=== PATIENT | male | born 1940 | race Caucasian/White ===

== ENCOUNTER 2016-11-13 05:11 | Day surgery (SDC) | payer OTHER, MEDICARE ==
[2016-11-04 16:58] VITALS: BMI 31.3
[2016-11-13] MEDS ORDERED: LIDOCAINE HCL/PF 2% SDV 5ML VIAL ONE (12:36)
[2016-11-13] MEDS ORDERED: PROPOFOL 20 ML ONE (12:37)
[2016-11-13] MEDS ORDERED: ceFAZolin SODIUM 1 GM VIAL ONE (12:38)
[2016-11-13] MEDS ORDERED: ceFAZolin SODIUM 1 GM VIAL IVPB ONE (12:38)
[2016-11-13] MEDS ORDERED: oxyCODONE HCL 5 MG TABLET PO PRN (13:04)
[2016-11-13] MEDS ORDERED: ONDANSETRON 4 MG/2 ML VIAL IVPUSH PRN (13:04)
--- NOTE | 2016-11-13 13:09 | OP ---
Operative Note - Note: Operative Date: 11/13/16 Pre-Operative Diagnosis: Hematuria, Urethral Stricture, Ca of prostate Operation: Cysto and urethral dilatation Findings: Severe urethral stricture in the bulbar urethra Post-Operative Diagnosis: Same as Pre-op Surgeon: He Garcia Anesthesia: General Drains & Tubes with Location: 18 F bishop Operative Report Dictated: Yes
[2016-11-13] MEDS ORDERED: LACTATED RINGERS SOLUTION 1,000 ML IV SCH (13:15)
[2016-11-13 13:24] VITALS: TEMP 98
[2016-11-13 14:55] VITALS: PULSE 60
[2016-11-13 16:23] VITALS: BP 136/57
--- NOTE | 2016-11-14 11:16 | OP ---
DATE OF OPERATION: 11/13/2016 SURGEON: He Garcia MD ANESTHESIA: General. PREOPERATIVE DIAGNOSES: Gross hematuria, urethral stricture, carcinoma of the prostate, post-radiation cystitis. POSTOPERATIVE DIAGNOSES: Gross hematuria, urethral stricture, carcinoma of the prostate, post-radiation cystitis. PROCEDURE: Cystoscopy, urethral dilatation, and Banegas catheter . FINDINGS: Urethral meatus normal. Anterior urethra normal. Severe stricture of the bulbar urethra noted. Prostate is quite enlarged. Severe hemorrhagic prostatitis noted with multiple areas of bleeding. Bladder shows areas of trabeculation with cystitic changes. Occasionally, the bleeding was quite heavy. Visualization was very poor. Ureteral orifices normally located with clear efflux. DESCRIPTION OF PROCEDURE: Patient, in lithotomy position, under anesthesia, was prepped and draped in the usual manner. Cystoscopy performed, and the stricture was noted. Then, with sounds, urethra dilated up to 26-Jamaican in size. Then, cystoscopy was performed again. Multiple areas of bleeding noted from the prostatic urethra. Severe hemorrhagic prostatitis noted. The instruments were withdrawn. The Banegas was left indwelling. Patient tolerated the procedure well, left the operating room in satisfactory condition. HE GARCIA M.D. ROB/[id number]
== END 2016-11-13 15:55 | disposition home or self-care (01) ==
LOC: JASU-SURG 05:11
PROVIDERS: ATTEND Urology
PROC: 0T7D8ZZ Dilation of Urethra, Via Natural or Artificial Opening Endoscopic (ICD-10-PCS; principal; 2016-11-13 12:00)
DX: N35.9 Urethral stricture, unspecified (principal); C61 Malignant neoplasm of prostate; N30.41 Irradiation cystitis with hematuria; N32.89 Other specified disorders of bladder
CPT/HCPCS: 94760

== ENCOUNTER 2017-07-23 09:03 | Day surgery (SDC) | payer OTHER, MEDICARE ==
[2017-07-22 10:13] VITALS: BMI 31.0
[2017-07-23 09:32] LABS: INR 1.11 (0.82-1.09); PROTHROMBIN TIME (PATIENT) 12.5 SEC (9.98-11.88)
[2017-07-23] MEDS ORDERED: MIDAZOLAM HCL 2 MG/2 ML SINGLE DOSE VIAL ONE (11:47)
[2017-07-23] MEDS ORDERED: ceFAZolin SODIUM 1 GM VIAL IVPB ONE (11:50)
[2017-07-23] MEDS ORDERED: PROPOFOL 20 ML ONE (11:51)
[2017-07-23] MEDS ORDERED: SUCCINYLCHOLINE CHLORIDE 200 MG/10 ML VIAL ONE (11:51)
[2017-07-23] MEDS ORDERED: ceFAZolin SODIUM 1 GM VIAL ONE (11:59)
[2017-07-23] MEDS ORDERED: LIDOCAINE HCL/PF 2% SDV 5ML VIAL ONE (11:59)
[2017-07-23] MEDS ORDERED: DEXAMETHASONE SOD PHOSPHATE 4 MG/1 ML VIAL ONE (11:59)
[2017-07-23] MEDS ORDERED: BUPIVACAINE HCL/PF 0.5% (5MG/ML) 10 ML VIAL IJ ONE ×2 (12:07→12:37)
[2017-07-23] MEDS ORDERED: BACITRACIN 15 GM TUBE TOPICAL OINTMENT ONE ×2 (12:32→15:03)
[2017-07-23] MEDS ORDERED: ONDANSETRON 4 MG/2 ML VIAL IVPUSH PRN (12:41)
[2017-07-23] MEDS ORDERED: PROMETHAZINE HCL 25 MG/1 ML VIAL IVPUSH PRN (12:41)
[2017-07-23] MEDS ORDERED: oxyCODONE HCL 5 MG TABLET PO PRN (12:41)
[2017-07-23] MEDS ORDERED: LACTATED RINGERS SOLUTION 1,000 ML IV SCH (12:45)
--- NOTE | 2017-07-23 12:53 | OP ---
Operative Note - Note: Operative Date: 07/23/17 Pre-Operative Diagnosis: Phimosis Operation: Circumcision Findings: Severe Phimosis Post-Operative Diagnosis: Same as Pre-op Surgeon: He Garcia Anesthesia: General Specimens Removed: Foreskin Operative Report Dictated: Yes
--- NOTE | 2017-07-23 13:55 | OP ---
DATE OF OPERATION: 07/23/2017 SURGEON: He Garcia MD ANESTHESIA: General. PREOPERATIVE DIAGNOSIS: Severe degree of phimosis with balanitis. POSTOPERATIVE DIAGNOSIS: Severe degree of phimosis with balanitis. PROCEDURE: Circumcision. FINDINGS: Severe degree of phimosis noted. A ventral dorsal slit has to be performed to pull the foreskin away from the glans penis. DESCRIPTION OF PROCEDURE: Patient in supine position under general anesthesia was prepped and draped in the usual manner. A skin incision was made around the jimenez. Dorsal slit was performed and the excess prepuce was removed a centimeter away from the mucocutaneous junction. All the bleeding points were electrocoagulated. Then, a frenulectomy was performed, and the wound was approximated using 3-0 plain catgut. Bacitracin dressing applied. Patient was given Marcaine at the end. A pressure dressing was applied. Patient tolerated the procedure well, left the operating room in a satisfactory condition. Thiago ANDRADE/[id number]
[2017-07-23 15:41] VITALS: BP 121/67; TEMP 97.8
[2017-07-23 15:43] VITALS: PULSE 67
--- NOTE | 2017-07-25 09:00 | PATH ---
Surgical Pathology Report Patient Name: LYLE ANSARI Med. Rec. #: [id number] /Age/Gender: 1940 (Age: 77) / M Account: [id number] Location: [facility] Taken: 07/23/2017 Received: 07/23/2017 Reported: 07/25/2017 Physicians: He Garcia M.D. Specimen(s) Received FORESKIN Clinical History Phimosis Final Diagnosis FORESKIN, CIRCUMCISION: FORESKIN WITH CHRONIC INFLAMMATION CONSISTENT WITH PHIMOSIS. Electronically Signed Jarad Hirsch M.D. Gross Description Received in formalin labeled "foreskin," is a 4.3 x 3.2 x 0.5 cm casiano, irregular, wrinkled portion of skin, consistent with foreskin. No discrete epidermal lesions are identified. Hazmat Cdl Driver sections are submitted in one cassette. /07/23/201707/23/2017
== END 2017-07-23 15:20 | disposition home or self-care (01) ==
LOC: JASU-SURG 09:03
PROVIDERS: ATTEND Urology
PROC: 0VTTXZZ Resection of Prepuce, External Approach (ICD-10-PCS; principal; 2017-07-23 11:00)
DX: N47.1 Phimosis (principal); N48.1 Balanitis
CPT/HCPCS: 36415; 85610; 88304-TC; 94760

== ENCOUNTER 2017-11-30 12:04 | Inpatient (IN) | payer OTHER, MEDICARE ==
--- NOTE | 2017-11-30 12:16 | PDOC ---
History of Present Illness - General Chief Complaint: Pain, Acute Stated Complaint: ABDOMINAL PAIN/blood in bishop catherer Time Seen by Provider: 11/30/17 12:15 - History of Present Illness Initial Comments: 11/30/17 13:01 The patient is a 77 year old male with a history of HTN, HLD, CAD, Prostate cancer, urethral stricture who presents for evaluation of abdominal pain. The patient report acute onset worsening lower abdominal pain beginning around 5am this morning prompting his presentation to the ED for further evaluation. His notes that his bishop catheter had not been draining since the oil inspector. The patient notes that his catheter has been clogged before, but he has never experience pain this severe before. He otherwise denies fevers, chills, SOB, chest pain, nausea, vomiting or changes with bowel movements. Past History - Past Medical History Allergies/Adverse Reactions: Allergies Allergy/AdvReac Type Severity Reaction Status Date / Time strawberry Allergy Severe Swelling Verified 11/30/17 12:25 pepper (genus Capsicum) Allergy Unknown Verified 11/30/17 12:25 iohexol [From Omnipaque] Allergy Rash Verified 11/30/17 12:25 Home Medications: Ambulatory Orders Clopidogrel Bisulfate [Plavix -] 75 mg PO DAILY #0 tablet 08/11/12 Aspirin [ASA -] 81 mg PO DAILY #0 tab.chew 09/03/12 Folic Acid 1 mg PO DAILY 11/04/16 Acetaminophen [Tylenol .Regular Strength -] 650 mg PO Q6H 11/07/17 Tamsulosin HCl [Flomax] 0.4 mg PO DAILY 11/07/17 Atorvastatin Ca [Lipitor] 10 mg PO HS #30 tablet 11/25/17 Carvedilol [Coreg -] 3.125 mg PO BID #30 tablet 11/25/17 Clotrimazole/Betamet Diprop [Lotrisone -] 1 applic TP BID #1 tube 11/25/17 Furosemide [Lasix -] 20 mg PO DAILY #30 tablet 11/25/17 Hydrocortisone 2.5% Topical Cr [Anusol-Hc -] 1 applic TP BID #1 tube 11/25/17 Lidocaine 2% Jelly [Xylocaine 2% Jelly] 1 applic TP Q24H PRN #1 applic 11/25/17 Lisinopril [Prinivil] 2.5 mg PO DAILY #30 tablet 11/25/17 Phenazopyridine HCl [Pyridium -] 100 mg PO TID #60 tablet 11/25/17 Polyethylene Glycol 3350 [Miralax 119 gm Btl -] 17 gm PO DAILY #1 bottle Sennosides [Senna -] 2 tab PO HS PRN #30 tablet 11/25/17 Warfarin Na [Coumadin -] 5 mg PO DAILY@1800 #30 tablet 11/25/17 Anemia: No Asthma: No Cancer: Yes (PROSTATE CANCER 2011) Cardiac Disorders: Yes (coronary artery disease, cardiac bypass 10 years ago, Afib) CVA: No COPD: No CHF: No Dementia: No Diabetes: No GI Disorders: No Disorders: Yes (STONES, chronic UTIs) HTN: Yes Hypercholesterolemia: Yes Kidney Stones: Yes Liver Disease: No Seizures: No Thyroid Disease: No - Surgical History Abdominal Surgery: No Appendectomy: No Cardiac Surgery: Yes (open heart, 2 stents) Cholecystectomy: No Lung Surgery: No Neurologic Surgery: No Orthopedic Surgery: No - Immunization History Immunization Up to Date: Yes - Suicide/Smoking/Psychosocial Hx Smoking Status: Yes Smoking History: Former smoker Have you smoked in the past 12 months: No Number of Cigarettes Smoked Daily: 0 If you are a former smoker, when did you quit?: 12 YRS AGO 'Breaking Loose' booklet given: 11/10/17 Hx Alcohol Use: No Drug/Substance Use Hx: No Substance Use Type: None Hx Substance Use Treatment: No Review of Systems - Review of Systems Comments:: 11/30/17 13:06 Constitutional: No fevers, chills, fatigue, malaise HEENT: No Rhinorrhea, nasal congestion, visual changes Cardiovascular: No chest pain, syncope, palpitations, lightheadedness Respiratory: No Cough, SOB, Hemoptysis, Gastrointestinal: Lower abdominal pain. No Nausea, Vomiting, Constipation, Diarrhea, Melena Genitourinary: Inability to urinate, Hematuria. No Dysuria, Frequency, Urgency , Hesitancy, Flank pain Musculoskeletal: No Myalgia, arthralgia Skin: No rashes, itching, bruising, pallor Neurologic: No Headache, Dizziness, Numbness, Weakness, or Tingling Psychiatric: No Hallucinations. No SI or HI *Physical Exam - Physical Exam Comments: 11/30/17 13:07 General Appearance: Nourished. In Apparent Distress HEENT: No Pharyngeal Erythema, Tonsillar Exudate, Tonsillar Erythema Neck: No Cervical Lymphadenopathy Respiratory/Chest: Lungs Clear, Normal Breath Sounds. No Crackles, Rales, Rhonchi, Wheezing Cardiovascular: Regular Rhythm, Regular Rate. No Murmur, Gallops, Rubs Gastrointestinal/Abdominal: Normal Bowel Sounds, Soft. Diffuse discomfort with palpation with tenderness to palpation suprapubically with guarding. No Rebound , Musculoskeletal: No CVA Tenderness Extremity: Normal Capillary Refill Integumentary: Normal Color, Dry, Warm Neurologic: Fully Oriented, Alert, Normal Mood/Affect, Normal Response, ED Treatment Course - LABORATORY CBC & Chemistry Diagram: 11/30/17 13:00 11/30/17 13:05 Medical Decision Making - Medical Decision Making 11/30/17 13:08 The patient is a 77 year old male with a history of HTN, HLD, CAD, Prostate cancer, urethral stricture who presents for evaluation of abdominal pain. Bedside US demonstrates a significant amount of retained urine with a distended bladder. The patient's bishop catheter was flushed with a significant amount of clots removed. 800-900 ccs of urine drained to the bishop bag after flushing with significant improvement in the patient's symptoms. It is likely the patient's symptoms were due to urinary retention from a clogged bishop catheter. The patient is on coumadin and plavix and he has significant hematuria. We will obtain a cbc, cmp, coags, ua to evaluate further. We will continue to monitor and reassess while here in the ED. 11/30/17 14:44 CBC, cmp are unremarkable. Coags demonstrates an elevated INR to 3.41. The patient's catheter became clogged again and was again flushed and clots removed. We discussed the case with Urology who recommended that the patient's bishop catheter be replaced. However, we are not comfortable replacing the patient's catheter here in the ER given his persistent gross hematuria and persistent clot formation and given that we are able to flush the patient's catheter through his current bishop. Given the patient's persistent pain, we will observe the patient in the hospital overnight. We discussed the case with the admitting team who accepted the patient for observation admission. 11/30/17 16:18 The patient continued to develop clots and clog within the patient's current bishop with increasing difficulty flushing the patient's catheter. We successfully replaced the patient's bishop catheter with a 3 way bishop catheter and have started bladder irrigation at the request of urology. *DC/Admit/Observation/Transfer Diagnosis at time of Disposition: Stricture of bladder neck, Urinary retention Hematuria Qualifiers: Hematuria type: gross Qualified Code(s): R31.0 - Gross hematuria - Discharge Dispostion Condition at time of disposition: Stable Decision to Admit order: Yes - Referrals - Patient Instructions - Post Discharge Activity
--- NOTE | 2017-11-30 13:07 | PDOC ---
Attending Attestation - Resident Resident Name: Jef Martini - ED Attending Attestation I have performed the following: I have examined & evaluated the patient, The case was reviewed & discussed with the resident, I agree w/resident's findings & plan, Exceptions are as noted - HPI HPI: 11/30/17 13:23 The patient is a 77 year old male, with a significant past medical history of HTN, HLD, CAD, Prostate cancer, urethral stricture, recent admission for sepsis with ICU stay (DC 5 days ago with diaz) who presents to the emergency department with lower abdominal pain. As per patient, his symptoms onset at 5am this morning. As per patients , his diaz catheter has not been draining since this morning, she reports previous episodes of his catheter not draining. He denies any previous episode being as intense in nature. He reports associated hematuria. Pt takes coumadin and plavix. He denies any recent fevers, chills, headache or dizziness. He denies any recent nausea, vomit, diarrhea or constipation. He denies any recent chest pain or shortness of breath. He denies any recent dysuria, frequency, or urgency. Allergies: strawberry, pepper, iohexol Primary Care Physician: Dr. Benavides Urologist: Dr. Garcia - Physicial Exam PE: 11/30/17 13:24 agree with resident exam - Medical Decision Making 11/30/17 13:05 77yo M with MMP including recent admission for sepsis after ureteral stricture procedure, on coumadin and plavix presents to the ED with clogged diaz catheter with BRB into catheter. Diaz flushed and now has drained ~900cc of bloody urine. Will check UA for infection, labs, and consult urology. 11/30/17 14:40 INR elevated to 3.4, pt should skip coumadin today Diaz clotted off again, was flushed again and now draining Dr. Fink (covering for Dr. Leong) c/s by Dr. Martini for management of diaz, asked if we could replace it, but we are hesitant to replace diaz given recent ureteral stricture. Will discuss again. 11/30/17 15:[address] Fink who recommends we try to replace the diaz with a 3 way catheter and start cbi. He states the ureteral stricture should not be an issue as he was dilated. We will try to replace the diaz with a 3 way catheter but if we are unsuccessful, Dr. Fink will come in to replace it. Heart Score/ECG Review #1 11/30/17 14:54 Twelve-lead EKG was performed and reviewed by me. Normal sinus rhythm, rate 83. Normal axis. No ST elevations. One to [address] depressions in 1, aVL, V5, V6. When compared to EKG from 11/19/2017, no significant change.
[2017-11-30 13:16] LABS: EOS % 0.1 % (0-4.5); HEMATOCRIT 33.4 % (35.4-49); LYMPH % 2.6 % (8-40); MCH 32.7 pg (25.7-33.7); MEAN CELL VOLUME 99.2 fl (80-96); MEAN PLT VOLUME 7.9 fl (7.5-11.1); MONO % 8.3 % (3.8-10.2); PLATELET COUNT 323 K/MM3 (134-434); RBC 3.37 M/mm3 (4.00-5.60); RDW 14.3 % (11.9-15.9); URINE APPEARANCE CLOUDY; URINE BILIRUBIN NEGATIVE (<2.0 mg/dL); URINE COLOR RED; URINE GLUCOSE (UA) 1+ (NEGATIVE); URINE KETONE TRACE (NEGATIVE); URINE LEUK ESTERASE NEGATIVE (NEGATIVE); URINE NITRITE NEGATIVE (NEGATIVE); URINE UROBILINOGEN NEGATIVE mg/dL (0.2-1.0); WHITE BLOOD COUNT 12.6 K/mm3 (4.0-10.0)
[2017-11-30 13:20] LABS: URINE PROTEIN 3+ (NEGATIVE)
[2017-11-30] MEDS ORDERED: SODIUM CHLORIDE 0.9% 1000 ML INFUS.BAG IV ONE (13:21)
[2017-11-30 13:34] LABS: ALBUMIN 3.4 g/dl (3.4-5.0); ALK PHOS 157 U/L (45-117); ANION GAP 14 (8-16); BILIRUBIN,TOTAL 0.8 mg/dL (0.2-1.0); BLOOD UREA NITROGEN 21 mg/dL (7-18); CALCIUM 9.2 mg/dL (8.5-10.1); CHLORIDE 108 mmol/L (98-107); CO2 19 mmol/L (21-32); CREATININE 1.2 mg/dL (0.7-1.3); GLUCOSE,RANDOM 140 mg/dL (74-106); POTASSIUM 4.4 mmol/L (3.5-5.1); SGOT/AST 21 U/L (15-37); SGPT/ALT 26 U/L (12-78); SODIUM 141 mmol/L (136-145); TOT PROT 6.5 g/dl (6.4-8.2)
[2017-11-30 13:43] LABS: PROTHROMBIN TIME (PATIENT) 38.5 SEC (9.7-13.0)
[2017-11-30 13:45] LABS: ACTIVATED PTT 37.9 SECONDS (25.2-36.5)
[2017-11-30 13:47] LABS: INR 3.41 (0.83-1.09)
[2017-11-30] MEDS ORDERED: morphine SULFATE 4 MG/ML VIAL IVPUSH ONE (17:15)
[2017-11-30] MEDS ORDERED: POLYETHYLENE GLYCOL 3350 119 GM BTL PO PRN (18:05)
--- NOTE | 2017-11-30 18:39 | HOSP ---
Subjective - Review of Symptoms Events since last encounter: Nurse called MD to get help with irrigation of bladder after the urine catheter was clot and stop drianage pt was screaming of pain 10/10 Morphine 4 mg IV push was giben and 2 mg IV Q4hr PRN was ordered clots were removed by irrigation and suctioning and pt pain was relifed Nurse informed the urologist and the primary. Mook shaikh MD PGY2 Attending Dr Sinclair Physical Examination Vital Signs: Vital Signs Temperature 98.2 F 11/30/17 18:00 Pulse Rate 96 H 11/30/17 18:00 Respiratory Rate 20 11/30/17 18:00 Blood Pressure 114/48 11/30/17 18:00 O2 Sat by Pulse Oximetry (%) 99 11/30/17 15:00 Labs: CBC, BMP 11/30/17 13:00 11/30/17 13:05 Visit type - Emergency Visit Emergency Visit: Yes ED Registration Date: 11/30/17 Care time: The patient presented to the Emergency Department on the above date and was hospitalized for further evaluation of their emergent condition. - New Patient This patient is new to me today: Yes Date on this admission: 11/30/17 - Critical Care Critical Care patient: No
--- NOTE | 2017-11-30 18:50 | PN ---
Progress Note (short form) - Note Progress Note: UROLOGY NOTE. pt. with h/o bishop catheter after a urethral dilation last wk. he presents with gross,totel,painless hematutia.pt. on ac with a inr of 3.4 sugg.bishop with 3way and cbi with ns wide open. sugg. stopping ac in mean time.will f/u with you.
[2017-11-30] MEDS: ACETAMINOPHEN 325 MG TABLET (FP) PO SCH ×2 (19:05→23:41)
[2017-11-30] MEDS: MORPHINE SULFATE 2 MG/ML VIAL IVPUSH PRN (21:16)
[2017-11-30] MEDS ORDERED: SENNOSIDES 8.6MG TABLET (FP) PO PRN (22:00)
[2017-11-30] MEDS: CARVEDILOL 3.125 MG TABLET (FP) PO SCH (22:53)
[2017-11-30] MEDS: ATORVASTATIN CA 10 MG TABLET (FP) PO SCH (22:53)
[2017-12-01] MEDS ORDERED: MORPHINE SULFATE 2 MG/ML VIAL IVPUSH ONE (00:38)
[2017-12-01] MEDS: ACETAMINOPHEN 325 MG TABLET (FP) PO SCH ×3 (05:51→17:26)
[2017-12-01] MEDS: MORPHINE SULFATE 2 MG/ML VIAL IVPUSH PRN ×2 (06:36→11:18)
[2017-12-01 07:02] LABS: HEMATOCRIT 25.8 % (35.4-49); HEMOGLOBIN 8.8 GM/dL (11.7-16.9); MCH 34.1 pg (25.7-33.7); MCHC 34.2 g/dl (32.0-35.9); MEAN CELL VOLUME 99.6 fl (80-96); MEAN PLT VOLUME 8.2 fl (7.5-11.1); PLATELET COUNT 257 K/MM3 (134-434); RBC 2.59 M/mm3 (4.00-5.60); RDW 14.3 % (11.9-15.9); WHITE BLOOD COUNT 9.1 K/mm3 (4.0-10.0)
[2017-12-01 07:24] LABS: ALBUMIN 2.8 g/dl (3.4-5.0); ANION GAP 8 (8-16); BILIRUBIN,TOTAL 0.6 mg/dL (0.2-1.0); BLOOD UREA NITROGEN 24 mg/dL (7-18); CALCIUM 8.7 mg/dL (8.5-10.1); CHLORIDE 110 mmol/L (98-107); CO2 25 mmol/L (21-32); CREATININE 0.9 mg/dL (0.7-1.3); GLUCOSE,RANDOM 110 mg/dL (74-106); POTASSIUM 4.2 mmol/L (3.5-5.1); SGOT/AST 22 U/L (15-37); SGPT/ALT 28 U/L (12-78); SODIUM 143 mmol/L (136-145); TOT PROT 5.5 g/dl (6.4-8.2)
[2017-12-01 07:25] LABS: ALK PHOS 148 U/L (45-117)
[2017-12-01 07:40] LABS: PROTHROMBIN TIME (PATIENT) 47.9 SEC (9.7-13.0)
[2017-12-01 08:26] LABS: INR 4.24 (0.83-1.09)
[2017-12-01] MEDS ORDERED: TAMSULOSIN HCL 0.4 MG CAP.ER.24H (FP) PO SCH (08:30)
[2017-12-01] MEDS: CARVEDILOL 3.125 MG TABLET (FP) PO SCH ×2 (09:01→21:24)
[2017-12-01] MEDS ORDERED: CLOPIDOGREL BISULFATE 75 MG TABLET (FP) PO SCH (10:00)
[2017-12-01] MEDS ORDERED: FOLIC ACID 1 MG TABLET (FP) PO SCH (10:00)
[2017-12-01] MEDS ORDERED: FUROSEMIDE 20 MG TABLET (FP) PO SCH (10:00)
[2017-12-01] MEDS ORDERED: ASPIRIN 81 MG CHEWABLE TABLETS PO SCH (10:00)
[2017-12-01] MEDS ORDERED: LISINOPRIL 5 MG TABLET (FP) PO SCH (10:00)
[2017-12-01] MEDS ORDERED: morphine SULFATE 4 MG/ML VIAL IVPUSH ONE (11:58)
--- NOTE | 2017-12-01 12:02 | HP ---
Admitting History and Physical - Primary Care Physician PCP: Celine Goldberg - Admission History of Present Illness: patient well known to me from recent admission. Chart reviewed Pt is a 77 yr old man with PMHx CAD, CABG, s//p LCx stent 2014, PAD (s/p L SFA angioplasty 09/2017), HTN, hyperlipidemia, now admitted for Abdominal pain---- passing blood clots--- irrigated--Banegas--CBI Placed Aspirin Plavix and Coumadin held admitted 2 floor Patient seen and examined today In moderate to severe pain--just got morphine 2 mg dose. History Source: Patient Limitations to Obtaining History: No Limitations - Past Medical History Cardiovascular: Yes: AFIB, CAD, CHF, HTN, Hyperlipdemia, Other (PVD, CAD, Coronary Bypass, CAD, Stent lower left leg) Gastrointestinal: Yes: GERD Musculoskeletal: Yes: Osteoarthritis (Chronic Lower back pain), Other (OA) - Past Surgical History Past Surgical History: Yes: CABG, Stent (stents, both cardiac and LLE) - Smoking History Smoking history: Former smoker Have you smoked in the past 12 months: No Aproximately how many cigarettes per day: 0 If you are a former smoker, when did you quit?: 12 YRS AGO - Alcohol/Substance Use Hx Alcohol Use: No History of Substance Use: reports: None - Social History ADL: Independent History of Recent Travel: No Home Medications - Allergies Allergies/Adverse Reactions: Allergies Allergy/AdvReac Type Severity Reaction Status Date / Time strawberry Allergy Severe Swelling Verified 11/30/17 12:25 pepper (genus Capsicum) Allergy Unknown Verified 11/30/17 12:25 iohexol [From Omnipaque] Allergy Rash Verified 11/30/17 12:25 - Home Medications Home Medications: Ambulatory Orders Clopidogrel Bisulfate [Plavix -] 75 mg PO DAILY #0 tablet 08/11/12 Aspirin [ASA -] 81 mg PO DAILY #0 tab.chew 09/03/12 Folic Acid 1 mg PO DAILY 11/04/16 Acetaminophen [Tylenol .Regular Strength -] 650 mg PO Q6H 11/07/17 Tamsulosin HCl [Flomax] 0.4 mg PO DAILY 11/07/17 Atorvastatin Ca [Lipitor] 10 mg PO HS #30 tablet 11/25/17 Carvedilol [Coreg -] 3.125 mg PO BID #30 tablet 11/25/17 Clotrimazole/Betamet Diprop [Lotrisone -] 1 applic TP BID #1 tube 11/25/17 Furosemide [Lasix -] 20 mg PO DAILY #30 tablet 11/25/17 Hydrocortisone 2.5% Topical Cr [Anusol-Hc -] 1 applic TP BID #1 tube 11/25/17 Lidocaine 2% Jelly [Xylocaine 2% Jelly] 1 applic TP Q24H PRN #1 applic 11/25/17 Lisinopril [Prinivil] 2.5 mg PO DAILY #30 tablet 11/25/17 Phenazopyridine HCl [Pyridium -] 100 mg PO TID #60 tablet 11/25/17 Polyethylene Glycol 3350 [Miralax 119 gm Btl -] 17 gm PO DAILY #1 bottle Sennosides [Senna -] 2 tab PO HS PRN #30 tablet 11/25/17 Warfarin Na [Coumadin -] 5 mg PO DAILY@1800 #30 tablet 11/25/17 Family Disease History - Family Disease History Family Disease History: Heart Disease: Brother (hear disease), CA: Father ( hodgkins) Review of Systems - Review of Systems Eyes: reports: No Symptoms HENT: reports: No Symptoms Neck: reports: No Symptoms Cardiovascular: reports: No Symptoms Respiratory: reports: No Symptoms Gastrointestinal: reports: Abdominal Pain Genitourinary: reports: Hematuria, Pain Musculoskeletal: reports: No Symptoms Neurological: reports: No Symptoms Hematology/Lymphatic: reports: No Symptoms Psychiatric: reports: No Symptoms Pain Intensity: 10 Physical Examination Vital Signs: Vital Signs Temperature 98.3 F 12/01/17 06:00 Pulse Rate 67 12/01/17 06:00 Respiratory Rate 20 12/01/17 06:00 Blood Pressure 110/66 12/01/17 06:00 O2 Sat by Pulse Oximetry (%) 99 11/30/17 21:00 Constitutional: Yes: Moderate Distress Eyes: Yes: Conjunctiva Clear Neck: Yes: Supple Cardiovascular: Yes: Regular Rate and Rhythm Respiratory: Yes: CTA Bilaterally Gastrointestinal: Yes: Soft Renal/: Yes: Banegas Present, Other (cbi) Edema: No Neurological: Yes: Alert Labs: CBC, BMP 12/01/17 05:50 12/01/17 05:50 Imaging - Results EKG: Report Reviewed Problem List - Problems (1) Hematuria Code(s): R31.9 - HEMATURIA, UNSPECIFIED Qualifiers: Hematuria type: gross Qualified Code(s): R31.0 - Gross hematuria (2) Stricture of bladder neck Code(s): N32.0 - BLADDER-NECK OBSTRUCTION (3) Urinary retention Code(s): R33.9 - RETENTION OF URINE, UNSPECIFIED (4) Anxiety Code(s): F41.9 - ANXIETY DISORDER, UNSPECIFIED (5) Atrial fibrillation Code(s): I48.91 - UNSPECIFIED ATRIAL FIBRILLATION (6) History of coronary artery stent placement Code(s): Z95.5 - PRESENCE OF CORONARY ANGIOPLASTY IMPLANT AND GRAFT (7) Hx of CABG Code(s): Z95.1 - PRESENCE OF AORTOCORONARY BYPASS GRAFT (8) Obesity Code(s): E66.9 - OBESITY, UNSPECIFIED Assessment/Plan pain control will give extra 2 mg morphine does Change morphine to 4 mg every 3 hours when necessary Discussed with the urology--- will come to see patient right away Continue irrigation monitor labs Hold anticoagulation Antibiotics We'll also consult cardiology to follow Will consult ID also Will follow discussed with nursing staff Also
--- NOTE | 2017-12-01 14:07 | EKG ---
Test Reason : Blood Pressure : / mmHG Vent. Rate : 083 BPM Atrial Rate : 083 BPM P-R Int : 172 ms QRS Dur : 116 ms QT Int : 416 ms P-R-T Axes : -01 002 114 degrees QTc Int : 488 ms NORMAL SINUS RHYTHM INCOMPLETE LEFT BUNDLE BRANCH BLOCK ABNORMAL ECG WHEN COMPARED WITH ECG OF 19-NOV-2017 11:46, PREMATURE VENTRICULAR COMPLEXES ARE NO LONGER PRESENT Confirmed by NANCY TANNER MD ([id number]) on 12/01/2017 2:07:00 PM Referred By: Confirmed By:NANCY TANNER MD
[2017-12-01] MEDS ORDERED: cefTRIAXone SODIUM 1 GM VIAL ONE (14:44)
[2017-12-01] MEDS ORDERED: DEXTROSE 5%-WATER - 50 ML IVPB ONE (14:44)
[2017-12-01] MEDS ORDERED: CEFTRIAXONE 1 GM in DEXTROSE 5%-WATER - 50 ML IVPB SCH (14:45)
[2017-12-01] MEDS: morphine SULFATE 4 MG/ML VIAL IVPUSH PRN ×2 (18:00→21:25)
--- NOTE | 2017-12-01 18:36 | CON.CARD ---
Consult Consult Specialty:: cardiology Reason for Consultation:: CAD; AF; acute bleed - History of Present Illness Chief Complaint: A&Ox3; had intense pain suprapubic when trying to urinate1/2 hour ago.No chest pain. History of Present Illness: The patient is a 77 year old white male (rajiv Owusu) with a history of CAD--> CABG; LCx DEStent 2014, angioplasty LLE 2017, mild systolic LV dysfunction, HTN , HLD,, Prostate cancer, urethral stricture (admitted 11/10/17 for stricture; found to have collection of pus, with ensuing septic shock and transient EKG STT changes,) who presents for evaluation of abdominal pain. The patient report acute onset worsening lower abdominal pain beginning around 5am this morning, prompting his presentation to the ED for further evaluation. 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 The patient notes that his catheter has been clogged before, but he has never experienced pain this severe before. He otherwise denies fevers, chills, SOB, chest pain, nausea, vomiting or changes with bowel movements. - History Source History Provided By: Patient, Family Member, Medical Record Limitations to Obtaining History: No Limitations - Past Medical History Cardio/Vascular: Yes: AFIB, CAD, CHF, HTN, Hyperlipdemia, Other (PVD, CAD, Coronary Bypass, CAD, Stent lower left leg) Gastrointestinal: Yes: GERD Heme/Onc: Yes: Anemia Musculoskeletal: Yes: Osteoarthritis (Chronic Lower back pain) - Past Surgical History Past Surgical History: Yes: CABG, Stent (stents, both cardiac and LLE) - Alcohol/Substance Use Hx Alcohol Use: No History of Substance Use: reports: None - Smoking History Smoking history: Former smoker Have you smoked in the past 12 months: No Aproximately how many cigarettes per day: 0 If you are a former smoker, when did you quit?: 12 YRS AGO - Social History Usual Living Arrangement: With Spouse ADL: Independent History of Recent Travel: No Home Medications - Allergies Allergies/Adverse Reactions: Allergies Allergy/AdvReac Type Severity Reaction Status Date / Time strawberry Allergy Severe Swelling Verified 11/30/17 12:25 pepper (genus Capsicum) Allergy Unknown Verified 11/30/17 12:25 iohexol [From Omnipaque] Allergy Rash Verified 11/30/17 12:25 - Home Medications Home Medications: Ambulatory Orders Clopidogrel Bisulfate [Plavix -] 75 mg PO DAILY #0 tablet 08/11/12 Aspirin [ASA -] 81 mg PO DAILY #0 tab.chew 09/03/12 Folic Acid 1 mg PO DAILY 11/04/16 Acetaminophen [Tylenol .Regular Strength -] 650 mg PO Q6H 11/07/17 Tamsulosin HCl [Flomax] 0.4 mg PO DAILY 11/07/17 Atorvastatin Ca [Lipitor] 10 mg PO HS #30 tablet 11/25/17 Carvedilol [Coreg -] 3.125 mg PO BID #30 tablet 11/25/17 Clotrimazole/Betamet Diprop [Lotrisone -] 1 applic TP BID #1 tube 11/25/17 Furosemide [Lasix -] 20 mg PO DAILY #30 tablet 11/25/17 Hydrocortisone 2.5% Topical Cr [Anusol-Hc -] 1 applic TP BID #1 tube 11/25/17 Lidocaine 2% Jelly [Xylocaine 2% Jelly] 1 applic TP Q24H PRN #1 applic 11/25/17 Lisinopril [Prinivil] 2.5 mg PO DAILY #30 tablet 11/25/17 Phenazopyridine HCl [Pyridium -] 100 mg PO TID #60 tablet 11/25/17 Polyethylene Glycol 3350 [Miralax 119 gm Btl -] 17 gm PO DAILY #1 bottle Sennosides [Senna -] 2 tab PO HS PRN #30 tablet 11/25/17 Warfarin Na [Coumadin -] 5 mg PO DAILY@1800 #30 tablet 11/25/17 Family Disease History - Family Disease History Family Disease History: Heart Disease: Brother (hear disease), CA: Father ( hodgkins) Review of Systems - Review of Systems Constitutional: reports: Weakness Eyes: reports: No Symptoms HENT: reports: No Symptoms Neck: reports: No Symptoms Cardiovascular: reports: Chest Pain (mild-moderate, left anterior chest wall, "dull ache", constant) Genitourinary: reports: Dysuria, Hematuria, Urgency Musculoskeletal: reports: Muscle Weakness Neurological: reports: Weakness Hematology/Lymphatic: reports: Other ( bleed) - Risk Factors Known Risk Factors: Yes: Age, Gender, Hypercholesterolemia, Hypertension, Physical Inactivity, Other (CAD/ s/p CABG and PCI; PAD; PAF) Vital Signs: Vital Signs Temperature 97.7 F 12/01/17 15:00 Pulse Rate 70 12/01/17 15:00 Respiratory Rate 20 12/01/17 15:00 Blood Pressure 112/64 12/01/17 15:00 O2 Sat by Pulse Oximetry (%) 99 12/01/17 10:00 Constitutional: Yes: Anxious, Mild Distress Eyes: Yes: WNL HENT: Yes: WNL Neck: Yes: WNL Respiratory: Yes: Regular Gastrointestinal: Yes: Soft Renal/: Yes: Bishop Present Cardiovascular: Yes: Regular Rate and Rhythm JVD: No Carotid Bruit: No PMI: Displaced Heart Sounds: Yes: S1, Split S2 Musculoskeletal: Yes: Muscle Weakness Extremities: Yes: Cool Edema: No Peripheral Pulses WNL: No Peripheral Pulses: 1+ Left Doralis Pedis, 1+ Right Dorsalis Pedis Neurological: Yes: Alert, Oriented Psychiatric: Yes: WNL - Other Data Labs, Other Data: CBC, BMP 12/01/17 05:50 12/01/17 05:50 INR, PTT INR 4.24 (0.83-1.09) H* 12/01/17 05:50 Abnormal Lab Results 12/01/17 12/01/17 12/01/17 05:50 05:50 05:50 RBC 2.59 L Hgb 8.8 L Hct 25.8 L D MCV 99.6 H MCH 34.1 H PT with INR 47.90 H INR 4.24 H* Chloride 110 H BUN 24 H Random Glucose 110 H D Alkaline Phosphatase 148 H Total Protein 5.5 L Albumin 2.8 L Ejection Fraction %: LVEF > or = 40 % Problem List - Problems (1) Supratherapeutic INR Assessment/Plan: hold warfarin until necessary to keep INR 2-3. Code(s): R79.1 - ABNORMAL COAGULATION PROFILE (2) Hematuria Assessment/Plan: Copious amount of strongly blood-tinged urine with clots. Hb drop from 11.0 to 8.9 in past 24 hours (not dilutional; no IV fluids given). ASA, clopidogrel, and warfarin held since yesterday. Recommend ICU for close monitoring, given continuing hematuria, chest pain, CAD and PAD. Code(s): R31.9 - HEMATURIA, UNSPECIFIED Qualifiers: Hematuria type: gross Qualified Code(s): R31.0 - Gross hematuria (3) Stricture of bladder neck Code(s): N32.0 - BLADDER-NECK OBSTRUCTION (4) Urinary retention Code(s): R33.9 - RETENTION OF URINE, UNSPECIFIED (5) Acute on chronic systolic (congestive) heart failure Assessment/Plan: On carvedilol, lisinopril, furosemide. F/u BUN/Cr, electrolytes, daily weight, Is and Os. Code(s): I50.23 - ACUTE ON CHRONIC SYSTOLIC (CONGESTIVE) HEART FAILURE (6) Anxiety Code(s): F41.9 - ANXIETY DISORDER, UNSPECIFIED (7) Atrial fibrillation Code(s): I48.91 - UNSPECIFIED ATRIAL FIBRILLATION (8) Chest pain Assessment/Plan: EKG: NSR: nonspecific STT changes (no significant change from that of last admission 11/10/17). TNI pending. Ongoing chest pain (also present on last admission). Antiplatelets, warfarin have had to be held due to hematuria, drop in Hb, supratherapeutic INR. Code(s): R07.9 - CHEST PAIN, UNSPECIFIED (9) HTN (hypertension) Code(s): I10 - ESSENTIAL (PRIMARY) HYPERTENSION (10) Herpes simplex Code(s): B00.9 - HERPESVIRAL INFECTION, UNSPECIFIED (11) History of coronary artery stent placement Code(s): Z95.5 - PRESENCE OF CORONARY ANGIOPLASTY IMPLANT AND GRAFT (12) Hx of CABG Code(s): Z95.1 - PRESENCE OF AORTOCORONARY BYPASS GRAFT (13) Hyperlipidemia Code(s): E78.5 - HYPERLIPIDEMIA, UNSPECIFIED (14) PAD (peripheral artery disease) Code(s): I73.9 - PERIPHERAL VASCULAR DISEASE, UNSPECIFIED
--- NOTE | 2017-12-01 19:12 | HOSP ---
Physical Examination Vital Signs: Vital Signs Temperature 97.7 F 12/01/17 15:00 Pulse Rate 70 12/01/17 15:00 Respiratory Rate 20 12/01/17 18:30 Blood Pressure 112/64 12/01/17 15:00 O2 Sat by Pulse Oximetry (%) 99 12/01/17 18:30 Labs: CBC, BMP 12/01/17 05:50 12/01/17 05:50 Hospitalist Encounter Assessment: Mr Waddell is a 77 year old male with a significant past medical history of CAD, CABG, PAD (s/p L SFA angioplasty 09/2017), HTN, hyperlipidemia, and ST changes seen on EKG on last admission. He comes to the ED for severe suprapubic pain and a non draining bishop catheter. On admission a CBI was placed for continuous irrigation. Patient has since been noted to be draining theo red blood urine with clots. Aspirin Plavix, Coumadin are being held for gross hematuria. Patient recently here on 11/10/17 for ureteral stricture and was found to have a collection of pus and was in the ICU for septic shock. On review of labs: INR 4.24, hmg dropped from 11->8 without any fluid hydration. Patient continues to c/o of discomfort of suprapublic region and is frequently medicated for pain with morphine: GENERAL APPEARANCE: stable vitals, well nourished, well developed NEURO: awake, alert, pallorous - in pain/discomfort. ABDOMEN: distended, soft, non tender LUNGS: clear to auscultation anteriorly UPPER EXT: equal. PSYCHE: normal mood and affect Plan: Stat CBC now EKG ordered by cardiology Trend troponins Lactic acid stat discussed with cardiology Consider closer monitoring in the ICU for acute bleeding episode as pt has extensive cardiac history, anticoagulation currently being held
[2017-12-01 20:50] LABS: HEMATOCRIT 25.7 % (35.4-49); HEMOGLOBIN 8.7 GM/dL (11.7-16.9); MCH 33.5 pg (25.7-33.7); MCHC 33.9 g/dl (32.0-35.9); MEAN CELL VOLUME 98.8 fl (80-96); MEAN PLT VOLUME 8.3 fl (7.5-11.1); PLATELET COUNT 264 K/MM3 (134-434); RBC 2.61 M/mm3 (4.00-5.60); RDW 14.1 % (11.9-15.9); WHITE BLOOD COUNT 8.7 K/mm3 (4.0-10.0)
[2017-12-01] MEDS: ATORVASTATIN CA 10 MG TABLET (FP) PO SCH (21:24)
[2017-12-01] MEDS ORDERED: PT OWN MED DRAWER 7, Y5N ONE (21:54)
[2017-12-01] MEDS ORDERED: CHLORHEXIDINE GLUCONATE 4% CLEANSER FOR DECOLONIZATION TP SCH (22:45)
[2017-12-01] MEDS ORDERED: POLYETHYLENE GLYCOL 3350 119 GM BTL PO PRN (23:55)
[2017-12-01] MEDS ORDERED: SENNOSIDES 8.6MG TABLET (FP) PO PRN (23:55)
[2017-12-02] MEDS: morphine SULFATE 4 MG/ML VIAL IVPUSH PRN ×3 (00:17→11:03)
[2017-12-02] MEDS: ACETAMINOPHEN 325 MG TABLET (FP) PO SCH ×4 (00:17→17:04)
[2017-12-02] MEDS: MUPIROCIN 2% TOPICAL OINTMENT FOR DECOLONIZATION NS SCH ×2 (00:18→09:03)
[2017-12-02] MEDS ORDERED: morphine SULFATE 4 MG/ML VIAL IVPUSH ONE (01:45)
[2017-12-02 06:24] LABS: BASO % 0.5 % (0-2.0); EOS % 0.9 % (0-4.5); HEMATOCRIT 24.3 % (35.4-49); HEMOGLOBIN 8.3 GM/dL (11.7-16.9); LYMPH % 10.5 % (8-40); MCH 33.9 pg (25.7-33.7); MCHC 34.1 g/dl (32.0-35.9); MEAN CELL VOLUME 99.2 fl (80-96); MEAN PLT VOLUME 8.2 fl (7.5-11.1); MONO % 10.5 % (3.8-10.2); NEUT % 77.6 % (42.8-82.8); PLATELET COUNT 242 K/MM3 (134-434); RBC 2.45 M/mm3 (4.00-5.60); WHITE BLOOD COUNT 9.2 K/mm3 (4.0-10.0)
[2017-12-02 06:47] LABS: CHLORIDE 107 mmol/L (98-107); POTASSIUM 4.5 mmol/L (3.5-5.1); SODIUM 140 mmol/L (136-145)
[2017-12-02 06:51] LABS: ALBUMIN 2.8 g/dl (3.4-5.0); ALK PHOS 223 U/L (45-117); ANION GAP 7 (8-16); BILIRUBIN,TOTAL 0.5 mg/dL (0.2-1.0); BLOOD UREA NITROGEN 22 mg/dL (7-18); CALCIUM 8.9 mg/dL (8.5-10.1); CO2 26 mmol/L (21-32); CREATININE 0.8 mg/dL (0.7-1.3); GLUCOSE,RANDOM 120 mg/dL (74-106); SGOT/AST 33 U/L (15-37); SGPT/ALT 39 U/L (12-78); TOT PROT 5.6 g/dl (6.4-8.2)
[2017-12-02] MEDS ORDERED: oxyCODONE HCL 5 MG TABLET PO PRN ×3 (08:18→21:11)
[2017-12-02] MEDS ORDERED: cefTRIAXone SODIUM 1 GM VIAL ONE (08:29)
[2017-12-02] MEDS ORDERED: DEXTROSE 5%-WATER - 50 ML IVPB ONE ×2 (08:29→20:08)
[2017-12-02] MEDS ORDERED: TAMSULOSIN HCL 0.4 MG CAP.ER.24H (FP) PO SCH ×2 (08:30→11:34)
[2017-12-02] MEDS ORDERED: CARVEDILOL 3.125 MG TABLET (FP) PO SCH (10:00)
[2017-12-02] MEDS ORDERED: LISINOPRIL 5 MG TABLET (FP) PO SCH (10:00)
[2017-12-02] MEDS ORDERED: FOLIC ACID 1 MG TABLET (FP) PO SCH (10:00)
[2017-12-02] MEDS ORDERED: CEFTRIAXONE 1 GM in DEXTROSE 5%-WATER - 50 ML IVPB SCH (10:00)
[2017-12-02] MEDS ORDERED: FUROSEMIDE 20 MG TABLET (FP) PO SCH (10:00)
--- NOTE | 2017-12-02 10:57 | PN ---
Progress Note, Physician Chief Complaint: on CBI pain is better Pt examined in ICU HCT decreased c/o chest discomfort - chronic since last admission - Current Medication List Current Medications: Active Medications Acetaminophen (Tylenol -) 650 mg PO Q6HPO [facility] Last Admin: 12/02/17 06:06 Dose: 650 mg Atorvastatin Calcium (Lipitor -) 10 mg PO HS [facility] Carvedilol (Coreg -) 3.125 mg PO BID [facility] Last Admin: 12/02/17 09:02 Dose: 3.125 mg Chlorhexidine Gluconate (Hibiclens For Decolonization -) 1 applic TP HS [facility] Last Admin: 12/01/17 22:00 Dose: 1 applic Folic Acid (Folic Acid -) 1 mg PO DAILY [facility] Last Admin: 12/02/17 09:02 Dose: 1 mg Furosemide (Lasix -) 20 mg PO DAILY [facility] Last Admin: 12/02/17 09:02 Dose: 20 mg Ceftriaxone Sodium 1 gm/ (Dextrose) 50 mls @ 200 mls/hr IVPB DAILY [facility]; Protocol Last Admin: 12/02/17 09:02 Dose: 200 mls/hr Lisinopril (Prinivil) 2.5 mg PO DAILY [facility] Last Admin: 12/02/17 09:02 Dose: 2.5 mg Morphine Sulfate (Morphine Sulfate) 4 mg IVPUSH Q3H PRN PRN Reason: PAIN LEVEL 6-10 Last Admin: 12/02/17 07:40 Dose: 4 mg Mupirocin (Bactroban Ointment (For Decolonization) -) 1 applic NS BID [facility] Stop: 12/06/17 22:44 Last Admin: 12/02/17 09:03 Dose: 1 applic Oxycodone HCl (Roxicodone -) 5 mg PO Q6H PRN PRN Reason: PAIN LEVEL 4 - 6 Last Admin: 12/02/17 08:29 Dose: 5 mg Polyethylene Glycol (Miralax (For Daily Use) -) 17 gm PO Q24H PRN PRN Reason: CONSTIPATION Senna (Senna -) 2 tab PO HS PRN PRN Reason: CONSTIPATION Tamsulosin HCl (Flomax -) 0.4 mg PO 0830 [facility] Last Admin: 12/02/17 07:40 Dose: 0.4 mg - Objective Vital Signs: Vital Signs Temperature 98.7 F 12/02/17 10:00 Pulse Rate 75 12/02/17 10:00 Respiratory Rate 20 12/02/17 10:00 Blood Pressure 102/68 12/02/17 10:00 O2 Sat by Pulse Oximetry (%) 99 12/02/17 10:00 Constitutional: Yes: No Distress Cardiovascular: Yes: Pulse Irregular Respiratory: Yes: CTA Bilaterally Gastrointestinal: Yes: Normal Bowel Sounds, Soft. No: Tenderness Edema: No Labs: CBC, BMP 12/02/17 05:30 12/02/17 05:30 INR, PTT INR 4.24 (0.83-1.09) H* 12/01/17 05:50 Problem List - Problems (1) Hematuria Code(s): R31.9 - HEMATURIA, UNSPECIFIED Qualifiers: Hematuria type: gross Qualified Code(s): R31.0 - Gross hematuria (2) Stricture of bladder neck Code(s): N32.0 - BLADDER-NECK OBSTRUCTION (3) Supratherapeutic INR Code(s): R79.1 - ABNORMAL COAGULATION PROFILE (4) Urinary retention Code(s): R33.9 - RETENTION OF URINE, UNSPECIFIED (5) Anxiety Code(s): F41.9 - ANXIETY DISORDER, UNSPECIFIED (6) Atrial fibrillation Code(s): I48.91 - UNSPECIFIED ATRIAL FIBRILLATION (7) Chest pain Code(s): R07.9 - CHEST PAIN, UNSPECIFIED Assessment/Plan PLAN CBI clearing now HCT - to monitor, may need to transfuse if needed eval high risk for TURP- will not undergo at this time INR is high- do not give Vit K spoke with ICU team pain control may need to restart Plavix as he had a recent stent placed
[2017-12-02] MEDS ORDERED: morphine SULFATE 4 MG/ML VIAL IVPUSH PRN (11:38)
--- NOTE | 2017-12-02 12:04 | PN ---
Teaching Attending Note Name of Resident: Nighat Escalona ATTENDING PHYSICIAN STATEMENT I saw and evaluated the patient. I reviewed the resident's note and discussed the case with the resident. I agree with the resident's findings and plan as documented. SUBJECTIVE: Patient seen and examined in the ICU. Awake and alert. Intermittent significant pain due to process, better with Oxycodone/MS. Reports mild intermittent chest discomfort. H&H down trending, but stabilizing. No SOB. Intake & Output 11/29/17 11/30/17 12/01/17 12/02/17 23:59 23:59 23:59 23:59 Intake Total 7500 64456 42908 Output Total 23823 35199 7200 Balance -4450 9050 5400 Weight 208 lb 195 lb 2 oz Last Vital Signs Temp Pulse Resp BP Pulse Ox 98.7 F 75 20 102/68 99 12/02/17 10:00 12/02/17 10:00 12/02/17 10:00 12/02/17 10:00 12/02/17 10:00 Active Medications Acetaminophen (Tylenol -) 650 mg PO Q6HPO [facility] Last Admin: 12/02/17 06:06 Dose: 650 mg Atorvastatin Calcium (Lipitor -) 10 mg PO HS [facility] Carvedilol (Coreg -) 3.125 mg PO BID [facility] Last Admin: 12/02/17 09:02 Dose: 3.125 mg Chlorhexidine Gluconate (Hibiclens For Decolonization -) 1 applic TP HS [facility] Last Admin: 12/01/17 22:00 Dose: 1 applic Folic Acid (Folic Acid -) 1 mg PO DAILY [facility] Last Admin: 12/02/17 09:02 Dose: 1 mg Furosemide (Lasix -) 20 mg PO DAILY [facility] Last Admin: 12/02/17 09:02 Dose: 20 mg Ceftriaxone Sodium 1 gm/ (Dextrose) 50 mls @ 200 mls/hr IVPB DAILY [facility]; Protocol Last Admin: 12/02/17 09:02 Dose: 200 mls/hr Lisinopril (Prinivil) 2.5 mg PO DAILY [facility] Last Admin: 12/02/17 09:02 Dose: 2.5 mg Morphine Sulfate (Morphine Sulfate) 4 mg IVPUSH Q3H PRN PRN Reason: Pain Level 7-10 Mupirocin (Bactroban Ointment (For Decolonization) -) 1 applic NS BID [facility] Stop: 12/06/17 22:44 Last Admin: 12/02/17 09:03 Dose: 1 applic Oxycodone HCl (Roxicodone -) 10 mg PO Q6H PRN PRN Reason: PAIN LEVEL 4 - 6 Polyethylene Glycol (Miralax (For Daily Use) -) 17 gm PO Q24H PRN PRN Reason: CONSTIPATION Senna (Senna -) 2 tab PO HS PRN PRN Reason: CONSTIPATION Tamsulosin HCl (Flomax -) 0.8 mg PO 0830 [facility] Constitutional: Yes: Awake and alert, Mild Distress due to pain Eyes: Yes: WNL HENT: Yes: WNL Neck: Yes: WNL Respiratory: Yes: Regular Gastrointestinal: Yes: Soft Renal/: Yes: [place] Present Cardiovascular: Yes: Regular Rate and Rhythm JVD: No Carotid Bruit: No PMI: Displaced Heart Sounds: Yes: S1, Split S2 Musculoskeletal: Yes: intact strength Extremities: Yes: Cool Edema: No Peripheral Pulses WNL: No Peripheral Pulses: 1+ Left Doralis Pedis, 1+ Right Dorsalis Pedis Neurological: Yes: Alert, Oriented Psychiatric: Yes: WNL Laboratory Results - last 24 hr 12/01/17 12/01/17 12/01/17 19:20 19:20 20:25 WBC 8.7 RBC 2.61 L Hgb 8.7 L Hct 25.7 L MCV 98.8 H MCH 33.5 MCHC 33.9 RDW 14.1 Plt Count 264 MPV 8.3 Absolute Neuts (auto) Neutrophils % Lymphocytes % Monocytes % Eosinophils % Basophils % Nucleated RBC % Sodium Potassium Chloride Carbon Dioxide Anion Gap BUN Creatinine Creat Clearance w eGFR Random Glucose Lactic Acid Calcium Total Bilirubin AST ALT Alkaline Phosphatase Troponin I 0.09 H D B-Natriuretic Peptide 5206.85 H Total Protein Albumin Blood Type Antibody Screen 12/01/17 12/01/17 12/02/17 20:25 21:50 05:30 WBC 9.2 RBC 2.45 L Hgb 8.3 L Hct 24.3 L MCV 99.2 H MCH 33.9 H MCHC 34.1 RDW 14.0 Plt Count 242 MPV 8.2 Absolute Neuts (auto) 7.1 Neutrophils % 77.6 Lymphocytes % 10.5 D Monocytes % 10.5 H Eosinophils % 0.9 D Basophils % 0.5 Nucleated RBC % 0 Sodium Potassium Chloride Carbon Dioxide Anion Gap BUN Creatinine Creat Clearance w eGFR Random Glucose Lactic Acid 1.5 Calcium Total Bilirubin AST ALT Alkaline Phosphatase Troponin I B-Natriuretic Peptide Total Protein Albumin Blood Type O NEGATIVE Antibody Screen Negative 12/02/17 05:30 WBC RBC Hgb Hct MCV MCH MCHC RDW Plt Count MPV Absolute Neuts (auto) Neutrophils % Lymphocytes % Monocytes % Eosinophils % Basophils % Nucleated RBC % Sodium 140 Potassium 4.5 Chloride 107 Carbon Dioxide 26 Anion Gap 7 L BUN 22 H Creatinine 0.8 Creat Clearance w eGFR > 60 Random Glucose 120 H Lactic Acid Calcium 8.9 Total Bilirubin 0.5 AST 33 D ALT 39 D Alkaline Phosphatase 223 H D Troponin I B-Natriuretic Peptide Total Protein 5.6 L Albumin 2.8 L Blood Type Antibody Screen Problem List - Problems (1) Supratherapeutic INR Code(s): R79.1 - ABNORMAL COAGULATION PROFILE (2) Hematuria Assessment/Plan: Code(s): R31.9 - HEMATURIA, UNSPECIFIED Qualifiers: Hematuria type: gross Qualified Code(s): R31.0 - Gross hematuria (3) Stricture of bladder neck Code(s): N32.0 - BLADDER-NECK OBSTRUCTION (4) Urinary retention Code(s): R33.9 - RETENTION OF URINE, UNSPECIFIED (5) Acute on chronic systolic (congestive) heart failure Assessment/Plan: Code(s): I50.23 - ACUTE ON CHRONIC SYSTOLIC (CONGESTIVE) HEART FAILURE (6) Anxiety Code(s): F41.9 - ANXIETY DISORDER, UNSPECIFIED (7) Atrial fibrillation Code(s): I48.91 - UNSPECIFIED ATRIAL FIBRILLATION (8) Chest pain Assessment/Plan: Code(s): R07.9 - CHEST PAIN, UNSPECIFIED (9) HTN (hypertension) Code(s): I10 - ESSENTIAL (PRIMARY) HYPERTENSION (10) Herpes simplex Code(s): B00.9 - HERPESVIRAL INFECTION, UNSPECIFIED (11) History of coronary artery stent placement Code(s): Z95.5 - PRESENCE OF CORONARY ANGIOPLASTY IMPLANT AND GRAFT (12) Hx of CABG Code(s): Z95.1 - PRESENCE OF AORTOCORONARY BYPASS GRAFT (13) Hyperlipidemia Code(s): E78.5 - HYPERLIPIDEMIA, UNSPECIFIED (14) PAD (peripheral artery disease) Code(s): I73.9 - PERIPHERAL VASCULAR DISEASE, UNSPECIFIED Transfusion to 9mg/dL O2 as needed CBI per Urology Pain control Cardiac meds as ordered by Cardiology Need to discuss possibility of restarting his anti-platelet at some point Daily Rocephin Cardiac Telemetry monitoring Dr Tucker Critical care time spent in reviewing chart, evaluating patient and formulating plan - 36 minutes.
[2017-12-02 12:50] LABS: HEMATOCRIT 25.6 % (35.4-49); HEMOGLOBIN 8.6 GM/dL (11.7-16.9); MCH 33.3 pg (25.7-33.7); MCHC 33.6 g/dl (32.0-35.9); MEAN CELL VOLUME 99.2 fl (80-96); MEAN PLT VOLUME 8.3 fl (7.5-11.1); PLATELET COUNT 283 K/MM3 (134-434); RBC 2.58 M/mm3 (4.00-5.60); RDW 13.9 % (11.9-15.9)
[2017-12-02 12:58] LABS: INR 2.54 (0.83-1.09); PROTHROMBIN TIME (PATIENT) 28.7 SEC (9.7-13.0)
--- NOTE | 2017-12-02 14:01 | PN ---
Physical Exam: SUBJECTIVE: Patient seen and examined at bedside. patient is in a lot of intermittent suprapubic pain and senses exactly when a clot is passing through because the pain is so severe and he experiences nausea, howeve. He put out about 2L of theo red blood from the bishop catheter. he is also complaining of Left sided chest discomfort that has been there since his last admission a month ago. he denies any shortness of breath. His hemoglobin on admission was 11 and it is currently at 8.7. as per cardiology all AC is being held as of now , and will reassess in 24 hours. OBJECTIVE: Vital Signs Period Temp Pulse Resp BP Sys/Gardner Pulse Ox Last 24 Hr 97.7 F-99.1 F 70-85 18-26 102-168/58-109 99-99 GENERAL: The patient is awake, alert, and fully oriented, in acute distress. LUNGS: Breath sounds equal, clear to auscultation bilaterally, no wheezes, no crackles, no accessory muscle use. HEART: Regular rate and rhythm, S1, S2 without murmur, rub or gallop. ABDOMEN: Soft, +suprapubic tenderness EXTREMITIES: 2+ pulses, warm, well-perfused, no edema. NEUROLOGICAL: Cranial nerves II through XII grossly intact. Normal speech, gait not observed. PSYCH: Normal mood, normal affect. SKIN: Warm, dry, normal turgor, no rashes or lesions noted Laboratory Results - last 24 hr 12/01/17 12/01/17 12/01/17 19:20 19:20 20:25 WBC 8.7 RBC 2.61 L Hgb 8.7 L Hct 25.7 L MCV 98.8 H MCH 33.5 MCHC 33.9 RDW 14.1 Plt Count 264 MPV 8.3 Absolute Neuts (auto) Neutrophils % Lymphocytes % Monocytes % Eosinophils % Basophils % Nucleated RBC % PT with INR INR Sodium Potassium Chloride Carbon Dioxide Anion Gap BUN Creatinine Creat Clearance w eGFR Random Glucose Lactic Acid Calcium Total Bilirubin AST ALT Alkaline Phosphatase Troponin I 0.09 H D B-Natriuretic Peptide 5206.85 H Total Protein Albumin Blood Type Antibody Screen 12/01/17 12/01/17 12/02/17 20:25 21:50 05:30 WBC 9.2 RBC 2.45 L Hgb 8.3 L Hct 24.3 L MCV 99.2 H MCH 33.9 H MCHC 34.1 RDW 14.0 Plt Count 242 MPV 8.2 Absolute Neuts (auto) 7.1 Neutrophils % 77.6 Lymphocytes % 10.5 D Monocytes % 10.5 H Eosinophils % 0.9 D Basophils % 0.5 Nucleated RBC % 0 PT with INR INR Sodium Potassium Chloride Carbon Dioxide Anion Gap BUN Creatinine Creat Clearance w eGFR Random Glucose Lactic Acid 1.5 Calcium Total Bilirubin AST ALT Alkaline Phosphatase Troponin I B-Natriuretic Peptide Total Protein Albumin Blood Type O NEGATIVE Antibody Screen Negative 12/02/17 12/02/17 12/02/17 05:30 11:57 11:57 WBC 8.0 RBC 2.58 L Hgb 8.6 L Hct 25.6 L MCV 99.2 H MCH 33.3 MCHC 33.6 RDW 13.9 Plt Count 283 MPV 8.3 Absolute Neuts (auto) Neutrophils % Lymphocytes % Monocytes % Eosinophils % Basophils % Nucleated RBC % PT with INR 28.70 H INR 2.54 H Sodium 140 Potassium 4.5 Chloride 107 Carbon Dioxide 26 Anion Gap 7 L BUN 22 H Creatinine 0.8 Creat Clearance w eGFR > 60 Random Glucose 120 H Lactic Acid Calcium 8.9 Total Bilirubin 0.5 AST 33 D ALT 39 D Alkaline Phosphatase 223 H D Troponin I B-Natriuretic Peptide Total Protein 5.6 L Albumin 2.8 L Blood Type Antibody Screen Active Medications Generic Name Dose Route Start Last Admin Trade Name Freq PRN Reason Stop Dose Admin Acetaminophen 650 mg 12/02/17 00:00 12/02/17 13:01 Tylenol - PO 650 mg Q6HPO JORJE Administration Atorvastatin Calcium 10 mg 12/02/17 22:00 Lipitor - PO HS JORJE Carvedilol 3.125 mg 12/02/17 10:00 12/02/17 09:02 Coreg - PO 3.125 mg BID JORJE Administration Chlorhexidine Gluconate 1 applic 12/01/17 22:45 12/01/17 22:00 Hibiclens For Decolonization - TP 1 applic HS JORJE Administration Folic Acid 1 mg 12/02/17 10:00 12/02/17 09:02 Folic Acid - PO 1 mg DAILY JORJE Administration Furosemide 20 mg 12/02/17 10:00 12/02/17 09:02 Lasix - PO 20 mg DAILY JORJE Administration Ceftriaxone Sodium 1 gm/ 50 mls @ 200 mls/hr 12/02/17 10:00 12/02/17 09:02 Dextrose IVPB 200 mls/hr DAILY JORJE Administration Protocol Lisinopril 2.5 mg 12/02/17 10:00 12/02/17 09:02 Prinivil PO 2.5 mg DAILY JORJE Administration Morphine Sulfate 4 mg 12/02/17 11:38 Morphine Sulfate IVPUSH Q3H PRN Pain Level 7-10 Mupirocin 1 applic 12/01/17 22:45 12/02/17 09:03 Bactroban Ointment (For Decolonization) - NS 12/06/17 22:44 1 applic BID JORJE Administration Oxycodone HCl 10 mg 12/02/17 11:38 Roxicodone - PO Q6H PRN PAIN LEVEL 4 - 6 Polyethylene Glycol 17 gm 12/01/17 23:55 Miralax (For Daily Use) - PO Q24H PRN CONSTIPATION Senna 2 tab 12/01/17 23:55 Senna - PO HS PRN CONSTIPATION Tamsulosin HCl 0.8 mg 12/02/17 11:34 Flomax - PO 0830 [facility] ASSESSMENT/PLAN: 77 y/o male with PMH of HTN, CAD ( s/p bypass 10 years ago), HLD, prostate ca, urethral stricture (11/10/2017) presents to the ED with complaints of intense suprapubic pain and with associated hematuria. Cardio: HTN/HLD/CAD -on patients last admission from 11/[address] changes on EKG and is still currently having discomfort -given patients hematuria and dropping H/H, holding AC as per cardiology -as per cardio: will reassess in am regarding restarting antiplatelet therapy -patients most recent INR is 2.54 -continue with home antihypertensives -monitor patients chest discomfort : patient had recent cystoscopy for urethral stricture (11/10) which was complicated by septic shock -patient no longer having hematuria; most recent H/H: 8.3/24.3 -pain regimen: oxycodone and morphine -monitor pain and urine output -increased patients flomax to 0.8 -c/w ceftriaxone 1gram daily -monitor H/H F/E/N: not on standing fluids replete electrolytes when necessary sodium/restricted diet dispo: transfer to telemetry Problem List - Problems (1) Hematuria Code(s): R31.9 - HEMATURIA, UNSPECIFIED Qualifiers: Hematuria type: gross Qualified Code(s): R31.0 - Gross hematuria (2) Supratherapeutic INR Code(s): R79.1 - ABNORMAL COAGULATION PROFILE (3) Atrial fibrillation Code(s): I48.91 - UNSPECIFIED ATRIAL FIBRILLATION (4) Chest pain Code(s): R07.9 - CHEST PAIN, UNSPECIFIED Visit type - Emergency Visit Emergency Visit: Yes ED Registration Date: 11/30/17 Care time: The patient presented to the Emergency Department on the above date and was hospitalized for further evaluation of their emergent condition. - New Patient This patient is new to me today: Yes Date on this admission: 12/02/17 - Critical Care Critical Care patient: Yes Total Critical Care Time (in minutes): 35 Critical Care Statement: The care of this patient involved high complexity decision making to prevent further life threatening deterioration of the patient 's condition and/or to evaluate & treat vital organ system(s) failure or risk of failure.
--- NOTE | 2017-12-02 18:40 | CON.ID ---
Consult Consult Specialty:: infectious diseases Referred by:: Reason for Consultation:: sepsis,uti - History of Present Illness Chief Complaint: abd pain,hematuria History of Present Illness: 77 yr old man with PMHx CAD, CABG, s//p LCx stent 2014, PAD (s/p L SFA angioplasty 09/2017), HTN, hyperlipidemia, underwent cystoscopy with urethrotomy for uretharal stricture. patient couple of days back post cystoscopy had a very rough course was in the icu in septic shock was treated and stabilized after also having uti patient was then send to longterm patient IN THE [facility] SEVERE ABD PAIN AND HEAMTURIA AND WAS VERY ILL LOOKING AND WAS SEND TO THE ICU He was given bladder irrigation adn abx and currently patient looks much better and stable and looks like his hematuria has resolved says abd pain much better - History Source History Provided By: Patient Limitations to Obtaining History: No Limitations - Past Medical History Cardio/Vascular: Yes: AFIB, CAD, CHF, HTN, Hyperlipdemia, Other (PVD, CAD, Coronary Bypass, CAD, Stent lower left leg) Gastrointestinal: Yes: GERD Musculoskeletal: Yes: Osteoarthritis (Chronic Lower back pain) - Past Surgical History Past Surgical History: Yes: CABG, Stent (stents, both cardiac and LLE) - Alcohol/Substance Use Hx Alcohol Use: No History of Substance Use: reports: None - Smoking History Smoking history: Former smoker Have you smoked in the past 12 months: No Aproximately how many cigarettes per day: 0 If you are a former smoker, when did you quit?: 12 YRS AGO - Social History Usual Living Arrangement: With Spouse ADL: Independent History of Recent Travel: No Home Medications - Allergies Allergies/Adverse Reactions: Allergies Allergy/AdvReac Type Severity Reaction Status Date / Time strawberry Allergy Severe Swelling Verified 11/30/17 12:25 pepper (genus Capsicum) Allergy Unknown Verified 11/30/17 12:25 iohexol [From Omnipaque] Allergy Rash Verified 11/30/17 12:25 - Home Medications Home Medications: Ambulatory Orders Clopidogrel Bisulfate [Plavix -] 75 mg PO DAILY #0 tablet 08/11/12 Aspirin [ASA -] 81 mg PO DAILY #0 tab.chew 09/03/12 Folic Acid 1 mg PO DAILY 11/04/16 Acetaminophen [Tylenol .Regular Strength -] 650 mg PO Q6H 11/07/17 Tamsulosin HCl [Flomax] 0.4 mg PO DAILY 11/07/17 Atorvastatin Ca [Lipitor] 10 mg PO HS #30 tablet 11/25/17 Carvedilol [Coreg -] 3.125 mg PO BID #30 tablet 11/25/17 Clotrimazole/Betamet Diprop [Lotrisone -] 1 applic TP BID #1 tube 11/25/17 Furosemide [Lasix -] 20 mg PO DAILY #30 tablet 11/25/17 Hydrocortisone 2.5% Topical Cr [Anusol-Hc -] 1 applic TP BID #1 tube 11/25/17 Lidocaine 2% Jelly [Xylocaine 2% Jelly] 1 applic TP Q24H PRN #1 applic 11/25/17 Lisinopril [Prinivil] 2.5 mg PO DAILY #30 tablet 11/25/17 Phenazopyridine HCl [Pyridium -] 100 mg PO TID #60 tablet 11/25/17 Polyethylene Glycol 3350 [Miralax 119 gm Btl -] 17 gm PO DAILY #1 bottle Sennosides [Senna -] 2 tab PO HS PRN #30 tablet 11/25/17 Warfarin Na [Coumadin -] 5 mg PO DAILY@1800 #30 tablet 11/25/17 Family Disease History - Family Disease History Family Disease History: Heart Disease: Brother (hear disease), CA: Father ( hodgkins) Review of Systems - Review of Systems Constitutional: reports: No Symptoms Eyes: reports: No Symptoms HENT: reports: No Symptoms Neck: reports: No Symptoms Cardiovascular: reports: No Symptoms Respiratory: reports: No Symptoms Gastrointestinal: reports: No Symptoms Genitourinary: reports: Hematuria, Other (foleys) Musculoskeletal: reports: No Symptoms Integumentary: reports: No Symptoms Neurological: reports: No Symptoms Endocrine: reports: No Symptoms Hematology/Lymphatic: reports: No Symptoms Psychiatric: reports: No Symptoms Physical Exam Vital Signs: Vital Signs Temperature 98.4 F 12/02/17 14:00 Pulse Rate 79 12/02/17 17:00 Respiratory Rate 19 12/02/17 18:00 Blood Pressure 118/62 12/02/17 17:00 O2 Sat by Pulse Oximetry (%) 99 12/02/17 18:00 Constitutional: Yes: Well Nourished, No Distress, Calm Eyes: Yes: Conjunctiva Clear HENT: Yes: Atraumatic, Normocephalic Neck: Yes: Supple, Trachea Midline Cardiovascular: Yes: Regular Rate and Rhythm Respiratory: Yes: Regular, CTA Bilaterally Gastrointestinal: Yes: Normal Bowel Sounds, Soft Renal/: Yes: Hematuria, Other (foleys) Musculoskeletal: Yes: WNL Extremities: Yes: WNL Neurological: Yes: Alert, Oriented Psychiatric: Yes: Alert, Oriented Labs: CBC, BMP 12/02/17 11:57 12/02/17 05:30 Assessment/Plan Problem List - Problems (1) Hematuria Code(s): R31.9 - HEMATURIA, UNSPECIFIED Qualifiers: Hematuria type: gross Qualified Code(s): R31.0 - Gross hematuria (2) Stricture of bladder neck Code(s): N32.0 - BLADDER-NECK OBSTRUCTION (3) Supratherapeutic INR Code(s): R79.1 - ABNORMAL COAGULATION PROFILE (4) Urinary retention Code(s): R33.9 - RETENTION OF URINE, UNSPECIFIED (5) Anxiety Code(s): F41.9 - ANXIETY DISORDER, UNSPECIFIED (6) Atrial fibrillation Code(s): I48.91 - UNSPECIFIED ATRIAL FIBRILLATION (7) Chest pain Code(s): R07.9 - CHEST PAIN, UNSPECIFIED plan cx results of urine noted will stop ceftriaxone will switch to zosyn bladder wash rest as per the icu urology evaluation rest as per the team cc 40 min
[2017-12-02] MEDS ORDERED: PIPERACILLIN/TAZOB 3.375 GM 3.375 GM in DEXTROSE 5%-WATER - 50 ML IVPB SCH (18:45)
[2017-12-02] MEDS ORDERED: PIPERACILLIN/TAZOBACTAM 3.375 GM VIAL IVPB ONE (20:08)
[2017-12-02] MEDS: ATORVASTATIN CA 10 MG TABLET (FP) PO SCH (21:41)
[2017-12-02] MEDS: CARVEDILOL 3.125 MG TABLET (FP) PO SCH (21:41)
[2017-12-02] MEDS ORDERED: ATORVASTATIN CA 10 MG TABLET (FP) PO SCH (22:00)
[2017-12-03] MEDS: morphine SULFATE 4 MG/ML VIAL IVPUSH PRN ×2 (02:12→21:37)
[2017-12-03] MEDS ORDERED: PIPERACILLIN/TAZOBACTAM 3.375 GM VIAL IVPB ONE ×3 (04:45→16:09)
[2017-12-03] MEDS ORDERED: DEXTROSE 5%-WATER 100 ML IVPB ONE ×3 (04:45→16:09)
[2017-12-03] MEDS: PIPERACILLIN/TAZOB 3.375 GM 3.375 GM in DEXTROSE 5%-WATER 100 ML IVPB SCH ×3 (04:51→18:01)
[2017-12-03] MEDS: ACETAMINOPHEN 325 MG TABLET (FP) PO SCH ×3 (06:36→18:03)
[2017-12-03 07:43] LABS: BASO % 0.7 % (0-2.0); EOS % 4.3 % (0-4.5); HEMATOCRIT 23.7 % (35.4-49); HEMOGLOBIN 8.1 GM/dL (11.7-16.9); LYMPH % 15.3 % (8-40); MCH 33.9 pg (25.7-33.7); MCHC 34.3 g/dl (32.0-35.9); MEAN PLT VOLUME 7.8 fl (7.5-11.1); MONO % 11.4 % (3.8-10.2); NEUT % 68.3 % (42.8-82.8); PLATELET COUNT 241 K/MM3 (134-434); RBC 2.39 M/mm3 (4.00-5.60); WHITE BLOOD COUNT 7.1 K/mm3 (4.0-10.0)
[2017-12-03 08:01] LABS: INR 1.88 (0.83-1.09); PROTHROMBIN TIME (PATIENT) 21.2 SEC (9.7-13.0)
[2017-12-03 08:36] LABS: CHLORIDE 106 mmol/L (98-107); POTASSIUM 4.7 mmol/L (3.5-5.1); SODIUM 139 mmol/L (136-145)
[2017-12-03 08:47] LABS: ALBUMIN 2.7 g/dl (3.4-5.0); ALK PHOS 261 U/L (45-117); ANION GAP 7 (8-16); BILIRUBIN,TOTAL 0.3 mg/dL (0.2-1.0); BLOOD UREA NITROGEN 22 mg/dL (7-18); CO2 26 mmol/L (21-32); GLUCOSE,RANDOM 122 mg/dL (74-106); MAGNESIUM 1.9 mg/dL (1.8-2.4); PHOSPHOROUS 3.9 mg/dL (2.5-4.9); SGOT/AST 35 U/L (15-37); SGPT/ALT 49 U/L (12-78); TOT PROT 5.6 g/dl (6.4-8.2)
[2017-12-03] MEDS: TAMSULOSIN HCL 0.4 MG CAP.ER.24H (FP) PO SCH (10:08)
[2017-12-03] MEDS: FUROSEMIDE 20 MG TABLET (FP) PO SCH (10:08)
[2017-12-03] MEDS: CARVEDILOL 3.125 MG TABLET (FP) PO SCH ×2 (10:09→21:37)
[2017-12-03] MEDS: FOLIC ACID 1 MG TABLET (FP) PO SCH (10:10)
[2017-12-03] MEDS: LISINOPRIL 5 MG TABLET (FP) PO SCH (10:10)
--- NOTE | 2017-12-03 10:49 | PN ---
Progress Note (short form) - Note Progress Note: pt seen/ examined feels much better pain much better urine getting clearer afebrile Vital Signs Temp 98.6 F 12/03/17 05:30 Pulse 75 12/03/17 05:30 Resp 20 12/03/17 05:30 BP 109/57 12/03/17 05:30 Pulse Ox 98 12/03/17 00:00 Intake & Output 12/02/17 12/02/17 12/03/17 11:59 23:59 11:59 Intake Total 36762 9400 9000 Output Total 7200 8400 8000 Balance 5400 1000 1000 Weight 195 lb 2 oz Intake: Oral 600 400 CBI Intake 60290 9000 9000 Output: Urine 7200 8400 8000 Banegas 7200 8400 8000 Other: Voiding Method Indwelling Catheter Indwelling Catheter Indwelling Catheter Active Medications Acetaminophen (Tylenol -) 650 mg PO Q6HPO [facility] Last Admin: 12/03/17 06:36 Dose: 650 mg Atorvastatin Calcium (Lipitor -) 10 mg PO HS [facility] Last Admin: 12/02/17 21:41 Dose: 10 mg Carvedilol (Coreg -) 3.125 mg PO BID [facility] Last Admin: 12/03/17 10:09 Dose: 3.125 mg Folic Acid (Folic Acid -) 1 mg PO DAILY [facility] Last Admin: 12/03/17 10:10 Dose: 1 mg Furosemide (Lasix -) 20 mg PO DAILY [facility] Last Admin: 12/03/17 10:08 Dose: 20 mg Piperacillin Sod/Tazobactam (Sod 3.375 gm/ Dextrose) 100 mls @ 200 mls/hr IVPB Q8H-IV JORJE; Protocol Last Admin: 12/03/17 10:15 Dose: 200 mls/hr Lisinopril (Prinivil) 2.5 mg PO DAILY [facility] Last Admin: 12/03/17 10:10 Dose: 2.5 mg Morphine Sulfate (Morphine Sulfate) 4 mg IVPUSH Q3H PRN PRN Reason: Pain Level 7-10 Last Admin: 12/03/17 02:12 Dose: 4 mg Oxycodone HCl (Roxicodone -) 10 mg PO Q6H PRN PRN Reason: PAIN LEVEL 4 - 6 Last Admin: 12/03/17 07:58 Dose: 10 mg Polyethylene Glycol (Miralax (For Daily Use) -) 17 gm PO Q24H PRN PRN Reason: CONSTIPATION Senna (Senna -) 2 tab PO HS PRN PRN Reason: CONSTIPATION Tamsulosin HCl (Flomax -) 0.8 mg PO DAILY@0830 JORJE Last Admin: 12/03/17 10:08 Dose: 0.8 mg CBC, BMP 12/03/17 06:22 12/03/17 06:22 Microbiology 11/30/17 13:00 Urine Culture - Final Urine - Urine Clean Catch Enterobacter Aerogenes Enterococcus Faecalis Physical Examination Constitutional: Yes: awake/ comfortable Eyes: Yes: Conjunctiva Clear Neck: Yes: Supple. no jvd Cardiovascular: Yes: Regular Rate and Rhythm Respiratory: Yes: CTA Bilaterally Gastrointestinal: Yes: Soft/ non tender Renal/: Yes: Banegas Present, Other (cbi) Edema: No Neurological: Yes: Alert Imaging - Results EKG: Report Reviewed Assessment/Plan better Abx f/u cultures monitor h/h transfuse prn a/c on hold Plavix to be restarted when ok with gu- cardiology daily oob - chair physical therapy will follow discussed with nursing staff also. Problem List - Problems (1) Hematuria Code(s): R31.9 - HEMATURIA, UNSPECIFIED Qualifiers: Hematuria type: gross Qualified Code(s): R31.0 - Gross hematuria (2) Stricture of bladder neck Code(s): N32.0 - BLADDER-NECK OBSTRUCTION (3) Urinary retention Code(s): R33.9 - RETENTION OF URINE, UNSPECIFIED (4) Anxiety Code(s): F41.9 - ANXIETY DISORDER, UNSPECIFIED (5) Atrial fibrillation Code(s): I48.91 - UNSPECIFIED ATRIAL FIBRILLATION (6) History of coronary artery stent placement Code(s): Z95.5 - PRESENCE OF CORONARY ANGIOPLASTY IMPLANT AND GRAFT (7) Hx of CABG Code(s): Z95.1 - PRESENCE OF AORTOCORONARY BYPASS GRAFT (8) Obesity Code(s): E66.9 - OBESITY, UNSPECIFIED
--- NOTE | 2017-12-03 13:50 | EKG ---
Test Reason : Blood Pressure : / mmHG Vent. Rate : 074 BPM Atrial Rate : 074 BPM P-R Int : 184 ms QRS Dur : 114 ms QT Int : 414 ms P-R-T Axes : 003 004 112 degrees QTc Int : 459 ms SINUS RHYTHM WITH PREMATURE ATRIAL COMPLEXES WITH ABERRANT CONDUCTION INCOMPLETE LEFT BUNDLE BRANCH BLOCK NONSPECIFIC ST AND T WAVE ABNORMALITY ABNORMAL ECG WHEN COMPARED WITH ECG OF 01-DEC-2017 19:06, PREMATURE VENTRICULAR COMPLEXES ARE NO LONGER PRESENT ABERRANT CONDUCTION IS NOW PRESENT Confirmed by SWATHI LOPEZ MD ([id number]) on 12/03/2017 1:50:43 PM Referred By: SWATHI LOPEZ Confirmed By:SWATHI LOPEZ MD
--- NOTE | 2017-12-03 14:01 | PN ---
Progress Note, Physician History of Present Illness: patient stable transferred to [facility] feels much better hematuria resolved - Current Medication List Current Medications: Active Medications Acetaminophen (Tylenol -) 650 mg PO Q6HPO [facility] Last Admin: 12/03/17 11:51 Dose: 650 mg Atorvastatin Calcium (Lipitor -) 10 mg PO HS [facility] Last Admin: 12/02/17 21:41 Dose: 10 mg Carvedilol (Coreg -) 3.125 mg PO BID [facility] Last Admin: 12/03/17 10:09 Dose: 3.125 mg Folic Acid (Folic Acid -) 1 mg PO DAILY [facility] Last Admin: 12/03/17 10:10 Dose: 1 mg Furosemide (Lasix -) 20 mg PO DAILY [facility] Last Admin: 12/03/17 10:08 Dose: 20 mg Piperacillin Sod/Tazobactam (Sod 3.375 gm/ Dextrose) 100 mls @ 200 mls/hr IVPB Q8H-IV [facility]; Protocol Last Admin: 12/03/17 10:15 Dose: 200 mls/hr Lisinopril (Prinivil) 2.5 mg PO DAILY [facility] Last Admin: 12/03/17 10:10 Dose: 2.5 mg Morphine Sulfate (Morphine Sulfate) 4 mg IVPUSH Q3H PRN PRN Reason: Pain Level 7-10 Last Admin: 12/03/17 02:12 Dose: 4 mg Oxycodone HCl (Roxicodone -) 10 mg PO Q6H PRN PRN Reason: PAIN LEVEL 4 - 6 Last Admin: 12/03/17 07:58 Dose: 10 mg Polyethylene Glycol (Miralax (For Daily Use) -) 17 gm PO Q24H PRN PRN Reason: CONSTIPATION Senna (Senna -) 2 tab PO HS PRN PRN Reason: CONSTIPATION Tamsulosin HCl (Flomax -) 0.8 mg PO DAILY@0830 [facility] Last Admin: 12/03/17 10:08 Dose: 0.8 mg - Objective Vital Signs: Vital Signs Temperature 98.4 F 12/03/17 08:00 Pulse Rate 76 12/03/17 08:00 Respiratory Rate 18 12/03/17 08:00 Blood Pressure 123/57 12/03/17 08:00 O2 Sat by Pulse Oximetry (%) 97 12/03/17 08:00 Constitutional: Yes: No Distress, Calm Cardiovascular: Yes: Regular Rate and Rhythm Respiratory: Yes: Regular, CTA Bilaterally Gastrointestinal: Yes: Normal Bowel Sounds, Soft Musculoskeletal: Yes: WNL Extremities: Yes: WNL Neurological: Yes: Alert, Oriented Labs: CBC, BMP 12/03/17 06:22 12/03/17 06:22 INR, PTT INR 1.88 (0.83-1.09) H 12/03/17 06:22 Assessment/Plan Problem List - Problems (1) Hematuria Code(s): R31.9 - HEMATURIA, UNSPECIFIED Qualifiers: Hematuria type: gross Qualified Code(s): R31.0 - Gross hematuria (2) Stricture of bladder neck Code(s): N32.0 - BLADDER-NECK OBSTRUCTION (3) Supratherapeutic INR Code(s): R79.1 - ABNORMAL COAGULATION PROFILE (4) Urinary retention Code(s): R33.9 - RETENTION OF URINE, UNSPECIFIED (5) Anxiety Code(s): F41.9 - ANXIETY DISORDER, UNSPECIFIED (6) Atrial fibrillation Code(s): I48.91 - UNSPECIFIED ATRIAL FIBRILLATION (7) Chest pain Code(s): R07.9 - CHEST PAIN, UNSPECIFIED 8 uti plan continue current mgmt continue abx rest as per the team as per urology
[2017-12-03] MEDS: ATORVASTATIN CA 10 MG TABLET (FP) PO SCH (21:37)
[2017-12-04] MEDS: ACETAMINOPHEN 325 MG TABLET (FP) PO SCH ×4 (00:47→18:25)
[2017-12-04] MEDS: PIPERACILLIN/TAZOB 3.375 GM 3.375 GM in DEXTROSE 5%-WATER 100 ML IVPB SCH ×3 (01:00→18:23)
[2017-12-04 06:38] LABS: BASO % 0.6 % (0-2.0); EOS % 4.6 % (0-4.5); HEMATOCRIT 24.1 % (35.4-49); HEMOGLOBIN 8.2 GM/dL (11.7-16.9); MCH 33.8 pg (25.7-33.7); MEAN CELL VOLUME 99.3 fl (80-96); MONO % 9.8 % (3.8-10.2); PLATELET COUNT 258 K/MM3 (134-434); RBC 2.42 M/mm3 (4.00-5.60); WHITE BLOOD COUNT 7.9 K/mm3 (4.0-10.0)
[2017-12-04 07:23] LABS: CHLORIDE 109 mmol/L (98-107); POTASSIUM 4.5 mmol/L (3.5-5.1); SODIUM 142 mmol/L (136-145)
[2017-12-04 07:40] LABS: ALBUMIN 2.8 g/dl (3.4-5.0); ALK PHOS 251 U/L (45-117); ANION GAP 9 (8-16); BILIRUBIN,TOTAL 0.3 mg/dL (0.2-1.0); BLOOD UREA NITROGEN 25 mg/dL (7-18); CALCIUM 8.6 mg/dL (8.5-10.1); CO2 24 mmol/L (21-32); CREATININE 0.9 mg/dL (0.7-1.3); GLUCOSE,RANDOM 107 mg/dL (74-106); SGOT/AST 22 U/L (15-37); SGPT/ALT 44 U/L (12-78); TOT PROT 5.8 g/dl (6.4-8.2)
[2017-12-04] MEDS ORDERED: DEXTROSE 5%-WATER 100 ML IVPB ONE ×2 (09:26→18:20)
[2017-12-04] MEDS ORDERED: PT OWN MED DRAWER 7, Y5N ONE (09:26)
[2017-12-04] MEDS ORDERED: PIPERACILLIN/TAZOBACTAM 3.375 GM VIAL IVPB ONE ×2 (09:26→18:20)
[2017-12-04] MEDS: TAMSULOSIN HCL 0.4 MG CAP.ER.24H (FP) PO SCH (10:03)
[2017-12-04] MEDS: FUROSEMIDE 20 MG TABLET (FP) PO SCH (10:03)
[2017-12-04] MEDS: LISINOPRIL 5 MG TABLET (FP) PO SCH (10:04)
[2017-12-04] MEDS: FOLIC ACID 1 MG TABLET (FP) PO SCH (10:04)
[2017-12-04] MEDS: CARVEDILOL 3.125 MG TABLET (FP) PO SCH ×2 (10:05→21:23)
--- NOTE | 2017-12-04 10:19 | PN ---
Progress Note, Physician History of Present Illness: patient stable doing well no complaints still with some pain at the tip of penis no hematuria - Current Medication List Current Medications: Active Medications Acetaminophen (Tylenol -) 650 mg PO Q6HPO [facility] Last Admin: 12/04/17 06:37 Dose: 650 mg Atorvastatin Calcium (Lipitor -) 10 mg PO HS [facility] Last Admin: 12/03/17 21:37 Dose: 10 mg Carvedilol (Coreg -) 3.125 mg PO BID [facility] Last Admin: 12/04/17 10:05 Dose: 3.125 mg Folic Acid (Folic Acid -) 1 mg PO DAILY [facility] Last Admin: 12/04/17 10:04 Dose: 1 mg Furosemide (Lasix -) 20 mg PO DAILY [facility] Last Admin: 12/04/17 10:03 Dose: 20 mg Piperacillin Sod/Tazobactam (Sod 3.375 gm/ Dextrose) 100 mls @ 200 mls/hr IVPB Q8H-IV [facility]; Protocol Last Admin: 12/04/17 10:02 Dose: 200 mls/hr Lisinopril (Prinivil) 2.5 mg PO DAILY [facility] Last Admin: 12/04/17 10:04 Dose: 2.5 mg Morphine Sulfate (Morphine Sulfate) 4 mg IVPUSH Q3H PRN PRN Reason: Pain Level 7-10 Last Admin: 12/03/17 21:37 Dose: 4 mg Oxycodone HCl (Roxicodone -) 10 mg PO Q6H PRN PRN Reason: PAIN LEVEL 4 - 6 Last Admin: 12/03/17 07:58 Dose: 10 mg Polyethylene Glycol (Miralax (For Daily Use) -) 17 gm PO Q24H PRN PRN Reason: CONSTIPATION Senna (Senna -) 2 tab PO HS PRN PRN Reason: CONSTIPATION Tamsulosin HCl (Flomax -) 0.8 mg PO DAILY@0830 [facility] Last Admin: 12/04/17 10:03 Dose: 0.8 mg - Objective Vital Signs: Vital Signs Temperature 98.6 F 12/04/17 08:35 Pulse Rate 70 12/04/17 08:35 Respiratory Rate 18 12/04/17 08:35 Blood Pressure 130/68 12/04/17 08:35 O2 Sat by Pulse Oximetry (%) 99 12/04/17 09:00 Constitutional: Yes: No Distress, Calm Cardiovascular: Yes: Regular Rate and Rhythm Respiratory: Yes: Regular, CTA Bilaterally Gastrointestinal: Yes: Normal Bowel Sounds, Soft Genitourinary: Yes: Banegas Present Musculoskeletal: Yes: WNL Extremities: Yes: WNL Neurological: Yes: Alert, Oriented Psychiatric: Yes: Alert, Oriented Labs: CBC, BMP 12/04/17 05:00 12/04/17 05:00 INR, PTT INR 1.88 (0.83-1.09) H 12/03/17 06:22 Assessment/Plan Problem List - Problems (1) Hematuria Code(s): R31.9 - HEMATURIA, UNSPECIFIED Qualifiers: Hematuria type: gross Qualified Code(s): R31.0 - Gross hematuria (2) Stricture of bladder neck Code(s): N32.0 - BLADDER-NECK OBSTRUCTION (3) Supratherapeutic INR Code(s): R79.1 - ABNORMAL COAGULATION PROFILE (4) Urinary retention Code(s): R33.9 - RETENTION OF URINE, UNSPECIFIED (5) Anxiety Code(s): F41.9 - ANXIETY DISORDER, UNSPECIFIED (6) Atrial fibrillation Code(s): I48.91 - UNSPECIFIED ATRIAL FIBRILLATION (7) Chest pain Code(s): R07.9 - CHEST PAIN, UNSPECIFIED 8 uti plan continue current mgmt continue abx rest as per the team as per urology
[2017-12-04] MEDS ORDERED: LIDOCAINE HCL 2% JELLY (30 ML/TUBE) TP PRN (12:15)
--- NOTE | 2017-12-04 12:23 | PN ---
Progress Note (short form) - Note Progress Note: pt seen/ examined. Awake/ comfortable c/c- pain at tip of penis-- cbi- cleared discussed with cardiology/ gu-- ok to restart on a/c - no plavix yet otherwise comfortable afebrile Vital Signs Temp 98.6 F 12/04/17 08:35 Pulse 70 12/04/17 08:35 Resp 18 12/04/17 08:35 BP 130/68 12/04/17 08:35 Pulse Ox 99 12/04/17 09:00 Intake & Output 12/03/17 12/04/17 12/04/17 23:59 11:59 23:59 Intake Total 65616 9360 Output Total 99334 30183 Balance -2029 -1540 Intake: IV 10 10 nss 10 10 IVPB 100 Oral 360 250 CBI Intake 63963 9000 Output: Urine 75922 82083 [place] [id number] Other: Voiding Method Indwelling Catheter Indwelling Catheter Bowel Movement No No Active Medications Acetaminophen (Tylenol -) [address] [facility] Last Admin: 12/04/17 06:37 Dose: 650 mg Atorvastatin Calcium (Lipitor -) [address] [facility] Last Admin: 12/03/17 21:37 Dose: 10 mg Carvedilol (Coreg -) 3.[address] [facility] Last Admin: 12/04/17 10:05 Dose: 3.125 mg Folic Acid (Folic Acid -) [address] [facility] Last Admin: 12/04/17 10:04 Dose: 1 mg Furosemide (Lasix -) [address] [facility] Last Admin: 12/04/17 10:03 Dose: 20 mg Piperacillin Sod/Tazobactam (Sod 3.375 gm/ Dextrose) 100 mls @ 200 mls/hr IVPB Q8H-IV [facility]; Protocol Last Admin: 12/04/17 10:02 Dose: 200 mls/hr Lidocaine HCl (Xylocaine 2% Jelly) 0 applic TP DAILY PRN PRN Reason: PAIN LEVEL 6-10 Lisinopril (Prinivil) 2.[address] [facility] Last Admin: 12/04/17 10:04 Dose: 2.5 mg Morphine Sulfate (Morphine Sulfate) 4 mg IVPUSH Q3H PRN PRN Reason: Pain Level 7-10 Last Admin: 12/03/17 21:37 Dose: 4 mg Oxycodone HCl (Roxicodone -) 10 mg PO Q6H PRN PRN Reason: PAIN LEVEL 4 - 6 Last Admin: 12/03/17 07:58 Dose: 10 mg Polyethylene Glycol (Miralax (For Daily Use) -) 17 gm PO Q24H PRN PRN Reason: CONSTIPATION Senna (Senna -) 2 tab PO HS PRN PRN Reason: CONSTIPATION Tamsulosin HCl (Flomax -) 0.8 mg PO DAILY@0830 [facility] Last Admin: 12/04/17 10:03 Dose: 0.8 mg CBC, BMP 12/04/17 05:00 12/04/17 05:00 Physical Examination Constitutional: Yes: awake/ comfortable Eyes: Yes: Conjunctiva Clear Neck: Yes: Supple. no jvd Cardiovascular: Yes: Regular Rate and Rhythm Respiratory: Yes: CTA Bilaterally Gastrointestinal: Yes: Soft/ non tender Renal/: Yes: Banegas Present, Other (cbi) Edema: No Neurological: Yes: Alert Assessment/Plan better Abx f/u cultures monitor h/h-- stable transfuse prn a/c on hold-- restart today heparin + coumadin per cardiology- will not give bolus daily oob - chair physical therapy Lidocaine jelly locally at tip of penis will follow discussed with nursing staff also. Problem List - Problems (1) Hematuria Code(s): R31.9 - HEMATURIA, UNSPECIFIED Qualifiers: Hematuria type: gross Qualified Code(s): R31.0 - Gross hematuria (2) Stricture of bladder neck Code(s): N32.0 - BLADDER-NECK OBSTRUCTION (3) Urinary retention Code(s): R33.9 - RETENTION OF URINE, UNSPECIFIED (4) Anxiety Code(s): F41.9 - ANXIETY DISORDER, UNSPECIFIED (5) Atrial fibrillation Code(s): I48.91 - UNSPECIFIED ATRIAL FIBRILLATION (6) History of coronary artery stent placement Code(s): Z95.5 - PRESENCE OF CORONARY ANGIOPLASTY IMPLANT AND GRAFT (7) Hx of CABG Code(s): Z95.1 - PRESENCE OF AORTOCORONARY BYPASS GRAFT (8) Obesity Code(s): E66.9 - OBESITY, UNSPECIFIED
[2017-12-04] MEDS ORDERED: HEPARIN NA (PORCINE) 5,000 UNITS/ML 1ML VIAL IVPUSH PRN ×2 (12:24)
[2017-12-04] MEDS: morphine SULFATE 4 MG/ML VIAL IVPUSH PRN ×2 (12:44→21:24)
[2017-12-04] MEDS: POLYETHYLENE GLYCOL 3350 119 GM BTL PO PRN (12:47)
[2017-12-04 13:40] LABS: INR 1.21 (0.83-1.09); PROTHROMBIN TIME (PATIENT) 13.7 SEC (9.7-13.0)
[2017-12-04] MEDS: HEPARIN SOD,PORK IN 0.45% NACL 25,000 UNITS/500 ML INFUS.BAG IVPB SCH (13:58)
--- NOTE | 2017-12-04 15:25 | PN ---
Progress Note (short form) - Note Progress Note: 77 year old male well known to our practice with hx of Ca of the prostate treated with Radiation. Developed urinary retention due to severe urethral stricture and bladder neck contracture. He needs to be off his anticoaulants before he could be scheduled for TUVP. He will continue to have the bishop catheter. Will follow as necessary. Thank you
[2017-12-04] MEDS: WARFARIN NA 5 MG TABLET (UD) PO SCH (18:23)
[2017-12-04] MEDS: ATORVASTATIN CA 10 MG TABLET (FP) PO SCH (21:23)
[2017-12-05] MEDS: ACETAMINOPHEN 325 MG TABLET (FP) PO SCH ×3 (00:13→14:53)
[2017-12-05] MEDS ORDERED: PIPERACILLIN/TAZOBACTAM 3.375 GM VIAL IVPB ONE ×2 (01:21→09:34)
[2017-12-05] MEDS ORDERED: DEXTROSE 5%-WATER 100 ML IVPB ONE ×2 (01:22→09:34)
[2017-12-05] MEDS: PIPERACILLIN/TAZOB 3.375 GM 3.375 GM in DEXTROSE 5%-WATER 100 ML IVPB SCH ×4 (01:24→17:15)
[2017-12-05 06:35] LABS: BASO % 0.5 % (0-2.0); EOS % 4.5 % (0-4.5); HEMATOCRIT 24.1 % (35.4-49); HEMOGLOBIN 8.2 GM/dL (11.7-16.9); LYMPH % 12.6 % (8-40); MCH 33.7 pg (25.7-33.7); MCHC 33.9 g/dl (32.0-35.9); MEAN CELL VOLUME 99.4 fl (80-96); MEAN PLT VOLUME 7.7 fl (7.5-11.1); MONO % 10.3 % (3.8-10.2); NEUT % 72.1 % (42.8-82.8); PLATELET COUNT 266 K/MM3 (134-434); RBC 2.42 M/mm3 (4.00-5.60); RDW 13.9 % (11.9-15.9); WHITE BLOOD COUNT 8.7 K/mm3 (4.0-10.0)
[2017-12-05 06:58] LABS: ALBUMIN 2.7 g/dl (3.4-5.0); ANION GAP 4 (8-16); BILIRUBIN,TOTAL 0.2 mg/dL (0.2-1.0); BLOOD UREA NITROGEN 22 mg/dL (7-18); CALCIUM 8.2 mg/dL (8.5-10.1); CHLORIDE 107 mmol/L (98-107); CO2 28 mmol/L (21-32); GLUCOSE,RANDOM 125 mg/dL (74-106); POTASSIUM 4.8 mmol/L (3.5-5.1); SGOT/AST 25 U/L (15-37); SGPT/ALT 40 U/L (12-78); SODIUM 139 mmol/L (136-145)
[2017-12-05 07:03] LABS: INR 1.29 (0.83-1.09); PROTHROMBIN TIME (PATIENT) 14.6 SEC (9.7-13.0)
[2017-12-05 07:13] LABS: ALK PHOS 235 U/L (45-117); TOT PROT 5.5 g/dl (6.4-8.2)
[2017-12-05] MEDS: FUROSEMIDE 20 MG TABLET (FP) PO SCH (09:44)
[2017-12-05] MEDS: LISINOPRIL 5 MG TABLET (FP) PO SCH (09:44)
[2017-12-05] MEDS: FOLIC ACID 1 MG TABLET (FP) PO SCH (09:44)
[2017-12-05] MEDS: TAMSULOSIN HCL 0.4 MG CAP.ER.24H (FP) PO SCH (09:44)
[2017-12-05] MEDS: CARVEDILOL 3.125 MG TABLET (FP) PO SCH ×2 (09:45→22:54)
[2017-12-05] MEDS: POLYETHYLENE GLYCOL 3350 119 GM BTL PO PRN (09:46)
[2017-12-05] MEDS: SENNOSIDES 8.6MG TABLET (FP) PO PRN (09:59)
[2017-12-05] MEDS: morphine SULFATE 4 MG/ML VIAL IVPUSH PRN (09:59)
[2017-12-05] MEDS ORDERED: SODIUM PHOSPHATE/NA BIPHOS 133 ML ENEMA PR PRN (12:23)
--- NOTE | 2017-12-05 12:25 | PN ---
Progress Note (short form) - Note Progress Note: Much better denies pain. Having bm alert/awake Vital Signs Temp 98.3 F 12/05/17 06:00 Pulse 56 L 12/05/17 06:00 Resp 20 12/05/17 06:00 BP 110/52 12/05/17 06:00 Pulse Ox 98 12/04/17 21:00 Intake & Output 12/04/17 12/05/17 12/05/17 23:59 11:59 23:59 Intake Total 393 590 Output Total 500 300 Balance -107 290 Weight 198 lb 9.6 oz Intake: IV 33 240 HEPARIN-1/2NS 25,000 23 230 UNITS/500 25,000 units In 500 ml @ 1,000 UNITS/HR 20 mls/hr IVPB TITR [facility] Rx#:[id number] nss 10 10 IVPB 100 Oral 360 250 Output: Urine 500 300 Banegas 500 300 Other: Voiding Method Indwelling Catheter Indwelling Catheter Bowel Movement No Yes: extra large Weight Measurement Method Standing Scale Active Medications Acetaminophen (Tylenol -) 650 mg PO Q6HPO [facility] Last Admin: 12/05/17 05:47 Dose: 650 mg Atorvastatin Calcium (Lipitor -) 10 mg PO HS [facility] Last Admin: 12/04/17 21:23 Dose: 10 mg Carvedilol (Coreg -) 3.125 mg PO BID [facility] Last Admin: 12/05/17 09:45 Dose: 3.125 mg Folic Acid (Folic Acid -) 1 mg PO DAILY [facility] Last Admin: 12/05/17 09:44 Dose: 1 mg Furosemide (Lasix -) 20 mg PO DAILY [facility] Last Admin: 12/05/17 09:44 Dose: 20 mg Heparin Sodium (Porcine) (Heparin -) 1,000 unit IVPUSH PRN PRN PRN Reason: Heparin Heparin Sodium (Porcine) (Heparin -) 5,000 unit IVPUSH PRN PRN PRN Reason: Heparin Last Admin: 12/04/17 22:45 Dose: 5,000 unit Piperacillin Sod/Tazobactam (Sod 3.375 gm/ Dextrose) 100 mls @ 200 mls/hr IVPB Q8H-IV [facility]; Protocol Last Admin: 12/05/17 09:46 Dose: 200 mls/hr HEPARIN SOD,PORK IN 0.45% NACL (Heparin-1/2ns 25,000 Units/500) 25,000 units in 500 mls @ 20 mls/hr IVPB TITR [facility]; Protocol Last Admin: 12/04/17 13:58 Dose: 1,000 units/hr, 20 mls/hr Lidocaine HCl (Xylocaine 2% Jelly) 0 applic TP DAILY PRN PRN Reason: PAIN LEVEL 6-10 Last Admin: 12/04/17 18:24 Dose: 1 applic Lisinopril (Prinivil) 2.5 mg PO DAILY [facility] Last Admin: 12/05/17 09:44 Dose: 2.5 mg Morphine Sulfate (Morphine Sulfate) 4 mg IVPUSH Q3H PRN PRN Reason: Pain Level 7-10 Last Admin: 12/05/17 09:59 Dose: 4 mg Oxycodone HCl (Roxicodone -) 10 mg PO Q6H PRN PRN Reason: PAIN LEVEL 4 - 6 Last Admin: 12/03/17 07:58 Dose: 10 mg Polyethylene Glycol (Miralax (For Daily Use) -) 17 gm PO Q24H PRN PRN Reason: CONSTIPATION Last Admin: 12/05/17 09:46 Dose: 17 gm Senna (Senna -) 2 tab PO HS PRN PRN Reason: CONSTIPATION Last Admin: 12/05/17 09:59 Dose: 2 tab Sodium Phosphate (Fleet Adult Rectal Enema -) 133 ml [place] DAILY PRN PRN Reason: CONSTIPATION Tamsulosin HCl (Flomax -) 0.8 mg PO DAILY@0830 [facility] Last Admin: 12/05/17 09:44 Dose: 0.8 mg Warfarin Sodium (Coumadin -) 5 mg PO DAILY@1800 [facility] Last Admin: 12/04/17 18:23 Dose: 5 mg CBC, BMP 12/05/17 05:30 12/05/17 05:30 Physical Examination Constitutional: Yes: awake/ comfortable Eyes: Yes: Conjunctiva Clear Neck: Yes: Supple. no jvd Cardiovascular: Yes: Regular Rate and Rhythm Respiratory: Yes: CTA Bilaterally Gastrointestinal: Yes: Soft/ non tender. bs + Renal/: Yes: Banegas Present, Edema: No Neurological: Yes: Alert Assessment/Plan better Abx f/u cultures monitor h/h-- stable transfuse prn heparin + coumadin daily oob - chair physical therapy Lidocaine jelly locally at tip of penis-- helped a lot will follow discussed with nursing staff also. Problem List - Problems (1) Hematuria Code(s): R31.9 - HEMATURIA, UNSPECIFIED Qualifiers: Hematuria type: gross Qualified Code(s): R31.0 - Gross hematuria (2) Stricture of bladder neck Code(s): N32.0 - BLADDER-NECK OBSTRUCTION (3) Urinary retention Code(s): R33.9 - RETENTION OF URINE, UNSPECIFIED (4) Anxiety Code(s): F41.9 - ANXIETY DISORDER, UNSPECIFIED (5) Atrial fibrillation Code(s): I48.91 - UNSPECIFIED ATRIAL FIBRILLATION (6) History of coronary artery stent placement Code(s): Z95.5 - PRESENCE OF CORONARY ANGIOPLASTY IMPLANT AND GRAFT (7) Hx of CABG Code(s): Z95.1 - PRESENCE OF AORTOCORONARY BYPASS GRAFT (8) Obesity Code(s): E66.9 - OBESITY, UNSPECIFIED
[2017-12-05] MEDS: HEPARIN SOD,PORK IN 0.45% NACL 25,000 UNITS/500 ML INFUS.BAG IVPB SCH (14:52)
--- NOTE | 2017-12-05 15:42 | PN ---
Progress Note, Physician History of Present Illness: stable hematuria has cleared up - Current Medication List Current Medications: Active Medications Acetaminophen (Tylenol -) 650 mg PO Q6HPO [facility] Last Admin: 12/05/17 14:53 Dose: 650 mg Atorvastatin Calcium (Lipitor -) 10 mg PO HS [facility] Last Admin: 12/04/17 21:23 Dose: 10 mg Carvedilol (Coreg -) 3.125 mg PO BID [facility] Last Admin: 12/05/17 09:45 Dose: 3.125 mg Folic Acid (Folic Acid -) 1 mg PO DAILY [facility] Last Admin: 12/05/17 09:44 Dose: 1 mg Furosemide (Lasix -) 20 mg PO DAILY [facility] Last Admin: 12/05/17 09:44 Dose: 20 mg Heparin Sodium (Porcine) (Heparin -) 1,000 unit IVPUSH PRN PRN PRN Reason: Heparin Heparin Sodium (Porcine) (Heparin -) 5,000 unit IVPUSH PRN PRN PRN Reason: Heparin Last Admin: 12/04/17 22:45 Dose: 5,000 unit Piperacillin Sod/Tazobactam (Sod 3.375 gm/ Dextrose) 100 mls @ 200 mls/hr IVPB Q8H-IV [facility]; Protocol Last Admin: 12/05/17 09:46 Dose: 200 mls/hr HEPARIN SOD,PORK IN 0.45% NACL (Heparin-1/2ns 25,000 Units/500) 25,000 units in 500 mls @ 20 mls/hr IVPB TITR [facility]; Protocol Last Admin: 12/05/17 14:52 Dose: 1,150 units/hr, 23 mls/hr Lidocaine HCl (Xylocaine 2% Jelly) 0 applic TP DAILY PRN PRN Reason: PAIN LEVEL 6-10 Last Admin: 12/04/17 18:24 Dose: 1 applic Lisinopril (Prinivil) 2.5 mg PO DAILY [facility] Last Admin: 12/05/17 09:44 Dose: 2.5 mg Oxycodone HCl (Roxicodone -) 5 mg PO Q6H PRN PRN Reason: PAIN LEVEL 6-10 Polyethylene Glycol (Miralax (For Daily Use) -) 17 gm PO Q24H PRN PRN Reason: CONSTIPATION Last Admin: 12/05/17 09:46 Dose: 17 gm Senna (Senna -) 2 tab PO HS PRN PRN Reason: CONSTIPATION Last Admin: 12/05/17 09:59 Dose: 2 tab Sodium Phosphate (Fleet Adult Rectal Enema -) 133 ml [place] DAILY PRN PRN Reason: CONSTIPATION Last Admin: 12/05/17 11:52 Dose: 133 ml Tamsulosin HCl (Flomax -) 0.8 mg PO DAILY@0830 [facility] Last Admin: 12/05/17 09:44 Dose: 0.8 mg Warfarin Sodium (Coumadin -) 5 mg PO DAILY@1800 [facility] Last Admin: 12/04/17 18:23 Dose: 5 mg - Objective Vital Signs: Vital Signs Temperature 98.2 F 12/05/17 14:33 Pulse Rate 57 L 12/05/17 14:33 Respiratory Rate 20 12/05/17 14:33 Blood Pressure 105/65 12/05/17 14:33 O2 Sat by Pulse Oximetry (%) 98 12/05/17 09:00 Constitutional: Yes: No Distress, Calm Cardiovascular: Yes: Regular Rate and Rhythm Respiratory: Yes: Regular, CTA Bilaterally Gastrointestinal: Yes: Normal Bowel Sounds, Soft Genitourinary: Yes: Banegas Present Musculoskeletal: Yes: WNL Extremities: Yes: WNL Neurological: Yes: Alert, Oriented Psychiatric: Yes: Alert, Oriented Labs: CBC, BMP 12/05/17 05:30 12/05/17 05:30 INR, PTT INR 1.29 (0.83-1.09) H 12/05/17 05:30 Assessment/Plan Problem List - Problems (1) Hematuria Code(s): R31.9 - HEMATURIA, UNSPECIFIED Qualifiers: Hematuria type: gross Qualified Code(s): R31.0 - Gross hematuria (2) Stricture of bladder neck Code(s): N32.0 - BLADDER-NECK OBSTRUCTION (3) Supratherapeutic INR Code(s): R79.1 - ABNORMAL COAGULATION PROFILE (4) Urinary retention Code(s): R33.9 - RETENTION OF URINE, UNSPECIFIED (5) Anxiety Code(s): F41.9 - ANXIETY DISORDER, UNSPECIFIED (6) Atrial fibrillation Code(s): I48.91 - UNSPECIFIED ATRIAL FIBRILLATION (7) Chest pain Code(s): R07.9 - CHEST PAIN, UNSPECIFIED 8 uti plan continue current mgmt continue abx monitor hematuria close watch for clotting
[2017-12-05] MEDS: WARFARIN NA 5 MG TABLET (UD) PO SCH ×2 (16:46→17:16)
[2017-12-05] MEDS: ATORVASTATIN CA 10 MG TABLET (FP) PO SCH (22:54)
[2017-12-05] MEDS: MELATONIN 5 MG TABLETS PO PRN (22:55)
[2017-12-06] MEDS: PIPERACILLIN/TAZOB 3.375 GM 3.375 GM in DEXTROSE 5%-WATER 100 ML IVPB SCH ×2 (02:00→09:12)
[2017-12-06] MEDS ORDERED: DEXTROSE 5%-WATER 100 ML IVPB ONE ×2 (03:12→08:53)
[2017-12-06] MEDS ORDERED: PIPERACILLIN/TAZOBACTAM 3.375 GM VIAL IVPB ONE ×2 (03:12→08:53)
[2017-12-06] MEDS: ACETAMINOPHEN 325 MG TABLET (FP) PO SCH ×5 (06:33→17:47)
[2017-12-06 07:32] LABS: BASO % 0.7 % (0-2.0); EOS % 5.6 % (0-4.5); HEMATOCRIT 23.7 % (35.4-49); HEMOGLOBIN 8.1 GM/dL (11.7-16.9); LYMPH % 18.9 % (8-40); MCH 33.8 pg (25.7-33.7); MCHC 34.2 g/dl (32.0-35.9); MEAN CELL VOLUME 98.8 fl (80-96); MEAN PLT VOLUME 7.9 fl (7.5-11.1); MONO % 11.5 % (3.8-10.2); NEUT % 63.3 % (42.8-82.8); PLATELET COUNT 270 K/MM3 (134-434); RDW 14.1 % (11.9-15.9); WHITE BLOOD COUNT 6.7 K/mm3 (4.0-10.0)
[2017-12-06 07:53] LABS: INR 1.51 (0.83-1.09); PROTHROMBIN TIME (PATIENT) 17.1 SEC (9.7-13.0)
[2017-12-06 08:06] LABS: ALBUMIN 2.6 g/dl (3.4-5.0); ANION GAP 10 (8-16); BLOOD UREA NITROGEN 21 mg/dL (7-18); CALCIUM 8.5 mg/dL (8.5-10.1); CHLORIDE 109 mmol/L (98-107); CO2 23 mmol/L (21-32); GLUCOSE,RANDOM 107 mg/dL (74-106); POTASSIUM 4.2 mmol/L (3.5-5.1); SODIUM 142 mmol/L (136-145)
[2017-12-06 08:09] LABS: ALK PHOS 212 U/L (45-117); BILIRUBIN,TOTAL 0.2 mg/dL (0.2-1.0); SGOT/AST 13 U/L (15-37); SGPT/ALT 32 U/L (12-78); TOT PROT 5.5 g/dl (6.4-8.2)
--- NOTE | 2017-12-06 08:09 | PN ---
Progress Note, Physician Chief Complaint: Pt, with at bedside, feels much better (no spasmodic lower abdominal pain) . Good appetite. History of Present Illness: The patient is a 77 year old white male (rajiv Owusu) with a history of CAD--> CABG; LCx DEStent 2014, angioplasty LLE 2018, mild systolic LV dysfunction, HTN , HLD, Prostate cancer, urethral stricture (admitted 11/10/17 for stricture; found to have collection of pus, with ensuing septic shock and transient EKG STT changes,) who presents for evaluation of abdominal pain. The patient report acute onset worsening lower abdominal pain beginning around 5am this morning, prompting his presentation to the ED for further evaluation. 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 The patient notes that his catheter has been clogged before, but he has never experienced pain this severe before. He otherwise denies fevers, chills, SOB, chest pain, nausea, vomiting or changes with bowel movements. - Current Medication List Current Medications: Active Medications Acetaminophen (Tylenol -) 650 mg PO Q6HPO [facility] Last Admin: 12/06/17 07:50 Dose: Not Given Atorvastatin Calcium (Lipitor -) 10 mg PO HS [facility] Last Admin: 12/05/17 22:54 Dose: 10 mg Carvedilol (Coreg -) 3.125 mg PO BID [facility] Last Admin: 12/05/17 22:54 Dose: 3.125 mg Folic Acid (Folic Acid -) 1 mg PO DAILY [facility] Last Admin: 12/05/17 09:44 Dose: 1 mg Furosemide (Lasix -) 20 mg PO DAILY [facility] Last Admin: 12/05/17 09:44 Dose: 20 mg Heparin Sodium (Porcine) (Heparin -) 1,000 unit IVPUSH PRN PRN PRN Reason: Heparin Heparin Sodium (Porcine) (Heparin -) 5,000 unit IVPUSH PRN PRN PRN Reason: Heparin Last Admin: 12/04/17 22:45 Dose: 5,000 unit Piperacillin Sod/Tazobactam (Sod 3.375 gm/ Dextrose) 100 mls @ 200 mls/hr IVPB Q8H-IV [facility]; Protocol Last Admin: 12/06/17 02:00 Dose: 200 mls/hr HEPARIN SOD,PORK IN 0.45% NACL (Heparin-1/2ns 25,000 Units/500) 25,000 units in 500 mls @ 20 mls/hr IVPB TITR [facility]; Protocol Last Admin: 12/05/17 14:52 Dose: 1,150 units/hr, 23 mls/hr Lidocaine HCl (Xylocaine 2% Jelly) 0 applic TP DAILY PRN PRN Reason: PAIN LEVEL 6-10 Last Admin: 12/04/17 18:24 Dose: 1 applic Lisinopril (Prinivil) 2.5 mg PO DAILY [facility] Last Admin: 12/05/17 09:44 Dose: 2.5 mg Melatonin (Melatonin) 5 mg PO HS PRN PRN Reason: INSOMNIA Last Admin: 12/05/17 22:55 Dose: 5 mg Oxycodone HCl (Roxicodone -) 5 mg PO Q6H PRN PRN Reason: PAIN LEVEL 6-10 Polyethylene Glycol (Miralax (For Daily Use) -) 17 gm PO Q24H PRN PRN Reason: CONSTIPATION Last Admin: 12/05/17 09:46 Dose: 17 gm Senna (Senna -) 2 tab PO HS PRN PRN Reason: CONSTIPATION Last Admin: 12/05/17 09:59 Dose: 2 tab Sodium Phosphate (Fleet Adult Rectal Enema -) 133 ml [place] DAILY PRN PRN Reason: CONSTIPATION Last Admin: 12/05/17 11:52 Dose: 133 ml Tamsulosin HCl (Flomax -) 0.8 mg PO DAILY@0830 [facility] Last Admin: 12/05/17 09:44 Dose: 0.8 mg Warfarin Sodium (Coumadin -) 5 mg PO DAILY@1800 [facility] Last Admin: 12/05/17 17:16 Dose: Not Given - Objective Vital Signs: Vital Signs Temperature 98.6 F 12/06/17 02:09 Pulse Rate 67 12/06/17 06:00 Respiratory Rate 20 12/06/17 06:00 Blood Pressure 96/40 12/06/17 06:00 O2 Sat by Pulse Oximetry (%) 98 12/05/17 09:00 Constitutional: Yes: Calm Eyes: Yes: WNL HENT: Yes: WNL Neck: Yes: WNL Cardiovascular: Yes: S1, S2 Respiratory: Yes: WNL Gastrointestinal: Yes: Soft ...Rectal Exam: Yes: Deferred Genitourinary: Yes: Bishop Present (no obvious clots or blood). No: Anuria Musculoskeletal: Yes: Muscle Weakness Extremities: Yes: WNL Edema: No Peripheral Pulses WNL: Yes Integumentary: Yes: WNL Neurological: Yes: WNL Psychiatric: Yes: WNL Labs: CBC, BMP 12/06/17 06:30 INR, PTT INR 1.51 (0.83-1.09) H 12/06/17 06:30 Problem List - Problems (1) Supratherapeutic INR Assessment/Plan: IV heparin until warfarin-->INR 2-3. Code(s): R79.1 - ABNORMAL COAGULATION PROFILE (2) Hematuria Assessment/Plan: F No obvious clots or hematuria now Now on warfarin. F/u with . Code(s): R31.9 - HEMATURIA, UNSPECIFIED Qualifiers: Hematuria type: gross Qualified Code(s): R31.0 - Gross hematuria (3) Stricture of bladder neck Code(s): N32.0 - BLADDER-NECK OBSTRUCTION (4) Urinary retention Code(s): R33.9 - RETENTION OF URINE, UNSPECIFIED (5) Acute on chronic systolic (congestive) heart failure Assessment/Plan: On carvedilol, lisinopril, furosemide. F/u BUN/Cr, electrolytes, daily weight, Is and Os. Code(s): I50.23 - ACUTE ON CHRONIC SYSTOLIC (CONGESTIVE) HEART FAILURE (6) Anxiety Code(s): F41.9 - ANXIETY DISORDER, UNSPECIFIED (7) Atrial fibrillation Assessment/Plan: On carvedilol for HR control. On warfarin for anticoagulation. Code(s): I48.91 - UNSPECIFIED ATRIAL FIBRILLATION (8) Chest pain Assessment/Plan: EKG: NSR: nonspecific STT changes (no significant change from that of last admission 11/10/17). TNI 0.09-->0.02. Code(s): R07.9 - CHEST PAIN, UNSPECIFIED (9) HTN (hypertension) Code(s): I10 - ESSENTIAL (PRIMARY) HYPERTENSION (10) Herpes simplex Code(s): B00.9 - HERPESVIRAL INFECTION, UNSPECIFIED (11) History of coronary artery stent placement Assessment/Plan: Restart ASA and clopidogrel if no bleeding with warfarin. Code(s): Z95.5 - PRESENCE OF CORONARY ANGIOPLASTY IMPLANT AND GRAFT (12) Hx of CABG Code(s): Z95.1 - PRESENCE OF AORTOCORONARY BYPASS GRAFT (13) Hyperlipidemia Assessment/Plan: Keep LDL cholesterol below 70 mg/dL (on atorvastatin; increase dose if necessary ). Weight loss, diet modification, exercise are important in lowering this and other cardiac risks. Code(s): E78.5 - HYPERLIPIDEMIA, UNSPECIFIED (14) PAD (peripheral artery disease) Code(s): I73.9 - PERIPHERAL VASCULAR DISEASE, UNSPECIFIED
[2017-12-06] MEDS: TAMSULOSIN HCL 0.4 MG CAP.ER.24H (FP) PO SCH (09:09)
[2017-12-06] MEDS: FOLIC ACID 1 MG TABLET (FP) PO SCH (09:09)
[2017-12-06] MEDS: FUROSEMIDE 20 MG TABLET (FP) PO SCH (09:10)
[2017-12-06] MEDS: LISINOPRIL 5 MG TABLET (FP) PO SCH (09:10)
[2017-12-06] MEDS: CARVEDILOL 3.125 MG TABLET (FP) PO SCH ×2 (09:12→21:40)
[2017-12-06] MEDS ORDERED: ONDANSETRON 4 MG/2 ML VIAL ONE (09:18)
[2017-12-06] MEDS: PANTOPRAZOLE SODIUM 40 MG VIAL IVPUSH SCH (11:26)
--- NOTE | 2017-12-06 11:54 | PN ---
Progress Note, Physician Chief Complaint: Cardiology f/u for Dr. Mata History of Present Illness: Urinary retention due to severe urethral stricture and bladder neck contracture treated with bishop. No hematuria, reports gassiness, slow afib. - Current Medication List Current Medications: Active Medications Acetaminophen (Tylenol -) 650 mg PO Q6HPO [facility] Last Admin: 12/06/17 07:50 Dose: Not Given Atorvastatin Calcium (Lipitor -) 10 mg PO HS [facility] Last Admin: 12/05/17 22:54 Dose: 10 mg Carvedilol (Coreg -) 3.125 mg PO BID [facility] Last Admin: 12/06/17 09:12 Dose: 3.125 mg Folic Acid (Folic Acid -) 1 mg PO DAILY [facility] Last Admin: 12/06/17 09:09 Dose: 1 mg Furosemide (Lasix -) 20 mg PO DAILY [facility] Last Admin: 12/06/17 09:10 Dose: 20 mg Heparin Sodium (Porcine) (Heparin -) 1,000 unit IVPUSH PRN PRN PRN Reason: Heparin Heparin Sodium (Porcine) (Heparin -) 5,000 unit IVPUSH PRN PRN PRN Reason: Heparin Last Admin: 12/04/17 22:45 Dose: 5,000 unit Piperacillin Sod/Tazobactam (Sod 3.375 gm/ Dextrose) 100 mls @ 200 mls/hr IVPB Q8H-IV [facility]; Protocol Last Admin: 12/06/17 09:12 Dose: 200 mls/hr HEPARIN SOD,PORK IN 0.45% NACL (Heparin-1/2ns 25,000 Units/500) 25,000 units in 500 mls @ 20 mls/hr IVPB TITR [facility]; Protocol Last Admin: 12/05/17 14:52 Dose: 1,150 units/hr, 23 mls/hr Lidocaine HCl (Xylocaine 2% Jelly) 0 applic TP DAILY PRN PRN Reason: PAIN LEVEL 6-10 Last Admin: 12/04/17 18:24 Dose: 1 applic Lisinopril (Prinivil) 2.5 mg PO DAILY [facility] Last Admin: 12/06/17 09:10 Dose: 2.5 mg Melatonin (Melatonin) 5 mg PO HS PRN PRN Reason: INSOMNIA Last Admin: 12/05/17 22:55 Dose: 5 mg Oxycodone HCl (Roxicodone -) 5 mg PO Q6H PRN PRN Reason: PAIN LEVEL 6-10 Pantoprazole Sodium (Protonix Iv) 40 mg IVPUSH DAILY [facility] Last Admin: 12/06/17 11:26 Dose: 40 mg Polyethylene Glycol (Miralax (For Daily Use) -) 17 gm PO Q24H PRN PRN Reason: CONSTIPATION Last Admin: 12/05/17 09:46 Dose: 17 gm Senna (Senna -) 2 tab PO HS PRN PRN Reason: CONSTIPATION Last Admin: 12/05/17 09:59 Dose: 2 tab Sodium Phosphate (Fleet Adult Rectal Enema -) 133 ml [place] DAILY PRN PRN Reason: CONSTIPATION Last Admin: 12/05/17 11:52 Dose: 133 ml Tamsulosin HCl (Flomax -) 0.8 mg PO DAILY@0830 [facility] Last Admin: 12/06/17 09:09 Dose: 0.8 mg Warfarin Sodium (Coumadin -) 5 mg PO DAILY@1800 [facility] Last Admin: 12/05/17 17:16 Dose: Not Given - Objective Vital Signs: Vital Signs Temperature 98.1 F 12/06/17 10:00 Pulse Rate 60 12/06/17 10:00 Respiratory Rate 20 12/06/17 10:00 Blood Pressure 100/71 12/06/17 10:00 O2 Sat by Pulse Oximetry (%) 98 12/05/17 09:00 Constitutional: Yes: No Distress, Calm Neck: Yes: Supple Cardiovascular: Yes: Pulse Irregular Respiratory: Yes: Regular, Diminished Gastrointestinal: Yes: Normal Bowel Sounds, Soft Genitourinary: Yes: Bishop Present Edema: No Labs: CBC, BMP 12/06/17 06:30 12/06/17 06:30 INR, PTT INR 1.51 (0.83-1.09) H 12/06/17 06:30 - ....Imaging EKG: Report Reviewed (Tele: Slow afib) Assessment/Plan - Problems (1) Subtherapeutic INR Assessment/Plan: IV heparin until warfarin-->INR 2-3. Code(s): R79.1 - ABNORMAL COAGULATION PROFILE (2) Hematuria Assessment/Plan: No obvious clots or hematuria now Now on warfarin. F/u with , complete empiric abx course Code(s): R31.9 - HEMATURIA, UNSPECIFIED Qualifiers: Hematuria type: gross Qualified Code(s): R31.0 - Gross hematuria (3) Stricture of bladder neck Code(s): N32.0 - BLADDER-NECK OBSTRUCTION (4) Urinary retention Code(s): R33.9 - RETENTION OF URINE, UNSPECIFIED (5) Acute on chronic systolic (congestive) heart failure Assessment/Plan: On carvedilol 3.125 bid, lisinopril 2.5 qd, furosemide 20 qd. F/u BUN/Cr, electrolytes, daily weight, Is and Os. Code(s): I50.23 - ACUTE ON CHRONIC SYSTOLIC (CONGESTIVE) HEART FAILURE (6) Anxiety Code(s): F41.9 - ANXIETY DISORDER, UNSPECIFIED (7) Atrial fibrillation Assessment/Plan: On carvedilol for HR control with hold parameters. On warfarin for anticoagulation. Code(s): I48.91 - UNSPECIFIED ATRIAL FIBRILLATION (8) Chest pain Assessment/Plan: EKG: NSR: nonspecific STT changes (no significant change from that of last admission 11/10/17). TNI 0.09-->0.02. Code(s): R07.9 - CHEST PAIN, UNSPECIFIED (9) HTN (hypertension) Code(s): I10 - ESSENTIAL (PRIMARY) HYPERTENSION (10) Herpes simplex Code(s): B00.9 - HERPESVIRAL INFECTION, UNSPECIFIED (11) History of coronary artery stent placement Assessment/Plan: Restart ASA and clopidogrel if no bleeding with warfarin. Code(s): Z95.5 - PRESENCE OF CORONARY ANGIOPLASTY IMPLANT AND GRAFT (12) Hx of CABG Code(s): Z95.1 - PRESENCE OF AORTOCORONARY BYPASS GRAFT (13) Hyperlipidemia Assessment/Plan: Keep LDL cholesterol below 70 mg/dL (on atorvastatin; increase dose if necessary ). Weight loss, diet modification, exercise are important in lowering this and other cardiac risks. Code(s): E78.5 - HYPERLIPIDEMIA, UNSPECIFIED (14) PAD (peripheral artery disease) Code(s): I73.9 - PERIPHERAL VASCULAR DISEASE, UNSPECIFIED
--- NOTE | 2017-12-06 13:47 | PN ---
Progress Note, Physician History of Present Illness: Had burping / upset stomach Got Zofron - not much relief Much better with i/v protonix sitting in chair - Current Medication List Current Medications: Active Medications Acetaminophen (Tylenol -) 650 mg PO Q6HPO [facility] Last Admin: 12/06/17 07:50 Dose: Not Given Atorvastatin Calcium (Lipitor -) 10 mg PO HS [facility] Last Admin: 12/05/17 22:54 Dose: 10 mg Carvedilol (Coreg -) 3.125 mg PO BID [facility] Folic Acid (Folic Acid -) 1 mg PO DAILY [facility] Last Admin: 12/06/17 09:09 Dose: 1 mg Furosemide (Lasix -) 20 mg PO DAILY [facility] Last Admin: 12/06/17 09:10 Dose: 20 mg Heparin Sodium (Porcine) (Heparin -) 1,000 unit IVPUSH PRN PRN PRN Reason: Heparin Heparin Sodium (Porcine) (Heparin -) 5,000 unit IVPUSH PRN PRN PRN Reason: Heparin Last Admin: 12/04/17 22:45 Dose: 5,000 unit Piperacillin Sod/Tazobactam (Sod 3.375 gm/ Dextrose) 100 mls @ 200 mls/hr IVPB Q8H-IV [facility]; Protocol Last Admin: 12/06/17 09:12 Dose: 200 mls/hr HEPARIN SOD,PORK IN 0.45% NACL (Heparin-1/2ns 25,000 Units/500) 25,000 units in 500 mls @ 20 mls/hr IVPB TITR [facility]; Protocol Last Admin: 12/05/17 14:52 Dose: 1,150 units/hr, 23 mls/hr Lidocaine HCl (Xylocaine 2% Jelly) 0 applic TP DAILY PRN PRN Reason: PAIN LEVEL 6-10 Last Admin: 12/04/17 18:24 Dose: 1 applic Lisinopril (Prinivil) 2.5 mg PO DAILY [facility] Last Admin: 12/06/17 09:10 Dose: 2.5 mg Melatonin (Melatonin) 5 mg PO HS PRN PRN Reason: INSOMNIA Last Admin: 12/05/17 22:55 Dose: 5 mg Oxycodone HCl (Roxicodone -) 5 mg PO Q6H PRN PRN Reason: PAIN LEVEL 6-10 Pantoprazole Sodium (Protonix Iv) 40 mg IVPUSH DAILY [facility] Last Admin: 12/06/17 11:26 Dose: 40 mg Polyethylene Glycol (Miralax (For Daily Use) -) 17 gm PO Q24H PRN PRN Reason: CONSTIPATION Last Admin: 12/05/17 09:46 Dose: 17 gm Senna (Senna -) 2 tab PO HS PRN PRN Reason: CONSTIPATION Last Admin: 12/05/17 09:59 Dose: 2 tab Sodium Phosphate (Fleet Adult Rectal Enema -) 133 ml [place] DAILY PRN PRN Reason: CONSTIPATION Last Admin: 12/05/17 11:52 Dose: 133 ml Tamsulosin HCl (Flomax -) 0.8 mg PO DAILY@0830 [facility] Last Admin: 12/06/17 09:09 Dose: 0.8 mg Warfarin Sodium (Coumadin -) 5 mg PO DAILY@1800 [facility] Last Admin: 12/05/17 17:16 Dose: Not Given - Objective Vital Signs: Vital Signs Temperature 98.1 F 12/06/17 10:00 Pulse Rate 60 12/06/17 10:00 Respiratory Rate 20 12/06/17 10:00 Blood Pressure 100/71 12/06/17 10:00 O2 Sat by Pulse Oximetry (%) 98 12/05/17 09:00 Constitutional: Yes: No Distress, Calm Neck: Yes: Supple Cardiovascular: Yes: Regular Rate and Rhythm Gastrointestinal: Yes: Soft Genitourinary: Yes: Banegas Present Edema: LLE: Trace, RLE: Trace Neurological: Yes: Alert Psychiatric: Yes: Alert Labs: CBC, BMP 12/06/17 06:30 12/06/17 06:30 INR, PTT INR 1.51 (0.83-1.09) H 12/06/17 06:30 Problem List - Problems (1) Hematuria Code(s): R31.9 - HEMATURIA, UNSPECIFIED Qualifiers: Hematuria type: gross Qualified Code(s): R31.0 - Gross hematuria (2) Stricture of bladder neck Code(s): N32.0 - BLADDER-NECK OBSTRUCTION (3) Urinary retention Code(s): R33.9 - RETENTION OF URINE, UNSPECIFIED (4) Anxiety Code(s): F41.9 - ANXIETY DISORDER, UNSPECIFIED (5) Atrial fibrillation Code(s): I48.91 - UNSPECIFIED ATRIAL FIBRILLATION (6) History of coronary artery stent placement Code(s): Z95.5 - PRESENCE OF CORONARY ANGIOPLASTY IMPLANT AND GRAFT (7) Hx of CABG Code(s): Z95.1 - PRESENCE OF AORTOCORONARY BYPASS GRAFT (8) Obesity Code(s): E66.9 - OBESITY, UNSPECIFIED Assessment/Plan Better continue i/v protonix coumadin+ heparin till inr therapeutic monitor cbc oob - chair continue present care will follow
--- NOTE | 2017-12-06 15:58 | PN ---
Progress Note, Physician History of Present Illness: Infectious Disease f/u note: Pt is alert, afebrile. Reports abd discomfort/excessive belching, relieved with protonix. Banegas remains in place, no hematuria. - Current Medication List Current Medications: Active Medications Acetaminophen (Tylenol -) 650 mg PO Q6HPO [facility] Last Admin: 12/06/17 07:50 Dose: Not Given Atorvastatin Calcium (Lipitor -) 10 mg PO HS [facility] Last Admin: 12/05/17 22:54 Dose: 10 mg Carvedilol (Coreg -) 3.125 mg PO BID [facility] Folic Acid (Folic Acid -) 1 mg PO DAILY [facility] Last Admin: 12/06/17 09:09 Dose: 1 mg Furosemide (Lasix -) 20 mg PO DAILY [facility] Last Admin: 12/06/17 09:10 Dose: 20 mg Heparin Sodium (Porcine) (Heparin -) 1,000 unit IVPUSH PRN PRN PRN Reason: Heparin Heparin Sodium (Porcine) (Heparin -) 5,000 unit IVPUSH PRN PRN PRN Reason: Heparin Last Admin: 12/04/17 22:45 Dose: 5,000 unit Piperacillin Sod/Tazobactam (Sod 3.375 gm/ Dextrose) 100 mls @ 200 mls/hr IVPB Q8H-IV [facility]; Protocol Last Admin: 12/06/17 09:12 Dose: 200 mls/hr HEPARIN SOD,PORK IN 0.45% NACL (Heparin-1/2ns 25,000 Units/500) 25,000 units in 500 mls @ 20 mls/hr IVPB TITR [facility]; Protocol Last Admin: 12/05/17 14:52 Dose: 1,150 units/hr, 23 mls/hr Lidocaine HCl (Xylocaine 2% Jelly) 0 applic TP DAILY PRN PRN Reason: PAIN LEVEL 6-10 Last Admin: 12/04/17 18:24 Dose: 1 applic Lisinopril (Prinivil) 2.5 mg PO DAILY [facility] Last Admin: 12/06/17 09:10 Dose: 2.5 mg Melatonin (Melatonin) 5 mg PO HS PRN PRN Reason: INSOMNIA Last Admin: 12/05/17 22:55 Dose: 5 mg Oxycodone HCl (Roxicodone -) 5 mg PO Q6H PRN PRN Reason: PAIN LEVEL 6-10 Pantoprazole Sodium (Protonix Iv) 40 mg IVPUSH DAILY [facility] Last Admin: 12/06/17 11:26 Dose: 40 mg Polyethylene Glycol (Miralax (For Daily Use) -) 17 gm PO Q24H PRN PRN Reason: CONSTIPATION Last Admin: 12/05/17 09:46 Dose: 17 gm Senna (Senna -) 2 tab PO HS PRN PRN Reason: CONSTIPATION Last Admin: 12/05/17 09:59 Dose: 2 tab Sodium Phosphate (Fleet Adult Rectal Enema -) 133 ml [place] DAILY PRN PRN Reason: CONSTIPATION Last Admin: 12/05/17 11:52 Dose: 133 ml Tamsulosin HCl (Flomax -) 0.8 mg PO DAILY@0830 [facility] Last Admin: 12/06/17 09:09 Dose: 0.8 mg Warfarin Sodium (Coumadin -) 5 mg PO DAILY@1800 [facility] Last Admin: 12/05/17 17:16 Dose: Not Given - Objective Vital Signs: Vital Signs Temperature 97.6 F 12/06/17 14:00 Pulse Rate 50 L 12/06/17 14:00 Respiratory Rate 20 12/06/17 14:00 Blood Pressure 107/41 12/06/17 14:00 O2 Sat by Pulse Oximetry (%) 98 12/05/17 09:00 Constitutional: Yes: No Distress, Calm Cardiovascular: Yes: Regular Rate and Rhythm Respiratory: Yes: Regular Gastrointestinal: Yes: Normal Bowel Sounds, Soft Genitourinary: Yes: Banegas Present Neurological: Yes: Alert, Oriented Labs: CBC, BMP 12/06/17 06:30 12/06/17 06:30 INR, PTT INR 1.51 (0.83-1.09) H 12/06/17 06:30 Microbiology 11/30/17 13:00 Urine - Urine Clean Catch Urine Culture - Final Enterobacter Aerogenes Enterococcus Faecalis Problem List - Problems (1) Hematuria Code(s): R31.9 - HEMATURIA, UNSPECIFIED Qualifiers: Hematuria type: gross Qualified Code(s): R31.0 - Gross hematuria (2) Stricture of bladder neck Code(s): N32.0 - BLADDER-NECK OBSTRUCTION (3) Urinary retention Code(s): R33.9 - RETENTION OF URINE, UNSPECIFIED (4) Atrial fibrillation Code(s): I48.91 - UNSPECIFIED ATRIAL FIBRILLATION (5) HTN (hypertension) Code(s): I10 - ESSENTIAL (PRIMARY) HYPERTENSION (6) History of coronary artery stent placement Code(s): Z95.5 - PRESENCE OF CORONARY ANGIOPLASTY IMPLANT AND GRAFT (7) Hx of CABG Code(s): Z95.1 - PRESENCE OF AORTOCORONARY BYPASS GRAFT (8) Hyperlipidemia Code(s): E78.5 - HYPERLIPIDEMIA, UNSPECIFIED (9) PAD (peripheral artery disease) Code(s): I73.9 - PERIPHERAL VASCULAR DISEASE, UNSPECIFIED (10) Sepsis Code(s): A41.9 - SEPSIS, UNSPECIFIED ORGANISM Assessment/Plan 77 y.o. male with PMH of CAD s/p CABG, HTN, HLD, urethral stricture/urinary retention, history of UTI/septic shock, s/p cystoscopy admitted with hematuria and abdominal pain Polymicrobial UTI Hematuria Urinary obstruction Urethral stricture -- switch antibiotic to Unasyn -- Urology following continue monitor appears to be improving clinically
[2017-12-06] MEDS: WARFARIN NA 5 MG TABLET (UD) PO SCH (17:47)
[2017-12-06] MEDS: AMPICILLIN NA/SULBACTAM NA 3 GM in SODIUM CHLORIDE 100 ML IVPB SCH ×2 (17:47→21:40)
[2017-12-06] MEDS: ATORVASTATIN CA 10 MG TABLET (FP) PO SCH (21:40)
[2017-12-06] MEDS: SENNOSIDES 8.6MG TABLET (FP) PO PRN (21:40)
[2017-12-06] MEDS: HEPARIN SOD,PORK IN 0.45% NACL 25,000 UNITS/500 ML INFUS.BAG IVPB SCH (21:41)
[2017-12-06] MEDS: MELATONIN 5 MG TABLETS PO PRN (21:41)
[2017-12-06] MEDS: oxyCODONE HCL 5 MG TABLET PO PRN (21:41)
[2017-12-07] MEDS: ACETAMINOPHEN 325 MG TABLET (FP) PO SCH ×5 (00:39→17:45)
[2017-12-07] MEDS: oxyCODONE HCL 5 MG TABLET PO PRN ×2 (03:36→18:32)
[2017-12-07] MEDS: AMPICILLIN NA/SULBACTAM NA 3 GM in SODIUM CHLORIDE 100 ML IVPB SCH ×4 (03:43→21:06)
[2017-12-07] MEDS: HEPARIN SOD,PORK IN 0.45% NACL 25,000 UNITS/500 ML INFUS.BAG IVPB SCH ×3 (03:46→12:22)
[2017-12-07 07:53] LABS: BASO % 0.5 % (0-2.0); HEMATOCRIT 23.7 % (35.4-49); HEMOGLOBIN 8.1 GM/dL (11.7-16.9); LYMPH % 15.2 % (8-40); MCH 33.6 pg (25.7-33.7); MCHC 34.2 g/dl (32.0-35.9); MEAN CELL VOLUME 98.2 fl (80-96); MEAN PLT VOLUME 7.8 fl (7.5-11.1); MONO % 12.3 % (3.8-10.2); PLATELET COUNT 306 K/MM3 (134-434); RBC 2.41 M/mm3 (4.00-5.60); WHITE BLOOD COUNT 6.9 K/mm3 (4.0-10.0)
[2017-12-07 08:24] LABS: INR 2.32 (0.83-1.09); PROTHROMBIN TIME (PATIENT) 26.2 SEC (9.7-13.0)
[2017-12-07] MEDS: TAMSULOSIN HCL 0.4 MG CAP.ER.24H (FP) PO SCH (08:30)
[2017-12-07 08:45] LABS: ALBUMIN 2.7 g/dl (3.4-5.0); ALK PHOS 173 U/L (45-117); ANION GAP 11 (8-16); BILIRUBIN,TOTAL 0.2 mg/dL (0.2-1.0); BLOOD UREA NITROGEN 22 mg/dL (7-18); CALCIUM 8.1 mg/dL (8.5-10.1); CHLORIDE 110 mmol/L (98-107); CO2 22 mmol/L (21-32); CREATININE 1.1 mg/dL (0.7-1.3); GLUCOSE,RANDOM 101 mg/dL (74-106); POTASSIUM 4.3 mmol/L (3.5-5.1); SGOT/AST 12 U/L (15-37); SGPT/ALT 26 U/L (12-78); SODIUM 143 mmol/L (136-145); TOT PROT 5.5 g/dl (6.4-8.2)
[2017-12-07] MEDS: FOLIC ACID 1 MG TABLET (FP) PO SCH (09:52)
[2017-12-07] MEDS: CARVEDILOL 3.125 MG TABLET (FP) PO SCH ×2 (09:52→21:12)
[2017-12-07] MEDS: LISINOPRIL 5 MG TABLET (FP) PO SCH (09:53)
[2017-12-07] MEDS: FUROSEMIDE 20 MG TABLET (FP) PO SCH (09:53)
[2017-12-07] MEDS: PANTOPRAZOLE SODIUM 40 MG VIAL IVPUSH SCH (10:15)
--- NOTE | 2017-12-07 12:16 | PN ---
Progress Note (short form) - Note Progress Note: looks and feels much better Pain much improved H&H stable Afebrile All follow-ups noted INR therapeutic--stopped heparin Denies chest pain or shortness of breath Vital Signs Temp 98.1 F 12/07/17 06:00 Pulse 65 12/07/17 06:00 Resp 18 12/07/17 06:00 BP 117/65 12/07/17 06:00 Pulse Ox 98 12/06/17 21:00 Intake & Output 12/06/17 12/07/17 12/07/17 23:59 11:59 23:59 Intake Total 384 776 Output Total 300 500 Balance 84 276 Weight 198 lb 3.2 oz Intake: IV 184 286 HEPARIN-1/2NS 25,000 184 276 UNITS/500 25,000 units In 500 ml @ 1,000 UNITS/HR 20 mls/hr IVPB TITR [facility] Rx#:[id number] Saline Lock 10 IVPB 200 200 Oral 290 Output: Urine 300 500 Banegas 300 500 Other: Voiding Method Indwelling Catheter Indwelling Catheter Bowel Movement No # Bowel Movements 1 Weight Measurement Method Standing Scale Active Medications Acetaminophen (Tylenol -) 650 mg PO Q6HPO [facility] Last Admin: 12/07/17 06:12 Dose: 650 mg Atorvastatin Calcium (Lipitor -) 10 mg PO HS [facility] Last Admin: 12/06/17 21:40 Dose: 10 mg Carvedilol (Coreg -) 3.125 mg PO BID [facility] Last Admin: 12/07/17 09:52 Dose: 3.125 mg Folic Acid (Folic Acid -) 1 mg PO DAILY [facility] Last Admin: 12/07/17 09:52 Dose: 1 mg Furosemide (Lasix -) 20 mg PO DAILY [facility] Last Admin: 12/07/17 09:53 Dose: 20 mg HEPARIN SOD,PORK IN 0.45% NACL (Heparin-1/2ns 25,000 Units/500) 25,000 units in 500 mls @ 20 mls/hr IVPB TITR [facility]; Protocol Last Admin: 12/07/17 08:52 Dose: 1,050 units/hr, 21 mls/hr Ampicillin Sodium/Sulbactam (Sodium 3 gm/ Sodium Chloride) 100 mls @ 200 mls/ hr IVPB Q6H-IV [facility] Last Admin: 12/07/17 03:43 Dose: 200 mls/hr Lisinopril (Prinivil) 2.5 mg PO DAILY [facility] Last Admin: 12/07/17 09:53 Dose: 2.5 mg Melatonin (Melatonin) 5 mg PO HS PRN PRN Reason: INSOMNIA Last Admin: 12/06/17 21:41 Dose: 5 mg Oxycodone HCl (Roxicodone -) 5 mg PO Q6H PRN PRN Reason: PAIN LEVEL 6-10 Last Admin: 12/07/17 03:36 Dose: 5 mg Pantoprazole Sodium (Protonix Iv) 40 mg IVPUSH DAILY [facility] Last Admin: 12/07/17 10:15 Dose: 40 mg Polyethylene Glycol (Miralax (For Daily Use) -) 17 gm PO Q24H PRN PRN Reason: CONSTIPATION Last Admin: 12/05/17 09:46 Dose: 17 gm Senna (Senna -) 2 tab PO HS PRN PRN Reason: CONSTIPATION Last Admin: 12/06/17 21:40 Dose: 2 tab Sodium Phosphate (Fleet Adult Rectal Enema -) 133 ml [place] DAILY PRN PRN Reason: CONSTIPATION Last Admin: 12/05/17 11:52 Dose: 133 ml Tamsulosin HCl (Flomax -) 0.8 mg PO DAILY@0830 [facility] Last Admin: 12/07/17 08:30 Dose: 0.8 mg Warfarin Sodium (Coumadin -) 5 mg PO DAILY@1800 [facility] Last Admin: 12/06/17 17:47 Dose: 5 mg CBC, BMP 12/07/17 06:30 12/07/17 06:30 INR, PTT INR 2.32 (0.83-1.09) H 12/07/17 07:00 physical exam Constitutional: Yes: No Distress, Calm and comfortable Neck: Yes: Supple. no JVD Cardiovascular: Yes: Regular Rate and Rhythm Gastrointestinal: Yes: Soft Genitourinary: Yes: [place]as Present Edema: LLE: Trace, RLE: Trace Neurological: Yes: Alert Psychiatric: Yes: Alert Assessment/Plan Better. continue to improve Antibiotics per ID--- On Unasyn now continue i/v protonix--- Will consider changing to by mouth tomorrow much better Monitor INR Blood count stable Discharge planning If stable ---Will consider discharge tomorrow--if ID changes to by mouth antibiotics--will discuss Discussed with patient monitor cbc oob - chair continue present care Coumadin per INR level Problem List - Problems (1) Hematuria Code(s): R31.9 - HEMATURIA, UNSPECIFIED Qualifiers: Hematuria type: gross Qualified Code(s): R31.0 - Gross hematuria (2) Stricture of bladder neck Code(s): N32.0 - BLADDER-NECK OBSTRUCTION (3) Urinary retention Code(s): R33.9 - RETENTION OF URINE, UNSPECIFIED (4) Anxiety Code(s): F41.9 - ANXIETY DISORDER, UNSPECIFIED (5) Atrial fibrillation Code(s): I48.91 - UNSPECIFIED ATRIAL FIBRILLATION (6) History of coronary artery stent placement Code(s): Z95.5 - PRESENCE OF CORONARY ANGIOPLASTY IMPLANT AND GRAFT (7) Hx of CABG Code(s): Z95.1 - PRESENCE OF AORTOCORONARY BYPASS GRAFT (8) Obesity Code(s): E66.9 - OBESITY, UNSPECIFIED
--- NOTE | 2017-12-07 14:05 | PN ---
Progress Note, Physician Chief Complaint: Cardiology f/u for Dr. Mata History of Present Illness: Urinary retention due to severe urethral stricture and bladder neck contracture treated with bishop. No hematuria, reports gassiness improved with Protonix, slow afib. - Current Medication List Current Medications: Active Medications Acetaminophen (Tylenol -) 650 mg PO Q6HPO [facility] Last Admin: 12/07/17 06:12 Dose: 650 mg Atorvastatin Calcium (Lipitor -) 10 mg PO HS [facility] Last Admin: 12/06/17 21:40 Dose: 10 mg Carvedilol (Coreg -) 3.125 mg PO BID [facility] Last Admin: 12/07/17 09:52 Dose: 3.125 mg Folic Acid (Folic Acid -) 1 mg PO DAILY [facility] Last Admin: 12/07/17 09:52 Dose: 1 mg Furosemide (Lasix -) 20 mg PO DAILY [facility] Last Admin: 12/07/17 09:53 Dose: 20 mg HEPARIN SOD,PORK IN 0.45% NACL (Heparin-1/2ns 25,000 Units/500) 25,000 units in 500 mls @ 20 mls/hr IVPB TITR [facility]; Protocol Last Admin: 12/07/17 08:52 Dose: 1,050 units/hr, 21 mls/hr Ampicillin Sodium/Sulbactam (Sodium 3 gm/ Sodium Chloride) 100 mls @ 200 mls/ hr IVPB Q6H-IV [facility] Last Admin: 12/07/17 03:43 Dose: 200 mls/hr Lisinopril (Prinivil) 2.5 mg PO DAILY [facility] Last Admin: 12/07/17 09:53 Dose: 2.5 mg Melatonin (Melatonin) 5 mg PO HS PRN PRN Reason: INSOMNIA Last Admin: 12/06/17 21:41 Dose: 5 mg Oxycodone HCl (Roxicodone -) 5 mg PO Q6H PRN PRN Reason: PAIN LEVEL 6-10 Last Admin: 12/07/17 03:36 Dose: 5 mg Pantoprazole Sodium (Protonix Iv) 40 mg IVPUSH DAILY [facility] Last Admin: 12/07/17 10:15 Dose: 40 mg Polyethylene Glycol (Miralax (For Daily Use) -) 17 gm PO Q24H PRN PRN Reason: CONSTIPATION Last Admin: 12/05/17 09:46 Dose: 17 gm Senna (Senna -) 2 tab PO HS PRN PRN Reason: CONSTIPATION Last Admin: 12/06/17 21:40 Dose: 2 tab Sodium Phosphate (Fleet Adult Rectal Enema -) 133 ml [place] DAILY PRN PRN Reason: CONSTIPATION Last Admin: 12/05/17 11:52 Dose: 133 ml Tamsulosin HCl (Flomax -) 0.8 mg PO DAILY@0830 [facility] Last Admin: 12/07/17 08:30 Dose: 0.8 mg Warfarin Sodium (Coumadin -) 5 mg PO DAILY@1800 [facility] Last Admin: 12/06/17 17:47 Dose: 5 mg - Objective Vital Signs: Vital Signs Temperature 98.1 F 12/07/17 06:00 Pulse Rate 65 12/07/17 06:00 Respiratory Rate 18 12/07/17 06:00 Blood Pressure 117/65 12/07/17 06:00 O2 Sat by Pulse Oximetry (%) 98 12/06/17 21:00 Constitutional: Yes: No Distress, Calm Neck: Yes: Supple Cardiovascular: Yes: Pulse Irregular Respiratory: Yes: Regular, Diminished Gastrointestinal: Yes: Normal Bowel Sounds, Soft Genitourinary: Yes: Bishop Present Edema: No Labs: CBC, BMP 12/07/17 06:30 12/07/17 06:30 INR, PTT INR 2.32 (0.83-1.09) H 12/07/17 07:00 Assessment/Plan - Problems (1) Therapeutic INR Assessment/Plan: Continue warfarin-->INR 2-3. Code(s): R79.1 - ABNORMAL COAGULATION PROFILE (2) Hematuria Assessment/Plan: No obvious clots or hematuria now Now on warfarin. F/u with , complete empiric abx course for polymicrobial UTI Code(s): R31.9 - HEMATURIA, UNSPECIFIED Qualifiers: Hematuria type: gross Qualified Code(s): R31.0 - Gross hematuria (3) Stricture of bladder neck Code(s): N32.0 - BLADDER-NECK OBSTRUCTION (4) Urinary retention Code(s): R33.9 - RETENTION OF URINE, UNSPECIFIED (5) Acute on chronic systolic (congestive) heart failure Assessment/Plan: On carvedilol 3.125 bid, lisinopril 2.5 qd, furosemide 20 qd. F/u BUN/Cr, electrolytes, daily weight, Is and Os. Code(s): I50.23 - ACUTE ON CHRONIC SYSTOLIC (CONGESTIVE) HEART FAILURE (6) Anxiety Code(s): F41.9 - ANXIETY DISORDER, UNSPECIFIED (7) Atrial fibrillation Assessment/Plan: On carvedilol for HR control with hold parameters. On warfarin for anticoagulation. Code(s): I48.91 - UNSPECIFIED ATRIAL FIBRILLATION (8) Chest pain Assessment/Plan: EKG: NSR: nonspecific STT changes (no significant change from that of last admission 11/10/17). TNI 0.09-->0.02. Code(s): R07.9 - CHEST PAIN, UNSPECIFIED (9) HTN (hypertension) Code(s): I10 - ESSENTIAL (PRIMARY) HYPERTENSION (10) Herpes simplex Code(s): B00.9 - HERPESVIRAL INFECTION, UNSPECIFIED (11) History of coronary artery stent placement Assessment/Plan: Restart ASA and clopidogrel if no bleeding with warfarin. Code(s): Z95.5 - PRESENCE OF CORONARY ANGIOPLASTY IMPLANT AND GRAFT (12) Hx of CABG Code(s): Z95.1 - PRESENCE OF AORTOCORONARY BYPASS GRAFT (13) Hyperlipidemia Assessment/Plan: Keep LDL cholesterol below 70 mg/dL (on atorvastatin 10 qhs; increase dose if necessary). Weight loss, diet modification, exercise are important in lowering this and other cardiac risks. Code(s): E78.5 - HYPERLIPIDEMIA, UNSPECIFIED (14) PAD (peripheral artery disease) Code(s): I73.9 - PERIPHERAL VASCULAR DISEASE, UNSPECIFIED
[2017-12-07] MEDS: WARFARIN NA 5 MG TABLET (UD) PO SCH ×2 (16:24→17:45)
[2017-12-07] MEDS: POLYETHYLENE GLYCOL 3350 119 GM BTL PO PRN (16:24)
--- NOTE | 2017-12-07 17:29 | PN ---
Progress Note, Physician History of Present Illness: Pt remains afebrile. Hematuria resolved. c/o discomfort due to belching that began this afternoon. No n/v or abd pain. - Current Medication List Current Medications: Active Medications Acetaminophen (Tylenol -) 650 mg PO Q6HPO [facility] Last Admin: 12/07/17 12:00 Dose: Not Given Atorvastatin Calcium (Lipitor -) 10 mg PO HS [facility] Last Admin: 12/06/17 21:40 Dose: 10 mg Carvedilol (Coreg -) 3.125 mg PO BID [facility] Last Admin: 12/07/17 09:52 Dose: 3.125 mg Folic Acid (Folic Acid -) 1 mg PO DAILY [facility] Last Admin: 12/07/17 09:52 Dose: 1 mg Furosemide (Lasix -) 20 mg PO DAILY [facility] Last Admin: 12/07/17 09:53 Dose: 20 mg HEPARIN SOD,PORK IN 0.45% NACL (Heparin-1/2ns 25,000 Units/500) 25,000 units in 500 mls @ 20 mls/hr IVPB TITR [facility]; Protocol Last Admin: 12/07/17 12:22 Dose: Not Given Ampicillin Sodium/Sulbactam (Sodium 3 gm/ Sodium Chloride) 100 mls @ 200 mls/ hr IVPB Q6H-IV [facility] Last Admin: 12/07/17 16:24 Dose: 200 mls/hr Lisinopril (Prinivil) 2.5 mg PO DAILY [facility] Last Admin: 12/07/17 09:53 Dose: 2.5 mg Melatonin (Melatonin) 5 mg PO HS PRN PRN Reason: INSOMNIA Last Admin: 12/06/17 21:41 Dose: 5 mg Oxycodone HCl (Roxicodone -) 5 mg PO Q6H PRN PRN Reason: PAIN LEVEL 6-10 Last Admin: 12/07/17 03:36 Dose: 5 mg Pantoprazole Sodium (Protonix Iv) 40 mg IVPUSH DAILY [facility] Last Admin: 12/07/17 10:15 Dose: 40 mg Polyethylene Glycol (Miralax (For Daily Use) -) 17 gm PO Q24H PRN PRN Reason: CONSTIPATION Last Admin: 12/07/17 16:24 Dose: 17 gm Senna (Senna -) 2 tab PO HS PRN PRN Reason: CONSTIPATION Last Admin: 12/06/17 21:40 Dose: 2 tab Sodium Phosphate (Fleet Adult Rectal Enema -) 133 ml [place] DAILY PRN PRN Reason: CONSTIPATION Last Admin: 12/05/17 11:52 Dose: 133 ml Tamsulosin HCl (Flomax -) 0.8 mg PO DAILY@0830 [facility] Last Admin: 12/07/17 08:30 Dose: 0.8 mg Warfarin Sodium (Coumadin -) 5 mg PO DAILY@1800 [facility] Last Admin: 12/07/17 16:24 Dose: 5 mg - Objective Vital Signs: Vital Signs Temperature 98.2 F 12/07/17 14:00 Pulse Rate 52 L 12/07/17 14:00 Respiratory Rate 18 12/07/17 10:00 Blood Pressure 100/50 12/07/17 14:00 O2 Sat by Pulse Oximetry (%) 100 12/07/17 09:00 Constitutional: Yes: No Distress Cardiovascular: Yes: Regular Rate and Rhythm Respiratory: Yes: CTA Bilaterally Gastrointestinal: Yes: Normal Bowel Sounds, Soft Genitourinary: Yes: Bishop Present Labs: CBC, BMP 12/07/17 06:30 12/07/17 06:30 INR, PTT INR 2.32 (0.83-1.09) H 12/07/17 07:00 Problem List - Problems (1) Hematuria Code(s): R31.9 - HEMATURIA, UNSPECIFIED Qualifiers: Hematuria type: gross Qualified Code(s): R31.0 - Gross hematuria (2) Stricture of bladder neck Code(s): N32.0 - BLADDER-NECK OBSTRUCTION (3) Urinary retention Code(s): R33.9 - RETENTION OF URINE, UNSPECIFIED (4) Atrial fibrillation Code(s): I48.91 - UNSPECIFIED ATRIAL FIBRILLATION (5) HTN (hypertension) Code(s): I10 - ESSENTIAL (PRIMARY) HYPERTENSION (6) History of coronary artery stent placement Code(s): Z95.5 - PRESENCE OF CORONARY ANGIOPLASTY IMPLANT AND GRAFT (7) Hx of CABG Code(s): Z95.1 - PRESENCE OF AORTOCORONARY BYPASS GRAFT (8) Hyperlipidemia Code(s): E78.5 - HYPERLIPIDEMIA, UNSPECIFIED (9) PAD (peripheral artery disease) Code(s): I73.9 - PERIPHERAL VASCULAR DISEASE, UNSPECIFIED (10) Sepsis Code(s): A41.9 - SEPSIS, UNSPECIFIED ORGANISM Assessment/Plan 77 y.o. male with PMH of CAD s/p CABG, HTN, HLD, urethral stricture/urinary retention, history of UTI/septic shock, s/p cystoscopy admitted with hematuria and abdominal pain Polymicrobial UTI Hematuria - resolved Urinary obstruction Urethral stricture, bishop in place -- on Unasyn, if plan d/c tomorrow and pt stable suggest Augmentin x 4 more days -- Urology following continue monitor
--- NOTE | 2017-12-07 19:15 | HOSP ---
Subjective - Review of Symptoms Events since last encounter: Summoned to see patient with a complaint of chest pain. Patient seen and examined. Burping every few seconds. Complaining of upper left abdominal pain which he describes as his chronic "gas pain." He denies chest pain, SOB, dizziness, palpitations, diaphoresis. He reports having just had a bowel movement which he describes as soft and normal. +flatus. General: A&Ox3 Lungs: CTA CV: S1, S2, rrr Abd: soft, not tender, not distended; burping every few seconds ECG done: no acute ischemic changes, unchanged from previous Plan --Serial troponins --CXR --Simethicone Physical Examination Vital Signs: Vital Signs Temperature 97.8 F 12/07/17 18:00 Pulse Rate 48 L 12/07/17 18:49 Respiratory Rate 20 12/07/17 18:49 Blood Pressure 112/53 12/07/17 18:49 O2 Sat by Pulse Oximetry (%) 100 12/07/17 09:00 Labs: CBC, BMP 12/07/17 06:30 12/07/17 06:30
[2017-12-07] MEDS ORDERED: SIMETHICONE 80 MG TAB.CHEW (FP) PO STA (19:18)
[2017-12-07 20:00] LABS: BASO % 0.5 % (0-2.0); HEMOGLOBIN 8.3 GM/dL (11.7-16.9); LYMPH % 10.7 % (8-40); MCHC 33.3 g/dl (32.0-35.9); MEAN CELL VOLUME 99.1 fl (80-96); MEAN PLT VOLUME 7.8 fl (7.5-11.1); MONO % 11.7 % (3.8-10.2); NEUT % 73.1 % (42.8-82.8); PLATELET COUNT 302 K/MM3 (134-434); RBC 2.52 M/mm3 (4.00-5.60); RDW 14.1 % (11.9-15.9); WHITE BLOOD COUNT 9.8 K/mm3 (4.0-10.0)
[2017-12-07] MEDS ORDERED: PT OWN MED DRAWER 7, Y5N ONE (21:02)
[2017-12-07] MEDS: MELATONIN 5 MG TABLETS PO PRN (21:05)
[2017-12-07] MEDS: ATORVASTATIN CA 10 MG TABLET (FP) PO SCH (21:05)
[2017-12-07] MEDS: SENNOSIDES 8.6MG TABLET (FP) PO PRN (21:05)
[2017-12-08] MEDS: SIMETHICONE 80 MG TAB.CHEW (FP) PO PRN ×3 (00:44→15:58)
[2017-12-08] MEDS: ACETAMINOPHEN 325 MG TABLET (FP) PO SCH ×5 (00:44→23:46)
[2017-12-08] MEDS: oxyCODONE HCL 5 MG TABLET PO PRN ×2 (00:44→06:40)
[2017-12-08] MEDS: AMPICILLIN NA/SULBACTAM NA 3 GM in SODIUM CHLORIDE 100 ML IVPB SCH ×4 (02:34→21:04)
[2017-12-08 07:57] LABS: HEMATOCRIT 23.3 % (35.4-49); MCH 33.8 pg (25.7-33.7); MCHC 34.5 g/dl (32.0-35.9); MEAN CELL VOLUME 97.9 fl (80-96); MEAN PLT VOLUME 7.9 fl (7.5-11.1); PLATELET COUNT 307 K/MM3 (134-434); RBC 2.38 M/mm3 (4.00-5.60); RDW 13.9 % (11.9-15.9); WHITE BLOOD COUNT 6.6 K/mm3 (4.0-10.0)
[2017-12-08 08:09] LABS: INR 2.95 (0.83-1.09); PROTHROMBIN TIME (PATIENT) 33.3 SEC (9.7-13.0)
[2017-12-08 08:22] LABS: ACTIVATED PTT 36.6 SECONDS (25.2-36.5)
[2017-12-08] MEDS: TAMSULOSIN HCL 0.4 MG CAP.ER.24H (FP) PO SCH (09:32)
[2017-12-08] MEDS: LISINOPRIL 5 MG TABLET (FP) PO SCH (09:33)
[2017-12-08] MEDS: CARVEDILOL 3.125 MG TABLET (FP) PO SCH (09:33)
[2017-12-08] MEDS: FUROSEMIDE 20 MG TABLET (FP) PO SCH (09:34)
[2017-12-08] MEDS: FOLIC ACID 1 MG TABLET (FP) PO SCH (09:34)
[2017-12-08] MEDS ORDERED: PT OWN MED DRAWER 7, Y5N ONE ×2 (09:50→15:56)
[2017-12-08] MEDS: PANTOPRAZOLE SODIUM 40 MG VIAL IVPUSH SCH (10:07)
--- NOTE | 2017-12-08 12:29 | PN ---
Progress Note (short form) - Note Progress Note: Comfortable Events noted -- last night no cp now anxious urine - turning slight red in bishop. Vital Signs Temp 98.2 F 12/08/17 10:00 Pulse 79 12/08/17 10:00 Resp 18 12/08/17 10:00 BP 114/55 12/08/17 10:00 Pulse Ox 100 12/08/17 09:00 Intake & Output 12/07/17 12/08/17 12/08/17 23:59 11:59 23:59 Intake Total 550 570 Output Total 1150 800 Balance -600 -230 Weight 197 lb 12.8 oz Intake: IV 0 10 HEPARIN-1/2NS 25,000 0 UNITS/500 25,000 units In 500 ml @ 1,000 UNITS/HR 20 mls/hr IVPB TITR [facility] Rx#:[id number] Saline Lock 10 IVPB 210 200 Oral 340 360 Output: Urine 1150 800 Bishop 1150 800 Other: Voiding Method Indwelling Catheter Indwelling Catheter Bowel Movement No Weight Measurement Method Standing Scale Active Medications Acetaminophen (Tylenol -) 650 mg PO Q6HPO [facility] Last Admin: 12/08/17 11:55 Dose: 650 mg Atorvastatin Calcium (Lipitor -) 10 mg PO HS [facility] Last Admin: 12/07/17 21:05 Dose: 10 mg Carvedilol (Coreg -) 3.125 mg PO BID [facility] Last Admin: 12/08/17 09:33 Dose: 3.125 mg Folic Acid (Folic Acid -) 1 mg PO DAILY [facility] Last Admin: 12/08/17 09:34 Dose: 1 mg Furosemide (Lasix -) 20 mg PO DAILY [facility] Last Admin: 12/08/17 09:34 Dose: 20 mg HEPARIN SOD,PORK IN 0.45% NACL (Heparin-1/2ns 25,000 Units/500) 25,000 units in 500 mls @ 20 mls/hr IVPB TITR [facility]; Protocol Last Admin: 12/07/17 12:22 Dose: Not Given Ampicillin Sodium/Sulbactam (Sodium 3 gm/ Sodium Chloride) 100 mls @ 200 mls/ hr IVPB Q6H-IV [facility] Last Admin: 12/08/17 09:58 Dose: 200 mls/hr Lisinopril (Prinivil) 2.5 mg PO DAILY [facility] Last Admin: 12/08/17 09:33 Dose: 2.5 mg Melatonin (Melatonin) 5 mg PO HS PRN PRN Reason: INSOMNIA Last Admin: 12/07/17 21:05 Dose: 5 mg Pantoprazole Sodium (Protonix Iv) 40 mg IVPUSH DAILY [facility] Last Admin: 12/08/17 10:07 Dose: 40 mg Polyethylene Glycol (Miralax (For Daily Use) -) 17 gm PO Q24H PRN PRN Reason: CONSTIPATION Last Admin: 12/07/17 16:24 Dose: 17 gm Senna (Senna -) 2 tab PO HS PRN PRN Reason: CONSTIPATION Last Admin: 12/07/17 21:05 Dose: 2 tab Simethicone (Mylicon -) 80 mg PO Q4H PRN PRN Reason: GAS Last Admin: 12/08/17 06:40 Dose: 80 mg Sodium Phosphate (Fleet Adult Rectal Enema -) 133 ml [place] DAILY PRN PRN Reason: CONSTIPATION Last Admin: 12/05/17 11:52 Dose: 133 ml Tamsulosin HCl (Flomax -) 0.8 mg PO DAILY@0830 [facility] Last Admin: 12/08/17 09:32 Dose: 0.8 mg Warfarin Sodium (Coumadin -) 5 mg PO DAILY@1800 [facility] Last Admin: 12/07/17 17:45 Dose: Not Given CBC, BMP 12/08/17 05:30 12/07/17 06:30 INR, PTT INR 2.95 (0.83-1.09) H 12/08/17 05:30 Physical exam. Constitutional: Yes: No Distress, Anxious Neck: Yes: Supple. no JVD Cardiovascular: Yes: Regular Rate and Rhythm Gastrointestinal: Yes: Soft Genitourinary: Yes: Bishop Present-- slight red urine Edema: LLE: Trace, RLE: Trace Neurological: Yes: Alert Psychiatric: Yes: Alert Assessment/Plan Will hold coumadin today monitor cbc/ inr abx will not d/c today will follow discussed with nursing staff also. Problem List - Problems (1) Hematuria Code(s): R31.9 - HEMATURIA, UNSPECIFIED Qualifiers: Hematuria type: gross Qualified Code(s): R31.0 - Gross hematuria (2) Stricture of bladder neck Code(s): N32.0 - BLADDER-NECK OBSTRUCTION (3) Urinary retention Code(s): R33.9 - RETENTION OF URINE, UNSPECIFIED (4) Anxiety Code(s): F41.9 - ANXIETY DISORDER, UNSPECIFIED (5) Atrial fibrillation Code(s): I48.91 - UNSPECIFIED ATRIAL FIBRILLATION (6) History of coronary artery stent placement Code(s): Z95.5 - PRESENCE OF CORONARY ANGIOPLASTY IMPLANT AND GRAFT (7) Hx of CABG Code(s): Z95.1 - PRESENCE OF AORTOCORONARY BYPASS GRAFT (8) Obesity Code(s): E66.9 - OBESITY, UNSPECIFIED
--- NOTE | 2017-12-08 14:35 | PN ---
Progress Note, Physician History of Present Illness: patient stable doing well starting hematuria - Current Medication List Current Medications: Active Medications Acetaminophen (Tylenol -) 650 mg PO Q6HPO [facility] Last Admin: 12/08/17 11:55 Dose: 650 mg Atorvastatin Calcium (Lipitor -) 10 mg PO HS [facility] Last Admin: 12/07/17 21:05 Dose: 10 mg Carvedilol (Coreg -) 3.125 mg PO BID [facility] Last Admin: 12/08/17 09:33 Dose: 3.125 mg Folic Acid (Folic Acid -) 1 mg PO DAILY [facility] Last Admin: 12/08/17 09:34 Dose: 1 mg Furosemide (Lasix -) 20 mg PO DAILY [facility] Last Admin: 12/08/17 09:34 Dose: 20 mg HEPARIN SOD,PORK IN 0.45% NACL (Heparin-1/2ns 25,000 Units/500) 25,000 units in 500 mls @ 20 mls/hr IVPB TITR [facility]; Protocol Last Admin: 12/07/17 12:22 Dose: Not Given Ampicillin Sodium/Sulbactam (Sodium 3 gm/ Sodium Chloride) 100 mls @ 200 mls/ hr IVPB Q6H-IV [facility] Last Admin: 12/08/17 09:58 Dose: 200 mls/hr Lisinopril (Prinivil) 2.5 mg PO DAILY [facility] Last Admin: 12/08/17 09:33 Dose: 2.5 mg Melatonin (Melatonin) 5 mg PO HS PRN PRN Reason: INSOMNIA Last Admin: 12/07/17 21:05 Dose: 5 mg Pantoprazole Sodium (Protonix Iv) 40 mg IVPUSH DAILY [facility] Last Admin: 12/08/17 10:07 Dose: 40 mg Polyethylene Glycol (Miralax (For Daily Use) -) 17 gm PO Q24H PRN PRN Reason: CONSTIPATION Last Admin: 12/07/17 16:24 Dose: 17 gm Senna (Senna -) 2 tab PO HS PRN PRN Reason: CONSTIPATION Last Admin: 12/07/17 21:05 Dose: 2 tab Simethicone (Mylicon -) 80 mg PO Q4H PRN PRN Reason: GAS Last Admin: 12/08/17 06:40 Dose: 80 mg Sodium Phosphate (Fleet Adult Rectal Enema -) 133 ml [place] DAILY PRN PRN Reason: CONSTIPATION Last Admin: 12/05/17 11:52 Dose: 133 ml Tamsulosin HCl (Flomax -) 0.8 mg PO DAILY@0830 [facility] Last Admin: 12/08/17 09:32 Dose: 0.8 mg Warfarin Sodium (Coumadin -) 5 mg PO DAILY@1800 [facility] Last Admin: 12/07/17 17:45 Dose: Not Given - Objective Vital Signs: Vital Signs Temperature 98.2 F 12/08/17 10:00 Pulse Rate 79 12/08/17 10:00 Respiratory Rate 18 12/08/17 10:00 Blood Pressure 114/55 12/08/17 10:00 O2 Sat by Pulse Oximetry (%) 100 12/08/17 09:00 Constitutional: Yes: No Distress, Calm Cardiovascular: Yes: Regular Rate and Rhythm Respiratory: Yes: Regular, CTA Bilaterally Gastrointestinal: Yes: Normal Bowel Sounds, Soft Genitourinary: Yes: Ban[place] Present, Hematuria Musculoskeletal: Yes: WNL Extremities: Yes: WNL Neurological: Yes: Alert, Oriented Psychiatric: Yes: Alert, Oriented Labs: CBC, BMP 12/08/17 05:30 12/07/17 06:30 INR, PTT INR 2.95 (0.83-1.09) H 12/08/17 05:30 Assessment/Plan Problem List - Problems (1) Hematuria Code(s): R31.9 - HEMATURIA, UNSPECIFIED Qualifiers: Hematuria type: gross Qualified Code(s): R31.0 - Gross hematuria (2) Stricture of bladder neck Code(s): N32.0 - BLADDER-NECK OBSTRUCTION (3) Supratherapeutic INR Code(s): R79.1 - ABNORMAL COAGULATION PROFILE (4) Urinary retention Code(s): R33.9 - RETENTION OF URINE, UNSPECIFIED (5) Anxiety Code(s): F41.9 - ANXIETY DISORDER, UNSPECIFIED (6) Atrial fibrillation Code(s): I48.91 - UNSPECIFIED ATRIAL FIBRILLATION (7) Chest pain Code(s): R07.9 - CHEST PAIN, UNSPECIFIED 8 uti plan continue current mgmt continue abx monitor hematuria close watch for clotting
--- NOTE | 2017-12-08 15:10 | EKG ---
Test Reason : Blood Pressure : / mmHG Vent. Rate : 075 BPM Atrial Rate : 075 BPM P-R Int : 190 ms QRS Dur : 124 ms QT Int : 410 ms P-R-T Axes : 013 009 104 degrees QTc Int : 457 ms NORMAL SINUS RHYTHM NON-SPECIFIC INTRA-VENTRICULAR CONDUCTION DELAY ABNORMAL ECG WHEN COMPARED WITH ECG OF 04-DEC-2017 17:49, PREMATURE VENTRICULAR COMPLEXES ARE NO LONGER PRESENT Confirmed by NANCY TANNER MD ([id number]) on 12/08/2017 3:09:35 PM Referred By: ARVIND Smith DR Confirmed By:NANCY TANNER MD
[2017-12-08] MEDS: SENNOSIDES 8.6MG TABLET (FP) PO PRN (15:58)
[2017-12-08] MEDS: ATORVASTATIN CA 10 MG TABLET (FP) PO SCH (21:57)
[2017-12-08] MEDS: MELATONIN 5 MG TABLETS PO PRN (21:57)
[2017-12-09] MEDS: AMPICILLIN NA/SULBACTAM NA 3 GM in SODIUM CHLORIDE 100 ML IVPB SCH ×3 (02:51→17:08)
[2017-12-09] MEDS: ACETAMINOPHEN 325 MG TABLET (FP) PO SCH ×4 (06:42→23:52)
[2017-12-09 06:44] LABS: HEMATOCRIT 23.5 % (35.4-49); HEMOGLOBIN 7.9 GM/dL (11.7-16.9); MCH 32.4 pg (25.7-33.7); MCHC 33.5 g/dl (32.0-35.9); MEAN CELL VOLUME 96.8 fl (80-96); MEAN PLT VOLUME 7.8 fl (7.5-11.1); PLATELET COUNT 289 K/MM3 (134-434); RBC 2.43 M/mm3 (4.00-5.60); WHITE BLOOD COUNT 6.5 K/mm3 (4.0-10.0)
[2017-12-09 08:27] LABS: INR 3.12 (0.83-1.09); PROTHROMBIN TIME (PATIENT) 35.3 SEC (9.7-13.0)
--- NOTE | 2017-12-09 08:48 | PN ---
Progress Note (short form) - Note Progress Note: pt seen/ examined with BYRON Davidson . Case discussed documentation reviewed Agree with current management Vital Signs Temp 97.8 F 12/09/17 05:50 Pulse 60 12/09/17 05:50 Resp 20 12/09/17 05:50 BP 110/64 12/09/17 05:50 Pulse Ox 99 12/08/17 21:00 Intake & Output 12/08/17 12/08/17 12/09/17 11:59 23:59 11:59 Intake Total 570 310 280 Output Total 800 340 300 Balance -230 -30 -20 Weight 197 lb 12.8 oz 196 lb 12.8 oz Intake: IV 10 10 Saline Lock 10 10 IVPB 200 300 100 Oral 360 180 Output: Urine 800 340 300 Baneg[place] 800 340 300 Other: Voiding Method Indwelling Catheter Indwelling Catheter Indwelling Catheter Bowel Movement No Weight Measurement Method Standing Scale Standing Scale Active Medications Acetaminophen (Tylenol -) 650 mg PO Q6HPO [facility] Last Admin: 12/09/17 06:42 Dose: 650 mg Atorvastatin Calcium (Lipitor -) 10 mg PO HS [facility] Last Admin: 12/08/17 21:57 Dose: 10 mg Folic Acid (Folic Acid -) 1 mg PO DAILY [facility] Last Admin: 12/08/17 09:34 Dose: 1 mg Furosemide (Lasix -) 20 mg PO DAILY [facility] Last Admin: 12/08/17 09:34 Dose: 20 mg HEPARIN SOD,PORK IN 0.45% NACL (Heparin-1/2ns 25,000 Units/500) 25,000 units in 500 mls @ 20 mls/hr IVPB TITR [facility]; Protocol Last Admin: 12/07/17 12:22 Dose: Not Given Ampicillin Sodium/Sulbactam (Sodium 3 gm/ Sodium Chloride) 100 mls @ 200 mls/ hr IVPB Q6H-IV [facility] Last Admin: 12/09/17 02:51 Dose: 200 mls/hr Lisinopril (Prinivil) 2.5 mg PO DAILY [facility] Last Admin: 12/08/17 09:33 Dose: 2.5 mg Melatonin (Melatonin) 5 mg PO HS PRN PRN Reason: INSOMNIA Last Admin: 12/08/17 21:57 Dose: 5 mg Pantoprazole Sodium (Protonix Iv) 40 mg IVPUSH DAILY [facility] Last Admin: 12/08/17 10:07 Dose: 40 mg Polyethylene Glycol (Miralax (For Daily Use) -) 17 gm PO Q24H PRN PRN Reason: CONSTIPATION Last Admin: 12/07/17 16:24 Dose: 17 gm Senna (Senna -) 2 tab PO HS PRN PRN Reason: CONSTIPATION Last Admin: 12/08/17 15:58 Dose: 2 tab Simethicone (Mylicon -) 80 mg PO Q4H PRN PRN Reason: GAS Last Admin: 12/08/17 15:58 Dose: 80 mg Sodium Phosphate (Fleet Adult Rectal Enema -) 133 ml [place] DAILY PRN PRN Reason: CONSTIPATION Last Admin: 12/05/17 11:52 Dose: 133 ml Tamsulosin HCl (Flomax -) 0.8 mg PO DAILY@0830 [facility] Last Admin: 12/08/17 09:32 Dose: 0.8 mg Warfarin Sodium (Coumadin -) 5 mg PO DAILY@1800 [facility] Last Admin: 12/07/17 17:45 Dose: Not Given CBC, BMP 12/09/17 05:30 12/07/17 06:30 INR, PTT INR 3.12 (0.83-1.09) H 12/09/17 05:30 Physical exam. Constitutional: Yes: No Distress, Anxious Neck: Yes: Supple. no JVD Cardiovascular: Yes: Regular Rate and Rhythm Gastrointestinal: Yes: Soft Genitourinary: Yes: Banegas Present-- slight red urine Edema: LLE: Trace, RLE: Trace Neurological: Yes: Alert Psychiatric: Yes: Alert Assessment/Plan Atrial fibrillation CAD- h/o stents, h/o CABG Systolic CHF Polymicrobial UTI Prostate ca- s/p radiation urinary retention stricture of bladder neck hematuria - coreg d/c due to bradycardia, coumadin on hold due to hematuria -INR 3.12 today -urology follow up -cardiology follow up -antibiotics per i/d miralax for constipation-- added Problem List - Problems (1) Hematuria Code(s): R31.9 - HEMATURIA, UNSPECIFIED Qualifiers: Hematuria type: gross Qualified Code(s): R31.0 - Gross hematuria (2) Stricture of bladder neck Code(s): N32.0 - BLADDER-NECK OBSTRUCTION (3) Urinary retention Code(s): R33.9 - RETENTION OF URINE, UNSPECIFIED (4) Anxiety Code(s): F41.9 - ANXIETY DISORDER, UNSPECIFIED (5) Atrial fibrillation Code(s): I48.91 - UNSPECIFIED ATRIAL FIBRILLATION (6) History of coronary artery stent placement Code(s): Z95.5 - PRESENCE OF CORONARY ANGIOPLASTY IMPLANT AND GRAFT (7) Hx of CABG Code(s): Z95.1 - PRESENCE OF AORTOCORONARY BYPASS GRAFT (8) Obesity Code(s): E66.9 - OBESITY, UNSPECIFIED
[2017-12-09] MEDS: LISINOPRIL 5 MG TABLET (FP) PO SCH (09:47)
[2017-12-09] MEDS: FOLIC ACID 1 MG TABLET (FP) PO SCH (09:48)
[2017-12-09] MEDS: FUROSEMIDE 20 MG TABLET (FP) PO SCH (09:49)
[2017-12-09] MEDS: TAMSULOSIN HCL 0.4 MG CAP.ER.24H (FP) PO SCH (09:49)
[2017-12-09] MEDS: PANTOPRAZOLE SODIUM 40 MG VIAL IVPUSH SCH (09:49)
--- NOTE | 2017-12-09 12:01 | PN ---
Progress Note (short form) - Note Progress Note: patient seen and examined this am along with Dr Yusuf bishop- mild hematuria coumadin on hold Coreg d/cd due to bradycardia Vital Signs Temp 97.8 F 12/09/17 05:50 Pulse 60 12/09/17 05:50 Resp 20 12/09/17 05:50 BP 110/64 12/09/17 05:50 Pulse Ox 99 12/08/17 21:00 Intake & Output 12/08/17 12/08/17 12/09/17 11:59 23:59 11:59 Intake Total 570 310 280 Output Total 800 340 300 Balance -230 -30 -20 Weight 197 lb 12.8 oz 196 lb 12.8 oz Intake: IV 10 10 Saline Lock 10 10 IVPB 200 300 100 Oral 360 180 Output: Urine 800 340 300 Bishop 800 340 300 Other: Voiding Method Indwelling Catheter Indwelling Catheter Indwelling Catheter Bowel Movement No Weight Measurement Method Standing Scale Standing Scale Active Medications Acetaminophen (Tylenol -) 650 mg PO Q6HPO [facility] Last Admin: 12/09/17 06:42 Dose: 650 mg Atorvastatin Calcium (Lipitor -) 10 mg PO HS [facility] Last Admin: 12/08/17 21:57 Dose: 10 mg Folic Acid (Folic Acid -) 1 mg PO DAILY [facility] Last Admin: 12/09/17 09:48 Dose: 1 mg Furosemide (Lasix -) 20 mg PO DAILY [facility] Last Admin: 12/09/17 09:49 Dose: 20 mg Ampicillin Sodium/Sulbactam (Sodium 3 gm/ Sodium Chloride) 100 mls @ 200 mls/ hr IVPB Q6H-IV [facility] Last Admin: 12/09/17 09:49 Dose: 200 mls/hr Lisinopril (Prinivil) 2.5 mg PO DAILY [facility] Last Admin: 12/09/17 09:47 Dose: 2.5 mg Melatonin (Melatonin) 5 mg PO HS PRN PRN Reason: INSOMNIA Last Admin: 12/08/17 21:57 Dose: 5 mg Pantoprazole Sodium (Protonix Iv) 40 mg IVPUSH DAILY [facility] Last Admin: 12/09/17 09:49 Dose: 40 mg Polyethylene Glycol (Miralax (For Daily Use) -) 17 gm PO Q24H PRN PRN Reason: CONSTIPATION Last Admin: 12/07/17 16:24 Dose: 17 gm Senna (Senna -) 2 tab PO HS PRN PRN Reason: CONSTIPATION Last Admin: 12/08/17 15:58 Dose: 2 tab Simethicone (Mylicon -) 80 mg PO Q4H PRN PRN Reason: GAS Last Admin: 12/08/17 15:58 Dose: 80 mg Sodium Phosphate (Fleet Adult Rectal Enema -) 133 ml [place] DAILY PRN PRN Reason: CONSTIPATION Last Admin: 12/05/17 11:52 Dose: 133 ml Tamsulosin HCl (Flomax -) 0.8 mg PO DAILY@0830 [facility] Last Admin: 12/09/17 09:49 Dose: 0.8 mg Warfarin Sodium (Coumadin -) 5 mg PO DAILY@1800 [facility] Last Admin: 12/07/17 17:45 Dose: Not Given Laboratory Last Values WBC 6.5 K/mm3 (4.0-10.0) 12/09/17 05:30 RBC 2.43 M/mm3 (4.00-5.60) L 12/09/17 05:30 Hgb 7.9 GM/dL (11.7-16.9) L 12/09/17 05:30 Hct 23.5 % (35.4-49) L 12/09/17 05:30 MCV 96.8 fl (80-96) H 12/09/17 05:30 MCH 32.4 pg (25.7-33.7) 12/09/17 05:30 MCHC 33.5 g/dl (32.0-35.9) 12/09/17 05:30 RDW 14.0 % (11.9-15.9) 12/09/17 05:30 Plt Count 289 K/MM3 (134-434) 12/09/17 05:30 MPV 7.8 fl (7.5-11.1) 12/09/17 05:30 Absolute Neuts (auto) 7.2 K/mm3 (1.5-8.0) 12/07/17 19:10 Neutrophils % 73.1 % (42.8-82.8) 12/07/17 19:10 Lymphocytes % 10.7 % (8-40) D 12/07/17 19:10 Monocytes % 11.7 % (3.8-10.2) H 12/07/17 19:10 Eosinophils % 4.0 % (0-4.5) 12/07/17 19:10 Basophils % 0.5 % (0-2.0) 12/07/17 19:10 Nucleated RBC % 0 % (0-0) 12/07/17 19:10 PT with INR 35.30 SEC (9.7-13.0) H 12/09/17 05:30 INR 3.12 (0.83-1.09) H 12/09/17 05:30 PTT (Actin FS) 37.5 SECONDS (25.2-36.5) H 12/09/17 05:30 Sodium 143 mmol/L (136-145) 12/07/17 06:30 Potassium 4.3 mmol/L (3.5-5.1) 12/07/17 06:30 Chloride 110 mmol/L (98-107) H 12/07/17 06:30 Carbon Dioxide 22 mmol/L (21-32) 12/07/17 06:30 Anion Gap 11 (8-16) 12/07/17 06:30 BUN 22 mg/dL (7-18) H 12/07/17 06:30 Creatinine 1.1 mg/dL (0.7-1.3) 12/07/17 06:30 Creat Clearance w eGFR > 60 (>60) 12/07/17 06:30 Random Glucose 101 mg/dL (74-106) 12/07/17 06:30 Lactic Acid 1.5 mmol/L (0.0-2.0) 12/01/17 20:25 Calcium 8.1 mg/dL (8.5-10.1) L 12/07/17 06:30 Phosphorus 3.9 mg/dL (2.5-4.9) D 12/03/17 06:22 Magnesium 1.9 mg/dL (1.8-2.4) 12/03/17 06:22 Total Bilirubin 0.2 mg/dL (0.2-1.0) 12/07/17 06:30 AST 12 U/L (15-37) L 12/07/17 06:30 ALT 26 U/L (12-78) 12/07/17 06:30 Alkaline Phosphatase 173 U/L (45-117) H D 12/07/17 06:30 Creatine Kinase 23 IU/L (39-308) L 12/07/17 19:10 Troponin I < 0.02 ng/ml (0.00-0.05) 12/08/17 05:30 B-Natriuretic Peptide 5206.85 pg/ml (5-450) H 12/01/17 19:20 Total Protein 5.5 g/dl (6.4-8.2) L 12/07/17 06:30 Albumin 2.7 g/dl (3.4-5.0) L 12/07/17 06:30 Urine Color Red 11/30/17 13:00 Urine Appearance Cloudy 11/30/17 13:00 Urine pH 7.0 (5.0-8.0) 11/30/17 13:00 Ur Specific [place] 1.015 (1.001-1.035) 11/30/17 13:00 Urine Protein 3+ (NEGATIVE) H 11/30/17 13:00 Urine Glucose (UA) 1+ (NEGATIVE) H 11/30/17 13:00 Urine Ketones Trace (NEGATIVE) H 11/30/17 13:00 Urine Blood 3+ (NEGATIVE) H 11/30/17 13:00 Urine Nitrite Negative (NEGATIVE) 11/30/17 13:00 Urine Bilirubin Negative (<2.0 mg/dL) 11/30/17 13:00 Urine Urobilinogen Negative mg/dL (0.2-1.0) 11/30/17 13:00 Ur Leukocyte Esterase Negative (NEGATIVE) 11/30/17 13:00 Urine WBC (Auto) 1490 /hpf (3-5) 11/30/17 13:00 Urine RBC (Auto) 3455 /hpf (0-3) 11/30/17 13:00 Blood Type O NEGATIVE 12/01/17 21:50 Antibody Screen Negative 12/01/17 21:50 Physical exam. Constitutional: Yes: No Distress, Anxious Neck: Yes: Supple. no JVD Cardiovascular: Yes: Regular Rate and Rhythm Gastrointestinal: Yes: Soft Genitourinary: Yes: Bishop Present-- slight red urine Edema: LLE: Trace, RLE: Trace Neurological: Yes: Alert Psychiatric: Yes: Alert Assessment/Plan Atrial fibrillation CAD- h/o stents, h/o CABG Systolic CHF Polymicrobial UTI Prostate ca- s/p radiation urinary retention stricture of bladder neck hematuria - coreg d/c due to bradycardia, coumadin on hold due to hematuria -INR 3.12 today -urology follow up -cardiology follow up -antibiotics miralax for constipation Problem List - Problems (1) Hematuria Code(s): R31.9 - HEMATURIA, UNSPECIFIED Qualifiers: Hematuria type: gross Qualified Code(s): R31.0 - Gross hematuria (2) Stricture of bladder neck Code(s): N32.0 - BLADDER-NECK OBSTRUCTION (3) Urinary retention Code(s): R33.9 - RETENTION OF URINE, UNSPECIFIED (4) Anxiety Code(s): F41.9 - ANXIETY DISORDER, UNSPECIFIED (5) Atrial fibrillation Code(s): I48.91 - UNSPECIFIED ATRIAL FIBRILLATION (6) History of coronary artery stent placement Code(s): Z95.5 - PRESENCE OF CORONARY ANGIOPLASTY IMPLANT AND GRAFT (7) Hx of CABG Code(s): Z95.1 - PRESENCE OF AORTOCORONARY BYPASS GRAFT (8) Obesity Code(s): E66.9 - OBESITY, UNSPECIFIED
--- NOTE | 2017-12-09 13:08 | EKG ---
Test Reason : Blood Pressure : / mmHG Vent. Rate : 046 BPM Atrial Rate : 046 BPM P-R Int : 212 ms QRS Dur : 124 ms QT Int : 472 ms P-R-T Axes : 049 007 076 degrees QTc Int : 413 ms SINUS BRADYCARDIA WITH 1ST DEGREE A-V BLOCK WITH OCCASIONAL PREMATURE VENTRICULAR COMPLEXES NON-SPECIFIC INTRA-VENTRICULAR CONDUCTION DELAY BORDERLINE ECG Confirmed by Michael Bautista MD ([id number]) on 12/09/2017 1:08:10 PM Referred By: Mariely PARK Confirmed By:Michael Bautista MD
--- NOTE | 2017-12-09 14:05 | PN ---
Progress Note, Physician History of Present Illness: stable still with some heamturia otherwise stable - Current Medication List Current Medications: Active Medications Acetaminophen (Tylenol -) 650 mg PO Q6HPO [facility] Last Admin: 12/09/17 06:42 Dose: 650 mg Atorvastatin Calcium (Lipitor -) 10 mg PO HS [facility] Last Admin: 12/08/17 21:57 Dose: 10 mg Folic Acid (Folic Acid -) 1 mg PO DAILY [facility] Last Admin: 12/09/17 09:48 Dose: 1 mg Furosemide (Lasix -) 20 mg PO DAILY [facility] Last Admin: 12/09/17 09:49 Dose: 20 mg Ampicillin Sodium/Sulbactam (Sodium 3 gm/ Sodium Chloride) 100 mls @ 200 mls/ hr IVPB Q6H-IV [facility] Last Admin: 12/09/17 09:49 Dose: 200 mls/hr Lisinopril (Prinivil) 2.5 mg PO DAILY [facility] Last Admin: 12/09/17 09:47 Dose: 2.5 mg Melatonin (Melatonin) 5 mg PO HS PRN PRN Reason: INSOMNIA Last Admin: 12/08/17 21:57 Dose: 5 mg Pantoprazole Sodium (Protonix Iv) 40 mg IVPUSH DAILY [facility] Last Admin: 12/09/17 09:49 Dose: 40 mg Polyethylene Glycol (Miralax (For Daily Use) -) 17 gm PO Q24H PRN PRN Reason: CONSTIPATION Last Admin: 12/07/17 16:24 Dose: 17 gm Senna (Senna -) 2 tab PO HS PRN PRN Reason: CONSTIPATION Last Admin: 12/08/17 15:58 Dose: 2 tab Simethicone (Mylicon -) 80 mg PO Q4H PRN PRN Reason: GAS Last Admin: 12/08/17 15:58 Dose: 80 mg Sodium Phosphate (Fleet Adult Rectal Enema -) 133 ml [place] DAILY PRN PRN Reason: CONSTIPATION Last Admin: 12/05/17 11:52 Dose: 133 ml Tamsulosin HCl (Flomax -) 0.8 mg PO DAILY@0830 [facility] Last Admin: 12/09/17 09:49 Dose: 0.8 mg Warfarin Sodium (Coumadin -) 5 mg PO DAILY@1800 [facility] Last Admin: 12/07/17 17:45 Dose: Not Given - Objective Vital Signs: Vital Signs Temperature 98.4 F 12/09/17 09:00 Pulse Rate 66 12/09/17 09:00 Respiratory Rate 18 12/09/17 09:00 Blood Pressure 127/62 12/09/17 09:00 O2 Sat by Pulse Oximetry (%) 98 12/09/17 09:00 Constitutional: Yes: No Distress, Calm Cardiovascular: Yes: S1, S2 Respiratory: Yes: Regular, CTA Bilaterally Gastrointestinal: Yes: Normal Bowel Sounds, Soft Genitourinary: Yes: Ban[place] Present, Hematuria Musculoskeletal: Yes: WNL Extremities: Yes: WNL Neurological: Yes: Alert, Oriented Psychiatric: Yes: Alert, Oriented Labs: CBC, BMP 12/09/17 05:30 12/07/17 06:30 INR, PTT INR 3.12 (0.83-1.09) H 12/09/17 05:30 Assessment/Plan Problem List - Problems (1) Hematuria Code(s): R31.9 - HEMATURIA, UNSPECIFIED Qualifiers: Hematuria type: gross Qualified Code(s): R31.0 - Gross hematuria (2) Stricture of bladder neck Code(s): N32.0 - BLADDER-NECK OBSTRUCTION (3) Supratherapeutic INR Code(s): R79.1 - ABNORMAL COAGULATION PROFILE (4) Urinary retention Code(s): R33.9 - RETENTION OF URINE, UNSPECIFIED (5) Anxiety Code(s): F41.9 - ANXIETY DISORDER, UNSPECIFIED (6) Atrial fibrillation Code(s): I48.91 - UNSPECIFIED ATRIAL FIBRILLATION (7) Chest pain Code(s): R07.9 - CHEST PAIN, UNSPECIFIED 8 uti plan continue current mgmt continue abx monitor hematuria close watch for clotting will consider deescaling in a day or so
[2017-12-09 17:10] LABS: MCHC 33.2 g/dl (32.0-35.9); MEAN CELL VOLUME 99.2 fl (80-96); MEAN PLT VOLUME 7.8 fl (7.5-11.1); PLATELET COUNT 340 K/MM3 (134-434); RBC 2.72 M/mm3 (4.00-5.60); RDW 14.3 % (11.9-15.9); WHITE BLOOD COUNT 8.2 K/mm3 (4.0-10.0)
[2017-12-09] MEDS: ATORVASTATIN CA 10 MG TABLET (FP) PO SCH (21:22)
[2017-12-09] MEDS: SENNOSIDES 8.6MG TABLET (FP) PO PRN (21:22)
[2017-12-09] MEDS: MELATONIN 5 MG TABLETS PO PRN (21:22)
[2017-12-10] MEDS: ACETAMINOPHEN 325 MG TABLET (FP) PO SCH ×3 (05:50→17:17)
[2017-12-10 06:27] LABS: BASO % 0.8 % (0-2.0); EOS % 5.9 % (0-4.5); HEMATOCRIT 24.8 % (35.4-49); HEMOGLOBIN 8.2 GM/dL (11.7-16.9); LYMPH % 15.9 % (8-40); MCH 32.1 pg (25.7-33.7); MCHC 33.2 g/dl (32.0-35.9); MEAN CELL VOLUME 96.8 fl (80-96); MEAN PLT VOLUME 7.7 fl (7.5-11.1); MONO % 13.3 % (3.8-10.2); NEUT % 64.1 % (42.8-82.8); PLATELET COUNT 301 K/MM3 (134-434); RBC 2.56 M/mm3 (4.00-5.60); WHITE BLOOD COUNT 6.4 K/mm3 (4.0-10.0)
[2017-12-10] MEDS: TAMSULOSIN HCL 0.4 MG CAP.ER.24H (FP) PO SCH (09:34)
[2017-12-10] MEDS: FUROSEMIDE 20 MG TABLET (FP) PO SCH (09:35)
[2017-12-10] MEDS: LISINOPRIL 5 MG TABLET (FP) PO SCH (09:35)
[2017-12-10] MEDS: FOLIC ACID 1 MG TABLET (FP) PO SCH (09:35)
[2017-12-10] MEDS: PANTOPRAZOLE SODIUM 40 MG VIAL IVPUSH SCH (09:36)
--- NOTE | 2017-12-10 12:29 | PN ---
Progress Note (short form) - Note Progress Note: patient seen this am hematuria resolving CBC better Vital Signs Temp 98.3 F 12/10/17 05:38 Pulse 70 12/10/17 05:38 Resp 18 12/10/17 05:38 BP 127/69 12/10/17 05:38 Pulse Ox 96 12/09/17 20:34 Intake & Output 12/09/17 12/10/17 12/10/17 23:59 11:59 23:59 Intake Total 440 420 Output Total 1300 700 Balance -860 -280 Weight 200 lb 12.8 oz Intake: Oral 440 420 Output: Urine 1300 700 Banegas 1300 700 Other: Voiding Method Indwelling Catheter Indwelling Catheter Bowel Movement Yes: Large Soft # Bowel Movements 1 Weight Measurement Method Standing Scale Current Medications Generic Name Dose Route Start Last Admin Trade Name Freq PRN Reason Stop Dose Admin Acetaminophen 650 mg 12/03/17 00:00 12/10/17 05:50 Tylenol - PO 650 mg Q6HPO JORJE Administration Atorvastatin Calcium 10 mg 12/02/17 22:00 12/09/17 21:22 Lipitor - PO 10 mg HS JORJE Administration Folic Acid 1 mg 12/03/17 10:00 12/10/17 09:35 Folic Acid - PO 1 mg DAILY JORJE Administration Furosemide 20 mg 12/03/17 10:00 12/10/17 09:35 Lasix - PO 20 mg DAILY JORJE Administration Lisinopril 2.5 mg 12/03/17 10:00 12/10/17 09:35 Prinivil PO 2.5 mg DAILY JORJE Administration Melatonin 5 mg 12/05/17 22:29 12/09/17 21:22 Melatonin PO 5 mg HS PRN Administration INSOMNIA Pantoprazole Sodium 40 mg 12/06/17 11:00 12/10/17 09:36 Protonix Iv IVPUSH 40 mg DAILY JORJE Administration Polyethylene Glycol 17 gm 12/02/17 21:11 12/07/17 16:24 Miralax (For Daily Use) - PO 17 gm Q24H PRN Administration CONSTIPATION Senna 2 tab 12/02/17 21:11 12/09/17 21:22 Senna - PO 2 tab HS PRN Administration CONSTIPATION Simethicone 80 mg 12/07/17 23:00 12/08/17 15:58 Mylicon - PO 80 mg Q4H PRN Administration GAS Sodium Phosphate 133 ml 12/05/17 12:23 12/05/17 11:52 Fleet Adult Rectal Enema - MS 133 ml DAILY PRN Administration CONSTIPATION Tamsulosin HCl 0.8 mg 12/03/17 08:30 12/10/17 09:34 Flomax - PO 0.8 mg DAILY@0830 [facility] Administration Warfarin Sodium 5 mg 12/04/17 18:00 12/07/17 17:45 Coumadin - PO Not Given DAILY@1800 [facility] CBC,CMP WBC 6.4 K/mm3 (4.0-10.0) 12/10/17 05:30 RBC 2.56 M/mm3 (4.00-5.60) L 12/10/17 05:30 Hgb 8.2 GM/dL (11.7-16.9) L 12/10/17 05:30 Hct 24.8 % (35.4-49) L 12/10/17 05:30 MCV 96.8 fl (80-96) H 12/10/17 05:30 MCH 32.1 pg (25.7-33.7) 12/10/17 05:30 MCHC 33.2 g/dl (32.0-35.9) 12/10/17 05:30 RDW 14.0 % (11.9-15.9) 12/10/17 05:30 Plt Count 301 K/MM3 (134-434) 12/10/17 05:30 MPV 7.7 fl (7.5-11.1) 12/10/17 05:30 Absolute Neuts (auto) 4.1 K/mm3 (1.5-8.0) 12/10/17 05:30 Neutrophils % 64.1 % (42.8-82.8) 12/10/17 05:30 Lymphocytes % 15.9 % (8-40) D 12/10/17 05:30 Monocytes % 13.3 % (3.8-10.2) H 12/10/17 05:30 Eosinophils % 5.9 % (0-4.5) H 12/10/17 05:30 Basophils % 0.8 % (0-2.0) 12/10/17 05:30 Nucleated RBC % 0 % (0-0) 12/10/17 05:30 Sodium 143 mmol/L (136-145) 12/07/17 06:30 Potassium 4.3 mmol/L (3.5-5.1) 12/07/17 06:30 Chloride 110 mmol/L (98-107) H 12/07/17 06:30 Carbon Dioxide 22 mmol/L (21-32) 12/07/17 06:30 Anion Gap 11 (8-16) 12/07/17 06:30 BUN 22 mg/dL (7-18) H 12/07/17 06:30 Creatinine 1.1 mg/dL (0.7-1.3) 12/07/17 06:30 Creat Clearance w eGFR > 60 (>60) 12/07/17 06:30 Random Glucose 101 mg/dL (74-106) 12/07/17 06:30 Lactic Acid 1.5 mmol/L (0.0-2.0) 12/01/17 20:25 Calcium 8.1 mg/dL (8.5-10.1) L 12/07/17 06:30 Phosphorus 3.9 mg/dL (2.5-4.9) D 12/03/17 06:22 Magnesium 1.9 mg/dL (1.8-2.4) 12/03/17 06:22 Total Bilirubin 0.2 mg/dL (0.2-1.0) 12/07/17 06:30 AST 12 U/L (15-37) L 12/07/17 06:30 ALT 26 U/L (12-78) 12/07/17 06:30 Alkaline Phosphatase 173 U/L (45-117) H D 12/07/17 06:30 Creatine Kinase 23 IU/L (39-308) L 12/07/17 19:10 Troponin I < 0.02 ng/ml (0.00-0.05) 12/08/17 05:30 B-Natriuretic Peptide 5206.85 pg/ml (5-450) H 12/01/17 19:20 Total Protein 5.5 g/dl (6.4-8.2) L 12/07/17 06:30 Albumin 2.7 g/dl (3.4-5.0) L 12/07/17 06:30 Physical exam. Constitutional: Yes: No Distress, Anxious Neck: Yes: Supple. no JVD Cardiovascular: Yes: Regular Rate and Rhythm Gastrointestinal: Yes: Soft Genitourinary: Yes: Banegas Present-- slight red urine Edema: LLE: Trace, RLE: Trace Neurological: Yes: Alert Psychiatric: Yes: Alert Assessment/Plan Atrial fibrillation CAD- h/o stents, h/o CABG Systolic CHF Polymicrobial UTI Prostate ca- s/p radiation urinary retention stricture of bladder neck hematuria- better today - coreg d/c due to bradycardia,INR ordered for today may resume coumadin if INR stable -urology follow up -cardiology follow up -antibiotics discussed with dr ellis Problem List - Problems (1) Hematuria Code(s): R31.9 - HEMATURIA, UNSPECIFIED Qualifiers: Hematuria type: gross Qualified Code(s): R31.0 - Gross hematuria (2) Stricture of bladder neck Code(s): N32.0 - BLADDER-NECK OBSTRUCTION (3) Urinary retention Code(s): R33.9 - RETENTION OF URINE, UNSPECIFIED (4) Anxiety Code(s): F41.9 - ANXIETY DISORDER, UNSPECIFIED (5) Atrial fibrillation Code(s): I48.91 - UNSPECIFIED ATRIAL FIBRILLATION (6) History of coronary artery stent placement Code(s): Z95.5 - PRESENCE OF CORONARY ANGIOPLASTY IMPLANT AND GRAFT (7) Hx of CABG Code(s): Z95.1 - PRESENCE OF AORTOCORONARY BYPASS GRAFT (8) Obesity Code(s): E66.9 - OBESITY, UNSPECIFIED
[2017-12-10 13:01] LABS: INR 2.44 (0.83-1.09); PROTHROMBIN TIME (PATIENT) 27.6 SEC (9.7-13.0)
--- NOTE | 2017-12-10 14:47 | PN ---
Progress Note, Physician History of Present Illness: stable no complaints again slight hematuria - Current Medication List Current Medications: Active Medications Acetaminophen (Tylenol -) 650 mg PO Q6HPO [facility] Last Admin: 12/10/17 05:50 Dose: 650 mg Atorvastatin Calcium (Lipitor -) 10 mg PO HS [facility] Last Admin: 12/09/17 21:22 Dose: 10 mg Folic Acid (Folic Acid -) 1 mg PO DAILY [facility] Last Admin: 12/10/17 09:35 Dose: 1 mg Furosemide (Lasix -) 20 mg PO DAILY [facility] Last Admin: 12/10/17 09:35 Dose: 20 mg Lisinopril (Prinivil) 2.5 mg PO DAILY [facility] Last Admin: 12/10/17 09:35 Dose: 2.5 mg Melatonin (Melatonin) 5 mg PO HS PRN PRN Reason: INSOMNIA Last Admin: 12/09/17 21:22 Dose: 5 mg Pantoprazole Sodium (Protonix Iv) 40 mg IVPUSH DAILY [facility] Last Admin: 12/10/17 09:36 Dose: 40 mg Polyethylene Glycol (Miralax (For Daily Use) -) 17 gm PO Q24H PRN PRN Reason: CONSTIPATION Last Admin: 12/07/17 16:24 Dose: 17 gm Senna (Senna -) 2 tab PO HS PRN PRN Reason: CONSTIPATION Last Admin: 12/09/17 21:22 Dose: 2 tab Simethicone (Mylicon -) 80 mg PO Q4H PRN PRN Reason: GAS Last Admin: 12/08/17 15:58 Dose: 80 mg Sodium Phosphate (Fleet Adult Rectal Enema -) 133 ml [place] DAILY PRN PRN Reason: CONSTIPATION Last Admin: 12/05/17 11:52 Dose: 133 ml Tamsulosin HCl (Flomax -) 0.8 mg PO DAILY@0830 [facility] Last Admin: 12/10/17 09:34 Dose: 0.8 mg Warfarin Sodium (Coumadin -) 5 mg PO DAILY@1800 [facility] Last Admin: 12/07/17 17:45 Dose: Not Given - Objective Vital Signs: Vital Signs Temperature 98.3 F 12/10/17 05:38 Pulse Rate 70 12/10/17 05:38 Respiratory Rate 18 12/10/17 05:38 Blood Pressure 127/69 12/10/17 05:38 O2 Sat by Pulse Oximetry (%) 96 12/09/17 20:34 Constitutional: Yes: No Distress, Calm Cardiovascular: Yes: Regular Rate and Rhythm Respiratory: Yes: Regular, CTA Bilaterally Gastrointestinal: Yes: Normal Bowel Sounds, Soft Musculoskeletal: Yes: WNL Extremities: Yes: WNL Neurological: Yes: Alert, Oriented Labs: CBC, BMP 12/10/17 05:30 12/07/17 06:30 INR, PTT INR 2.44 (0.83-1.09) H 12/10/17 12:20 Assessment/Plan Problem List - Problems (1) Hematuria Code(s): R31.9 - HEMATURIA, UNSPECIFIED Qualifiers: Hematuria type: gross Qualified Code(s): R31.0 - Gross hematuria (2) Stricture of bladder neck Code(s): N32.0 - BLADDER-NECK OBSTRUCTION (3) Supratherapeutic INR Code(s): R79.1 - ABNORMAL COAGULATION PROFILE (4) Urinary retention Code(s): R33.9 - RETENTION OF URINE, UNSPECIFIED (5) Anxiety Code(s): F41.9 - ANXIETY DISORDER, UNSPECIFIED (6) Atrial fibrillation Code(s): I48.91 - UNSPECIFIED ATRIAL FIBRILLATION (7) Chest pain Code(s): R07.9 - CHEST PAIN, UNSPECIFIED 8 uti plan continue current mgmt stable monitor hematuria close watch for clotting
[2017-12-10 16:34] VITALS: BMI 30.4
[2017-12-10] MEDS: WARFARIN NA 5 MG TABLET (UD) PO SCH (19:38)
[2017-12-10] MEDS: ATORVASTATIN CA 10 MG TABLET (FP) PO SCH (21:12)
[2017-12-10] MEDS: SENNOSIDES 8.6MG TABLET (FP) PO PRN (21:12)
[2017-12-10] MEDS: MELATONIN 5 MG TABLETS PO PRN (21:12)
[2017-12-11] MEDS: ACETAMINOPHEN 325 MG TABLET (FP) PO SCH ×4 (00:10→17:39)
[2017-12-11 07:31] LABS: INR 1.81 (0.83-1.09); PROTHROMBIN TIME (PATIENT) 20.5 SEC (9.7-13.0)
[2017-12-11] MEDS: TAMSULOSIN HCL 0.4 MG CAP.ER.24H (FP) PO SCH (09:12)
[2017-12-11] MEDS: LISINOPRIL 5 MG TABLET (FP) PO SCH (09:12)
[2017-12-11] MEDS: PANTOPRAZOLE SODIUM 40 MG VIAL IVPUSH SCH (09:12)
[2017-12-11] MEDS: FUROSEMIDE 20 MG TABLET (FP) PO SCH (09:12)
[2017-12-11] MEDS: FOLIC ACID 1 MG TABLET (FP) PO SCH (09:13)
--- NOTE | 2017-12-11 12:48 | PN ---
Progress Note (short form) - Note Progress Note: Vital Signs Temp 97.8 F 12/11/17 07:54 Pulse 63 12/11/17 07:54 Resp 20 12/11/17 07:55 BP 113/65 12/11/17 07:54 Pulse Ox 96 12/11/17 07:55 Intake & Output 12/10/17 12/11/17 12/11/17 23:59 11:59 23:59 Intake Total 490 220 Output Total 1350 Balance -860 220 Weight 200 lb 195 lb 12.8 oz Intake: IV 20 Saline Lock 20 Oral 490 200 Output: Urine 1350 Banegas 1350 Other: Voiding Method Indwelling Catheter Toilet Bowel Movement Yes # Bowel Movements 4 Height 5 ft 8 in Body Mass Index (BMI) 30.4 Weight Measurement Method Standing Scale Active Medications Acetaminophen (Tylenol -) 650 mg PO Q6HPO JORJE Last Admin: 12/11/17 05:12 Dose: 650 mg Atorvastatin Calcium (Lipitor -) 10 mg PO HS JORJE Last Admin: 12/10/17 21:12 Dose: 10 mg Folic Acid (Folic Acid -) 1 mg PO DAILY JORJE Last Admin: 12/11/17 09:13 Dose: 1 mg Furosemide (Lasix -) 20 mg PO DAILY JORJE Last Admin: 12/11/17 09:12 Dose: 20 mg Lisinopril (Prinivil) 2.5 mg PO DAILY JORJE Last Admin: 12/11/17 09:12 Dose: 2.5 mg Melatonin (Melatonin) 5 mg PO HS PRN PRN Reason: INSOMNIA Last Admin: 12/10/17 21:12 Dose: 5 mg Pantoprazole Sodium (Protonix Iv) 40 mg IVPUSH DAILY JORJE Last Admin: 12/11/17 09:12 Dose: 40 mg Polyethylene Glycol (Miralax (For Daily Use) -) 17 gm PO Q24H PRN PRN Reason: CONSTIPATION Last Admin: 12/07/17 16:24 Dose: 17 gm Senna (Senna -) 2 tab PO HS PRN PRN Reason: CONSTIPATION Last Admin: 12/10/17 21:12 Dose: 2 tab Simethicone (Mylicon -) 80 mg PO Q4H PRN PRN Reason: GAS Last Admin: 12/08/17 15:58 Dose: 80 mg Sodium Phosphate (Fleet Adult Rectal Enema -) 133 ml [place] DAILY PRN PRN Reason: CONSTIPATION Last Admin: 12/05/17 11:52 Dose: 133 ml Tamsulosin HCl (Flomax -) 0.8 mg PO DAILY@0830 [facility] Last Admin: 12/11/17 09:12 Dose: 0.8 mg Warfarin Sodium (Coumadin -) 5 mg PO DAILY@1800 JORJE Last Admin: 12/10/17 19:38 Dose: 5 mg CBC, BMP 12/10/17 05:30 12/07/17 06:30 Problem List - Problems (1) Hematuria Code(s): R31.9 - HEMATURIA, UNSPECIFIED Qualifiers: Hematuria type: gross Qualified Code(s): R31.0 - Gross hematuria (2) Stricture of bladder neck Code(s): N32.0 - BLADDER-NECK OBSTRUCTION (3) Urinary retention Code(s): R33.9 - RETENTION OF URINE, UNSPECIFIED (4) Anxiety Code(s): F41.9 - ANXIETY DISORDER, UNSPECIFIED (5) Atrial fibrillation Code(s): I48.91 - UNSPECIFIED ATRIAL FIBRILLATION (6) History of coronary artery stent placement Code(s): Z95.5 - PRESENCE OF CORONARY ANGIOPLASTY IMPLANT AND GRAFT (7) Hx of CABG Code(s): Z95.1 - PRESENCE OF AORTOCORONARY BYPASS GRAFT (8) Obesity Code(s): E66.9 - OBESITY, UNSPECIFIED
--- NOTE | 2017-12-11 15:47 | PN ---
Progress Note, Physician History of Present Illness: stable hematuria has cleared up has pain in the nail - Current Medication List Current Medications: Active Medications Acetaminophen (Tylenol -) 650 mg PO Q6HPO [facility] Last Admin: 12/11/17 11:33 Dose: Not Given Atorvastatin Calcium (Lipitor -) 10 mg PO HS [facility] Last Admin: 12/10/17 21:12 Dose: 10 mg Folic Acid (Folic Acid -) 1 mg PO DAILY [facility] Last Admin: 12/11/17 09:13 Dose: 1 mg Furosemide (Lasix -) 20 mg PO DAILY [facility] Last Admin: 12/11/17 09:12 Dose: 20 mg Lisinopril (Prinivil) 2.5 mg PO DAILY [facility] Last Admin: 12/11/17 09:12 Dose: 2.5 mg Melatonin (Melatonin) 5 mg PO HS PRN PRN Reason: INSOMNIA Last Admin: 12/10/17 21:12 Dose: 5 mg Pantoprazole Sodium (Protonix Iv) 40 mg IVPUSH DAILY [facility] Last Admin: 12/11/17 09:12 Dose: 40 mg Polyethylene Glycol (Miralax (For Daily Use) -) 17 gm PO Q24H PRN PRN Reason: CONSTIPATION Last Admin: 12/07/17 16:24 Dose: 17 gm Senna (Senna -) 2 tab PO HS PRN PRN Reason: CONSTIPATION Last Admin: 12/10/17 21:12 Dose: 2 tab Simethicone (Mylicon -) 80 mg PO Q4H PRN PRN Reason: GAS Last Admin: 12/08/17 15:58 Dose: 80 mg Sodium Phosphate (Fleet Adult Rectal Enema -) 133 ml [place] DAILY PRN PRN Reason: CONSTIPATION Last Admin: 12/05/17 11:52 Dose: 133 ml Tamsulosin HCl (Flomax -) 0.8 mg PO DAILY@0830 [facility] Last Admin: 12/11/17 09:12 Dose: 0.8 mg Warfarin Sodium (Coumadin -) 5 mg PO DAILY@1800 [facility] Last Admin: 12/10/17 19:38 Dose: 5 mg - Objective Vital Signs: Vital Signs Temperature 98.3 F 12/11/17 14:00 Pulse Rate 69 12/11/17 14:00 Respiratory Rate 20 12/11/17 07:55 Blood Pressure 114/57 12/11/17 14:00 O2 Sat by Pulse Oximetry (%) 96 12/11/17 07:55 Constitutional: Yes: No Distress, Calm Cardiovascular: Yes: Regular Rate and Rhythm Respiratory: Yes: Regular, CTA Bilaterally Gastrointestinal: Yes: Normal Bowel Sounds, Soft Extremities: Yes: Other Labs: CBC, BMP 12/10/17 05:30 12/07/17 06:30 INR, PTT INR 1.81 (0.83-1.09) H 12/11/17 06:19 Assessment/Plan Problem List - Problems (1) Hematuria Code(s): R31.9 - HEMATURIA, UNSPECIFIED Qualifiers: Hematuria type: gross Qualified Code(s): R31.0 - Gross hematuria (2) Stricture of bladder neck Code(s): N32.0 - BLADDER-NECK OBSTRUCTION (3) Supratherapeutic INR Code(s): R79.1 - ABNORMAL COAGULATION PROFILE (4) Urinary retention Code(s): R33.9 - RETENTION OF URINE, UNSPECIFIED (5) Anxiety Code(s): F41.9 - ANXIETY DISORDER, UNSPECIFIED (6) Atrial fibrillation Code(s): I48.91 - UNSPECIFIED ATRIAL FIBRILLATION (7) Chest pain Code(s): R07.9 - CHEST PAIN, UNSPECIFIED 8 uti plan continue current mgmt continue abx monitor hematuria close watch for clotting
[2017-12-11] MEDS: WARFARIN NA 5 MG TABLET (UD) PO SCH ×2 (17:38→18:00)
--- NOTE | 2017-12-11 20:22 | PN ---
Progress Note, Physician History of Present Illness: The patient is a 77 year old white male (rajiv Owusu) with a history of CAD--> CABG; LCx DEStent 2014, angioplasty LLE 2018, mild systolic LV dysfunction, HTN , HLD, Prostate cancer, urethral stricture (admitted 11/10/17 for stricture; found to have collection of pus, with ensuing septic shock and transient EKG STT changes,) who presents for evaluation of abdominal pain. The patient report acute onset worsening lower abdominal pain beginning around 5am this morning, prompting his presentation to the ED for further evaluation. 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 The patient notes that his catheter has been clogged before, but he has never experienced pain this severe before. He otherwise denies fevers, chills, SOB, chest pain, nausea, vomiting or changes with bowel movements. - Current Medication List Current Medications: Active Medications Acetaminophen (Tylenol -) 650 mg PO Q6HPO [facility] Last Admin: 12/11/17 17:39 Dose: 650 mg Atorvastatin Calcium (Lipitor -) 10 mg PO HS [facility] Last Admin: 12/10/17 21:12 Dose: 10 mg Folic Acid (Folic Acid -) 1 mg PO DAILY [facility] Last Admin: 12/11/17 09:13 Dose: 1 mg Furosemide (Lasix -) 20 mg PO DAILY [facility] Last Admin: 12/11/17 09:12 Dose: 20 mg Lisinopril (Prinivil) 2.5 mg PO DAILY [facility] Last Admin: 12/11/17 09:12 Dose: 2.5 mg Melatonin (Melatonin) 5 mg PO HS PRN PRN Reason: INSOMNIA Last Admin: 12/10/17 21:12 Dose: 5 mg Pantoprazole Sodium (Protonix Iv) 40 mg IVPUSH DAILY [facility] Last Admin: 12/11/17 09:12 Dose: 40 mg Polyethylene Glycol (Miralax (For Daily Use) -) 17 gm PO Q24H PRN PRN Reason: CONSTIPATION Last Admin: 12/07/17 16:24 Dose: 17 gm Senna (Senna -) 2 tab PO HS PRN PRN Reason: CONSTIPATION Last Admin: 12/10/17 21:12 Dose: 2 tab Simethicone (Mylicon -) 80 mg PO Q4H PRN PRN Reason: GAS Last Admin: 12/08/17 15:58 Dose: 80 mg Sodium Phosphate (Fleet Adult Rectal Enema -) 133 ml [place] DAILY PRN PRN Reason: CONSTIPATION Last Admin: 12/05/17 11:52 Dose: 133 ml Tamsulosin HCl (Flomax -) 0.8 mg PO DAILY@0830 [facility] Last Admin: 12/11/17 09:12 Dose: 0.8 mg Warfarin Sodium (Coumadin -) 5 mg PO DAILY@1800 [facility] Last Admin: 12/11/17 17:38 Dose: 5 mg - Objective Vital Signs: Vital Signs Temperature 98.1 F 12/11/17 17:00 Pulse Rate 60 12/11/17 17:00 Respiratory Rate 20 12/11/17 17:00 Blood Pressure 98/53 12/11/17 17:00 O2 Sat by Pulse Oximetry (%) 96 12/11/17 07:55 Labs: CBC, BMP 12/10/17 05:30 12/07/17 06:30 INR, PTT INR 1.81 (0.83-1.09) H 12/11/17 06:19 Problem List - Problems (1) Supratherapeutic INR Code(s): R79.1 - ABNORMAL COAGULATION PROFILE (2) Hematuria Code(s): R31.9 - HEMATURIA, UNSPECIFIED Qualifiers: Hematuria type: gross Qualified Code(s): R31.0 - Gross hematuria (3) Stricture of bladder neck Code(s): N32.0 - BLADDER-NECK OBSTRUCTION (4) Urinary retention Code(s): R33.9 - RETENTION OF URINE, UNSPECIFIED (5) Acute on chronic systolic (congestive) heart failure Code(s): I50.23 - ACUTE ON CHRONIC SYSTOLIC (CONGESTIVE) HEART FAILURE (6) Anxiety Code(s): F41.9 - ANXIETY DISORDER, UNSPECIFIED (7) Atrial fibrillation Code(s): I48.91 - UNSPECIFIED ATRIAL FIBRILLATION (8) Chest pain Code(s): R07.9 - CHEST PAIN, UNSPECIFIED (9) HTN (hypertension) Code(s): I10 - ESSENTIAL (PRIMARY) HYPERTENSION (10) Herpes simplex Code(s): B00.9 - HERPESVIRAL INFECTION, UNSPECIFIED (11) History of coronary artery stent placement Code(s): Z95.5 - PRESENCE OF CORONARY ANGIOPLASTY IMPLANT AND GRAFT (12) Hx of CABG Code(s): Z95.1 - PRESENCE OF AORTOCORONARY BYPASS GRAFT (13) Hyperlipidemia Code(s): E78.5 - HYPERLIPIDEMIA, UNSPECIFIED (14) PAD (peripheral artery disease) Code(s): I73.9 - PERIPHERAL VASCULAR DISEASE, UNSPECIFIED
[2017-12-11] MEDS: ATORVASTATIN CA 10 MG TABLET (FP) PO SCH (21:28)
[2017-12-11] MEDS: MELATONIN 5 MG TABLETS PO PRN (21:28)
[2017-12-12] MEDS: ACETAMINOPHEN 325 MG TABLET (FP) PO SCH ×3 (06:12→11:44)
[2017-12-12 06:24] LABS: BASO % 0.8 % (0-2.0); EOS % 4.2 % (0-4.5); HEMATOCRIT 25.1 % (35.4-49); HEMOGLOBIN 8.3 GM/dL (11.7-16.9); LYMPH % 13.4 % (8-40); MCH 31.7 pg (25.7-33.7); MCHC 33.1 g/dl (32.0-35.9); MEAN CELL VOLUME 95.7 fl (80-96); MEAN PLT VOLUME 7.2 fl (7.5-11.1); MONO % 13.7 % (3.8-10.2); NEUT % 67.9 % (42.8-82.8); PLATELET COUNT 325 K/MM3 (134-434); RBC 2.62 M/mm3 (4.00-5.60); RDW 14.1 % (11.9-15.9)
[2017-12-12 06:37] LABS: INR 2.06 (0.83-1.09); PROTHROMBIN TIME (PATIENT) 23.3 SEC (9.7-13.0)
[2017-12-12] MEDS: TAMSULOSIN HCL 0.4 MG CAP.ER.24H (FP) PO SCH (08:27)
[2017-12-12] MEDS: LISINOPRIL 5 MG TABLET (FP) PO SCH (09:26)
[2017-12-12] MEDS: FOLIC ACID 1 MG TABLET (FP) PO SCH (09:27)
[2017-12-12] MEDS: PANTOPRAZOLE SODIUM 40 MG VIAL IVPUSH SCH (09:27)
[2017-12-12] MEDS: FUROSEMIDE 20 MG TABLET (FP) PO SCH (09:27)
--- NOTE | 2017-12-12 11:44 | DS ---
Physical Examination Vital Signs: Vital Signs Temperature 209.3 F H 12/12/17 08:07 Pulse Rate 77 12/12/17 08:07 Respiratory Rate 20 12/12/17 08:08 Blood Pressure 104/56 12/12/17 08:07 O2 Sat by Pulse Oximetry (%) 94 L 12/12/17 08:08 Labs: CBC, BMP 12/12/17 05:30 12/07/17 06:30 Discharge Summary Reason For Visit: HEMATURIA\RETENTION OF URINE Current Active Problems Hematuria (Acute) Stricture of bladder neck (Acute) Supratherapeutic INR (Acute) Urinary retention (Acute) Condition: Stable - Instructions Referrals: Rigoberto Benavides MD [Primary Care Provider] - - Home Medications Comprehensive Discharge Medication List: Ambulatory Orders Folic Acid 1 mg PO DAILY 11/04/16 Acetaminophen [Tylenol .Regular Strength -] 650 mg PO Q6H 11/07/17 Tamsulosin HCl [Flomax] 0.4 mg PO DAILY 11/07/17 Atorvastatin Ca [Lipitor] 10 mg PO HS #30 tablet 11/25/17 Carvedilol [Coreg -] 3.125 mg PO BID #30 tablet 11/25/17 Furosemide [Lasix -] 20 mg PO DAILY #30 tablet 11/25/17 Hydrocortisone 2.5% Topical Cr [Anusol-Hc -] 1 applic TP BID #1 tube 11/25/17 Lidocaine 2% Jelly [Xylocaine 2% Jelly] 1 applic TP Q24H PRN #1 applic 11/25/17 Lisinopril [Prinivil] 2.5 mg PO DAILY #30 tablet 11/25/17 Phenazopyridine HCl [Pyridium -] 100 mg PO TID #60 tablet 11/25/17 Polyethylene Glycol 3350 [Miralax 119 gm Btl -] 17 gm PO DAILY #1 bottle Sennosides [Senna -] 2 tab PO HS PRN #30 tablet 11/25/17 Warfarin Na [Coumadin -] 5 mg PO DAILY@1800 #30 tablet 11/25/17 Melatonin 5 mg PO HS PRN tab 12/12/17 Simethicone [Mylicon -] 80 mg PO Q4H PRN tab.chew 12/12/17 Sodium Phosphate/Na Biphos [Fleet Adult Rectal Enema -] 133 ml [place] DAILY PRN enema 08/24/18
[2017-12-12 12:05] VITALS: TEMP 98.3
--- NOTE | 2017-12-12 14:41 | PN ---
Progress Note, Physician History of Present Illness: stable no complaints again slight hematuria - Current Medication List Current Medications: Active Medications Acetaminophen (Tylenol -) 650 mg PO Q6HPO [facility] Last Admin: 12/12/17 11:44 Dose: Not Given Atorvastatin Calcium (Lipitor -) 10 mg PO HS [facility] Last Admin: 12/11/17 21:28 Dose: 10 mg Folic Acid (Folic Acid -) 1 mg PO DAILY [facility] Last Admin: 12/12/17 09:27 Dose: 1 mg Furosemide (Lasix -) 20 mg PO DAILY [facility] Last Admin: 12/12/17 09:27 Dose: 20 mg Lisinopril (Prinivil) 2.5 mg PO DAILY [facility] Last Admin: 12/12/17 09:26 Dose: 2.5 mg Melatonin (Melatonin) 5 mg PO HS PRN PRN Reason: INSOMNIA Last Admin: 12/11/17 21:28 Dose: 5 mg Pantoprazole Sodium (Protonix Iv) 40 mg IVPUSH DAILY [facility] Last Admin: 12/12/17 09:27 Dose: 40 mg Polyethylene Glycol (Miralax (For Daily Use) -) 17 gm PO Q24H PRN PRN Reason: CONSTIPATION Last Admin: 12/07/17 16:24 Dose: 17 gm Senna (Senna -) 2 tab PO HS PRN PRN Reason: CONSTIPATION Last Admin: 12/10/17 21:12 Dose: 2 tab Simethicone (Mylicon -) 80 mg PO Q4H PRN PRN Reason: GAS Last Admin: 12/08/17 15:58 Dose: 80 mg Sodium Phosphate (Fleet Adult Rectal Enema -) 133 ml [place] DAILY PRN PRN Reason: CONSTIPATION Last Admin: 12/05/17 11:52 Dose: 133 ml Tamsulosin HCl (Flomax -) 0.8 mg PO DAILY@0830 [facility] Last Admin: 12/12/17 08:27 Dose: 0.8 mg Warfarin Sodium (Coumadin -) 5 mg PO DAILY@1800 [facility] Last Admin: 12/11/17 18:00 Dose: 5 mg - Objective Vital Signs: Vital Signs Temperature 98.3 F 12/12/17 08:07 Pulse Rate 77 12/12/17 08:07 Respiratory Rate 20 12/12/17 08:08 Blood Pressure 104/56 12/12/17 08:07 O2 Sat by Pulse Oximetry (%) 94 L 12/12/17 08:08 Constitutional: Yes: No Distress, Calm Neck: Yes: Supple Cardiovascular: Yes: Regular Rate and Rhythm Respiratory: Yes: Regular, CTA Bilaterally Gastrointestinal: Yes: Normal Bowel Sounds, Soft Musculoskeletal: Yes: WNL Extremities: Yes: WNL Neurological: Yes: Alert, Oriented Psychiatric: Yes: Alert, Oriented Labs: CBC, BMP 12/12/17 05:30 12/07/17 06:30 INR, PTT INR 2.06 (0.83-1.09) H 12/12/17 05:30 Assessment/Plan Problem List - Problems (1) Hematuria Code(s): R31.9 - HEMATURIA, UNSPECIFIED Qualifiers: Hematuria type: gross Qualified Code(s): R31.0 - Gross hematuria (2) Stricture of bladder neck Code(s): N32.0 - BLADDER-NECK OBSTRUCTION (3) Supratherapeutic INR Code(s): R79.1 - ABNORMAL COAGULATION PROFILE (4) Urinary retention Code(s): R33.9 - RETENTION OF URINE, UNSPECIFIED (5) Anxiety Code(s): F41.9 - ANXIETY DISORDER, UNSPECIFIED (6) Atrial fibrillation Code(s): I48.91 - UNSPECIFIED ATRIAL FIBRILLATION (7) Chest pain Code(s): R07.9 - CHEST PAIN, UNSPECIFIED 8 uti plan continue current mgmt stable monitor hematuria close watch for clotting
[2017-12-12 15:07] VITALS: BP 117/66; PULSE 63
== END 2017-12-12 16:31 | DRG 813 ==
LOC: JER 12:04 → JERBED 14:18 → J5S 17:20 → JICU 12-01 22:21 → J4W 12-02 20:44 → OBSVTOIN 12-03 15:09
PROVIDERS: ADMIT Internal Medicine; ATTEND Internal Medicine
PROC: 3C1ZX8Z Irrigation of Indwelling Device using Irrigating Substance, External Approach (ICD-10-PCS; principal; 2017-11-30)
DX: D68.32 Hemorrhagic disorder due to extrinsic circulating anticoagulants (principal); I50.23 Acute on chronic systolic (congestive) heart failure; N39.0 Urinary tract infection, site not specified; R71.0 Precipitous drop in hematocrit; T83.098A Other mechanical complication of other urinary catheter, initial encounter; Y84.8 Other medical procedures as the cause of abnormal reaction of the patient, or of later complication, without mention of misadventure at the time of the procedure; N32.0 Bladder-neck obstruction; I25.10 Atherosclerotic heart disease of native coronary artery without angina pectoris; E78.5 Hyperlipidemia, unspecified; R31.0 Gross hematuria; I73.9 Peripheral vascular disease, unspecified; I48.91 Unspecified atrial fibrillation; K21.9 Gastro-esophageal reflux disease without esophagitis; M19.90 Unspecified osteoarthritis, unspecified site; M54.5 Low back pain; R33.9 Retention of urine, unspecified; B95.2 Enterococcus as the cause of diseases classified elsewhere; C61 Malignant neoplasm of prostate; E66.9 Obesity, unspecified; Z68.29 Body mass index [BMI] 29.0-29.9, adult; R79.1 Abnormal coagulation profile; F41.9 Anxiety disorder, unspecified; R07.89 Other chest pain; I11.0 Hypertensive heart disease with heart failure; Z87.891 Personal history of nicotine dependence; Z95.5 Presence of coronary angioplasty implant and graft; Z95.1 Presence of aortocoronary bypass graft
CPT/HCPCS: 36415; 71045-TC-FY; 80053; 81003; 81015; 82550; 83605; 83735; 83880; 84100; 84484; 85025; 85027; 85610; 85730; 86850; 86900; 86901; 87086; 87186; 93005; 93010; 97116-GP; 97161-GP; 99283-25; G0378; J1644; J7030

== ENCOUNTER 2018-01-01 16:29 | Observation (INO) | payer OTHER, MEDICARE ==
[2018-01-01 16:46] VITALS: BMI 30.9
--- NOTE | 2018-01-01 16:47 | PDOC ---
Rapid Medical Evaluation Chief Complaint: Chest Pain Time Seen by Provider: 01/01/18 16:40 Medical Evaluation: Allergies Allergy/AdvReac Type Severity Reaction Status Date / Time strawberry Allergy Severe Swelling Verified 01/01/18 16:38 pepper (genus Capsicum) Allergy Unknown Verified 01/01/18 16:38 iohexol [From Omnipaque] Allergy Rash Verified 01/01/18 16:38 01/01/18 16:41 Pt presents to the ED for chest pain starting yesterday. Pt reports it subsided and then came back at 11am after his therapy. Pt was sent over by Dr. Pat. Pt admits to belching, and flatulence. Exam: Tachypnic. RRR. Orders: Labs, IV insert, EKG, CXR Pt to proceed to the ED for further evaluation \ Discharge Disposition - Diagnosis Chest pain - Referrals - Patient Instructions - Post Discharge Activity
[2018-01-01] MEDS ORDERED: ASPIRIN 81 MG CHEWABLE TABLETS PO ONE (16:48)
--- NOTE | 2018-01-01 16:59 | PDOC ---
History of Present Illness - General Chief Complaint: Chest Pain Stated Complaint: PCP SENT/CHEST PAIN Time Seen by Provider: 01/01/18 16:40 - History of Present Illness Initial Comments: 01/01/18 16:59 Mr. Waddell is a 77 yo male w/ pmh of HTN, HLD, CAD (s/p stents), prostate CA, urethral stricture (w/ catheter placed for management until patient able to have TURP) who presents for evaluation of 2 day history of left sided chest pain. Patient reports it started yesterday morning and had initially gotten better but returned this morning after his physical therapy. Patient was evaluated by hardware test engineer (Dr. Pat) w/ EKG and US and pain believed to be non-cardiac in nature however patient sent in for further evaluation for cardiac labs. Patient describes pain as dull and non-radiating, constant. Patient also admits to significant gas recently and had multiple episodes of flatulence during history. The patient denies shortness of breath, headache and dizziness. Denies fever, chills, nausea, vomit, diarrhea and constipation. Denies dysuria, frequency, urgency and hematuria. Past History - Past Medical History Allergies/Adverse Reactions: Allergies Allergy/AdvReac Type Severity Reaction Status Date / Time strawberry Allergy Severe Swelling Verified 01/01/18 16:38 pepper (genus Capsicum) Allergy Unknown Verified 01/01/18 16:38 iohexol [From Omnipaque] Allergy Rash Verified 01/01/18 16:38 Home Medications: Ambulatory Orders Folic Acid 1 mg PO DAILY 11/04/16 Acetaminophen [Tylenol .Regular Strength -] 650 mg PO Q6H 11/07/17 Tamsulosin HCl [Flomax] 0.8 mg PO DAILY 11/07/17 Atorvastatin Ca [Lipitor] 10 mg PO HS #30 tablet 11/25/17 Furosemide [Lasix -] 20 mg PO DAILY #30 tablet 11/25/17 Hydrocortisone 2.5% Topical Cr [Anusol-Hc -] 1 applic TP BID #1 tube 11/25/17 Lidocaine 2% Jelly [Xylocaine 2% Jelly] 1 applic TP Q24H PRN #1 applic 11/25/17 Lisinopril [Prinivil] 2.5 mg PO DAILY #30 tablet 11/25/17 Polyethylene Glycol 3350 [Miralax 119 gm Btl -] 17 gm PO DAILY #1 bottle Sennosides [Senna -] 2 tab PO HS PRN #30 tablet 11/25/17 Melatonin 5 mg PO HS PRN tab 12/12/17 Simethicone [Mylicon -] 80 mg PO Q4H PRN tab.chew 12/12/17 Sodium Phosphate/Na Biphos [Fleet Adult Rectal Enema -] 133 ml RI DAILY PRN enema 12/12/17 Ferrous Sulfate 325 mg PO BID 01/01/18 Omeprazole 40 mg PO DAILY 01/01/18 Sodium Chloride/Aloe Vera [[place] Saline Nasal Gel [place]] 22 ml NS BID 01/01/18 Tramadol HCl [Tramadol HCl ER] 100 mg PO DAILY 01/01/18 Warfarin Na [Coumadin -] 5 mg PO HS 01/01/18 Anemia: No Asthma: No Cancer: Yes (PROSTATE CANCER 2011) Cardiac Disorders: Yes (coronary artery disease, cardiac bypass 10 years ago, Afib) CVA: No COPD: No CHF: No Dementia: No Diabetes: No GI Disorders: No Disorders: Yes (STONES, chronic UTIs) HTN: Yes Hypercholesterolemia: Yes Kidney Stones: Yes Liver Disease: No Seizures: No Thyroid Disease: No - Surgical History Abdominal Surgery: No Appendectomy: No Cardiac Surgery: Yes (open heart, 2 stents) Cholecystectomy: No Lung Surgery: No Neurologic Surgery: No Orthopedic Surgery: No - Immunization History Immunization Up to Date: Yes - Suicide/Smoking/Psychosocial Hx Smoking Status: Yes Smoking History: Never smoked Have you smoked in the past 12 months: No Number of Cigarettes Smoked Daily: 0 If you are a former smoker, when did you quit?: 12 YRS AGO Information on smoking cessation initiated: No 'Breaking Loose' booklet given: 11/10/17 Hx Alcohol Use: No Drug/Substance Use Hx: No Substance Use Type: None Hx Substance Use Treatment: No Review of Systems - Review of Systems Comments:: 01/01/18 17:19 GENERAL/CONSTITUTIONAL: No fever or chills. No weakness. HEAD, EYES, EARS, NOSE AND THROAT: No change in vision. No ear pain or discharge. No sore throat. CARDIOVASCULAR: +Non-radiating chest pain as described. No shortness of breath RESPIRATORY: No cough, wheezing, or hemoptysis. GASTROINTESTINAL: No nausea, vomiting, diarrhea or constipation. GENITOURINARY: No dysuria, frequency, or change in urination. MUSCULOSKELETAL: No joint or muscle swelling or pain. No neck or back pain. SKIN: No rash NEUROLOGIC: No headache, vertigo, loss of consciousness, or change in strength/ sensation. ENDOCRINE: No increased thirst. No abnormal weight change HEMATOLOGIC/LYMPHATIC: No anemia, easy bleeding, or history of blood clots. ALLERGIC/IMMUNOLOGIC: No hives or skin allergy. *Physical Exam - Vital Signs Last Vital Signs Temp Pulse Resp BP Pulse Ox 98.1 F 90 34 H 121/66 100 01/01/18 16:39 01/01/18 16:39 01/01/18 16:39 01/01/18 16:39 01/01/18 16:39 - Physical Exam Comments: 01/01/18 17:19 GENERAL: Awake, alert, and fully oriented, in no acute distress HEAD: No signs of trauma, normocephalic, atraumatic EYES: PERRLA, EOMI, sclera anicteric, conjunctiva clear ENT: Auricles normal inspection, hearing grossly normal, nares patent, oropharynx clear without exudates. Moist mucosa NECK: Normal ROM, supple, no lymphadenopathy, JVD, or masses LUNGS: No distress, speaks full sentences, clear to auscultation bilaterally HEART: Regular rate and rhythm, normal S1 and S2, no murmurs, rubs or gallops, peripheral pulses normal and equal bilaterally. ABDOMEN: Soft, nontender, normoactive bowel sounds. No guarding, no rebound. No masses EXTREMITIES: Normal inspection, Normal range of motion, no edema. No clubbing or cyanosis. NEUROLOGICAL: Cranial nerves II through XII grossly intact. Normal speech, no focal sensorimotor deficits SKIN: Warm, Dry, normal turgor, no rashes or lesions noted. Heart Score/ECG Review - History History: Moderately suspicious - Electrocardiogram EKG: Non specific repolarization disturbance - Age Age: >/= 65 - Risk Factors Risk Factors Heart Score: Yes Hx Hypercholesterolemia, Yes Hx Hypertension, Yes Hx Obesity Based on the list above the patient has:: >/=3 risk factors or Hx atherosclerotic disease - Troponin Troponin: </= normal limit - Score Heart Score - Total: 6 ED Treatment Course - LABORATORY CBC & Chemistry Diagram: 01/01/18 17:20 01/01/18 17:20 Medical Decision Making - Medical Decision Making 01/01/18 18:24 Mr. Waddell is a 77 yo male w/ pmh as described who presents for evaluation of chest pain as described. Cardiac workup started w/ EKG, CXR, labs as below. No acute findings however given patient's complicated medical history and resultant HEART score of 6 will admit for obs/tele for further cardiac workup. [employer] One Teacher and PCP (Dr. Celio Pham) paged for further evaluation. 01/01/18 18:[address] Pham who agrees patient should come in to hospital for further workup. Hospitalist paged for admission. 01/01/18 19:08 Discussed with inpatient team for admission - decision made by inpatient team to admit to observation. *DC/Admit/Observation/Transfer Diagnosis at time of Disposition: Chest pain Qualifiers: Chest pain type: unspecified Qualified Code(s): R07.9 - Chest pain, unspecified - Discharge Dispostion Decision to Admit order: Yes - Referrals - Patient Instructions - Post Discharge Activity
[2018-01-01] MEDS ORDERED: ASPIRIN 81 MG CHEWABLE TABLETS ONE (17:42)
[2018-01-01 17:58] LABS: BASO % 0.5 % (0-2.0); EOS % 1.8 % (0-4.5); HEMATOCRIT 31.3 % (35.4-49); HEMOGLOBIN 10.3 GM/dL (11.7-16.9); LYMPH % 6.7 % (8-40); MCH 30.6 pg (25.7-33.7); MCHC 32.9 g/dl (32.0-35.9); MEAN CELL VOLUME 92.8 fl (80-96); MEAN PLT VOLUME 7.5 fl (7.5-11.1); MONO % 11.1 % (3.8-10.2); NEUT % 79.9 % (42.8-82.8); PLATELET COUNT 320 K/MM3 (134-434); RBC 3.38 M/mm3 (4.00-5.60); RDW 18.5 % (11.9-15.9); WHITE BLOOD COUNT 10.9 K/mm3 (4.0-10.0)
--- NOTE | 2018-01-01 18:04 | PDOC ---
Attending Attestation - Resident Resident Name: Po Steiner - ED Attending Attestation I have performed the following: I have examined & evaluated the patient, The case was reviewed & discussed with the resident, I agree w/resident's findings & plan, Exceptions are as noted - HPI HPI: 01/01/18 18:51 Agree with residents HPI 01/01/18 18:53 - Physicial Exam PE: 01/01/18 18:52 Agree with residents PE - Medical Decision Making 01/01/18 18:53 77 years old multiple cardiac risk factors CAD stents CABG presents with chest pain this morning Troponin negative heart score 6 Limits medicine per the request of the patient's primary care provider for further management. Heart Score/ECG Review - History History: Moderately suspicious - Electrocardiogram EKG: Non specific repolarization disturbance - Age Age: >/= 65 - Risk Factors Risk Factors Heart Score: Yes Hx Hypercholesterolemia, Yes Hx Hypertension, Yes Hx Diabetes, Yes Positive family hx of cardiac disease Based on the list above the patient has:: >/=3 risk factors or Hx atherosclerotic disease - Troponin Troponin: </= normal limit - Score Heart Score - Total: 6 - ECG Impressions Comment:: 01/01/18 18:51 EKG performed at 1643. Demonstrate a normal sinus rhythm and incomplete right bundle-branch block subtle ST depressions laterally. Interpreted by me.
[2018-01-01 18:14] LABS: ALBUMIN 3.6 g/dl (3.4-5.0); ALK PHOS 117 U/L (45-117); ANION GAP 11 MMOL/L (8-16); BILIRUBIN,TOTAL 0.3 mg/dL (0.2-1.0); BLOOD UREA NITROGEN 18 mg/dL (7-18); CALCIUM 9.1 mg/dL (8.5-10.1); CHLORIDE 105 mmol/L (98-107); CO2 23 mmol/L (21-32); GLUCOSE,RANDOM 111 mg/dL (74-106); MAGNESIUM 2.2 mg/dL (1.8-2.4); POTASSIUM 4.3 mmol/L (3.5-5.1); SGOT/AST 12 U/L (15-37); SGPT/ALT 14 U/L (13-61); SODIUM 139 mmol/L (136-145); TOT PROT 6.9 g/dl (6.4-8.2)
[2018-01-01 19:03] LABS: INR 2.06 (0.83-1.09); PROTHROMBIN TIME (PATIENT) 23.3 SEC (9.7-13.0)
[2018-01-01] MEDS ORDERED: diphenhydrAMINE HCL 25 MG CAPSULE (FP) PO ONE (19:20)
[2018-01-01 20:50] LABS: URINE APPEARANCE CLOUDY; URINE BILIRUBIN NEGATIVE (<2.0 mg/dL); URINE COLOR YELLOW; URINE GLUCOSE (UA) NEGATIVE (NEGATIVE); URINE KETONE NEGATIVE (NEGATIVE); URINE NITRITE POSITIVE (NEGATIVE); URINE UROBILINOGEN NEGATIVE mg/dL (0.2-1.0)
[2018-01-01 20:51] LABS: URINE LEUK ESTERASE 3+ (NEGATIVE); URINE PROTEIN 2+ (NEGATIVE)
[2018-01-01 20:53] LABS: URINE BACTERIA FEW /hpf (NONE SEEN); URINE MUCUS RARE
--- NOTE | 2018-01-01 21:28 | HP ---
CHIEF COMPLAINT: chest pain PCP: Ankit HISTORY OF PRESENT ILLNESS: This is a 77 year old male with a past medical history significant for HTN, HLD , CAD s/p CABG and stent placement who presented to the ED with chest pain on and off x 2 days. Pain first occurred yesterday and then resolved spontaneously. Pain recurred today in rehab. Describes pain as not being sharp or stabbing, just a presence. Pt reports pain has almost completely diminished at this time. Pt denies SOB or palpitations. Denies radiation of pain to jaw or shoulder. Of noted, ED reports pt with flushing and heat to his face after receiving ASA. He denies any rash or itching. Pt states that he has taken ASA in past. Tx with benadryl. ER course was notable for: (1) Trop neg x 1, no ECG changes (2) WBC 10.9 (3) U/a 3+ leuk Recent Travel: pt denies PAST MEDICAL HISTORY: HTN, HLD, CAD, AFIB, PAD, prostate CA, urethral stricture, chronic indwelling bishop, kidney stones, severe sepsis s/p cystoscopy and urethrotomy 11/10/17 PAST SURGICAL HISTORY: CABG 2 Cardiac stents, LCx 2015 Stents to B/L legs Social History: Smoking: quit 15-20y ago, prior 1.5 PPD x 30-35y Alcohol: pt denies Drugs: pt denies Family History: mother age 93, old age father age 70, hodgkins brother 8 days old, was a triplet brother with heart disease twin brother with prostate CA Allergies strawberry Allergy (Severe, Verified 01/01/18 16:38) Swelling pepper (genus Capsicum) Allergy (Unknown, Verified 01/01/18 16:38) iohexol [From Omnipaque] Allergy (Verified 01/01/18 16:38) Rash HOME MEDICATIONS: 3 Medication Instructions Recorded Folic Acid 1 mg PO DAILY 11/04/16 Acetaminophen [Tylenol .Regular 650 mg PO Q6H 11/07/17 Strength -] Tamsulosin HCl [Flomax] 0.8 mg PO DAILY 11/07/17 Atorvastatin Ca [Lipitor] 10 mg PO HS #30 tablet 11/25/17 Furosemide [Lasix -] 20 mg PO DAILY #30 tablet 11/25/17 Hydrocortisone 2.5% Topical Cr 1 applic TP BID #1 tube 11/25/17 [Anusol-Hc -] Lidocaine 2% Jelly [Xylocaine 2% 1 applic TP Q24H PRN #1 applic 11/25/17 Jelly] Lisinopril [Prinivil] 2.5 mg PO DAILY #30 tablet 11/25/17 Polyethylene Glycol 3350 [Miralax 17 gm PO DAILY #1 bottle 11/25/17 119 gm Btl -] Sennosides [Senna -] 2 tab PO HS PRN #30 tablet 11/25/17 Melatonin 5 mg PO HS PRN tab 12/12/17 Simethicone [Mylicon -] 80 mg PO Q4H PRN tab.chew 12/12/17 Sodium Phosphate/Na Biphos [Fleet 133 ml [place] DAILY PRN enema 12/12/17 Adult Rectal Enema -] Ferrous Sulfate 325 mg PO BID 01/01/18 Omeprazole 40 mg PO DAILY 01/01/18 Sodium Chloride/Aloe Vera [[place] 22 ml NS BID 01/01/18 Saline Nasal Gel [place]] Tramadol HCl [Tramadol HCl ER] 100 mg PO DAILY 01/01/18 Warfarin Na [Coumadin -] 5 mg PO HS 01/01/18 REVIEW OF SYSTEMS CONSTITUTIONAL: Absent: fever, chills, diaphoresis, generalized weakness, malaise, loss of appetite, weight change HEENT: Absent: rhinorrhea, nasal congestion, throat pain, throat swelling, difficulty swallowing, mouth swelling, ear pain, eye pain, visual changes CARDIOVASCULAR: Present: chest pain Absent: syncope, palpitations, irregular heart rate, lightheadedness, peripheral edema RESPIRATORY: Absent: cough, shortness of breath, dyspnea with exertion, orthopnea, wheezing, stridor, hemoptysis GASTROINTESTINAL: Absent: abdominal pain, abdominal distension, nausea, vomiting, diarrhea, constipation, melena, hematochezia GENITOURINARY: Absent: dysuria, frequency, urgency, hesitancy, hematuria, flank pain, genital pain MUSCULOSKELETAL: Absent: myalgia, arthralgia, joint swelling, back pain, neck pain SKIN: Absent: rash, itching, pallor HEMATOLOGIC/IMMUNOLOGIC: Absent: easy bleeding, easy bruising, lymphadenopathy, frequent infections ENDOCRINE: Absent: unexplained weight gain, unexplained weight loss, heat intolerance, cold intolerance NEUROLOGIC: Absent: headache, focal weakness or paresthesias, dizziness, unsteady gait, seizure, mental status changes, bladder or bowel incontinence PSYCHIATRIC: Absent: anxiety, depression, suicidal or homicidal ideation, hallucinations. PHYSICAL EXAMINATION Vital Signs - 24 hr 3 01/01/18 01/01/18 01/01/18 16:39 18:45 20:15 Temperature 98.1 F Pulse Rate 90 Pulse Rate [ 81 Radial] Respiratory 34 H 24 Rate Blood Pressure 121/66 Blood Pressure 130/68 [Left Arm] O2 Sat by Pulse 100 95 97 Oximetry (%) GENERAL: Awake, alert, and fully oriented, in no acute distress. HEAD: Normal with no signs of trauma. EYES: Pupils equal, round and reactive to light, extraocular movements intact, sclera anicteric, conjunctiva clear. No lid lag. EARS, NOSE, THROAT: Ears normal, nares patent, oropharynx clear without exudates. Moist mucous membranes. NECK: Normal range of motion, supple without lymphadenopathy, JVD, or masses. LUNGS: Breath sounds equal, clear to auscultation bilaterally. No wheezes, and no crackles. No accessory muscle use. HEART: Regular rate and rhythm, normal S1 and S2 without murmur, rub or gallop. ABDOMEN: Soft, nontender, not distended, normoactive bowel sounds, no guarding, no rebound, no masses. No hepatomegaly or splenomegaly. MUSCULOSKELETAL: Normal range of motion at all joints. No bony deformities or tenderness. No CVA tenderness. UPPER EXTREMITIES: 2+ pulses, warm, well-perfused. No cyanosis. No clubbing. No peripheral edema. LOWER EXTREMITIES: 2+ pulses, warm, well-perfused. No calf tenderness. No peripheral edema. NEUROLOGICAL: Cranial nerves II-XII intact. Normal speech. PSYCHIATRIC: Cooperative. Good eye contact. Appropriate mood and affect. SKIN: Warm, dry, normal turgor, no rashes or lesions noted, normal capillary refill. Laboratory Results - last 24 hr 3 01/01/18 01/01/18 01/01/18 17:20 17:20 17:20 WBC 10.9 H RBC 3.38 L Hgb 10.3 L Hct 31.3 L D MCV 92.8 MCH 30.6 MCHC 32.9 RDW 18.5 H Plt Count 320 MPV 7.5 Absolute Neuts (auto) 8.7 H Neutrophils % 79.9 Lymphocytes % 6.7 L D Monocytes % 11.1 H Eosinophils % 1.8 Basophils % 0.5 Nucleated RBC % 0 PT with INR 23.30 H INR 2.06 H Sodium Potassium Chloride Carbon Dioxide Anion Gap BUN Creatinine Creat Clearance w eGFR Random Glucose Calcium Magnesium Total Bilirubin AST ALT Alkaline Phosphatase Creatine Kinase Troponin I Total Protein Albumin Urine Color Yellow Urine Appearance Cloudy Urine pH 5.0 D Ur Specific Falls 1.017 Urine Protein 2+ H Urine Glucose (UA) Negative Urine Ketones Negative Urine Blood 2+ H Urine Nitrite Positive Urine Bilirubin Negative Urine Urobilinogen Negative Ur Leukocyte Esterase 3+ H Urine WBC (Auto) 922 Urine RBC (Auto) 69 Urine Bacteria Few Urine Mucus Rare 3 01/01/18 01/01/18 17:20 17:20 WBC RBC Hgb Hct MCV MCH MCHC RDW Plt Count MPV Absolute Neuts (auto) Neutrophils % Lymphocytes % Monocytes % Eosinophils % Basophils % Nucleated RBC % PT with INR INR Sodium 139 Potassium 4.3 Chloride 105 Carbon Dioxide 23 Anion Gap 11 BUN 18 Creatinine 1.0 Creat Clearance w eGFR > 60 Random Glucose 111 H Calcium 9.1 Magnesium 2.2 Total Bilirubin 0.3 AST 12 L ALT 14 Alkaline Phosphatase 117 Creatine Kinase 36 Troponin I < 0.02 Total Protein 6.9 Albumin 3.6 Urine Color Urine Appearance Urine pH Ur Specific Falls Urine Protein Urine Glucose (UA) Urine Ketones Urine Blood Urine Nitrite Urine Bilirubin Urine Urobilinogen Ur Leukocyte Esterase Urine WBC (Auto) Urine RBC (Auto) Urine Bacteria Urine Mucus ECG Normal sinus rhythm vent rate 81, QTC 457 Incomplete LBBB TWI lead I, aVL, new when c/w prior ECGs Radiology Reports CXR portable official read pending, no obvious infiltrates or effusions ASSESSMENT/PLAN: 77yM with PMH HTN, HLD, CAD, AFIB, PAD, prostate CA, urethral stricture, chronic indwelling bishop, kidney stones, severe sepsis s/p cystoscopy and urethrotomy 11/10/17 presented to the ED with chest pain. Chest pain r/o ACS - troponin neg x 1, repeat x 2 more - repeat ECG in am - observe on tele - cardiology consult HTN/HLD/CAD/Afib - cont home meds: warfarin, lipitor, lasix, prinivil - pt currently in sinus rhythm PAD - cont lipitor, warfarin, pt claims he was on ASA, but not on [facility] med list prostate CA - urology f/u as outpatient, cont bishop UTI - + wbc in u/a and elevated WBC in blood - will treat. Prior c/s both organisms sensitive to levaquin, same ordered. DVT PPX - cont home warfarin FEN - tolerating po - BMP in am - low sodium diet as tolerated Dispo: Pt currently requires further observation. Visit type - Emergency Visit Emergency Visit: Yes ED Registration Date: 01/01/18 Care time: The patient presented to the Emergency Department on the above date and was hospitalized for further evaluation of their emergent condition. - New Patient This patient is new to me today: Yes Date on this admission: 01/01/18 - Critical Care Critical Care patient: No Hospitalist Screening - Colonoscopy Questionnaire Colonoscopy Questionnaire: Colonoscopy Questionnaire - Patient: 50 - 75 years old and never had a screening colonoscopy: No History of colon or rectal polyps, or CA: No History of IBD, Crohn's disease or UC: No History of abdominal radiation therapy as a child: No - Relative: 1 with colon or rectal CA, or polyps at age 60 or younger: No Colon or rectal CA diagnosed at age 45 or younger: No Multiple relatives with colon or rectal CA: No - Outcome: Screening Result: Negative Screen
[2018-01-01] MEDS ORDERED: HYDROCORTISONE 2.5% TOPICAL CREAM 30 GM TUBE TP PRN (21:47)
[2018-01-01] MEDS ORDERED: SENNOSIDES 8.6MG TABLET (FP) PO PRN (21:47)
[2018-01-01] MEDS ORDERED: SIMETHICONE 80 MG TAB.CHEW (FP) PO PRN (21:47)
[2018-01-01] MEDS ORDERED: MELATONIN 5 MG TABLETS PO PRN (21:47)
[2018-01-01] MEDS: ACETAMINOPHEN 325 MG TABLET (FP) PO SCH (22:11)
[2018-01-01] MEDS ORDERED: ACETAMINOPHEN 325 MG TABLET (FP) ONE (22:15)
[2018-01-01] MEDS ORDERED: WARFARIN NA 5 MG TABLET (UD) ONE (22:16)
[2018-01-01] MEDS ORDERED: ATORVASTATIN CA 10 MG TABLET (FP) ONE (22:16)
[2018-01-01] MEDS: WARFARIN NA 5 MG TABLET (UD) PO SCH (22:20)
[2018-01-01] MEDS: SODIUM CHLORIDE NASAL SPRAY 44 ML BOTTLE NS SCH (22:20)
[2018-01-01] MEDS: ATORVASTATIN CA 10 MG TABLET (FP) PO SCH (22:21)
[2018-01-02] MEDS ORDERED: ACETAMINOPHEN 325 MG TABLET (FP) ONE (05:44)
[2018-01-02] MEDS: ACETAMINOPHEN 325 MG TABLET (FP) PO SCH ×3 (05:54→21:56)
[2018-01-02 06:32] LABS: BASO % 0.9 % (0-2.0); EOS % 4.8 % (0-4.5); HEMATOCRIT 30.9 % (35.4-49); HEMOGLOBIN 10.2 GM/dL (11.7-16.9); MCH 30.4 pg (25.7-33.7); MEAN PLT VOLUME 7.1 fl (7.5-11.1); MONO % 15.2 % (3.8-10.2); NEUT % 66.1 % (42.8-82.8); PLATELET COUNT 286 K/MM3 (134-434); RBC 3.36 M/mm3 (4.00-5.60); RDW 18.5 % (11.9-15.9); WHITE BLOOD COUNT 6.2 K/mm3 (4.0-10.0)
[2018-01-02 06:44] LABS: INR 2.61 (0.83-1.09); PROTHROMBIN TIME (PATIENT) 29.5 SEC (9.7-13.0)
[2018-01-02 06:55] LABS: ANION GAP 5 MMOL/L (8-16); BLOOD UREA NITROGEN 16 mg/dL (7-18); CALCIUM 8.8 mg/dL (8.5-10.1); CHLORIDE 104 mmol/L (98-107); CO2 28 mmol/L (21-32); GLUCOSE,RANDOM 102 mg/dL (74-106); MAGNESIUM 2.3 mg/dL (1.8-2.4); PHOSPHOROUS 3.4 mg/dL (2.5-4.9); SODIUM 137 mmol/L (136-145)
[2018-01-02] MEDS ORDERED: FERROUS SO4 325 MG TABLET (FP) ONE (08:52)
[2018-01-02] MEDS ORDERED: TAMSULOSIN HCL 0.4 MG CAP.ER.24H (FP) ONE (08:52)
[2018-01-02] MEDS: FERROUS SO4 325 MG TABLET (FP) PO SCH ×2 (08:54→17:46)
[2018-01-02] MEDS: TAMSULOSIN HCL 0.4 MG CAP.ER.24H (FP) PO SCH (08:54)
[2018-01-02] MEDS ORDERED: FUROSEMIDE 40 MG TABLET (FP) ONE (09:08)
[2018-01-02] MEDS ORDERED: traMADol HCL 50 MG TABLET ONE (09:08)
[2018-01-02] MEDS ORDERED: LISINOPRIL 5 MG TABLET (FP) ONE (09:09)
[2018-01-02] MEDS ORDERED: PANTOPRAZOLE 40 MG TABLET (FP) ONE (09:09)
[2018-01-02] MEDS ORDERED: FOLIC ACID 1 MG TABLET (FP) ONE (09:10)
--- NOTE | 2018-01-02 09:21 | EKG ---
Test Reason : Blood Pressure : / mmHG Vent. Rate : 081 BPM Atrial Rate : 081 BPM P-R Int : 172 ms QRS Dur : 118 ms QT Int : 394 ms P-R-T Axes : 009 014 117 degrees QTc Int : 457 ms NORMAL SINUS RHYTHM INCOMPLETE LEFT BUNDLE BRANCH BLOCK ABNORMAL ECG Confirmed by CARLOS LIN MD ([id number]) on 01/02/2018 9:20:58 AM Referred By: Confirmed By:CARLOS LIN MD
[2018-01-02] MEDS: POLYETHYLENE GLYCOL 3350 119 GM BTL PO SCH (09:25)
[2018-01-02] MEDS: LISINOPRIL 5 MG TABLET (FP) PO SCH (09:26)
[2018-01-02] MEDS: FOLIC ACID 1 MG TABLET (FP) PO SCH (09:26)
[2018-01-02] MEDS: PANTOPRAZOLE 40 MG TABLET (FP) PO SCH (09:26)
[2018-01-02] MEDS: SODIUM CHLORIDE NASAL SPRAY 44 ML BOTTLE NS SCH ×2 (09:26→22:09)
[2018-01-02] MEDS: FUROSEMIDE 20 MG TABLET (FP) PO SCH (09:26)
[2018-01-02] MEDS: traMADol HCL 50 MG TABLET PO SCH ×2 (09:26→21:57)
--- NOTE | 2018-01-02 10:17 | PN ---
Progress Note (short form) - Note Progress Note: pt seen/ examined comfortable chart reviewed mi ruled out anxious Vital Signs Temp 97.9 F 01/02/18 10:01 Pulse 71 01/02/18 10:01 Resp 18 01/02/18 10:01 BP 138/71 01/02/18 10:01 Pulse Ox 97 01/02/18 10:01 Intake & Output 01/01/18 01/01/18 01/02/18 11:59 23:59 11:59 Output Total 120 Balance -120 Weight 203 lb Output: Urine 120 Bishop 120 Other: Voiding Method Indwelling Catheter Indwelling Catheter Bowel Movement Yes # Bowel Movements 1 Height 5 ft 8 in Body Mass Index (BMI) 30.9 Weight Measurement Method Est/Stated by Patient Active Medications Acetaminophen (Tylenol -) 650 mg PO TID [facility] Last Admin: 01/02/18 05:54 Dose: 650 mg Atorvastatin Calcium (Lipitor -) 10 mg PO HS [facility] Last Admin: 01/01/18 22:21 Dose: 10 mg Ferrous Sulfate (Feosol -) 325 mg PO BIDWM [facility] Last Admin: 01/02/18 08:54 Dose: 325 mg Folic Acid (Folic Acid -) 1 mg PO DAILY [facility] Last Admin: 01/02/18 09:26 Dose: 1 mg Furosemide (Lasix -) 20 mg PO DAILY [facility] Last Admin: 01/02/18 09:26 Dose: 20 mg Hydrocortisone (Anusol 2.5% Hc Cream -) 1 applic TP Q12H PRN PRN Reason: HEMORRHOIDS Levofloxacin (Levaquin 500 Mg Premixed Ivpb -) 500 mg in 100 mls @ 100 mls/hr IVPB [facility]; Protocol Last Admin: 01/01/18 23:20 Dose: 100 mls/hr Lisinopril (Prinivil) 5 mg PO DAILY [facility] Last Admin: 01/02/18 09:26 Dose: 5 mg Melatonin (Melatonin) 5 mg PO HS PRN PRN Reason: INSOMNIA Pantoprazole Sodium (Protonix -) 40 mg PO DAILY [facility] Last Admin: 01/02/18 09:26 Dose: 40 mg Polyethylene Glycol (Miralax (For Daily Use) -) 17 gm PO DAILY [facility] Last Admin: 01/02/18 09:25 Dose: 17 gm Senna (Senna -) 2 tab PO HS PRN PRN Reason: CONSTIPATION Simethicone (Mylicon -) 80 mg PO Q4H PRN PRN Reason: GAS Sodium Chloride ([place] Nasal [place] -) 1 spray NS BID [facility] Last Admin: 01/02/18 09:26 Dose: Not Given Tamsulosin HCl (Flomax -) 0.8 mg PO DAILY@0830 [facility] Last Admin: 01/02/18 08:54 Dose: 0.8 mg Tramadol HCl (Ultram -) 50 mg PO BID [facility] Last Admin: 01/02/18 09:26 Dose: 50 mg Warfarin Sodium (Coumadin -) 5 mg PO DAILY@1800 [facility] Last Admin: 01/01/18 22:20 Dose: 5 mg CBC, BMP 01/02/18 06:00 01/02/18 06:00 Physical Exam Constitutional: Yes: No Distress, Anxious Eyes: Yes: Conjunctiva Clear Neck: Yes: Supple, Other (no jvd) Cardiovascular: Yes: Regular Rate and Rhythm Respiratory: Yes: CTA Bilaterally Gastrointestinal: Yes: Soft Edema: no . Chronic bishop + Neurological: Yes: Alert Psychiatric: Yes: Alert Assessment/Plan Discussed stable cardiology to follow abx for uti-- I believe likely colonization will follow Problem List - Problems (1) Bishop catheter in place Code(s): Z92.89 - PERSONAL HISTORY OF OTHER MEDICAL TREATMENT (2) Atrial fibrillation Code(s): I48.91 - UNSPECIFIED ATRIAL FIBRILLATION (3) Chest pain Code(s): R07.9 - CHEST PAIN, UNSPECIFIED Qualifiers: Chest pain type: unspecified Qualified Code(s): R07.9 - Chest pain, unspecified (4) HTN (hypertension) Code(s): I10 - ESSENTIAL (PRIMARY) HYPERTENSION (5) History of coronary artery stent placement Code(s): Z95.5 - PRESENCE OF CORONARY ANGIOPLASTY IMPLANT AND GRAFT (6) Hx of CABG Code(s): Z95.1 - PRESENCE OF AORTOCORONARY BYPASS GRAFT
--- NOTE | 2018-01-02 12:05 | PN ---
Progress Note, Physician Chief Complaint: 77 year old male patient comes in for a cardiovascular evaluation due to frequent belching and gas described as "like chest discomfort" and is relieved with belching and anti-acids. 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 Blanton SANTIAGO of left PDA July 07, 2014 Dr. Blanton dizziness Hyperlipidemia Hypertension Negative MIBI stress test 2013 [place] [facility]. NSVT Pauses PCI SANTIAGO of p LCx March 30, 2015 Dr. Blanton PCI LCx 08/17/12 [facility] 07/07/14 Dr. Blanton MOP WORKER/stent right SFA 526/16 DR BLANTON Right SFA 100 occlusion July 07, 2014 Dr. Blanton s/p MOP WORKER drug elluting balloon L SFA 2015 s/p MOP WORKER left SFA 09/25/17 for left foot ulcer s/p urethral stricture after cystoscopy and urethrotomy the patient went into septic shock and was treated with antibiotics and was stabilized. October 2017 - Current Medication List Current Medications: Active Medications Acetaminophen (Tylenol -) 650 mg PO TID [facility] Last Admin: 01/02/18 05:54 Dose: 650 mg Atorvastatin Calcium (Lipitor -) 10 mg PO HS [facility] Last Admin: 01/01/18 22:21 Dose: 10 mg Ferrous Sulfate (Feosol -) 325 mg PO BIDWM [facility] Last Admin: 01/02/18 08:54 Dose: 325 mg Folic Acid (Folic Acid -) 1 mg PO DAILY [facility] Last Admin: 01/02/18 09:26 Dose: 1 mg Furosemide (Lasix -) 20 mg PO DAILY [facility] Last Admin: 01/02/18 09:26 Dose: 20 mg Hydrocortisone (Anusol 2.5% Hc Cream -) 1 applic TP Q12H PRN PRN Reason: HEMORRHOIDS Levofloxacin (Levaquin 500 Mg Premixed Ivpb -) 500 mg in 100 mls @ 100 mls/hr IVPB [facility]; Protocol Last Admin: 01/01/18 23:20 Dose: 100 mls/hr Lisinopril (Prinivil) 5 mg PO DAILY [facility] Last Admin: 01/02/18 09:26 Dose: 5 mg Melatonin (Melatonin) 5 mg PO HS PRN PRN Reason: INSOMNIA Pantoprazole Sodium (Protonix -) 40 mg PO DAILY [facility] Last Admin: 01/02/18 09:26 Dose: 40 mg Polyethylene Glycol (Miralax (For Daily Use) -) 17 gm PO DAILY [facility] Last Admin: 01/02/18 09:25 Dose: 17 gm Senna (Senna -) 2 tab PO HS PRN PRN Reason: CONSTIPATION Simethicone (Mylicon -) 80 mg PO Q4H PRN PRN Reason: GAS Sodium Chloride ([place] Nasal [place] -) 1 spray NS BID [facility] Last Admin: 01/02/18 09:26 Dose: Not Given Tamsulosin HCl (Flomax -) 0.8 mg PO DAILY@0830 [facility] Last Admin: 01/02/18 08:54 Dose: 0.8 mg Tramadol HCl (Ultram -) 50 mg PO BID [facility] Last Admin: 01/02/18 09:26 Dose: 50 mg Warfarin Sodium (Coumadin -) 5 mg PO DAILY@1800 [facility] Last Admin: 01/01/18 22:20 Dose: 5 mg - Objective Vital Signs: Vital Signs Temperature 98.6 F 01/02/18 11:06 Pulse Rate 76 01/02/18 11:06 Respiratory Rate 18 01/02/18 11:06 Blood Pressure 138/78 01/02/18 11:06 O2 Sat by Pulse Oximetry (%) 96 01/02/18 11:06 Eyes: Yes: WNL, Conjunctiva Clear, EOM Intact HENT: Yes: WNL, Atraumatic, Normocephalic Neck: Yes: WNL, Supple, Trachea Midline Cardiovascular: Yes: WNL, Regular Rate and Rhythm Respiratory: Yes: WNL, Regular, CTA Bilaterally Gastrointestinal: Yes: WNL, Normal Bowel Sounds Genitourinary: Yes: WNL Musculoskeletal: Yes: WNL Extremities: Yes: Other (healing toe wound) Edema: No Peripheral Pulses: Left Doralis Pedis: 1+, Right Dorsalis Pedis: 1+, Left Femoral: 1+, Right Femoral: 1+ Integumentary: Yes: WNL Neurological: Yes: WNL, Alert, Oriented ...Motor Strength: WNL Psychiatric: Yes: WNL Labs: CBC, BMP 01/02/18 06:00 01/02/18 06:00 INR, PTT INR 2.61 (0.83-1.09) H 01/02/18 06:00 Assessment/Plan Frequent belching most likely due to dyspepsia, I would consider a GI evaluation. His symptoms likely not cardiac in origin since the EKG and ECHO are unchanged. ashd s/p cabg htn hlp pad Plan gi eval cardiac boles stable can be f/u as outpatient
[2018-01-02] MEDS: WARFARIN NA 5 MG TABLET (UD) PO SCH (17:46)
[2018-01-02] MEDS ORDERED: DOCUSATE SODIUM 100 MG CAPSULE (FP) PO ONE (20:56)
[2018-01-02] MEDS: ATORVASTATIN CA 10 MG TABLET (FP) PO SCH (21:57)
[2018-01-03] MEDS: ACETAMINOPHEN 325 MG TABLET (FP) PO SCH (06:28)
--- NOTE | 2018-01-03 08:57 | PN ---
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 Blanton SANTIAGO of left PDA July 07, 2014 Dr. Blanton dizziness Hyperlipidemia Hypertension Negative MIBI stress test 2013 [place] [facility]. NSVT Pauses PCI SANTIAGO of p LCx March 30, 2015 Dr. Blanton PCI LCx 08/17/12 Franny [facility] PCI LCx 07/07/14 Dr. Blanton HAND FUNNEL COATER/stent right SFA 526/16 DR BLANTON Right SFA 100 occlusion July 07, 2014 Dr. Blanton s/p HAND FUNNEL COATER drug elluting balloon L SFA 2015 s/p HAND FUNNEL COATER left SFA 09/25/17 for left foot ulcer s/p urethral stricture after cystoscopy and urethrotomy the patient went into septic shock and was treated with antibiotics and was stabilized. October 2017 - Current Medication List Current Medications: Active Medications Acetaminophen (Tylenol -) 650 mg PO TID [facility] Last Admin: 01/03/18 06:28 Dose: 650 mg Atorvastatin Calcium (Lipitor -) 10 mg PO HS [facility] Last Admin: 01/02/18 21:57 Dose: 10 mg Ferrous Sulfate (Feosol -) 325 mg PO BIDWM [facility] Last Admin: 01/02/18 17:46 Dose: 325 mg Folic Acid (Folic Acid -) 1 mg PO DAILY [facility] Last Admin: 01/02/18 09:26 Dose: 1 mg Furosemide (Lasix -) 20 mg PO DAILY [facility] Last Admin: 01/02/18 09:26 Dose: 20 mg Hydrocortisone (Anusol 2.5% Hc Cream -) 1 applic TP Q12H PRN PRN Reason: HEMORRHOIDS Levofloxacin (Levaquin 500 Mg Premixed Ivpb -) 500 mg in 100 mls @ 100 mls/hr IVPB HS [facility]; Protocol Last Admin: 01/02/18 22:08 Dose: 100 mls/hr Lisinopril (Prinivil) 5 mg PO DAILY [facility] Last Admin: 01/02/18 09:26 Dose: 5 mg Melatonin (Melatonin) 5 mg PO HS PRN PRN Reason: INSOMNIA Pantoprazole Sodium (Protonix -) 40 mg PO DAILY [facility] Last Admin: 01/02/18 09:26 Dose: 40 mg Polyethylene Glycol (Miralax (For Daily Use) -) 17 gm PO DAILY [facility] Last Admin: 01/02/18 09:25 Dose: 17 gm Senna (Senna -) 2 tab PO HS PRN PRN Reason: CONSTIPATION Simethicone (Mylicon -) 80 mg PO Q4H PRN PRN Reason: GAS Sodium Chloride ([place] Nasal [place] -) 1 spray NS BID [facility] Last Admin: 01/02/18 22:09 Dose: 1 spr Tamsulosin HCl (Flomax -) 0.8 mg PO DAILY@0830 [facility] Last Admin: 01/02/18 08:54 Dose: 0.8 mg Tramadol HCl (Ultram -) 50 mg PO BID [facility] Last Admin: 01/02/18 21:57 Dose: 50 mg Warfarin Sodium (Coumadin -) 5 mg PO DAILY@1800 [facility] Last Admin: 01/02/18 17:46 Dose: 5 mg - Objective Vital Signs: Vital Signs Temperature 98.6 F 01/03/18 06:00 Pulse Rate 70 01/03/18 06:00 Respiratory Rate 18 01/03/18 06:00 Blood Pressure 113/72 01/03/18 06:00 O2 Sat by Pulse Oximetry (%) 96 01/02/18 16:00 Eyes: Yes: WNL, Conjunctiva Clear, EOM Intact HENT: Yes: WNL, Atraumatic, Normocephalic Neck: Yes: WNL, Supple, Trachea Midline Cardiovascular: Yes: WNL, Regular Rate and Rhythm Respiratory: Yes: WNL, Regular, CTA Bilaterally Gastrointestinal: Yes: WNL, Normal Bowel Sounds Genitourinary: Yes: WNL Musculoskeletal: Yes: WNL Extremities: Yes: WNL Edema: No Integumentary: Yes: WNL Neurological: Yes: WNL, Alert, Oriented ...Motor Strength: WNL Psychiatric: Yes: WNL Labs: CBC, BMP 01/02/18 06:00 01/02/18 06:00 INR, PTT INR 2.61 (0.83-1.09) H 01/02/18 06:00 Assessment/Plan Frequent belching most likely due to dyspepsia, I would consider a GI evaluation. His symptoms likely not cardiac in origin since the EKG and ECHO are unchanged. ashd s/p cabg htn hlp pad Plan gi eval cardiac boles stable can be f/u as outpatient stable for d/c home will d/c telemetry
[2018-01-03] MEDS: PANTOPRAZOLE 40 MG TABLET (FP) PO SCH (09:03)
[2018-01-03] MEDS: LISINOPRIL 5 MG TABLET (FP) PO SCH (09:03)
[2018-01-03] MEDS: traMADol HCL 50 MG TABLET PO SCH (09:03)
[2018-01-03] MEDS: FOLIC ACID 1 MG TABLET (FP) PO SCH (09:03)
[2018-01-03] MEDS: TAMSULOSIN HCL 0.4 MG CAP.ER.24H (FP) PO SCH (09:03)
[2018-01-03] MEDS: FUROSEMIDE 20 MG TABLET (FP) PO SCH (09:03)
[2018-01-03] MEDS: FERROUS SO4 325 MG TABLET (FP) PO SCH (09:04)
[2018-01-03] MEDS: SODIUM CHLORIDE NASAL SPRAY 44 ML BOTTLE NS SCH (09:09)
[2018-01-03] MEDS: POLYETHYLENE GLYCOL 3350 119 GM BTL PO SCH (12:39)
--- NOTE | 2018-01-03 13:39 | DS ---
Physical Examination Vital Signs: Vital Signs Temperature 98.6 F 01/03/18 06:00 Pulse Rate 70 01/03/18 06:00 Respiratory Rate 18 01/03/18 06:00 Blood Pressure 113/72 01/03/18 06:00 O2 Sat by Pulse Oximetry (%) 96 01/02/18 16:00 Findings/Remarks: feels well no complains mi ruled out u/c - likely colonization cardiology f/u noted Constitutional: Yes: No Distress, Calm Eyes: Yes: Conjunctiva Clear Neck: Yes: Supple Cardiovascular: Yes: Pulse Irregular. No: Regular Rate and Rhythm Respiratory: Yes: Diminished Gastrointestinal: Yes: Soft Renal/: Yes: [place] Present Edema: No Neurological: Yes: Alert Labs: CBC, BMP 01/02/18 06:00 01/02/18 06:00 Discharge Summary Reason For Visit: CHEST PAIN Current Active Problems Chest pain (Acute) Hospital Course: admitted for cp. mi ruled out stable d/c on protonix meds reviewed u/c - contaminated -- d/c off abx urology f/u as out pt monitor [facility] d/c time 30 felice discussed with nursing staff also Condition: Fair - Instructions [facility]position: [facility] - Home Medications Comprehensive Discharge Medication List: Ambulatory Orders Folic Acid 1 mg PO DAILY 11/04/16 Acetaminophen [Tylenol .Regular Strength -] 650 mg PO Q6H 11/07/17 Tamsulosin HCl [Flomax] 0.8 mg PO DAILY 11/07/17 Atorvastatin Ca [Lipitor] 10 mg PO HS #30 tablet 11/25/17 Furosemide [Lasix -] 20 mg PO DAILY #30 tablet 11/25/17 Hydrocortisone 2.5% Topical Cr [Anusol-Hc -] 1 applic TP BID #1 tube 11/25/17 Lidocaine 2% Jelly [Xylocaine 2% Jelly] 1 applic TP Q24H PRN #1 applic 11/25/17 Polyethylene Glycol 3350 [Miralax 119 gm Btl -] 17 gm PO DAILY #1 bottle Sennosides [Senna -] 2 tab PO HS PRN #30 tablet 11/25/17 Melatonin 5 mg PO HS PRN tab 12/12/17 Simethicone [Mylicon -] 80 mg PO Q4H PRN tab.chew 12/12/17 Sodium Phosphate/Na Biph[place] [[place]leet Adult Rectal Enema -] 133 ml NC DAILY PRN enema 12/12/17 Ferrous Sulfate 325 mg PO BID 01/01/18 Lisinopril [Prinivil] 5 mg PO DAILY 01/01/18 Omeprazole 40 mg PO DAILY 01/01/18 Sodium Chloride/Aloe Vera [[place] Sal[place] Nasal Gel [place]] 22 ml NS BID 01/01/18 Warfarin Na [Coumadin -] 5 mg PO HS 01/01/18 traMADol HCL [Ultram -] 50 mg PO BID PRN #60 tablet MDD 2 01/03/18
[2018-01-03 16:50] VITALS: BP 117/73; PULSE 90; TEMP 98
--- NOTE | 2018-01-04 22:12 | EKG ---
Test Reason : Blood Pressure : / mmHG Vent. Rate : 070 BPM Atrial Rate : 070 BPM P-R Int : 196 ms QRS Dur : 124 ms QT Int : 410 ms P-R-T Axes : 036 013 100 degrees QTc Int : 442 ms SINUS RHYTHM WITH OCCASIONAL PREMATURE VENTRICULAR COMPLEXES NON-SPECIFIC INTRA-VENTRICULAR CONDUCTION DELAY NONSPECIFIC ST AND T WAVE ABNORMALITY ABNORMAL ECG WHEN COMPARED WITH ECG OF 01-JAN-2018 16:43, PREMATURE VENTRICULAR COMPLEXES ARE NOW PRESENT Confirmed by YAMINI WHITEHEAD MD ([id number]) on 01/04/2018 10:11:55 PM Referred By: Confirmed By:YAMINI WHITEHEAD MD
== END 2018-01-03 17:03 ==
LOC: JER 16:29 → JERBED 19:42 → J4W 01-02 11:26
PROVIDERS: ADMIT Internal Medicine; ATTEND Internal Medicine
DX: R07.9 Chest pain, unspecified (principal); I25.10 Atherosclerotic heart disease of native coronary artery without angina pectoris; Z95.1 Presence of aortocoronary bypass graft; Z95.5 Presence of coronary angioplasty implant and graft; I10 Essential (primary) hypertension; E78.5 Hyperlipidemia, unspecified; I73.9 Peripheral vascular disease, unspecified; I48.91 Unspecified atrial fibrillation; Z79.01 Long term (current) use of anticoagulants; N35.8 Other urethral stricture; Z85.46 Personal history of malignant neoplasm of prostate; Z87.440 Personal history of urinary (tract) infections; Z87.442 Personal history of urinary calculi; Z92.89 Personal history of other medical treatment; Z95.828 Presence of other vascular implants and grafts
CPT/HCPCS: 36415; 71045-TC-FY; 80048; 80053; 81003; 81015; 82550; 83735; 84100; 84484; 85025; 85610; 87086; 93005; 93010; 96374; 99285-25; G0378

== ENCOUNTER 2018-01-12 12:47 | Inpatient (IN) | payer OTHER, MEDICARE ==
[2018-01-12] MEDS ORDERED: SODIUM CHLORIDE 1,000 ML IV STA (13:20)
--- NOTE | 2018-01-12 13:20 | PDOC ---
History of Present Illness - General History Source: Patient Exam Limitations: No Limitations - History of Present Illness Initial Comments: 01/12/18 13:45 The patient is a 77 year old male with a significant past medical history of HTN , HLD, CAD (s/p stents), prostate CA, urethral stricture (catheter in place) who presents to the ER with difficulty ranging his legs today. The patient states he noticed significant swelling, redness, and warmth to the bilateral knees. Patient reports he needed assistance to ambulate today, which is new for him. Patient states he was discharged from rehab four days ago and was ambulating appropriately until today. Patient has not eaten today as he is experiencing mild nausea. Patient denies taking any of his medications today. 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 Patient has his catheter in place and draining urine appropriately. Patient has a fever of 100.1 here in the ER. The patient denies chest pain, shortness of breath, headache, and dizziness. Denies chills, vomit, diarrhea, and constipation. Allergies: strawberry, pepper, iohexol Past surgical history: stents Social history: No reported alcohol, drug, or cigarette use. <Cailin Maguire - Last Filed: 01/12/18 15:25> - General History Source: Patient Exam Limitations: No Limitations <Krystin Kuhn - Last Filed: 01/14/18 08:48> - General Chief Complaint: Lethargy Stated Complaint: CANT WALK Time Seen by Provider: 01/12/18 13:19 Past History <Cailin Maguire - Last Filed: 01/12/18 15:25> - Past Medical History Anemia: No Asthma: No Cancer: Yes (PROSTATE CANCER 2011) Cardiac Disorders: Yes (coronary artery disease, cardiac bypass 10 years ago, Afib) CVA: No COPD: No CHF: No Dementia: No Diabetes: No GI Disorders: No Disorders: Yes (STONES, chronic UTIs) HTN: Yes Hypercholesterolemia: Yes Kidney Stones: Yes Liver Disease: No Seizures: No Thyroid Disease: No - Surgical History Abdominal Surgery: No Appendectomy: No Cardiac Surgery: Yes (open heart, 2 stents) Cholecystectomy: No Lung Surgery: No Neurologic Surgery: No Orthopedic Surgery: No - Immunization History Immunization Up to Date: Yes - Suicide/Smoking/Psychosocial Hx Smoking Status: Yes Smoking History: Never smoked Have you smoked in the past 12 months: No Number of Cigarettes Smoked Daily: 0 If you are a former smoker, when did you quit?: 12 YRS AGO Information on smoking cessation initiated: No 'Breaking Loose' booklet given: 11/10/17 Hx Alcohol Use: No Drug/Substance Use Hx: No Substance Use Type: None Hx Substance Use Treatment: No <BamKrystin - Last Filed: 01/14/18 08:48> - Past Medical History Allergies/Adverse Reactions: Allergies Allergy/AdvReac Type Severity Reaction Status Date / Time strawberry Allergy Severe Swelling Verified 01/12/18 13:13 pepper (genus Capsicum) Allergy Unknown Verified 01/12/18 13:13 iohexol [From Omnipaque] Allergy Rash Verified 01/12/18 13:13 Home Medications: Ambulatory Orders Folic Acid 1 mg PO DAILY 11/04/16 Acetaminophen [Tylenol .Regular Strength -] 650 mg PO Q6H 11/07/17 Tamsulosin HCl [Flomax] 0.8 mg PO DAILY 11/07/17 Furosemide [Lasix -] 20 mg PO DAILY #30 tablet 11/25/17 Sennosides [Senna -] 2 tab PO HS PRN #30 tablet 11/25/17 Ferrous Sulfate 325 mg PO BID 01/01/18 Lisinopril [Prinivil] 5 mg PO DAILY 01/01/18 Omeprazole 40 mg PO DAILY 01/01/18 Warfarin Na [Coumadin -] 5 mg PO HS 01/01/18 traMADol HCL [Ultram -] 50 mg PO BID PRN #60 tablet MDD 2 01/03/18 Aspirin [ASA -] 81 mg PO DAILY 01/12/18 Atorvastatin Ca [Lipitor] 20 mg PO HS 01/12/18 Clopidogrel Bisulfate [Plavix -] 75 mg PO DAILY 01/12/18 Isosorbide Mononitrate [Isosorbide Mononitrate ER] 30 mg PO DAILY 01/12/18 Review of Systems - Review of Systems Able to Perform ROS?: Yes Comments:: 01/12/18 13:47 ADULT ROS GENERAL/CONSTITUTIONAL: No fever or chills. No weakness. HEAD, EYES, EARS, NOSE AND THROAT: No change in vision. No ear pain or discharge. No sore throat. CARDIOVASCULAR: No chest pain or shortness of breath. RESPIRATORY: No cough, wheezing, or hemoptysis. GASTROINTESTINAL: No nausea, vomiting, diarrhea or constipation. GENITOURINARY: No dysuria, frequency, or change in urination. MUSCULOSKELETAL: No neck or back pain. (+) Swelling, redness, and warmth to the bilateral knees. SKIN: No rash NEUROLOGIC: No headache, vertigo, loss of consciousness, or change in strength/ sensation. ENDOCRINE: No increased thirst. No abnormal weight change. HEMATOLOGIC/LYMPHATIC: No anemia, easy bleeding, or history of blood clots. ALLERGIC/IMMUNOLOGIC: No hives or skin allergy. <Cailin Maguire - Last Filed: 01/12/18 15:25> *Physical Exam - Vital Signs Last Vital Signs Temp Pulse Resp BP Pulse Ox 100.1 F H 95 H 16 141/70 100 01/12/18 13:00 01/12/18 13:00 01/12/18 13:00 01/12/18 13:01/12/18 13:00 - Physical Exam Comments: 01/12/18 15:25 ADULT PE GENERAL: The patient is in no acute distress. HEAD: Normal with no signs of trauma. EYES: PERRLA, EOMI, sclera anicteric, conjunctiva clear. ENT: Ears normal, nares patent, oropharynx clear without exudates. Moist mucous membranes. NECK: Normal range of motion, supple without lymphadenopathy, JVD, or masses. LUNGS: Breath sounds equal, clear to auscultation bilaterally. No wheezes, and no crackles. HEART:Regular rate and rhythm, normal S1 and S2 without murmur, rub or gallop. ABDOMEN: Soft, nontender, normoactive bowel sounds. No guarding, no rebound. No masses palpable. EXTREMITIES: (+) Right knee tender to palpation; unable to range his knee, unable to stand up on his own. NEUROLOGICAL: Cranial nerves II through XII grossly intact. Normal speech. No focal neurological deficits. MUSCULOSKELETAL: Back non-tender to palpation, no CVA tenderness SKIN: Warm, Dry, normal turgor, no rashes or lesions noted. <Cailin Maguire - Last Filed: 01/12/18 15:25> - Vital Signs Last Vital Signs Temp Pulse Resp BP Pulse Ox 100.1 F H 95 H 16 141/70 100 01/12/18 13:00 01/12/18 13:00 01/12/18 13:00 01/12/18 13:00 01/12/18 13:00 <BamKrystin - Last Filed: 01/14/18 08:48> ED Treatment Course - LABORATORY CBC & Chemistry Diagram: 01/12/18 14:10 01/12/18 14:10 <Nataly Maguiresy - Last Filed: 01/12/18 15:25> - LABORATORY CBC & Chemistry Diagram: 01/13/18 07:20 01/13/18 07:20 <Manan Kuhnole - Last Filed: 01/14/18 08:48> Medical Decision Making - Medical Decision Making Mr. Waddell is a 77-year-old male who presents emergency department with a complaint of generalized weakness. He was noted have a fever at triage. Patient has a history of recurrent UTIs, cough currently has a Bishop catheter in place. Of note, patient states that after leaving rehabilitation approximately one and half weeks ago he was in the toilet without difficulty. His main complaint is severe knee pain. His left knee has been hurting for the past week. He is most concerned about his right knee which is exquisitely tender to palpation. He is unable to range his knee. He is unable to stand up on his own. His had to hold him up today Different diagnosis includes but is not limited to: Recurrent urinary tract infection, chest x-ray, cellulitis,. I'm concerned about this patient's right knee particular which is very warm to palpation. Septic arthritis is currently on my differential. Patient given Tylenol, morphine for pain. Will reassess EKG: Sinus rhythm, rate of 91 bpm, axis normal, intervals are normal, there is no ST elevation or depression, T waves are upright 01/12/18 15:16 Laboratory Tests 01/12/18 14:10 WBC 15.7 H Hgb 11.2 L Hct 33.6 L Plt Count 330 01/12/18 16:01 Laboratory Tests 01/12/18 01/12/18 14:10 14:10 Sodium 131 L Potassium 4.4 Chloride 99 Carbon Dioxide 26 BUN 18 Creatinine 1.0 Random Glucose 127 H Creatine Kinase 45 CK-MB (CK-2) < 1.0 Troponin I 0.02 01/12/18 16:01 Laboratory Tests 01/12/18 14:10 INR 4.50 H* Would not tap knee given INR elevation Will Admit Will contact Ortho 01/12/18 16:[address] Goldberg Ceftriaxone ordered to treat UTI/possible septic arthritis Vanco ordered as well Please note: Pt refused to allow nurse to change bishop cathether prior to obtaining urine sample <Krystin Kuhn - Last Filed: 01/14/18 08:48> *DC/Admit/Observation/Transfer - Attestations Scribe Attestion: 01/12/18 13:48 Documentation prepared by Cailin Maguire, acting as biomedical electronics technician for Krystin Kuhn MD. <Cailin Maguire - Last Filed: 01/12/18 15:25> - Discharge Dispostion Decision to Admit order: Yes <Krystin Kuhn - Last Filed: 01/14/18 08:48> Diagnosis at time of Disposition: Supratherapeutic INR, Fever - Discharge Dispostion Condition at time of disposition: Stable
[2018-01-12] MEDS ORDERED: ACETAMINOPHEN 325 MG TABLET (FP) PO ONE (13:21)
[2018-01-12] MEDS ORDERED: morphine CARPU-JECT 4 MG/1 ML DISP.SYRIN IVPUSH ONE ×2 (13:32→16:34)
[2018-01-12] MEDS ORDERED: ACETAMINOPHEN 325 MG TABLET (FP) ONE ×2 (14:26→20:53)
[2018-01-12] MEDS ORDERED: MORPHINE SULFATE 2 MG/ML VIAL ONE (14:26)
[2018-01-12 14:34] LABS: BASO % 0.2 % (0-2.0); HEMATOCRIT 33.6 % (35.4-49); HEMOGLOBIN 11.2 GM/dL (11.7-16.9); LYMPH % 2.5 % (8-40); MCH 30.1 pg (25.7-33.7); MCHC 33.2 g/dl (32.0-35.9); MEAN CELL VOLUME 90.6 fl (80-96); MONO % 12.4 % (3.8-10.2); NEUT % 84.9 % (42.8-82.8); PLATELET COUNT 330 K/MM3 (134-434); RBC 3.71 M/mm3 (4.00-5.60); RDW 17.9 % (11.9-15.9); WHITE BLOOD COUNT 15.7 K/mm3 (4.0-10.0)
[2018-01-12 14:40] LABS: VENOUS PC02 40.7 mmHg (38-52); VENOUS PH 7.39 (7.32-7.42); VENOUS PO2 29.2 mmHg (28-48)
[2018-01-12 14:50] LABS: PROTHROMBIN TIME (PATIENT) 50.8 SEC (9.7-13.0)
[2018-01-12 14:53] LABS: ACTIVATED PTT 46.7 SECONDS (25.2-36.5)
[2018-01-12 15:16] LABS: ALBUMIN 3.4 g/dl (3.4-5.0); ALK PHOS 117 U/L (45-117); ANION GAP 5 MMOL/L (8-16); BILIRUBIN,TOTAL 0.6 mg/dL (0.2-1); BLOOD UREA NITROGEN 18 mg/dL (7-18); CALCIUM 8.9 mg/dL (8.5-10.1); CHLORIDE 99 mmol/L (98-107); CO2 26 mmol/L (21-32); GLUCOSE,RANDOM 127 mg/dL (74-106); POTASSIUM 4.4 mmol/L (3.5-5.1); SGOT/AST 12 U/L (15-37); SGPT/ALT 12 U/L (13-61); SODIUM 131 mmol/L (136-145); TOT PROT 7.1 g/dl (6.4-8.2)
[2018-01-12 15:47] LABS: INR 4.5 (0.83-1.09)
[2018-01-12] MEDS ORDERED: morphine SULFATE 4 MG/ML VIAL ONE (16:38)
[2018-01-12 16:44] LABS: URINE APPEARANCE CLOUDY; URINE BILIRUBIN NEGATIVE (<2.0 mg/dL); URINE COLOR AMBER; URINE GLUCOSE (UA) NEGATIVE (NEGATIVE); URINE KETONE NEGATIVE (NEGATIVE); URINE NITRITE NEGATIVE (NEGATIVE); URINE UROBILINOGEN NEGATIVE mg/dL (0.2-1.0)
[2018-01-12 16:47] LABS: URINE LEUK ESTERASE 3+ (NEGATIVE); URINE PROTEIN 2+ (NEGATIVE)
[2018-01-12 16:56] LABS: URINE BACTERIA FEW /hpf (NONE SEEN); URINE HYALINE CAST 4 /lpf; URINE MUCUS FEW
[2018-01-12] MEDS ORDERED: CEFTRIAXONE 1 GM in DEXTROSE 5%-WATER - 50 ML IVPB ONE (17:01)
[2018-01-12] MEDS ORDERED: VANCOMYCIN 1,250 MG in DEXTROSE 5%-WATER - 250 ML IVPB ONE (17:02)
[2018-01-12] MEDS ORDERED: CEFTRIAXONE 1 GM/50 ML BAG ONE (17:04)
[2018-01-12] MEDS: ACETAMINOPHEN 325 MG TABLET (FP) PO SCH (21:06)
[2018-01-12] MEDS: ATORVASTATIN CA 20 MG TABLET (FP) PO SCH (22:42)
[2018-01-12] MEDS: SENNOSIDES 8.6MG TABLET (FP) PO PRN (22:42)
[2018-01-12] MEDS: traMADol HCL 50 MG TABLET PO PRN (22:42)
[2018-01-12] MEDS: FERROUS SO4 325 MG TABLET (FP) PO SCH (22:42)
[2018-01-13] MEDS: traMADol HCL 50 MG TABLET PO PRN (02:38)
[2018-01-13] MEDS: ACETAMINOPHEN 325 MG TABLET (FP) PO SCH ×4 (05:38→23:31)
[2018-01-13 07:50] LABS: BASO % 0.5 % (0-2.0); EOS % 0.2 % (0-4.5); HEMATOCRIT 31.4 % (35.4-49); HEMOGLOBIN 10.3 GM/dL (11.7-16.9); LYMPH % 7.7 % (8-40); MCH 29.7 pg (25.7-33.7); MCHC 32.7 g/dl (32.0-35.9); MEAN PLT VOLUME 7.7 fl (7.5-11.1); NEUT % 71.6 % (42.8-82.8); PLATELET COUNT 293 K/MM3 (134-434); RBC 3.45 M/mm3 (4.00-5.60); RDW 17.9 % (11.9-15.9); WHITE BLOOD COUNT 10.5 K/mm3 (4.0-10.0)
[2018-01-13 08:06] LABS: PROTHROMBIN TIME (PATIENT) 48.3 SEC (9.7-13.0)
[2018-01-13 08:32] LABS: INR 4.27 (0.83-1.09)
[2018-01-13] MEDS: TAMSULOSIN HCL 0.4 MG CAP PO SCH (08:43)
[2018-01-13 08:53] LABS: ALBUMIN 2.7 g/dl (3.4-5.0); ALK PHOS 131 U/L (45-117); ANION GAP 5 MMOL/L (8-16); BILIRUBIN,TOTAL 0.6 mg/dL (0.2-1); BLOOD UREA NITROGEN 16 mg/dL (7-18); CALCIUM 8.4 mg/dL (8.5-10.1); CHLORIDE 102 mmol/L (98-107); CO2 27 mmol/L (21-32); CREATININE 0.8 mg/dL (0.55-1.3); GLUCOSE,RANDOM 106 mg/dL (74-106); POTASSIUM 4.6 mmol/L (3.5-5.1); SGOT/AST 15 U/L (15-37); SGPT/ALT 12 U/L (13-61); SODIUM 133 mmol/L (136-145); TOT PROT 6.2 g/dl (6.4-8.2)
--- NOTE | 2018-01-13 09:17 | CON.ORTH ---
Consult Reason for Consultation:: b/l knee pain - Past Medical History Cardio/Vascular: Yes: AFIB, CAD, CHF, HTN, Hyperlipdemia, Other (PVD, CAD, Coronary Bypass, CAD, Stent lower left leg) Gastrointestinal: Yes: GERD Musculoskeletal: Yes: Osteoarthritis (Chronic Lower back pain) - Past Surgical History Past Surgical History: Yes: CABG, Stent (stents, both cardiac and LLE) - Alcohol/Substance Use Hx Alcohol Use: No History of Substance Use: reports: None - Smoking History Smoking history: Never smoked Have you smoked in the past 12 months: No Aproximately how many cigarettes per day: 0 If you are a former smoker, when did you quit?: 12 YRS AGO - Social History Usual Living Arrangement: With Spouse ADL: Independent History of Recent Travel: No Home Medications - Allergies Allergies/Adverse Reactions: Allergies Allergy/AdvReac Type Severity Reaction Status Date / Time strawberry Allergy Severe Swelling Verified 01/12/18 13:13 pepper (genus Capsicum) Allergy Unknown Verified 01/12/18 13:13 iohexol [From Omnipaque] Allergy Rash Verified 01/12/18 13:13 - Home Medications Home Medications: Ambulatory Orders Folic Acid 1 mg PO DAILY 11/04/16 Acetaminophen [Tylenol .Regular Strength -] 650 mg PO Q6H 11/07/17 Tamsulosin HCl [Flomax] 0.8 mg PO DAILY 11/07/17 Furosemide [Lasix -] 20 mg PO DAILY #30 tablet 11/25/17 Sennosides [Senna -] 2 tab PO HS PRN #30 tablet 11/25/17 Ferrous Sulfate 325 mg PO BID 01/01/18 Lisinopril [Prinivil] 5 mg PO DAILY 01/01/18 Omeprazole 40 mg PO DAILY 01/01/18 Warfarin Na [Coumadin -] 5 mg PO HS 01/01/18 traMADol HCL [Ultram -] 50 mg PO BID PRN #60 tablet MDD 2 01/03/18 Aspirin [ASA -] 81 mg PO DAILY 01/12/18 Atorvastatin Ca [Lipitor] 20 mg PO HS 01/12/18 Clopidogrel Bisulfate [Plavix -] 75 mg PO DAILY 01/12/18 Isosorbide Mononitrate [Isosorbide Mononitrate ER] 30 mg PO DAILY 01/12/18 Family Disease History - Family Disease History Family Disease History: Heart Disease: Brother (hear disease), CA: Father ( hodgkins) Physical Exam for Ortho Vital Signs: Vital Signs Temperature 98.6 F 01/13/18 06:00 Pulse Rate 92 H 01/13/18 06:00 Respiratory Rate 18 01/13/18 06:00 Blood Pressure 106/63 01/13/18 06:00 O2 Sat by Pulse Oximetry (%) 97 01/12/18 19:28 Labs: CBC, BMP 01/13/18 07:20 01/13/18 07:20 INR, PTT INR 4.27 (0.83-1.09) H* 01/13/18 07:20 - Lower Extremity Knee: Yes: Left, Right, Other (Right knee- 2+ effusion, no erythema,+ ttp, rom 5 -70, calf soft, nt, nvi Left knee- mild swelling, no erythema, rom 0-90, calf soft, nt, nvi) Imaging - Results X-ray: Report Reviewed, Image Reviewed Assessment/Plan 77 year old male with a significant past medical history of HTN, HLD, CAD (s/p stents), prostate CA, urethral stricture (catheter in place) who presents to the ER with difficulty ranging his legs today. The patient states he noticed significant swelling, redness, and warmth to the bilateral knees. Patient reports he needed assistance to ambulate today, which is new for him. Patient states he was discharged from rehab four days ago and was ambulating appropriately until today. Pt is on coumadin. Denies h/o gout a/p- b/l knee djd- R>L, gout vs infection Consent obtained, time-out performed, under sterile technique 50 cc of inflammatory fluid was aspirated (appears gout like), aspiration tolerated well , pressure dressing applied fluid sent for analysis Uric acid, esr, crp ordered PT eval wbat ROM exercises f/u lab results d/w Dr. Valenzuela
[2018-01-13] MEDS ORDERED: DEXTROSE 5%-WATER - 50 ML IVPB ONE (09:27)
[2018-01-13] MEDS ORDERED: cefTRIAXone SODIUM 1 GM VIAL ONE (09:27)
[2018-01-13] MEDS: FUROSEMIDE 20 MG TABLET (FP) PO SCH (09:39)
[2018-01-13] MEDS: FOLIC ACID 1 MG TABLET (FP) PO SCH (09:39)
[2018-01-13] MEDS: ISOSORBIDE MONONITRATE 30 MG TAB.SR.24H (FP) PO SCH (09:39)
[2018-01-13] MEDS: CEFTRIAXONE 1 GM in DEXTROSE 5%-WATER - 50 ML IVPB SCH (09:39)
[2018-01-13] MEDS: LISINOPRIL 5 MG TABLET (FP) PO SCH (09:39)
[2018-01-13] MEDS: ASPIRIN 81 MG CHEWABLE TABLETS PO SCH (09:39)
[2018-01-13] MEDS: FERROUS SO4 325 MG TABLET (FP) PO SCH ×2 (09:39→22:15)
[2018-01-13] MEDS: PANTOPRAZOLE 40 MG TABLET (FP) PO SCH (09:39)
[2018-01-13] MEDS: CLOPIDOGREL BISULFATE 75 MG TABLET (FP) PO SCH (09:39)
--- NOTE | 2018-01-13 10:58 | EKG ---
Test Reason : Blood Pressure : / mmHG Vent. Rate : 091 BPM Atrial Rate : 091 BPM P-R Int : 192 ms QRS Dur : 110 ms QT Int : 358 ms P-R-T Axes : 008 005 122 degrees QTc Int : 440 ms NORMAL SINUS RHYTHM POSSIBLE LEFT ATRIAL ENLARGEMENT INCOMPLETE LEFT BUNDLE BRANCH BLOCK ABNORMAL ECG Confirmed by MD BRITTANI, LEDA ([id number]) on 01/13/2018 10:58:26 AM Referred By: Confirmed By:LEDA PETER MD
[2018-01-13 11:06] LABS: URIC ACID 6.6 mg/dL (2.6-7.2)
--- NOTE | 2018-01-13 12:34 | HP ---
Admitting History and Physical - Primary Care Physician PCP: Samantha Pham - Admission Chief Complaint: knees pain History of Present Illness: ER HISTORY - History of Present Illness Initial Comments: 01/12/18 13:45 The patient is a 77 year old male with a significant past medical history of HTN , HLD, CAD (s/p stents), prostate CA, urethral stricture (catheter in place) who presents to the ER with difficulty ranging his legs today. The patient states he noticed significant swelling, redness, and warmth to the bilateral knees. Patient reports he needed assistance to ambulate today, which is new for him. Patient states he was discharged from rehab four days ago and was ambulating appropriately until today. Patient has not eaten today as he is experiencing mild nausea. Patient denies taking any of his medications today. 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 Patient has his catheter in place and draining urine appropriately. Patient has a fever of 100.1 here in the ER. The patient denies chest pain, shortness of breath, headache, and dizziness. Denies chills, vomit, diarrhea, and constipation. Allergies: strawberry, pepper, iohexol Past surgical history: stents Social history: No reported alcohol, drug, or cigarette use. Pt examined by me on the floors Known to me from previous admission. C/o B/l knee pain , unable to ambulate due to pain . denies any injuries. Knee tapped today by OrthoFahad Bishop not changed since November. History Source: Patient Limitations to Obtaining History: No Limitations - Past Medical History Cardiovascular: Yes: AFIB, CAD, CHF, HTN, Hyperlipdemia, Other (PVD, CAD, Coronary Bypass, CAD, Stent lower left leg) Gastrointestinal: Yes: GERD Heme/Onc: Yes: Anemia Musculoskeletal: Yes: Osteoarthritis (Chronic Lower back pain) - Past Surgical History Past Surgical History: Yes: CABG, Stent (stents, both cardiac and LLE) - Smoking History Smoking history: Never smoked Have you smoked in the past 12 months: No Aproximately how many cigarettes per day: 0 If you are a former smoker, when did you quit?: 12 YRS AGO - Alcohol/Substance Use Hx Alcohol Use: No History of Substance Use: reports: None - Social History ADL: Independent History of Recent Travel: No Home Medications - Allergies Allergies/Adverse Reactions: Allergies Allergy/AdvReac Type Severity Reaction Status Date / Time strawberry Allergy Severe Swelling Verified 01/12/18 13:13 pepper (genus Capsicum) Allergy Unknown Verified 01/12/18 13:13 iohexol [From Omnipaque] Allergy Rash Verified 01/12/18 13:13 - Home Medications Home Medications: Ambulatory Orders Folic Acid 1 mg PO DAILY 11/04/16 Acetaminophen [Tylenol .Regular Strength -] 650 mg PO Q6H 11/07/17 Tamsulosin HCl [Flomax] 0.8 mg PO DAILY 11/07/17 Furosemide [Lasix -] 20 mg PO DAILY #30 tablet 11/25/17 Sennosides [Senna -] 2 tab PO HS PRN #30 tablet 11/25/17 Ferrous Sulfate 325 mg PO BID 01/01/18 Lisinopril [Prinivil] 5 mg PO DAILY 01/01/18 Omeprazole 40 mg PO DAILY 01/01/18 Warfarin Na [Coumadin -] 5 mg PO HS 01/01/18 traMADol HCL [Ultram -] 50 mg PO BID PRN #60 tablet MDD 2 01/03/18 Aspirin [ASA -] 81 mg PO DAILY 01/12/18 Atorvastatin Ca [Lipitor] 20 mg PO HS 01/12/18 Clopidogrel Bisulfate [Plavix -] 75 mg PO DAILY 01/12/18 Isosorbide Mononitrate [Isosorbide Mononitrate ER] 30 mg PO DAILY 01/12/18 Family Disease History - Family Disease History Family Disease History: Heart Disease: Brother (hear disease), CA: Father ( hodgkins) Review of Systems - Review of Systems Constitutional: reports: Weakness. denies: Chills, Fever Cardiovascular: denies: Chest Pain, Edema, Palpitations Musculoskeletal: reports: Joint Pain Physical Examination Vital Signs: Vital Signs Temperature 99.5 F 01/13/18 08:30 Pulse Rate 88 01/13/18 08:30 Respiratory Rate 18 01/13/18 08:30 Blood Pressure 134/65 01/13/18 08:30 O2 Sat by Pulse Oximetry (%) 95 01/13/18 09:00 Constitutional: Yes: No Distress, Calm Cardiovascular: Yes: Regular Rate and Rhythm, Murmur Respiratory: Yes: CTA Bilaterally Gastrointestinal: Yes: Normal Bowel Sounds, Soft, Abdomen, Obese. No: Tenderness Extremities: Yes: Other (right knee - andra wrapped) Edema: No Labs: CBC, BMP 01/13/18 07:20 01/13/18 07:20 Imaging - Results Chest X-ray: Image Reviewed X-ray: Report Reviewed EKG: Image Reviewed Problem List - Problems (1) Fever Code(s): R50.9 - FEVER, UNSPECIFIED (2) Supratherapeutic INR Code(s): R79.1 - ABNORMAL COAGULATION PROFILE (3) Anxiety Code(s): F41.9 - ANXIETY DISORDER, UNSPECIFIED (4) Atrial fibrillation Code(s): I48.91 - UNSPECIFIED ATRIAL FIBRILLATION (5) Chest pain Code(s): R07.9 - CHEST PAIN, UNSPECIFIED Qualifiers: Chest pain type: unspecified Qualified Code(s): R07.9 - Chest pain, unspecified (6) Bishop catheter in place Code(s): Z92.89 - PERSONAL HISTORY OF OTHER MEDICAL TREATMENT (7) HTN (hypertension) Code(s): I10 - ESSENTIAL (PRIMARY) HYPERTENSION (8) Hematuria Code(s): R31.9 - HEMATURIA, UNSPECIFIED Qualifiers: Hematuria type: gross Qualified Code(s): R31.0 - Gross hematuria (9) Hx of CABG Code(s): Z95.1 - PRESENCE OF AORTOCORONARY BYPASS GRAFT (10) Hyperlipidemia Code(s): E78.5 - HYPERLIPIDEMIA, UNSPECIFIED Assessment/Plan PLAN pain control s/p arthrocentesis of right knee check blood cultures and urine cultures eval for changing bishop IV antibiotics-- ID consulted Hold coumadin as INR is supratherapeutic continue with ASA and plavix as he had recent stent
[2018-01-13 13:30] LABS: SYNOVIAL FLUID SOURCE SYNOVIAL
[2018-01-13 13:31] LABS: SYNOVIAL FLUID RBC 7402 /mm3
--- NOTE | 2018-01-13 14:55 | CON.ID ---
Consult Consult Specialty:: infectious diseases Reason for Consultation:: sepsis,uti,bacteremia - History of Present Illness Chief Complaint: weakness,not feeling well,swelling of the knee joint History of Present Illness: 77 year old male with a significant past medical history of HTN, HLD, CAD (s/p stents), prostate CA, urethral stricture (catheter in place) admitted because of weakness and inability to stand and with swelling of the knee joint mostly left side. The patient states he noticed significant swelling, redness, and warmth to the bilateral knees. Patient reports he needed assistance to ambulate today, which is new for him. Patient states he was discharged from rehab four days ago and was ambulating appropriately until today. patient well known to me from previous admission worked up and found to have bacteremia. Patient was also evaluated by ortho team who tapped the left knee and all the cx have been send patient received broad spectrum abx The patient denies chest pain, shortness of breath, headache, and dizziness. Denies chills, vomit, diarrhea, and constipation. currently patient feels better, in the room - History Source History Provided By: Patient, Family Member Limitations to Obtaining History: No Limitations - Past Medical History Cardio/Vascular: Yes: AFIB, CAD, CHF, HTN, Hyperlipdemia, Other (PVD, CAD, Coronary Bypass, CAD, Stent lower left leg) Gastrointestinal: Yes: GERD Musculoskeletal: Yes: Osteoarthritis (Chronic Lower back pain) - Past Surgical History Past Surgical History: Yes: CABG, Stent (stents, both cardiac and LLE) - Alcohol/Substance Use Hx Alcohol Use: No History of Substance Use: reports: None - Smoking History Smoking history: Never smoked Have you smoked in the past 12 months: No Aproximately how many cigarettes per day: 0 If you are a former smoker, when did you quit?: 12 YRS AGO - Social History Usual Living Arrangement: With Spouse ADL: Independent History of Recent Travel: No Home Medications - Allergies Allergies/Adverse Reactions: Allergies Allergy/AdvReac Type Severity Reaction Status Date / Time strawberry Allergy Severe Swelling Verified 01/12/18 13:13 pepper (genus Capsicum) Allergy Unknown Verified 01/12/18 13:13 black pepper Allergy Verified 01/16/18 14:54 iohexol [From Omnipaque] Allergy Rash Verified 01/12/18 13:13 red pepper Allergy Uncoded 01/16/18 14:54 - Home Medications Home Medications: Ambulatory Orders Folic Acid 1 mg PO DAILY 11/04/16 Acetaminophen [Tylenol .Regular Strength -] 650 mg PO Q6H 11/07/17 Tamsulosin HCl [Flomax] 0.8 mg PO DAILY 11/07/17 Furosemide [Lasix -] 20 mg PO DAILY #30 tablet 11/25/17 Sennosides [Senna -] 2 tab PO HS PRN #30 tablet 11/25/17 Ferrous Sulfate 325 mg PO BID 01/01/18 Lisinopril [Prinivil] 5 mg PO DAILY 01/01/18 Omeprazole 40 mg PO DAILY 01/01/18 Warfarin Na [Coumadin -] 5 mg PO HS 01/01/18 traMADol HCL [Ultram -] 50 mg PO BID PRN #60 tablet MDD 2 01/03/18 Aspirin [ASA -] 81 mg PO DAILY 01/12/18 Atorvastatin Ca [Lipitor] 20 mg PO HS 01/12/18 Clopidogrel Bisulfate [Plavix -] 75 mg PO DAILY 01/12/18 Isosorbide Mononitrate [Isosorbide Mononitrate ER] 30 mg PO DAILY 01/12/18 Family Disease History - Family Disease History Family Disease History: Heart Disease: Brother (hear disease), CA: Father ( hodgkins) Review of Systems - Review of Systems Constitutional: reports: Fever, Weakness Eyes: reports: No Symptoms HENT: reports: No Symptoms Neck: reports: No Symptoms Respiratory: reports: No Symptoms Gastrointestinal: reports: No Symptoms Genitourinary: reports: No Symptoms Musculoskeletal: reports: Joint Pain, Joint Swelling Integumentary: reports: No Symptoms Neurological: reports: No Symptoms Hematology/Lymphatic: reports: No Symptoms Psychiatric: reports: No Symptoms Physical Exam Vital Signs: Vital Signs Temperature 98.5 F 01/13/18 13:36 Pulse Rate 88 01/13/18 13:36 Respiratory Rate 18 01/13/18 13:36 Blood Pressure 95/61 01/13/18 13:36 O2 Sat by Pulse Oximetry (%) 95 01/13/18 09:00 Constitutional: Yes: Well Nourished, No Distress, Calm, Other (weakness) Eyes: Yes: Conjunctiva Clear HENT: Yes: Atraumatic, Normocephalic Neck: Yes: Supple, Trachea Midline Cardiovascular: Yes: Regular Rate and Rhythm Respiratory: Yes: Regular, CTA Bilaterally Gastrointestinal: Yes: Normal Bowel Sounds, Soft Renal/: Yes: [place] Present Musculoskeletal: Yes: Joint Swelling, Other (tapped left knee joint) Edema: LLE: 1+, RLE: 1+ Neurological: Yes: Alert, Oriented Psychiatric: Yes: Alert, Oriented Labs: CBC, BMP 01/13/18 07:20 01/13/18 07:20 Imaging - Results Chest X-ray: Report Reviewed, Image Reviewed X-ray: Report Reviewed, Image Reviewed (all xray images seen and report reviwed) Assessment/Plan patient with multiple medical problems coming with weakness and knee joint swelling Problem List - Problems (1) Fever Code(s): R50.9 - FEVER, UNSPECIFIED (2) Supratherapeutic INR Code(s): R79.1 - ABNORMAL COAGULATION PROFILE (3) Anxiety Code(s): F41.9 - ANXIETY DISORDER, UNSPECIFIED (4) Atrial fibrillation Code(s): I48.91 - UNSPECIFIED ATRIAL FIBRILLATION (5) Chest pain Code(s): R07.9 - CHEST PAIN, UNSPECIFIED Qualifiers: Chest pain type: unspecified Qualified Code(s): R07.9 - Chest pain, unspecified (6) Banegas catheter in place Code(s): Z92.89 - PERSONAL HISTORY OF OTHER MEDICAL TREATMENT (7) HTN (hypertension) Code(s): I10 - ESSENTIAL (PRIMARY) HYPERTENSION (8) Hematuria Code(s): R31.9 - HEMATURIA, UNSPECIFIED Qualifiers: Hematuria type: gross Qualified Code(s): R31.0 - Gross hematuria (9) Hx of CABG Code(s): Z95.1 - PRESENCE OF AORTOCORONARY BYPASS GRAFT (10) Hyperlipidemia Code(s): E78.5 - HYPERLIPIDEMIA, UNSPECIFIED patient s/p arthrocentesis Assessment/Plan await for fluid cx result await for identification of the bacteria await for urine result continue broad spectrum abx close watch rest as per the team
[2018-01-13 15:07] LABS: CRYSTALS,SYNOVIAL FLUID NEGATIVE; SYNOVIAL FLUID MONOCYTES 7 %; SYNOVIAL FLUID NEUTROPHILS 93 %
[2018-01-13] MEDS: VANCOMYCIN 1,250 MG in DEXTROSE 5%-WATER - 250 ML IVPB SCH (17:47)
[2018-01-13] MEDS: SODIUM CHLORIDE NASAL SPRAY 44 ML BOTTLE NS PRN ×2 (17:47→23:36)
[2018-01-13] MEDS: LIDOCAINE HCL 2% JELLY (5 ML/TUBE) TP PRN ×2 (17:47→23:36)
[2018-01-13] MEDS ORDERED: PT OWN MED DRAWER 7, Y5N ONE (17:56)
[2018-01-13] MEDS: ATORVASTATIN CA 20 MG TABLET (FP) PO SCH (22:15)
[2018-01-14] MEDS: SODIUM CHLORIDE NASAL SPRAY 44 ML BOTTLE NS PRN (06:51)
[2018-01-14] MEDS: LIDOCAINE HCL 2% JELLY (5 ML/TUBE) TP PRN (06:52)
[2018-01-14] MEDS: ACETAMINOPHEN 325 MG TABLET (FP) PO SCH ×4 (06:53→23:25)
[2018-01-14] MEDS ORDERED: INSULIN (NOVOLOG) ASPART 100 UNITS/ML 10ML VIAL ONE (07:46)
[2018-01-14 08:33] LABS: INR 1.96 (0.83-1.09); PROTHROMBIN TIME (PATIENT) 22.1 SEC (9.7-13.0)
[2018-01-14] MEDS ORDERED: DEXTROSE 5%-WATER - 50 ML IVPB ONE ×3 (11:00→18:24)
[2018-01-14] MEDS ORDERED: cefTRIAXone SODIUM 1 GM VIAL ONE (11:00)
[2018-01-14] MEDS: FUROSEMIDE 20 MG TABLET (FP) PO SCH (11:08)
[2018-01-14] MEDS: TAMSULOSIN HCL 0.4 MG CAP PO SCH (11:08)
[2018-01-14] MEDS: FERROUS SO4 325 MG TABLET (FP) PO SCH ×2 (11:08→21:40)
[2018-01-14] MEDS: ISOSORBIDE MONONITRATE 30 MG TAB.SR.24H (FP) PO SCH (11:08)
[2018-01-14] MEDS: PANTOPRAZOLE 40 MG TABLET (FP) PO SCH (11:09)
[2018-01-14] MEDS: CEFTRIAXONE 1 GM in DEXTROSE 5%-WATER - 50 ML IVPB SCH (11:09)
[2018-01-14] MEDS: FOLIC ACID 1 MG TABLET (FP) PO SCH (11:09)
[2018-01-14] MEDS: LISINOPRIL 5 MG TABLET (FP) PO SCH (11:09)
--- NOTE | 2018-01-14 11:19 | PN ---
Progress Note (short form) - Note Progress Note: Ortho Pt seen and examined s/p right knee aspiration- feeling better- MRSA + BC Laboratory Tests 01/13/18 01/13/18 07:20 09:00 WBC 10.5 H Hgb 10.3 L Hct 31.4 L Plt Count 293 Synovial Source Synovial Synovial WBC 27295 Synovial RBC 7402 Synovial Neutrophils 93 Synovial Monocytes 7 Synovial Crystals Negative decr swelling, no erythema, incr rom, nvi a/p f/u cultures- neg to date abx as per ID PT eval wbat will follow d/w Dr. Clemens
[2018-01-14] MEDS: CLOPIDOGREL BISULFATE 75 MG TABLET (FP) PO SCH (11:40)
[2018-01-14] MEDS: ASPIRIN 81 MG CHEWABLE TABLETS PO SCH (11:41)
--- NOTE | 2018-01-14 12:54 | PN ---
Progress Note (short form) - Note Progress Note: Pt examined has back pain -- has been having severe back pain for some time. knee pain is less no SOB , chest pain Vital Signs - 24 hr 01/13/18 01/13/18 01/13/18 13:36 18:47 21:00 Temperature 98.5 F 98.6 F Pulse Rate 88 87 87 Respiratory 18 18 20 Rate Blood Pressure 95/61 100/59 L 100/62 O2 Sat by Pulse 97 Oximetry (%) 01/14/18 01/14/18 06:00 10:00 Temperature 98.4 F 98.6 F Pulse Rate 87 78 Respiratory 20 20 Rate Blood Pressure 120/57 L 110/68 O2 Sat by Pulse Oximetry (%) Current Medications Generic Name Dose Route Start Last Admin Trade Name Freq PRN Reason Stop Dose Admin Acetaminophen 650 mg 01/12/18 20:45 01/14/18 06:53 Tylenol - PO 650 mg Q6HPO JORJE Administration Aspirin 81 mg 01/13/18 10:00 01/14/18 11:41 Asa - PO 81 mg DAILY JORJE Administration Atorvastatin Calcium 20 mg 01/12/18 22:00 01/13/18 22:15 Lipitor - PO 20 mg HS JORJE Administration Clopidogrel Bisulfate 75 mg 01/13/18 10:00 01/14/18 11:40 Plavix - PO 75 mg DAILY JORJE Administration Ferrous Sulfate 325 mg 01/12/18 22:00 01/14/18 11:08 Feosol - PO 325 mg BID JORJE Administration Folic Acid 1 mg 01/13/18 10:00 01/14/18 11:09 Folic Acid - PO 1 mg DAILY JORJE Administration Furosemide 20 mg 01/13/18 10:00 01/14/18 11:08 Lasix - PO 20 mg DAILY JORJE Administration Ceftriaxone Sodium 1 gm/ 50 mls @ 100 mls/hr 01/13/18 10:00 01/14/18 11:09 Dextrose IVPB 100 mls/hr DAILY JORJE Administration Protocol Vancomycin HCl 1,250 mg/ 250 mls @ 250 mls/2 hr 01/13/18 18:00 01/13/18 17:47 Dextrose IVPB 250 mls/2 hr DAILY@1800 JORJE Administration Protocol Isosorbide Mononitrate 30 mg 01/13/18 10:00 01/14/18 11:08 Imdur - PO 30 mg DAILY JORJE Administration Lidocaine HCl 1 applic 01/13/18 11:44 01/14/18 06:52 Xylocaine 2% Jelly TP 1 applic BID PRN Administration MODERATE PAIN Lisinopril 5 mg 01/13/18 10:00 01/14/18 11:09 Prinivil PO 5 mg DAILY JORJE Administration Pantoprazole Sodium 40 mg 01/13/18 10:00 01/14/18 11:09 Protonix - PO 40 mg DAILY JORJE Administration Senna 2 tab 01/12/18 20:07 01/12/18 22:42 Senna - PO 2 tab HS PRN Administration CONSTIPATION Sodium Chloride 2 spray 01/13/18 11:46 01/14/18 06:51 [place] Nasal [place] - NS 2 spray BID PRN Administration NASAL CONGESTION Tamsulosin HCl 0.8 mg 01/13/18 08:30 01/14/18 11:08 Flomax - PO 0.8 mg DAILY@0830 JORJE Administration Tramadol HCl 50 mg 01/12/18 20:07 01/13/18 02:38 Ultram - PO 50 mg Q12H PRN Administration BACK PAIN Laboratory Results - last 24 hr 01/13/18 01/14/18 09:00 06:20 PT with INR 22.10 H INR 1.96 H Synovial Source Synovial Synovial WBC 74297 Synovial RBC 7402 Synovial Neutrophils 93 Synovial Monocytes 7 Synovial Crystals Negative S s2 irregular Lungs decreased Abd- soft, NT No edema PLAN MRSA - check echo - xray of spine - knee aspiration-- no growth, crystals negative -- pain control -- started vanco -- continue with meds - urine clearing up - may resume coumadin Problem List - Problems (1) Fever Code(s): R50.9 - FEVER, UNSPECIFIED (2) Supratherapeutic INR Code(s): R79.1 - ABNORMAL COAGULATION PROFILE (3) Anxiety Code(s): F41.9 - ANXIETY DISORDER, UNSPECIFIED (4) Atrial fibrillation Code(s): I48.91 - UNSPECIFIED ATRIAL FIBRILLATION (5) Chest pain Code(s): R07.9 - CHEST PAIN, UNSPECIFIED Qualifiers: Chest pain type: unspecified Qualified Code(s): R07.9 - Chest pain, unspecified (6) Banegas catheter in place Code(s): Z92.89 - PERSONAL HISTORY OF OTHER MEDICAL TREATMENT (7) HTN (hypertension) Code(s): I10 - ESSENTIAL (PRIMARY) HYPERTENSION (8) Hematuria Code(s): R31.9 - HEMATURIA, UNSPECIFIED Qualifiers: Hematuria type: gross Qualified Code(s): R31.0 - Gross hematuria (9) Hx of CABG Code(s): Z95.1 - PRESENCE OF AORTOCORONARY BYPASS GRAFT (10) Hyperlipidemia Code(s): E78.5 - HYPERLIPIDEMIA, UNSPECIFIED (11) MRSA bacteremia Code(s): R78.81 - BACTEREMIA (12) UTI (urinary tract infection) Code(s): N39.0 - URINARY TRACT INFECTION, SITE NOT SPECIFIED
[2018-01-14] MEDS: traMADol HCL 50 MG TABLET PO PRN (13:50)
--- NOTE | 2018-01-14 13:59 | PN ---
Progress Note, Physician History of Present Illness: feeling better still with weakness no complaints - Current Medication List Current Medications: Active Medications Acetaminophen (Tylenol -) 650 mg PO Q6HPO [facility] Last Admin: 01/14/18 13:51 Dose: Not Given Aspirin (Asa -) 81 mg PO DAILY [facility] Last Admin: 01/14/18 11:41 Dose: 81 mg Atorvastatin Calcium (Lipitor -) 20 mg PO HS [facility] Last Admin: 01/13/18 22:15 Dose: 20 mg Clopidogrel Bisulfate (Plavix -) 75 mg PO DAILY [facility] Last Admin: 01/14/18 11:40 Dose: 75 mg Ferrous Sulfate (Feosol -) 325 mg PO BID [facility] Last Admin: 01/14/18 11:08 Dose: 325 mg Folic Acid (Folic Acid -) 1 mg PO DAILY [facility] Last Admin: 01/14/18 11:09 Dose: 1 mg Furosemide (Lasix -) 20 mg PO DAILY [facility] Last Admin: 01/14/18 11:08 Dose: 20 mg Vancomycin HCl 1,250 mg/ (Dextrose) 250 mls @ 250 mls/2 hr IVPB DAILY@1800 [facility] ; Protocol Last Admin: 01/13/18 17:47 Dose: 250 mls/2 hr Isosorbide Mononitrate (Imdur -) 30 mg PO DAILY [facility] Last Admin: 01/14/18 11:08 Dose: 30 mg Lidocaine HCl (Xylocaine 2% Jelly) 1 applic TP BID PRN PRN Reason: MODERATE PAIN Last Admin: 01/14/18 06:52 Dose: 1 applic Lisinopril (Prinivil) 5 mg PO DAILY [facility] Last Admin: 01/14/18 11:09 Dose: 5 mg Pantoprazole Sodium (Protonix -) 40 mg PO DAILY [facility] Last Admin: 01/14/18 11:09 Dose: 40 mg Senna (Senna -) 2 tab PO HS PRN PRN Reason: CONSTIPATION Last Admin: 01/12/18 22:42 Dose: 2 tab Sodium Chloride ([place] Prim Nasal Prim -) 2 spray NS BID PRN PRN Reason: NASAL CONGESTION Last Admin: 01/14/18 06:51 Dose: 2 spray Tamsulosin HCl (Flomax -) 0.8 mg PO DAILY@0830 [facility] Last Admin: 01/14/18 11:08 Dose: 0.8 mg Tramadol HCl (Ultram -) 50 mg PO Q12H PRN PRN Reason: BACK PAIN Last Admin: 01/14/18 13:50 Dose: 50 mg Warfarin Sodium (Coumadin -) 3 mg PO DAILY@1800 JORJE - Objective Vital Signs: Vital Signs Temperature 98.6 F 01/14/18 10:00 Pulse Rate 78 01/14/18 10:00 Respiratory Rate 20 01/14/18 10:00 Blood Pressure 110/68 01/14/18 10:00 O2 Sat by Pulse Oximetry (%) 97 01/13/18 21:00 Constitutional: Yes: No Distress, Calm HENT: Yes: Atraumatic Neck: Yes: Supple, Trachea Midline Cardiovascular: Yes: S1, S2 Respiratory: Yes: Regular, CTA Bilaterally Gastrointestinal: Yes: Normal Bowel Sounds, Soft Genitourinary: Yes: [place] Present Musculoskeletal: Yes: Other Extremities: Yes: Other Labs: CBC, BMP 01/13/18 07:20 01/13/18 07:20 INR, PTT INR 1.96 (0.83-1.09) H 01/14/18 06:20 Assessment/Plan patient with multiple medical problems coming with weakness and knee joint swelling Problem List - Problems (1) Fever Code(s): R50.9 - FEVER, UNSPECIFIED (2) Supratherapeutic INR Code(s): R79.1 - ABNORMAL COAGULATION PROFILE (3) Anxiety Code(s): F41.9 - ANXIETY DISORDER, UNSPECIFIED (4) Atrial fibrillation Code(s): I48.91 - UNSPECIFIED ATRIAL FIBRILLATION (5) Chest pain Code(s): R07.9 - CHEST PAIN, UNSPECIFIED Qualifiers: Chest pain type: unspecified Qualified Code(s): R07.9 - Chest pain, unspecified (6) Ban[place] catheter in place Code(s): Z92.89 - PERSONAL HISTORY OF OTHER MEDICAL TREATMENT (7) HTN (hypertension) Code(s): I10 - ESSENTIAL (PRIMARY) HYPERTENSION (8) Hematuria Code(s): R31.9 - HEMATURIA, UNSPECIFIED Qualifiers: Hematuria type: gross Qualified Code(s): R31.0 - Gross hematuria (9) Hx of CABG Code(s): Z95.1 - PRESENCE OF AORTOCORONARY BYPASS GRAFT (10) Hyperlipidemia Code(s): E78.5 - HYPERLIPIDEMIA, UNSPECIFIED patient s/p arthrocentesis Assessment/Plan cx result noted patient to get TTE continue abx will need shelter abx await for identification of urinary organisms cardio on case rest as per the team
--- NOTE | 2018-01-14 14:09 | CON.CARD ---
Consult - History of Present Illness History of Present Illness: he patient is a 77 year old male with a significant past medical history of HTN , HLD, CAD (s/p stents), prostate CA, urethral stricture (catheter in place) who presents to the ER with difficulty ranging his legs today. The patient states he noticed significant swelling, redness, and warmth to the bilateral knees. Patient reports he needed assistance to ambulate today, which is new for him. Patient states he was discharged from rehab four days ago and was ambulating appropriately until today. Patient has not eaten today as he is experiencing mild nausea. Patient denies taking any of his medications today. 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 Patient has his catheter in place and draining urine appropriately. Patient has a fever of 100.1 here in the ER. The patient denies chest pain, shortness of breath, headache, and dizziness. Denies chills, vomit, diarrhea, and constipation. Allergies: strawberry, pepper, iohexol Past surgical history: stents Social history: No reported alcohol, drug, or cigarette use. H cabg lithotripsy prostate seeds Ongoing medical problems Afib diagnosed at the hospital during SFA PLATFORM MAN 08/2015 and has been on coumadin since then 2015 CAD Coronary artery bypass graft SANTIAGO of left SFA August 11, 2014 Dr. Blanton SANTIAGO of left PDA July 07, 2014 Dr. Blanton dizziness Hyperlipidemia Hypertension Negative MIBI stress test 2013 [place] [facility] NSVT Pauses PCI SANTIAGO of p LCx March 30, 2015 Dr. Blanton PCI LCx 08/17/12 [facility] PCI LCx 07/07/14 Dr. Blanton PLATFORM MAN/stent right SFA 526/16 DR BLANTON Right SFA 100 occlusion July 07, 2014 Dr. Blanton s/p PLATFORM MAN drug elluting balloon L SFA 2015 s/p PLATFORM MAN left SFA 09/25/17 for left foot ulcer s/p urethral stricture after cystoscopy and urethrotomy the patient went into septic shock and was treated with antibiotics and was stabilized. October 2017 - Past Medical History Cardio/Vascular: Yes: AFIB, CAD, CHF, HTN, Hyperlipdemia, Other (PVD, CAD, Coronary Bypass, CAD, Stent lower left leg) Gastrointestinal: Yes: GERD Musculoskeletal: Yes: Osteoarthritis (Chronic Lower back pain) - Past Surgical History Past Surgical History: Yes: CABG, Stent (stents, both cardiac and LLE) - Alcohol/Substance Use Hx Alcohol Use: No History of Substance Use: reports: None - Smoking History Smoking history: Never smoked Have you smoked in the past 12 months: No Aproximately how many cigarettes per day: 0 If you are a former smoker, when did you quit?: 12 YRS AGO - Social History Usual Living Arrangement: With Spouse ADL: Independent History of Recent Travel: No Home Medications - Allergies Allergies/Adverse Reactions: Allergies Allergy/AdvReac Type Severity Reaction Status Date / Time strawberry Allergy Severe Swelling Verified 01/12/18 13:13 pepper (genus Capsicum) Allergy Unknown Verified 01/12/18 13:13 iohexol [From Omnipaque] Allergy Rash Verified 01/12/18 13:13 - Home Medications Home Medications: Ambulatory Orders Folic Acid 1 mg PO DAILY 11/04/16 Acetaminophen [Tylenol .Regular Strength -] 650 mg PO Q6H 11/07/17 Tamsulosin HCl [Flomax] 0.8 mg PO DAILY 11/07/17 Furosemide [Lasix -] 20 mg PO DAILY #30 tablet 11/25/17 Sennosides [Senna -] 2 tab PO HS PRN #30 tablet 11/25/17 Ferrous Sulfate 325 mg PO BID 01/01/18 Lisinopril [Prinivil] 5 mg PO DAILY 01/01/18 Omeprazole 40 mg PO DAILY 01/01/18 Warfarin Na [Coumadin -] 5 mg PO HS 01/01/18 traMADol HCL [Ultram -] 50 mg PO BID PRN #60 tablet MDD 2 01/03/18 Aspirin [ASA -] 81 mg PO DAILY 01/12/18 Atorvastatin Ca [Lipitor] 20 mg PO HS 01/12/18 Clopidogrel Bisulfate [Plavix -] 75 mg PO DAILY 01/12/18 Isosorbide Mononitrate [Isosorbide Mononitrate ER] 30 mg PO DAILY 01/12/18 Family Disease History - Family Disease History Family Disease History: Heart Disease: Brother (hear disease), CA: Father ( hodgkins) Review of Systems - Review of Systems Constitutional: reports: No Symptoms Eyes: reports: No Symptoms HENT: reports: No Symptoms Neck: reports: No Symptoms Cardiovascular: reports: No Symptoms Gastrointestinal: reports: No Symptoms Genitourinary: reports: No Symptoms Breasts: reports: No Symptoms Reported Musculoskeletal: reports: No Symptoms Integumentary: reports: No Symptoms Neurological: reports: No Symptoms Endocrine: reports: No Symptoms Hematology/Lymphatic: reports: No Symptoms Psychiatric: reports: No Symptoms Vital Signs: Vital Signs Temperature 98.6 F 01/14/18 10:00 Pulse Rate 78 01/14/18 10:00 Respiratory Rate 20 01/14/18 10:00 Blood Pressure 110/68 01/14/18 10:00 O2 Sat by Pulse Oximetry (%) 97 01/13/18 21:00 Constitutional: Yes: Well Nourished, No Distress, Calm Eyes: Yes: WNL, Conjunctiva Clear, EOM Intact HENT: Yes: WNL, Atraumatic, Normocephalic Neck: Yes: WNL, Supple, Trachea Midline Respiratory: Yes: WNL, Regular, CTA Bilaterally Gastrointestinal: Yes: WNL, Normal Bowel Sounds Renal/: Yes: WNL Cardiovascular: Yes: WNL, Regular Rate and Rhythm Heart Sounds: Yes: S1, S2 Musculoskeletal: Yes: WNL Extremities: Yes: WNL Integumentary: Yes: WNL Neurological: Yes: WNL, Alert, Oriented ...Motor Strength: WNL Psychiatric: Yes: WNL, Alert, Oriented - Other Data Labs, Other Data: CBC, BMP 01/13/18 07:20 01/13/18 07:20 INR, PTT INR 1.96 (0.83-1.09) H 01/14/18 06:20 Laboratory Tests 01/12/18 01/12/18 01/12/18 14:10 14:10 14:10 WBC 15.7 H RBC 3.71 L Hgb 11.2 L Hct 33.6 L MCV 90.6 MCH 30.1 MCHC 33.2 RDW 17.9 H Plt Count 330 MPV 8.0 D Absolute Neuts (auto) 13.4 H Neutrophils % 84.9 H D Lymphocytes % 2.5 L D Monocytes % 12.4 H Eosinophils % 0.0 D Basophils % 0.2 Nucleated RBC % 0 ESR PT with INR 50.80 H INR 4.50 H* PTT (Actin FS) 46.7 H VBG pH POC VBG pCO2 POC VBG pO2 Mixed VBG HCO3 Sodium 131 L Potassium 4.4 Chloride 99 Carbon Dioxide 26 Anion Gap 5 L BUN 18 Creatinine 1.0 Creat Clearance w eGFR > 60 Random Glucose 127 H Lactic Acid Uric Acid Calcium 8.9 Total Bilirubin 0.6 AST 12 L ALT 12 L Alkaline Phosphatase 117 Creatine Kinase 45 CK-MB (CK-2) < 1.0 Troponin I C-Reactive Protein Total Protein 7.1 Albumin 3.4 Urine Color Urine Appearance Urine pH Ur Specific Hugo Urine Protein Urine Glucose (UA) Urine Ketones Urine Blood Urine Nitrite Urine Bilirubin Urine Urobilinogen Ur Leukocyte Esterase Urine WBC (Auto) Urine RBC (Auto) Urine Bacteria Hyaline Casts Urine Mucus Synovial Source Synovial WBC Synovial RBC Synovial Neutrophils Synovial Monocytes Synovial Crystals Blood Type Antibody Screen 01/12/18 01/12/18 01/12/18 14:10 14:10 14:10 WBC RBC Hgb Hct MCV MCH MCHC RDW Plt Count MPV Absolute Neuts (auto) Neutrophils % Lymphocytes % Monocytes % Eosinophils % Basophils % Nucleated RBC % ESR PT with INR INR PTT (Actin FS) VBG pH POC VBG pCO2 POC VBG pO2 Mixed VBG HCO3 Sodium Potassium Chloride Carbon Dioxide Anion Gap BUN Creatinine Creat Clearance w eGFR Random Glucose Lactic Acid 1.6 Uric Acid Calcium Total Bilirubin AST ALT Alkaline Phosphatase Creatine Kinase CK-MB (CK-2) Troponin I 0.02 C-Reactive Protein Total Protein Albumin Urine Color Urine Appearance Urine pH Ur Specific Hugo Urine Protein Urine Glucose (UA) Urine Ketones Urine Blood Urine Nitrite Urine Bilirubin Urine Urobilinogen Ur Leukocyte Esterase Urine WBC (Auto) Urine RBC (Auto) Urine Bacteria Hyaline Casts Urine Mucus Synovial Source Synovial WBC Synovial RBC Synovial Neutrophils Synovial Monocytes Synovial Crystals Blood Type O NEGATIVE Antibody Screen Negative 01/12/18 01/12/18 01/13/18 14:32 16:14 07:20 WBC 10.5 H RBC 3.45 L Hgb 10.3 L Hct 31.4 L MCV 91.0 MCH 29.7 MCHC 32.7 RDW 17.9 H Plt Count 293 MPV 7.7 Absolute Neuts (auto) 7.5 Neutrophils % 71.6 Lymphocytes % 7.7 L D Monocytes % 20.0 H Eosinophils % 0.2 D Basophils % 0.5 Nucleated RBC % 0 ESR PT with INR INR PTT (Actin FS) VBG pH 7.39 POC VBG pCO2 40.7 POC VBG pO2 29.2 Mixed VBG HCO3 24.0 Sodium Potassium Chloride Carbon Dioxide Anion Gap BUN Creatinine Creat Clearance w eGFR Random Glucose Lactic Acid Uric Acid Calcium Total Bilirubin AST ALT Alkaline Phosphatase Creatine Kinase CK-MB (CK-2) Troponin I C-Reactive Protein Total Protein Albumin Urine Color Isabel Urine Appearance Cloudy Urine pH 7.0 D Ur Specific Hugo 1.020 Urine Protein 2+ H Urine Glucose (UA) Negative Urine Ketones Negative Urine Blood 2+ H Urine Nitrite Negative Urine Bilirubin Negative Urine Urobilinogen Negative Ur Leukocyte Esterase 3+ H Urine WBC (Auto) 630 Urine RBC (Auto) 81 Urine Bacteria Few Hyaline Casts 4 Urine Mucus Few Synovial Source Synovial WBC Synovial RBC Synovial Neutrophils Synovial Monocytes Synovial Crystals Blood Type Antibody Screen 01/13/18 01/13/18 01/13/18 07:20 07:20 07:20 WBC RBC Hgb Hct MCV MCH MCHC RDW Plt Count MPV Absolute Neuts (auto) Neutrophils % Lymphocytes % Monocytes % Eosinophils % Basophils % Nucleated RBC % ESR PT with INR 48.30 H INR 4.27 H* PTT (Actin FS) VBG pH POC VBG pCO2 POC VBG pO2 Mixed VBG HCO3 Sodium 133 L Potassium 4.6 Chloride 102 Carbon Dioxide 27 Anion Gap 5 L BUN 16 Creatinine 0.8 Creat Clearance w eGFR > 60 Random Glucose 106 Lactic Acid Uric Acid 6.6 Cancelled Calcium 8.4 L Total Bilirubin 0.6 AST 15 ALT 12 L Alkaline Phosphatase 131 H Creatine Kinase CK-MB (CK-2) Troponin I C-Reactive Protein 20.6 H Cancelled Total Protein 6.2 L Albumin 2.7 L Urine Color Urine Appearance Urine pH Ur Specific Hugo Urine Protein Urine Glucose (UA) Urine Ketones Urine Blood Urine Nitrite Urine Bilirubin Urine Urobilinogen Ur Leukocyte Esterase Urine WBC (Auto) Urine RBC (Auto) Urine Bacteria Hyaline Casts Urine Mucus Synovial Source Synovial WBC Synovial RBC Synovial Neutrophils Synovial Monocytes Synovial Crystals Blood Type Antibody Screen 01/13/18 01/13/18 01/14/18 07:20 09:00 06:20 WBC RBC Hgb Hct MCV MCH MCHC RDW Plt Count MPV Absolute Neuts (auto) Neutrophils % Lymphocytes % Monocytes % Eosinophils % Basophils % Nucleated RBC % ESR 83 H PT with INR 22.10 H INR 1.96 H PTT (Actin FS) VBG pH POC VBG pCO2 POC VBG pO2 Mixed VBG HCO3 Sodium Potassium Chloride Carbon Dioxide Anion Gap BUN Creatinine Creat Clearance w eGFR Random Glucose Lactic Acid Uric Acid Calcium Total Bilirubin AST ALT Alkaline Phosphatase Creatine Kinase CK-MB (CK-2) Troponin I C-Reactive Protein Total Protein Albumin Urine Color Urine Appearance Urine pH Ur Specific Hugo Urine Protein Urine Glucose (UA) Urine Ketones Urine Blood Urine Nitrite Urine Bilirubin Urine Urobilinogen Ur Leukocyte Esterase Urine WBC (Auto) Urine RBC (Auto) Urine Bacteria Hyaline Casts Urine Mucus Synovial Source Synovial Synovial WBC 24724 Synovial RBC 7402 Synovial Neutrophils 93 Synovial Monocytes 7 Synovial Crystals Negative Blood Type Antibody Screen Imaging - Results Chest X-ray: Image Reviewed (no i/e) EKG: Image Reviewed (sr incomplete LBBB) Assessment/Plan imp; fever bilateral knee swelling weakness cabg lithotripsy prostate seeds Ongoing medical problems Afib diagnosed at the hospital during SFA [facility]ATFORM MAN 08/2015 and has been on coumadin since then 2015 CAD Coronary artery bypass graft SANTIAGO of left SFA August 11, 2014 Dr. Blanton SANTIAGO of left PDA July 07, 2014 Dr. Blanton dizziness Hyperlipidemia Hypertension Negative MIBI stress test 2013 [place] [facility] NSVT Pauses PCI SANTIAGO of p LCx March 30, 2015 Dr. Blanton PCI LCx 08/17/12 [facility] PCI LCx 07/07/14 Dr. Blanton PLATFORM MAN/stent right SFA 526/16 DR BLANTON Right SFA 100 occlusion July 07, 2014 Dr. Blanton s/p PLATFORM MAN drug elluting balloon L SFA 2015 s/p PLATFORM MAN left SFA 09/25/17 for left foot ulcer s/p urethral stricture after cystoscopy and urethrotomy the patient went into septic shock and was treated with antibiotics and was stabilized. plan agree with [facility] abx ortho and id f/u awaiting knee aspiration results
[2018-01-14] MEDS ORDERED: PIPERACILLIN/TAZOBACTAM 3.375 GM VIAL IVPB ONE ×2 (14:59→18:24)
[2018-01-14] MEDS: PIPERACILLIN/TAZOB 3.375 GM 3.375 GM in DEXTROSE 5%-WATER - 50 ML IVPB SCH ×2 (15:03→18:27)
--- NOTE | 2018-01-14 17:15 | ECHO ---
Name: LYLE ANSARI Exam:Adult Echocardiogram Study Date: 01/14/2018 01:54 PM Age: 77 yrs Reason For Study: POSITIVE BLOOD CULTURES Height: 68 in Weight: 207 lb BSA: 2.1 m2 MMode/2D Measurements & Calculations IVSd: 1.0 cm Ao root diam: 3.0 cm LVIDd: 5.3 cm LA dimension: 4.2 cm LVIDs: 3.7 cm LVPWd: 1.1 cm EDV(Teich): 132.8 ml ESV(Teich): 58.6 ml Doppler Measurements & Calculations MV E max daniel: 62.3 cm/sec Ao V2 max: 216.1 cm/sec MV A max daniel: 88.8 cm/sec Ao max P.7 mmHg MV E/A: 0.70 Ao V2 mean: 154.6 cm/sec Ao mean P.7 mmHg Ao V2 VTI: 43.5 cm LV V1 max P.8 mmHg MR max daniel: 196.2 cm/sec LV V1 max: 156.7 cm/sec MR max P.6 mmHg TR max daniel: 168.3 cm/sec Med Peak E' Daniel: 2.9 cm/sec TR max P.6 mmHg Med E/e': 21.3 Lat Peak E' Daniel: 13.1 cm/sec Lat E/e': 4.8 Procedure A two-dimensional transthoracic echocardiogram with color flow and Doppler was performed. The study w as technically difficult with many images being suboptimal in quality. Left Ventricle The left ventricular size, thickness and function are normal. The left ventricular ejection fraction is normal. E/A reversal consistent with but not diagnostic of poor LV compliance. Septal motion is consi stent with post-operative state. Right Ventricle The right ventricle is not well visualized. Atria The left atrium is mildly dilated. The right atrium is mildly dilated. Mitral Valve There is mild mitral valve thickening. The mitral valve is not well visualized. There is no mitral va lve stenosis. There is mild mitral regurgitation. Tricuspid Valve There is mild tricuspid valve thickening. The tricuspid valve is not well visualized. There is no tri cuspid stenosis. There is mild tricuspid regurgitation. Right ventricular systolic pressure is normal. Aortic Valve The aortic valve is not well visualized. The aortic valve is trileaflet. No hemodynamically significa nt valvular aortic stenosis. No aortic regurgitation is present. Pulmonic Valve The pulmonic valve is not well visualized. Interpretation Summary The left ventricular size, thickness and function are normal The left ventricular ejection fraction is normal. Septal motion is consistent with post-operative state. The left atrium is mildly dilated. The right atrium is mildly dilated. There is mild mitral regurgitation. There is mild tricuspid regurgitation. Right ventricular systolic pressure is normal. E/A reversal consistent with but not diagnostic of poor LV compliance The study was technically difficult with many images being suboptimal in quality. The mitral valve is not well visualized. The tricuspid valve is not well visualized. The aortic valve is trileaflet. MD Mc Andrade 01/14/2018 05:14 PM
[2018-01-14] MEDS ORDERED: WARFARIN NA 3 MG TABLET PO SCH (18:00)
[2018-01-14] MEDS: VANCOMYCIN 1,250 MG in DEXTROSE 5%-WATER - 250 ML IVPB SCH (18:28)
--- NOTE | 2018-01-14 20:29 | CON.GU ---
Consult Consult Specialty:: Urology Reason for Consultation:: Pt. has a bishop for follow up - Past Medical History Cardio/Vascular: Yes: AFIB, CAD, CHF, HTN, Hyperlipdemia, Other (PVD, CAD, Coronary Bypass, CAD, Stent lower left leg) Gastrointestinal: Yes: GERD Musculoskeletal: Yes: Osteoarthritis (Chronic Lower back pain) - Past Surgical History Past Surgical History: Yes: CABG, Stent (stents, both cardiac and LLE) - Alcohol/Substance Use Hx Alcohol Use: No History of Substance Use: reports: None - Smoking History Smoking history: Never smoked Have you smoked in the past 12 months: No Aproximately how many cigarettes per day: 0 If you are a former smoker, when did you quit?: 12 YRS AGO - Social History Usual Living Arrangement: With Spouse ADL: Independent History of Recent Travel: No Home Medications - Allergies Allergies/Adverse Reactions: Allergies Allergy/AdvReac Type Severity Reaction Status Date / Time strawberry Allergy Severe Swelling Verified 01/12/18 13:13 pepper (genus Capsicum) Allergy Unknown Verified 01/12/18 13:13 iohexol [From Omnipaque] Allergy Rash Verified 01/12/18 13:13 - Home Medications Home Medications: Ambulatory Orders Folic Acid 1 mg PO DAILY 11/04/16 Acetaminophen [Tylenol .Regular Strength -] 650 mg PO Q6H 11/07/17 Tamsulosin HCl [Flomax] 0.8 mg PO DAILY 11/07/17 Furosemide [Lasix -] 20 mg PO DAILY #30 tablet 11/25/17 Sennosides [Senna -] 2 tab PO HS PRN #30 tablet 11/25/17 Ferrous Sulfate 325 mg PO BID 01/01/18 Lisinopril [Prinivil] 5 mg PO DAILY 01/01/18 Omeprazole 40 mg PO DAILY 01/01/18 Warfarin Na [Coumadin -] 5 mg PO HS 01/01/18 traMADol HCL [Ultram -] 50 mg PO BID PRN #60 tablet MDD 2 01/03/18 Aspirin [ASA -] 81 mg PO DAILY 01/12/18 Atorvastatin Ca [Lipitor] 20 mg PO HS 01/12/18 Clopidogrel Bisulfate [Plavix -] 75 mg PO DAILY 01/12/18 Isosorbide Mononitrate [Isosorbide Mononitrate ER] 30 mg PO DAILY 01/12/18 Family Disease History - Family Disease History Family Disease History: Heart Disease: Brother (hear disease), CA: Father ( hodgkins) Physical Exam- Vital Signs: Vital Signs Temperature 99.0 F 01/14/18 18:00 Pulse Rate 84 01/14/18 18:00 Respiratory Rate 20 01/14/18 18:00 Blood Pressure 126/65 01/14/18 18:00 O2 Sat by Pulse Oximetry (%) 97 01/14/18 09:00 Labs: CBC, BMP 01/13/18 07:20 01/13/18 07:20 Assessment/Plan Pt. is well known to me. He was seen several weeks ago with urinary retention. He has a severe urethral stricture and he underwnet cysto visual urethrotomy. He has a bishop. Pt. has a hx of Ca of the Prostate treated with Radiation and seed implant. He also multiple cardiac and vascular issues. Pt. needs TUR Bladder Neck, but was unable to get off his blood thinners. At present he is doing OK. Will remove his bishop on Friday and give him a trial of voiding. Should he go into retention will need a procedure. Will follow Thank you
[2018-01-14] MEDS: ATORVASTATIN CA 20 MG TABLET (FP) PO SCH (21:40)
[2018-01-15] MEDS ORDERED: DEXTROSE 5%-WATER - 50 ML IVPB ONE ×3 (01:10→17:19)
[2018-01-15] MEDS ORDERED: PIPERACILLIN/TAZOBACTAM 3.375 GM VIAL IVPB ONE ×3 (01:10→17:19)
[2018-01-15] MEDS: PIPERACILLIN/TAZOB 3.375 GM 3.375 GM in DEXTROSE 5%-WATER - 50 ML IVPB SCH ×3 (02:52→17:29)
[2018-01-15] MEDS: ACETAMINOPHEN 325 MG TABLET (FP) PO SCH ×4 (05:24→23:01)
[2018-01-15 06:54] LABS: HEMATOCRIT 32.1 % (35.4-49); HEMOGLOBIN 10.4 GM/dL (11.7-16.9); MCH 29.5 pg (25.7-33.7); MCHC 32.4 g/dl (32.0-35.9); MEAN CELL VOLUME 90.9 fl (80-96); MEAN PLT VOLUME 7.7 fl (7.5-11.1); PLATELET COUNT 318 K/MM3 (134-434); RBC 3.54 M/mm3 (4.00-5.60); RDW 18.5 % (11.9-15.9)
[2018-01-15 08:50] LABS: INR 1.43 (0.83-1.09); PROTHROMBIN TIME (PATIENT) 16.2 SEC (9.7-13.0)
[2018-01-15] MEDS: TAMSULOSIN HCL 0.4 MG CAP PO SCH (08:59)
[2018-01-15 09:10] LABS: GLUCOSE,SYNOVIAL FLUID 3 mg/dL; TOTAL PROTEIN,SYNOVIAL FLUID 4 gm/dL
[2018-01-15] MEDS ORDERED: PT OWN MED DRAWER 7, Y5N ONE (09:42)
--- NOTE | 2018-01-15 10:36 | PN ---
Progress Note, Physician Chief Complaint: Pt A&Ox3; no chest pain or dyspnea; able to move knees (which are still painful ) "since they took fluid out", though still feels weak History of Present Illness: The patient is a 77 year old white man (rajiv Owusu) with a significant past medical history of HTN, HLD, CAD (s/p stents), diastolic CHF, prostate CA, urethral stricture (catheter in place) who presents to the ER with difficulty ranging his legs today. The patient states he noticed significant swelling, redness, and warmth to the bilateral knees. Patient reports he needed assistance to ambulate today, which is new for him. Patient states he was discharged from rehab four days ago and was ambulating appropriately until today. Patient has not eaten today as he is experiencing mild nausea. Patient denies taking any of his medications today. 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 Patient has his catheter in place and draining urine appropriately. Patient has a fever of 100.1 here in the ER. - Current Medication List Current Medications: Active Medications Acetaminophen (Tylenol -) 650 mg PO Q6HPO [facility] Last Admin: 01/15/18 05:24 Dose: 650 mg Aspirin (Asa -) 81 mg PO DAILY [facility] Last Admin: 01/14/18 11:41 Dose: 81 mg Atorvastatin Calcium (Lipitor -) 20 mg PO HS [facility] Last Admin: 01/14/18 21:40 Dose: 20 mg Clopidogrel Bisulfate (Plavix -) 75 mg PO DAILY [facility] Last Admin: 01/14/18 11:40 Dose: 75 mg Ferrous Sulfate (Feosol -) 325 mg PO BID [facility] Last Admin: 01/14/18 21:40 Dose: 325 mg Folic Acid (Folic Acid -) 1 mg PO DAILY [facility] Last Admin: 01/14/18 11:09 Dose: 1 mg Furosemide (Lasix -) 20 mg PO DAILY [facility] Last Admin: 01/14/18 11:08 Dose: 20 mg Vancomycin HCl 1,250 mg/ (Dextrose) 250 mls @ 250 mls/2 hr IVPB DAILY@1800 JORJE ; Protocol Last Admin: 01/14/18 18:28 Dose: 250 mls/2 hr Piperacillin Sod/Tazobactam (Sod 3.375 gm/ Dextrose) 50 mls @ 100 mls/hr IVPB Q8H-IV JORJE; Protocol Last Admin: 01/15/18 02:52 Dose: 100 mls/hr Isosorbide Mononitrate (Imdur -) 30 mg PO DAILY [facility] Last Admin: 01/14/18 11:08 Dose: 30 mg Lidocaine HCl (Xylocaine 2% Jelly) 1 applic TP BID PRN PRN Reason: MODERATE PAIN Last Admin: 01/14/18 06:52 Dose: 1 applic Lisinopril (Prinivil) 5 mg PO DAILY [facility] Last Admin: 01/14/18 11:09 Dose: 5 mg Pantoprazole Sodium (Protonix -) 40 mg PO DAILY [facility] Last Admin: 01/14/18 11:09 Dose: 40 mg Senna (Senna -) 2 tab PO HS PRN PRN Reason: CONSTIPATION Last Admin: 01/12/18 22:42 Dose: 2 tab Sodium Chloride ([facility] [place] Nasal [place] -) 2 spray NS BID PRN PRN Reason: NASAL CONGESTION Last Admin: 01/14/18 06:51 Dose: 2 spray Tamsulosin HCl (Flomax -) 0.8 mg PO DAILY@0830 [facility] Last Admin: 01/15/18 08:59 Dose: 0.8 mg Tramadol HCl (Ultram -) 50 mg PO Q12H PRN PRN Reason: BACK PAIN Last Admin: 01/14/18 13:50 Dose: 50 mg Warfarin Sodium (Coumadin -) 3 mg PO DAILY@1800 [facility] Last Admin: 01/14/18 18:28 Dose: 3 mg - Objective Vital Signs: Vital Signs Temperature 98.3 F 01/15/18 09:34 Pulse Rate 87 01/15/18 09:34 Respiratory Rate 20 01/15/18 09:34 Blood Pressure 156/88 01/15/18 09:34 O2 Sat by Pulse Oximetry (%) 96 01/14/18 21:00 Constitutional: Yes: Calm Eyes: Yes: WNL HENT: Yes: WNL Neck: Yes: WNL Cardiovascular: Yes: S1, S2 Respiratory: Yes: WNL Gastrointestinal: Yes: Soft, Abdomen, Obese ...Rectal Exam: Yes: Deferred Genitourinary: Yes: [place] Present. No: Anuria Breast(s): Yes: WNL Musculoskeletal: Yes: Muscle Weakness Extremities: Yes: WNL Edema: Yes Edema: LLE: Trace, RLE: Trace Peripheral Pulses WNL: Yes Integumentary: Yes: WNL Neurological: Yes: Alert, Oriented, Weakness Psychiatric: Yes: Other (anxiety) Labs: CBC, BMP 01/15/18 06:30 01/13/18 07:20 INR, PTT INR 1.43 (0.83-1.09) H 01/15/18 06:30 Abnormal Lab Results 01/15/18 01/15/18 01/15/18 06:30 06:30 06:30 RBC 3.54 L Hgb 10.4 L Hct 32.1 L RDW 18.5 H PT with INR 16.20 H INR 1.43 H HDL Cholesterol 32 L Abnormal Lab Results 01/15/18 01/15/18 01/15/18 06:30 06:30 06:30 RBC 3.54 L Hgb 10.4 L Hct 32.1 L RDW 18.5 H PT with INR 16.20 H INR 1.43 H HDL Cholesterol 32 L - ....Imaging X-ray: Pending (spinal) Problem List - Problems (1) MRSA bacteremia Assessment/Plan: febrile episodes; initially leukocytotic. antipyretics (avoid non-aspirin NSAIDs). antibiotics per ID Code(s): R78.81 - BACTEREMIA (2) UTI (urinary tract infection) Code(s): N39.0 - URINARY TRACT INFECTION, SITE NOT SPECIFIED (3) Acute on chronic systolic (congestive) heart failure Assessment/Plan: On lisinopril. Furosemide prn. F/u Is and Os, daily weight, BUN/Cr, electrolytes. Code(s): I50.23 - ACUTE ON CHRONIC SYSTOLIC (CONGESTIVE) HEART FAILURE (4) Anxiety Code(s): F41.9 - ANXIETY DISORDER, UNSPECIFIED (5) Atrial fibrillation Assessment/Plan: IV heparin or Lovenox until INR 2-3 with warfarin. Code(s): I48.91 - UNSPECIFIED ATRIAL FIBRILLATION (6) Chronic lower back pain Assessment/Plan: spinal studies pending. Code(s): M54.5 - LOW BACK PAIN; G89.29 - OTHER CHRONIC PAIN (7) Banegas catheter in place Code(s): Z92.89 - PERSONAL HISTORY OF OTHER MEDICAL TREATMENT (8) HTN (hypertension) Code(s): I10 - ESSENTIAL (PRIMARY) HYPERTENSION (9) Hematuria Code(s): R31.9 - HEMATURIA, UNSPECIFIED Qualifiers: Hematuria type: gross Qualified Code(s): R31.0 - Gross hematuria (10) Hyperlipidemia Assessment/Plan: Total cholesterol 118 mg/dL; on atorvastatin 20 mg daily. Code(s): E78.5 - HYPERLIPIDEMIA, UNSPECIFIED (11) Obesity Code(s): E66.9 - OBESITY, UNSPECIFIED (12) Urinary retention Assessment/Plan: [place] catheter; plans for discontinuing next week. Code(s): R33.9 - RETENTION OF URINE, UNSPECIFIED (13) ASHD (arteriosclerotic heart disease) Assessment/Plan: s/p CABG s/p coronary and LE angioplasty/stents. Code(s): I25.10 - ATHSCL HEART DISEASE OF [place] CORONARY ARTERY W/O ANG PCTRS (14) Anemia Code(s): D64.9 - ANEMIA, UNSPECIFIED
[2018-01-15 11:04] LABS: CHOLESTEROL 118 mg/dL (50-200); HDL CHOLESTEROL 32 mg/dL (40-60); TRIGLYCERIDES 86 mg/dL (0-150)
[2018-01-15] MEDS: ISOSORBIDE MONONITRATE 30 MG TAB.SR.24H (FP) PO SCH (11:10)
[2018-01-15] MEDS: ASPIRIN 81 MG CHEWABLE TABLETS PO SCH (11:11)
[2018-01-15] MEDS: FOLIC ACID 1 MG TABLET (FP) PO SCH (11:12)
[2018-01-15] MEDS: FERROUS SO4 325 MG TABLET (FP) PO SCH ×2 (11:12→21:35)
[2018-01-15] MEDS: FUROSEMIDE 20 MG TABLET (FP) PO SCH (11:12)
[2018-01-15] MEDS: CLOPIDOGREL BISULFATE 75 MG TABLET (FP) PO SCH (11:13)
[2018-01-15] MEDS: LISINOPRIL 5 MG TABLET (FP) PO SCH (11:13)
[2018-01-15] MEDS: PANTOPRAZOLE 40 MG TABLET (FP) PO SCH (11:13)
--- NOTE | 2018-01-15 12:14 | PN ---
Progress Note (short form) - Note Progress Note: Pt examined has not got out of bed no SOB , chest pain Vital Signs - 24 hr 01/14/18 01/14/18 01/14/18 14:36 18:00 21:00 Temperature 98.2 F 99.0 F Pulse Rate 85 84 Respiratory 22 H 20 20 Rate Blood Pressure 106/55 L 126/65 O2 Sat by Pulse 96 Oximetry (%) 01/14/18 01/15/18 01/15/18 22:00 06:00 09:34 Temperature 99.1 F 98.2 F 98.3 F Pulse Rate 83 72 87 Respiratory 20 20 20 Rate Blood Pressure 116/60 121/64 156/88 O2 Sat by Pulse Oximetry (%) Current Medications Generic Name Dose Route Start Last Admin Trade Name Freq PRN Reason Stop Dose Admin Acetaminophen 650 mg 01/12/18 20:45 01/15/18 11:23 Tylenol - PO 650 mg Q6HPO JORJE Administration Aspirin 81 mg 01/13/18 10:00 01/15/18 11:11 Asa - PO 81 mg DAILY JORJE Administration Atorvastatin Calcium 20 mg 01/12/18 22:00 01/14/18 21:40 Lipitor - PO 20 mg HS JORJE Administration Clopidogrel Bisulfate 75 mg 01/13/18 10:00 01/15/18 11:13 Plavix - PO 75 mg DAILY JORJE Administration Ferrous Sulfate 325 mg 01/12/18 22:00 01/15/18 11:12 Feosol - PO 325 mg BID JORJE Administration Folic Acid 1 mg 01/13/18 10:00 01/15/18 11:12 Folic Acid - PO 1 mg DAILY J[facility]JE Administration Furosemide 20 mg 01/13/18 10:00 01/15/18 11:12 Lasix - PO 20 mg DAILY JORJE Administration Vancomycin HCl 1,250 mg/ 250 mls @ 250 mls/2 hr 01/13/18 18:00 01/14/18 18:28 Dextrose IVPB 250 mls/2 hr DAILY@1800 J[facility]JE Administration Protocol Piperacillin Sod/Tazobactam 50 mls @ 100 mls/hr 01/14/18 14:30 01/15/18 11:16 Sod 3.375 gm/ Dextrose IVPB 100 mls/hr Q8H-IV [facility]JE Administration Protocol Isosorbide Mononitrate 30 mg 01/13/18 10:00 01/15/18 11:10 Imdur - PO 30 mg DAILY [facility]JE Administration Lidocaine HCl 1 applic 01/13/18 11:44 01/14/18 06:52 Xylocaine 2% Jelly TP 1 applic BID PRN Administration MODERATE PAIN Lisinopril 5 mg 01/13/18 10:00 01/15/18 11:13 Prinivil PO 5 mg DAILY [facility]JE Administration Pantoprazole Sodium 40 mg 01/13/18 10:00 01/15/18 11:13 Protonix - PO 40 mg DAILY [facility]JE Administration Senna 2 tab 01/12/18 20:07 01/12/18 22:42 Senna - PO 2 tab HS PRN Administration CONSTIPATION Sodium Chloride 2 spray 01/13/18 11:46 01/14/18 06:51 [place] Nasal [place] - NS 2 spray BID PRN Administration NASAL CONGESTION Tamsulosin HCl 0.8 mg 01/13/18 08:30 01/15/18 08:59 Flomax - PO 0.8 mg DAILY@0830 [facility] Administration Tramadol HCl 50 mg 01/12/18 20:07 01/14/18 13:50 Ultram - PO 50 mg Q12H PRN Administration BACK PAIN Warfarin Sodium 3 mg 01/14/18 18:00 01/14/18 18:28 Coumadin - PO 3 mg DAILY@1800 J[facility]JE Administration Laboratory Results - last 24 hr 01/13/18 01/15/18 01/15/18 09:00 06:30 06:30 WBC 7.0 RBC 3.54 L Hgb 10.4 L Hct 32.1 L MCV 90.9 MCH 29.5 MCHC 32.4 RDW 18.5 H Plt Count 318 MPV 7.7 PT with INR 16.20 H INR 1.43 H Triglycerides Cholesterol Total LDL Cholesterol HDL Cholesterol Synovial Glucose 3 Synovial Total Protein 4 Synovial LDH 1310 Synovial Amylase 18 01/15/18 06:30 WBC RBC Hgb Hct MCV MCH MCHC RDW Plt Count MPV PT with INR INR Triglycerides 86 Cholesterol 118 Total LDL Cholesterol 75 HDL Cholesterol 32 L Synovial Glucose Synovial Total Protein Synovial LDH Synovial Amylase S s2 irregular Lungs decreased Abd- soft, NT No edema PLAN MRSA - check echo-- no vegetations on Echo - xray of spine-- pending - knee aspiration-- no growth, crystals negative -- pain control -- started vanco -- continue with meds -continue with Coumadin per INR -- dc bishop on Friday per -- PT eval Problem List - Problems (1) Fever Code(s): R50.9 - FEVER, UNSPECIFIED (2) Supratherapeutic INR Code(s): R79.1 - ABNORMAL COAGULATION PROFILE (3) Anxiety Code(s): F41.9 - ANXIETY DISORDER, UNSPECIFIED (4) Atrial fibrillation Code(s): I48.91 - UNSPECIFIED ATRIAL FIBRILLATION (5) Chest pain Code(s): R07.9 - CHEST PAIN, UNSPECIFIED Qualifiers: Chest pain type: unspecified Qualified Code(s): R07.9 - Chest pain, unspecified (6) Bishop catheter in place Code(s): Z92.89 - PERSONAL HISTORY OF OTHER MEDICAL TREATMENT (7) HTN (hypertension) Code(s): I10 - ESSENTIAL (PRIMARY) HYPERTENSION (8) Hematuria Code(s): R31.9 - HEMATURIA, UNSPECIFIED Qualifiers: Hematuria type: gross Qualified Code(s): R31.0 - Gross hematuria (9) Hx of CABG Code(s): Z95.1 - PRESENCE OF AORTOCORONARY BYPASS GRAFT (10) Hyperlipidemia Code(s): E78.5 - HYPERLIPIDEMIA, UNSPECIFIED (11) MRSA bacteremia Code(s): R78.81 - BACTEREMIA (12) UTI (urinary tract infection) Code(s): N39.0 - URINARY TRACT INFECTION, SITE NOT SPECIFIED
[2018-01-15] MEDS: POLYETHYLENE GLYCOL 3350 119 GM BTL PO SCH (15:08)
--- NOTE | 2018-01-15 15:29 | PN ---
Progress Note, Physician History of Present Illness: continues to improve cx results noted sensitivities noted - Current Medication List Current Medications: Active Medications Acetaminophen (Tylenol -) 650 mg PO Q6HPO [facility] Last Admin: 01/15/18 11:23 Dose: 650 mg Aspirin (Asa -) 81 mg PO DAILY [facility] Last Admin: 01/15/18 11:11 Dose: 81 mg Atorvastatin Calcium (Lipitor -) 20 mg PO HS [facility] Last Admin: 01/14/18 21:40 Dose: 20 mg Clopidogrel Bisulfate (Plavix -) 75 mg PO DAILY [facility] Last Admin: 01/15/18 11:13 Dose: 75 mg Ferrous Sulfate (Feosol -) 325 mg PO BID [facility] Last Admin: 01/15/18 11:12 Dose: 325 mg Folic Acid (Folic Acid -) 1 mg PO DAILY [facility] Last Admin: 01/15/18 11:12 Dose: 1 mg Furosemide (Lasix -) 20 mg PO DAILY [facility] Last Admin: 01/15/18 11:12 Dose: 20 mg Vancomycin HCl 1,250 mg/ (Dextrose) 250 mls @ 250 mls/2 hr IVPB DAILY@1800 J[facility] ; Protocol Last Admin: 01/14/18 18:28 Dose: 250 mls/2 hr Piperacillin Sod/Tazobactam (Sod 3.375 gm/ Dextrose) 50 mls @ 100 mls/hr IVPB Q8H-IV [facility]; Protocol Last Admin: 01/15/18 11:16 Dose: 100 mls/hr Isosorbide Mononitrate (Imdur -) 30 mg PO DAILY [facility] Last Admin: 01/15/18 11:10 Dose: 30 mg Lidocaine HCl (Xylocaine 2% Jelly) 1 applic TP BID PRN PRN Reason: MODERATE PAIN Last Admin: 01/14/18 06:52 Dose: 1 applic Lisinopril (Prinivil) 5 mg PO DAILY [facility] Last Admin: 01/15/18 11:13 Dose: 5 mg Pantoprazole Sodium (Protonix -) 40 mg PO DAILY [facility] Last Admin: 01/15/18 11:13 Dose: 40 mg Polyethylene Glycol (Miralax (For Daily Use) -) 17 gm PO DAILY [facility] Last Admin: 01/15/18 15:08 Dose: 17 gm Senna (Senna -) 2 tab PO HS PRN PRN Reason: CONSTIPATION Last Admin: 01/12/18 22:42 Dose: 2 tab Sodium Chloride ([place] Nasal [place] -) 2 spray NS BID PRN PRN Reason: NASAL CONGESTION Last Admin: 01/14/18 06:51 Dose: 2 spray Tamsulosin HCl (Flomax -) 0.8 mg PO DAILY@0830 [facility] Last Admin: 01/15/18 08:59 Dose: 0.8 mg Tramadol HCl (Ultram -) 50 mg PO Q12H PRN PRN Reason: BACK PAIN Last Admin: 01/14/18 13:50 Dose: 50 mg Warfarin Sodium (Coumadin -) 4 mg PO DAILY@1800 [facility] - Objective Vital Signs: Vital Signs Temperature 98.3 F 01/15/18 09:34 Pulse Rate 87 01/15/18 09:34 Respiratory Rate 20 01/15/18 09:34 Blood Pressure 156/88 01/15/18 09:34 O2 Sat by Pulse Oximetry (%) 96 01/14/18 21:00 Constitutional: Yes: No Distress, Calm Cardiovascular: Yes: S1, S2 Respiratory: Yes: Regular, CTA Bilaterally Gastrointestinal: Yes: Normal Bowel Sounds, Soft Genitourinary: Yes: [place] Present Musculoskeletal: Yes: Other Extremities: Yes: Other Neurological: Yes: Alert, Oriented Labs: CBC, BMP 01/15/18 06:30 01/13/18 07:20 INR, PTT INR 1.43 (0.83-1.09) H 01/15/18 06:30 Assessment/Plan patient with multiple medical problems coming with weakness and knee joint swelling Problem List - Problems (1) Fever Code(s): R50.9 - FEVER, UNSPECIFIED (2) Supratherapeutic INR Code(s): R79.1 - ABNORMAL COAGULATION PROFILE (3) Anxiety Code(s): F41.9 - ANXIETY DISORDER, UNSPECIFIED (4) Atrial fibrillation Code(s): I48.91 - UNSPECIFIED ATRIAL FIBRILLATION (5) Chest pain Code(s): R07.9 - CHEST PAIN, UNSPECIFIED Qualifiers: Chest pain type: unspecified Qualified Code(s): R07.9 - Chest pain, unspecified (6) Baneg[place] catheter in place Code(s): Z92.89 - PERSONAL HISTORY OF OTHER MEDICAL TREATMENT (7) HTN (hypertension) Code(s): I10 - ESSENTIAL (PRIMARY) HYPERTENSION (8) Hematuria Code(s): R31.9 - HEMATURIA, UNSPECIFIED Qualifiers: Hematuria type: gross Qualified Code(s): R31.0 - Gross hematuria (9) Hx of CABG Code(s): Z95.1 - PRESENCE OF AORTOCORONARY BYPASS GRAFT (10) Hyperlipidemia Code(s): E78.5 - HYPERLIPIDEMIA, UNSPECIFIED patient s/p arthrocentesis Assessment/Plan cx result noted patient to get TTE continue abx organisms noted cardio on case rest as per the team
[2018-01-15] MEDS: traMADol HCL 50 MG TABLET PO PRN (17:27)
[2018-01-15] MEDS: WARFARIN NA 2 MG TABLET (UD) PO SCH (17:29)
[2018-01-15] MEDS: VANCOMYCIN 1,250 MG in DEXTROSE 5%-WATER - 250 ML IVPB SCH (18:40)
[2018-01-15] MEDS: ATORVASTATIN CA 20 MG TABLET (FP) PO SCH (21:35)
[2018-01-15] MEDS: SODIUM CHLORIDE NASAL SPRAY 44 ML BOTTLE NS PRN (21:37)
[2018-01-15] MEDS: LIDOCAINE HCL 2% JELLY (5 ML/TUBE) TP PRN (23:09)
[2018-01-16] MEDS ORDERED: DEXTROSE 5%-WATER - 50 ML IVPB ONE ×3 (01:13→17:23)
[2018-01-16] MEDS ORDERED: PIPERACILLIN/TAZOBACTAM 3.375 GM VIAL IVPB ONE ×3 (01:13→17:23)
[2018-01-16] MEDS: PIPERACILLIN/TAZOB 3.375 GM 3.375 GM in DEXTROSE 5%-WATER - 50 ML IVPB SCH ×3 (02:42→18:03)
[2018-01-16] MEDS: SODIUM CHLORIDE NASAL SPRAY 44 ML BOTTLE NS PRN (06:24)
[2018-01-16] MEDS: ACETAMINOPHEN 325 MG TABLET (FP) PO SCH ×4 (06:24→23:36)
[2018-01-16 07:40] LABS: HEMATOCRIT 30.9 % (35.4-49); MCH 29.2 pg (25.7-33.7); MCHC 32.4 g/dl (32.0-35.9); MEAN CELL VOLUME 90.1 fl (80-96); MEAN PLT VOLUME 7.5 fl (7.5-11.1); PLATELET COUNT 329 K/MM3 (134-434); RBC 3.44 M/mm3 (4.00-5.60); RDW 18.5 % (11.9-15.9); WHITE BLOOD COUNT 7.9 K/mm3 (4.0-10.0)
[2018-01-16 08:13] LABS: ANION GAP 7 MMOL/L (8-16); BLOOD UREA NITROGEN 23 mg/dL (7-18); CALCIUM 8.7 mg/dL (8.5-10.1); CHLORIDE 103 mmol/L (98-107); CO2 25 mmol/L (21-32); GLUCOSE,RANDOM 100 mg/dL (74-106); POTASSIUM 4.4 mmol/L (3.5-5.1); SODIUM 135 mmol/L (136-145)
[2018-01-16] MEDS: TAMSULOSIN HCL 0.4 MG CAP PO SCH (09:07)
[2018-01-16] MEDS: ASPIRIN 81 MG CHEWABLE TABLETS PO SCH (09:42)
[2018-01-16] MEDS: CLOPIDOGREL BISULFATE 75 MG TABLET (FP) PO SCH (09:42)
[2018-01-16] MEDS: FOLIC ACID 1 MG TABLET (FP) PO SCH (09:42)
[2018-01-16] MEDS: LISINOPRIL 5 MG TABLET (FP) PO SCH (09:42)
[2018-01-16] MEDS: ISOSORBIDE MONONITRATE 30 MG TAB.SR.24H (FP) PO SCH (09:42)
[2018-01-16] MEDS: FUROSEMIDE 20 MG TABLET (FP) PO SCH (09:43)
[2018-01-16] MEDS: FERROUS SO4 325 MG TABLET (FP) PO SCH ×2 (09:43→21:15)
[2018-01-16] MEDS: PANTOPRAZOLE 40 MG TABLET (FP) PO SCH (09:43)
[2018-01-16] MEDS: POLYETHYLENE GLYCOL 3350 119 GM BTL PO SCH (09:44)
--- NOTE | 2018-01-16 10:21 | PN ---
Progress Note, Physician Chief Complaint: Pt A&Ox3; his legs feel stronger, though knees are again painful (respond best to Tramadol, he says). is at bedside. History of Present Illness: The patient is a 77 year old white man (rajiv Francoise) with a significant past medical history of HTN, HLD, CAD (s/p stents), diastolic CHF, prostate CA, urethral stricture (catheter in place) who presents to the ER with difficulty ranging his legs today. The patient states he noticed significant swelling, redness, and warmth to the bilateral knees. Patient reports he needed assistance to ambulate today, which is new for him. Patient states he was discharged from rehab four days ago and was ambulating appropriately until today. Patient has not eaten today as he is experiencing mild nausea. Patient denies taking any of his medications today. 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 Patient has his catheter in place and draining urine appropriately. Patient has a fever of 100.1 here in the ER. - Current Medication List Current Medications: Active Medications Acetaminophen (Tylenol -) 650 mg PO Q6HPO [facility] Last Admin: 01/16/18 06:24 Dose: 650 mg Aspirin (Asa -) 81 mg PO DAILY [facility] Last Admin: 01/16/18 09:42 Dose: 81 mg Atorvastatin Calcium (Lipitor -) 20 mg PO HS [facility] Last Admin: 01/15/18 21:35 Dose: 20 mg Clopidogrel Bisulfate (Plavix -) 75 mg PO DAILY [facility] Last Admin: 01/16/18 09:42 Dose: 75 mg Ferrous Sulfate (Feosol -) 325 mg PO BID [facility] Last Admin: 01/16/18 09:43 Dose: 325 mg Folic Acid (Folic Acid -) 1 mg PO DAILY [facility] Last Admin: 01/16/18 09:42 Dose: 1 mg Furosemide (Lasix -) 20 mg PO DAILY [facility] Last Admin: 01/16/18 09:43 Dose: 20 mg Vancomycin HCl 1,250 mg/ (Dextrose) 250 mls @ 250 mls/2 hr IVPB DAILY@1800 [facility] ; Protocol Last Admin: 01/15/18 18:40 Dose: 250 mls/2 hr Piperacillin Sod/Tazobactam (Sod 3.375 gm/ Dextrose) 50 mls @ 100 mls/hr IVPB Q8H-IV [facility]; Protocol Last Admin: 01/16/18 09:43 Dose: 100 mls/hr Isosorbide Mononitrate (Imdur -) 30 mg PO DAILY [facility] Last Admin: 01/16/18 09:42 Dose: 30 mg Lidocaine HCl (Xylocaine 2% Jelly) 1 applic TP BID PRN PRN Reason: MODERATE PAIN Last Admin: 01/15/18 23:09 Dose: 1 applic Lisinopril (Prinivil) 5 mg PO DAILY [facility] Last Admin: 01/16/18 09:42 Dose: 5 mg Pantoprazole Sodium (Protonix -) 40 mg PO DAILY [facility] Last Admin: 01/16/18 09:43 Dose: 40 mg Polyethylene Glycol (Miralax (For Daily Use) -) 17 gm PO DAILY [facility] Last Admin: 01/16/18 09:44 Dose: 17 gm Senna (Senna -) 2 tab PO HS PRN PRN Reason: CONSTIPATION Last Admin: 01/12/18 22:42 Dose: 2 tab Sodium Chloride ([place] Nasal [place] -) 2 spray NS BID PRN PRN Reason: NASAL CONGESTION Last Admin: 01/16/18 06:24 Dose: 2 spray Tamsulosin HCl (Flomax -) 0.8 mg PO DAILY@0830 [facility] Last Admin: 01/16/18 09:07 Dose: 0.8 mg Tramadol HCl (Ultram -) 50 mg PO Q12H PRN PRN Reason: BACK PAIN Last Admin: 01/15/18 17:27 Dose: 50 mg Warfarin Sodium (Coumadin -) 4 mg PO DAILY@1800 [facility] Last Admin: 01/15/18 17:29 Dose: 4 mg - Objective Vital Signs: Vital Signs Temperature 98.1 F 01/16/18 07:38 Pulse Rate 76 01/16/18 07:38 Respiratory Rate 20 01/16/18 07:38 Blood Pressure 118/65 01/16/18 07:38 O2 Sat by Pulse Oximetry (%) 95 01/15/18 21:00 Constitutional: Yes: Calm Eyes: Yes: WNL HENT: Yes: WNL Neck: Yes: WNL Cardiovascular: Yes: Pulse Irregular Respiratory: Yes: Regular Gastrointestinal: Yes: Soft ...Rectal Exam: Yes: Deferred Genitourinary: No: Anuria Musculoskeletal: Yes: Joint Stiffness, Muscle Weakness Extremities: Yes: Cool Edema: No Peripheral Pulses WNL: Yes Integumentary: Yes: WNL Neurological: Yes: Alert, Oriented, Weakness Psychiatric: Yes: Alert, Oriented Labs: CBC, BMP 01/16/18 07:10 01/16/18 07:10 INR, PTT INR 1.43 (0.83-1.09) H 01/15/18 06:30 Abnormal Lab Results 01/17/18 01/17/18 07:30 17:20 PT with INR 15.20 H INR 1.28 H Vancomycin Pre-Dose 7.7 L Problem List - Problems (1) MRSA bacteremia Assessment/Plan: febrile episodes; initially leukocytotic. antipyretics (avoid non-aspirin NSAIDs). antibiotics per ID Code(s): R78.81 - BACTEREMIA (2) UTI (urinary tract infection) Code(s): N39.0 - URINARY TRACT INFECTION, SITE NOT SPECIFIED (3) Acute on chronic systolic (congestive) heart failure Assessment/Plan: On lisinopril. Furosemide prn. F/u Is and Os, daily weight, BUN/Cr, electrolytes. Code(s): I50.23 - ACUTE ON CHRONIC SYSTOLIC (CONGESTIVE) HEART FAILURE (4) Anxiety Code(s): F41.9 - ANXIETY DISORDER, UNSPECIFIED (5) Atrial fibrillation Assessment/Plan: IV heparin or Lovenox until INR 2-3 with warfarin. Code(s): I48.91 - UNSPECIFIED ATRIAL FIBRILLATION (6) Chronic lower back pain Assessment/Plan: spinal studies pending. Code(s): M54.5 - LOW BACK PAIN; G89.29 - OTHER CHRONIC PAIN (7) Banegas catheter in place Code(s): Z92.89 - PERSONAL HISTORY OF OTHER MEDICAL TREATMENT (8) HTN (hypertension) Code(s): I10 - ESSENTIAL (PRIMARY) HYPERTENSION (9) Hematuria Code(s): R31.9 - HEMATURIA, UNSPECIFIED Qualifiers: Hematuria type: gross Qualified Code(s): R31.0 - Gross hematuria (10) Hyperlipidemia Code(s): E78.5 - HYPERLIPIDEMIA, UNSPECIFIED (11) Obesity Code(s): E66.9 - OBESITY, UNSPECIFIED (12) Urinary retention Code(s): R33.9 - RETENTION OF URINE, UNSPECIFIED (13) ASHD (arteriosclerotic heart disease) Code(s): I25.10 - ATHSCL HEART DISEASE OF [place] CORONARY ARTERY W/O ANG PCTRS (14) Anemia Code(s): D64.9 - ANEMIA, UNSPECIFIED
--- NOTE | 2018-01-16 10:41 | PN ---
Progress Note (short form) - Note Progress Note: patient seen and examined Chart reviewed Awake Comfortable still complains of discomfort in knees No fever or chills Vital Signs Temp 98.1 F 01/16/18 07:38 Pulse 76 01/16/18 07:38 Resp 20 01/16/18 07:38 BP 118/65 01/16/18 07:38 Pulse Ox 95 01/15/18 21:00 Intake & Output 01/15/18 01/15/18 01/16/18 11:59 23:59 11:59 Intake Total 235 790 500 Output Total 900 1100 750 Balance -665 -310 -250 Intake: IVPB 50 50 200 Oral 185 740 300 Output: Urine 900 1100 750 [place]egas 900 1100 750 Other: Voiding Method Diaper Indwelling Catheter Bowel Movement No No Active Medications Acetaminophen (Tylenol -) 650 mg PO Q6HPO [facility] Last Admin: 01/16/18 06:24 Dose: 650 mg Aspirin (Asa -) 81 mg PO DAILY [facility] Last Admin: 01/16/18 09:42 Dose: 81 mg Atorvastatin Calcium (Lipitor -) 20 mg PO HS [facility] Last Admin: 01/15/18 21:35 Dose: 20 mg Clopidogrel Bisulfate (Plavix -) 75 mg PO DAILY [facility] Last Admin: 01/16/18 09:42 Dose: 75 mg Ferrous Sulfate (Feosol -) 325 mg PO BID [facility] Last Admin: 01/16/18 09:43 Dose: 325 mg Folic Acid (Folic Acid -) 1 mg PO DAILY [facility] Last Admin: 01/16/18 09:42 Dose: 1 mg Furosemide (Lasix -) 20 mg PO DAILY [facility] Last Admin: 01/16/18 09:43 Dose: 20 mg Vancomycin HCl 1,250 mg/ (Dextrose) 250 mls @ 250 mls/2 hr IVPB DAILY@1800 J[facility] ; Protocol Last Admin: 01/15/18 18:40 Dose: 250 mls/2 hr Piperacillin Sod/Tazobactam (Sod 3.375 gm/ Dextrose) 50 mls @ 100 mls/hr IVPB Q8H-IV [facility]; Protocol Last Admin: 01/16/18 09:43 Dose: 100 mls/hr Isosorbide Mononitrate (Imdur -) 30 mg PO DAILY [facility] Last Admin: 01/16/18 09:42 Dose: 30 mg Lidocaine HCl (Xylocaine 2% Jelly) 1 applic TP BID PRN PRN Reason: MODERATE PAIN Last Admin: 01/15/18 23:09 Dose: 1 applic Lisinopril (Prinivil) 5 mg PO DAILY [facility] Last Admin: 01/16/18 09:42 Dose: 5 mg Pantoprazole Sodium (Protonix -) 40 mg PO DAILY [facility] Last Admin: 01/16/18 09:43 Dose: 40 mg Polyethylene Glycol (Miralax (For Daily Use) -) 17 gm PO DAILY [facility] Last Admin: 01/16/18 09:44 Dose: 17 gm Senna (Senna -) 2 tab PO HS PRN PRN Reason: CONSTIPATION Last Admin: 01/12/18 22:42 Dose: 2 tab Sodium Chloride ([place] Nasal [place] -) 2 spray NS BID PRN PRN Reason: NASAL CONGESTION Last Admin: 01/16/18 06:24 Dose: 2 spray Tamsulosin HCl (Flomax -) 0.8 mg PO DAILY@0830 [facility] Last Admin: 01/16/18 09:07 Dose: 0.8 mg Tramadol HCl (Ultram -) 50 mg PO Q12H PRN PRN Reason: BACK PAIN Last Admin: 01/15/18 17:27 Dose: 50 mg Warfarin Sodium (Coumadin -) 4 mg PO DAILY@1800 [facility] Last Admin: 01/15/18 17:29 Dose: 4 mg CBC, BMP 01/16/18 07:10 01/16/18 07:10 Microbiology 01/15/18 06:30 Blood Culture - Preliminary Blood - Peripheral Venous NO GROWTH OBTAINED AFTER 24 HOURS, INCUBATION TO CONTINUE FOR 4 DAYS. 01/15/18 06:30 Blood Culture - Preliminary Blood - Peripheral Venous NO GROWTH OBTAINED AFTER 24 HOURS, INCUBATION TO CONTINUE FOR 4 DAYS. 01/12/18 14:10 Blood Culture - Preliminary Blood - Peripheral Venous NO GROWTH OBTAINED AFTER 72 HOURS, INCUBATION TO CONTINUE FOR 2 DAYS. 01/13/18 09:00 Gram Stain - Final Aspirate Body Fluid Culture - Final NO GROWTH OF AEROBIC ORGANISMS AFTER 48 HOURS INCUBATION Anaerobic Culture - Final NO ANAEROBES WERE ISOLATED 01/12/18 16:10 Urine Culture - Preliminary Urine - Urine Banegas Pseudomonas Aeruginosa Morganella Morganii Group D Strep Or Entero Coccus Staphylococcus Coagulase Neg INR-- Pending. physical exam alert and awake S1 s2 irregular Lungs decreased Abd- soft, NT No edema PLAN clinically stable Continue present care antibiotics MRSA precautions Banegas catheter to be discontinued on Friday--- as per Daily out of bed to chair and physical therapy Will follow
--- NOTE | 2018-01-16 11:01 | PN ---
Progress Note (short form) - Note Progress Note: Ortho Pt seen and examined b/l knee djd improving, MRSA + BC, UC +, Pt was also c/o LBP in which he has a long h/o of back issues. He denies any numbness, tingling , bowel/bladder dysfunction. He notes that back pain has improved today. Selected Entries 01/16/18 07:38 Temperature 98.1 F Pulse Rate 76 Respiratory 20 Rate Blood Pressure 118/65 decr swelling, no erythema, incr rom, nvi Laboratory Tests 01/13/18 01/16/18 09:00 07:10 WBC 7.9 Hgb 10.0 L Hct 30.9 L Plt Count 329 Synovial Source Synovial Synovial WBC 56592 Synovial RBC 7402 Synovial Neutrophils 93 Synovial Monocytes 7 Synovial Crystals Negative xrays LS Spine shows significant multi level DDD, no acute pathology a/p cultures neg abx as per ID for UTI and + BC LS spine with DDD, pain improving- if worsens consult neuro surgery PT eval Pt needs to be oob and weight-bearing wbat d/w Dr. Clemens
[2018-01-16 12:07] LABS: INR 1.25 (0.83-1.09); PROTHROMBIN TIME (PATIENT) 14.8 SEC (9.7-13.0)
--- NOTE | 2018-01-16 13:21 | PN ---
Progress Note, Physician History of Present Illness: patient improving still with knee pain patient mentions that plan is to remove foleys and might get cystoscopy remains afebrile repeat cx have been negative - Current Medication List Current Medications: Active Medications Acetaminophen (Tylenol -) 650 mg PO Q6HPO [facility] Last Admin: 01/16/18 06:24 Dose: 650 mg Aspirin (Asa -) 81 mg PO DAILY [facility] Last Admin: 01/16/18 09:42 Dose: 81 mg Atorvastatin Calcium (Lipitor -) 20 mg PO HS [facility] Last Admin: 01/15/18 21:35 Dose: 20 mg Clopidogrel Bisulfate (Plavix -) 75 mg PO DAILY [facility] Last Admin: 01/16/18 09:42 Dose: 75 mg Ferrous Sulfate (Feosol -) 325 mg PO BID [facility] Last Admin: 01/16/18 09:43 Dose: 325 mg Folic Acid (Folic Acid -) 1 mg PO DAILY [facility] Last Admin: 01/16/18 09:42 Dose: 1 mg Furosemide (Lasix -) 20 mg PO DAILY [facility] Last Admin: 01/16/18 09:43 Dose: 20 mg Vancomycin HCl 1,250 mg/ (Dextrose) 250 mls @ 250 mls/2 hr IVPB DAILY@1800 [facility] ; Protocol Last Admin: 01/15/18 18:40 Dose: 250 mls/2 hr Piperacillin Sod/Tazobactam (Sod 3.375 gm/ Dextrose) 50 mls @ 100 mls/hr IVPB Q8H-IV [facility]; Protocol Last Admin: 01/16/18 09:43 Dose: 100 mls/hr Isosorbide Mononitrate (Imdur -) 30 mg PO DAILY [facility] Last Admin: 01/16/18 09:42 Dose: 30 mg Lidocaine HCl (Xylocaine 2% Jelly) 1 applic TP BID PRN PRN Reason: MODERATE PAIN Last Admin: 01/15/18 23:09 Dose: 1 applic Lisinopril (Prinivil) 5 mg PO DAILY [facility] Last Admin: 01/16/18 09:42 Dose: 5 mg Pantoprazole Sodium (Protonix -) 40 mg PO DAILY [facility] Last Admin: 01/16/18 09:43 Dose: 40 mg Polyethylene Glycol (Miralax (For Daily Use) -) 17 gm PO DAILY [facility] Last Admin: 01/16/18 09:44 Dose: 17 gm Senna (Senna -) 2 tab PO HS PRN PRN Reason: CONSTIPATION Last Admin: 01/12/18 22:42 Dose: 2 tab Sodium Chloride ([place] Nasal [place] -) 2 spray NS BID PRN PRN Reason: NASAL CONGESTION Last Admin: 01/16/18 06:24 Dose: 2 spray Tamsulosin HCl (Flomax -) 0.8 mg PO DAILY@0830 [facility] Last Admin: 01/16/18 09:07 Dose: 0.8 mg Tramadol HCl (Ultram -) 50 mg PO Q12H PRN PRN Reason: BACK PAIN Last Admin: 01/15/18 17:27 Dose: 50 mg Warfarin Sodium (Coumadin -) 4 mg PO DAILY@1800 [facility] Last Admin: 01/15/18 17:29 Dose: 4 mg - Objective Vital Signs: Vital Signs Temperature 98.1 F 01/16/18 07:38 Pulse Rate 76 01/16/18 07:38 Respiratory Rate 20 01/16/18 07:38 Blood Pressure 118/65 01/16/18 07:38 O2 Sat by Pulse Oximetry (%) 95 01/15/18 21:00 Constitutional: Yes: No Distress, Calm Cardiovascular: Yes: S1, S2 Respiratory: Yes: Regular, CTA Bilaterally Gastrointestinal: Yes: Normal Bowel Sounds, Soft Genitourinary: Yes: [place]eg[place] Present Extremities: Yes: Other Edema: LLE: 1+, RLE: 1+ Neurological: Yes: Alert, Oriented Psychiatric: Yes: Alert, Oriented Labs: CBC, BMP 01/16/18 07:10 01/16/18 07:10 INR, PTT INR 1.25 (0.83-1.09) H 01/16/18 07:10 Assessment/Plan patient with multiple medical problems coming with weakness and knee joint swelling Problem List - Problems (1) Fever Code(s): R50.9 - FEVER, UNSPECIFIED (2) Supratherapeutic INR Code(s): R79.1 - ABNORMAL COAGULATION PROFILE (3) Anxiety Code(s): F41.9 - ANXIETY DISORDER, UNSPECIFIED (4) Atrial fibrillation Code(s): I48.91 - UNSPECIFIED ATRIAL FIBRILLATION (5) Chest pain Code(s): R07.9 - CHEST PAIN, UNSPECIFIED Qualifiers: Chest pain type: unspecified Qualified Code(s): R07.9 - Chest pain, unspecified (6) Banegas catheter in place Code(s): Z92.89 - PERSONAL HISTORY OF OTHER MEDICAL TREATMENT (7) HTN (hypertension) Code(s): I10 - ESSENTIAL (PRIMARY) HYPERTENSION (8) Hematuria Code(s): R31.9 - HEMATURIA, UNSPECIFIED Qualifiers: Hematuria type: gross Qualified Code(s): R31.0 - Gross hematuria (9) Hx of CABG Code(s): Z95.1 - PRESENCE OF AORTOCORONARY BYPASS GRAFT (10) Hyperlipidemia Code(s): E78.5 - HYPERLIPIDEMIA, UNSPECIFIED patient s/p arthrocentesis Assessment/Plan cx result noted continue abx organisms noted cardio on case rest as per the team arleneo trough ordered for tomorrow
[2018-01-16] MEDS: WARFARIN NA 2 MG TABLET (UD) PO SCH (18:01)
[2018-01-16] MEDS: traMADol HCL 50 MG TABLET PO PRN (18:01)
[2018-01-16] MEDS: VANCOMYCIN 1,250 MG in DEXTROSE 5%-WATER - 250 ML IVPB SCH (18:37)
[2018-01-16] MEDS: ATORVASTATIN CA 20 MG TABLET (FP) PO SCH (21:15)
[2018-01-16] MEDS: LIDOCAINE HCL 2% JELLY (5 ML/TUBE) TP PRN (21:15)
[2018-01-17] MEDS ORDERED: DEXTROSE 5%-WATER - 50 ML IVPB ONE ×4 (02:08→23:35)
[2018-01-17] MEDS ORDERED: PIPERACILLIN/TAZOBACTAM 3.375 GM VIAL IVPB ONE ×4 (02:08→23:35)
[2018-01-17] MEDS: PIPERACILLIN/TAZOB 3.375 GM 3.375 GM in DEXTROSE 5%-WATER - 50 ML IVPB SCH ×3 (02:49→17:35)
[2018-01-17] MEDS: ACETAMINOPHEN 325 MG TABLET (FP) PO SCH ×3 (07:05→17:34)
[2018-01-17] MEDS ORDERED: INSULIN (LEVEMIR) 100 UNITS/ML UNITS SQ ONE (07:09)
[2018-01-17] MEDS ORDERED: INSULIN (NOVOLOG) ASPART 100 UNITS/ML 10ML VIAL ONE (07:10)
[2018-01-17] MEDS: TAMSULOSIN HCL 0.4 MG CAP PO SCH (08:30)
[2018-01-17 08:42] LABS: INR 1.28 (0.83-1.09); PROTHROMBIN TIME (PATIENT) 15.2 SEC (9.7-13.0)
[2018-01-17] MEDS: CLOPIDOGREL BISULFATE 75 MG TABLET (FP) PO SCH (10:31)
[2018-01-17] MEDS: LISINOPRIL 5 MG TABLET (FP) PO SCH (10:32)
[2018-01-17] MEDS: FOLIC ACID 1 MG TABLET (FP) PO SCH (10:32)
[2018-01-17] MEDS: PANTOPRAZOLE 40 MG TABLET (FP) PO SCH (10:32)
[2018-01-17] MEDS: ISOSORBIDE MONONITRATE 30 MG TAB.SR.24H (FP) PO SCH (10:32)
[2018-01-17] MEDS: FUROSEMIDE 20 MG TABLET (FP) PO SCH (10:32)
[2018-01-17] MEDS: SODIUM CHLORIDE NASAL SPRAY 44 ML BOTTLE NS PRN (10:32)
[2018-01-17] MEDS: ASPIRIN 81 MG CHEWABLE TABLETS PO SCH (10:32)
[2018-01-17] MEDS: FERROUS SO4 325 MG TABLET (FP) PO SCH ×2 (10:32→22:18)
[2018-01-17] MEDS: POLYETHYLENE GLYCOL 3350 119 GM BTL PO SCH (10:33)
--- NOTE | 2018-01-17 11:38 | PN ---
Progress Note (short form) - Note Progress Note: comfortable no new issues no fever denies pain Vital Signs Temp 98.3 F 01/17/18 10:00 Pulse 76 01/17/18 10:00 Resp 20 01/17/18 10:00 BP 116/68 01/17/18 10:00 Pulse Ox 97 01/16/18 21:00 Intake & Output 01/16/18 01/16/18 01/17/18 11:59 23:59 11:59 Intake Total 500 1490 600 Output Total 750 1800 Balance -250 -310 600 Intake: IVPB 200 300 Oral 300 1490 300 Output: Urine 750 1800 Bishop 750 1800 Other: Voiding Method Indwelling Catheter Indwelling Catheter Bowel Movement Yes Active Medications Acetaminophen (Tylenol -) 650 mg PO Q6HPO [facility] Last Admin: 01/17/18 07:05 Dose: 650 mg Aspirin (Asa -) 81 mg PO DAILY [facility] Last Admin: 01/17/18 10:32 Dose: 81 mg Atorvastatin Calcium (Lipitor -) 20 mg PO HS [facility] Last Admin: 01/16/18 21:15 Dose: 20 mg Clopidogrel Bisulfate (Plavix -) 75 mg PO DAILY [facility] Last Admin: 01/17/18 10:31 Dose: 75 mg Ferrous Sulfate (Feosol -) 325 mg PO BID [facility] Last Admin: 01/17/18 10:32 Dose: 325 mg Folic Acid (Folic Acid -) 1 mg PO DAILY [facility] Last Admin: 01/17/18 10:32 Dose: 1 mg Furosemide (Lasix -) 20 mg PO DAILY [facility] Last Admin: 01/17/18 10:32 Dose: 20 mg Vancomycin HCl 1,250 mg/ (Dextrose) 250 mls @ 250 mls/2 hr IVPB DAILY@1800 [facility] ; Protocol Last Admin: 01/16/18 18:37 Dose: 250 mls/2 hr Piperacillin Sod/Tazobactam (Sod 3.375 gm/ Dextrose) 50 mls @ 100 mls/hr IVPB Q8H-IV [facility]; Protocol Last Admin: 01/17/18 10:32 Dose: 100 mls/hr Isosorbide Mononitrate (Imdur -) 30 mg PO DAILY [facility] Last Admin: 01/17/18 10:32 Dose: 30 mg Lidocaine HCl (Xylocaine 2% Jelly) 1 applic TP BID PRN PRN Reason: MODERATE PAIN Last Admin: 01/16/18 21:15 Dose: 1 applic Lisinopril (Prinivil) 5 mg PO DAILY [facility] Last Admin: 01/17/18 10:32 Dose: 5 mg Pantoprazole Sodium (Protonix -) 40 mg PO DAILY [facility] Last Admin: 01/17/18 10:32 Dose: 40 mg Polyethylene Glycol (Miralax (For Daily Use) -) 17 gm PO DAILY [facility] Last Admin: 01/17/18 10:33 Dose: 17 gm Senna (Senna -) 2 tab PO HS PRN PRN Reason: CONSTIPATION Last Admin: 01/12/18 22:42 Dose: 2 tab Sodium Chloride ([place] Nasal [place] -) 2 spray NS BID PRN PRN Reason: NASAL CONGESTION Last Admin: 01/17/18 10:32 Dose: 2 spray Tamsulosin HCl (Flomax -) 0.8 mg PO DAILY@0830 [facility] Last Admin: 01/17/18 08:30 Dose: 0.8 mg Tramadol HCl (Ultram -) 50 mg PO Q12H PRN PRN Reason: BACK PAIN Last Admin: 01/16/18 18:01 Dose: 50 mg Warfarin Sodium (Coumadin -) 4 mg PO DAILY@1800 [facility] Last Admin: 01/16/18 18:01 Dose: 4 mg Warfarin Sodium (Coumadin -) 4 mg PO ONCE@1800 ONE Stop: 01/17/18 18:01 CBC, BMP 01/16/18 07:10 01/16/18 07:10 INR, PTT INR 1.28 (0.83-1.09) H 01/17/18 07:30 Physical exam alert and awake S1 s2 irregular Lungs decreased Abd- soft, non tender No edema bishop + PLAN clinically stable Continue present care antibiotics-- per i/d MRSA precautions repeat cultures -ve Bishop catheter to be discontinued on Friday--- as per Daily out of bed to chair and physical therapy extra coumadin today Will follow Problem List - Problems (1) Anemia Code(s): D64.9 - ANEMIA, UNSPECIFIED (2) MRSA bacteremia Code(s): R78.81 - BACTEREMIA (3) Atrial fibrillation Code(s): I48.91 - UNSPECIFIED ATRIAL FIBRILLATION (4) Bishop catheter in place Code(s): Z92.89 - PERSONAL HISTORY OF OTHER MEDICAL TREATMENT (5) HTN (hypertension) Code(s): I10 - ESSENTIAL (PRIMARY) HYPERTENSION
[2018-01-17] MEDS: VANCOMYCIN 1,250 MG in DEXTROSE 5%-WATER - 250 ML IVPB SCH (17:34)
[2018-01-17] MEDS: WARFARIN NA 2 MG TABLET (UD) PO SCH (17:35)
[2018-01-17] MEDS ORDERED: PT OWN MED DRAWER 7, Y5N ONE (17:40)
[2018-01-17] MEDS ORDERED: WARFARIN NA 2 MG TABLET (UD) PO ONE (18:00)
--- NOTE | 2018-01-17 18:04 | PN ---
Progress Note, Physician - Current Medication List Current Medications: Active Medications Acetaminophen (Tylenol -) 650 mg PO Q6HPO [facility] Last Admin: 01/17/18 17:34 Dose: 650 mg Aspirin (Asa -) 81 mg PO DAILY [facility] Last Admin: 01/17/18 10:32 Dose: 81 mg Atorvastatin Calcium (Lipitor -) 20 mg PO HS [facility] Last Admin: 01/16/18 21:15 Dose: 20 mg Clopidogrel Bisulfate (Plavix -) 75 mg PO DAILY [facility] Last Admin: 01/17/18 10:31 Dose: 75 mg Ferrous Sulfate (Feosol -) 325 mg PO BID [facility] Last Admin: 01/17/18 10:32 Dose: 325 mg Folic Acid (Folic Acid -) 1 mg PO DAILY [facility] Last Admin: 01/17/18 10:32 Dose: 1 mg Furosemide (Lasix -) 20 mg PO DAILY [facility] Last Admin: 01/17/18 10:32 Dose: 20 mg Vancomycin HCl 1,250 mg/ (Dextrose) 250 mls @ 250 mls/2 hr IVPB DAILY@1800 [facility] ; Protocol Last Admin: 01/17/18 17:34 Dose: 250 mls/2 hr Piperacillin Sod/Tazobactam (Sod 3.375 gm/ Dextrose) 50 mls @ 100 mls/hr IVPB Q8H-IV [facility]; Protocol Last Admin: 01/17/18 17:35 Dose: 100 mls/hr Isosorbide Mononitrate (Imdur -) 30 mg PO DAILY [facility] Last Admin: 01/17/18 10:32 Dose: 30 mg Lidocaine HCl (Xylocaine 2% Jelly) 1 applic TP BID PRN PRN Reason: MODERATE PAIN Last Admin: 01/16/18 21:15 Dose: 1 applic Lisinopril (Prinivil) 5 mg PO DAILY [facility] Last Admin: 01/17/18 10:32 Dose: 5 mg Pantoprazole Sodium (Protonix -) 40 mg PO DAILY [facility] Last Admin: 01/17/18 10:32 Dose: 40 mg Polyethylene Glycol (Miralax (For Daily Use) -) 17 gm PO DAILY [facility] Last Admin: 01/17/18 10:33 Dose: 17 gm Senna (Senna -) 2 tab PO HS PRN PRN Reason: CONSTIPATION Last Admin: 01/12/18 22:42 Dose: 2 tab Sodium Chloride ([place] Nasal [place] -) 2 spray NS BID PRN PRN Reason: NASAL CONGESTION Last Admin: 01/17/18 10:32 Dose: 2 spray Tamsulosin HCl (Flomax -) 0.8 mg PO DAILY@0830 [facility] Last Admin: 01/17/18 08:30 Dose: 0.8 mg Tramadol HCl (Ultram -) 50 mg PO Q12H PRN PRN Reason: BACK PAIN Last Admin: 01/16/18 18:01 Dose: 50 mg Warfarin Sodium (Coumadin -) 4 mg PO DAILY@1800 [facility] Last Admin: 01/17/18 17:35 Dose: 4 mg Warfarin Sodium (Coumadin -) 4 mg PO ONCE@1800 ONE Stop: 01/17/18 18:01 Last Admin: 01/17/18 17:34 Dose: 4 mg - Objective Vital Signs: Vital Signs Temperature 98.6 F 01/17/18 14:36 Pulse Rate 78 01/17/18 14:36 Respiratory Rate 20 01/17/18 14:36 Blood Pressure 108/70 01/17/18 14:36 O2 Sat by Pulse Oximetry (%) 98 01/17/18 09:00 Labs: CBC, BMP 01/16/18 07:10 01/16/18 07:10 INR, PTT INR 1.28 (0.83-1.09) H 01/17/18 07:30 Assessment/Plan 77 year old male with PMH of HTN, HLD, CAD (s/p stents), prostate CA, urethral stricture (catheter in place) admitted because of weakness and inability to stand and with swelling of b/l Knees, fever, and leukocytosis MRSA Bacteremia Polymicrobial UTI/bishop catheter Knee Swelling s/p aspiration -- cont. Zosyn, Vancomycin -- follow up Vancomycin trough prior to today's dose, monitor renal function -- Joint Aspirate cultures - no growth thus far -- latest Blood cultures neg. -- Still with mild Rt knee swelling/tenderness -- for possible removal of bishop on Friday fever/leukocytosis resolved continue monitor
--- NOTE | 2018-01-17 19:20 | PN ---
Progress Note (short form) - Note Progress Note: Ortho Pt seen and examined b/l knee djd improving, MRSA + BC, UC + Selected Entries 01/17/18 14:36 Temperature 98.6 F Pulse Rate 78 Respiratory 20 Rate Blood Pressure 108/70 Laboratory Tests 01/16/18 07:10 WBC 7.9 Hgb 10.0 L Hct 30.9 L Plt Count 329 decr swelling, no erythema, incr rom, nvi a/p cultures neg abx as per ID for UTI and + BC PT wbat Orthopedically stable- re-consult prn d/w Dr. Clemens
[2018-01-17] MEDS: traMADol HCL 50 MG TABLET PO PRN (22:17)
[2018-01-17] MEDS: ATORVASTATIN CA 20 MG TABLET (FP) PO SCH (22:18)
[2018-01-18] MEDS: PIPERACILLIN/TAZOB 3.375 GM 3.375 GM in DEXTROSE 5%-WATER - 50 ML IVPB SCH ×3 (01:05→18:34)
[2018-01-18] MEDS: ACETAMINOPHEN 325 MG TABLET (FP) PO SCH ×4 (01:09→18:33)
--- NOTE | 2018-01-18 08:34 | PN ---
Progress Note, Physician Chief Complaint: Pt A&Ox3; no chest pain or dyspnea; knee pain is intermittent. History of Present Illness: The patient is a 77 year old white man (rajiv Owusu) with a significant past medical history of HTN, HLD, CAD (s/p stents), diastolic CHF, prostate CA, urethral stricture (catheter in place) who presents to the ER with difficulty ranging his legs today. The patient states he noticed significant swelling, redness, and warmth to the bilateral knees. Patient reports he needed assistance to ambulate today, which is new for him. Patient states he was discharged from rehab four days ago and was ambulating appropriately until today. Patient has not eaten today as he is experiencing mild nausea. Patient denies taking any of his medications today. 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 Patient has his catheter in place and draining urine appropriately. Patient has a fever of 100.1 here in the ER. - Current Medication List Current Medications: Active Medications Acetaminophen (Tylenol -) 650 mg PO Q6HPO [facility] Last Admin: 01/18/18 06:12 Dose: 650 mg Aspirin (Asa -) 81 mg PO DAILY [facility] Last Admin: 01/17/18 10:32 Dose: 81 mg Atorvastatin Calcium (Lipitor -) 20 mg PO HS [facility] Last Admin: 01/17/18 22:18 Dose: 20 mg Clopidogrel Bisulfate (Plavix -) 75 mg PO DAILY [facility] Last Admin: 01/17/18 10:31 Dose: 75 mg Ferrous Sulfate (Feosol -) 325 mg PO BID [facility] Last Admin: 01/17/18 22:18 Dose: 325 mg Folic Acid (Folic Acid -) 1 mg PO DAILY [facility] Last Admin: 01/17/18 10:32 Dose: 1 mg Furosemide (Lasix -) 20 mg PO DAILY [facility] Last Admin: 01/17/18 10:32 Dose: 20 mg Vancomycin HCl 1,250 mg/ (Dextrose) 250 mls @ 250 mls/2 hr IVPB DAILY@1800 [facility] ; Protocol Last Admin: 01/17/18 17:34 Dose: 250 mls/2 hr Piperacillin Sod/Tazobactam (Sod 3.375 gm/ Dextrose) 50 mls @ 100 mls/hr IVPB Q8H-IV [facility]; Protocol Last Admin: 01/18/18 01:05 Dose: 100 mls/hr Isosorbide Mononitrate (Imdur -) 30 mg PO DAILY [facility] Last Admin: 01/17/18 10:32 Dose: 30 mg Lidocaine HCl (Xylocaine 2% Jelly) 1 applic TP BID PRN PRN Reason: MODERATE PAIN Last Admin: 01/16/18 21:15 Dose: 1 applic Lisinopril (Prinivil) 5 mg PO DAILY [facility] Last Admin: 01/17/18 10:32 Dose: 5 mg Pantoprazole Sodium (Protonix -) 40 mg PO DAILY [facility] Last Admin: 01/17/18 10:32 Dose: 40 mg Polyethylene Glycol (Miralax (For Daily Use) -) 17 gm PO DAILY [facility] Last Admin: 01/17/18 10:33 Dose: 17 gm Senna (Senna -) 2 tab PO HS PRN PRN Reason: CONSTIPATION Last Admin: 01/12/18 22:42 Dose: 2 tab Sodium Chloride ([place] Nasal [place] -) 2 spray NS BID PRN PRN Reason: NASAL CONGESTION Last Admin: 01/17/18 10:32 Dose: 2 spray Tamsulosin HCl (Flomax -) 0.8 mg PO DAILY@0830 [facility] Last Admin: 01/17/18 08:30 Dose: 0.8 mg Tramadol HCl (Ultram -) 50 mg PO Q12H PRN PRN Reason: BACK PAIN Last Admin: 01/17/18 22:17 Dose: 50 mg Warfarin Sodium (Coumadin -) 4 mg PO DAILY@1800 [facility] Last Admin: 01/17/18 17:35 Dose: 4 mg - Objective Vital Signs: Vital Signs Temperature 98.3 F 01/18/18 06:08 Pulse Rate 67 01/18/18 06:08 Respiratory Rate 20 01/18/18 06:08 Blood Pressure 119/65 01/18/18 06:08 O2 Sat by Pulse Oximetry (%) 96 01/17/18 21:00 Constitutional: Yes: No Distress Eyes: Yes: WNL HENT: Yes: WNL Neck: Yes: WNL Cardiovascular: Yes: Murmur, S1, S2 Respiratory: Yes: Regular Gastrointestinal: Yes: Soft ...Rectal Exam: Yes: Deferred Genitourinary: No: Anuria Musculoskeletal: Yes: Joint Stiffness, Muscle Weakness Extremities: Yes: Cool Edema: No Peripheral Pulses WNL: Yes Integumentary: Yes: WNL Neurological: Yes: WNL Psychiatric: Yes: WNL Labs: CBC, BMP 01/16/18 07:10 01/16/18 07:10 INR, PTT INR 1.28 (0.83-1.09) H 01/17/18 07:30 Problem List - Problems (1) MRSA bacteremia Assessment/Plan: febrile episodes; initially leukocytotic. antipyretics (avoid non-aspirin NSAIDs). antibiotics per ID Code(s): R78.81 - BACTEREMIA (2) UTI (urinary tract infection) Code(s): N39.0 - URINARY TRACT INFECTION, SITE NOT SPECIFIED (3) Acute on chronic systolic (congestive) heart failure Assessment/Plan: On lisinopril. Furosemide prn. F/u Is and Os, daily weight, BUN/Cr, electrolytes. Code(s): I50.23 - ACUTE ON CHRONIC SYSTOLIC (CONGESTIVE) HEART FAILURE (4) Anxiety Code(s): F41.9 - ANXIETY DISORDER, UNSPECIFIED (5) Atrial fibrillation Assessment/Plan: 90 mg bid Lovenox until INR 2-3 with warfarin. Code(s): I48.91 - UNSPECIFIED ATRIAL FIBRILLATION (6) Chronic lower back pain Code(s): M54.5 - LOW BACK PAIN; G89.29 - OTHER CHRONIC PAIN (7) [place] catheter in place Code(s): Z92.89 - PERSONAL HISTORY OF OTHER MEDICAL TREATMENT (8) HTN (hypertension) Code(s): I10 - ESSENTIAL (PRIMARY) HYPERTENSION (9) Hematuria Code(s): R31.9 - HEMATURIA, UNSPECIFIED Qualifiers: Hematuria type: gross Qualified Code(s): R31.0 - Gross hematuria (10) Hyperlipidemia Code(s): E78.5 - HYPERLIPIDEMIA, UNSPECIFIED (11) Obesity Code(s): E66.9 - OBESITY, UNSPECIFIED (12) Urinary retention Code(s): R33.9 - RETENTION OF URINE, UNSPECIFIED (13) ASHD (arteriosclerotic heart disease) Code(s): I25.10 - ATHSCL HEART DISEASE OF [place] CORONARY ARTERY W/O ANG PCTRS (14) Anemia Code(s): D64.9 - ANEMIA, UNSPECIFIED
[2018-01-18] MEDS ORDERED: PT OWN MED DRAWER 7, Y5N ONE (09:28)
[2018-01-18] MEDS ORDERED: DEXTROSE 5%-WATER - 50 ML IVPB ONE ×2 (09:29→17:03)
[2018-01-18] MEDS ORDERED: PIPERACILLIN/TAZOBACTAM 3.375 GM VIAL IVPB ONE ×2 (09:29→17:03)
[2018-01-18] MEDS: ASPIRIN 81 MG CHEWABLE TABLETS PO SCH (09:48)
[2018-01-18] MEDS: TAMSULOSIN HCL 0.4 MG CAP PO SCH (09:48)
[2018-01-18] MEDS: ISOSORBIDE MONONITRATE 30 MG TAB.SR.24H (FP) PO SCH (09:48)
[2018-01-18] MEDS: FUROSEMIDE 20 MG TABLET (FP) PO SCH (09:48)
[2018-01-18] MEDS: FOLIC ACID 1 MG TABLET (FP) PO SCH (09:48)
[2018-01-18] MEDS: FERROUS SO4 325 MG TABLET (FP) PO SCH ×2 (09:48→22:52)
[2018-01-18] MEDS: CLOPIDOGREL BISULFATE 75 MG TABLET (FP) PO SCH (09:48)
[2018-01-18] MEDS: ENOXAPARIN NA (PORCINE) 100 MG/1 ML DISP.SYRIN SQ SCH ×2 (09:49→22:52)
[2018-01-18] MEDS: PANTOPRAZOLE 40 MG TABLET (FP) PO SCH (09:49)
[2018-01-18] MEDS: SODIUM CHLORIDE NASAL SPRAY 44 ML BOTTLE NS PRN (09:49)
[2018-01-18] MEDS: LIDOCAINE HCL 2% JELLY (5 ML/TUBE) TP PRN (09:50)
[2018-01-18] MEDS: POLYETHYLENE GLYCOL 3350 119 GM BTL PO SCH (09:51)
--- NOTE | 2018-01-18 12:35 | PN ---
Progress Note, Physician History of Present Illness: Pt without new complaints. Still with some pain in Rt knee but improved. Remains afebrile. - Current Medication List Current Medications: Active Medications Acetaminophen (Tylenol -) 650 mg PO Q6HPO [facility] Last Admin: 01/18/18 06:12 Dose: 650 mg Aspirin (Asa -) 81 mg PO DAILY [facility] Last Admin: 01/18/18 09:48 Dose: 81 mg Atorvastatin Calcium (Lipitor -) 20 mg PO HS [facility] Last Admin: 01/17/18 22:18 Dose: 20 mg Clopidogrel Bisulfate (Plavix -) 75 mg PO DAILY [facility] Last Admin: 01/18/18 09:48 Dose: 75 mg Enoxaparin Sodium (Lovenox -) 90 mg SQ BID [facility] Last Admin: 01/18/18 09:49 Dose: 90 mg Ferrous Sulfate (Feosol -) 325 mg PO BID [facility] Last Admin: 01/18/18 09:48 Dose: 325 mg Folic Acid (Folic Acid -) 1 mg PO DAILY [facility] Last Admin: 01/18/18 09:48 Dose: 1 mg Furosemide (Lasix -) 20 mg PO DAILY [facility] Last Admin: 01/18/18 09:48 Dose: 20 mg Piperacillin Sod/Tazobactam (Sod 3.375 gm/ Dextrose) 50 mls @ 100 mls/hr IVPB Q8H-IV [facility]; Protocol Last Admin: 01/18/18 09:49 Dose: 100 mls/hr Vancomycin HCl 1,000 mg/ (Dextrose) 250 mls @ 166.667 mls/hr IVPB Q12H [facility]; Protocol Isosorbide Mononitrate (Imdur -) 30 mg PO DAILY [facility] Last Admin: 01/18/18 09:48 Dose: 30 mg Lidocaine HCl (Xylocaine 2% Jelly) 1 applic TP BID PRN PRN Reason: MODERATE PAIN Last Admin: 01/18/18 09:50 Dose: 1 applic Lisinopril (Prinivil) 5 mg PO DAILY [facility] Last Admin: 01/17/18 10:32 Dose: 5 mg Pantoprazole Sodium (Protonix -) 40 mg PO DAILY [facility] Last Admin: 01/18/18 09:49 Dose: 40 mg Polyethylene Glycol (Miralax (For Daily Use) -) 17 gm PO DAILY [facility] Last Admin: 01/18/18 09:51 Dose: 17 gm Senna (Senna -) 2 tab PO HS PRN PRN Reason: CONSTIPATION Last Admin: 01/12/18 22:42 Dose: 2 tab Sodium Chloride ([place] Nasal [place] -) 2 spray NS BID PRN PRN Reason: NASAL CONGESTION Last Admin: 01/18/18 09:49 Dose: 2 spray Tamsulosin HCl (Flomax -) 0.8 mg PO DAILY@0830 [facility] Last Admin: 01/18/18 09:48 Dose: 0.8 mg Tramadol HCl (Ultram -) 50 mg PO Q12H PRN PRN Reason: BACK PAIN Last Admin: 01/17/18 22:17 Dose: 50 mg Warfarin Sodium (Coumadin -) 4 mg PO DAILY@1800 [facility] Last Admin: 01/17/18 17:35 Dose: 4 mg - Objective Vital Signs: Vital Signs Temperature 98.3 F 01/18/18 06:08 Pulse Rate 67 01/18/18 06:08 Respiratory Rate 20 01/18/18 06:08 Blood Pressure 119/65 01/18/18 06:08 O2 Sat by Pulse Oximetry (%) 96 01/17/18 21:00 Constitutional: Yes: No Distress, Calm Cardiovascular: Yes: Regular Rate and Rhythm Respiratory: Yes: Regular Gastrointestinal: Yes: Normal Bowel Sounds, Soft Genitourinary: Yes: Bishop Present Musculoskeletal: Yes: Joint Swelling (mild Rt knee swelling, no erythema or warmth) Extremities: Yes: WNL Labs: CBC, BMP 01/16/18 07:10 01/16/18 07:10 INR, PTT INR 1.28 (0.83-1.09) H 01/17/18 07:30 Problem List - Problems (1) ASHD (arteriosclerotic heart disease) Code(s): I25.10 - ATHSCL HEART DISEASE OF [place] CORONARY ARTERY W/O ANG PCTRS (2) MRSA bacteremia Code(s): R78.81 - BACTEREMIA (3) UTI (urinary tract infection) Code(s): N39.0 - URINARY TRACT INFECTION, SITE NOT SPECIFIED (4) Atrial fibrillation Code(s): I48.91 - UNSPECIFIED ATRIAL FIBRILLATION (5) Bishop catheter in place Code(s): Z92.89 - PERSONAL HISTORY OF OTHER MEDICAL TREATMENT (6) HTN (hypertension) Code(s): I10 - ESSENTIAL (PRIMARY) HYPERTENSION (7) Hematuria Code(s): R31.9 - HEMATURIA, UNSPECIFIED Qualifiers: Hematuria type: gross Qualified Code(s): R31.0 - Gross hematuria (8) Urinary retention Code(s): R33.9 - RETENTION OF URINE, UNSPECIFIED Assessment/Plan 77 year old male with PMH of HTN, HLD, CAD (s/p stents), prostate CA, urethral stricture (catheter in place) admitted because of weakness and inability to stand and with swelling of b/l Knees, fever, and leukocytosis MRSA Bacteremia Polymicrobial UTI/bishop catheter Knee Swelling s/p aspiration -- cont. Zosyn, Vancomycin -- Vancomycin level noted, dose adjusted -- latest Blood cultures neg. -- Still with mild Rt knee swelling/tenderness but improved -- for possible removal of bishop on Friday
[2018-01-18] MEDS: LISINOPRIL 5 MG TABLET (FP) PO SCH (12:40)
[2018-01-18] MEDS: VANCOMYCIN 1 GM PREMIX - 1 GM/200 ML BAG IVPB SCH ×2 (14:57→17:26)
--- NOTE | 2018-01-18 15:09 | PN ---
Progress Note (short form) - Note Progress Note: pt comfortable no complains all f/u noted/ appreciated denies pain afebrile Vital Signs Temp 98 F 01/18/18 09:00 Pulse 71 01/18/18 12:00 Resp 20 01/18/18 09:00 BP 114/60 01/18/18 12:00 Pulse Ox 96 01/18/18 09:00 Intake & Output 01/17/18 01/18/18 01/18/18 23:59 11:59 23:59 Intake Total 1055 300 Output Total 1600 1000 Balance -545 -700 Intake: IVPB 350 50 Oral 705 250 Output: Urine 1600 1000 Bishop 1600 1000 Other: Voiding Method Indwelling Catheter Indwelling Catheter Bowel Movement No No Active Medications Acetaminophen (Tylenol -) 650 mg PO Q6HPO [facility] Last Admin: 01/18/18 12:40 Dose: 650 mg Aspirin (Asa -) 81 mg PO DAILY [facility] Last Admin: 01/18/18 09:48 Dose: 81 mg Atorvastatin Calcium (Lipitor -) 20 mg PO HS [facility] Last Admin: 01/17/18 22:18 Dose: 20 mg Clopidogrel Bisulfate (Plavix -) 75 mg PO DAILY [facility] Last Admin: 01/18/18 09:48 Dose: 75 mg Enoxaparin Sodium (Lovenox -) 90 mg SQ BID [facility] Last Admin: 01/18/18 09:49 Dose: 90 mg Ferrous Sulfate (Feosol -) 325 mg PO BID [facility] Last Admin: 01/18/18 09:48 Dose: 325 mg Folic Acid (Folic Acid -) 1 mg PO DAILY [facility] Last Admin: 01/18/18 09:48 Dose: 1 mg Furosemide (Lasix -) 20 mg PO DAILY [facility] Last Admin: 01/18/18 09:48 Dose: 20 mg Piperacillin Sod/Tazobactam (Sod 3.375 gm/ Dextrose) 50 mls @ 100 mls/hr IVPB Q8H-IV [facility]; Protocol Last Admin: 01/18/18 09:49 Dose: 100 mls/hr Vancomycin HCl (Vancomycin 1 Gm Premix -) 1 gm in 200 mls @ 166.667 mls/hr IVPB BID@0600,1800 [facility]; Protocol Last Admin: 01/18/18 14:57 Dose: 166.667 mls/hr Isosorbide Mononitrate (Imdur -) 30 mg PO DAILY [facility] Last Admin: 01/18/18 09:48 Dose: 30 mg Lidocaine HCl (Xylocaine 2% Jelly) 1 applic TP BID PRN PRN Reason: MODERATE PAIN Last Admin: 01/18/18 09:50 Dose: 1 applic Lisinopril (Prinivil) 5 mg PO DAILY [facility] Last Admin: 01/18/18 12:40 Dose: 5 mg Pantoprazole Sodium (Protonix -) 40 mg PO DAILY [facility] Last Admin: 01/18/18 09:49 Dose: 40 mg Polyethylene Glycol (Miralax (For Daily Use) -) 17 gm PO DAILY [facility] Last Admin: 01/18/18 09:51 Dose: 17 gm Senna (Senna -) 2 tab PO HS PRN PRN Reason: CONSTIPATION Last Admin: 01/12/18 22:42 Dose: 2 tab Sodium Chloride ([place] Nasal [place] -) 2 spray NS BID PRN PRN Reason: NASAL CONGESTION Last Admin: 01/18/18 09:49 Dose: 2 spray Tamsulosin HCl (Flomax -) 0.8 mg PO DAILY@0830 [facility] Last Admin: 01/18/18 09:48 Dose: 0.8 mg Tramadol HCl (Ultram -) 50 mg PO Q12H PRN PRN Reason: BACK PAIN Last Admin: 01/17/18 22:17 Dose: 50 mg Warfarin Sodium (Coumadin -) 4 mg PO DAILY@1800 [facility] Last Admin: 01/17/18 17:35 Dose: 4 mg CBC, BMP 01/16/18 07:10 01/16/18 07:10 INR, PTT INR 1.28 (0.83-1.09) H 01/17/18 07:30 Physical exam alert and awake S1 s2 irregular Lungs decreased Abd- soft, non tender No edema bishop + PLAN clinically stable Continue present care antibiotics-- per i/d MRSA precautions repeat cultures -ve Bishop catheter to be discontinued on Friday--- as per Daily out of bed to chair and physical therapy Check inr Will follow discussed with nursing staff Problem List - Problems (1) Anemia Code(s): D64.9 - ANEMIA, UNSPECIFIED (2) MRSA bacteremia Code(s): R78.81 - BACTEREMIA (3) Atrial fibrillation Code(s): I48.91 - UNSPECIFIED ATRIAL FIBRILLATION (4) Bishop catheter in place Code(s): Z92.89 - PERSONAL HISTORY OF OTHER MEDICAL TREATMENT (5) HTN (hypertension) Code(s): I10 - ESSENTIAL (PRIMARY) HYPERTENSION
[2018-01-18 16:48] LABS: INR 1.93 (0.83-1.09); PROTHROMBIN TIME (PATIENT) 22.9 SEC (9.7-13.0)
[2018-01-18] MEDS: WARFARIN NA 2 MG TABLET (UD) PO SCH (18:33)
[2018-01-18] MEDS: traMADol HCL 50 MG TABLET PO PRN (22:50)
[2018-01-18] MEDS: ATORVASTATIN CA 20 MG TABLET (FP) PO SCH (22:52)
[2018-01-19] MEDS: ACETAMINOPHEN 325 MG TABLET (FP) PO SCH ×4 (00:04→18:14)
[2018-01-19] MEDS: MELATONIN 5 MG TABLETS PO PRN (00:04)
[2018-01-19] MEDS ORDERED: PIPERACILLIN/TAZOBACTAM 3.375 GM VIAL IVPB ONE ×2 (00:53→11:41)
[2018-01-19] MEDS ORDERED: DEXTROSE 5%-WATER - 50 ML IVPB ONE ×2 (00:53→11:41)
[2018-01-19] MEDS: PIPERACILLIN/TAZOB 3.375 GM 3.375 GM in DEXTROSE 5%-WATER - 50 ML IVPB SCH ×3 (02:17→18:30)
[2018-01-19] MEDS: VANCOMYCIN 1 GM PREMIX - 1 GM/200 ML BAG IVPB SCH ×2 (06:14→18:14)
[2018-01-19 08:28] LABS: INR 2.04 (0.83-1.09); PROTHROMBIN TIME (PATIENT) 24.2 SEC (9.7-13.0)
--- NOTE | 2018-01-19 10:51 | PN ---
Progress Note (short form) - Note Progress Note: pt comfortable no new issues-- except chronic reddness/ itching on left foot denies cp/sob/ abd pain denies fever/ chills. repeat cultures -ve so far. Vital Signs Temp 98.3 F 01/19/18 06:00 Pulse 48 L 01/19/18 06:00 Resp 18 01/19/18 06:00 BP 116/51 L 01/19/18 06:00 Pulse Ox 97 01/18/18 21:00 Intake & Output 01/18/18 01/18/18 01/19/18 11:59 23:59 11:59 Intake Total 300 300 Output Total 1000 1300 600 Balance -700 -1000 -600 Intake: IVPB 50 300 Oral 250 Output: Urine 1000 1300 600 Bishop 1000 1300 600 Other: Voiding Method Indwelling Catheter Incontinent Bowel Movement No Yes Active Medications Acetaminophen (Tylenol -) 650 mg PO Q6HPO [facility] Last Admin: 01/19/18 06:14 Dose: 650 mg Aspirin (Asa -) 81 mg PO DAILY [facility] Last Admin: 01/18/18 09:48 Dose: 81 mg Atorvastatin Calcium (Lipitor -) 20 mg PO HS [facility] Last Admin: 01/18/18 22:52 Dose: 20 mg Clopidogrel Bisulfate (Plavix -) 75 mg PO DAILY [facility] Last Admin: 01/18/18 09:48 Dose: 75 mg Enoxaparin Sodium (Lovenox -) 90 mg SQ BID [facility] Last Admin: 01/18/18 22:52 Dose: 90 mg Ferrous Sulfate (Feosol -) 325 mg PO BID [facility] Last Admin: 01/18/18 22:52 Dose: 325 mg Folic Acid (Folic Acid -) 1 mg PO DAILY [facility] Last Admin: 01/18/18 09:48 Dose: 1 mg Furosemide (Lasix -) 20 mg PO DAILY [facility] Last Admin: 01/18/18 09:48 Dose: 20 mg Piperacillin Sod/Tazobactam (Sod 3.375 gm/ Dextrose) 50 mls @ 100 mls/hr IVPB Q8H-IV [facility]; Protocol Last Admin: 01/19/18 02:17 Dose: 100 mls/hr Vancomycin HCl (Vancomycin 1 Gm Premix -) 1 gm in 200 mls @ 166.667 mls/hr IVPB BID@0600,1800 [facility]; Protocol Last Admin: 01/19/18 06:14 Dose: 166.667 mls/hr Isosorbide Mononitrate (Imdur -) 30 mg PO DAILY [facility] Last Admin: 01/18/18 09:48 Dose: 30 mg Lidocaine HCl (Xylocaine 2% Jelly) 1 applic TP BID PRN PRN Reason: MODERATE PAIN Last Admin: 01/18/18 09:50 Dose: 1 applic Lisinopril (Prinivil) 5 mg PO DAILY [facility] Last Admin: 01/18/18 12:40 Dose: 5 mg Melatonin (Melatonin) 5 mg PO HS PRN PRN Reason: INSOMNIA Last Admin: 01/19/18 00:04 Dose: 5 mg Pantoprazole Sodium (Protonix -) 40 mg PO DAILY [facility] Last Admin: 01/18/18 09:49 Dose: 40 mg Polyethylene Glycol (Miralax (For Daily Use) -) 17 gm PO DAILY [facility] Last Admin: 01/18/18 09:51 Dose: 17 gm Senna (Senna -) 2 tab PO HS PRN PRN Reason: CONSTIPATION Last Admin: 01/12/18 22:42 Dose: 2 tab Sodium Chloride ([place] Nasal [place] -) 2 spray NS BID PRN PRN Reason: NASAL CONGESTION Last Admin: 01/18/18 09:49 Dose: 2 spray Tamsulosin HCl (Flomax -) 0.8 mg PO DAILY@0830 [facility] Last Admin: 01/18/18 09:48 Dose: 0.8 mg Tramadol HCl (Ultram -) 50 mg PO Q12H PRN PRN Reason: BACK PAIN Last Admin: 01/18/18 22:50 Dose: 50 mg Warfarin Sodium (Coumadin -) 4 mg PO DAILY@1800 [facility] Last Admin: 01/18/18 18:33 Dose: 4 mg CBC, BMP 01/16/18 07:10 01/16/18 07:10 Microbiology 01/15/18 06:30 Blood Culture - Preliminary Blood - Peripheral Venous NO GROWTH OBTAINED AFTER 96 HOURS, INCUBATION TO CONTINUE FOR 1 DAYS. 01/15/18 06:30 Blood Culture - Preliminary Blood - Peripheral Venous NO GROWTH OBTAINED AFTER 96 HOURS, INCUBATION TO CONTINUE FOR 1 DAYS. INR, PTT INR 2.04 (0.83-1.09) H 01/19/18 07:30 Physical exam alert and awake S1 s2 irregular Lungs decreased Abd- soft, non tender No edema bishop + left foot-- mild superficial reddness + on dorsum of foot PLAN clinically stable Continue present care antibiotics-- per i/d-- discussed with i/d-- will need at least 2 weeks MRSA precautions repeat cultures -ve so far knee better physical therapy Bishop catheter to be discontinued on Friday--- as per -- gu to follow Daily out of bed to chair and physical therapy coumadin per inr Will follow discussed with nursing staff. d/c planning . Problem List - Problems (1) Anemia Code(s): D64.9 - ANEMIA, UNSPECIFIED (2) MRSA bacteremia Code(s): R78.81 - BACTEREMIA (3) Atrial fibrillation Code(s): I48.91 - UNSPECIFIED ATRIAL FIBRILLATION (4) Bishop catheter in place Code(s): Z92.89 - PERSONAL HISTORY OF OTHER MEDICAL TREATMENT (5) HTN (hypertension) Code(s): I10 - ESSENTIAL (PRIMARY) HYPERTENSION
--- NOTE | 2018-01-19 10:59 | PN ---
Progress Note, Physician History of Present Illness: patient doing well no complaints folyes in place still issues with walking knee joint better - Current Medication List Current Medications: Active Medications Acetaminophen (Tylenol -) 650 mg PO Q6HPO [facility] Last Admin: 01/19/18 06:14 Dose: 650 mg Aspirin (Asa -) 81 mg PO DAILY [facility] Last Admin: 01/18/18 09:48 Dose: 81 mg Atorvastatin Calcium (Lipitor -) 20 mg PO HS [facility] Last Admin: 01/18/18 22:52 Dose: 20 mg Clopidogrel Bisulfate (Plavix -) 75 mg PO DAILY [facility] Last Admin: 01/18/18 09:48 Dose: 75 mg Clotrimazole (Lotrimin 1% Solution -) 1 applic TP BID [facility] Enoxaparin Sodium (Lovenox -) 90 mg SQ BID [facility] Last Admin: 01/18/18 22:52 Dose: 90 mg Ferrous Sulfate (Feosol -) 325 mg PO BID [facility] Last Admin: 01/18/18 22:52 Dose: 325 mg Folic Acid (Folic Acid -) 1 mg PO DAILY [facility] Last Admin: 01/18/18 09:48 Dose: 1 mg Furosemide (Lasix -) 20 mg PO DAILY [facility] Last Admin: 01/18/18 09:48 Dose: 20 mg Piperacillin Sod/Tazobactam (Sod 3.375 gm/ Dextrose) 50 mls @ 100 mls/hr IVPB Q8H-IV [facility]; Protocol Last Admin: 01/19/18 02:17 Dose: 100 mls/hr Vancomycin HCl (Vancomycin 1 Gm Premix -) 1 gm in 200 mls @ 166.667 mls/hr IVPB BID@0600,1800 [facility]; Protocol Last Admin: 01/19/18 06:14 Dose: 166.667 mls/hr Isosorbide Mononitrate (Imdur -) 30 mg PO DAILY [facility] Last Admin: 01/18/18 09:48 Dose: 30 mg Lidocaine HCl (Xylocaine 2% Jelly) 1 applic TP BID PRN PRN Reason: MODERATE PAIN Last Admin: 01/18/18 09:50 Dose: 1 applic Lisinopril (Prinivil) 5 mg PO DAILY [facility] Last Admin: 01/18/18 12:40 Dose: 5 mg Melatonin (Melatonin) 5 mg PO HS PRN PRN Reason: INSOMNIA Last Admin: 01/19/18 00:04 Dose: 5 mg Pantoprazole Sodium (Protonix -) 40 mg PO DAILY [facility] Last Admin: 01/18/18 09:49 Dose: 40 mg Polyethylene Glycol (Miralax (For Daily Use) -) 17 gm PO DAILY [facility] Last Admin: 01/18/18 09:51 Dose: 17 gm Senna (Senna -) 2 tab PO HS PRN PRN Reason: CONSTIPATION Last Admin: 01/12/18 22:42 Dose: 2 tab Sodium Chloride ([place] Nasal [place] -) 2 spray NS BID PRN PRN Reason: NASAL CONGESTION Last Admin: 01/18/18 09:49 Dose: 2 spray Tamsulosin HCl (Flomax -) 0.8 mg PO DAILY@0830 [facility] Last Admin: 01/18/18 09:48 Dose: 0.8 mg Tramadol HCl (Ultram -) 50 mg PO Q12H PRN PRN Reason: BACK PAIN Last Admin: 01/18/18 22:50 Dose: 50 mg Warfarin Sodium (Coumadin -) 4 mg PO DAILY@1800 [facility] Last Admin: 01/18/18 18:33 Dose: 4 mg - Objective Vital Signs: Vital Signs Temperature 98.3 F 01/19/18 06:00 Pulse Rate 48 L 01/19/18 06:00 Respiratory Rate 18 01/19/18 06:00 Blood Pressure 116/51 L 01/19/18 06:00 O2 Sat by Pulse Oximetry (%) 97 01/18/18 21:00 Constitutional: Yes: No Distress, Calm Cardiovascular: Yes: Regular Rate and Rhythm Respiratory: Yes: Regular, CTA Bilaterally Gastrointestinal: Yes: Normal Bowel Sounds, Soft Genitourinary: Yes: [place] Present Musculoskeletal: Yes: WNL Extremities: Yes: Other Neurological: Yes: Alert, Oriented Labs: CBC, BMP 01/16/18 07:10 01/16/18 07:10 INR, PTT INR 2.04 (0.83-1.09) H 01/19/18 07:30 Assessment/Plan patient with multiple medical problems coming with weakness and knee joint swelling Problem List - Problems (1) Fever Code(s): R50.9 - FEVER, UNSPECIFIED (2) Supratherapeutic INR Code(s): R79.1 - ABNORMAL COAGULATION PROFILE (3) Anxiety Code(s): F41.9 - ANXIETY DISORDER, UNSPECIFIED (4) Atrial fibrillation Code(s): I48.91 - UNSPECIFIED ATRIAL FIBRILLATION (5) Chest pain Code(s): R07.9 - CHEST PAIN, UNSPECIFIED Qualifiers: Chest pain type: unspecified Qualified Code(s): R07.9 - Chest pain, unspecified (6) Banegas catheter in place Code(s): Z92.89 - PERSONAL HISTORY OF OTHER MEDICAL TREATMENT (7) HTN (hypertension) Code(s): I10 - ESSENTIAL (PRIMARY) HYPERTENSION (8) Hematuria Code(s): R31.9 - HEMATURIA, UNSPECIFIED Qualifiers: Hematuria type: gross Qualified Code(s): R31.0 - Gross hematuria (9) Hx of CABG Code(s): Z95.1 - PRESENCE OF AORTOCORONARY BYPASS GRAFT (10) Hyperlipidemia Code(s): E78.5 - HYPERLIPIDEMIA, UNSPECIFIED patient s/p arthrocentesis Assessment/Plan continue current mgmt will need abx for at least 2 weeks physio await for urology to see the patient
--- NOTE | 2018-01-19 11:01 | PN ---
Progress Note, Physician Chief Complaint: Pt A&Ox3; no chest pain or dyspnea. History of Present Illness: The patient is a 77 year old white man (rajiv Owusu) with a significant past medical history of HTN, HLD, CAD (s/p stents), diastolic CHF, prostate CA, urethral stricture (catheter in place) who presents to the ER with difficulty ranging his legs today. The patient states he noticed significant swelling, redness, and warmth to the bilateral knees. Patient reports he needed assistance to ambulate today, which is new for him. Patient states he was discharged from rehab four days ago and was ambulating appropriately until today. Patient has not eaten today as he is experiencing mild nausea. Patient denies taking any of his medications today. 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 Patient has his catheter in place and draining urine appropriately. Patient has a fever of 100.1 here in the ER. - Current Medication List Current Medications: Active Medications Acetaminophen (Tylenol -) 650 mg PO Q6HPO [facility] Last Admin: 01/19/18 06:14 Dose: 650 mg Aspirin (Asa -) 81 mg PO DAILY [facility] Last Admin: 01/18/18 09:48 Dose: 81 mg Atorvastatin Calcium (Lipitor -) 20 mg PO HS [facility] Last Admin: 01/18/18 22:52 Dose: 20 mg Clopidogrel Bisulfate (Plavix -) 75 mg PO DAILY [facility] Last Admin: 01/18/18 09:48 Dose: 75 mg Clotrimazole (Lotrimin 1% Solution -) 1 applic TP BID [facility] Enoxaparin Sodium (Lovenox -) 90 mg SQ BID [facility] Last Admin: 01/18/18 22:52 Dose: 90 mg Ferrous Sulfate (Feosol -) 325 mg PO BID [facility] Last Admin: 01/18/18 22:52 Dose: 325 mg Folic Acid (Folic Acid -) 1 mg PO DAILY [facility] Last Admin: 01/18/18 09:48 Dose: 1 mg Furosemide (Lasix -) 20 mg PO DAILY [facility] Last Admin: 01/18/18 09:48 Dose: 20 mg Piperacillin Sod/Tazobactam (Sod 3.375 gm/ Dextrose) 50 mls @ 100 mls/hr IVPB Q8H-IV [facility]; Protocol Last Admin: 01/19/18 02:17 Dose: 100 mls/hr Vancomycin HCl (Vancomycin 1 Gm Premix -) 1 gm in 200 mls @ 166.667 mls/hr IVPB BID@0600,1800 [facility]; Protocol Last Admin: 01/19/18 06:14 Dose: 166.667 mls/hr Isosorbide Mononitrate (Imdur -) 30 mg PO DAILY [facility] Last Admin: 01/18/18 09:48 Dose: 30 mg Lidocaine HCl (Xylocaine 2% Jelly) 1 applic TP BID PRN PRN Reason: MODERATE PAIN Last Admin: 01/18/18 09:50 Dose: 1 applic Lisinopril (Prinivil) 5 mg PO DAILY [facility] Last Admin: 01/18/18 12:40 Dose: 5 mg Melatonin (Melatonin) 5 mg PO HS PRN PRN Reason: INSOMNIA Last Admin: 01/19/18 00:04 Dose: 5 mg Pantoprazole Sodium (Protonix -) 40 mg PO DAILY [facility] Last Admin: 01/18/18 09:49 Dose: 40 mg Polyethylene Glycol (Miralax (For Daily Use) -) 17 gm PO DAILY [facility] Last Admin: 01/18/18 09:51 Dose: 17 gm Senna (Senna -) 2 tab PO HS PRN PRN Reason: CONSTIPATION Last Admin: 01/12/18 22:42 Dose: 2 tab Sodium Chloride ([place] Nasal [place] -) 2 spray NS BID PRN PRN Reason: NASAL CONGESTION Last Admin: 01/18/18 09:49 Dose: 2 spray Tamsulosin HCl (Flomax -) 0.8 mg PO DAILY@0830 [facility] Last Admin: 01/18/18 09:48 Dose: 0.8 mg Tramadol HCl (Ultram -) 50 mg PO Q12H PRN PRN Reason: BACK PAIN Last Admin: 01/18/18 22:50 Dose: 50 mg Warfarin Sodium (Coumadin -) 4 mg PO DAILY@1800 [facility] Last Admin: 01/18/18 18:33 Dose: 4 mg - Objective Vital Signs: Vital Signs Temperature 98.3 F 01/19/18 06:00 Pulse Rate 48 L 01/19/18 06:00 Respiratory Rate 18 01/19/18 06:00 Blood Pressure 116/51 L 01/19/18 06:00 O2 Sat by Pulse Oximetry (%) 97 01/18/18 21:00 Constitutional: Yes: No Distress Eyes: Yes: WNL HENT: Yes: WNL Neck: Yes: WNL Cardiovascular: Yes: Regular Rate and Rhythm Respiratory: Yes: Regular Gastrointestinal: Yes: Soft ...Rectal Exam: Yes: Deferred Genitourinary: No: Anuria Musculoskeletal: Yes: Joint Stiffness, Joint Swelling, Muscle Weakness Extremities: Yes: Cool Edema: No Peripheral Pulses WNL: Yes Integumentary: Yes: WNL Neurological: Yes: WNL Psychiatric: Yes: WNL Labs: CBC, BMP 01/16/18 07:10 01/16/18 07:10 INR, PTT INR 2.04 (0.83-1.09) H 01/19/18 07:30 Problem List - Problems (1) MRSA bacteremia Assessment/Plan: febrile episodes; initially leukocytotic. antipyretics (avoid non-aspirin NSAIDs). antibiotics per ID Code(s): R78.81 - BACTEREMIA (2) UTI (urinary tract infection) Code(s): N39.0 - URINARY TRACT INFECTION, SITE NOT SPECIFIED (3) Acute on chronic systolic (congestive) heart failure Assessment/Plan: On lisinopril. Furosemide prn. F/u Is and Os, daily weight, BUN/Cr, electrolytes. Code(s): I50.23 - ACUTE ON CHRONIC SYSTOLIC (CONGESTIVE) HEART FAILURE (4) Anxiety Code(s): F41.9 - ANXIETY DISORDER, UNSPECIFIED (5) Atrial fibrillation Assessment/Plan: 90 mg bid Lovenox until INR 2-3 with warfarin. Code(s): I48.91 - UNSPECIFIED ATRIAL FIBRILLATION (6) Chronic lower back pain Assessment/Plan: spinal studies pending. Code(s): M54.5 - LOW BACK PAIN; G89.29 - OTHER CHRONIC PAIN (7) Banegas catheter in place Code(s): Z92.89 - PERSONAL HISTORY OF OTHER MEDICAL TREATMENT (8) HTN (hypertension) Assessment/Plan: on lisinopril Code(s): I10 - ESSENTIAL (PRIMARY) HYPERTENSION (9) Hematuria Code(s): R31.9 - HEMATURIA, UNSPECIFIED Qualifiers: Hematuria type: gross Qualified Code(s): R31.0 - Gross hematuria (10) Hyperlipidemia Code(s): E78.5 - HYPERLIPIDEMIA, UNSPECIFIED (11) Obesity Code(s): E66.9 - OBESITY, UNSPECIFIED (12) Urinary retention Code(s): R33.9 - RETENTION OF URINE, UNSPECIFIED (13) ASHD (arteriosclerotic heart disease) Code(s): I25.10 - ATHSCL HEART DISEASE OF [place] CORONARY ARTERY W/O ANG PCTRS (14) Anemia Code(s): D64.9 - ANEMIA, UNSPECIFIED
[2018-01-19] MEDS ORDERED: PT OWN MED DRAWER 7, Y5N ONE ×2 (11:40→18:08)
[2018-01-19] MEDS: FOLIC ACID 1 MG TABLET (FP) PO SCH (11:48)
[2018-01-19] MEDS: TAMSULOSIN HCL 0.4 MG CAP PO SCH (11:48)
[2018-01-19] MEDS: FERROUS SO4 325 MG TABLET (FP) PO SCH ×2 (11:48→21:12)
[2018-01-19] MEDS: ASPIRIN 81 MG CHEWABLE TABLETS PO SCH (11:49)
[2018-01-19] MEDS: CLOPIDOGREL BISULFATE 75 MG TABLET (FP) PO SCH (11:49)
[2018-01-19] MEDS: FUROSEMIDE 20 MG TABLET (FP) PO SCH (11:49)
[2018-01-19] MEDS: ISOSORBIDE MONONITRATE 30 MG TAB.SR.24H (FP) PO SCH (11:49)
[2018-01-19] MEDS: PANTOPRAZOLE 40 MG TABLET (FP) PO SCH (11:49)
[2018-01-19] MEDS: LISINOPRIL 5 MG TABLET (FP) PO SCH (11:49)
[2018-01-19] MEDS: ENOXAPARIN NA (PORCINE) 100 MG/1 ML DISP.SYRIN SQ SCH (11:50)
[2018-01-19] MEDS: traMADol HCL 50 MG TABLET PO PRN ×2 (11:50→21:11)
[2018-01-19] MEDS: POLYETHYLENE GLYCOL 3350 119 GM BTL PO SCH (11:51)
[2018-01-19] MEDS: LIDOCAINE HCL 2% JELLY (5 ML/TUBE) TP PRN (11:52)
[2018-01-19] MEDS: SODIUM CHLORIDE NASAL SPRAY 44 ML BOTTLE NS PRN (11:53)
--- NOTE | 2018-01-19 12:10 | PN ---
Progress Note, Physician History of Present Illness: he patient is a 77 year old male with a significant past medical history of HTN , HLD, CAD (s/p stents), prostate CA, urethral stricture (catheter in place) who presents to the ER with difficulty ranging his legs today. The patient states he noticed significant swelling, redness, and warmth to the bilateral knees. Patient reports he needed assistance to ambulate today, which is new for him. Patient states he was discharged from rehab four days ago and was ambulating appropriately until today. Patient has not eaten today as he is experiencing mild nausea. Patient denies taking any of his medications today. 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 Patient has his catheter in place and draining urine appropriately. Patient has a fever of 100.1 here in the ER. The patient denies chest pain, shortness of breath, headache, and dizziness. Denies chills, vomit, diarrhea, and constipation. Allergies: strawberry, pepper, iohexol Past surgical history: stents Social history: No reported alcohol, drug, or cigarette use. H cabg lithotripsy prostate seeds Ongoing medical problems Afib diagnosed at the hospital during SFA CHAINER 08/2015 and has been on coumadin since then 2015 CAD Coronary artery bypass graft SANTIAGO of left SFA August 11, 2014 Dr. Blanton SANTIAGO of left PDA July 07, 2014 Dr. Blanton dizziness Hyperlipidemia Hypertension Negative MIBI stress test 2013 [place] [facility] NSVT Pauses PCI SANTIAGO of p LCx March 30, 2015 Dr. Blanton PCI LCx 08/17/12 [facility] PCI LCx 07/07/14 Dr. Blanton CHAINER/stent right SFA 526/16 DR BLANTON Right SFA 100 occlusion July 07, 2014 Dr. Blanton s/p CHAINER drug elluting balloon L SFA 2015 s/p CHAINER left SFA 09/25/17 for left foot ulcer s/p urethral stricture after cystoscopy and urethrotomy the patient went into septic shock and was treated with antibiotics and was stabilized. October 2017 - Current Medication List Current Medications: Active Medications Acetaminophen (Tylenol -) 650 mg PO Q6HPO [facility] Last Admin: 01/19/18 11:50 Dose: 650 mg Aspirin (Asa -) 81 mg PO DAILY [facility] Last Admin: 01/19/18 11:49 Dose: 81 mg Atorvastatin Calcium (Lipitor -) 20 mg PO HS [facility] Last Admin: 01/18/18 22:52 Dose: 20 mg Clopidogrel Bisulfate (Plavix -) 75 mg PO DAILY [facility] Last Admin: 01/19/18 11:49 Dose: 75 mg Clotrimazole (Lotrimin 1% Solution -) 1 applic TP BID [facility] Enoxaparin Sodium (Lovenox -) 90 mg SQ BID [facility] Last Admin: 01/19/18 11:50 Dose: 90 mg Ferrous Sulfate (Feosol -) 325 mg PO BID [facility] Last Admin: 01/19/18 11:48 Dose: 325 mg Folic Acid (Folic Acid -) 1 mg PO DAILY [facility] Last Admin: 01/19/18 11:48 Dose: 1 mg Furosemide (Lasix -) 20 mg PO DAILY [facility] Last Admin: 01/19/18 11:49 Dose: 20 mg Piperacillin Sod/Tazobactam (Sod 3.375 gm/ Dextrose) 50 mls @ 100 mls/hr IVPB Q8H-IV [facility]; Protocol Last Admin: 01/19/18 11:53 Dose: 100 mls/hr Vancomycin HCl (Vancomycin 1 Gm Premix -) 1 gm in 200 mls @ 166.667 mls/hr IVPB BID@0600,1800 [facility]; Protocol Last Admin: 01/19/18 06:14 Dose: 166.667 mls/hr Isosorbide Mononitrate (Imdur -) 30 mg PO DAILY [facility] Last Admin: 01/19/18 11:49 Dose: 30 mg Lidocaine HCl (Xylocaine 2% Jelly) 1 applic TP BID PRN PRN Reason: MODERATE PAIN Last Admin: 01/19/18 11:52 Dose: 1 applic Lisinopril (Prinivil) 5 mg PO DAILY [facility] Last Admin: 01/19/18 11:49 Dose: 5 mg Melatonin (Melatonin) 5 mg PO HS PRN PRN Reason: INSOMNIA Last Admin: 01/19/18 00:04 Dose: 5 mg Pantoprazole Sodium (Protonix -) 40 mg PO DAILY [facility] Last Admin: 01/19/18 11:49 Dose: 40 mg Polyethylene Glycol (Miralax (For Daily Use) -) 17 gm PO DAILY [facility] Last Admin: 01/19/18 11:51 Dose: 17 gm Senna (Senna -) 2 tab PO HS PRN PRN Reason: CONSTIPATION Last Admin: 01/12/18 22:42 Dose: 2 tab Sodium Chloride ([place] Nasal [place] -) 2 spray NS BID PRN PRN Reason: NASAL CONGESTION Last Admin: 01/19/18 11:53 Dose: 2 spray Tamsulosin HCl (Flomax -) 0.8 mg PO DAILY@0830 [facility] Last Admin: 01/19/18 11:48 Dose: 0.8 mg Tramadol HCl (Ultram -) 50 mg PO Q12H PRN PRN Reason: BACK PAIN Last Admin: 01/19/18 11:50 Dose: 50 mg Warfarin Sodium (Coumadin -) 4 mg PO DAILY@1800 [facility] Last Admin: 01/18/18 18:33 Dose: 4 mg - Objective Vital Signs: Vital Signs Temperature 98.3 F 01/19/18 06:00 Pulse Rate 48 L 01/19/18 06:00 Respiratory Rate 18 01/19/18 06:00 Blood Pressure 116/51 L 01/19/18 06:00 O2 Sat by Pulse Oximetry (%) 97 01/18/18 21:00 Eyes: Yes: WNL, Conjunctiva Clear, EOM Intact HENT: Yes: WNL, Atraumatic, Normocephalic Neck: Yes: WNL, Supple, Trachea Midline Cardiovascular: Yes: WNL, Regular Rate and Rhythm Respiratory: Yes: WNL, Regular, CTA Bilaterally Gastrointestinal: Yes: WNL, Normal Bowel Sounds Genitourinary: Yes: WNL Musculoskeletal: Yes: WNL Extremities: Yes: WNL Edema: No Integumentary: Yes: WNL Neurological: Yes: WNL, Alert, Oriented ...Motor Strength: WNL Psychiatric: Yes: WNL Labs: CBC, BMP 01/16/18 07:10 01/16/18 07:10 INR, PTT INR 2.04 (0.83-1.09) H 01/19/18 07:30 Assessment/Plan - Problems (1) MRSA bacteremia Assessment/Plan: febrile episodes; initially leukocytotic. antipyretics (avoid non-aspirin NSAIDs). antibiotics per ID Code(s): R78.81 - BACTEREMIA (2) UTI (urinary tract infection) Code(s): N39.0 - URINARY TRACT INFECTION, SITE NOT SPECIFIED (3) Acute on chronic systolic (congestive) heart failure Assessment/Plan: On lisinopril. Furosemide prn. F/u Is and Os, daily weight, BUN/Cr, electrolytes. Code(s): I50.23 - ACUTE ON CHRONIC SYSTOLIC (CONGESTIVE) HEART FAILURE (4) Anxiety Code(s): F41.9 - ANXIETY DISORDER, UNSPECIFIED (5) Atrial fibrillation Assessment/Plan: 90 mg bid Lovenox until INR 2-3 with warfarin. Code(s): I48.91 - UNSPECIFIED ATRIAL FIBRILLATION (6) Chronic lower back pain Assessment/Plan: spinal studies pending. Code(s): M54.5 - LOW BACK PAIN; G89.29 - OTHER CHRONIC PAIN (7) Banegas catheter in place Code(s): Z92.89 - PERSONAL HISTORY OF OTHER MEDICAL TREATMENT (8) HTN (hypertension) Assessment/Plan: on lisinopril Code(s): I10 - ESSENTIAL (PRIMARY) HYPERTENSION (9) Hematuria Code(s): R31.9 - HEMATURIA, UNSPECIFIED Qualifiers: Hematuria type: gross Qualified Code(s): R31.0 - Gross hematuria (10) Hyperlipidemia Code(s): E78.5 - HYPERLIPIDEMIA, UNSPECIFIED (11) Obesity Code(s): E66.9 - OBESITY, UNSPECIFIED (12) Urinary retention Code(s): R33.9 - RETENTION OF URINE, UNSPECIFIED (13) ASHD (arteriosclerotic heart disease) Code(s): I25.10 - ATHSCL HEART DISEASE OF [place] CORONARY ARTERY W/O ANG PCTRS (14) Anemia Code(s): D64.9 - ANEMIA, UNSPECIFIED
[2018-01-19] MEDS: CLOTRIMAZOLE 1%TOPICAL SOLUTION 30 ML BOTTLE TP SCH (13:15)
[2018-01-19] MEDS: WARFARIN NA 2 MG TABLET (UD) PO SCH (18:14)
[2018-01-19] MEDS: ATORVASTATIN CA 20 MG TABLET (FP) PO SCH (21:12)
[2018-01-20] MEDS ORDERED: PIPERACILLIN/TAZOBACTAM 3.375 GM VIAL IVPB ONE ×3 (00:47→17:39)
[2018-01-20] MEDS ORDERED: DEXTROSE 5%-WATER - 50 ML IVPB ONE ×3 (00:47→17:40)
[2018-01-20] MEDS: PIPERACILLIN/TAZOB 3.375 GM 3.375 GM in DEXTROSE 5%-WATER - 50 ML IVPB SCH ×3 (01:25→18:14)
[2018-01-20] MEDS: ACETAMINOPHEN 325 MG TABLET (FP) PO SCH ×4 (01:25→18:14)
[2018-01-20] MEDS: ENOXAPARIN NA (PORCINE) 100 MG/1 ML DISP.SYRIN SQ SCH ×2 (01:26→12:51)
[2018-01-20] MEDS: CLOTRIMAZOLE 1%TOPICAL SOLUTION 30 ML BOTTLE TP SCH (01:36)
--- NOTE | 2018-01-20 06:35 | HOSP ---
Physical Examination Vital Signs: Vital Signs Temperature 97.3 F L 01/19/18 21:00 Pulse Rate 53 L 01/19/18 21:00 Respiratory Rate 18 01/19/18 21:00 Blood Pressure 137/60 01/19/18 21:00 O2 Sat by Pulse Oximetry (%) 98 01/19/18 21:00 Labs: CBC, BMP 01/16/18 07:10 01/16/18 07:10 Hospitalist Encounter Assessment: hospitalist team called by nurse as pt's 2-way 24fr bishop stopped voiding. Bishop was irrigated with tumi syringe. Copious amount of clots evacuated from pt 's bishop and bladder 3-way bishop inserted and connected to CBI overnight. Pt voiding well, no complaints at this time. Visit type - Emergency Visit Emergency Visit: No - New Patient This patient is new to me today: Yes Date on this admission: 01/20/18 - Critical Care Critical Care patient: No
[2018-01-20] MEDS: VANCOMYCIN 1 GM PREMIX - 1 GM/200 ML BAG IVPB SCH ×2 (06:54→18:19)
[2018-01-20 08:21] LABS: INR 2.14 (0.83-1.09); PROTHROMBIN TIME (PATIENT) 25.5 SEC (9.7-13.0)
--- NOTE | 2018-01-20 09:18 | PN ---
Progress Note (short form) - Note Progress Note: UROLOGY NOTE 77 Y/O Male patient with history of PC brachytherapy, multiple diseases including AF, HF, HT, CABG and urethral stricture, he developed multiple urinary retention and last night with clots retention, so 3 ways bishop catheter inserted and connected into CBI, O/E soft lax abdomen with 24 F bishop catheter with CBI S.Creat 1.0 HBG 10 Plan: continue CBI and ABX will schedule him for Cysto, TURBT and BNR once he is clear cardiac boles.
[2018-01-20] MEDS: FERROUS SO4 325 MG TABLET (FP) PO SCH ×2 (09:25→22:33)
[2018-01-20] MEDS: TAMSULOSIN HCL 0.4 MG CAP PO SCH (09:25)
[2018-01-20] MEDS: ISOSORBIDE MONONITRATE 30 MG TAB.SR.24H (FP) PO SCH (09:25)
[2018-01-20] MEDS: FOLIC ACID 1 MG TABLET (FP) PO SCH (09:25)
[2018-01-20] MEDS: LISINOPRIL 5 MG TABLET (FP) PO SCH (09:25)
[2018-01-20] MEDS: PANTOPRAZOLE 40 MG TABLET (FP) PO SCH (09:25)
[2018-01-20] MEDS: FUROSEMIDE 20 MG TABLET (FP) PO SCH (09:25)
--- NOTE | 2018-01-20 10:17 | PN ---
Progress Note, Physician History of Present Illness: stable no complaints foleys changed now on cbi hematuria - Current Medication List Current Medications: Active Medications Acetaminophen (Tylenol -) 650 mg PO Q6HPO [facility] Last Admin: 01/20/18 06:54 Dose: 650 mg Aspirin (Asa -) 81 mg PO DAILY [facility] Last Admin: 01/19/18 11:49 Dose: 81 mg Atorvastatin Calcium (Lipitor -) 20 mg PO HS [facility] Last Admin: 01/19/18 21:12 Dose: 20 mg Clopidogrel Bisulfate (Plavix -) 75 mg PO DAILY [facility] Last Admin: 01/19/18 11:49 Dose: 75 mg Clotrimazole (Clotrimazole) 1 applic TP BID [facility] Enoxaparin Sodium (Lovenox -) 90 mg SQ BID [facility] Last Admin: 01/20/18 01:26 Dose: Not Given Ferrous Sulfate (Feosol -) 325 mg PO BID [facility] Last Admin: 01/20/18 09:25 Dose: 325 mg Folic Acid (Folic Acid -) 1 mg PO DAILY [facility] Last Admin: 01/20/18 09:25 Dose: 1 mg Furosemide (Lasix -) 20 mg PO DAILY [facility] Last Admin: 01/20/18 09:25 Dose: 20 mg Piperacillin Sod/Tazobactam (Sod 3.375 gm/ Dextrose) 50 mls @ 100 mls/hr IVPB Q8H-IV [facility]; Protocol Last Admin: 01/20/18 09:26 Dose: 100 mls/hr Vancomycin HCl (Vancomycin 1 Gm Premix -) 1 gm in 200 mls @ 166.667 mls/hr IVPB BID@0600,1800 [facility]; Protocol Last Admin: 01/20/18 06:54 Dose: 166.667 mls/hr Isosorbide Mononitrate (Imdur -) 30 mg PO DAILY [facility] Last Admin: 01/20/18 09:25 Dose: 30 mg Lidocaine HCl (Xylocaine 2% Jelly) 1 applic TP BID PRN PRN Reason: MODERATE PAIN Last Admin: 01/19/18 11:52 Dose: 1 applic Lisinopril (Prinivil) 5 mg PO DAILY [facility] Last Admin: 01/20/18 09:25 Dose: 5 mg Melatonin (Melatonin) 5 mg PO HS PRN PRN Reason: INSOMNIA Last Admin: 01/19/18 00:04 Dose: 5 mg Pantoprazole Sodium (Protonix -) 40 mg PO DAILY [facility] Last Admin: 01/20/18 09:25 Dose: 40 mg Polyethylene Glycol (Miralax (For Daily Use) -) 17 gm PO DAILY [facility] Last Admin: 01/19/18 11:51 Dose: 17 gm Senna (Senna -) 2 tab PO HS PRN PRN Reason: CONSTIPATION Last Admin: 01/12/18 22:42 Dose: 2 tab Sodium Chloride ([place] Nasal [place] -) 2 spray NS BID PRN PRN Reason: NASAL CONGESTION Last Admin: 01/19/18 11:53 Dose: 2 spray Tamsulosin HCl (Flomax -) 0.8 mg PO DAILY@0830 [facility] Last Admin: 01/20/18 09:25 Dose: 0.8 mg Tramadol HCl (Ultram -) 50 mg PO Q12H PRN PRN Reason: BACK PAIN Last Admin: 01/19/18 21:11 Dose: 50 mg Warfarin Sodium (Coumadin -) 4 mg PO DAILY@1800 [facility] Last Admin: 01/19/18 18:14 Dose: Not Given - Objective Vital Signs: Vital Signs Temperature 98.1 F 01/20/18 06:00 Pulse Rate 50 L 01/20/18 06:00 Respiratory Rate 18 01/20/18 06:00 Blood Pressure 120/62 01/20/18 09:30 O2 Sat by Pulse Oximetry (%) 98 01/19/18 21:00 Constitutional: Yes: No Distress, Calm Cardiovascular: Yes: S1, S2 Respiratory: Yes: Regular, CTA Bilaterally Gastrointestinal: Yes: Normal Bowel Sounds, Soft Genitourinary: Yes: [place] Present, Hematuria Musculoskeletal: Yes: WNL Extremities: Yes: Other Neurological: Yes: Alert, Oriented Psychiatric: Yes: Alert, Oriented Labs: CBC, BMP 01/16/18 07:10 01/16/18 07:10 INR, PTT INR 2.14 (0.83-1.09) H 01/20/18 06:20 Assessment/Plan patient with multiple medical problems coming with weakness and knee joint swelling Problem List - Problems (1) Fever Code(s): R50.9 - FEVER, UNSPECIFIED (2) Supratherapeutic INR Code(s): R79.1 - ABNORMAL COAGULATION PROFILE (3) Anxiety Code(s): F41.9 - ANXIETY DISORDER, UNSPECIFIED (4) Atrial fibrillation Code(s): I48.91 - UNSPECIFIED ATRIAL FIBRILLATION (5) Chest pain Code(s): R07.9 - CHEST PAIN, UNSPECIFIED Qualifiers: Chest pain type: unspecified Qualified Code(s): R07.9 - Chest pain, unspecified (6) [place] catheter in place Code(s): Z92.89 - PERSONAL HISTORY OF OTHER MEDICAL TREATMENT (7) HTN (hypertension) Code(s): I10 - ESSENTIAL (PRIMARY) HYPERTENSION (8) Hematuria Code(s): R31.9 - HEMATURIA, UNSPECIFIED Qualifiers: Hematuria type: gross Qualified Code(s): R31.0 - Gross hematuria (9) Hx of CABG Code(s): Z95.1 - PRESENCE OF AORTOCORONARY BYPASS GRAFT (10) Hyperlipidemia Code(s): E78.5 - HYPERLIPIDEMIA, UNSPECIFIED hematuria Assessment/Plan continue current mgmt continue abx physio monitor hematuria rest as per the team
[2018-01-20] MEDS: CLOPIDOGREL BISULFATE 75 MG TABLET (FP) PO SCH (12:46)
[2018-01-20] MEDS: POLYETHYLENE GLYCOL 3350 119 GM BTL PO SCH (12:47)
[2018-01-20] MEDS: ASPIRIN 81 MG CHEWABLE TABLETS PO SCH (12:51)
--- NOTE | 2018-01-20 12:55 | PN ---
Progress Note (short form) - Note Progress Note: Pt examined on CBI Has a large amount of blood clots in bishop-- difficult to flush due to clots Vital Signs - 24 hr Vital Signs - 24 hr 01/19/18 01/19/18 01/19/18 14:54 18:08 21:00 Temperature 98.3 F 96.8 F L 97.3 F L Pulse Rate 48 L 64 53 L Respiratory 18 18 18 Rate Blood Pressure 127/57 L 137/60 O2 Sat by Pulse 98 Oximetry (%) 01/20/18 01/20/18 06:00 09:30 Temperature 98.1 F 97.7 F Pulse Rate 50 L 69 Respiratory 18 19 Rate Blood Pressure 109/54 L 120/62 O2 Sat by Pulse Oximetry (%) Current Medications Generic Name Dose Route Start Last Admin Trade Name Freq PRN Reason Stop Dose Admin Acetaminophen 650 mg 01/12/18 20:45 01/20/18 06:54 Tylenol - PO 650 mg Q6HPO [facility] Administration Atorvastatin Calcium 20 mg 01/12/18 22:00 01/19/18 21:12 Lipitor - PO 20 mg HS [facility] Administration Clopidogrel Bisulfate 75 mg 01/13/18 10:00 01/20/18 12:46 Plavix - PO 75 mg DAILY [facility] Administration Clotrimazole 1 applic 01/20/18 10:00 Clotrimazole TP BID [facility] Ferrous Sulfate 325 mg 01/12/18 22:00 01/20/18 09:25 Feosol - PO 325 mg BID [facility] Administration Folic Acid 1 mg 01/13/18 10:00 01/20/18 09:25 Folic Acid - PO 1 mg DAILY [facility] Administration Furosemide 20 mg 01/13/18 10:00 01/20/18 09:25 Lasix - PO 20 mg DAILY [facility] Administration Piperacillin Sod/Tazobactam 50 mls @ 100 mls/hr 01/14/18 14:30 01/20/18 09:26 Sod 3.375 gm/ Dextrose IVPB 100 mls/hr Q8H-IV [facility] Administration Protocol Vancomycin HCl 1 gm in 200 mls @ 166.667 mls/hr 01/18/18 12:30 01/20/18 06:54 Vancomycin 1 Gm Premix - IVPB 166.667 mls/hr BID@0600,1800 [facility] Administration Protocol Isosorbide Mononitrate 30 mg 01/13/18 10:00 01/20/18 09:25 Imdur - PO 30 mg DAILY [facility] Administration Lidocaine HCl 1 applic 01/13/18 11:44 01/19/18 11:52 Xylocaine 2% Jelly TP 1 applic BID PRN Administration MODERATE PAIN Lisinopril 5 mg 01/13/18 10:00 01/20/18 09:25 Prinivil PO 5 mg DAILY [facility] Administration Melatonin 5 mg 01/18/18 23:27 01/19/18 00:04 Melatonin PO 5 mg HS PRN Administration INSOMNIA Pantoprazole Sodium 40 mg 01/13/18 10:00 01/20/18 09:25 Protonix - PO 40 mg DAILY [facility] Administration Polyethylene Glycol 17 gm 01/15/18 13:00 01/20/18 12:47 Miralax (For Daily Use) - PO Not Given DAILY [facility] Senna 2 tab 01/12/18 20:07 01/12/18 22:42 Senna - PO 2 tab HS PRN Administration CONSTIPATION Sodium Chloride 2 spray 01/13/18 11:46 01/19/18 11:53 [place] Nasal [place] - NS 2 spray BID PRN Administration NASAL CONGESTION Tamsulosin HCl 0.8 mg 01/13/18 08:30 01/20/18 09:25 Flomax - PO 0.8 mg DAILY@0830 [facility] Administration Laboratory Results - last 24 hr 01/20/18 06:20 PT with INR 25.50 H INR 2.14 H S s2 irregular Lungs decreased Abd- soft, NT No edema PLAN MRSA - on CBI hold Coumadin and ASA in anticipation for procedures -- check CBC Cardiology clearance Problem List - Problems (1) Fever Code(s): R50.9 - FEVER, UNSPECIFIED (2) Supratherapeutic INR Code(s): R79.1 - ABNORMAL COAGULATION PROFILE (3) Anxiety Code(s): F41.9 - ANXIETY DISORDER, UNSPECIFIED (4) Atrial fibrillation Code(s): I48.91 - UNSPECIFIED ATRIAL FIBRILLATION (5) Chest pain Code(s): R07.9 - CHEST PAIN, UNSPECIFIED Qualifiers: Chest pain type: unspecified Qualified Code(s): R07.9 - Chest pain, unspecified (6) [place] catheter in place Code(s): Z92.89 - PERSONAL HISTORY OF OTHER MEDICAL TREATMENT (7) HTN (hypertension) Code(s): I10 - ESSENTIAL (PRIMARY) HYPERTENSION (8) Hematuria Code(s): R31.9 - HEMATURIA, UNSPECIFIED Qualifiers: Hematuria type: gross Qualified Code(s): R31.0 - Gross hematuria (9) Hx of CABG Code(s): Z95.1 - PRESENCE OF AORTOCORONARY BYPASS GRAFT (10) Hyperlipidemia Code(s): E78.5 - HYPERLIPIDEMIA, UNSPECIFIED (11) MRSA bacteremia Code(s): R78.81 - BACTEREMIA (12) UTI (urinary tract infection) Code(s): N39.0 - URINARY TRACT INFECTION, SITE NOT SPECIFIED
[2018-01-20] MEDS ORDERED: PT OWN MED DRAWER 7, Y5N ONE ×2 (13:06→18:36)
[2018-01-20 13:17] VITALS: BMI 31.4
[2018-01-20] MEDS: CLOTRIMAZOLE 1% 10 ML TOPICAL SOLUTION TP SCH ×2 (18:15→22:33)
[2018-01-20] MEDS ORDERED: traMADol HCL 50 MG TABLET PO ONE (21:53)
[2018-01-20] MEDS: ATORVASTATIN CA 20 MG TABLET (FP) PO SCH (22:32)
[2018-01-20] MEDS: MELATONIN 5 MG TABLETS PO PRN (22:32)
[2018-01-21] MEDS: ACETAMINOPHEN 325 MG TABLET (FP) PO SCH ×4 (00:32→17:55)
[2018-01-21] MEDS ORDERED: DEXTROSE 5%-WATER - 50 ML IVPB ONE ×3 (01:19→17:22)
[2018-01-21] MEDS ORDERED: PT OWN MED DRAWER 7, Y5N ONE ×3 (01:19→18:57)
[2018-01-21] MEDS ORDERED: PIPERACILLIN/TAZOBACTAM 3.375 GM VIAL IVPB ONE ×3 (01:19→17:22)
[2018-01-21] MEDS: PIPERACILLIN/TAZOB 3.375 GM 3.375 GM in DEXTROSE 5%-WATER - 50 ML IVPB SCH ×3 (01:24→17:55)
[2018-01-21] MEDS: VANCOMYCIN 1 GM PREMIX - 1 GM/200 ML BAG IVPB SCH ×2 (05:33→18:53)
[2018-01-21 07:12] LABS: HEMATOCRIT 27.5 % (35.4-49); HEMOGLOBIN 8.8 GM/dL (11.7-16.9); MCH 29.1 pg (25.7-33.7); MCHC 32.1 g/dl (32.0-35.9); MEAN CELL VOLUME 90.5 fl (80-96); MEAN PLT VOLUME 7.2 fl (7.5-11.1); PLATELET COUNT 313 K/MM3 (134-434); RBC 3.04 M/mm3 (4.00-5.60); RDW 18.5 % (11.9-15.9); WHITE BLOOD COUNT 8.7 K/mm3 (4.0-10.0)
[2018-01-21 07:26] LABS: INR 1.68 (0.83-1.09); PROTHROMBIN TIME (PATIENT) 19.9 SEC (9.7-13.0)
--- NOTE | 2018-01-21 09:09 | PN ---
Progress Note (short form) - Note Progress Note: Pt examined on CBI feels uncomfortable with bishop no chest pain , SOB Vital Signs - 24 hr 01/20/18 01/20/18 01/21/18 18:30 21:00 06:00 Temperature 98.3 F 98.0 F Pulse Rate 65 72 Respiratory 18 19 19 Rate Blood Pressure 100/49 L 107/56 L O2 Sat by Pulse 98 Oximetry (%) 01/21/18 01/21/18 10:00 15:19 Temperature 98.4 F 98.4 F Pulse Rate 85 93 H Respiratory 18 18 Rate Blood Pressure 107/45 L 107/58 L O2 Sat by Pulse Oximetry (%) Current Medications Generic Name Dose Route Start Last Admin Trade Name Freq PRN Reason Stop Dose Admin Acetaminophen 650 mg 01/12/18 20:45 01/21/18 12:40 Tylenol - PO 650 mg Q6HPO [facility] Administration Atorvastatin Calcium 20 mg 01/12/18 22:00 01/20/18 22:32 Lipitor - PO 20 mg HS [facility] Administration Clopidogrel Bisulfate 75 mg 01/13/18 10:00 01/21/18 10:01 Plavix - PO 75 mg DAILY [facility] Administration Clotrimazole 1 applic 01/20/18 10:00 01/21/18 10:03 Clotrimazole TP 1 applic BID [facility] Administration Enoxaparin Sodium 80 mg 01/21/18 22:00 Lovenox - SQ BID [facility] Ferrous Sulfate 325 mg 01/12/18 22:00 01/21/18 10:01 Feosol - PO 325 mg BID [facility] Administration Folic Acid 1 mg 01/13/18 10:00 01/21/18 10:01 Folic Acid - PO 1 mg DAILY [facility] Administration Furosemide 20 mg 01/13/18 10:00 01/21/18 10:01 Lasix - PO 20 mg DAILY [facility] Administration Piperacillin Sod/Tazobactam 50 mls @ 100 mls/hr 01/14/18 14:30 01/21/18 10:01 Sod 3.375 gm/ Dextrose IVPB 100 mls/hr Q8H-IV [facility] Administration Protocol Vancomycin HCl 1 gm in 200 mls @ 166.667 mls/hr 01/18/18 12:30 01/21/18 05:33 Vancomycin 1 Gm Premix - IVPB 166.667 mls/hr BID@0600,1800 [facility] Administration Protocol Isosorbide Mononitrate 30 mg 01/13/18 10:00 01/21/18 10:01 Imdur - PO 30 mg DAILY [facility] Administration Lidocaine HCl 1 applic 01/13/18 11:44 01/19/18 11:52 Xylocaine 2% Jelly TP 1 applic BID PRN Administration MODERATE PAIN Lisinopril 5 mg 01/13/18 10:00 01/21/18 10:01 Prinivil PO 5 mg DAILY [facility] Administration Melatonin 10 mg 01/21/18 11:42 Melatonin PO HS PRN INSOMNIA Pantoprazole Sodium 40 mg 01/13/18 10:00 01/21/18 10:01 Protonix - PO 40 mg DAILY [facility] Administration Polyethylene Glycol 17 gm 01/15/18 13:00 01/21/18 10:03 Miralax (For Daily Use) - PO 17 gm DAILY [facility] Administration Senna 2 tab 01/12/18 20:07 01/12/18 22:42 Senna - PO 2 tab HS PRN Administration CONSTIPATION Sodium Chloride 2 spray 01/13/18 11:46 01/19/18 11:53 [place] Nasal [place] - NS 2 spray BID PRN Administration NASAL CONGESTION Tamsulosin HCl 0.8 mg 01/13/18 08:30 01/21/18 10:01 Flomax - PO 0.8 mg DAILY@0830 [facility] Administration Laboratory Results - last 24 hr 01/21/18 01/21/18 06:30 06:30 WBC 8.7 RBC 3.04 L Hgb 8.8 L Hct 27.5 L MCV 90.5 MCH 29.1 MCHC 32.1 RDW 18.5 H Plt Count 313 MPV 7.2 L PT with INR 19.90 H INR 1.68 H S s2 irregular Lungs decreased Abd- soft, NT No edema PLAN MRSA - on CBI hold Coumadin and ASA in anticipation for procedures - restart Lovenox as INR<2 may needs PRBC -- check CBC Cardiology clearance Problem List - Problems (1) Supratherapeutic INR Code(s): R79.1 - ABNORMAL COAGULATION PROFILE (2) Anxiety Code(s): F41.9 - ANXIETY DISORDER, UNSPECIFIED (3) Atrial fibrillation Code(s): I48.91 - UNSPECIFIED ATRIAL FIBRILLATION (4) Chest pain Code(s): R07.9 - CHEST PAIN, UNSPECIFIED Qualifiers: Chest pain type: unspecified Qualified Code(s): R07.9 - Chest pain, unspecified (5) [place] catheter in place Code(s): Z92.89 - PERSONAL HISTORY OF OTHER MEDICAL TREATMENT (6) HTN (hypertension) Code(s): I10 - ESSENTIAL (PRIMARY) HYPERTENSION (7) Hematuria Code(s): R31.9 - HEMATURIA, UNSPECIFIED Qualifiers: Hematuria type: gross Qualified Code(s): R31.0 - Gross hematuria (8) Hx of CABG Code(s): Z95.1 - PRESENCE OF AORTOCORONARY BYPASS GRAFT (9) Hyperlipidemia Code(s): E78.5 - HYPERLIPIDEMIA, UNSPECIFIED (10) MRSA bacteremia Code(s): R78.81 - BACTEREMIA (11) UTI (urinary tract infection) Code(s): N39.0 - URINARY TRACT INFECTION, SITE NOT SPECIFIED
--- NOTE | 2018-01-21 09:16 | PN ---
Progress Note, Physician Chief Complaint: Pt A&Ox3; legs are slowly getting stronger, though still painful, especially the knees. History of Present Illness: The patient is a 77 year old white man (rajiv Owusu) with a significant past medical history of HTN, HLD, CAD (s/p stents), diastolic CHF, prostate CA, urethral stricture (catheter in place) who presents to the ER with difficulty ranging his legs today. The patient states he noticed significant swelling, redness, and warmth to the bilateral knees. Patient reports he needed assistance to ambulate today, which is new for him. Patient states he was discharged from rehab four days ago and was ambulating appropriately until today. Patient has not eaten today as he is experiencing mild nausea. Patient denies taking any of his medications today. 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 Patient has his catheter in place and draining urine appropriately. Patient has a fever of 100.1 here in the ER. - Current Medication List Current Medications: Active Medications Acetaminophen (Tylenol -) 650 mg PO Q6HPO [facility] Last Admin: 01/21/18 05:33 Dose: 650 mg Atorvastatin Calcium (Lipitor -) 20 mg PO HS [facility] Last Admin: 01/20/18 22:32 Dose: 20 mg Clopidogrel Bisulfate (Plavix -) 75 mg PO DAILY [facility] Last Admin: 01/20/18 12:46 Dose: 75 mg Clotrimazole (Clotrimazole) 1 applic TP BID [facility] Last Admin: 01/20/18 22:33 Dose: 1 applic Ferrous Sulfate (Feosol -) 325 mg PO BID [facility] Last Admin: 01/20/18 22:33 Dose: 325 mg Folic Acid (Folic Acid -) 1 mg PO DAILY [facility] Last Admin: 01/20/18 09:25 Dose: 1 mg Furosemide (Lasix -) 20 mg PO DAILY [facility] Last Admin: 01/20/18 09:25 Dose: 20 mg Piperacillin Sod/Tazobactam (Sod 3.375 gm/ Dextrose) 50 mls @ 100 mls/hr IVPB Q8H-IV [facility]; Protocol Last Admin: 01/21/18 01:24 Dose: 100 mls/hr Vancomycin HCl (Vancomycin 1 Gm Premix -) 1 gm in 200 mls @ 166.667 mls/hr IVPB BID@0600,1800 [facility]; Protocol Last Admin: 01/21/18 05:33 Dose: 166.667 mls/hr Isosorbide Mononitrate (Imdur -) 30 mg PO DAILY [facility] Last Admin: 01/20/18 09:25 Dose: 30 mg Lidocaine HCl (Xylocaine 2% Jelly) 1 applic TP BID PRN PRN Reason: MODERATE PAIN Last Admin: 01/19/18 11:52 Dose: 1 applic Lisinopril (Prinivil) 5 mg PO DAILY [facility] Last Admin: 01/20/18 09:25 Dose: 5 mg Melatonin (Melatonin) 5 mg PO HS PRN PRN Reason: INSOMNIA Last Admin: 01/20/18 22:32 Dose: 5 mg Pantoprazole Sodium (Protonix -) 40 mg PO DAILY [facility] Last Admin: 01/20/18 09:25 Dose: 40 mg Polyethylene Glycol (Miralax (For Daily Use) -) 17 gm PO DAILY [facility] Last Admin: 01/20/18 12:47 Dose: Not Given Senna (Senna -) 2 tab PO HS PRN PRN Reason: CONSTIPATION Last Admin: 01/12/18 22:42 Dose: 2 tab Sodium Chloride ([place] Nasal [place] -) 2 spray NS BID PRN PRN Reason: NASAL CONGESTION Last Admin: 01/19/18 11:53 Dose: 2 spray Tamsulosin HCl (Flomax -) 0.8 mg PO DAILY@0830 [facility] Last Admin: 01/20/18 09:25 Dose: 0.8 mg - Objective Vital Signs: Vital Signs Temperature 98.0 F 01/21/18 06:00 Pulse Rate 72 01/21/18 06:00 Respiratory Rate 19 01/21/18 06:00 Blood Pressure 107/56 L 01/21/18 06:00 O2 Sat by Pulse Oximetry (%) 98 01/20/18 21:00 Constitutional: Yes: No Distress Eyes: Yes: WNL HENT: Yes: WNL Neck: Yes: WNL Cardiovascular: Yes: Pulse Irregular Respiratory: Yes: Regular Gastrointestinal: Yes: Soft ...Rectal Exam: Yes: Deferred Genitourinary: No: Anuria Musculoskeletal: Yes: Muscle Weakness Extremities: Yes: Cool Edema: No Peripheral Pulses WNL: Yes Integumentary: Yes: WNL Neurological: Yes: WNL Psychiatric: Yes: WNL Labs: CBC, BMP 01/21/18 06:30 01/16/18 07:10 INR, PTT INR 1.68 (0.83-1.09) H 01/21/18 06:30 Abnormal Lab Results 01/22/18 01/22/18 07:30 07:30 RBC 3.07 L Hgb 9.0 L Hct 27.7 L RDW 18.4 H Anion Gap 7 L Calcium 8.4 L Problem List - Problems (1) MRSA bacteremia Assessment/Plan: febrile episodes; initially leukocytotic. antipyretics (avoid non-aspirin NSAIDs). antibiotics per ID (on Zosyn, Vancomycin, Clotrimazole). Code(s): R78.81 - BACTEREMIA (2) UTI (urinary tract infection) Code(s): N39.0 - URINARY TRACT INFECTION, SITE NOT SPECIFIED (3) Acute on chronic systolic (congestive) heart failure Assessment/Plan: On lisinopril. Furosemide prn. F/u Is and Os, daily weight, BUN/Cr, electrolytes. Code(s): I50.23 - ACUTE ON CHRONIC SYSTOLIC (CONGESTIVE) HEART FAILURE (4) Anxiety Code(s): F41.9 - ANXIETY DISORDER, UNSPECIFIED (5) Atrial fibrillation Assessment/Plan: 90 mg bid Lovenox until INR 2-3 with warfarin. Code(s): I48.91 - UNSPECIFIED ATRIAL FIBRILLATION (6) Chronic lower back pain Assessment/Plan: spinal studies pending. Code(s): M54.5 - LOW BACK PAIN; G89.29 - OTHER CHRONIC PAIN (7) [place] catheter in place Code(s): Z92.89 - PERSONAL HISTORY OF OTHER MEDICAL TREATMENT (8) HTN (hypertension) Assessment/Plan: on lisinopril Code(s): I10 - ESSENTIAL (PRIMARY) HYPERTENSION (9) Hematuria Code(s): R31.9 - HEMATURIA, UNSPECIFIED Qualifiers: Hematuria type: gross Qualified Code(s): R31.0 - Gross hematuria (10) Hyperlipidemia Code(s): E78.5 - HYPERLIPIDEMIA, UNSPECIFIED (11) Obesity Code(s): E66.9 - OBESITY, UNSPECIFIED (12) Urinary retention Code(s): R33.9 - RETENTION OF URINE, UNSPECIFIED (13) ASHD (arteriosclerotic heart disease) Code(s): I25.10 - ATHSCL HEART DISEASE OF [place] CORONARY ARTERY W/O ANG PCTRS (14) Anemia Code(s): D64.9 - ANEMIA, UNSPECIFIED
[2018-01-21] MEDS: PANTOPRAZOLE 40 MG TABLET (FP) PO SCH (10:01)
[2018-01-21] MEDS: ISOSORBIDE MONONITRATE 30 MG TAB.SR.24H (FP) PO SCH (10:01)
[2018-01-21] MEDS: FOLIC ACID 1 MG TABLET (FP) PO SCH (10:01)
[2018-01-21] MEDS: TAMSULOSIN HCL 0.4 MG CAP PO SCH (10:01)
[2018-01-21] MEDS: CLOPIDOGREL BISULFATE 75 MG TABLET (FP) PO SCH (10:01)
[2018-01-21] MEDS: LISINOPRIL 5 MG TABLET (FP) PO SCH (10:01)
[2018-01-21] MEDS: FUROSEMIDE 20 MG TABLET (FP) PO SCH (10:01)
[2018-01-21] MEDS: FERROUS SO4 325 MG TABLET (FP) PO SCH (10:01)
[2018-01-21] MEDS: POLYETHYLENE GLYCOL 3350 119 GM BTL PO SCH (10:03)
[2018-01-21] MEDS: CLOTRIMAZOLE 1% 10 ML TOPICAL SOLUTION TP SCH (10:03)
--- NOTE | 2018-01-21 11:32 | PN ---
Progress Note, Physician History of Present Illness: he patient is a 77 year old male with a significant past medical history of HTN , HLD, CAD (s/p stents), prostate CA, urethral stricture (catheter in place) who presents to the ER with difficulty ranging his legs today. The patient states he noticed significant swelling, redness, and warmth to the bilateral knees. Patient reports he needed assistance to ambulate today, which is new for him. Patient states he was discharged from rehab four days ago and was ambulating appropriately until today. Patient has not eaten today as he is experiencing mild nausea. Patient denies taking any of his medications today. 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 Patient has his catheter in place and draining urine appropriately. Patient has a fever of 100.1 here in the ER. The patient denies chest pain, shortness of breath, headache, and dizziness. Denies chills, vomit, diarrhea, and constipation. Allergies: strawberry, pepper, iohexol Past surgical history: stents Social history: No reported alcohol, drug, or cigarette use. H cabg lithotripsy prostate seeds Ongoing medical problems Afib diagnosed at the hospital during [facility] [employer] 08/2015 and has been on coumadin since then 2015 CAD Coronary artery bypass graft SANTIAGO of left SFA August 11, 2014 Dr. Blanton SANTIAGO of left PDA July 07, 2014 Dr. Blanton dizziness Hyperlipidemia Hypertension Negative MIBI stress test 2013 [place] [facility] NSVT Pauses PCI SANTIAGO of p LCx March 30, 2015 Dr. Blanton PCI LCx 08/17/12 [facility] PCI LCx 07/07/14 Dr. 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 Blanton s/p [employer] drug elluting balloon L SFA 2015 s/p [employer] left SFA 09/25/17 for left foot ulcer s/p urethral stricture after cystoscopy and urethrotomy the patient went into septic shock and was treated with antibiotics and was stabilized. October 2017 - Current Medication List Current Medications: Active Medications Acetaminophen (Tylenol -) 650 mg PO Q6HPO [facility] Last Admin: 01/21/18 05:33 Dose: 650 mg Atorvastatin Calcium (Lipitor -) 20 mg PO HS [facility] Last Admin: 01/20/18 22:32 Dose: 20 mg Clopidogrel Bisulfate (Plavix -) 75 mg PO DAILY [facility] Last Admin: 01/21/18 10:01 Dose: 75 mg Clotrimazole (Clotrimazole) 1 applic TP BID [facility] Last Admin: 01/21/18 10:03 Dose: 1 applic Ferrous Sulfate (Feosol -) 325 mg PO BID [facility] Last Admin: 01/21/18 10:01 Dose: 325 mg Folic Acid (Folic Acid -) 1 mg PO DAILY [facility] Last Admin: 01/21/18 10:01 Dose: 1 mg Furosemide (Lasix -) 20 mg PO DAILY [facility] Last Admin: 01/21/18 10:01 Dose: 20 mg Piperacillin Sod/Tazobactam (Sod 3.375 gm/ Dextrose) 50 mls @ 100 mls/hr IVPB Q8H-IV [facility]; Protocol Last Admin: 01/21/18 10:01 Dose: 100 mls/hr Vancomycin HCl (Vancomycin 1 Gm Premix -) 1 gm in 200 mls @ 166.667 mls/hr IVPB BID@0600,1800 [facility]; Protocol Last Admin: 01/21/18 05:33 Dose: 166.667 mls/hr Isosorbide Mononitrate (Imdur -) 30 mg PO DAILY [facility] Last Admin: 01/21/18 10:01 Dose: 30 mg Lidocaine HCl (Xylocaine 2% Jelly) 1 applic TP BID PRN PRN Reason: MODERATE PAIN Last Admin: 01/19/18 11:52 Dose: 1 applic Lisinopril (Prinivil) 5 mg PO DAILY [facility] Last Admin: 01/21/18 10:01 Dose: 5 mg Melatonin (Melatonin) 5 mg PO HS PRN PRN Reason: INSOMNIA Last Admin: 01/20/18 22:32 Dose: 5 mg Pantoprazole Sodium (Protonix -) 40 mg PO DAILY [facility] Last Admin: 01/21/18 10:01 Dose: 40 mg Polyethylene Glycol (Miralax (For Daily Use) -) 17 gm PO DAILY [facility] Last Admin: 01/21/18 10:03 Dose: 17 gm Senna (Senna -) 2 tab PO HS PRN PRN Reason: CONSTIPATION Last Admin: 01/12/18 22:42 Dose: 2 tab Sodium Chloride ([place] -) 2 spray NS BID PRN PRN Reason: NASAL CONGESTION Last Admin: 01/19/18 11:53 Dose: 2 spray Tamsulosin HCl (Flomax -) 0.8 mg PO DAILY@0830 [facility] Last Admin: 01/21/18 10:01 Dose: 0.8 mg - Objective Vital Signs: Vital Signs Temperature 98.4 F 01/21/18 10:00 Pulse Rate 85 01/21/18 10:00 Respiratory Rate 18 01/21/18 10:00 Blood Pressure 107/45 L 01/21/18 10:00 O2 Sat by Pulse Oximetry (%) 98 01/20/18 21:00 Eyes: Yes: WNL, Conjunctiva Clear, EOM Intact HENT: Yes: WNL, Atraumatic, Normocephalic Neck: Yes: WNL, Supple, Trachea Midline Cardiovascular: Yes: WNL, Regular Rate and Rhythm Respiratory: Yes: WNL, Regular, CTA Bilaterally Gastrointestinal: Yes: WNL, Normal Bowel Sounds Genitourinary: Yes: WNL Musculoskeletal: Yes: WNL Extremities: Yes: WNL Edema: No Integumentary: Yes: WNL Neurological: Yes: WNL, Alert, Oriented ...Motor Strength: WNL Psychiatric: Yes: WNL Labs: CBC, BMP 01/21/18 06:30 01/16/18 07:10 INR, PTT INR 1.68 (0.83-1.09) H 01/21/18 06:30 Assessment/Plan - Problems (1) MRSA bacteremia Assessment/Plan: febrile episodes; initially leukocytotic. antipyretics (avoid non-aspirin NSAIDs). antibiotics per ID (on Zosyn, Vancomycin, Clotrimazole). Code(s): R78.81 - BACTEREMIA (2) UTI (urinary tract infection) Code(s): N39.0 - URINARY TRACT INFECTION, SITE NOT SPECIFIED (3) Acute on chronic systolic (congestive) heart failure Assessment/Plan: On lisinopril. Furosemide prn. F/u Is and Os, daily weight, BUN/Cr, electrolytes. Code(s): I50.23 - ACUTE ON CHRONIC SYSTOLIC (CONGESTIVE) HEART FAILURE (4) Anxiety Code(s): F41.9 - ANXIETY DISORDER, UNSPECIFIED (5) Atrial fibrillation Assessment/Plan: 90 mg bid Lovenox until INR 2-3 with warfarin. Code(s): I48.91 - UNSPECIFIED ATRIAL FIBRILLATION (6) Chronic lower back pain Assessment/Plan: spinal studies pending. Code(s): M54.5 - LOW BACK PAIN; G89.29 - OTHER CHRONIC PAIN (7) Banegas catheter in place Code(s): Z92.89 - PERSONAL HISTORY OF OTHER MEDICAL TREATMENT (8) HTN (hypertension) Code(s): I10 - ESSENTIAL (PRIMARY) HYPERTENSION (9) Hematuria Code(s): R31.9 - HEMATURIA, UNSPECIFIED Qualifiers: Hematuria type: gross Qualified Code(s): R31.0 - Gross hematuria (10) Hyperlipidemia Code(s): E78.5 - HYPERLIPIDEMIA, UNSPECIFIED (11) Obesity Code(s): E66.9 - OBESITY, UNSPECIFIED (12) Urinary retention Code(s): R33.9 - RETENTION OF URINE, UNSPECIFIED (13) ASHD (arteriosclerotic heart disease) Code(s): I25.10 - ATHSCL HEART DISEASE OF [place] CORONARY ARTERY W/O ANG PCTRS (14) Anemia Code(s): D64.9 - ANEMIA, UNSPECIFIED
--- NOTE | 2018-01-21 12:51 | PN ---
Progress Note, Physician History of Present Illness: stable no new issues patients urine has turned clear still on cbi - Current Medication List Current Medications: Active Medications Acetaminophen (Tylenol -) 650 mg PO Q6HPO [facility] Last Admin: 01/21/18 12:40 Dose: 650 mg Atorvastatin Calcium (Lipitor -) 20 mg PO HS [facility] Last Admin: 01/20/18 22:32 Dose: 20 mg Clopidogrel Bisulfate (Plavix -) 75 mg PO DAILY [facility] Last Admin: 01/21/18 10:01 Dose: 75 mg Clotrimazole (Clotrimazole) 1 applic TP BID [facility] Last Admin: 01/21/18 10:03 Dose: 1 applic Enoxaparin Sodium (Lovenox -) 80 mg SQ BID [facility] Ferrous Sulfate (Feosol -) 325 mg PO BID [facility] Last Admin: 01/21/18 10:01 Dose: 325 mg Folic Acid (Folic Acid -) 1 mg PO DAILY [facility] Last Admin: 01/21/18 10:01 Dose: 1 mg Furosemide (Lasix -) 20 mg PO DAILY [facility] Last Admin: 01/21/18 10:01 Dose: 20 mg Piperacillin Sod/Tazobactam (Sod 3.375 gm/ Dextrose) 50 mls @ 100 mls/hr IVPB Q8H-IV [facility]; Protocol Last Admin: 01/21/18 10:01 Dose: 100 mls/hr Vancomycin HCl (Vancomycin 1 Gm Premix -) 1 gm in 200 mls @ 166.667 mls/hr IVPB BID@0600,1800 [facility]; Protocol Last Admin: 01/21/18 05:33 Dose: 166.667 mls/hr Isosorbide Mononitrate (Imdur -) 30 mg PO DAILY [facility] Last Admin: 01/21/18 10:01 Dose: 30 mg Lidocaine HCl (Xylocaine 2% Jelly) 1 applic TP BID PRN PRN Reason: MODERATE PAIN Last Admin: 01/19/18 11:52 Dose: 1 applic Lisinopril (Prinivil) 5 mg PO DAILY [facility] Last Admin: 01/21/18 10:01 Dose: 5 mg Melatonin (Melatonin) 10 mg PO HS PRN PRN Reason: INSOMNIA Pantoprazole Sodium (Protonix -) 40 mg PO DAILY [facility] Last Admin: 01/21/18 10:01 Dose: 40 mg Polyethylene Glycol (Miralax (For Daily Use) -) 17 gm PO DAILY [facility] Last Admin: 01/21/18 10:03 Dose: 17 gm Senna (Senna -) 2 tab PO HS PRN PRN Reason: CONSTIPATION Last Admin: 01/12/18 22:42 Dose: 2 tab Sodium Chloride ([place] Nasal [place] -) 2 spray NS BID PRN PRN Reason: NASAL CONGESTION Last Admin: 01/19/18 11:53 Dose: 2 spray Tamsulosin HCl (Flomax -) 0.8 mg PO DAILY@0830 [facility] Last Admin: 01/21/18 10:01 Dose: 0.8 mg - Objective Vital Signs: Vital Signs Temperature 98.4 F 01/21/18 10:00 Pulse Rate 85 01/21/18 10:00 Respiratory Rate 18 01/21/18 10:00 Blood Pressure 107/45 L 01/21/18 10:00 O2 Sat by Pulse Oximetry (%) 98 01/20/18 21:00 Constitutional: Yes: No Distress, Calm Cardiovascular: Yes: S1, S2 Respiratory: Yes: Regular, CTA Bilaterally Gastrointestinal: Yes: Normal Bowel Sounds, Soft Genitourinary: Yes: Ban[place] Present, Hematuria (resolved) Musculoskeletal: Yes: WNL Extremities: Yes: Other (swelling has improved) Neurological: Yes: Alert, Oriented Labs: CBC, BMP 01/21/18 06:30 01/16/18 07:10 INR, PTT INR 1.68 (0.83-1.09) H 01/21/18 06:30 Assessment/Plan patient with multiple medical problems coming with weakness and knee joint swelling Problem List - Problems (1) Fever Code(s): R50.9 - FEVER, UNSPECIFIED (2) Supratherapeutic INR Code(s): R79.1 - ABNORMAL COAGULATION PROFILE (3) Anxiety Code(s): F41.9 - ANXIETY DISORDER, UNSPECIFIED (4) Atrial fibrillation Code(s): I48.91 - UNSPECIFIED ATRIAL FIBRILLATION (5) Chest pain Code(s): R07.9 - CHEST PAIN, UNSPECIFIED Qualifiers: Chest pain type: unspecified Qualified Code(s): R07.9 - Chest pain, unspecified (6) Banegas catheter in place Code(s): Z92.89 - PERSONAL HISTORY OF OTHER MEDICAL TREATMENT (7) HTN (hypertension) Code(s): I10 - ESSENTIAL (PRIMARY) HYPERTENSION (8) Hematuria Code(s): R31.9 - HEMATURIA, UNSPECIFIED Qualifiers: Hematuria type: gross Qualified Code(s): R31.0 - Gross hematuria (9) Hx of CABG Code(s): Z95.1 - PRESENCE OF AORTOCORONARY BYPASS GRAFT (10) Hyperlipidemia Code(s): E78.5 - HYPERLIPIDEMIA, UNSPECIFIED hematuria Assessment/Plan continue current mgmt continue abx physio monitor hematuria rest as per the team will await for vanco trough results
[2018-01-21] MEDS ORDERED: ENOXAPARIN NA (PORCINE) 80 MG/0.8 ML DISP.SYRIN SQ SCH (22:00)
[2018-01-22] MEDS: MELATONIN 5 MG TABLETS PO PRN ×2 (00:41→21:38)
[2018-01-22] MEDS: ACETAMINOPHEN 325 MG TABLET (FP) PO SCH ×5 (00:42→23:55)
[2018-01-22] MEDS: ATORVASTATIN CA 20 MG TABLET (FP) PO SCH ×2 (00:42→21:38)
[2018-01-22] MEDS: CLOTRIMAZOLE 1% 10 ML TOPICAL SOLUTION TP SCH ×3 (00:42→23:01)
[2018-01-22] MEDS: FERROUS SO4 325 MG TABLET (FP) PO SCH ×2 (00:42→09:39)
[2018-01-22] MEDS: ENOXAPARIN NA (PORCINE) 100 MG/1 ML DISP.SYRIN SQ SCH ×3 (00:43→21:38)
[2018-01-22] MEDS ORDERED: PIPERACILLIN/TAZOBACTAM 3.375 GM VIAL IVPB ONE ×3 (02:40→16:26)
[2018-01-22] MEDS ORDERED: DEXTROSE 5%-WATER - 50 ML IVPB ONE ×3 (02:40→16:26)
[2018-01-22] MEDS: PIPERACILLIN/TAZOB 3.375 GM 3.375 GM in DEXTROSE 5%-WATER - 50 ML IVPB SCH ×3 (02:55→17:00)
[2018-01-22] MEDS: VANCOMYCIN 1 GM PREMIX - 1 GM/200 ML BAG IVPB SCH ×2 (05:10→17:37)
[2018-01-22] MEDS ORDERED: PT OWN MED DRAWER 7, Y5N ONE ×6 (07:11→18:00)
[2018-01-22] MEDS: LIDOCAINE HCL 2% JELLY (5 ML/TUBE) TP PRN ×3 (07:58→21:44)
[2018-01-22 08:08] LABS: HEMATOCRIT 27.7 % (35.4-49); MCH 29.2 pg (25.7-33.7); MCHC 32.4 g/dl (32.0-35.9); MEAN CELL VOLUME 90.2 fl (80-96); MEAN PLT VOLUME 7.6 fl (7.5-11.1); PLATELET COUNT 362 K/MM3 (134-434); RBC 3.07 M/mm3 (4.00-5.60); RDW 18.4 % (11.9-15.9); WHITE BLOOD COUNT 7.6 K/mm3 (4.0-10.0)
[2018-01-22 08:25] LABS: ANION GAP 7 MMOL/L (8-16); BLOOD UREA NITROGEN 18 mg/dL (7-18); CALCIUM 8.4 mg/dL (8.5-10.1); CHLORIDE 106 mmol/L (98-107); CO2 25 mmol/L (21-32); GLUCOSE,RANDOM 103 mg/dL (74-106); POTASSIUM 4.4 mmol/L (3.5-5.1); SODIUM 137 mmol/L (136-145)
[2018-01-22] MEDS: TAMSULOSIN HCL 0.4 MG CAP PO SCH (09:08)
[2018-01-22] MEDS: LISINOPRIL 5 MG TABLET (FP) PO SCH (09:39)
[2018-01-22] MEDS: PANTOPRAZOLE 40 MG TABLET (FP) PO SCH (09:39)
[2018-01-22] MEDS: ISOSORBIDE MONONITRATE 30 MG TAB.SR.24H (FP) PO SCH (09:39)
[2018-01-22] MEDS: FUROSEMIDE 20 MG TABLET (FP) PO SCH (09:39)
[2018-01-22] MEDS: FOLIC ACID 1 MG TABLET (FP) PO SCH (09:39)
[2018-01-22] MEDS: CLOPIDOGREL BISULFATE 75 MG TABLET (FP) PO SCH (09:40)
[2018-01-22] MEDS: POLYETHYLENE GLYCOL 3350 119 GM BTL PO SCH (09:40)
[2018-01-22] MEDS: BENZOCAINE 28 GM HEMORRHOIDAL OINTMENT PR PRN ×2 (10:00→16:55)
--- NOTE | 2018-01-22 10:26 | PN ---
Progress Note (short form) - Note Progress Note: Pt examined discontinued CBI c/o pain around penis and hemorrhoidal pain feels uncomfortable Vital Signs - 24 hr 01/21/18 01/21/18 01/21/18 15:19 18:30 21:00 Temperature 98.4 F 98.0 F Pulse Rate 93 H 59 L Respiratory 18 18 18 Rate Blood Pressure 107/58 L 99/60 O2 Sat by Pulse 98 Oximetry (%) 01/21/18 01/22/18 01/22/18 22:00 06:00 09:00 Temperature 98.3 F 98.4 F 98.7 F Pulse Rate 61 63 80 Respiratory 19 18 20 Rate Blood Pressure 114/62 117/71 133/77 O2 Sat by Pulse 99 Oximetry (%) Current Medications Generic Name Dose Route Start Last Admin Trade Name Freq PRN Reason Stop Dose Admin Acetaminophen 650 mg 01/12/18 20:45 01/22/18 12:37 Tylenol - PO 650 mg Q6HPO [facility] Administration Atorvastatin Calcium 20 mg 01/12/18 22:00 01/22/18 00:42 Lipitor - PO 20 mg HS [facility] Administration Benzocaine 1 applic 01/22/18 07:52 [place] Ointment - RI PRN PRN hemorrhoids. Clopidogrel Bisulfate 75 mg 01/13/18 10:00 01/22/18 09:40 Plavix - PO 75 mg DAILY [facility] Administration Clotrimazole 1 applic 01/20/18 10:00 01/22/18 09:41 Clotrimazole TP 1 applic BID [facility] Administration Enoxaparin Sodium 90 mg 01/21/18 22:00 01/22/18 09:40 Lovenox - SQ 90 mg BID [facility] Administration Ferrous Sulfate 325 mg 01/23/18 10:00 Feosol - PO DAILY [facility] Folic Acid 1 mg 01/13/18 10:00 01/22/18 09:39 Folic Acid - PO 1 mg DAILY [facility] Administration Furosemide 20 mg 01/13/18 10:00 01/22/18 09:39 Lasix - PO 20 mg DAILY [facility] Administration Piperacillin Sod/Tazobactam 50 mls @ 100 mls/hr 01/14/18 14:30 01/22/18 09:40 Sod 3.375 gm/ Dextrose IVPB 100 mls/hr Q8H-IV [facility] Administration Protocol Vancomycin HCl 1 gm in 200 mls @ 166.667 mls/hr 01/18/18 12:30 01/22/18 05:10 Vancomycin 1 Gm Premix - IVPB 166.667 mls/hr BID@0600,1800 [facility] Administration Protocol Isosorbide Mononitrate 30 mg 01/13/18 10:00 01/22/18 09:39 Imdur - PO 30 mg DAILY [facility] Administration Lidocaine HCl 1 applic 01/13/18 11:44 01/22/18 07:58 Xylocaine 2% Jelly TP 1 applic BID PRN Administration MODERATE PAIN Lisinopril 5 mg 01/13/18 10:00 01/22/18 09:39 Prinivil PO 5 mg DAILY [facility] Administration Melatonin 10 mg 01/21/18 11:42 01/22/18 00:41 Melatonin PO 10 mg HS PRN Administration INSOMNIA Morphine Sulfate 1 mg 01/22/18 10:53 01/22/18 11:18 Morphine Sulfate IVPUSH 1 mg Q6H PRN Administration PAIN LEVEL 6-10 Ondansetron HCl 8 mg 01/22/18 10:53 01/22/18 11:29 Zofran Injection IVPB 8 mg Q6H PRN Administration NAUSEA Oxycodone HCl 10 mg 01/22/18 10:12 01/22/18 14:02 Roxicodone - PO 10 mg Q4H PRN Administration PAIN LEVEL 6-10 Pantoprazole Sodium 40 mg 01/22/18 11:00 01/22/18 12:46 Protonix Iv IVPUSH 40 mg DAILY [facility] Administration Polyethylene Glycol 17 gm 01/15/18 13:00 01/22/18 09:40 Miralax (For Daily Use) - PO 17 gm DAILY [facility] Administration Senna 2 tab 01/12/18 20:07 01/12/18 22:42 Senna - PO 2 tab HS PRN Administration CONSTIPATION Sodium Chloride 2 spray 01/13/18 11:46 01/19/18 11:53 [place] Nasal [place] - NS 2 spray BID PRN Administration NASAL CONGESTION Tamsulosin HCl 0.8 mg 01/13/18 08:30 01/22/18 09:08 Flomax - PO 0.8 mg DAILY@0830 [facility] Administration Laboratory Results - last 24 hr 01/21/18 01/22/18 01/22/18 17:25 07:30 07:30 WBC 7.6 RBC 3.07 L Hgb 9.0 L Hct 27.7 L MCV 90.2 MCH 29.2 MCHC 32.4 RDW 18.4 H Plt Count 362 MPV 7.6 Sodium 137 Potassium 4.4 Chloride 106 Carbon Dioxide 25 Anion Gap 7 L BUN 18 Creatinine 1.0 Creat Clearance w eGFR > 60 Random Glucose 103 Calcium 8.4 L Vancomycin Pre-Dose 16.8 L S s2 irregular Lungs decreased Abd- soft, NT No edema PLAN MRSA - on CBI hold Coumadin and ASA in anticipation for procedures - restart Lovenox as INR<2 Morphine iv for pain control CBI discontinued follow up Monitor CBC Cardiology clearance Problem List - Problems (1) Supratherapeutic INR Code(s): R79.1 - ABNORMAL COAGULATION PROFILE (2) Anxiety Code(s): F41.9 - ANXIETY DISORDER, UNSPECIFIED (3) Atrial fibrillation Code(s): I48.91 - UNSPECIFIED ATRIAL FIBRILLATION (4) Chest pain Code(s): R07.9 - CHEST PAIN, UNSPECIFIED Qualifiers: Chest pain type: unspecified Qualified Code(s): R07.9 - Chest pain, unspecified (5) Banegas catheter in place Code(s): Z92.89 - PERSONAL HISTORY OF OTHER MEDICAL TREATMENT (6) HTN (hypertension) Code(s): I10 - ESSENTIAL (PRIMARY) HYPERTENSION (7) Hematuria Code(s): R31.9 - HEMATURIA, UNSPECIFIED Qualifiers: Hematuria type: gross Qualified Code(s): R31.0 - Gross hematuria (8) Hx of CABG Code(s): Z95.1 - PRESENCE OF AORTOCORONARY BYPASS GRAFT (9) Hyperlipidemia Code(s): E78.5 - HYPERLIPIDEMIA, UNSPECIFIED (10) MRSA bacteremia Code(s): R78.81 - BACTEREMIA (11) UTI (urinary tract infection) Code(s): N39.0 - URINARY TRACT INFECTION, SITE NOT SPECIFIED
[2018-01-22] MEDS: MORPHINE SULFATE 2 MG/ML VIAL IVPUSH PRN (11:18)
[2018-01-22] MEDS: ONDANSETRON 4 MG/2 ML VIAL IVPB PRN (11:29)
[2018-01-22] MEDS: PANTOPRAZOLE SODIUM 40 MG VIAL IVPUSH SCH (12:46)
[2018-01-22] MEDS: oxyCODONE HCL 5 MG TABLET PO PRN ×3 (14:02→22:58)
--- NOTE | 2018-01-22 15:54 | PN ---
Progress Note, Physician History of Present Illness: cbi discontinued hemorrhoidal pain bothering him - Current Medication List Current Medications: Active Medications Acetaminophen (Tylenol -) 650 mg PO Q6HPO [facility] Last Admin: 01/22/18 12:37 Dose: 650 mg Atorvastatin Calcium (Lipitor -) 20 mg PO HS [facility] Last Admin: 01/22/18 00:42 Dose: 20 mg Benzocaine ([place] Ointment -) 1 applic SD PRN PRN PRN Reason: hemorrhoids. Clopidogrel Bisulfate (Plavix -) 75 mg PO DAILY [facility] Last Admin: 01/22/18 09:40 Dose: 75 mg Clotrimazole (Clotrimazole) 1 applic TP BID [facility] Last Admin: 01/22/18 09:41 Dose: 1 applic Enoxaparin Sodium (Lovenox -) 90 mg SQ BID [facility] Last Admin: 01/22/18 09:40 Dose: 90 mg Ferrous Sulfate (Feosol -) 325 mg PO DAILY [facility] Folic Acid (Folic Acid -) 1 mg PO DAILY [facility] Last Admin: 01/22/18 09:39 Dose: 1 mg Furosemide (Lasix -) 20 mg PO DAILY [facility] Last Admin: 01/22/18 09:39 Dose: 20 mg Piperacillin Sod/Tazobactam (Sod 3.375 gm/ Dextrose) 50 mls @ 100 mls/hr IVPB Q8H-IV [facility]; Protocol Last Admin: 01/22/18 09:40 Dose: 100 mls/hr Vancomycin HCl (Vancomycin 1 Gm Premix -) 1 gm in 200 mls @ 166.667 mls/hr IVPB BID@0600,1800 [facility]; Protocol Last Admin: 01/22/18 05:10 Dose: 166.667 mls/hr Isosorbide Mononitrate (Imdur -) 30 mg PO DAILY [facility] Last Admin: 01/22/18 09:39 Dose: 30 mg Lidocaine HCl (Xylocaine 2% Jelly) 1 applic TP BID PRN PRN Reason: MODERATE PAIN Last Admin: 01/22/18 07:58 Dose: 1 applic Lisinopril (Prinivil) 5 mg PO DAILY [facility] Last Admin: 01/22/18 09:39 Dose: 5 mg Melatonin (Melatonin) 10 mg PO HS PRN PRN Reason: INSOMNIA Last Admin: 01/22/18 00:41 Dose: 10 mg Morphine Sulfate (Morphine Sulfate) 1 mg IVPUSH Q6H PRN PRN Reason: PAIN LEVEL 6-10 Last Admin: 01/22/18 11:18 Dose: 1 mg Ondansetron HCl (Zofran Injection) 8 mg IVPB Q6H PRN PRN Reason: NAUSEA Last Admin: 01/22/18 11:29 Dose: 8 mg Oxycodone HCl (Roxicodone -) 10 mg PO Q4H PRN PRN Reason: PAIN LEVEL 6-10 Last Admin: 01/22/18 14:02 Dose: 10 mg Pantoprazole Sodium (Protonix Iv) 40 mg IVPUSH DAILY [facility] Last Admin: 01/22/18 12:46 Dose: 40 mg Polyethylene Glycol (Miralax (For Daily Use) -) 17 gm PO DAILY [facility] Last Admin: 01/22/18 09:40 Dose: 17 gm Senna (Senna -) 2 tab PO HS PRN PRN Reason: CONSTIPATION Last Admin: 01/12/18 22:42 Dose: 2 tab Sodium Chloride ([place] Nasal [place] -) 2 spray NS BID PRN PRN Reason: NASAL CONGESTION Last Admin: 01/19/18 11:53 Dose: 2 spray Tamsulosin HCl (Flomax -) 0.8 mg PO DAILY@0830 [facility] Last Admin: 01/22/18 09:08 Dose: 0.8 mg - Objective Vital Signs: Vital Signs Temperature 98.8 F 01/22/18 14:45 Pulse Rate 82 01/22/18 14:45 Respiratory Rate 20 01/22/18 14:45 Blood Pressure 105/56 L 01/22/18 14:45 O2 Sat by Pulse Oximetry (%) 99 01/22/18 09:00 Constitutional: Yes: Calm, Mild Distress Cardiovascular: Yes: S1, S2 Respiratory: Yes: Regular, CTA Bilaterally Gastrointestinal: Yes: Normal Bowel Sounds, Soft Genitourinary: Yes: Banegas Present Neurological: Yes: Alert, Oriented Psychiatric: Yes: Alert, Oriented Labs: CBC, BMP 01/22/18 07:30 01/22/18 07:30 INR, PTT INR 1.68 (0.83-1.09) H 01/21/18 06:30 Assessment/Plan patient with multiple medical problems coming with weakness and knee joint swelling Problem List - Problems (1) Fever Code(s): R50.9 - FEVER, UNSPECIFIED (2) Supratherapeutic INR Code(s): R79.1 - ABNORMAL COAGULATION PROFILE (3) Anxiety Code(s): F41.9 - ANXIETY DISORDER, UNSPECIFIED (4) Atrial fibrillation Code(s): I48.91 - UNSPECIFIED ATRIAL FIBRILLATION (5) Chest pain Code(s): R07.9 - CHEST PAIN, UNSPECIFIED Qualifiers: Chest pain type: unspecified Qualified Code(s): R07.9 - Chest pain, unspecified (6) Banegas catheter in place Code(s): Z92.89 - PERSONAL HISTORY OF OTHER MEDICAL TREATMENT (7) HTN (hypertension) Code(s): I10 - ESSENTIAL (PRIMARY) HYPERTENSION (8) Hematuria Code(s): R31.9 - HEMATURIA, UNSPECIFIED Qualifiers: Hematuria type: gross Qualified Code(s): R31.0 - Gross hematuria (9) Hx of CABG Code(s): Z95.1 - PRESENCE OF AORTOCORONARY BYPASS GRAFT (10) Hyperlipidemia Code(s): E78.5 - HYPERLIPIDEMIA, UNSPECIFIED hematuria Assessment/Plan continue current mgmt continue abx physio monitor hematuria rest as per the team vanco trough result noted
--- NOTE | 2018-01-22 18:26 | PN ---
Progress Note, Physician Chief Complaint: Pt A&Ox3; sitting up at bedside; no chest pain or dyspnea. Pt had intense pain in am from "hemorrhoids" (denies bleeding) and from [place] cath. He says morphine and Tramadol help the pain, but not Tylenol. History of Present Illness: The patient is a 77 year old white man (rajiv Owusu) with a significant past medical history of HTN, HLD, CAD (s/p stents), diastolic CHF, prostate CA, urethral stricture (catheter in place) who presents to the ER with difficulty ranging his legs today. The patient states he noticed significant swelling, redness, and warmth to the bilateral knees. Patient reports he needed assistance to ambulate today, which is new for him. Patient states he was discharged from rehab four days ago and was ambulating appropriately until today. Patient has not eaten today as he is experiencing mild nausea. Patient denies taking any of his medications today. 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 Patient has his catheter in place and draining urine appropriately. Patient has a fever of 100.1 here in the ER. - Current Medication List Current Medications: Active Medications Acetaminophen (Tylenol -) 650 mg PO Q6HPO [facility] Last Admin: 01/22/18 17:37 Dose: 650 mg Atorvastatin Calcium (Lipitor -) 20 mg PO HS [facility] Last Admin: 01/22/18 00:42 Dose: 20 mg Benzocaine (Americaine Ointment -) 1 applic [place] PRN PRN PRN Reason: hemorrhoids. Last Admin: 01/22/18 16:55 Dose: 1 applic Clopidogrel Bisulfate (Plavix -) 75 mg PO DAILY [facility] Last Admin: 01/22/18 09:40 Dose: 75 mg Clotrimazole (Clotrimazole) 1 applic TP BID [facility] Last Admin: 01/22/18 09:41 Dose: 1 applic Enoxaparin Sodium (Lovenox -) 90 mg SQ BID [facility] Last Admin: 01/22/18 09:40 Dose: 90 mg Ferrous Sulfate (Feosol -) 325 mg PO DAILY [facility] Folic Acid (Folic Acid -) 1 mg PO DAILY [facility] Last Admin: 01/22/18 09:39 Dose: 1 mg Furosemide (Lasix -) 20 mg PO DAILY [facility] Last Admin: 01/22/18 09:39 Dose: 20 mg Piperacillin Sod/Tazobactam (Sod 3.375 gm/ Dextrose) 50 mls @ 100 mls/hr IVPB Q8H-IV [facility]; Protocol Last Admin: 01/22/18 17:00 Dose: 100 mls/hr Vancomycin HCl (Vancomycin 1 Gm Premix -) 1 gm in 200 mls @ 166.667 mls/hr IVPB BID@0600,1800 [facility]; Protocol Last Admin: 01/22/18 17:37 Dose: 166.667 mls/hr Isosorbide Mononitrate (Imdur -) 30 mg PO DAILY [facility] Last Admin: 01/22/18 09:39 Dose: 30 mg Lidocaine HCl (Xylocaine 2% Jelly) 1 applic TP BID PRN PRN Reason: MODERATE PAIN Last Admin: 01/22/18 16:59 Dose: 1 applic Lisinopril (Prinivil) 5 mg PO DAILY [facility] Last Admin: 01/22/18 09:39 Dose: 5 mg Melatonin (Melatonin) 10 mg PO HS PRN PRN Reason: INSOMNIA Last Admin: 01/22/18 00:41 Dose: 10 mg Morphine Sulfate (Morphine Sulfate) 1 mg IVPUSH Q6H PRN PRN Reason: PAIN LEVEL 6-10 Last Admin: 01/22/18 11:18 Dose: 1 mg Non-Formulary Medication (Patient's Own Med) 1 each AD BID PRN PRN Reason: HEMORRHOIDS Ondansetron HCl (Zofran Injection) 8 mg IVPB Q6H PRN PRN Reason: NAUSEA Last Admin: 01/22/18 11:29 Dose: 8 mg Oxycodone HCl (Roxicodone -) 10 mg PO Q4H PRN PRN Reason: PAIN LEVEL 6-10 Last Admin: 01/22/18 14:02 Dose: 10 mg Pantoprazole Sodium (Protonix Iv) 40 mg IVPUSH DAILY [facility] Last Admin: 01/22/18 12:46 Dose: 40 mg Polyethylene Glycol (Miralax (For Daily Use) -) 17 gm PO DAILY [facility] Last Admin: 01/22/18 09:40 Dose: 17 gm Senna (Senna -) 2 tab PO HS PRN PRN Reason: CONSTIPATION Last Admin: 01/12/18 22:42 Dose: 2 tab Sodium Chloride ([place] Nasal [place] -) 2 spray NS BID PRN PRN Reason: NASAL CONGESTION Last Admin: 01/19/18 11:53 Dose: 2 spray Tamsulosin HCl (Flomax -) 0.8 mg PO DAILY@0830 [facility] Last Admin: 01/22/18 09:08 Dose: 0.8 mg - Objective Vital Signs: Vital Signs Temperature 98.8 F 01/22/18 14:45 Pulse Rate 82 01/22/18 14:45 Respiratory Rate 20 01/22/18 14:45 Blood Pressure 105/56 L 01/22/18 14:45 O2 Sat by Pulse Oximetry (%) 99 01/22/18 09:00 Constitutional: Yes: Calm Eyes: Yes: WNL HENT: Yes: WNL Neck: Yes: WNL Cardiovascular: Yes: Murmur, S1, S2 Respiratory: Yes: Regular Gastrointestinal: Yes: Soft ...Rectal Exam: Yes: Deferred Genitourinary: No: Anuria Musculoskeletal: Yes: Joint Stiffness (knees), Muscle Weakness Extremities: Yes: Cool Edema: No Peripheral Pulses WNL: Yes Integumentary: Yes: WNL Neurological: Yes: Alert, Oriented, Weakness Psychiatric: Yes: WNL Labs: CBC, BMP 01/22/18 07:30 01/22/18 07:30 INR, PTT INR 1.68 (0.83-1.09) H 01/21/18 06:30 Abnormal Lab Results 01/22/18 01/22/18 07:30 07:30 RBC 3.07 L Hgb 9.0 L Hct 27.7 L RDW 18.4 H Anion Gap 7 L Calcium 8.4 L Problem List - Problems (1) MRSA bacteremia Assessment/Plan: febrile episodes; initially leukocytotic. antipyretics (avoid non-aspirin NSAIDs). antibiotics per ID (on Zosyn, Vancomycin, Clotrimazole). Code(s): R78.81 - BACTEREMIA (2) UTI (urinary tract infection) Code(s): N39.0 - URINARY TRACT INFECTION, SITE NOT SPECIFIED (3) Acute on chronic systolic (congestive) heart failure Assessment/Plan: On lisinopril. Furosemide prn. F/u Is and Os, daily weight, BUN/Cr, electrolytes. Code(s): I50.23 - ACUTE ON CHRONIC SYSTOLIC (CONGESTIVE) HEART FAILURE (4) Anxiety Code(s): F41.9 - ANXIETY DISORDER, UNSPECIFIED (5) Atrial fibrillation Assessment/Plan: 90 mg bid Lovenox until INR 2-3 with warfarin. EKG in am Code(s): I48.91 - UNSPECIFIED ATRIAL FIBRILLATION (6) Chronic lower back pain Assessment/Plan: spinal studies (xray) results noted; no metastases; no compression; mild lumbar spondylosis. Code(s): M54.5 - LOW BACK PAIN; G89.29 - OTHER CHRONIC PAIN (7) HTN (hypertension) Assessment/Plan: on lisinopril; on furosemide. Code(s): I10 - ESSENTIAL (PRIMARY) HYPERTENSION (8) Hematuria Code(s): R31.9 - HEMATURIA, UNSPECIFIED Qualifiers: Hematuria type: gross Qualified Code(s): R31.0 - Gross hematuria (9) Hyperlipidemia Assessment/Plan: Total cholesterol 118 mg/dL; on atorvastatin 20 mg daily. Code(s): E78.5 - HYPERLIPIDEMIA, UNSPECIFIED (10) Obesity Code(s): E66.9 - OBESITY, UNSPECIFIED (11) Urinary retention Assessment/Plan: . Code(s): R33.9 - RETENTION OF URINE, UNSPECIFIED (12) ASHD (arteriosclerotic heart disease) Assessment/Plan: s/p CABG s/p coronary and LE angioplasty/stents. On clopidogrel; statin; nitrate (Imdur). Code(s): I25.10 - ATHSCL HEART DISEASE OF [place] CORONARY ARTERY W/O ANG PCTRS (13) Anemia Code(s): D64.9 - ANEMIA, UNSPECIFIED (14) Prostate cancer Code(s): C61 - MALIGNANT NEOPLASM OF PROSTATE
[2018-01-22] MEDS: PREPARATION H NR PRN ×2 (19:08→21:39)
[2018-01-23] MEDS ORDERED: PIPERACILLIN/TAZOBACTAM 3.375 GM VIAL IVPB ONE ×3 (01:13→17:06)
[2018-01-23] MEDS ORDERED: DEXTROSE 5%-WATER - 50 ML IVPB ONE ×3 (01:13→17:06)
[2018-01-23] MEDS: PIPERACILLIN/TAZOB 3.375 GM 3.375 GM in DEXTROSE 5%-WATER - 50 ML IVPB SCH ×3 (02:14→17:14)
[2018-01-23] MEDS ORDERED: PT OWN MED DRAWER 7, Y5N ONE (02:52)
[2018-01-23] MEDS: oxyCODONE HCL 5 MG TABLET PO PRN ×2 (02:54→22:17)
[2018-01-23] MEDS: ACETAMINOPHEN 325 MG TABLET (FP) PO SCH ×3 (05:49→17:41)
[2018-01-23] MEDS: VANCOMYCIN 1 GM PREMIX - 1 GM/200 ML BAG IVPB SCH ×2 (05:51→17:41)
[2018-01-23 07:32] LABS: BASO % 0.6 % (0-2.0); EOS % 1.3 % (0-4.5); HEMATOCRIT 27.5 % (35.4-49); HEMOGLOBIN 8.9 GM/dL (11.7-16.9); LYMPH % 10.8 % (8-40); MCH 29.3 pg (25.7-33.7); MCHC 32.6 g/dl (32.0-35.9); MEAN CELL VOLUME 90.1 fl (80-96); MEAN PLT VOLUME 7.3 fl (7.5-11.1); MONO % 11.7 % (3.8-10.2); NEUT % 75.6 % (42.8-82.8); PLATELET COUNT 333 K/MM3 (134-434); RBC 3.05 M/mm3 (4.00-5.60); RDW 18.6 % (11.9-15.9); WHITE BLOOD COUNT 10.2 K/mm3 (4.0-10.0)
[2018-01-23 07:57] LABS: INR 1.2 (0.83-1.09); PROTHROMBIN TIME (PATIENT) 14.2 SEC (9.7-13.0)
[2018-01-23 08:04] LABS: ALBUMIN 2.9 g/dl (3.4-5.0); ALK PHOS 156 U/L (45-117); ANION GAP 10 MMOL/L (8-16); BILIRUBIN,TOTAL 0.3 mg/dL (0.2-1); BLOOD UREA NITROGEN 15 mg/dL (7-18); CALCIUM 9.3 mg/dL (8.5-10.1); CHLORIDE 104 mmol/L (98-107); CO2 25 mmol/L (21-32); CREATININE 1.1 mg/dL (0.55-1.3); GLUCOSE,RANDOM 109 mg/dL (74-106); POTASSIUM 4.6 mmol/L (3.5-5.1); SGOT/AST 41 U/L (15-37); SGPT/ALT 40 U/L (13-61); SODIUM 139 mmol/L (136-145); TOT PROT 6.1 g/dl (6.4-8.2)
--- NOTE | 2018-01-23 09:14 | EKG ---
Test Reason : Blood Pressure : / mmHG Vent. Rate : 076 BPM Atrial Rate : 076 BPM P-R Int : 200 ms QRS Dur : 118 ms QT Int : 400 ms P-R-T Axes : 044 060 136 degrees QTc Int : 450 ms SINUS RHYTHM WITH OCCASIONAL PREMATURE VENTRICULAR COMPLEXES INCOMPLETE LEFT BUNDLE BRANCH BLOCK ABNORMAL ECG WHEN COMPARED WITH ECG OF 12-JAN-2018 13:55, PREMATURE VENTRICULAR COMPLEXES ARE NOW PRESENT ST NOW DEPRESSED IN INFERIOR LEADS Confirmed by DELIA SIMS, CARLOS ([id number]) on 01/23/2018 9:14:08 AM Referred By: Confirmed By:CARLOS LIN MD
[2018-01-23] MEDS: FOLIC ACID 1 MG TABLET (FP) PO SCH (09:15)
[2018-01-23] MEDS: FERROUS SO4 325 MG TABLET (FP) PO SCH (09:15)
[2018-01-23] MEDS: PANTOPRAZOLE SODIUM 40 MG VIAL IVPUSH SCH (09:15)
[2018-01-23] MEDS: ENOXAPARIN NA (PORCINE) 100 MG/1 ML DISP.SYRIN SQ SCH ×2 (09:15→22:16)
[2018-01-23] MEDS: ISOSORBIDE MONONITRATE 30 MG TAB.SR.24H (FP) PO SCH (09:15)
[2018-01-23] MEDS: FUROSEMIDE 20 MG TABLET (FP) PO SCH (09:15)
[2018-01-23] MEDS: CLOPIDOGREL BISULFATE 75 MG TABLET (FP) PO SCH (09:15)
[2018-01-23] MEDS: TAMSULOSIN HCL 0.4 MG CAP PO SCH (09:15)
[2018-01-23] MEDS: POLYETHYLENE GLYCOL 3350 119 GM BTL PO SCH (09:16)
[2018-01-23] MEDS: PREPARATION H NR PRN ×2 (09:16→22:20)
[2018-01-23] MEDS: LISINOPRIL 5 MG TABLET (FP) PO SCH (09:16)
[2018-01-23] MEDS: CLOTRIMAZOLE 1% 10 ML TOPICAL SOLUTION TP SCH ×2 (09:17→22:17)
--- NOTE | 2018-01-23 10:11 | PN ---
Progress Note, Physician History of Present Illness: he patient is a 77 year old male with a significant past medical history of HTN , HLD, CAD (s/p stents), prostate CA, urethral stricture (catheter in place) who presents to the ER with difficulty ranging his legs today. The patient states he noticed significant swelling, redness, and warmth to the bilateral knees. Patient reports he needed assistance to ambulate today, which is new for him. Patient states he was discharged from rehab four days ago and was ambulating appropriately until today. Patient has not eaten today as he is experiencing mild nausea. Patient denies taking any of his medications today. 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 Patient has his catheter in place and draining urine appropriately. Patient has a fever of 100.1 here in the ER. The patient denies chest pain, shortness of breath, headache, and dizziness. Denies chills, vomit, diarrhea, and constipation. Allergies: strawberry, pepper, iohexol Past surgical history: stents Social history: No reported alcohol, drug, or cigarette use. H cabg lithotripsy prostate seeds Ongoing medical problems Afib diagnosed at the hospital during SFA [employer]TAIN[facility]ER 08/2015 and has been on coumadin since then 2015 CAD Coronary artery bypass graft SANTIAGO of left SFA August 11, 2014 Dr. Blanton SANTIAGO of left PDA July 07, 2014 Dr. Blanton dizziness Hyperlipidemia Hypertension Negative MIBI stress test 2013 [place] [facility] NSVT Pauses PCI SANTIAGO of p LCx March 30, 2015 Dr. Blanton PCI LCx 08/17/12 [facility] PCI LCx 07/07/14 Dr. Blanton CONTAINER WASHER/stent right SFA 526/16 DR BLANTON Right SFA 100 occlusion July 07, 2014 Dr. Blanton s/p CONTAINER WASHER drug elluting balloon L SFA 2015 s/p CONTAINER WASHER left SFA 09/25/17 for left foot ulcer s/p urethral stricture after cystoscopy and urethrotomy the patient went into septic shock and was treated with antibiotics and was stabilized. October 2017 - Current Medication List Current Medications: Active Medications Acetaminophen (Tylenol -) 650 mg PO Q6HPO [facility] Last Admin: 01/23/18 05:49 Dose: 650 mg Atorvastatin Calcium (Lipitor -) 20 mg PO HS [facility] Last Admin: 01/22/18 21:38 Dose: 20 mg Benzocaine (Americaine Ointment -) 1 applic [place] PRN PRN PRN Reason: hemorrhoids. Last Admin: 01/22/18 16:55 Dose: 1 applic Clopidogrel Bisulfate (Plavix -) 75 mg PO DAILY [facility] Last Admin: 01/23/18 09:15 Dose: 75 mg Clotrimazole (Clotrimazole) 1 applic TP BID [facility] Last Admin: 01/23/18 09:17 Dose: 1 applic Enoxaparin Sodium (Lovenox -) 90 mg SQ BID [facility] Last Admin: 01/23/18 09:15 Dose: 90 mg Ferrous Sulfate (Feosol -) 325 mg PO DAILY [facility] Last Admin: 01/23/18 09:15 Dose: 325 mg Folic Acid (Folic Acid -) 1 mg PO DAILY [facility] Last Admin: 01/23/18 09:15 Dose: 1 mg Furosemide (Lasix -) 20 mg PO DAILY [facility] Last Admin: 01/23/18 09:15 Dose: 20 mg Piperacillin Sod/Tazobactam (Sod 3.375 gm/ Dextrose) 50 mls @ 100 mls/hr IVPB Q8H-IV [facility]; Protocol Last Admin: 01/23/18 09:15 Dose: 100 mls/hr Vancomycin HCl (Vancomycin 1 Gm Premix -) 1 gm in 200 mls @ 166.667 mls/hr IVPB BID@0600,1800 [facility]; Protocol Last Admin: 01/23/18 05:51 Dose: 166.667 mls/hr Isosorbide Mononitrate (Imdur -) 30 mg PO DAILY [facility] Last Admin: 01/23/18 09:15 Dose: 30 mg Lidocaine HCl (Xylocaine 2% Jelly) 1 applic TP BID PRN PRN Reason: MODERATE PAIN Last Admin: 01/22/18 21:44 Dose: 1 applic Lisinopril (Prinivil) 5 mg PO DAILY [facility] Last Admin: 01/23/18 09:16 Dose: 5 mg Melatonin (Melatonin) 10 mg PO HS PRN PRN Reason: INSOMNIA Last Admin: 01/22/18 21:38 Dose: 10 mg Morphine Sulfate (Morphine Sulfate) 1 mg IVPUSH Q6H PRN PRN Reason: PAIN LEVEL 6-10 Last Admin: 01/22/18 11:18 Dose: 1 mg Pt's Own Med ( Preparation H Ointment) 1 each NR Q12H PRN PRN Reason: HEMORRHOIDS Last Admin: 01/23/18 09:16 Dose: 1 each Ondansetron HCl (Zofran Injection) 8 mg IVPB Q6H PRN PRN Reason: NAUSEA Last Admin: 01/22/18 11:29 Dose: 8 mg Oxycodone HCl (Roxicodone -) 10 mg PO Q4H PRN PRN Reason: PAIN LEVEL 6-10 Last Admin: 01/23/18 02:54 Dose: 10 mg Pantoprazole Sodium (Protonix Iv) 40 mg IVPUSH DAILY [facility] Last Admin: 01/23/18 09:15 Dose: 40 mg Polyethylene Glycol (Miralax (For Daily Use) -) 17 gm PO DAILY [facility] Last Admin: 01/23/18 09:16 Dose: 17 gm Senna (Senna -) 2 tab PO HS PRN PRN Reason: CONSTIPATION Last Admin: 01/12/18 22:42 Dose: 2 tab Sodium Chloride ([place] Nasal [place] -) 2 spray NS BID PRN PRN Reason: NASAL CONGESTION Last Admin: 01/19/18 11:53 Dose: 2 spray Tamsulosin HCl (Flomax -) 0.8 mg PO DAILY@0830 [facility] Last Admin: 01/23/18 09:15 Dose: 0.8 mg - Objective Vital Signs: Vital Signs Temperature 98.9 F 01/23/18 09:23 Pulse Rate 90 01/23/18 09:23 Respiratory Rate 20 01/23/18 09:23 Blood Pressure 112/67 01/23/18 09:23 O2 Sat by Pulse Oximetry (%) 95 01/22/18 21:00 Eyes: Yes: WNL, Conjunctiva Clear, EOM Intact HENT: Yes: WNL, Atraumatic, Normocephalic Neck: Yes: WNL, Supple, Trachea Midline Cardiovascular: Yes: WNL, Regular Rate and Rhythm Respiratory: Yes: WNL, Regular, CTA Bilaterally Gastrointestinal: Yes: WNL, Normal Bowel Sounds Genitourinary: Yes: WNL Musculoskeletal: Yes: WNL Extremities: Yes: WNL Edema: No Integumentary: Yes: WNL Neurological: Yes: WNL, Alert, Oriented ...Motor Strength: WNL Psychiatric: Yes: WNL Labs: CBC, BMP 10/05/18 06:30 01/23/18 06:30 INR, PTT INR 1.20 (0.83-1.09) H 01/23/18 06:30 Assessment/Plan - Problems (1) MRSA bacteremia Assessment/Plan: febrile episodes; initially leukocytotic. antipyretics (avoid non-aspirin NSAIDs). antibiotics per ID (on Zosyn, Vancomycin, Clotrimazole). Code(s): R78.81 - BACTEREMIA (2) UTI (urinary tract infection) Code(s): N39.0 - URINARY TRACT INFECTION, SITE NOT SPECIFIED (3) Acute on chronic systolic (congestive) heart failure Assessment/Plan: On lisinopril. Furosemide prn. F/u Is and Os, daily weight, BUN/Cr, electrolytes. Code(s): I50.23 - ACUTE ON CHRONIC SYSTOLIC (CONGESTIVE) HEART FAILURE (4) Anxiety Code(s): F41.9 - ANXIETY DISORDER, UNSPECIFIED (5) Atrial fibrillation Assessment/Plan: 90 mg bid Lovenox until INR 2-3 with warfarin. EKG in am Code(s): I48.91 - UNSPECIFIED ATRIAL FIBRILLATION (6) Chronic lower back pain Assessment/Plan: spinal studies (xray) results noted; no metastases; no compression; mild lumbar spondylosis. Code(s): M54.5 - LOW BACK PAIN; G89.29 - OTHER CHRONIC PAIN (7) HTN (hypertension) Assessment/Plan: on lisinopril; on furosemide. Code(s): I10 - ESSENTIAL (PRIMARY) HYPERTENSION (8) Hematuria Code(s): R31.9 - HEMATURIA, UNSPECIFIED Qualifiers: Hematuria type: gross Qualified Code(s): R31.0 - Gross hematuria (9) Hyperlipidemia Assessment/Plan: Total cholesterol 118 mg/dL; on atorvastatin 20 mg daily. Code(s): E78.5 - HYPERLIPIDEMIA, UNSPECIFIED (10) Obesity Code(s): E66.9 - OBESITY, UNSPECIFIED (11) Urinary retention Assessment/Plan: . Code(s): R33.9 - RETENTION OF URINE, UNSPECIFIED (12) ASHD (arteriosclerotic heart disease) Assessment/Plan: s/p CABG s/p coronary and LE angioplasty/stents. On clopidogrel; statin; nitrate (Imdur). Code(s): I25.10 - ATHSCL HEART DISEASE OF [place] CORONARY ARTERY W/O ANG PCTRS (13) Anemia Code(s): D64.9 - ANEMIA, UNSPECIFIED (14) Prostate cancer Code(s): C61 - MALIGNANT NEOPLASM OF PROSTATE
--- NOTE | 2018-01-23 10:27 | PN ---
Progress Note, Physician History of Present Illness: patient c/o of hemorrhoidal pain uncomfortable - Current Medication List Current Medications: Active Medications Acetaminophen (Tylenol -) 650 mg PO Q6HPO [facility] Last Admin: 01/23/18 05:49 Dose: 650 mg Atorvastatin Calcium (Lipitor -) 20 mg PO HS [facility] Last Admin: 01/22/18 21:38 Dose: 20 mg Benzocaine (Americaine Ointment -) 1 applic [place] PRN PRN PRN Reason: hemorrhoids. Last Admin: 01/22/18 16:55 Dose: 1 applic Clopidogrel Bisulfate (Plavix -) 75 mg PO DAILY [facility] Last Admin: 01/23/18 09:15 Dose: 75 mg Clotrimazole (Clotrimazole) 1 applic TP BID [facility] Last Admin: 01/23/18 09:17 Dose: 1 applic Enoxaparin Sodium (Lovenox -) 90 mg SQ BID [facility] Last Admin: 01/23/18 09:15 Dose: 90 mg Ferrous Sulfate (Feosol -) 325 mg PO DAILY [facility] Last Admin: 01/23/18 09:15 Dose: 325 mg Folic Acid (Folic Acid -) 1 mg PO DAILY [facility] Last Admin: 01/23/18 09:15 Dose: 1 mg Furosemide (Lasix -) 20 mg PO DAILY [facility] Last Admin: 01/23/18 09:15 Dose: 20 mg Piperacillin Sod/Tazobactam (Sod 3.375 gm/ Dextrose) 50 mls @ 100 mls/hr IVPB Q8H-IV [facility]; Protocol Last Admin: 01/23/18 09:15 Dose: 100 mls/hr Vancomycin HCl (Vancomycin 1 Gm Premix -) 1 gm in 200 mls @ 166.667 mls/hr IVPB BID@0600,1800 [facility]; Protocol Last Admin: 01/23/18 05:51 Dose: 166.667 mls/hr Isosorbide Mononitrate (Imdur -) 30 mg PO DAILY [facility] Last Admin: 01/23/18 09:15 Dose: 30 mg Lidocaine HCl (Xylocaine 2% Jelly) 1 applic TP BID PRN PRN Reason: MODERATE PAIN Last Admin: 01/22/18 21:44 Dose: 1 applic Lisinopril (Prinivil) 5 mg PO DAILY [facility] Last Admin: 10/05/18 09:16 Dose: 5 mg Melatonin (Melatonin) 10 mg PO HS PRN PRN Reason: INSOMNIA Last Admin: 01/22/18 21:38 Dose: 10 mg Morphine Sulfate (Morphine Sulfate) 1 mg IVPUSH Q6H PRN PRN Reason: PAIN LEVEL 6-10 Last Admin: 01/22/18 11:18 Dose: 1 mg Pt's Own Med ( Preparation H Ointment) 1 each NR Q12H PRN PRN Reason: HEMORRHOIDS Last Admin: 01/23/18 09:16 Dose: 1 each Ondansetron HCl (Zofran Injection) 8 mg IVPB Q6H PRN PRN Reason: NAUSEA Last Admin: 01/22/18 11:29 Dose: 8 mg Oxycodone HCl (Roxicodone -) 10 mg PO Q4H PRN PRN Reason: PAIN LEVEL 6-10 Last Admin: 01/23/18 02:54 Dose: 10 mg Pantoprazole Sodium (Protonix Iv) 40 mg IVPUSH DAILY [facility] Last Admin: 01/23/18 09:15 Dose: 40 mg Polyethylene Glycol (Miralax (For Daily Use) -) 17 gm PO DAILY [facility] Last Admin: 01/23/18 09:16 Dose: 17 gm Senna (Senna -) 2 tab PO HS PRN PRN Reason: CONSTIPATION Last Admin: 01/12/18 22:42 Dose: 2 tab Sodium Chloride ([place] Nasal [place] -) 2 spray NS BID PRN PRN Reason: NASAL CONGESTION Last Admin: 01/19/18 11:53 Dose: 2 spray Tamsulosin HCl (Flomax -) 0.8 mg PO DAILY@0830 [facility] Last Admin: 01/23/18 09:15 Dose: 0.8 mg - Objective Vital Signs: Vital Signs Temperature 98.9 F 01/23/18 09:23 Pulse Rate 90 01/23/18 09:23 Respiratory Rate 20 01/23/18 09:23 Blood Pressure 112/67 01/23/18 09:23 O2 Sat by Pulse Oximetry (%) 95 01/22/18 21:00 Constitutional: Yes: No Distress, Calm Cardiovascular: Yes: S1, S2 Gastrointestinal: Yes: Normal Bowel Sounds, Soft Musculoskeletal: Yes: WNL Extremities: Yes: WNL Neurological: Yes: Alert, Oriented Psychiatric: Yes: Alert, Oriented Labs: CBC, BMP 01/23/18 06:30 10/05/18 06:30 INR, PTT INR 1.20 (0.83-1.09) H 01/23/18 06:30 Assessment/Plan patient with multiple medical problems coming with weakness and knee joint swelling Problem List - Problems (1) Fever Code(s): R50.9 - FEVER, UNSPECIFIED (2) Supratherapeutic INR Code(s): R79.1 - ABNORMAL COAGULATION PROFILE (3) Anxiety Code(s): F41.9 - ANXIETY DISORDER, UNSPECIFIED (4) Atrial fibrillation Code(s): I48.91 - UNSPECIFIED ATRIAL FIBRILLATION (5) Chest pain Code(s): R07.9 - CHEST PAIN, UNSPECIFIED Qualifiers: Chest pain type: unspecified Qualified Code(s): R07.9 - Chest pain, unspecified (6) Banegas catheter in place Code(s): Z92.89 - PERSONAL HISTORY OF OTHER MEDICAL TREATMENT (7) HTN (hypertension) Code(s): I10 - ESSENTIAL (PRIMARY) HYPERTENSION (8) Hematuria Code(s): R31.9 - HEMATURIA, UNSPECIFIED Qualifiers: Hematuria type: gross Qualified Code(s): R31.0 - Gross hematuria (9) Hx of CABG Code(s): Z95.1 - PRESENCE OF AORTOCORONARY BYPASS GRAFT (10) Hyperlipidemia Code(s): E78.5 - HYPERLIPIDEMIA, UNSPECIFIED hematuria Assessment/Plan continue current mgmt continue abx physio monitor hematuria rest as per the team
--- NOTE | 2018-01-23 12:17 | PN ---
Progress Note (short form) - Note Progress Note: pt seen/ examined chart reviewed awake/ comfortable except hemorroidal issues afebrile urine clean in bishop Vital Signs Temp 98.9 F 01/23/18 09:23 Pulse 90 01/23/18 09:23 Resp 20 01/23/18 09:23 BP 112/67 01/23/18 09:23 Pulse Ox 95 01/22/18 21:00 Intake & Output 01/22/18 01/23/18 01/23/18 23:59 11:59 23:59 Intake Total 1550 250 Output Total 2400 1000 Balance -850 -750 Intake: IVPB 250 250 Oral 1300 Output: Urine 2400 1000 [place] 2400 1000 Other: Voiding Method Indwelling Catheter Bowel Movement Yes # Bowel Movements 2 Active Medications Acetaminophen (Tylenol -) 650 mg PO Q6HPO [facility] Last Admin: 01/23/18 12:03 Dose: 650 mg Atorvastatin Calcium (Lipitor -) 20 mg PO HS [facility] Last Admin: 01/22/18 21:38 Dose: 20 mg Benzocaine (Americaine Ointment -) 1 applic [place] PRN PRN PRN Reason: hemorrhoids. Last Admin: 01/22/18 16:55 Dose: 1 applic Clopidogrel Bisulfate (Plavix -) 75 mg PO DAILY [facility] Last Admin: 01/23/18 09:15 Dose: 75 mg Clotrimazole (Clotrimazole) 1 applic TP BID [facility] Last Admin: 01/23/18 09:17 Dose: 1 applic Enoxaparin Sodium (Lovenox -) 90 mg SQ BID [facility] Last Admin: 01/23/18 09:15 Dose: 90 mg Ferrous Sulfate (Feosol -) 325 mg PO DAILY [facility] Last Admin: 01/23/18 09:15 Dose: 325 mg Folic Acid (Folic Acid -) 1 mg PO DAILY [facility] Last Admin: 01/23/18 09:15 Dose: 1 mg Furosemide (Lasix -) 20 mg PO DAILY [facility] Last Admin: 01/23/18 09:15 Dose: 20 mg Piperacillin Sod/Tazobactam (Sod 3.375 gm/ Dextrose) 50 mls @ 100 mls/hr IVPB Q8H-IV [facility]; Protocol Last Admin: 01/23/18 09:15 Dose: 100 mls/hr Vancomycin HCl (Vancomycin 1 Gm Premix -) 1 gm in 200 mls @ 166.667 mls/hr IVPB BID@0600,1800 [facility]; Protocol Last Admin: 01/23/18 05:51 Dose: 166.667 mls/hr Isosorbide Mononitrate (Imdur -) 30 mg PO DAILY [facility] Last Admin: 01/23/18 09:15 Dose: 30 mg Lidocaine HCl (Xylocaine 2% Jelly) 1 applic TP BID PRN PRN Reason: MODERATE PAIN Last Admin: 01/22/18 21:44 Dose: 1 applic Lisinopril (Prinivil) 5 mg PO DAILY [facility] Last Admin: 01/23/18 09:16 Dose: 5 mg Melatonin (Melatonin) 10 mg PO HS PRN PRN Reason: INSOMNIA Last Admin: 01/22/18 21:38 Dose: 10 mg Morphine Sulfate (Morphine Sulfate) 1 mg IVPUSH Q6H PRN PRN Reason: PAIN LEVEL 6-10 Last Admin: 01/22/18 11:18 Dose: 1 mg Pt's Own Med ( Preparation H Ointment) 1 each NR Q12H PRN PRN Reason: HEMORRHOIDS Last Admin: 01/23/18 09:16 Dose: 1 each Ondansetron HCl (Zofran Injection) 8 mg IVPB Q6H PRN PRN Reason: NAUSEA Last Admin: 01/22/18 11:29 Dose: 8 mg Oxycodone HCl (Roxicodone -) 10 mg PO Q4H PRN PRN Reason: PAIN LEVEL 6-10 Last Admin: 01/23/18 02:54 Dose: 10 mg Pantoprazole Sodium (Protonix Iv) 40 mg IVPUSH DAILY [facility] Last Admin: 01/23/18 09:15 Dose: 40 mg Polyethylene Glycol (Miralax (For Daily Use) -) 17 gm PO DAILY [facility] Last Admin: 01/23/18 09:16 Dose: 17 gm Senna (Senna -) 2 tab PO HS PRN PRN Reason: CONSTIPATION Last Admin: 01/12/18 22:42 Dose: 2 tab Sodium Chloride ([place] Nasal [place] -) 2 spray NS BID PRN PRN Reason: NASAL CONGESTION Last Admin: 01/19/18 11:53 Dose: 2 spray Tamsulosin HCl (Flomax -) 0.8 mg PO DAILY@0830 [facility] Last Admin: 01/23/18 09:15 Dose: 0.8 mg CBC, BMP 01/23/18 06:30 01/23/18 06:30 Physical Exam S 1 s2 irregular Lungs decreased Abd- soft, NT No edema neuro- alert / awake bishop + PLAN MRSA - off CBI continue present care bishop care continue present care. abx prep H daily oob - chair . will follow Problem List - Problems (1) Anemia Code(s): D64.9 - ANEMIA, UNSPECIFIED (2) MRSA bacteremia Code(s): R78.81 - BACTEREMIA (3) Atrial fibrillation Code(s): I48.91 - UNSPECIFIED ATRIAL FIBRILLATION (4) HTN (hypertension) Code(s): I10 - ESSENTIAL (PRIMARY) HYPERTENSION
[2018-01-23] MEDS: MORPHINE SULFATE 2 MG/ML VIAL IVPUSH PRN (17:13)
[2018-01-23] MEDS: ONDANSETRON 4 MG/2 ML VIAL IVPB PRN (17:40)
[2018-01-23] MEDS: LIDOCAINE HCL 2% JELLY (5 ML/TUBE) TP PRN ×2 (17:41→22:17)
[2018-01-23] MEDS: ATORVASTATIN CA 20 MG TABLET (FP) PO SCH (22:16)
[2018-01-24] MEDS ORDERED: PIPERACILLIN/TAZOBACTAM 3.375 GM VIAL IVPB ONE ×3 (00:09→17:25)
[2018-01-24] MEDS ORDERED: DEXTROSE 5%-WATER - 50 ML IVPB ONE ×3 (00:09→17:25)
[2018-01-24] MEDS: ACETAMINOPHEN 325 MG TABLET (FP) PO SCH ×5 (01:08→23:27)
[2018-01-24] MEDS: PIPERACILLIN/TAZOB 3.375 GM 3.375 GM in DEXTROSE 5%-WATER - 50 ML IVPB SCH ×3 (02:04→18:05)
[2018-01-24] MEDS: oxyCODONE HCL 5 MG TABLET PO PRN ×3 (02:23→22:21)
[2018-01-24] MEDS: VANCOMYCIN 1 GM PREMIX - 1 GM/200 ML BAG IVPB SCH ×2 (06:14→18:05)
[2018-01-24 07:55] LABS: BASO % 0.9 % (0-2.0); EOS % 1.7 % (0-4.5); HEMATOCRIT 29.3 % (35.4-49); HEMOGLOBIN 9.4 GM/dL (11.7-16.9); LYMPH % 14.6 % (8-40); MEAN CELL VOLUME 90.4 fl (80-96); MEAN PLT VOLUME 7.6 fl (7.5-11.1); MONO % 11.1 % (3.8-10.2); NEUT % 71.7 % (42.8-82.8); PLATELET COUNT 340 K/MM3 (134-434); RBC 3.24 M/mm3 (4.00-5.60); RDW 18.5 % (11.9-15.9); WHITE BLOOD COUNT 10.3 K/mm3 (4.0-10.0)
[2018-01-24] MEDS: TAMSULOSIN HCL 0.4 MG CAP PO SCH (08:17)
[2018-01-24 08:18] LABS: ALK PHOS 165 U/L (45-117); ANION GAP 8 MMOL/L (8-16); BILIRUBIN,TOTAL 0.3 mg/dL (0.2-1); BLOOD UREA NITROGEN 12 mg/dL (7-18); CALCIUM 8.8 mg/dL (8.5-10.1); CHLORIDE 102 mmol/L (98-107); CO2 26 mmol/L (21-32); GLUCOSE,RANDOM 106 mg/dL (74-106); POTASSIUM 4.2 mmol/L (3.5-5.1); SGOT/AST 31 U/L (15-37); SGPT/ALT 39 U/L (13-61); SODIUM 136 mmol/L (136-145); TOT PROT 6.4 g/dl (6.4-8.2)
[2018-01-24] MEDS: CLOPIDOGREL BISULFATE 75 MG TABLET (FP) PO SCH (10:16)
[2018-01-24] MEDS: ISOSORBIDE MONONITRATE 30 MG TAB.SR.24H (FP) PO SCH (10:16)
[2018-01-24] MEDS: FERROUS SO4 325 MG TABLET (FP) PO SCH (10:17)
[2018-01-24] MEDS: FOLIC ACID 1 MG TABLET (FP) PO SCH (10:17)
[2018-01-24] MEDS: FUROSEMIDE 20 MG TABLET (FP) PO SCH (10:18)
[2018-01-24] MEDS: LISINOPRIL 5 MG TABLET (FP) PO SCH (10:18)
[2018-01-24] MEDS: PANTOPRAZOLE SODIUM 40 MG VIAL IVPUSH SCH (10:19)
[2018-01-24] MEDS: ENOXAPARIN NA (PORCINE) 100 MG/1 ML DISP.SYRIN SQ SCH ×2 (10:20→22:21)
[2018-01-24] MEDS: POLYETHYLENE GLYCOL 3350 119 GM BTL PO SCH (10:21)
[2018-01-24] MEDS: LIDOCAINE HCL 2% JELLY (5 ML/TUBE) TP PRN (10:21)
[2018-01-24] MEDS: MORPHINE SULFATE 2 MG/ML VIAL IVPUSH PRN ×2 (10:29→18:02)
[2018-01-24] MEDS: CLOTRIMAZOLE 1% 10 ML TOPICAL SOLUTION TP SCH ×2 (11:19→23:27)
--- NOTE | 2018-01-24 11:43 | PN ---
Progress Note, Physician History of Present Illness: he patient is a 77 year old male with a significant past medical history of HTN , HLD, CAD (s/p stents), prostate CA, urethral stricture (catheter in place) who presents to the ER with difficulty ranging his legs today. The patient states he noticed significant swelling, redness, and warmth to the bilateral knees. Patient reports he needed assistance to ambulate today, which is new for him. Patient states he was discharged from rehab four days ago and was ambulating appropriately until today. Patient has not eaten today as he is experiencing mild nausea. Patient denies taking any of his medications today. 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 Patient has his catheter in place and draining urine appropriately. Patient has a fever of 100.1 here in the ER. The patient denies chest pain, shortness of breath, headache, and dizziness. Denies chills, vomit, diarrhea, and constipation. Allergies: strawberry, pepper, iohexol Past surgical history: stents Social history: No reported alcohol, drug, or cigarette use. H cabg lithotripsy prostate seeds Ongoing medical problems Afib diagnosed at the hospital during SFA [employer]LECT[employer] 08/2015 and has been on coumadin since then 2015 CAD Coronary artery bypass graft SANTIAGO of left SFA August 11, 2014 Dr. Blanton SANTIAGO of left PDA July 07, 2014 Dr. Blanton dizziness Hyperlipidemia Hypertension Negative MIBI stress test 2013 Totz Presb. NSVT Pauses PCI SANTIAGO of p LCx March 30, 2015 Dr. Blanton PCI LCx 08/17/12 [facility] PCI LCx 07/07/14 Dr. Blanton ELECTRICIAN SOUND/stent right SFA 526/16 DR BLANTON Right SFA 100 occlusion July 07, 2014 Dr. Blanton s/p ELECTRICIAN SOUND drug elluting balloon L SFA 2015 s/p ELECTRICIAN SOUND left SFA 09/25/17 for left foot ulcer s/p urethral stricture after cystoscopy and urethrotomy the patient went into septic shock and was treated with antibiotics and was stabilized. October 2017 - Current Medication List Current Medications: Active Medications Acetaminophen (Tylenol -) 650 mg PO Q6HPO [facility] Last Admin: 01/24/18 06:16 Dose: 650 mg Atorvastatin Calcium (Lipitor -) 20 mg PO HS [facility] Last Admin: 01/23/18 22:16 Dose: 20 mg Benzocaine (Americaine Ointment -) 1 applic [place] PRN PRN PRN Reason: hemorrhoids. Last Admin: 01/22/18 16:55 Dose: 1 applic Clopidogrel Bisulfate (Plavix -) 75 mg PO DAILY [facility] Last Admin: 01/24/18 10:16 Dose: 75 mg Clotrimazole (Clotrimazole) 1 applic TP BID [facility] Last Admin: 01/24/18 11:19 Dose: 1 applic Enoxaparin Sodium (Lovenox -) 90 mg SQ BID [facility] Last Admin: 01/24/18 10:20 Dose: 90 mg Ferrous Sulfate (Feosol -) 325 mg PO DAILY [facility] Last Admin: 01/24/18 10:17 Dose: 325 mg Folic Acid (Folic Acid -) 1 mg PO DAILY [facility] Last Admin: 01/24/18 10:17 Dose: 1 mg Furosemide (Lasix -) 20 mg PO DAILY [facility] Last Admin: 01/24/18 10:18 Dose: 20 mg Piperacillin Sod/Tazobactam (Sod 3.375 gm/ Dextrose) 50 mls @ 100 mls/hr IVPB Q8H-IV [facility]; Protocol Last Admin: 01/24/18 10:15 Dose: 100 mls/hr Vancomycin HCl (Vancomycin 1 Gm Premix -) 1 gm in 200 mls @ 166.667 mls/hr IVPB BID@0600,1800 JOR[facility]; Protocol Last Admin: 01/24/18 06:14 Dose: 166.667 mls/hr Isosorbide Mononitrate (Imdur -) 30 mg PO DAILY [facility] Last Admin: 01/24/18 10:16 Dose: 30 mg Lidocaine HCl (Xylocaine 2% Jelly) 1 applic TP BID PRN PRN Reason: MODERATE PAIN Last Admin: 01/24/18 10:21 Dose: 1 applic Lisinopril (Prinivil) 5 mg PO DAILY [facility] Last Admin: 01/24/18 10:18 Dose: 5 mg Melatonin (Melatonin) 10 mg PO HS PRN PRN Reason: INSOMNIA Last Admin: 01/22/18 21:38 Dose: 10 mg Morphine Sulfate (Morphine Sulfate) 1 mg IVPUSH Q6H PRN PRN Reason: PAIN LEVEL 6-10 Last Admin: 01/24/18 10:29 Dose: 1 mg Pt's Own Med ( Preparation H Ointment) 1 each NR Q12H PRN PRN Reason: HEMORRHOIDS Last Admin: 01/23/18 22:20 Dose: 1 each Ondansetron HCl (Zofran Injection) 8 mg IVPB Q6H PRN PRN Reason: NAUSEA Last Admin: 01/23/18 17:40 Dose: 8 mg Oxycodone HCl (Roxicodone -) 10 mg PO Q4H PRN PRN Reason: PAIN LEVEL 6-10 Last Admin: 01/24/18 02:23 Dose: 10 mg Pantoprazole Sodium (Protonix Iv) 40 mg IVPUSH DAILY [facility] Last Admin: 01/24/18 10:19 Dose: 40 mg Polyethylene Glycol (Miralax (For Daily Use) -) 17 gm PO DAILY [facility] Last Admin: 01/24/18 10:21 Dose: 17 gm Senna (Senna -) 2 tab PO HS PRN PRN Reason: CONSTIPATION Last Admin: 01/12/18 22:42 Dose: 2 tab Sodium Chloride ([place] Nasal [place] -) 2 spray NS BID PRN PRN Reason: NASAL CONGESTION Last Admin: 01/19/18 11:53 Dose: 2 spray Tamsulosin HCl (Flomax -) 0.8 mg PO DAILY@0830 [facility] Last Admin: 01/24/18 08:17 Dose: 0.8 mg - Objective Vital Signs: Vital Signs Temperature 98.4 F 01/24/18 06:00 Pulse Rate 75 01/24/18 06:00 Respiratory Rate 20 01/24/18 06:00 Blood Pressure 112/48 L 01/24/18 06:00 O2 Sat by Pulse Oximetry (%) 97 01/23/18 21:00 Eyes: Yes: WNL, Conjunctiva Clear, EOM Intact HENT: Yes: WNL, Atraumatic, Normocephalic Neck: Yes: WNL, Supple, Trachea Midline Cardiovascular: Yes: WNL, Regular Rate and Rhythm Respiratory: Yes: WNL, Regular, CTA Bilaterally Gastrointestinal: Yes: WNL, Normal Bowel Sounds Genitourinary: Yes: WNL Musculoskeletal: Yes: WNL Extremities: Yes: WNL Edema: No Integumentary: Yes: WNL Neurological: Yes: WNL, Alert, Oriented ...Motor Strength: WNL Psychiatric: Yes: WNL Labs: CBC, BMP 01/24/18 06:15 01/24/18 06:15 INR, PTT INR 1.20 (0.83-1.09) H 01/23/18 06:30 Assessment/Plan - Problems (1) MRSA bacteremia Assessment/Plan: febrile episodes; initially leukocytotic. antipyretics (avoid non-aspirin NSAIDs). antibiotics per ID (on Zosyn, Vancomycin, Clotrimazole). Code(s): R78.81 - BACTEREMIA (2) UTI (urinary tract infection) Code(s): N39.0 - URINARY TRACT INFECTION, SITE NOT SPECIFIED (3) Acute on chronic systolic (congestive) heart failure Assessment/Plan: On lisinopril. Furosemide prn. F/u Is and Os, daily weight, BUN/Cr, electrolytes. Code(s): I50.23 - ACUTE ON CHRONIC SYSTOLIC (CONGESTIVE) HEART FAILURE (4) Anxiety Code(s): F41.9 - ANXIETY DISORDER, UNSPECIFIED (5) Atrial fibrillation Assessment/Plan: 90 mg bid Lovenox until INR 2-3 with warfarin. Will restart warfarin EKG in am Code(s): I48.91 - UNSPECIFIED ATRIAL FIBRILLATION (6) Chronic lower back pain Assessment/Plan: spinal studies (xray) results noted; no metastases; no compression; mild lumbar spondylosis. Code(s): M54.5 - LOW BACK PAIN; G89.29 - OTHER CHRONIC PAIN (7) HTN (hypertension) Assessment/Plan: on lisinopril; on furosemide. Code(s): I10 - ESSENTIAL (PRIMARY) HYPERTENSION (8) Hematuria Code(s): R31.9 - HEMATURIA, UNSPECIFIED Qualifiers: Hematuria type: gross Qualified Code(s): R31.0 - Gross hematuria (9) Hyperlipidemia Assessment/Plan: Total cholesterol 118 mg/dL; on atorvastatin 20 mg daily. Code(s): E78.5 - HYPERLIPIDEMIA, UNSPECIFIED (10) Obesity Code(s): E66.9 - OBESITY, UNSPECIFIED (11) Urinary retention Assessment/Plan: . Code(s): R33.9 - RETENTION OF URINE, UNSPECIFIED (12) ASHD (arteriosclerotic heart disease) Assessment/Plan: s/p CABG s/p coronary and LE angioplasty/stents. On clopidogrel; statin; nitrate (Imdur). Code(s): I25.10 - ATHSCL HEART DISEASE OF [place] CORONARY ARTERY W/O ANG PCTRS (13) Anemia Code(s): D64.9 - ANEMIA, UNSPECIFIED (14) Prostate cancer Code(s): C61 - MALIGNANT NEOPLASM OF PROSTATE
--- NOTE | 2018-01-24 13:29 | PN ---
Progress Note (short form) - Note Progress Note: Pt examined discontinued CBI pain is better controlled Vital Signs - 24 hr 01/23/18 01/23/18 01/24/18 18:30 21:00 06:00 Temperature 97.8 F 98.4 F Pulse Rate 69 75 Respiratory 20 20 20 Rate Blood Pressure 120/56 L 112/48 L O2 Sat by Pulse 97 Oximetry (%) 01/24/18 01/24/18 01/24/18 09:00 10:00 15:56 Temperature 97.4 F L 98.1 F Pulse Rate 83 68 Respiratory 18 18 19 Rate Blood Pressure 129/72 108/51 L O2 Sat by Pulse 98 Oximetry (%) Current Medications Generic Name Dose Route Start Last Admin Trade Name Freq PRN Reason Stop Dose Admin Acetaminophen 650 mg 01/12/18 20:45 01/24/18 13:29 Tylenol - PO 650 mg Q6HPO [facility]ORJE Administration Atorvastatin Calcium 20 mg 01/12/18 22:00 01/23/18 22:16 Lipitor - PO 20 mg HS [facility]ORJE Administration Benzocaine 1 applic 01/22/18 07:52 01/22/18 16:55 Americaine Ointment - ND 1 applic PRN PRN Administration hemorrhoids. Clopidogrel Bisulfate 75 mg 01/13/18 10:00 01/24/18 10:16 Plavix - PO 75 mg DAILY [facility]ORJE Administration Clotrimazole 1 applic 01/20/18 10:00 01/24/18 11:19 Clotrimazole TP 1 applic BID [facility]ORJE Administration Docusate Sodium 100 mg 01/24/18 13:28 Colace - PO Q8H PRN CONSTIPATION Enoxaparin Sodium 90 mg 01/21/18 22:00 01/24/18 10:20 Lovenox - SQ 90 mg BID [facility]OR[facility] Administration Ferrous Sulfate 325 mg 01/23/18 10:00 01/24/18 10:17 Feosol - PO 325 mg DAILY [facility] Administration Folic Acid 1 mg 01/13/18 10:00 01/24/18 10:17 Folic Acid - PO 1 mg DAILY [facility] Administration Furosemide 20 mg 01/13/18 10:00 01/24/18 10:18 Lasix - PO 20 mg DAILY [facility]RE Administration Piperacillin Sod/Tazobactam 50 mls @ 100 mls/hr 01/14/18 14:30 01/24/18 10:15 Sod 3.375 gm/ Dextrose IVPB 100 mls/hr Q8H-IV [facility] Administration Protocol Vancomycin HCl 1 gm in 200 mls @ 166.667 mls/hr 01/18/18 12:30 01/24/18 06:14 Vancomycin 1 Gm Premix - IVPB 166.667 mls/hr BID@0600,1800 [facility]ORJE Administration Protocol Isosorbide Mononitrate 30 mg 01/13/18 10:00 01/24/18 10:16 Imdur - PO 30 mg DAILY [facility] Administration Lidocaine HCl 1 applic 01/13/18 11:44 01/24/18 10:21 Xylocaine 2% Jelly TP 1 applic BID PRN Administration MODERATE PAIN Lisinopril 5 mg 01/13/18 10:00 01/24/18 10:18 Prinivil PO 5 mg DAILY [facility] Administration Melatonin 10 mg 01/21/18 11:42 01/22/18 21:38 Melatonin PO 10 mg HS PRN Administration INSOMNIA Morphine Sulfate 1 mg 01/22/18 10:53 01/24/18 10:29 Morphine Sulfate IVPUSH 1 mg Q6H PRN Administration PAIN LEVEL 6-10 Pt's Own Med ( 1 each 01/22/18 18:53 01/23/18 22:20 Preparation H NR 1 each Ointment) Q12H PRN Administration HEMORRHOIDS Ondansetron HCl 8 mg 01/22/18 10:53 01/23/18 17:40 Zofran Injection IVPB 8 mg Q6H PRN Administration NAUSEA Oxycodone HCl 10 mg 01/22/18 10:12 01/24/18 13:29 Roxicodone - PO 10 mg Q4H PRN Administration PAIN LEVEL 6-10 Pantoprazole Sodium 40 mg 01/22/18 11:00 01/24/18 10:19 Protonix Iv IVPUSH 40 mg DAILY [facility] Administration Polyethylene Glycol 17 gm 01/15/18 13:00 01/24/18 10:21 Miralax (For Daily Use) - PO 17 gm DAILY [facility] Administration Senna 2 tab 01/12/18 20:07 01/12/18 22:42 Senna - PO 2 tab HS PRN Administration CONSTIPATION Sodium Chloride 2 spray 01/13/18 11:46 01/19/18 11:53 [place] Nasal [place] - NS 2 spray BID PRN Administration NASAL CONGESTION Tamsulosin HCl 0.8 mg 01/13/18 08:30 01/24/18 08:17 Flomax - PO 0.8 mg DAILY@0830 [facility] Administration Warfarin Sodium 4 mg 01/24/18 18:00 Coumadin - PO DAILY@1800 [facility] Laboratory Results - last 24 hr 01/24/18 01/24/18 06:15 06:15 WBC 10.3 H RBC 3.24 L Hgb 9.4 L Hct 29.3 L MCV 90.4 MCH 29.0 MCHC 32.0 RDW 18.5 H Plt Count 340 MPV 7.6 Absolute Neuts (auto) 7.4 Neutrophils % 71.7 Lymphocytes % 14.6 D Monocytes % 11.1 H Eosinophils % 1.7 Basophils % 0.9 Nucleated RBC % 0 Sodium 136 Potassium 4.2 Chloride 102 Carbon Dioxide 26 Anion Gap 8 BUN 12 Creatinine 1.0 Creat Clearance w eGFR > 60 Random Glucose 106 Calcium 8.8 Total Bilirubin 0.3 AST 31 ALT 39 Alkaline Phosphatase 165 H Total Protein 6.4 Albumin 3.0 L S s2 irregular Lungs decreased Abd- soft, NT No edema PLAN MRSA- blood cultures repeated negative - off CBI on iv antibiotics no procedures planned - needs to wait 3 more months as per Dr Goldberg's conversation with Urologist- DR Garcia Morphine iv for pain control Monitor CBC restart Warfarin- monitor INR Problem List - Problems (1) Supratherapeutic INR Code(s): R79.1 - ABNORMAL COAGULATION PROFILE (2) Anxiety Code(s): F41.9 - ANXIETY DISORDER, UNSPECIFIED (3) Atrial fibrillation Code(s): I48.91 - UNSPECIFIED ATRIAL FIBRILLATION (4) Chest pain Code(s): R07.9 - CHEST PAIN, UNSPECIFIED Qualifiers: Chest pain type: unspecified Qualified Code(s): R07.9 - Chest pain, unspecified (5) HTN (hypertension) Code(s): I10 - ESSENTIAL (PRIMARY) HYPERTENSION (6) Hematuria Code(s): R31.9 - HEMATURIA, UNSPECIFIED Qualifiers: Hematuria type: gross Qualified Code(s): R31.0 - Gross hematuria (7) Hx of CABG Code(s): Z95.1 - PRESENCE OF AORTOCORONARY BYPASS GRAFT (8) Hyperlipidemia Code(s): E78.5 - HYPERLIPIDEMIA, UNSPECIFIED (9) MRSA bacteremia Code(s): R78.81 - BACTEREMIA (10) UTI (urinary tract infection) Code(s): N39.0 - URINARY TRACT INFECTION, SITE NOT SPECIFIED
--- NOTE | 2018-01-24 14:03 | PN ---
Progress Note, Physician History of Present Illness: stable hemorrhoids bothering him - Current Medication List Current Medications: Active Medications Acetaminophen (Tylenol -) 650 mg PO Q6HPO [facility] Last Admin: 01/24/18 13:29 Dose: 650 mg Atorvastatin Calcium (Lipitor -) 20 mg PO HS [facility] Last Admin: 01/23/18 22:16 Dose: 20 mg Benzocaine (Americaine Ointment -) 1 applic [place] PRN PRN PRN Reason: hemorrhoids. Last Admin: 01/22/18 16:55 Dose: 1 applic Clopidogrel Bisulfate (Plavix -) 75 mg PO DAILY [facility] Last Admin: 01/24/18 10:16 Dose: 75 mg Clotrimazole (Clotrimazole) 1 applic TP BID [facility] Last Admin: 01/24/18 11:19 Dose: 1 applic Docusate Sodium (Colace -) 100 mg PO Q8H PRN PRN Reason: CONSTIPATION Enoxaparin Sodium (Lovenox -) 90 mg SQ BID [facility] Last Admin: 01/24/18 10:20 Dose: 90 mg Ferrous Sulfate (Feosol -) 325 mg PO DAILY [facility] Last Admin: 01/24/18 10:17 Dose: 325 mg Folic Acid (Folic Acid -) 1 mg PO DAILY [facility] Last Admin: 01/24/18 10:17 Dose: 1 mg Furosemide (Lasix -) 20 mg PO DAILY [facility] Last Admin: 01/24/18 10:18 Dose: 20 mg Piperacillin Sod/Tazobactam (Sod 3.375 gm/ Dextrose) 50 mls @ 100 mls/hr IVPB Q8H-IV [facility]; Protocol Last Admin: 01/24/18 10:15 Dose: 100 mls/hr Vancomycin HCl (Vancomycin 1 Gm Premix -) 1 gm in 200 mls @ 166.667 mls/hr IVPB BID@0600,1800 [facility]; Protocol Last Admin: 01/24/18 06:14 Dose: 166.667 mls/hr Isosorbide Mononitrate (Imdur -) 30 mg PO DAILY [facility] Last Admin: 01/24/18 10:16 Dose: 30 mg Lidocaine HCl (Xylocaine 2% Jelly) 1 applic TP BID PRN PRN Reason: MODERATE PAIN Last Admin: 01/24/18 10:21 Dose: 1 applic Lisinopril (Prinivil) 5 mg PO DAILY [facility] Last Admin: 01/24/18 10:18 Dose: 5 mg Melatonin (Melatonin) 10 mg PO HS PRN PRN Reason: INSOMNIA Last Admin: 01/22/18 21:38 Dose: 10 mg Morphine Sulfate (Morphine Sulfate) 1 mg IVPUSH Q6H PRN PRN Reason: PAIN LEVEL 6-10 Last Admin: 01/24/18 10:29 Dose: 1 mg Pt's Own Med ( Preparation H Ointment) 1 each NR Q12H PRN PRN Reason: HEMORRHOIDS Last Admin: 01/23/18 22:20 Dose: 1 each Ondansetron HCl (Zofran Injection) 8 mg IVPB Q6H PRN PRN Reason: NAUSEA Last Admin: 01/23/18 17:40 Dose: 8 mg Oxycodone HCl (Roxicodone -) 10 mg PO Q4H PRN PRN Reason: PAIN LEVEL 6-10 Last Admin: 01/24/18 13:29 Dose: 10 mg Pantoprazole Sodium (Protonix Iv) 40 mg IVPUSH DAILY [facility] Last Admin: 01/24/18 10:19 Dose: 40 mg Polyethylene Glycol (Miralax (For Daily Use) -) 17 gm PO DAILY [facility] Last Admin: 01/24/18 10:21 Dose: 17 gm Senna (Senna -) 2 tab PO HS PRN PRN Reason: CONSTIPATION Last Admin: 01/12/18 22:42 Dose: 2 tab Sodium Chloride ([place] Nasal [place] -) 2 spray NS BID PRN PRN Reason: NASAL CONGESTION Last Admin: 01/19/18 11:53 Dose: 2 spray Tamsulosin HCl (Flomax -) 0.8 mg PO DAILY@0830 [facility] Last Admin: 01/24/18 08:17 Dose: 0.8 mg Warfarin Sodium (Coumadin -) 4 mg PO DAILY@1800 [facility] - Objective Vital Signs: Vital Signs Temperature 97.4 F L 01/24/18 10:00 Pulse Rate 83 01/24/18 10:00 Respiratory Rate 18 01/24/18 10:00 Blood Pressure 129/72 01/24/18 10:00 O2 Sat by Pulse Oximetry (%) 98 01/24/18 09:00 Constitutional: Yes: Calm, Mild Distress Cardiovascular: Yes: S1, S2 Gastrointestinal: Yes: Normal Bowel Sounds, Soft Musculoskeletal: Yes: WNL Extremities: Yes: WNL Neurological: Yes: Alert, Oriented Psychiatric: Yes: Alert, Oriented Labs: CBC, BMP 01/24/18 06:15 01/24/18 06:15 INR, PTT INR 1.20 (0.83-1.09) H 01/23/18 06:30 Assessment/Plan patient with multiple medical problems coming with weakness and knee joint swelling Problem List - Problems (1) Fever Code(s): R50.9 - FEVER, UNSPECIFIED (2) Supratherapeutic INR Code(s): R79.1 - ABNORMAL COAGULATION PROFILE (3) Anxiety Code(s): F41.9 - ANXIETY DISORDER, UNSPECIFIED (4) Atrial fibrillation Code(s): I48.91 - UNSPECIFIED ATRIAL FIBRILLATION (5) Chest pain Code(s): R07.9 - CHEST PAIN, UNSPECIFIED Qualifiers: Chest pain type: unspecified Qualified Code(s): R07.9 - Chest pain, unspecified (6) [place] catheter in place Code(s): Z92.89 - PERSONAL HISTORY OF OTHER MEDICAL TREATMENT (7) HTN (hypertension) Code(s): I10 - ESSENTIAL (PRIMARY) HYPERTENSION (8) Hematuria Code(s): R31.9 - HEMATURIA, UNSPECIFIED Qualifiers: Hematuria type: gross Qualified Code(s): R31.0 - Gross hematuria (9) Hx of CABG Code(s): Z95.1 - PRESENCE OF AORTOCORONARY BYPASS GRAFT (10) Hyperlipidemia Code(s): E78.5 - HYPERLIPIDEMIA, UNSPECIFIED hematuria Assessment/Plan continue current mgmt continue abx physio monitor hematuria rest as per the team complete the abx course
[2018-01-24] MEDS ORDERED: WARFARIN NA 2 MG TABLET (UD) PO SCH (18:00)
[2018-01-24] MEDS: MELATONIN 5 MG TABLETS PO PRN (22:22)
[2018-01-24] MEDS: ATORVASTATIN CA 20 MG TABLET (FP) PO SCH (22:22)
[2018-01-25] MEDS ORDERED: DEXTROSE 5%-WATER - 50 ML IVPB ONE ×3 (02:24→17:51)
[2018-01-25] MEDS ORDERED: PIPERACILLIN/TAZOBACTAM 3.375 GM VIAL IVPB ONE ×3 (02:24→17:51)
[2018-01-25] MEDS: PIPERACILLIN/TAZOB 3.375 GM 3.375 GM in DEXTROSE 5%-WATER - 50 ML IVPB SCH ×3 (02:33→18:12)
[2018-01-25] MEDS: oxyCODONE HCL 5 MG TABLET PO PRN ×3 (03:18→18:11)
[2018-01-25] MEDS ORDERED: PT OWN MED DRAWER 7, Y5N ONE ×3 (05:24→11:19)
[2018-01-25] MEDS: LIDOCAINE HCL 2% JELLY (5 ML/TUBE) TP PRN (05:26)
[2018-01-25] MEDS: ACETAMINOPHEN 325 MG TABLET (FP) PO SCH ×4 (05:26→23:10)
[2018-01-25] MEDS: VANCOMYCIN 1 GM PREMIX - 1 GM/200 ML BAG IVPB SCH (05:27)
[2018-01-25 06:56] LABS: HEMATOCRIT 27.8 % (35.4-49); HEMOGLOBIN 8.8 GM/dL (11.7-16.9); MCH 28.8 pg (25.7-33.7); MCHC 31.7 g/dl (32.0-35.9); MEAN CELL VOLUME 90.8 fl (80-96); MEAN PLT VOLUME 7.4 fl (7.5-11.1); PLATELET COUNT 338 K/MM3 (134-434); RBC 3.06 M/mm3 (4.00-5.60); RDW 18.9 % (11.9-15.9); WHITE BLOOD COUNT 9.2 K/mm3 (4.0-10.0)
[2018-01-25 07:10] LABS: INR 1.11 (0.83-1.09); PROTHROMBIN TIME (PATIENT) 13.1 SEC (9.7-13.0)
[2018-01-25] MEDS: MORPHINE SULFATE 2 MG/ML VIAL IVPUSH PRN ×2 (08:11→21:25)
[2018-01-25] MEDS: TAMSULOSIN HCL 0.4 MG CAP PO SCH (08:24)
--- NOTE | 2018-01-25 08:28 | PN ---
Progress Note, Physician History of Present Illness: he patient is a 77 year old male with a significant past medical history of HTN , HLD, CAD (s/p stents), prostate CA, urethral stricture (catheter in place) who presents to the ER with difficulty ranging his legs today. The patient states he noticed significant swelling, redness, and warmth to the bilateral knees. Patient reports he needed assistance to ambulate today, which is new for him. Patient states he was discharged from rehab four days ago and was ambulating appropriately until today. Patient has not eaten today as he is experiencing mild nausea. Patient denies taking any of his medications today. 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 Patient has his catheter in place and draining urine appropriately. Patient has a fever of 100.1 here in the ER. The patient denies chest pain, shortness of breath, headache, and dizziness. Denies chills, vomit, diarrhea, and constipation. Allergies: strawberry, pepper, iohexol Past surgical history: stents Social history: No reported alcohol, drug, or cigarette use. H cabg lithotripsy prostate seeds Ongoing medical problems Afib diagnosed at the hospital during [facility] [employer] 08/2015 and has been on coumadin since then 2015 CAD Coronary artery bypass graft SANTIAGO of left SFA August 11, 2014 Dr. Blanton SANTIAGO of left PDA July 07, 2014 Dr. Blanton dizziness Hyperlipidemia Hypertension Negative MIBI stress test 2013 [place] [facility] NSVT Pauses PCI SANTIAGO of p LCx March 30, 2015 Dr. Blanton PCI LCx 08/17/12 Franny [facility] PCI LCx 07/07/14 Dr. Blanton CUSTOMER CARE VOICE CONSULTANT/stent right SFA 526/16 DR BLNATON Right SFA 100 occlusion July 07, 2014 Dr. Blanton s/p CUSTOMER CARE VOICE CONSULTANT drug elluting balloon L SFA 2015 s/p CUSTOMER CARE VOICE CONSULTANT left SFA 09/25/17 for left foot ulcer s/p urethral stricture after cystoscopy and urethrotomy the patient went into septic shock and was treated with antibiotics and was stabilized. October 2017 - Current Medication List Current Medications: Active Medications Acetaminophen (Tylenol -) 650 mg PO Q6HPO [facility] Last Admin: 01/25/18 05:26 Dose: 650 mg Atorvastatin Calcium (Lipitor -) 20 mg PO HS [facility] Last Admin: 01/24/18 22:22 Dose: 20 mg Benzocaine (Americaine Ointment -) 1 applic [place] PRN PRN PRN Reason: hemorrhoids. Last Admin: 01/22/18 16:55 Dose: 1 applic Clopidogrel Bisulfate (Plavix -) 75 mg PO DAILY [facility] Last Admin: 01/24/18 10:16 Dose: 75 mg Clotrimazole (Clotrimazole) 1 applic TP BID [facility] Last Admin: 01/24/18 23:27 Dose: 1 applic Docusate Sodium (Colace -) 100 mg PO Q8H PRN PRN Reason: CONSTIPATION Enoxaparin Sodium (Lovenox -) 90 mg SQ BID [facility] Last Admin: 01/24/18 22:21 Dose: 90 mg Ferrous Sulfate (Feosol -) 325 mg PO DAILY [facility] Last Admin: 01/24/18 10:17 Dose: 325 mg Folic Acid (Folic Acid -) 1 mg PO DAILY [facility] Last Admin: 01/24/18 10:17 Dose: 1 mg Furosemide (Lasix -) 20 mg PO DAILY [facility] Last Admin: 01/24/18 10:18 Dose: 20 mg Piperacillin Sod/Tazobactam (Sod 3.375 gm/ Dextrose) 50 mls @ 100 mls/hr IVPB Q8H-IV [facility]; Protocol Last Admin: 01/25/18 02:33 Dose: 100 mls/hr Vancomycin HCl (Vancomycin 1 Gm Premix -) 1 gm in 200 mls @ 166.667 mls/hr IVPB BID@0600,1800 [facility]; Protocol Last Admin: 01/25/18 05:27 Dose: 166.667 mls/hr Isosorbide Mononitrate (Imdur -) 30 mg PO DAILY [facility] Last Admin: 01/24/18 10:16 Dose: 30 mg Lidocaine HCl (Xylocaine 2% Jelly) 1 applic TP BID PRN PRN Reason: MODERATE PAIN Last Admin: 01/25/18 05:26 Dose: 1 applic Lisinopril (Prinivil) 5 mg PO DAILY [facility] Last Admin: 01/24/18 10:18 Dose: 5 mg Melatonin (Melatonin) 10 mg PO HS PRN PRN Reason: INSOMNIA Last Admin: 01/24/18 22:22 Dose: 10 mg Morphine Sulfate (Morphine Sulfate) 1 mg IVPUSH Q6H PRN PRN Reason: PAIN LEVEL 6-10 Last Admin: 01/25/18 08:11 Dose: 1 mg Pt's Own Med ( Preparation H Ointment) 1 each NR Q12H PRN PRN Reason: HEMORRHOIDS Last Admin: 01/23/18 22:20 Dose: 1 each Ondansetron HCl (Zofran Injection) 8 mg IVPB Q6H PRN PRN Reason: NAUSEA Last Admin: 01/23/18 17:40 Dose: 8 mg Oxycodone HCl (Roxicodone -) 10 mg PO Q4H PRN PRN Reason: PAIN LEVEL 6-10 Last Admin: 01/25/18 03:18 Dose: 10 mg Pantoprazole Sodium (Protonix Iv) 40 mg IVPUSH DAILY [facility] Last Admin: 01/24/18 10:19 Dose: 40 mg Polyethylene Glycol (Miralax (For Daily Use) -) 17 gm PO DAILY [facility] Last Admin: 01/24/18 10:21 Dose: 17 gm Senna (Senna -) 2 tab PO HS PRN PRN Reason: CONSTIPATION Last Admin: 01/12/18 22:42 Dose: 2 tab Sodium Chloride ([place] Nasal [place] -) 2 spray NS BID PRN PRN Reason: NASAL CONGESTION Last Admin: 01/19/18 11:53 Dose: 2 spray Tamsulosin HCl (Flomax -) 0.8 mg PO DAILY@0830 [facility] Last Admin: 01/24/18 08:17 Dose: 0.8 mg Warfarin Sodium (Coumadin -) 4 mg PO DAILY@1800 [facility] Last Admin: 01/24/18 18:04 Dose: 4 mg - Objective Vital Signs: Vital Signs Temperature 97.6 F 01/25/18 06:00 Pulse Rate 69 01/25/18 06:00 Respiratory Rate 19 01/25/18 06:00 Blood Pressure 100/63 01/25/18 06:00 O2 Sat by Pulse Oximetry (%) 98 01/24/18 21:00 Eyes: Yes: WNL, Conjunctiva Clear, EOM Intact HENT: Yes: WNL, Atraumatic, Normocephalic Neck: Yes: WNL, Supple, Trachea Midline Cardiovascular: Yes: WNL, Regular Rate and Rhythm Respiratory: Yes: WNL, Regular, CTA Bilaterally Gastrointestinal: Yes: WNL, Normal Bowel Sounds Genitourinary: Yes: WNL Musculoskeletal: Yes: WNL Extremities: Yes: WNL Edema: No Integumentary: Yes: WNL Neurological: Yes: WNL, Alert, Oriented ...Motor Strength: WNL Psychiatric: Yes: WNL Labs: CBC, BMP 01/25/18 06:00 01/24/18 06:15 INR, PTT INR 1.11 (0.83-1.09) H 01/25/18 06:00 Assessment/Plan - Problems (1) MRSA bacteremia Assessment/Plan: febrile episodes; initially leukocytotic. antipyretics (avoid non-aspirin NSAIDs). antibiotics per ID (on Zosyn, Vancomycin, Clotrimazole). Code(s): R78.81 - BACTEREMIA (2) UTI (urinary tract infection) Code(s): N39.0 - URINARY TRACT INFECTION, SITE NOT SPECIFIED (3) Acute on chronic systolic (congestive) heart failure Assessment/Plan: On lisinopril. Furosemide prn. F/u Is and Os, daily weight, BUN/Cr, electrolytes. Code(s): I50.23 - ACUTE ON CHRONIC SYSTOLIC (CONGESTIVE) HEART FAILURE (4) Anxiety Code(s): F41.9 - ANXIETY DISORDER, UNSPECIFIED (5) Atrial fibrillation Assessment/Plan: 90 mg bid Lovenox until INR 2-3 with warfarin. Will restart warfarin EKG in am Code(s): I48.91 - UNSPECIFIED ATRIAL FIBRILLATION (6) Chronic lower back pain Assessment/Plan: spinal studies (xray) results noted; no metastases; no compression; mild lumbar spondylosis. Code(s): M54.5 - LOW BACK PAIN; G89.29 - OTHER CHRONIC PAIN (7) HTN (hypertension) Assessment/Plan: on lisinopril; on furosemide. Code(s): I10 - ESSENTIAL (PRIMARY) HYPERTENSION (8) Hematuria Code(s): R31.9 - HEMATURIA, UNSPECIFIED Qualifiers: Hematuria type: gross Qualified Code(s): R31.0 - Gross hematuria (9) Hyperlipidemia Assessment/Plan: Total cholesterol 118 mg/dL; on atorvastatin 20 mg daily. Code(s): E78.5 - HYPERLIPIDEMIA, UNSPECIFIED (10) Obesity Code(s): E66.9 - OBESITY, UNSPECIFIED (11) Urinary retention Assessment/Plan: . Code(s): R33.9 - RETENTION OF URINE, UNSPECIFIED (12) ASHD (arteriosclerotic heart disease) Assessment/Plan: s/p CABG s/p coronary and LE angioplasty/stents. On clopidogrel; statin; nitrate (Imdur). Code(s): I25.10 - ATHSCL HEART DISEASE OF [place] CORONARY ARTERY W/O ANG PCTRS (13) Anemia Code(s): D64.9 - ANEMIA, UNSPECIFIED (14) Prostate cancer Code(s): C61 - MALIGNANT NEOPLASM OF PROSTATE
[2018-01-25] MEDS: CLOTRIMAZOLE 1% 10 ML TOPICAL SOLUTION TP SCH ×2 (10:20→21:24)
--- NOTE | 2018-01-25 11:15 | PN ---
Progress Note (short form) - Note Progress Note: Pt examined discontinued CBI pain is better controlled Vital Signs - 24 hr 01/25/18 01/25/18 01/25/18 06:00 09:00 13:06 Temperature 97.6 F 97.8 F Pulse Rate 69 92 H Respiratory 19 18 18 Rate Blood Pressure 100/63 99/65 O2 Sat by Pulse 98 Oximetry (%) 01/25/18 01/25/18 18:18 21:00 Temperature 98.6 F Pulse Rate 68 Respiratory 18 18 Rate Blood Pressure 115/58 L O2 Sat by Pulse 98 Oximetry (%) Laboratory Results - last 24 hr 01/25/18 01/25/18 01/25/18 06:00 06:00 21:20 WBC 9.2 13.1 H RBC 3.06 L 2.97 L Hgb 8.8 L 8.5 L Hct 27.8 L 27.0 L MCV 90.8 90.8 MCH 28.8 28.6 MCHC 31.7 L 31.5 L RDW 18.9 H 19.3 H Plt Count 338 365 MPV 7.4 L 7.4 L Absolute Neuts (auto) 10.7 H Neutrophils % 81.4 Lymphocytes % 6.8 L D Monocytes % 10.4 H Eosinophils % 0.9 Basophils % 0.5 Nucleated RBC % 0 PT with INR 13.10 H INR 1.11 H S s2 irregular Lungs decreased Abd- soft, NT No edema PLAN MRSA- blood cultures repeated negative - off CBI on iv antibiotics no procedures planned - needs to wait 3 more months as per Dr Goldberg's conversation with Urologist- DR Garcia - Barbering Teacher has not cleared the pt Morphine iv for pain control Monitor CBC restart Warfarin- monitor INR Problem List - Problems (1) Supratherapeutic INR Code(s): R79.1 - ABNORMAL COAGULATION PROFILE (2) Anxiety Code(s): F41.9 - ANXIETY DISORDER, UNSPECIFIED (3) Atrial fibrillation Code(s): I48.91 - UNSPECIFIED ATRIAL FIBRILLATION (4) Chest pain Code(s): R07.9 - CHEST PAIN, UNSPECIFIED Qualifiers: Chest pain type: unspecified Qualified Code(s): R07.9 - Chest pain, unspecified (5) HTN (hypertension) Code(s): I10 - ESSENTIAL (PRIMARY) HYPERTENSION (6) Hematuria Code(s): R31.9 - HEMATURIA, UNSPECIFIED Qualifiers: Hematuria type: gross Qualified Code(s): R31.0 - Gross hematuria (7) Hx of CABG Code(s): Z95.1 - PRESENCE OF AORTOCORONARY BYPASS GRAFT (8) Hyperlipidemia Code(s): E78.5 - HYPERLIPIDEMIA, UNSPECIFIED (9) MRSA bacteremia Code(s): R78.81 - BACTEREMIA (10) UTI (urinary tract infection) Code(s): N39.0 - URINARY TRACT INFECTION, SITE NOT SPECIFIED
[2018-01-25] MEDS: LISINOPRIL 5 MG TABLET (FP) PO SCH (11:24)
[2018-01-25] MEDS: ISOSORBIDE MONONITRATE 30 MG TAB.SR.24H (FP) PO SCH (11:24)
[2018-01-25] MEDS: FERROUS SO4 325 MG TABLET (FP) PO SCH (11:24)
[2018-01-25] MEDS: FUROSEMIDE 20 MG TABLET (FP) PO SCH (11:25)
[2018-01-25] MEDS: CLOPIDOGREL BISULFATE 75 MG TABLET (FP) PO SCH (11:25)
[2018-01-25] MEDS: FOLIC ACID 1 MG TABLET (FP) PO SCH (11:26)
[2018-01-25] MEDS: ENOXAPARIN NA (PORCINE) 100 MG/1 ML DISP.SYRIN SQ SCH ×2 (11:26→21:25)
[2018-01-25] MEDS: PANTOPRAZOLE SODIUM 40 MG VIAL IVPUSH SCH (11:29)
[2018-01-25] MEDS: POLYETHYLENE GLYCOL 3350 119 GM BTL PO SCH (11:29)
--- NOTE | 2018-01-25 12:35 | PN ---
Progress Note, Physician History of Present Illness: stable no new issues still with hematuria - Current Medication List Current Medications: Active Medications Acetaminophen (Tylenol -) 650 mg PO Q6HPO [facility] Last Admin: 01/25/18 11:31 Dose: 650 mg Atorvastatin Calcium (Lipitor -) 20 mg PO HS [facility] Last Admin: 01/24/18 22:22 Dose: 20 mg Benzocaine (Americaine Ointment -) 1 applic [place] PRN PRN PRN Reason: hemorrhoids. Last Admin: 01/22/18 16:55 Dose: 1 applic Clopidogrel Bisulfate (Plavix -) 75 mg PO DAILY [facility] Last Admin: 01/25/18 11:25 Dose: 75 mg Clotrimazole (Clotrimazole) 1 applic TP BID [facility] Last Admin: 01/24/18 23:27 Dose: 1 applic Docusate Sodium (Colace -) 100 mg PO Q8H PRN PRN Reason: CONSTIPATION Enoxaparin Sodium (Lovenox -) 90 mg SQ BID [facility] Last Admin: 01/25/18 11:26 Dose: 90 mg Ferrous Sulfate (Feosol -) 325 mg PO DAILY [facility] Last Admin: 01/25/18 11:24 Dose: 325 mg Folic Acid (Folic Acid -) 1 mg PO DAILY [facility] Last Admin: 01/25/18 11:26 Dose: 1 mg Furosemide (Lasix -) 20 mg PO DAILY [facility] Last Admin: 01/25/18 11:25 Dose: 20 mg Piperacillin Sod/Tazobactam (Sod 3.375 gm/ Dextrose) 50 mls @ 100 mls/hr IVPB Q8H-IV [facility]; Protocol Last Admin: 01/25/18 11:28 Dose: 100 mls/hr Isosorbide Mononitrate (Imdur -) 30 mg PO DAILY [facility] Last Admin: 01/25/18 11:24 Dose: 30 mg Lidocaine HCl (Xylocaine 2% Jelly) 1 applic TP BID PRN PRN Reason: MODERATE PAIN Last Admin: 01/25/18 05:26 Dose: 1 applic Lisinopril (Prinivil) 5 mg PO DAILY [facility] Last Admin: 01/25/18 11:24 Dose: 5 mg Melatonin (Melatonin) 10 mg PO HS PRN PRN Reason: INSOMNIA Last Admin: 01/24/18 22:22 Dose: 10 mg Morphine Sulfate (Morphine Sulfate) 1 mg IVPUSH Q6H PRN PRN Reason: PAIN LEVEL 6-10 Last Admin: 01/25/18 08:11 Dose: 1 mg Pt's Own Med ( Preparation H Ointment) 1 each NR Q12H PRN PRN Reason: HEMORRHOIDS Last Admin: 01/23/18 22:20 Dose: 1 each Ondansetron HCl (Zofran Injection) 8 mg IVPB Q6H PRN PRN Reason: NAUSEA Last Admin: 01/23/18 17:40 Dose: 8 mg Oxycodone HCl (Roxicodone -) 10 mg PO Q4H PRN PRN Reason: PAIN LEVEL 6-10 Last Admin: 01/25/18 11:26 Dose: 10 mg Pantoprazole Sodium (Protonix Iv) 40 mg IVPUSH DAILY [facility] Last Admin: 01/25/18 11:29 Dose: 40 mg Polyethylene Glycol (Miralax (For Daily Use) -) 17 gm PO DAILY [facility] Last Admin: 01/25/18 11:29 Dose: 17 gm Senna (Senna -) 2 tab PO HS PRN PRN Reason: CONSTIPATION Last Admin: 01/12/18 22:42 Dose: 2 tab Sodium Chloride ([place] Nasal [place] -) 2 spray NS BID PRN PRN Reason: NASAL CONGESTION Last Admin: 01/19/18 11:53 Dose: 2 spray Tamsulosin HCl (Flomax -) 0.8 mg PO DAILY@0830 [facility] Last Admin: 01/25/18 08:24 Dose: 0.8 mg Warfarin Sodium (Coumadin -) 5 mg PO DAILY@1800 [facility] - Objective Vital Signs: Vital Signs Temperature 97.6 F 01/25/18 06:00 Pulse Rate 69 01/25/18 06:00 Respiratory Rate 19 01/25/18 06:00 Blood Pressure 100/63 01/25/18 06:00 O2 Sat by Pulse Oximetry (%) 98 01/24/18 21:00 Constitutional: Yes: No Distress, Calm Cardiovascular: Yes: S1, S2 Respiratory: Yes: Regular, CTA Bilaterally Gastrointestinal: Yes: Normal Bowel Sounds, Soft Genitourinary: Yes: [place] Present Musculoskeletal: Yes: WNL Extremities: Yes: WNL Neurological: Yes: Alert, Oriented Psychiatric: Yes: Alert, Oriented Labs: CBC, BMP 01/25/18 06:00 01/24/18 06:15 INR, PTT INR 1.11 (0.83-1.09) H 01/25/18 06:00 Assessment/Plan patient with multiple medical problems coming with weakness and knee joint swelling Problem List - Problems (1) Fever Code(s): R50.9 - FEVER, UNSPECIFIED (2) Supratherapeutic INR Code(s): R79.1 - ABNORMAL COAGULATION PROFILE (3) Anxiety Code(s): F41.9 - ANXIETY DISORDER, UNSPECIFIED (4) Atrial fibrillation Code(s): I48.91 - UNSPECIFIED ATRIAL FIBRILLATION (5) Chest pain Code(s): R07.9 - CHEST PAIN, UNSPECIFIED Qualifiers: Chest pain type: unspecified Qualified Code(s): R07.9 - Chest pain, unspecified (6) [place] catheter in place Code(s): Z92.89 - PERSONAL HISTORY OF OTHER MEDICAL TREATMENT (7) HTN (hypertension) Code(s): I10 - ESSENTIAL (PRIMARY) HYPERTENSION (8) Hematuria Code(s): R31.9 - HEMATURIA, UNSPECIFIED Qualifiers: Hematuria type: gross Qualified Code(s): R31.0 - Gross hematuria (9) Hx of CABG Code(s): Z95.1 - PRESENCE OF AORTOCORONARY BYPASS GRAFT (10) Hyperlipidemia Code(s): E78.5 - HYPERLIPIDEMIA, UNSPECIFIED hematuria Assessment/Plan continue current mgmt continue abx physio monitor hematuria rest as per the team complete the abx course
[2018-01-25] MEDS: WARFARIN NA 5 MG TABLET (UD) PO SCH (18:10)
[2018-01-25] MEDS: VANCOMYCIN 1 GRAM (PRE-DOCKED) 1,000 MG/250 ML BAG IVPB SCH (18:12)
[2018-01-25] MEDS: MELATONIN 5 MG TABLETS PO PRN (21:24)
[2018-01-25] MEDS: ATORVASTATIN CA 20 MG TABLET (FP) PO SCH (21:24)
[2018-01-25] MEDS: PREPARATION H NR PRN (21:26)
[2018-01-25 21:48] LABS: BASO % 0.5 % (0-2.0); EOS % 0.9 % (0-4.5); HEMOGLOBIN 8.5 GM/dL (11.7-16.9); LYMPH % 6.8 % (8-40); MCH 28.6 pg (25.7-33.7); MCHC 31.5 g/dl (32.0-35.9); MEAN CELL VOLUME 90.8 fl (80-96); MEAN PLT VOLUME 7.4 fl (7.5-11.1); MONO % 10.4 % (3.8-10.2); NEUT % 81.4 % (42.8-82.8); PLATELET COUNT 365 K/MM3 (134-434); RBC 2.97 M/mm3 (4.00-5.60); RDW 19.3 % (11.9-15.9); WHITE BLOOD COUNT 13.1 K/mm3 (4.0-10.0)
[2018-01-26] MEDS ORDERED: PIPERACILLIN/TAZOBACTAM 3.375 GM VIAL IVPB ONE ×3 (01:11→18:21)
[2018-01-26] MEDS ORDERED: DEXTROSE 5%-WATER - 50 ML IVPB ONE ×3 (01:11→18:21)
[2018-01-26] MEDS: oxyCODONE HCL 5 MG TABLET PO PRN ×4 (01:40→23:29)
[2018-01-26] MEDS: PIPERACILLIN/TAZOB 3.375 GM 3.375 GM in DEXTROSE 5%-WATER - 50 ML IVPB SCH ×3 (01:41→18:25)
[2018-01-26] MEDS: ACETAMINOPHEN 325 MG TABLET (FP) PO SCH ×3 (05:22→18:26)
[2018-01-26] MEDS: VANCOMYCIN 1 GRAM (PRE-DOCKED) 1,000 MG/250 ML BAG IVPB SCH ×2 (05:22→19:16)
[2018-01-26] MEDS: DOCUSATE SODIUM 100 MG CAPSULE (FP) PO PRN ×2 (06:22→14:34)
[2018-01-26] MEDS ORDERED: PT OWN MED DRAWER 7, Y5N ONE ×3 (06:24→09:29)
[2018-01-26] MEDS: LIDOCAINE HCL 2% JELLY (5 ML/TUBE) TP PRN ×2 (06:25→09:53)
[2018-01-26] MEDS: MORPHINE SULFATE 2 MG/ML VIAL IVPUSH PRN ×2 (06:59→14:33)
[2018-01-26 08:24] LABS: HEMATOCRIT 26.9 % (35.4-49); HEMOGLOBIN 8.7 GM/dL (11.7-16.9); MCH 29.1 pg (25.7-33.7); MCHC 32.5 g/dl (32.0-35.9); MEAN CELL VOLUME 89.7 fl (80-96); MEAN PLT VOLUME 7.2 fl (7.5-11.1); PLATELET COUNT 358 K/MM3 (134-434); WHITE BLOOD COUNT 8.4 K/mm3 (4.0-10.0)
[2018-01-26 08:36] LABS: INR 1.23 (0.83-1.09); PROTHROMBIN TIME (PATIENT) 14.5 SEC (9.7-13.0)
[2018-01-26 09:03] LABS: ANION GAP 7 MMOL/L (8-16); BLOOD UREA NITROGEN 23 mg/dL (7-18); CALCIUM 8.9 mg/dL (8.5-10.1); CHLORIDE 104 mmol/L (98-107); CO2 26 mmol/L (21-32); CREATININE 1.9 mg/dL (0.55-1.3); GLUCOSE,RANDOM 105 mg/dL (74-106); POTASSIUM 4.6 mmol/L (3.5-5.1); SODIUM 138 mmol/L (136-145)
[2018-01-26] MEDS ORDERED: MINERAL OIL ENEMA 133 ML ENEMA PR ONE ×2 (09:40→20:01)
[2018-01-26] MEDS: PANTOPRAZOLE SODIUM 40 MG VIAL IVPUSH SCH ×2 (09:45→10:31)
[2018-01-26] MEDS: ENOXAPARIN NA (PORCINE) 100 MG/1 ML DISP.SYRIN SQ SCH ×2 (09:45→23:30)
[2018-01-26] MEDS: FUROSEMIDE 20 MG TABLET (FP) PO SCH (09:47)
[2018-01-26] MEDS: ISOSORBIDE MONONITRATE 30 MG TAB.SR.24H (FP) PO SCH (09:49)
[2018-01-26] MEDS: FERROUS SO4 325 MG TABLET (FP) PO SCH (09:49)
[2018-01-26] MEDS: LISINOPRIL 5 MG TABLET (FP) PO SCH (09:49)
[2018-01-26] MEDS: CLOTRIMAZOLE 1% 10 ML TOPICAL SOLUTION TP SCH ×2 (09:49→23:31)
[2018-01-26] MEDS: FOLIC ACID 1 MG TABLET (FP) PO SCH (09:49)
[2018-01-26] MEDS: TAMSULOSIN HCL 0.4 MG CAP PO SCH (09:49)
[2018-01-26] MEDS: CLOPIDOGREL BISULFATE 75 MG TABLET (FP) PO SCH (09:49)
[2018-01-26] MEDS: POLYETHYLENE GLYCOL 3350 119 GM BTL PO SCH (09:50)
[2018-01-26] MEDS: PREPARATION H NR PRN (09:56)
--- NOTE | 2018-01-26 12:16 | PN ---
Progress Note, Physician History of Present Illness: he patient is a 77 year old male with a significant past medical history of HTN , HLD, CAD (s/p stents), prostate CA, urethral stricture (catheter in place) who presents to the ER with difficulty ranging his legs today. The patient states he noticed significant swelling, redness, and warmth to the bilateral knees. Patient reports he needed assistance to ambulate today, which is new for him. Patient states he was discharged from rehab four days ago and was ambulating appropriately until today. Patient has not eaten today as he is experiencing mild nausea. Patient denies taking any of his medications today. 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 Patient has his catheter in place and draining urine appropriately. Patient has a fever of 100.1 here in the ER. The patient denies chest pain, shortness of breath, headache, and dizziness. Denies chills, vomit, diarrhea, and constipation. Allergies: strawberry, pepper, iohexol Past surgical history: stents Social history: No reported alcohol, drug, or cigarette use. H cabg lithotripsy prostate seeds Ongoing medical problems Afib diagnosed at the hospital during [facility] [employer]PER[employer] 08/2015 and has been on coumadin since then 2015 CAD Coronary artery bypass graft SANTIAGO of left SFA August 11, 2014 Dr. Blanton SANTIAGO of left PDA July 07, 2014 Dr. Blanton dizziness Hyperlipidemia Hypertension Negative MIBI stress test 2013 [place] [facility] NSVT Pauses PCI SANTIAGO of p LCx March 30, 2015 Dr. Blanton PCI LCx 08/17/12 [facility] PCI LCx 07/07/14 Dr. 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 Blanton s/p WELL SERVICING RIG OPERATOR drug elluting balloon L SFA 2015 s/p WELL SERVICING RIG OPERATOR left SFA 09/25/17 for left foot ulcer s/p urethral stricture after cystoscopy and urethrotomy the patient went into septic shock and was treated with antibiotics and was stabilized. October 2017 - Current Medication List Current Medications: Active Medications Acetaminophen (Tylenol -) 650 mg PO Q6HPO [facility] Last Admin: 01/26/18 05:22 Dose: 650 mg Atorvastatin Calcium (Lipitor -) 20 mg PO HS [facility] Last Admin: 01/25/18 21:24 Dose: 20 mg Benzocaine (Americaine Ointment -) 1 applic [place] PRN PRN PRN Reason: hemorrhoids. Last Admin: 01/22/18 16:55 Dose: 1 applic Clopidogrel Bisulfate (Plavix -) 75 mg PO DAILY [facility] Last Admin: 01/26/18 09:49 Dose: 75 mg Clotrimazole (Clotrimazole) 1 applic TP BID [facility] Last Admin: 01/26/18 09:49 Dose: 1 applic Docusate Sodium (Colace -) 100 mg PO Q8H PRN PRN Reason: CONSTIPATION Last Admin: 01/26/18 06:22 Dose: 100 mg Enoxaparin Sodium (Lovenox -) 90 mg SQ BID [facility] Last Admin: 01/26/18 09:45 Dose: 90 mg Ferrous Sulfate (Feosol -) 325 mg PO DAILY [facility] Last Admin: 01/26/18 09:49 Dose: 325 mg Folic Acid (Folic Acid -) 1 mg PO DAILY [facility] Last Admin: 01/26/18 09:49 Dose: 1 mg Furosemide (Lasix -) 20 mg PO DAILY [facility] Last Admin: 01/26/18 09:47 Dose: 20 mg Piperacillin Sod/Tazobactam (Sod 3.375 gm/ Dextrose) 50 mls @ 100 mls/hr IVPB Q8H-IV [facility]; Protocol Last Admin: 01/26/18 09:44 Dose: 100 mls/hr Isosorbide Mononitrate (Imdur -) 30 mg PO DAILY [facility] Last Admin: 01/26/18 09:49 Dose: 30 mg Lidocaine HCl (Xylocaine 2% Jelly) 1 applic TP BID PRN PRN Reason: MODERATE PAIN Last Admin: 01/26/18 09:53 Dose: 1 applic Lisinopril (Prinivil) 5 mg PO DAILY [facility] Last Admin: 01/26/18 09:49 Dose: 5 mg Melatonin (Melatonin) 10 mg PO HS PRN PRN Reason: INSOMNIA Last Admin: 01/25/18 21:24 Dose: 10 mg Morphine Sulfate (Morphine Sulfate) 1 mg IVPUSH Q6H PRN PRN Reason: PAIN LEVEL 6-10 Last Admin: 01/26/18 06:59 Dose: 1 mg Pt's Own Med ( Preparation H Ointment) 1 each NR Q12H PRN PRN Reason: HEMORRHOIDS Last Admin: 01/26/18 09:56 Dose: 1 each Ondansetron HCl (Zofran Injection) 8 mg IVPB Q6H PRN PRN Reason: NAUSEA Last Admin: 01/23/18 17:40 Dose: 8 mg Oxycodone HCl (Roxicodone -) 10 mg PO Q4H PRN PRN Reason: PAIN LEVEL 6-10 Last Admin: 01/26/18 09:47 Dose: 10 mg Pantoprazole Sodium (Protonix -) 40 mg PO DAILY [facility] Polyethylene Glycol (Miralax (For Daily Use) -) 17 gm PO DAILY [facility] Last Admin: 01/26/18 09:50 Dose: 17 gm Senna (Senna -) 2 tab PO HS PRN PRN Reason: CONSTIPATION Last Admin: 01/12/18 22:42 Dose: 2 tab Sodium Chloride ([place] Nasal [place] -) 2 spray NS BID PRN PRN Reason: NASAL CONGESTION Last Admin: 01/19/18 11:53 Dose: 2 spray Tamsulosin HCl (Flomax -) 0.8 mg PO DAILY@0830 [facility] Last Admin: 01/26/18 09:49 Dose: 0.8 mg Vancomycin HCl (Vancomycin (Pre-Docked)) 1,000 mg IVPB BID@0600,1800 [facility] Stop: 01/30/18 06:01 Last Admin: 01/26/18 05:22 Dose: 1,000 mg Warfarin Sodium (Coumadin -) 5 mg PO DAILY@1800 [facility] Last Admin: 01/25/18 18:10 Dose: 5 mg - Objective Vital Signs: Vital Signs Temperature 98.4 F 01/26/18 09:22 Pulse Rate 96 H 01/26/18 09:22 Respiratory Rate 18 01/26/18 09:22 Blood Pressure 104/58 L 01/26/18 09:22 O2 Sat by Pulse Oximetry (%) 98 01/25/18 21:00 Eyes: Yes: WNL, Conjunctiva Clear, EOM Intact HENT: Yes: WNL, Atraumatic, Normocephalic Neck: Yes: WNL, Supple, Trachea Midline Cardiovascular: Yes: WNL, Regular Rate and Rhythm Respiratory: Yes: WNL, Regular, CTA Bilaterally Gastrointestinal: Yes: WNL, Normal Bowel Sounds Genitourinary: Yes: WNL Musculoskeletal: Yes: WNL Extremities: Yes: WNL Edema: No Integumentary: Yes: WNL Neurological: Yes: WNL, Alert, Oriented ...Motor Strength: WNL Psychiatric: Yes: WNL Labs: CBC, BMP 01/26/18 08:10 01/26/18 08:10 INR, PTT INR 1.23 (0.83-1.09) H 01/26/18 08:10 Assessment/Plan - Problems (1) MRSA bacteremia Assessment/Plan: febrile episodes; initially leukocytotic. antipyretics (avoid non-aspirin NSAIDs). antibiotics per ID (on Zosyn, Vancomycin, Clotrimazole). Code(s): R78.81 - BACTEREMIA (2) UTI (urinary tract infection) Code(s): N39.0 - URINARY TRACT INFECTION, SITE NOT SPECIFIED (3) Acute on chronic systolic (congestive) heart failure Assessment/Plan: On lisinopril. Furosemide prn. F/u Is and Os, daily weight, BUN/Cr, electrolytes. Code(s): I50.23 - ACUTE ON CHRONIC SYSTOLIC (CONGESTIVE) HEART FAILURE (4) Anxiety Code(s): F41.9 - ANXIETY DISORDER, UNSPECIFIED (5) Atrial fibrillation Assessment/Plan: 90 mg bid Lovenox until INR 2-3 with warfarin. Will restart warfarin EKG in am Code(s): I48.91 - UNSPECIFIED ATRIAL FIBRILLATION (6) Chronic lower back pain Assessment/Plan: spinal studies (xray) results noted; no metastases; no compression; mild lumbar spondylosis. Code(s): M54.5 - LOW BACK PAIN; G89.29 - OTHER CHRONIC PAIN (7) HTN (hypertension) Assessment/Plan: on lisinopril; on furosemide. Code(s): I10 - ESSENTIAL (PRIMARY) HYPERTENSION (8) Hematuria Code(s): R31.9 - HEMATURIA, UNSPECIFIED Qualifiers: Hematuria type: gross Qualified Code(s): R31.0 - Gross hematuria (9) Hyperlipidemia Assessment/Plan: Total cholesterol 118 mg/dL; on atorvastatin 20 mg daily. Code(s): E78.5 - HYPERLIPIDEMIA, UNSPECIFIED (10) Obesity Code(s): E66.9 - OBESITY, UNSPECIFIED (11) Urinary retention Assessment/Plan: . Code(s): R33.9 - RETENTION OF URINE, UNSPECIFIED (12) ASHD (arteriosclerotic heart disease) Assessment/Plan: s/p CABG s/p coronary and LE angioplasty/stents. On clopidogrel; statin; nitrate (Imdur). Code(s): I25.10 - ATHSCL HEART DISEASE OF [place] CORONARY ARTERY W/O ANG PCTRS (13) Anemia Code(s): D64.9 - ANEMIA, UNSPECIFIED (14) Prostate cancer Code(s): C61 - MALIGNANT NEOPLASM OF PROSTATE
[2018-01-26] MEDS: PANTOPRAZOLE 40 MG TABLET (FP) PO SCH (13:22)
--- NOTE | 2018-01-26 15:06 | PN ---
Progress Note, Physician - Current Medication List Current Medications: Active Medications Acetaminophen (Tylenol -) 650 mg PO Q6HPO [facility] Last Admin: 01/26/18 13:22 Dose: 650 mg Atorvastatin Calcium (Lipitor -) 20 mg PO HS [facility] Last Admin: 01/25/18 21:24 Dose: 20 mg Benzocaine (Americaine Ointment -) 1 applic GA PRN PRN PRN Reason: hemorrhoids. Last Admin: 01/22/18 16:55 Dose: 1 applic Clopidogrel Bisulfate (Plavix -) 75 mg PO DAILY [facility] Last Admin: 01/26/18 09:49 Dose: 75 mg Clotrimazole (Clotrimazole) 1 applic TP BID [facility] Last Admin: 01/26/18 09:49 Dose: 1 applic Docusate Sodium (Colace -) 100 mg PO Q8H PRN PRN Reason: CONSTIPATION Last Admin: 01/26/18 14:34 Dose: 100 mg Enoxaparin Sodium (Lovenox -) 90 mg SQ BID [facility] Last Admin: 01/26/18 09:45 Dose: 90 mg Ferrous Sulfate (Feosol -) 325 mg PO DAILY [facility] Last Admin: 01/26/18 09:49 Dose: 325 mg Folic Acid (Folic Acid -) 1 mg PO DAILY [facility] Last Admin: 01/26/18 09:49 Dose: 1 mg Furosemide (Lasix -) 20 mg PO DAILY [facility] Last Admin: 01/26/18 09:47 Dose: 20 mg Piperacillin Sod/Tazobactam (Sod 3.375 gm/ Dextrose) 50 mls @ 100 mls/hr IVPB Q8H-IV [facility]; Protocol Last Admin: 01/26/18 09:44 Dose: 100 mls/hr Isosorbide Mononitrate (Imdur -) 30 mg PO DAILY [facility] Last Admin: 01/26/18 09:49 Dose: 30 mg Lidocaine HCl (Xylocaine 2% Jelly) 1 applic TP BID PRN PRN Reason: MODERATE PAIN Last Admin: 01/26/18 09:53 Dose: 1 applic Lisinopril (Prinivil) 5 mg PO DAILY [facility] Last Admin: 01/26/18 09:49 Dose: 5 mg Melatonin (Melatonin) 10 mg PO HS PRN PRN Reason: INSOMNIA Last Admin: 01/25/18 21:24 Dose: 10 mg Morphine Sulfate (Morphine Sulfate) 1 mg IVPUSH Q6H PRN PRN Reason: PAIN LEVEL 6-10 Last Admin: 01/26/18 14:33 Dose: 1 mg Pt's Own Med ( Preparation H Ointment) 1 each NR Q12H PRN PRN Reason: HEMORRHOIDS Last Admin: 01/26/18 09:56 Dose: 1 each Ondansetron HCl (Zofran Injection) 8 mg IVPB Q6H PRN PRN Reason: NAUSEA Last Admin: 01/23/18 17:40 Dose: 8 mg Oxycodone HCl (Roxicodone -) 10 mg PO Q4H PRN PRN Reason: PAIN LEVEL 6-10 Last Admin: 01/26/18 09:47 Dose: 10 mg Pantoprazole Sodium (Protonix -) 40 mg PO DAILY [facility] Last Admin: 01/26/18 13:22 Dose: 40 mg Polyethylene Glycol (Miralax (For Daily Use) -) 17 gm PO DAILY [facility] Last Admin: 01/26/18 09:50 Dose: 17 gm Senna (Senna -) 2 tab PO HS PRN PRN Reason: CONSTIPATION Last Admin: 01/12/18 22:42 Dose: 2 tab Sodium Chloride ([place] -) 2 spray NS BID PRN PRN Reason: NASAL CONGESTION Last Admin: 01/19/18 11:53 Dose: 2 spray Tamsulosin HCl (Flomax -) 0.8 mg PO DAILY@0830 [facility] Last Admin: 01/26/18 09:49 Dose: 0.8 mg Vancomycin HCl (Vancomycin (Pre-Docked)) 1,000 mg IVPB BID@0600,1800 [facility] Stop: 01/30/18 06:01 Last Admin: 01/26/18 05:22 Dose: 1,000 mg Warfarin Sodium (Coumadin -) 5 mg PO DAILY@1800 [facility] Last Admin: 01/25/18 18:10 Dose: 5 mg - Objective Vital Signs: Vital Signs Temperature 98.4 F 01/26/18 09:22 Pulse Rate 96 H 01/26/18 09:22 Respiratory Rate 18 01/26/18 09:22 Blood Pressure 104/58 L 01/26/18 09:22 O2 Sat by Pulse Oximetry (%) 97 01/26/18 10:00 Labs: CBC, BMP 01/26/18 08:10 01/26/18 08:10 INR, PTT INR 1.23 (0.83-1.09) H 01/26/18 08:10
[2018-01-26] MEDS: WARFARIN NA 5 MG TABLET (UD) PO SCH (18:25)
--- NOTE | 2018-01-26 19:56 | PN ---
Progress Note (short form) - Note Progress Note: Pt examined discontinued CBI now has more hematuria pain is better controlled Vital Signs - 24 hr 01/25/18 01/26/18 01/26/18 21:00 06:00 09:22 Temperature 98.0 F 98.4 F Pulse Rate 71 96 H Respiratory 18 18 18 Rate Blood Pressure 101/58 L 104/58 L O2 Sat by Pulse 98 Oximetry (%) 01/26/18 01/26/18 01/26/18 10:00 14:51 18:00 Temperature 97.6 F 97.5 F L Pulse Rate 90 64 Respiratory 18 20 Rate Blood Pressure 101/65 103/59 L O2 Sat by Pulse 97 Oximetry (%) Current Medications Generic Name Dose Route Start Last Admin Trade Name Freq PRN Reason Stop Dose Admin Acetaminophen 650 mg 01/12/18 20:45 01/26/18 18:26 Tylenol - PO 650 mg Q6HPO [facility] Administration Atorvastatin Calcium 20 mg 01/12/18 22:00 01/25/18 21:24 Lipitor - PO 20 mg HS [facility] Administration Benzocaine 1 applic 01/22/18 07:52 01/22/18 16:55 Americaine Ointment - [place] 1 applic PRN PRN Administration hemorrhoids. Clopidogrel Bisulfate 75 mg 01/13/18 10:00 01/26/18 09:49 Plavix - PO 75 mg DAILY [facility] Administration Clotrimazole 1 applic 01/20/18 10:00 01/26/18 09:49 Clotrimazole TP 1 applic BID [facility] Administration Docusate Sodium 100 mg 01/24/18 13:28 01/26/18 14:34 Colace - PO 100 mg Q8H PRN Administration CONSTIPATION Enoxaparin Sodium 90 mg 01/21/18 22:00 01/26/18 09:45 Lovenox - SQ 90 mg BID [facility] Administration Ferrous Sulfate 325 mg 01/23/18 10:00 01/26/18 09:49 Feosol - PO 325 mg DAILY [facility] Administration Folic Acid 1 mg 01/13/18 10:00 01/26/18 09:49 Folic Acid - PO 1 mg DAILY [facility] Administration Furosemide 20 mg 01/13/18 10:00 01/26/18 09:47 Lasix - PO 20 mg DAILY [facility] Administration Piperacillin Sod/Tazobactam 50 mls @ 100 mls/hr 01/14/18 14:30 01/26/18 18:25 Sod 3.375 gm/ Dextrose IVPB 100 mls/hr Q8H-IV [facility] Administration Protocol Isosorbide Mononitrate 30 mg 01/13/18 10:00 01/26/18 09:49 Imdur - PO 30 mg DAILY [facility] Administration Lidocaine HCl 1 applic 01/13/18 11:44 01/26/18 09:53 Xylocaine 2% Jelly TP 1 applic BID PRN Administration MODERATE PAIN Lisinopril 5 mg 01/13/18 10:00 01/26/18 09:49 Prinivil PO 5 mg DAILY [facility] Administration Melatonin 10 mg 01/21/18 11:42 01/25/18 21:24 Melatonin PO 10 mg HS PRN Administration INSOMNIA Morphine Sulfate 1 mg 01/22/18 10:53 01/26/18 14:33 Morphine Sulfate IVPUSH 1 mg Q6H PRN Administration PAIN LEVEL 6-10 Pt's Own Med ( 1 each 01/22/18 18:53 01/26/18 09:56 Preparation H NR 1 each Ointment) Q12H PRN Administration HEMORRHOIDS Ondansetron HCl 8 mg 01/22/18 10:53 01/23/18 17:40 Zofran Injection IVPB 8 mg Q6H PRN Administration NAUSEA Oxycodone HCl 10 mg 01/22/18 10:12 01/26/18 18:28 Roxicodone - PO 10 mg Q4H PRN Administration PAIN LEVEL 6-10 Pantoprazole Sodium 40 mg 01/26/18 10:15 01/26/18 13:22 Protonix - PO 40 mg DAILY [facility] Administration Polyethylene Glycol 17 gm 01/15/18 13:00 01/26/18 09:50 Miralax (For Daily Use) - PO 17 gm DAILY [facility] Administration Senna 2 tab 01/12/18 20:07 01/12/18 22:42 Senna - PO 2 tab HS PRN Administration CONSTIPATION Sodium Chloride 2 spray 01/13/18 11:46 01/19/18 11:53 [place] Nasal [place] - NS 2 spray BID PRN Administration NASAL CONGESTION Tamsulosin HCl 0.8 mg 01/13/18 08:30 01/26/18 09:49 Flomax - PO 0.8 mg DAILY@0830 [facility] Administration Vancomycin HCl 1,000 mg 01/25/18 18:00 01/26/18 19:16 Vancomycin (Pre-Docked) IVPB 01/30/18 06:01 1,000 mg BID@0600,1800 [facility] Administration Warfarin Sodium 5 mg 01/25/18 11:15 01/26/18 18:25 Coumadin - PO 5 mg DAILY@1800 [facility] Administration Laboratory Results - last 24 hr 01/25/18 01/26/18 01/26/18 21:20 08:10 08:10 WBC 13.1 H 8.4 RBC 2.97 L 3.00 L Hgb 8.5 L 8.7 L Hct 27.0 L 26.9 L MCV 90.8 89.7 MCH 28.6 29.1 MCHC 31.5 L 32.5 RDW 19.3 H 19.0 H Plt Count 365 358 MPV 7.4 L 7.2 L Absolute Neuts (auto) 10.7 H Neutrophils % 81.4 Lymphocytes % 6.8 L D Monocytes % 10.4 H Eosinophils % 0.9 Basophils % 0.5 Nucleated RBC % 0 PT with INR 14.50 H INR 1.23 H Sodium Potassium Chloride Carbon Dioxide Anion Gap BUN Creatinine Creat Clearance w eGFR Random Glucose Calcium 01/26/18 08:10 WBC RBC Hgb Hct MCV MCH MCHC RDW Plt Count MPV Absolute Neuts (auto) Neutrophils % Lymphocytes % Monocytes % Eosinophils % Basophils % Nucleated RBC % PT with INR INR Sodium 138 Potassium 4.6 Chloride 104 Carbon Dioxide 26 Anion Gap 7 L BUN 23 H Creatinine 1.9 H Creat Clearance w eGFR 34.46 Random Glucose 105 Calcium 8.9 S s2 irregular Lungs decreased Abd- soft, NT No edema PLAN MRSA- blood cultures repeated negative - off CBI on iv antibiotics-- plan for 4 more days per ID no procedures planned - needs to wait 3 more months as per Dr Goldberg's conversation with Urologist- DR Garcia - Bead Cutter has not cleared the pt Morphine iv for pain control, oxycodone Renal function slight worsening-- will d/c Lisinopril for now as BP on lower side Monitor CBC restarted Warfarin- monitor INR spoke with continue PT Problem List - Problems (1) Supratherapeutic INR Code(s): R79.1 - ABNORMAL COAGULATION PROFILE (2) Anxiety Code(s): F41.9 - ANXIETY DISORDER, UNSPECIFIED (3) Atrial fibrillation Code(s): I48.91 - UNSPECIFIED ATRIAL FIBRILLATION (4) Chest pain Code(s): R07.9 - CHEST PAIN, UNSPECIFIED Qualifiers: Chest pain type: unspecified Qualified Code(s): R07.9 - Chest pain, unspecified (5) HTN (hypertension) Code(s): I10 - ESSENTIAL (PRIMARY) HYPERTENSION (6) Hematuria Code(s): R31.9 - HEMATURIA, UNSPECIFIED Qualifiers: Hematuria type: gross Qualified Code(s): R31.0 - Gross hematuria (7) Hx of CABG Code(s): Z95.1 - PRESENCE OF AORTOCORONARY BYPASS GRAFT (8) Hyperlipidemia Code(s): E78.5 - HYPERLIPIDEMIA, UNSPECIFIED (9) MRSA bacteremia Code(s): R78.81 - BACTEREMIA (10) UTI (urinary tract infection) Code(s): N39.0 - URINARY TRACT INFECTION, SITE NOT SPECIFIED
[2018-01-26] MEDS: MELATONIN 5 MG TABLETS PO PRN (23:29)
[2018-01-26] MEDS: ATORVASTATIN CA 20 MG TABLET (FP) PO SCH (23:30)
[2018-01-27] MEDS: ACETAMINOPHEN 325 MG TABLET (FP) PO SCH ×5 (00:15→23:42)
[2018-01-27] MEDS ORDERED: PIPERACILLIN/TAZOBACTAM 3.375 GM VIAL IVPB ONE ×3 (02:05→18:22)
[2018-01-27] MEDS ORDERED: DEXTROSE 5%-WATER - 50 ML IVPB ONE ×3 (02:05→18:22)
[2018-01-27] MEDS ORDERED: PT OWN MED DRAWER 7, Y5N ONE ×2 (02:16→16:43)
[2018-01-27] MEDS: LIDOCAINE HCL 2% JELLY (5 ML/TUBE) TP PRN ×2 (02:57→23:43)
[2018-01-27] MEDS: PIPERACILLIN/TAZOB 3.375 GM 3.375 GM in DEXTROSE 5%-WATER - 50 ML IVPB SCH ×3 (02:58→18:26)
[2018-01-27] MEDS: MORPHINE SULFATE 2 MG/ML VIAL IVPUSH PRN (03:02)
[2018-01-27] MEDS: VANCOMYCIN 1 GRAM (PRE-DOCKED) 1,000 MG/250 ML BAG IVPB SCH ×2 (06:19→17:15)
[2018-01-27] MEDS: oxyCODONE HCL 5 MG TABLET PO PRN ×3 (06:19→21:47)
[2018-01-27 07:54] LABS: HEMATOCRIT 26.1 % (35.4-49); HEMOGLOBIN 8.4 GM/dL (11.7-16.9); MCH 29.1 pg (25.7-33.7); MCHC 32.2 g/dl (32.0-35.9); MEAN CELL VOLUME 90.4 fl (80-96); MEAN PLT VOLUME 7.5 fl (7.5-11.1); PLATELET COUNT 335 K/MM3 (134-434); RBC 2.88 M/mm3 (4.00-5.60); RDW 19.4 % (11.9-15.9); WHITE BLOOD COUNT 9.4 K/mm3 (4.0-10.0)
[2018-01-27 08:07] LABS: INR 1.76 (0.83-1.09); PROTHROMBIN TIME (PATIENT) 20.9 SEC (9.7-13.0)
[2018-01-27] MEDS: TAMSULOSIN HCL 0.4 MG CAP PO SCH (08:30)
[2018-01-27 08:32] LABS: ANION GAP 6 MMOL/L (8-16); BLOOD UREA NITROGEN 26 mg/dL (7-18); CALCIUM 8.5 mg/dL (8.5-10.1); CHLORIDE 102 mmol/L (98-107); CO2 26 mmol/L (21-32); CREATININE 1.7 mg/dL (0.55-1.3); GLUCOSE,RANDOM 114 mg/dL (74-106); POTASSIUM 4.4 mmol/L (3.5-5.1); SODIUM 134 mmol/L (136-145)
[2018-01-27] MEDS: CLOTRIMAZOLE 1% 10 ML TOPICAL SOLUTION TP SCH ×2 (10:00→21:46)
[2018-01-27] MEDS: ISOSORBIDE MONONITRATE 30 MG TAB.SR.24H (FP) PO SCH (10:31)
[2018-01-27] MEDS: FERROUS SO4 325 MG TABLET (FP) PO SCH (10:31)
[2018-01-27] MEDS: PANTOPRAZOLE 40 MG TABLET (FP) PO SCH (10:31)
[2018-01-27] MEDS: FUROSEMIDE 20 MG TABLET (FP) PO SCH (10:31)
[2018-01-27] MEDS: CLOPIDOGREL BISULFATE 75 MG TABLET (FP) PO SCH (10:31)
[2018-01-27] MEDS: FOLIC ACID 1 MG TABLET (FP) PO SCH (10:31)
[2018-01-27] MEDS: ENOXAPARIN NA (PORCINE) 100 MG/1 ML DISP.SYRIN SQ SCH ×2 (10:32→21:46)
[2018-01-27] MEDS: POLYETHYLENE GLYCOL 3350 119 GM BTL PO SCH (10:40)
--- NOTE | 2018-01-27 12:30 | PN ---
Progress Note (short form) - Note Progress Note: Pt examined discontinued CBI now has hematuria pain is better controlled Vital Signs - 24 hr 01/26/18 01/26/18 01/26/18 14:51 18:00 21:00 Temperature 97.6 F 97.5 F L Pulse Rate 90 64 Respiratory 18 20 Rate Blood Pressure 101/65 103/59 L O2 Sat by Pulse 97 Oximetry (%) 01/27/18 06:00 Temperature 97.5 F L Pulse Rate 88 Respiratory 20 Rate Blood Pressure 115/66 O2 Sat by Pulse Oximetry (%) Current Medications Generic Name Dose Route Start Last Admin Trade Name Freq PRN Reason Stop Dose Admin Acetaminophen 650 mg 01/12/18 20:45 01/27/18 06:20 Tylenol - PO 650 mg Q6HPO [facility] Administration Atorvastatin Calcium 20 mg 01/12/18 22:00 01/26/18 23:30 Lipitor - PO 20 mg HS [facility] Administration Benzocaine 1 applic 01/22/18 07:52 01/22/18 16:55 Americaine Ointment - [place] 1 applic PRN PRN Administration hemorrhoids. Clopidogrel Bisulfate 75 mg 01/13/18 10:00 01/27/18 10:31 Plavix - PO 75 mg DAILY [facility] Administration Clotrimazole 1 applic 01/20/18 10:00 01/26/18 23:31 Clotrimazole TP 1 applic BID [facility] Administration Docusate Sodium 100 mg 01/24/18 13:28 01/26/18 14:34 Colace - PO 100 mg Q8H PRN Administration CONSTIPATION Enoxaparin Sodium 90 mg 01/21/18 22:00 01/27/18 10:32 Lovenox - SQ 90 mg BID [facility] Administration Ferrous Sulfate 325 mg 01/23/18 10:00 01/27/18 10:31 Feosol - PO 325 mg DAILY [facility] Administration Folic Acid 1 mg 01/13/18 10:00 01/27/18 10:31 Folic Acid - PO 1 mg DAILY [facility] Administration Furosemide 20 mg 01/13/18 10:00 01/27/18 10:31 Lasix - PO 20 mg DAILY [facility] Administration Piperacillin Sod/Tazobactam 50 mls @ 100 mls/hr 01/14/18 14:30 01/27/18 10:31 Sod 3.375 gm/ Dextrose IVPB 100 mls/hr Q8H-IV [facility] Administration Protocol Influenza Virus Vaccine Quadrival 60 mcg 01/27/18 13:00 Flulaval Quad [id number] IM 01/27/18 13:01 .ONCE ONE Isosorbide Mononitrate 30 mg 01/13/18 10:00 01/27/18 10:31 Imdur - PO 30 mg DAILY [facility] Administration Lidocaine HCl 1 applic 01/13/18 11:44 01/27/18 02:57 Xylocaine 2% Jelly TP 1 applic BID PRN Administration MODERATE PAIN Melatonin 10 mg 01/21/18 11:42 01/26/18 23:29 Melatonin PO 10 mg HS PRN Administration INSOMNIA Morphine Sulfate 1 mg 01/22/18 10:53 01/27/18 03:02 Morphine Sulfate IVPUSH 1 mg Q6H PRN Administration PAIN LEVEL 6-10 Pt's Own Med ( 1 each 01/22/18 18:53 01/26/18 09:56 Preparation H NR 1 each Ointment) Q12H PRN Administration HEMORRHOIDS Ondansetron HCl 8 mg 01/22/18 10:53 01/23/18 17:40 Zofran Injection IVPB 8 mg Q6H PRN Administration NAUSEA Oxycodone HCl 10 mg 01/22/18 10:12 01/27/18 06:19 Roxicodone - PO 10 mg Q4H PRN Administration PAIN LEVEL 6-10 Pantoprazole Sodium 40 mg 01/26/18 10:15 01/27/18 10:31 Protonix - PO 40 mg DAILY [facility] Administration Polyethylene Glycol 17 gm 01/15/18 13:00 01/27/18 10:40 Miralax (For Daily Use) - PO 17 gm DAILY [facility] Administration Senna 2 tab 01/12/18 20:07 01/12/18 22:42 Senna - PO 2 tab HS PRN Administration CONSTIPATION Sodium Chloride 2 spray 01/13/18 11:46 01/19/18 11:53 [place] Nasal [place] - [place] 2 spray BID PRN Administration NASAL CONGESTION Tamsulosin HCl 0.8 mg 01/13/18 08:30 01/27/18 08:30 Flomax - PO 0.8 mg DAILY@0830 [facility] Administration Vancomycin HCl 1,000 mg 01/25/18 18:00 01/27/18 06:19 Vancomycin (Pre-Docked) IVPB 01/30/18 06:01 1,000 mg BID@0600,1800 [facility] Administration Warfarin Sodium 5 mg 01/25/18 11:15 01/26/18 18:25 Coumadin - PO 5 mg DAILY@1800 [facility] Administration Laboratory Results - last 24 hr 01/27/18 01/27/18 01/27/18 06:30 06:30 06:30 WBC 9.4 RBC 2.88 L Hgb 8.4 L Hct 26.1 L MCV 90.4 MCH 29.1 MCHC 32.2 RDW 19.4 H Plt Count 335 MPV 7.5 PT with INR 20.90 H INR 1.76 H Sodium 134 L Potassium 4.4 Chloride 102 Carbon Dioxide 26 Anion Gap 6 L BUN 26 H Creatinine 1.7 H Creat Clearance w eGFR 39.18 Random Glucose 114 H Calcium 8.5 S s2 irregular Lungs decreased Abd- soft, NT No edema PLAN MRSA- blood cultures repeated negative - off CBI on iv antibiotics-- plan for 3 more days per ID no procedures planned - needs to wait 3 more months as per Dr Goldberg's conversation with Urologist- DR Garcia - [employer] has not cleared the pt pain control- oxycodone Renal function better Monitor CBC restarted Warfarin- monitor INR spoke with continue PT Problem List - Problems (1) Supratherapeutic INR Code(s): R79.1 - ABNORMAL COAGULATION PROFILE (2) Anxiety Code(s): F41.9 - ANXIETY DISORDER, UNSPECIFIED (3) Atrial fibrillation Code(s): I48.91 - UNSPECIFIED ATRIAL FIBRILLATION (4) Chest pain Code(s): R07.9 - CHEST PAIN, UNSPECIFIED Qualifiers: Chest pain type: unspecified Qualified Code(s): R07.9 - Chest pain, unspecified (5) HTN (hypertension) Code(s): I10 - ESSENTIAL (PRIMARY) HYPERTENSION (6) Hematuria Code(s): R31.9 - HEMATURIA, UNSPECIFIED Qualifiers: Hematuria type: gross Qualified Code(s): R31.0 - Gross hematuria (7) Hx of CABG Code(s): Z95.1 - PRESENCE OF AORTOCORONARY BYPASS GRAFT (8) Hyperlipidemia Code(s): E78.5 - HYPERLIPIDEMIA, UNSPECIFIED (9) MRSA bacteremia Code(s): R78.81 - BACTEREMIA (10) UTI (urinary tract infection) Code(s): N39.0 - URINARY TRACT INFECTION, SITE NOT SPECIFIED
[2018-01-27] MEDS ORDERED: FLU VACCINE QUAD 60 MCG/0.5 ML (MDV 18-19) IM ONE (13:00)
--- NOTE | 2018-01-27 13:45 | PN ---
Progress Note, Physician Chief Complaint: Pt A&Ox3; sitting up at bedside; no chest pain or dyspnea. Disappointed that he has to wait to have further surgical procedures. History of Present Illness: The patient is a 77 year old white man (rajiv Owusu) with a significant past medical history of HTN, HLD, CAD (s/p stents), diastolic CHF, prostate CA, urethral stricture (catheter in place) who presents to the ER with difficulty ranging his legs today. The patient states he noticed significant swelling, redness, and warmth to the bilateral knees. Patient reports he needed assistance to ambulate today, which is new for him. Patient states he was discharged from rehab four days ago and was ambulating appropriately until today. Patient has not eaten today as he is experiencing mild nausea. Patient denies taking any of his medications today. 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 Patient has his catheter in place and draining urine appropriately. Patient has a fever of 100.1 here in the ER. - Current Medication List Current Medications: Active Medications Acetaminophen (Tylenol -) 650 mg PO Q6HPO [facility] Last Admin: 01/27/18 06:20 Dose: 650 mg Atorvastatin Calcium (Lipitor -) 20 mg PO HS [facility] Last Admin: 01/26/18 23:30 Dose: 20 mg Benzocaine (Americaine Ointment -) 1 applic [place] PRN PRN PRN Reason: hemorrhoids. Last Admin: 01/22/18 16:55 Dose: 1 applic Clopidogrel Bisulfate (Plavix -) 75 mg PO DAILY [facility] Last Admin: 01/27/18 10:31 Dose: 75 mg Clotrimazole (Clotrimazole) 1 applic TP BID [facility] Last Admin: 01/26/18 23:31 Dose: 1 applic Docusate Sodium (Colace -) 100 mg PO Q8H PRN PRN Reason: CONSTIPATION Last Admin: 01/26/18 14:34 Dose: 100 mg Enoxaparin Sodium (Lovenox -) 90 mg SQ BID [facility] Last Admin: 01/27/18 10:32 Dose: 90 mg Ferrous Sulfate (Feosol -) 325 mg PO DAILY [facility] Last Admin: 01/27/18 10:31 Dose: 325 mg Folic Acid (Folic Acid -) 1 mg PO DAILY [facility] Last Admin: 01/27/18 10:31 Dose: 1 mg Furosemide (Lasix -) 20 mg PO DAILY [facility] Last Admin: 01/27/18 10:31 Dose: 20 mg Piperacillin Sod/Tazobactam (Sod 3.375 gm/ Dextrose) 50 mls @ 100 mls/hr IVPB Q8H-IV [facility]; Protocol Last Admin: 01/27/18 10:31 Dose: 100 mls/hr Isosorbide Mononitrate (Imdur -) 30 mg PO DAILY [facility] Last Admin: 01/27/18 10:31 Dose: 30 mg Lidocaine HCl (Xylocaine 2% Jelly) 1 applic TP BID PRN PRN Reason: MODERATE PAIN Last Admin: 01/27/18 02:57 Dose: 1 applic Melatonin (Melatonin) 10 mg PO HS PRN PRN Reason: INSOMNIA Last Admin: 01/26/18 23:29 Dose: 10 mg Morphine Sulfate (Morphine Sulfate) 1 mg IVPUSH Q6H PRN PRN Reason: PAIN LEVEL 6-10 Last Admin: 01/27/18 03:02 Dose: 1 mg Pt's Own Med ( Preparation H Ointment) 1 each NR Q12H PRN PRN Reason: HEMORRHOIDS Last Admin: 01/26/18 09:56 Dose: 1 each Ondansetron HCl (Zofran Injection) 8 mg IVPB Q6H PRN PRN Reason: NAUSEA Last Admin: 01/23/18 17:40 Dose: 8 mg Oxycodone HCl (Roxicodone -) 10 mg PO Q4H PRN PRN Reason: PAIN LEVEL 6-10 Last Admin: 01/27/18 06:19 Dose: 10 mg Pantoprazole Sodium (Protonix -) 40 mg PO DAILY [facility] Last Admin: 01/27/18 10:31 Dose: 40 mg Polyethylene Glycol (Miralax (For Daily Use) -) 17 gm PO DAILY [facility] Last Admin: 01/27/18 10:40 Dose: 17 gm Senna (Senna -) 2 tab PO HS PRN PRN Reason: CONSTIPATION Last Admin: 01/12/18 22:42 Dose: 2 tab Sodium Chloride ([place] -) 2 spray NS BID PRN PRN Reason: NASAL CONGESTION Last Admin: 01/19/18 11:53 Dose: 2 spray Tamsulosin HCl (Flomax -) 0.8 mg PO DAILY@0830 [facility] Last Admin: 01/27/18 08:30 Dose: 0.8 mg Vancomycin HCl (Vancomycin (Pre-Docked)) 1,000 mg IVPB BID@0600,1800 [facility] Stop: 01/30/18 06:01 Last Admin: 01/27/18 06:19 Dose: 1,000 mg Warfarin Sodium (Coumadin -) 5 mg PO DAILY@1800 [facility] Last Admin: 01/26/18 18:25 Dose: 5 mg - Objective Vital Signs: Vital Signs Temperature 97.5 F L 01/27/18 06:00 Pulse Rate 88 01/27/18 06:00 Respiratory Rate 20 01/27/18 06:00 Blood Pressure 115/66 01/27/18 06:00 O2 Sat by Pulse Oximetry (%) 97 01/26/18 21:00 Constitutional: Yes: Anxious Eyes: Yes: WNL HENT: Yes: WNL Neck: Yes: WNL Cardiovascular: Yes: S1, S2 (split) Respiratory: Yes: Regular Gastrointestinal: Yes: Soft ...Rectal Exam: Yes: Deferred Genitourinary: No: Anuria Breast(s): Yes: WNL Musculoskeletal: Yes: Muscle Weakness Extremities: Yes: Cool Edema: No Peripheral Pulses WNL: Yes Integumentary: Yes: Incision Wound/Incision: Yes: Clean/Dry Psychiatric: Yes: WNL Labs: CBC, BMP 01/27/18 06:30 01/27/18 06:30 INR, PTT INR 1.76 (0.83-1.09) H 01/27/18 06:30 Abnormal Lab Results 01/28/18 01/28/18 06:45 18:20 PT with INR 27.50 H INR 2.31 H Vancomycin Pre-Dose 28.4 H Problem List - Problems (1) MRSA bacteremia Assessment/Plan: febrile episodes; initially leukocytotic. antipyretics (avoid non-aspirin NSAIDs). antibiotics per ID (on Zosyn, Vancomycin, Clotrimazole). Code(s): R78.81 - BACTEREMIA (2) UTI (urinary tract infection) Code(s): N39.0 - URINARY TRACT INFECTION, SITE NOT SPECIFIED (3) Anxiety Code(s): F41.9 - ANXIETY DISORDER, UNSPECIFIED (4) Atrial fibrillation Assessment/Plan: 90 mg bid Lovenox until INR 2-3 with warfarin. EKG in am Code(s): I48.91 - UNSPECIFIED ATRIAL FIBRILLATION (5) Chronic lower back pain Assessment/Plan: spinal studies (xray) results noted; no metastases; no compression; mild lumbar spondylosis. Code(s): M54.5 - LOW BACK PAIN; G89.29 - OTHER CHRONIC PAIN (6) HTN (hypertension) Assessment/Plan: on lisinopril; on furosemide. Code(s): I10 - ESSENTIAL (PRIMARY) HYPERTENSION (7) Hematuria Code(s): R31.9 - HEMATURIA, UNSPECIFIED Qualifiers: Hematuria type: gross Qualified Code(s): R31.0 - Gross hematuria (8) Hyperlipidemia Assessment/Plan: Total cholesterol 118 mg/dL; on atorvastatin 20 mg daily. Code(s): E78.5 - HYPERLIPIDEMIA, UNSPECIFIED (9) Obesity Code(s): E66.9 - OBESITY, UNSPECIFIED (10) Urinary retention Assessment/Plan: . Code(s): R33.9 - RETENTION OF URINE, UNSPECIFIED (11) ASHD (arteriosclerotic heart disease) Assessment/Plan: s/p CABG s/p coronary and LE angioplasty/stents. On clopidogrel; statin; nitrate (Imdur). Code(s): I25.10 - ATHSCL HEART DISEASE OF [place] CORONARY ARTERY W/O ANG PCTRS (12) Anemia Code(s): D64.9 - ANEMIA, UNSPECIFIED (13) Prostate cancer Code(s): C61 - MALIGNANT NEOPLASM OF PROSTATE (14) Chronic diastolic (congestive) heart failure Code(s): I50.32 - CHRONIC DIASTOLIC (CONGESTIVE) HEART FAILURE
--- NOTE | 2018-01-27 15:18 | PN ---
Progress Note, Physician History of Present Illness: patient stable awaiting for final decisions upset - Current Medication List Current Medications: Active Medications Acetaminophen (Tylenol -) 650 mg PO Q6HPO [facility] Last Admin: 01/27/18 06:20 Dose: 650 mg Atorvastatin Calcium (Lipitor -) 20 mg PO HS [facility] Last Admin: 01/26/18 23:30 Dose: 20 mg Benzocaine (Americaine Ointment -) 1 applic MD PRN PRN PRN Reason: hemorrhoids. Last Admin: 01/22/18 16:55 Dose: 1 applic Clopidogrel Bisulfate (Plavix -) 75 mg PO DAILY [facility] Last Admin: 01/27/18 10:31 Dose: 75 mg Clotrimazole (Clotrimazole) 1 applic TP BID [facility] Last Admin: 01/26/18 23:31 Dose: 1 applic Docusate Sodium (Colace -) 100 mg PO Q8H PRN PRN Reason: CONSTIPATION Last Admin: 01/26/18 14:34 Dose: 100 mg Enoxaparin Sodium (Lovenox -) 90 mg SQ BID [facility] Last Admin: 01/27/18 10:32 Dose: 90 mg Ferrous Sulfate (Feosol -) 325 mg PO DAILY [facility] Last Admin: 01/27/18 10:31 Dose: 325 mg Folic Acid (Folic Acid -) 1 mg PO DAILY [facility] Last Admin: 01/27/18 10:31 Dose: 1 mg Furosemide (Lasix -) 20 mg PO DAILY [facility] Last Admin: 01/27/18 10:31 Dose: 20 mg Piperacillin Sod/Tazobactam (Sod 3.375 gm/ Dextrose) 50 mls @ 100 mls/hr IVPB Q8H-IV [facility]; Protocol Last Admin: 01/27/18 10:31 Dose: 100 mls/hr Isosorbide Mononitrate (Imdur -) 30 mg PO DAILY [facility] Last Admin: 01/27/18 10:31 Dose: 30 mg Lidocaine HCl (Xylocaine 2% Jelly) 1 applic TP BID PRN PRN Reason: MODERATE PAIN Last Admin: 01/27/18 02:57 Dose: 1 applic Melatonin (Melatonin) 10 mg PO HS PRN PRN Reason: INSOMNIA Last Admin: 01/26/18 23:29 Dose: 10 mg Morphine Sulfate (Morphine Sulfate) 1 mg IVPUSH Q6H PRN PRN Reason: PAIN LEVEL 6-10 Last Admin: 01/27/18 03:02 Dose: 1 mg Pt's Own Med ( Preparation H Ointment) 1 each NR Q12H PRN PRN Reason: HEMORRHOIDS Last Admin: 01/26/18 09:56 Dose: 1 each Ondansetron HCl (Zofran Injection) 8 mg IVPB Q6H PRN PRN Reason: NAUSEA Last Admin: 01/23/18 17:40 Dose: 8 mg Oxycodone HCl (Roxicodone -) 10 mg PO Q4H PRN PRN Reason: PAIN LEVEL 6-10 Last Admin: 01/27/18 06:19 Dose: 10 mg Pantoprazole Sodium (Protonix -) 40 mg PO DAILY [facility] Last Admin: 01/27/18 10:31 Dose: 40 mg Polyethylene Glycol (Miralax (For Daily Use) -) 17 gm PO DAILY [facility] Last Admin: 01/27/18 10:40 Dose: 17 gm Senna (Senna -) 2 tab PO HS PRN PRN Reason: CONSTIPATION Last Admin: 01/12/18 22:42 Dose: 2 tab Sodium Chloride ([place] Nasal [place] -) 2 spray NS BID PRN PRN Reason: NASAL CONGESTION Last Admin: 01/19/18 11:53 Dose: 2 spray Tamsulosin HCl (Flomax -) 0.8 mg PO DAILY@0830 [facility] Last Admin: 01/27/18 08:30 Dose: 0.8 mg Vancomycin HCl (Vancomycin (Pre-Docked)) 1,000 mg IVPB BID@0600,1800 [facility] Stop: 01/30/18 06:01 Last Admin: 01/27/18 06:19 Dose: 1,000 mg Warfarin Sodium (Coumadin -) 5 mg PO DAILY@1800 [facility] Last Admin: 01/26/18 18:25 Dose: 5 mg - Objective Vital Signs: Vital Signs Temperature 97.5 F L 01/27/18 06:00 Pulse Rate 88 01/27/18 06:00 Respiratory Rate 20 01/27/18 06:00 Blood Pressure 115/66 01/27/18 06:00 O2 Sat by Pulse Oximetry (%) 97 01/26/18 21:00 Constitutional: Yes: No Distress, Calm Cardiovascular: Yes: Regular Rate and Rhythm Respiratory: Yes: Regular, CTA Bilaterally Gastrointestinal: Yes: Normal Bowel Sounds, Soft Genitourinary: Yes: [place] Present Musculoskeletal: Yes: WNL Extremities: Yes: WNL Edema: LLE: 1+, RLE: 1+ Neurological: Yes: Alert, Oriented Psychiatric: Yes: Alert, Oriented Labs: CBC, BMP 01/27/18 06:30 01/27/18 06:30 INR, PTT INR 1.76 (0.83-1.09) H 01/27/18 06:30 Assessment/Plan patient with multiple medical problems coming with weakness and knee joint swelling Problem List - Problems (1) Fever Code(s): R50.9 - FEVER, UNSPECIFIED (2) Supratherapeutic INR Code(s): R79.1 - ABNORMAL COAGULATION PROFILE (3) Anxiety Code(s): F41.9 - ANXIETY DISORDER, UNSPECIFIED (4) Atrial fibrillation Code(s): I48.91 - UNSPECIFIED ATRIAL FIBRILLATION (5) Chest pain Code(s): R07.9 - CHEST PAIN, UNSPECIFIED Qualifiers: Chest pain type: unspecified Qualified Code(s): R07.9 - Chest pain, unspecified (6) [place] catheter in place Code(s): Z92.89 - PERSONAL HISTORY OF OTHER MEDICAL TREATMENT (7) HTN (hypertension) Code(s): I10 - ESSENTIAL (PRIMARY) HYPERTENSION (8) Hematuria Code(s): R31.9 - HEMATURIA, UNSPECIFIED Qualifiers: Hematuria type: gross Qualified Code(s): R31.0 - Gross hematuria (9) 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
[2018-01-27] MEDS: WARFARIN NA 5 MG TABLET (UD) PO SCH (17:13)
[2018-01-27] MEDS: ATORVASTATIN CA 20 MG TABLET (FP) PO SCH (21:46)
[2018-01-28] MEDS ORDERED: PIPERACILLIN/TAZOBACTAM 3.375 GM VIAL IVPB ONE ×3 (01:33→18:38)
[2018-01-28] MEDS ORDERED: DEXTROSE 5%-WATER - 50 ML IVPB ONE ×3 (01:34→18:38)
[2018-01-28] MEDS: MORPHINE SULFATE 2 MG/ML VIAL IVPUSH PRN (02:04)
[2018-01-28] MEDS: PIPERACILLIN/TAZOB 3.375 GM 3.375 GM in DEXTROSE 5%-WATER - 50 ML IVPB SCH ×3 (02:05→18:52)
[2018-01-28] MEDS: MELATONIN 5 MG TABLETS PO PRN (02:13)
[2018-01-28] MEDS: ACETAMINOPHEN 325 MG TABLET (FP) PO SCH ×3 (06:21→18:52)
[2018-01-28] MEDS: oxyCODONE HCL 5 MG TABLET PO PRN ×3 (06:22→18:56)
[2018-01-28] MEDS: VANCOMYCIN 1 GRAM (PRE-DOCKED) 1,000 MG/250 ML BAG IVPB SCH (06:22)
[2018-01-28 07:24] LABS: INR 2.31 (0.83-1.09); PROTHROMBIN TIME (PATIENT) 27.5 SEC (9.7-13.0)
[2018-01-28] MEDS: TAMSULOSIN HCL 0.4 MG CAP PO SCH (08:28)
--- NOTE | 2018-01-28 10:21 | PN ---
Progress Note, Physician History of Present Illness: he patient is a 77 year old male with a significant past medical history of HTN , HLD, CAD (s/p stents), prostate CA, urethral stricture (catheter in place) who presents to the ER with difficulty ranging his legs today. The patient states he noticed significant swelling, redness, and warmth to the bilateral knees. Patient reports he needed assistance to ambulate today, which is new for him. Patient states he was discharged from rehab four days ago and was ambulating appropriately until today. Patient has not eaten today as he is experiencing mild nausea. Patient denies taking any of his medications today. 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 Patient has his catheter in place and draining urine appropriately. Patient has a fever of 100.1 here in the ER. The patient denies chest pain, shortness of breath, headache, and dizziness. Denies chills, vomit, diarrhea, and constipation. Allergies: strawberry, pepper, iohexol Past surgical history: stents Social history: No reported alcohol, drug, or cigarette use. H cabg lithotripsy prostate seeds Ongoing medical problems Afib diagnosed at the hospital during SFA [employer] 08/2015 and has been on coumadin since then 2015 CAD Coronary artery bypass graft SANTIAGO of left SFA August 11, 2014 Dr. Blanton SANTIAGO of left PDA July 07, 2014 Dr. Blanton dizziness Hyperlipidemia Hypertension Negative MIBI stress test 2013 [facility] NSVT Pauses PCI SANTIAGO of p LCx March 30, 2015 Dr. Blanton PCI LCx 08/17/12 Fr[facility] PCI LCx 07/07/14 Dr. Blanton TALENT ADVISOR/stent right SFA 526/16 DR BLANTON Right SFA 100 occlusion July 07, 2014 Dr. Blanton s/p TALENT ADVISOR drug elluting balloon L SFA 2015 s/p TALENT ADVISOR left SFA 09/25/17 for left foot ulcer s/p urethral stricture after cystoscopy and urethrotomy the patient went into septic shock and was treated with antibiotics and was stabilized. October 2017 - Current Medication List Current Medications: Active Medications Acetaminophen (Tylenol -) 650 mg PO Q6HPO [facility] Last Admin: 01/28/18 06:21 Dose: 650 mg Atorvastatin Calcium (Lipitor -) 20 mg PO HS [facility] Last Admin: 01/27/18 21:46 Dose: 20 mg Benzocaine (Americaine Ointment -) 1 applic SD PRN PRN PRN Reason: hemorrhoids. Last Admin: 01/22/18 16:55 Dose: 1 applic Clopidogrel Bisulfate (Plavix -) 75 mg PO DAILY [facility] Last Admin: 01/27/18 10:31 Dose: 75 mg Clotrimazole (Clotrimazole) 1 applic TP BID [facility] Last Admin: 01/27/18 21:46 Dose: 1 applic Docusate Sodium (Colace -) 100 mg PO Q8H PRN PRN Reason: CONSTIPATION Last Admin: 01/26/18 14:34 Dose: 100 mg Enoxaparin Sodium (Lovenox -) 90 mg SQ BID [facility] Last Admin: 01/27/18 21:46 Dose: 90 mg Ferrous Sulfate (Feosol -) 325 mg PO DAILY [facility] Last Admin: 01/27/18 10:31 Dose: 325 mg Folic Acid (Folic Acid -) 1 mg PO DAILY [facility] Last Admin: 01/27/18 10:31 Dose: 1 mg Furosemide (Lasix -) 20 mg PO DAILY [facility] Last Admin: 01/27/18 10:31 Dose: 20 mg Piperacillin Sod/Tazobactam (Sod 3.375 gm/ Dextrose) 50 mls @ 100 mls/hr IVPB Q8H-IV [facility]; Protocol Last Admin: 01/28/18 02:05 Dose: 100 mls/hr Isosorbide Mononitrate (Imdur -) 30 mg PO DAILY [facility] Last Admin: 01/27/18 10:31 Dose: 30 mg Lidocaine HCl (Xylocaine 2% Jelly) 1 applic TP BID PRN PRN Reason: MODERATE PAIN Last Admin: 01/27/18 23:43 Dose: 1 applic Melatonin (Melatonin) 10 mg PO HS PRN PRN Reason: INSOMNIA Last Admin: 01/28/18 02:13 Dose: 10 mg Morphine Sulfate (Morphine Sulfate) 1 mg IVPUSH Q6H PRN PRN Reason: PAIN LEVEL 6-10 Last Admin: 01/28/18 02:04 Dose: 1 mg Pt's Own Med ( Preparation H Ointment) 1 each NR Q12H PRN PRN Reason: HEMORRHOIDS Last Admin: 01/26/18 09:56 Dose: 1 each Ondansetron HCl (Zofran Injection) 8 mg IVPB Q6H PRN PRN Reason: NAUSEA Last Admin: 01/23/18 17:40 Dose: 8 mg Oxycodone HCl (Roxicodone -) 10 mg PO Q4H PRN PRN Reason: PAIN LEVEL 6-10 Last Admin: 01/28/18 06:22 Dose: 10 mg Pantoprazole Sodium (Protonix -) 40 mg PO DAILY [facility] Last Admin: 01/27/18 10:31 Dose: 40 mg Polyethylene Glycol (Miralax (For Daily Use) -) 17 gm PO DAILY [facility] Last Admin: 01/27/18 10:40 Dose: 17 gm Senna (Senna -) 2 tab PO HS PRN PRN Reason: CONSTIPATION Last Admin: 01/12/18 22:42 Dose: 2 tab Sodium Chloride ([place] Nasal [place] -) 2 spray NS BID PRN PRN Reason: NASAL CONGESTION Last Admin: 01/19/18 11:53 Dose: 2 spray Tamsulosin HCl (Flomax -) 0.8 mg PO DAILY@0830 [facility] Last Admin: 01/28/18 08:28 Dose: 0.8 mg Vancomycin HCl (Vancomycin (Pre-Docked)) 1,000 mg IVPB BID@0600,1800 [facility] Stop: 01/30/18 06:01 Last Admin: 01/28/18 06:22 Dose: 1,000 mg Warfarin Sodium (Coumadin -) 5 mg PO DAILY@1800 [facility] Last Admin: 01/27/18 17:13 Dose: 5 mg - Objective Vital Signs: Vital Signs Temperature 98.4 F 01/28/18 06:00 Pulse Rate 88 01/28/18 09:56 Respiratory Rate 18 01/28/18 09:56 Blood Pressure 131/67 01/28/18 09:56 O2 Sat by Pulse Oximetry (%) 97 01/27/18 09:00 Eyes: Yes: WNL, Conjunctiva Clear, EOM Intact HENT: Yes: WNL, Atraumatic, Normocephalic Neck: Yes: WNL, Supple, Trachea Midline Cardiovascular: Yes: WNL, Regular Rate and Rhythm Respiratory: Yes: WNL, Regular, CTA Bilaterally Gastrointestinal: Yes: WNL, Normal Bowel Sounds Genitourinary: Yes: WNL Musculoskeletal: Yes: WNL Extremities: Yes: WNL Edema: No Integumentary: Yes: WNL Neurological: Yes: WNL, Alert, Oriented ...Motor Strength: WNL Psychiatric: Yes: WNL Labs: CBC, BMP 01/27/18 06:30 01/27/18 06:30 INR, PTT INR 2.31 (0.83-1.09) H 01/28/18 06:45 Assessment/Plan - Problems (1) MRSA bacteremia Assessment/Plan: febrile episodes; initially leukocytotic. antipyretics (avoid non-aspirin NSAIDs). antibiotics per ID (on Zosyn, Vancomycin, Clotrimazole). Code(s): R78.81 - BACTEREMIA (2) UTI (urinary tract infection) Code(s): N39.0 - URINARY TRACT INFECTION, SITE NOT SPECIFIED (3) Acute on chronic systolic (congestive) heart failure Assessment/Plan: On lisinopril. Furosemide prn. F/u Is and Os, daily weight, BUN/Cr, electrolytes. Code(s): I50.23 - ACUTE ON CHRONIC SYSTOLIC (CONGESTIVE) HEART FAILURE (4) Anxiety Code(s): F41.9 - ANXIETY DISORDER, UNSPECIFIED (5) Atrial fibrillation Assessment/Plan: 90 mg bid Lovenox until INR 2-3 with warfarin. Will restart warfarin EKG in am Code(s): I48.91 - UNSPECIFIED ATRIAL FIBRILLATION (6) Chronic lower back pain Assessment/Plan: spinal studies (xray) results noted; no metastases; no compression; mild lumbar spondylosis. Code(s): M54.5 - LOW BACK PAIN; G89.29 - OTHER CHRONIC PAIN (7) HTN (hypertension) Assessment/Plan: on lisinopril; on furosemide. Code(s): I10 - ESSENTIAL (PRIMARY) HYPERTENSION (8) Hematuria Code(s): R31.9 - HEMATURIA, UNSPECIFIED Qualifiers: Hematuria type: gross Qualified Code(s): R31.0 - Gross hematuria (9) Hyperlipidemia Assessment/Plan: Total cholesterol 118 mg/dL; on atorvastatin 20 mg daily. Code(s): E78.5 - HYPERLIPIDEMIA, UNSPECIFIED (10) Obesity Code(s): E66.9 - OBESITY, UNSPECIFIED (11) Urinary retention Assessment/Plan: . Code(s): R33.9 - RETENTION OF URINE, UNSPECIFIED (12) ASHD (arteriosclerotic heart disease) Assessment/Plan: s/p CABG s/p coronary and LE angioplasty/stents. On clopidogrel; statin; nitrate (Imdur). Code(s): I25.10 - ATHSCL HEART DISEASE OF [place] CORONARY ARTERY W/O ANG PCTRS (13) Anemia Code(s): D64.9 - ANEMIA, UNSPECIFIED (14) Prostate cancer Code(s): C61 - MALIGNANT NEOPLASM OF PROSTATE
[2018-01-28] MEDS ORDERED: PT OWN MED DRAWER 7, Y5N ONE ×2 (11:21→21:10)
[2018-01-28] MEDS: LIDOCAINE HCL 2% JELLY (5 ML/TUBE) TP PRN (11:27)
[2018-01-28] MEDS: FERROUS SO4 325 MG TABLET (FP) PO SCH (11:28)
[2018-01-28] MEDS: FOLIC ACID 1 MG TABLET (FP) PO SCH (11:28)
[2018-01-28] MEDS: PANTOPRAZOLE 40 MG TABLET (FP) PO SCH (11:29)
[2018-01-28] MEDS: FUROSEMIDE 20 MG TABLET (FP) PO SCH (11:29)
[2018-01-28] MEDS: CLOTRIMAZOLE 1% 10 ML TOPICAL SOLUTION TP SCH ×2 (11:29→21:31)
[2018-01-28] MEDS: ISOSORBIDE MONONITRATE 30 MG TAB.SR.24H (FP) PO SCH (11:29)
[2018-01-28] MEDS: CLOPIDOGREL BISULFATE 75 MG TABLET (FP) PO SCH (11:29)
[2018-01-28] MEDS: ENOXAPARIN NA (PORCINE) 100 MG/1 ML DISP.SYRIN SQ SCH ×2 (11:30→11:36)
[2018-01-28] MEDS: POLYETHYLENE GLYCOL 3350 119 GM BTL PO SCH (11:31)
--- NOTE | 2018-01-28 11:32 | PN ---
Progress Note (short form) - Note Progress Note: Pt examined hematuria at bedside insisting for surgery pain is better controlled Vital Signs - 24 hr 01/27/18 01/28/18 01/28/18 18:00 06:00 09:00 Temperature 98.1 F 98.4 F Pulse Rate 66 83 Respiratory 20 20 Rate Blood Pressure 105/49 L 105/56 L O2 Sat by Pulse 93 L Oximetry (%) 01/28/18 01/28/18 01/28/18 09:56 11:53 16:03 Temperature 98.5 F 97.8 F Pulse Rate 88 58 L Respiratory 18 20 Rate Blood Pressure 131/67 117/56 L O2 Sat by Pulse Oximetry (%) Current Medications Generic Name Dose Route Start Last Admin Trade Name Freq PRN Reason Stop Dose Admin Acetaminophen 650 mg 01/12/18 20:45 01/28/18 11:32 Tylenol - PO 650 mg Q6HPO JORJE Administration Atorvastatin Calcium 20 mg 01/12/18 22:00 01/27/18 21:46 Lipitor - PO 20 mg HS JORJE Administration Benzocaine 1 applic 01/22/18 07:52 01/22/18 16:55 Americaine Ointment - [place] 1 applic PRN PRN Administration hemorrhoids. Clotrimazole 1 applic 01/20/18 10:00 01/28/18 11:29 Clotrimazole TP 1 applic BID JORJE Administration Diazepam 5 mg 01/28/18 12:34 01/28/18 14:15 Valium - PO 5 mg Q8H PRN Administration WITHDRAWAL(CONT SUBST) Docusate Sodium 100 mg 01/24/18 13:28 01/26/18 14:34 Colace - PO 100 mg Q8H PRN Administration CONSTIPATION Ferrous Sulfate 325 mg 01/23/18 10:00 01/28/18 11:28 Feosol - PO 325 mg DAILY JORJE Administration Folic Acid 1 mg 01/13/18 10:00 01/28/18 11:28 Folic Acid - PO 1 mg DAILY [facility]JE Administration Furosemide 20 mg 01/13/18 10:00 01/28/18 11:29 Lasix - PO 20 mg DAILY [facility]JE Administration Piperacillin Sod/Tazobactam 50 mls @ 100 mls/hr 01/14/18 14:30 01/28/18 10:16 Sod 3.375 gm/ Dextrose IVPB 100 mls/hr Q8H-IV [facility] Administration Protocol Isosorbide Mononitrate 30 mg 01/13/18 10:00 01/28/18 11:29 Imdur - PO 30 mg DAILY [facility] Administration Lidocaine HCl 1 applic 01/13/18 11:44 01/28/18 11:27 Xylocaine 2% Jelly TP 1 applic BID PRN Administration MODERATE PAIN Melatonin 10 mg 01/21/18 11:42 01/28/18 02:13 Melatonin PO 10 mg HS PRN Administration INSOMNIA Pt's Own Med ( 1 each 01/22/18 18:53 01/26/18 09:56 Preparation H NR 1 each Ointment) Q12H PRN Administration HEMORRHOIDS Ondansetron HCl 8 mg 01/22/18 10:53 01/23/18 17:40 Zofran Injection IVPB 8 mg Q6H PRN Administration NAUSEA Oxycodone HCl 10 mg 01/22/18 10:12 01/28/18 11:35 Roxicodone - PO 10 mg Q4H PRN Administration PAIN LEVEL 6-10 Pantoprazole Sodium 40 mg 01/26/18 10:15 01/28/18 11:29 Protonix - PO 40 mg DAILY [facility]JE Administration Polyethylene Glycol 17 gm 01/15/18 13:00 01/28/18 11:31 Miralax (For Daily Use) - PO 17 gm DAILY [facility]JE Administration Senna 2 tab 01/12/18 20:07 01/12/18 22:42 Senna - PO 2 tab HS PRN Administration CONSTIPATION Sodium Chloride 2 spray 01/13/18 11:46 01/19/18 11:53 [place] Nasal [place] - NS 2 spray BID PRN Administration NASAL CONGESTION Tamsulosin HCl 0.8 mg 01/13/18 08:30 01/28/18 08:28 Flomax - PO 0.8 mg DAILY@0830 [facility]JE Administration Vancomycin HCl 1,000 mg 01/25/18 18:00 01/28/18 06:22 Vancomycin (Pre-Docked) IVPB 01/30/18 06:01 1,000 mg BID@0600,1800 JORJE Administration Laboratory Results - last 24 hr 01/28/18 06:45 PT with INR 27.50 H INR 2.31 H S s2 irregular Lungs decreased Abd- soft, NT No edema PLAN MRSA- blood cultures repeated negative - off CBI on iv antibiotics-- plan for 2 more days per ID had a long discussion with , pt, Dr Mata and Dr Garcia- pt is considered high risk for surgery - pt and are aware of risks. As per Dr Mata, there are no absolute contraindications for surgery - echo is better. will dc Warfarin and Plavix in anticipation for surgery-- which will probably be on Friday or Friday spoke with once INR <2-- will restart Lovenox 90mg BID Problem List - Problems (1) Supratherapeutic INR Code(s): R79.1 - ABNORMAL COAGULATION PROFILE (2) Anxiety Code(s): F41.9 - ANXIETY DISORDER, UNSPECIFIED (3) Atrial fibrillation Code(s): I48.91 - UNSPECIFIED ATRIAL FIBRILLATION (4) Chest pain Code(s): R07.9 - CHEST PAIN, UNSPECIFIED Qualifiers: Chest pain type: unspecified Qualified Code(s): R07.9 - Chest pain, unspecified (5) HTN (hypertension) Code(s): I10 - ESSENTIAL (PRIMARY) HYPERTENSION (6) Hematuria Code(s): R31.9 - HEMATURIA, UNSPECIFIED Qualifiers: Hematuria type: gross Qualified Code(s): R31.0 - Gross hematuria (7) Hx of CABG Code(s): Z95.1 - PRESENCE OF AORTOCORONARY BYPASS GRAFT (8) Hyperlipidemia Code(s): E78.5 - HYPERLIPIDEMIA, UNSPECIFIED (9) MRSA bacteremia Code(s): R78.81 - BACTEREMIA (10) UTI (urinary tract infection) Code(s): N39.0 - URINARY TRACT INFECTION, SITE NOT SPECIFIED
--- NOTE | 2018-01-28 13:58 | PN ---
Progress Note, Physician History of Present Illness: patient stable no new issues - Current Medication List Current Medications: Active Medications Acetaminophen (Tylenol -) 650 mg PO Q6HPO [facility] Last Admin: 01/28/18 11:32 Dose: 650 mg Atorvastatin Calcium (Lipitor -) 20 mg PO HS [facility] Last Admin: 01/27/18 21:46 Dose: 20 mg Benzocaine (Americaine Ointment -) 1 applic [place] PRN PRN PRN Reason: hemorrhoids. Last Admin: 01/22/18 16:55 Dose: 1 applic Clopidogrel Bisulfate (Plavix -) 75 mg PO DAILY [facility] Clotrimazole (Clotrimazole) 1 applic TP BID [facility] Last Admin: 01/28/18 11:29 Dose: 1 applic Diazepam (Valium -) 5 mg PO Q8H PRN PRN Reason: WITHDRAWAL(CONT SUBST) Docusate Sodium (Colace -) 100 mg PO Q8H PRN PRN Reason: CONSTIPATION Last Admin: 01/26/18 14:34 Dose: 100 mg Ferrous Sulfate (Feosol -) 325 mg PO DAILY [facility] Last Admin: 01/28/18 11:28 Dose: 325 mg Folic Acid (Folic Acid -) 1 mg PO DAILY [facility] Last Admin: 01/28/18 11:28 Dose: 1 mg Furosemide (Lasix -) 20 mg PO DAILY [facility] Last Admin: 01/28/18 11:29 Dose: 20 mg Piperacillin Sod/Tazobactam (Sod 3.375 gm/ Dextrose) 50 mls @ 100 mls/hr IVPB Q8H-IV [facility]; Protocol Last Admin: 01/28/18 10:16 Dose: 100 mls/hr Isosorbide Mononitrate (Imdur -) 30 mg PO DAILY [facility] Last Admin: 01/28/18 11:29 Dose: 30 mg Lidocaine HCl (Xylocaine 2% Jelly) 1 applic TP BID PRN PRN Reason: MODERATE PAIN Last Admin: 01/28/18 11:27 Dose: 1 applic Melatonin (Melatonin) 10 mg PO HS PRN PRN Reason: INSOMNIA Last Admin: 01/28/18 02:13 Dose: 10 mg Pt's Own Med ( Preparation H Ointment) 1 each NR Q12H PRN PRN Reason: HEMORRHOIDS Last Admin: 01/26/18 09:56 Dose: 1 each Ondansetron HCl (Zofran Injection) 8 mg IVPB Q6H PRN PRN Reason: NAUSEA Last Admin: 01/23/18 17:40 Dose: 8 mg Oxycodone HCl (Roxicodone -) 10 mg PO Q4H PRN PRN Reason: PAIN LEVEL 6-10 Last Admin: 01/28/18 11:35 Dose: 10 mg Pantoprazole Sodium (Protonix -) 40 mg PO DAILY [facility] Last Admin: 01/28/18 11:29 Dose: 40 mg Polyethylene Glycol (Miralax (For Daily Use) -) 17 gm PO DAILY [facility] Last Admin: 01/28/18 11:31 Dose: 17 gm Senna (Senna -) 2 tab PO HS PRN PRN Reason: CONSTIPATION Last Admin: 01/12/18 22:42 Dose: 2 tab Sodium Chloride ([place] Nasal [place] -) 2 spray NS BID PRN PRN Reason: NASAL CONGESTION Last Admin: 01/19/18 11:53 Dose: 2 spray Tamsulosin HCl (Flomax -) 0.8 mg PO DAILY@0830 [facility] Last Admin: 01/28/18 08:28 Dose: 0.8 mg Vancomycin HCl (Vancomycin (Pre-Docked)) 1,000 mg IVPB BID@0600,1800 [facility] Stop: 01/30/18 06:01 Last Admin: 01/28/18 06:22 Dose: 1,000 mg Warfarin Sodium (Coumadin -) 5 mg PO DAILY@1800 [facility] - Objective Vital Signs: Vital Signs Temperature 98.5 F 01/28/18 11:53 Pulse Rate 88 01/28/18 09:56 Respiratory Rate 18 01/28/18 09:56 Blood Pressure 131/67 01/28/18 09:56 O2 Sat by Pulse Oximetry (%) 93 L 01/28/18 09:00 Constitutional: Yes: No Distress, Calm Cardiovascular: Yes: S1, S2 Respiratory: Yes: Regular, CTA Bilaterally Gastrointestinal: Yes: Normal Bowel Sounds, Soft Genitourinary: Yes: [place] Present Musculoskeletal: Yes: WNL Extremities: Yes: Other Neurological: Yes: Alert, Oriented Psychiatric: Yes: Alert, Oriented Labs: CBC, BMP 01/27/18 06:30 01/27/18 06:30 INR, PTT INR 2.31 (0.83-1.09) H 10/10/18 06:45 Assessment/Plan patient with multiple medical problems coming with weakness and knee joint swelling Problem List - Problems (1) Fever Code(s): R50.9 - FEVER, UNSPECIFIED (2) Supratherapeutic INR Code(s): R79.1 - ABNORMAL COAGULATION PROFILE (3) Anxiety Code(s): F41.9 - ANXIETY DISORDER, UNSPECIFIED (4) Atrial fibrillation Code(s): I48.91 - UNSPECIFIED ATRIAL FIBRILLATION (5) Chest pain Code(s): R07.9 - CHEST PAIN, UNSPECIFIED Qualifiers: Chest pain type: unspecified Qualified Code(s): R07.9 - Chest pain, unspecified (6) [place] catheter in place Code(s): Z92.89 - PERSONAL HISTORY OF OTHER MEDICAL TREATMENT (7) HTN (hypertension) Code(s): I10 - ESSENTIAL (PRIMARY) HYPERTENSION (8) Hematuria Code(s): R31.9 - HEMATURIA, UNSPECIFIED Qualifiers: Hematuria type: gross Qualified Code(s): R31.0 - Gross hematuria (9) 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
[2018-01-28] MEDS: diazePAM 5 MG TABLET PO PRN ×2 (14:15→22:33)
[2018-01-28] MEDS ORDERED: WARFARIN NA 5 MG TABLET (UD) PO SCH (18:00)
[2018-01-28] MEDS: CYCLOBENZAPRINE HCL 10 MG TABLET (FP) PO SCH (19:56)
[2018-01-28] MEDS: ATORVASTATIN CA 20 MG TABLET (FP) PO SCH (22:31)
[2018-01-29] MEDS ORDERED: PIPERACILLIN/TAZOBACTAM 3.375 GM VIAL IVPB ONE ×3 (00:50→17:12)
[2018-01-29] MEDS ORDERED: DEXTROSE 5%-WATER - 50 ML IVPB ONE ×3 (00:50→17:12)
[2018-01-29] MEDS: ACETAMINOPHEN 325 MG TABLET (FP) PO SCH ×2 (01:05→06:45)
[2018-01-29] MEDS: oxyCODONE HCL 5 MG TABLET PO PRN ×2 (01:10→18:59)
[2018-01-29] MEDS: LIDOCAINE HCL 2% JELLY (5 ML/TUBE) TP PRN ×2 (01:12→10:29)
[2018-01-29] MEDS: PIPERACILLIN/TAZOB 3.375 GM 3.375 GM in DEXTROSE 5%-WATER - 50 ML IVPB SCH ×3 (01:13→17:25)
[2018-01-29] MEDS: PREPARATION H NR PRN (01:13)
[2018-01-29] MEDS: MELATONIN 5 MG TABLETS PO PRN ×2 (01:14→21:40)
[2018-01-29] MEDS ORDERED: oxyCODONE HCL 5 MG TABLET PO ONE (04:45)
[2018-01-29 07:24] LABS: HEMATOCRIT 25.8 % (35.4-49); HEMOGLOBIN 8.3 GM/dL (11.7-16.9); MCH 28.9 pg (25.7-33.7); MCHC 32.1 g/dl (32.0-35.9); MEAN CELL VOLUME 89.9 fl (80-96); MEAN PLT VOLUME 7.6 fl (7.5-11.1); PLATELET COUNT 349 K/MM3 (134-434); RBC 2.87 M/mm3 (4.00-5.60); RDW 19.6 % (11.9-15.9); WHITE BLOOD COUNT 8.6 K/mm3 (4.0-10.0)
[2018-01-29] MEDS: VANCOMYCIN 1 GRAM (PRE-DOCKED) 1,000 MG/250 ML BAG IVPB SCH (07:32)
[2018-01-29 08:03] LABS: INR 1.84 (0.83-1.09); PROTHROMBIN TIME (PATIENT) 21.9 SEC (9.7-13.0)
[2018-01-29] MEDS ORDERED: CLOPIDOGREL BISULFATE 75 MG TABLET (FP) PO SCH (10:00)
[2018-01-29] MEDS: ISOSORBIDE MONONITRATE 30 MG TAB.SR.24H (FP) PO SCH (10:21)
[2018-01-29] MEDS: CYCLOBENZAPRINE HCL 10 MG TABLET (FP) PO SCH (10:21)
[2018-01-29] MEDS: FOLIC ACID 1 MG TABLET (FP) PO SCH (10:25)
[2018-01-29] MEDS: FERROUS SO4 325 MG TABLET (FP) PO SCH (10:25)
[2018-01-29] MEDS: TAMSULOSIN HCL 0.4 MG CAP PO SCH (10:25)
[2018-01-29] MEDS: PANTOPRAZOLE 40 MG TABLET (FP) PO SCH (10:25)
[2018-01-29] MEDS: diazePAM 5 MG TABLET PO PRN ×2 (10:25→22:56)
[2018-01-29] MEDS: FUROSEMIDE 20 MG TABLET (FP) PO SCH (10:25)
[2018-01-29] MEDS ORDERED: PT OWN MED DRAWER 7, Y5N ONE ×2 (10:27→11:47)
[2018-01-29] MEDS: CLOTRIMAZOLE 1% 10 ML TOPICAL SOLUTION TP SCH ×2 (10:28→22:38)
[2018-01-29] MEDS: POLYETHYLENE GLYCOL 3350 119 GM BTL PO SCH (10:30)
--- NOTE | 2018-01-29 10:48 | PN ---
Progress Note (short form) - Note Progress Note: Pt examined hematuria pain is better controlled after getting medicated has soft stools Has hemorrhoidal and penis pain Vital Signs - 24 hr 01/28/18 01/28/18 01/28/18 11:53 16:03 18:00 Temperature 98.5 F 97.8 F 98.5 F Pulse Rate 58 L 60 Respiratory 20 20 Rate Blood Pressure 117/56 L 107/53 L 01/28/18 01/29/18 01/29/18 21:00 06:00 10:00 Temperature 98.6 F 98.7 F Pulse Rate 81 86 Respiratory 20 20 18 Rate Blood Pressure 107/55 L 113/56 L Current Medications Generic Name Dose Route Start Last Admin Trade Name Freq PRN Reason Stop Dose Admin Acetaminophen 650 mg 01/12/18 20:45 01/29/18 06:45 Tylenol - PO Not Given Q6HPO JORJE Atorvastatin Calcium 20 mg 01/12/18 22:00 01/28/18 22:31 Lipitor - PO 20 mg HS JORJE Administration Benzocaine 1 applic 01/22/18 07:52 01/22/18 16:55 Americaine Ointment - NV 1 applic PRN PRN Administration hemorrhoids. Clotrimazole 1 applic 01/20/18 10:00 01/29/18 10:28 Clotrimazole TP 1 applic BID JORJE Administration Cyclobenzaprine HCl 5 mg 01/28/18 18:45 01/29/18 10:21 Flexeril - PO 5 mg DAILY JORJE Administration Diazepam 5 mg 01/28/18 12:34 01/29/18 10:25 Valium - PO 5 mg Q8H PRN Administration WITHDRAWAL(CONT SUBST) Docusate Sodium 100 mg 01/24/18 13:28 01/26/18 14:34 Colace - PO 100 mg Q8H PRN Administration CONSTIPATION Enoxaparin Sodium 90 mg 01/29/18 11:15 Lovenox - SQ Q12H JORJE Ferrous Sulfate 325 mg 01/23/18 10:00 01/29/18 10:25 Feosol - PO 325 mg DAILY JORJE Administration Folic Acid 1 mg 01/13/18 10:00 01/29/18 10:25 Folic Acid - PO 1 mg DAILY JORJE Administration Furosemide 20 mg 01/13/18 10:00 01/29/18 10:25 Lasix - PO 20 mg DAILY JOREJ Administration Piperacillin Sod/Tazobactam 50 mls @ 100 mls/hr 01/14/18 14:30 01/29/18 10:21 Sod 3.375 gm/ Dextrose IVPB 100 mls/hr Q8H-IV JORJE Administration Protocol Isosorbide Mononitrate 30 mg 01/13/18 10:00 01/29/18 10:21 Imdur - PO 30 mg DAILY JORJE Administration Lidocaine HCl 1 applic 01/13/18 11:44 01/29/18 10:29 Xylocaine 2% Jelly TP 1 applic BID PRN Administration MODERATE PAIN Melatonin 10 mg 01/21/18 11:42 01/29/18 01:14 Melatonin PO 10 mg HS PRN Administration INSOMNIA Pt's Own Med ( 1 each 01/22/18 18:53 01/29/18 01:13 Preparation H NR 1 each Ointment) Q12H PRN Administration HEMORRHOIDS Ondansetron HCl 8 mg 01/22/18 10:53 01/23/18 17:40 Zofran Injection IVPB 8 mg Q6H PRN Administration NAUSEA Oxycodone HCl 10 mg 01/22/18 10:12 01/29/18 01:10 Roxicodone - PO 10 mg Q4H PRN Administration PAIN LEVEL 6-10 Pantoprazole Sodium 40 mg 01/26/18 10:15 01/29/18 10:25 Protonix - PO 40 mg DAILY JORJE Administration Polyethylene Glycol 17 gm 01/15/18 13:00 01/29/18 10:30 Miralax (For Daily Use) - PO 17 gm DAILY JORJE Administration Senna 2 tab 01/12/18 20:07 01/12/18 22:42 Senna - PO 2 tab HS PRN Administration CONSTIPATION Sodium Chloride 2 spray 01/13/18 11:46 01/19/18 11:53 [place] Nasal [place] - NS 2 spray BID PRN Administration NASAL CONGESTION Tamsulosin HCl 0.8 mg 01/13/18 08:30 01/29/18 10:25 Flomax - PO 0.8 mg DAILY@0830 JORJE Administration Laboratory Results - last 24 hr 01/28/18 01/29/18 01/29/18 18:20 06:40 06:40 WBC 8.6 RBC 2.87 L Hgb 8.3 L Hct 25.8 L MCV 89.9 MCH 28.9 MCHC 32.1 RDW 19.6 H Plt Count 349 MPV 7.6 PT with INR 21.90 H INR 1.84 H Vancomycin Pre-Dose 28.4 H S s2 irregular Lungs decreased Abd- soft, NT No edema PLAN MRSA- blood cultures repeated negative - off CBI on iv antibiotics-- plan for 1 more day per ID 01/28- had a long discussion with , pt, Dr Mata and Dr Garcia- pt is considered high risk for surgery - pt and are aware of risks. As per Dr Mata, there are no absolute contraindications for surgery - echo is better. will dc Warfarin and Plavix in anticipation for surgery-- which will probably be on Friday or Monday 01/29- INR <2-- will restart Lovenox 90mg BID check CBC will medically optimize pt for surgery continue with pain control Problem List - Problems (1) Supratherapeutic INR Code(s): R79.1 - ABNORMAL COAGULATION PROFILE (2) Anxiety Code(s): F41.9 - ANXIETY DISORDER, UNSPECIFIED (3) Atrial fibrillation Code(s): I48.91 - UNSPECIFIED ATRIAL FIBRILLATION (4) Chest pain Code(s): R07.9 - CHEST PAIN, UNSPECIFIED Qualifiers: Chest pain type: unspecified Qualified Code(s): R07.9 - Chest pain, unspecified (5) HTN (hypertension) Code(s): I10 - ESSENTIAL (PRIMARY) HYPERTENSION (6) Hematuria Code(s): R31.9 - HEMATURIA, UNSPECIFIED Qualifiers: Hematuria type: gross Qualified Code(s): R31.0 - Gross hematuria (7) Hx of CABG Code(s): Z95.1 - PRESENCE OF AORTOCORONARY BYPASS GRAFT (8) Hyperlipidemia Code(s): E78.5 - HYPERLIPIDEMIA, UNSPECIFIED (9) MRSA bacteremia Code(s): R78.81 - BACTEREMIA (10) UTI (urinary tract infection) Code(s): N39.0 - URINARY TRACT INFECTION, SITE NOT SPECIFIED
[2018-01-29] MEDS: ENOXAPARIN NA (PORCINE) 100 MG/1 ML DISP.SYRIN SQ SCH ×2 (11:55→21:40)
--- NOTE | 2018-01-29 16:26 | PN ---
Progress Note, Physician - Current Medication List Current Medications: Active Medications Acetaminophen (Tylenol -) 650 mg PO Q6HPO PRN PRN Reason: FEVER Atorvastatin Calcium (Lipitor -) 20 mg PO HS [facility] Last Admin: 01/28/18 22:31 Dose: 20 mg Benzocaine (Americaine Ointment -) 1 applic [place] PRN PRN PRN Reason: hemorrhoids. Last Admin: 01/22/18 16:55 Dose: 1 applic Clotrimazole (Clotrimazole) 1 applic TP BID [facility] Last Admin: 01/29/18 10:28 Dose: 1 applic Cyclobenzaprine HCl (Flexeril -) 5 mg PO DAILY [facility] Last Admin: 01/29/18 10:21 Dose: 5 mg Diazepam (Valium -) 5 mg PO Q8H PRN PRN Reason: WITHDRAWAL(CONT SUBST) Last Admin: 01/29/18 10:25 Dose: 5 mg Docusate Sodium (Colace -) 100 mg PO Q8H PRN PRN Reason: CONSTIPATION Last Admin: 01/26/18 14:34 Dose: 100 mg Enoxaparin Sodium (Lovenox -) 90 mg SQ BID [facility] Last Admin: 01/29/18 11:55 Dose: 90 mg Ferrous Sulfate (Feosol -) 325 mg PO DAILY [facility] Last Admin: 01/29/18 10:25 Dose: 325 mg Folic Acid (Folic Acid -) 1 mg PO DAILY [facility] Last Admin: 01/29/18 10:25 Dose: 1 mg Furosemide (Lasix -) 20 mg PO DAILY [facility] Last Admin: 01/29/18 10:25 Dose: 20 mg Piperacillin Sod/Tazobactam (Sod 3.375 gm/ Dextrose) 50 mls @ 100 mls/hr IVPB Q8H-IV JORJE; Protocol Last Admin: 01/29/18 10:21 Dose: 100 mls/hr Isosorbide Mononitrate (Imdur -) 30 mg PO DAILY [facility] Last Admin: 01/29/18 10:21 Dose: 30 mg Lidocaine HCl (Xylocaine 2% Jelly) 1 applic TP BID PRN PRN Reason: MODERATE PAIN Last Admin: 01/29/18 10:29 Dose: 1 applic Melatonin (Melatonin) 10 mg PO HS PRN PRN Reason: INSOMNIA Last Admin: 01/29/18 01:14 Dose: 10 mg Pt's Own Med ( Preparation H Ointment) 1 each NR Q12H PRN PRN Reason: HEMORRHOIDS Last Admin: 01/29/18 01:13 Dose: 1 each Ondansetron HCl (Zofran Injection) 8 mg IVPB Q6H PRN PRN Reason: NAUSEA Last Admin: 01/23/18 17:40 Dose: 8 mg Oxycodone HCl (Roxicodone -) 10 mg PO Q4H PRN PRN Reason: PAIN LEVEL 6-10 Last Admin: 01/29/18 01:10 Dose: 10 mg Pantoprazole Sodium (Protonix -) 40 mg PO DAILY [facility] Last Admin: 01/29/18 10:25 Dose: 40 mg Polyethylene Glycol (Miralax (For Daily Use) -) 17 gm PO DAILY [facility] Last Admin: 01/29/18 10:30 Dose: 17 gm Senna (Senna -) 2 tab PO HS PRN PRN Reason: CONSTIPATION Last Admin: 01/12/18 22:42 Dose: 2 tab Sodium Chloride ([employer] [employer]al [place] -) 2 spray NS BID PRN PRN Reason: NASAL CONGESTION Last Admin: 01/19/18 11:53 Dose: 2 spray Tamsulosin HCl (Flomax -) 0.8 mg PO DAILY@0830 [facility] Last Admin: 01/29/18 10:25 Dose: 0.8 mg - Objective Vital Signs: Vital Signs Temperature 98.1 F 01/29/18 14:49 Pulse Rate 83 01/29/18 14:49 Respiratory Rate 20 01/29/18 14:49 Blood Pressure 116/71 01/29/18 14:49 O2 Sat by Pulse Oximetry (%) 94 L 01/29/18 10:00 Labs: CBC, BMP 01/29/18 06:40 01/27/18 06:30 INR, PTT INR 1.84 (0.83-1.09) H 01/29/18 06:40
[2018-01-29] MEDS: ACETAMINOPHEN 325 MG TABLET (FP) PO PRN (18:58)
[2018-01-29] MEDS: ATORVASTATIN CA 20 MG TABLET (FP) PO SCH (21:40)
[2018-01-30] MEDS ORDERED: PIPERACILLIN/TAZOBACTAM 3.375 GM VIAL IVPB ONE ×2 (01:04→10:51)
[2018-01-30] MEDS ORDERED: DEXTROSE 5%-WATER - 50 ML IVPB ONE ×2 (01:04→10:51)
[2018-01-30] MEDS: PIPERACILLIN/TAZOB 3.375 GM 3.375 GM in DEXTROSE 5%-WATER - 50 ML IVPB SCH ×2 (02:09→10:58)
[2018-01-30] MEDS: oxyCODONE HCL 5 MG TABLET PO PRN ×4 (02:15→20:52)
[2018-01-30 08:12] LABS: HEMATOCRIT 26.1 % (35.4-49); HEMOGLOBIN 8.5 GM/dL (11.7-16.9); MCH 29.5 pg (25.7-33.7); MCHC 32.6 g/dl (32.0-35.9); MEAN CELL VOLUME 90.5 fl (80-96); MEAN PLT VOLUME 7.3 fl (7.5-11.1); PLATELET COUNT 358 K/MM3 (134-434); RBC 2.88 M/mm3 (4.00-5.60); RDW 19.2 % (11.9-15.9); WHITE BLOOD COUNT 7.7 K/mm3 (4.0-10.0)
[2018-01-30] MEDS: TAMSULOSIN HCL 0.4 MG CAP PO SCH (08:30)
[2018-01-30 08:31] LABS: ANION GAP 6 MMOL/L (8-16); BLOOD UREA NITROGEN 30 mg/dL (7-18); CALCIUM 9.1 mg/dL (8.5-10.1); CHLORIDE 105 mmol/L (98-107); CO2 26 mmol/L (21-32); CREATININE 1.7 mg/dL (0.55-1.3); GLUCOSE,RANDOM 97 mg/dL (74-106); POTASSIUM 4.2 mmol/L (3.5-5.1); SODIUM 137 mmol/L (136-145)
[2018-01-30 08:34] LABS: INR 1.53 (0.83-1.09); PROTHROMBIN TIME (PATIENT) 18.1 SEC (9.7-13.0)
[2018-01-30] MEDS: ISOSORBIDE MONONITRATE 30 MG TAB.SR.24H (FP) PO SCH (10:57)
[2018-01-30] MEDS: FUROSEMIDE 20 MG TABLET (FP) PO SCH (10:57)
[2018-01-30] MEDS: FOLIC ACID 1 MG TABLET (FP) PO SCH (10:57)
[2018-01-30] MEDS: CYCLOBENZAPRINE HCL 10 MG TABLET (FP) PO SCH (10:57)
[2018-01-30] MEDS: FERROUS SO4 325 MG TABLET (FP) PO SCH (10:57)
[2018-01-30] MEDS: ENOXAPARIN NA (PORCINE) 100 MG/1 ML DISP.SYRIN SQ SCH ×2 (10:58→21:07)
[2018-01-30] MEDS: PANTOPRAZOLE 40 MG TABLET (FP) PO SCH (10:58)
[2018-01-30] MEDS: POLYETHYLENE GLYCOL 3350 119 GM BTL PO SCH (10:59)
--- NOTE | 2018-01-30 10:59 | PN ---
Progress Note (short form) - Note Progress Note: pt seen/ examined chart reviewed events noted discussed with Dr. Ramirez also Vital Signs Temp 98.5 F 01/30/18 07:43 Pulse 77 01/30/18 07:43 Resp 20 01/30/18 07:43 BP 114/64 01/30/18 07:43 Pulse Ox 94 L 01/29/18 21:00 Intake & Output 01/29/18 01/29/18 01/30/18 11:59 23:59 11:59 Intake Total 380 300 50 Output Total 1000 1150 1000 Balance -620 -850 -950 Intake: IVPB 50 100 50 Oral 330 200 Output: Urine 1000 1150 1000 [place] 1000 1150 1000 Other: Voiding Method Indwelling Catheter Indwelling Catheter Bowel Movement No Yes Yes # Bowel Movements 1 1 Active Medications Acetaminophen (Tylenol -) 650 mg PO Q6HPO PRN PRN Reason: FEVER Last Admin: 01/29/18 18:58 Dose: 650 mg Atorvastatin Calcium (Lipitor -) 20 mg PO HS [facility] Last Admin: 01/29/18 21:40 Dose: 20 mg Benzocaine (Americaine Ointment -) 1 applic [place] PRN PRN PRN Reason: hemorrhoids. Last Admin: 01/22/18 16:55 Dose: 1 applic Clotrimazole (Clotrimazole) 1 applic TP BID [facility] Last Admin: 01/29/18 22:38 Dose: Not Given Cyclobenzaprine HCl (Flexeril -) 5 mg PO DAILY [facility] Last Admin: 01/29/18 10:21 Dose: 5 mg Diazepam (Valium -) 5 mg PO Q8H PRN PRN Reason: WITHDRAWAL(CONT SUBST) Last Admin: 01/29/18 22:56 Dose: 5 mg Docusate Sodium (Colace -) 100 mg PO Q8H PRN PRN Reason: CONSTIPATION Last Admin: 01/26/18 14:34 Dose: 100 mg Enoxaparin Sodium (Lovenox -) 90 mg SQ BID [facility] Last Admin: 01/29/18 21:40 Dose: 90 mg Ferrous Sulfate (Feosol -) 325 mg PO DAILY [facility] Last Admin: 01/29/18 10:25 Dose: 325 mg Folic Acid (Folic Acid -) 1 mg PO DAILY [facility] Last Admin: 01/29/18 10:25 Dose: 1 mg Furosemide (Lasix -) 20 mg PO DAILY JORJE Last Admin: 01/29/18 10:25 Dose: 20 mg Piperacillin Sod/Tazobactam (Sod 3.375 gm/ Dextrose) 50 mls @ 100 mls/hr IVPB Q8H-IV JORJE; Protocol Last Admin: 01/30/18 02:09 Dose: 100 mls/hr Isosorbide Mononitrate (Imdur -) 30 mg PO DAILY JORJE Last Admin: 01/29/18 10:21 Dose: 30 mg Lidocaine HCl (Xylocaine 2% Jelly) 1 applic TP BID PRN PRN Reason: MODERATE PAIN Last Admin: 01/29/18 10:29 Dose: 1 applic Melatonin (Melatonin) 10 mg PO HS PRN PRN Reason: INSOMNIA Last Admin: 01/29/18 21:40 Dose: 10 mg Pt's Own Med ( Preparation H Ointment) 1 each NR Q12H PRN PRN Reason: HEMORRHOIDS Last Admin: 01/29/18 01:13 Dose: 1 each Ondansetron HCl (Zofran Injection) 8 mg IVPB Q6H PRN PRN Reason: NAUSEA Last Admin: 01/23/18 17:40 Dose: 8 mg Oxycodone HCl (Roxicodone -) 10 mg PO Q4H PRN PRN Reason: PAIN LEVEL 6-10 Last Admin: 01/30/18 02:15 Dose: 10 mg Pantoprazole Sodium (Protonix -) 40 mg PO DAILY [facility] Last Admin: 01/29/18 10:25 Dose: 40 mg Polyethylene Glycol (Miralax (For Daily Use) -) 17 gm PO DAILY [facility] Last Admin: 01/29/18 10:30 Dose: 17 gm Senna (Senna -) 2 tab PO HS PRN PRN Reason: CONSTIPATION Last Admin: 01/12/18 22:42 Dose: 2 tab Sodium Chloride ([place] -) 2 spray NS BID PRN PRN Reason: NASAL CONGESTION Last Admin: 01/19/18 11:53 Dose: 2 spray Tamsulosin HCl (Flomax -) 0.8 mg PO DAILY@0830 JORJE Last Admin: 01/29/18 10:25 Dose: 0.8 mg CBC, BMP 01/30/18 07:08 01/30/18 07:08 Physical Exam S 1 s2 irregular Lungs decreased Abd- soft, NT No edema neuro- alert / awake bishop + PLAN MRSA - off CBI continue present care bishop care continue present care. abx prep H lidocaine for penile pain daily oob - chair . monitor labs on lovenox for or on friday -- urology to follow will follow Problem List - Problems (1) Anemia Code(s): D64.9 - ANEMIA, UNSPECIFIED (2) MRSA bacteremia Code(s): R78.81 - BACTEREMIA (3) Atrial fibrillation Code(s): I48.91 - UNSPECIFIED ATRIAL FIBRILLATION (4) HTN (hypertension) Code(s): I10 - ESSENTIAL (PRIMARY) HYPERTENSION
[2018-01-30] MEDS: CLOTRIMAZOLE 1% 10 ML TOPICAL SOLUTION TP SCH ×2 (11:00→23:31)
[2018-01-30] MEDS ORDERED: PT OWN MED DRAWER 7, Y5N ONE (12:32)
--- NOTE | 2018-01-30 13:04 | PN ---
Progress Note, Physician History of Present Illness: doing well no issues - Current Medication List Current Medications: Active Medications Acetaminophen (Tylenol -) 650 mg PO Q6HPO PRN PRN Reason: FEVER Last Admin: 01/29/18 18:58 Dose: 650 mg Atorvastatin Calcium (Lipitor -) 20 mg PO HS [facility] Last Admin: 01/29/18 21:40 Dose: 20 mg Benzocaine (Americaine Ointment -) 1 applic [place] PRN PRN PRN Reason: hemorrhoids. Last Admin: 01/22/18 16:55 Dose: 1 applic Clotrimazole (Clotrimazole) 1 applic TP BID [facility] Last Admin: 01/29/18 22:38 Dose: Not Given Cyclobenzaprine HCl (Flexeril -) 5 mg PO DAILY [facility] Last Admin: 01/30/18 10:57 Dose: 5 mg Diazepam (Valium -) 5 mg PO Q8H PRN PRN Reason: WITHDRAWAL(CONT SUBST) Last Admin: 01/29/18 22:56 Dose: 5 mg Docusate Sodium (Colace -) 100 mg PO Q8H PRN PRN Reason: CONSTIPATION Last Admin: 01/26/18 14:34 Dose: 100 mg Enoxaparin Sodium (Lovenox -) 90 mg SQ BID [facility] Last Admin: 01/30/18 10:58 Dose: 90 mg Ferrous Sulfate (Feosol -) 325 mg PO DAILY [facility] Last Admin: 01/30/18 10:57 Dose: 325 mg Folic Acid (Folic Acid -) 1 mg PO DAILY [facility] Last Admin: 01/30/18 10:57 Dose: 1 mg Furosemide (Lasix -) 20 mg PO DAILY [facility] Last Admin: 01/30/18 10:57 Dose: 20 mg Isosorbide Mononitrate (Imdur -) 30 mg PO DAILY [facility] Last Admin: 01/30/18 10:57 Dose: 30 mg Lidocaine HCl (Xylocaine 2% Jelly) 1 applic TP BID PRN PRN Reason: MODERATE PAIN Last Admin: 01/29/18 10:29 Dose: 1 applic Melatonin (Melatonin) 10 mg PO HS PRN PRN Reason: INSOMNIA Last Admin: 01/29/18 21:40 Dose: 10 mg Pt's Own Med ( Preparation H Ointment) 1 each NR Q12H PRN PRN Reason: HEMORRHOIDS Last Admin: 01/29/18 01:13 Dose: 1 each Ondansetron HCl (Zofran Injection) 8 mg IVPB Q6H PRN PRN Reason: NAUSEA Last Admin: 01/23/18 17:40 Dose: 8 mg Oxycodone HCl (Roxicodone -) 10 mg PO Q4H PRN PRN Reason: PAIN LEVEL 6-10 Last Admin: 01/30/18 11:10 Dose: 10 mg Pantoprazole Sodium (Protonix -) 40 mg PO DAILY [facility] Last Admin: 01/30/18 10:58 Dose: 40 mg Polyethylene Glycol (Miralax (For Daily Use) -) 17 gm PO DAILY [facility] Last Admin: 01/30/18 10:59 Dose: 17 gm Senna (Senna -) 2 tab PO HS PRN PRN Reason: CONSTIPATION Last Admin: 01/12/18 22:42 Dose: 2 tab Sodium Chloride ([place] -) 2 spray NS BID PRN PRN Reason: NASAL CONGESTION Last Admin: 01/19/18 11:53 Dose: 2 spray Tamsulosin HCl (Flomax -) 0.8 mg PO DAILY@0830 [facility] Last Admin: 01/30/18 08:30 Dose: 0.8 mg - Objective Vital Signs: Vital Signs Temperature 98.5 F 01/30/18 07:43 Pulse Rate 77 01/30/18 07:43 Respiratory Rate 20 01/30/18 07:43 Blood Pressure 114/64 01/30/18 07:43 O2 Sat by Pulse Oximetry (%) 94 L 01/29/18 21:00 Constitutional: Yes: No Distress, Calm Cardiovascular: Yes: S1, S2 Respiratory: Yes: Regular, CTA Bilaterally Gastrointestinal: Yes: Normal Bowel Sounds, Soft Genitourinary: Yes: [place] Present Musculoskeletal: Yes: WNL Extremities: Yes: WNL Neurological: Yes: Alert, Oriented Psychiatric: Yes: Alert, Oriented Labs: CBC, BMP 01/30/18 07:08 01/30/18 07:08 INR, PTT INR 1.53 (0.83-1.09) H 01/30/18 07:08 Assessment/Plan patient with multiple medical problems coming with weakness and knee joint swelling Problem List - Problems (1) Fever Code(s): R50.9 - FEVER, UNSPECIFIED (2) Supratherapeutic INR Code(s): R79.1 - ABNORMAL COAGULATION PROFILE (3) Anxiety Code(s): F41.9 - ANXIETY DISORDER, UNSPECIFIED (4) Atrial fibrillation Code(s): I48.91 - UNSPECIFIED ATRIAL FIBRILLATION (5) Chest pain Code(s): R07.9 - CHEST PAIN, UNSPECIFIED Qualifiers: Chest pain type: unspecified Qualified Code(s): R07.9 - Chest pain, unspecified (6) [place] catheter in place Code(s): Z92.89 - PERSONAL HISTORY OF OTHER MEDICAL TREATMENT (7) HTN (hypertension) Code(s): I10 - ESSENTIAL (PRIMARY) HYPERTENSION (8) Hematuria Code(s): R31.9 - HEMATURIA, UNSPECIFIED Qualifiers: Hematuria type: gross Qualified Code(s): R31.0 - Gross hematuria (9) Hx of CABG Code(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
--- NOTE | 2018-01-30 17:00 | PN ---
Progress Note, Physician Chief Complaint: Pt A&Ox3; sitting up at bedside; no chest pain or dyspnea. Pain has returned to knees. History of Present Illness: The patient is a 77 year old white man (rajiv Owusu) with a significant past medical history of HTN, HLD, CAD (s/p stents), diastolic CHF,?PAF, prostate CA, urethral stricture (catheter in place) who presents to the ER with difficulty ranging his legs today. The patient states he noticed significant swelling, redness, and warmth to the bilateral knees. Patient reports he needed assistance to ambulate today, which is new for him. Patient states he was discharged from rehab four days ago and was ambulating appropriately until today. Patient has not eaten today as he is experiencing mild nausea. Patient denies taking any of his medications today. 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 Patient has his catheter in place and draining urine appropriately. Patient has a fever of 100.1 here in the ER. - Current Medication List Current Medications: Active Medications Acetaminophen (Tylenol -) 650 mg PO Q6HPO PRN PRN Reason: FEVER Last Admin: 01/29/18 18:58 Dose: 650 mg Atorvastatin Calcium (Lipitor -) 20 mg PO HS [facility] Last Admin: 01/29/18 21:40 Dose: 20 mg Benzocaine (Americaine Ointment -) 1 applic [place] PRN PRN PRN Reason: hemorrhoids. Last Admin: 01/22/18 16:55 Dose: 1 applic Clotrimazole (Clotrimazole) 1 applic TP BID [facility] Last Admin: 01/29/18 22:38 Dose: Not Given Cyclobenzaprine HCl (Flexeril -) 5 mg PO DAILY [facility] Last Admin: 01/30/18 10:57 Dose: 5 mg Diazepam (Valium -) 5 mg PO Q8H PRN PRN Reason: WITHDRAWAL(CONT SUBST) Last Admin: 01/29/18 22:56 Dose: 5 mg Docusate Sodium (Colace -) 100 mg PO Q8H PRN PRN Reason: CONSTIPATION Last Admin: 01/26/18 14:34 Dose: 100 mg Enoxaparin Sodium (Lovenox -) 90 mg SQ BID [facility] Last Admin: 01/30/18 10:58 Dose: 90 mg Ferrous Sulfate (Feosol -) 325 mg PO DAILY [facility] Last Admin: 01/30/18 10:57 Dose: 325 mg Folic Acid (Folic Acid -) 1 mg PO DAILY [facility] Last Admin: 01/30/18 10:57 Dose: 1 mg Furosemide (Lasix -) 20 mg PO DAILY [facility] Last Admin: 01/30/18 10:57 Dose: 20 mg Isosorbide Mononitrate (Imdur -) 30 mg PO DAILY [facility] Last Admin: 01/30/18 10:57 Dose: 30 mg Lidocaine HCl (Xylocaine 2% Jelly) 1 applic TP BID PRN PRN Reason: MODERATE PAIN Last Admin: 01/29/18 10:29 Dose: 1 applic Melatonin (Melatonin) 10 mg PO HS PRN PRN Reason: INSOMNIA Last Admin: 01/29/18 21:40 Dose: 10 mg Pt's Own Med ( Preparation H Ointment) 1 each NR Q12H PRN PRN Reason: HEMORRHOIDS Last Admin: 01/29/18 01:13 Dose: 1 each Ondansetron HCl (Zofran Injection) 8 mg IVPB Q6H PRN PRN Reason: NAUSEA Last Admin: 01/23/18 17:40 Dose: 8 mg Oxycodone HCl (Roxicodone -) 10 mg PO Q4H PRN PRN Reason: PAIN LEVEL 6-10 Last Admin: 01/30/18 16:12 Dose: 10 mg Pantoprazole Sodium (Protonix -) 40 mg PO DAILY [facility] Last Admin: 01/30/18 10:58 Dose: 40 mg Polyethylene Glycol (Miralax (For Daily Use) -) 17 gm PO DAILY [facility] Last Admin: 01/30/18 10:59 Dose: 17 gm Senna (Senna -) 2 tab PO HS PRN PRN Reason: CONSTIPATION Last Admin: 01/12/18 22:42 Dose: 2 tab Sodium Chloride ([place] Nasal [place] -) 2 spray NS BID PRN PRN Reason: NASAL CONGESTION Last Admin: 01/19/18 11:53 Dose: 2 spray Tamsulosin HCl (Flomax -) 0.8 mg PO DAILY@0830 [facility] Last Admin: 01/30/18 08:30 Dose: 0.8 mg - Objective Vital Signs: Vital Signs Temperature 98.3 F 01/30/18 14:40 Pulse Rate 66 01/30/18 14:40 Respiratory Rate 20 01/30/18 14:40 Blood Pressure 134/61 01/30/18 14:40 O2 Sat by Pulse Oximetry (%) 94 L 01/29/18 21:00 Constitutional: Yes: No Distress Eyes: Yes: WNL HENT: Yes: WNL Neck: Yes: WNL Cardiovascular: Yes: S1, S2 (split) Respiratory: Yes: Regular Gastrointestinal: Yes: Soft ...Rectal Exam: Yes: Deferred Genitourinary: Yes: Other. No: Anuria Musculoskeletal: Yes: Muscle Weakness Extremities: Yes: Cool Edema: No Peripheral Pulses WNL: Yes Neurological: Yes: Alert, Oriented, Weakness Psychiatric: Yes: Alert, Oriented Labs: CBC, BMP 01/30/18 07:08 01/30/18 07:08 INR, PTT INR 1.53 (0.83-1.09) H 01/30/18 07:08 Problem List - Problems (1) MRSA bacteremia Assessment/Plan: febrile episodes; initially leukocytotic. antipyretics (avoid non-aspirin NSAIDs). antibiotics per ID (on Zosyn, Vancomycin, Clotrimazole). Code(s): R78.81 - BACTEREMIA (2) UTI (urinary tract infection) Code(s): N39.0 - URINARY TRACT INFECTION, SITE NOT SPECIFIED (3) Anxiety Code(s): F41.9 - ANXIETY DISORDER, UNSPECIFIED (4) Atrial fibrillation Assessment/Plan: 90 mg bid Lovenox pending surgery (warfarin held). Code(s): I48.91 - UNSPECIFIED ATRIAL FIBRILLATION (5) Chronic lower back pain Assessment/Plan: spinal studies (xray) results noted; no metastases; no compression; mild lumbar spondylosis. Code(s): M54.5 - LOW BACK PAIN; G89.29 - OTHER CHRONIC PAIN (6) HTN (hypertension) Assessment/Plan: on lisinopril; on furosemide. Code(s): I10 - ESSENTIAL (PRIMARY) HYPERTENSION (7) Hematuria Code(s): R31.9 - HEMATURIA, UNSPECIFIED Qualifiers: Hematuria type: gross Qualified Code(s): R31.0 - Gross hematuria (8) Hyperlipidemia Assessment/Plan: Total cholesterol 118 mg/dL; on atorvastatin 20 mg daily. Code(s): E78.5 - HYPERLIPIDEMIA, UNSPECIFIED (9) Obesity Code(s): E66.9 - OBESITY, UNSPECIFIED (10) Urinary retention Assessment/Plan: Planned for surgery. Code(s): R33.9 - RETENTION OF URINE, UNSPECIFIED (11) ASHD (arteriosclerotic heart disease) Assessment/Plan: s/p CABG s/p coronary and LE angioplasty/stents. On clopidogrel (held pending surgery); statin; nitrate (Imdur). From a cardiac perspective, there are no absolute contraindications for Mr. Waddell to undergo surgery. Code(s): I25.10 - ATHSCL HEART DISEASE OF [place] CORONARY ARTERY W/O ANG PCTRS (12) Anemia Code(s): D64.9 - ANEMIA, UNSPECIFIED (13) Prostate cancer Code(s): C61 - MALIGNANT NEOPLASM OF PROSTATE (14) Chronic diastolic (congestive) heart failure Code(s): I50.32 - CHRONIC DIASTOLIC (CONGESTIVE) HEART FAILURE
[2018-01-30] MEDS: diazePAM 5 MG TABLET PO PRN (19:31)
[2018-01-30] MEDS: ATORVASTATIN CA 20 MG TABLET (FP) PO SCH (21:07)
[2018-01-30] MEDS: SENNOSIDES 8.6MG TABLET (FP) PO PRN (21:07)
[2018-01-30] MEDS: MELATONIN 5 MG TABLETS PO PRN (21:07)
[2018-01-31] MEDS: ACETAMINOPHEN 325 MG TABLET (FP) PO PRN ×2 (00:05→18:47)
[2018-01-31] MEDS: oxyCODONE HCL 5 MG TABLET PO PRN ×3 (06:23→22:29)
[2018-01-31 08:28] LABS: BASO % 0.7 % (0-2.0); EOS % 2.8 % (0-4.5); HEMATOCRIT 26.1 % (35.4-49); HEMOGLOBIN 8.5 GM/dL (11.7-16.9); LYMPH % 7.4 % (8-40); MCH 29.6 pg (25.7-33.7); MCHC 32.7 g/dl (32.0-35.9); MEAN CELL VOLUME 90.5 fl (80-96); MEAN PLT VOLUME 7.4 fl (7.5-11.1); MONO % 16.3 % (3.8-10.2); NEUT % 72.8 % (42.8-82.8); PLATELET COUNT 360 K/MM3 (134-434); RBC 2.88 M/mm3 (4.00-5.60); RDW 18.7 % (11.9-15.9)
[2018-01-31 09:02] LABS: ALBUMIN 2.6 g/dl (3.4-5.0); ALK PHOS 220 U/L (45-117); ANION GAP 9 MMOL/L (8-16); BILIRUBIN,TOTAL 0.4 mg/dL (0.2-1); BLOOD UREA NITROGEN 29 mg/dL (7-18); CALCIUM 9.2 mg/dL (8.5-10.1); CHLORIDE 104 mmol/L (98-107); CO2 26 mmol/L (21-32); CREATININE 1.4 mg/dL (0.55-1.3); GLUCOSE,RANDOM 100 mg/dL (74-106); POTASSIUM 4.6 mmol/L (3.5-5.1); SGOT/AST 13 U/L (15-37); SGPT/ALT 20 U/L (13-61); SODIUM 139 mmol/L (136-145)
[2018-01-31] MEDS ORDERED: PT OWN MED DRAWER 7, Y5N ONE ×2 (09:40→21:18)
[2018-01-31] MEDS: FOLIC ACID 1 MG TABLET (FP) PO SCH (09:50)
[2018-01-31] MEDS: FUROSEMIDE 20 MG TABLET (FP) PO SCH (09:50)
[2018-01-31] MEDS: CYCLOBENZAPRINE HCL 10 MG TABLET (FP) PO SCH (09:50)
[2018-01-31] MEDS: FERROUS SO4 325 MG TABLET (FP) PO SCH (09:50)
[2018-01-31] MEDS: TAMSULOSIN HCL 0.4 MG CAP PO SCH (09:50)
[2018-01-31] MEDS: ISOSORBIDE MONONITRATE 30 MG TAB.SR.24H (FP) PO SCH (09:50)
[2018-01-31] MEDS: POLYETHYLENE GLYCOL 3350 119 GM BTL PO SCH (09:51)
[2018-01-31] MEDS: PANTOPRAZOLE 40 MG TABLET (FP) PO SCH (09:51)
[2018-01-31] MEDS: CLOTRIMAZOLE 1% 10 ML TOPICAL SOLUTION TP SCH ×2 (09:52→21:21)
[2018-01-31] MEDS: ENOXAPARIN NA (PORCINE) 100 MG/1 ML DISP.SYRIN SQ SCH ×2 (09:52→21:22)
--- NOTE | 2018-01-31 12:28 | PN ---
Progress Note (short form) - Note Progress Note: Pt seen/ examined comfortable afebrile urine clean in bishop Vital Signs Temp 98.3 F 01/31/18 09:28 Pulse 89 01/31/18 09:28 Resp 20 01/31/18 09:28 BP 127/70 01/31/18 09:28 Pulse Ox 94 L 01/30/18 09:00 Intake & Output 01/30/18 01/31/18 01/31/18 23:59 11:59 23:59 Intake Total 650 265 Output Total 1300 Balance -650 265 Intake: IVPB 50 Oral 600 265 Output: Urine 1300 Bishop 1300 Other: Voiding Method Indwelling Catheter Toilet Bowel Movement Yes No # Bowel Movements 1 Active Medications Acetaminophen (Tylenol -) 650 mg PO Q6HPO PRN PRN Reason: FEVER Last Admin: 01/31/18 00:05 Dose: 650 mg Atorvastatin Calcium (Lipitor -) 20 mg PO HS [facility] Last Admin: 01/30/18 21:07 Dose: 20 mg Benzocaine (Americaine Ointment -) 1 applic [place] PRN PRN PRN Reason: hemorrhoids. Last Admin: 01/22/18 16:55 Dose: 1 applic Clotrimazole (Clotrimazole) 1 applic TP BID [facility] Last Admin: 01/31/18 09:52 Dose: Not Given Cyclobenzaprine HCl (Flexeril -) 5 mg PO DAILY [facility] Last Admin: 01/31/18 09:50 Dose: 5 mg Diazepam (Valium -) 5 mg PO Q8H PRN PRN Reason: WITHDRAWAL(CONT SUBST) Last Admin: 01/30/18 19:31 Dose: 5 mg Docusate Sodium (Colace -) 100 mg PO Q8H PRN PRN Reason: CONSTIPATION Last Admin: 01/26/18 14:34 Dose: 100 mg Enoxaparin Sodium (Lovenox -) 90 mg SQ BID [facility] Last Admin: 01/31/18 09:52 Dose: 90 mg Ferrous Sulfate (Feosol -) 325 mg PO DAILY [facility] Last Admin: 01/31/18 09:50 Dose: 325 mg Folic Acid (Folic Acid -) 1 mg PO DAILY [facility] Last Admin: 01/31/18 09:50 Dose: 1 mg Furosemide (Lasix -) 20 mg PO DAILY [facility] Last Admin: 01/31/18 09:50 Dose: 20 mg Isosorbide Mononitrate (Imdur -) 30 mg PO DAILY [facility] Last Admin: 01/31/18 09:50 Dose: 30 mg Lidocaine HCl (Xylocaine 2% Jelly) 1 applic TP BID PRN PRN Reason: MODERATE PAIN Last Admin: 01/29/18 10:29 Dose: 1 applic Melatonin (Melatonin) 10 mg PO HS PRN PRN Reason: INSOMNIA Last Admin: 01/30/18 21:07 Dose: 10 mg Pt's Own Med ( Preparation H Ointment) 1 each NR Q12H PRN PRN Reason: HEMORRHOIDS Last Admin: 01/29/18 01:13 Dose: 1 each Ondansetron HCl (Zofran Injection) 8 mg IVPB Q6H PRN PRN Reason: NAUSEA Last Admin: 01/23/18 17:40 Dose: 8 mg Oxycodone HCl (Roxicodone -) 10 mg PO Q4H PRN PRN Reason: PAIN LEVEL 6-10 Last Admin: 01/31/18 06:23 Dose: 10 mg Pantoprazole Sodium (Protonix -) 40 mg PO DAILY [facility] Last Admin: 01/31/18 09:51 Dose: 40 mg Polyethylene Glycol (Miralax (For Daily Use) -) 17 gm PO DAILY [facility] Last Admin: 01/31/18 09:51 Dose: 17 gm Senna (Senna -) 2 tab PO HS PRN PRN Reason: CONSTIPATION Last Admin: 01/30/18 21:07 Dose: 2 tab Sodium Chloride ([place] Nasal [place] -) 2 spray NS BID PRN PRN Reason: NASAL CONGESTION Last Admin: 01/19/18 11:53 Dose: 2 spray Tamsulosin HCl (Flomax -) 0.8 mg PO DAILY@0830 [facility] Last Admin: 01/31/18 09:50 Dose: 0.8 mg CBC, BMP 01/31/18 07:30 01/31/18 07:30 Physical Exam S 1 s2 irregular Lungs decreased Abd- soft, NT No edema neuro- alert / awake bishop + PLAN MRSA - off CBI continue present care bishop care abx prep H lidocaine for penile pain daily oob - chair . monitor labs on lovenox for possible or on friday -- urology to follow-- will follow Problem List - Problems (1) Anemia Code(s): D64.9 - ANEMIA, UNSPECIFIED (2) MRSA bacteremia Code(s): R78.81 - BACTEREMIA (3) Atrial fibrillation Code(s): I48.91 - UNSPECIFIED ATRIAL FIBRILLATION (4) HTN (hypertension) Code(s): I10 - ESSENTIAL (PRIMARY) HYPERTENSION
--- NOTE | 2018-01-31 15:37 | PN ---
Progress Note, Physician History of Present Illness: Pt remains afebrile, without new complaints. Events noted, labs reviewed. - Current Medication List Current Medications: Active Medications Acetaminophen (Tylenol -) 650 mg PO Q6HPO PRN PRN Reason: FEVER Last Admin: 01/31/18 00:05 Dose: 650 mg Atorvastatin Calcium (Lipitor -) 20 mg PO HS [facility] Last Admin: 01/30/18 21:07 Dose: 20 mg Benzocaine (Americaine Ointment -) 1 applic [place] PRN PRN PRN Reason: hemorrhoids. Last Admin: 01/22/18 16:55 Dose: 1 applic Clotrimazole (Clotrimazole) 1 applic TP BID [facility] Last Admin: 01/31/18 09:52 Dose: Not Given Cyclobenzaprine HCl (Flexeril -) 5 mg PO DAILY [facility] Last Admin: 01/31/18 09:50 Dose: 5 mg Diazepam (Valium -) 5 mg PO Q8H PRN PRN Reason: WITHDRAWAL(CONT SUBST) Last Admin: 01/30/18 19:31 Dose: 5 mg Docusate Sodium (Colace -) 100 mg PO Q8H PRN PRN Reason: CONSTIPATION Last Admin: 01/26/18 14:34 Dose: 100 mg Enoxaparin Sodium (Lovenox -) 90 mg SQ BID [facility] Last Admin: 01/31/18 09:52 Dose: 90 mg Ferrous Sulfate (Feosol -) 325 mg PO DAILY [facility] Last Admin: 01/31/18 09:50 Dose: 325 mg Folic Acid (Folic Acid -) 1 mg PO DAILY [facility] Last Admin: 01/31/18 09:50 Dose: 1 mg Furosemide (Lasix -) 20 mg PO DAILY [facility] Last Admin: 01/31/18 09:50 Dose: 20 mg Isosorbide Mononitrate (Imdur -) 30 mg PO DAILY [facility] Last Admin: 01/31/18 09:50 Dose: 30 mg Lidocaine HCl (Xylocaine 2% Jelly) 1 applic TP BID PRN PRN Reason: MODERATE PAIN Last Admin: 01/29/18 10:29 Dose: 1 applic Melatonin (Melatonin) 10 mg PO HS PRN PRN Reason: INSOMNIA Last Admin: 01/30/18 21:07 Dose: 10 mg Pt's Own Med ( Preparation H Ointment) 1 each NR Q12H PRN PRN Reason: HEMORRHOIDS Last Admin: 01/29/18 01:13 Dose: 1 each Ondansetron HCl (Zofran Injection) 8 mg IVPB Q6H PRN PRN Reason: NAUSEA Last Admin: 01/23/18 17:40 Dose: 8 mg Oxycodone HCl (Roxicodone -) 10 mg PO Q4H PRN PRN Reason: PAIN LEVEL 6-10 Last Admin: 01/31/18 06:23 Dose: 10 mg Pantoprazole Sodium (Protonix -) 40 mg PO DAILY [facility] Last Admin: 01/31/18 09:51 Dose: 40 mg Polyethylene Glycol (Miralax (For Daily Use) -) 17 gm PO DAILY [facility] Last Admin: 01/31/18 09:51 Dose: 17 gm Senna (Senna -) 2 tab PO HS PRN PRN Reason: CONSTIPATION Last Admin: 01/30/18 21:07 Dose: 2 tab Sodium Chloride ([place] Nasal [place] -) 2 spray NS BID PRN PRN Reason: NASAL CONGESTION Last Admin: 01/19/18 11:53 Dose: 2 spray Tamsulosin HCl (Flomax -) 0.8 mg PO DAILY@0830 [facility] Last Admin: 01/31/18 09:50 Dose: 0.8 mg - Objective Vital Signs: Vital Signs Temperature 99.3 F 01/31/18 14:14 Pulse Rate 60 01/31/18 14:14 Respiratory Rate 22 H 01/31/18 14:14 Blood Pressure 101/55 L 01/31/18 14:14 O2 Sat by Pulse Oximetry (%) 97 01/31/18 09:00 Labs: CBC, BMP 01/31/18 07:30 01/31/18 07:30 INR, PTT INR 1.53 (0.83-1.09) H 01/30/18 07:08 Problem List - Problems (1) ASHD (arteriosclerotic heart disease) Code(s): I25.10 - ATHSCL HEART DISEASE OF [place] CORONARY ARTERY W/O ANG PCTRS (2) MRSA bacteremia Code(s): R78.81 - BACTEREMIA (3) UTI (urinary tract infection) Code(s): N39.0 - URINARY TRACT INFECTION, SITE NOT SPECIFIED (4) Atrial fibrillation Code(s): I48.91 - UNSPECIFIED ATRIAL FIBRILLATION (5) HTN (hypertension) Code(s): I10 - ESSENTIAL (PRIMARY) HYPERTENSION (6) Hematuria Code(s): R31.9 - HEMATURIA, UNSPECIFIED Qualifiers: Hematuria type: gross Qualified Code(s): R31.0 - Gross hematuria (7) Urinary retention Code(s): R33.9 - RETENTION OF URINE, UNSPECIFIED Assessment/Plan 77 year old male with PMH of HTN, HLD, CAD (s/p stents), prostate CA, urethral stricture (catheter in place) admitted because of weakness and inability to stand and with swelling of b/l Knees, fever, and leukocytosis MRSA Bacteremia Polymicrobial UTI/bishop catheter Knee Swelling s/p aspiration -- s/p course of antibiotics -- cont. monitor urology followup
[2018-01-31] MEDS: LIDOCAINE HCL 2% JELLY (5 ML/TUBE) TP PRN (21:21)
[2018-01-31] MEDS: ATORVASTATIN CA 20 MG TABLET (FP) PO SCH (21:22)
[2018-01-31] MEDS: diazePAM 5 MG TABLET PO PRN (21:22)
[2018-02-01] MEDS: oxyCODONE HCL 5 MG TABLET PO PRN ×3 (03:45→17:42)
[2018-02-01] MEDS: PANTOPRAZOLE 40 MG TABLET (FP) PO SCH (09:58)
[2018-02-01] MEDS: CLOTRIMAZOLE 1% 10 ML TOPICAL SOLUTION TP SCH ×2 (09:58→21:20)
[2018-02-01] MEDS: CYCLOBENZAPRINE HCL 10 MG TABLET (FP) PO SCH (09:59)
[2018-02-01] MEDS: FUROSEMIDE 20 MG TABLET (FP) PO SCH (10:02)
[2018-02-01] MEDS: diazePAM 5 MG TABLET PO PRN ×2 (10:02→21:20)
[2018-02-01] MEDS: ENOXAPARIN NA (PORCINE) 100 MG/1 ML DISP.SYRIN SQ SCH ×2 (10:02→21:20)
[2018-02-01] MEDS: ISOSORBIDE MONONITRATE 30 MG TAB.SR.24H (FP) PO SCH (10:02)
[2018-02-01] MEDS: TAMSULOSIN HCL 0.4 MG CAP PO SCH (10:03)
[2018-02-01] MEDS: FERROUS SO4 325 MG TABLET (FP) PO SCH (10:03)
[2018-02-01] MEDS: POLYETHYLENE GLYCOL 3350 119 GM BTL PO SCH (10:03)
[2018-02-01] MEDS: FOLIC ACID 1 MG TABLET (FP) PO SCH (10:06)
[2018-02-01] MEDS: PREPARATION H NR PRN (10:06)
[2018-02-01] MEDS: LIDOCAINE HCL 2% JELLY (5 ML/TUBE) TP PRN (10:06)
--- NOTE | 2018-02-01 10:55 | EKG ---
Test Reason : Blood Pressure : / mmHG Vent. Rate : 090 BPM Atrial Rate : 090 BPM P-R Int : 202 ms QRS Dur : 120 ms QT Int : 368 ms P-R-T Axes : 008 025 129 degrees QTc Int : 450 ms SINUS RHYTHM WITH OCCASIONAL PREMATURE VENTRICULAR COMPLEXES LOW VOLTAGE QRS INCOMPLETE LEFT BUNDLE BRANCH BLOCK NONSPECIFIC ST ABNORMALITY ABNORMAL ECG Confirmed by CARLOS LIN MD ([id number]) on 02/01/2018 10:55:07 AM Referred By: Sarah GRIER Confirmed By:CARLOS LIN MD
[2018-02-01] MEDS: ACETAMINOPHEN 325 MG TABLET (FP) PO PRN ×2 (11:48→17:42)
--- NOTE | 2018-02-01 12:55 | PN ---
Progress Note (short form) - Note Progress Note: pt awake/ comfortable denies pain. comfortable all f/u noted afebrile off abx Vital Signs Temp 98.7 F 02/01/18 10:00 Pulse 94 H 02/01/18 10:00 Resp 18 02/01/18 10:00 BP 132/77 02/01/18 10:00 Pulse Ox 97 01/31/18 21:00 Intake & Output 01/31/18 02/01/18 02/01/18 23:59 11:59 23:59 Intake Total 615 350 Output Total 1100 600 Balance -485 -250 Intake: Oral 615 350 Output: Urine 1100 600 Bishop 1100 600 Other: Voiding Method Indwelling Catheter Toilet # Unmeasured Voids Bishop 1 Bowel Movement Yes Yes # Bowel Movements 1 Active Medications Acetaminophen (Tylenol -) 650 mg PO Q6HPO PRN PRN Reason: FEVER Last Admin: 02/01/18 11:48 Dose: 650 mg Atorvastatin Calcium (Lipitor -) 20 mg PO HS [facility] Last Admin: 01/31/18 21:22 Dose: 20 mg Benzocaine (Americaine Ointment -) 1 applic [place] PRN PRN PRN Reason: hemorrhoids. Last Admin: 01/22/18 16:55 Dose: 1 applic Clotrimazole (Clotrimazole) 1 applic TP BID [facility] Last Admin: 02/01/18 09:58 Dose: 1 applic Cyclobenzaprine HCl (Flexeril -) 5 mg PO DAILY [facility] Last Admin: 02/01/18 09:59 Dose: 5 mg Diazepam (Valium -) 5 mg PO Q8H PRN PRN Reason: WITHDRAWAL(CONT SUBST) Last Admin: 02/01/18 10:02 Dose: 5 mg Docusate Sodium (Colace -) 100 mg PO Q8H PRN PRN Reason: CONSTIPATION Last Admin: 01/26/18 14:34 Dose: 100 mg Enoxaparin Sodium (Lovenox -) 90 mg SQ BID [facility] Last Admin: 02/01/18 10:02 Dose: 90 mg Ferrous Sulfate (Feosol -) 325 mg PO DAILY [facility] Last Admin: 02/01/18 10:03 Dose: 325 mg Folic Acid (Folic Acid -) 1 mg PO DAILY [facility] Last Admin: 02/01/18 10:06 Dose: 1 mg Furosemide (Lasix -) 20 mg PO DAILY [facility] Last Admin: 02/01/18 10:02 Dose: 20 mg Isosorbide Mononitrate (Imdur -) 30 mg PO DAILY [facility] Last Admin: 02/01/18 10:02 Dose: 30 mg Lidocaine HCl (Xylocaine 2% Jelly) 1 applic TP BID PRN PRN Reason: MODERATE PAIN Last Admin: 02/01/18 10:06 Dose: 1 applic Melatonin (Melatonin) 10 mg PO HS PRN PRN Reason: INSOMNIA Last Admin: 01/30/18 21:07 Dose: 10 mg Pt's Own Med ( Preparation H Ointment) 1 each NR Q12H PRN PRN Reason: HEMORRHOIDS Last Admin: 02/01/18 10:06 Dose: 1 each Ondansetron HCl (Zofran Injection) 8 mg IVPB Q6H PRN PRN Reason: NAUSEA Last Admin: 01/23/18 17:40 Dose: 8 mg Oxycodone HCl (Roxicodone -) 10 mg PO Q4H PRN PRN Reason: PAIN LEVEL 6-10 Last Admin: 02/01/18 11:47 Dose: 10 mg Pantoprazole Sodium (Protonix -) 40 mg PO DAILY [facility] Last Admin: 02/01/18 09:58 Dose: 40 mg Polyethylene Glycol (Miralax (For Daily Use) -) 17 gm PO DAILY [facility] Last Admin: 02/01/18 10:03 Dose: 17 gm Senna (Senna -) 2 tab PO HS PRN PRN Reason: CONSTIPATION Last Admin: 01/30/18 21:07 Dose: 2 tab Sodium Chloride ([place] Nasal [place] -) 2 spray NS BID PRN PRN Reason: NASAL CONGESTION Last Admin: 01/19/18 11:53 Dose: 2 spray Tamsulosin HCl (Flomax -) 0.8 mg PO DAILY@0830 [facility] Last Admin: 02/01/18 10:03 Dose: 0.8 mg CBC, BMP 01/31/18 07:30 01/31/18 07:30 Physical Exam S 1 s2 irregular Lungs decreased Abd- soft, NT No edema neuro- alert / awake bishop + PLAN MRSA Bactremia s/p abx repeat cultures -ve - off CBI continue present care bishop care abx prep H lidocaine for penile pain daily oob - chair . monitor labs on lovenox for possible or on Friday -- urology to follow-- will follow Problem List - Problems (1) Anemia Code(s): D64.9 - ANEMIA, UNSPECIFIED (2) MRSA bacteremia Code(s): R78.81 - BACTEREMIA (3) Atrial fibrillation Code(s): I48.91 - UNSPECIFIED ATRIAL FIBRILLATION (4) HTN (hypertension) Code(s): I10 - ESSENTIAL (PRIMARY) HYPERTENSION
[2018-02-01] MEDS: HYDROCORTISONE 2.5% TOPICAL CREAM 30 GM TUBE PR SCH (15:56)
--- NOTE | 2018-02-01 15:56 | PN ---
Progress Note, Physician History of Present Illness: Pt alert. Relatively comfortable. Currently afebrile. - Current Medication List Current Medications: Active Medications Acetaminophen (Tylenol -) 650 mg PO Q6HPO PRN PRN Reason: FEVER Last Admin: 02/01/18 11:48 Dose: 650 mg Atorvastatin Calcium (Lipitor -) 20 mg PO HS [facility] Last Admin: 01/31/18 21:22 Dose: 20 mg Benzocaine (Americaine Ointment -) 1 applic [place] PRN PRN PRN Reason: hemorrhoids. Last Admin: 01/22/18 16:55 Dose: 1 applic Clotrimazole (Clotrimazole) 1 applic TP BID [facility] Last Admin: 02/01/18 09:58 Dose: 1 applic Cyclobenzaprine HCl (Flexeril -) 5 mg PO DAILY [facility] Last Admin: 02/01/18 09:59 Dose: 5 mg Diazepam (Valium -) 5 mg PO Q8H PRN PRN Reason: WITHDRAWAL(CONT SUBST) Last Admin: 02/01/18 10:02 Dose: 5 mg Docusate Sodium (Colace -) 100 mg PO Q8H PRN PRN Reason: CONSTIPATION Last Admin: 01/26/18 14:34 Dose: 100 mg Enoxaparin Sodium (Lovenox -) 90 mg SQ BID [facility] Last Admin: 02/01/18 10:02 Dose: 90 mg Ferrous Sulfate (Feosol -) 325 mg PO DAILY [facility] Last Admin: 02/01/18 10:03 Dose: 325 mg Folic Acid (Folic Acid -) 1 mg PO DAILY [facility] Last Admin: 02/01/18 10:06 Dose: 1 mg Furosemide (Lasix -) 20 mg PO DAILY [facility] Last Admin: 02/01/18 10:02 Dose: 20 mg Hydrocortisone (Anusol 2.5% Hc Cream -) 1 applic [place] DAILY [facility] Isosorbide Mononitrate (Imdur -) 30 mg PO DAILY [facility] Last Admin: 02/01/18 10:02 Dose: 30 mg Lidocaine HCl (Xylocaine 2% Jelly) 1 applic TP BID PRN PRN Reason: MODERATE PAIN Last Admin: 02/01/18 10:06 Dose: 1 applic Melatonin (Melatonin) 10 mg PO HS PRN PRN Reason: INSOMNIA Last Admin: 01/30/18 21:07 Dose: 10 mg Pt's Own Med ( Preparation H Ointment) 1 each NR Q12H PRN PRN Reason: HEMORRHOIDS Last Admin: 02/01/18 10:06 Dose: 1 each Ondansetron HCl (Zofran Injection) 8 mg IVPB Q6H PRN PRN Reason: NAUSEA Last Admin: 01/23/18 17:40 Dose: 8 mg Oxycodone HCl (Roxicodone -) 5 mg PO Q6H PRN PRN Reason: PAIN LEVEL 6-10 Pantoprazole Sodium (Protonix -) 40 mg PO DAILY [facility] Last Admin: 02/01/18 09:58 Dose: 40 mg Polyethylene Glycol (Miralax (For Daily Use) -) 17 gm PO DAILY [facility] Last Admin: 02/01/18 10:03 Dose: 17 gm Senna (Senna -) 2 tab PO HS PRN PRN Reason: CONSTIPATION Last Admin: 01/30/18 21:07 Dose: 2 tab Sodium Chloride ([place] Nasal [place] -) 2 spray NS BID PRN PRN Reason: NASAL CONGESTION Last Admin: 01/19/18 11:53 Dose: 2 spray Tamsulosin HCl (Flomax -) 0.8 mg PO DAILY@0830 [facility] Last Admin: 02/01/18 10:03 Dose: 0.8 mg - Objective Vital Signs: Vital Signs Temperature 99.0 F 02/01/18 14:49 Pulse Rate 60 02/01/18 14:49 Respiratory Rate 20 02/01/18 14:49 Blood Pressure 123/67 02/01/18 14:49 O2 Sat by Pulse Oximetry (%) 99 02/01/18 10:00 Constitutional: Yes: No Distress, Calm Respiratory: Yes: Regular Gastrointestinal: Yes: Normal Bowel Sounds, Soft Genitourinary: Yes: Bishop Present (no hematuria) Musculoskeletal: Yes: Joint Swelling (b/l knee, no erythema/warmth) Integumentary: Yes: WNL Neurological: Yes: Alert, Oriented Labs: CBC, BMP 01/31/18 07:30 01/31/18 07:30 INR, PTT INR 1.53 (0.83-1.09) H 01/30/18 07:08 Problem List - Problems (1) ASHD (arteriosclerotic heart disease) Code(s): I25.10 - ATHSCL HEART DISEASE OF [place] CORONARY ARTERY W/O ANG PCTRS (2) MRSA bacteremia Code(s): R78.81 - BACTEREMIA (3) UTI (urinary tract infection) Code(s): N39.0 - URINARY TRACT INFECTION, SITE NOT SPECIFIED (4) Atrial fibrillation Code(s): I48.91 - UNSPECIFIED ATRIAL FIBRILLATION (5) HTN (hypertension) Code(s): I10 - ESSENTIAL (PRIMARY) HYPERTENSION (6) Hematuria Code(s): R31.9 - HEMATURIA, UNSPECIFIED Qualifiers: Hematuria type: gross Qualified Code(s): R31.0 - Gross hematuria (7) Urinary retention Code(s): R33.9 - RETENTION OF URINE, UNSPECIFIED Assessment/Plan 77 year old male with PMH of HTN, HLD, CAD (s/p stents), prostate CA, urethral stricture (catheter in place) admitted because of weakness and inability to stand and with swelling of b/l Knees, fever, and leukocytosis MRSA Bacteremia - latest blood cultures negative Polymicrobial UTI/bishop catheter in place Knee Swelling s/p aspiration -- completed course of antibiotics -- urology following, possible OR on Tues continue monitor
[2018-02-01] MEDS: ATORVASTATIN CA 20 MG TABLET (FP) PO SCH (21:20)
[2018-02-01] MEDS ORDERED: PT OWN MED DRAWER 7, Y5N ONE (23:57)
[2018-02-02] MEDS: oxyCODONE HCL 5 MG TABLET PO PRN ×3 (00:16→14:38)
[2018-02-02] MEDS: MELATONIN 5 MG TABLETS PO PRN (00:17)
[2018-02-02] MEDS: PREPARATION H NR PRN (00:17)
[2018-02-02 07:37] LABS: BASO % 0.6 % (0-2.0); EOS % 3.7 % (0-4.5); HEMATOCRIT 25.6 % (35.4-49); HEMOGLOBIN 8.3 GM/dL (11.7-16.9); LYMPH % 11.5 % (8-40); MCHC 32.2 g/dl (32.0-35.9); MEAN PLT VOLUME 7.6 fl (7.5-11.1); MONO % 14.3 % (3.8-10.2); NEUT % 69.9 % (42.8-82.8); PLATELET COUNT 362 K/MM3 (134-434); RBC 2.84 M/mm3 (4.00-5.60); RDW 18.5 % (11.9-15.9); WHITE BLOOD COUNT 7.4 K/mm3 (4.0-10.0)
[2018-02-02 07:51] LABS: ALBUMIN 2.4 g/dl (3.4-5.0); ALK PHOS 206 U/L (45-117); ANION GAP 7 MMOL/L (8-16); BILIRUBIN,TOTAL 0.2 mg/dL (0.2-1); BLOOD UREA NITROGEN 24 mg/dL (7-18); CALCIUM 8.5 mg/dL (8.5-10.1); CHLORIDE 105 mmol/L (98-107); CO2 25 mmol/L (21-32); CREATININE 1.3 mg/dL (0.55-1.3); GLUCOSE,RANDOM 136 mg/dL (74-106); POTASSIUM 4.6 mmol/L (3.5-5.1); SGOT/AST 14 U/L (15-37); SGPT/ALT 18 U/L (13-61); SODIUM 138 mmol/L (136-145); TOT PROT 5.9 g/dl (6.4-8.2)
[2018-02-02] MEDS ORDERED: PT OWN MED DRAWER 7, Y5N ONE ×2 (09:31→20:12)
[2018-02-02] MEDS: TAMSULOSIN HCL 0.4 MG CAP PO SCH (09:36)
[2018-02-02] MEDS: FERROUS SO4 325 MG TABLET (FP) PO SCH (09:36)
[2018-02-02] MEDS: POLYETHYLENE GLYCOL 3350 119 GM BTL PO SCH (09:36)
[2018-02-02] MEDS: ENOXAPARIN NA (PORCINE) 100 MG/1 ML DISP.SYRIN SQ SCH ×2 (09:37→22:13)
[2018-02-02] MEDS: CYCLOBENZAPRINE HCL 10 MG TABLET (FP) PO SCH (09:38)
[2018-02-02] MEDS: FOLIC ACID 1 MG TABLET (FP) PO SCH (09:38)
[2018-02-02] MEDS: ISOSORBIDE MONONITRATE 30 MG TAB.SR.24H (FP) PO SCH (09:38)
[2018-02-02] MEDS: PANTOPRAZOLE 40 MG TABLET (FP) PO SCH (09:39)
[2018-02-02] MEDS: FUROSEMIDE 20 MG TABLET (FP) PO SCH (09:39)
[2018-02-02] MEDS: HYDROCORTISONE 2.5% TOPICAL CREAM 30 GM TUBE PR SCH (09:44)
--- NOTE | 2018-02-02 09:45 | PN ---
Progress Note, Physician History of Present Illness: he patient is a 77 year old male with a significant past medical history of HTN , HLD, CAD (s/p stents), prostate CA, urethral stricture (catheter in place) who presents to the ER with difficulty ranging his legs today. The patient states he noticed significant swelling, redness, and warmth to the bilateral knees. Patient reports he needed assistance to ambulate today, which is new for him. Patient states he was discharged from rehab four days ago and was ambulating appropriately until today. Patient has not eaten today as he is experiencing mild nausea. Patient denies taking any of his medications today. 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 Patient has his catheter in place and draining urine appropriately. Patient has a fever of 100.1 here in the ER. The patient denies chest pain, shortness of breath, headache, and dizziness. Denies chills, vomit, diarrhea, and constipation. Allergies: strawberry, pepper, iohexol Past surgical history: stents Social history: No reported alcohol, drug, or cigarette use. 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 Blanton SANTIAGO of left PDA July 07, 2014 Dr. Blanton dizziness Hyperlipidemia Hypertension Negative MIBI stress test 2013 [place] [facility] NSVT Pauses PCI SANTIAGO of p LCx March 30, 2015 Dr. Blanton PCI LCx 08/17/12 [facility] PCI LCx 07/07/14 Dr. Blanton ORDER ENTRY TECHNICIAN/stent right SFA 526/16 DR BLANTON Right SFA 100 occlusion July 07, 2014 Dr. Blanton s/p ORDER ENTRY TECHNICIAN drug elluting balloon L SFA 2015 s/p ORDER ENTRY TECHNICIAN left SFA 09/25/17 for left foot ulcer s/p urethral stricture after cystoscopy and urethrotomy the patient went into septic shock and was treated with antibiotics and was stabilized. October 2017 - Current Medication List Current Medications: Active Medications Acetaminophen (Tylenol -) 650 mg PO Q6HPO PRN PRN Reason: FEVER Last Admin: 02/01/18 17:42 Dose: 650 mg Atorvastatin Calcium (Lipitor -) 20 mg PO HS JORJE Last Admin: 02/01/18 21:20 Dose: 20 mg Benzocaine (Americaine Ointment -) 1 applic [place] PRN PRN PRN Reason: hemorrhoids. Last Admin: 01/22/18 16:55 Dose: 1 applic Clotrimazole (Clotrimazole) 1 applic TP BID [facility] Last Admin: 02/01/18 21:20 Dose: Not Given Cyclobenzaprine HCl (Flexeril -) 5 mg PO DAILY [facility] Last Admin: 02/01/18 09:59 Dose: 5 mg Diazepam (Valium -) 5 mg PO Q8H PRN PRN Reason: WITHDRAWAL(CONT SUBST) Last Admin: 02/01/18 21:20 Dose: 5 mg Docusate Sodium (Colace -) 100 mg PO Q8H PRN PRN Reason: CONSTIPATION Last Admin: 01/26/18 14:34 Dose: 100 mg Enoxaparin Sodium (Lovenox -) 90 mg SQ BID [facility] Last Admin: 02/01/18 21:20 Dose: 90 mg Ferrous Sulfate (Feosol -) 325 mg PO DAILY [facility] Last Admin: 02/01/18 10:03 Dose: 325 mg Folic Acid (Folic Acid -) 1 mg PO DAILY [facility] Last Admin: 02/01/18 10:06 Dose: 1 mg Furosemide (Lasix -) 20 mg PO DAILY [facility] Last Admin: 02/01/18 10:02 Dose: 20 mg Hydrocortisone (Anusol 2.5% Hc Cream -) 1 applic [place] DAILY [facility] Last Admin: 02/01/18 15:56 Dose: Not Given Isosorbide Mononitrate (Imdur -) 30 mg PO DAILY [facility] Last Admin: 02/01/18 10:02 Dose: 30 mg Lidocaine HCl (Xylocaine 2% Jelly) 1 applic TP BID PRN PRN Reason: MODERATE PAIN Last Admin: 02/01/18 10:06 Dose: 1 applic Melatonin (Melatonin) 10 mg PO HS PRN PRN Reason: INSOMNIA Last Admin: 02/02/18 00:17 Dose: 10 mg Pt's Own Med ( Preparation H Ointment) 1 each NR Q12H PRN PRN Reason: HEMORRHOIDS Last Admin: 02/02/18 00:17 Dose: 1 each Ondansetron HCl (Zofran Injection) 8 mg IVPB Q6H PRN PRN Reason: NAUSEA Last Admin: 01/23/18 17:40 Dose: 8 mg Oxycodone HCl (Roxicodone -) 5 mg PO Q6H PRN PRN Reason: PAIN LEVEL 6-10 Last Admin: 02/02/18 06:34 Dose: 5 mg Pantoprazole Sodium (Protonix -) 40 mg PO DAILY [facility] Last Admin: 02/01/18 09:58 Dose: 40 mg Polyethylene Glycol (Miralax (For Daily Use) -) 17 gm PO DAILY [facility] Last Admin: 02/01/18 10:03 Dose: 17 gm Senna (Senna -) 2 tab PO HS PRN PRN Reason: CONSTIPATION Last Admin: 01/30/18 21:07 Dose: 2 tab Sodium Chloride ([place] Nasal [place] -) 2 spray NS BID PRN PRN Reason: NASAL CONGESTION Last Admin: 01/19/18 11:53 Dose: 2 spray Tamsulosin HCl (Flomax -) 0.8 mg PO DAILY@0830 [facility] Last Admin: 02/01/18 10:03 Dose: 0.8 mg - Objective Vital Signs: Vital Signs Temperature 98.5 F 02/02/18 05:47 Pulse Rate 86 02/02/18 05:47 Respiratory Rate 20 02/02/18 05:47 Blood Pressure 106/77 02/02/18 05:47 O2 Sat by Pulse Oximetry (%) 99 02/01/18 21:00 Eyes: Yes: WNL, Conjunctiva Clear, EOM Intact HENT: Yes: WNL, Atraumatic, Normocephalic Neck: Yes: WNL, Supple, Trachea Midline Cardiovascular: Yes: WNL, Regular Rate and Rhythm Respiratory: Yes: WNL, Regular, CTA Bilaterally Gastrointestinal: Yes: WNL, Normal Bowel Sounds Genitourinary: Yes: WNL Musculoskeletal: Yes: WNL Extremities: Yes: WNL Edema: No Integumentary: Yes: WNL Neurological: Yes: WNL, Alert, Oriented ...Motor Strength: WNL Psychiatric: Yes: WNL Labs: CBC, BMP 02/02/18 07:00 02/02/18 07:00 INR, PTT INR 1.53 (0.83-1.09) H 01/30/18 07:08 Assessment/Plan - Problems (1) MRSA bacteremia Assessment/Plan: febrile episodes; initially leukocytotic. antipyretics (avoid non-aspirin NSAIDs). antibiotics per ID (on Zosyn, Vancomycin, Clotrimazole). Code(s): R78.81 - BACTEREMIA (2) UTI (urinary tract infection) Code(s): N39.0 - URINARY TRACT INFECTION, SITE NOT SPECIFIED (3) Anxiety Code(s): F41.9 - ANXIETY DISORDER, UNSPECIFIED (4) Atrial fibrillation Assessment/Plan: 90 mg bid Lovenox pending surgery (warfarin held). Code(s): I48.91 - UNSPECIFIED ATRIAL FIBRILLATION (5) Chronic lower back pain Assessment/Plan: spinal studies (xray) results noted; no metastases; no compression; mild lumbar spondylosis. Code(s): M54.5 - LOW BACK PAIN; G89.29 - OTHER CHRONIC PAIN (6) HTN (hypertension) Assessment/Plan: on lisinopril; on furosemide. Code(s): I10 - ESSENTIAL (PRIMARY) HYPERTENSION (7) Hematuria Code(s): R31.9 - HEMATURIA, UNSPECIFIED Qualifiers: Hematuria type: gross Qualified Code(s): R31.0 - Gross hematuria (8) Hyperlipidemia Assessment/Plan: Total cholesterol 118 mg/dL; on atorvastatin 20 mg daily. Code(s): E78.5 - HYPERLIPIDEMIA, UNSPECIFIED (9) Obesity Code(s): E66.9 - OBESITY, UNSPECIFIED (10) Urinary retention Assessment/Plan: Planned for surgery. Code(s): R33.9 - RETENTION OF URINE, UNSPECIFIED (11) ASHD (arteriosclerotic heart disease) Assessment/Plan: s/p CABG s/p coronary and LE angioplasty/stents. On clopidogrel (held pending surgery); statin; nitrate (Imdur). From a cardiac perspective, there are no absolute contraindications for Mr. Waddell to undergo surgery. Code(s): I25.10 - ATHSCL HEART DISEASE OF [place] CORONARY ARTERY W/O ANG PCTRS (12) Anemia Code(s): D64.9 - ANEMIA, UNSPECIFIED (13) Prostate cancer Code(s): C61 - MALIGNANT NEOPLASM OF PROSTATE (14) Chronic diastolic (congestive) heart failure Code(s): I50.32 - CHRONIC DIASTOLIC (CONGESTIVE) HEART FAILURE
[2018-02-02] MEDS: CLOTRIMAZOLE 1% 10 ML TOPICAL SOLUTION TP SCH ×2 (09:46→22:12)
[2018-02-02] MEDS ORDERED: LIDOCAINE HCL 2% JELLY (5 ML/TUBE) TP PRN (11:09)
--- NOTE | 2018-02-02 11:13 | PN ---
Progress Note (short form) - Note Progress Note: pt awake/ comfortable complains of penile discomfort Vital Signs Temp 98.5 F 02/02/18 05:47 Pulse 86 02/02/18 05:47 Resp 20 02/02/18 05:47 BP 106/77 02/02/18 05:47 Pulse Ox 99 02/01/18 21:00 Intake & Output 02/01/18 02/01/18 02/02/18 11:59 23:59 11:59 Intake Total 350 715 240 Output Total 600 700 Balance -250 15 240 Intake: Oral 350 715 240 Output: Urine 600 700 Bishop 600 700 Other: Voiding Method Indwelling Catheter Indwelling Catheter Bowel Movement Yes Yes Yes # Bowel Movements 1 2 Active Medications Acetaminophen (Tylenol -) 650 mg PO Q6HPO PRN PRN Reason: FEVER Last Admin: 02/01/18 17:42 Dose: 650 mg Atorvastatin Calcium (Lipitor -) 20 mg PO HS [facility] Last Admin: 02/01/18 21:20 Dose: 20 mg Benzocaine (Americaine Ointment -) 1 applic [place] PRN PRN PRN Reason: hemorrhoids. Last Admin: 01/22/18 16:55 Dose: 1 applic Clotrimazole (Clotrimazole) 1 applic TP BID [facility] Last Admin: 02/02/18 09:46 Dose: Not Given Cyclobenzaprine HCl (Flexeril -) 5 mg PO DAILY [facility] Last Admin: 02/02/18 09:38 Dose: 5 mg Diazepam (Valium -) 5 mg PO Q8H PRN PRN Reason: WITHDRAWAL(CONT SUBST) Last Admin: 02/01/18 21:20 Dose: 5 mg Docusate Sodium (Colace -) 100 mg PO Q8H PRN PRN Reason: CONSTIPATION Last Admin: 01/26/18 14:34 Dose: 100 mg Enoxaparin Sodium (Lovenox -) 90 mg SQ BID [facility] Last Admin: 02/02/18 09:37 Dose: 90 mg Ferrous Sulfate (Feosol -) 325 mg PO DAILY [facility] Last Admin: 02/02/18 09:36 Dose: 325 mg Folic Acid (Folic Acid -) 1 mg PO DAILY [facility] Last Admin: 02/02/18 09:38 Dose: 1 mg Furosemide (Lasix -) 20 mg PO DAILY [facility] Last Admin: 02/02/18 09:39 Dose: 20 mg Hydrocortisone (Anusol 2.5% Hc Cream -) 1 applic [place] DAILY [facility] Last Admin: 02/02/18 09:44 Dose: 1 applic Isosorbide Mononitrate (Imdur -) 30 mg PO DAILY [facility] Last Admin: 02/02/18 09:38 Dose: 30 mg Lidocaine HCl (Xylocaine 2% Jelly) 1 applic TP TID PRN PRN Reason: MODERATE PAIN Melatonin (Melatonin) 10 mg PO HS PRN PRN Reason: INSOMNIA Last Admin: 02/02/18 00:17 Dose: 10 mg Pt's Own Med ( Preparation H Ointment) 1 each NR Q12H PRN PRN Reason: HEMORRHOIDS Last Admin: 02/02/18 00:17 Dose: 1 each Ondansetron HCl (Zofran Injection) 8 mg IVPB Q6H PRN PRN Reason: NAUSEA Last Admin: 01/23/18 17:40 Dose: 8 mg Oxycodone HCl (Roxicodone -) 5 mg PO Q6H PRN PRN Reason: PAIN LEVEL 6-10 Last Admin: 02/02/18 06:34 Dose: 5 mg Pantoprazole Sodium (Protonix -) 40 mg PO DAILY [facility] Last Admin: 02/02/18 09:39 Dose: 40 mg Polyethylene Glycol (Miralax (For Daily Use) -) 17 gm PO DAILY [facility] Last Admin: 02/02/18 09:36 Dose: 17 gm Senna (Senna -) 2 tab PO HS PRN PRN Reason: CONSTIPATION Last Admin: 01/30/18 21:07 Dose: 2 tab Sodium Chloride ([place] Nasal [place] -) 2 spray NS BID PRN PRN Reason: NASAL CONGESTION Last Admin: 01/19/18 11:53 Dose: 2 spray Tamsulosin HCl (Flomax -) 0.8 mg PO DAILY@0830 [facility] Last Admin: 02/02/18 09:36 Dose: 0.8 mg CBC, BMP 02/02/18 07:00 02/02/18 07:00 Physical Exam S 1 s2 irregular Lungs decreased Abd- soft, NT No edema neuro- alert / awake bishop + PLAN MRSA Bactremia-- repeat cultures -ve s/p abx repeat cultures -ve - off CBI continue present care bishop care abx prep H lidocaine for penile pain-- increase to tid daily oob - chair . monitor labs on lovenox for possible or on Friday -- urology to follow-- Medically stable for proposed procedure. will follow Problem List - Problems (1) Anemia Code(s): D64.9 - ANEMIA, UNSPECIFIED (2) MRSA bacteremia Code(s): R78.81 - BACTEREMIA (3) Atrial fibrillation Code(s): I48.91 - UNSPECIFIED ATRIAL FIBRILLATION (4) HTN (hypertension) Code(s): I10 - ESSENTIAL (PRIMARY) HYPERTENSION
[2018-02-02] MEDS ORDERED: DEXTROSE 5%-0.45% SALINE 1,000 ML IV SCH (14:45)
--- NOTE | 2018-02-02 15:14 | PN ---
Progress Note, Physician History of Present Illness: stable back discomfort and penile discomfort - Current Medication List Current Medications: Active Medications Acetaminophen (Tylenol -) 650 mg PO Q6HPO PRN PRN Reason: FEVER Last Admin: 02/01/18 17:42 Dose: 650 mg Atorvastatin Calcium (Lipitor -) 20 mg PO HS [facility] Last Admin: 02/01/18 21:20 Dose: 20 mg Benzocaine (Americaine Ointment -) 1 applic [place] PRN PRN PRN Reason: hemorrhoids. Last Admin: 01/22/18 16:55 Dose: 1 applic Clotrimazole (Clotrimazole) 1 applic TP BID [facility] Last Admin: 02/02/18 09:46 Dose: Not Given Cyclobenzaprine HCl (Flexeril -) 5 mg PO DAILY [facility] Last Admin: 02/02/18 09:38 Dose: 5 mg Diazepam (Valium -) 5 mg PO Q8H PRN PRN Reason: WITHDRAWAL(CONT SUBST) Last Admin: 02/01/18 21:20 Dose: 5 mg Docusate Sodium (Colace -) 100 mg PO Q8H PRN PRN Reason: CONSTIPATION Last Admin: 01/26/18 14:34 Dose: 100 mg Enoxaparin Sodium (Lovenox -) 90 mg SQ BID [facility] Last Admin: 02/02/18 09:37 Dose: 90 mg Ferrous Sulfate (Feosol -) 325 mg PO DAILY [facility] Last Admin: 02/02/18 09:36 Dose: 325 mg Folic Acid (Folic Acid -) 1 mg PO DAILY [facility] Last Admin: 02/02/18 09:38 Dose: 1 mg Furosemide (Lasix -) 20 mg PO DAILY [facility] Last Admin: 02/02/18 09:39 Dose: 20 mg Hydrocortisone (Anusol 2.5% Hc Cream -) 1 applic [place] DAILY [facility] Last Admin: 02/02/18 09:44 Dose: 1 applic Dextrose/Sodium Chloride (D5-1/2ns -) 1,000 mls @ 80 mls/hr IV ASDIR [facility] Isosorbide Mononitrate (Imdur -) 30 mg PO DAILY [facility] Last Admin: 02/02/18 09:38 Dose: 30 mg Lidocaine HCl (Xylocaine 2% Jelly) 1 applic TP TID PRN PRN Reason: MODERATE PAIN Melatonin (Melatonin) 10 mg PO HS PRN PRN Reason: INSOMNIA Last Admin: 02/02/18 00:17 Dose: 10 mg Pt's Own Med ( Preparation H Ointment) 1 each NR Q12H PRN PRN Reason: HEMORRHOIDS Last Admin: 02/02/18 00:17 Dose: 1 each Ondansetron HCl (Zofran Injection) 8 mg IVPB Q6H PRN PRN Reason: NAUSEA Last Admin: 01/23/18 17:40 Dose: 8 mg Oxycodone HCl (Roxicodone -) 5 mg PO Q6H PRN PRN Reason: PAIN LEVEL 6-10 Last Admin: 02/02/18 14:38 Dose: 5 mg Pantoprazole Sodium (Protonix -) 40 mg PO DAILY [facility] Last Admin: 02/02/18 09:39 Dose: 40 mg Polyethylene Glycol (Miralax (For Daily Use) -) 17 gm PO DAILY [facility] Last Admin: 02/02/18 09:36 Dose: 17 gm Senna (Senna -) 2 tab PO HS PRN PRN Reason: CONSTIPATION Last Admin: 01/30/18 21:07 Dose: 2 tab Sodium Chloride ([place] Nasal [place] -) 2 spray NS BID PRN PRN Reason: NASAL CONGESTION Last Admin: 01/19/18 11:53 Dose: 2 spray Tamsulosin HCl (Flomax -) 0.8 mg PO DAILY@0830 [facility] Last Admin: 02/02/18 09:36 Dose: 0.8 mg - Objective Vital Signs: Vital Signs Temperature 99.0 F 02/02/18 10:00 Pulse Rate 93 H 02/02/18 10:00 Respiratory Rate 18 02/02/18 10:00 Blood Pressure 123/74 02/02/18 10:00 O2 Sat by Pulse Oximetry (%) 96 02/02/18 10:00 Constitutional: Yes: Calm, Mild Distress Cardiovascular: Yes: S1, S2 Respiratory: Yes: Regular, CTA Bilaterally Gastrointestinal: Yes: Normal Bowel Sounds, Soft Musculoskeletal: Yes: WNL Extremities: Yes: WNL Edema: LLE: 1+, RLE: 1+ Neurological: Yes: Alert, Oriented Psychiatric: Yes: Alert Labs: CBC, BMP 02/02/18 07:00 02/02/18 07:00 INR, PTT INR 1.53 (0.83-1.09) H 01/30/18 07:08 Assessment/Plan patient with multiple medical problems coming with weakness and knee joint swelling Problem List - Problems (1) Fever Code(s): R50.9 - FEVER, UNSPECIFIED (2) Supratherapeutic INR Code(s): R79.1 - ABNORMAL COAGULATION PROFILE (3) Anxiety Code(s): F41.9 - ANXIETY DISORDER, UNSPECIFIED (4) Atrial fibrillation Code(s): I48.91 - UNSPECIFIED ATRIAL FIBRILLATION (5) Chest pain Code(s): R07.9 - CHEST PAIN, UNSPECIFIED Qualifiers: Chest pain type: unspecified Qualified Code(s): R07.9 - Chest pain, unspecified (6) Baneg[place] catheter in place Code(s): Z92.89 - PERSONAL HISTORY OF OTHER MEDICAL TREATMENT (7) HTN (hypertension) Code(s): I10 - ESSENTIAL (PRIMARY) HYPERTENSION (8) Hematuria Code(s): R31.9 - HEMATURIA, UNSPECIFIED Qualifiers: Hematuria type: gross Qualified Code(s): R31.0 - Gross hematuria (9) Hx of CABG Code(s): Z95.1 - PRESENCE OF AORTOCORONARY BYPASS GRAFT (10) Hyperlipidemia Code(s): E78.5 - HYPERLIPIDEMIA, UNSPECIFIED hematuria Assessment/Plan continue current mgmt continue monitoring if patient going for a procedure tomorrow will give meropenam rest continue current mgmt
[2018-02-02] MEDS: ACETAMINOPHEN 325 MG TABLET (FP) PO PRN ×2 (16:07→22:11)
[2018-02-02] MEDS: diazePAM 5 MG TABLET PO PRN (16:09)
[2018-02-02] MEDS: ATORVASTATIN CA 20 MG TABLET (FP) PO SCH (22:12)
[2018-02-03] MEDS ORDERED: DEXTROSE 5%-0.45% SALINE 1,000 ML IV SCH
[2018-02-03] MEDS: MELATONIN 5 MG TABLETS PO PRN (00:02)
[2018-02-03] MEDS: diazePAM 5 MG TABLET PO PRN (00:27)
[2018-02-03] MEDS: oxyCODONE HCL 5 MG TABLET PO PRN ×2 (00:27→21:43)
[2018-02-03] MEDS ORDERED: PT OWN MED DRAWER 7, Y5N ONE ×2 (09:06→13:32)
--- NOTE | 2018-02-03 09:59 | PN ---
Progress Note, Physician History of Present Illness: stable back discomfort and penile discomfort going for or today - Current Medication List Current Medications: Active Medications Acetaminophen (Tylenol -) 650 mg PO Q6HPO PRN PRN Reason: FEVER Last Admin: 02/02/18 22:11 Dose: 650 mg Atorvastatin Calcium (Lipitor -) 20 mg PO HS [facility] Last Admin: 02/02/18 22:12 Dose: 20 mg Benzocaine (Americaine Ointment -) 1 applic [place] PRN PRN PRN Reason: hemorrhoids. Last Admin: 01/22/18 16:55 Dose: 1 applic Clotrimazole (Clotrimazole) 1 applic TP BID [facility] Last Admin: 02/02/18 22:12 Dose: 1 applic Cyclobenzaprine HCl (Flexeril -) 5 mg PO DAILY [facility] Last Admin: 02/02/18 09:38 Dose: 5 mg Diazepam (Valium -) 5 mg PO Q8H PRN PRN Reason: WITHDRAWAL(CONT SUBST) Last Admin: 02/03/18 00:27 Dose: 5 mg Docusate Sodium (Colace -) 100 mg PO Q8H PRN PRN Reason: CONSTIPATION Last Admin: 01/26/18 14:34 Dose: 100 mg Enoxaparin Sodium (Lovenox -) 90 mg SQ BID [facility] Last Admin: 02/02/18 22:13 Dose: 90 mg Ferrous Sulfate (Feosol -) 325 mg PO DAILY [facility] Last Admin: 02/02/18 09:36 Dose: 325 mg Folic Acid (Folic Acid -) 1 mg PO DAILY [facility] Last Admin: 02/02/18 09:38 Dose: 1 mg Furosemide (Lasix -) 20 mg PO DAILY [facility] Last Admin: 02/02/18 09:39 Dose: 20 mg Hydrocortisone (Anusol 2.5% Hc Cream -) 1 applic [place] DAILY [facility] Last Admin: 02/02/18 09:44 Dose: 1 applic Dextrose/Sodium Chloride (D5-1/2ns -) 1,000 mls @ 80 mls/hr IV ASDIR [facility] Last Admin: 02/03/18 00:02 Dose: 80 mls/hr Isosorbide Mononitrate (Imdur -) 30 mg PO DAILY [facility] Last Admin: 02/02/18 09:38 Dose: 30 mg Lidocaine HCl (Xylocaine 2% Jelly) 1 applic TP TID PRN PRN Reason: MODERATE PAIN Melatonin (Melatonin) 10 mg PO HS PRN PRN Reason: INSOMNIA Last Admin: 02/03/18 00:02 Dose: 10 mg Pt's Own Med ( Preparation H Ointment) 1 each NR Q12H PRN PRN Reason: HEMORRHOIDS Last Admin: 02/02/18 00:17 Dose: 1 each Ondansetron HCl (Zofran Injection) 8 mg IVPB Q6H PRN PRN Reason: NAUSEA Last Admin: 01/23/18 17:40 Dose: 8 mg Oxycodone HCl (Roxicodone -) 5 mg PO Q6H PRN PRN Reason: PAIN LEVEL 6-10 Last Admin: 02/03/18 00:27 Dose: 5 mg Pantoprazole Sodium (Protonix -) 40 mg PO DAILY [facility] Last Admin: 02/02/18 09:39 Dose: 40 mg Polyethylene Glycol (Miralax (For Daily Use) -) 17 gm PO DAILY [facility] Last Admin: 02/02/18 09:36 Dose: 17 gm Senna (Senna -) 2 tab PO HS PRN PRN Reason: CONSTIPATION Last Admin: 01/30/18 21:07 Dose: 2 tab Sodium Chloride ([place] Nasal [place] -) 2 spray NS BID PRN PRN Reason: NASAL CONGESTION Last Admin: 01/19/18 11:53 Dose: 2 spray Tamsulosin HCl (Flomax -) 0.8 mg PO DAILY@0830 [facility] Last Admin: 02/02/18 09:36 Dose: 0.8 mg - Objective Vital Signs: Vital Signs Temperature 97.6 F 02/03/18 09:58 Pulse Rate 77 02/03/18 09:58 Respiratory Rate 19 02/03/18 09:58 Blood Pressure 121/67 02/03/18 09:58 O2 Sat by Pulse Oximetry (%) 99 02/02/18 21:00 Constitutional: Yes: No Distress, Calm Neck: Yes: Supple Cardiovascular: Yes: S1, S2 Respiratory: Yes: Regular, CTA Bilaterally Gastrointestinal: Yes: Normal Bowel Sounds, Soft Musculoskeletal: Yes: WNL Extremities: Yes: WNL Neurological: Yes: Alert, Oriented Psychiatric: Yes: Alert, Oriented Labs: CBC, BMP 02/02/18 07:00 02/02/18 07:00 INR, PTT INR 1.53 (0.83-1.09) H 01/30/18 07:08 Assessment/Plan patient with multiple medical problems coming with weakness and knee joint swelling Problem List - Problems (1) Fever Code(s): R50.9 - FEVER, UNSPECIFIED (2) Supratherapeutic INR Code(s): R79.1 - ABNORMAL COAGULATION PROFILE (3) Anxiety Code(s): F41.9 - ANXIETY DISORDER, UNSPECIFIED (4) Atrial fibrillation Code(s): I48.91 - UNSPECIFIED ATRIAL FIBRILLATION (5) Chest pain Code(s): R07.9 - CHEST PAIN, UNSPECIFIED Qualifiers: Chest pain type: unspecified Qualified Code(s): R07.9 - Chest pain, unspecified (6) Banegas catheter in place Code(s): Z92.89 - PERSONAL HISTORY OF OTHER MEDICAL TREATMENT (7) HTN (hypertension) Code(s): I10 - ESSENTIAL (PRIMARY) HYPERTENSION (8) Hematuria Code(s): R31.9 - HEMATURIA, UNSPECIFIED Qualifiers: Hematuria type: gross Qualified Code(s): R31.0 - Gross hematuria (9) Hx of CABG Code(s): Z95.1 - PRESENCE OF AORTOCORONARY BYPASS GRAFT (10) Hyperlipidemia Code(s): E78.5 - HYPERLIPIDEMIA, UNSPECIFIED hematuria Assessment/Plan continue current mgmt continue monitoring started patient on abx patient for or today rest as per the team
[2018-02-03] MEDS: TAMSULOSIN HCL 0.4 MG CAP PO SCH ×2 (10:00→19:02)
[2018-02-03] MEDS: FERROUS SO4 325 MG TABLET (FP) PO SCH ×2 (10:01→19:02)
[2018-02-03] MEDS: CYCLOBENZAPRINE HCL 10 MG TABLET (FP) PO SCH ×2 (10:01→19:02)
[2018-02-03] MEDS: FUROSEMIDE 20 MG TABLET (FP) PO SCH (10:02)
[2018-02-03] MEDS: PANTOPRAZOLE 40 MG TABLET (FP) PO SCH ×2 (10:02→19:03)
[2018-02-03] MEDS: CLOTRIMAZOLE 1% 10 ML TOPICAL SOLUTION TP SCH ×2 (10:02→19:02)
[2018-02-03] MEDS: HYDROCORTISONE 2.5% TOPICAL CREAM 30 GM TUBE PR SCH (10:02)
[2018-02-03] MEDS: ISOSORBIDE MONONITRATE 30 MG TAB.SR.24H (FP) PO SCH (10:02)
[2018-02-03] MEDS: FOLIC ACID 1 MG TABLET (FP) PO SCH ×2 (10:02→19:02)
[2018-02-03] MEDS: POLYETHYLENE GLYCOL 3350 119 GM BTL PO SCH (10:03)
[2018-02-03] MEDS: ENOXAPARIN NA (PORCINE) 100 MG/1 ML DISP.SYRIN SQ SCH (10:03)
--- NOTE | 2018-02-03 10:11 | PN ---
Progress Note (short form) - Note Progress Note: Pt examined no hematuria awaiting to go to OR has penile pain Vital Signs - 24 hr 02/02/18 02/02/18 02/03/18 15:51 21:00 06:00 Temperature 97.5 F L 98.1 F Pulse Rate 54 L 76 Respiratory 18 20 20 Rate Blood Pressure 117/59 L 110/67 O2 Sat by Pulse 99 Oximetry (%) 02/03/18 09:58 Temperature 97.6 F Pulse Rate 77 Respiratory 19 Rate Blood Pressure 121/67 O2 Sat by Pulse Oximetry (%) Current Medications Generic Name Dose Route Start Last Admin Trade Name Freq PRN Reason Stop Dose Admin Acetaminophen 650 mg 01/29/18 11:15 02/02/18 22:11 Tylenol - PO 650 mg Q6HPO PRN Administration FEVER Atorvastatin Calcium 20 mg 01/12/18 22:00 02/02/18 22:12 Lipitor - PO 20 mg HS JORJE Administration Benzocaine 1 applic 01/22/18 07:52 01/22/18 16:55 [place] Ointment - [place] 1 applic PRN PRN Administration hemorrhoids. Clotrimazole 1 applic 01/20/18 10:00 02/02/18 22:12 Clotrimazole TP 1 applic BID JORJE Administration Cyclobenzaprine HCl 5 mg 01/28/18 18:45 02/02/18 09:38 Flexeril - PO 5 mg DAILY JORJE Administration Diazepam 5 mg 01/28/18 12:34 02/03/18 00:27 Valium - PO 5 mg Q8H PRN Administration WITHDRAWAL(CONT SUBST) Docusate Sodium 100 mg 01/24/18 13:28 01/26/18 14:34 Colace - PO 100 mg Q8H PRN Administration CONSTIPATION Enoxaparin Sodium 90 mg 01/29/18 11:15 02/03/18 10:03 Lovenox - SQ Not Given BID JORJE Ferrous Sulfate 325 mg 01/23/18 10:00 02/02/18 09:36 Feosol - PO 325 mg DAILY JORJE Administration Folic Acid 1 mg 01/13/18 10:00 02/02/18 09:38 Folic Acid - PO 1 mg DAILY JORJE Administration Furosemide 20 mg 01/13/18 10:00 02/03/18 10:02 Lasix - PO 20 mg DAILY JORJE Administration Hydrocortisone 1 applic 02/01/18 13:15 02/03/18 10:02 Anusol 2.5% Hc Cream - [place] 1 applic DAILY JORJE Administration Dextrose/Sodium Chloride 1,000 mls @ 80 mls/hr 02/03/18 00:00 02/03/18 00:02 D5-1/2ns - IV 80 mls/hr ASDIR JORJE Administration Meropenem 1 gm/ Dextrose 100 mls @ 200 mls/hr 02/03/18 10:00 IVPB Q8H-IV JORJE Isosorbide Mononitrate 30 mg 01/13/18 10:00 02/03/18 10:02 Imdur - PO 30 mg DAILY JORJE Administration Lidocaine HCl 1 applic 02/02/18 11:09 Xylocaine 2% Jelly TP TID PRN MODERATE PAIN Melatonin 10 mg 01/21/18 11:42 02/03/18 00:02 Melatonin PO 10 mg HS PRN Administration INSOMNIA Morphine Sulfate 1 mg 02/03/18 10:23 Morphine Injection - IVPUSH Q4H PRN PAIN LEVEL 4 - 6 Pt's Own Med ( 1 each 01/22/18 18:53 02/02/18 00:17 Preparation H NR 1 each Ointment) Q12H PRN Administration HEMORRHOIDS Ondansetron HCl 8 mg 01/22/18 10:53 01/23/18 17:40 Zofran Injection IVPB 8 mg Q6H PRN Administration NAUSEA Oxycodone HCl 5 mg 02/01/18 13:13 02/03/18 00:27 Roxicodone - PO 5 mg Q6H PRN Administration PAIN LEVEL 6-10 Pantoprazole Sodium 40 mg 01/26/18 10:15 02/02/18 09:39 Protonix - PO 40 mg DAILY JORJE Administration Polyethylene Glycol 17 gm 01/15/18 13:00 02/03/18 10:03 Miralax (For Daily Use) - PO Not Given DAILY JORJE Senna 2 tab 01/12/18 20:07 01/30/18 21:07 Senna - PO 2 tab HS PRN Administration CONSTIPATION Sodium Chloride 2 spray 01/13/18 11:46 01/19/18 11:53 [place] Trinidad Nasal [place] - NS 2 spray BID PRN Administration NASAL CONGESTION Tamsulosin HCl 0.8 mg 01/13/18 08:30 02/02/18 09:36 Flomax - PO 0.8 mg DAILY@0830 JORJE Administration S s2 irregular Lungs decreased Abd- soft, NT No edema PLAN MRSA- blood cultures repeated negative - off CBI on iv antibiotics per ID continue with meds IV Morphine PRN Problem List - Problems (1) Supratherapeutic INR Code(s): R79.1 - ABNORMAL COAGULATION PROFILE (2) Anxiety Code(s): F41.9 - ANXIETY DISORDER, UNSPECIFIED (3) Atrial fibrillation Code(s): I48.91 - UNSPECIFIED ATRIAL FIBRILLATION (4) Chest pain Code(s): R07.9 - CHEST PAIN, UNSPECIFIED Qualifiers: Chest pain type: unspecified Qualified Code(s): R07.9 - Chest pain, unspecified (5) HTN (hypertension) Code(s): I10 - ESSENTIAL (PRIMARY) HYPERTENSION (6) Hematuria Code(s): R31.9 - HEMATURIA, UNSPECIFIED Qualifiers: Hematuria type: gross Qualified Code(s): R31.0 - Gross hematuria (7) Hx of CABG Code(s): Z95.1 - PRESENCE OF AORTOCORONARY BYPASS GRAFT (8) Hyperlipidemia Code(s): E78.5 - HYPERLIPIDEMIA, UNSPECIFIED (9) MRSA bacteremia Code(s): R78.81 - BACTEREMIA (10) UTI (urinary tract infection) Code(s): N39.0 - URINARY TRACT INFECTION, SITE NOT SPECIFIED
[2018-02-03] MEDS ORDERED: MORPHINE SULFATE 2 MG/ML VIAL IVPUSH PRN (10:23)
[2018-02-03] MEDS ORDERED: MEROPENEM 1 GM in DEXTROSE 5%-WATER 100 ML IVPB SCH (10:30)
[2018-02-03 11:19] LABS: INR 1.08 (0.83-1.09); PROTHROMBIN TIME (PATIENT) 12.8 SEC (9.7-13.0)
[2018-02-03] MEDS ORDERED: MIDAZOLAM HCL 2 MG/2 ML SINGLE DOSE VIAL ONE (14:09)
--- NOTE | 2018-02-03 15:37 | OP ---
Operative Note - Note: Operative Date: 02/03/18 Pre-Operative Diagnosis: Urinary Retention, Ca of Prostate, BPH and urethral stricture Operation: Cysto, urethral dilatation TUVP Findings: Small lateral lobes severe Median bar with high riding bladder neck Post-Operative Diagnosis: Same as Pre-op Surgeon: He Garcia Anesthesia: Spinal Specimens Removed: Prostate Drains & Tubes with Location: [address] [place]
[2018-02-03] MEDS: MELATONIN 5 MG TABLETS PO SCH (21:43)
--- NOTE | 2018-02-03 23:20 | OP ---
DATE OF OPERATION: 02/03/2018 SURGEON: He Garcia M.D. ANESTHESIA: Spinal PREOPERATIVE DIAGNOSES: Urinary retention. Carcinoma of the prostate. Prostatic hypertrophy. Urethral stricture. POSTOPERATIVE DIAGNOSES: Urinary retention. Carcinoma of the prostate. Prostatic hypertrophy. Urethral stricture. PROCEDURE: Cystoscopy, urethral dilatation, and transurethral vaporization of the prostate. FINDINGS: Posterior urethral stricture noted. Very small lateral lobes. Very high-riding median border and bladder neck obstruction noted. Urethral orifice is well away with clear efflux. PROCEDURE: Patient in lithotomy position, under anesthesia, was prepped and draped in the usual manner. Urethra was dilated first, and using Storz resectoscope, bipolar instrument was used and the prostate was completely vaporized, essentially the median border and the bladder neck. Not much resection was done around the lateral lobes for fear of incontinence since patient received radiation in the past. At the end, a good channel was noted. Patient tolerated the procedure well. A 22 [place] was inserted. Continuous irrigation started. Patient left the operating room in a satisfactory condition. HE GARCIA M.D. [id number]
[2018-02-03] MEDS ORDERED: LIDOCAINE HCL 2% JELLY (5 ML/TUBE) TP PRN (23:28)
[2018-02-04] MEDS: oxyCODONE HCL 5 MG TABLET PO PRN ×3 (04:17→16:51)
--- NOTE | 2018-02-04 09:56 | PN ---
Progress Note (short form) - Note Progress Note: Anesthesia Post op Pt seen and examined S:Alert and awake O: Vital Signs Temperature 98.4 F 02/04/18 06:00 Pulse Rate 82 02/04/18 06:00 Respiratory Rate 18 02/04/18 06:00 Blood Pressure 138/72 02/04/18 06:00 O2 Sat by Pulse Oximetry (%) 97 02/03/18 21:00 CBC, BMP 02/02/18 07:00 02/02/18 07:00 A/P Current Active Problems ASHD (arteriosclerotic heart disease) (Acute) Anemia (Acute) Chronic diastolic (congestive) heart failure (Acute) MRSA bacteremia (Acute) Prostate cancer (Acute) Supratherapeutic INR (Acute) UTI (urinary tract infection) (Acute) s/p TURP Doing well post op Continue current care Alexander Castaneda MD
[2018-02-04] MEDS ORDERED: PATIENT'S OWN MEDICATION (NON-FORMULARY) (Omeprazole [Omeprazole] 40 MG) PO SCH (10:00)
--- NOTE | 2018-02-04 10:08 | PN ---
Progress Note, Physician Chief Complaint: Pt A&Ox3; lying in bed; no chest pain or dyspnea. Knee pain is intermittent. He c/o penile pain. History of Present Illness: The patient is a 77 year old white man (rajiv Owusu) with a significant past medical history of HTN, HLD, CAD (s/p stents), diastolic CHF,?PAF, prostate CA, urethral stricture (catheter in place) who presents to the ER with difficulty ranging his legs today. The patient states he noticed significant swelling, redness, and warmth to the bilateral knees. Patient reports he needed assistance to ambulate today, which is new for him. Patient states he was discharged from rehab four days ago and was ambulating appropriately until today. Patient has not eaten today as he is experiencing mild nausea. Patient denies taking any of his medications today. 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 Patient has his catheter in place and draining urine appropriately. Patient has a fever of 100.1 here in the ER. - Current Medication List Current Medications: Active Medications Fentanyl (Sublimaze Injection -) 25 mcg IVPUSH Q5M PRN PRN Reason: PAIN-PACU ORDER X 4 DOSES ONLY Lidocaine HCl (Xylocaine 2% Jelly) 1 applic TP Q8H PRN PRN Reason: MODERATE PAIN Melatonin (Melatonin) 10 mg PO HS [facility] Last Admin: 02/03/18 21:43 Dose: 10 mg Oxycodone HCl (Roxicodone -) 5 mg PO Q6H PRN PRN Reason: PAIN LEVEL 7 - 10 Last Admin: 02/04/18 04:17 Dose: 5 mg Pantoprazole Sodium (Protonix -) 40 mg PO DAILY [facility] - Objective Vital Signs: Vital Signs Temperature 98.4 F 02/04/18 06:00 Pulse Rate 82 02/04/18 06:00 Respiratory Rate 18 02/04/18 06:00 Blood Pressure 138/72 02/04/18 06:00 O2 Sat by Pulse Oximetry (%) 97 02/03/18 21:00 Constitutional: Yes: Calm Eyes: Yes: WNL HENT: Yes: WNL Neck: Yes: WNL Cardiovascular: Yes: Regular Rate and Rhythm, S1, S2 Respiratory: Yes: Regular Gastrointestinal: Yes: Soft ...Rectal Exam: Yes: Deferred Genitourinary: No: Anuria Breast(s): Yes: WNL Musculoskeletal: Yes: Joint Stiffness, Muscle Pain, Muscle Weakness Extremities: Yes: Cool Edema: No Peripheral Pulses WNL: Yes Integumentary: Yes: WNL Neurological: Yes: Alert, Oriented, Weakness Psychiatric: Yes: WNL Labs: CBC, BMP 02/02/18 07:00 02/02/18 07:00 INR, PTT INR 1.08 (0.83-1.09) 02/03/18 10:25 Problem List - Problems (1) MRSA bacteremia Assessment/Plan: febrile episodes; initially leukocytotic; WBCs now WNL. off antibiotics. Code(s): R78.81 - BACTEREMIA (2) UTI (urinary tract infection) Code(s): N39.0 - URINARY TRACT INFECTION, SITE NOT SPECIFIED (3) Anxiety Code(s): F41.9 - ANXIETY DISORDER, UNSPECIFIED (4) Atrial fibrillation Assessment/Plan: 90 mg bid Lovenox pending surgery (warfarin held). Code(s): I48.91 - UNSPECIFIED ATRIAL FIBRILLATION (5) Chronic lower back pain Assessment/Plan: spinal studies (xray) results noted; no metastases; no compression; mild lumbar spondylosis. Code(s): M54.5 - LOW BACK PAIN; G89.29 - OTHER CHRONIC PAIN (6) HTN (hypertension) Assessment/Plan: on lisinopril and beta blockers; on furosemide. Code(s): I10 - ESSENTIAL (PRIMARY) HYPERTENSION (7) Hematuria Code(s): R31.9 - HEMATURIA, UNSPECIFIED Qualifiers: Hematuria type: gross Qualified Code(s): R31.0 - Gross hematuria (8) Hyperlipidemia Assessment/Plan: Total cholesterol 118 mg/dL; on atorvastatin 20 mg daily. Code(s): E78.5 - HYPERLIPIDEMIA, UNSPECIFIED (9) Obesity Code(s): E66.9 - OBESITY, UNSPECIFIED (10) Urinary retention Assessment/Plan: Planned for surgery today. Code(s): R33.9 - RETENTION OF URINE, UNSPECIFIED (11) ASHD (arteriosclerotic heart disease) Assessment/Plan: s/p CABG s/p coronary and LE angioplasty/stents. On clopidogrel (held pending surgery); statin; nitrate (Imdur). From a cardiac perspective, there are no absolute contraindications for Mr. Waddell to undergo surgery. Code(s): I25.10 - ATHSCL HEART DISEASE OF [place] CORONARY ARTERY W/O ANG PCTRS (12) Anemia Code(s): D64.9 - ANEMIA, UNSPECIFIED (13) Prostate cancer Code(s): C61 - MALIGNANT NEOPLASM OF PROSTATE (14) Chronic diastolic (congestive) heart failure Code(s): I50.32 - CHRONIC DIASTOLIC (CONGESTIVE) HEART FAILURE
[2018-02-04] MEDS: PANTOPRAZOLE 40 MG TABLET (FP) PO SCH (10:48)
--- NOTE | 2018-02-04 11:33 | PN ---
Progress Note (short form) - Note Progress Note: Pt examined no hematuria s/p surgery bishop clear On CBI no distress Vital Signs - 24 hr 02/03/18 02/04/18 02/04/18 21:00 02:00 06:00 Temperature 98.7 F 98.4 F Pulse Rate 89 82 Respiratory 21 H 18 18 Rate Blood Pressure 125/68 138/72 O2 Sat by Pulse 97 Oximetry (%) 02/04/18 02/04/18 02/04/18 09:00 10:00 14:27 Temperature 97.9 F 98.5 F Pulse Rate 87 98 H Respiratory 19 19 22 H Rate Blood Pressure 119/74 122/77 O2 Sat by Pulse 98 Oximetry (%) 02/04/18 18:41 Temperature 98.1 F Pulse Rate 84 Respiratory 22 H Rate Blood Pressure 145/71 O2 Sat by Pulse Oximetry (%) Current Medications Generic Name Dose Route Start Last Admin Trade Name Freq PRN Reason Stop Dose Admin Clopidogrel Bisulfate 75 mg 02/05/18 10:00 Plavix - PO DAILY [facility] Enoxaparin Sodium 90 mg 02/04/18 22:00 Lovenox - SQ BID [facility] Fentanyl 25 mcg 02/03/18 15:31 Sublimaze Injection - IVPUSH Q5M PRN PAIN-PACU ORDER X 4 DOSES ONLY Lidocaine HCl 1 applic 02/03/18 23:28 Xylocaine 2% Jelly TP Q8H PRN MODERATE PAIN Melatonin 10 mg 02/03/18 22:00 02/03/18 21:43 Melatonin PO 10 mg HS JORJE Administration Oxycodone HCl 5 mg 02/03/18 21:19 02/04/18 16:51 Roxicodone - PO 5 mg Q6H PRN Administration PAIN LEVEL 7 - 10 Pantoprazole Sodium 40 mg 02/04/18 10:00 02/04/18 10:48 Protonix - PO 40 mg DAILY JORJE Administration Warfarin Sodium 3 mg 02/04/18 18:00 02/04/18 16:59 Coumadin - PO 3 mg DAILY@1800 JORJE Administration Laboratory Results - last 24 hr 02/04/18 12:13 WBC 8.5 RBC 3.36 L Hgb 9.6 L Hct 30.0 L D MCV 89.1 MCH 28.6 MCHC 32.1 RDW 18.3 H Plt Count 428 MPV 7.3 L S s2 irregular Lungs decreased Abd- soft, NT No edema PLAN MRSA- blood cultures repeated negative restart Lovenox , Coumadin tonight. Plavix in AM monitor for bleeding Check CBC PT eval 'will need STR continue with meds IV Morphine PRN Problem List - Problems (1) Supratherapeutic INR Code(s): R79.1 - ABNORMAL COAGULATION PROFILE (2) Anxiety Code(s): F41.9 - ANXIETY DISORDER, UNSPECIFIED (3) Atrial fibrillation Code(s): I48.91 - UNSPECIFIED ATRIAL FIBRILLATION (4) Chest pain Code(s): R07.9 - CHEST PAIN, UNSPECIFIED Qualifiers: Chest pain type: unspecified Qualified Code(s): R07.9 - Chest pain, unspecified (5) HTN (hypertension) Code(s): I10 - ESSENTIAL (PRIMARY) HYPERTENSION (6) Hematuria Code(s): R31.9 - HEMATURIA, UNSPECIFIED Qualifiers: Hematuria type: gross Qualified Code(s): R31.0 - Gross hematuria (7) Hx of CABG Code(s): Z95.1 - PRESENCE OF AORTOCORONARY BYPASS GRAFT (8) Hyperlipidemia Code(s): E78.5 - HYPERLIPIDEMIA, UNSPECIFIED (9) MRSA bacteremia Code(s): R78.81 - BACTEREMIA (10) UTI (urinary tract infection) Code(s): N39.0 - URINARY TRACT INFECTION, SITE NOT SPECIFIED
--- NOTE | 2018-02-04 12:20 | PN ---
Progress Note, Physician History of Present Illness: he patient is a 77 year old male with a significant past medical history of HTN , HLD, CAD (s/p stents), prostate CA, urethral stricture (catheter in place) who presents to the ER with difficulty ranging his legs today. The patient states he noticed significant swelling, redness, and warmth to the bilateral knees. Patient reports he needed assistance to ambulate today, which is new for him. Patient states he was discharged from rehab four days ago and was ambulating appropriately until today. Patient has not eaten today as he is experiencing mild nausea. Patient denies taking any of his medications today. 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 Patient has his catheter in place and draining urine appropriately. Patient has a fever of 100.1 here in the ER. The patient denies chest pain, shortness of breath, headache, and dizziness. Denies chills, vomit, diarrhea, and constipation. Allergies: strawberry, pepper, iohexol Past surgical history: stents Social history: No reported alcohol, drug, or cigarette use. H cabg lithotripsy prostate seeds Ongoing medical problems Afib diagnosed at the hospital during SFA [employer]ATION [employer]NA[employer]ST 08/2015 and has been on coumadin since then 2015 CAD Coronary artery bypass graft SANTIAGO of left SFA August 11, 2014 Dr. Blanton SANTIAGO of left PDA July 07, 2014 Dr. Blanton dizziness Hyperlipidemia Hypertension Negative MIBI stress test 2013 [place] [facility] NSVT Pauses PCI SANTIAGO of p LCx March 30, 2015 Dr. Blanton PCI LCx 08/17/12 [facility] PCI LCx 07/07/14 Dr. Blantno SENIOR COMPENSATION ANALYST/stent right SFA 526/16 DR BLANTON Right SFA 100 occlusion July 07, 2014 Dr. Blanton s/p S[employer]IOR COMPENSATION ANALYST drug elluting balloon L SFA 2015 s/p SENIOR COMPENSATION ANALYST left SFA 09/25/17 for left foot ulcer s/p urethral stricture after cystoscopy and urethrotomy the patient went into septic shock and was treated with antibiotics and was stabilized. October 2017 - Current Medication List Current Medications: Active Medications Clopidogrel Bisulfate (Plavix -) 75 mg PO DAILY JORJE Enoxaparin Sodium (Lovenox -) 90 mg SQ BID JORJE Fentanyl (Sublimaze Injection -) 25 mcg IVPUSH Q5M PRN PRN Reason: PAIN-PACU ORDER X 4 DOSES ONLY Lidocaine HCl (Xylocaine 2% Jelly) 1 applic TP Q8H PRN PRN Reason: MODERATE PAIN Melatonin (Melatonin) 10 mg PO HS [facility] Last Admin: 02/03/18 21:43 Dose: 10 mg Oxycodone HCl (Roxicodone -) 5 mg PO Q6H PRN PRN Reason: PAIN LEVEL 7 - 10 Last Admin: 02/04/18 10:48 Dose: 5 mg Pantoprazole Sodium (Protonix -) 40 mg PO DAILY [facility] Last Admin: 02/04/18 10:48 Dose: 40 mg Warfarin Sodium (Coumadin -) 3 mg PO DAILY@1800 [facility] - Objective Vital Signs: Vital Signs Temperature 97.9 F 02/04/18 10:00 Pulse Rate 87 02/04/18 10:00 Respiratory Rate 19 02/04/18 10:00 Blood Pressure 119/74 02/04/18 10:00 O2 Sat by Pulse Oximetry (%) 97 02/03/18 21:00 Eyes: Yes: WNL, Conjunctiva Clear, EOM Intact HENT: Yes: WNL, Atraumatic, Normocephalic Neck: Yes: WNL, Supple, Trachea Midline Cardiovascular: Yes: WNL, Regular Rate and Rhythm Respiratory: Yes: WNL, Regular, CTA Bilaterally Gastrointestinal: Yes: WNL, Normal Bowel Sounds Genitourinary: Yes: WNL Musculoskeletal: Yes: WNL Extremities: Yes: WNL Edema: No Integumentary: Yes: WNL Neurological: Yes: WNL, Alert, Oriented ...Motor Strength: WNL Psychiatric: Yes: WNL Labs: CBC, BMP 02/02/18 07:00 02/02/18 07:00 INR, PTT INR 1.08 (0.83-1.09) 02/03/18 10:25 Assessment/Plan - Problems (1) MRSA bacteremia Assessment/Plan: febrile episodes; initially leukocytotic; WBCs now WNL. off antibiotics. Code(s): R78.81 - BACTEREMIA (2) UTI (urinary tract infection) Code(s): N39.0 - URINARY TRACT INFECTION, SITE NOT SPECIFIED (3) Anxiety Code(s): F41.9 - ANXIETY DISORDER, UNSPECIFIED (4) Atrial fibrillation Assessment/Plan: 90 mg bid Lovenox pending surgery (warfarin held). Code(s): I48.91 - UNSPECIFIED ATRIAL FIBRILLATION (5) Chronic lower back pain Assessment/Plan: spinal studies (xray) results noted; no metastases; no compression; mild lumbar spondylosis. Code(s): M54.5 - LOW BACK PAIN; G89.29 - OTHER CHRONIC PAIN (6) HTN (hypertension) Assessment/Plan: on lisinopril and beta blockers; on furosemide. Code(s): I10 - ESSENTIAL (PRIMARY) HYPERTENSION (7) Hematuria Code(s): R31.9 - HEMATURIA, UNSPECIFIED Qualifiers: Hematuria type: gross Qualified Code(s): R31.0 - Gross hematuria (8) Hyperlipidemia Assessment/Plan: Total cholesterol 118 mg/dL; on atorvastatin 20 mg daily. Code(s): E78.5 - HYPERLIPIDEMIA, UNSPECIFIED (9) Obesity Code(s): E66.9 - OBESITY, UNSPECIFIED (10) Urinary retention Assessment/Plan: Planned for surgery today. Code(s): R33.9 - RETENTION OF URINE, UNSPECIFIED (11) ASHD (arteriosclerotic heart disease) Assessment/Plan: s/p CABG s/p coronary and LE angioplasty/stents. On clopidogrel (held pending surgery); statin; nitrate (Imdur). From a cardiac perspective, there are no absolute contraindications for Mr. Waddell to undergo surgery. Code(s): I25.10 - ATHSCL HEART DISEASE OF [place] CORONARY ARTERY W/O ANG PCTRS (12) Anemia Code(s): D64.9 - ANEMIA, UNSPECIFIED (13) Prostate cancer Code(s): C61 - MALIGNANT NEOPLASM OF PROSTATE (14) Chronic diastolic (congestive) heart failure Code(s): I50.32 - CHRONIC DIASTOLIC (CONGESTIVE) HEART FAILURE
[2018-02-04 12:30] LABS: HEMOGLOBIN 9.6 GM/dL (11.7-16.9); MCH 28.6 pg (25.7-33.7); MCHC 32.1 g/dl (32.0-35.9); MEAN CELL VOLUME 89.1 fl (80-96); MEAN PLT VOLUME 7.3 fl (7.5-11.1); PLATELET COUNT 428 K/MM3 (134-434); RBC 3.36 M/mm3 (4.00-5.60); RDW 18.3 % (11.9-15.9); WHITE BLOOD COUNT 8.5 K/mm3 (4.0-10.0)
--- NOTE | 2018-02-04 13:49 | PN ---
Progress Note, Physician History of Present Illness: stable no new issues clear urine - Current Medication List Current Medications: Active Medications Clopidogrel Bisulfate (Plavix -) 75 mg PO DAILY [facility] Enoxaparin Sodium (Lovenox -) 90 mg SQ BID [facility] Fentanyl (Sublimaze Injection -) 25 mcg IVPUSH Q5M PRN PRN Reason: PAIN-PACU ORDER X 4 DOSES ONLY Lidocaine HCl (Xylocaine 2% Jelly) 1 applic TP Q8H PRN PRN Reason: MODERATE PAIN Melatonin (Melatonin) 10 mg PO HS [facility] Last Admin: 02/03/18 21:43 Dose: 10 mg Oxycodone HCl (Roxicodone -) 5 mg PO Q6H PRN PRN Reason: PAIN LEVEL 7 - 10 Last Admin: 02/04/18 10:48 Dose: 5 mg Pantoprazole Sodium (Protonix -) 40 mg PO DAILY [facility] Last Admin: 02/04/18 10:48 Dose: 40 mg Warfarin Sodium (Coumadin -) 3 mg PO DAILY@1800 [facility] - Objective Vital Signs: Vital Signs Temperature 97.9 F 02/04/18 10:00 Pulse Rate 87 02/04/18 10:00 Respiratory Rate 19 02/04/18 10:00 Blood Pressure 119/74 02/04/18 10:00 O2 Sat by Pulse Oximetry (%) 97 02/03/18 21:00 Constitutional: Yes: No Distress, Calm Cardiovascular: Yes: S1, S2 Respiratory: Yes: Regular, CTA Bilaterally Gastrointestinal: Yes: Normal Bowel Sounds, Soft Genitourinary: Yes: [place] Present Musculoskeletal: Yes: WNL Extremities: Yes: WNL Neurological: Yes: Alert, Oriented Psychiatric: Yes: Alert, Oriented Labs: CBC, BMP 02/04/18 12:13 02/02/18 07:00 INR, PTT INR 1.08 (0.83-1.09) 02/03/18 10:25 Assessment/Plan patient with multiple medical problems coming with weakness and knee joint swelling Problem List - Problems (1) Fever Code(s): R50.9 - FEVER, UNSPECIFIED (2) Supratherapeutic INR Code(s): R79.1 - ABNORMAL COAGULATION PROFILE (3) Anxiety Code(s): F41.9 - ANXIETY DISORDER, UNSPECIFIED (4) Atrial fibrillation Code(s): I48.91 - UNSPECIFIED ATRIAL FIBRILLATION (5) Chest pain Code(s): R07.9 - CHEST PAIN, UNSPECIFIED Qualifiers: Chest pain type: unspecified Qualified Code(s): R07.9 - Chest pain, unspecified (6) [place] catheter in place Code(s): Z92.89 - PERSONAL HISTORY OF OTHER MEDICAL TREATMENT (7) HTN (hypertension) Code(s): I10 - ESSENTIAL (PRIMARY) HYPERTENSION (8) Hematuria Code(s): R31.9 - HEMATURIA, UNSPECIFIED Qualifiers: Hematuria type: gross Qualified Code(s): R31.0 - Gross hematuria (9) Hx of CABG Code(s): Z95.1 - PRESENCE OF AORTOCORONARY BYPASS GRAFT (10) Hyperlipidemia Code(s): E78.5 - HYPERLIPIDEMIA, UNSPECIFIED hematuria Assessment/Plan continue current mgmt continue monitoring monitor off of abx now rest as per the team
[2018-02-04] MEDS ORDERED: WARFARIN NA 3 MG TABLET PO SCH (18:00)
[2018-02-04] MEDS: ENOXAPARIN NA (PORCINE) 100 MG/1 ML DISP.SYRIN SQ SCH (21:55)
[2018-02-04] MEDS: MELATONIN 5 MG TABLETS PO SCH (21:55)
[2018-02-05 08:07] LABS: HEMOGLOBIN 8.6 GM/dL (11.7-16.9); MCH 28.3 pg (25.7-33.7); MCHC 31.8 g/dl (32.0-35.9); MEAN PLT VOLUME 7.8 fl (7.5-11.1); PLATELET COUNT 361 K/MM3 (134-434); RBC 3.03 M/mm3 (4.00-5.60); RDW 18.3 % (11.9-15.9); WHITE BLOOD COUNT 8.3 K/mm3 (4.0-10.0)
[2018-02-05 08:26] LABS: ANION GAP 4 MMOL/L (8-16); BLOOD UREA NITROGEN 22 mg/dL (7-18); CHLORIDE 106 mmol/L (98-107); CO2 25 mmol/L (21-32); CREATININE 1.1 mg/dL (0.55-1.3); GLUCOSE,RANDOM 99 mg/dL (74-106); POTASSIUM 4.3 mmol/L (3.5-5.1); SODIUM 135 mmol/L (136-145)
[2018-02-05 08:32] LABS: INR 1.14 (0.83-1.09); PROTHROMBIN TIME (PATIENT) 13.5 SEC (9.7-13.0)
[2018-02-05] MEDS: ENOXAPARIN NA (PORCINE) 100 MG/1 ML DISP.SYRIN SQ SCH ×2 (10:06→21:21)
[2018-02-05] MEDS: CLOPIDOGREL BISULFATE 75 MG TABLET (FP) PO SCH (10:06)
[2018-02-05] MEDS: PANTOPRAZOLE 40 MG TABLET (FP) PO SCH (10:06)
[2018-02-05] MEDS: oxyCODONE HCL 5 MG TABLET PO PRN ×2 (10:24→16:50)
--- NOTE | 2018-02-05 11:54 | PN ---
Progress Note (short form) - Note Progress Note: Pt examined no hematuria s/p surgery POD # 2 bishop clear no distress Vital Signs - 24 hr 02/04/18 02/04/18 02/04/18 14:27 18:41 21:00 Temperature 98.5 F 98.1 F Pulse Rate 98 H 84 Respiratory 22 H 22 H Rate Blood Pressure 122/77 145/71 O2 Sat by Pulse 98 Oximetry (%) 02/05/18 02/05/18 02/05/18 01:38 02:00 06:00 Temperature 98.8 F 98.1 F 98.8 F Pulse Rate 85 81 Respiratory 20 20 Rate Blood Pressure 105/69 116/65 O2 Sat by Pulse Oximetry (%) 02/05/18 10:00 Temperature 98.5 F Pulse Rate 79 Respiratory 18 Rate Blood Pressure 122/60 O2 Sat by Pulse Oximetry (%) Current Medications Generic Name Dose Route Start Last Admin Trade Name Freq PRN Reason Stop Dose Admin Clopidogrel Bisulfate 75 mg 02/05/18 10:00 02/05/18 10:06 Plavix - PO 75 mg DAILY JORJE Administration Enoxaparin Sodium 90 mg 02/04/18 22:00 02/05/18 10:06 Lovenox - SQ 90 mg BID JORJE Administration Fentanyl 25 mcg 02/03/18 15:31 Sublimaze Injection - IVPUSH Q5M PRN PAIN-PACU ORDER X 4 DOSES ONLY Lidocaine HCl 1 applic 02/03/18 23:28 02/04/18 21:30 Xylocaine 2% Jelly TP 1 applic Q8H PRN Administration MODERATE PAIN Melatonin 10 mg 02/03/18 22:00 02/04/18 21:55 Melatonin PO 10 mg HS JORJE Administration Oxycodone HCl 5 mg 02/03/18 21:19 02/05/18 10:24 Roxicodone - PO 5 mg Q6H PRN Administration PAIN LEVEL 7 - 10 Pantoprazole Sodium 40 mg 02/04/18 10:00 02/05/18 10:06 Protonix - PO 40 mg DAILY JORJE Administration Warfarin Sodium 5 mg 02/05/18 18:00 Coumadin - PO DAILY@1800 [facility] Laboratory Results - last 24 hr 02/04/18 02/05/18 02/05/18 12:13 07:00 07:00 WBC 8.5 8.3 RBC 3.36 L 3.03 L Hgb 9.6 L 8.6 L Hct 30.0 L D 27.0 L MCV 89.1 89.0 MCH 28.6 28.3 MCHC 32.1 31.8 L RDW 18.3 H 18.3 H Plt Count 428 361 MPV 7.3 L 7.8 PT with INR INR Sodium 135 L Potassium 4.3 Chloride 106 Carbon Dioxide 25 Anion Gap 4 L BUN 22 H Creatinine 1.1 Creat Clearance w eGFR > 60 Random Glucose 99 Calcium 9.0 02/05/18 07:00 WBC RBC Hgb Hct MCV MCH MCHC RDW Plt Count MPV PT with INR 13.50 H INR 1.14 H Sodium Potassium Chloride Carbon Dioxide Anion Gap BUN Creatinine Creat Clearance w eGFR Random Glucose Calcium S s2 irregular Lungs decreased Abd- soft, NT No edema PLAN MRSA- blood cultures repeated negative restarted Plavix,Coumadin monitor for bleeding-- bishop clear today Check CBC PT eval 'will need STR continue with meds IV Morphine PRN Problem List - Problems (1) Supratherapeutic INR Code(s): R79.1 - ABNORMAL COAGULATION PROFILE (2) Anxiety Code(s): F41.9 - ANXIETY DISORDER, UNSPECIFIED (3) Atrial fibrillation Code(s): I48.91 - UNSPECIFIED ATRIAL FIBRILLATION (4) Chest pain Code(s): R07.9 - CHEST PAIN, UNSPECIFIED Qualifiers: Chest pain type: unspecified Qualified Code(s): R07.9 - Chest pain, unspecified (5) HTN (hypertension) Code(s): I10 - ESSENTIAL (PRIMARY) HYPERTENSION (6) Hematuria Code(s): R31.9 - HEMATURIA, UNSPECIFIED Qualifiers: Hematuria type: gross Qualified Code(s): R31.0 - Gross hematuria (7) Hx of CABG Code(s): Z95.1 - PRESENCE OF AORTOCORONARY BYPASS GRAFT (8) Hyperlipidemia Code(s): E78.5 - HYPERLIPIDEMIA, UNSPECIFIED (9) MRSA bacteremia Code(s): R78.81 - BACTEREMIA (10) UTI (urinary tract infection) Code(s): N39.0 - URINARY TRACT INFECTION, SITE NOT SPECIFIED
--- NOTE | 2018-02-05 16:39 | PATH ---
Surgical Pathology Report Patient Name: LYLE ANSARI [facility]. Rec. #: [id number] /Age/Gender: 1940 (Age: 78) / M Account: [id number] Location: [address] [place] [address] Taken: 02/03/2018 Received: 02/04/2018 Reported: 02/05/2018 Physicians: He Garcia M.D. Specimen(s) Received PROSTATE CHIPS Clinical History BPH Final Diagnosis PROSTATE, TRANSURETHRAL RESECTION AND VAPORIZATION OF PROSTATE: FRAGMENTS OF SMOOTH MUSCLE, STROMA, UROTHELIAL AND SQUAMOUS MUCOSA WITH MILD ACUTE AND CHRONIC INFLAMMATION IN A HEMORRHAGIC BACKGROUND. NO DEFINITIVE PROSTATIC GLANDULAR COMPONENT IDENTIFIED. Comment: Suggest clinical and cystoscopic correlation. Electronically Signed Ashley Funes M.D. Gross Description Received in formalin labeled "prostate," a 1 g, 2.6 x 2.0 x 0.3 cm aggregate of casiano, firm to rubbery portions of tissue admixed with blood clot, consistent with prostate tissue. The formalin is filtered and the specimen is entirely submitted in one cassette. /02/04/2018 [facility]02/04/2018
[2018-02-05] MEDS: WARFARIN NA 5 MG TABLET (UD) PO SCH (16:59)
[2018-02-05] MEDS ORDERED: DOCUSATE SODIUM 100 MG CAPSULE (FP) PO STA (17:11)
[2018-02-05] MEDS: DOCUSATE SODIUM 100 MG CAPSULE (FP) PO SCH (21:21)
[2018-02-05] MEDS: POLYETHYLENE GLYCOL 3350 119 GM BTL PO SCH (21:21)
[2018-02-05] MEDS: MELATONIN 5 MG TABLETS PO SCH (21:21)
[2018-02-06] MEDS: oxyCODONE HCL 5 MG TABLET PO PRN ×5 (00:10→22:17)
[2018-02-06 07:32] LABS: HEMATOCRIT 26.8 % (35.4-49); HEMOGLOBIN 8.5 GM/dL (11.7-16.9); MCHC 31.7 g/dl (32.0-35.9); MEAN CELL VOLUME 88.5 fl (80-96); MEAN PLT VOLUME 7.2 fl (7.5-11.1); PLATELET COUNT 361 K/MM3 (134-434); RBC 3.03 M/mm3 (4.00-5.60); RDW 18.5 % (11.9-15.9); WHITE BLOOD COUNT 7.8 K/mm3 (4.0-10.0)
[2018-02-06 08:05] LABS: INR 1.18 (0.83-1.09)
[2018-02-06] MEDS ORDERED: PT OWN MED DRAWER 7, Y5N ONE ×4 (10:45→22:14)
[2018-02-06] MEDS: PANTOPRAZOLE 40 MG TABLET (FP) PO SCH (10:49)
[2018-02-06] MEDS: CLOPIDOGREL BISULFATE 75 MG TABLET (FP) PO SCH (10:50)
[2018-02-06] MEDS: ENOXAPARIN NA (PORCINE) 100 MG/1 ML DISP.SYRIN SQ SCH ×2 (10:50→22:18)
[2018-02-06] MEDS: POLYETHYLENE GLYCOL 3350 119 GM BTL PO SCH ×2 (10:51→22:28)
[2018-02-06] MEDS ORDERED: BISACODYL 10 MG SUPP.RECT RC PRN (12:33)
--- NOTE | 2018-02-06 12:36 | PN ---
Progress Note (short form) - Note Progress Note: pt seen/ examined chart reviewed pod # 3 c/c pain in left knee-- dont want to go to custodial today -- due to pain in left knee Vital Signs Temp 98.5 F 02/06/18 10:00 Pulse 94 H 02/06/18 10:00 Resp 18 02/06/18 10:00 BP 123/53 L 02/06/18 10:00 Pulse Ox 98 02/05/18 09:00 Intake & Output 02/05/18 02/06/18 02/06/18 23:59 11:59 23:59 Intake Total 590 250 Output Total 1000 Balance -410 250 Intake: Oral 590 250 Output: Urine 1000 Bishop 1000 Other: Voiding Method Indwelling Catheter Bedside Commode Bowel Movement No No Active Medications Bisacodyl (Dulcolax Suppository -) [address] DAILY PRN PRN Reason: CONSTIPATION Clopidogrel Bisulfate (Plavix -) 75 mg PO DAILY [facility] Last Admin: 02/06/18 10:50 Dose: 75 mg Clotrimazole (Lotrimin 1% Cream -) 1 applic TP BID [facility] Cyclobenzaprine HCl (Cyclobenzaprine Hcl) 5 mg PO DAILY [facility] Docusate Sodium (Colace -) 300 mg PO HS [facility] Last Admin: 02/05/18 21:21 Dose: 300 mg Enoxaparin Sodium (Lovenox -) 90 mg SQ BID [facility] Last Admin: 02/06/18 10:50 Dose: 90 mg Fentanyl (Sublimaze Injection -) 25 mcg IVPUSH Q5M PRN PRN Reason: PAIN-PACU ORDER X 4 DOSES ONLY Lidocaine HCl (Xylocaine 2% Jelly) 1 applic TP Q8H PRN PRN Reason: MODERATE PAIN Last Admin: 02/04/18 21:30 Dose: 1 applic Melatonin (Melatonin) 10 mg PO HS [facility] Last Admin: 02/05/18 21:21 Dose: 10 mg Oxycodone HCl (Roxicodone -) 5 mg PO Q4H PRN PRN Reason: PAIN LEVEL 7 - 10 Pantoprazole Sodium (Protonix -) 40 mg PO DAILY [facility] Last Admin: 02/06/18 10:49 Dose: 40 mg Polyethylene Glycol (Miralax (For Daily Use) -) 17 gm PO BID [facility] Last Admin: 10/19/18 10:51 Dose: 17 gm Warfarin Sodium (Coumadin -) 5 mg PO DAILY@1800 JORJE Last Admin: 02/05/18 16:59 Dose: 5 mg CBC, BMP 02/06/18 06:50 02/05/18 07:00 Physical Exam alert/ awake S s2 irregular Lungs decreased at bases Abd- soft, NT No edema left knee-- mild tenderness -- no reddness PLAN MRSA- blood cultures repeated negative restarted Plavix,Coumadin monitor for bleeding-- bishop clear pain control will consult ortho per pt request-- although i doubt they will inject as pt on plavix/ lovonox/ coumadin dc lovenox when inr is therapeutic will follow Problem List - Problems (1) Anemia Code(s): D64.9 - ANEMIA, UNSPECIFIED (2) MRSA bacteremia Code(s): R78.81 - BACTEREMIA (3) Atrial fibrillation Code(s): I48.91 - UNSPECIFIED ATRIAL FIBRILLATION (4) HTN (hypertension) Code(s): I10 - ESSENTIAL (PRIMARY) HYPERTENSION
--- NOTE | 2018-02-06 13:23 | PN ---
Progress Note, Physician History of Present Illness: stable c/o of pain in the knees and back - Current Medication List Current Medications: Active Medications Bisacodyl (Dulcolax Suppository -) 10 mg RC DAILY PRN PRN Reason: CONSTIPATION Clopidogrel Bisulfate (Plavix -) 75 mg PO DAILY [facility] Last Admin: 02/06/18 10:50 Dose: 75 mg Clotrimazole (Lotrimin 1% Cream -) 1 applic TP BID [facility] Cyclobenzaprine HCl (Flexeril -) 5 mg PO DAILY [facility] Docusate Sodium (Colace -) 300 mg PO [facility] Last Admin: 02/05/18 21:21 Dose: 300 mg Enoxaparin Sodium (Lovenox -) 90 mg SQ BID [facility] Last Admin: 02/06/18 10:50 Dose: 90 mg Fentanyl (Sublimaze Injection -) 25 mcg IVPUSH Q5M PRN PRN Reason: PAIN-PACU ORDER X 4 DOSES ONLY Lidocaine HCl (Xylocaine 2% Jelly) 1 applic TP Q8H PRN PRN Reason: MODERATE PAIN Last Admin: 02/04/18 21:30 Dose: 1 applic Melatonin (Melatonin) 10 mg PO [facility] Last Admin: 02/05/18 21:21 Dose: 10 mg Oxycodone HCl (Roxicodone -) 5 mg PO Q4H PRN PRN Reason: PAIN LEVEL 7 - 10 Pantoprazole Sodium (Protonix -) 40 mg PO DAILY [facility] Last Admin: 02/06/18 10:49 Dose: 40 mg Polyethylene Glycol (Miralax (For Daily Use) -) 17 gm PO BID [facility] Last Admin: 02/06/18 10:51 Dose: 17 gm Warfarin Sodium (Coumadin -) 5 mg PO DAILY@1800 [facility] Last Admin: 02/05/18 16:59 Dose: 5 mg - Objective Vital Signs: Vital Signs Temperature 98.5 F 02/06/18 10:00 Pulse Rate 94 H 02/06/18 10:00 Respiratory Rate 18 02/06/18 10:00 Blood Pressure 123/53 L 02/06/18 10:00 O2 Sat by Pulse Oximetry (%) 98 02/05/18 09:00 Constitutional: Yes: No Distress, Calm Cardiovascular: Yes: S1, S2 Respiratory: Yes: Regular, CTA Bilaterally Gastrointestinal: Yes: Normal Bowel Sounds, Soft Genitourinary: Yes: [place] Present Musculoskeletal: Yes: WNL Extremities: Yes: WNL Neurological: Yes: Alert, Oriented Psychiatric: Yes: Alert, Oriented Labs: CBC, BMP 02/06/18 06:50 02/05/18 07:00 INR, PTT INR 1.18 (0.83-1.09) H 02/06/18 06:50 Assessment/Plan patient with multiple medical problems coming with weakness and knee joint swelling Problem List - Problems (1) Fever Code(s): R50.9 - FEVER, UNSPECIFIED (2) Supratherapeutic INR Code(s): R79.1 - ABNORMAL COAGULATION PROFILE (3) Anxiety Code(s): F41.9 - ANXIETY DISORDER, UNSPECIFIED (4) Atrial fibrillation Code(s): I48.91 - UNSPECIFIED ATRIAL FIBRILLATION (5) Chest pain Code(s): R07.9 - CHEST PAIN, UNSPECIFIED Qualifiers: Chest pain type: unspecified Qualified Code(s): R07.9 - Chest pain, unspecified (6) Banegas catheter in place Code(s): Z92.89 - PERSONAL HISTORY OF OTHER MEDICAL TREATMENT (7) HTN (hypertension) Code(s): I10 - ESSENTIAL (PRIMARY) HYPERTENSION (8) Hematuria Code(s): R31.9 - HEMATURIA, UNSPECIFIED Qualifiers: Hematuria type: gross Qualified Code(s): R31.0 - Gross hematuria (9) Hx of CABG Code(s): Z95.1 - PRESENCE OF AORTOCORONARY BYPASS GRAFT (10) Hyperlipidemia Code(s): E78.5 - HYPERLIPIDEMIA, UNSPECIFIED hematuria Assessment/Plan continue current mgmt continue monitoring monitor off of abx now rest as per the team
[2018-02-06] MEDS: CYCLOBENZAPRINE HCL 10 MG TABLET (FP) PO SCH (14:37)
[2018-02-06] MEDS: CLOTRIMAZOLE 1% CREAM 15 GM TUBE TP SCH ×2 (14:38→22:18)
--- NOTE | 2018-02-06 15:25 | PN ---
Progress Note, Physician Chief Complaint: Pt A&Ox3; lying in bed; no chest pain or dyspnea. Knee pain is intermittent and strong; relieved by oxycontin. No penile pain. History of Present Illness: The patient is a 77 year old white man (rajiv Owusu) with a significant past medical history of HTN, HLD, CAD (s/p stents), diastolic CHF,?PAF, prostate CA, urethral stricture (catheter in place) who presents to the ER with difficulty ranging his legs today. The patient states he noticed significant swelling, redness, and warmth to the bilateral knees. Patient reports he needed assistance to ambulate today, which is new for him. Patient states he was discharged from rehab four days ago and was ambulating appropriately until today. Patient has not eaten today as he is experiencing mild nausea. Patient denies taking any of his medications today. 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 Patient has his catheter in place and draining urine appropriately. Patient has a fever of 100.1 here in the ER. - Current Medication List Current Medications: Active Medications Bisacodyl (Dulcolax Suppository -) 10 mg RC DAILY PRN PRN Reason: CONSTIPATION Last Admin: 02/06/18 14:39 Dose: 10 mg Clopidogrel Bisulfate (Plavix -) 75 mg PO DAILY [facility] Last Admin: 02/06/18 10:50 Dose: 75 mg Clotrimazole (Lotrimin 1% Cream -) 1 applic TP BID [facility] Last Admin: 02/06/18 14:38 Dose: 1 applic Cyclobenzaprine HCl (Flexeril -) 5 mg PO DAILY [facility] Last Admin: 02/06/18 14:37 Dose: 5 mg Docusate Sodium (Colace -) 300 mg PO HS [facility] Last Admin: 02/05/18 21:21 Dose: 300 mg Enoxaparin Sodium (Lovenox -) 90 mg SQ BID [facility] Last Admin: 02/06/18 10:50 Dose: 90 mg Fentanyl (Sublimaze Injection -) 25 mcg IVPUSH Q5M PRN PRN Reason: PAIN-PACU ORDER X 4 DOSES ONLY Ferrous Sulfate (Feosol -) 325 mg PO BID [facility] Lidocaine HCl (Xylocaine 2% Jelly) 1 applic TP Q8H PRN PRN Reason: MODERATE PAIN Last Admin: 02/04/18 21:30 Dose: 1 applic Melatonin (Melatonin) 10 mg PO HS [facility] Last Admin: 02/05/18 21:21 Dose: 10 mg Oxycodone HCl (Roxicodone -) 5 mg PO Q4H PRN PRN Reason: PAIN LEVEL 7 - 10 Pantoprazole Sodium (Protonix -) 40 mg PO DAILY [facility] Last Admin: 02/06/18 10:49 Dose: 40 mg Polyethylene Glycol (Miralax (For Daily Use) -) 17 gm PO BID [facility] Last Admin: 02/06/18 10:51 Dose: 17 gm Warfarin Sodium (Coumadin -) 5 mg PO DAILY@1800 [facility] Last Admin: 02/05/18 16:59 Dose: 5 mg - Objective Vital Signs: Vital Signs Temperature 98.5 F 02/06/18 10:00 Pulse Rate 94 H 02/06/18 10:00 Respiratory Rate 18 02/06/18 10:00 Blood Pressure 123/53 L 02/06/18 10:00 O2 Sat by Pulse Oximetry (%) 98 02/05/18 09:00 Constitutional: Yes: Anxious Eyes: Yes: WNL HENT: Yes: WNL Neck: Yes: WNL Cardiovascular: Yes: S1, S2, S4 Respiratory: Yes: Regular Gastrointestinal: Yes: Soft ...Rectal Exam: Yes: Deferred Genitourinary: No: Anuria Musculoskeletal: Yes: Joint Stiffness, Muscle Weakness Extremities: Yes: Cool Edema: No Peripheral Pulses WNL: No Integumentary: Yes: Other Neurological: Yes: Alert, Oriented, Weakness Psychiatric: Yes: Alert, Oriented, Other (anxiety/depression) Labs: CBC, BMP 02/06/18 06:50 02/05/18 07:00 INR, PTT INR 1.18 (0.83-1.09) H 02/06/18 06:50 Problem List - Problems (1) MRSA bacteremia Assessment/Plan: febrile episodes; initially leukocytotic; WBCs now WNL. off antibiotics. Code(s): R78.81 - BACTEREMIA (2) UTI (urinary tract infection) Code(s): N39.0 - URINARY TRACT INFECTION, SITE NOT SPECIFIED (3) Anxiety Code(s): F41.9 - ANXIETY DISORDER, UNSPECIFIED (4) Atrial fibrillation Assessment/Plan: 90 mg bid Lovenox until INR 2-3 with warfarin. Code(s): I48.91 - UNSPECIFIED ATRIAL FIBRILLATION (5) Chronic lower back pain Assessment/Plan: spinal studies (xray) results noted; no metastases; no compression; mild lumbar spondylosis. Code(s): M54.5 - LOW BACK PAIN; G89.29 - OTHER CHRONIC PAIN (6) HTN (hypertension) Assessment/Plan: on lisinopril and beta blockers; on furosemide. Code(s): I10 - ESSENTIAL (PRIMARY) HYPERTENSION (7) Hematuria Assessment/Plan: clear-appearing urine in bag; f/u UA. Code(s): R31.9 - HEMATURIA, UNSPECIFIED Qualifiers: Hematuria type: gross Qualified Code(s): R31.0 - Gross hematuria (8) Hyperlipidemia Assessment/Plan: Total cholesterol 118 mg/dL; on atorvastatin 20 mg daily; keep LDL well below 70 mg/dL. Code(s): E78.5 - HYPERLIPIDEMIA, UNSPECIFIED (9) Obesity Code(s): E66.9 - OBESITY, UNSPECIFIED (10) Urinary retention Assessment/Plan: s/p TURP. Code(s): R33.9 - RETENTION OF URINE, UNSPECIFIED (11) ASHD (arteriosclerotic heart disease) Assessment/Plan: s/p CABG s/p coronary and LE angioplasty/stents. On clopidogrel (?allergy to ASA); statin; nitrate (Imdur). Code(s): I25.10 - ATHSCL HEART DISEASE OF [place] CORONARY ARTERY W/O ANG PCTRS (12) Anemia Code(s): D64.9 - ANEMIA, UNSPECIFIED (13) Prostate cancer Code(s): C61 - MALIGNANT NEOPLASM OF PROSTATE (14) Chronic diastolic (congestive) heart failure Code(s): I50.32 - CHRONIC DIASTOLIC (CONGESTIVE) HEART FAILURE
[2018-02-06] MEDS: WARFARIN NA 5 MG TABLET (UD) PO SCH (18:12)
[2018-02-06] MEDS: ACETAMINOPHEN 325 MG TABLET (FP) PO PRN (20:33)
[2018-02-06] MEDS: DOCUSATE SODIUM 100 MG CAPSULE (FP) PO SCH (22:17)
[2018-02-06] MEDS: FERROUS SO4 325 MG TABLET (FP) PO SCH (22:17)
[2018-02-06] MEDS: MELATONIN 5 MG TABLETS PO SCH (22:18)
[2018-02-07] MEDS: oxyCODONE HCL 5 MG TABLET PO PRN ×3 (05:00→18:22)
[2018-02-07 07:24] LABS: BASO % 0.8 % (0-2.0); HEMOGLOBIN 8.8 GM/dL (11.7-16.9); LYMPH % 9.9 % (8-40); MCH 27.9 pg (25.7-33.7); MCHC 31.5 g/dl (32.0-35.9); MEAN CELL VOLUME 88.6 fl (80-96); MEAN PLT VOLUME 7.5 fl (7.5-11.1); NEUT % 71.3 % (42.8-82.8); PLATELET COUNT 374 K/MM3 (134-434); RBC 3.16 M/mm3 (4.00-5.60); RDW 18.3 % (11.9-15.9); WHITE BLOOD COUNT 8.5 K/mm3 (4.0-10.0)
[2018-02-07 08:10] LABS: INR 1.31 (0.83-1.09); PROTHROMBIN TIME (PATIENT) 15.5 SEC (9.7-13.0)
[2018-02-07 08:19] LABS: ALBUMIN 2.6 g/dl (3.4-5.0); ALK PHOS 171 U/L (45-117); ANION GAP 7 MMOL/L (8-16); BILIRUBIN,TOTAL 0.5 mg/dL (0.2-1); BLOOD UREA NITROGEN 27 mg/dL (7-18); CALCIUM 9.2 mg/dL (8.5-10.1); CHLORIDE 105 mmol/L (98-107); CO2 26 mmol/L (21-32); CREATININE 1.2 mg/dL (0.55-1.3); GLUCOSE,RANDOM 102 mg/dL (74-106); POTASSIUM 4.9 mmol/L (3.5-5.1); SGOT/AST 14 U/L (15-37); SGPT/ALT 14 U/L (13-61); SODIUM 138 mmol/L (136-145); TOT PROT 6.1 g/dl (6.4-8.2)
--- NOTE | 2018-02-07 09:13 | PN ---
Progress Note, Physician Chief Complaint: Pt A&Ox3;no chest pain or dyspnea. Knee pain reamins strong; relieved by oxycontin. No penile pain. History of Present Illness: The patient is a 77 year old white man (rajiv Owusu) with a significant past medical history of HTN, HLD, CAD (s/p stents), diastolic CHF,?PAF, prostate CA, urethral stricture (catheter in place) who presents to the ER with difficulty ranging his legs today. The patient states he noticed significant swelling, redness, and warmth to the bilateral knees. Patient reports he needed assistance to ambulate today, which is new for him. Patient states he was discharged from rehab four days ago and was ambulating appropriately until today. Patient has not eaten today as he is experiencing mild nausea. Patient denies taking any of his medications today. 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 Patient has his catheter in place and draining urine appropriately. Patient has a fever of 100.1 here in the ER. - Current Medication List Current Medications: Active Medications Acetaminophen (Tylenol -) 650 mg PO Q6H PRN PRN Reason: PAIN LEVEL 1-5 Last Admin: 02/06/18 20:33 Dose: 650 mg Bisacodyl (Dulcolax Suppository -) 10 mg RC DAILY PRN PRN Reason: CONSTIPATION Last Admin: 02/06/18 14:39 Dose: 10 mg Clopidogrel Bisulfate (Plavix -) 75 mg PO DAILY [facility] Last Admin: 02/06/18 10:50 Dose: 75 mg Clotrimazole (Lotrimin 1% Cream -) 1 applic TP BID [facility] Last Admin: 02/06/18 22:18 Dose: 1 applic Cyclobenzaprine HCl (Flexeril -) 5 mg PO DAILY [facility] Last Admin: 02/06/18 14:37 Dose: 5 mg Docusate Sodium (Colace -) 300 mg PO HS [facility] Last Admin: 02/06/18 22:17 Dose: 300 mg Enoxaparin Sodium (Lovenox -) 90 mg SQ BID [facility] Last Admin: 02/06/18 22:18 Dose: 90 mg Fentanyl (Sublimaze Injection -) 25 mcg IVPUSH Q5M PRN PRN Reason: PAIN-PACU ORDER X 4 DOSES ONLY Ferrous Sulfate (Feosol -) 325 mg PO BID [facility] Last Admin: 02/06/18 22:17 Dose: 325 mg Lidocaine HCl (Xylocaine 2% Jelly) 1 applic TP Q8H PRN PRN Reason: MODERATE PAIN Last Admin: 02/04/18 21:30 Dose: 1 applic Melatonin (Melatonin) 10 mg PO HS [facility] Last Admin: 02/06/18 22:18 Dose: 10 mg Oxycodone HCl (Roxicodone -) 5 mg PO Q4H PRN PRN Reason: PAIN LEVEL 7 - 10 Last Admin: 02/07/18 05:00 Dose: 5 mg Pantoprazole Sodium (Protonix -) 40 mg PO DAILY [facility] Last Admin: 02/06/18 10:49 Dose: 40 mg Polyethylene Glycol (Miralax (For Daily Use) -) 17 gm PO BID [facility] Last Admin: 02/06/18 22:28 Dose: Not Given Warfarin Sodium (Coumadin -) 5 mg PO DAILY@1800 [facility] Last Admin: 02/06/18 18:12 Dose: 5 mg - Objective Vital Signs: Vital Signs Temperature 98.3 F 02/07/18 05:38 Pulse Rate 75 02/07/18 05:38 Respiratory Rate 20 02/07/18 05:38 Blood Pressure 141/80 02/07/18 05:38 O2 Sat by Pulse Oximetry (%) 96 02/06/18 21:00 Constitutional: Yes: Anxious Eyes: Yes: WNL HENT: Yes: WNL Neck: Yes: WNL Cardiovascular: Yes: S1, S2 Respiratory: Yes: Regular Gastrointestinal: Yes: Soft ...Rectal Exam: Yes: Deferred Genitourinary: No: Anuria Musculoskeletal: Yes: Back Pain, Joint Stiffness, Muscle Weakness Extremities: Yes: Cool Edema: No Peripheral Pulses WNL: Yes Integumentary: Yes: WNL Neurological: Yes: Alert, Oriented, Weakness Psychiatric: Yes: Alert, Oriented Labs: CBC, BMP 02/07/18 06:30 02/07/18 06:30 INR, PTT INR 1.31 (0.83-1.09) H 02/07/18 06:30 Problem List - Problems (1) MRSA bacteremia Assessment/Plan: febrile episodes; initially leukocytotic; WBCs now WNL. off antibiotics. Code(s): R78.81 - BACTEREMIA (2) UTI (urinary tract infection) Code(s): N39.0 - URINARY TRACT INFECTION, SITE NOT SPECIFIED (3) Anxiety Code(s): F41.9 - ANXIETY DISORDER, UNSPECIFIED (4) Atrial fibrillation Assessment/Plan: 90 mg bid Lovenox until INR 2-3 with warfarin (presently 1.18). Code(s): I48.91 - UNSPECIFIED ATRIAL FIBRILLATION (5) Chronic lower back pain Assessment/Plan: spinal studies (xray) results noted; no metastases; no compression; mild lumbar spondylosis. Code(s): M54.5 - LOW BACK PAIN; G89.29 - OTHER CHRONIC PAIN (6) HTN (hypertension) Assessment/Plan: on lisinopril and beta blockers; on furosemide. Code(s): I10 - ESSENTIAL (PRIMARY) HYPERTENSION (7) Hematuria Assessment/Plan: clear-appearing urine in bag; f/u UA. Code(s): R31.9 - HEMATURIA, UNSPECIFIED Qualifiers: Hematuria type: gross Qualified Code(s): R31.0 - Gross hematuria (8) Hyperlipidemia Assessment/Plan: Total cholesterol 118 mg/dL; on atorvastatin 20 mg daily; keep LDL well below 70 mg/dL. Code(s): E78.5 - HYPERLIPIDEMIA, UNSPECIFIED (9) Obesity Code(s): E66.9 - OBESITY, UNSPECIFIED (10) Urinary retention Assessment/Plan: s/p TURP. Code(s): R33.9 - RETENTION OF URINE, UNSPECIFIED (11) ASHD (arteriosclerotic heart disease) Assessment/Plan: s/p CABG s/p coronary and LE angioplasty/stents. On clopidogrel (?allergy to ASA); statin; nitrate (Imdur). Code(s): I25.10 - ATHSCL HEART DISEASE OF [place] CORONARY ARTERY W/O ANG PCTRS (12) Anemia Code(s): D64.9 - ANEMIA, UNSPECIFIED (13) Prostate cancer Code(s): C61 - MALIGNANT NEOPLASM OF PROSTATE (14) Chronic diastolic (congestive) heart failure Code(s): I50.32 - CHRONIC DIASTOLIC (CONGESTIVE) HEART FAILURE
[2018-02-07] MEDS: CLOPIDOGREL BISULFATE 75 MG TABLET (FP) PO SCH (11:11)
[2018-02-07] MEDS: CYCLOBENZAPRINE HCL 10 MG TABLET (FP) PO SCH (11:11)
[2018-02-07] MEDS: PANTOPRAZOLE 40 MG TABLET (FP) PO SCH (11:12)
[2018-02-07] MEDS: FERROUS SO4 325 MG TABLET (FP) PO SCH ×2 (11:12→23:07)
[2018-02-07] MEDS: CLOTRIMAZOLE 1% CREAM 15 GM TUBE TP SCH ×2 (11:13→23:07)
[2018-02-07] MEDS: ENOXAPARIN NA (PORCINE) 100 MG/1 ML DISP.SYRIN SQ SCH ×2 (11:14→23:07)
[2018-02-07] MEDS: POLYETHYLENE GLYCOL 3350 119 GM BTL PO SCH ×2 (11:14→23:07)
--- NOTE | 2018-02-07 11:53 | PN ---
Progress Note, Physician History of Present Illness: stable no issues - Current Medication List Current Medications: Active Medications Acetaminophen (Tylenol -) 650 mg PO Q6H PRN PRN Reason: PAIN LEVEL 1-5 Last Admin: 02/06/18 20:33 Dose: 650 mg Bisacodyl (Dulcolax Suppository -) 10 mg RC DAILY PRN PRN Reason: CONSTIPATION Last Admin: 02/06/18 14:39 Dose: 10 mg Clopidogrel Bisulfate (Plavix -) 75 mg PO DAILY [facility] Last Admin: 02/07/18 11:11 Dose: 75 mg Clotrimazole (Lotrimin 1% Cream -) 1 applic TP BID [facility] Last Admin: 02/07/18 11:13 Dose: 1 applic Cyclobenzaprine HCl (Flexeril -) 5 mg PO DAILY [facility] Last Admin: 02/07/18 11:11 Dose: 5 mg Docusate Sodium (Colace -) 300 mg PO [facility] Last Admin: 02/06/18 22:17 Dose: 300 mg Enoxaparin Sodium (Lovenox -) 90 mg SQ BID [facility] Last Admin: 02/07/18 11:14 Dose: 90 mg Fentanyl (Sublimaze Injection -) 25 mcg IVPUSH Q5M PRN PRN Reason: PAIN-PACU ORDER X 4 DOSES ONLY Ferrous Sulfate (Feosol -) 325 mg PO BID [facility] Last Admin: 02/07/18 11:12 Dose: 325 mg Lidocaine HCl (Xylocaine 2% Jelly) 1 applic TP Q8H PRN PRN Reason: MODERATE PAIN Last Admin: 02/04/18 21:30 Dose: 1 applic Melatonin (Melatonin) 10 mg PO [facility] Last Admin: 02/06/18 22:18 Dose: 10 mg Oxycodone HCl (Roxicodone -) 5 mg PO Q4H PRN PRN Reason: PAIN LEVEL 7 - 10 Last Admin: 02/07/18 11:12 Dose: 5 mg Pantoprazole Sodium (Protonix -) 40 mg PO DAILY [facility] Last Admin: 02/07/18 11:12 Dose: 40 mg Polyethylene Glycol (Miralax (For Daily Use) -) 17 gm PO BID [facility] Last Admin: 02/07/18 11:14 Dose: 17 gm Warfarin Sodium (Coumadin -) 5 mg PO DAILY@1800 [facility] Last Admin: 02/06/18 18:12 Dose: 5 mg - Objective Vital Signs: Vital Signs Temperature 98.3 F 02/07/18 05:38 Pulse Rate 75 02/07/18 05:38 Respiratory Rate 20 02/07/18 05:38 Blood Pressure 141/80 02/07/18 05:38 O2 Sat by Pulse Oximetry (%) 96 02/06/18 21:00 Constitutional: Yes: No Distress, Calm Cardiovascular: Yes: Pulse Irregular Respiratory: Yes: Regular, CTA Bilaterally Gastrointestinal: Yes: Normal Bowel Sounds, Soft Genitourinary: Yes: Ban[place]as Present Musculoskeletal: Yes: WNL Extremities: Yes: WNL Neurological: Yes: Alert, Oriented Psychiatric: Yes: Alert, Oriented Labs: CBC, BMP 02/07/18 06:30 02/07/18 06:30 INR, PTT INR 1.31 (0.83-1.09) H 02/07/18 06:30 Assessment/Plan patient with multiple medical problems coming with weakness and knee joint swelling Problem List - Problems (1) Fever Code(s): R50.9 - FEVER, UNSPECIFIED (2) Supratherapeutic INR Code(s): R79.1 - ABNORMAL COAGULATION PROFILE (3) Anxiety Code(s): F41.9 - ANXIETY DISORDER, UNSPECIFIED (4) Atrial fibrillation Code(s): I48.91 - UNSPECIFIED ATRIAL FIBRILLATION (5) Chest pain Code(s): R07.9 - CHEST PAIN, UNSPECIFIED Qualifiers: Chest pain type: unspecified Qualified Code(s): R07.9 - Chest pain, unspecified (6) Banegas catheter in place Code(s): Z92.89 - PERSONAL HISTORY OF OTHER MEDICAL TREATMENT (7) HTN (hypertension) Code(s): I10 - ESSENTIAL (PRIMARY) HYPERTENSION (8) Hematuria Code(s): R31.9 - HEMATURIA, UNSPECIFIED Qualifiers: Hematuria type: gross Qualified Code(s): R31.0 - Gross hematuria (9) Hx of CABG Code(s): Z95.1 - PRESENCE OF AORTOCORONARY BYPASS GRAFT (10) Hyperlipidemia Code(s): E78.5 - HYPERLIPIDEMIA, UNSPECIFIED hematuria Assessment/Plan continue current mgmt continue monitoring monitor off of abx now rest as per the team final plan of catheter
--- NOTE | 2018-02-07 12:45 | PN ---
Progress Note (short form) - Note Progress Note: Pt examined no hematuria s/p surgery bishop clear no distress vitals stable S s2 irregular Lungs decreased Abd- soft, NT No edema PLAN MRSA- blood cultures repeated negative restarted Plavix,Coumadin - continue Lovenox as INR subtherapeutic monitor for bleeding-- bishop clear today Check CBC PT eval 'will need STR continue with meds IV Morphine PRN Problem List - Problems (1) Supratherapeutic INR Code(s): R79.1 - ABNORMAL COAGULATION PROFILE (2) Anxiety Code(s): F41.9 - ANXIETY DISORDER, UNSPECIFIED (3) Atrial fibrillation Code(s): I48.91 - UNSPECIFIED ATRIAL FIBRILLATION (4) Chest pain Code(s): R07.9 - CHEST PAIN, UNSPECIFIED Qualifiers: Chest pain type: unspecified Qualified Code(s): R07.9 - Chest pain, unspecified (5) HTN (hypertension) Code(s): I10 - ESSENTIAL (PRIMARY) HYPERTENSION (6) Hematuria Code(s): R31.9 - HEMATURIA, UNSPECIFIED Qualifiers: Hematuria type: gross Qualified Code(s): R31.0 - Gross hematuria (7) Hx of CABG Code(s): Z95.1 - PRESENCE OF AORTOCORONARY BYPASS GRAFT (8) Hyperlipidemia Code(s): E78.5 - HYPERLIPIDEMIA, UNSPECIFIED (9) MRSA bacteremia Code(s): R78.81 - BACTEREMIA (10) UTI (urinary tract infection) Code(s): N39.0 - URINARY TRACT INFECTION, SITE NOT SPECIFIED
--- NOTE | 2018-02-07 18:03 | EKG ---
Test Reason : Blood Pressure : / mmHG Vent. Rate : 086 BPM Atrial Rate : 086 BPM P-R Int : 190 ms QRS Dur : 120 ms QT Int : 378 ms P-R-T Axes : 027 037 106 degrees QTc Int : 452 ms SINUS RHYTHM WITH FREQUENT and consecutive PREMATURE VENTRICULAR COMPLEXES POSSIBLE LEFT ATRIAL ENLARGEMENT LOW VOLTAGE QRS INCOMPLETE LEFT BUNDLE BRANCH BLOCK NONSPECIFIC ST AND T WAVE ABNORMALITY ABNORMAL ECG WHEN COMPARED WITH ECG OF 31-JAN-2018 10:12, NO SIGNIFICANT CHANGE WAS FOUND Confirmed by DARLING ORTIZ MD ([id number]) on 02/07/2018 6:02:28 PM Referred By: Sarah GRIER Confirmed By:DARLING ORTIZ MD
[2018-02-07] MEDS: ACETAMINOPHEN 325 MG TABLET (FP) PO PRN (18:22)
[2018-02-07] MEDS: WARFARIN NA 5 MG TABLET (UD) PO SCH (18:23)
[2018-02-07] MEDS: DOCUSATE SODIUM 100 MG CAPSULE (FP) PO SCH (23:06)
[2018-02-07] MEDS: MELATONIN 5 MG TABLETS PO SCH (23:07)
[2018-02-08] MEDS: oxyCODONE HCL 5 MG TABLET PO PRN ×3 (00:45→09:34)
[2018-02-08] MEDS ORDERED: PT OWN MED DRAWER 7, Y5N ONE ×3 (07:24→14:33)
[2018-02-08 08:00] LABS: INR 1.59 (0.83-1.09); PROTHROMBIN TIME (PATIENT) 18.9 SEC (9.7-13.0)
[2018-02-08] MEDS: CYCLOBENZAPRINE HCL 10 MG TABLET (FP) PO SCH (09:33)
[2018-02-08] MEDS: FERROUS SO4 325 MG TABLET (FP) PO SCH ×2 (09:33→22:25)
[2018-02-08] MEDS: CLOPIDOGREL BISULFATE 75 MG TABLET (FP) PO SCH (09:33)
[2018-02-08] MEDS: PANTOPRAZOLE 40 MG TABLET (FP) PO SCH (09:33)
[2018-02-08] MEDS: ENOXAPARIN NA (PORCINE) 100 MG/1 ML DISP.SYRIN SQ SCH ×2 (09:34→22:23)
[2018-02-08] MEDS: POLYETHYLENE GLYCOL 3350 119 GM BTL PO SCH ×2 (09:36→23:06)
--- NOTE | 2018-02-08 11:40 | PN ---
Progress Note (short form) - Note Progress Note: Pt examined no hematuria s/p surgery bishop clear c/o pain in back of ankles Vital Signs - 24 hr 02/07/18 02/07/18 02/07/18 18:54 21:00 22:00 Temperature 98.5 F 98.3 F Pulse Rate 61 64 Respiratory 20 20 20 Rate Blood Pressure 125/70 133/56 L O2 Sat by Pulse 100 Oximetry (%) 02/08/18 02/08/18 02/08/18 06:00 09:00 09:41 Temperature 97.7 F 97.6 F Pulse Rate 67 80 Respiratory 19 18 Rate Blood Pressure 121/56 L 140/78 O2 Sat by Pulse 98 Oximetry (%) 02/08/18 14:34 Temperature 98.3 F Pulse Rate 58 L Respiratory 18 Rate Blood Pressure 113/55 L O2 Sat by Pulse Oximetry (%) Current Medications Generic Name Dose Route Start Last Admin Trade Name Freq PRN Reason Stop Dose Admin Acetaminophen 650 mg 02/06/18 20:20 02/07/18 18:22 Tylenol - PO 650 mg Q6H PRN Administration PAIN LEVEL 1-5 Bisacodyl 10 mg 02/06/18 12:33 02/06/18 14:39 Dulcolax Suppository - RC 10 mg DAILY PRN Administration CONSTIPATION Clopidogrel Bisulfate 75 mg 02/05/18 10:00 02/08/18 09:33 Plavix - PO 75 mg DAILY [facility] Administration Clotrimazole 1 applic 02/06/18 12:45 02/08/18 14:37 Lotrimin 1% Cream - TP 1 applic BID [facility] Administration Cyclobenzaprine HCl 5 mg 02/06/18 12:45 02/08/18 09:33 Flexeril - PO 5 mg DAILY [facility] Administration Docusate Sodium 300 mg 02/05/18 22:00 02/07/18 23:06 Colace - PO 300 mg HS [facility] Administration Enoxaparin Sodium 90 mg 02/04/18 22:00 02/08/18 09:34 Lovenox - SQ 90 mg BID [facility] Administration Fentanyl 25 mcg 02/03/18 15:31 Sublimaze Injection - IVPUSH Q5M PRN PAIN-PACU ORDER X 4 DOSES ONLY Ferrous Sulfate 325 mg 02/06/18 22:00 02/08/18 09:33 Feosol - PO 325 mg BID [facility] Administration Lidocaine HCl 1 applic 02/03/18 23:28 02/04/18 21:30 Xylocaine 2% Jelly TP 1 applic Q8H PRN Administration MODERATE PAIN Melatonin 10 mg 02/03/18 22:00 02/07/18 23:07 Melatonin PO 10 mg HS [facility] Administration Oxycodone HCl 5 mg 02/06/18 12:33 02/08/18 09:34 Roxicodone - PO 5 mg Q4H PRN Administration PAIN LEVEL 7 - 10 Pantoprazole Sodium 40 mg 02/04/18 10:00 02/08/18 09:33 Protonix - PO 40 mg DAILY [facility] Administration Polyethylene Glycol 17 gm 02/05/18 22:00 02/08/18 09:36 Miralax (For Daily Use) - PO 17 gm BID [facility] Administration Warfarin Sodium 5 mg 02/05/18 18:00 02/08/18 17:12 Coumadin - PO 5 mg DAILY@1800 [facility] Administration Laboratory Results - last 24 hr 02/08/18 06:00 PT with INR 18.90 H INR 1.59 H S s2 irregular Lungs decreased Abd- soft, NT No edema achiles tendon is tender B/L PLAN start Medrol for tendinitis Ortho follow up No injections to knees - pt does not have much pain , also risk of bleeding is high- continue pain meds and Physical therapy restarted Plavix,Coumadin - continue Lovenox as INR subtherapeutic monitor for bleeding-- bishop clear today Check CBC PT eval 'will need STR continue with meds off antibiotics Problem List - Problems (1) Supratherapeutic INR Code(s): R79.1 - ABNORMAL COAGULATION PROFILE (2) Anxiety Code(s): F41.9 - ANXIETY DISORDER, UNSPECIFIED (3) Atrial fibrillation Code(s): I48.91 - UNSPECIFIED ATRIAL FIBRILLATION (4) Chest pain Code(s): R07.9 - CHEST PAIN, UNSPECIFIED Qualifiers: Chest pain type: unspecified Qualified Code(s): R07.9 - Chest pain, unspecified (5) HTN (hypertension) Code(s): I10 - ESSENTIAL (PRIMARY) HYPERTENSION (6) Hematuria Code(s): R31.9 - HEMATURIA, UNSPECIFIED Qualifiers: Hematuria type: gross Qualified Code(s): R31.0 - Gross hematuria (7) Hx of CABG Code(s): Z95.1 - PRESENCE OF AORTOCORONARY BYPASS GRAFT (8) Hyperlipidemia Code(s): E78.5 - HYPERLIPIDEMIA, UNSPECIFIED (9) MRSA bacteremia Code(s): R78.81 - BACTEREMIA (10) UTI (urinary tract infection) Code(s): N39.0 - URINARY TRACT INFECTION, SITE NOT SPECIFIED
[2018-02-08] MEDS ORDERED: methylPREDNISolone 4 MG TABLET PO ONE (12:12)
--- NOTE | 2018-02-08 13:20 | PN ---
Progress Note, Physician History of Present Illness: patient stable pain main issue - Current Medication List Current Medications: Active Medications Acetaminophen (Tylenol -) 650 mg PO Q6H PRN PRN Reason: PAIN LEVEL 1-5 Last Admin: 02/07/18 18:22 Dose: 650 mg Bisacodyl (Dulcolax Suppository -) 10 mg RC DAILY PRN PRN Reason: CONSTIPATION Last Admin: 02/06/18 14:39 Dose: 10 mg Clopidogrel Bisulfate (Plavix -) 75 mg PO DAILY [facility] Last Admin: 02/08/18 09:33 Dose: 75 mg Clotrimazole (Lotrimin 1% Cream -) 1 applic TP BID [facility] Last Admin: 02/07/18 23:07 Dose: 1 applic Cyclobenzaprine HCl (Flexeril -) 5 mg PO DAILY [facility] Last Admin: 02/08/18 09:33 Dose: 5 mg Docusate Sodium (Colace -) 300 mg PO [facility] Last Admin: 02/07/18 23:06 Dose: 300 mg Enoxaparin Sodium (Lovenox -) 90 mg SQ BID [facility] Last Admin: 02/08/18 09:34 Dose: 90 mg Fentanyl (Sublimaze Injection -) 25 mcg IVPUSH Q5M PRN PRN Reason: PAIN-PACU ORDER X 4 DOSES ONLY Ferrous Sulfate (Feosol -) 325 mg PO BID [facility] Last Admin: 02/08/18 09:33 Dose: 325 mg Lidocaine HCl (Xylocaine 2% Jelly) 1 applic TP Q8H PRN PRN Reason: MODERATE PAIN Last Admin: 02/04/18 21:30 Dose: 1 applic Melatonin (Melatonin) 10 mg PO [facility] Last Admin: 02/07/18 23:07 Dose: 10 mg Methylprednisolone (Medrol -) 16 mg PO ONCE ONE Stop: 02/08/18 12:13 Oxycodone HCl (Roxicodone -) 5 mg PO Q4H PRN PRN Reason: PAIN LEVEL 7 - 10 Last Admin: 02/08/18 09:34 Dose: 5 mg Pantoprazole Sodium (Protonix -) 40 mg PO DAILY [facility] Last Admin: 02/08/18 09:33 Dose: 40 mg Polyethylene Glycol (Miralax (For Daily Use) -) 17 gm PO BID [facility] Last Admin: 02/08/18 09:36 Dose: 17 gm Warfarin Sodium (Coumadin -) 5 mg PO DAILY@1800 [facility] Last Admin: 02/07/18 18:23 Dose: 5 mg - Objective Vital Signs: Vital Signs Temperature 97.6 F 02/08/18 09:41 Pulse Rate 80 02/08/18 09:41 Respiratory Rate 18 02/08/18 09:41 Blood Pressure 140/78 02/08/18 09:41 O2 Sat by Pulse Oximetry (%) 98 02/08/18 09:00 Constitutional: Yes: No Distress, Calm Cardiovascular: Yes: Pulse Irregular, S1, S2 Respiratory: Yes: Regular, CTA Bilaterally Gastrointestinal: Yes: Normal Bowel Sounds, Soft Musculoskeletal: Yes: WNL Extremities: Yes: Other Neurological: Yes: Alert, Oriented Psychiatric: Yes: Alert, Oriented Labs: CBC, BMP 02/07/18 06:30 02/07/18 06:30 INR, PTT INR 1.59 (0.83-1.09) H 02/08/18 06:00 Assessment/Plan patient with multiple medical problems coming with weakness and knee joint swelling Problem List - Problems (1) Fever Code(s): R50.9 - FEVER, UNSPECIFIED (2) Supratherapeutic INR Code(s): R79.1 - ABNORMAL COAGULATION PROFILE (3) Anxiety Code(s): F41.9 - ANXIETY DISORDER, UNSPECIFIED (4) Atrial fibrillation Code(s): I48.91 - UNSPECIFIED ATRIAL FIBRILLATION (5) Chest pain Code(s): R07.9 - CHEST PAIN, UNSPECIFIED Qualifiers: Chest pain type: unspecified Qualified Code(s): R07.9 - Chest pain, unspecified (6) Banegas catheter in place Code(s): Z92.89 - PERSONAL HISTORY OF OTHER MEDICAL TREATMENT (7) HTN (hypertension) Code(s): I10 - ESSENTIAL (PRIMARY) HYPERTENSION (8) Hematuria Code(s): R31.9 - HEMATURIA, UNSPECIFIED Qualifiers: Hematuria type: gross Qualified Code(s): R31.0 - Gross hematuria (9) Hx of CABG Code(s): Z95.1 - PRESENCE OF AORTOCORONARY BYPASS GRAFT (10) Hyperlipidemia Code(s): E78.5 - HYPERLIPIDEMIA, UNSPECIFIED hematuria Assessment/Plan continue current mgmt continue monitoring monitor off of abx now rest as per the team final plan of catheter probable catheter removal on friday
--- NOTE | 2018-02-08 14:19 | PN ---
Progress Note (short form) - Note Progress Note: Pt seen and examined. He states that both knees feel dramatically better than 1- 2 weeks ago. He has less swelling, better ROM, no effusions, overall much improved. I agree, today his knees are not swollen, no erythema, mildly tender. He states he has pain in the acilles tendon area of both ankles. Physical examination is normal except that both achilles are very tight, from non ambulating and lying in bed all day. I recommend P.T. for aggressive stretching of both ankle, achilles tendons. <Wes Valenzuela - Last Filed: 02/08/18 14:16> - Note Progress Note: UROLOGY NOTE. pt. is s/p tuvp,bishop patent ,urine is clear, no clots Plan- d/c bishop in am and give tov reoeat bladder scan at 1pm. <Justin Fink - Last Filed: 02/08/18 22:24>
[2018-02-08] MEDS: CLOTRIMAZOLE 1% CREAM 15 GM TUBE TP SCH ×2 (14:37→22:24)
[2018-02-08] MEDS: WARFARIN NA 5 MG TABLET (UD) PO SCH (17:12)
[2018-02-08] MEDS: MELATONIN 5 MG TABLETS PO SCH (22:23)
[2018-02-08] MEDS: ACETAMINOPHEN 325 MG TABLET (FP) PO PRN (22:23)
[2018-02-08] MEDS: DOCUSATE SODIUM 100 MG CAPSULE (FP) PO SCH (22:24)
--- NOTE | 2018-02-09 08:50 | PN ---
Progress Note, Physician History of Present Illness: he patient is a 77 year old male with a significant past medical history of HTN , HLD, CAD (s/p stents), prostate CA, urethral stricture (catheter in place) who presents to the ER with difficulty ranging his legs today. The patient states he noticed significant swelling, redness, and warmth to the bilateral knees. Patient reports he needed assistance to ambulate today, which is new for him. Patient states he was discharged from rehab four days ago and was ambulating appropriately until today. Patient has not eaten today as he is experiencing mild nausea. Patient denies taking any of his medications today. 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 Patient has his catheter in place and draining urine appropriately. Patient has a fever of 100.1 here in the ER. The patient denies chest pain, shortness of breath, headache, and dizziness. Denies chills, vomit, diarrhea, and constipation. Allergies: strawberry, pepper, iohexol Past surgical history: stents Social history: No reported alcohol, drug, or cigarette use. H cabg lithotripsy prostate seeds Ongoing medical problems Afib diagnosed at the hospital during [facility] [employer] [employer] 08/2015 and has been on coumadin since then 2015 CAD Coronary artery bypass graft SANTIAGO of left SFA August 11, 2014 Dr. Blanton SANTIAGO of left PDA July 07, 2014 Dr. Blanton dizziness Hyperlipidemia Hypertension Negative MIBI stress test 2013 [place] [facility] NSVT Pauses PCI SANTIAGO of p LCx March 30, 2015 Dr. Blanton PCI LCx 08/17/12 [facility] PCI LCx 07/07/14 Dr. Blanton [facility] [employer]/stent right SFA 526/16 DR BLANTON Right SFA 100 occlusion July 07, 2014 Dr. Blanton s/p [employer] drug elluting balloon L SFA 2015 s/p [employer] left SFA 09/25/17 for left foot ulcer s/p urethral stricture after cystoscopy and urethrotomy the patient went into septic shock and was treated with antibiotics and was stabilized. October 2017 - Current Medication List Current Medications: Active Medications Acetaminophen (Tylenol -) 650 mg PO Q6H PRN PRN Reason: PAIN LEVEL 1-5 Last Admin: 02/08/18 22:23 Dose: 650 mg Bisacodyl (Dulcolax Suppository -) 10 mg RC DAILY PRN PRN Reason: CONSTIPATION Last Admin: 02/06/18 14:39 Dose: 10 mg Clopidogrel Bisulfate (Plavix -) 75 mg PO DAILY [facility] Last Admin: 02/08/18 09:33 Dose: 75 mg Clotrimazole (Lotrimin 1% Cream -) 1 applic TP BID [facility] Last Admin: 02/08/18 22:24 Dose: 1 applic Cyclobenzaprine HCl (Flexeril -) 5 mg PO DAILY [facility] Last Admin: 02/08/18 09:33 Dose: 5 mg Docusate Sodium (Colace -) 300 mg PO HS [facility] Last Admin: 02/08/18 22:24 Dose: 300 mg Enoxaparin Sodium (Lovenox -) 90 mg SQ BID [facility] Last Admin: 02/08/18 22:23 Dose: 90 mg Fentanyl (Sublimaze Injection -) 25 mcg IVPUSH Q5M PRN PRN Reason: PAIN-PACU ORDER X 4 DOSES ONLY Ferrous Sulfate (Feosol -) 325 mg PO BID [facility] Last Admin: 02/08/18 22:25 Dose: 325 mg Lidocaine HCl (Xylocaine 2% Jelly) 1 applic TP Q8H PRN PRN Reason: MODERATE PAIN Last Admin: 02/04/18 21:30 Dose: 1 applic Melatonin (Melatonin) 10 mg PO HS [facility] Last Admin: 02/08/18 22:23 Dose: 10 mg Oxycodone HCl (Roxicodone -) 5 mg PO Q4H PRN PRN Reason: PAIN LEVEL 7 - 10 Last Admin: 02/08/18 09:34 Dose: 5 mg Pantoprazole Sodium (Protonix -) 40 mg PO DAILY [facility] Last Admin: 02/08/18 09:33 Dose: 40 mg Polyethylene Glycol (Miralax (For Daily Use) -) 17 gm PO BID [facility] Last Admin: 02/08/18 23:06 Dose: Not Given Warfarin Sodium (Coumadin -) 5 mg PO DAILY@1800 [facility] Last Admin: 02/08/18 17:12 Dose: 5 mg - Objective Vital Signs: Vital Signs Temperature 98.2 F 02/09/18 07:41 Pulse Rate 74 02/09/18 07:41 Respiratory Rate 18 02/09/18 07:41 Blood Pressure 143/83 02/09/18 07:41 O2 Sat by Pulse Oximetry (%) 98 02/08/18 21:00 Eyes: Yes: WNL, Conjunctiva Clear, EOM Intact HENT: Yes: WNL, Atraumatic, Normocephalic Neck: Yes: WNL, Supple, Trachea Midline Cardiovascular: Yes: WNL, Regular Rate and Rhythm Respiratory: Yes: WNL, Regular, CTA Bilaterally Gastrointestinal: Yes: WNL, Normal Bowel Sounds Genitourinary: Yes: WNL Musculoskeletal: Yes: WNL Extremities: Yes: WNL Edema: No Integumentary: Yes: WNL Neurological: Yes: WNL, Alert, Oriented ...Motor Strength: WNL Psychiatric: Yes: WNL Labs: CBC, BMP 02/07/18 06:30 02/07/18 06:30 INR, PTT INR 1.59 (0.83-1.09) H 02/08/18 06:00 Assessment/Plan - Problems (1) MRSA bacteremia Assessment/Plan: febrile episodes; initially leukocytotic; WBCs now WNL. off antibiotics. Code(s): R78.81 - BACTEREMIA (2) UTI (urinary tract infection) Code(s): N39.0 - URINARY TRACT INFECTION, SITE NOT SPECIFIED (3) Anxiety Code(s): F41.9 - ANXIETY DISORDER, UNSPECIFIED (4) Atrial fibrillation Assessment/Plan: 90 mg bid Lovenox until INR 2-3 with warfarin (presently 1.18). Code(s): I48.91 - UNSPECIFIED ATRIAL FIBRILLATION (5) Chronic lower back pain Assessment/Plan: spinal studies (xray) results noted; no metastases; no compression; mild lumbar spondylosis. Code(s): M54.5 - LOW BACK PAIN; G89.29 - OTHER CHRONIC PAIN (6) HTN (hypertension) Assessment/Plan: on lisinopril and beta blockers; on furosemide. Code(s): I10 - ESSENTIAL (PRIMARY) HYPERTENSION (7) Hematuria Assessment/Plan: clear-appearing urine in bag; f/u UA. Code(s): R31.9 - HEMATURIA, UNSPECIFIED Qualifiers: Hematuria type: gross Qualified Code(s): R31.0 - Gross hematuria (8) Hyperlipidemia Assessment/Plan: Total cholesterol 118 mg/dL; on atorvastatin 20 mg daily; keep LDL well below 70 mg/dL. Code(s): E78.5 - HYPERLIPIDEMIA, UNSPECIFIED (9) Obesity Code(s): E66.9 - OBESITY, UNSPECIFIED (10) Urinary retention Assessment/Plan: s/p TURP. Code(s): R33.9 - RETENTION OF URINE, UNSPECIFIED (11) ASHD (arteriosclerotic heart disease) Assessment/Plan: s/p CABG s/p coronary and LE angioplasty/stents. On clopidogrel (?allergy to ASA); statin; nitrate (Imdur). Code(s): I25.10 - ATHSCL HEART DISEASE OF [place] CORONARY ARTERY W/O ANG PCTRS (12) Anemia Code(s): D64.9 - ANEMIA, UNSPECIFIED (13) Prostate cancer Code(s): C61 - MALIGNANT NEOPLASM OF PROSTATE (14) Chronic diastolic (congestive) heart failure Code(s): I50.32 - CHRONIC DIASTOLIC (CONGESTIVE) HEART FAILURE
[2018-02-09 08:57] LABS: INR 2.06 (0.83-1.09); PROTHROMBIN TIME (PATIENT) 24.5 SEC (9.7-13.0)
--- NOTE | 2018-02-09 11:03 | PN ---
Progress Note (short form) - Note Progress Note: pt seen/ examined chart reviewed comfortable pain ok anxious about bishop-- wants to see urology Vital Signs Temp 98.2 F 02/09/18 07:41 Pulse 74 02/09/18 07:41 Resp 18 02/09/18 07:41 BP 143/83 02/09/18 07:41 Pulse Ox 98 02/08/18 21:00 Intake & Output 02/08/18 02/08/18 02/09/18 11:59 23:59 11:59 Intake Total 1300 Output Total 460 1000 500 Balance -460 300 -500 Intake: Oral 1300 Output: Urine 460 1000 500 Bishop 460 1000 500 Other: Voiding Method Indwelling Catheter Indwelling Catheter Bowel Movement No No No Active Medications Acetaminophen (Tylenol -) 650 mg PO Q6H PRN PRN Reason: PAIN LEVEL 1-5 Last Admin: 02/08/18 22:23 Dose: 650 mg Bisacodyl (Dulcolax Suppository -) 10 mg RC DAILY PRN PRN Reason: CONSTIPATION Last Admin: 02/06/18 14:39 Dose: 10 mg Clopidogrel Bisulfate (Plavix -) 75 mg PO DAILY [facility] Last Admin: 02/08/18 09:33 Dose: 75 mg Clotrimazole (Lotrimin 1% Cream -) 1 applic TP BID [facility] Last Admin: 02/08/18 22:24 Dose: 1 applic Cyclobenzaprine HCl (Flexeril -) 5 mg PO DAILY [facility] Last Admin: 02/08/18 09:33 Dose: 5 mg Docusate Sodium (Colace -) 300 mg PO HS [facility] Last Admin: 02/08/18 22:24 Dose: 300 mg Fentanyl (Sublimaze Injection -) 25 mcg IVPUSH Q5M PRN PRN Reason: PAIN-PACU ORDER X 4 DOSES ONLY Ferrous Sulfate (Feosol -) 325 mg PO BID [facility] Last Admin: 02/08/18 22:25 Dose: 325 mg Lidocaine HCl (Xylocaine 2% Jelly) 1 applic TP Q8H PRN PRN Reason: MODERATE PAIN Last Admin: 02/04/18 21:30 Dose: 1 applic Melatonin (Melatonin) 10 mg PO [facility] Last Admin: 02/08/18 22:23 Dose: 10 mg Oxycodone HCl (Roxicodone -) 5 mg PO Q4H PRN PRN Reason: PAIN LEVEL 7 - 10 Last Admin: 02/08/18 09:34 Dose: 5 mg Pantoprazole Sodium (Protonix -) 40 mg PO DAILY [facility] Last Admin: 02/08/18 09:33 Dose: 40 mg Polyethylene Glycol (Miralax (For Daily Use) -) 17 gm PO BID [facility] Last Admin: 02/08/18 23:06 Dose: Not Given Warfarin Sodium (Coumadin -) 5 mg PO DAILY@1800 [facility] Last Admin: 02/08/18 17:12 Dose: 5 mg CBC, BMP 02/07/18 06:30 02/07/18 06:30 INR, PTT INR 2.06 (0.83-1.09) H 02/09/18 06:40 Physical Exam S1 s2 irregular Lungs decreased Abd- soft, NT No edema bishop + PLAN stable continue present care Ankle better PT 'will need STR continue with meds d/c lovenox off antibiotics I discussed with Dr. Garcia -- Will come to see him later will follow Discussed with nursing staff/ caseworker D/c planning in progress -- Anticipate tomorrow if no Catheter issues Problem List - Problems (1) Anemia Code(s): D64.9 - ANEMIA, UNSPECIFIED (2) MRSA bacteremia Code(s): R78.81 - BACTEREMIA (3) Atrial fibrillation Code(s): I48.91 - UNSPECIFIED ATRIAL FIBRILLATION (4) HTN (hypertension) Code(s): I10 - ESSENTIAL (PRIMARY) HYPERTENSION
[2018-02-09] MEDS ORDERED: PT OWN MED DRAWER 7, Y5N ONE ×2 (11:21→20:39)
[2018-02-09] MEDS: CYCLOBENZAPRINE HCL 10 MG TABLET (FP) PO SCH (11:26)
[2018-02-09] MEDS: FERROUS SO4 325 MG TABLET (FP) PO SCH ×2 (11:26→21:11)
[2018-02-09] MEDS: CLOTRIMAZOLE 1% CREAM 15 GM TUBE TP SCH ×2 (11:26→21:11)
[2018-02-09] MEDS: oxyCODONE HCL 5 MG TABLET PO PRN ×2 (11:27→19:50)
[2018-02-09] MEDS: PANTOPRAZOLE 40 MG TABLET (FP) PO SCH (11:27)
[2018-02-09] MEDS: CLOPIDOGREL BISULFATE 75 MG TABLET (FP) PO SCH (11:27)
[2018-02-09] MEDS: POLYETHYLENE GLYCOL 3350 119 GM BTL PO SCH ×2 (11:29→21:11)
[2018-02-09] MEDS: ENOXAPARIN NA (PORCINE) 100 MG/1 ML DISP.SYRIN SQ SCH (11:30)
--- NOTE | 2018-02-09 11:48 | PN ---
Progress Note, Physician - Current Medication List Current Medications: Active Medications Acetaminophen (Tylenol -) 650 mg PO Q6H PRN PRN Reason: PAIN LEVEL 1-5 Last Admin: 02/08/18 22:23 Dose: 650 mg Bisacodyl (Dulcolax Suppository -) 10 mg RC DAILY PRN PRN Reason: CONSTIPATION Last Admin: 02/06/18 14:39 Dose: 10 mg Clopidogrel Bisulfate (Plavix -) 75 mg PO DAILY [facility] Last Admin: 02/09/18 11:27 Dose: 75 mg Clotrimazole (Lotrimin 1% Cream -) 1 applic TP BID [facility] Last Admin: 02/09/18 11:26 Dose: 1 applic Cyclobenzaprine HCl (Flexeril -) 5 mg PO DAILY [facility] Last Admin: 02/09/18 11:26 Dose: 5 mg Docusate Sodium (Colace -) 300 mg PO HS [facility] Last Admin: 02/08/18 22:24 Dose: 300 mg Fentanyl (Sublimaze Injection -) 25 mcg IVPUSH Q5M PRN PRN Reason: PAIN-PACU ORDER X 4 DOSES ONLY Ferrous Sulfate (Feosol -) 325 mg PO BID [facility] Last Admin: 02/09/18 11:26 Dose: 325 mg Lidocaine HCl (Xylocaine 2% Jelly) 1 applic TP Q8H PRN PRN Reason: MODERATE PAIN Last Admin: 02/04/18 21:30 Dose: 1 applic Melatonin (Melatonin) 10 mg PO HS [facility] Last Admin: 02/08/18 22:23 Dose: 10 mg Oxycodone HCl (Roxicodone -) 5 mg PO Q4H PRN PRN Reason: PAIN LEVEL 7 - 10 Last Admin: 02/09/18 11:27 Dose: 5 mg Pantoprazole Sodium (Protonix -) 40 mg PO DAILY [facility] Last Admin: 02/09/18 11:27 Dose: 40 mg Polyethylene Glycol (Miralax (For Daily Use) -) 17 gm PO BID [facility] Last Admin: 02/09/18 11:29 Dose: 17 gm Warfarin Sodium (Coumadin -) 5 mg PO DAILY@1800 [facility] Last Admin: 02/08/18 17:12 Dose: 5 mg - Objective Vital Signs: Vital Signs Temperature 98.2 F 02/09/18 07:41 Pulse Rate 74 02/09/18 07:41 Respiratory Rate 18 02/09/18 07:41 Blood Pressure 143/83 02/09/18 07:41 O2 Sat by Pulse Oximetry (%) 98 02/08/18 21:00 Labs: CBC, BMP 02/07/18 06:30 02/07/18 06:30 INR, PTT INR 2.06 (0.83-1.09) H 02/09/18 06:40
--- NOTE | 2018-02-09 16:09 | PN ---
Progress Note (short form) - Note Progress Note: Pt post op TUVP with indwelling bishop. The urine is clear and pt. appears to be comfortable. Plan: Will discontinue bishop in the morning. Will start on urecholine 50mg qid from today Will see his voiding pattern and decide about discharge. Thank you Dr. Garcia
[2018-02-09] MEDS: WARFARIN NA 5 MG TABLET (UD) PO SCH (17:19)
[2018-02-09] MEDS: BETHANECHOL CHLORIDE 25 MG TABLET PO SCH ×2 (17:19→21:11)
[2018-02-09] MEDS: DOCUSATE SODIUM 100 MG CAPSULE (FP) PO SCH (21:10)
[2018-02-09] MEDS: MELATONIN 5 MG TABLETS PO SCH (21:11)
[2018-02-10] MEDS: oxyCODONE HCL 5 MG TABLET PO PRN ×4 (00:42→22:07)
[2018-02-10 09:24] LABS: INR 2.51 (0.83-1.09)
[2018-02-10 09:28] LABS: PROTHROMBIN TIME (PATIENT) 29.9 SEC (9.7-13.0)
[2018-02-10] MEDS: FERROUS SO4 325 MG TABLET (FP) PO SCH ×2 (10:26→22:06)
[2018-02-10] MEDS: CLOPIDOGREL BISULFATE 75 MG TABLET (FP) PO SCH (10:26)
[2018-02-10] MEDS: PANTOPRAZOLE 40 MG TABLET (FP) PO SCH (10:27)
[2018-02-10] MEDS: BETHANECHOL CHLORIDE 25 MG TABLET PO SCH ×4 (10:27→22:06)
[2018-02-10] MEDS: POLYETHYLENE GLYCOL 3350 119 GM BTL PO SCH ×2 (10:28→22:06)
[2018-02-10] MEDS: CYCLOBENZAPRINE HCL 10 MG TABLET (FP) PO SCH (10:28)
[2018-02-10] MEDS: CLOTRIMAZOLE 1% CREAM 15 GM TUBE TP SCH ×2 (10:32→22:06)
--- NOTE | 2018-02-10 12:36 | PN ---
Progress Note (short form) - Note Progress Note: Pt examined no hematuria s/p surgery bishop clear Vital Signs - 24 hr 02/09/18 02/09/18 02/09/18 14:35 18:00 21:00 Temperature 98.0 F 97.3 F L Pulse Rate 75 53 L Respiratory 22 H 20 20 Rate Blood Pressure 110/63 132/69 O2 Sat by Pulse 100 Oximetry (%) 02/09/18 02/10/18 22:20 06:00 Temperature 98.4 F Pulse Rate 85 74 Respiratory 20 20 Rate Blood Pressure 120/58 L 103/69 O2 Sat by Pulse Oximetry (%) Current Medications Generic Name Dose Route Start Last Admin Trade Name Freq PRN Reason Stop Dose Admin Acetaminophen 650 mg 02/06/18 20:20 02/08/18 22:23 Tylenol - PO 650 mg Q6H PRN Administration PAIN LEVEL 1-5 Bethanechol Chloride 25 mg 02/09/18 18:00 02/10/18 10:27 Urecholine - PO 25 mg QID JORJE Administration Bisacodyl 10 mg 02/06/18 12:33 02/06/18 14:39 Dulcolax Suppository - RC 10 mg DAILY PRN Administration CONSTIPATION Clopidogrel Bisulfate 75 mg 02/05/18 10:00 02/10/18 10:26 Plavix - PO 75 mg DAILY JORJE Administration Clotrimazole 1 applic 02/06/18 12:45 02/10/18 10:32 Lotrimin 1% Cream - TP 1 applic BID JORJE Administration Cyclobenzaprine HCl 5 mg 02/06/18 12:45 02/10/18 10:28 Flexeril - PO 5 mg DAILY JORJE Administration Docusate Sodium 300 mg 02/05/18 22:00 02/09/18 21:10 Colace - PO 300 mg HS JORJE Administration Fentanyl 25 mcg 02/03/18 15:31 Sublimaze Injection - IVPUSH Q5M PRN PAIN-PACU ORDER X 4 DOSES ONLY Ferrous Sulfate 325 mg 02/06/18 22:00 02/10/18 10:26 Feosol - PO 325 mg BID JORJE Administration Lidocaine HCl 1 applic 02/03/18 23:28 02/04/18 21:30 Xylocaine 2% Jelly TP 1 applic Q8H PRN Administration MODERATE PAIN Melatonin 10 mg 02/03/18 22:00 02/09/18 21:11 Melatonin PO 10 mg HS JORJE Administration Oxycodone HCl 5 mg 02/09/18 19:07 02/10/18 10:27 Roxicodone - PO 5 mg Q4H PRN Administration PAIN LEVEL 7 - 10 Pantoprazole Sodium 40 mg 02/04/18 10:00 02/10/18 10:27 Protonix - PO 40 mg DAILY JORJE Administration Polyethylene Glycol 17 gm 02/05/18 22:00 02/10/18 10:28 Miralax (For Daily Use) - PO 17 gm BID JORJE Administration Warfarin Sodium 5 mg 02/05/18 18:00 02/09/18 17:19 Coumadin - PO 5 mg DAILY@1800 JORJE Administration Laboratory Results - last 24 hr 02/10/18 07:20 PT with INR 29.90 H INR 2.51 H S s2 irregular Lungs decreased Abd- soft, NT No edema achiles tendon is tender B/L PLAN continue Coumadin Bishop removed today=-I was present with RN who removed it voiding trial dc planning PT eval 'will need STR continue with meds off antibiotics Problem List - Problems (1) Supratherapeutic INR Code(s): R79.1 - ABNORMAL COAGULATION PROFILE (2) Anxiety Code(s): F41.9 - ANXIETY DISORDER, UNSPECIFIED (3) Atrial fibrillation Code(s): I48.91 - UNSPECIFIED ATRIAL FIBRILLATION (4) Chest pain Code(s): R07.9 - CHEST PAIN, UNSPECIFIED Qualifiers: Chest pain type: unspecified Qualified Code(s): R07.9 - Chest pain, unspecified (5) HTN (hypertension) Code(s): I10 - ESSENTIAL (PRIMARY) HYPERTENSION (6) Hematuria Code(s): R31.9 - HEMATURIA, UNSPECIFIED Qualifiers: Hematuria type: gross Qualified Code(s): R31.0 - Gross hematuria (7) Hx of CABG Code(s): Z95.1 - PRESENCE OF AORTOCORONARY BYPASS GRAFT (8) Hyperlipidemia Code(s): E78.5 - HYPERLIPIDEMIA, UNSPECIFIED (9) MRSA bacteremia Code(s): R78.81 - BACTEREMIA (10) UTI (urinary tract infection) Code(s): N39.0 - URINARY TRACT INFECTION, SITE NOT SPECIFIED
--- NOTE | 2018-02-10 13:25 | PN ---
Progress Note, Physician Chief Complaint: Pt A&Ox3; no penile pain, despite Banegas having been removed today; intermittent knee pains. No chest pain or dyspnea.He is hoping he can return to shelter and regain his strength (legs). History of Present Illness: The patient is a 77 year old white man (rogerioFahad Francoise) with a significant past medical history of HTN, HLD, CAD (s/p stents), diastolic CHF,?PAF, prostate CA, urethral stricture (catheter in place) who presents to the ER with difficulty ranging his legs today. The patient states he noticed significant swelling, redness, and warmth to the bilateral knees. Patient reports he needed assistance to ambulate today, which is new for him. Patient states he was discharged from rehab four days ago and was ambulating appropriately until today. Patient has not eaten today as he is experiencing mild nausea. Patient denies taking any of his medications today. 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 Patient has his catheter in place and draining urine appropriately. Patient has a fever of 100.1 here in the ER. - Current Medication List Current Medications: Active Medications Acetaminophen (Tylenol -) 650 mg PO Q6H PRN PRN Reason: PAIN LEVEL 1-5 Last Admin: 02/08/18 22:23 Dose: 650 mg Bethanechol Chloride (Urecholine -) 25 mg PO QID [facility] Last Admin: 02/10/18 10:27 Dose: 25 mg Bisacodyl (Dulcolax Suppository -) 10 mg RC DAILY PRN PRN Reason: CONSTIPATION Last Admin: 02/06/18 14:39 Dose: 10 mg Clopidogrel Bisulfate (Plavix -) 75 mg PO DAILY [facility] Last Admin: 02/10/18 10:26 Dose: 75 mg Clotrimazole (Lotrimin 1% Cream -) 1 applic TP BID [facility] Last Admin: 02/10/18 10:32 Dose: 1 applic Cyclobenzaprine HCl (Flexeril -) 5 mg PO DAILY [facility] Last Admin: 02/10/18 10:28 Dose: 5 mg Docusate Sodium (Colace -) 300 mg PO HS [facility] Last Admin: 02/09/18 21:10 Dose: 300 mg Fentanyl (Sublimaze Injection -) 25 mcg IVPUSH Q5M PRN PRN Reason: PAIN-PACU ORDER X 4 DOSES ONLY Ferrous Sulfate (Feosol -) 325 mg PO BID [facility] Last Admin: 02/10/18 10:26 Dose: 325 mg Lidocaine HCl (Xylocaine 2% Jelly) 1 applic TP Q8H PRN PRN Reason: MODERATE PAIN Last Admin: 02/04/18 21:30 Dose: 1 applic Melatonin (Melatonin) 10 mg PO HS [facility] Last Admin: 02/09/18 21:11 Dose: 10 mg Oxycodone HCl (Roxicodone -) 5 mg PO Q4H PRN PRN Reason: PAIN LEVEL 7 - 10 Last Admin: 02/10/18 10:27 Dose: 5 mg Pantoprazole Sodium (Protonix -) 40 mg PO DAILY [facility] Last Admin: 02/10/18 10:27 Dose: 40 mg Polyethylene Glycol (Miralax (For Daily Use) -) 17 gm PO BID [facility] Last Admin: 02/10/18 10:28 Dose: 17 gm Warfarin Sodium (Coumadin -) 5 mg PO DAILY@1800 [facility] Last Admin: 02/09/18 17:19 Dose: 5 mg - Objective Vital Signs: Vital Signs Temperature 97.7 F 02/10/18 10:00 Pulse Rate 82 02/10/18 10:00 Respiratory Rate 18 02/10/18 10:00 Blood Pressure 143/79 02/10/18 10:00 O2 Sat by Pulse Oximetry (%) 100 02/09/18 21:00 Constitutional: Yes: Anxious Eyes: Yes: WNL HENT: Yes: WNL Neck: Yes: WNL Cardiovascular: Yes: S1 (varies in intensity), S2 Respiratory: Yes: WNL Gastrointestinal: Yes: Soft, Abdomen, Obese ...Rectal Exam: Yes: Deferred Genitourinary: No: Anuria Breast(s): Yes: WNL Musculoskeletal: Yes: Joint Stiffness, Muscle Pain, Muscle Weakness Extremities: Yes: Cool Edema: No Peripheral Pulses WNL: Yes Integumentary: Yes: WNL Neurological: Yes: WNL Psychiatric: Yes: WNL Labs: CBC, BMP 02/07/18 06:30 02/07/18 06:30 INR, PTT INR 2.51 (0.83-1.09) H 02/10/18 07:20 Abnormal Lab Results 02/11/18 06:50 PT with INR 29.60 H INR 2.49 H Problem List - Problems (1) MRSA bacteremia Assessment/Plan: febrile episodes; initially leukocytotic; WBCs now WNL. off antibiotics. Code(s): R78.81 - BACTEREMIA (2) Anxiety Code(s): F41.9 - ANXIETY DISORDER, UNSPECIFIED (3) Atrial fibrillation Assessment/Plan: INR now therapeutic; continue warfarin and keep INR 2-3. Code(s): I48.91 - UNSPECIFIED ATRIAL FIBRILLATION (4) Chronic lower back pain Assessment/Plan: spinal studies (xray) results noted; no metastases; no compression; mild lumbar spondylosis. Code(s): M54.5 - LOW BACK PAIN; G89.29 - OTHER CHRONIC PAIN (5) HTN (hypertension) Assessment/Plan: on lisinopril and beta blockers; on furosemide. Code(s): I10 - ESSENTIAL (PRIMARY) HYPERTENSION (6) Hematuria Assessment/Plan: Banegas removed; pt takin PO liquids. Code(s): R31.9 - HEMATURIA, UNSPECIFIED Qualifiers: Hematuria type: gross Qualified Code(s): R31.0 - Gross hematuria (7) Hyperlipidemia Assessment/Plan: Total cholesterol 118 mg/dL; on atorvastatin 20 mg daily; keep LDL well below 70 mg/dL. Code(s): E78.5 - HYPERLIPIDEMIA, UNSPECIFIED (8) Obesity Code(s): E66.9 - OBESITY, UNSPECIFIED (9) Urinary retention Assessment/Plan: s/p TURP.; Banegas now removed. Code(s): R33.9 - RETENTION OF URINE, UNSPECIFIED (10) ASHD (arteriosclerotic heart disease) Assessment/Plan: s/p CABG s/p coronary and LE angioplasty/stents. On clopidogrel (?allergy to ASA); statin; nitrate (Imdur). Code(s): I25.10 - ATHSCL HEART DISEASE OF [place] CORONARY ARTERY W/O ANG PCTRS (11) Anemia Code(s): D64.9 - ANEMIA, UNSPECIFIED (12) Prostate cancer Code(s): C61 - MALIGNANT NEOPLASM OF PROSTATE (13) Chronic diastolic (congestive) heart failure Code(s): I50.32 - CHRONIC DIASTOLIC (CONGESTIVE) HEART FAILURE
--- NOTE | 2018-02-10 14:09 | PN ---
Progress Note, Physician History of Present Illness: stable foleys removed patient passed small amount of urine - Current Medication List Current Medications: Active Medications Acetaminophen (Tylenol -) 650 mg PO Q6H PRN PRN Reason: PAIN LEVEL 1-5 Last Admin: 02/08/18 22:23 Dose: 650 mg Bethanechol Chloride (Urecholine -) 25 mg PO QID [facility] Last Admin: 02/10/18 10:27 Dose: 25 mg Bisacodyl (Dulcolax Suppository -) 10 mg RC DAILY PRN PRN Reason: CONSTIPATION Last Admin: 02/06/18 14:39 Dose: 10 mg Clopidogrel Bisulfate (Plavix -) 75 mg PO DAILY [facility] Last Admin: 02/10/18 10:26 Dose: 75 mg Clotrimazole (Lotrimin 1% Cream -) 1 applic TP BID [facility] Last Admin: 02/10/18 10:32 Dose: 1 applic Cyclobenzaprine HCl (Flexeril -) 5 mg PO DAILY [facility] Last Admin: 02/10/18 10:28 Dose: 5 mg Docusate Sodium (Colace -) 300 mg PO [facility] Last Admin: 02/09/18 21:10 Dose: 300 mg Fentanyl (Sublimaze Injection -) 25 mcg IVPUSH Q5M PRN PRN Reason: PAIN-PACU ORDER X 4 DOSES ONLY Ferrous Sulfate (Feosol -) 325 mg PO BID [facility] Last Admin: 02/10/18 10:26 Dose: 325 mg Lidocaine HCl (Xylocaine 2% Jelly) 1 applic TP Q8H PRN PRN Reason: MODERATE PAIN Last Admin: 02/04/18 21:30 Dose: 1 applic Melatonin (Melatonin) 10 mg PO [facility] Last Admin: 02/09/18 21:11 Dose: 10 mg Oxycodone HCl (Roxicodone -) 5 mg PO Q4H PRN PRN Reason: PAIN LEVEL 7 - 10 Last Admin: 02/10/18 10:27 Dose: 5 mg Pantoprazole Sodium (Protonix -) 40 mg PO DAILY [facility] Last Admin: 02/10/18 10:27 Dose: 40 mg Polyethylene Glycol (Miralax (For Daily Use) -) 17 gm PO BID [facility] Last Admin: 02/10/18 10:28 Dose: 17 gm Warfarin Sodium (Coumadin -) 5 mg PO DAILY@1800 [facility] Last Admin: 02/09/18 17:19 Dose: 5 mg - Objective Vital Signs: Vital Signs Temperature 97.7 F 02/10/18 10:00 Pulse Rate 82 02/10/18 10:00 Respiratory Rate 18 02/10/18 10:00 Blood Pressure 143/79 02/10/18 10:00 O2 Sat by Pulse Oximetry (%) 100 02/09/18 21:00 Constitutional: Yes: No Distress, Calm Cardiovascular: Yes: S1, S2 Respiratory: Yes: Regular, CTA Bilaterally Gastrointestinal: Yes: Normal Bowel Sounds, Soft Musculoskeletal: Yes: WNL Extremities: Yes: WNL Neurological: Yes: Alert, Oriented Psychiatric: Yes: Alert, Oriented Labs: CBC, BMP 02/07/18 06:30 02/07/18 06:30 INR, PTT INR 2.51 (0.83-1.09) H 02/10/18 07:20 Assessment/Plan patient with multiple medical problems coming with weakness and knee joint swelling Problem List - Problems (1) Fever Code(s): R50.9 - FEVER, UNSPECIFIED (2) Supratherapeutic INR Code(s): R79.1 - ABNORMAL COAGULATION PROFILE (3) Anxiety Code(s): F41.9 - ANXIETY DISORDER, UNSPECIFIED (4) Atrial fibrillation Code(s): I48.91 - UNSPECIFIED ATRIAL FIBRILLATION (5) Chest pain Code(s): R07.9 - CHEST PAIN, UNSPECIFIED Qualifiers: Chest pain type: unspecified Qualified Code(s): R07.9 - Chest pain, unspecified (6) Banegas catheter in place Code(s): Z92.89 - PERSONAL HISTORY OF OTHER MEDICAL TREATMENT (7) HTN (hypertension) Code(s): I10 - ESSENTIAL (PRIMARY) HYPERTENSION (8) Hematuria Code(s): R31.9 - HEMATURIA, UNSPECIFIED Qualifiers: Hematuria type: gross Qualified Code(s): R31.0 - Gross hematuria (9) Hx of CABG Code(s): Z95.1 - PRESENCE OF AORTOCORONARY BYPASS GRAFT (10) Hyperlipidemia Code(s): E78.5 - HYPERLIPIDEMIA, UNSPECIFIED hematuria Assessment/Plan continue current mgmt continue monitoring monitor urine output rest continue current mgmt
--- NOTE | 2018-02-10 16:09 | PN ---
Progress Note (short form) - Note Progress Note: Urology follow up. Banegas was discontinued. Pt. is able to urinate with out difficulty. No hematuria at present. Urologically pt. can be discharged. Thank you
[2018-02-10] MEDS: WARFARIN NA 5 MG TABLET (UD) PO SCH (17:47)
[2018-02-10] MEDS: DOCUSATE SODIUM 100 MG CAPSULE (FP) PO SCH (22:05)
[2018-02-10] MEDS: MELATONIN 5 MG TABLETS PO SCH (22:06)
[2018-02-11] MEDS: oxyCODONE HCL 5 MG TABLET PO PRN ×3 (01:59→17:08)
[2018-02-11 08:18] LABS: INR 2.49 (0.83-1.09); PROTHROMBIN TIME (PATIENT) 29.6 SEC (9.7-13.0)
[2018-02-11] MEDS ORDERED: PT OWN MED DRAWER 7, Y5N ONE ×2 (09:42→18:47)
[2018-02-11] MEDS: BETHANECHOL CHLORIDE 25 MG TABLET PO SCH ×3 (09:45→17:03)
[2018-02-11] MEDS: CLOPIDOGREL BISULFATE 75 MG TABLET (FP) PO SCH (09:45)
[2018-02-11] MEDS: FERROUS SO4 325 MG TABLET (FP) PO SCH (09:45)
[2018-02-11] MEDS: PANTOPRAZOLE 40 MG TABLET (FP) PO SCH (09:45)
[2018-02-11] MEDS: CYCLOBENZAPRINE HCL 10 MG TABLET (FP) PO SCH (09:45)
[2018-02-11] MEDS: POLYETHYLENE GLYCOL 3350 119 GM BTL PO SCH (09:46)
--- NOTE | 2018-02-11 10:48 | PN ---
Progress Note, Physician History of Present Illness: he patient is a 77 year old male with a significant past medical history of HTN , HLD, CAD (s/p stents), prostate CA, urethral stricture (catheter in place) who presents to the ER with difficulty ranging his legs today. The patient states he noticed significant swelling, redness, and warmth to the bilateral knees. Patient reports he needed assistance to ambulate today, which is new for him. Patient states he was discharged from rehab four days ago and was ambulating appropriately until today. Patient has not eaten today as he is experiencing mild nausea. Patient denies taking any of his medications today. 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 Patient has his catheter in place and draining urine appropriately. Patient has a fever of 100.1 here in the ER. The patient denies chest pain, shortness of breath, headache, and dizziness. Denies chills, vomit, diarrhea, and constipation. Allergies: strawberry, pepper, iohexol Past surgical history: stents Social history: No reported alcohol, drug, or cigarette use. H cabg lithotripsy prostate seeds Ongoing medical problems Afib diagnosed at the hospital during SFA HOG KILLER 08/2015 and has been on coumadin since then 2015 CAD Coronary artery bypass graft SANTIAGO of left SFA August 11, 2014 Dr. Blanton SANTIAGO of left PDA July 07, 2014 Dr. Blanton dizziness Hyperlipidemia Hypertension Negative MIBI stress test 2013 [place] [facility] NSVT Pauses PCI SANTIAGO of p LCx March 30, 2015 Dr. Blanton PCI LCx 08/17/12 [facility] PCI LCx 07/07/14 Dr. Blanton HOG KILLER/stent right SFA 526/16 DR BLANTON Right SFA 100 occlusion July 07, 2014 Dr. Blanton s/p HOG KILLER drug elluting balloon L SFA 2015 s/p HOG KILLER left SFA 09/25/17 for left foot ulcer s/p urethral stricture after cystoscopy and urethrotomy the patient went into septic shock and was treated with antibiotics and was stabilized. October 2017 - Current Medication List Current Medications: Active Medications Acetaminophen (Tylenol -) 650 mg PO Q6H PRN PRN Reason: PAIN LEVEL 1-5 Last Admin: 02/08/18 22:23 Dose: 650 mg Bethanechol Chloride (Urecholine -) 25 mg PO QID [facility] Last Admin: 02/11/18 09:45 Dose: 25 mg Bisacodyl (Dulcolax Suppository -) 10 mg RC DAILY PRN PRN Reason: CONSTIPATION Last Admin: 02/06/18 14:39 Dose: 10 mg Clopidogrel Bisulfate (Plavix -) 75 mg PO DAILY [facility] Last Admin: 02/11/18 09:45 Dose: 75 mg Clotrimazole (Lotrimin 1% Cream -) 1 applic TP BID [facility] Last Admin: 02/10/18 22:06 Dose: 1 applic Cyclobenzaprine HCl (Flexeril -) 5 mg PO DAILY [facility] Last Admin: 02/11/18 09:45 Dose: 5 mg Docusate Sodium (Colace -) 300 mg PO [facility] Last Admin: 02/10/18 22:05 Dose: 300 mg Fentanyl (Sublimaze Injection -) 25 mcg IVPUSH Q5M PRN PRN Reason: PAIN-PACU ORDER X 4 DOSES ONLY Ferrous Sulfate (Feosol -) 325 mg PO BID [facility] Last Admin: 02/11/18 09:45 Dose: 325 mg Lidocaine HCl (Xylocaine 2% Jelly) 1 applic TP Q8H PRN PRN Reason: MODERATE PAIN Last Admin: 02/04/18 21:30 Dose: 1 applic Melatonin (Melatonin) 10 mg PO HS [facility] Last Admin: 02/10/18 22:06 Dose: 10 mg Oxycodone HCl (Roxicodone -) 5 mg PO Q4H PRN PRN Reason: PAIN LEVEL 7 - 10 Last Admin: 02/11/18 06:23 Dose: 5 mg Pantoprazole Sodium (Protonix -) 40 mg PO DAILY [facility] Last Admin: 02/11/18 09:45 Dose: 40 mg Polyethylene Glycol (Miralax (For Daily Use) -) 17 gm PO BID [facility] Last Admin: 02/11/18 09:46 Dose: 17 gm Warfarin Sodium (Coumadin -) 5 mg PO DAILY@1800 [facility] Last Admin: 02/10/18 17:47 Dose: 5 mg - Objective Vital Signs: Vital Signs Temperature 98.6 F 02/11/18 06:04 Pulse Rate 82 02/11/18 06:04 Respiratory Rate 20 02/11/18 06:04 Blood Pressure 121/75 02/11/18 06:04 O2 Sat by Pulse Oximetry (%) 99 02/10/18 21:00 Eyes: Yes: WNL, Conjunctiva Clear, EOM Intact HENT: Yes: WNL, Atraumatic, Normocephalic Neck: Yes: WNL, Supple, Trachea Midline Cardiovascular: Yes: WNL, Regular Rate and Rhythm Respiratory: Yes: WNL, Regular, CTA Bilaterally Gastrointestinal: Yes: WNL, Normal Bowel Sounds Genitourinary: Yes: WNL Musculoskeletal: Yes: WNL Extremities: Yes: WNL Edema: No Integumentary: Yes: WNL Neurological: Yes: WNL, Alert, Oriented ...Motor Strength: WNL Psychiatric: Yes: WNL Labs: CBC, BMP 02/07/18 06:30 02/07/18 06:30 INR, PTT INR 2.49 (0.83-1.09) H 02/11/18 06:50 Assessment/Plan - Problems (1) MRSA bacteremia Assessment/Plan: febrile episodes; initially leukocytotic; WBCs now WNL. off antibiotics. Code(s): R78.81 - BACTEREMIA (2) Anxiety Code(s): F41.9 - ANXIETY DISORDER, UNSPECIFIED (3) Atrial fibrillation Assessment/Plan: INR now therapeutic; continue warfarin and keep INR 2-3. Code(s): I48.91 - UNSPECIFIED ATRIAL FIBRILLATION (4) Chronic lower back pain Assessment/Plan: spinal studies (xray) results noted; no metastases; no compression; mild lumbar spondylosis. Code(s): M54.5 - LOW BACK PAIN; G89.29 - OTHER CHRONIC PAIN (5) HTN (hypertension) Assessment/Plan: on lisinopril and beta blockers; on furosemide. Code(s): I10 - ESSENTIAL (PRIMARY) HYPERTENSION (6) Hematuria Assessment/Plan: Banegas removed; pt takin PO liquids. Code(s): R31.9 - HEMATURIA, UNSPECIFIED Qualifiers: Hematuria type: gross Qualified Code(s): R31.0 - Gross hematuria (7) Hyperlipidemia Assessment/Plan: Total cholesterol 118 mg/dL; on atorvastatin 20 mg daily; keep LDL well below 70 mg/dL. Code(s): E78.5 - HYPERLIPIDEMIA, UNSPECIFIED (8) Obesity Code(s): E66.9 - OBESITY, UNSPECIFIED (9) Urinary retention Assessment/Plan: s/p TURP.; Banegas now removed. Code(s): R33.9 - RETENTION OF URINE, UNSPECIFIED (10) ASHD (arteriosclerotic heart disease) Assessment/Plan: s/p CABG s/p coronary and LE angioplasty/stents. On clopidogrel (?allergy to ASA); statin; nitrate (Imdur). Code(s): I25.10 - ATHSCL HEART DISEASE OF [place] CORONARY ARTERY W/O ANG PCTRS (11) Anemia Code(s): D64.9 - ANEMIA, UNSPECIFIED (12) Prostate cancer Code(s): C61 - MALIGNANT NEOPLASM OF PROSTATE (13) Chronic diastolic (congestive) heart failure Code(s): I50.32 - CHRONIC DIASTOLIC (CONGESTIVE) HEART FAILURE
--- NOTE | 2018-02-11 11:53 | DS ---
Physical Examination Vital Signs: Vital Signs Temperature 98.6 F 02/11/18 06:04 Pulse Rate 82 02/11/18 06:04 Respiratory Rate 20 02/11/18 06:04 Blood Pressure 121/75 02/11/18 06:04 O2 Sat by Pulse Oximetry (%) 99 02/10/18 21:00 Constitutional: Yes: No Distress, Calm Cardiovascular: Yes: Regular Rate and Rhythm Respiratory: Yes: Diminished Gastrointestinal: Yes: Normal Bowel Sounds, Soft, Abdomen, Obese. No: Tenderness Edema: No Labs: CBC, BMP 02/07/18 06:30 02/07/18 06:30 Discharge Summary Reason For Visit: FEVER Current Active Problems ASHD (arteriosclerotic heart disease) (Acute) Anemia (Acute) Chronic diastolic (congestive) heart failure (Acute) MRSA bacteremia (Acute) Prostate cancer (Acute) Supratherapeutic INR (Acute) Hospital Course: Admitted for knee pain and unable to walk. He was seen by Ortho, Cardiology ad Urology-- Course complicated by gross Hematuria Was started on IV antibiotics per ID for UTI H/HCT stable Pt underwent TURBT, cystoscopy - no abnormal findings . Banegas removed yesterday and pt is voiding though he does not have complete control of bladder Knee pain and ankles pain still present though better Will need STR for deconditioning Stable for dc to [facility] INR is therapeutic Condition: Improved - Instructions Referrals: Samantha Pham MD [Primary Care Provider] - Disposition: [facility] - Home Medications Comprehensive Discharge Medication List: Ambulatory Orders Folic Acid 1 mg PO DAILY 11/04/16 Acetaminophen [Tylenol .Regular Strength -] 650 mg PO Q6H 11/07/17 Tamsulosin HCl [Flomax] 0.8 mg PO DAILY 11/07/17 Furosemide [Lasix -] 20 mg PO DAILY #30 tablet 11/25/17 Sennosides [Senna -] 2 tab PO HS PRN #30 tablet 11/25/17 Ferrous Sulfate 325 mg PO BID 01/01/18 Lisinopril [Prinivil] 5 mg PO DAILY 01/01/18 Omeprazole 40 mg PO DAILY 01/01/18 Warfarin Na [Coumadin -] 5 mg PO HS 01/01/18 traMADol HCL [Ultram -] 50 mg PO BID PRN #60 tablet MDD 2 01/03/18 Aspirin [ASA -] 81 mg PO DAILY 01/12/18 Atorvastatin Ca [Lipitor] 20 mg PO HS 01/12/18 Clopidogrel Bisulfate [Plavix -] 75 mg PO DAILY 01/12/18 Isosorbide Mononitrate [Isosorbide Mononitrate ER] 30 mg PO DAILY 01/12/18 Hydrocortisone 2.5% Topical Cr [Anusol 2.5% Hc Cream -] 1 applic RC BID
[2018-02-11] MEDS: CLOTRIMAZOLE 1% CREAM 15 GM TUBE TP SCH (12:10)
--- NOTE | 2018-02-11 13:42 | PN ---
Progress Note, Physician - Current Medication List Current Medications: Active Medications Acetaminophen (Tylenol -) 650 mg PO Q6H PRN PRN Reason: PAIN LEVEL 1-5 Last Admin: 02/08/18 22:23 Dose: 650 mg Bethanechol Chloride (Urecholine -) 25 mg PO QID [facility] Last Admin: 02/11/18 09:45 Dose: 25 mg Bisacodyl (Dulcolax Suppository -) 10 mg RC DAILY PRN PRN Reason: CONSTIPATION Last Admin: 02/06/18 14:39 Dose: 10 mg Clopidogrel Bisulfate (Plavix -) 75 mg PO DAILY [facility] Last Admin: 02/11/18 09:45 Dose: 75 mg Clotrimazole (Lotrimin 1% Cream -) 1 applic TP BID [facility] Last Admin: 02/11/18 12:10 Dose: 1 applic Cyclobenzaprine HCl (Flexeril -) 5 mg PO DAILY [facility] Last Admin: 02/11/18 09:45 Dose: 5 mg Docusate Sodium (Colace -) 300 mg PO HS [facility] Last Admin: 02/10/18 22:05 Dose: 300 mg Fentanyl (Sublimaze Injection -) 25 mcg IVPUSH Q5M PRN PRN Reason: PAIN-PACU ORDER X 4 DOSES ONLY Ferrous Sulfate (Feosol -) 325 mg PO BID [facility] Last Admin: 02/11/18 09:45 Dose: 325 mg Lidocaine HCl (Xylocaine 2% Jelly) 1 applic TP Q8H PRN PRN Reason: MODERATE PAIN Last Admin: 02/04/18 21:30 Dose: 1 applic Melatonin (Melatonin) 10 mg PO HS [facility] Last Admin: 02/10/18 22:06 Dose: 10 mg Oxycodone HCl (Roxicodone -) 5 mg PO Q4H PRN PRN Reason: PAIN LEVEL 7 - 10 Last Admin: 02/11/18 06:23 Dose: 5 mg Pantoprazole Sodium (Protonix -) 40 mg PO DAILY [facility] Last Admin: 02/11/18 09:45 Dose: 40 mg Polyethylene Glycol (Miralax (For Daily Use) -) 17 gm PO BID [facility] Last Admin: 02/11/18 09:46 Dose: 17 gm Warfarin Sodium (Coumadin -) 5 mg PO DAILY@1800 [facility] Last Admin: 02/10/18 17:47 Dose: 5 mg - Objective Vital Signs: Vital Signs Temperature 98.6 F 02/11/18 06:04 Pulse Rate 82 02/11/18 06:04 Respiratory Rate 20 02/11/18 06:04 Blood Pressure 121/75 02/11/18 06:04 O2 Sat by Pulse Oximetry (%) 99 02/10/18 21:00 Labs: CBC, BMP 02/07/18 06:30 02/07/18 06:30 INR, PTT INR 2.49 (0.83-1.09) H 02/11/18 06:50
[2018-02-11 14:23] VITALS: BP 152/70; PULSE 58; TEMP 98.1
[2018-02-11] MEDS: WARFARIN NA 5 MG TABLET (UD) PO SCH (17:02)
== END 2018-02-11 19:39 | DRG 666 ==
LOC: JER 12:47 → JERBED 16:36 → J5S 21:31
PROVIDERS: ADMIT Internal Medicine; ATTEND Internal Medicine
PROC: 0V507ZZ Destruction of Prostate, Via Natural or Artificial Opening (ICD-10-PCS; 2018-02-03)
PROC: 0T7D8ZZ Dilation of Urethra, Via Natural or Artificial Opening Endoscopic (ICD-10-PCS; principal; 2018-02-03 14:00)
DX: T83.511A Infection and inflammatory reaction due to indwelling urethral catheter, initial encounter (principal); I50.32 Chronic diastolic (congestive) heart failure; I25.10 Atherosclerotic heart disease of native coronary artery without angina pectoris; N39.0 Urinary tract infection, site not specified; C61 Malignant neoplasm of prostate; E78.5 Hyperlipidemia, unspecified; I73.9 Peripheral vascular disease, unspecified; I48.91 Unspecified atrial fibrillation; M54.5 Low back pain; K21.9 Gastro-esophageal reflux disease without esophagitis; M17.0 Bilateral primary osteoarthritis of knee; D64.9 Anemia, unspecified; E66.9 Obesity, unspecified; Z68.31 Body mass index [BMI] 31.0-31.9, adult; R79.1 Abnormal coagulation profile; F41.9 Anxiety disorder, unspecified; R31.0 Gross hematuria; N40.1 Benign prostatic hyperplasia with lower urinary tract symptoms; N32.89 Other specified disorders of bladder; B95.2 Enterococcus as the cause of diseases classified elsewhere; A49.02 Methicillin resistant Staphylococcus aureus infection, unspecified site; R33.9 Retention of urine, unspecified; I11.0 Hypertensive heart disease with heart failure; N35.919 Unspecified urethral stricture, male, unspecified site; Y83.9 Surgical procedure, unspecified as the cause of abnormal reaction of the patient, or of later complication, without mention of misadventure at the time of the procedure; Z95.1 Presence of aortocoronary bypass graft; Z95.5 Presence of coronary angioplasty implant and graft
CPT/HCPCS: 36415; 71045-TC-FY; 72100-TC-FY; 73560-TC-LT-FY; 73560-TC-RT-FY; 73630-TC-LT; 80048; 80053; 80061; 81003; 81015; 82150; 82550; 82553; 82803; 82945; 83605; 83615; 83721; 84157; 84484; 84550; 85025; 85027; 85610; 85651; 85730; 86140; 86850; 86900; 86901; 87040; 87070; 87075; 87086; 87186; 87205; 88305-TC; 89051; 89060; 90688; 93005; 93010; 93306-TC; 94760; 97116-GP; 97161-GP; 99284-25; G0480; J7030

== ENCOUNTER 2018-09-04 14:13 | Emergency (ER) | payer OTHER, MEDICARE ==
[2018-09-04 14:25] VITALS: BMI 31.3
--- NOTE | 2018-09-04 14:28 | PDOC ---
Rapid Medical Evaluation Chief Complaint: Chest Pain Time Seen by Provider: 09/04/18 14:21 Medical Evaluation: Allergies Allergy/AdvReac Type Severity Reaction Status Date / Time strawberry Allergy Severe Swelling Verified 01/12/18 13:13 pepper (genus Capsicum) Allergy Unknown Verified 01/12/18 13:13 black pepper Allergy Verified 01/16/18 14:54 iohexol [From Omnipaque] Allergy Rash Verified 01/12/18 13:13 red pepper Allergy Uncoded 01/16/18 14:54 09/04/18 14:22 I have performed a brief in-person evaluation of this patient. The patient presents with a chief complaint of: CP since AM, + Mult stents - took NTG this M Pertinent physical exam findings: "uncomfortable feeling in chest" since AM./ + CURRENT I have ordered the following: Ekg, Card. CMP, CBC The patient will proceed to the ED for further evaluation.
[2018-09-04 14:51] LABS: BASO % 0.6 % (0-2.0); EOS % 1.4 % (0-4.5); HEMATOCRIT 37.8 % (35.4-49); HEMOGLOBIN 12.2 GM/dL (11.7-16.9); LYMPH % 14.2 % (8-40); MCH 30.1 pg (25.7-33.7); MCHC 32.2 g/dl (32.0-35.9); MEAN CELL VOLUME 93.4 fl (80-96); MEAN PLT VOLUME 7.9 fl (7.5-11.1); MONO % 12.4 % (3.8-10.2); NEUT % 71.4 % (42.8-82.8); PLATELET COUNT 287 K/MM3 (134-434); RBC 4.05 M/mm3 (4.00-5.60); RDW 15.4 % (11.9-15.9); WHITE BLOOD COUNT 7.1 K/mm3 (4.0-10.0)
[2018-09-04 15:01] LABS: INR 2.54 (0.83-1.09); PROTHROMBIN TIME (PATIENT) 30.2 SEC (9.7-13.0)
[2018-09-04 15:17] LABS: ALBUMIN 3.6 g/dl (3.4-5.0); BILIRUBIN,TOTAL 0.5 mg/dL (0.2-1); CALCIUM 8.8 mg/dL (8.5-10.1); CREATININE 1.2 mg/dL (0.55-1.3); POTASSIUM 4.5 mmol/L (3.5-5.1); TOT PROT 6.9 g/dl (6.4-8.2)
--- NOTE | 2018-09-04 15:38 | PDOC ---
History of Present Illness - General Chief Complaint: Chest Pain Stated Complaint: CHEST PAIN Time Seen by Provider: 09/04/18 14:21 History Source: Patient Exam Limitations: No Limitations - History of Present Illness Initial Comments: 09/04/18 15:40 78 yo male w/ pmh of HTN, HLD, CAD (s/p 2 cardiac stents, bypass, recent stress test 1 year ago reported WNL), prostate CA, urethral stricture (w/ catheter placed for management until patient able to have TURP) presents to the ED for 7 days of non exertional CP. Pt states he has taken sublingual nitro every morning for the pain with relief. States the pain is worse in the morning, described as dull and achy, non radiating, no N/V/F/C, PINTO, abdominal pain, back pain, recent travel, calf tenderness. Past History - Past Medical History Allergies/Adverse Reactions: Allergies Allergy/AdvReac Type Severity Reaction Status Date / Time strawberry Allergy Severe Swelling Verified 09/04/18 14:22 pepper (genus Capsicum) Allergy Unknown Verified 09/04/18 14:22 black pepper Allergy Verified 09/04/18 14:22 iohexol [From Omnipaque] Allergy Rash Verified 09/04/18 14:22 red pepper Allergy Uncoded 09/04/18 14:22 Home Medications: Ambulatory Orders Folic Acid 1 mg PO DAILY 11/04/16 Tamsulosin HCl [Flomax] 0.8 mg PO DAILY 11/07/17 Omeprazole 40 mg PO DAILY 01/01/18 Warfarin Na [Coumadin -] 5 mg PO HS 01/01/18 Clopidogrel Bisulfate [Plavix -] 75 mg PO DAILY 01/12/18 Isosorbide Mononitrate [Isosorbide Mononitrate ER] 30 mg PO DAILY 01/12/18 Allopurinol [Zyloprim -] 100 mg PO DAILY 09/04/18 Famotidine 20 mg PO DAILY 09/04/18 Lisinopril [Zestril] 5 mg PO DAILY 09/04/18 Simvastatin [Zocor] 10 mg PO HS 09/04/18 Tramadol HCl 50 mg PO DAILY 09/04/18 Anemia: No Asthma: No Cancer: Yes (PROSTATE CANCER 2011) Cardiac Disorders: Yes (coronary artery disease, cardiac bypass 10 years ago, Afib) CVA: No COPD: No CHF: No Dementia: No Diabetes: No GI Disorders: No Disorders: Yes (STONES, chronic UTIs) HTN: Yes Hypercholesterolemia: Yes Kidney Stones: Yes Liver Disease: No Seizures: No Thyroid Disease: No - Surgical History Abdominal Surgery: No Appendectomy: No Cardiac Surgery: Yes (open heart, 2 stents) Cholecystectomy: No Lung Surgery: No Neurologic Surgery: No Orthopedic Surgery: No - Immunization History Immunization Up to Date: Yes - Suicide/Smoking/Psychosocial Hx Smoking Status: Yes Smoking History: Never smoked Have you smoked in the past 12 months: No Number of Cigarettes Smoked Daily: 0 If you are a former smoker, when did you quit?: 12 YRS AGO 'Breaking Loose' booklet given: 11/10/17 Hx Alcohol Use: No Drug/Substance Use Hx: No Substance Use Type: None Hx Substance Use Treatment: No Review of Systems - Review of Systems Constitutional: No: Chills, Fever Respiratory: No: Shortness of Breath Cardiac (ROS): Yes: Chest Pain (not active). No: Edema ABD/GI: No: Constipated, Diarrhea, Nausea, Vomiting : No: Burning, Dysuria, Flank Pain Musculoskeletal: No: Back Pain *Physical Exam - Vital Signs Last Vital Signs Temp Pulse Resp BP Pulse Ox 97.7 F 55 L 17 117/78 97 09/04/18 14:22 09/04/18 14:22 09/04/18 14:22 09/04/18 14:22 09/04/18 14:22 - Physical Exam General Appearance: Yes: Nourished, Appropriately Dressed. No: Apparent Distress HEENT: positive: EOMI Neck: positive: Supple. negative: Carotid bruit Respiratory/Chest: positive: Lungs Clear, Normal Breath Sounds. negative: Accessory Muscle Use, Crackles, Rales, Rhonchi, Stridor, Wheezing Cardiovascular: positive: Regular Rhythm, Regular Rate, S1, S2. negative: Edema , JVD, Murmur Vascular Pulses: Dorsalis-Pedis (R): 3+, Doralis-Pedis (L): 3+ Gastrointestinal/Abdominal: positive: Flat, Soft. negative: Pulsatile Mass, Distended, Guarding, Rebound, Tenderness Musculoskeletal: negative: CVA Tenderness Extremity: positive: Normal Capillary Refill, Normal Inspection Integumentary: positive: Normal Color, Dry, Warm Neurologic: positive: Fully Oriented, Alert, Normal Mood/Affect, Normal Response ED Treatment Course - LABORATORY CBC & Chemistry Diagram: 09/04/18 14:28 09/04/18 14:28 - ADDITIONAL ORDERS Additional order review: Laboratory Results 09/04/18 09/04/18 09/04/18 14:28 14:28 14:28 PT with INR 30.20 H INR 2.54 H Sodium 138 Potassium 4.5 Chloride 106 Carbon Dioxide 25 Anion Gap 7 L BUN 24 H Creatinine 1.2 Est GFR (CKD-EPI)AfAm 66.73 Est GFR (CKD-EPI)NonAf 57.57 Random Glucose 131 H Calcium 8.8 Total Bilirubin 0.5 AST 61 H ALT 117 H Alkaline Phosphatase 512 H Creatine Kinase 55 Troponin I < 0.02 Total Protein 6.9 Albumin 3.6 09/04/18 14:28 RBC 4.05 MCV 93.4 MCHC 32.2 RDW 15.4 D MPV 7.9 Neutrophils % 71.4 Lymphocytes % 14.2 D Monocytes % 12.4 H Eosinophils % 1.4 Basophils % 0.6 Medical Decision Making - Medical Decision Making 09/04/18 19:43 78 yo male with significant cardiac hx presents with 1 week of CP relieved with sublingal nitro. No active CP reported in the ED Vitals WNL EKG NSR without new changes when compared to last ekg DDX INLT: ACS, angina, GERD trop [address] Mata present in the ED, evaluates pt, states 2 trops required and he will attempt to get in contact with Dr. Maria (pts dye automation operator) and report back with a plan second trop negative, Dr. Mata aware via text, pending response. Dr. Mata states he was able to speak with pts primary Dance Teacher and manager pest, pt is safe and stable to be DC home with f/u appointment and has scheduled stress echo in the near future. Pt is well appearing, with normal vitals. Clinically stable for DC at this time. Pt understands plan and given strict return precautions *DC/Admit/Observation/Transfer Diagnosis at time of Disposition: Chest pain - Discharge Dispostion Disposition: HOME Condition at time of disposition: Stable Decision to Admit order: No - Referrals Referrals: Samantha Pham MD [Primary Care Provider] - - Patient Instructions Printed Discharge Instructions: DI for Atypical Chest Pain, DI for Chest Pain Additional Instructions: Please see your Dance Teacher as soon as possible. Continue taking your home dosed medications as prescribed. Return to the ER for new or concerning symptoms including but not limited to: severe chest pain, difficulty breathing, severe sweating, weakness, high fevers. Thank you - Post Discharge Activity
--- NOTE | 2018-09-04 16:02 | PDOC ---
Documentation entered by Cailin Maguire SCRIBE, acting as scribe for Shukri Chacon MD. Shukri Chacon MD: This documentation has been prepared by the Ting palmer Daisy, SCRIBE, under my direction and personally reviewed by me in its entirety. I confirm that the documentation accurately reflects all work, treatment, procedures, and medical decision making performed by me. Attending Attestation - Resident Resident Name: Justo Chase - ED Attending Attestation I have performed the following: I have examined & evaluated the patient, The case was reviewed & discussed with the resident, I agree w/resident's findings & plan, Exceptions are as noted - HPI HPI: 09/04/18 15:02 The patient is a 78YOM with a PMH of afib, HTN, HLD, CAD bypass and stents, prostate cancer who presents to the ED for a 1 week history of chest pain. He reports the chest pain is localized on the right, nonradiating, and nonexertional. He has been taking nitro sublingual. He reports the chest pain is similar in quality and intensity to when he required stent placement. Allergies: Iohexol - Physicial Exam PE: 09/04/18 15:41 "GENERAL: Awake, alert, and fully oriented, in no acute distress. HEAD: No signs of trauma EYES: PERRLA, EOMI, sclera anicteric, conjunctiva clear ENT: Auricles normal inspection, hearing grossly normal, nares patent, oropharynx clear without exudates. Moist mucosa NECK: Nontender, no stepoffs, Normal ROM, supple, no lymphadenopathy, JVD, or masses LUNGS: Breath sounds equal, clear to auscultation bilaterally. No wheezes, and no crackles HEART: Regular rate and rhythm, normal S1 and S2, no murmurs, rubs or gallops ABDOMEN: Soft, nontender, normoactive bowel sounds. No guarding, no rebound. No masses EXTREMITIES: Normal range of motion, no edema. No clubbing or cyanosis. No cords, erythema, or tenderness NEUROLOGICAL: Cranial nerves II through XII intact. 5/5 strength and sensation in all extremities, Normal speech, normal gait, normal cerebellar function SKIN: Warm, Dry, normal turgor, no rashes or lesions noted. - Medical Decision Making 09/04/18 15:45 78 M with chest pain. Will need to r/o ACS given significant cardiac history. EKG with no acute changes. - Labs - Trop - Consult Dr. Mata 09/04/18 16:02 Labs wnl, trop negative x1 Dr. Mata in ED to evaluate pt 09/04/18 20:43 Trop negative x [address] Mata, who has cleared pt for DC from cardiology standpoint. Pt is well appearing, with normal vitals. Clinically stable for DC at this time. I discussed the physical exam findings, ancillary test results and final diagnoses with the patient. I answered all of the patient's questions. The patient was satisfied with the care received and felt comfortable with the discharge plan and treatment plan. The patient agrees to follow up with the primary care physician within 24-72 hours.
--- NOTE | 2018-09-04 19:10 | PDOC ---
*Physical Exam - Vital Signs Last Vital Signs Temp Pulse Resp BP Pulse Ox 998.0 F H 50 L 22 H 120/57 L 98 09/04/18 17:01 09/04/18 17:01 09/04/18 17:01 09/04/18 17:01 09/04/18 17:01 ED Treatment Course - LABORATORY CBC & Chemistry Diagram: 09/04/18 14:28 09/04/18 14:28 - ADDITIONAL ORDERS Additional order review: Laboratory Results 09/04/18 09/04/18 09/04/18 18:16 14:28 14:28 PT with INR INR Sodium 138 Potassium 4.5 Chloride 106 Carbon Dioxide 25 Anion Gap 7 L BUN 24 H Creatinine 1.2 Est GFR (CKD-EPI)AfAm 66.73 Est GFR (CKD-EPI)NonAf 57.57 Random Glucose 131 H Calcium 8.8 Total Bilirubin 0.5 AST 61 H ALT 117 H Alkaline Phosphatase 512 H Creatine Kinase 55 Troponin I < 0.02 < 0.02 Total Protein 6.9 Albumin 3.6 09/04/18 14:28 PT with INR 30.20 H INR 2.54 H Sodium Potassium Chloride Carbon Dioxide Anion Gap BUN Creatinine Est GFR (CKD-EPI)AfAm Est GFR (CKD-EPI)NonAf Random Glucose Calcium Total Bilirubin AST ALT Alkaline Phosphatase Creatine Kinase Troponin I Total Protein Albumin 09/04/18 14:28 RBC 4.05 MCV 93.4 MCHC 32.2 RDW 15.4 D MPV 7.9 Neutrophils % 71.4 Lymphocytes % 14.2 D Monocytes % 12.4 H Eosinophils % 1.4 Basophils % 0.6 Medical Decision Making - Medical Decision Making 09/04/18 19:06 Patient signed out by resident Dr. Chase. In short patient is a 78 year old man with a history of afib, HTN, HLD, CAD bypass and stents, prostate cancer. presenting with 1 week of R chest pain and nitro SL pain feels similar to pain at prior stent ED Course: labs wnl, trop negative, Mascitelli in ED to eval pt repeat negative trops likely dispo to Tele obs *DC/Admit/Observation/Transfer - Referrals Referrals: Samantha Pham MD [Primary Care Provider] - - Patient Instructions - Post Discharge Activity
[2018-09-04] MEDS ORDERED: diphenhydrAMINE HCL 25 MG CAPSULE (FP) PO ONE ×2 (19:42→19:46)
[2018-09-04 20:37] VITALS: BP 113/78; PULSE 52; TEMP 98.2
--- NOTE | 2018-09-05 11:08 | EKG ---
Test Reason : Blood Pressure : / mmHG Vent. Rate : 054 BPM Atrial Rate : 054 BPM P-R Int : 248 ms QRS Dur : 110 ms QT Int : 448 ms P-R-T Axes : 066 015 119 degrees QTc Int : 424 ms SINUS BRADYCARDIA WITH 1ST DEGREE A-V BLOCK WITH PREMATURE ATRIAL COMPLEXES INCOMPLETE LEFT BUNDLE BRANCH BLOCK NONSPECIFIC ST ABNORMALITY ABNORMAL ECG Confirmed by CARLOS LIN MD ([id number]) on 09/05/2018 11:07:57 AM Referred By: Confirmed By:CARLOS LIN MD
== END 2018-09-04 20:46 | disposition home or self-care (01) ==
LOC: JER 14:13
DX: R07.9 Chest pain, unspecified (principal); I25.10 Atherosclerotic heart disease of native coronary artery without angina pectoris; I10 Essential (primary) hypertension; Z95.1 Presence of aortocoronary bypass graft; Z95.5 Presence of coronary angioplasty implant and graft; I48.91 Unspecified atrial fibrillation; Z79.01 Long term (current) use of anticoagulants; E78.00 Pure hypercholesterolemia, unspecified; Z85.46 Personal history of malignant neoplasm of prostate; N35.919 Unspecified urethral stricture, male, unspecified site; Z87.442 Personal history of urinary calculi; Z87.440 Personal history of urinary (tract) infections
CPT/HCPCS: 36415; 80053; 82550; 84484; 85025; 85610; 93005; 93010; 99285-25

== ENCOUNTER 2018-10-12 14:22 | Inpatient (IN) | payer OTHER, MEDICARE ==
[2018-10-12] MEDS ORDERED: ASPIRIN 81 MG CHEWABLE TABLETS PO ONE ×2 (14:30→16:09)
--- NOTE | 2018-10-12 14:30 | PDOC ---
Rapid Medical Evaluation Time Seen by Provider: 10/12/18 14:24 Medical Evaluation: Allergies Allergy/AdvReac Type Severity Reaction Status Date / Time strawberry Allergy Severe Swelling Verified 09/04/18 14:22 pepper (genus Capsicum) Allergy Unknown Verified 09/04/18 14:22 black pepper Allergy Verified 09/04/18 14:22 iohexol [From Omnipaque] Allergy Rash Verified 09/04/18 14:22 red pepper Allergy Uncoded 09/04/18 14:22 10/12/18 14:24 I have performed a brief in-person evaluation of this patient. The patient presents with a chief complaint of: Left sided chest pain since 5AM - woke from sleep Pertinent physical exam findings: Midline chest scar. Bradycardic. No M/R/G. I have ordered the following: cardiac w/u The patient will proceed to the ED for further evaluation. Discharge Disposition - Diagnosis Chest pain - Referrals - Patient Instructions - Post Discharge Activity
[2018-10-12] MEDS ORDERED: ASPIRIN 325 MG TABLET ONE (15:09)
[2018-10-12] MEDS ORDERED: ASPIRIN 325 MG ENTERIC COATED TABLET (FP) ONE (15:09)
--- NOTE | 2018-10-12 15:23 | PDOC ---
History of Present Illness - General Chief Complaint: Chest Pain Stated Complaint: CHEST PAIN Time Seen by Provider: 10/12/18 14:24 - History of Present Illness Initial Comments: 10/12/18 15:34 The patient is a 78 year old male with a history of HTN, HLD, CAD s/p stenting and bypass who presents for evaluation of chest pain. The patient reports onset of left sided chest pressure this morning that has remained persistent and felt similar to when he required his prior stents prompting his presentation to the ED for further evaluation. He states that he stopped taking his warfarin 1 week ago as well for a knee arthrocentesis and has not started taking it again. He states that he took 2 SL nitro's at home which improved his symptoms as well. He does report as well that he had an abnormal stress test 1 month ago as well. He otherwise denies fevers, chills, SOB, nausea, vomiting, abdominal pain, or changes with urination or bowel movements. Past History - Past Medical History Allergies/Adverse Reactions: Allergies Allergy/AdvReac Type Severity Reaction Status Date / Time strawberry Allergy Severe Swelling Verified 10/12/18 14:37 pepper (genus Capsicum) Allergy Unknown Verified 10/12/18 14:37 black pepper Allergy Verified 10/12/18 14:37 iohexol [From Omnipaque] Allergy Rash Verified 10/12/18 14:37 red pepper Allergy Uncoded 10/12/18 14:37 Home Medications: Ambulatory Orders Folic Acid 1 mg PO DAILY 11/04/16 Tamsulosin HCl [Flomax] 0.8 mg PO DAILY 11/07/17 Omeprazole 40 mg PO DAILY 01/01/18 Warfarin Na [Coumadin -] 5 mg PO HS 01/01/18 Clopidogrel Bisulfate [Plavix -] 75 mg PO DAILY 01/12/18 Isosorbide Mononitrate [Isosorbide Mononitrate ER] 30 mg PO DAILY 01/12/18 Allopurinol [Zyloprim -] 100 mg PO DAILY 09/04/18 Famotidine 20 mg PO DAILY 09/04/18 Lisinopril [Zestril] 5 mg PO DAILY 09/04/18 Simvastatin [Zocor] 10 mg PO HS 09/04/18 Tramadol HCl 50 mg PO DAILY 09/04/18 Colchicine 0.6 mg PO DAILY 10/12/18 Isosorbide Dinitrate [Isoditrate ER] 40 mg PO DAILY 10/12/18 Anemia: No Asthma: No Cancer: Yes (PROSTATE CANCER 2011) Cardiac Disorders: Yes (coronary artery disease, cardiac bypass 10 years ago, Afib) CVA: No COPD: No CHF: No Dementia: No Diabetes: No GI Disorders: No Disorders: Yes (STONES, chronic UTIs) HTN: Yes Hypercholesterolemia: Yes Kidney Stones: Yes Liver Disease: No Seizures: No Thyroid Disease: No - Surgical History Abdominal Surgery: No Appendectomy: No Cardiac Surgery: Yes (open heart, 2 stents) Cholecystectomy: No Lung Surgery: No Neurologic Surgery: No Orthopedic Surgery: No - Immunization History Immunization Up to Date: Yes - Suicide/Smoking/Psychosocial Hx Smoking Status: Yes Smoking History: Unknown if ever smoked Have you smoked in the past 12 months: No Number of Cigarettes Smoked Daily: 0 If you are a former smoker, when did you quit?: 12 YRS AGO 'Breaking Loose' booklet given: 11/10/17 Hx Alcohol Use: No Drug/Substance Use Hx: No Substance Use Type: None Hx Substance Use Treatment: No Review of Systems - Review of Systems Comments:: 10/12/18 15:42 Constitutional: No fevers, chills, fatigue, malaise HEENT: No Rhinorrhea, nasal congestion, visual changes Cardiovascular: Chest pain. No syncope, palpitations, lightheadedness Respiratory: No Cough, SOB, Hemoptysis, Gastrointestinal: No Abdominal pain, Nausea, Vomiting, Constipation, Diarrhea, Melena Genitourinary: No Dysuria, Frequency, Urgency, Hesitancy, Hematuria, Flank pain Musculoskeletal: No Myalgia, arthralgia Skin: No rashes, itching, bruising, pallor Neurologic: No Headache, Dizziness, Numbness, Weakness, or Tingling Psychiatric: No Hallucinations. No SI or HI *Physical Exam - Vital Signs Last Vital Signs Temp Pulse Resp BP Pulse Ox 97.8 F 48 L 18 133/71 99 10/12/18 14:37 10/12/18 14:37 10/12/18 14:37 10/12/18 14:37 10/12/18 14:37 - Physical Exam Comments: 10/12/18 15:42 General Appearance: Nourished. No Apparent Distress HEENT: No Pharyngeal Erythema, Tonsillar Exudate, Tonsillar Erythema Neck: No Cervical Lymphadenopathy Respiratory/Chest: Lungs Clear, Normal Breath Sounds. No Crackles, Rales, Rhonchi, Wheezing Cardiovascular: Regular Rhythm, Regular Rate. No Murmur, Gallops, Rubs Gastrointestinal/Abdominal: Normal Bowel Sounds, Soft. No Guarding, Rebound, Tenderness Musculoskeletal: No CVA Tenderness Extremity: Normal Capillary Refill Integumentary: Normal Color, Dry, Warm Neurologic: Fully Oriented, Alert, Normal Mood/Affect, Normal Response, Heart Score/ECG Review - History History: Moderately suspicious - Electrocardiogram EKG: Non specific repolarization disturbance - Age Age: >/= 65 - Risk Factors Risk Factors Heart Score: Yes Hx Hypercholesterolemia, Yes Hx Hypertension, Yes Positive family hx of cardiac disease Based on the list above the patient has:: >/=3 risk factors or Hx atherosclerotic disease - Troponin Troponin: </= normal limit - Score Heart Score - Total: 6 #1 ECG reviewed & interpreted by me at: 15:43 10/12/18 15:43 HR 47 SD 216 QRS 112 QTc 424 Sinus Bradycardia with 1st degree AV block Non-specific T-wave abnormalities ED Treatment Course - LABORATORY CBC & Chemistry Diagram: 10/12/18 15:47 10/12/18 15:47 Medical Decision Making - Medical Decision Making 10/12/18 15:44 The patient is a 78 year old male with a history of HTN, HLD, CAD s/p stenting and bypass who presents for evaluation of chest pain. Differential includes but is not limited to: ACS, CHF, Arrhythmia, Infectious, Metabolic Derangement. Given the patient's history and physical exam, we will obtain a cbc, cmp, coags, troponin, bnp, ekg, chest plain film to evaluate further. The patient will likely require admission for further monitoring and management. We will continue to monitor and reassess while here in the ED. 10/12/18 18:28 CBC, cmp, troponin, bnp are unremarkable. Chest plain film does not demonstrate an acute process. Given the patient's significant cardiac history, he will require observation admission for further monitoring. We discussed the case with the admitting team who accepted the patient for admission. *DC/Admit/Observation/Transfer Diagnosis at time of Disposition: Chest pain Qualifiers: Chest pain type: unspecified Qualified Code(s): R07.9 - Chest pain, unspecified - Discharge Dispostion Condition at time of disposition: Stable Decision to Admit order: Yes - Referrals - Patient Instructions - Post Discharge Activity
[2018-10-12] MEDS ORDERED: NITROGLYCERIN SUBLINGUAL 1/150 0.4 MG TAB SL ONE (16:09)
[2018-10-12 16:10] LABS: BASO % 0.5 % (0-2.0); HEMATOCRIT 35.6 % (35.4-49); HEMOGLOBIN 11.7 GM/dL (11.7-16.9); LYMPH % 12.6 % (8-40); MCH 30.3 pg (25.7-33.7); MCHC 32.9 g/dl (32.0-35.9); MEAN CELL VOLUME 92.1 fl (80-96); MONO % 11.6 % (3.8-10.2); NEUT % 74.3 % (42.8-82.8); PLATELET COUNT 280 K/MM3 (134-434); RBC 3.86 M/mm3 (4.00-5.60); RDW 15.7 % (11.9-15.9); WHITE BLOOD COUNT 9.3 K/mm3 (4.0-10.0)
[2018-10-12 16:26] LABS: INR 1.19 (0.83-1.09); PROTHROMBIN TIME (PATIENT) 14.1 SEC (9.7-13.0)
[2018-10-12] MEDS ORDERED: ASPIRIN 81 MG CHEWABLE TABLETS ONE (16:27)
[2018-10-12] MEDS ORDERED: NITROGLYCERIN SUBLINGUAL 1/150 0.4 MG TAB ONE (16:27)
--- NOTE | 2018-10-12 16:36 | PDOC ---
Documentation entered by Devin Jackson SCRIBE, acting as scribe for Meena Stoddard MD. Meena Stoddard MD: This documentation has been prepared by the Manuel palmer Joel, SCRIBE, under my direction and personally reviewed by me in its entirety. I confirm that the documentation accurately reflects all work, treatment, procedures, and medical decision making performed by me. Attending Attestation - Resident Resident Name: Jef Martini - ED Attending Attestation I have performed the following: I have examined & evaluated the patient, The case was reviewed & discussed with the resident, I agree w/resident's findings & plan - HPI HPI: 10/12/18 15:35 The patient is a 78 year old male with a significant PMH of CAD s/p PCI, coronary bypass, pAfib on Coumadin, prostate CA, HTN, hyperlipidemia who presents to the emergency department for evaluation of left sided chest pressure since about 5am this morning when he woke up. The patient states he has not taken his prescribed Coumadin since last Friday due to a knee arthrocentesis procedure. feels like his anginal equivalent from prior CT/CAD, with similar type of chest pressure experienced today. took nitro this morning SL, some relief. prior ASA allergy, further testing and was deemed not present Allergies: NKA Social history: No reported cigarette, alcohol, or drug use. Cardio: Dr. Mata / Lupe 10/12/18 16:35 10/12/18 17:02 10/12/18 21:52 10/12/18 21:55 - Physicial Exam PE: 10/12/18 17:05 Agree with the resident's HPI and PE as documented in the electronic medical record. alert EOMI, PERRL, dry membranes, nl conjunctiva, anicteric; neck supple. lungs clear, RRR, abdomen soft nontender. Back nontender. COFFEY x4, no focal neuro deficits. No peripheral edema. normal color for ethnicity, WWP. 10/12/18 21:54 10/12/18 21:54 - Medical Decision Making 10/12/18 17:05 hpi as documented VS reviewed wnl DDX ACS, arthythmia, NSTEMI, cardiomyopathy, anemia, electrolyte/metabolic derangements. pleurisy, infection, PE, dissection ED course: ECG at baseline, unchanged. sinus bradycardia, nonspecific INR subtherapeutic, has been off coumadin trop neg, reassuring, however with history and typical sx, concern for ACS/ unstable angina cards cs given ASA and nitro SL trial for cp, telemetry admit tele for r/o ACS, serial trop/ekg. given anginal equivalent. 10/12/18 17:07 10/12/18 17:09 10/12/18 21:53 Heart Score/ECG Review #1 ECG reviewed & interpreted by me at: 14:20 Compared to previous ECG there are: No significant change 10/12/18 17:07 sinus bradycardia at 47 bpm, prolonged RI interval 1st degree, nonspecific T wave abnormalities, no ST segment depressions or elevations.
[2018-10-12 16:39] LABS: ALBUMIN 3.9 g/dl (3.4-5.0); ALK PHOS 201 U/L (45-117); ANION GAP 7 MMOL/L (8-16); BILIRUBIN,TOTAL 0.6 mg/dL (0.2-1); BLOOD UREA NITROGEN 25.6 mg/dL (7-18); CHLORIDE 106 mmol/L (98-107); CO2 25 mmol/L (21-32); CREATININE 1.2 mg/dL (0.55-1.3); GLUCOSE,RANDOM 104 mg/dL (74-106); MAGNESIUM 2.7 mg/dL (1.8-2.4); POTASSIUM 4.5 mmol/L (3.5-5.1); SGOT/AST 19 U/L (15-37); SGPT/ALT 23 U/L (13-61); SODIUM 138 mmol/L (136-145)
--- NOTE | 2018-10-12 16:40 | CON.CARD ---
Consult Consult Specialty:: Cardiology - History of Present Illness History of Present Illness: The patient is a 78 year old male with a history of HTN, HLD, CAD s/p stenting and bypass who presents for evaluation of chest pain. The patient reports onset of left sided chest pressure this morning that has remained persistent and felt similar to when he required his prior stents prompting his presentation to the ED for further evaluation. He states that he stopped taking his warfarin 1 week ago as well for a knee arthrocentesis and has not started taking it again. He states that he took 2 SL nitro's at home which improved his symptoms as well. He does report as well that he had an abnormal stress test 1 month ago as well. He otherwise denies fevers, chills, SOB, nausea, vomiting, abdominal pain, or changes with urination or bowel movements. 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 Blanton SANTIAGO of left PDA July 07, 2014 Dr. Blanton dizziness Hyperlipidemia Hypertension Negative MIBI stress test 2013 L[facility]. NSVT Pauses PCI SANTIAGO of p LCx March 30, 2015 Dr. Blanton PCI LCx 08/17/12 [facility] PCI LCx 07/07/14 Dr. Blanton [employer]IFUGAL CHILLER TECHNICIAN/stent right SFA 526/16 DR BLANTON Right SFA 100 occlusion July 07, 2014 Dr. Blanton s/p [employer]UG[employer] CHILLER TECHNICIAN drug elluting balloon L SFA 2015 s/p CEN[employer]IFUGAL CHILLER TECHNICIAN left SFA 09/25/17 for left foot ulcer s/p urethral stricture after cystoscopy and urethrotomy the patient went into septic shock and was treated with antibiotics and was stabilized. October 2017 MIBI 09/10 The left ventricle was normal in size. There was large sized moderate intensity posterior lateral perfusion defect with mild improvement at rest c/w mild ischemia. By gated SPECT postexercise global LVEF was normal. LVEF was calculated at 50%. - History Source History Provided By: Patient, Medical Record - Past Medical History Cardio/Vascular: Yes: AFIB, CAD, CHF, HTN, Hyperlipdemia, Other (PVD, CAD, Coronary Bypass, CAD, Stent lower left leg) Gastrointestinal: Yes: GERD Musculoskeletal: Yes: Osteoarthritis (Chronic Lower back pain) - Past Surgical History Past Surgical History: Yes: CABG, Stent (stents, both cardiac and LLE) - Alcohol/Substance Use Hx Alcohol Use: No History of Substance Use: reports: None - Smoking History Smoking history: Unknown if ever smoked Have you smoked in the past 12 months: No Aproximately how many cigarettes per day: 0 If you are a former smoker, when did you quit?: 12 YRS AGO - Social History Usual Living Arrangement: With Spouse ADL: Independent History of Recent Travel: No Home Medications - Allergies Allergies/Adverse Reactions: Allergies Allergy/AdvReac Type Severity Reaction Status Date / Time strawberry Allergy Severe Swelling Verified 10/12/18 14:37 pepper (genus Capsicum) Allergy Unknown Verified 10/12/18 14:37 black pepper Allergy Verified 10/12/18 14:37 iohexol [From Omnipaque] Allergy Rash Verified 10/12/18 14:37 Iodinated Contrast- Oral and AdvReac Rash Verified 10/12/18 19:27 IV Dye red pepper Allergy Uncoded 10/12/18 14:37 - Home Medications Home Medications: Ambulatory Orders Folic Acid 1 mg PO DAILY 11/04/16 Tamsulosin HCl [Flomax] 0.8 mg PO DAILY 11/07/17 Omeprazole 40 mg PO DAILY 01/01/18 Warfarin Na [Coumadin -] 5 mg PO HS 01/01/18 Clopidogrel Bisulfate [Plavix -] 75 mg PO DAILY 01/12/18 Allopurinol [Zyloprim -] 100 mg PO DAILY 09/04/18 Famotidine 20 mg PO DAILY 09/04/18 Lisinopril [Zestril] 5 mg PO DAILY 09/04/18 Simvastatin [Zocor] 10 mg PO HS 09/04/18 Tramadol HCl 50 mg PO DAILY 09/04/18 Colchicine 0.6 mg PO DAILY 10/12/18 Isosorbide Mononitrate [Isosorbide Mononitrate ER] 60 mg PO DAILY 10/12/18 Family Disease History - Family Disease History Family Disease History: Heart Disease: Brother (hear disease), CA: Father ( hodgkins) Review of Systems - Review of Systems Constitutional: reports: No Symptoms Eyes: reports: No Symptoms HENT: reports: No Symptoms Neck: reports: No Symptoms Cardiovascular: reports: Chest Pain Gastrointestinal: reports: No Symptoms Genitourinary: reports: No Symptoms Breasts: reports: No Symptoms Reported Musculoskeletal: reports: No Symptoms Integumentary: reports: No Symptoms Neurological: reports: No Symptoms Endocrine: reports: No Symptoms Hematology/Lymphatic: reports: No Symptoms Psychiatric: reports: No Symptoms Vital Signs: Vital Signs Temperature 97.8 F 10/12/18 14:37 Pulse Rate 48 L 10/12/18 14:37 Respiratory Rate 18 10/12/18 14:37 Blood Pressure 133/71 10/12/18 14:37 O2 Sat by Pulse Oximetry (%) 99 10/12/18 14:37 Constitutional: Yes: Well Nourished, No Distress, Calm Eyes: Yes: WNL, Conjunctiva Clear, EOM Intact HENT: Yes: WNL, Atraumatic, Normocephalic Neck: Yes: WNL, Supple, Trachea Midline Respiratory: Yes: WNL, Regular, CTA Bilaterally Gastrointestinal: Yes: WNL, Normal Bowel Sounds Renal/: Yes: WNL Cardiovascular: Yes: WNL, Regular Rate and Rhythm Musculoskeletal: Yes: WNL Extremities: Yes: WNL Integumentary: Yes: WNL Neurological: Yes: WNL, Alert, Oriented ...Motor Strength: WNL Psychiatric: Yes: WNL, Alert, Oriented - Other Data Labs, Other Data: CBC, BMP 10/12/18 15:47 INR, PTT INR 1.19 (0.83-1.09) H 10/12/18 15:47 Imaging - Results Chest X-ray: Image Reviewed (no i/e) EKG: Image Reviewed (s bradycardia) Assessment/Plan - Problems (1) BPH (benign prostatic hyperplasia) Code(s): N40.0 - BENIGN PROSTATIC HYPERPLASIA WITHOUT LOWER URINRY TRACT SYMP (2) Chest pain Assessment/Plan: Pt with chest pain at rest that was not alleviated with sl NTG. TNI < 0/02 x 2. On IV heparin (warfarin, for AF, stopped days ago in anticipation of arthroscopic knee procedure; INR subtherapeutic at 1.18). Hx stress MIBI several weeks ago showing large area of mildly intense ischemia. Discussed with Dr. Montes: pt for transfer to [facility]; planned for coroanry angiogram tomorrow. This was discussed with pt. Code(s): R07.9 - CHEST PAIN, UNSPECIFIED Qualifiers: Chest pain type: unspecified Qualified Code(s): R07.9 - Chest pain, unspecified (3) Gout Code(s): M10.9 - GOUT, UNSPECIFIED (4) ASHD (arteriosclerotic heart disease) Code(s): I25.10 - ATHSCL HEART DISEASE OF [place] CORONARY ARTERY W/O ANG PCTRS (5) Anemia Code(s): D64.9 - ANEMIA, UNSPECIFIED (6) Anxiety Code(s): F41.9 - ANXIETY DISORDER, UNSPECIFIED (7) Atrial fibrillation Assessment/Plan: AV conduction stepan for HR control. On warfarin for anticoagulation (held; on IV heparin in anticipation of coronary angiogram). Code(s): I48.91 - UNSPECIFIED ATRIAL FIBRILLATION (8) Chronic diastolic (congestive) heart failure Code(s): I50.32 - CHRONIC DIASTOLIC (CONGESTIVE) HEART FAILURE (9) Hyperlipidemia Assessment/Plan: Increase atorvastatin (to 80 mg daily; keep LDL cholesterl < 70 mg/dl. Code(s): E78.5 - HYPERLIPIDEMIA, UNSPECIFIED
[2018-10-12] MEDS ORDERED: traMADol HCL 50 MG TABLET PO PRN (19:01)
[2018-10-12] MEDS ORDERED: ACETAMINOPHEN 325 MG TABLET (FP) PO PRN (19:14)
--- NOTE | 2018-10-12 19:25 | HP ---
Admitting History and Physical - Primary Care Physician PCP: Samantha Pham - Admission Chief Complaint: Left chest pain, gassiness History of Present Illness: 78 year old M with CAD s/p CABG, s/p LCx stent 2014, PAD (s/p L SFA angioplasty 09/2017), HTN, hyperlipidemia, Osteoarthritis, GERD, presents to ED with c/o left sided (apical) chest pain x 2-3dys. Mr. Waddell reports undergoing nuclear stress testing in August 2018 which demonstrated large sized moderate intensity posterior lateral perfusion defect with mild improvement at rest consistent with mild ischemia; Calculated EF 50%. Pt states he was told disease would be medically managed. However, his chest pain has become more bothersome over the last 2-3 days, on friday morning he took a SL nitro which relieved his chest discomfort. Additional symptoms include "burping and belching" which he reports as sx similar to his first heart attack. He denies palpitations, SOB, neck/back/ arm pain, diaphoresis. Today, 10/12, Mr. Waddell presented for a routine visit with Dr. Pham for INR and possible re-initiation of coumadin after discontinuation last week friday prior to right knee arthrocentesis. 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 In ED: Vitals: BP 100/83, HR 52, RR 19, O2 sat 97% EKG without acute pathology ( SB 47bpm TRop x 2 negative, INR 1.19 Pt given ASA 325mg and SL nitro. Pt admitted for continued management of unstable angina. History Source: Patient Limitations to Obtaining History: No Limitations - Past Medical History Cardiovascular: Yes: AFIB, CAD, CHF, HTN, Hyperlipdemia, Other (PVD, CAD, Coronary Bypass, CAD, Stent lower left leg) Gastrointestinal: Yes: GERD Heme/Onc: Yes: Anemia Musculoskeletal: Yes: Osteoarthritis (Chronic Lower back pain) Additional Past Medical History: prostate cancer s/p XRT and seed implantation urethral stricture, kidney stones, severe sepsis s/p cystoscopy and urethrotomy 11/10/17 - Past Surgical History Past Surgical History: Yes: Arthrosocopy (right knee), CABG, Stent (LLE stents) Additional Past Surgical History: CAD s/p PCI - Smoking History Smoking history: Former smoker Have you smoked in the past 12 months: No Aproximately how many cigarettes per day: 20 (x 40yrs) If you are a former smoker, when did you quit?: d/frieda 2006 - Alcohol/Substance Use Hx Alcohol Use: No History of Substance Use: reports: None - Social History Usual Living Arrangement: Yes: With Spouse ADL: Independent 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 History of Recent Travel: No Other Social History: Born in [place] Home Medications - Allergies Allergies/Adverse Reactions: Allergies Allergy/AdvReac Type Severity Reaction Status Date / Time strawberry Allergy Severe Swelling Verified 10/12/18 14:37 pepper (genus Capsicum) Allergy Unknown Verified 10/12/18 14:37 black pepper Allergy Verified 10/12/18 14:37 iohexol [From Omnipaque] Allergy Rash Verified 10/12/18 14:37 Iodinated Contrast- Oral and AdvReac Rash Verified 10/12/18 19:27 IV Dye red pepper Allergy Uncoded 10/12/18 14:37 - Home Medications Home Medications: Ambulatory Orders Folic Acid 1 mg PO DAILY 11/04/16 Tamsulosin HCl [Flomax] 0.8 mg PO DAILY 11/07/17 Omeprazole 40 mg PO DAILY 01/01/18 Warfarin Na [Coumadin -] 5 mg PO HS 01/01/18 Clopidogrel Bisulfate [Plavix -] 75 mg PO DAILY 01/12/18 Allopurinol [Zyloprim -] 100 mg PO DAILY 09/04/18 Famotidine 20 mg PO DAILY 09/04/18 Lisinopril [Zestril] 5 mg PO DAILY 09/04/18 Simvastatin [Zocor] 10 mg PO HS 09/04/18 Tramadol HCl 50 mg PO DAILY 09/04/18 Colchicine 0.6 mg PO DAILY 10/12/18 Isosorbide Mononitrate [Isosorbide Mononitrate ER] 60 mg PO DAILY 10/12/18 Family Disease History - Family Disease History Family Disease History: Other: Father ( (76) hodgkins lymphoma), Mother ( (93) natural causes), Brother (alive (75) s/p PPM ) Other Family History: Brother alive (72) CAD. Brother alive (77) well Review of Systems - Review of Systems Constitutional: reports: No Symptoms Eyes: reports: No Symptoms HENT: reports: No Symptoms Neck: reports: No Symptoms Cardiovascular: reports: Chest Pain Respiratory: reports: No Symptoms Gastrointestinal: reports: Indigestion Genitourinary: reports: No Symptoms Breasts: reports: No Symptoms Reported Musculoskeletal: reports: No Symptoms Integumentary: reports: No Symptoms Neurological: reports: No Symptoms Endocrine: reports: No Symptoms Hematology/Lymphatic: reports: No Symptoms Psychiatric: reports: No Symptoms Physical Examination Vital Signs: Vital Signs Temperature 97.8 F 10/12/18 14:37 Pulse Rate 52 L 10/12/18 16:40 Respiratory Rate 10/12/18 16:40 Blood Pressure 100/83 10/12/18 16:40 O2 Sat by Pulse Oximetry (%) 97 10/12/18 16:40 Constitutional: Yes: Well Nourished, No Distress, Calm Eyes: Yes: Conjunctiva Clear, PERRL HENT: Yes: Atraumatic, Normocephalic Neck: Yes: Supple, Trachea Midline Cardiovascular: Yes: Regular Rate and Rhythm, S1, S2 Respiratory: Yes: Regular, CTA Bilaterally Gastrointestinal: Yes: Soft, Abdomen, Obese ...Rectal Exam: Yes: Deferred Breast(s): Yes: WNL Musculoskeletal: Yes: WNL Extremities: Yes: WNL Edema: No Peripheral Pulses WNL: Yes Peripheral Pulses: Left Radial: 2+, Right Radial: 2+, Left Doralis Pedis: 2+, Right Dorsalis Pedis: 2+ Integumentary: Yes: WNL Neurological: Yes: Alert, Oriented ...Motor Strength: WNL Psychiatric: Yes: Alert, Oriented Labs: CBC, BMP 10/12/18 15:47 10/12/18 15:47 Imaging - Results Chest X-ray: Report Reviewed (CXR 10/12/2018 Impression: No acute pathology. No significant change) Problem List - Problems (1) BPH (benign prostatic hyperplasia) Assessment/Plan: flomax 0.8mg daily monitor intake and output Code(s): N40.0 - BENIGN PROSTATIC HYPERPLASIA WITHOUT LOWER URINRY TRACT SYMP (2) Chest pain Assessment/Plan: trend cardiac enzymes admit to telemetry unit EKGs daily PRN SL nitro cards consulted regarding recommendation for known CAD Code(s): R07.9 - CHEST PAIN, UNSPECIFIED Qualifiers: Chest pain type: unspecified Qualified Code(s): R07.9 - Chest pain, unspecified (3) ASHD (arteriosclerotic heart disease) Assessment/Plan: plavix 75mg daily increase lipitor from 10mg to 40mg continue imdur 60mg routine echo ordered Code(s): I25.10 - ATHSCL HEART DISEASE OF [place] CORONARY ARTERY W/O ANG PCTRS (4) Atrial fibrillation Assessment/Plan: pt has been off coumadin x 1week, INR 1.19 start heparin drip and bridge back to coumadin pt currently rate controlled - Sinus jackie Code(s): I48.91 - UNSPECIFIED ATRIAL FIBRILLATION (5) Chronic lower back pain Assessment/Plan: APAP PRN moderate pain TRamadol PRN severe pain Code(s): M54.5 - LOW BACK PAIN; G89.29 - OTHER CHRONIC PAIN (6) HTN (hypertension) Assessment/Plan: lisinopril 5mg daily (hold if pt needs [facility]) cardiac diet Code(s): I10 - ESSENTIAL (PRIMARY) HYPERTENSION (7) Hyperlipidemia Assessment/Plan: c/w statin Code(s): E78.5 - HYPERLIPIDEMIA, UNSPECIFIED (8) Gout Assessment/Plan: continue home dose of allopurinol and colchicine Code(s): M10.9 - GOUT, UNSPECIFIED (9) Prophylactic measure Assessment/Plan: Protonix 40mg qhs Zantac 150mg qAM senna and colace folic acid 1mg daily OOB to chair Code(s): Z29.9 - ENCOUNTER FOR PROPHYLACTIC MEASURES, UNSPECIFIED Assessment/Plan DISPO: Full code Visit type - Emergency Visit Emergency Visit: Yes ED Registration Date: 10/12/18 Care time: The patient presented to the Emergency Department on the above date and was hospitalized for further evaluation of their emergent condition. - New Patient This patient is new to me today: Yes Date on this admission: 10/12/18 - Critical Care Critical Care patient: No
[2018-10-12] MEDS ORDERED: HEPARIN NA (PORCINE) 5,000 UNITS/ML 1ML VIAL SQ SCH (22:00)
[2018-10-12] MEDS ORDERED: ATORVASTATIN CA 40 MG TABLET (FP) PO SCH (22:00)
[2018-10-12] MEDS ORDERED: NITROGLYCERIN SUBLINGUAL 1/150 0.4 MG TAB SL PRN (22:21)
[2018-10-12] MEDS ORDERED: SENNOSIDES 8.6MG TABLET (FP) PO ONE (22:40)
[2018-10-12] MEDS ORDERED: DOCUSATE SODIUM 100 MG CAPSULE (FP) PO ONE (22:40)
[2018-10-12] MEDS ORDERED: HEPARIN NA (PORCINE) 5,000 UNITS/ML 1ML VIAL IVPUSH PRN ×2 (22:40)
[2018-10-12] MEDS ORDERED: PANTOPRAZOLE 40 MG TABLET (FP) ONE (22:40)
[2018-10-12] MEDS ORDERED: ATORVASTATIN CA 40 MG TABLET (FP) ONE (22:40)
[2018-10-12] MEDS ORDERED: HEPARIN NA (PORCINE) 5,000 UNITS/ML 1ML VIAL ONE (22:41)
[2018-10-12] MEDS: PANTOPRAZOLE 40 MG TABLET (FP) PO SCH (22:52)
[2018-10-12] MEDS: SENNOSIDES 8.6MG TABLET (FP) PO SCH (22:52)
[2018-10-12] MEDS: DOCUSATE SODIUM 100 MG CAPSULE (FP) PO SCH (22:52)
[2018-10-12] MEDS ORDERED: HEPARIN INFUSION - 25,000 UNITS/500 ML INFUS.BAG IVPB ONE (23:33)
[2018-10-12] MEDS: HEPARIN SOD,PORK IN 0.45% NACL 25,000 UNITS/500 ML INFUS.BAG IVPB SCH (23:40)
[2018-10-13] MEDS ORDERED: traMADol HCL 50 MG TABLET ONE (00:06)
[2018-10-13] MEDS ORDERED: MELATONIN 5 MG TABLETS PO PRN (03:03)
[2018-10-13 07:30] LABS: INR 1.18 (0.83-1.09)
[2018-10-13 07:32] LABS: ACTIVATED PTT 52.9 SECONDS (25.2-36.5)
[2018-10-13 07:39] LABS: BASO % 0.5 % (0-2.0); EOS % 1.7 % (0-4.5); HEMATOCRIT 33.6 % (35.4-49); HEMOGLOBIN 11.2 GM/dL (11.7-16.9); LYMPH % 14.4 % (8-40); MCH 30.4 pg (25.7-33.7); MCHC 33.3 g/dl (32.0-35.9); MEAN CELL VOLUME 91.2 fl (80-96); MEAN PLT VOLUME 8.4 fl (7.5-11.1); MONO % 12.8 % (3.8-10.2); NEUT % 70.6 % (42.8-82.8); PLATELET COUNT 224 K/MM3 (134-434); RBC 3.69 M/mm3 (4.00-5.60); RDW 15.4 % (11.9-15.9)
[2018-10-13 07:44] LABS: BLOOD UREA NITROGEN 26.3 mg/dL (7-18); CALCIUM 8.8 mg/dL (8.5-10.1); MAGNESIUM 2.4 mg/dL (1.8-2.4); N-TERMINAL BNP 394.4 pg/ml (5-450); POTASSIUM 4.5 mmol/L (3.5-5.1)
[2018-10-13] MEDS: FOLIC ACID 1 MG TABLET (FP) PO SCH (10:00)
[2018-10-13] MEDS ORDERED: ISOSORBIDE DINITRATE 40 MG PO SCH (10:00)
[2018-10-13] MEDS ORDERED: ALLOPURINOL 100 MG TABLET (FP) PO SCH (10:00)
[2018-10-13] MEDS: LISINOPRIL 5 MG TABLET (FP) PO SCH (10:00)
[2018-10-13] MEDS: DOCUSATE SODIUM 100 MG CAPSULE (FP) PO SCH ×2 (10:00→21:26)
[2018-10-13] MEDS ORDERED: COLCHICINE 0.6 MG CAP PO SCH (10:00)
[2018-10-13] MEDS: TAMSULOSIN HCL 0.4 MG CAP PO SCH (10:00)
[2018-10-13] MEDS: PANTOPRAZOLE 40 MG TABLET (FP) PO SCH (10:00)
[2018-10-13] MEDS ORDERED: TAMSULOSIN HCL 0.4 MG CAP ONE (10:19)
[2018-10-13] MEDS: CLOPIDOGREL BISULFATE 75 MG TABLET (FP) PO SCH (10:31)
[2018-10-13] MEDS: ISOSORBIDE MONONITRATE 60 MG TAB.SR.24H (FP) PO SCH (10:31)
[2018-10-13] MEDS ORDERED: RANITIDINE HCL 150 MG TABLET (FP) ONE (10:34)
--- NOTE | 2018-10-13 10:34 | EKG ---
Test Reason : Blood Pressure : / mmHG Vent. Rate : 068 BPM Atrial Rate : 068 BPM P-R Int : 208 ms QRS Dur : 124 ms QT Int : 428 ms P-R-T Axes : 081 026 123 degrees QTc Int : 455 ms SINUS RHYTHM WITH OCCASIONAL PREMATURE VENTRICULAR COMPLEXES NON-SPECIFIC INTRA-VENTRICULAR CONDUCTION DELAY ABNORMAL ECG Confirmed by Michael Bautista MD ([id number]) on 10/13/2018 10:34:51 AM Referred By: Confirmed By:Michael Bautista MD
[2018-10-13] MEDS: RANITIDINE HCL 150 MG TABLET (FP) PO SCH (10:35)
--- NOTE | 2018-10-13 10:35 | EKG ---
Test Reason : Blood Pressure : / mmHG Vent. Rate : 047 BPM Atrial Rate : 047 BPM P-R Int : 216 ms QRS Dur : 112 ms QT Int : 480 ms P-R-T Axes : 073 008 118 degrees QTc Int : 424 ms SINUS BRADYCARDIA WITH 1ST DEGREE A-V BLOCK WITH PREMATURE ATRIAL COMPLEXES IN A PATTERN OF BIGEMINY POSSIBLE ANTERIOR INFARCT , AGE UNDETERMINED ABNORMAL ECG WHEN COMPARED WITH ECG OF 04-SEP-2018 14:10, NO SIGNIFICANT CHANGE WAS FOUND Confirmed by Michael Bautista MD ([id number]) on 10/13/2018 10:35:30 AM Referred By: Confirmed By:Michael Bautista MD
--- NOTE | 2018-10-13 12:10 | PN ---
Progress Note, Physician Chief Complaint: Pt A&Ox3; siting up at bedside; presently asymptomatic; History of Present Illness: The patient is a 78 year old white male (rajiv Owusu) with a significant PMH of CAD s/p CABG and PCI,PAD s/p angioplasty, pAfib on Coumadin, prostate CA, HTN, hyperlipidemia, who presents to the emergency department for evaluation of left sided chest pressure since about 5am this morning when he woke up. The patient states he has not taken his prescribed Coumadin since last Friday due to a knee arthrocentesis procedure. feels like his anginal equivalent from prior MA/CAD, with similar type of chest pressure experienced today. took nitro this morning SL, some relief. prior ASA allergy, further testing and was deemed not present - Current Medication List Current Medications: Active Medications Acetaminophen (Tylenol -) 650 mg PO Q6H PRN PRN Reason: PAIN LEVEL 4 - 6 Atorvastatin Calcium (Lipitor -) 40 mg PO HS [facility] Last Admin: 10/12/18 22:52 Dose: 40 mg Clopidogrel Bisulfate (Plavix -) 75 mg PO DAILY [facility] Last Admin: 10/13/18 10:31 Dose: 75 mg Docusate Sodium (Colace -) 100 mg PO BID [facility] Last Admin: 10/13/18 10:00 Dose: 100 mg Folic Acid (Folic Acid -) 1 mg PO DAILY [facility] Last Admin: 10/13/18 10:00 Dose: 1 mg Heparin Sodium (Porcine) (Heparin -) 1,000 unit IVPUSH PRN PRN PRN Reason: Heparin Heparin Sodium (Porcine) (Heparin -) 5,000 unit IVPUSH PRN PRN PRN Reason: Heparin Last Admin: 10/12/18 23:35 Dose: 5,000 unit HEPARIN SOD,PORK IN 0.45% NACL (Heparin-1/2ns 25,000 Units/500) 25,000 units in 500 mls @ 20 mls/hr IVPB TITR [facility]; Protocol Last Admin: 10/12/18 23:40 Dose: 1,000 units/hr, 20 mls/hr Isosorbide Mononitrate (Imdur -) 60 mg PO DAILY [facility] Last Admin: 10/13/18 10:31 Dose: 60 mg Lisinopril (Prinivil) 5 mg PO DAILY [facility] Last Admin: 10/13/18 10:00 Dose: 5 mg Melatonin (Melatonin) 5 mg PO HS PRN PRN Reason: INSOMNIA Nitroglycerin (Nitrostat -) 0.4 mg SL Q5M PRN PRN Reason: FOR CHEST PAIN Pantoprazole Sodium (Protonix -) 40 mg PO DAILY [facility] Last Admin: 10/13/18 10:00 Dose: 40 mg Ranitidine HCl (Zantac -) 150 mg PO DAILY [facility] Last Admin: 10/13/18 10:35 Dose: 150 mg Senna (Senna -) 2 tab PO HS [facility] Last Admin: 10/12/18 22:52 Dose: 2 tab Tamsulosin HCl (Flomax -) 0.8 mg PO DAILY@0830 [facility] Last Admin: 10/13/18 10:00 Dose: 0.8 mg Tramadol HCl (Ultram -) 50 mg PO DAILY PRN PRN Reason: PAIN LEVEL 7 - 10 Last Admin: 10/12/18 23:59 Dose: 50 mg - Objective Vital Signs: Vital Signs Temperature 98.2 F 10/12/18 19:50 Pulse Rate 60 10/13/18 08:51 Respiratory Rate 15 10/13/18 08:51 Blood Pressure 153/81 10/13/18 08:51 O2 Sat by Pulse Oximetry (%) 99 10/13/18 08:51 Constitutional: Yes: Calm Eyes: Yes: WNL HENT: Yes: WNL Neck: Yes: WNL Cardiovascular: Yes: Pulse Irregular Respiratory: Yes: WNL Gastrointestinal: Yes: Soft ...Rectal Exam: Yes: Deferred Genitourinary: No: Anuria Musculoskeletal: Yes: Muscle Weakness Extremities: Yes: WNL Peripheral Pulses WNL: No Peripheral Pulses: Left Doralis Pedis: 1+, Right Dorsalis Pedis: 1+ Integumentary: Yes: WNL Neurological: Yes: WNL Psychiatric: Yes: WNL Labs: CBC, BMP 10/13/18 06:45 10/13/18 06:41 INR, PTT INR 1.18 (0.83-1.09) H 10/13/18 06:41 Abnormal Lab Results 10/12/18 10/12/18 10/12/18 15:47 15:47 15:47 RBC 3.86 L Hgb Hct Monocytes % 11.6 H PT with INR 14.10 H INR 1.19 H PTT (Actin FS) Chloride Anion Gap 7 L BUN 25.6 H Magnesium 2.7 H Alkaline Phosphatase 201 H Total LDL Cholesterol HDL Cholesterol 10/13/18 10/13/18 10/13/18 06:41 06:41 06:45 RBC 3.69 L Hgb 11.2 L Hct 33.6 L Monocytes % 12.8 H PT with INR 14.00 H INR 1.18 H PTT (Actin FS) 52.9 H Chloride 108 H Anion Gap 6 L BUN 26.3 H Magnesium Alkaline Phosphatase Total LDL Cholesterol 122 H HDL Cholesterol 36 L - ....Imaging Chest X-ray: Image Reviewed EKG: Image Reviewed Problem List - Problems (1) BPH (benign prostatic hyperplasia) Code(s): N40.0 - BENIGN PROSTATIC HYPERPLASIA WITHOUT LOWER URINRY TRACT SYMP (2) Chest pain Assessment/Plan: Pt with chest pain at rest that was not alleviated with sl NTG. TNI < 0/02 x 2. On IV heparin (warfarin, for AF, stopped days ago in anticipation of arthroscopic knee procedure; INR subtherapeutic at 1.18). Hx stress MIBI several weeks ago showing large area of mildly intense ischemia. Discussed with Dr. Montes: pt for transfer to [facility]; planned for coroanry angiogram tomorrow. This was discussed with pt. Code(s): R07.9 - CHEST PAIN, UNSPECIFIED Qualifiers: Chest pain type: unspecified Qualified Code(s): R07.9 - Chest pain, unspecified (3) Gout Code(s): M10.9 - GOUT, UNSPECIFIED (4) ASHD (arteriosclerotic heart disease) Code(s): I25.10 - ATHSCL HEART DISEASE OF [place] CORONARY ARTERY W/O ANG PCTRS (5) Anemia Code(s): D64.9 - ANEMIA, UNSPECIFIED (6) Anxiety Code(s): F41.9 - ANXIETY DISORDER, UNSPECIFIED (7) Atrial fibrillation Assessment/Plan: AV conduction stepan for HR control. On warfarin for anticoagulation (held; on IV heparin in anticipation of coronary angiogram). Code(s): I48.91 - UNSPECIFIED ATRIAL FIBRILLATION (8) Chronic diastolic (congestive) heart failure Code(s): I50.32 - CHRONIC DIASTOLIC (CONGESTIVE) HEART FAILURE (9) Hyperlipidemia Assessment/Plan: Increase atorvastatin (to 80 mg daily; keep LDL cholesterl < 70 mg/dl. Code(s): E78.5 - HYPERLIPIDEMIA, UNSPECIFIED
--- NOTE | 2018-10-13 12:48 | PN ---
Progress Note (short form) - Note Progress Note: spoke with DR Brandon RAINES pt admitted for chest pain had an abnormal stress test outpt now on heparin gtt pt feels better chest pain is less at bedside Vital Signs - 24 hr 10/12/18 10/12/18 10/12/18 14:37 16:40 19:15 Temperature 97.8 F 98.9 F Pulse Rate 48 L Pulse Rate [ 52 L Left Radial] Pulse Rate [ 60 Right Radial] Respiratory 18 19 17 Rate Blood Pressure 133/71 Blood Pressure 135/76 [Left Arm] Blood Pressure 100/83 [Right Arm] O2 Sat by Pulse 99 97 96 Oximetry (%) 10/12/18 10/12/18 10/13/18 19:50 23:45 05:03 Temperature 98.2 F Pulse Rate Pulse Rate [ Left Radial] Pulse Rate [ 66 64 67 Right Radial] Respiratory 18 20 16 Rate Blood Pressure Blood Pressure 135/76 133/75 138/68 [Left Arm] Blood Pressure [Right Arm] O2 Sat by Pulse 99 98 97 Oximetry (%) 10/13/18 10/13/18 10/13/18 06:25 08:51 11:50 Temperature 97.6 F Pulse Rate Pulse Rate [ Left Radial] Pulse Rate [ 100 H 60 81 Right Radial] Respiratory 18 15 19 Rate Blood Pressure Blood Pressure 143/73 153/81 155/75 [Left Arm] Blood Pressure [Right Arm] O2 Sat by Pulse 94 L 99 100 Oximetry (%) Current Medications Generic Name Dose Route Start Last Admin Trade Name Freq PRN Reason Stop Dose Admin Acetaminophen 650 mg 10/12/18 19:14 Tylenol - PO Q6H PRN PAIN LEVEL 4 - 6 Atorvastatin Calcium 80 mg 10/13/18 22:00 Lipitor - PO HS JORJE Clopidogrel Bisulfate 75 mg 10/13/18 10:00 10/13/18 10:31 Plavix - PO 75 mg DAILY JORJE Administration Docusate Sodium 100 mg 10/12/18 22:00 10/13/18 10:00 Colace - PO 100 mg BID JORJE Administration Folic Acid 1 mg 10/13/18 10:00 10/13/18 10:00 Folic Acid - PO 1 mg DAILY JORJE Administration Heparin Sodium (Porcine) 1,000 unit 10/12/18 22:40 Heparin - IVPUSH PRN PRN Heparin Heparin Sodium (Porcine) 5,000 unit 10/12/18 22:40 10/12/18 23:35 Heparin - IVPUSH 5,000 unit PRN PRN Administration Heparin HEPARIN SOD,PORK IN 0.45% NACL 25,000 units in 500 mls @ 20 mls/hr 10/12/18 22 :45 10/12/18 23:40 Heparin-1/2ns 25,000 Units/500 IVPB 1,000 units/hr TITR JORJE 20 mls/hr Administration Protocol 1,000 UNITS/HR Isosorbide Mononitrate 60 mg 10/13/18 10:00 10/13/18 10:31 Imdur - PO 60 mg DAILY JORJE Administration Lisinopril 5 mg 10/13/18 10:00 10/13/18 10:00 Prinivil PO 5 mg DAILY JORJE Administration Melatonin 5 mg 10/13/18 03:03 Melatonin PO HS PRN INSOMNIA Nitroglycerin 0.4 mg 10/12/18 22:21 Nitrostat - SL Q5M PRN FOR CHEST PAIN Pantoprazole Sodium 40 mg 10/12/18 22:00 10/13/18 10:00 Protonix - PO 40 mg DAILY JORJE Administration Ranitidine HCl 150 mg 10/13/18 10:00 10/13/18 10:35 Zantac - PO 150 mg DAILY JORJE Administration Senna 2 tab 10/12/18 22:00 10/12/18 22:52 Senna - PO 2 tab HS JORJE Administration Tamsulosin HCl 0.8 mg 10/13/18 08:30 10/13/18 10:00 Flomax - PO 0.8 mg DAILY@0830 JORJE Administration Tramadol HCl 50 mg 10/12/18 19:01 10/12/18 23:59 Ultram - PO 50 mg DAILY PRN Administration PAIN LEVEL 7 - 10 Laboratory Results - last 24 hr 10/12/18 10/12/18 10/12/18 15:47 15:47 15:47 WBC 9.3 RBC 3.86 L Hgb 11.7 Hct 35.6 MCV 92.1 MCH 30.3 MCHC 32.9 RDW 15.7 Plt Count 280 MPV 8.0 Absolute Neuts (auto) 6.9 Neutrophils % 74.3 Lymphocytes % 12.6 Monocytes % 11.6 H Eosinophils % 1.0 Basophils % 0.5 Nucleated RBC % 0 PT with INR 14.10 H INR 1.19 H PTT (Actin FS) Sodium 138 Potassium 4.5 Chloride 106 Carbon Dioxide 25 Anion Gap 7 L BUN 25.6 H Creatinine 1.2 Est GFR (CKD-EPI)AfAm 66.73 Est GFR (CKD-EPI)NonAf 57.57 Random Glucose 104 Calcium 9.0 Magnesium 2.7 H Total Bilirubin 0.6 AST 19 ALT 23 Alkaline Phosphatase 201 H Creatine Kinase 46 Troponin I < 0.02 B-Natriuretic Peptide Total Protein 7.0 Albumin 3.9 Triglycerides Cholesterol Total LDL Cholesterol HDL Cholesterol TSH 10/12/18 10/13/18 10/13/18 20:15 06:41 06:41 WBC RBC Hgb Hct MCV MCH MCHC RDW Plt Count MPV Absolute Neuts (auto) Neutrophils % Lymphocytes % Monocytes % Eosinophils % Basophils % Nucleated RBC % PT with INR 14.00 H INR 1.18 H PTT (Actin FS) 52.9 H Sodium 137 Potassium 4.5 Chloride 108 H Carbon Dioxide 23 Anion Gap 6 L BUN 26.3 H Creatinine 1.0 Est GFR (CKD-EPI)AfAm 83.18 Est GFR (CKD-EPI)NonAf 71.77 Random Glucose 105 Calcium 8.8 Magnesium 2.4 Total Bilirubin AST ALT Alkaline Phosphatase Creatine Kinase 44 Troponin I < 0.02 B-Natriuretic Peptide 394.4 Total Protein Albumin Triglycerides 147 Cholesterol 185 Total LDL Cholesterol 122 H HDL Cholesterol 36 L TSH 1.13 D 10/13/18 06:45 WBC 8.0 RBC 3.69 L Hgb 11.2 L Hct 33.6 L MCV 91.2 MCH 30.4 MCHC 33.3 RDW 15.4 Plt Count 224 MPV 8.4 Absolute Neuts (auto) 5.6 Neutrophils % 70.6 Lymphocytes % 14.4 Monocytes % 12.8 H Eosinophils % 1.7 Basophils % 0.5 Nucleated RBC % 0 PT with INR INR PTT (Actin FS) Sodium Potassium Chloride Carbon Dioxide Anion Gap BUN Creatinine Est GFR (CKD-EPI)AfAm Est GFR (CKD-EPI)NonAf Random Glucose Calcium Magnesium Total Bilirubin AST ALT Alkaline Phosphatase Creatine Kinase Troponin I B-Natriuretic Peptide Total Protein Albumin Triglycerides Cholesterol Total LDL Cholesterol HDL Cholesterol TSH S1 S2 irregular Lungs clear Abd- soft, NT no edema PLAN Heparin GTT for transfer to [facility] for cardiac cath Problem List - Problems (1) Chest pain Code(s): R07.9 - CHEST PAIN, UNSPECIFIED Qualifiers: Chest pain type: unspecified Qualified Code(s): R07.9 - Chest pain, unspecified (2) Hyperlipidemia Code(s): E78.5 - HYPERLIPIDEMIA, UNSPECIFIED (3) ASHD (arteriosclerotic heart disease) Code(s): I25.10 - ATHSCL HEART DISEASE OF [place] CORONARY ARTERY W/O ANG PCTRS (4) Unstable angina Code(s): I20.0 - UNSTABLE ANGINA
--- NOTE | 2018-10-13 12:49 | DS ---
Physical Examination Vital Signs: Vital Signs Temperature 97.6 F 10/13/18 11:50 Pulse Rate 81 10/13/18 11:50 Respiratory Rate 19 10/13/18 11:50 Blood Pressure 155/75 10/13/18 11:50 O2 Sat by Pulse Oximetry (%) 100 10/13/18 11:50 Labs: CBC, BMP 10/13/18 06:45 10/13/18 06:41 Discharge Summary Reason For Visit: MRSA CHEST PAIN Current Active Problems BPH (benign prostatic hyperplasia) (Acute) Chest pain (Acute) Gout (Acute) Hyperlipidemia (Acute) Prophylactic measure (Acute) Unstable angina (Acute) Hospital Course: transferred to [facility] for cardiac cath Condition: Stable - Instructions - Home Medications Comprehensive Discharge Medication List: Ambulatory Orders Folic Acid 1 mg PO DAILY 11/04/16 Tamsulosin HCl [Flomax] 0.8 mg PO DAILY 11/07/17 Omeprazole 40 mg PO DAILY 01/01/18 Warfarin Na [Coumadin -] 5 mg PO HS 01/01/18 Clopidogrel Bisulfate [Plavix -] 75 mg PO DAILY 01/12/18 Allopurinol [Zyloprim -] 100 mg PO DAILY 09/04/18 Famotidine 20 mg PO DAILY 09/04/18 Lisinopril [Zestril] 5 mg PO DAILY 09/04/18 Simvastatin [Zocor] 10 mg PO HS 09/04/18 Tramadol HCl 50 mg PO DAILY 09/04/18 Colchicine 0.6 mg PO DAILY 10/12/18 Isosorbide Mononitrate [Isosorbide Mononitrate ER] 60 mg PO DAILY 10/12/18
[2018-10-13 14:14] VITALS: BMI 31.6
[2018-10-13] MEDS: SENNOSIDES 8.6MG TABLET (FP) PO SCH (21:25)
[2018-10-13] MEDS ORDERED: ATORVASTATIN CA 80 MG TABLET (FP) PO SCH (22:00)
[2018-10-14] MEDS: HEPARIN SOD,PORK IN 0.45% NACL 25,000 UNITS/500 ML INFUS.BAG IVPB SCH ×2 (00:19→01:13)
[2018-10-14 08:18] LABS: HEMATOCRIT 33.4 % (35.4-49); HEMOGLOBIN 11.2 GM/dL (11.7-16.9); MCH 30.9 pg (25.7-33.7); MCHC 33.6 g/dl (32.0-35.9); MEAN CELL VOLUME 91.9 fl (80-96); MEAN PLT VOLUME 8.6 fl (7.5-11.1); PLATELET COUNT 214 K/MM3 (134-434); RBC 3.63 M/mm3 (4.00-5.60); RDW 15.2 % (11.9-15.9)
--- NOTE | 2018-10-14 09:52 | PN ---
Progress Note, Physician History of Present Illness: The patient is a 78 year old male with a history of HTN, HLD, CAD s/p stenting and bypass who presents for evaluation of chest pain. The patient reports onset of left sided chest pressure this morning that has remained persistent and felt similar to when he required his prior stents prompting his presentation to the ED for further evaluation. He states that he stopped taking his warfarin 1 week ago as well for a knee arthrocentesis and has not started taking it again. He states that he took 2 SL nitro's at home which improved his symptoms as well. He does report as well that he had an abnormal stress test 1 month ago as well. He otherwise denies fevers, chills, SOB, nausea, vomiting, abdominal pain, or changes with urination or bowel movements. PMH cabg lithotripsy prostate seeds Ongoing medical problems Afib diagnosed at the hospital during [facility] [employer] 08/2015 and has been on coumadin since then 2015 CAD Coronary artery bypass graft SANTIAGO of left SFA August 11, 2014 Dr. Blanton SANTIAGO of left PDA July 07, 2014 Dr. Blanton dizziness Hyperlipidemia Hypertension Negative MIBI stress test 2013 [facility]. NSVT Pauses PCI SANTIAGO of p LCx March 30, 2015 Dr. Blanton PCI LCx 08/17/12 [facility] PCI LCx 07/07/14 Dr. Blanton [employer]ONMENT[employer] PROJECT MANAGER/stent right SFA 526/16 DR BLANTON Right SFA 100 occlusion July 07, 2014 Dr. Blanton s/p [employer]ONMENTAL [employer] PROJECT MANAGER drug elluting balloon L SFA 2015 s/p ENVIRONMENTAL [employer] PROJECT MANAGER left SFA 09/25/17 for left foot ulcer s/p urethral stricture after cystoscopy and urethrotomy the patient went into septic shock and was treated with antibiotics and was stabilized. October 2017 MIBI 09/10 The left ventricle was normal in size. There was large sized moderate intensity posterior lateral perfusion defect with mild improvement at rest c/w mild ischemia. By gated SPECT postexercise global LVEF was normal. LVEF was calculated at 50%. - Current Medication List Current Medications: Active Medications Acetaminophen (Tylenol -) 650 mg PO Q6H PRN PRN Reason: PAIN LEVEL 4 - 6 Atorvastatin Calcium (Lipitor -) 80 mg PO HS [facility] Last Admin: 10/13/18 21:25 Dose: 80 mg Clopidogrel Bisulfate (Plavix -) 75 mg PO DAILY JORJE Last Admin: 10/13/18 10:31 Dose: 75 mg Docusate Sodium (Colace -) 100 mg PO BID [facility] Last Admin: 10/13/18 21:26 Dose: 100 mg Folic Acid (Folic Acid -) 1 mg PO DAILY [facility] Last Admin: 10/13/18 10:00 Dose: 1 mg Heparin Sodium (Porcine) (Heparin -) 1,000 unit IVPUSH PRN PRN PRN Reason: Heparin Heparin Sodium (Porcine) (Heparin -) 5,000 unit IVPUSH PRN PRN PRN Reason: Heparin Last Admin: 10/12/18 23:35 Dose: 5,000 unit HEPARIN SOD,PORK IN 0.45% NACL (Heparin-1/2ns 25,000 Units/500) 25,000 units in 500 mls @ 20 mls/hr IVPB TITR [facility]; Protocol Last Admin: 10/14/18 01:13 Dose: 1,000 units/hr, 20 mls/hr Isosorbide Mononitrate (Imdur -) 60 mg PO DAILY [facility] Last Admin: 10/13/18 10:31 Dose: 60 mg Lisinopril (Prinivil) 5 mg PO DAILY [facility] Last Admin: 10/13/18 10:00 Dose: 5 mg Melatonin (Melatonin) 5 mg PO HS PRN PRN Reason: INSOMNIA Nitroglycerin (Nitrostat -) 0.4 mg SL Q5M PRN PRN Reason: FOR CHEST PAIN Pantoprazole Sodium (Protonix -) 40 mg PO DAILY [facility] Last Admin: 10/13/18 10:00 Dose: 40 mg Ranitidine HCl (Zantac -) 150 mg PO DAILY [facility] Last Admin: 10/13/18 10:35 Dose: 150 mg Senna (Senna -) 2 tab PO HS [facility] Last Admin: 10/13/18 21:25 Dose: 2 tab Tamsulosin HCl (Flomax -) 0.8 mg PO DAILY@0830 [facility] Last Admin: 10/13/18 10:00 Dose: 0.8 mg Tramadol HCl (Ultram -) 50 mg PO DAILY PRN PRN Reason: PAIN LEVEL 7 - 10 Last Admin: 10/12/18 23:59 Dose: 50 mg - Objective Vital Signs: Vital Signs Temperature 97.7 F 10/14/18 05:15 Pulse Rate 64 10/14/18 05:15 Respiratory Rate 18 10/14/18 05:15 Blood Pressure 135/77 10/14/18 05:15 O2 Sat by Pulse Oximetry (%) 98 10/13/18 21:00 Eyes: Yes: WNL, Conjunctiva Clear, EOM Intact HENT: Yes: WNL, Atraumatic, Normocephalic Neck: Yes: WNL, Supple, Trachea Midline Cardiovascular: Yes: WNL, Regular Rate and Rhythm Respiratory: Yes: WNL, Regular, CTA Bilaterally Gastrointestinal: Yes: WNL, Normal Bowel Sounds Genitourinary: Yes: WNL Musculoskeletal: Yes: WNL Extremities: Yes: WNL Edema: No Integumentary: Yes: WNL Neurological: Yes: WNL, Alert, Oriented ...Motor Strength: WNL Psychiatric: Yes: WNL Labs: CBC, BMP 10/14/18 06:00 10/13/18 06:41 INR, PTT INR 1.18 (0.83-1.09) H 10/13/18 06:41 Assessment/Plan - Problems (1) BPH (benign prostatic hyperplasia) Code(s): N40.0 - BENIGN PROSTATIC HYPERPLASIA WITHOUT LOWER URINRY TRACT SYMP (2) Chest pain Assessment/Plan: Pt with chest pain at rest that was not alleviated with sl NTG. TNI < 0/02 x 2. On IV heparin (warfarin, for AF, stopped days ago in anticipation of arthroscopic knee procedure; INR subtherapeutic at 1.18). Hx stress MIBI several weeks ago showing large area of mildly intense ischemia. Discussed with Dr. Montes: pt for transfer to [facility]; planned for coroanry angiogram tomorrow. This was discussed with pt. Code(s): R07.9 - CHEST PAIN, UNSPECIFIED Qualifiers: Chest pain type: unspecified Qualified Code(s): R07.9 - Chest pain, unspecified (3) Gout Code(s): M10.9 - GOUT, UNSPECIFIED (4) ASHD (arteriosclerotic heart disease) Code(s): I25.10 - ATHSCL HEART DISEASE OF [place] CORONARY ARTERY W/O ANG PCTRS (5) Anemia Code(s): D64.9 - ANEMIA, UNSPECIFIED (6) Anxiety Code(s): F41.9 - ANXIETY DISORDER, UNSPECIFIED (7) Atrial fibrillation Assessment/Plan: AV conduction stepan for HR control. On warfarin for anticoagulation (held; on IV heparin in anticipation of coronary angiogram). Code(s): I48.91 - UNSPECIFIED ATRIAL FIBRILLATION (8) Chronic diastolic (congestive) heart failure Code(s): I50.32 - CHRONIC DIASTOLIC (CONGESTIVE) HEART FAILURE (9) Hyperlipidemia Assessment/Plan: Increase atorvastatin (to 80 mg daily; keep LDL cholesterl < 70 mg/dl. Code(s): E78.5 - HYPERLIPIDEMIA, UNSPECIFIED
[2018-10-14] MEDS: FOLIC ACID 1 MG TABLET (FP) PO SCH (10:30)
[2018-10-14] MEDS: PANTOPRAZOLE 40 MG TABLET (FP) PO SCH (10:30)
[2018-10-14] MEDS: CLOPIDOGREL BISULFATE 75 MG TABLET (FP) PO SCH (10:30)
[2018-10-14] MEDS: DOCUSATE SODIUM 100 MG CAPSULE (FP) PO SCH (10:30)
[2018-10-14] MEDS: RANITIDINE HCL 150 MG TABLET (FP) PO SCH (10:30)
[2018-10-14] MEDS: ISOSORBIDE MONONITRATE 60 MG TAB.SR.24H (FP) PO SCH (10:30)
[2018-10-14] MEDS: LISINOPRIL 5 MG TABLET (FP) PO SCH (10:30)
[2018-10-14] MEDS: TAMSULOSIN HCL 0.4 MG CAP PO SCH (10:38)
--- NOTE | 2018-10-14 11:42 | PN ---
Progress Note (short form) - Note Progress Note: has chest pain this AM Vital Signs - 24 hr 10/13/18 10/13/18 10/13/18 11:50 13:30 14:00 Temperature 97.6 F 98 F Pulse Rate 64 Pulse Rate [ 81 Right Radial] Respiratory 19 20 20 Rate Blood Pressure 107/61 Blood Pressure 155/75 [Left Arm] O2 Sat by Pulse 100 95 95 Oximetry (%) 10/13/18 10/13/18 10/13/18 17:00 21:00 21:29 Temperature 97.8 F 98.2 F Pulse Rate 48 L 52 L Pulse Rate [ Right Radial] Respiratory 20 18 Rate Blood Pressure 111/46 L 109/48 L Blood Pressure [Left Arm] O2 Sat by Pulse 98 Oximetry (%) 10/14/18 10/14/18 01:00 05:15 Temperature 98 F 97.7 F Pulse Rate 62 64 Pulse Rate [ Right Radial] Respiratory 18 18 Rate Blood Pressure 107/62 135/77 Blood Pressure [Left Arm] O2 Sat by Pulse Oximetry (%) Current Medications Generic Name Dose Route Start Last Admin Trade Name Freq PRN Reason Stop Dose Admin Acetaminophen 650 mg 10/12/18 19:14 Tylenol - PO Q6H PRN PAIN LEVEL 4 - 6 Atorvastatin Calcium 80 mg 10/13/18 22:00 10/13/18 21:25 Lipitor - PO 80 mg HS JORJE Administration Clopidogrel Bisulfate 75 mg 10/13/18 10:00 10/14/18 10:30 Plavix - PO 75 mg DAILY JORJE Administration Docusate Sodium 100 mg 10/12/18 22:00 10/14/18 10:30 Colace - PO 100 mg BID JORJE Administration Folic Acid 1 mg 10/13/18 10:00 10/14/18 10:30 Folic Acid - PO 1 mg DAILY JORJE Administration Heparin Sodium (Porcine) 1,000 unit 10/12/18 22:40 Heparin - IVPUSH PRN PRN Heparin Heparin Sodium (Porcine) 5,000 unit 10/12/18 22:40 10/12/18 23:35 Heparin - IVPUSH 5,000 unit PRN PRN Administration Heparin HEPARIN SOD,PORK IN 0.45% NACL 25,000 units in 500 mls @ 20 mls/hr 10/12/18 22 :45 10/14/18 01:13 Heparin-1/2ns 25,000 Units/500 IVPB 1,000 units/hr TITR JORJE 20 mls/hr Administration Protocol 1,000 UNITS/HR Isosorbide Mononitrate 60 mg 10/13/18 10:00 10/14/18 10:30 Imdur - PO 60 mg DAILY JORJE Administration Lisinopril 5 mg 10/13/18 10:00 10/14/18 10:30 Prinivil PO 5 mg DAILY JORJE Administration Melatonin 5 mg 10/13/18 03:03 Melatonin PO HS PRN INSOMNIA Nitroglycerin 0.4 mg 10/12/18 22:21 Nitrostat - SL Q5M PRN FOR CHEST PAIN Pantoprazole Sodium 40 mg 10/12/18 22:00 10/14/18 10:30 Protonix - PO 40 mg DAILY JORJE Administration Ranitidine HCl 150 mg 10/13/18 10:00 10/14/18 10:30 Zantac - PO 150 mg DAILY JORJE Administration Senna 2 tab 10/12/18 22:00 10/13/18 21:25 Senna - PO 2 tab HS JORJE Administration Tamsulosin HCl 0.8 mg 10/13/18 08:30 10/14/18 10:38 Flomax - PO 0.8 mg DAILY@0830 JORJE Administration Tramadol HCl 50 mg 10/12/18 19:01 10/12/18 23:59 Ultram - PO 50 mg DAILY PRN Administration PAIN LEVEL 7 - 10 Laboratory Results - last 24 hr 10/14/18 10/14/18 06:00 06:00 WBC 8.0 RBC 3.63 L Hgb 11.2 L Hct 33.4 L MCV 91.9 MCH 30.9 MCHC 33.6 RDW 15.2 Plt Count 214 MPV 8.6 PTT (Actin FS) 69.7 H S1 S2 irregular Lungs clear Abd- soft, NT no edema PLAN Heparin GTT for transfer to [facility] for cardiac cath continue with meds Problem List - Problems (1) Chest pain Code(s): R07.9 - CHEST PAIN, UNSPECIFIED Qualifiers: Chest pain type: unspecified Qualified Code(s): R07.9 - Chest pain, unspecified (2) Hyperlipidemia Code(s): E78.5 - HYPERLIPIDEMIA, UNSPECIFIED (3) ASHD (arteriosclerotic heart disease) Code(s): I25.10 - ATHSCL HEART DISEASE OF [place] CORONARY ARTERY W/O ANG PCTRS (4) Unstable angina Code(s): I20.0 - UNSTABLE ANGINA
[2018-10-14 15:33] VITALS: BP 111/57; PULSE 73; TEMP 97.3
== END 2018-10-14 17:22 | disposition short-term general hospital (02) | DRG 303 ==
LOC: JER 14:22 → JERBED 17:16 → OBSVTOIN 19:14 → J4W 10-13 13:24
PROVIDERS: ADMIT Internal Medicine; ATTEND Internal Medicine
DX: I25.110 Atherosclerotic heart disease of native coronary artery with unstable angina pectoris (principal); I50.32 Chronic diastolic (congestive) heart failure; Z98.61 Coronary angioplasty status; I48.0 Paroxysmal atrial fibrillation; Z79.01 Long term (current) use of anticoagulants; E78.5 Hyperlipidemia, unspecified; C61 Malignant neoplasm of prostate; Z95.1 Presence of aortocoronary bypass graft; M10.9 Gout, unspecified; D64.9 Anemia, unspecified; F41.9 Anxiety disorder, unspecified; I11.0 Hypertensive heart disease with heart failure; K21.9 Gastro-esophageal reflux disease without esophagitis; M54.5 Low back pain
CPT/HCPCS: 36415; 71045-TC-FY; 80048; 80053; 80061; 82550; 83721; 83735; 83880; 84443; 84484; 85025; 85027; 85610; 85730; 93005; 93010; 99285-25; G0378; J1644

== ENCOUNTER 2019-01-11 11:36 | Inpatient (IN) | payer OTHER, MEDICARE ==
--- NOTE | 2019-01-11 11:45 | PDOC ---
Rapid Medical Evaluation Time Seen by Provider: 01/11/19 11:43 Medical Evaluation: Allergies Allergy/AdvReac Type Severity Reaction Status Date / Time strawberry Allergy Severe Swelling Verified 10/12/18 14:37 pepper (genus Capsicum) Allergy Unknown Verified 10/12/18 14:37 black pepper Allergy Verified 10/12/18 14:37 iohexol [From Omnipaque] Allergy Rash Verified 10/12/18 14:37 Iodinated Contrast Media AdvReac Rash Verified 10/12/18 19:27 red pepper Allergy Uncoded 10/12/18 14:37 01/11/19 11:43 I have performed a brief in-person evaluation of this patient. The patient presents with a chief complaint of: The patient will proceed to the ED for further evaluation.chest pain since this morning at 12:30 am, also c/o gas. took nitro and aspirin w/o relief. hx of CAD s/p PCI, coronary bypass, pAfib on Coumadin, prostate CA, HTN, hyperlipidemia Pertinent physical exam findings: lungs ctab I have ordered the following: cardiac work up Discharge Disposition - Diagnosis Chest pain - Referrals - Patient Instructions - Post Discharge Activity
[2019-01-11] MEDS ORDERED: ASPIRIN 81 MG CHEWABLE TABLETS PO ONE (11:46)
--- NOTE | 2019-01-11 11:59 | CON.CARD ---
Consult Consult Specialty:: Cardiology - History of Present Illness History of Present Illness: The patient presents with a chief complaint of: The patient will proceed to the ED for further evaluation.chest pain since this morning at 12:30 am, also c/o gas. took nitro and aspirin w/o relief. hx of CAD s/p PCI, coronary bypass, pAfib on Coumadin, prostate CA, HTN, hyperlipidemia PMH cabg lithotripsy prostate seeds Ongoing medical problems Afib diagnosed at the hospital during [facility]FA CAT SCAN TECH 08/2015 and has been on coumadin since then 2015 CAD Coronary artery bypass graft SANTIAGO of left SFA August 11, 2014 Dr. Blanton SANTIAGO of left PDA July 07, 2014 Dr. Blanton dizziness Hyperlipidemia Hypertension Negative MIBI stress test 2013 [facility] NSVT Pauses PCI SANTIAGO of p LCx March 30, 2015 Dr. Blanton PCI LCx 08/17/12 [facility]anny [facility] PCI LCx 07/07/14 Dr. Blanton CAT SCAN TECH/stent right SFA 526/16 DR BLANTON Right SFA 100 occlusion July 07, 2014 Dr. Blanton s/p CAT SCAN TECH drug elluting balloon L SFA 2015 s/p CAT SCAN TECH left SFA 09/25/17 for left foot ulcer s/p urethral stricture after cystoscopy and urethrotomy the patient went into septic shock and was treated with antibiotics and was stabilized. October 2017 - Past Medical History Cardio/Vascular: Yes: AFIB, CAD, CHF, HTN, Hyperlipdemia, Other (PVD, CAD, Coronary Bypass, CAD, Stent lower left leg) Gastrointestinal: Yes: GERD Musculoskeletal: Yes: Osteoarthritis (Chronic Lower back pain) - Past Surgical History Past Surgical History: Yes: CABG, Stent (stents, both cardiac and LLE) - Alcohol/Substance Use Hx Alcohol Use: No History of Substance Use: reports: None - Smoking History Smoking history: Former smoker Have you smoked in the past 12 months: No Aproximately how many cigarettes per day: 0 If you are a former smoker, when did you quit?: 2002 - Social History Usual Living Arrangement: With Spouse ADL: Independent 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 [employer] History of Recent Travel: No Home Medications - Allergies Allergies/Adverse Reactions: Allergies Allergy/AdvReac Type Severity Reaction Status Date / Time strawberry Allergy Severe Swelling Verified 01/11/19 11:47 pepper (genus Capsicum) Allergy Unknown Verified 01/11/19 11:47 black pepper Allergy Verified 01/11/19 11:47 iohexol [From Omnipaque] Allergy Rash Verified 01/11/19 11:47 Iodinated Contrast Media AdvReac Rash Verified 01/11/19 11:47 red pepper Allergy Uncoded 01/11/19 11:47 - Home Medications Home Medications: Ambulatory Orders Folic Acid 1 mg PO DAILY 11/04/16 Tamsulosin HCl [Flomax] 0.8 mg PO DAILY 11/07/17 Omeprazole 40 mg PO DAILY 01/01/18 Warfarin Na [Coumadin -] 5 mg PO HS 01/01/18 Clopidogrel Bisulfate [Plavix -] 75 mg PO DAILY 01/12/18 Allopurinol [Zyloprim -] 100 mg PO DAILY 09/04/18 Famotidine 20 mg PO DAILY 09/04/18 Lisinopril [Zestril] 5 mg PO DAILY 09/04/18 Simvastatin [Zocor] 10 mg PO HS 09/04/18 Tramadol HCl 50 mg PO DAILY 09/04/18 Colchicine 0.6 mg PO DAILY 10/12/18 Isosorbide Mononitrate [Isosorbide Mononitrate ER] 60 mg PO DAILY 10/12/18 Vital Signs: Vital Signs Temperature 97.3 F L 01/11/19 11:43 Pulse Rate 55 L 01/11/19 11:43 Respiratory Rate 01/11/19 11:43 Blood Pressure 140/59 L 01/11/19 11:43 O2 Sat by Pulse Oximetry (%) 98 01/11/19 11:43
--- NOTE | 2019-01-11 12:00 | CON.CARD ---
Consult Consult Specialty:: Cardiology - History of Present Illness History of Present Illness: The patient presents with a chief complaint of: The patient will proceed to the ED for further evaluation.chest pain since this morning at 12:30 am, also c/o gas. took nitro and aspirin w/o relief. hx of CAD s/p PCI, coronary bypass, pAfib on Coumadin, prostate CA, HTN, hyperlipidemia PMH cabg lithotripsy prostate seeds Ongoing medical problems Afib diagnosed at the hospital during SFA EDGE KITTER 08/2015 and has been on coumadin since then 2015 CAD Coronary artery bypass graft SANTIAGO of left SFA August 11, 2014 Dr. Blanton SANTIAGO of left PDA July 07, 2014 Dr. Blanton dizziness Hyperlipidemia Hypertension Negative MIBI stress test 2013 Milnor Pres[facility]. NSVT Pauses PCI SANTIAGO of p LCx March 30, [address] Dr. Blanton PCI LCx 08/17/12 Franny [facility] PCI LCx 07/07/14 Dr. Blanton EDGE KITTER/stent right SFA 526/16 DR BLANTON Right SFA 100 occlusion July 07, 2014 Dr. Blanton s/p EDGE KITTER drug elluting balloon L SFA 2015 s/p EDGE KITTER left SFA 09/25/17 for left foot ulcer s/p urethral stricture after cystoscopy and urethrotomy the patient went into septic shock and was treated with antibiotics and was stabilized. October 2017 - History Source History Provided By: Patient, Medical Record - Past Medical History Cardio/Vascular: Yes: AFIB, CAD, CHF, HTN, Hyperlipdemia, Other (PVD, CAD, Coronary Bypass, CAD, Stent lower left leg) Gastrointestinal: Yes: GERD Musculoskeletal: Yes: Osteoarthritis (Chronic Lower back pain) - Past Surgical History Past Surgical History: Yes: CABG, Stent (stents, both cardiac and LLE) - Alcohol/Substance Use Hx Alcohol Use: No History of Substance Use: reports: None - Smoking History Smoking history: Former smoker Have you smoked in the past 12 months: No Aproximately how many cigarettes per day: 0 If you are a former smoker, when did you quit?: 2002 - Social History Usual Living Arrangement: With Spouse ADL: Independent 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 History of Recent Travel: No Home Medications - Allergies Allergies/Adverse Reactions: Allergies Allergy/AdvReac Type Severity Reaction Status Date / Time strawberry Allergy Severe Swelling Verified 01/11/19 11:47 pepper (genus Capsicum) Allergy Unknown Verified 01/11/19 11:47 black pepper Allergy Verified 01/11/19 11:47 iohexol [From Omnipaque] Allergy Rash Verified 01/11/19 11:47 Iodinated Contrast Media AdvReac Rash Verified 01/11/19 11:47 red pepper Allergy Uncoded 01/11/19 11:47 - Home Medications Home Medications: Ambulatory Orders Folic Acid 1 mg PO DAILY 11/04/16 Tamsulosin HCl [Flomax] 0.8 mg PO DAILY 11/07/17 Omeprazole 40 mg PO DAILY 01/01/18 Allopurinol [Zyloprim -] 100 mg PO DAILY 09/04/18 Lisinopril [Zestril] 5 mg PO DAILY 09/04/18 Tramadol HCl 50 mg PO DAILY PRN 09/04/18 Colchicine 0.6 mg PO DAILY 10/12/18 Isosorbide Mononitrate [Isosorbide Mononitrate ER] 60 mg PO DAILY 10/12/18 Review of Systems - Review of Systems Constitutional: reports: No Symptoms Eyes: reports: No Symptoms HENT: reports: No Symptoms Neck: reports: No Symptoms Cardiovascular: reports: Chest Pain Respiratory: reports: No Symptoms Gastrointestinal: reports: Dysphagia, Other (GAS/Epigastric discomfort) Genitourinary: reports: No Symptoms Breasts: reports: No Symptoms Reported Musculoskeletal: reports: No Symptoms Integumentary: reports: No Symptoms Neurological: reports: No Symptoms Endocrine: reports: No Symptoms Hematology/Lymphatic: reports: No Symptoms Psychiatric: reports: No Symptoms Vital Signs: Vital Signs Temperature 97.3 F L 01/11/19 11:43 Pulse Rate 55 L 01/11/19 11:43 Respiratory Rate 01/11/19 11:43 Blood Pressure 140/59 L 01/11/19 11:43 O2 Sat by Pulse Oximetry (%) 98 01/11/19 11:43 Constitutional: Yes: Well Nourished, No Distress, Calm Eyes: Yes: WNL, Conjunctiva Clear, EOM Intact HENT: Yes: WNL, Atraumatic, Normocephalic Neck: Yes: WNL, Supple, Trachea Midline Respiratory: Yes: WNL, Regular, CTA Bilaterally Gastrointestinal: Yes: WNL, Normal Bowel Sounds Renal/: Yes: WNL Cardiovascular: Yes: WNL, Regular Rate and Rhythm Musculoskeletal: Yes: WNL Extremities: Yes: WNL Integumentary: Yes: WNL Neurological: Yes: WNL, Alert, Oriented ...Motor Strength: WNL Psychiatric: Yes: WNL, Alert, Oriented - Other Data Labs, Other Data: Laboratory Tests 01/11/19 01/11/19 01/11/19 14:06 14:06 14:06 WBC 7.2 RBC 3.73 L Hgb 11.5 L Hct 34.6 L MCV 92.8 MCH 30.8 MCHC 33.2 RDW 16.1 H Plt Count 267 D MPV 8.7 Absolute Neuts (auto) 4.8 Neutrophils % 66.7 Lymphocytes % 13.2 Monocytes % 16.6 H Eosinophils % 2.7 Basophils % 0.8 Nucleated RBC % 0 PT with INR INR Sodium 137 Potassium 4.9 Chloride 104 Carbon Dioxide 25 Anion Gap 9 BUN 25.4 H Creatinine 1.4 H Est GFR (CKD-EPI)AfAm 55.38 Est GFR (CKD-EPI)NonAf 47.78 Random Glucose 99 Calcium 9.4 Magnesium 2.5 H Total Bilirubin 0.6 AST 49 H ALT 63 H Alkaline Phosphatase 421 H Creatine Kinase 50 Troponin I < 0.02 Total Protein 6.2 L Albumin 3.3 L Urine Color Urine Appearance Urine pH Ur Specific [place] Urine Protein Urine Glucose (UA) Urine Ketones Urine Blood Urine Nitrite Urine Bilirubin Urine Urobilinogen Ur Leukocyte Esterase Urine WBC (Auto) Urine RBC (Auto) Urine Casts (Auto) U Epithel Cells (Auto) Urine Bacteria (Auto) 01/11/19 01/11/19 14:06 15:55 WBC RBC Hgb Hct MCV MCH MCHC RDW Plt Count MPV Absolute Neuts (auto) Neutrophils % Lymphocytes % Monocytes % Eosinophils % Basophils % Nucleated RBC % PT with INR 19.80 H INR 1.67 H Sodium Potassium Chloride Carbon Dioxide Anion Gap BUN Creatinine Est GFR (CKD-EPI)AfAm Est GFR (CKD-EPI)NonAf Random Glucose Calcium Magnesium Total Bilirubin AST ALT Alkaline Phosphatase Creatine Kinase Troponin I Total Protein Albumin Urine Color Dk yellow Urine Appearance Turbid Urine pH 5.5 D Ur Specific [place] 1.025 Urine Protein 1+ H Urine Glucose (UA) Negative Urine Ketones Trace H Urine Blood Trace Urine Nitrite Negative Urine Bilirubin 1+ H Urine Urobilinogen 1.0 Ur Leukocyte Esterase 3+ H Urine WBC (Auto) 133 Urine RBC (Auto) 8 Urine Casts (Auto) 57 U Epithel Cells (Auto) 0.3 Urine Bacteria (Auto) 3214.3 Imaging - Results Chest X-ray: Image Reviewed (wnl) EKG: Image Reviewed (s jackie 1 st degree avb incomplete LBBB) Problem List - Problems (1) KWAME (acute kidney injury) Code(s): N17.9 - ACUTE KIDNEY FAILURE, UNSPECIFIED (2) Chest pain Code(s): R07.9 - CHEST PAIN, UNSPECIFIED Qualifiers: Chest pain type: unspecified Qualified Code(s): R07.9 - Chest pain, unspecified (3) ASHD (arteriosclerotic heart disease) Code(s): I25.10 - ATHSCL HEART DISEASE OF [place] CORONARY ARTERY W/O ANG PCTRS (4) Anemia Code(s): D64.9 - ANEMIA, UNSPECIFIED (5) Anxiety Code(s): F41.9 - ANXIETY DISORDER, UNSPECIFIED (6) Atrial fibrillation Code(s): I48.91 - UNSPECIFIED ATRIAL FIBRILLATION (7) BPH (benign prostatic hyperplasia) Code(s): N40.0 - BENIGN PROSTATIC HYPERPLASIA WITHOUT LOWER URINRY TRACT SYMP (8) Chronic diastolic (congestive) heart failure Code(s): I50.32 - CHRONIC DIASTOLIC (CONGESTIVE) HEART FAILURE (9) Chronic lower back pain Code(s): M54.5 - LOW BACK PAIN; G89.29 - OTHER CHRONIC PAIN (10) Gout Code(s): M10.9 - GOUT, UNSPECIFIED (11) HTN (hypertension) Code(s): I10 - ESSENTIAL (PRIMARY) HYPERTENSION (12) Hematuria Code(s): R31.9 - HEMATURIA, UNSPECIFIED Qualifiers: Hematuria type: gross Qualified Code(s): R31.0 - Gross hematuria (13) Herpes simplex Code(s): B00.9 - HERPESVIRAL INFECTION, UNSPECIFIED (14) Hx of CABG Code(s): Z95.1 - PRESENCE OF AORTOCORONARY BYPASS GRAFT (15) Hyperlipidemia Code(s): E78.5 - HYPERLIPIDEMIA, UNSPECIFIED (16) Hyperlipidemia Code(s): E78.5 - HYPERLIPIDEMIA, UNSPECIFIED (17) MRSA bacteremia Code(s): R78.81 - BACTEREMIA (18) Obesity Code(s): E66.9 - OBESITY, UNSPECIFIED (19) PAD (peripheral artery disease) Code(s): I73.9 - PERIPHERAL VASCULAR DISEASE, UNSPECIFIED (20) Prophylactic measure Code(s): Z29.9 - ENCOUNTER FOR PROPHYLACTIC MEASURES, UNSPECIFIED (21) Prostate cancer Code(s): C61 - MALIGNANT NEOPLASM OF PROSTATE (22) Sepsis Code(s): A41.9 - SEPSIS, UNSPECIFIED ORGANISM (23) Septic shock Code(s): A41.9 - SEPSIS, UNSPECIFIED ORGANISM; R65.21 - SEVERE SEPSIS WITH SEPTIC SHOCK (24) Supratherapeutic INR Code(s): R79.1 - ABNORMAL COAGULATION PROFILE (25) Unstable angina Code(s): I20.0 - UNSTABLE ANGINA (26) Urinary retention Code(s): R33.9 - RETENTION OF URINE, UNSPECIFIED Assessment/Plan CP sx atypical ? GI? r/o ME negative cabg lithotripsy prostate seeds Ongoing medical problems Afib diagnosed at the hospital during SFA EDGE KITTER 08/2015 and has been on coumadin since then 2015 CAD Coronary artery bypass graft SANTIAGO of left SFA August 11, 2014 Dr. Blanton SANTIAGO of left PDA July 07, 2014 Dr. Blanton dizziness Hyperlipidemia Hypertension Negative MIBI stress test 2013 Mil[facility] Pres[facility]. NSVT Pauses PCI SANTIAGO of p LCx March 30, 2015 Dr. Blanton PCI LCx 08/17/12 Franny [facility] PCI LCx 07/07/14 Dr. Blanton EDGE KITTER/stent right SFA 526/16 DR BLANTON Right SFA 100 occlusion July 07, 2014 Dr. Blanton s/p EDGE KITTER drug elluting balloon L SFA 2015 s/p EDGE KITTER left SFA 09/25/17 for left foot ulcer s/p urethral stricture after cystoscopy and urethrotomy the patient went into septic shock and was treated with antibiotics and was stabilized. October 2017 Plan; telemetry r/o mi AC keep inr 2-3 restart asa
[2019-01-11] MEDS ORDERED: ASPIRIN 81 MG CHEWABLE TABLETS ONE (13:32)
--- NOTE | 2019-01-11 13:42 | PDOC ---
History of Present Illness - General Chief Complaint: Chest Pain Stated Complaint: CHEST PAIN Time Seen by Provider: 01/11/19 11:43 History Source: Patient Exam Limitations: No Limitations - History of Present Illness Initial Comments: 01/11/19 13:55 Alf Waddell is a 78yM w PMHx CAD s/p PCI, coronary bypass, stentsx2, pAfib on Coumadin, prostate CA, HTN, hyperlipidemia, GERD presenting with chest pain. Started at 12:30a this morning while lying in bed, localized L chest underneath breast tissue. Took 3 nitro pills without relief. Associated frequent belching. Has had similar chest pain episodes in past at rest relieved with nitro. Past smoker, fam hx cardiac issues. Denies fever, cough, nausea/vomiting, SOB, AB pain, urinary/bowel mvmt changes. Past History - Past Medical History Allergies/Adverse Reactions: Allergies Allergy/AdvReac Type Severity Reaction Status Date / Time strawberry Allergy Severe Swelling Verified 01/11/19 11:47 pepper (genus Capsicum) Allergy Unknown Verified 01/11/19 11:47 black pepper Allergy Verified 01/11/19 11:47 iohexol [From Omnipaque] Allergy Rash Verified 01/11/19 11:47 Iodinated Contrast Media AdvReac Rash Verified 01/11/19 11:47 red pepper Allergy Uncoded 01/11/19 11:47 Home Medications: Ambulatory Orders Folic Acid 1 mg PO DAILY 11/04/16 Tamsulosin HCl [Flomax] 0.8 mg PO DAILY 11/07/17 Omeprazole 40 mg PO DAILY 01/01/18 Allopurinol [Zyloprim -] 100 mg PO DAILY 09/04/18 Lisinopril [Zestril] 5 mg PO DAILY 09/04/18 Tramadol HCl 50 mg PO DAILY PRN 09/04/18 Colchicine 0.6 mg PO DAILY 10/12/18 Isosorbide Mononitrate [Isosorbide Mononitrate ER] 60 mg PO DAILY 10/12/18 Anemia: No Asthma: No Cancer: Yes (PROSTATE CANCER 2011) Cardiac Disorders: Yes (coronary artery disease, cardiac bypass 10 years ago, Afib) CVA: No COPD: No CHF: No Dementia: No Diabetes: No GI Disorders: No Disorders: Yes (STONES, chronic UTIs) HTN: Yes Hypercholesterolemia: Yes Kidney Stones: Yes Liver Disease: No Seizures: No Thyroid Disease: No - Surgical History Abdominal Surgery: No Appendectomy: No Cardiac Surgery: Yes (open heart, 2 stents) Cholecystectomy: No Lung Surgery: No Neurologic Surgery: No Orthopedic Surgery: No - Immunization History Immunization Up to Date: Yes - Suicide/Smoking/Psychosocial Hx Smoking Status: Yes Smoking History: Former smoker Have you smoked in the past 12 months: No Number of Cigarettes Smoked Daily: 0 If you are a former smoker, when did you quit?: 2002 Information on smoking cessation initiated: No 'Breaking Loose' booklet given: 11/10/17 Hx Alcohol Use: No Drug/Substance Use Hx: No Substance Use Type: None Hx Substance Use Treatment: No Review of Systems - Review of Systems Constitutional: No: Chills, Fever HEENTM: No: Eye Pain, Ear Discharge, Nose Pain, Throat Pain Respiratory: No: Cough, Shortness of Breath Cardiac (ROS): Yes: Chest Pain. No: Palpitations, Syncope ABD/GI: No: Abdominal Distended, Constipated, Diarrhea, Nausea, Vomiting : No: Burning, Dysuria, Discharge, Frequency, Flank Pain, Hematuria Musculoskeletal: No: Back Pain, Joint Pain, Joint Swelling, Muscle Pain Integumentary: No: Bruising, Change in Color, Dryness, Erythema Neurological: No: Headache, Numbness, Seizure, Tingling, Tremors Psychiatric: No: Anxiety, Depression, Stressors Endocrine: No: Excessive Sweating, Flushing, Intolerance to Cold, Intolerance to Heat Hematologic/Lymphatic: No: Anemia, Blood Clots *Physical Exam - Vital Signs Last Vital Signs Temp Pulse Resp BP Pulse Ox 97.3 F L 55 L 19 140/59 L 98 01/11/19 11:43 01/11/19 11:43 01/11/19 11:43 01/11/19 11:43 01/11/19 11:43 - Physical Exam General Appearance: Yes: Nourished, Appropriately Dressed. No: Apparent Distress HEENT: positive: EOMI, CHERRY, Normal Voice. negative: Scleral Icterus (R), Scleral Icterus (L), Nasal Congestion, Rhinorrhea, Lesions Respiratory/Chest: positive: Lungs Clear, Normal Breath Sounds, Other (healed sternal scar). negative: Chest Tender, Respiratory Distress Cardiovascular: positive: Regular Rhythm, Regular Rate, S1, S2. negative: Edema , Murmur Gastrointestinal/Abdominal: positive: Normal Bowel Sounds, Flat, Soft. negative : Tender, Organomegaly Musculoskeletal: negative: CVA Tenderness (R), CVA Tenderness (L) Extremity: positive: Normal Capillary Refill. negative: Swelling Integumentary: positive: Normal Color Neurologic: positive: Fully Oriented, Alert, Normal Response, Responsive. negative: Numbness, Confused, Disoriented Heart Score/ECG Review - History History: Moderately suspicious - Electrocardiogram EKG: Non specific repolarization disturbance - Age Age: >/= 65 - Risk Factors Risk Factors Heart Score: Yes Hx Hypercholesterolemia, Yes Hx Hypertension, No Hx Diabetes, Yes Smoking History, Yes Positive family hx of cardiac disease, No Hx Obesity Based on the list above the patient has:: >/=3 risk factors or Hx atherosclerotic disease - Troponin Troponin: </= normal limit - Score Heart Score - Total: 6 ED Treatment Course - LABORATORY CBC & Chemistry Diagram: 01/11/19 14:06 01/11/19 14:06 Medical Decision Making - Medical Decision Making 01/11/19 13:40 EKG CXR CBC CMP trop coags UA Given 162 aspirin, pepcid, 1L NS EKG shows sinus bradycardia with LBBB, unchanged ST depression V5-6, T wave inversion avL, HR 52 QTc 435 Hgb 11, Cr 1.4 - KWAME, ordered UA, ALP 421, neg trop CXR clear lung acosta, unchanged pending UA Alf Waddell is a 78yM w PMHx CAD s/p PCI, coronary bypass, stentsx2, pAfib on Coumadin, prostate CA, HTN, hyperlipidemia, GERD presenting with chest pain. Likely reflux d/t chest pain lying in bed w belching. High risk of ACS w significant cardiac pmhx. EKG shows sinus bradycardia w LBBB and negative trop. No lung infections w clear lung sounds, clear lung acosta on CXR. Cr 1.4 concerning for KWAME, pending UA. Given aspirin, pepcid, 1L NS Admitted to tele Dr Pham for chest pain, KWAME in setting of high HEART score PCP Ankit Moore) [employer] *DC/Admit/Observation/Transfer Diagnosis at time of Disposition: KWAME (acute kidney injury) Chest pain Qualifiers: Chest pain type: unspecified Qualified Code(s): R07.9 - Chest pain, unspecified - Discharge Dispostion Condition at time of disposition: Good - Referrals - Patient Instructions - Post Discharge Activity
[2019-01-11] MEDS ORDERED: SODIUM CHLORIDE 0.9% 500 ML INFUS.BAG IV ONE (14:17)
[2019-01-11 14:26] LABS: BASO % 0.8 % (0-2.0); EOS % 2.7 % (0-4.5); HEMATOCRIT 34.6 % (35.4-49); HEMOGLOBIN 11.5 GM/dL (11.7-16.9); LYMPH % 13.2 % (8-40); MCH 30.8 pg (25.7-33.7); MCHC 33.2 g/dl (32.0-35.9); MEAN CELL VOLUME 92.8 fl (80-96); MEAN PLT VOLUME 8.7 fl (7.5-11.1); MONO % 16.6 % (3.8-10.2); NEUT % 66.7 % (42.8-82.8); PLATELET COUNT 267 K/MM3 (134-434); RBC 3.73 M/mm3 (4.00-5.60); RDW 16.1 % (11.9-15.9); WHITE BLOOD COUNT 7.2 K/mm3 (4.0-10.0)
[2019-01-11 14:36] LABS: INR 1.67 (0.83-1.09); PROTHROMBIN TIME (PATIENT) 19.8 SEC (9.7-13.0)
[2019-01-11 14:49] LABS: ALBUMIN 3.3 g/dl (3.4-5.0); BILIRUBIN,TOTAL 0.6 mg/dL (0.2-1); BLOOD UREA NITROGEN 25.4 mg/dL (7-18); CALCIUM 9.4 mg/dL (8.5-10.1); CREATININE 1.4 mg/dL (0.55-1.3); MAGNESIUM 2.5 mg/dL (1.8-2.4); POTASSIUM 4.9 mmol/L (3.5-5.1); TOT PROT 6.2 g/dl (6.4-8.2)
[2019-01-11] MEDS ORDERED: FAMOTIDINE 20 MG/50 ML IVPB 20 MG/50 ML MG IVPB ONE ×2 (15:22→15:28)
--- NOTE | 2019-01-11 16:07 | PDOC ---
Attending Attestation - Resident Resident Name: Ross Tafoya - ED Attending Attestation I have performed the following: I have examined & evaluated the patient, The case was reviewed & discussed with the resident, I agree w/resident's findings & plan, Exceptions are as noted - HPI HPI: 01/11/19 15:58 78-year-old male with a past medical history of coronary artery disease status post CABG and stents, paroxysmal A. fib on Eliquis, prostate CA, hypertension, hyperlipidemia, GERD presents emergency Department with chest pain since 12:30 AM this morning. Patient reports the pain began while he was lying in bed and is localized to his left lower chest. He took 3 nitroglycerin pills with no relief. He reports similar chest pain over the last month intermittently, also at rest, however that pain has always resolved with nitroglycerin. He also reports frequent belching which at times relieves some of this pain but at times does not. Denies any associated dizziness, diaphoresis, nausea, vomiting, shortness of breath. Denies headache, focal weakness or numbness, abdominal pain , diarrhea, urinary symptoms, lower extremity edema. He has been compliant with all of his medications. PMD: Dr. Taylor Cards: Dr. Webb - Physicial Exam PE: 01/11/19 16:01 agree with resident exam - Medical Decision Making 01/11/19 15:10 78yo M with hx CAD, CABG, stents presents to the ED with LSCP at rest, not relieved with nitro Vitals with mild bradycardia, but otherwise unremarkable Exam wnl EKG unchanged DDx includes ACS vs PNA vs GERD vs MSK pain. Unlikely PE as no risk factors, SOB, calf swelling or pain Pt given two aspirin here (took home dose 81mg this AM) Given high risk for ACS, anticipate tele obs admission 01/11/19 16:[address] Taylor, pt accepted for admission to his service Case discussed in detail with admitting physician including history, physical exam and ancillary studies. Admitting physician has assumed care for the patient, will follow all pending diagnostics and will complete the evaluation and treatment. Heart Score/ECG Review #1 01/11/19 16:01 Twelve-lead EKG was performed and reviewed by me. Sinus bradycardia, rate 52. First-degree AV block. Normal axis. No ST elevations. T wave inversion in aVL with sub-millimeter to [address] depressions in aVL, V5 and V6. When compared to EKG from 10/12/2018, no significant change.
[2019-01-11 16:18] LABS: EPI CELLS 0.3 /HPF (0-5/HPF); HYALINE CASTS 57 /lpf (0-8); PH,URINE 5.5 (5.0-8.0); URINE APPEARANCE TURBID; URINE BACTERIA 3214.3 /hpf (NEGATIVE); URINE BILIRUBIN 1+ (NEGATIVE); URINE COLOR DK YELLOW; URINE GLUCOSE (UA) NEGATIVE (NEGATIVE); URINE KETONE TRACE (NEGATIVE); URINE LEUK ESTERASE 3+ (NEGATIVE); URINE NITRITE NEGATIVE (NEGATIVE); URINE PROTEIN 1+ (NEGATIVE); URINE RBC 8 /hpf (0-4); URINE WBC 133 /hpf (0-5)
--- NOTE | 2019-01-11 18:22 | EKG ---
Test Reason : Blood Pressure : / mmHG Vent. Rate : 052 BPM Atrial Rate : 052 BPM P-R Int : 232 ms QRS Dur : 116 ms QT Int : 468 ms P-R-T Axes : -26 027 133 degrees QTc Int : 435 ms SINUS BRADYCARDIA WITH 1ST DEGREE A-V BLOCK LOW VOLTAGE QRS INCOMPLETE LEFT BUNDLE BRANCH BLOCK ABNORMAL ECG WHEN COMPARED WITH ECG OF 12-OCT-2018 19:31, PREMATURE VENTRICULAR COMPLEXES ARE NO LONGER PRESENT Confirmed by KAMILAH SIMS, VIRY ([id number]) on 01/11/2019 6:22:22 PM Referred By: Confirmed By:VIRY TRIANA MD
--- NOTE | 2019-01-11 18:49 | HP ---
Admitting History and Physical - Primary Care Physician PCP: Samantha Pham - Admission Chief Complaint: Chest pain Abdominal bloating History of Present Illness: 78-year-old male with a past medical history of coronary artery disease status post CABG and stents, paroxysmal A. fib on Eliquis, prostate CA, hypertension, hyperlipidemia, GERD presents emergency Department with chest pain since 12:30 AM this morning. Patient reports the pain began while he was lying in bed and is localized to his left lower chest. He took 3 nitroglycerin pills with no relief. He reports similar chest pain over the last month intermittently, also at rest, however that pain has always resolved with nitroglycerin. He also reports frequent belching which at times relieves some of this pain but at times does not. Denies any associated dizziness, diaphoresis, nausea, vomiting, shortness of breath. Denies headache, focal weakness or numbness, abdominal pain , diarrhea, urinary symptoms, lower extremity edema. He has been compliant with all of his medications. - Past Medical History Cardiovascular: Yes: AFIB, CAD, CHF, HTN, Hyperlipdemia, Other (PVD, CAD, Coronary Bypass, CAD, Stent lower left leg) Gastrointestinal: Yes: GERD Heme/Onc: Yes: Anemia Musculoskeletal: Yes: Osteoarthritis (Chronic Lower back pain) Additional Past Medical History: cabg lithotripsy prostate seeds Ongoing medical problems Afib diagnosed at the hospital during SFA CYLINDER INSPECTOR 08/2015 and has been on coumadin since then 2015 CAD Coronary artery bypass graft SANTIAGO of left SFA August 11, 2014 Dr. Blanton SANTIAGO of left PDA July 07, 2014 Dr. Blanton dizziness Hyperlipidemia Hypertension Negative MIBI stress test 2013 Dulzura Presb. NSVT Pauses PCI SANTIAGO of p LCx March 30, 2015 Dr. Blanton PCI LCx 08/17/12 [facility] PCI LCx 07/07/14 Dr. Blanton CYLINDER INSPECTOR/stent right SFA 526/16 DR BLANTON Right SFA 100 occlusion July 07, 2014 Dr. Blanton s/p CYLINDER INSPECTOR drug elluting balloon L SFA 2015 s/p CYLINDER INSPECTOR left SFA 09/25/17 for left foot ulcer s/p urethral stricture after cystoscopy and urethrotomy the patient went into septic shock and was treated with antibiotics and was stabilized. 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 History of Recent Travel: No Home Medications - Allergies Allergies/Adverse Reactions: Allergies Allergy/AdvReac Type Severity Reaction Status Date / Time strawberry Allergy Severe Swelling Verified 01/11/19 11:47 pepper (genus Capsicum) Allergy Unknown Verified 01/11/19 11:47 black pepper Allergy Verified 01/11/19 11:47 iohexol [From Omnipaque] Allergy Rash Verified 01/11/19 11:47 Iodinated Contrast Media AdvReac Rash Verified 01/11/19 11:47 red pepper Allergy Uncoded 01/11/19 11:47 - Home Medications Home Medications: Ambulatory Orders Folic Acid 1 mg PO DAILY 11/04/16 Tamsulosin HCl [Flomax] 0.8 mg PO DAILY 11/07/17 Omeprazole 40 mg PO DAILY 01/01/18 Allopurinol [Zyloprim -] 100 mg PO DAILY 09/04/18 Lisinopril [Zestril] 5 mg PO DAILY 09/04/18 Tramadol HCl 50 mg PO DAILY PRN 09/04/18 Colchicine 0.6 mg PO DAILY 10/12/18 Isosorbide Mononitrate [Isosorbide Mononitrate ER] 60 mg PO DAILY 10/12/18 Physical Examination Vital Signs: Vital Signs Temperature 98.5 F 01/11/19 17:13 Pulse Rate 88 01/11/19 17:13 Respiratory Rate 19 01/11/19 17:13 Blood Pressure 110/68 01/11/19 17:13 O2 Sat by Pulse Oximetry (%) 98 01/11/19 16:51 Labs: CBC, BMP 01/11/19 14:06 01/11/19 14:06 Assessment/Plan (1) KWAME (acute kidney injury) Code(s): N17.9 - ACUTE KIDNEY FAILURE, UNSPECIFIED (2) Chest pain Code(s): R07.9 - CHEST PAIN, UNSPECIFIED Qualifiers: Chest pain type: unspecified Qualified Code(s): R07.9 - Chest pain, unspecified (3) ASHD (arteriosclerotic heart disease) Code(s): I25.10 - ATHSCL HEART DISEASE OF [place] CORONARY ARTERY W/O ANG PCTRS (4) Anemia Code(s): D64.9 - ANEMIA, UNSPECIFIED (5) Anxiety Code(s): F41.9 - ANXIETY DISORDER, UNSPECIFIED (6) Atrial fibrillation Code(s): I48.91 - UNSPECIFIED ATRIAL FIBRILLATION (7) BPH (benign prostatic hyperplasia) Code(s): N40.0 - BENIGN PROSTATIC HYPERPLASIA WITHOUT LOWER URINRY TRACT SYMP (8) Chronic diastolic (congestive) heart failure Code(s): I50.32 - CHRONIC DIASTOLIC (CONGESTIVE) HEART FAILURE (9) Chronic lower back pain Code(s): M54.5 - LOW BACK PAIN; G89.29 - OTHER CHRONIC PAIN (10) Gout Code(s): M10.9 - GOUT, UNSPECIFIED (11) HTN (hypertension) Code(s): I10 - ESSENTIAL (PRIMARY) HYPERTENSION (12) Hematuria Code(s): R31.9 - HEMATURIA, UNSPECIFIED Qualifiers: Hematuria type: gross Qualified Code(s): R31.0 - Gross hematuria (13) Herpes simplex Code(s): B00.9 - HERPESVIRAL INFECTION, UNSPECIFIED (14) Hx of CABG Code(s): Z95.1 - PRESENCE OF AORTOCORONARY BYPASS GRAFT (15) Hyperlipidemia Code(s): E78.5 - HYPERLIPIDEMIA, UNSPECIFIED (16) Hyperlipidemia Code(s): E78.5 - HYPERLIPIDEMIA, UNSPECIFIED (17) MRSA bacteremia Code(s): R78.81 - BACTEREMIA (18) Obesity Code(s): E66.9 - OBESITY, UNSPECIFIED (19) PAD (peripheral artery disease) Code(s): I73.9 - PERIPHERAL VASCULAR DISEASE, UNSPECIFIED (20) Prophylactic measure Code(s): Z29.9 - ENCOUNTER FOR PROPHYLACTIC MEASURES, UNSPECIFIED (21) Prostate cancer Code(s): C61 - MALIGNANT NEOPLASM OF PROSTATE (22) Sepsis Code(s): A41.9 - SEPSIS, UNSPECIFIED ORGANISM (23) Septic shock Code(s): A41.9 - SEPSIS, UNSPECIFIED ORGANISM; R65.21 - SEVERE SEPSIS WITH SEPTIC SHOCK (24) Supratherapeutic INR Code(s): R79.1 - ABNORMAL COAGULATION PROFILE (25) Unstable angina Code(s): I20.0 - UNSTABLE ANGINA (26) Urinary retention Code(s): R33.9 - RETENTION OF URINE, UNSPECIFIED
[2019-01-11 19:18] LABS: YEAST NONE SEEN (NEGATIVE)
[2019-01-11] MEDS ORDERED: ACETAMINOPHEN 325 MG TABLET (FP) PO PRN (20:31)
[2019-01-11 20:42] VITALS: BMI 28.3
[2019-01-11] MEDS: DOCUSATE SODIUM 100 MG CAPSULE (FP) PO SCH (21:06)
[2019-01-11] MEDS: ATORVASTATIN CA 20 MG TABLET (FP) PO SCH (21:06)
[2019-01-11] MEDS: HEPARIN NA (PORCINE) 5,000 UNITS/ML 1ML VIAL SQ SCH (21:06)
[2019-01-12] MEDS: NITROGLYCERIN SUBLINGUAL 1/200 0.3 MG BTL SL PRN ×2 (00:30→00:35)
[2019-01-12 07:42] LABS: BASO % 0.8 % (0-2.0); HEMATOCRIT 32.3 % (35.4-49); HEMOGLOBIN 10.7 GM/dL (11.7-16.9); LYMPH % 10.7 % (8-40); MCH 30.8 pg (25.7-33.7); MCHC 33.2 g/dl (32.0-35.9); MEAN CELL VOLUME 92.6 fl (80-96); MEAN PLT VOLUME 9.6 fl (7.5-11.1); NEUT % 71.5 % (42.8-82.8); PLATELET COUNT 230 K/MM3 (134-434); RBC 3.49 M/mm3 (4.00-5.60); RDW 15.6 % (11.9-15.9)
[2019-01-12 08:01] LABS: MAGNESIUM 2.1 mg/dL (1.8-2.4)
[2019-01-12 08:09] LABS: INR 1.19 (0.83-1.09); PROTHROMBIN TIME (PATIENT) 14.1 SEC (9.7-13.0)
[2019-01-12] MEDS: HEPARIN NA (PORCINE) 5,000 UNITS/ML 1ML VIAL SQ SCH ×2 (10:41→22:12)
[2019-01-12] MEDS: PANTOPRAZOLE 40 MG TABLET (FP) PO SCH (10:41)
[2019-01-12] MEDS: DOCUSATE SODIUM 100 MG CAPSULE (FP) PO SCH ×2 (10:41→22:12)
[2019-01-12] MEDS: CLOPIDOGREL BISULFATE 75 MG TABLET (FP) PO SCH (10:41)
[2019-01-12] MEDS: ASPIRIN COATED 81 MG TABLET.EC PO SCH (10:41)
[2019-01-12] MEDS: ISOSORBIDE MONONITRATE 60 MG TAB.SR.24H (FP) PO SCH (10:41)
[2019-01-12] MEDS: FOLIC ACID 1 MG TABLET (FP) PO SCH (10:41)
--- NOTE | 2019-01-12 10:56 | EKG ---
Test Reason : Blood Pressure : / mmHG Vent. Rate : 059 BPM Atrial Rate : 288 BPM P-R Int : 000 ms QRS Dur : 130 ms QT Int : 436 ms P-R-T Axes : 000 022 134 degrees QTc Int : 431 ms ATRIAL FIBRILLATION WITH SLOW VENTRICULAR RESPONSE WITH PREMATURE VENTRICULAR OR ABERRANTLY CONDUCTED COMPLEXES AND WITH VENTRICULAR ESCAPE COMPLEXES NON-SPECIFIC INTRA-VENTRICULAR CONDUCTION BLOCK T WAVE ABNORMALITY, CONSIDER LATERAL ISCHEMIA ABNORMAL ECG WHEN COMPARED WITH ECG OF 11-JAN-2019 11:37, ATRIAL FIBRILLATION HAS REPLACED SINUS RHYTHM Confirmed by Tutu Greenwood ([id number]) on 01/12/2019 10:56:07 AM Referred By: Mariely NAVARRO Confirmed By:Tutu Greenwood
--- NOTE | 2019-01-12 13:12 | CON.GI ---
Consult Consult Specialty:: Gastroenterology Referred by:: Dr Pham Reason for Consultation:: Chest pain - History of Present Illness Chief Complaint: Left sided chest pain and belching History of Present Illness: 78M is admitted with a chest pain that is atypical for a cardiac etiology. He does find relief with nitroglycerin but also finds relief with belching, antacids and Zantac. He was referred to see Dr. Whelan yesterday to discuss and EGD but ended up here. He was followed by Dr Garnett in the past and tells me that he is overdue for a colonoscopy as he had polyps removed by him over 10 years ago. The pain is not related to exertion or eating. He does get occasional heartburn. He denies dysphagia and early satiety. No melena, rectal bleeding or weight loss. His appetite is good. He has ASHD and is s/p CABG and 2 subsequent stents. He was found to have a markedly dilated CBD (2.3) on CT in 2012 and again on sonogram in 2018 but no stones or neoplasms were found. He never had GB surgery. He does have prostate cancer treated with RT seeds and external RT. His alkaline phosphatase is markedly elevated. It has been fluctuating for months. - History Source History Provided By: Patient Limitations to Obtaining History: No Limitations - Past Medical History Cardio/Vascular: Yes: AFIB, CAD (s/p CABG and then 2 stents), CHF, HTN, Hyperlipdemia, Other (PVD, CAD, Coronary Bypass, CAD, Stent lower left leg) Gastrointestinal: Yes: GERD, Other (colon polyps removed by Dr Garnett remotely ) Hepatobiliary: Yes: Other (dilated CBD ? etiology) Renal/: Yes: BPH (had laser TURB following the RT), Cancer (prostate cancer treated with RT seeds and ext. beam), Renal Calculi, Other (urethral stricture dilated in the past and culminating in urosepsis) Heme/Onc: Yes: Cancer (prostate cancer) Musculoskeletal: Yes: Chronic low back pain, Osteoarthritis (Chronic Lower back pain) Rheumatology: Yes: Gout - Past Surgical History Past Surgical History: Yes: CABG, Colonoscopy, Stent (stents, both cardiac and LLE), TURP (laser) Additional Surgical History: urethral dilation - Alcohol/Substance Use Hx Alcohol Use: No History of Substance Use: reports: None - Smoking History Smoking history: Former smoker Have you smoked in the past 12 months: No Aproximately how many cigarettes per day: 0 If you are a former smoker, when did you quit?: 2002 - Social History Usual Living Arrangement: With Spouse ADL: Independent 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year[place] in his 20's History of Recent Travel: No Home Medications - Allergies Allergies/Adverse Reactions: Allergies Allergy/AdvReac Type Severity Reaction Status Date / Time strawberry Allergy Severe Swelling Verified 01/11/19 11:47 pepper (genus Capsicum) Allergy Unknown Verified 01/11/19 11:47 black pepper Allergy Verified 01/11/19 11:47 iohexol [From Omnipaque] Allergy Rash Verified 01/11/19 11:47 Iodinated Contrast Media AdvReac Rash Verified 01/11/19 11:47 red pepper Allergy Uncoded 01/11/19 11:47 - Home Medications Home Medications: Ambulatory Orders Folic Acid 1 mg PO DAILY 11/04/16 Tamsulosin HCl [Flomax] 0.8 mg PO DAILY 11/07/17 Omeprazole 40 mg PO DAILY 01/01/18 Allopurinol [Zyloprim -] 100 mg PO DAILY 09/04/18 Lisinopril [Zestril] 5 mg PO DAILY 09/04/18 Tramadol HCl 50 mg PO DAILY PRN 09/04/18 Colchicine 0.6 mg PO DAILY 10/12/18 Isosorbide Mononitrate [Isosorbide Mononitrate ER] 60 mg PO DAILY 10/12/18 Apixaban [Eliquis] 5 mg PO BID 01/11/19 Aspirin [Ecotrin] 81 mg PO DAILY 01/11/19 Atorvastatin Calcium 40 mg PO DAILY 01/11/19 Ranolazine [Ranexa] 500 mg PO BID 01/11/19 Family Medical History Family Hx Cancer: Father ( 72 Hodgkins Lymphoma), Brother ( of prostate cancer) Other Family History: Mother lived to Review of Systems - Review of Systems Constitutional: reports: No Symptoms Eyes: reports: No Symptoms HENT: reports: Gingival Bleeding Neck: reports: No Symptoms Cardiovascular: reports: Chest Pain Respiratory: reports: No Symptoms Gastrointestinal: reports: Indigestion, Other (belching and heartburn) Genitourinary: reports: No Symptoms Musculoskeletal: reports: Back Pain Physical Exam-GI Vital Signs: Vital Signs Temperature 98.4 F 01/12/19 06:00 Pulse Rate 64 01/12/19 06:00 Respiratory Rate 20 01/12/19 06:00 Blood Pressure 134/96 01/12/19 06:00 O2 Sat by Pulse Oximetry (%) 96 01/12/19 09:00 CBC,CMP WBC 6.0 K/mm3 (4.0-10.0) 01/12/19 05:24 RBC 3.49 M/mm3 (4.00-5.60) L 01/12/19 05:24 Hgb 10.7 GM/dL (11.7-16.9) L 01/12/19 05:24 Hct 32.3 % (35.4-49) L 01/12/19 05:24 MCV 92.6 fl (80-96) 01/12/19 05:24 MCH 30.8 pg (25.7-33.7) 01/12/19 05:24 MCHC 33.2 g/dl (32.0-35.9) 01/12/19 05:24 RDW 15.6 % (11.9-15.9) 01/12/19 05:24 Plt Count 230 K/MM3 (134-434) 01/12/19 05:24 MPV 9.6 fl (7.5-11.1) D 01/12/19 05:24 Absolute Neuts (auto) 4.3 K/mm3 (1.5-8.0) 01/12/19 05:24 Neutrophils % 71.5 % (42.8-82.8) 01/12/19 05:24 Lymphocytes % 10.7 % (8-40) 01/12/19 05:24 Monocytes % 12.0 % (3.8-10.2) H 01/12/19 05:24 Eosinophils % 5.0 % (0-4.5) H D 01/12/19 05:24 Basophils % 0.8 % (0-2.0) 01/12/19 05:24 Nucleated RBC % 0 % (0-0) 01/12/19 05:24 Sodium 137 mmol/L (136-145) 01/11/19 14:06 Potassium 4.9 mmol/L (3.5-5.1) 01/11/19 14:06 Chloride 104 mmol/L (98-107) 01/11/19 14:06 Carbon Dioxide 25 mmol/L (21-32) 01/11/19 14:06 Anion Gap 9 MMOL/L (8-16) 01/11/19 14:06 BUN 25.4 mg/dL (7-18) H 01/11/19 14:06 Creatinine 1.4 mg/dL (0.55-1.3) H 01/11/19 14:06 Est GFR (CKD-EPI)AfAm 55.38 01/11/19 14:06 Est GFR (CKD-EPI)NonAf 47.78 01/11/19 14:06 Random Glucose 99 mg/dL (74-106) 01/11/19 14:06 Hemoglobin A1c % 6.0 % (4.2-6.3) 01/12/19 05:24 Calcium 9.4 mg/dL (8.5-10.1) 01/11/19 14:06 Magnesium 2.1 mg/dL (1.8-2.4) 01/12/19 05:24 Total Bilirubin 0.6 mg/dL (0.2-1) 01/11/19 14:06 AST 49 U/L (15-37) H 01/11/19 14:06 ALT 63 U/L (13-61) H 01/11/19 14:06 Alkaline Phosphatase 421 U/L (45-117) H 01/11/19 14:06 Creatine Kinase 52 U/L (26-308) 01/12/19 05:24 Troponin I 0.02 ng/ml (0.00-0.05) 01/12/19 05:24 Total Protein 6.2 g/dl (6.4-8.2) L 01/11/19 14:06 Albumin 3.3 g/dl (3.4-5.0) L 01/11/19 14:06 Cholesterol 103 mg/dL (50-200) 01/12/19 05:24 TSH 1.34 uIU/ml (0.358-3.74) D 01/12/19 05:24 Current Medications Generic Name Dose Route Start Last Admin Trade Name Freq PRN Reason Stop Dose Admin Acetaminophen 650 mg 01/11/19 20:31 Tylenol - PO Q6H PRN FEVER Aspirin 81 mg 01/12/19 10:00 01/12/19 10:41 Ecotrin - PO 81 mg DAILY JORJE Administration Atorvastatin Calcium 20 mg 01/11/19 22:00 01/11/19 21:06 Lipitor - PO 20 mg HS JORJE Administration Clopidogrel Bisulfate 75 mg 01/12/19 10:00 01/12/19 10:41 Plavix - PO 75 mg DAILY JORJE Administration Docusate Sodium 100 mg 01/11/19 22:00 01/12/19 10:41 Colace - PO 100 mg BID JORJE Administration Folic Acid 1 mg 01/12/19 10:00 01/12/19 10:41 Folic Acid - PO 1 mg DAILY JORJE Administration Heparin Sodium (Porcine) 5,000 unit 01/11/19 22:00 01/12/19 10:41 Heparin - SQ 5,000 unit BID JORJE Administration Isosorbide Mononitrate 60 mg 01/12/19 10:00 01/12/19 10:41 Imdur - PO 60 mg DAILY JORJE Administration Nitroglycerin 0.3 mg 01/11/19 20:29 01/12/19 00:35 Nitrostat - SL 0.3 mg Q5M PRN Administration FOR CHEST PAIN Pantoprazole Sodium 40 mg 01/12/19 10:00 01/12/19 10:41 Protonix - PO 40 mg DAILY JORJE Administration Constitutional: Yes: Anxious Eyes: Yes: Conjunctiva Clear HENT: Yes: WNL Neck: Yes: WNL Cardiovascular: Yes: Pulse Irregular, Other (healed median sternotomy) Respiratory: Yes: CTA Bilaterally Gastrointestinal Inspection: Yes: WNL ...Auscultate: Yes: Normoactive Bowel Sounds ...Palpate: Yes: Soft, Other (nontender) ...Percussion: Yes: Tympanitic ...Rectal Exam: Yes: Guaiac Negative (nil prostate,) Edema: No Neurological: Yes: Alert, Oriented Labs: CBC, BMP 01/12/19 05:24 01/11/19 14:06 INR, PTT INR 1.19 (0.83-1.09) H 01/12/19 05:24 Laboratory Tests 04/24/10 07/09/12 08/30/12 14:00 17:50 06:00 Alkaline Phosphatase 71 206 H D 76 11/10/17 11/10/17 11/12/17 17:00 20:30 05:30 Alkaline Phosphatase 84 164 H D 91 D 12/01/17 12/03/17 01/12/18 05:50 06:22 14:10 Alkaline Phosphatase 148 H 261 H D 117 01/31/18 02/07/18 09/04/18 07:30 06:30 14:28 Alkaline Phosphatase 220 H 171 H 512 H 10/12/18 01/11/19 15:47 14:06 Alkaline Phosphatase 201 H 421 H Problem List - Problems (1) Chest pain Code(s): R07.9 - CHEST PAIN, UNSPECIFIED Qualifiers: Chest pain type: unspecified Qualified Code(s): R07.9 - Chest pain, unspecified (2) Dilated bile duct Code(s): K83.8 - OTHER SPECIFIED DISEASES OF BILIARY TRACT (3) Abnormal LFTs (liver function tests) Code(s): R94.5 - ABNORMAL RESULTS OF LIVER FUNCTION STUDIES (4) Alkaline phosphatase elevation Code(s): R74.8 - ABNORMAL LEVELS OF OTHER SERUM ENZYMES (5) Dyspepsia Code(s): R10.13 - EPIGASTRIC PAIN (6) History of colon polyps Code(s): Z86.010 - PERSONAL HISTORY OF COLONIC POLYPS (7) ASHD (arteriosclerotic heart disease) Code(s): I25.10 - ATHSCL HEART DISEASE OF [place] CORONARY ARTERY W/O ANG PCTRS (8) Atrial fibrillation Code(s): I48.91 - UNSPECIFIED ATRIAL FIBRILLATION (9) Hx of CABG Code(s): Z95.1 - PRESENCE OF AORTOCORONARY BYPASS GRAFT (10) MRSA bacteremia Code(s): R78.81 - BACTEREMIA (11) PAD (peripheral artery disease) Code(s): I73.9 - PERIPHERAL VASCULAR DISEASE, UNSPECIFIED (12) Prostate cancer Code(s): C61 - MALIGNANT NEOPLASM OF PROSTATE Assessment/Plan Assessment: - Alf's chest pain does have features suggesting UGI origin: GERD, a hiatal hernia, ulcer disease and the like. His elevated alkaline phosphatase raise the possibility biliary tract disease ( particularly given the fluctuations) or rib metastases as possible alternative etiologies - Abnormal LFTs - Personal h/o colon polyps and due for surveillance Plan: -- I have advised an EGD while on clopidogrel which will preclude large biopsies and polypectomy but will try to substantiate a GI tract origin for the pain. I have informed Alf of the potential for such complication as perforation and hemorrhage. He has signed an informed consent. I have schedule it for the AM and discussed this with Dr. Mata who has no objections. -- GGT, if negative Alf will need a bone scan -- Chronic liver disease screening and MRCP to exclude a CBD tumor and stones, choledochal cyst. Biliary dyskinesia cannot be excluded -- Repeat colonoscopy has been advised as an outpatient
[2019-01-12] MEDS ORDERED: MAG HYDROX/AL HYDROX/SIMETH 30 ML UNIT-DOSE CUP PO PRN (13:44)
--- NOTE | 2019-01-12 20:49 | PN ---
Progress Note, Physician Chief Complaint: Pt for Gastroscopy in AM - Current Medication List Current Medications: Active Medications Acetaminophen (Tylenol -) 650 mg PO Q6H PRN PRN Reason: FEVER Al Hydroxide/Mg Hydroxide (Mylanta Oral Suspension -) 30 ml PO Q6H PRN PRN Reason: DYSPEPSIA Aspirin (Ecotrin -) 81 mg PO DAILY [facility] Last Admin: 01/12/19 10:41 Dose: 81 mg Atorvastatin Calcium (Lipitor -) 20 mg PO HS [facility] Last Admin: 01/11/19 21:06 Dose: 20 mg Clopidogrel Bisulfate (Plavix -) 75 mg PO DAILY [facility] Last Admin: 01/12/19 10:41 Dose: 75 mg Docusate Sodium (Colace -) 100 mg PO BID [facility] Last Admin: 01/12/19 10:41 Dose: 100 mg Folic Acid (Folic Acid -) 1 mg PO DAILY [facility] Last Admin: 01/12/19 10:41 Dose: 1 mg Heparin Sodium (Porcine) (Heparin -) 5,000 unit SQ BID [facility] Last Admin: 01/12/19 10:41 Dose: 5,000 unit Isosorbide Mononitrate (Imdur -) 60 mg PO DAILY [facility] Last Admin: 01/12/19 10:41 Dose: 60 mg Nitroglycerin (Nitrostat -) 0.3 mg SL Q5M PRN PRN Reason: FOR CHEST PAIN Last Admin: 01/12/19 00:35 Dose: 0.3 mg Pantoprazole Sodium (Protonix -) 40 mg PO DAILY [facility] Last Admin: 01/12/19 10:41 Dose: 40 mg - Objective Vital Signs: Vital Signs Temperature 98.6 F 01/12/19 14:30 Pulse Rate 52 L 01/12/19 14:30 Respiratory Rate 20 01/12/19 14:30 Blood Pressure 112/56 L 01/12/19 14:30 O2 Sat by Pulse Oximetry (%) 96 01/12/19 09:00 Constitutional: Yes: No Distress Eyes: Yes: Conjunctiva Clear, EOM Intact HENT: Yes: Atraumatic, Normocephalic Neck: Yes: Supple, Trachea Midline Cardiovascular: Yes: Regular Rate and Rhythm, S1, S2 Respiratory: Yes: Regular, CTA Bilaterally Gastrointestinal: Yes: Normal Bowel Sounds, Soft Musculoskeletal: Yes: Joint Stiffness, Other (GOUT) Labs: CBC, BMP 01/12/19 05:24 01/11/19 14:06 INR, PTT INR 1.19 (0.83-1.09) H 01/12/19 05:24 Assessment/Plan (1) KWAME (acute kidney injury) Code(s): N17.9 - ACUTE KIDNEY FAILURE, UNSPECIFIED (2) Chest pain Code(s): R07.9 - CHEST PAIN, UNSPECIFIED Qualifiers: Chest pain type: unspecified Qualified Code(s): R07.9 - Chest pain, unspecified (3) ASHD (arteriosclerotic heart disease) Code(s): I25.10 - ATHSCL HEART DISEASE OF [place] CORONARY ARTERY W/O ANG PCTRS (4) Anemia Code(s): D64.9 - ANEMIA, UNSPECIFIED (5) Anxiety Code(s): F41.9 - ANXIETY DISORDER, UNSPECIFIED (6) Atrial fibrillation Code(s): I48.91 - UNSPECIFIED ATRIAL FIBRILLATION (7) BPH (benign prostatic hyperplasia) Code(s): N40.0 - BENIGN PROSTATIC HYPERPLASIA WITHOUT LOWER URINRY TRACT SYMP (8) Chronic diastolic (congestive) heart failure Code(s): I50.32 - CHRONIC DIASTOLIC (CONGESTIVE) HEART FAILURE (9) Chronic lower back pain Code(s): M54.5 - LOW BACK PAIN; G89.29 - OTHER CHRONIC PAIN (10) Gout Code(s): M10.9 - GOUT, UNSPECIFIED (11) HTN (hypertension) Code(s): I10 - ESSENTIAL (PRIMARY) HYPERTENSION (12) Hematuria Code(s): R31.9 - HEMATURIA, UNSPECIFIED Qualifiers: Hematuria type: gross Qualified Code(s): R31.0 - Gross hematuria (13) Herpes simplex Code(s): B00.9 - HERPESVIRAL INFECTION, UNSPECIFIED (14) Hx of CABG Code(s): Z95.1 - PRESENCE OF AORTOCORONARY BYPASS GRAFT (15) Hyperlipidemia Code(s): E78.5 - HYPERLIPIDEMIA, UNSPECIFIED (16) Hyperlipidemia Code(s): E78.5 - HYPERLIPIDEMIA, UNSPECIFIED (17) MRSA bacteremia Code(s): R78.81 - BACTEREMIA (18) Obesity Code(s): E66.9 - OBESITY, UNSPECIFIED (19) PAD (peripheral artery disease) Code(s): I73.9 - PERIPHERAL VASCULAR DISEASE, UNSPECIFIED (20) Prophylactic measure Code(s): Z29.9 - ENCOUNTER FOR PROPHYLACTIC MEASURES, UNSPECIFIED (21) Prostate cancer Code(s): C61 - MALIGNANT NEOPLASM OF PROSTATE (22) Sepsis Code(s): A41.9 - SEPSIS, UNSPECIFIED ORGANISM (23) Septic shock Code(s): A41.9 - SEPSIS, UNSPECIFIED ORGANISM; R65.21 - SEVERE SEPSIS WITH SEPTIC SHOCK (24) Supratherapeutic INR Code(s): R79.1 - ABNORMAL COAGULATION PROFILE (25) Unstable angina Code(s): I20.0 - UNSTABLE ANGINA Code(s): R33.9 - RETENTION OF URINE, UNSPECIFIED
[2019-01-12] MEDS: ATORVASTATIN CA 20 MG TABLET (FP) PO SCH (22:12)
--- NOTE | 2019-01-13 05:45 | PN ---
Progress Note, Physician Chief Complaint: Pt A&Ox3; chronic intermittent left-sided chest pain, for which he often asks for NTG, as he did this morning and last night. The pain does not go away immediately with the medication (an EKG taken during the pain showed AF with slow VR; no significant changes from the chronic lateral wall STT changes). Belching, which he does frequently, is usually associated with the pain. History of Present Illness: 78-year-old white man (rajiv Owusu), with a past medical history of coronary artery disease s/p CABG and coronary stents (latest coronary angiogram, 10/2018 at [facility]: no PCI required), paroxysmal A. fib on Eliquis, prostate CA , hypertension, hyperlipidemia, GERD, hx urinary retention/UTI-->prolonged hospitalization;gout, overweight, relatively sedentary, who presents to the emergency Department with chest pain since 12:30 AM this morning. Patient reports the pain began while he was lying in bed and is localized to his left lower chest. He took 3 nitroglycerin pills with no relief. He reports similar chest pain over the last month intermittently, also at rest, however that pain has always resolved with nitroglycerin. He also reports frequent belching which at times relieves some of this pain but at times does not. Denies any associated dizziness, diaphoresis, nausea, vomiting, shortness of breath. Denies headache, focal weakness or numbness, abdominal pain, diarrhea, urinary symptoms, lower extremity edema. He has been compliant with all of his medications. PMD: Dr. Taylor Cardio: Dr. Webb - Current Medication List Current Medications: Active Medications Acetaminophen (Tylenol -) 650 mg PO Q6H PRN PRN Reason: FEVER Al Hydroxide/Mg Hydroxide (Mylanta Oral Suspension -) 30 ml PO Q6H PRN PRN Reason: DYSPEPSIA Aspirin (Ecotrin -) 81 mg PO DAILY [facility] Last Admin: 01/12/19 10:41 Dose: 81 mg Atorvastatin Calcium (Lipitor -) 20 mg PO HS [facility] Last Admin: 01/12/19 22:12 Dose: 20 mg Clopidogrel Bisulfate (Plavix -) 75 mg PO DAILY [facility] Last Admin: 01/12/19 10:41 Dose: 75 mg Docusate Sodium (Colace -) 100 mg PO BID [facility] Last Admin: 01/12/19 22:12 Dose: 100 mg Folic Acid (Folic Acid -) 1 mg PO DAILY [facility] Last Admin: 01/12/19 10:41 Dose: 1 mg Heparin Sodium (Porcine) (Heparin -) 5,000 unit SQ BID [facility] Last Admin: 01/12/19 22:12 Dose: 5,000 unit Isosorbide Mononitrate (Imdur -) 60 mg PO DAILY [facility] Last Admin: 01/12/19 10:41 Dose: 60 mg Nitroglycerin (Nitrostat -) 0.3 mg SL Q5M PRN PRN Reason: FOR CHEST PAIN Last Admin: 01/12/19 00:35 Dose: 0.3 mg Pantoprazole Sodium (Protonix -) 40 mg PO DAILY [facility] Last Admin: 01/12/19 10:41 Dose: 40 mg - Objective Vital Signs: Vital Signs Temperature 98.8 F 01/13/19 05:24 Pulse Rate 61 01/13/19 05:24 Respiratory Rate 18 01/13/19 05:24 Blood Pressure 132/85 01/13/19 05:24 O2 Sat by Pulse Oximetry (%) 98 01/12/19 21:00 Constitutional: Yes: Anxious, Other (overweight) Eyes: Yes: WNL HENT: Yes: WNL Neck: Yes: WNL Cardiovascular: Yes: S1 (varies in intensity), S2 Respiratory: Yes: WNL Gastrointestinal: Yes: Soft ...Rectal Exam: Yes: Deferred Genitourinary: No: Anuria Breast(s): Yes: WNL Musculoskeletal: Yes: WNL Extremities: Yes: WNL Edema: No Integumentary: Yes: WNL Neurological: Yes: WNL ...Motor Strength: WNL Psychiatric: Yes: WNL Labs: CBC, BMP 01/12/19 05:24 01/11/19 14:06 INR, PTT INR 1.19 (0.83-1.09) H 01/12/19 05:24 Problem List - Problems (1) Atypical chest pain Assessment/Plan: TNI < 0.02 x 2. EKG taken during chest pain: AF with slow VR; no significnat change in chronic lateral STT abnormalities. Coronary angiogram 10/2018: no PCI required. Pt for GI workup; this may include endoscopy and MRCP (frequent belching often associated with chest discomfort; increasingly elevated alk phosphatase; hx colonic polyps). Code(s): R07.89 - OTHER CHEST PAIN (2) Alkaline phosphatase elevation Code(s): R74.8 - ABNORMAL LEVELS OF OTHER SERUM ENZYMES (3) Anxiety Code(s): F41.9 - ANXIETY DISORDER, UNSPECIFIED (4) Atrial fibrillation Assessment/Plan: EKG taken today: AF with slow VR. Pt is on apixaban 5 mg bid. F/u ECHO for LVEF, chamber sizes, valve status. (It is unclear whether he is on an AV conduction stepan for HR control). Code(s): I48.91 - UNSPECIFIED ATRIAL FIBRILLATION (5) Chronic diastolic (congestive) heart failure Code(s): I50.32 - CHRONIC DIASTOLIC (CONGESTIVE) HEART FAILURE (6) HTN (hypertension) Code(s): I10 - ESSENTIAL (PRIMARY) HYPERTENSION (7) Hx of CABG Code(s): Z95.1 - PRESENCE OF AORTOCORONARY BYPASS GRAFT (8) Hyperlipidemia Assessment/Plan: total cholesterol 103 mg/dl. On atorvastatin; mildly elevated LFTs. Code(s): E78.5 - HYPERLIPIDEMIA, UNSPECIFIED
[2019-01-13 07:07] LABS: BASO % 0.7 % (0-2.0); EOS % 4.5 % (0-4.5); HEMATOCRIT 33.8 % (35.4-49); HEMOGLOBIN 11.2 GM/dL (11.7-16.9); LYMPH % 15.7 % (8-40); MCH 30.6 pg (25.7-33.7); MCHC 33.1 g/dl (32.0-35.9); MEAN CELL VOLUME 92.5 fl (80-96); MEAN PLT VOLUME 9.3 fl (7.5-11.1); MONO % 15.6 % (3.8-10.2); NEUT % 63.5 % (42.8-82.8); PLATELET COUNT 228 K/MM3 (134-434); RBC 3.65 M/mm3 (4.00-5.60); RDW 15.2 % (11.9-15.9); WHITE BLOOD COUNT 5.8 K/mm3 (4.0-10.0)
[2019-01-13 07:11] LABS: INR 1.08 (0.83-1.09); PROTHROMBIN TIME (PATIENT) 12.8 SEC (9.7-13.0)
[2019-01-13 07:32] LABS: ALBUMIN 2.9 g/dl (3.4-5.0); BILIRUBIN,TOTAL 0.6 mg/dL (0.2-1); BLOOD UREA NITROGEN 22.3 mg/dL (7-18); CALCIUM 9.1 mg/dL (8.5-10.1); CREATININE 1.2 mg/dL (0.55-1.3); POTASSIUM 4.6 mmol/L (3.5-5.1); TOT PROT 5.7 g/dl (6.4-8.2); URIC ACID 5.3 mg/dL (2.6-7.2)
--- NOTE | 2019-01-13 11:22 | PN ---
Progress Note, Physician History of Present Illness: The patient presents with a chief complaint of: The patient will proceed to the ED for further evaluation.chest pain since this morning at 12:30 am, also c/o gas. took nitro and aspirin w/o relief. hx of CAD s/p PCI, coronary bypass, pAfib on Coumadin, prostate CA, HTN, hyperlipidemia PMH cabg lithotripsy prostate seeds Ongoing medical problems Afib diagnosed at the hospital during SFA [employer] 08/2015 and has been on coumadin since then 2015 CAD Coronary artery bypass graft SANTIAGO of left SFA August 11, 2014 Dr. Blanton SANTIAGO of left PDA July 07, 2014 Dr. Blanton dizziness Hyperlipidemia Hypertension Negative MIBI stress test 2013 [place] [facility] NSVT Pauses PCI SANTIAGO of p LCx March 30, 2015 Dr. Blanton PCI LCx 08/17/12 [facility] 07/07/14 Dr. Blanton [employer]ITIME ENGINEER/stent right SFA 526/16 DR BLANTON Right SFA 100 occlusion July 07, 2014 Dr. Blanton s/p MARITIME ENGINEER drug elluting balloon L SFA 2015 s/p [employer]IT[employer]INEER left SFA 09/25/17 for left foot ulcer s/p urethral stricture after cystoscopy and urethrotomy the patient went into septic shock and was treated with antibiotics and was stabilized. October 2017 - Current Medication List Current Medications: Active Medications Acetaminophen (Tylenol -) 650 mg PO Q6H PRN PRN Reason: FEVER Al Hydroxide/Mg Hydroxide (Mylanta Oral Suspension -) 30 ml PO Q6H PRN PRN Reason: DYSPEPSIA Aspirin (Ecotrin -) 81 mg PO DAILY [facility] Last Admin: 01/12/19 10:41 Dose: 81 mg Atorvastatin Calcium (Lipitor -) 20 mg PO HS [facility] Last Admin: 01/12/19 22:12 Dose: 20 mg Clopidogrel Bisulfate (Plavix -) 75 mg PO DAILY [facility] Last Admin: 01/12/19 10:41 Dose: 75 mg Docusate Sodium (Colace -) 100 mg PO BID [facility] Last Admin: 01/12/19 22:12 Dose: 100 mg Folic Acid (Folic Acid -) 1 mg PO DAILY [facility] Last Admin: 01/12/19 10:41 Dose: 1 mg Heparin Sodium (Porcine) (Heparin -) 5,000 unit SQ BID [facility] Last Admin: 01/12/19 22:12 Dose: 5,000 unit Isosorbide Mononitrate (Imdur -) 60 mg PO DAILY [facility] Last Admin: 01/12/19 10:41 Dose: 60 mg Nitroglycerin (Nitrostat -) 0.3 mg SL Q5M PRN PRN Reason: FOR CHEST PAIN Last Admin: 01/12/19 00:35 Dose: 0.3 mg Pantoprazole Sodium (Protonix -) 40 mg PO DAILY [facility] Last Admin: 01/12/19 10:41 Dose: 40 mg - Objective Vital Signs: Vital Signs Temperature 98.2 F 01/13/19 11:07 Pulse Rate 62 01/13/19 11:07 Respiratory Rate 18 01/13/19 11:07 Blood Pressure 119/71 01/13/19 11:07 O2 Sat by Pulse Oximetry (%) 98 01/13/19 11:07 Eyes: Yes: WNL, Conjunctiva Clear, EOM Intact HENT: Yes: WNL, Atraumatic, Normocephalic Neck: Yes: WNL, Supple, Trachea Midline Cardiovascular: Yes: Pulse Irregular, S1, S2 Respiratory: Yes: WNL, Regular, CTA Bilaterally Gastrointestinal: Yes: WNL, Normal Bowel Sounds Genitourinary: Yes: WNL Musculoskeletal: Yes: WNL Extremities: Yes: WNL Edema: No Integumentary: Yes: WNL Neurological: Yes: WNL, Alert, Oriented ...Motor Strength: WNL Psychiatric: Yes: WNL Labs: CBC, BMP 01/13/19 05:15 01/13/19 05:15 INR, PTT INR 1.08 (0.83-1.09) 01/13/19 05:15 Problem List - Problems (1) KWAME (acute kidney injury) Code(s): N17.9 - ACUTE KIDNEY FAILURE, UNSPECIFIED (2) Chest pain Code(s): R07.9 - CHEST PAIN, UNSPECIFIED Qualifiers: Chest pain type: unspecified Qualified Code(s): R07.9 - Chest pain, unspecified (3) ASHD (arteriosclerotic heart disease) Code(s): I25.10 - ATHSCL HEART DISEASE OF [place] CORONARY ARTERY W/O ANG PCTRS (4) Anemia Code(s): D64.9 - ANEMIA, UNSPECIFIED (5) Anxiety Code(s): F41.9 - ANXIETY DISORDER, UNSPECIFIED (6) Atrial fibrillation Code(s): I48.91 - UNSPECIFIED ATRIAL FIBRILLATION (7) BPH (benign prostatic hyperplasia) Code(s): N40.0 - BENIGN PROSTATIC HYPERPLASIA WITHOUT LOWER URINRY TRACT SYMP (8) Chronic diastolic (congestive) heart failure Code(s): I50.32 - CHRONIC DIASTOLIC (CONGESTIVE) HEART FAILURE (9) Chronic lower back pain Code(s): M54.5 - LOW BACK PAIN; G89.29 - OTHER CHRONIC PAIN (10) Gout Code(s): M10.9 - GOUT, UNSPECIFIED (11) HTN (hypertension) Code(s): I10 - ESSENTIAL (PRIMARY) HYPERTENSION (12) Hematuria Code(s): R31.9 - HEMATURIA, UNSPECIFIED Qualifiers: Hematuria type: gross Qualified Code(s): R31.0 - Gross hematuria (13) Herpes simplex Code(s): B00.9 - HERPESVIRAL INFECTION, UNSPECIFIED (14) Hx of CABG Code(s): Z95.1 - PRESENCE OF AORTOCORONARY BYPASS GRAFT (15) Hyperlipidemia Code(s): E78.5 - HYPERLIPIDEMIA, UNSPECIFIED (16) Hyperlipidemia Code(s): E78.5 - HYPERLIPIDEMIA, UNSPECIFIED (17) MRSA bacteremia Code(s): R78.81 - BACTEREMIA (18) Obesity Code(s): E66.9 - OBESITY, UNSPECIFIED (19) PAD (peripheral artery disease) Code(s): I73.9 - PERIPHERAL VASCULAR DISEASE, UNSPECIFIED (20) Prophylactic measure Code(s): Z29.9 - ENCOUNTER FOR PROPHYLACTIC MEASURES, UNSPECIFIED (21) Prostate cancer Code(s): C61 - MALIGNANT NEOPLASM OF PROSTATE (22) Sepsis Code(s): A41.9 - SEPSIS, UNSPECIFIED ORGANISM (23) Septic shock Code(s): A41.9 - SEPSIS, UNSPECIFIED ORGANISM; R65.21 - SEVERE SEPSIS WITH SEPTIC SHOCK (24) Supratherapeutic INR Code(s): R79.1 - ABNORMAL COAGULATION PROFILE (25) Unstable angina Code(s): I20.0 - UNSTABLE ANGINA (26) Urinary retention Code(s): R33.9 - RETENTION OF URINE, UNSPECIFIED Assessment/Plan - Problems (1) Atypical chest pain Assessment/Plan: TNI < 0.02 x 2. EKG taken during chest pain: AF with slow VR; no significnat change in chronic lateral STT abnormalities. Coronary angiogram 10/2018: no PCI required. Pt for GI workup; this may include endoscopy and MRCP (frequent belching often associated with chest discomfort; increasingly elevated alk phosphatase; hx colonic polyps). Code(s): R07.89 - OTHER CHEST PAIN (2) Alkaline phosphatase elevation Code(s): R74.8 - ABNORMAL LEVELS OF OTHER SERUM ENZYMES (3) Anxiety Code(s): F41.9 - ANXIETY DISORDER, UNSPECIFIED (4) Atrial fibrillation Assessment/Plan: EKG taken today: AF with slow VR. Pt is on apixaban 5 mg bid. F/u ECHO for LVEF, chamber sizes, valve status. (It is unclear whether he is on an AV conduction stepan for HR control). Code(s): I48.91 - UNSPECIFIED ATRIAL FIBRILLATION (5) Chronic diastolic (congestive) heart failure Code(s): I50.32 - CHRONIC DIASTOLIC (CONGESTIVE) HEART FAILURE (6) HTN (hypertension) Code(s): I10 - ESSENTIAL (PRIMARY) HYPERTENSION (7) Hx of CABG Code(s): Z95.1 - PRESENCE OF AORTOCORONARY BYPASS GRAFT (8) Hyperlipidemia Assessment/Plan: total cholesterol 103 mg/dl. On atorvastatin; mildly elevated LFTs. Code(s): E78.5 - HYPERLIPIDEMIA, UNSPECIFIED
--- NOTE | 2019-01-13 12:08 | PN.GI ---
GI Progress Note Subjective: GI Procedure Note: Please see EGD report. Acid reflux across a sliding hiatal hernia was noted. This could account for his atypical chest pain. The patient was also found to have a large ampulla suggesting a neoplastic process. I informed him of this and the need for further investigation and likely excision. The potential for a malignant process was explained. I told him that this would explain the dilation of his bile duct previously noticed on imaging I advised that he see Dr Amol Story at [facility] to arrange EUS and biopsy or ampullectomy as an outpatient. I gave him a referral with Dr. Story's phone number. 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 These can become malignant and should be excised. GGT is elevated indication that the alkaline phosphatase is hepatic in origin - Personal h/o colon polyps and due for surveillance Plan: -- I have advised an EUS while off clopidogrel with DR Amol Story at [facility] and provided Peter with the data he needs to set up a consultation as an outpatient. -- Await MRCP to confirm an ampullary tumor -- PPI therapy and antireflux measures -- Repeat colonoscopy has been advised as an outpatient Problem List - Problems (1) Ampulla of Vater mass Code(s): K83.8 - OTHER SPECIFIED DISEASES OF BILIARY TRACT (2) Chest pain Code(s): R07.9 - CHEST PAIN, UNSPECIFIED Qualifiers: Chest pain type: unspecified Qualified Code(s): R07.9 - Chest pain, unspecified (3) Dilated bile duct Code(s): K83.8 - OTHER SPECIFIED DISEASES OF BILIARY TRACT (4) Abnormal LFTs (liver function tests) Code(s): R94.5 - ABNORMAL RESULTS OF LIVER FUNCTION STUDIES (5) Alkaline phosphatase elevation Code(s): R74.8 - ABNORMAL LEVELS OF OTHER SERUM ENZYMES (6) Dyspepsia Code(s): R10.13 - EPIGASTRIC PAIN (7) History of colon polyps Code(s): Z86.010 - PERSONAL HISTORY OF COLONIC POLYPS (8) ASHD (arteriosclerotic heart disease) Code(s): I25.10 - ATHSCL HEART DISEASE OF [place] CORONARY ARTERY W/O ANG PCTRS (9) Atrial fibrillation Code(s): I48.91 - UNSPECIFIED ATRIAL FIBRILLATION (10) Hx of CABG Code(s): Z95.1 - PRESENCE OF AORTOCORONARY BYPASS GRAFT (11) MRSA bacteremia Code(s): R78.81 - BACTEREMIA (12) PAD (peripheral artery disease) Code(s): I73.9 - PERIPHERAL VASCULAR DISEASE, UNSPECIFIED (13) Prostate cancer Code(s): C61 - MALIGNANT NEOPLASM OF PROSTATE
[2019-01-13] MEDS: DOCUSATE SODIUM 100 MG CAPSULE (FP) PO SCH ×2 (13:23→21:09)
[2019-01-13] MEDS: FOLIC ACID 1 MG TABLET (FP) PO SCH (13:23)
[2019-01-13] MEDS: HEPARIN NA (PORCINE) 5,000 UNITS/ML 1ML VIAL SQ SCH ×2 (13:23→21:09)
[2019-01-13] MEDS: PANTOPRAZOLE 40 MG TABLET (FP) PO SCH (13:23)
[2019-01-13] MEDS: ASPIRIN COATED 81 MG TABLET.EC PO SCH (13:23)
[2019-01-13] MEDS: ISOSORBIDE MONONITRATE 60 MG TAB.SR.24H (FP) PO SCH (13:23)
[2019-01-13] MEDS: CLOPIDOGREL BISULFATE 75 MG TABLET (FP) PO SCH (13:23)
--- NOTE | 2019-01-13 16:53 | PN ---
Progress Note, Physician Chief Complaint: Epigastric Discomfort Today for EGD History of Present Illness: Pt Had EGD today - Current Medication List Current Medications: Active Medications Acetaminophen (Tylenol -) 650 mg PO Q6H PRN PRN Reason: FEVER Al Hydroxide/Mg Hydroxide (Mylanta Oral Suspension -) 30 ml PO Q6H PRN PRN Reason: DYSPEPSIA Aspirin (Ecotrin -) 81 mg PO DAILY [facility] Last Admin: 01/13/19 13:23 Dose: 81 mg Atorvastatin Calcium (Lipitor -) 20 mg PO HS [facility] Last Admin: 01/12/19 22:12 Dose: 20 mg Clopidogrel Bisulfate (Plavix -) 75 mg PO DAILY [facility] Last Admin: 01/13/19 13:23 Dose: 75 mg Docusate Sodium (Colace -) 100 mg PO BID [facility] Last Admin: 01/13/19 13:23 Dose: 100 mg Folic Acid (Folic Acid -) 1 mg PO DAILY [facility] Last Admin: 01/13/19 13:23 Dose: 1 mg Heparin Sodium (Porcine) (Heparin -) 5,000 unit SQ BID [facility] Last Admin: 01/13/19 13:23 Dose: 5,000 unit Isosorbide Mononitrate (Imdur -) 60 mg PO DAILY [facility] Last Admin: 01/13/19 13:23 Dose: 60 mg Nitroglycerin (Nitrostat -) 0.3 mg SL Q5M PRN PRN Reason: FOR CHEST PAIN Last Admin: 01/12/19 00:35 Dose: 0.3 mg Pantoprazole Sodium (Protonix -) 40 mg PO DAILY [facility] Last Admin: 01/13/19 13:23 Dose: 40 mg - Objective Vital Signs: Vital Signs Temperature 98 F 01/13/19 14:03 Pulse Rate 71 01/13/19 14:03 Respiratory Rate 16 01/13/19 14:03 Blood Pressure 118/77 01/13/19 14:03 O2 Sat by Pulse Oximetry (%) 98 01/13/19 12:21 Constitutional: Yes: No Distress Eyes: Yes: Conjunctiva Clear, EOM Intact HENT: Yes: Atraumatic, Normocephalic Neck: Yes: Supple, Trachea Midline Cardiovascular: Yes: Regular Rate and Rhythm, S1, S2 Respiratory: Yes: Regular, CTA Bilaterally Gastrointestinal: Yes: Normal Bowel Sounds, Soft Labs: CBC, BMP 01/13/19 05:15 01/13/19 05:15 INR, PTT INR 1.08 (0.83-1.09) 01/13/19 05:15 Assessment/Plan (1) KWAME (acute kidney injury) Code(s): N17.9 - ACUTE KIDNEY FAILURE, UNSPECIFIED (2) Chest pain Code(s): R07.9 - CHEST PAIN, UNSPECIFIED Qualifiers: Chest pain type: unspecified Qualified Code(s): R07.9 - Chest pain, unspecified (3) ASHD (arteriosclerotic heart disease) Code(s): I25.10 - ATHSCL HEART DISEASE OF [place] CORONARY ARTERY W/O ANG PCTRS (4) Anemia Code(s): D64.9 - ANEMIA, UNSPECIFIED (5) Anxiety Code(s): F41.9 - ANXIETY DISORDER, UNSPECIFIED (6) Atrial fibrillation Code(s): I48.91 - UNSPECIFIED ATRIAL FIBRILLATION (7) BPH (benign prostatic hyperplasia) Code(s): N40.0 - BENIGN PROSTATIC HYPERPLASIA WITHOUT LOWER URINRY TRACT SYMP (8) Chronic diastolic (congestive) heart failure Code(s): I50.32 - CHRONIC DIASTOLIC (CONGESTIVE) HEART FAILURE (9) Chronic lower back pain Code(s): M54.5 - LOW BACK PAIN; G89.29 - OTHER CHRONIC PAIN (10) Gout Code(s): M10.9 - GOUT, UNSPECIFIED (11) HTN (hypertension) Code(s): I10 - ESSENTIAL (PRIMARY) HYPERTENSION (12) Hematuria Code(s): R31.9 - HEMATURIA, UNSPECIFIED Qualifiers: Hematuria type: gross Qualified Code(s): R31.0 - Gross hematuria (13) Herpes simplex Code(s): B00.9 - HERPESVIRAL INFECTION, UNSPECIFIED (14) Hx of CABG Code(s): Z95.1 - PRESENCE OF AORTOCORONARY BYPASS GRAFT (15) Hyperlipidemia Code(s): E78.5 - HYPERLIPIDEMIA, UNSPECIFIED (16) Hyperlipidemia Code(s): E78.5 - HYPERLIPIDEMIA, UNSPECIFIED (17) MRSA bacteremia Code(s): R78.81 - BACTEREMIA (18) Obesity Code(s): E66.9 - OBESITY, UNSPECIFIED (19) PAD (peripheral artery disease) Code(s): I73.9 - PERIPHERAL VASCULAR DISEASE, UNSPECIFIED (20) Prophylactic measure Code(s): Z29.9 - ENCOUNTER FOR PROPHYLACTIC MEASURES, UNSPECIFIED (21) Prostate cancer Code(s): C61 - MALIGNANT NEOPLASM OF PROSTATE (22) Sepsis Code(s): A41.9 - SEPSIS, UNSPECIFIED ORGANISM (23) Septic shock Code(s): A41.9 - SEPSIS, UNSPECIFIED ORGANISM; R65.21 - SEVERE SEPSIS WITH SEPTIC SHOCK (24) Supratherapeutic INR Code(s): R79.1 - ABNORMAL COAGULATION PROFILE (25) Unstable angina Code(s): I20.0 - UNSTABLE ANGINA Code(s): R33.9 - RETENTION OF URINE, UNSPECIFIED Pt had EGD today Acid reflux across a sliding hiatal hernia was noted. patient was also found to have a large ampulla suggesting a neoplastic process.Pt will see Dr Amol Story at [facility] to arrange EUS and biopsy or ampullectomy as an outpatient. MRCP is pending
[2019-01-13] MEDS: ATORVASTATIN CA 20 MG TABLET (FP) PO SCH (21:09)
[2019-01-14] MEDS: FOLIC ACID 1 MG TABLET (FP) PO SCH (09:58)
[2019-01-14] MEDS: DOCUSATE SODIUM 100 MG CAPSULE (FP) PO SCH (09:58)
[2019-01-14] MEDS: HEPARIN NA (PORCINE) 5,000 UNITS/ML 1ML VIAL SQ SCH (09:58)
[2019-01-14] MEDS: PANTOPRAZOLE 40 MG TABLET (FP) PO SCH (09:58)
[2019-01-14] MEDS: ASPIRIN COATED 81 MG TABLET.EC PO SCH (09:58)
[2019-01-14] MEDS: ISOSORBIDE MONONITRATE 60 MG TAB.SR.24H (FP) PO SCH (09:58)
[2019-01-14] MEDS: CLOPIDOGREL BISULFATE 75 MG TABLET (FP) PO SCH (09:58)
[2019-01-14 10:33] VITALS: BP 98/60; PULSE 68; TEMP 98
[2019-01-14 17:07] LABS: GLIADIN ANTIBODY IGA 4 units (0-19); GLIADIN ANTIBODY IGG 4 units (0-19); TRANSGLUTAMINASE IGG < 2 U/mL (0-5)
--- NOTE | 2019-01-14 18:34 | PN ---
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 History of Present Illness: Case Discussed with cardiology also - Current Medication List Current Medications: Active Medications Acetaminophen (Tylenol -) 650 mg PO Q6H PRN PRN Reason: FEVER Al Hydroxide/Mg Hydroxide (Mylanta Oral Suspension -) 30 ml PO Q6H PRN PRN Reason: DYSPEPSIA Aspirin (Ecotrin -) 81 mg PO DAILY [facility] Last Admin: 01/14/19 09:58 Dose: 81 mg Atorvastatin Calcium (Lipitor -) 20 mg PO HS [facility] Last Admin: 01/13/19 21:09 Dose: 20 mg Clopidogrel Bisulfate (Plavix -) 75 mg PO DAILY [facility] Last Admin: 01/14/19 09:58 Dose: 75 mg Docusate Sodium (Colace -) 100 mg PO BID [facility] Last Admin: 01/14/19 09:58 Dose: 100 mg Folic Acid (Folic Acid -) 1 mg PO DAILY [facility] Last Admin: 01/14/19 09:58 Dose: 1 mg Heparin Sodium (Porcine) (Heparin -) 5,000 unit SQ BID [facility] Last Admin: 01/14/19 09:58 Dose: 5,000 unit Isosorbide Mononitrate (Imdur -) 60 mg PO DAILY [facility] Last Admin: 01/14/19 09:58 Dose: 60 mg Nitroglycerin (Nitrostat -) 0.3 mg SL Q5M PRN PRN Reason: FOR CHEST PAIN Last Admin: 01/12/19 00:35 Dose: 0.3 mg Pantoprazole Sodium (Protonix -) 40 mg PO DAILY [facility] Last Admin: 01/14/19 09:58 Dose: 40 mg - Objective Vital Signs: Vital Signs Temperature 98 F 01/14/19 09:00 Pulse Rate 68 01/14/19 09:00 Respiratory Rate 18 01/14/19 09:00 Blood Pressure 98/60 01/14/19 09:00 O2 Sat by Pulse Oximetry (%) 97 01/14/19 09:00 Constitutional: Yes: No Distress Eyes: Yes: Conjunctiva Clear, EOM Intact HENT: Yes: Atraumatic, Normocephalic Neck: Yes: Supple, Trachea Midline Cardiovascular: Yes: Regular Rate and Rhythm Respiratory: Yes: Regular, CTA Bilaterally Gastrointestinal: Yes: Normal Bowel Sounds, Soft Musculoskeletal: Yes: Joint Stiffness Edema: No Labs: CBC, BMP 01/13/19 05:15 01/13/19 05:15 INR, PTT INR 1.08 (0.83-1.09) 01/13/19 05:15 Problem List - Problems (1) KWAME (acute kidney injury) Code(s): N17.9 - ACUTE KIDNEY FAILURE, UNSPECIFIED (2) Abnormal LFTs (liver function tests) Code(s): R94.5 - ABNORMAL RESULTS OF LIVER FUNCTION STUDIES (3) Alkaline phosphatase elevation Code(s): R74.8 - ABNORMAL LEVELS OF OTHER SERUM ENZYMES (4) Ampulla of Vater mass Code(s): K83.8 - OTHER SPECIFIED DISEASES OF BILIARY TRACT (5) Atypical chest pain Code(s): R07.89 - OTHER CHEST PAIN (6) Dilated bile duct Code(s): K83.8 - OTHER SPECIFIED DISEASES OF BILIARY TRACT (7) Dyspepsia Code(s): R10.13 - EPIGASTRIC PAIN (8) History of colon polyps Code(s): Z86.010 - PERSONAL HISTORY OF COLONIC POLYPS (9) Anemia Code(s): D64.9 - ANEMIA, UNSPECIFIED (10) Anxiety Code(s): F41.9 - ANXIETY DISORDER, UNSPECIFIED (11) Atrial fibrillation Code(s): I48.91 - UNSPECIFIED ATRIAL FIBRILLATION (12) Hx of CABG Code(s): Z95.1 - PRESENCE OF AORTOCORONARY BYPASS GRAFT (13) Hyperlipidemia Code(s): E78.5 - HYPERLIPIDEMIA, UNSPECIFIED (14) Prostate cancer Code(s): C61 - MALIGNANT NEOPLASM OF PROSTATE Assessment/Plan (1) KWAME (acute kidney injury) Code(s): N17.9 - ACUTE KIDNEY FAILURE, UNSPECIFIED (2) Chest pain Code(s): R07.9 - CHEST PAIN, UNSPECIFIED Qualifiers: Chest pain type: unspecified Qualified Code(s): R07.9 - Chest pain, unspecified (3) ASHD (arteriosclerotic heart disease) Code(s): I25.10 - ATHSCL HEART DISEASE OF [place] CORONARY ARTERY W/O ANG PCTRS (4) Anemia Code(s): D64.9 - ANEMIA, UNSPECIFIED (5) Anxiety Code(s): F41.9 - ANXIETY DISORDER, UNSPECIFIED (6) Atrial fibrillation Code(s): I48.91 - UNSPECIFIED ATRIAL FIBRILLATION (7) BPH (benign prostatic hyperplasia) Code(s): N40.0 - BENIGN PROSTATIC HYPERPLASIA WITHOUT LOWER URINRY TRACT SYMP (8) Chronic diastolic (congestive) heart failure Code(s): I50.32 - CHRONIC DIASTOLIC (CONGESTIVE) HEART FAILURE (9) Chronic lower back pain Code(s): M54.5 - LOW BACK PAIN; G89.29 - OTHER CHRONIC PAIN (10) Gout Code(s): M10.9 - GOUT, UNSPECIFIED (11) HTN (hypertension) Code(s): I10 - ESSENTIAL (PRIMARY) HYPERTENSION (12) Hematuria Code(s): R31.9 - HEMATURIA, UNSPECIFIED Qualifiers: Hematuria type: gross Qualified Code(s): R31.0 - Gross hematuria (13) Herpes simplex Code(s): B00.9 - HERPESVIRAL INFECTION, UNSPECIFIED (14) Hx of CABG Code(s): Z95.1 - PRESENCE OF AORTOCORONARY BYPASS GRAFT (15) Hyperlipidemia Code(s): E78.5 - HYPERLIPIDEMIA, UNSPECIFIED (16) Hyperlipidemia Code(s): E78.5 - HYPERLIPIDEMIA, UNSPECIFIED (17) MRSA bacteremia Code(s): R78.81 - BACTEREMIA (18) Obesity Code(s): E66.9 - OBESITY, UNSPECIFIED (19) PAD (peripheral artery disease) Code(s): I73.9 - PERIPHERAL VASCULAR DISEASE, UNSPECIFIED (20) Prophylactic measure Code(s): Z29.9 - ENCOUNTER FOR PROPHYLACTIC MEASURES, UNSPECIFIED (21) Prostate cancer Code(s): C61 - MALIGNANT NEOPLASM OF PROSTATE (22) Sepsis Code(s): A41.9 - SEPSIS, UNSPECIFIED ORGANISM (23) Septic shock Code(s): A41.9 - SEPSIS, UNSPECIFIED ORGANISM; R65.21 - SEVERE SEPSIS WITH SEPTIC SHOCK (24) Supratherapeutic INR Code(s): R79.1 - ABNORMAL COAGULATION PROFILE (25) Unstable angina Code(s): I20.0 - UNSTABLE ANGINA Code(s): R33.9 - RETENTION OF URINE, UNSPECIFIED Pt had EGD today Acid reflux across a sliding hiatal hernia was noted. patient was also found to have a large ampulla suggesting a neoplastic process.Pt will see Dr Amol Story at [facility] to arrange EUS and biopsy or ampullectomy as an outpatient. MRCP is pending Pt will FU [facility] for Tumor Excision
[2019-01-14] MEDS ORDERED: TRAMADOL HCL 50 MG PO PRN (18:35)
--- NOTE | 2019-01-14 18:38 | DS ---
Physical Examination Vital Signs: Vital Signs Temperature 98 F 01/14/19 09:00 Pulse Rate 68 01/14/19 09:00 Respiratory Rate 18 01/14/19 09:00 Blood Pressure 98/60 01/14/19 09:00 O2 Sat by Pulse Oximetry (%) 97 01/14/19 09:00 Labs: CBC, BMP 01/13/19 05:15 01/13/19 05:15 Discharge Summary Reason For Visit: ACUTE KIDNEY INJURY Current Active Problems KWAME (acute kidney injury) (Acute) Abnormal LFTs (liver function tests) (Acute) Alkaline phosphatase elevation (Acute) Ampulla of Vater mass (Acute) Atypical chest pain (Acute) Chest pain (Acute) Dilated bile duct (Acute) Dyspepsia (Acute) History of colon polyps (Acute) Condition: Good - Instructions - Home Medications Comprehensive Discharge Medication List: Ambulatory Orders Folic Acid 1 mg PO DAILY 11/04/16 Tamsulosin HCl [Flomax] 0.8 mg PO DAILY 11/07/17 Omeprazole 40 mg PO DAILY 01/01/18 Allopurinol [Zyloprim -] 100 mg PO DAILY 09/04/18 Lisinopril [Zestril] 5 mg PO DAILY 09/04/18 Tramadol HCl 50 mg PO DAILY PRN 09/04/18 Colchicine 0.6 mg PO DAILY 10/12/18 Isosorbide Mononitrate [Isosorbide Mononitrate ER] 60 mg PO DAILY 10/12/18 Apixaban [Eliquis] 5 mg PO BID 01/11/19 Aspirin [Ecotrin] 81 mg PO DAILY 01/11/19 Atorvastatin Calcium 40 mg PO DAILY 01/11/19 Ranolazine [Ranexa] 500 mg PO BID 01/11/19
[2019-01-14 20:08] LABS: HEP B CORE AB, TOT Negative (Negative)
[2019-01-14] MEDS ORDERED: RANOLAZINE E.R. 500 MG TABLET (FP) PO SCH (22:00)
[2019-01-14] MEDS ORDERED: APIXABAN 5 MG TABLET PO SCH (22:00)
[2019-01-15] MEDS ORDERED: TAMSULOSIN HCL 0.8 MG PO SCH (08:30)
[2019-01-15] MEDS ORDERED: PATIENT'S OWN MEDICATION (NON-FORMULARY) (Colchicine [Colchicine] 0.6 MG) PO SCH (10:00)
[2019-01-15] MEDS ORDERED: LISINOPRIL 5 MG TABLET (FP) PO SCH (10:00)
[2019-01-15] MEDS ORDERED: PATIENT'S OWN MEDICATION (NON-FORMULARY) (Omeprazole [Omeprazole] 40 MG) PO SCH (10:00)
[2019-01-15] MEDS ORDERED: ASPIRIN 81 MG PO SCH (10:00)
[2019-01-15] MEDS ORDERED: ATORVASTATIN CALCIUM PO SCH (10:00)
[2019-01-15] MEDS ORDERED: PATIENT'S OWN MEDICATION (NON-FORMULARY) (Folic Acid [Folic Acid] 1 MG) PO SCH (10:00)
[2019-01-15] MEDS ORDERED: PATIENT'S OWN MEDICATION (NON-FORMULARY) (Isosorbide Mononitrate [Isosorbide Mononitrate E PO SCH (10:00)
[2019-01-15] MEDS ORDERED: ALLOPURINOL 100 MG TABLET (FP) PO SCH (10:00)
== END 2019-01-14 19:08 | disposition home or self-care (01) | DRG 445 ==
LOC: JER 11:36 → JERBED 15:16 → J4W 17:39
PROVIDERS: ADMIT Internal Medicine; ATTEND Internal Medicine
PROC: 0DJ08ZZ Inspection of Upper Intestinal Tract, Via Natural or Artificial Opening Endoscopic (ICD-10-PCS; principal; 2019-01-13 10:00)
DX: K83.8 Other specified diseases of biliary tract (principal); N17.9 Acute kidney failure, unspecified; I50.32 Chronic diastolic (congestive) heart failure; I25.10 Atherosclerotic heart disease of native coronary artery without angina pectoris; I10 Essential (primary) hypertension; E78.5 Hyperlipidemia, unspecified; I48.0 Paroxysmal atrial fibrillation; K21.9 Gastro-esophageal reflux disease without esophagitis; R00.1 Bradycardia, unspecified; I44.7 Left bundle-branch block, unspecified; M54.5 Low back pain; D64.9 Anemia, unspecified; R74.8 Abnormal levels of other serum enzymes; I11.0 Hypertensive heart disease with heart failure; F41.9 Anxiety disorder, unspecified; E66.3 Overweight; E87.5 Hyperkalemia; K44.9 Diaphragmatic hernia without obstruction or gangrene; M10.9 Gout, unspecified; I73.9 Peripheral vascular disease, unspecified; R94.5 Abnormal results of liver function studies; R10.13 Epigastric pain; N40.0 Benign prostatic hyperplasia without lower urinary tract symptoms; Z85.46 Personal history of malignant neoplasm of prostate; Z95.5 Presence of coronary angioplasty implant and graft; Z95.1 Presence of aortocoronary bypass graft; Z79.01 Long term (current) use of anticoagulants; Z68.28 Body mass index [BMI] 28.0-28.9, adult
CPT/HCPCS: 36415; 71045-TC-FY; 74181-TC; 80048; 80053; 81003; 82150; 82465; 82550; 82728; 82784; 82977; 83036; 83516; 83540; 83550; 83690; 83735; 84155; 84165; 84443; 84484; 84550; 85025; 85027; 85044; 85610; 86038; 86140; 86301; 86704; 86706; 86707; 86708; 86709; 86803; 87077; 87081; 87086; 87340; 93005; 93010; 99284-25; J1644

== ENCOUNTER 2019-01-23 18:41 | Inpatient (IN) | payer OTHER, MEDICARE ==
[2019-01-23 18:54] VITALS: BMI 29.0
--- NOTE | 2019-01-23 19:14 | PDOC ---
History of Present Illness - General Chief Complaint: Hematuria Stated Complaint: PCP SENT Time Seen by Provider: 01/23/19 19:13 History Source: Patient Exam Limitations: No Limitations - History of Present Illness Initial Comments: Pt is a 79 yo M, with PMH of UTIs/urinary retention (last admission for KWAME), hiatal hernia (with possible neoplasm), HTN, HLD, CAD (s/p CABG), Afib (on Eliquis), and prostate CA (s/p seeding, last chemo 2009), who is presenting from Urgent Care for concern of UTI. Pt states x2 days he has had generalized weakness, nausea/vomiting, hematuria, and urinary urgency and frequency. Pt has a low-grade temperature of 100.0 (oral) at home. Pt had a BM yesterday which was normal in caliber. Pt was recently at [facility] for KWAME, but did not have a bishop catheter placement at that time. Pt denies any headache, vision changes, syncope, chest pain, palpitations, SOB, abdominal pain, diarrhea/constipation, or leg swelling. Allergies: NKDA PCP: Dr. Traylor (Dr. Taylor) Cards: Dr. Andrade GI: Dr. Ruvalcaba -- will see specialist Dr. Amol Story for further work-up 2018 (dilated CBD, liver cysts, concern for neoplasm) Social: Pt denies any cigarette, alcohol, or drug use. Pt denies any recent travel or sick contacts. Surgical: prostate seeding, CABG as above Family: no relevant history. 01/23/19 20:13 01/23/19 21:16 Past History - Travel Traveled outside of the country in the last 30 days: No Close contact w/someone who was outside of country & ill: No - Past Medical History Allergies/Adverse Reactions: Allergies Allergy/AdvReac Type Severity Reaction Status Date / Time strawberry Allergy Severe Swelling Verified 01/23/19 18:50 pepper (genus Capsicum) Allergy Unknown Verified 01/23/19 18:50 black pepper Allergy Verified 01/23/19 18:50 iohexol [From Omnipaque] Allergy Rash Verified 01/23/19 18:50 Iodinated Contrast Media AdvReac Rash Verified 01/23/19 18:50 red pepper Allergy Uncoded 01/23/19 18:50 Home Medications: Ambulatory Orders Folic Acid 1 mg PO DAILY 11/04/16 Tamsulosin HCl [Flomax] 0.8 mg PO DAILY 11/07/17 Omeprazole 40 mg PO DAILY 01/01/18 Allopurinol [Zyloprim -] 100 mg PO DAILY 09/04/18 Lisinopril [Zestril] 5 mg PO DAILY 09/04/18 Tramadol HCl 50 mg PO DAILY PRN 09/04/18 Colchicine 0.6 mg PO DAILY 10/12/18 Isosorbide Mononitrate [Isosorbide Mononitrate ER] 60 mg PO DAILY 10/12/18 Apixaban [Eliquis] 5 mg PO BID 01/11/19 Aspirin [Ecotrin] 81 mg PO DAILY 01/11/19 Atorvastatin Calcium 40 mg PO DAILY 01/11/19 Ranolazine [Ranexa] 500 mg PO BID 01/11/19 Anemia: Yes Asthma: No Cancer: Yes (PROSTATE CANCER 2011) Cardiac Disorders: Yes (coronary artery disease, cardiac bypass 10 years ago, Afib) CVA: No COPD: No CHF: Yes Dementia: No Diabetes: No GI Disorders: No Disorders: Yes (STONES, chronic UTIs) HTN: Yes Hypercholesterolemia: Yes Kidney Stones: Yes Liver Disease: No Seizures: No Thyroid Disease: No - Surgical History Abdominal Surgery: No Appendectomy: No Cardiac Surgery: Yes (open heart, 2 stents) Cholecystectomy: No Lung Surgery: No Neurologic Surgery: No Orthopedic Surgery: No - Immunization History Immunization Up to Date: Yes - Psycho Social/Smoking Cessation Hx Smoking Status: Yes Smoking History: Never smoked Have you smoked in the past 12 months: No Number of Cigarettes Smoked Daily: 0 If you are a former smoker, when did you quit?: 2002 'Breaking Loose' booklet given: 11/10/17 Hx Alcohol Use: No Drug/Substance Use Hx: No Substance Use Type: None Hx Substance Use Treatment: No Abd/GI Specific PMHX - Complaint Specific PMHX Colitis: No Diverticulitis: No Gall Bladder Disease: No GERD: No Hepatitis: No Irritable Bowel Synd (IBS): No Pancreatitis: No GI Ulcer Disease: No Other History: hiatal hernia Review of Systems - Review of Systems Able to Perform ROS?: Yes Is the patient limited Faroese proficient: No Constitutional: Yes: Chills, Fever, Malaise, Weakness, Weight Stable. No: Diaphoresis, Loss of Appetite, Night Sweats HEENTM: No: Recent change in vision, Nose Congestion, Throat Pain, Throat Swelling, Difficulty Swallowing Respiratory: No: Cough, Orthopnea, Shortness of Breath Cardiac (ROS): No: Chest Pain, Edema, Irregular Heart Rate, Lightheadedness, Palpitations, Syncope, Chest Tightness ABD/GI: Yes: Nausea, Poor Appetite, Poor Fluid Intake, Vomiting. No: Blood Streaked Bowels, Constipated, Diarrhea, Abdominal cramping, Tarry Stools : Yes: Frequency, Hematuria, Urgency. No: Burning, Dysuria, Flank Pain, Pain , Testicular Pain Musculoskeletal: No: Back Pain, Joint Pain, Muscle Pain, Muscle Weakness Integumentary: No: Rash Neurological: No: Headache, Numbness, Weakness, Unsteady Gait, Dizziness Psychiatric: No: Sleep Pattern Change, Change in Appetite Endocrine: No: Increased Urine, Change in Weight Hematologic/Lymphatic: Yes: Blood Clots (CABG, PVD (stents in legs)). No: Anemia, Easy Bleeding, Easy Bruising All Other Systems: Reviewed and Negative *Physical Exam - Vital Signs Last Vital Signs Temp Pulse Resp BP Pulse Ox 98 F 59 L 20 108/53 L 99 01/23/19 18:45 01/23/19 18:45 01/23/19 18:45 01/23/19 18:45 01/23/19 18:45 - Physical Exam Comments: Vitals stable, pt afebrile at this time. Pt in NAD, lying comfortably on the bed. Overweight body habitus. Pt alert and oriented x3. 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 No midline spinal tenderness, step-offs, or crepitus. Head normocephalic, atraumatic. Eyes PERRLA, EOMI. Oropharynx without erythema or exudates, no LAD b/l. No nasal congestion. Hearing intact. Clear heart sounds, S1/S2, no JVD, b/l pedal edema, or heart murmur. +midline chest wall scar (CABG) Clear lung sounds, no respiratory distress, wheezes, crackles, or accessory muscle use. No abdominal or CVA tenderness to palpation, no rebound, no guarding. Abdomen soft, non-distended, and with normoactive bowel sounds. Skin without jaundice or rash. 01/23/19 20:23 01/23/19 21:17 ED Treatment Course - LABORATORY CBC & Chemistry Diagram: 01/23/19 19:45 01/23/19 19:45 Medical Decision Making - Medical Decision Making Pt was seen at bedside, also will be seen by attending Dr. Machado. Pt presenting with complaints of hematuria, fever, and vomiting x2 days. Pt with normal BMs, unlikely obstructed. Pt has had UTIs in the past, but has not had recent bishop catheterization. Abdomen soft and non-distended. Will evaluate for infection ( UTI), sent UA and urine/blood cultures, as pt may have low grade fever. Will check for electrolyte imbalances, KWAME, pancreatitis. No CVA TTP to suggest pyelo. Provided 1 L IV NS and pepcid for improvement of dehydration and indigestion. Will continue to reassess pt and monitor for symptomatic improvement. ECG: Sinus with 1st degree block (HR 74, IA 218, QRS 122, QTC 468). No TWIs or significant ST segment changes. No significant changes from prior ECG (was in Afib 01/12/2019). 01/23/19 21:19 CBC WNL for pt (baseline anemia) CMP: BUN 26, Cr 1.7 (elevated from baseline) -- providing IVF (bolus and maintenance) UA -- +nitrite, +LE, +bacteria -- prior cultures showed sensitivity to Levaquin. No QTC prolongation on EKG. Pt admitted to PCP (Dr. Taylor) for KWAME and inpatient antibiotics, as pt with difficulty tolerating PO intake. ID consult placed (Dr. Romero). Pt hemodynamically stable and resting comfortably. No pain at this time. 01/23/19 21:27 Discharge - Discharge Information Problems reviewed: Yes Clinical Impression/Diagnosis: KWAME (acute kidney injury) Urinary tract infection Qualifiers: Urinary tract infection type: acute cystitis Hematuria presence: with hematuria Qualified Code(s): N30.01 - Acute cystitis with hematuria Nausea and vomiting Qualifiers: Vomiting type: unspecified Vomiting Intractability: non-intractable Qualified Code(s): R11.2 - Nausea with vomiting, unspecified Condition: Stable - Admission Yes - Follow up/Referral - Patient Discharge Instructions - Post Discharge Activity
[2019-01-23] MEDS ORDERED: SODIUM CHLORIDE 1,000 ML IV STA (19:41)
[2019-01-23 19:53] LABS: PH,URINE 5.5 (5.0-8.0); URINE APPEARANCE Slightly Cloudy; URINE BILIRUBIN 3+ (NEGATIVE); URINE COLOR Dark yellow; URINE GLUCOSE (UA) Trace (NEGATIVE); URINE KETONE 1+ (NEGATIVE); URINE LEUK ESTERASE Trace (NEGATIVE); URINE NITRITE Positive (NEGATIVE); URINE PROTEIN 2+ (NEGATIVE)
[2019-01-23 20:03] LABS: BASO % 0.7 % (0-2.0); EOS % 1.4 % (0-4.5); HEMATOCRIT 34.1 % (35.4-49); HEMOGLOBIN 11.4 GM/dL (11.7-16.9); LYMPH % 6.1 % (8-40); MCH 31.2 pg (25.7-33.7); MCHC 33.4 g/dl (32.0-35.9); MEAN CELL VOLUME 93.5 fl (80-96); MONO % 10.7 % (3.8-10.2); NEUT % 81.1 % (42.8-82.8); PLATELET COUNT 215 K/MM3 (134-434); RBC 3.65 M/mm3 (4.00-5.60); RDW 16.4 % (11.9-15.9)
[2019-01-23 20:12] LABS: INR 1.54 (0.83-1.09); PROTHROMBIN TIME (PATIENT) 18.2 SEC (9.7-13.0)
[2019-01-23 20:15] LABS: ACTIVATED PTT 31.2 SECONDS (25.2-36.5)
[2019-01-23 20:40] LABS: ALBUMIN 3.3 g/dl (3.4-5.0); ALK PHOS 654 U/L (45-117); ANION GAP 8 MMOL/L (8-16); BILIRUBIN,TOTAL 2.6 mg/dL (0.2-1); BLOOD UREA NITROGEN 26.3 mg/dL (7-18); CALCIUM 9.1 mg/dL (8.5-10.1); CHLORIDE 104 mmol/L (98-107); CO2 23 mmol/L (21-32); CREATININE 1.7 mg/dL (0.55-1.3); GLUCOSE,RANDOM 122 mg/dL (74-106); POTASSIUM 4.4 mmol/L (3.5-5.1); SGOT/AST 180 U/L (15-37); SGPT/ALT 233 U/L (13-61); SODIUM 136 mmol/L (136-145); TOT PROT 6.2 g/dl (6.4-8.2)
--- NOTE | 2019-01-23 20:54 | PDOC ---
Attending Attestation - Resident Resident Name: MiloVicky - ED Attending Attestation I have performed the following: I have examined & evaluated the patient, The case was reviewed & discussed with the resident, I agree w/resident's findings & plan - HPI HPI: 01/23/19 21:06 Pt comes with hematuria and gastritis and vomiting. He has a hx of ampulla carcinoma and elevated LFTs. He has a hx of complicated UTIs related to enlarged prostate. He has CAD. - Physicial Exam PE: 01/23/19 21:07 Agree with resident exam - Medical Decision Making 01/23/19 21:07 Pt will be admitted to the hospital, as he cannot tolerate oral abx at this time. Also he has worsening LFTs in the ER Pt's PMDs are aware; he will be admitted to the hospitalists overnight. ID consult with Dr. Romero requested. Heart Score/ECG Review - ECG Intrepretation Rhythm: Regular Rhythm - [place]: Normal - P and [place] Delta Wave(s) Present: No WPW: No - QRS Widened: IVCD Poor R Wave Progression: No Q Wave Present: No - ST and T Early Repolarization: No Non Specific ST-T Wave changes: No - ECG Impressions Normal ECG: No Non-specific ST Elevation: No Ischemic Changes: No Bradycardia: No
[2019-01-23] MEDS ORDERED: FAMOTIDINE 20 MG/50 ML IVPB 20 MG/50 ML MG IVPB ONE ×2 (20:57→21:31)
[2019-01-23] MEDS ORDERED: SODIUM CHLORIDE 1,000 ML IV SCH (21:00)
[2019-01-23 22:24] LABS: URINE RBC 0-3 /hpf (0-4); URINE WBC 0-3 /hpf (0-5)
[2019-01-23 22:25] LABS: URINE BACTERIA FEW /hpf (NEGATIVE)
--- NOTE | 2019-01-24 01:01 | HP ---
CHIEF COMPLAINT: hematuria HISTORY OF PRESENT ILLNESS: 79 year old male with a history of frequent UTIs and urinary retention, hiatal hernia, CAD s/p CABG, Afib on eliquis, prostate CA in 2009 presented from urgent care for 2 days of reported hematuria. Patient states that his noticed him having red-colored urine 2 days prior and told him to go get checked out. Reports one episode of non-bloody non-bilious vomiting yesterday. Reports urinary frequency. Denies dysuria, fevers, chills, nausea, vomiting, diarrhea. Patient recently had an EGD with Dr. Ruvalcaba that revealed a large ampulla suggesting a neoplastic process. Patient was instructed to follow with Dr. Amol Story at [facility] to schedule an endoscopic ultrasound/biopsy or ampullectomy as an outpatient. Patient had not yet had a chance to go to see Dr. Story. He is currently asymptomatic, and per nurse, urine is not red. ER course was notable for: (1) KWAME Cre 1.7 (2) Transaminitis (3) Hyperbilirubinemia Recent Travel: denies PAST MEDICAL HISTORY: frequent UTIs and urinary retention, hiatal hernia, CAD s/ p CABG, Afib on eliquis, prostate CA in 2009 PAST SURGICAL HISTORY: cardiac stents, prostate surgery Social History: Smoking: former, quit 15 years ago Alcohol: denies Drugs: denies Family History: dad with hodgkin's lymphoma and a twin brother who recently passed from a digestive cancer Allergies strawberry Allergy (Severe, Verified 01/23/19 18:50) Swelling pepper (genus Capsicum) Allergy (Unknown, Verified 01/23/19 18:50) black pepper Allergy (Verified 01/23/19 18:50) iohexol [From Omnipaque] Allergy (Verified 01/23/19 18:50) Rash Iodinated Contrast Media Adverse Reaction (Verified 01/23/19 18:50) Rash red pepper Allergy (Uncoded 01/23/19 18:50) HOME MEDICATIONS: Home Medications Medication Instructions Recorded Folic Acid 1 mg PO DAILY 11/04/16 Tamsulosin HCl [Flomax] 0.8 mg PO DAILY 11/07/17 Omeprazole 40 mg PO DAILY 01/01/18 Allopurinol [Zyloprim -] 100 mg PO DAILY 09/04/18 Lisinopril [Zestril] 5 mg PO DAILY 09/04/18 Tramadol HCl 50 mg PO DAILY PRN 09/04/18 Colchicine 0.6 mg PO DAILY 10/12/18 Isosorbide Mononitrate [Isosorbide 60 mg PO DAILY 10/12/18 Mononitrate ER] Apixaban [Eliquis] 5 mg PO BID 01/11/19 Aspirin [Ecotrin] 81 mg PO DAILY 01/11/19 Atorvastatin Calcium 40 mg PO DAILY 01/11/19 Ranolazine [Ranexa] 500 mg PO BID 01/11/19 REVIEW OF SYSTEMS CONSTITUTIONAL: Absent: fever, chills, diaphoresis, generalized weakness, malaise, loss of appetite, weight change HEENT: Absent: rhinorrhea, nasal congestion, throat pain, throat swelling, difficulty swallowing, mouth swelling, ear pain, eye pain, visual changes CARDIOVASCULAR: Absent: chest pain, syncope, palpitations, irregular heart rate, lightheadedness , peripheral edema RESPIRATORY: Absent: cough, shortness of breath, dyspnea with exertion, orthopnea, wheezing, stridor, hemoptysis GASTROINTESTINAL: Absent: abdominal pain, abdominal distension, nausea, vomiting, diarrhea, constipation, melena, hematochezia GENITOURINARY: Absent: dysuria, frequency, urgency, hesitancy, hematuria, flank pain, genital pain MUSCULOSKELETAL: Absent: myalgia, arthralgia, joint swelling, back pain, neck pain SKIN: Absent: rash, itching, pallor HEMATOLOGIC/IMMUNOLOGIC: Absent: easy bleeding, easy bruising, lymphadenopathy, frequent infections ENDOCRINE: Absent: unexplained weight gain, unexplained weight loss, heat intolerance, cold intolerance NEUROLOGIC: Absent: headache, focal weakness or paresthesias, dizziness, unsteady gait, seizure, mental status changes, bladder or bowel incontinence PSYCHIATRIC: Absent: anxiety, depression, suicidal or homicidal ideation, hallucinations. PHYSICAL EXAMINATION Vital Signs - 24 hr 01/23/19 01/23/19 01/23/19 18:45 20:02 21:45 Temperature 98 F 99.2 F Pulse Rate 59 L Pulse Rate [ 78 Left Radial] Respiratory 20 18 Rate Blood Pressure 108/53 L Blood Pressure 126/76 [Left Arm] O2 Sat by Pulse 99 99 Oximetry (%) 01/23/19 01/23/19 23:02 23:31 Temperature 98.7 F Pulse Rate 73 Pulse Rate [ Left Radial] Respiratory 22 H Rate Blood Pressure 137/60 Blood Pressure [Left Arm] O2 Sat by Pulse 99 Oximetry (%) GENERAL: A&Ox3, no acute distress EYES: PERRLA, EOMI ENT: Moist mucus membranes NECK: No JVD LUNGS: CTA, no wheezes HEART: RRR, no murmurs ABDOMEN: Soft, nontender, BS present MUSCULOSKELETAL: No CVA Tenderness EXTREMITIES: 2+ pulses, no edema. NEUROLOGICAL: Cranial nerves II-XII intact. Laboratory Results - last 24 hr 01/23/19 01/23/19 01/23/19 19:30 19:45 19:45 WBC 10.0 RBC 3.65 L Hgb 11.4 L Hct 34.1 L MCV 93.5 MCH 31.2 MCHC 33.4 RDW 16.4 H Plt Count 215 MPV 9.0 Absolute Neuts (auto) 8.2 H Neutrophils % 81.1 D Lymphocytes % 6.1 L D Monocytes % 10.7 H Eosinophils % 1.4 Basophils % 0.7 Nucleated RBC % 0 PT with INR 18.20 H INR 1.54 H PTT (Actin FS) 31.2 Sodium Potassium Chloride Carbon Dioxide Anion Gap BUN Creatinine Est GFR (CKD-EPI)AfAm Est GFR (CKD-EPI)NonAf Random Glucose Calcium Total Bilirubin AST ALT Alkaline Phosphatase Creatine Kinase Troponin I Total Protein Albumin Lipase Urine Color Dark yellow Urine Appearance Slightly cloudy Urine pH 5.5 Ur Specific [place] 1.025 Urine Protein 2+ H Urine Glucose (UA) Trace Urine Ketones 1+ H Urine Blood Negative Urine Nitrite Positive Urine Bilirubin 3+ H Urine Urobilinogen 1.0 Ur Leukocyte Esterase Trace Urine WBC (Auto) 0-3 Urine RBC (Auto) 0-3 Urine Bacteria (Auto) Few 01/23/19 01/23/19 19:45 19:45 WBC RBC Hgb Hct MCV MCH MCHC RDW Plt Count MPV Absolute Neuts (auto) Neutrophils % Lymphocytes % Monocytes % Eosinophils % Basophils % Nucleated RBC % PT with INR INR PTT (Actin FS) Sodium 136 Potassium 4.4 Chloride 104 Carbon Dioxide 23 Anion Gap 8 BUN 26.3 H Creatinine 1.7 H Est GFR (CKD-EPI)AfAm 43.49 Est GFR (CKD-EPI)NonAf 37.52 Random Glucose 122 H Calcium 9.1 Total Bilirubin 2.6 H D AST 180 H ALT 233 H Alkaline Phosphatase 654 H Creatine Kinase 33 Troponin I < 0.02 Total Protein 6.2 L Albumin 3.3 L Lipase 60 L Urine Color Urine Appearance Urine pH Ur Specific [place] Urine Protein Urine Glucose (UA) Urine Ketones Urine Blood Urine Nitrite Urine Bilirubin Urine Urobilinogen Ur Leukocyte Esterase Urine WBC (Auto) Urine RBC (Auto) Urine Bacteria (Auto) ASSESSMENT/PLAN: 79 year old male with a history of frequent UTIs and urinary retention, hiatal hernia, CAD s/p CABG, Afib on eliquis, prostate CA in 2009 presented from urgent care for 2 days of reported hematuria and admitted for acute kidney injury #Acute Kidney Injury: likely pre-renal in origin, will hydrate and reassess; patient is currently asymptomatic -hold lisinopril -IVF with normal saline 1 bag @ 75cc/hr -kidney/renal ultrasound ordered -bladder scan to r/o retention -repeat BMP in AM #Transaminitis: likely 2/2 obstructive/neoplastic process patient has around bile ducts and ampullar of vater. -MRCP on 01/07 - massively dilated CBD 2.6cm with enlargement of ampulla -s/p EGD with Dr. Ruvalcaba showing dilated CBD and ampulla; patient was referred to Dr. Amol Story at [facility] for endoscopic ultrasound and biopsy/excision -repeat CMP -if condition worsens, can consider to consult GI, otherwise would likely need to get to [facility] to Dr. Story for EUS and further treatment -no need to repeat imaging at this time as patient is asymptomatic and very recently had MRI #Hyperbilirubinemia: same plan as above #Hematuria: no hematuria noted, UA negative for blood -continue to monitor urine #CAD s/p CABG -continue aspirin -continue imdur -continue atorvastatin -continue ranolazine #Atrial Fibrillation: rate controlled -continue eliquis -not on BB or CCB at home #Hypertension: -lisinopril held due to KWAME -BP mildly hypertensive, continue to monitor #FEN -NS @ 75cc/hr -replete lytes as necessary -low sodium diet #Prophylaxis -SCDs #Disposition -anticipate DC tomorrow or the following day to go to [facility] for GI followup Visit type - Emergency Visit Emergency Visit: No - New Patient This patient is new to me today: Yes Date on this admission: 01/24/19 - Critical Care Critical Care patient: No ATTENDING PHYSICIAN STATEMENT I saw and evaluated the patient. I reviewed the resident's note and discussed the case with the resident. I agree with the resident's findings and plan as documented. SUBJECTIVE: OBJECTIVE: ASSESSMENT AND PLAN:
--- NOTE | 2019-01-24 01:55 | PN ---
Teaching Attending Note Name of Resident: Alexander Trinidad ATTENDING PHYSICIAN STATEMENT I saw and evaluated the patient. I reviewed the resident's note and discussed the case with the resident. I agree with the resident's findings and plan as documented. SUBJECTIVE: 79 year old male with a history of frequent UTIs and urinary retention, hiatal hernia, CAD s/p CABG, Afib on eliquis, prostate CA in 2009 presented from urgent care for reported hematuria. Hematuria was already resolved by the time patient was in ER. He also c/o several episodes of bilous vomiting at home last night. He denied any dysuria, fevers, chills. S/p MRCP, EGD performed by Dr. Ruvalcaba here in [facility], revealed large ampulla, no stones found. Pt is scheduled for EUS at [facility] on 02/04 for biopsy of suspected ampulla tumor. OBJECTIVE: Last Vital Signs Temp Pulse Resp BP Pulse Ox 98.7 F 73 22 H 137/60 99 01/23/19 23:02 01/23/19 23:02 01/23/19 23:02 01/23/19 23:02 01/23/19 23:31 gen - comfortable, nad heent- at, nc neck supple cv-s1+s2+rrr chest clear abdomen -soft, nt , no CVA tenderness ext - no pedal edema Abnormal Lab Results 01/23/19 01/23/19 01/23/19 19:30 19:45 19:45 RBC 3.65 L Hgb 11.4 L Hct 34.1 L RDW 16.4 H Absolute Neuts (auto) 8.2 H Lymphocytes % 6.1 L D Monocytes % 10.7 H PT with INR 18.20 H INR 1.54 H BUN Creatinine Random Glucose Total Bilirubin AST ALT Alkaline Phosphatase Total Protein Albumin Lipase Urine Protein 2+ H Urine Ketones 1+ H Urine Bilirubin 3+ H 01/23/19 01/23/19 19:45 19:45 RBC Hgb Hct RDW Absolute Neuts (auto) Lymphocytes % Monocytes % PT with INR INR BUN 26.3 H Creatinine 1.7 H Random Glucose 122 H Total Bilirubin 2.6 H D AST 180 H ALT 233 H Alkaline Phosphatase 654 H Total Protein 6.2 L Albumin 3.3 L Lipase 60 L Urine Protein Urine Ketones Urine Bilirubin imaging reviewed ASSESSMENT AND PLAN: #transaminitis - likely from cbd dilatation, 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
[2019-01-24] MEDS ORDERED: SODIUM CHLORIDE 1,000 ML IV SCH ×2 (02:00→10:14)
[2019-01-24 08:17] LABS: HEMATOCRIT 30.2 % (35.4-49); HEMOGLOBIN 10.2 GM/dL (11.7-16.9); MCH 31.2 pg (25.7-33.7); MEAN CELL VOLUME 91.9 fl (80-96); MEAN PLT VOLUME 8.9 fl (7.5-11.1); PLATELET COUNT 201 K/MM3 (134-434); RBC 3.28 M/mm3 (4.00-5.60); RDW 16.4 % (11.9-15.9); WHITE BLOOD COUNT 6.1 K/mm3 (4.0-10.0)
[2019-01-24 08:45] LABS: ALBUMIN 2.7 g/dl (3.4-5.0); BILIRUBIN,TOTAL 2.1 mg/dL (0.2-1); BLOOD UREA NITROGEN 19.5 mg/dL (7-18); CALCIUM 8.7 mg/dL (8.5-10.1); CREATININE 1.2 mg/dL (0.55-1.3); POTASSIUM 4.3 mmol/L (3.5-5.1); TOT PROT 5.1 g/dl (6.4-8.2)
--- NOTE | 2019-01-24 09:35 | CON.ID ---
Consult Consult Specialty:: infectious diseases Referred by:: Reason for Consultation:: hematuria - History of Present Illness Chief Complaint: hematuria History of Present Illness: 79 year old male with a history of frequent UTIs and urinary retention, hiatal hernia, CAD s/p CABG, Afib on eliquis, prostate CA in 2009 presented from urgent care for 2 days of reported hematuria. currently patient does not have any hematuria denies any other symptoms patient reports urinary frequency ,also patient mentions that he had vomiting . Patient recently had an EGD with Dr. Ruvalcaba that revealed a large ampulla suggesting a neoplastic process. patient is supposed to have endoscopic ultrasound currently feels better - History Source History Provided By: Patient Limitations to Obtaining History: No Limitations - Past Medical History Cardio/Vascular: Yes: AFIB, CAD, CHF, HTN, Hyperlipdemia, Other (PVD, CAD, Coronary Bypass, CAD, Stent lower left leg) Gastrointestinal: Yes: GERD Hepatobiliary: Yes: Other (dilated CBD ? etiology) Renal/: Yes: BPH (had laser TURB following the RT), Cancer (prostate cancer treated with RT seeds and ext. beam), Renal Calculi, Other (urethral stricture dilated in the past and culminating in urosepsis) Musculoskeletal: Yes: Osteoarthritis (Chronic Lower back pain) Rheumatology: Yes: Gout - Past Surgical History Past Surgical History: Yes: CABG, Stent (stents, both cardiac and LLE) - Alcohol/Substance Use Hx Alcohol Use: No History of Substance Use: reports: None - Smoking History Smoking history: Never smoked Have you smoked in the past 12 months: No Aproximately how many cigarettes per day: 0 If you are a former smoker, when did you quit?: 2002 - Social History Usual Living Arrangement: With Spouse ADL: Independent Occupation: Retired [employer] History of Recent Travel: No Home Medications - Allergies Allergies/Adverse Reactions: Allergies Allergy/AdvReac Type Severity Reaction Status Date / Time strawberry Allergy Severe Swelling Verified 01/23/19 18:50 pepper (genus Capsicum) Allergy Unknown Verified 01/23/19 18:50 black pepper Allergy Verified 01/23/19 18:50 iohexol [From Omnipaque] Allergy Rash Verified 01/23/19 18:50 Iodinated Contrast Media AdvReac Rash Verified 01/23/19 18:50 red pepper Allergy Uncoded 01/23/19 18:50 - Home Medications Home Medications: Ambulatory Orders Folic Acid 1 mg PO DAILY 11/04/16 Tamsulosin HCl [Flomax] 0.8 mg PO DAILY 11/07/17 Omeprazole 40 mg PO DAILY 01/01/18 Allopurinol [Zyloprim -] 100 mg PO DAILY 09/04/18 Lisinopril [Zestril] 5 mg PO DAILY 09/04/18 Tramadol HCl 50 mg PO DAILY PRN 09/04/18 Colchicine 0.6 mg PO DAILY 10/12/18 Isosorbide Mononitrate [Isosorbide Mononitrate ER] 60 mg PO DAILY 10/12/18 Apixaban [Eliquis] 5 mg PO BID 01/11/19 Aspirin [Ecotrin] 81 mg PO DAILY 01/11/19 Atorvastatin Calcium 40 mg PO DAILY 01/11/19 Ranolazine [Ranexa] 500 mg PO BID 01/11/19 Review of Systems - Review of Systems Constitutional: reports: No Symptoms Eyes: reports: No Symptoms HENT: reports: No Symptoms Neck: reports: No Symptoms Cardiovascular: reports: No Symptoms Respiratory: reports: No Symptoms Gastrointestinal: reports: Vomiting Genitourinary: reports: Dysuria, Hematuria Musculoskeletal: reports: No Symptoms Integumentary: reports: No Symptoms Neurological: reports: No Symptoms Endocrine: reports: No Symptoms Hematology/Lymphatic: reports: No Symptoms Psychiatric: reports: No Symptoms Physical Exam Vital Signs: Vital Signs Temperature 99 F 01/24/19 05:45 Pulse Rate 69 01/24/19 05:45 Respiratory Rate 20 01/24/19 05:45 Blood Pressure 131/72 01/24/19 05:45 O2 Sat by Pulse Oximetry (%) 99 01/23/19 23:31 Constitutional: Yes: Well Nourished, No Distress, Calm Cardiovascular: Yes: Pulse Irregular Respiratory: Yes: Regular, CTA Bilaterally Gastrointestinal: Yes: Normal Bowel Sounds, Soft Musculoskeletal: Yes: WNL Extremities: Yes: WNL Neurological: Yes: Alert, Oriented Psychiatric: Yes: Alert, Oriented Labs: CBC, BMP 01/24/19 07:35 01/24/19 07:35 Assessment/Plan 79 year old male with a history of frequent UTIs and urinary retention, hiatal hernia, CAD s/p CABG, Afib on eliquis, prostate CA in 2009 presented from urgent care for 2 days of reported hematuria and admitted for acute kidney injury hematuria hyperbiluinemia ac kidney injury afib htn plan will start patient on ceftriaxone continue current mgmt await for cx reports rest as per the team
[2019-01-24] MEDS ORDERED: LISINOPRIL 5 MG TABLET (FP) PO SCH (10:00)
--- NOTE | 2019-01-24 10:14 | PN ---
Progress Note (short form) - Note Progress Note: Events noted has dark urine no abd pain or back pain Vital Signs - 24 hr 01/23/19 01/23/19 01/23/19 18:45 20:02 21:45 Temperature 98 F 99.2 F Pulse Rate 59 L Pulse Rate [ 78 Left Radial] Respiratory 20 18 Rate Blood Pressure 108/53 L Blood Pressure 126/76 [Left Arm] O2 Sat by Pulse 99 99 Oximetry (%) 01/23/19 01/23/19 01/24/19 23:02 23:31 05:45 Temperature 98.7 F 99 F Pulse Rate 73 69 Pulse Rate [ Left Radial] Respiratory 22 H 20 Rate Blood Pressure 137/60 131/72 Blood Pressure [Left Arm] O2 Sat by Pulse 99 Oximetry (%) Current Medications Generic Name Dose Route Start Last Admin Trade Name Freq PRN Reason Stop Dose Admin Allopurinol 100 mg 01/24/19 10:00 Zyloprim - PO DAILY [facility] Apixaban 5 mg 01/24/19 10:00 Eliquis - PO BID [facility] Aspirin 81 mg 01/24/19 10:00 Ecotrin - PO DAILY [facility] Atorvastatin Calcium 40 mg 01/24/19 22:00 Lipitor - PO HS JORJE Colchicine 0.6 mg 01/24/19 10:00 Colcrys PO DAILY [facility] Folic Acid 1 mg 01/24/19 10:00 Folic Acid - PO DAILY [facility] Sodium Chloride 1,000 mls @ 75 mls/hr 01/24/19 02:00 01/24/19 05:36 Normal Saline - IV 01/24/19 15:19 75 mls/hr ASDIR JORJE Administration Ceftriaxone Sodium 1 gm/ 50 mls @ 100 mls/hr 01/24/19 10:00 Dextrose IVPB DAILY [facility] Protocol Isosorbide Mononitrate 60 mg 01/24/19 10:00 Imdur - PO DAILY [facility] Pantoprazole Sodium 40 mg 01/24/19 10:00 Protonix - PO DAILY [facility] Ranolazine 500 mg 01/24/19 10:00 Ranexa - PO BID [facility] Tamsulosin HCl 0.8 mg 01/24/19 08:30 Flomax - PO DAILY@0830 [facility] Laboratory Results - last 24 hr 01/23/19 01/23/19 01/23/19 19:30 19:45 19:45 WBC 10.0 RBC 3.65 L Hgb 11.4 L Hct 34.1 L MCV 93.5 MCH 31.2 MCHC 33.4 RDW 16.4 H Plt Count 215 MPV 9.0 Absolute Neuts (auto) 8.2 H Neutrophils % 81.1 D Lymphocytes % 6.1 L D Monocytes % 10.7 H Eosinophils % 1.4 Basophils % 0.7 Nucleated RBC % 0 PT with INR 18.20 H INR 1.54 H PTT (Actin FS) 31.2 Sodium Potassium Chloride Carbon Dioxide Anion Gap BUN Creatinine Est GFR (CKD-EPI)AfAm Est GFR (CKD-EPI)NonAf Random Glucose Calcium Total Bilirubin AST ALT Alkaline Phosphatase Creatine Kinase Troponin I Total Protein Albumin Lipase Urine Color Dark yellow Urine Appearance Slightly cloudy Urine pH 5.5 Ur Specific [place] 1.025 Urine Protein 2+ H Urine Glucose (UA) Trace Urine Ketones 1+ H Urine Blood Negative Urine Nitrite Positive Urine Bilirubin 3+ H Urine Urobilinogen 1.0 Ur Leukocyte Esterase Trace Urine WBC (Auto) 0-3 Urine RBC (Auto) 0-3 Urine Bacteria (Auto) Few 01/23/19 01/23/19 01/24/19 19:45 19:45 07:35 WBC 6.1 RBC 3.28 L Hgb 10.2 L Hct 30.2 L MCV 91.9 MCH 31.2 MCHC 34.0 RDW 16.4 H Plt Count 201 MPV 8.9 Absolute Neuts (auto) Neutrophils % Lymphocytes % Monocytes % Eosinophils % Basophils % Nucleated RBC % PT with INR INR PTT (Actin FS) Sodium 136 Potassium 4.4 Chloride 104 Carbon Dioxide 23 Anion Gap 8 BUN 26.3 H Creatinine 1.7 H Est GFR (CKD-EPI)AfAm 43.49 Est GFR (CKD-EPI)NonAf 37.52 Random Glucose 122 H Calcium 9.1 Total Bilirubin 2.6 H D AST 180 H ALT 233 H Alkaline Phosphatase 654 H Creatine Kinase 33 Troponin I < 0.02 Total Protein 6.2 L Albumin 3.3 L Lipase 60 L Urine Color Urine Appearance Urine pH Ur Specific [place] Urine Protein Urine Glucose (UA) Urine Ketones Urine Blood Urine Nitrite Urine Bilirubin Urine Urobilinogen Ur Leukocyte Esterase Urine WBC (Auto) Urine RBC (Auto) Urine Bacteria (Auto) 01/24/19 07:35 WBC RBC Hgb Hct MCV MCH MCHC RDW Plt Count MPV Absolute Neuts (auto) Neutrophils % Lymphocytes % Monocytes % Eosinophils % Basophils % Nucleated RBC % PT with INR INR PTT (Actin FS) Sodium 137 Potassium 4.3 Chloride 107 Carbon Dioxide 24 Anion Gap 6 L BUN 19.5 H Creatinine 1.2 Est GFR (CKD-EPI)AfAm 66.26 Est GFR (CKD-EPI)NonAf 57.17 Random Glucose 103 Calcium 8.7 Total Bilirubin 2.1 H AST 95 H ALT 155 H Alkaline Phosphatase 540 H Creatine Kinase Troponin I Total Protein 5.1 L Albumin 2.7 L Lipase Urine Color Urine Appearance Urine pH Ur Specific [place] Urine Protein Urine Glucose (UA) Urine Ketones Urine Blood Urine Nitrite Urine Bilirubin Urine Urobilinogen Ur Leukocyte Esterase Urine WBC (Auto) Urine RBC (Auto) Urine Bacteria (Auto) S1 S2 RRR Lungs clear Abd-soft, NT No edema PLAN renal function improved treat UTI -->iv antibiotics ID eval cultures pending pt has appointment for EUS on Feb 04 Problem List - Problems (1) KWAME (acute kidney injury) Code(s): N17.9 - ACUTE KIDNEY FAILURE, UNSPECIFIED (2) Urinary tract infection Code(s): N39.0 - URINARY TRACT INFECTION, SITE NOT SPECIFIED Qualifiers: Urinary tract infection type: acute cystitis Hematuria presence: with hematuria Qualified Code(s): N30.01 - Acute cystitis with hematuria (3) ASHD (arteriosclerotic heart disease) Code(s): I25.10 - ATHSCL HEART DISEASE OF [place] CORONARY ARTERY W/O ANG PCTRS (4) Abnormal LFTs (liver function tests) Code(s): R94.5 - ABNORMAL RESULTS OF LIVER FUNCTION STUDIES (5) Ampulla of Vater mass Code(s): K83.8 - OTHER SPECIFIED DISEASES OF BILIARY TRACT
[2019-01-24] MEDS: TAMSULOSIN HCL 0.4 MG CAP PO SCH (10:18)
--- NOTE | 2019-01-24 11:35 | EKG ---
Test Reason : Blood Pressure : / mmHG Vent. Rate : 074 BPM Atrial Rate : 074 BPM P-R Int : 218 ms QRS Dur : 122 ms QT Int : 422 ms P-R-T Axes : 084 040 135 degrees QTc Int : 468 ms SINUS RHYTHM WITH 1ST DEGREE A-V BLOCK NON-SPECIFIC INTRA-VENTRICULAR CONDUCTION DELAY NONSPECIFIC ST ABNORMALITY ABNORMAL ECG WHEN COMPARED WITH ECG OF 12-JAN-2019 10:08, SINUS RHYTHM HAS REPLACED ATRIAL FIBRILLATION Confirmed by CARLOS LIN MD ([id number]) on 01/24/2019 11:34:36 AM Referred By: Confirmed By:CARLOS LIN MD
[2019-01-24] MEDS ORDERED: DEXTROSE 5%-WATER - 50 ML IVPB ONE (12:09)
[2019-01-24] MEDS ORDERED: cefTRIAXone SODIUM 1 GM VIAL ONE (12:09)
[2019-01-24] MEDS: APIXABAN 5 MG TABLET PO SCH ×2 (12:18→21:04)
[2019-01-24] MEDS: ISOSORBIDE MONONITRATE 60 MG TAB.SR.24H (FP) PO SCH (12:18)
[2019-01-24] MEDS: PANTOPRAZOLE 40 MG TABLET (FP) PO SCH (12:18)
[2019-01-24] MEDS: COLCHICINE 0.6 MG CAP PO SCH (12:18)
[2019-01-24] MEDS: CEFTRIAXONE 1 GM in DEXTROSE 5%-WATER - 50 ML IVPB SCH (12:18)
[2019-01-24] MEDS: RANOLAZINE E.R. 500 MG TABLET (FP) PO SCH ×2 (12:19→21:04)
[2019-01-24] MEDS: FOLIC ACID 1 MG TABLET (FP) PO SCH (12:19)
[2019-01-24] MEDS: ALLOPURINOL 100 MG TABLET (FP) PO SCH (12:19)
[2019-01-24] MEDS: ASPIRIN COATED 81 MG TABLET.EC PO SCH (12:19)
[2019-01-24] MEDS ORDERED: traMADol HCL 50 MG TABLET ONE (18:48)
[2019-01-24] MEDS ORDERED: traMADol HCL 50 MG TABLET PO PRN (18:56)
[2019-01-24] MEDS: ATORVASTATIN CA 40 MG TABLET (FP) PO SCH (21:04)
[2019-01-25 07:47] LABS: HEMATOCRIT 30.4 % (35.4-49); HEMOGLOBIN 10.4 GM/dL (11.7-16.9); MCH 31.3 pg (25.7-33.7); MCHC 34.1 g/dl (32.0-35.9); MEAN CELL VOLUME 91.7 fl (80-96); MEAN PLT VOLUME 9.6 fl (7.5-11.1); PLATELET COUNT 180 K/MM3 (134-434); RBC 3.31 M/mm3 (4.00-5.60); RDW 16.2 % (11.9-15.9); WHITE BLOOD COUNT 5.3 K/mm3 (4.0-10.0)
[2019-01-25 08:05] LABS: BLOOD UREA NITROGEN 14.8 mg/dL (7-18); CALCIUM 8.3 mg/dL (8.5-10.1); POTASSIUM 4.2 mmol/L (3.5-5.1)
[2019-01-25] MEDS ORDERED: DEXTROSE 5%-WATER - 50 ML IVPB ONE (09:36)
[2019-01-25] MEDS ORDERED: cefTRIAXone SODIUM 1 GM VIAL ONE (09:36)
[2019-01-25] MEDS: TAMSULOSIN HCL 0.4 MG CAP PO SCH (09:38)
[2019-01-25] MEDS: CEFTRIAXONE 1 GM in DEXTROSE 5%-WATER - 50 ML IVPB SCH (09:38)
[2019-01-25] MEDS: APIXABAN 5 MG TABLET PO SCH ×2 (09:39→22:31)
[2019-01-25] MEDS: ASPIRIN COATED 81 MG TABLET.EC PO SCH (09:39)
[2019-01-25] MEDS: PANTOPRAZOLE 40 MG TABLET (FP) PO SCH (09:39)
[2019-01-25] MEDS: RANOLAZINE E.R. 500 MG TABLET (FP) PO SCH ×2 (09:39→22:31)
[2019-01-25] MEDS: COLCHICINE 0.6 MG CAP PO SCH (09:39)
[2019-01-25] MEDS: FOLIC ACID 1 MG TABLET (FP) PO SCH (09:39)
[2019-01-25] MEDS: ISOSORBIDE MONONITRATE 60 MG TAB.SR.24H (FP) PO SCH (09:39)
[2019-01-25] MEDS: ALLOPURINOL 100 MG TABLET (FP) PO SCH (09:40)
--- NOTE | 2019-01-25 11:20 | PN ---
Progress Note, Physician History of Present Illness: stable no new issues - Current Medication List Current Medications: Active Medications Allopurinol (Zyloprim -) 100 mg PO DAILY [facility] Last Admin: 01/25/19 09:40 Dose: 100 mg Apixaban (Eliquis -) 5 mg PO BID [facility] Last Admin: 01/25/19 09:39 Dose: 5 mg Aspirin (Ecotrin -) 81 mg PO DAILY [facility] Last Admin: 01/25/19 09:39 Dose: 81 mg Atorvastatin Calcium (Lipitor -) 40 mg PO HS [facility] Last Admin: 01/24/19 21:04 Dose: 40 mg Colchicine (Colcrys) 0.6 mg PO DAILY [facility] Last Admin: 01/25/19 09:39 Dose: 0.6 mg Folic Acid (Folic Acid -) 1 mg PO DAILY [facility] Last Admin: 01/25/19 09:39 Dose: 1 mg Ceftriaxone Sodium 1 gm/ (Dextrose) 50 mls @ 100 mls/hr IVPB DAILY [facility]; Protocol Last Admin: 01/25/19 09:38 Dose: 100 mls/hr Sodium Chloride (Normal Saline -) 1,000 mls @ 60 mls/hr IV ASDIR [facility] Last Admin: 01/24/19 12:00 Dose: 60 mls/hr Isosorbide Mononitrate (Imdur -) 60 mg PO DAILY [facility] Last Admin: 01/25/19 09:39 Dose: 60 mg Pantoprazole Sodium (Protonix -) 40 mg PO DAILY [facility] Last Admin: 01/25/19 09:39 Dose: 40 mg Ranolazine (Ranexa -) 500 mg PO BID [facility] Last Admin: 01/25/19 09:39 Dose: 500 mg Tamsulosin HCl (Flomax -) 0.8 mg PO DAILY@0830 [facility] Last Admin: 01/25/19 09:38 Dose: 0.8 mg Tramadol HCl (Ultram -) 50 mg PO DAILY PRN PRN Reason: ARTHRITIC PAIN Last Admin: 01/24/19 19:17 Dose: 50 mg - Objective Vital Signs: Vital Signs Temperature 97.1 F L 01/25/19 09:48 Pulse Rate 90 01/25/19 09:48 Respiratory Rate 18 01/25/19 09:48 Blood Pressure 108/66 01/25/19 09:48 O2 Sat by Pulse Oximetry (%) 99 01/24/19 09:00 Constitutional: Yes: No Distress, Calm Cardiovascular: Yes: S1, S2 Respiratory: Yes: Regular, CTA Bilaterally Gastrointestinal: Yes: Normal Bowel Sounds, Soft Musculoskeletal: Yes: WNL Extremities: Yes: WNL Neurological: Yes: Alert, Oriented Psychiatric: Yes: Alert, Oriented Labs: CBC, BMP 01/25/19 07:02 01/25/19 07:02 INR, PTT INR 1.54 (0.83-1.09) H 01/23/19 19:45 Assessment/Plan 79 year old male with a history of frequent UTIs and urinary retention, hiatal hernia, CAD s/p CABG, Afib on eliquis, prostate CA in 2009 presented from urgent care for 2 days of reported hematuria and admitted for acute kidney injury Problem List - Problems (1) KWAME (acute kidney injury) Code(s): N17.9 - ACUTE KIDNEY FAILURE, UNSPECIFIED (2) Urinary tract infection Code(s): N39.0 - URINARY TRACT INFECTION, SITE NOT SPECIFIED Qualifiers: Urinary tract infection type: acute cystitis Hematuria presence: with hematuria Qualified Code(s): N30.01 - Acute cystitis with hematuria (3) ASHD (arteriosclerotic heart disease) Code(s): I25.10 - ATHSCL HEART DISEASE OF [place] CORONARY ARTERY W/O ANG PCTRS (4) Abnormal LFTs (liver function tests) Code(s): R94.5 - ABNORMAL RESULTS OF LIVER FUNCTION STUDIES (5) Ampulla of Vater mass Code(s): K83.8 - OTHER SPECIFIED DISEASES OF BILIARY TRACT plan continue current mgmt rest as per the team
--- NOTE | 2019-01-25 13:05 | PN ---
Progress Note (short form) - Note Progress Note: Pt seen/examined chart reviewed awake/ comfortable feels much better afebrile Vital Signs Temp 97.1 F L 01/25/19 09:48 Pulse 90 01/25/19 09:48 Resp 18 01/25/19 09:48 BP 108/66 01/25/19 09:48 Pulse Ox 99 01/24/19 09:00 Intake & Output 01/24/19 01/25/19 01/25/19 23:59 11:59 23:59 Intake Total 1100 300 Output Total 1270 200 500 Balance -170 100 -500 Intake: IV 600 300 Normal Saline - 1,000 ml 600 @ 150 mls/hr IV ASDIR JORJE Rx#:[id number] Normal Saline - 1,000 ml 300 @ 60 mls/hr IV ASDIR JORJE Rx#:[id number] IVPB 100 Oral 400 Output: Urine 1270 200 500 Void 1270 200 500 Other: Voiding Method Urinal Urinal Bowel Movement No Active Medications Allopurinol (Zyloprim -) 100 mg PO DAILY [facility] Last Admin: 01/25/19 09:40 Dose: 100 mg Apixaban (Eliquis -) 5 mg PO BID JORJE Last Admin: 01/25/19 09:39 Dose: 5 mg Aspirin (Ecotrin -) 81 mg PO DAILY [facility] Last Admin: 01/25/19 09:39 Dose: 81 mg Atorvastatin Calcium (Lipitor -) 40 mg PO HS [facility] Last Admin: 01/24/19 21:04 Dose: 40 mg Colchicine (Colcrys) 0.6 mg PO DAILY [facility] Last Admin: 01/25/19 09:39 Dose: 0.6 mg Folic Acid (Folic Acid -) 1 mg PO DAILY [facility] Last Admin: 01/25/19 09:39 Dose: 1 mg Ceftriaxone Sodium 1 gm/ (Dextrose) 50 mls @ 100 mls/hr IVPB DAILY [facility]; Protocol Last Admin: 01/25/19 09:38 Dose: 100 mls/hr Sodium Chloride (Normal Saline -) 1,000 mls @ 60 mls/hr IV ASDIR JORJE Last Admin: 01/24/19 12:00 Dose: 60 mls/hr Isosorbide Mononitrate (Imdur -) 60 mg PO DAILY [facility] Last Admin: 01/25/19 09:39 Dose: 60 mg Pantoprazole Sodium (Protonix -) 40 mg PO DAILY [facility] Last Admin: 01/25/19 09:39 Dose: 40 mg Ranolazine (Ranexa -) 500 mg PO BID [facility] Last Admin: 01/25/19 09:39 Dose: 500 mg Tamsulosin HCl (Flomax -) 0.8 mg PO DAILY@0830 [facility] Last Admin: 01/25/19 09:38 Dose: 0.8 mg Tramadol HCl (Ultram -) 50 mg PO DAILY PRN PRN Reason: ARTHRITIC PAIN Last Admin: 01/24/19 19:17 Dose: 50 mg CBC, BMP 01/25/19 07:02 01/25/19 07:02 Microbiology 01/23/19 19:30 Urine Culture - Final Urine - Urine Clean Catch NO GROWTH OBTAINED 01/23/19 19:45 Blood Culture - Preliminary Blood - Peripheral Venous NO GROWTH OBTAINED AFTER 24 HOURS, INCUBATION TO CONTINUE FOR 4 DAYS. 01/23/19 19:45 Blood Culture - Preliminary Blood - Peripheral Venous NO GROWTH OBTAINED AFTER 24 HOURS, INCUBATION TO CONTINUE FOR 4 DAYS. Physical Exam Awake/ comfortable. S1 S2 RRR Lungs clear Abd-soft, NT No edema. PLAN renal function improved treat UTI -->iv antibiotics-- cultures -ve Continue abx per i/d Monitor today If stable- consider d/c in am pt has appointment for EUS on Feb 04 Problem List - Problems (1) KWAME (acute kidney injury) Code(s): N17.9 - ACUTE KIDNEY FAILURE, UNSPECIFIED (2) Urinary tract infection Code(s): N39.0 - URINARY TRACT INFECTION, SITE NOT SPECIFIED Qualifiers: Urinary tract infection type: acute cystitis Hematuria presence: with hematuria Qualified Code(s): N30.01 - Acute cystitis with hematuria (3) ASHD (arteriosclerotic heart disease) Code(s): I25.10 - ATHSCL HEART DISEASE OF [place] CORONARY ARTERY W/O ANG PCTRS (4) Abnormal LFTs (liver function tests) Code(s): R94.5 - ABNORMAL RESULTS OF LIVER FUNCTION STUDIES (5) Ampulla of Vater mass Code(s): K83.8 - OTHER SPECIFIED DISEASES OF BILIARY TRACT
[2019-01-25] MEDS: POLYETHYLENE GLYCOL 3350 119 GM BTL PO SCH (18:44)
[2019-01-25] MEDS: ATORVASTATIN CA 40 MG TABLET (FP) PO SCH (22:31)
[2019-01-26] MEDS ORDERED: cefTRIAXone SODIUM 1 GM VIAL ONE (09:06)
[2019-01-26] MEDS ORDERED: DEXTROSE 5%-WATER - 50 ML IVPB ONE (09:07)
[2019-01-26] MEDS: FOLIC ACID 1 MG TABLET (FP) PO SCH (09:21)
[2019-01-26] MEDS: ALLOPURINOL 100 MG TABLET (FP) PO SCH (09:21)
[2019-01-26] MEDS: TAMSULOSIN HCL 0.4 MG CAP PO SCH (09:21)
[2019-01-26] MEDS: RANOLAZINE E.R. 500 MG TABLET (FP) PO SCH (09:22)
[2019-01-26] MEDS: COLCHICINE 0.6 MG CAP PO SCH (09:22)
[2019-01-26] MEDS: ASPIRIN COATED 81 MG TABLET.EC PO SCH (09:22)
[2019-01-26] MEDS: PANTOPRAZOLE 40 MG TABLET (FP) PO SCH (09:22)
[2019-01-26] MEDS: CEFTRIAXONE 1 GM in DEXTROSE 5%-WATER - 50 ML IVPB SCH (09:22)
[2019-01-26] MEDS: APIXABAN 5 MG TABLET PO SCH (09:22)
[2019-01-26] MEDS: ISOSORBIDE MONONITRATE 60 MG TAB.SR.24H (FP) PO SCH (09:22)
[2019-01-26 10:33] VITALS: BP 127/76; PULSE 78; TEMP 98.7
[2019-01-26] MEDS: POLYETHYLENE GLYCOL 3350 119 GM BTL PO SCH (10:34)
--- NOTE | 2019-01-26 12:16 | PN ---
Progress Note, Physician History of Present Illness: patient c/o of constipation no other issues - Current Medication List Current Medications: Active Medications Allopurinol (Zyloprim -) 100 mg PO DAILY [facility] Last Admin: 01/26/19 09:21 Dose: 100 mg Apixaban (Eliquis -) 5 mg PO BID [facility] Last Admin: 01/26/19 09:22 Dose: 5 mg Aspirin (Ecotrin -) 81 mg PO DAILY [facility] Last Admin: 01/26/19 09:22 Dose: 81 mg Atorvastatin Calcium (Lipitor -) 40 mg PO HS [facility] Last Admin: 01/25/19 22:31 Dose: 40 mg Colchicine (Colcrys) 0.6 mg PO DAILY [facility] Last Admin: 01/26/19 09:22 Dose: 0.6 mg Folic Acid (Folic Acid -) 1 mg PO DAILY [facility] Last Admin: 01/26/19 09:21 Dose: 1 mg Isosorbide Mononitrate (Imdur -) 60 mg PO DAILY [facility] Last Admin: 01/26/19 09:22 Dose: 60 mg Pantoprazole Sodium (Protonix -) 40 mg PO DAILY [facility] Last Admin: 01/26/19 09:22 Dose: 40 mg Polyethylene Glycol (Miralax (For Daily Use) -) 17 gm PO DAILY [facility] Last Admin: 01/26/19 10:34 Dose: 17 gm Ranolazine (Ranexa -) 500 mg PO BID [facility] Last Admin: 01/26/19 09:22 Dose: 500 mg Tamsulosin HCl (Flomax -) 0.8 mg PO DAILY@0830 [facility] Last Admin: 01/26/19 09:21 Dose: 0.8 mg Tramadol HCl (Ultram -) 50 mg PO DAILY PRN PRN Reason: ARTHRITIC PAIN Last Admin: 01/24/19 19:17 Dose: 50 mg - Objective Vital Signs: Vital Signs Temperature 98.7 F 01/26/19 10:00 Pulse Rate 78 01/26/19 10:00 Respiratory Rate 20 01/26/19 10:00 Blood Pressure 127/76 01/26/19 10:00 O2 Sat by Pulse Oximetry (%) 96 01/26/19 09:00 Constitutional: Yes: Calm, Mild Distress Cardiovascular: Yes: S1, S2 Respiratory: Yes: Regular, CTA Bilaterally Gastrointestinal: Yes: Normal Bowel Sounds, Soft Musculoskeletal: Yes: WNL Extremities: Yes: WNL Neurological: Yes: Alert, Oriented Psychiatric: Yes: Alert, Oriented Labs: CBC, BMP 01/25/19 07:02 01/25/19 07:02 INR, PTT INR 1.54 (0.83-1.09) H 01/23/19 19:45 Assessment/Plan 79 year old male with a history of frequent UTIs and urinary retention, hiatal hernia, CAD s/p CABG, Afib on eliquis, prostate CA in 2009 presented from urgent care for 2 days of reported hematuria and admitted for acute kidney injury Problem List - Problems (1) KWAME (acute kidney injury) Code(s): N17.9 - ACUTE KIDNEY FAILURE, UNSPECIFIED (2) Urinary tract infection Code(s): N39.0 - URINARY TRACT INFECTION, SITE NOT SPECIFIED Qualifiers: Urinary tract infection type: acute cystitis Hematuria presence: with hematuria Qualified Code(s): N30.01 - Acute cystitis with hematuria (3) ASHD (arteriosclerotic heart disease) Code(s): I25.10 - ATHSCL HEART DISEASE OF [place] CORONARY ARTERY W/O ANG PCTRS (4) Abnormal LFTs (liver function tests) Code(s): R94.5 - ABNORMAL RESULTS OF LIVER FUNCTION STUDIES (5) Ampulla of Vater mass Code(s): K83.8 - OTHER SPECIFIED DISEASES OF BILIARY TRACT plan continue current mgmt rest as per the team will stop abx rest as per the team
--- NOTE | 2019-01-26 13:42 | DS ---
Physical Examination Vital Signs: Vital Signs Temperature 98.7 F 01/26/19 10:00 Pulse Rate 78 01/26/19 10:00 Respiratory Rate 20 01/26/19 10:00 Blood Pressure 127/76 01/26/19 10:00 O2 Sat by Pulse Oximetry (%) 96 01/26/19 09:00 Constitutional: Yes: No Distress, Calm Cardiovascular: Yes: Regular Rate and Rhythm Respiratory: Yes: CTA Bilaterally Gastrointestinal: Yes: Normal Bowel Sounds, Soft. No: Tenderness Edema: No Labs: CBC, BMP 01/25/19 07:02 01/25/19 07:02 Discharge Summary Problems reviewed: Yes Reason For Visit: URINARY TRACT INFECTION. HEMATURIA Current Active Problems KWAME (acute kidney injury) (Acute) Nausea and vomiting (Acute) Urinary tract infection (Acute) Hospital Course: HISTORY OF PRESENT ILLNESS: 79 year old male with a history of frequent UTIs and urinary retention, hiatal hernia, CAD s/p CABG, Afib on eliquis, prostate CA in 2009 presented from urgent care for 2 days of reported hematuria. Patient states that his noticed him having red-colored urine 2 days prior and told him to go get checked out. Reports one episode of non-bloody non-bilious vomiting yesterday. Reports urinary frequency. Denies dysuria, fevers, chills, nausea, vomiting, diarrhea. Patient recently had an EGD with Dr. Ruvalcaba that revealed a large ampulla suggesting a neoplastic process. Patient was instructed to follow with Dr. Amol Story at [facility] to schedule an endoscopic ultrasound/biopsy or ampullectomy as an outpatient. Patient had not yet had a chance to go to see Dr. Story. He is currently asymptomatic, and per nurse, urine is not red. ER course was notable for: (1) KWAME Cre 1.7 (2) Transaminitis (3) Hyperbilirubinemia \ Hospital course-- Pt was on gentle iv hydration Renal function better IV fluids dc Also on IV antibiotics for UTI-- seen by ID-- all cultures negative IV antibiotics dc today Pt has no further episodes of Hematuria-- Eliquis and ASA was continued during this stay Stable for dc home has EUS pending on Feb 04 Condition: Stable - Instructions Disposition: HOME - Home Medications Comprehensive Discharge Medication List: Ambulatory Orders Folic Acid 1 mg PO DAILY 11/04/16 Tamsulosin HCl [Flomax] 0.8 mg PO DAILY 11/07/17 Omeprazole 40 mg PO DAILY 01/01/18 Allopurinol [Zyloprim -] 100 mg PO DAILY 09/04/18 Lisinopril [Zestril] 5 mg PO DAILY 09/04/18 Tramadol HCl 50 mg PO DAILY PRN 09/04/18 Colchicine 0.6 mg PO DAILY 10/12/18 Isosorbide Mononitrate [Isosorbide Mononitrate ER] 60 mg PO DAILY 10/12/18 Apixaban [Eliquis] 5 mg PO BID 01/11/19 Aspirin [Ecotrin] 81 mg PO DAILY 01/11/19 Atorvastatin Calcium 40 mg PO DAILY 01/11/19 Ranolazine [Ranexa] 500 mg PO BID 01/11/19
== END 2019-01-26 14:46 | disposition home or self-care (01) | DRG 683 ==
LOC: JER 18:41 → JERBED 20:55 → J5S 22:36
PROVIDERS: ADMIT Internal Medicine; ATTEND Internal Medicine
DX: N17.9 Acute kidney failure, unspecified (principal); N39.0 Urinary tract infection, site not specified; I10 Essential (primary) hypertension; E78.5 Hyperlipidemia, unspecified; I25.10 Atherosclerotic heart disease of native coronary artery without angina pectoris; I48.91 Unspecified atrial fibrillation; K44.9 Diaphragmatic hernia without obstruction or gangrene; I44.0 Atrioventricular block, first degree; R11.2 Nausea with vomiting, unspecified; K29.70 Gastritis, unspecified, without bleeding; E80.6 Other disorders of bilirubin metabolism; R31.9 Hematuria, unspecified; I11.0 Hypertensive heart disease with heart failure; D64.9 Anemia, unspecified; K21.9 Gastro-esophageal reflux disease without esophagitis; I73.9 Peripheral vascular disease, unspecified; N40.0 Benign prostatic hyperplasia without lower urinary tract symptoms; M54.5 Low back pain; M10.9 Gout, unspecified; R94.5 Abnormal results of liver function studies; K83.8 Other specified diseases of biliary tract; Z85.46 Personal history of malignant neoplasm of prostate; Z95.1 Presence of aortocoronary bypass graft; Z95.5 Presence of coronary angioplasty implant and graft
CPT/HCPCS: 36415; 76775-TC; 80048; 80053; 81003; 82436; 82550; 82565; 83690; 84133; 84300; 84484; 85025; 85027; 85610; 85730; 87040; 87086; 93005; 93010; 97116-GP; 97161-GP; 99283-25; J7030

== ENCOUNTER 2019-04-09 11:39 | Emergency (ER) | payer OTHER, MEDICARE ==
[2019-04-09 11:47] VITALS: BMI 26.6
--- NOTE | 2019-04-09 12:18 | PDOC ---
History of Present Illness - General Chief Complaint: Nausea/Vomiting Stated Complaint: CHEST PAIN Time Seen by Provider: 04/09/19 12:14 Past History - Past Medical History Allergies/Adverse Reactions: Allergies Allergy/AdvReac Type Severity Reaction Status Date / Time strawberry Allergy Severe Swelling Verified 04/09/19 11:47 pepper (genus Capsicum) Allergy Unknown Verified 04/09/19 11:47 black pepper Allergy Verified 04/09/19 11:47 iohexol [From Omnipaque] Allergy Rash Verified 04/09/19 11:47 Iodinated Contrast Media AdvReac Rash Verified 04/09/19 11:47 red pepper Allergy Uncoded 04/09/19 11:47 Home Medications: Ambulatory Orders Folic Acid 1 mg PO DAILY 11/04/16 Tamsulosin HCl [Flomax] 0.8 mg PO DAILY 11/07/17 Allopurinol [Zyloprim -] 100 mg PO DAILY 09/04/18 Lisinopril [Zestril] 5 mg PO DAILY 09/04/18 Tramadol HCl 50 mg PO DAILY PRN 09/04/18 Isosorbide Mononitrate [Isosorbide Mononitrate ER] 60 mg PO DAILY 10/12/18 Apixaban [Eliquis] 5 mg PO BID 01/11/19 Aspirin [Ecotrin] 81 mg PO DAILY 01/11/19 Atorvastatin Calcium 40 mg PO DAILY 01/11/19 Ranolazine [Ranexa] 500 mg PO BID 01/11/19 Hydroxyzine HCl 2 tab PO HS 04/09/19 Melatonin 10 mg PO HS 04/09/19 Pantoprazole Sodium 40 mg PO BID 04/09/19 Polyethylene Glycol 3350 1 pkt PO DAILY PRN 04/09/19 Psyllium Seed [Hydrocil Instant] 1 packet PO DAILY 04/09/19 Sennosides [Senna] 2 tab PO DAILY 04/09/19 Anemia: Yes Asthma: No Cancer: Yes (PROSTATE CANCER 2011) Cardiac Disorders: Yes (coronary artery disease, cardiac bypass 10 years ago, Afib) CVA: No COPD: No CHF: Yes Dementia: No Diabetes: No GI Disorders: (hiatal hernia) Disorders: Yes (STONES, chronic UTIs) HTN: Yes Hypercholesterolemia: Yes Kidney Stones: Yes Liver Disease: No Seizures: No Thyroid Disease: No - Surgical History Abdominal Surgery: No Appendectomy: No Cardiac Surgery: Yes (open heart, 2 stents) Cholecystectomy: No Lung Surgery: No Neurologic Surgery: No Orthopedic Surgery: No - Immunization History Immunization Up to Date: Yes - Psycho Social/Smoking Cessation Hx Smoking Status: Yes Smoking History: Former smoker Have you smoked in the past 12 months: No Number of Cigarettes Smoked Daily: 0 If you are a former smoker, when did you quit?: 2002 Information on smoking cessation initiated: No 'Breaking Loose' booklet given: 11/10/17 Hx Alcohol Use: No Drug/Substance Use Hx: No Substance Use Type: None Hx Substance Use Treatment: No *Physical Exam - Vital Signs Last Vital Signs Temp Pulse Resp BP Pulse Ox 97.8 F 78 18 107/65 100 04/09/19 11:45 04/09/19 11:45 04/09/19 11:45 04/09/19 11:45 04/09/19 11:45 ED Treatment Course - LABORATORY CBC & Chemistry Diagram: 04/09/19 12:20 04/09/19 12:20 Medical Decision Making - Medical Decision Making 04/09/19 13:13 HPI: 79yo M hx UTIs/urinary retention (last admission for KWAME), hiatal hernia (with possible neoplasm), HTN, HLD, CAD (s/p CABG, multiple stents, last cath and echo and stress test 09/2018), Afib (on Eliquis and baby aspirin), prostate CA (s /p seeding, last chemo 2009), smoking, recent Whipple 1mo ago with removal of unknown CA (by Dr Ewing at [facility]; scheduled to see onc next month) presents from [facility]) c/o 10 days of chest pain and 1 night of N/V. Chest pain x10 days, gradual onset, L-sided just inferior to breast, nonradiating, pressure/dull type, constant but goes away at night, wakes up with it, worse at 0500 every morning, helped by tramadol, nonexertional , similar to prior chest pains due to MIs. Also c/o increased burping x10 days so doesn't know if related. Sudden onset nausea and NBNB emesis x5 of yellow liquid since last PM, similar sx in past but doesn't know cause. LBM today, normal, x2. Also c/o hard of hearing since surgery 1mo ago, chronic dysuria unchanged ecently, and green/blue/[place] colour of stool since surgery 1mo ago. Denies fever, chills, fatigue, headache, dizziness, numbness/tingling, weakness , vision changes, shortness of breath, cough, palpitations, leg swelling, abdominal pain, blood in stool, diarrhea, constipation, hematuria, confusion, calf tenderness, hx PE/DVT, hormone use, recent travel, sick contacts, recent antibiotic use. PCP - [facility] - [place], Lisette Mata ROS: Constitutional: Negative for chills, fever, fatigue, diaphoresis. HENT: Positive for hard of hearing. Negative for sore throat, rhinorrhea, congestion. Eyes: Negative for visual disturbance. Respiratory: Negative for shortness of breath, cough, and wheezing. Cardiovascular: Positive for chest pain. Negative for palpitations, and leg swelling. Gastrointestinal: Positive for nausea, vomiting, blue/green stool, increased gas. Negative for abdominal pain, blood in stool, constipation, diarrhea. Genitourinary: Positive for dysuria. Negative for flank pain, and hematuria. Musculoskeletal: Negative for myalgias, back pain, and neck pain. Skin: Negative for rash. Neurological: Negative for light-headedness, dizziness, vertigo, syncope, weakness, numbness and headaches. Psychiatric/Behavioral: Negative for behavioral problems and confusion. PE: Gen: Alert, NAD, comfortable-appearing. HEENT: PERRL, EOMI, MMM, NCAT. No conjunctival pallor. Sclera are non-icteric. CV: Regular rate and irregular rhythm. No murmurs, rubs, or gallops. PULM: No resp distress. CTAB, no wheezes, rales, or rhonchi. ABD: soft, NT/ND, no rebound tenderness or guarding, no CVA tenderness. BACK: No TTP of c/t/l-spine. No step-offs or deformities. MSK: No bony deformities. 2+ pulses in all extremities. NEURO: AAOx3. PERRL. No gross CN deficits. Strength and sensation grossly intact throughout. EXTREMITIES: No cyanosis. No clubbing. No edema. No calf tenderness. PSYCH: Normal mood and thought pattern. SKIN: Small scab on central abdomen, multiple well-healed surgical scars on chest and abdomen. Warm and dry. Normal capillary refill. No rashes. No jaundice. MDM: 79yo M hx UTIs/urinary retention (last admission for KWAME), hiatal hernia (with possible neoplasm), HTN, HLD, CAD (s/p CABG, multiple stents, last cath and echo and stress test 09/2018), Afib (on Eliquis and baby aspirin), prostate CA (s /p seeding, last chemo 2009), smoking, recent Whipple 1mo ago with removal of unknown CA (scheduled to see onc next month) presents from [facility] with 10 days of chest pain and 1 night of N/V. Hemodynamically stable, afebrile, benign abdomen exam. Ddx: ACS/RI, arrhythmia, GERD, pancreatitis, malignancy, PNA, hiatal hernia, High concern for ACS/RI due to RFs and consistency with prior MIs, HEART score 5 - eval for ACS/RI with tropx2 and admission for ACS r/o. Low concern for pulmonary etiology due to non pleuritic nature of CP, lack of cough or SOB, and lungs CTAB, but r/o PNA, COPD exacerbation, and PTX with CXR and labs. Very low concern for PE due to pt on eliquis and lack of SOB/tachycardia/hx DVT or PE - no further testing indicated at this time. Lack of tearing nature of chest pain , lack of back pain, lack of hemodynamic instability, and pulses equal bilaterally, dissection of very low concern - no further testing indicated. Also consider infectious etiologies, anemia, metabolic derangements, or MSK. Due to extensive abdominal surgeries, malignancy, and recent Whipple, also consider GI etiologies of pain and N/V and increased gas including known hiatal hernia, SBO, GERD, malignancy, pancreatitis, UTI, or GI infection. -CBC,CMP,Coags,Mg,Phos,Lipase,Cardiac profile -EKG -CXR -IVF, Zofran, Tylenol -CT w/oral contrast (allergy to IV contrast - rash per pt) -Dispo: admit pending w/u for ACS r/o 04/09/19 15:13 Oral contrast started at 1310. Pt began vomiting - reglan given, N/V resolved. Pt feels better right now, no current complaints. Labs reviewed: no concerning findings, trop neg at 1220. Pending 2nd trop and UA. CXR reviewed: no acute pathology EKG reviewed: sinus rhythm with marked sinus arrhythmia, 73bpm, low voltage QRS , QTc 478ms, no e/o acute ischemia Pt ready for CT. 04/09/19 15:43 UA negative for UTI. Pending 2nd trop and CT. 04/09/19 16:32 2nd trop neg. 04/09/19 18:55 CTAP: partial mid to distal small bowel obstruction noted. s/p interval Whipple' s surgery in comparison to MRI 01/13/19. Small amount free fluid along liver laterally and within R paracolic space. s/p prostate brachytherapy as on prior exam. 04/09/19 19:13 Discussed results with pt and . Called Dr Bethanie Leon (surgeon who performed Whipple at [facility]) at [phone]. Answering service paged Dr Leon. Pending call-back. 04/09/19 19:21 Received call from consulting services manager [facility] surgeon Dr. Guerrero - discussed pt, he will have Dr Leon call me now for further discussion. 04/09/19 19:[address] Leon - accepted transfer, recommended NG tube, IVF, and NPO. 04/09/19 20:15 NG tubed placed - bright yellow liquid returned, placed on low suction. XR ordered to confirm placement. Spoke with transfer center, given room/bed. Discharge - Discharge Information Problems reviewed: Yes Clinical Impression/Diagnosis: SBO (small bowel obstruction) Condition: Fair Disposition: TRANSFER ACUTE CARE/OTHER HOSP - Admission No - Follow up/Referral - Patient Discharge Instructions - Post Discharge Activity - Transfer to Acute Care Facility Receiving Facility Name: [facility]
[2019-04-09 12:38] LABS: BASO % 0.9 % (0-2.0); EOS % 0.8 % (0-4.5); HEMATOCRIT 30.2 % (35.4-49); HEMOGLOBIN 10.1 GM/dL (11.7-16.9); LYMPH % 16.1 % (8-40); MCH 31.2 pg (25.7-33.7); MCHC 33.3 g/dl (32.0-35.9); MEAN CELL VOLUME 93.4 fl (80-96); MEAN PLT VOLUME 7.7 fl (7.5-11.1); NEUT % 71.2 % (42.8-82.8); PLATELET COUNT 341 K/MM3 (134-434); RBC 3.24 M/mm3 (4.00-5.60); RDW 18.2 % (11.9-15.9); WHITE BLOOD COUNT 8.4 K/mm3 (4.0-10.0)
[2019-04-09] MEDS ORDERED: SODIUM CHLORIDE 0.9% 1000 ML INFUS.BAG IV ONE (12:50)
[2019-04-09] MEDS ORDERED: SODIUM CHLORIDE 0.9% 500 ML INFUS.BAG IV ONE ×2 (12:50→19:36)
[2019-04-09] MEDS ORDERED: ONDANSETRON 4 MG/2 ML VIAL IVPUSH ONE (12:50)
[2019-04-09] MEDS ORDERED: ACETAMINOPHEN 1000 MG/100 ML VIAL (NON FORMULARY) IVPB ONE (12:50)
[2019-04-09 12:52] LABS: INR 1.34 (0.83-1.09); PROTHROMBIN TIME (PATIENT) 15.8 SEC (9.7-13.0)
[2019-04-09 12:55] LABS: ACTIVATED PTT 38.7 SECONDS (25.2-36.5)
[2019-04-09] MEDS ORDERED: ONDANSETRON 4 MG/2 ML VIAL ONE (13:12)
[2019-04-09] MEDS ORDERED: ACETAMINOPHEN INJECTION 100 ML IVPB ONE (13:12)
[2019-04-09 13:14] LABS: ALBUMIN 2.7 g/dl (3.4-5.0); BILIRUBIN,TOTAL 0.9 mg/dL (0.2-1); BLOOD UREA NITROGEN 16.9 mg/dL (7-18); CALCIUM 9.2 mg/dL (8.5-10.1); POTASSIUM 4.9 mmol/L (3.5-5.1); TOT PROT 6.2 g/dl (6.4-8.2)
[2019-04-09 13:45] LABS: MAGNESIUM 2.3 mg/dL (1.8-2.4); PHOSPHOROUS 2.3 mg/dL (2.5-4.9)
[2019-04-09] MEDS ORDERED: METOCLOPRAMIDE HCL INJECTION 10 MG/2 ML VIAL IVPB ONE (14:06)
[2019-04-09] MEDS ORDERED: METOCLOPRAMIDE HCL INJECTION 10 MG/2 ML VIAL ONE (14:49)
[2019-04-09 15:30] LABS: EPI CELLS 1.5 /HPF (0-5/HPF); HYALINE CASTS 2 /lpf (0-8); PH,URINE >= 9.0 (5.0-8.0); URINE APPEARANCE CLEAR; URINE BACTERIA 1.7 /hpf (NEGATIVE); URINE BILIRUBIN NEGATIVE (NEGATIVE); URINE COLOR DK YELLOW; URINE GLUCOSE (UA) NEGATIVE (NEGATIVE); URINE KETONE NEGATIVE (NEGATIVE); URINE LEUK ESTERASE TRACE (NEGATIVE); URINE NITRITE NEGATIVE (NEGATIVE); URINE PROTEIN TRACE (NEGATIVE); URINE RBC 2 /hpf (0-4); URINE WBC 5 /hpf (0-5)
--- NOTE | 2019-04-09 17:06 | PDOC ---
Documentation entered by Ralph Dove SCRIBE, acting as scribe for Deni Rebolledo MD. Deni Rebolledo MD: This documentation has been prepared by the Petty palmer Xhesika, SCRIBE, under my direction and personally reviewed by me in its entirety. I confirm that the documentation accurately reflects all work, treatment, procedures, and medical decision making performed by me. Attending Attestation - Resident Resident Name: Katerine Magana - ED Attending Attestation I have performed the following: I have examined & evaluated the patient, The case was reviewed & discussed with the resident, I agree w/resident's findings & plan, Exceptions are as noted - HPI HPI: 04/09/19 17:30 79yo M hx UTIs/urinary retention (last admission for KWAME), hiatal hernia (with possible neoplasm), HTN, HLD, CAD (s/p CABG, multiple stents, last cath and echo and stress test 09/2018), Afib (on Eliquis and baby aspirin), prostate CA (s /p seeding, last chemo 2009), smoking, recent Whipple 1mo ago with removal of unknown CA (by Dr Ewing at [facility]; scheduled to see onc next month) presents from [facility] c/o 10 days of chest pain and 1 night of N/V. - Physicial Exam PE: 04/09/19 17:30 Vitals: Triage Vital signs reviewed General Appearance: No acute distress, well nourished well developed, Head: Atraumatic, Cardiac: Regular rate and rhythym,, Lungs: Clear to auscultation bilateral, good air movement bilaterally, Abdomen: Soft, non distended, normal bowel sounds, non tender to palpation Extremities: Full range of motion to all extremities, no cyanosis, clubbing, or edema Skin: Warm and dry, no rashes or lesions, no rash, no petechiae Psych: Normal mood, normal affect - Medical Decision Making 04/09/19 17:32 79 years old with pancreatic cancer status post Whipple with 10 days of nonexertional chest discomfort EKG demonstrates no ST elevations no T wave inversions We will check labs abdomen pelvis CAT Dr. Stoddard to follow up labs and reasses
--- NOTE | 2019-04-09 20:19 | PDOC ---
*Physical Exam - Vital Signs Last Vital Signs Temp Pulse Resp BP Pulse Ox 97.8 F 76 17 113/75 98 04/09/19 11:45 04/09/19 20:01 04/09/19 20:01 04/09/19 20:01 04/09/19 20:01 ED Treatment Course - LABORATORY CBC & Chemistry Diagram: 04/09/19 12:20 04/09/19 12:20 - ADDITIONAL ORDERS Additional order review: Laboratory Results 04/09/19 04/09/19 04/09/19 15:30 15:00 12:20 PT with INR 15.80 H INR 1.34 H PTT (Actin FS) 38.7 H Sodium Potassium Chloride Carbon Dioxide Anion Gap BUN Creatinine Est GFR (CKD-EPI)AfAm Est GFR (CKD-EPI)NonAf Random Glucose Calcium Phosphorus Magnesium Total Bilirubin AST ALT Alkaline Phosphatase Creatine Kinase Troponin I < 0.02 Total Protein Albumin Lipase Urine Color Dk yellow Urine Appearance Clear Urine pH >= 9.0 H D Ur Specific [place] 1.020 Urine Protein Trace Urine Glucose (UA) Negative Urine Ketones Negative Urine Blood Negative Urine Nitrite Negative Urine Bilirubin Negative Urine Urobilinogen 1.0 Ur Leukocyte Esterase Trace Urine WBC (Auto) 5 Urine RBC (Auto) 2 Urine Casts (Auto) 2 U Epithel Cells (Auto) 1.5 Urine Bacteria (Auto) 1.7 04/09/19 04/09/19 12:20 12:20 PT with INR INR PTT (Actin FS) Sodium 138 Potassium 4.9 Chloride 105 Carbon Dioxide 25 Anion Gap 7 L BUN 16.9 Creatinine 1.0 Est GFR (CKD-EPI)AfAm 82.60 Est GFR (CKD-EPI)NonAf 71.27 Random Glucose 113 H Calcium 9.2 Phosphorus 2.3 L Magnesium 2.3 Total Bilirubin 0.9 AST 36 ALT 38 Alkaline Phosphatase 366 H Creatine Kinase 22 L Troponin I < 0.02 Total Protein 6.2 L Albumin 2.7 L Lipase 43 L Urine Color Urine Appearance Urine pH Ur Specific [place] Urine Protein Urine Glucose (UA) Urine Ketones Urine Blood Urine Nitrite Urine Bilirubin Urine Urobilinogen Ur Leukocyte Esterase Urine WBC (Auto) Urine RBC (Auto) Urine Casts (Auto) U Epithel Cells (Auto) Urine Bacteria (Auto) 04/09/19 12:20 RBC 3.24 L MCV 93.4 MCHC 33.3 RDW 18.2 H MPV 7.7 D Neutrophils % 71.2 Lymphocytes % 16.1 D Monocytes % 11.0 H Eosinophils % 0.8 Basophils % 0.9 - Medications Given in the ED: ED Medications Discontinued Medications Generic Name Dose Route Start Last Admin Trade Name Trae PRN Reason Stop Dose Admin Acetaminophen 1,000 mg 04/09/19 12:50 04/09/19 14:44 Ofirmev Injection - IVPB 04/09/19 12:51 1,000 mg ONCE ONE Administration Diphenhydramine HCl 25 mg 04/09/19 14:06 04/09/19 14:55 Benadryl Injection - IVPB 04/09/19 14:07 25 mg ONCE ONE Administration Metoclopramide HCl 10 mg 04/09/19 14:06 04/09/19 15:00 Reglan Injection - IVPB 04/09/19 14:07 10 mg ONCE ONE Administration Ondansetron HCl 4 mg 04/09/19 12:50 04/09/19 13:15 Zofran Injection IVPUSH 04/09/19 12:51 4 mg ONCE ONE Administration Sodium Chloride 1,000 ml 04/09/19 12:50 04/09/19 14:44 Normal Saline - IV 04/09/19 12:51 1,000 ml ONCE ONE Administration Sodium Chloride 1,000 ml 04/09/19 19:36 04/09/19 20:00 Normal Saline - IV 04/09/19 19:37 1,000 ml ONCE ONE Administration Medical Decision Making - Medical Decision Making 04/09/19 20:19 79yo M hx UTIs/urinary retention (last admission for [facility]), hiatal hernia (with possible neoplasm), HTN, HLD, CAD (s/p CABG, multiple stents, last cath and echo and stress test 09/2018), Afib (on Eliquis and baby aspirin), prostate CA (s /p seeding, last chemo 2009), smoking, recent Whipple 1mo ago with removal of unknown CA (by Dr Ewing at [facility]; scheduled to see onc next month) presents from [facility]) c/o 10 days of chest pain and 1 night of N/V. Vital Signs Temp Pulse Resp BP Pulse Ox 97.8 F 76 17 113/75 98 04/09/19 11:45 04/09/19 20:01 04/09/19 20:01 04/09/19 20:01 04/09/19 20:01 Signed out from previous attending pending work-up. Vital signs are within normal limits, afebrile Laboratory results are within normal limits, baseline anemia, coags within normal limits. Negative troponin, unlikely to be cardiac, electrolyte/ creatinine normal. CT abdomen and pelvis with mid to distal small bowel obstruction, partial nature , status post Whipple's procedure compared to previous imaging small amount of free fluid along the liver laterally and within the right paracolic space likely related to the small bowel obstruction Discussed results with pt and . Called Dr Bethanie Leon (surgeon who performed Whipple at [facility]) at . - accepted transfer, recommended NG tube, IVF, and NPO. NGT placed due to n/v, partial obstruction and decompression placed on low suctioning, CXR confirm placement awaiting bed/transfer to [facility] to surgical service. 04/09/19 20:22 Discharge - Discharge Information Problems reviewed: Yes Clinical Impression/Diagnosis: SBO (small bowel obstruction) Condition: Fair Disposition: TRANSFER ACUTE CARE/OTHER HOSP - Admission Yes - Follow up/Referral - Patient Discharge Instructions - Post Discharge Activity - Transfer to Acute Care Facility Accepting Physician:: Dr Bethanie Leon
[2019-04-09 21:21] VITALS: BP 156/85; PULSE 83; TEMP 98.1
--- NOTE | 2019-04-10 14:28 | EKG ---
Test Reason : Blood Pressure : / mmHG Vent. Rate : 073 BPM Atrial Rate : 073 BPM P-R Int : 192 ms QRS Dur : 118 ms QT Int : 434 ms P-R-T Axes : 102 032 117 degrees QTc Int : 478 ms SINUS RHYTHM WITH MARKED SINUS ARRHYTHMIA INCOMPLETE LBBB LOW VOLTAGE QRS CANNOT RULE OUT ANTERIOR INFARCT , AGE UNDETERMINED ABNORMAL ECG WHEN COMPARED WITH ECG OF 23-JAN-2019 20:43, NO SIGNIFICANT CHANGE WAS FOUND Confirmed by YAMINI WHITEHEAD MD ([id number]) on 04/10/2019 2:28:34 PM Referred By: Confirmed By:YAMINI WHITEHEAD MD
== END 2019-04-09 21:21 | disposition short-term general hospital (02) ==
LOC: JER 11:39
PROC: 0D9670Z Drainage of Stomach with Drainage Device, Via Natural or Artificial Opening (ICD-10-PCS; principal; 2019-04-09)
DX: K56.699 Other intestinal obstruction unspecified as to partial versus complete obstruction (principal); I11.0 Hypertensive heart disease with heart failure; I25.10 Atherosclerotic heart disease of native coronary artery without angina pectoris; Z95.1 Presence of aortocoronary bypass graft; Z95.5 Presence of coronary angioplasty implant and graft; I50.9 Heart failure, unspecified; I48.91 Unspecified atrial fibrillation; Z79.01 Long term (current) use of anticoagulants; Z79.82 Long term (current) use of aspirin; Z85.46 Personal history of malignant neoplasm of prostate; E78.5 Hyperlipidemia, unspecified; Z87.440 Personal history of urinary (tract) infections; Z87.442 Personal history of urinary calculi; Z91.02 Food additives allergy status; Z91.041 Radiographic dye allergy status
CPT/HCPCS: 36415; 71045-TC-FY; 74176-TC; 80053; 81003; 82550; 83690; 83735; 84100; 84484; 85025; 85610; 85730; 87086; 93005; 93010; 99285-25; J0131; J7030

== ENCOUNTER 2019-05-29 14:48 | Inpatient (IN) | payer OTHER, MEDICARE ==
[2019-05-29] MEDS ORDERED: SODIUM CHLORIDE IV ONE (15:57)
--- NOTE | 2019-05-29 16:00 | PDOC ---
History of Present Illness - General Chief Complaint: Vomiting/Diarrhea Stated Complaint: ABD PAIN/VOMITING/Diarrhea Time Seen by Provider: 05/29/19 15:59 History Source: Patient Exam Limitations: No Limitations - History of Present Illness Initial Comments: 05/29/19 16:00 Alf Waddell is a 79M with [facility] Whipple procedure (2018), CAD s/p CABG+ stenting, AFIB on Eliquis, prostate cancer s/p seeding, currently on weekly IV chemo and daily capacitabine presenting with nausea, vomiting, diarrhea, and chest pain in the setting of recent IV chemo. Patient and at bedside. Reports getting outpatient IV chemo every Friday for last 2 weeks, last chemo May.26. After every infusion, has nausea with vomiting and diarrhea every 30 minutes, poor PO intake 2/2 nausea, as well as pressure-like chest pain throughout the night, has tried nitro without success. Called oncologist at [facility] and was told to go to ED for IV fluids , and to stop taking capacitabine. Denies any abdominal pain, urinary symptoms, dizziness, PINTO, vision changes. Has had poor hearing in left ear after Whipple in 02/2019 but denies any tinnitus or other hearing changes. Feels weaker but is able to walk without issue. Currently denies nausea, vomiting, diarrhea, chest pain today, does complain of SOB. Last time seen in [facility] March 2019 was found to have SBO, transferred to [facility] for further evaluation. Allergy to IV contrast dye, swelling and rash. 05/29/19 16:[address] Pham, admits to [facility] Dr. Arellano ([address] [place] [address] #[phone]) 05/29/19 17:07 #[phone] Past History - Past Medical History Allergies/Adverse Reactions: Allergies Allergy/AdvReac Type Severity Reaction Status Date / Time strawberry Allergy Severe Swelling Verified 05/29/19 15:09 pepper (genus Capsicum) Allergy Unknown Verified 05/29/19 15:09 black pepper Allergy Verified 05/29/19 15:09 iohexol [From Omnipaque] Allergy Rash Verified 05/29/19 15:09 Iodinated Contrast Media AdvReac Rash Verified 05/29/19 15:09 red pepper Allergy Uncoded 05/29/19 15:09 Home Medications: Ambulatory Orders Folic Acid 1 mg PO DAILY 11/04/16 Tamsulosin HCl [Flomax] 0.4 mg PO HS 11/07/17 Allopurinol [Zyloprim -] 100 mg PO DAILY 09/04/18 Lisinopril [Zestril] 5 mg PO DAILY 09/04/18 Tramadol HCl 50 mg PO DAILY PRN 09/04/18 Isosorbide Mononitrate [Isosorbide Mononitrate ER] 60 mg PO HS 10/12/18 Apixaban [Eliquis] 5 mg PO BID 01/11/19 Aspirin [Ecotrin] 81 mg PO DAILY 01/11/19 Atorvastatin Calcium 40 mg PO HS 01/11/19 Ranolazine [Ranexa] 500 mg PO BID 01/11/19 Capecitabine [Xeloda -] 1,500 mg PO BID 05/29/19 Esomeprazole Magnesium 40 mg PO ASDIR 05/29/19 Loperamide HCl [Loperamide] 2 mg PO ASDIR PRN 05/29/19 Ondansetron [Zofran *Odt*] 8 mg SL TID PRN 05/29/19 Anemia: Yes Asthma: No Cancer: Yes (PROSTATE CANCER 2011) Cardiac Disorders: Yes (coronary artery disease, cardiac bypass 10 years ago, Afib) CVA: No COPD: No CHF: Yes Dementia: No Diabetes: No GI Disorders: (hiatal hernia) Disorders: Yes (STONES, chronic UTIs) HTN: Yes Hypercholesterolemia: Yes Kidney Stones: Yes Liver Disease: No Seizures: No Thyroid Disease: No - Surgical History Abdominal Surgery: No Appendectomy: No Cardiac Surgery: Yes (open heart, 2 stents) Cholecystectomy: No Lung Surgery: No Neurologic Surgery: No Orthopedic Surgery: No - Immunization History Immunization Up to Date: Yes - Psycho Social/Smoking Cessation Hx Smoking Status: Yes Smoking History: Unknown if ever smoked Have you smoked in the past 12 months: No Number of Cigarettes Smoked Daily: 0 If you are a former smoker, when did you quit?: 2002 'Breaking Loose' booklet given: 11/10/17 Hx Alcohol Use: No Drug/Substance Use Hx: No Substance Use Type: None Hx Substance Use Treatment: No Review of Systems - Review of Systems Able to Perform ROS?: Yes Constitutional: No: Chills, Fever, Weakness HEENTM: No: Blurred Vision, Double Vision, Tinnitus, Hearing Loss, Difficulty Swallowing Respiratory: Yes: Shortness of Breath, SOB at Rest. No: Cough Cardiac (ROS): Yes: Chest Pain, Chest Tightness. No: Irregular Heart Rate, Lightheadedness, Palpitations, Syncope ABD/GI: Yes: Diarrhea, Nausea, Poor Appetite, Poor Fluid Intake, Vomiting. No: Constipated, Difficulty Swallowing : No: Burning, Dysuria, Discharge, Frequency, Flank Pain, Hematuria, Incontinence Musculoskeletal: Yes: Muscle Weakness. No: Back Pain, Muscle Pain, Neck Pain Integumentary: No: Symptoms Reported Neurological: Yes: Weakness. No: Headache, Numbness, Paresthesia, Unsteady Gait , Dizziness Endocrine: No: Symptoms Reported Hematologic/Lymphatic: No: Symptoms Reported All Other Systems: Reviewed and Negative *Physical Exam - Vital Signs Last Vital Signs Temp Pulse Resp BP Pulse Ox 98.2 F 86 44 H 80/45 L 98 05/29/19 15:18 05/29/19 15:18 05/29/19 15:18 05/29/19 15:18 05/29/19 15:18 - Physical Exam General Appearance: Yes: Nourished, Appropriately Dressed. No: Apparent Distress HEENT: positive: EOMI, CHERRY, Normal Voice, Pharynx Normal (moist mucosa), Hearing Grossly Normal. negative: Scleral Icterus (R), Scleral Icterus (L), Pharyngeal Erythema, Tonsillar Exudate, Tonsillar Erythema Neck: positive: Trachea midline, Normal Thyroid, Supple. negative: Tender, Lymphadenopathy (R), Lymphadenopathy (L), Tender lateral, Tender midline Respiratory/Chest: positive: Lungs Clear, Normal Breath Sounds, Rapid RR. negative: Chest Tender, Respiratory Distress, Accessory Muscle Use, Crackles, Rales, Rhonchi, Stridor, Wheezing Cardiovascular: positive: Regular Rhythm, Regular Rate. negative: Murmur Gastrointestinal/Abdominal: positive: Normal Bowel Sounds, Flat, Soft. negative : Tender, Guarding, Rebound, Hernia Musculoskeletal: positive: Normal Inspection. negative: CVA Tenderness, Decreased Range of Motion Extremity: positive: Normal Capillary Refill, Normal Inspection, Normal Range of Motion, Pelvis Stable. negative: Tender Integumentary: positive: Normal Color, Dry, Warm Neurologic: positive: apprenticeship representative II-XII NML intact, Fully Oriented, Alert, Normal Mood/ Affect, Normal Response, Motor Strength 5/5. negative: Facial Droop, Numbness, Sensory Deficit ED Treatment Course - LABORATORY CBC & Chemistry Diagram: 05/29/19 16:05 05/29/19 16:05 Medical Decision Making - Medical Decision Making 05/29/19 16:40 Patient presents with nausea, vomiting, and diarrhea with chest pain last night in the setting of IV chemotherapy 4 days ago, has had this reaction every time he has had chemo over the last two weeks, sent by onc for IVF. Chest pain concerning given hx CABG and stenting, needs further evaluation for ACS and demand ischemia. Hypotensive with rapid RR in ED, non-tachycardic, likely due to fluid depletion 2/2 diarrhea/vomiting. No abdominal pain, last time in ED with N/V and abd pain was diagnosed with SBO, will perform serial abdominal exams to evaluate, but symptoms consistent most with chemo-related adverse effect. Sepsis order set ordered, will replete fluids and evaluate for electrolyte abnormalities. CXR shows no acute cardiopulmonary pathology. 05/29/19 16:45 Labs notable for: - CBC WNL, WBC 6.6 - VBG WNL, no acidosis - Na 135 - Cr 1.2, baseline 1.0 - lac 2.8, already getting IVF - ALT/AST 84/54, has been higher in the past - trop <0.02, non-concerning, chest pain last night resolved today 05/29/19 17:16 ECG shows NSR with nonspecific IV conduction delay, HR 88, QRS 124, QTc 469, no concerning TWI or ischemic changes when compared to prior in March 2019. 05/29/19 17:22 Placed call for on-call oncologist for Dr. Arellano at [facility], pending call- back. Will admit for fluids resuscitation for N/V in the setting of recent IVF and poor ability to tolerate PO in an active cancer patient. 05/29/19 17:36 Discussed case with [facility] Onc fellow Dr. Johnson (?), no other concerning features at this time, good to be admitted for fluids. 05/29/19 18:[address] Perez, farzaneh for admission to Med-Surg for IVF. Discharge - Discharge Information Problems reviewed: Yes Clinical Impression/Diagnosis: Chemotherapy induced nausea and vomiting Diarrhea Qualifiers: Diarrhea type: unspecified type Qualified Code(s): R19.7 - Diarrhea, unspecified Chest pain Qualifiers: Chest pain type: unspecified Qualified Code(s): R07.9 - Chest pain, unspecified Condition: Stable Disposition: HOME - Admission Yes - Follow up/Referral Referrals: Samantha Pham MD [Primary Care Provider] - - Patient Discharge Instructions - Post Discharge Activity
[2019-05-29 16:24] LABS: VENOUS PC02 44.9 mmHg (38-52); VENOUS PH 7.34 (7.31-7.41)
[2019-05-29 16:25] LABS: VENOUS PO2 < 49 mmHg (28-48)
[2019-05-29 16:26] LABS: BASO % 0.1 % (0-2.0); EOS % 1.9 % (0-4.5); HEMATOCRIT 31.3 % (35.4-49); HEMOGLOBIN 10.4 GM/dL (11.7-16.9); LYMPH % 6.8 % (8-40); MCH 30.4 pg (25.7-33.7); MCHC 33.1 g/dl (32.0-35.9); MEAN CELL VOLUME 91.9 fl (80-96); MEAN PLT VOLUME 8.8 fl (7.5-11.1); MONO % 0.5 % (3.8-10.2); NEUT % 90.7 % (42.8-82.8); PLATELET COUNT 154 K/MM3 (134-434); RBC 3.41 M/mm3 (4.00-5.60); RDW 17.7 % (11.9-15.9); WHITE BLOOD COUNT 6.6 K/mm3 (4.0-10.0)
--- NOTE | 2019-05-29 16:46 | PDOC ---
Attending Attestation - Resident Resident Name: Josue Moran - ED Attending Attestation I have performed the following: I have examined & evaluated the patient, The case was reviewed & discussed with the resident, I agree w/resident's findings & plan - HPI HPI: 05/29/19 18:24 see resident hpi - Physicial Exam PE: 05/29/19 18:24 agree with resident exam - Medical Decision Making 05/29/19 18:[id number] male currently on chemo and status post Whipple for likely pancreatic cancer with vomiting diarrhea and chest pressure Patient arrived tachypneic and hypotensive, now resolved after IV fluid normal saline On reevaluation he is chest pain-free, his abdomen is nontender Though patient does have risk factors for pulmonary embolism, he is currently anticoagulated on Eliquis and currently has no dyspnea or chest pain We will admit to medical service for further evaluation including serial troponins EKG showed no acute changes
[2019-05-29 16:54] LABS: INR 1.83 (0.83-1.09); PROTHROMBIN TIME (PATIENT) 21.7 SEC (9.7-13.0)
[2019-05-29 16:57] LABS: ACTIVATED PTT 35.8 SECONDS (25.2-36.5)
[2019-05-29 17:11] LABS: ALBUMIN 3.3 g/dl (3.4-5.0); BILIRUBIN,TOTAL 0.9 mg/dL (0.2-1); BLOOD UREA NITROGEN 27.7 mg/dL (7-18); CALCIUM 8.6 mg/dL (8.5-10.1); CREATININE 1.2 mg/dL (0.55-1.3); POTASSIUM 4.4 mmol/L (3.5-5.1); TOT PROT 6.7 g/dl (6.4-8.2)
--- NOTE | 2019-05-29 18:38 | HP ---
CHIEF COMPLAINT:Vomiting after chemotherapy for the last 24 hours PCP: HISTORY OF PRESENT ILLNESS: Alf Waddell is a 79M with [facility] Whipple procedure (2018), CAD s/p CABG+ stenting, AFIB on Eliquis, prostate cancer s/p seeding, currently on weekly IV chemo and daily capacitabine presenting with nausea, vomiting, diarrhea, and chest pain in the setting of recent IV chemo.Every time patient gets chemotherapy a few days there is always get vomiting and diarrhea.Patient and at bedside. Reports getting outpatient IV chemo every Friday for last 2 weeks, last chemo May.26. After every infusion, has nausea with vomiting and diarrhea every 30 minutes, poor PO intake 2/2 nausea, as well as pressure-like chest pain throughout the night, has tried nitro without success. Called oncologist at [facility] and was told to go to ED for IV fluids, and to stop taking capacitabine. Denies any abdominal pain, urinary symptoms, dizziness, PINTO , vision changes. Has had poor hearing in left ear after Whipple in 02/2019 but denies any tinnitus or other hearing changes. Feels weaker but is able to walk without issue. Currently denies nausea, vomiting, diarrhea, chest pain today, does complain of SOB. ER course was notable for: (1)History of pancreatic cancer (2)Severe vomiting (3)Diarrhea Recent Travel:None PAST MEDICAL HISTORY: Whipple procedure (2018), CAD s/p CABG+stenting, AFIB on Eliquis, prostate cancer PAST SURGICAL HISTORY: Whipple procedure (2018), CAD s/p CABG+stenting, Social History:No history of smoking alcohol or drug use Smoking: Alcohol: Drugs: Allergies strawberry Allergy (Severe, Verified 05/29/19 15:09) Swelling pepper (genus Capsicum) Allergy (Unknown, Verified 05/29/19 15:09) black pepper Allergy (Verified 05/29/19 15:09) iohexol [From Omnipaque] Allergy (Verified 05/29/19 15:09) Rash Iodinated Contrast Media Adverse Reaction (Verified 05/29/19 15:09) Rash red pepper Allergy (Uncoded 05/29/19 15:09) HOME MEDICATIONS: Home Medications Medication Instructions Recorded Folic Acid 1 mg PO DAILY 11/04/16 Tamsulosin HCl [Flomax] 0.4 mg PO HS 11/07/17 Allopurinol [Zyloprim -] 100 mg PO DAILY 09/04/18 Lisinopril [Zestril] 5 mg PO DAILY 09/04/18 Tramadol HCl 50 mg PO DAILY PRN 09/04/18 Isosorbide Mononitrate [Isosorbide 60 mg PO HS 10/12/18 Mononitrate ER] Apixaban [Eliquis] 5 mg PO BID 01/11/19 Aspirin [Ecotrin] 81 mg PO DAILY 01/11/19 Atorvastatin Calcium 40 mg PO HS 01/11/19 Ranolazine [Ranexa] 500 mg PO BID 01/11/19 Capecitabine [Xeloda -] 1,500 mg PO BID 05/29/19 Esomeprazole Magnesium 40 mg PO ASDIR 05/29/19 Loperamide HCl [Loperamide] 2 mg PO ASDIR PRN 05/29/19 Ondansetron [Zofran *Odt*] 8 mg SL TID PRN 05/29/19 REVIEW OF SYSTEMS CONSTITUTIONAL: Absent: fever, chills, diaphoresis, generalized weakness, malaise, loss of appetite, weight change HEENT: Absent: rhinorrhea, nasal congestion, throat pain, throat swelling, difficulty swallowing, mouth swelling, ear pain, eye pain, visual changes CARDIOVASCULAR: Absent: chest pain, syncope, palpitations, irregular heart rate, lightheadedness , peripheral edema RESPIRATORY: Absent: cough, shortness of breath, dyspnea with exertion, orthopnea, wheezing, stridor, hemoptysis GASTROINTESTINAL: Absent: Vomiting and diarrhea GENITOURINARY: Absent: dysuria, frequency, urgency, hesitancy, hematuria, flank pain, genital pain MUSCULOSKELETAL: Absent: myalgia, arthralgia, joint swelling, back pain, neck pain SKIN: Absent: rash, itching, pallor HEMATOLOGIC/IMMUNOLOGIC: Absent: easy bleeding, easy bruising, lymphadenopathy, frequent infections ENDOCRINE: Absent: unexplained weight gain, unexplained weight loss, heat intolerance, cold intolerance NEUROLOGIC: Absent: headache, focal weakness or paresthesias, dizziness, unsteady gait, seizure, mental status changes, bladder or bowel incontinence PSYCHIATRIC: Absent: anxiety, depression, suicidal or homicidal ideation, hallucinations. PHYSICAL EXAMINATION Vital Signs - 24 hr 05/29/19 05/29/19 05/29/19 15:18 15:45 16:00 Temperature 98.2 F Pulse Rate 86 Pulse Rate [ Apical] Pulse Rate [ 59 L Radial] Respiratory 44 H 38 H Rate Blood Pressure 80/45 L Blood Pressure 92/49 L [Left Arm] O2 Sat by Pulse 98 97 100 Oximetry (%) 05/29/19 05/29/19 16:30 18:05 Temperature Pulse Rate Pulse Rate [ 64 Apical] Pulse Rate [ 74 Radial] Respiratory 40 H 19 Rate Blood Pressure Blood Pressure 91/51 L 94/49 L [Left Arm] O2 Sat by Pulse 100 98 Oximetry (%) GENERAL: Awake, alert, and fully oriented, in no acute distress. HEAD: Normal with no signs of trauma. EYES: Pupils equal, round and reactive to light, extraocular movements intact, sclera anicteric, conjunctiva clear. No lid lag. EARS, NOSE, THROAT: Ears normal, nares patent, oropharynx clear without exudates. Moist mucous membranes. NECK: Normal range of motion, supple without lymphadenopathy, JVD, or masses. LUNGS: Breath sounds equal, clear to auscultation bilaterally. No wheezes, and no crackles. No accessory muscle use. HEART: Regular rate and rhythm, normal S1 and S2 without murmur, rub or gallop. ABDOMEN: Soft, nontender, not distended, normoactive bowel sounds, no guarding, no rebound, no masses. No hepatomegaly or splenomegaly. Surgical scar noted MUSCULOSKELETAL: Normal range of motion at all joints. No bony deformities or tenderness. No CVA tenderness. UPPER EXTREMITIES: 2+ pulses, warm, well-perfused. No cyanosis. No clubbing. No peripheral edema. LOWER EXTREMITIES: 2+ pulses, warm, well-perfused. No calf tenderness. No peripheral edema. NEUROLOGICAL: Cranial nerves II-XII intact. Normal speech. Normal gait. PSYCHIATRIC: Cooperative. Good eye contact. Appropriate mood and affect. SKIN: Warm, dry, normal turgor, no rashes or lesions noted, normal capillary refill. Laboratory Results - last 24 hr 05/29/19 05/29/19 05/29/19 16:05 16:05 16:05 WBC 6.6 RBC 3.41 L Hgb 10.4 L Hct 31.3 L MCV 91.9 MCH 30.4 MCHC 33.1 RDW 17.7 H Plt Count 154 D MPV 8.8 D Absolute Neuts (auto) 6.0 Neutrophils % 90.7 H Lymphocytes % 6.8 L D Monocytes % 0.5 L D Eosinophils % 1.9 D Basophils % 0.1 Nucleated RBC % 0 PT with INR 21.70 H INR 1.83 H PTT (Actin FS) 35.8 VBG pH POC VBG pCO2 POC VBG pO2 VBG HCO3 VBG O2 Sat (Bozena) VBG Base Excess Sodium Potassium Chloride Carbon Dioxide Anion Gap BUN Creatinine Est GFR (CKD-EPI)AfAm Est GFR (CKD-EPI)NonAf Random Glucose Lactic Acid Calcium Total Bilirubin AST ALT Alkaline Phosphatase Troponin I < 0.02 Total Protein Albumin 05/29/19 05/29/19 05/29/19 16:05 16:05 16:05 WBC RBC Hgb Hct MCV MCH MCHC RDW Plt Count MPV Absolute Neuts (auto) Neutrophils % Lymphocytes % Monocytes % Eosinophils % Basophils % Nucleated RBC % PT with INR INR PTT (Actin FS) VBG pH 7.34 POC VBG pCO2 44.9 POC VBG pO2 < 49 H VBG HCO3 23.4 VBG O2 Sat (Bozena) 16.3 L VBG Base Excess -2.0 Sodium 135 L Potassium 4.4 Chloride 104 Carbon Dioxide 22 Anion Gap 9 BUN 27.7 H Creatinine 1.2 Est GFR (CKD-EPI)AfAm 66.26 Est GFR (CKD-EPI)NonAf 57.17 Random Glucose 144 H Lactic Acid 2.8 H* Calcium 8.6 Total Bilirubin 0.9 AST 54 H ALT 84 H Alkaline Phosphatase 412 H Troponin I Total Protein 6.7 Albumin 3.3 L ASSESSMENT/PLAN: Alf Waddell is a 79M with [facility] Whipple procedure (2018), CAD s/p CABG+ stenting, AFIB on Eliquis, prostate cancer s/p seeding, currently on weekly IV chemo and daily capacitabine presenting with nausea, vomiting, diarrhea, and chest pain in the setting of recent IV chemo. Vomiting and dehydration. Start on IV normal saline 125 cc an hour Zofran IV piggyback every 6 hourly as needed. For hypertension atrial fibrillation hyperlipidemia we will continue his home medications. Visit type - Emergency Visit Emergency Visit: Yes Care time: The patient presented to the Emergency Department on the above date and was hospitalized for further evaluation of their emergent condition. - New Patient This patient is new to me today: Yes Date on this admission: 05/29/19 - Critical Care Critical Care patient: No
[2019-05-29] MEDS: SODIUM CHLORIDE 1,000 ML IV SCH (18:56)
[2019-05-29 20:09] LABS: ALBUMIN 2.7 g/dl (3.4-5.0); BLOOD UREA NITROGEN 24.9 mg/dL (7-18); CALCIUM 7.9 mg/dL (8.5-10.1); POTASSIUM 4.4 mmol/L (3.5-5.1); TOT PROT 5.2 g/dl (6.4-8.2)
[2019-05-29] MEDS: ISOSORBIDE MONONITRATE 60 MG TAB.SR.24H (FP) PO SCH (22:35)
[2019-05-29] MEDS: APIXABAN 5 MG TABLET PO SCH (22:35)
[2019-05-29] MEDS: ATORVASTATIN CA 40 MG TABLET (FP) PO SCH (22:35)
[2019-05-29] MEDS: TAMSULOSIN HCL 0.4 MG CAP PO SCH (22:35)
[2019-05-29] MEDS: RANOLAZINE E.R. 500 MG TABLET (FP) PO SCH (22:36)
[2019-05-29 23:58] VITALS: BMI 26.4
[2019-05-30 07:43] LABS: BASO % 0.1 % (0-2.0); EOS % 1.5 % (0-4.5); HEMATOCRIT 22.8 % (35.4-49); HEMOGLOBIN 7.6 GM/dL (11.7-16.9); LYMPH % 11.9 % (8-40); MCH 30.5 pg (25.7-33.7); MCHC 33.6 g/dl (32.0-35.9); MEAN CELL VOLUME 90.8 fl (80-96); MEAN PLT VOLUME 8.5 fl (7.5-11.1); MONO % 0.8 % (3.8-10.2); NEUT % 85.7 % (42.8-82.8); PLATELET COUNT 110 K/MM3 (134-434); RBC 2.51 M/mm3 (4.00-5.60); RDW 17.2 % (11.9-15.9); WHITE BLOOD COUNT 4.5 K/mm3 (4.0-10.0)
[2019-05-30] MEDS: APIXABAN 5 MG TABLET PO SCH ×2 (09:15→22:01)
[2019-05-30] MEDS: RANOLAZINE E.R. 500 MG TABLET (FP) PO SCH ×2 (09:15→22:22)
[2019-05-30] MEDS: FOLIC ACID 1 MG TABLET (FP) PO SCH (09:15)
[2019-05-30] MEDS: ALLOPURINOL 100 MG TABLET (FP) PO SCH (09:16)
[2019-05-30] MEDS: PANTOPRAZOLE 40 MG TABLET PO SCH (09:16)
[2019-05-30] MEDS: LISINOPRIL 5 MG TABLET (FP) PO SCH (09:16)
[2019-05-30] MEDS ORDERED: ASPIRIN COATED 81 MG TABLET.EC PO SCH (10:00)
[2019-05-30 10:24] LABS: EPI CELLS 0.9 /HPF (0-5/HPF); HYALINE CASTS 3 /lpf (0-8); PH,URINE 5.5 (5.0-8.0); URINE APPEARANCE CLEAR; URINE BILIRUBIN NEGATIVE (NEGATIVE); URINE COLOR YELLOW; URINE GLUCOSE (UA) NEGATIVE (NEGATIVE); URINE KETONE NEGATIVE (NEGATIVE); URINE LEUK ESTERASE TRACE (NEGATIVE); URINE NITRITE NEGATIVE (NEGATIVE); URINE PROTEIN NEGATIVE (NEGATIVE); URINE RBC 1 /hpf (0-4); URINE UROBILINOGEN 0.2 mg/dL (0.2-1.0); URINE WBC 6 /hpf (0-5)
[2019-05-30] MEDS: LOPERAMIDE HCL 2 MG CAPSULE PO PRN ×2 (12:21→20:30)
--- NOTE | 2019-05-30 14:15 | EKG ---
Test Reason : Blood Pressure : / mmHG Vent. Rate : 088 BPM Atrial Rate : 088 BPM P-R Int : 174 ms QRS Dur : 124 ms QT Int : 388 ms P-R-T Axes : 011 042 137 degrees QTc Int : 469 ms POOR DATA QUALITY, INTERPRETATION MAY BE ADVERSELY AFFECTED NORMAL SINUS RHYTHM NON-SPECIFIC INTRA-VENTRICULAR CONDUCTION DELAY ABNORMAL ECG Confirmed by MD BRITTANI, LEDA ([id number]) on 05/30/2019 2:15:18 PM Referred By: Confirmed By:LEDA PETER MD
--- NOTE | 2019-05-30 14:39 | HP ---
Admitting History and Physical - Past Medical History Cardiovascular: Yes: AFIB, CAD, CHF, HTN, Hyperlipdemia, Other (PVD, CAD, Coronary Bypass, CAD, Stent lower left leg) Gastrointestinal: Yes: GERD Hepatobiliary: Yes: Other (dilated CBD ? etiology) Renal/: Yes: BPH (had laser TURB following the RT), Cancer (prostate cancer treated with RT seeds and ext. beam), Renal Calculi, Other (urethral stricture dilated in the past and culminating in urosepsis) Heme/Onc: Yes: Cancer (prostate cancer) Musculoskeletal: Yes: Osteoarthritis (Chronic Lower back pain) Rheumatology: Yes: Gout - Past Surgical History Past Surgical History: Yes: CABG, Stent (stents, both cardiac and LLE) - Smoking History Smoking history: Former smoker Have you smoked in the past 12 months: No Aproximately how many cigarettes per day: 0 If you are a former smoker, when did you quit?: 2002 - Alcohol/Substance Use Hx Alcohol Use: No History of Substance Use: reports: None - Social History ADL: Independent 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 History of Recent Travel: No Home Medications - Allergies Allergies/Adverse Reactions: Allergies Allergy/AdvReac Type Severity Reaction Status Date / Time strawberry Allergy Severe Swelling Verified 05/29/19 15:09 pepper (genus Capsicum) Allergy Unknown Verified 05/29/19 15:09 black pepper Allergy Verified 05/29/19 15:09 iohexol [From Omnipaque] Allergy Rash Verified 05/29/19 15:09 Iodinated Contrast Media AdvReac Rash Verified 05/29/19 15:09 red pepper Allergy Uncoded 05/29/19 15:09 - Home Medications Home Medications: Ambulatory Orders Folic Acid 1 mg PO DAILY 11/04/16 Tamsulosin HCl [Flomax] 0.4 mg PO HS 11/07/17 Allopurinol [Zyloprim -] 100 mg PO DAILY 09/04/18 Lisinopril [Zestril] 5 mg PO DAILY 09/04/18 Tramadol HCl 50 mg PO DAILY PRN 09/04/18 Isosorbide Mononitrate [Isosorbide Mononitrate ER] 60 mg PO HS 10/12/18 Apixaban [Eliquis] 5 mg PO BID 01/11/19 Aspirin [Ecotrin] 81 mg PO DAILY 01/11/19 Atorvastatin Calcium 40 mg PO HS 01/11/19 Ranolazine [Ranexa] 500 mg PO BID 01/11/19 Capecitabine [Xeloda -] 1,500 mg PO BID 05/29/19 Esomeprazole Magnesium 40 mg PO ASDIR 05/29/19 Loperamide HCl [Loperamide] 2 mg PO ASDIR PRN 05/29/19 Ondansetron [Zofran *Odt*] 8 mg SL TID PRN 05/29/19 Physical Examination Vital Signs: Vital Signs Temperature 98.3 F 05/30/19 06:00 Pulse Rate 75 05/30/19 06:00 Respiratory Rate 20 05/30/19 10:00 Blood Pressure 93/54 L 05/30/19 06:00 O2 Sat by Pulse Oximetry (%) 96 05/30/19 10:00 Labs: CBC, BMP 05/30/19 06:50 05/29/19 19:21
[2019-05-30] MEDS: ONDANSETRON 4 MG/2 ML VIAL IVPUSH PRN ×2 (15:01→21:11)
--- NOTE | 2019-05-30 19:46 | CONSULT ---
Consult Consult Specialty:: Oncology Referred by:: Dr. 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 Arellano admitted with diarrhea, vomiting, and chest pain. Continues to have significant nausea and vomiting. Denies abdominal pain, fever, chills. - Past Medical History Cardio/Vascular: Yes: AFIB, CAD, CHF, HTN, Hyperlipdemia, Other (PVD, CAD, Coronary Bypass, CAD, Stent lower left leg) Gastrointestinal: Yes: GERD Hepatobiliary: Yes: Other (dilated CBD ? etiology) Renal/: Yes: BPH (had laser TURB following the RT), Cancer (prostate cancer treated with RT seeds and ext. beam), Renal Calculi, Other (urethral stricture dilated in the past and culminating in urosepsis) Musculoskeletal: Yes: Osteoarthritis (Chronic Lower back pain) Rheumatology: Yes: Gout - Past Surgical History Past Surgical History: Yes: CABG, Stent (stents, both cardiac and LLE) - Alcohol/Substance Use Hx Alcohol Use: No History of Substance Use: reports: None - Smoking History Smoking history: Former smoker Have you smoked in the past 12 months: No Aproximately how many cigarettes per day: 0 If you are a former smoker, when did you quit?: 2002 - Social History Usual Living Arrangement: With Spouse ADL: Independent Occupation: Retired Ahead History of Recent Travel: No Home Medications - Allergies Allergies/Adverse Reactions: Allergies Allergy/AdvReac Type Severity Reaction Status Date / Time strawberry Allergy Severe Swelling Verified 05/29/19 15:09 pepper (genus Capsicum) Allergy Unknown Verified 05/29/19 15:09 black pepper Allergy Verified 05/29/19 15:09 iohexol [From Omnipaque] Allergy Rash Verified 05/29/19 15:09 Iodinated Contrast Media AdvReac Rash Verified 05/29/19 15:09 red pepper Allergy Uncoded 05/29/19 15:09 - Home Medications Home Medications: Ambulatory Orders Folic Acid 1 mg PO DAILY 11/04/16 Tamsulosin HCl [Flomax] 0.4 mg PO HS 11/07/17 Allopurinol [Zyloprim -] 100 mg PO DAILY 09/04/18 Lisinopril [Zestril] 5 mg PO DAILY 09/04/18 Tramadol HCl 50 mg PO DAILY PRN 09/04/18 Isosorbide Mononitrate [Isosorbide Mononitrate ER] 60 mg PO HS 10/12/18 Apixaban [Eliquis] 5 mg PO BID 01/11/19 Aspirin [Ecotrin] 81 mg PO DAILY 01/11/19 Atorvastatin Calcium 40 mg PO HS 01/11/19 Ranolazine [Ranexa] 500 mg PO BID 01/11/19 Capecitabine [Xeloda -] 1,500 mg PO BID 05/29/19 Esomeprazole Magnesium 40 mg PO ASDIR 05/29/19 Loperamide HCl [Loperamide] 2 mg PO ASDIR PRN 05/29/19 Ondansetron [Zofran *Odt*] 8 mg SL TID PRN 05/29/19 Review of Systems - Review of Systems Constitutional: reports: Weakness. denies: Fever Cardiovascular: reports: Chest Pain Respiratory: denies: Cough, SOB Gastrointestinal: reports: Nausea, Vomiting. denies: Abdominal Pain Hematology/Lymphatic: reports: No Symptoms Physical Exam Vital Signs: Vital Signs Temperature 97.9 F 05/30/19 18:00 Pulse Rate 90 05/30/19 18:00 Respiratory Rate 20 05/30/19 18:00 Blood Pressure 119/72 05/30/19 18:00 O2 Sat by Pulse Oximetry (%) 96 05/30/19 10:00 Labs: CBC, BMP 05/30/19 06:50 05/29/19 19:21 Assessment/Plan 78Ms/p pylorus sparing Whipple for ampullary mass in Feb 2019 ([id number] moderately differentiated carcinoma of the ampulla), on adjuvant chemo with weekly gemcitabine and capecitabine since 05/19/19 (last capecitabine 2 days ago ) admitted with diarrhea and vomiting likely 2/2 capecitabine. - Please continue to hold capecitabine - IV hydration with monitoring of volume status - On Zofran, consider escalating anti-emetics if continues vomiting - Immodium for diarrhea .
[2019-05-30] MEDS: TAMSULOSIN HCL 0.4 MG CAP PO SCH (22:01)
[2019-05-30] MEDS: ATORVASTATIN CA 40 MG TABLET (FP) PO SCH (22:01)
[2019-05-30] MEDS: ISOSORBIDE MONONITRATE 60 MG TAB.SR.24H (FP) PO SCH (22:01)
[2019-05-30] MEDS: traMADol HCL 50 MG TABLET PO PRN (22:25)
[2019-05-31] MEDS: SODIUM CHLORIDE 1,000 ML IV SCH ×3 (00:25→12:43)
[2019-05-31] MEDS ORDERED: NITROGLYCERIN SUBLINGUAL 1/150 0.4 MG TAB ONE (05:13)
[2019-05-31] MEDS: NITROGLYCERIN SUBLINGUAL 1/200 0.3 MG BTL SL PRN ×3 (05:20→06:05)
[2019-05-31] MEDS ORDERED: CLOPIDOGREL BISULFATE 300 MG TABLET PO ONE (05:29)
[2019-05-31] MEDS ORDERED: HEPARIN NA (PORCINE) 5,000 UNITS/ML 1ML VIAL IVPUSH PRN ×2 (05:31)
--- NOTE | 2019-05-31 05:37 | HOSP ---
Physical Examination Vital Signs: Vital Signs Temperature 98.5 F 05/31/19 02:00 Pulse Rate 74 05/31/19 02:00 Respiratory Rate 18 05/31/19 02:00 Blood Pressure 121/62 05/31/19 02:00 O2 Sat by Pulse Oximetry (%) 100 05/30/19 21:00 Labs: CBC, BMP 05/30/19 06:50 05/29/19 19:21 Hospitalist Encounter Assessment: Patient with substernal chest pain. EKG from 2:19am showed new ST depressions in inferior leads. Troponin was negative. Continuous chest pain concerning for unstable angina. Ordered loading Aspirin and Plavix, starting on heparin drip. Received 40mg Lipitor last night. Echo ordered. Page to Dr. Shine (Pt's human factors advisor lead)was placed.
[2019-05-31] MEDS ORDERED: HEPARIN - 25,000 UNIT in SODIUM CHLORIDE 495 ML IV SCH (05:45)
--- NOTE | 2019-05-31 05:51 | PN ---
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 Vitals: Pulse Irregular, ranging between 130-160 B/P: 120s/60s O2: 85% on RA Exam: - AOx3 - Lungs: Coarse crackles B/L - Heart: RRR No murmurs A&P: #Afib RVR: - Cardizem 20 pushed, followed by Cardizem drip - Rate reverted to #Unstable angina - EKG showed ST depression in inferior leads - Trop negative - ASA, Plavix ordered, started on heparin drp - Echo ordered - Dr. Mata consulted #Hypoxia - Started on NRB mask
[2019-05-31] MEDS ORDERED: METOPROLOL TARTRATE 25 MG TABLET (FP) PO ONE (07:49)
[2019-05-31 08:01] LABS: BASO % 0.1 % (0-2.0); EOS % 0.6 % (0-4.5); HEMATOCRIT 21.5 % (35.4-49); HEMOGLOBIN 7.2 GM/dL (11.7-16.9); LYMPH % 11.7 % (8-40); MCH 30.3 pg (25.7-33.7); MCHC 33.7 g/dl (32.0-35.9); MEAN PLT VOLUME 8.3 fl (7.5-11.1); MONO % 0.5 % (3.8-10.2); NEUT % 87.1 % (42.8-82.8); PLATELET COUNT 100 K/MM3 (134-434); RBC 2.39 M/mm3 (4.00-5.60); RDW 17.6 % (11.9-15.9); WHITE BLOOD COUNT 4.2 K/mm3 (4.0-10.0)
[2019-05-31] MEDS: ASPIRIN 325 MG TABLET PO SCH ×2 (08:10→10:11)
[2019-05-31 08:12] LABS: ALBUMIN 2.2 g/dl (3.4-5.0); BILIRUBIN,DIRECT 0.5 mg/dL (0.0-0.2); BILIRUBIN,TOTAL 1.6 mg/dL (0.2-1); TOT PROT 4.5 g/dl (6.4-8.2)
[2019-05-31 08:32] LABS: BLOOD UREA NITROGEN 10.3 mg/dL (7-18); CALCIUM 7.4 mg/dL (8.5-10.1); CREATININE 0.7 mg/dL (0.55-1.3); POTASSIUM 3.8 mmol/L (3.5-5.1)
--- NOTE | 2019-05-31 08:43 | CON.CARD ---
Consult Consult Specialty:: Cardiology - History of Present Illness History of Present Illness: 78Mwith CAD s/p stent, A.fib on eliquis, prostate cancer s/p RT, s/p pylorus sparing Whipple for ampullary mass in Feb 2019 ([id number] moderately differentiated carcinoma of the ampulla), on adjuvant chemo with weekly gemcitabine and capecitabine since 05/19/19 (last xeloda 2 days ago), followed by Dr. Arellano admitted with diarrhea, vomiting, and chest pain. Continues to have significant nausea and vomiting. Denies abdominal pain, fever, chills. PMH cabg lithotripsy prostate seeds Ongoing medical problems Afib diagnosed at the hospital during SFA [employer] 08/2015 and has been on coumadin since then 2015 CAD Coronary artery bypass graft SANTIAGO of left SFA August 11, 2014 Dr. Blanton SANTIAGO of left PDA July 07, 2014 Dr. Blanton dizziness Hyperlipidemia Hypertension Negative MIBI stress test 2013 [place] [facility] NSVT Pauses PCI SANTIAGO of p LCx March 30, 2015 Dr. Blanton PCI LCx 08/17/12 [facility] Pancreatic CA s/p Whipple [facility] [address] post op awaiting chemo. PCI LCx 07/07/14 Dr. Blanton [employer]/stent right SFA 526/16 DR BLANTON Right SFA 100 occlusion July 07, 2014 Dr. Blanton s/p [employer]ED [employer] drug elluting balloon L SFA 2015 s/p [employer] left SFA 09/25/17 for left foot ulcer s/p urethral stricture after cystoscopy and urethrotomy the patient went into septic shock and was treated with antibiotics and was stabilized. October 2017 - History Source History Provided By: Patient, Medical Record - Past Medical History Cardio/Vascular: Yes: AFIB, CAD, CHF, HTN, Hyperlipdemia, Other (PVD, CAD, Coronary Bypass, CAD, Stent lower left leg) Gastrointestinal: Yes: GERD Hepatobiliary: Yes: Other (dilated CBD ? etiology) Renal/: Yes: BPH (had laser TURB following the RT), Cancer (prostate cancer treated with RT seeds and ext. beam), Renal Calculi, Other (urethral stricture dilated in the past and culminating in urosepsis) Musculoskeletal: Yes: Osteoarthritis (Chronic Lower back pain) Rheumatology: Yes: Gout - Past Surgical History Past Surgical History: Yes: CABG, Stent (stents, both cardiac and LLE) - Alcohol/Substance Use Hx Alcohol Use: No History of Substance Use: reports: None - Smoking History Smoking history: Former smoker Have you smoked in the past 12 months: No Aproximately how many cigarettes per day: 0 If you are a former smoker, when did you quit?: 2002 - Social History Usual Living Arrangement: With Spouse ADL: Independent 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 History of Recent Travel: No Home Medications - Allergies Allergies/Adverse Reactions: Allergies Allergy/AdvReac Type Severity Reaction Status Date / Time strawberry Allergy Severe Swelling Verified 05/29/19 15:09 pepper (genus Capsicum) Allergy Unknown Verified 05/29/19 15:09 black pepper Allergy Verified 05/29/19 15:09 iohexol [From Omnipaque] Allergy Rash Verified 05/29/19 15:09 Iodinated Contrast Media AdvReac Rash Verified 05/29/19 15:09 red pepper Allergy Uncoded 05/29/19 15:09 - Home Medications Home Medications: Ambulatory Orders Folic Acid 1 mg PO DAILY 11/04/16 Tamsulosin HCl [Flomax] 0.4 mg PO HS 11/07/17 Allopurinol [Zyloprim -] 100 mg PO DAILY 09/04/18 Lisinopril [Zestril] 5 mg PO DAILY 09/04/18 Tramadol HCl 50 mg PO DAILY PRN 09/04/18 Isosorbide Mononitrate [Isosorbide Mononitrate ER] 60 mg PO HS 10/12/18 Apixaban [Eliquis] 5 mg PO BID 01/11/19 Aspirin [Ecotrin] 81 mg PO DAILY 01/11/19 Atorvastatin Calcium 40 mg PO HS 01/11/19 Ranolazine [Ranexa] 500 mg PO BID 01/11/19 Capecitabine [Xeloda -] 1,500 mg PO BID 05/29/19 Esomeprazole Magnesium 40 mg PO ASDIR 05/29/19 Loperamide HCl [Loperamide] 2 mg PO ASDIR PRN 05/29/19 Ondansetron [Zofran *Odt*] 8 mg SL TID PRN 05/29/19 Review of Systems - Review of Systems Constitutional: reports: No Symptoms Eyes: reports: No Symptoms HENT: reports: No Symptoms Neck: reports: No Symptoms Cardiovascular: reports: Chest Pain Respiratory: reports: No Symptoms Gastrointestinal: reports: Nausea, Vomiting Genitourinary: reports: No Symptoms Breasts: reports: No Symptoms Reported Musculoskeletal: reports: No Symptoms Integumentary: reports: No Symptoms Neurological: reports: No Symptoms Endocrine: reports: No Symptoms Hematology/Lymphatic: reports: No Symptoms Psychiatric: reports: No Symptoms Vital Signs: Vital Signs Temperature 976.8 F H 05/31/19 07:45 Pulse Rate 79 05/31/19 07:45 Respiratory Rate 20 05/31/19 07:45 Blood Pressure 123/73 05/31/19 07:45 O2 Sat by Pulse Oximetry (%) 100 05/30/19 21:00 Constitutional: Yes: Well Nourished, No Distress, Calm Eyes: Yes: WNL, Conjunctiva Clear, EOM Intact HENT: Yes: WNL, Atraumatic, Normocephalic Neck: Yes: WNL, Supple, Trachea Midline Respiratory: Yes: WNL, Regular, CTA Bilaterally Gastrointestinal: Yes: WNL, Normal Bowel Sounds Renal/: Yes: WNL Cardiovascular: Yes: WNL, Regular Rate and Rhythm Musculoskeletal: Yes: WNL Extremities: Yes: WNL Integumentary: Yes: WNL Neurological: Yes: WNL, Alert, Oriented ...Motor Strength: WNL Psychiatric: Yes: WNL, Alert, Oriented - Other Data Labs, Other Data: CBC, BMP 05/31/19 06:50 05/31/19 06:50 INR, PTT INR 1.83 (0.83-1.09) H 05/29/19 16:05 Troponin, BNP 05/31/19 05/31/19 01:50 06:50 Troponin I 0.04 0.02 Troponin, BNP 05/31/19 05/31/19 01:50 06:50 Troponin I 0.04 0.02 Imaging - Results Chest X-ray: Image Reviewed (no i/e) EKG: Image Reviewed (sr IVCD) Problem List - Problems (1) Chemotherapy induced nausea and vomiting Code(s): R11.2 - NAUSEA WITH VOMITING, UNSPECIFIED; T45.1X5A - ADVERSE EFFECT OF ANTINEOPLASTIC AND IMMUNOSUP DRUGS, INIT (2) Chest pain Code(s): R07.9 - CHEST PAIN, UNSPECIFIED Qualifiers: Chest pain type: unspecified Qualified Code(s): R07.9 - Chest pain, unspecified (3) Diarrhea Code(s): R19.7 - DIARRHEA, UNSPECIFIED Qualifiers: Diarrhea type: unspecified type Qualified Code(s): R19.7 - Diarrhea, unspecified (4) Nausea and vomiting Code(s): R11.2 - NAUSEA WITH VOMITING, UNSPECIFIED Qualifiers: Vomiting type: unspecified Vomiting Intractability: non-intractable Qualified Code(s): R11.2 - Nausea with vomiting, unspecified (5) KWAME (acute kidney injury) Code(s): N17.9 - ACUTE KIDNEY FAILURE, UNSPECIFIED (6) ASHD (arteriosclerotic heart disease) Code(s): I25.10 - ATHSCL HEART DISEASE OF [place] CORONARY ARTERY W/O ANG PCTRS (7) Abnormal LFTs (liver function tests) Code(s): R94.5 - ABNORMAL RESULTS OF LIVER FUNCTION STUDIES (8) Alkaline phosphatase elevation Code(s): R74.8 - ABNORMAL LEVELS OF OTHER SERUM ENZYMES (9) Ampulla of Vater mass Code(s): K83.8 - OTHER SPECIFIED DISEASES OF BILIARY TRACT (10) Anemia Code(s): D64.9 - ANEMIA, UNSPECIFIED (11) Anxiety Code(s): F41.9 - ANXIETY DISORDER, UNSPECIFIED (12) Atrial fibrillation Code(s): I48.91 - UNSPECIFIED ATRIAL FIBRILLATION (13) Atypical chest pain Code(s): R07.89 - OTHER CHEST PAIN (14) BPH (benign prostatic hyperplasia) Code(s): N40.0 - BENIGN PROSTATIC HYPERPLASIA WITHOUT LOWER URINRY TRACT SYMP (15) Chronic diastolic (congestive) heart failure Code(s): I50.32 - CHRONIC DIASTOLIC (CONGESTIVE) HEART FAILURE (16) Chronic lower back pain Code(s): M54.5 - LOW BACK PAIN; G89.29 - OTHER CHRONIC PAIN (17) Dilated bile duct Code(s): K83.8 - OTHER SPECIFIED DISEASES OF BILIARY TRACT (18) Dyspepsia Code(s): R10.13 - EPIGASTRIC PAIN (19) Gout Code(s): M10.9 - GOUT, UNSPECIFIED (20) HTN (hypertension) Code(s): I10 - ESSENTIAL (PRIMARY) HYPERTENSION (21) Hematuria Code(s): R31.9 - HEMATURIA, UNSPECIFIED Qualifiers: Hematuria type: gross Qualified Code(s): R31.0 - Gross hematuria (22) Herpes simplex Code(s): B00.9 - HERPESVIRAL INFECTION, UNSPECIFIED (23) History of colon polyps Code(s): Z86.010 - PERSONAL HISTORY OF COLONIC POLYPS (24) Hx of CABG Code(s): Z95.1 - PRESENCE OF AORTOCORONARY BYPASS GRAFT (25) Hyperlipidemia Code(s): E78.5 - HYPERLIPIDEMIA, UNSPECIFIED (26) Hyperlipidemia Code(s): E78.5 - HYPERLIPIDEMIA, UNSPECIFIED (27) MRSA bacteremia Code(s): R78.81 - BACTEREMIA (28) Obesity Code(s): E66.9 - OBESITY, UNSPECIFIED (29) PAD (peripheral artery disease) Code(s): I73.9 - PERIPHERAL VASCULAR DISEASE, UNSPECIFIED (30) Prophylactic measure Code(s): Z29.9 - ENCOUNTER FOR PROPHYLACTIC MEASURES, UNSPECIFIED (31) Prostate cancer Code(s): C61 - MALIGNANT NEOPLASM OF PROSTATE (32) SBO (small bowel obstruction) Code(s): K56.609 - UNSP INTESTNL OBST, UNSP TO PARTIAL VERSUS COMPLETE OBST (33) Sepsis Code(s): A41.9 - SEPSIS, UNSPECIFIED ORGANISM (34) Septic shock Code(s): A41.9 - SEPSIS, UNSPECIFIED ORGANISM; R65.21 - SEVERE SEPSIS WITH SEPTIC SHOCK (35) Supratherapeutic INR Code(s): R79.1 - ABNORMAL COAGULATION PROFILE (36) Unstable angina Code(s): I20.0 - UNSTABLE ANGINA (37) Urinary retention Code(s): R33.9 - RETENTION OF URINE, UNSPECIFIED (38) Urinary tract infection Code(s): N39.0 - URINARY TRACT INFECTION, SITE NOT SPECIFIED Qualifiers: Urinary tract infection type: acute cystitis Hematuria presence: with hematuria Qualified Code(s): N30.01 - Acute cystitis with hematuria Assessment/Plan 78Mwith CAD s/p stent, A.fib on eliquis, prostate cancer s/p RT, s/p pylorus sparing Whipple for ampullary mass in Feb 2019 ([id number] moderately differentiated carcinoma of the ampulla), on adjuvant chemo with weekly gemcitabine and capecitabine since 05/19/19 (last xeloda 2 days ago), followed by Dr. Arellano admitted with diarrhea, vomiting, and chest pain. Developed anginal chest pain in rhe settingt of severe anemia with HCT 21%. TNIs, neg. Nonsustained VT on telemetry. EKG unchanged from the baseline. Plan; transfuse up to HCT 30% start AC with lovonox 1 mg/dl Q12 h patient is guaiac negative. Cont medical RX for angina Ranexa, nitrates BB If refractory angina persists despite correcting anemia will consider c. cath. d/w dr. Blanton
[2019-05-31] MEDS: FOLIC ACID 1 MG TABLET (FP) PO SCH (10:10)
[2019-05-31] MEDS: RANOLAZINE E.R. 500 MG TABLET (FP) PO SCH ×2 (10:11→21:13)
[2019-05-31] MEDS: PANTOPRAZOLE 40 MG TABLET PO SCH (10:11)
[2019-05-31] MEDS: LISINOPRIL 5 MG TABLET (FP) PO SCH (10:11)
[2019-05-31] MEDS: ALLOPURINOL 100 MG TABLET (FP) PO SCH (10:11)
[2019-05-31] MEDS: traMADol HCL 50 MG TABLET PO PRN (11:22)
--- NOTE | 2019-05-31 11:39 | EKG ---
Test Reason : Blood Pressure : / mmHG Vent. Rate : 077 BPM Atrial Rate : 077 BPM P-R Int : 178 ms QRS Dur : 116 ms QT Int : 418 ms P-R-T Axes : 000 017 140 degrees QTc Int : 473 ms SINUS RHYTHM WITH OCCASIONAL and consecutive PREMATURE VENTRICULAR COMPLEXES LOW VOLTAGE QRS LEFT BUNDLE BRANCH BLOCK ABNORMAL ECG WHEN COMPARED WITH ECG OF 29-MAY-2019 15:20, PREMATURE VENTRICULAR COMPLEXES ARE NOW PRESENT Confirmed by Yahir Allen ([id number]) on 05/31/2019 11:39:00 AM Referred By: MAK Confirmed By:Yahir Allen
--- NOTE | 2019-05-31 16:21 | PN ---
Progress Note, Physician History of Present Illness: Pt is having Low Hb /HCt DC IV heparin PRBC 2 units Discussed with cardiology Demand Ishchemia - Current Medication List Current Medications: Active Medications Allopurinol (Zyloprim -) 100 mg PO DAILY [facility] Last Admin: 05/31/19 10:11 Dose: 100 mg Aspirin (Ecotrin -) 81 mg PO DAILY [facility] Atorvastatin Calcium (Lipitor -) 40 mg PO HS [facility] Last Admin: 05/30/19 22:01 Dose: 40 mg Enoxaparin Sodium (Lovenox -) 80 mg SQ Q12H [facility] Folic Acid (Folic Acid -) 1 mg PO DAILY [facility] Last Admin: 05/31/19 10:10 Dose: 1 mg Sodium Chloride (Normal Saline -) 1,000 mls @ 70 mls/hr IV ASDIR [facility] Isosorbide Mononitrate (Imdur -) 60 mg PO HS [facility] Last Admin: 05/30/19 22:01 Dose: 60 mg Lisinopril (Prinivil) 5 mg PO DAILY [facility] Last Admin: 05/31/19 10:11 Dose: 5 mg Loperamide HCl (Imodium -) 2 mg PO Q4H PRN PRN Reason: DIARRHEA Last Admin: 05/30/19 20:30 Dose: 2 mg Ondansetron HCl (Zofran Injection) 8 mg IVPUSH Q6H PRN PRN Reason: NAUSEA AND/OR VOMITING Last Admin: 05/30/19 21:11 Dose: 8 mg Pantoprazole Sodium (Protonix -) 40 mg PO DAILY [facility] Last Admin: 05/31/19 10:11 Dose: 40 mg Ranolazine (Ranexa -) 500 mg PO BID [facility] Last Admin: 05/31/19 10:11 Dose: 500 mg Tamsulosin HCl (Flomax -) 0.4 mg PO HS [facility] Last Admin: 05/30/19 22:01 Dose: 0.4 mg Tramadol HCl (Ultram -) 50 mg PO DAILY PRN PRN Reason: PAIN Last Admin: 05/31/19 11:22 Dose: 50 mg - Objective Vital Signs: Vital Signs Temperature 98.5 F 05/31/19 14:17 Pulse Rate 68 05/31/19 14:17 Respiratory Rate 19 05/31/19 14:17 Blood Pressure 134/62 05/31/19 14:17 O2 Sat by Pulse Oximetry (%) 97 05/31/19 09:00 Constitutional: Yes: No Distress, Calm Eyes: Yes: Conjunctiva Clear, EOM Intact HENT: Yes: Atraumatic, Normocephalic Neck: Yes: Supple, Trachea Midline Cardiovascular: Yes: Regular Rate and Rhythm, S1, S2 Respiratory: Yes: Regular, CTA Bilaterally Gastrointestinal: Yes: Normal Bowel Sounds, Soft Edema: No Peripheral Pulses WNL: Yes Neurological: Yes: Alert, Oriented, Cran Nerves II-XII Intact Labs: CBC, BMP 05/31/19 06:50 05/31/19 06:50 INR, PTT INR 1.83 (0.83-1.09) H 05/29/19 16:05 Problem List - Problems (1) Chemotherapy induced nausea and vomiting Code(s): R11.2 - NAUSEA WITH VOMITING, UNSPECIFIED; T45.1X5A - ADVERSE EFFECT OF ANTINEOPLASTIC AND IMMUNOSUP DRUGS, INIT (2) Diarrhea Code(s): R19.7 - DIARRHEA, UNSPECIFIED Qualifiers: Diarrhea type: unspecified type Qualified Code(s): R19.7 - Diarrhea, unspecified (3) Atypical chest pain Code(s): R07.89 - OTHER CHEST PAIN (4) Chronic diastolic (congestive) heart failure Code(s): I50.32 - CHRONIC DIASTOLIC (CONGESTIVE) HEART FAILURE (5) History of pancreatic surgery Code(s): Z98.890 - OTHER SPECIFIED POSTPROCEDURAL STATES (6) Hypomagnesemia Code(s): E83.42 - HYPOMAGNESEMIA (7) Ampulla of Vater mass Code(s): K83.8 - OTHER SPECIFIED DISEASES OF BILIARY TRACT (8) Anemia Code(s): D64.9 - ANEMIA, UNSPECIFIED (9) Anxiety Code(s): F41.9 - ANXIETY DISORDER, UNSPECIFIED (10) Dyspepsia Code(s): R10.13 - EPIGASTRIC PAIN (11) HTN (hypertension) Code(s): I10 - ESSENTIAL (PRIMARY) HYPERTENSION (12) Hematuria Code(s): R31.9 - HEMATURIA, UNSPECIFIED Qualifiers: Hematuria type: gross Qualified Code(s): R31.0 - Gross hematuria Assessment/Plan (1) Chemotherapy induced nausea and vomiting Code(s): R11.2 - NAUSEA WITH VOMITING, UNSPECIFIED; T45.1X5A - ADVERSE EFFECT OF ANTINEOPLASTIC AND IMMUNOSUP DRUGS, INIT (2) Chest pain Code(s): R07.9 - CHEST PAIN, UNSPECIFIED Qualifiers: Chest pain type: unspecified Qualified Code(s): R07.9 - Chest pain, unspecified (3) Coronary artery disease Code(s): I25.10 - ATHSCL HEART DISEASE OF [place] CORONARY ARTERY W/O ANG PCTRS (4) Diarrhea Code(s): R19.7 - DIARRHEA, UNSPECIFIED Qualifiers: Diarrhea type: unspecified type Qualified Code(s): R19.7 - Diarrhea, unspecified (5) History of pancreatic surgery Code(s): Z98.890 - OTHER SPECIFIED POSTPROCEDURAL STATES (6) Hypomagnesemia Code(s): E83.42 - HYPOMAGNESEMIA (7) Paroxysmal atrial fibrillation Code(s): I48.0 - PAROXYSMAL ATRIAL FIBRILLATION (8) Abnormal LFTs (liver function tests) Code(s): R94.5 - ABNORMAL RESULTS OF LIVER FUNCTION STUDIES (9) Chronic diastolic (congestive) heart failure Code(s): I50.32 - CHRONIC DIASTOLIC (CONGESTIVE) HEART FAILURE (10) Dyspepsia Code(s): R10.13 - EPIGASTRIC PAIN (11) HTN (hypertension) Code(s): I10 - ESSENTIAL (PRIMARY) HYPERTENSION (12) Hyperlipidemia Code(s): E78.5 - HYPERLIPIDEMIA, UNSPECIFIED (13) Hyperlipidemia Code(s): E78.5 - HYPERLIPIDEMIA, UNSPECIFIED
[2019-05-31] MEDS ORDERED: FUROSEMIDE 40 MG/4 ML INJECTABLE VIAL IVPUSH ONE (16:50)
[2019-05-31] MEDS: TAMSULOSIN HCL 0.4 MG CAP PO SCH (21:12)
[2019-05-31] MEDS: ENOXAPARIN NA (PORCINE) 80 MG/0.8 ML DISP.SYRIN SQ SCH (21:12)
[2019-05-31] MEDS: ISOSORBIDE MONONITRATE 60 MG TAB.SR.24H (FP) PO SCH (21:13)
[2019-05-31] MEDS: ATORVASTATIN CA 40 MG TABLET (FP) PO SCH (21:13)
--- NOTE | 2019-06-01 00:49 | PN ---
Progress Note (short form) - Note Progress Note: Patient seen and exmined Denies any complaints Last Vital Signs Temp Pulse Resp BP Pulse Ox 98.2 F 70 20 131/66 99 05/31/19 18:50 05/31/19 18:50 05/31/19 18:50 05/31/19 18:50 05/31/19 20:42 Cor: RSR, No murmurs, No gallops Lungs: Clear to P&A Abd: Soft, Normal bowel sounds, No organomegaly Ext:No significant edema Labs/MEds reviewed A/P 79Ms/p pylorus sparing Whipple for ampullary mass in Feb 2019 ([id number] moderately differentiated carcinoma of the ampulla), on adjuvant chemo with weekly gemcitabine and capecitabine since 05/19/19 (last capecitabine 3 days ago ) admitted with diarrhea and vomiting likely 2/2 capecitabine. - Please continue to hold capecitabine - IV hydration with monitoring of volume status - On Zofran, consider escalating anti-emetics if continues vomiting - Immodium for diarrhea Angina --? due to anemia Transfusing PRBCS Goal HCt is 30 Cardiology following On livenox/asa/ranexa
[2019-06-01 06:51] LABS: BASO % 0.2 % (0-2.0); HEMATOCRIT 27.5 % (35.4-49); HEMOGLOBIN 9.4 GM/dL (11.7-16.9); LYMPH % 24.8 % (8-40); MCH 30.3 pg (25.7-33.7); MEAN CELL VOLUME 89.2 fl (80-96); MONO % 2.5 % (3.8-10.2); NEUT % 70.5 % (42.8-82.8); PLATELET COUNT 79 K/MM3 (134-434); RBC 3.08 M/mm3 (4.00-5.60); WHITE BLOOD COUNT 2.4 K/mm3 (4.0-10.0)
[2019-06-01 07:15] LABS: BLOOD UREA NITROGEN 8.6 mg/dL (7-18); CALCIUM 7.3 mg/dL (8.5-10.1); CREATININE 0.7 mg/dL (0.55-1.3); POTASSIUM 3.5 mmol/L (3.5-5.1)
[2019-06-01] MEDS: ENOXAPARIN NA (PORCINE) 80 MG/0.8 ML DISP.SYRIN SQ SCH (08:44)
[2019-06-01] MEDS: RANOLAZINE E.R. 500 MG TABLET (FP) PO SCH ×2 (09:49→22:25)
[2019-06-01] MEDS: LISINOPRIL 5 MG TABLET (FP) PO SCH (09:49)
[2019-06-01] MEDS: PANTOPRAZOLE 40 MG TABLET PO SCH (09:49)
[2019-06-01] MEDS: FOLIC ACID 1 MG TABLET (FP) PO SCH (09:49)
[2019-06-01] MEDS: ALLOPURINOL 100 MG TABLET (FP) PO SCH (09:49)
[2019-06-01] MEDS ORDERED: ASPIRIN COATED 81 MG TABLET.EC PO SCH (10:00)
[2019-06-01 11:39] LABS: MAGNESIUM 1.5 mg/dL (1.8-2.4); PHOSPHOROUS 2.6 mg/dL (2.5-4.9)
[2019-06-01] MEDS: SODIUM CHLORIDE 1,000 ML IV SCH ×2 (12:30→23:29)
--- NOTE | 2019-06-01 14:25 | ECHO ---
Version: 1 Name: LYLE ANSARI Exam: Adult Echocardiogram Study Date: 06/01/2019, 10:01 AM Age: 79 Years MMode/2D Measurements & Calculations IVSd: 1.05 cm LVIDs: 4.6 cm LVIDd: 5.7 cm LVPWd: 1.01 cm ACS: 1.87 cm Ao root diam: 2.6 cm LA dimension: 4.5 cm Doppler Measurements & Calculations MV E max daniel: 43.4 cm/sec Med E/e': 12.4 MV A max daniel: 77.7 cm/sec Med Peak E' Daniel: 3.5 cm/sec MV E/A: 0.56 Lat E/e': 6.7 Lat Peak E' Daniel: 6.5 cm/sec MR max P.2 mmHg Ao max P.2 mmHg Ao mean P.2 mmHg Ao V2 max: 133.8 cm/sec Procedure The study was technically difficult with many images being suboptimal in quality. Left Ventricle Ejection Fraction = 30%. Grade I diastolic dysfunction, (abnormal relaxation pattern). There is posterolateral wall moderate hypokinesis. There is moderate apical wall hypokinesis. There is severe anterior wall hypokinesis. Right Ventricle The right ventricle is normal in size and function. Atria The left atrium is moderately dilated. Right atrial size is normal. Mitral Valve The mitral valve is normal in structure and function. Tricuspid Valve The tricuspid valve is normal in structure and function. There is mild tricuspid regurgitation. Aortic Valve There is moderate aortic sclerosis.;. No hemodynamically significant valvular aortic stenosis. Pulmonic Valve The pulmonic valve is normal in structure and function. Great Vessels The aortic root is normal size. Pericardium/Pleura There is no pericardial effusion. Summary Statements There is posterolateral wall moderate hypokinesis. There is moderate apical wall hypokinesis. There is severe anterior wall hypokinesis. Ejection Fraction = 30%. Moderately reduced LV systolic function. No valvular vegitations seen. This does not rule out endocarditis. The right ventricle is normal in size and function. Tutu Greenwood 06/01/2019, 2:24 PM Ordering Physician: Israel Cardenas Performed By: Zulay Ahmadi
--- NOTE | 2019-06-01 16:39 | PN ---
Progress Note, Physician Chief Complaint: Pt A&Ox3; no chest or abdominal pain. History of Present Illness: Pt is a 79 yr old man (rajiv Owusu) with past medical history of coronary artery disease, s/p CABG and coronary stents (latest coronary angiogram, 10/2018 at [facility]: no PCI required), paroxysmal A. fib on Eliquis, prostate CA , s/p Whipple's procedure (pancreaticoduodenectomy), hypertension, hyperlipidemia, GERD, hx urinary retention/UTI-->prolonged hospitalization;gout , overweight, relatively sedentary, who presents now with nausea, vomiting, diarrhea, and chest pain in the setting of recent IV chemotherapy. - Current Medication List Current Medications: Active Medications Allopurinol (Zyloprim -) 100 mg PO DAILY [facility] Last Admin: 06/01/19 09:49 Dose: 100 mg Aspirin (Ecotrin -) 81 mg PO DAILY [facility] Last Admin: 06/01/19 09:50 Dose: 81 mg Atorvastatin Calcium (Lipitor -) 40 mg PO [facility] Last Admin: 05/31/19 21:13 Dose: 40 mg Enoxaparin Sodium (Lovenox -) 80 mg SQ Q12H [facility] Last Admin: 06/01/19 08:44 Dose: 80 mg Folic Acid (Folic Acid -) 1 mg PO DAILY [facility] Last Admin: 06/01/19 09:49 Dose: 1 mg Sodium Chloride (Normal Saline -) 1,000 mls @ 70 mls/hr IV ASDIR [facility] Last Admin: 05/31/19 12:43 Dose: 70 mls/hr Isosorbide Mononitrate (Imdur -) 60 mg PO HS [facility] Last Admin: 05/31/19 21:13 Dose: 60 mg Lisinopril (Prinivil) 5 mg PO DAILY [facility] Last Admin: 06/01/19 09:49 Dose: 5 mg Loperamide HCl (Imodium -) 2 mg PO Q4H PRN PRN Reason: DIARRHEA Last Admin: 05/30/19 20:30 Dose: 2 mg Ondansetron HCl (Zofran Injection) 8 mg IVPUSH Q8H PRN PRN Reason: NAUSEA AND/OR VOMITING Pantoprazole Sodium (Protonix -) 40 mg PO DAILY [facility] Last Admin: 06/01/19 09:49 Dose: 40 mg Ranolazine (Ranexa -) 500 mg PO BID [facility] Last Admin: 06/01/19 09:49 Dose: 500 mg Tamsulosin HCl (Flomax -) 0.4 mg PO HS [facility] Last Admin: 05/31/19 21:12 Dose: 0.4 mg Tramadol HCl (Ultram -) 50 mg PO DAILY PRN PRN Reason: PAIN Last Admin: 05/31/19 11:22 Dose: 50 mg - Objective Vital Signs: Vital Signs Temperature 98.2 F 06/01/19 13:39 Pulse Rate 75 06/01/19 13:39 Respiratory Rate 16 06/01/19 13:39 Blood Pressure 115/56 L 06/01/19 13:39 O2 Sat by Pulse Oximetry (%) 98 06/01/19 09:00 Constitutional: Yes: Calm Eyes: Yes: WNL HENT: Yes: WNL Neck: Yes: WNL Cardiovascular: Yes: S1, S2 (spilt) Respiratory: Yes: Regular Gastrointestinal: Yes: Soft. No: Tenderness ...Rectal Exam: Yes: Deferred Genitourinary: No: Anuria Breast(s): Yes: WNL Edema: No Peripheral Pulses WNL: Yes Integumentary: Yes: Other (healed abdominal scar (Whipple's)) Neurological: Yes: Alert, Oriented, Weakness Psychiatric: Yes: WNL Labs: CBC, BMP 06/01/19 06:37 06/01/19 06:37 INR, PTT INR 1.83 (0.83-1.09) H 05/29/19 16:05 Abnormal Lab Results 05/31/19 06/01/19 06/01/19 11:35 06:37 06:37 WBC 2.4 L RBC 3.08 L Hgb 9.4 L Hct 27.5 L D RDW 17.0 H Plt Count 79 L D Monocytes % 2.5 L D Chloride 108 H Random Glucose 110 H Calcium 7.3 L Magnesium 1.5 L Free T4 1.41 H Crossmatch See Detail - ....Imaging Ultrasound: Report Reviewed (ECHO: "moderately" reduced LVEF (30%), with regional wall motion abnormalities) Problem List - Problems (1) Paroxysmal atrial fibrillation Assessment/Plan: On Lovenox until decision when to restart PO anticoagulation. Metoprolol 12.5 mg bid (tartrate) for HR control, reduced LVEF. Code(s): I48.0 - PAROXYSMAL ATRIAL FIBRILLATION (2) Acute on chronic systolic and diastolic heart failure, NYHA class 1 Assessment/Plan: ECHO: LVEF 30%, with regional wall motion abrnormailites; mild TR. Start metoprolol tartrate.12.5 mg bid Continue lisinopril 5 mg daily. Plan on starting spironolactone in the future if BP, BUN/Cr and electrolytes allow. Correct electrolytes. F/u BUN/Cr, electrolytes, daily weight, Is and Os. Code(s): I50.43 - ACUTE ON CHRONIC COMBINED SYSTOLIC AND DIASTOLIC HRT FAIL (3) Chemotherapy induced nausea and vomiting Code(s): R11.2 - NAUSEA WITH VOMITING, UNSPECIFIED; T45.1X5A - ADVERSE EFFECT OF ANTINEOPLASTIC AND IMMUNOSUP DRUGS, INIT (4) Chest pain Assessment/Plan: Hb 9.4. No chest pain. TNI 0.02-->0.04-->0.02. EKG: NSR; LBBB. Telemetry: no arrhythmias. On Lovenox at 1 mg/kg BW sc bid; on ASA 81 mg daily (CAD; PAF). F/u lipid profile (presently on atorvastatin 40 mg daily), and keep LDL < 70 mg/ dL. Code(s): R07.9 - CHEST PAIN, UNSPECIFIED Qualifiers: Chest pain type: unspecified Qualified Code(s): R07.9 - Chest pain, unspecified (5) Hypomagnesemia Assessment/Plan: Replete , and keep Mg 2.0-2.4 Keep K+ 4.0-4.5 Keep PO4 2.5-4.9 Code(s): E83.42 - HYPOMAGNESEMIA (6) Coronary artery disease Code(s): I25.10 - ATHSCL HEART DISEASE OF [place] CORONARY ARTERY W/O ANG PCTRS (7) History of pancreatic surgery Assessment/Plan: s/p Whipple's procedure. Code(s): Z98.890 - OTHER SPECIFIED POSTPROCEDURAL STATES (8) Anemia Code(s): D64.9 - ANEMIA, UNSPECIFIED
[2019-06-01] MEDS ORDERED: POTASSIUM CHLORIDE ORAL LIQUID 20 MEQ/15 ML PO ONE (16:52)
[2019-06-01] MEDS: MAGNESIUM SULF 50% (8.12 MEQ/2 ML-1 GM VIAL) IVPB SCH ×2 (17:29→19:04)
[2019-06-01] MEDS: METOPROLOL TARTRATE 25 MG TABLET (FP) PO SCH ×2 (17:29→22:26)
[2019-06-01] MEDS ORDERED: METOPROLOL TARTRATE 25 MG TABLET (FP) PO SCH (22:00)
[2019-06-01] MEDS: ASCORBIC ACID 500 MG TABLET (FP) PO SCH (22:25)
[2019-06-01] MEDS: ISOSORBIDE MONONITRATE 60 MG TAB.SR.24H (FP) PO SCH (22:25)
[2019-06-01] MEDS: TAMSULOSIN HCL 0.4 MG CAP PO SCH (22:25)
[2019-06-01] MEDS: ATORVASTATIN CA 40 MG TABLET (FP) PO SCH (22:25)
--- NOTE | 2019-06-01 22:34 | PN ---
Progress Note, Physician History of Present Illness: Pt had 2 units of PRBC No Vomittings /Diarrhoea Start the diet Oncologu Fu noted No chest pain - Current Medication List Current Medications: Active Medications Allopurinol (Zyloprim -) 100 mg PO DAILY [facility] Last Admin: 06/01/19 09:49 Dose: 100 mg Ascorbic Acid (Vitamin C -) 500 mg PO BID [facility] Aspirin (Asa -) 81 mg PO DAILY [facility] Atorvastatin Calcium (Lipitor -) 40 mg PO HS [facility] Last Admin: 05/31/19 21:13 Dose: 40 mg Folic Acid (Folic Acid -) 1 mg PO DAILY [facility] Last Admin: 06/01/19 09:49 Dose: 1 mg Sodium Chloride (Normal Saline -) 1,000 mls @ 70 mls/hr IV ASDIR [facility] Last Admin: 06/01/19 12:30 Dose: 70 mls/hr Isosorbide Mononitrate (Imdur -) 60 mg PO HS [facility] Last Admin: 05/31/19 21:13 Dose: 60 mg Lisinopril (Prinivil) 5 mg PO DAILY [facility] Last Admin: 06/01/19 09:49 Dose: 5 mg Loperamide HCl (Imodium -) 2 mg PO Q4H PRN PRN Reason: DIARRHEA Last Admin: 05/30/19 20:30 Dose: 2 mg Metoprolol Tartrate (Lopressor -) 12.5 mg PO BID [facility] Last Admin: 06/01/19 17:29 Dose: 12.5 mg Ondansetron HCl (Zofran Injection) 8 mg IVPUSH Q8H PRN PRN Reason: NAUSEA AND/OR VOMITING Pantoprazole Sodium (Protonix -) 40 mg PO DAILY [facility] Last Admin: 06/01/19 09:49 Dose: 40 mg Ranolazine (Ranexa -) 500 mg PO BID [facility] Last Admin: 06/01/19 09:49 Dose: 500 mg Tamsulosin HCl (Flomax -) 0.4 mg PO HS [facility] Last Admin: 05/31/19 21:12 Dose: 0.4 mg Tramadol HCl (Ultram -) 50 mg PO DAILY PRN PRN Reason: PAIN Last Admin: 05/31/19 11:22 Dose: 50 mg - Objective Vital Signs: Vital Signs Temperature 97.7 F 06/01/19 18:00 Pulse Rate 71 06/01/19 18:00 Respiratory Rate 18 06/01/19 18:00 Blood Pressure 137/75 06/01/19 18:00 O2 Sat by Pulse Oximetry (%) 98 06/01/19 09:00 Constitutional: Yes: Calm Eyes: Yes: Conjunctiva Clear, EOM Intact HENT: Yes: Atraumatic, Normocephalic Neck: Yes: Supple, Trachea Midline Cardiovascular: Yes: Regular Rate and Rhythm, S1, S2 Respiratory: Yes: Regular, CTA Bilaterally Gastrointestinal: Yes: Normal Bowel Sounds, Soft Edema: No Peripheral Pulses WNL: Yes Neurological: Yes: Alert, Oriented, Cran Nerves II-XII Intact Labs: CBC, BMP 06/01/19 06:37 06/01/19 06:37 INR, PTT INR 1.83 (0.83-1.09) H 05/29/19 16:05 Problem List - Problems (1) Chemotherapy induced nausea and vomiting Code(s): R11.2 - NAUSEA WITH VOMITING, UNSPECIFIED; T45.1X5A - ADVERSE EFFECT OF ANTINEOPLASTIC AND IMMUNOSUP DRUGS, INIT (2) Chest pain Code(s): R07.9 - CHEST PAIN, UNSPECIFIED Qualifiers: Chest pain type: unspecified Qualified Code(s): R07.9 - Chest pain, unspecified (3) Coronary artery disease Code(s): I25.10 - ATHSCL HEART DISEASE OF [place] CORONARY ARTERY W/O ANG PCTRS (4) Diarrhea Code(s): R19.7 - DIARRHEA, UNSPECIFIED Qualifiers: Diarrhea type: unspecified type Qualified Code(s): R19.7 - Diarrhea, unspecified (5) History of pancreatic surgery Code(s): Z98.890 - OTHER SPECIFIED POSTPROCEDURAL STATES (6) Hypomagnesemia Code(s): E83.42 - HYPOMAGNESEMIA (7) Paroxysmal atrial fibrillation Code(s): I48.0 - PAROXYSMAL ATRIAL FIBRILLATION (8) Abnormal LFTs (liver function tests) Code(s): R94.5 - ABNORMAL RESULTS OF LIVER FUNCTION STUDIES (9) Chronic diastolic (congestive) heart failure Code(s): I50.32 - CHRONIC DIASTOLIC (CONGESTIVE) HEART FAILURE (10) Dyspepsia Code(s): R10.13 - EPIGASTRIC PAIN (11) HTN (hypertension) Code(s): I10 - ESSENTIAL (PRIMARY) HYPERTENSION (12) Hyperlipidemia Code(s): E78.5 - HYPERLIPIDEMIA, UNSPECIFIED (13) Hyperlipidemia Code(s): E78.5 - HYPERLIPIDEMIA, UNSPECIFIED Assessment/Plan (1) Chemotherapy induced nausea and vomiting Code(s): R11.2 - NAUSEA WITH VOMITING, UNSPECIFIED; T45.1X5A - ADVERSE EFFECT OF ANTINEOPLASTIC AND IMMUNOSUP DRUGS, INIT (2) Chest pain Code(s): R07.9 - CHEST PAIN, UNSPECIFIED Qualifiers: Chest pain type: unspecified Qualified Code(s): R07.9 - Chest pain, unspecified (3) Coronary artery disease Code(s): I25.10 - ATHSCL HEART DISEASE OF [place] CORONARY ARTERY W/O ANG PCTRS (4) Diarrhea Code(s): R19.7 - DIARRHEA, UNSPECIFIED Qualifiers: Diarrhea type: unspecified type Qualified Code(s): R19.7 - Diarrhea, unspecified (5) History of pancreatic surgery Code(s): Z98.890 - OTHER SPECIFIED POSTPROCEDURAL STATES (6) Hypomagnesemia Code(s): E83.42 - HYPOMAGNESEMIA (7) Paroxysmal atrial fibrillation Code(s): I48.0 - PAROXYSMAL ATRIAL FIBRILLATION (8) Abnormal LFTs (liver function tests) Code(s): R94.5 - ABNORMAL RESULTS OF LIVER FUNCTION STUDIES (9) Chronic diastolic (congestive) heart failure Code(s): I50.32 - CHRONIC DIASTOLIC (CONGESTIVE) HEART FAILURE (10) Dyspepsia Code(s): R10.13 - EPIGASTRIC PAIN (11) HTN (hypertension) Code(s): I10 - ESSENTIAL (PRIMARY) HYPERTENSION (12) Hyperlipidemia Code(s): E78.5 - HYPERLIPIDEMIA, UNSPECIFIED (13) Hyperlipidemia Code(s): E78.5 - HYPERLIPIDEMIA, UNSPECIFIED S/P 2 units of PRBc doing well Pt already had 2 cardiac caths no new pathology Now NSR
[2019-06-02 07:41] LABS: BASO % 0.2 % (0-2.0); EOS % 3.9 % (0-4.5); HEMATOCRIT 28.9 % (35.4-49); HEMOGLOBIN 9.9 GM/dL (11.7-16.9); LYMPH % 22.5 % (8-40); MCH 30.3 pg (25.7-33.7); MCHC 34.3 g/dl (32.0-35.9); MEAN CELL VOLUME 88.4 fl (80-96); MEAN PLT VOLUME 7.8 fl (7.5-11.1); MONO % 5.2 % (3.8-10.2); NEUT % 68.2 % (42.8-82.8); PLATELET COUNT 74 K/MM3 (134-434); RBC 3.26 M/mm3 (4.00-5.60); RDW 16.9 % (11.9-15.9); WHITE BLOOD COUNT 2.8 K/mm3 (4.0-10.0)
[2019-06-02 08:06] LABS: BLOOD UREA NITROGEN 6.4 mg/dL (7-18); CREATININE 0.8 mg/dL (0.55-1.3)
[2019-06-02] MEDS: LISINOPRIL 5 MG TABLET (FP) PO SCH (09:13)
[2019-06-02] MEDS: RANOLAZINE E.R. 500 MG TABLET (FP) PO SCH ×2 (09:13→22:07)
[2019-06-02] MEDS: ASPIRIN 81 MG CHEWABLE TABLETS PO SCH (09:13)
[2019-06-02] MEDS: ASCORBIC ACID 500 MG TABLET (FP) PO SCH ×2 (09:13→22:07)
[2019-06-02] MEDS: METOPROLOL TARTRATE 25 MG TABLET (FP) PO SCH ×2 (09:14→22:07)
[2019-06-02] MEDS: ALLOPURINOL 100 MG TABLET (FP) PO SCH (09:14)
[2019-06-02] MEDS: PANTOPRAZOLE 40 MG TABLET PO SCH (09:14)
[2019-06-02] MEDS: FOLIC ACID 1 MG TABLET (FP) PO SCH (09:15)
--- NOTE | 2019-06-02 13:08 | PN ---
Progress Note (short form) - Note Progress Note: Covering DR Taylor \spoke with PMD Pt has stomatitis-- better after applying Neosporin tolerating po Vital Signs - 24 hr 06/01/19 06/01/19 06/01/19 13:39 18:00 21:00 Temperature 98.2 F 97.7 F Pulse Rate 75 71 Respiratory 16 18 Rate Blood Pressure 115/56 L 137/75 O2 Sat by Pulse 96 Oximetry (%) 06/01/19 06/02/19 06/02/19 22:00 02:00 06:00 Temperature 98.8 F 98.1 F 98.1 F Pulse Rate 72 66 66 Respiratory 18 18 18 Rate Blood Pressure 137/80 112/51 L 130/64 O2 Sat by Pulse Oximetry (%) 06/02/19 09:12 Temperature 98 F Pulse Rate 80 Respiratory 18 Rate Blood Pressure 118/54 L O2 Sat by Pulse Oximetry (%) Current Medications Generic Name Dose Route Start Last Admin Trade Name Freq PRN Reason Stop Dose Admin Allopurinol 100 mg 05/30/19 10:00 06/02/19 09:14 Zyloprim - PO 100 mg DAILY JORJE Administration Ascorbic Acid 500 mg 06/01/19 22:00 06/02/19 09:13 Vitamin C - PO 500 mg BID JORJE Administration Aspirin 81 mg 06/02/19 10:00 06/02/19 09:13 Asa - PO 81 mg DAILY JORJE Administration Atorvastatin Calcium 40 mg 05/29/19 22:00 06/01/19 22:25 Lipitor - PO 40 mg HS JORJE Administration Folic Acid 1 mg 05/30/19 10:00 06/02/19 09:15 Folic Acid - PO 1 mg DAILY JORJE Administration Sodium Chloride 1,000 mls @ 40 mls/hr 06/01/19 22:39 06/01/19 23:29 Normal Saline - IV 40 mls/hr ASDIR JORJE Administration Isosorbide Mononitrate 60 mg 05/29/19 22:00 06/01/19 22:25 Imdur - PO 60 mg HS JORJE Administration Lisinopril 5 mg 05/30/19 10:00 06/02/19 09:13 Prinivil PO 5 mg DAILY JORJE Administration Loperamide HCl 2 mg 05/29/19 18:06 05/30/19 20:30 Imodium - PO 2 mg Q4H PRN Administration DIARRHEA Metoprolol Tartrate 12.5 mg 06/01/19 17:00 06/02/19 09:14 Lopressor - PO 12.5 mg BID JORJE Administration Ondansetron HCl 8 mg 06/01/19 00:51 Zofran Injection IVPUSH Q8H PRN NAUSEA AND/OR VOMITING Pantoprazole Sodium 40 mg 05/30/19 10:00 06/02/19 09:14 Protonix - PO 40 mg DAILY JORJE Administration Ranolazine 500 mg 05/29/19 22:00 06/02/19 09:13 Ranexa - PO 500 mg BID JORJE Administration Tamsulosin HCl 0.4 mg 05/29/19 22:00 06/01/19 22:25 Flomax - PO 0.4 mg HS JORJE Administration Tramadol HCl 50 mg 05/29/19 18:06 05/31/19 11:22 Ultram - PO 50 mg DAILY PRN Administration PAIN Laboratory Results - last 24 hr 06/01/19 06/02/19 06/02/19 06:37 07:10 07:10 WBC 2.8 L RBC 3.26 L Hgb 9.9 L Hct 28.9 L MCV 88.4 MCH 30.3 MCHC 34.3 RDW 16.9 H Plt Count 74 L MPV 7.8 Absolute Neuts (auto) 1.9 Neutrophils % 68.2 Lymphocytes % 22.5 Monocytes % 5.2 D Eosinophils % 3.9 D Basophils % 0.2 Nucleated RBC % 0 PTT (Actin FS) 36.1 Sodium 137 Potassium 3.5 Chloride 108 H Carbon Dioxide 22 Anion Gap 8 BUN 8.6 Creatinine 0.7 Est GFR (CKD-EPI)AfAm 104.03 Est GFR (CKD-EPI)NonAf 89.76 Random Glucose 110 H Calcium 7.3 L Phosphorus 2.6 Magnesium 1.5 L Triglycerides 113 Cholesterol 94 Total LDL Cholesterol 43 HDL Cholesterol 36 L TSH 0.90 D Free T4 1.41 H 06/02/19 07:10 WBC RBC Hgb Hct MCV MCH MCHC RDW Plt Count MPV Absolute Neuts (auto) Neutrophils % Lymphocytes % Monocytes % Eosinophils % Basophils % Nucleated RBC % PTT (Actin FS) Sodium 136 Potassium 4.0 Chloride 106 Carbon Dioxide 25 Anion Gap 6 L BUN 6.4 L Creatinine 0.8 Est GFR (CKD-EPI)AfAm 98.47 Est GFR (CKD-EPI)NonAf 84.96 Random Glucose 124 H Calcium 8.0 L Phosphorus Magnesium Triglycerides Cholesterol Total LDL Cholesterol HDL Cholesterol TSH Free T4 Stomatitis, lips , oral mucosa S1 S2 RRR Lungs decreased\ Abd- soft, NT\ No edema a/p CHEST PAIN STOMATITIS ELEVATED TROPONINS-- DEMAND ISCHEMIA -- ANEMIA VOMITING /DIARRHEA-- DUE TO CHEMO-->RESOLVED -- has had previous cardiac cath -- would restart Eliquis if ok with Cardiology -- stomatits due to chemo -- pt tolerating diet -- physical therpy evaluation Problem List - Problems (1) Chemotherapy induced nausea and vomiting Code(s): R11.2 - NAUSEA WITH VOMITING, UNSPECIFIED; T45.1X5A - ADVERSE EFFECT OF ANTINEOPLASTIC AND IMMUNOSUP DRUGS, INIT (2) Chest pain Code(s): R07.9 - CHEST PAIN, UNSPECIFIED Qualifiers: Chest pain type: unspecified Qualified Code(s): R07.9 - Chest pain, unspecified (3) Coronary artery disease Code(s): I25.10 - ATHSCL HEART DISEASE OF [place] CORONARY ARTERY W/O ANG PCTRS (4) History of pancreatic surgery Code(s): Z98.890 - OTHER SPECIFIED POSTPROCEDURAL STATES (5) Paroxysmal atrial fibrillation Code(s): I48.0 - PAROXYSMAL ATRIAL FIBRILLATION (6) Pancytopenia Code(s): D61.818 - OTHER PANCYTOPENIA
--- NOTE | 2019-06-02 13:56 | PN ---
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 Arellano admitted with diarrhea, vomiting, and chest pain. Continues to have significant nausea and vomiting. Denies abdominal pain, fever, chills. PMH cabg lithotripsy prostate seeds Ongoing medical problems Afib diagnosed at the hospital during SFA [employer]PLANT 08/2015 and has been on coumadin since then 2015 CAD Coronary artery bypass graft SANTIAGO of left SFA August 11, 2014 Dr. Blanton SANTIAGO of left PDA July 07, 2014 Dr. Blanton dizziness Hyperlipidemia Hypertension Negative MIBI stress test 2013 [facility]. NSVT Pauses PCI SANTIAGO of p LCx March 30, 2015 Dr. Blanton PCI LCx 08/17/12 Franny [facility] Pancreatic CA s/p Whipple [facility] [address] post op awaiting chemo. PCI LCx 07/07/14 Dr. Blanton NURSE TRANSPLANT/stent right SFA 526/16 DR BLANTON Right SFA 100 occlusion July 07, 2014 Dr. Blanton s/p NURSE TRANSPLANT drug elluting balloon L SFA 2015 s/p NURSE TRANSPLANT left SFA 09/25/17 for left foot ulcer s/p urethral stricture after cystoscopy and urethrotomy the patient went into septic shock and was treated with antibiotics and was stabilized. October 2017 - Current Medication List Current Medications: Active Medications Allopurinol (Zyloprim -) 100 mg PO DAILY [facility] Last Admin: 06/02/19 09:14 Dose: 100 mg Ascorbic Acid (Vitamin C -) 500 mg PO BID [facility] Last Admin: 06/02/19 09:13 Dose: 500 mg Aspirin (Asa -) 81 mg PO DAILY [facility] Last Admin: 06/02/19 09:13 Dose: 81 mg Atorvastatin Calcium (Lipitor -) 40 mg PO HS [facility] Last Admin: 06/01/19 22:25 Dose: 40 mg Folic Acid (Folic Acid -) 1 mg PO DAILY [facility] Last Admin: 06/02/19 09:15 Dose: 1 mg Sodium Chloride (Normal Saline -) 1,000 mls @ 40 mls/hr IV ASDIR [facility] Last Admin: 06/01/19 23:29 Dose: 40 mls/hr Isosorbide Mononitrate (Imdur -) 60 mg PO HS [facility] Last Admin: 06/01/19 22:25 Dose: 60 mg Lisinopril (Prinivil) 5 mg PO DAILY [facility] Last Admin: 06/02/19 09:13 Dose: 5 mg Loperamide HCl (Imodium -) 2 mg PO Q4H PRN PRN Reason: DIARRHEA Last Admin: 05/30/19 20:30 Dose: 2 mg Metoprolol Tartrate (Lopressor -) 12.5 mg PO BID [facility] Last Admin: 06/02/19 09:14 Dose: 12.5 mg Multivitamins/Minerals (Certavite-Antioxidant Liquid) 15 ml PO DAILY [facility] Ondansetron HCl (Zofran Injection) 8 mg IVPUSH Q8H PRN PRN Reason: NAUSEA AND/OR VOMITING Pantoprazole Sodium (Protonix -) 40 mg PO DAILY [facility] Last Admin: 06/02/19 09:14 Dose: 40 mg Ranolazine (Ranexa -) 500 mg PO BID [facility] Last Admin: 06/02/19 09:13 Dose: 500 mg Tamsulosin HCl (Flomax -) 0.4 mg PO HS [facility] Last Admin: 06/01/19 22:25 Dose: 0.4 mg Tramadol HCl (Ultram -) 50 mg PO DAILY PRN PRN Reason: PAIN Last Admin: 05/31/19 11:22 Dose: 50 mg - Objective Vital Signs: Vital Signs Temperature 98 F 06/02/19 09:12 Pulse Rate 80 06/02/19 09:12 Respiratory Rate 18 06/02/19 09:12 Blood Pressure 118/54 L 06/02/19 09:12 O2 Sat by Pulse Oximetry (%) 96 06/01/19 21:00 Eyes: Yes: WNL, Conjunctiva Clear, EOM Intact HENT: Yes: WNL, Atraumatic, Normocephalic Neck: Yes: WNL, Supple, Trachea Midline Cardiovascular: Yes: WNL, Regular Rate and Rhythm Respiratory: Yes: WNL, Regular, CTA Bilaterally Gastrointestinal: Yes: WNL, Normal Bowel Sounds Genitourinary: Yes: WNL Musculoskeletal: Yes: WNL Extremities: Yes: WNL Edema: No Integumentary: Yes: WNL Neurological: Yes: WNL, Alert, Oriented ...Motor Strength: WNL Psychiatric: Yes: WNL Labs: CBC, BMP 06/02/19 07:10 06/02/19 07:10 INR, PTT INR 1.83 (0.83-1.09) H 05/29/19 16:05 Problem List - Problems (1) Chemotherapy induced nausea and vomiting Code(s): R11.2 - NAUSEA WITH VOMITING, UNSPECIFIED; T45.1X5A - ADVERSE EFFECT OF ANTINEOPLASTIC AND IMMUNOSUP DRUGS, INIT (2) Chest pain Code(s): R07.9 - CHEST PAIN, UNSPECIFIED Qualifiers: Chest pain type: unspecified Qualified Code(s): R07.9 - Chest pain, unspecified (3) Diarrhea Code(s): R19.7 - DIARRHEA, UNSPECIFIED Qualifiers: Diarrhea type: unspecified type Qualified Code(s): R19.7 - Diarrhea, unspecified (4) Nausea and vomiting Code(s): R11.2 - NAUSEA WITH VOMITING, UNSPECIFIED Qualifiers: Vomiting type: unspecified Vomiting Intractability: non-intractable Qualified Code(s): R11.2 - Nausea with vomiting, unspecified (5) KWAME (acute kidney injury) Code(s): N17.9 - ACUTE KIDNEY FAILURE, UNSPECIFIED (6) ASHD (arteriosclerotic heart disease) Code(s): I25.10 - ATHSCL HEART DISEASE OF [place] CORONARY ARTERY W/O ANG PCTRS (7) Abnormal LFTs (liver function tests) Code(s): R94.5 - ABNORMAL RESULTS OF LIVER FUNCTION STUDIES (8) Alkaline phosphatase elevation Code(s): R74.8 - ABNORMAL LEVELS OF OTHER SERUM ENZYMES (9) Ampulla of Vater mass Code(s): K83.8 - OTHER SPECIFIED DISEASES OF BILIARY TRACT (10) Anemia Code(s): D64.9 - ANEMIA, UNSPECIFIED (11) Anxiety Code(s): F41.9 - ANXIETY DISORDER, UNSPECIFIED (12) Atrial fibrillation Code(s): I48.91 - UNSPECIFIED ATRIAL FIBRILLATION (13) Atypical chest pain Code(s): R07.89 - OTHER CHEST PAIN (14) BPH (benign prostatic hyperplasia) Code(s): N40.0 - BENIGN PROSTATIC HYPERPLASIA WITHOUT LOWER URINRY TRACT SYMP (15) Chronic diastolic (congestive) heart failure Code(s): I50.32 - CHRONIC DIASTOLIC (CONGESTIVE) HEART FAILURE (16) Chronic lower back pain Code(s): M54.5 - LOW BACK PAIN; G89.29 - OTHER CHRONIC PAIN (17) Dilated bile duct Code(s): K83.8 - OTHER SPECIFIED DISEASES OF BILIARY TRACT (18) Dyspepsia Code(s): R10.13 - EPIGASTRIC PAIN (19) Gout Code(s): M10.9 - GOUT, UNSPECIFIED (20) HTN (hypertension) Code(s): I10 - ESSENTIAL (PRIMARY) HYPERTENSION (21) Hematuria Code(s): R31.9 - HEMATURIA, UNSPECIFIED Qualifiers: Hematuria type: gross Qualified Code(s): R31.0 - Gross hematuria (22) Herpes simplex Code(s): B00.9 - HERPESVIRAL INFECTION, UNSPECIFIED (23) History of colon polyps Code(s): Z86.010 - PERSONAL HISTORY OF COLONIC POLYPS (24) Hx of CABG Code(s): Z95.1 - PRESENCE OF AORTOCORONARY BYPASS GRAFT (25) Hyperlipidemia Code(s): E78.5 - HYPERLIPIDEMIA, UNSPECIFIED (26) Hyperlipidemia Code(s): E78.5 - HYPERLIPIDEMIA, UNSPECIFIED (27) MRSA bacteremia Code(s): R78.81 - BACTEREMIA (28) Obesity Code(s): E66.9 - OBESITY, UNSPECIFIED (29) PAD (peripheral artery disease) Code(s): I73.9 - PERIPHERAL VASCULAR DISEASE, UNSPECIFIED (30) Prophylactic measure Code(s): Z29.9 - ENCOUNTER FOR PROPHYLACTIC MEASURES, UNSPECIFIED (31) Prostate cancer Code(s): C61 - MALIGNANT NEOPLASM OF PROSTATE (32) SBO (small bowel obstruction) Code(s): K56.609 - UNSP INTESTNL OBST, UNSP TO PARTIAL VERSUS COMPLETE OBST (33) Sepsis Code(s): A41.9 - SEPSIS, UNSPECIFIED ORGANISM (34) Septic shock Code(s): A41.9 - SEPSIS, UNSPECIFIED ORGANISM; R65.21 - SEVERE SEPSIS WITH SEPTIC SHOCK (35) Supratherapeutic INR Code(s): R79.1 - ABNORMAL COAGULATION PROFILE (36) Unstable angina Code(s): I20.0 - UNSTABLE ANGINA (37) Urinary retention Code(s): R33.9 - RETENTION OF URINE, UNSPECIFIED (38) Urinary tract infection Code(s): N39.0 - URINARY TRACT INFECTION, SITE NOT SPECIFIED Qualifiers: Urinary tract infection type: acute cystitis Hematuria presence: with hematuria Qualified Code(s): N30.01 - Acute cystitis with hematuria Assessment/Plan - Problems (1) Paroxysmal atrial fibrillation Assessment/Plan: On Lovenox until decision when to restart PO anticoagulation. Metoprolol 12.5 mg bid (tartrate) for HR control, reduced LVEF. Code(s): I48.0 - PAROXYSMAL ATRIAL FIBRILLATION (2) Acute on chronic systolic and diastolic heart failure, NYHA class 1 Assessment/Plan: ECHO: LVEF 30%, with regional wall motion abrnormailites; mild TR. Start metoprolol tartrate.12.5 mg bid Continue lisinopril 5 mg daily. Plan on starting spironolactone in the future if BP, BUN/Cr and electrolytes allow. Correct electrolytes. F/u BUN/Cr, electrolytes, daily weight, Is and Os. Code(s): I50.43 - ACUTE ON CHRONIC COMBINED SYSTOLIC AND DIASTOLIC HRT FAIL (3) Chemotherapy induced nausea and vomiting Code(s): R11.2 - NAUSEA WITH VOMITING, UNSPECIFIED; T45.1X5A - ADVERSE EFFECT OF ANTINEOPLASTIC AND IMMUNOSUP DRUGS, INIT (4) Chest pain Assessment/Plan: Hb 9.4. No chest pain. TNI 0.02-->0.04-->0.02. EKG: NSR; LBBB. Telemetry: no arrhythmias. On Lovenox at 1 mg/kg BW sc bid; on ASA 81 mg daily (CAD; PAF). F/u lipid profile (presently on atorvastatin 40 mg daily), and keep LDL < 70 mg/ dL. Code(s): R07.9 - CHEST PAIN, UNSPECIFIED Qualifiers: Chest pain type: unspecified Qualified Code(s): R07.9 - Chest pain, unspecified (5) Hypomagnesemia Assessment/Plan: Replete , and keep Mg 2.0-2.4 Keep K+ 4.0-4.5 Keep PO4 2.5-4.9 Code(s): E83.42 - HYPOMAGNESEMIA (6) Coronary artery disease Code(s): I25.10 - ATHSCL HEART DISEASE OF [place] CORONARY ARTERY W/O ANG PCTRS (7) History of pancreatic surgery Assessment/Plan: s/p Whipple's procedure. Code(s): Z98.890 - OTHER SPECIFIED POSTPROCEDURAL STATES (8) Anemia Code(s): D64.9 - ANEMIA, UNSPECIFIED
[2019-06-02] MEDS ORDERED: PT OWN MED DRAWER 7, Y5N ONE (14:46)
[2019-06-02] MEDS: MULTIVIT-MINERALS ORAL LIQUID PO SCH (15:49)
--- NOTE | 2019-06-02 16:32 | EKG ---
Test Reason : Blood Pressure : / mmHG Vent. Rate : 072 BPM Atrial Rate : 072 BPM P-R Int : 186 ms QRS Dur : 128 ms QT Int : 444 ms P-R-T Axes : 040 032 114 degrees QTc Int : 486 ms NORMAL SINUS RHYTHM NON-SPECIFIC INTRA-VENTRICULAR CONDUCTION BLOCK ABNORMAL QRS-T ANGLE, CONSIDER PRIMARY T WAVE ABNORMALITY ABNORMAL ECG WHEN COMPARED WITH ECG OF 31-MAY-2019 02:19, PREMATURE VENTRICULAR COMPLEXES ARE NO LONGER PRESENT Confirmed by MD Anatoliy, Jef ([id number]) on 06/02/2019 4:31:50 PM Referred By: Lluvia CRAFT Confirmed By:Jef Cope MD
[2019-06-02] MEDS: ONDANSETRON 4 MG/2 ML VIAL IVPUSH PRN (18:47)
[2019-06-02] MEDS: ISOSORBIDE MONONITRATE 60 MG TAB.SR.24H (FP) PO SCH (22:07)
[2019-06-02] MEDS: TAMSULOSIN HCL 0.4 MG CAP PO SCH (22:07)
[2019-06-02] MEDS: ATORVASTATIN CA 40 MG TABLET (FP) PO SCH (22:07)
[2019-06-02] MEDS ORDERED: ONDANSETRON 4 MG/2 ML VIAL IVPUSH ONE (22:22)
[2019-06-03] MEDS ORDERED: PROCHLORPERAZINE INJECTION 10 MG/2 ML VIAL IVPB ONE ×2 (00:20→00:23)
[2019-06-03] MEDS ORDERED: NITROGLYCERIN SUBLINGUAL 1/150 0.4 MG TAB ONE (01:05)
[2019-06-03] MEDS: traMADol HCL 50 MG TABLET PO PRN (06:37)
[2019-06-03 07:03] LABS: HEMATOCRIT 26.4 % (35.4-49); HEMOGLOBIN 9.1 GM/dL (11.7-16.9); MCH 30.2 pg (25.7-33.7); MCHC 34.3 g/dl (32.0-35.9); MEAN CELL VOLUME 88.1 fl (80-96); MEAN PLT VOLUME 7.9 fl (7.5-11.1); PLATELET COUNT 63 K/MM3 (134-434); WHITE BLOOD COUNT 3.7 K/mm3 (4.0-10.0)
[2019-06-03 07:44] LABS: ALBUMIN 2.3 g/dl (3.4-5.0); BILIRUBIN,TOTAL 0.6 mg/dL (0.2-1); BLOOD UREA NITROGEN 11.6 mg/dL (7-18); CALCIUM 7.6 mg/dL (8.5-10.1); CREATININE 0.8 mg/dL (0.55-1.3); MAGNESIUM 1.8 mg/dL (1.8-2.4); POTASSIUM 3.7 mmol/L (3.5-5.1); TOT PROT 4.7 g/dl (6.4-8.2)
[2019-06-03] MEDS: SODIUM CHLORIDE 1,000 ML IV SCH ×2 (08:52→22:13)
[2019-06-03] MEDS ORDERED: PT OWN MED DRAWER 7, Y5N ONE (11:05)
[2019-06-03] MEDS: METOPROLOL TARTRATE 25 MG TABLET (FP) PO SCH ×2 (11:15→22:11)
[2019-06-03] MEDS: ASCORBIC ACID 500 MG TABLET (FP) PO SCH ×2 (11:15→22:12)
[2019-06-03] MEDS: PANTOPRAZOLE 40 MG TABLET PO SCH (11:15)
[2019-06-03] MEDS: RANOLAZINE E.R. 500 MG TABLET (FP) PO SCH ×2 (11:15→22:12)
[2019-06-03] MEDS: ASPIRIN 81 MG CHEWABLE TABLETS PO SCH (11:15)
[2019-06-03] MEDS: FOLIC ACID 1 MG TABLET (FP) PO SCH (11:16)
[2019-06-03] MEDS: LISINOPRIL 5 MG TABLET (FP) PO SCH (11:16)
[2019-06-03] MEDS: ALLOPURINOL 100 MG TABLET (FP) PO SCH (11:16)
[2019-06-03] MEDS: MULTIVIT-MINERALS ORAL LIQUID PO SCH (11:17)
--- NOTE | 2019-06-03 13:01 | PN ---
Problem List - Problems (1) Chemotherapy induced nausea and vomiting Code(s): R11.2 - NAUSEA WITH VOMITING, UNSPECIFIED; T45.1X5A - ADVERSE EFFECT OF ANTINEOPLASTIC AND IMMUNOSUP DRUGS, INIT (2) Chest pain Code(s): R07.9 - CHEST PAIN, UNSPECIFIED Qualifiers: Chest pain type: unspecified Qualified Code(s): R07.9 - Chest pain, unspecified (3) Coronary artery disease Code(s): I25.10 - ATHSCL HEART DISEASE OF [place] CORONARY ARTERY W/O ANG PCTRS (4) History of pancreatic surgery Code(s): Z98.890 - OTHER SPECIFIED POSTPROCEDURAL STATES (5) Paroxysmal atrial fibrillation Code(s): I48.0 - PAROXYSMAL ATRIAL FIBRILLATION (6) Pancytopenia Code(s): D61.818 - OTHER PANCYTOPENIA
--- NOTE | 2019-06-03 15:13 | EKG ---
Test Reason : Blood Pressure : / mmHG Vent. Rate : 066 BPM Atrial Rate : 066 BPM P-R Int : 166 ms QRS Dur : 124 ms QT Int : 452 ms P-R-T Axes : -18 046 104 degrees QTc Int : 473 ms SINUS RHYTHM WITH OCCASIONAL PREMATURE VENTRICULAR COMPLEXES NON-SPECIFIC INTRA-VENTRICULAR CONDUCTION DELAY NONSPECIFIC ST AND T WAVE ABNORMALITY ABNORMAL ECG WHEN COMPARED WITH ECG OF 02-JUN-2019 15:44, PREMATURE VENTRICULAR COMPLEXES ARE NOW PRESENT Confirmed by DARLING ORTIZ MD ([id number]) on 06/03/2019 3:13:23 PM Referred By: Confirmed By:DARLING ORTIZ MD
[2019-06-03] MEDS ORDERED: MAGNESIUM OXIDE 400 MG TABLET (FP) PO ONE (15:51)
[2019-06-03] MEDS ORDERED: POTASSIUM CHLORIDE TABS 20 MEQ TABLET.ER (FP) PO ONE (15:51)
[2019-06-03] MEDS ORDERED: ISOSORBIDE MONONITRATE 30 MG TAB.SR.24H (FP) PO ONE ×2 (15:52→22:00)
[2019-06-03] MEDS ORDERED: ISOSORBIDE MONONITRATE 60 MG TAB.SR.24H (FP) PO SCH (15:53)
--- NOTE | 2019-06-03 15:57 | PN ---
Progress Note, Physician Chief Complaint: Pt A&Ox3; had left lower anterior chest tightness (moderate intensity) with nausea and vomiting last night that lasted about 3 hours. History of Present Illness: Pt is a 79 yr old man (rajiv Owusu) with past medical history of coronary artery disease, s/p CABG and coronary stents (latest coronary angiogram, 10/2018 at [facility]: no PCI required), paroxysmal A. fib on Eliquis, prostate CA , s/p Whipple's procedure (pancreaticoduodenectomy), hypertension, hyperlipidemia, GERD, hx urinary retention/UTI-->prolonged hospitalization;gout , overweight, relatively sedentary, who presents now with nausea, vomiting, diarrhea, and chest pain in the setting of recent IV chemotherapy. - Current Medication List Current Medications: Active Medications Allopurinol (Zyloprim -) 100 mg PO DAILY [facility] Last Admin: 06/03/19 11:16 Dose: 100 mg Ascorbic Acid (Vitamin C -) 500 mg PO BID [facility] Last Admin: 06/03/19 11:15 Dose: 500 mg Aspirin (Asa -) 81 mg PO DAILY [facility] Last Admin: 06/03/19 11:15 Dose: 81 mg Atorvastatin Calcium (Lipitor -) 40 mg PO HS [facility] Last Admin: 06/02/19 22:07 Dose: 40 mg Folic Acid (Folic Acid -) 1 mg PO DAILY [facility] Last Admin: 06/03/19 11:16 Dose: 1 mg Sodium Chloride (Normal Saline -) 1,000 mls @ 40 mls/hr IV ASDIR [facility] Last Admin: 06/03/19 08:52 Dose: Not Given Isosorbide Mononitrate (Imdur -) 30 mg PO ONCE ONE Stop: 06/03/19 15:53 Isosorbide Mononitrate (Imdur -) 90 mg PO [facility] Lisinopril (Prinivil) 5 mg PO DAILY [facility] Last Admin: 06/03/19 11:16 Dose: 5 mg Loperamide HCl (Imodium -) 2 mg PO Q4H PRN PRN Reason: DIARRHEA Last Admin: 05/30/19 20:30 Dose: 2 mg Magnesium Oxide (Mag-Ox -) 400 mg PO ONCE ONE Stop: 06/03/19 15:52 Metoprolol Tartrate (Lopressor -) 12.5 mg PO BID [facility] Last Admin: 06/03/19 11:15 Dose: 12.5 mg Multivitamins/Minerals (Certavite-Antioxidant Liquid) 15 ml PO DAILY [facility] Last Admin: 06/03/19 11:17 Dose: 15 ml Ondansetron HCl (Zofran Injection) 8 mg IVPUSH Q8H PRN PRN Reason: NAUSEA AND/OR VOMITING Last Admin: 06/02/19 18:47 Dose: 8 mg Pantoprazole Sodium (Protonix -) 40 mg PO DAILY [facility] Last Admin: 06/03/19 11:15 Dose: 40 mg Potassium Chloride (K-Dur -) 20 meq PO ONCE ONE Stop: 06/03/19 15:52 Ranolazine (Ranexa -) 500 mg PO BID [facility] Last Admin: 06/03/19 11:15 Dose: 500 mg Tamsulosin HCl (Flomax -) 0.4 mg PO HS [facility] Last Admin: 06/02/19 22:07 Dose: 0.4 mg Tramadol HCl (Ultram -) 50 mg PO DAILY PRN PRN Reason: PAIN Last Admin: 06/03/19 06:37 Dose: 50 mg - Objective Vital Signs: Vital Signs Temperature 98.1 F 06/03/19 14:26 Pulse Rate 68 06/03/19 14:26 Respiratory Rate 20 06/03/19 14:26 Blood Pressure 136/74 06/03/19 14:26 O2 Sat by Pulse Oximetry (%) 96 06/03/19 09:00 Constitutional: Yes: No Distress Eyes: Yes: WNL HENT: Yes: WNL Neck: Yes: WNL Cardiovascular: Yes: S1, S2 Respiratory: Yes: Regular Gastrointestinal: Yes: Soft ...Rectal Exam: Yes: Deferred Genitourinary: No: Anuria Breast(s): Yes: WNL Musculoskeletal: Yes: Muscle Weakness Extremities: Yes: Cool Edema: No Peripheral Pulses WNL: No Peripheral Pulses: Left Doralis Pedis: 1+, Right Dorsalis Pedis: 1+ Integumentary: Yes: Venous Stasis Changes Neurological: Yes: Alert, Oriented, Weakness Psychiatric: Yes: Alert, Oriented Labs: CBC, BMP 06/03/19 05:40 06/03/19 05:40 INR, PTT INR 1.83 (0.83-1.09) H 05/29/19 16:05 Abnormal Lab Results 05/31/19 06/03/19 06/03/19 11:35 05:40 05:40 WBC 3.7 L RBC 3.00 L Hgb 9.1 L Hct 26.4 L RDW 17.0 H Plt Count 63 L Chloride 109 H Anion Gap 7 L Random Glucose 127 H Calcium 7.6 L AST 43 H Alkaline Phosphatase 376 H Total Protein 4.7 L Albumin 2.3 L Crossmatch See Detail - ....Imaging EKG: Image Reviewed (NSR; APCs; nonspecific IVCD) Problem List - Problems (1) Paroxysmal atrial fibrillation Assessment/Plan: Off anticoagulatnt (s/p PRBCS). On metoprolol 12.5 mg bid (tartrate) for HR control, reduced LVEF. EKG and telemetry: NSR. Code(s): I48.0 - PAROXYSMAL ATRIAL FIBRILLATION (2) Acute on chronic systolic and diastolic heart failure, NYHA class 1 Assessment/Plan: ECHO: LVEF 30%, with regional wall motion abrnormailites; mild TR. Started metoprolol tartrate.12.5 mg bid Continue lisinopril 5 mg daily. Plan on starting spironolactone in the future if BP, BUN/Cr and electrolytes allow. Correct electrolytes. F/u BUN/Cr, electrolytes, daily weight, Is and Os. Code(s): I50.43 - ACUTE ON CHRONIC COMBINED SYSTOLIC AND DIASTOLIC HRT FAIL (3) Chemotherapy induced nausea and vomiting Code(s): R11.2 - NAUSEA WITH VOMITING, UNSPECIFIED; T45.1X5A - ADVERSE EFFECT OF ANTINEOPLASTIC AND IMMUNOSUP DRUGS, INIT (4) Chest pain Assessment/Plan: Hb 9.4. No chest pain. TNI 0.02-->0.04-->0.02. EKG: NSR; LBBB. Telemetry: no arrhythmias. On ASA 81 mg daily. On atorvastatin; LDL cholesterol 43 mg/dL. Code(s): R07.9 - CHEST PAIN, UNSPECIFIED Qualifiers: Chest pain type: unspecified Qualified Code(s): R07.9 - Chest pain, unspecified (5) Hypomagnesemia Assessment/Plan: Replete , and keep Mg 2.0-2.4 Keep K+ 4.0-4.5 Keep PO4 2.5-4.9 Code(s): E83.42 - HYPOMAGNESEMIA (6) Coronary artery disease Code(s): I25.10 - ATHSCL HEART DISEASE OF [place] CORONARY ARTERY W/O ANG PCTRS (7) History of pancreatic surgery Assessment/Plan: s/p Whipple's procedure. s/p PRBCs. Code(s): Z98.890 - OTHER SPECIFIED POSTPROCEDURAL STATES (8) Anemia Code(s): D64.9 - ANEMIA, UNSPECIFIED
[2019-06-03] MEDS ORDERED: ISOSORBIDE MONONITRATE 60 MG TAB.SR.24H (FP) PO ONE (22:00)
[2019-06-03] MEDS: BISACODYL 5 MG TABLET.DR (FP) PO PRN (22:11)
[2019-06-03] MEDS: ATORVASTATIN CA 40 MG TABLET (FP) PO SCH (22:12)
[2019-06-03] MEDS: ISOSORBIDE MONONITRATE 30 MG, ISOSORBIDE MONONITRATE 60 MG PO SCH (22:12)
[2019-06-03] MEDS: TAMSULOSIN HCL 0.4 MG CAP PO SCH (22:12)
[2019-06-04 03:41] LABS: PHOSPHOROUS 2.9 mg/dL (2.5-4.9)
[2019-06-04 08:12] LABS: HEMATOCRIT 27.9 % (35.4-49); HEMOGLOBIN 9.5 GM/dL (11.7-16.9); MCH 30.2 pg (25.7-33.7); MEAN CELL VOLUME 88.9 fl (80-96); MEAN PLT VOLUME 8.3 fl (7.5-11.1); PLATELET COUNT 73 K/MM3 (134-434); RBC 3.14 M/mm3 (4.00-5.60); RDW 16.5 % (11.9-15.9); WHITE BLOOD COUNT 3.9 K/mm3 (4.0-10.0)
[2019-06-04 08:43] LABS: BLOOD UREA NITROGEN 12.8 mg/dL (7-18); CALCIUM 7.7 mg/dL (8.5-10.1); CREATININE 0.7 mg/dL (0.55-1.3); MAGNESIUM 1.8 mg/dL (1.8-2.4); PHOSPHOROUS 3.4 mg/dL (2.5-4.9); POTASSIUM 3.8 mmol/L (3.5-5.1)
[2019-06-04] MEDS ORDERED: PT OWN MED DRAWER 7, Y5N ONE (09:32)
[2019-06-04] MEDS: FOLIC ACID 1 MG TABLET (FP) PO SCH (09:37)
[2019-06-04] MEDS: ALLOPURINOL 100 MG TABLET (FP) PO SCH (09:37)
[2019-06-04] MEDS: RANOLAZINE E.R. 500 MG TABLET (FP) PO SCH ×2 (09:37→21:17)
[2019-06-04] MEDS: ASPIRIN 81 MG CHEWABLE TABLETS PO SCH (09:37)
[2019-06-04] MEDS: METOPROLOL TARTRATE 25 MG TABLET (FP) PO SCH ×2 (09:37→21:16)
[2019-06-04] MEDS: PANTOPRAZOLE 40 MG TABLET PO SCH (09:38)
[2019-06-04] MEDS: ASCORBIC ACID 500 MG TABLET (FP) PO SCH ×2 (09:39→21:17)
[2019-06-04] MEDS: LISINOPRIL 5 MG TABLET (FP) PO SCH (09:39)
[2019-06-04] MEDS: MULTIVIT-MINERALS ORAL LIQUID PO SCH (09:39)
[2019-06-04] MEDS: POLYETHYLENE GLYCOL 3350 119 GM BTL PO SCH (09:40)
--- NOTE | 2019-06-04 10:25 | PN ---
Progress Note (short form) - Note Progress Note: pt seen/ examined chart is reviewed feels better looks weak nausea better Vital Signs Temp 98.2 F 06/04/19 06:29 Pulse 65 06/04/19 06:29 Resp 18 06/04/19 06:29 BP 113/62 06/04/19 06:29 Pulse Ox 96 06/03/19 21:00 Intake & Output 06/03/19 06/03/19 06/04/19 11:59 23:59 11:59 Intake Total 383 647 6609 Output Total 200 400 350 Balance 240 160 750 Intake: IV 440 320 480 Normal Saline - 1,000 ml 440 320 480 @ 40 mls/hr IV ASDIR [facility] Rx#:[id number] Oral 240 620 Output: Urine 200 400 350 Void 200 400 350 Other: Voiding Method Urinal Urinal Urinal Bowel Movement No No Active Medications Allopurinol (Zyloprim -) 100 mg PO DAILY [facility] Last Admin: 06/04/19 09:37 Dose: 100 mg Ascorbic Acid (Vitamin C -) 500 mg PO BID [facility] Last Admin: 06/04/19 09:39 Dose: 500 mg Aspirin (Asa -) 81 mg PO DAILY [facility] Last Admin: 06/04/19 09:37 Dose: 81 mg Atorvastatin Calcium (Lipitor -) 40 mg PO HS [facility] Last Admin: 06/03/19 22:12 Dose: 40 mg Bisacodyl (Dulcolax -) 5 mg PO DAILY PRN PRN Reason: CONSTIPATION Last Admin: 06/03/19 22:11 Dose: 5 mg Folic Acid (Folic Acid -) 1 mg PO DAILY [facility] Last Admin: 06/04/19 09:37 Dose: 1 mg Sodium Chloride (Normal Saline -) 1,000 mls @ 40 mls/hr IV ASDIR [facility] Last Admin: 06/03/19 22:13 Dose: 40 mls/hr Isosorbide Mononitrate 30 mg/ (Isosorbide Mononitrate 60 mg) 90 mg PO HS [facility] Last Admin: 06/03/19 22:12 Dose: 90 mg Lisinopril (Prinivil) 5 mg PO DAILY [facility] Last Admin: 06/04/19 09:39 Dose: 5 mg Loperamide HCl (Imodium -) 2 mg PO Q4H PRN PRN Reason: DIARRHEA Last Admin: 05/30/19 20:30 Dose: 2 mg Metoprolol Tartrate (Lopressor -) 12.5 mg PO BID [facility] Last Admin: 06/04/19 09:37 Dose: 12.5 mg Multivitamins/Minerals (Certavite-Antioxidant Liquid) 15 ml PO DAILY [facility] Last Admin: 06/04/19 09:39 Dose: 15 ml Ondansetron HCl (Zofran Injection) 8 mg IVPUSH Q8H PRN PRN Reason: NAUSEA AND/OR VOMITING Last Admin: 06/02/19 18:47 Dose: 8 mg Pantoprazole Sodium (Protonix -) 40 mg PO DAILY [facility] Last Admin: 06/04/19 09:38 Dose: 40 mg Polyethylene Glycol (Miralax (For Daily Use) -) 17 gm PO DAILY [facility] Last Admin: 06/04/19 09:40 Dose: 17 gm Ranolazine (Ranexa -) 500 mg PO BID [facility] Last Admin: 06/04/19 09:37 Dose: 500 mg Tamsulosin HCl (Flomax -) 0.4 mg PO HS [facility] Last Admin: 06/03/19 22:12 Dose: 0.4 mg Tramadol HCl (Ultram -) 50 mg PO DAILY PRN PRN Reason: PAIN Last Admin: 06/03/19 06:37 Dose: 50 mg CBC, BMP 06/04/19 06:35 06/04/19 06:35 Physical exam alert and awake Comfortable But looks weak Stomatitis, lips , oral mucosa S1 S2 RRR Lungs decreased Abd- soft, NT No edema a/p CHEST PAIN STOMATITIS ELEVATED TROPONINS-- DEMAND ISCHEMIA -- ANEMIA VOMITING /DIARRHEA-- DUE TO CHEMO-->RESOLVED Problem List - Problems (1) Chemotherapy induced nausea and vomiting Code(s): R11.2 - NAUSEA WITH VOMITING, UNSPECIFIED; T45.1X5A - ADVERSE EFFECT OF ANTINEOPLASTIC AND IMMUNOSUP DRUGS, INIT (2) Chest pain Code(s): R07.9 - CHEST PAIN, UNSPECIFIED Qualifiers: Chest pain type: unspecified Qualified Code(s): R07.9 - Chest pain, unspecified (3) Coronary artery disease Code(s): I25.10 - ATHSCL HEART DISEASE OF [place] CORONARY ARTERY W/O ANG PCTRS (4) History of pancreatic surgery Code(s): Z98.890 - OTHER SPECIFIED POSTPROCEDURAL STATES (5) Paroxysmal atrial fibrillation Code(s): I48.0 - PAROXYSMAL ATRIAL FIBRILLATION (6) Pancytopenia Code(s): D61.818 - OTHER PANCYTOPENIA overall better Continue same PT f/u labs d/c planning -- if better - tomorrow
[2019-06-04] MEDS: ONDANSETRON 4 MG/2 ML VIAL IVPUSH PRN (11:37)
--- NOTE | 2019-06-04 12:24 | EKG ---
Test Reason : Blood Pressure : / mmHG Vent. Rate : 066 BPM Atrial Rate : 066 BPM P-R Int : 156 ms QRS Dur : 128 ms QT Int : 414 ms P-R-T Axes : 001 012 151 degrees QTc Int : 434 ms NORMAL SINUS RHYTHM LEFT BUNDLE BRANCH BLOCK CANNOT RULE OUT INFERIOR INFARCT , AGE UNDETERMINED NONSPECIFIC ST ABNORMALITY ABNORMAL ECG WHEN COMPARED WITH ECG OF 03-JUN-2019 00:54, PREMATURE VENTRICULAR COMPLEXES ARE NO LONGER PRESENT Confirmed by CARLOS LIN MD ([id number]) on 06/04/2019 12:24:00 PM Referred By: JESSICA ECHEVARRIA DR Confirmed By:CARLOS LIN MD
[2019-06-04] MEDS ORDERED: NITROGLYCERIN SUBLINGUAL 1/150 0.4 MG TAB SL ONE (14:30)
[2019-06-04] MEDS: BISACODYL 5 MG TABLET.DR (FP) PO PRN (14:59)
--- NOTE | 2019-06-04 15:02 | EKG ---
Test Reason : Blood Pressure : / mmHG Vent. Rate : 063 BPM Atrial Rate : 063 BPM P-R Int : 172 ms QRS Dur : 114 ms QT Int : 424 ms P-R-T Axes : 010 034 117 degrees QTc Int : 433 ms SINUS RHYTHM WITH OCCASIONAL PREMATURE VENTRICULAR COMPLEXES INCOMPLETE LEFT BUNDLE BRANCH BLOCK NONSPECIFIC ST AND T WAVE ABNORMALITY ABNORMAL ECG WHEN COMPARED WITH ECG OF 04-JUN-2019 09:03, PREMATURE VENTRICULAR COMPLEXES ARE NOW PRESENT MINIMAL CRITERIA FOR INFERIOR INFARCT ARE NO LONGER PRESENT Confirmed by CARLOS LIN MD ([id number]) on 06/04/2019 3:01:59 PM Referred By: Confirmed By:CARLOS LIN MD
--- NOTE | 2019-06-04 15:25 | PN ---
Progress Note, Physician Chief Complaint: Pt A&Ox3; slept well; no chest pain, dyspnea, or palpitations. History of Present Illness: Pt is a 79 yr old man (rajiv Owusu) with past medical history of coronary artery disease, s/p CABG and coronary stents (latest coronary angiogram, 10/2018 at [facility]: no PCI required), paroxysmal A. fib on Eliquis, prostate CA , s/p Whipple's procedure (pancreaticoduodenectomy), hypertension, hyperlipidemia, GERD, hx urinary retention/UTI-->prolonged hospitalization;gout , overweight, relatively sedentary, who presents now with nausea, vomiting, diarrhea, and chest pain in the setting of recent IV chemotherapy. - Current Medication List Current Medications: Active Medications Allopurinol (Zyloprim -) 100 mg PO DAILY [facility] Last Admin: 06/04/19 09:37 Dose: 100 mg Ascorbic Acid (Vitamin C -) 500 mg PO BID [facility] Last Admin: 06/04/19 09:39 Dose: 500 mg Aspirin (Asa -) 81 mg PO DAILY [facility] Last Admin: 06/04/19 09:37 Dose: 81 mg Atorvastatin Calcium (Lipitor -) 40 mg PO HS [facility] Last Admin: 06/03/19 22:12 Dose: 40 mg Bisacodyl (Dulcolax -) 5 mg PO DAILY PRN PRN Reason: CONSTIPATION Last Admin: 06/04/19 14:59 Dose: 5 mg Folic Acid (Folic Acid -) 1 mg PO DAILY [facility] Last Admin: 06/04/19 09:37 Dose: 1 mg Sodium Chloride (Normal Saline -) 1,000 mls @ 40 mls/hr IV ASDIR [facility] Last Admin: 06/03/19 22:13 Dose: 40 mls/hr Isosorbide Mononitrate 30 mg/ (Isosorbide Mononitrate 60 mg) 90 mg PO HS [facility] Last Admin: 06/03/19 22:12 Dose: 90 mg Lisinopril (Prinivil) 5 mg PO DAILY [facility] Last Admin: 06/04/19 09:39 Dose: 5 mg Loperamide HCl (Imodium -) 2 mg PO Q4H PRN PRN Reason: DIARRHEA Last Admin: 05/30/19 20:30 Dose: 2 mg Metoprolol Tartrate (Lopressor -) 12.5 mg PO BID [facility] Last Admin: 06/04/19 09:37 Dose: 12.5 mg Multivitamins/Minerals (Certavite-Antioxidant Liquid) 15 ml PO DAILY [facility] Last Admin: 06/04/19 09:39 Dose: 15 ml Ondansetron HCl (Zofran Injection) 8 mg IVPUSH Q8H PRN PRN Reason: NAUSEA AND/OR VOMITING Last Admin: 06/04/19 11:37 Dose: 8 mg Pantoprazole Sodium (Protonix -) 40 mg PO DAILY [facility] Last Admin: 06/04/19 09:38 Dose: 40 mg Polyethylene Glycol (Miralax (For Daily Use) -) 17 gm PO DAILY [facility] Last Admin: 06/04/19 09:40 Dose: 17 gm Ranolazine (Ranexa -) 500 mg PO BID [facility] Last Admin: 06/04/19 09:37 Dose: 500 mg Tamsulosin HCl (Flomax -) 0.4 mg PO HS [facility] Last Admin: 06/03/19 22:12 Dose: 0.4 mg Tramadol HCl (Ultram -) 50 mg PO DAILY PRN PRN Reason: PAIN Last Admin: 06/03/19 06:37 Dose: 50 mg - Objective Vital Signs: Vital Signs Temperature 98.3 F 06/04/19 14:00 Pulse Rate 64 06/04/19 15:01 Respiratory Rate 20 06/04/19 15:01 Blood Pressure 127/72 06/04/19 15:01 O2 Sat by Pulse Oximetry (%) 96 06/03/19 21:00 Constitutional: Yes: Calm Eyes: Yes: WNL HENT: Yes: WNL Neck: Yes: WNL Cardiovascular: Yes: S1, S2 (split) Respiratory: Yes: Regular Gastrointestinal: Yes: Soft. No: Tenderness ...Rectal Exam: Yes: Deferred Genitourinary: No: Anuria Breast(s): Yes: WNL Musculoskeletal: Yes: Muscle Weakness Extremities: Yes: Cool Edema: No Peripheral Pulses WNL: Yes Integumentary: Yes: Pressure Ulcer Wound/Incision: Yes: Other (healed abdominal scar (Whipple's)) Neurological: Yes: Alert, Oriented, Weakness Psychiatric: Yes: WNL Labs: CBC, BMP 06/04/19 06:35 06/04/19 06:35 INR, PTT INR 1.83 (0.83-1.09) H 05/29/19 16:05 Abnormal Lab Results 06/03/19 06/04/19 06/04/19 05:40 06:35 06:35 WBC 3.9 L RBC 3.14 L Hgb 9.5 L Hct 27.9 L RDW 16.5 H Plt Count 73 L Chloride 109 H 108 H Anion Gap 7 L 6 L Random Glucose 127 H 112 H Calcium 7.6 L 7.7 L AST 43 H Alkaline Phosphatase 376 H Creatine Kinase Total Protein 4.7 L Albumin 2.3 L 06/04/19 15:10 WBC RBC Hgb Hct RDW Plt Count Chloride Anion Gap Random Glucose Calcium AST Alkaline Phosphatase Creatine Kinase 22 L Total Protein Albumin Problem List - Problems (1) Paroxysmal atrial fibrillation Assessment/Plan: Off anticoagulatnt (s/p PRBCS). On metoprolol 12.5 mg bid (tartrate) for HR control, reduced LVEF. EKG and telemetry: NSR since admission. Code(s): I48.0 - PAROXYSMAL ATRIAL FIBRILLATION (2) Acute on chronic systolic and diastolic heart failure, NYHA class 1 Assessment/Plan: ECHO 05/2019: LVEF 30%, with regional wall motion abrnormailites; mild TR. Started metoprolol tartrate.12.5 mg bid Continue lisinopril 5 mg daily. Plan on starting spironolactone in the future if BP, BUN/Cr and electrolytes allow. Correct electrolytes. F/u BUN/Cr, electrolytes, daily weight, Is and Os. Code(s): I50.43 - ACUTE ON CHRONIC COMBINED SYSTOLIC AND DIASTOLIC HRT FAIL (3) Chemotherapy induced nausea and vomiting Assessment/Plan: intermittent nuasea and vomiting, often with associated left anterior chest discomfort. Code(s): R11.2 - NAUSEA WITH VOMITING, UNSPECIFIED; T45.1X5A - ADVERSE EFFECT OF ANTINEOPLASTIC AND IMMUNOSUP DRUGS, INIT (4) Chest pain Assessment/Plan: Hb 9.5 Episode of atypical chest pain earlier this week: no significant EKG changes or arrhythmias on telemetry; TNI did not rise appreiciably. On increased Imdur (now 90 mg daily). Code(s): R07.9 - CHEST PAIN, UNSPECIFIED Qualifiers: Chest pain type: unspecified Qualified Code(s): R07.9 - Chest pain, unspecified (5) Hypomagnesemia Assessment/Plan: Replete , and keep Mg 2.0-2.4 Keep K+ 4.0-4.5 Keep PO4 2.5-4.9 Code(s): E83.42 - HYPOMAGNESEMIA (6) Coronary artery disease Code(s): I25.10 - ATHSCL HEART DISEASE OF [place] CORONARY ARTERY W/O ANG PCTRS (7) History of pancreatic surgery Assessment/Plan: s/p Whipple's procedure. s/p PRBCs. Code(s): Z98.890 - OTHER SPECIFIED POSTPROCEDURAL STATES (8) Anemia Code(s): D64.9 - ANEMIA, UNSPECIFIED
[2019-06-04] MEDS ORDERED: ISOSORBIDE MONONITRATE 30 MG TAB.SR.24H (FP) PO ONE (21:11)
[2019-06-04] MEDS ORDERED: ISOSORBIDE MONONITRATE 60 MG TAB.SR.24H (FP) PO ONE (21:11)
[2019-06-04] MEDS: ATORVASTATIN CA 40 MG TABLET (FP) PO SCH (21:16)
[2019-06-04] MEDS: traMADol HCL 50 MG TABLET PO PRN (21:17)
[2019-06-04] MEDS: ISOSORBIDE MONONITRATE 30 MG, ISOSORBIDE MONONITRATE 60 MG PO SCH (21:17)
[2019-06-04] MEDS: TAMSULOSIN HCL 0.4 MG CAP PO SCH (21:17)
[2019-06-04] MEDS: SODIUM CHLORIDE 1,000 ML IV SCH (23:47)
[2019-06-05] MEDS: SODIUM CHLORIDE 1,000 ML IV SCH (05:48)
[2019-06-05 07:12] LABS: BASO % 0.6 % (0-2.0); EOS % 4.1 % (0-4.5); HEMATOCRIT 28.6 % (35.4-49); HEMOGLOBIN 9.9 GM/dL (11.7-16.9); LYMPH % 19.9 % (8-40); MCH 30.8 pg (25.7-33.7); MCHC 34.4 g/dl (32.0-35.9); MEAN CELL VOLUME 89.3 fl (80-96); MEAN PLT VOLUME 8.6 fl (7.5-11.1); MONO % 10.5 % (3.8-10.2); NEUT % 64.9 % (42.8-82.8); PLATELET COUNT 102 K/MM3 (134-434); RBC 3.21 M/mm3 (4.00-5.60); RDW 16.6 % (11.9-15.9)
[2019-06-05 07:38] LABS: ALBUMIN 2.5 g/dl (3.4-5.0); BILIRUBIN,TOTAL 0.6 mg/dL (0.2-1); BLOOD UREA NITROGEN 12.2 mg/dL (7-18); CALCIUM 8.2 mg/dL (8.5-10.1); CREATININE 0.7 mg/dL (0.55-1.3); POTASSIUM 4.2 mmol/L (3.5-5.1); TOT PROT 5.2 g/dl (6.4-8.2)
--- NOTE | 2019-06-05 10:37 | PN ---
Progress Note (short form) - Note Progress Note: Coverage for Dr. Helio Mata Chief Complaint: Events noted, notes reviewed, denies any chest discomfort or dyspnea History of Present Illness: Seen and examined on telemetry. Events noted, notes reviewed, denies any chest discomfort or dyspnea Medications: Current Medications Allopurinol (Zyloprim -) 100 mg PO DAILY [facility] Last Admin: 06/04/19 09:37 Dose: 100 mg Ascorbic Acid (Vitamin C -) 500 mg PO BID [facility] Last Admin: 06/04/19 21:17 Dose: 500 mg Aspirin (Asa -) 81 mg PO DAILY [facility] Last Admin: 06/04/19 09:37 Dose: 81 mg Atorvastatin Calcium (Lipitor -) 40 mg PO HS [facility] Last Admin: 06/04/19 21:16 Dose: 40 mg Bisacodyl (Dulcolax -) 5 mg PO DAILY PRN PRN Reason: CONSTIPATION Last Admin: 06/04/19 14:59 Dose: 5 mg Folic Acid (Folic Acid -) 1 mg PO DAILY [facility] Last Admin: 06/04/19 09:37 Dose: 1 mg Sodium Chloride (Normal Saline -) 1,000 mls @ 40 mls/hr IV ASDIR [facility] Last Admin: 06/05/19 05:48 Dose: 40 mls/hr Isosorbide Mononitrate 30 mg/ (Isosorbide Mononitrate 60 mg) 90 mg PO HS [facility] Last Admin: 06/04/19 21:17 Dose: 90 mg Lisinopril (Prinivil) 5 mg PO DAILY [facility] Last Admin: 06/04/19 09:39 Dose: 5 mg Loperamide HCl (Imodium -) 2 mg PO Q4H PRN PRN Reason: DIARRHEA Last Admin: 05/30/19 20:30 Dose: 2 mg Metoprolol Tartrate (Lopressor -) 12.5 mg PO BID [facility] Last Admin: 06/04/19 21:16 Dose: 12.5 mg Multivitamins/Minerals (Certavite-Antioxidant Liquid) 15 ml PO DAILY [facility] Last Admin: 06/04/19 09:39 Dose: 15 ml Ondansetron HCl (Zofran Injection) 8 mg IVPUSH Q8H PRN PRN Reason: NAUSEA AND/OR VOMITING Last Admin: 06/04/19 11:37 Dose: 8 mg Pantoprazole Sodium (Protonix -) 40 mg PO DAILY [facility] Last Admin: 06/04/19 09:38 Dose: 40 mg Polyethylene Glycol (Miralax (For Daily Use) -) 17 gm PO DAILY [facility] Last Admin: 06/04/19 09:40 Dose: 17 gm Ranolazine (Ranexa -) 500 mg PO BID [facility] Last Admin: 06/04/19 21:17 Dose: 500 mg Tamsulosin HCl (Flomax -) 0.4 mg PO HS [facility] Last Admin: 06/04/19 21:17 Dose: 0.4 mg Tramadol HCl (Ultram -) 50 mg PO DAILY PRN PRN Reason: PAIN Last Admin: 06/04/19 21:17 Dose: 50 mg Review of Systems - Review of Systems Constitutional: denies: Chills, Fever Cardiovascular: As noted above Respiratory: denies: Cough or Sputum Production Gastrointestinal: reports: Nausea, Vomiting, Diarrhea denies: Constipation or Abdominal Pain Neurological: denies: Headaches Vital Signs: Last Vital Signs Temp Pulse Resp BP Pulse Ox 98.4 F 76 18 104/57 L 97 06/05/19 02:00 06/05/19 02:00 06/05/19 02:00 06/05/19 02:00 06/04/19 21:00 Intake & Output 06/02/19 06/03/19 06/04/19 06/05/19 23:59 23:59 23:59 23:59 Intake Total 1300 1000 2040 830 Output Total 1250 600 850 650 Balance 50 400 1190 180 Weight 173 lb 3.2 oz Neck: Supple Negative JVD No Bruit Respiratory: Diminished breath sounds at the bases bilaterally Cardiovascular: S1 S2 Regular Rate and Rhythm Gastrointestinal: Soft Benign Normal Bowel Sounds Ext: Trace-1+ Edema Labs: Troponin, BNP 06/04/19 15:10 Troponin I 0.02 CBC, BMP 06/05/19 05:45 06/05/19 05:45 Assessment/Plan ASSESSMENT: 1. Coronary artery disease post CABG/PCI/stents angina pectoris- stable 2. Systolic LV dysfunction with clinical class 0-I NYHA classification LV failure, compensated 3. Paroxysmal atrial fibrillation [id number] score of 5 currntly off of A/C therapy 4. HTN 5. Hypercholesterolemia 6. History of GERD 7. 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 Presentation with nausea, vomiting and diarrhea, resolved 9. Anemia/thrombocytopenia PLAN: 1. Continue Lopressor 2. Continue Prinivil 3. Continue Imdur 4. Continue Ranexa 5. Continue Lipitor 6. Continue ASA 7. Ideally patient should be on A/C therapy unless it is absolutely contraindicated considering the above noted [id number] score of 5, recommend resumption of Eliquis therapy once Hg at baseline and no active bleed is noted Kaiser Fernandez M.D.
[2019-06-05] MEDS: ASPIRIN 81 MG CHEWABLE TABLETS PO SCH (11:19)
[2019-06-05] MEDS: FOLIC ACID 1 MG TABLET (FP) PO SCH (11:19)
[2019-06-05] MEDS: PANTOPRAZOLE 40 MG TABLET PO SCH (11:19)
[2019-06-05] MEDS: METOPROLOL TARTRATE 25 MG TABLET (FP) PO SCH ×2 (11:19→21:02)
[2019-06-05] MEDS: ASCORBIC ACID 500 MG TABLET (FP) PO SCH ×2 (11:20→21:01)
[2019-06-05] MEDS: RANOLAZINE E.R. 500 MG TABLET (FP) PO SCH ×2 (11:20→21:01)
[2019-06-05] MEDS: POLYETHYLENE GLYCOL 3350 119 GM BTL PO SCH (11:21)
[2019-06-05] MEDS: MULTIVIT-MINERALS ORAL LIQUID PO SCH (11:21)
[2019-06-05] MEDS: ALLOPURINOL 100 MG TABLET (FP) PO SCH (11:22)
--- NOTE | 2019-06-05 11:26 | PN ---
Progress Note (short form) - Note Progress Note: Patient feels examined feels little better Eating better--- but says not feels good enough to go home today--- maybe tomorrow Mouth is better cardiology follow-up noted Denies chest pain or shortness of breath Vital Signs Temp 98.4 F 06/05/19 02:00 Pulse 76 06/05/19 02:00 Resp 18 06/05/19 02:00 BP 104/57 L 06/05/19 02:00 Pulse Ox 97 06/04/19 21:00 Intake & Output 06/04/19 06/04/19 06/05/19 11:59 23:59 11:59 Intake Total 1767 280 3058 Output Total 350 500 650 Balance 750 440 550 Intake: IV 480 280 480 Normal Saline - 1,000 ml 480 280 480 @ 40 mls/hr IV ASDIR [facility] Rx#:[id number] IVPB 50 Oral 620 610 720 Output: Urine 350 500 650 Void 350 500 650 Other: Voiding Method Urinal Urinal Urinal Bowel Movement No No Active Medications Allopurinol (Zyloprim -) 100 mg PO DAILY [facility] Last Admin: 06/04/19 09:37 Dose: 100 mg Apixaban (Eliquis -) 5 mg PO BID [facility] Ascorbic Acid (Vitamin C -) 500 mg PO BID [facility] Last Admin: 06/04/19 21:17 Dose: 500 mg Atorvastatin Calcium (Lipitor -) 40 mg PO [facility] Last Admin: 06/04/19 21:16 Dose: 40 mg Bisacodyl (Dulcolax -) 5 mg PO DAILY PRN PRN Reason: CONSTIPATION Last Admin: 06/04/19 14:59 Dose: 5 mg Folic Acid (Folic Acid -) 1 mg PO DAILY [facility] Last Admin: 06/04/19 09:37 Dose: 1 mg Sodium Chloride (Normal Saline -) 1,000 mls @ 40 mls/hr IV ASDIR [facility] Last Admin: 06/05/19 05:48 Dose: 40 mls/hr Isosorbide Mononitrate 30 mg/ (Isosorbide Mononitrate 60 mg) 90 mg PO [facility] Last Admin: 06/04/19 21:17 Dose: 90 mg Lisinopril (Prinivil) 5 mg PO DAILY [facility] Last Admin: 06/04/19 09:39 Dose: 5 mg Loperamide HCl (Imodium -) 2 mg PO Q4H PRN PRN Reason: DIARRHEA Last Admin: 05/30/19 20:30 Dose: 2 mg Metoprolol Tartrate (Lopressor -) 12.5 mg PO BID [facility] Last Admin: 06/04/19 21:16 Dose: 12.5 mg Multivitamins/Minerals (Certavite-Antioxidant Liquid) 15 ml PO DAILY [facility] Last Admin: 06/04/19 09:39 Dose: 15 ml Ondansetron HCl (Zofran Injection) 8 mg IVPUSH Q8H PRN PRN Reason: NAUSEA AND/OR VOMITING Last Admin: 06/04/19 11:37 Dose: 8 mg Pantoprazole Sodium (Protonix -) 40 mg PO DAILY [facility] Last Admin: 06/04/19 09:38 Dose: 40 mg Polyethylene Glycol (Miralax (For Daily Use) -) 17 gm PO DAILY [facility] Last Admin: 06/04/19 09:40 Dose: 17 gm Ranolazine (Ranexa -) 500 mg PO BID [facility] Last Admin: 06/04/19 21:17 Dose: 500 mg Tamsulosin HCl (Flomax -) 0.4 mg PO HS [facility] Last Admin: 06/04/19 21:17 Dose: 0.4 mg Tramadol HCl (Ultram -) 50 mg PO DAILY PRN PRN Reason: PAIN Last Admin: 06/04/19 21:17 Dose: 50 mg CBC, BMP 06/05/19 05:45 06/05/19 05:45 Physical exam alert and awake Comfortable Stomatitis, lips , oral mucosa--- improved S1 S2 RRR Lungs decreased Abd- soft, NT No edema a/p CHEST PAIN STOMATITIS ELEVATED TROPONINS-- DEMAND ISCHEMIA -- ANEMIA VOMITING /DIARRHEA-- DUE TO CHEMO-->RESOLVED Problem List - Problems (1) Chemotherapy induced nausea and vomiting Code(s): R11.2 - NAUSEA WITH VOMITING, UNSPECIFIED; T45.1X5A - ADVERSE EFFECT OF ANTINEOPLASTIC AND IMMUNOSUP DRUGS, INIT (2) Chest pain Code(s): R07.9 - CHEST PAIN, UNSPECIFIED Qualifiers: Chest pain type: unspecified Qualified Code(s): R07.9 - Chest pain, unspecified (3) Coronary artery disease Code(s): I25.10 - ATHSCL HEART DISEASE OF [place] CORONARY ARTERY W/O ANG PCTRS (4) History of pancreatic surgery Code(s): Z98.890 - OTHER SPECIFIED POSTPROCEDURAL STATES (5) Paroxysmal atrial fibrillation Code(s): I48.0 - PAROXYSMAL ATRIAL FIBRILLATION (6) Pancytopenia Code(s): D61.818 - OTHER PANCYTOPENIA overall better Continue same PT f/u labs---CBC Restart Eliquis Discontinue aspirin d/c planning -- if better - tomorrow
[2019-06-05] MEDS: LISINOPRIL 5 MG TABLET (FP) PO SCH (13:14)
[2019-06-05] MEDS ORDERED: ISOSORBIDE MONONITRATE 60 MG TAB.SR.24H (FP) PO ONE (20:58)
[2019-06-05] MEDS ORDERED: ISOSORBIDE MONONITRATE 30 MG TAB.SR.24H (FP) PO ONE (20:58)
[2019-06-05] MEDS: APIXABAN 5 MG TABLET PO SCH (21:02)
[2019-06-05] MEDS: ISOSORBIDE MONONITRATE 30 MG, ISOSORBIDE MONONITRATE 60 MG PO SCH (21:02)
[2019-06-05] MEDS: TAMSULOSIN HCL 0.4 MG CAP PO SCH (21:02)
[2019-06-05] MEDS: ATORVASTATIN CA 40 MG TABLET (FP) PO SCH (21:02)
[2019-06-06 07:16] LABS: HEMATOCRIT 27.7 % (35.4-49); HEMOGLOBIN 9.5 GM/dL (11.7-16.9); MCHC 34.3 g/dl (32.0-35.9); MEAN CELL VOLUME 90.4 fl (80-96); MEAN PLT VOLUME 8.5 fl (7.5-11.1); PLATELET COUNT 151 K/MM3 (134-434); RBC 3.06 M/mm3 (4.00-5.60); WHITE BLOOD COUNT 4.3 K/mm3 (4.0-10.0)
--- NOTE | 2019-06-06 08:16 | PN ---
Progress Note (short form) - Note Progress Note: Coverage for Dr. Helio Mata Chief Complaint: Events noted, notes reviewed, denies any chest discomfort or dyspnea History of Present Illness: Seen and examined on telemetry. Events noted, notes reviewed, denies any chest discomfort or dyspnea Medications: Current Medications Allopurinol (Zyloprim -) 100 mg PO DAILY [facility] Last Admin: 06/05/19 11:22 Dose: 100 mg Apixaban (Eliquis -) 5 mg PO BID [facility] Last Admin: 06/05/19 21:02 Dose: 5 mg Ascorbic Acid (Vitamin C -) 500 mg PO BID [facility] Last Admin: 06/05/19 21:01 Dose: 500 mg Atorvastatin Calcium (Lipitor -) 40 mg PO HS [facility] Last Admin: 06/05/19 21:02 Dose: 40 mg Bisacodyl (Dulcolax -) 5 mg PO DAILY PRN PRN Reason: CONSTIPATION Last Admin: 06/04/19 14:59 Dose: 5 mg Folic Acid (Folic Acid -) 1 mg PO DAILY [facility] Last Admin: 06/05/19 11:19 Dose: 1 mg Sodium Chloride (Normal Saline -) 1,000 mls @ 40 mls/hr IV ASDIR [facility] Last Admin: 06/05/19 05:48 Dose: 40 mls/hr Isosorbide Mononitrate 30 mg/ (Isosorbide Mononitrate 60 mg) 90 mg PO HS [facility] Last Admin: 06/05/19 21:02 Dose: 90 mg Lisinopril (Prinivil) 5 mg PO DAILY [facility] Last Admin: 06/05/19 13:14 Dose: Not Given Loperamide HCl (Imodium -) 2 mg PO Q4H PRN PRN Reason: DIARRHEA Last Admin: 05/30/19 20:30 Dose: 2 mg Metoprolol Tartrate (Lopressor -) 12.5 mg PO BID [facility] Last Admin: 06/05/19 21:02 Dose: 12.5 mg Multivitamins/Minerals (Certavite-Antioxidant Liquid) 15 ml PO DAILY [facility] Last Admin: 06/05/19 11:21 Dose: 15 ml Ondansetron HCl (Zofran Injection) 8 mg IVPUSH Q8H PRN PRN Reason: NAUSEA AND/OR VOMITING Last Admin: 06/04/19 11:37 Dose: 8 mg Pantoprazole Sodium (Protonix -) 40 mg PO DAILY [facility] Last Admin: 06/05/19 11:19 Dose: 40 mg Polyethylene Glycol (Miralax (For Daily Use) -) 17 gm PO DAILY [facility] Last Admin: 06/05/19 11:21 Dose: 17 gm Ranolazine (Ranexa -) 500 mg PO BID [facility] Last Admin: 06/05/19 21:01 Dose: 500 mg Tamsulosin HCl (Flomax -) 0.4 mg PO HS [facility] Last Admin: 06/05/19 21:02 Dose: 0.4 mg Tramadol HCl (Ultram -) 50 mg PO DAILY PRN PRN Reason: PAIN Last Admin: 06/04/19 21:17 Dose: 50 mg Review of Systems - Review of Systems Constitutional: denies: Chills, Fever Cardiovascular: As noted above Respiratory: denies: Cough or Sputum Production Gastrointestinal: reports: Nausea, Vomiting, Diarrhea denies: Constipation or Abdominal Pain Neurological: denies: Headaches Vital Signs: Last Vital Signs Temp Pulse Resp BP Pulse Ox 97.6 F 63 18 121/66 95 06/06/19 06:17 06/06/19 06:17 06/06/19 06:17 06/06/19 06:17 06/05/19 20:20 Intake & Output 06/03/19 06/04/19 06/05/19 06/06/19 23:59 23:59 23:59 23:59 Intake Total 1000 2040 1730 320 Output Total 476 957 0142 Balance 400 1190 580 320 Neck: Supple Negative JVD No Bruit Respiratory: Diminished breath sounds at the bases bilaterally Cardiovascular: S1 S2 Regular Rate and Rhythm Gastrointestinal: Soft Benign Normal Bowel Sounds Ext: Trace-1+ Edema Labs: CBC, BMP 06/06/19 05:55 06/05/19 05:45 Hepatic Panel Total Bilirubin 0.6 mg/dL (0.2-1) 06/05/19 05:45 Direct Bilirubin 0.5 mg/dL (0.0-0.2) H 05/31/19 06:50 AST 43 U/L (15-37) H 06/05/19 05:45 ALT 59 U/L (13-61) 06/05/19 05:45 Alkaline Phosphatase 376 U/L (45-117) H 06/05/19 05:45 Albumin 2.5 g/dl (3.4-5.0) L 06/05/19 05:45 INR, PTT INR 1.83 (0.83-1.09) H 05/29/19 16:05 Assessment/Plan ASSESSMENT: 1. Coronary artery disease post CABG/PCI/stents angina pectoris- stable 2. Systolic LV dysfunction with clinical class 0-I NYHA classification LV failure, compensated/euvolemic 3. Paroxysmal atrial fibrillation [id number] score of 5 resumed A/C therapy/ DOAC's- Eliquis 4. HTN 5. Hypercholesterolemia 6. History of GERD 7. 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 Presentation with nausea, vomiting and diarrhea, resolved 9. Anemia- persistent/thrombocytopenia- resolved PLAN: 1. Continue Lopressor 2. Continue Prinivil 3. Continue Imdur 4. Continue Ranexa 5. Continue Lipitor 6. Continue Eliquis, off of ASA 7. D/C home as per the primary team Kaiser Fernandez M.D.
[2019-06-06] MEDS: PANTOPRAZOLE 40 MG TABLET PO SCH (10:46)
[2019-06-06] MEDS: ASCORBIC ACID 500 MG TABLET (FP) PO SCH (10:47)
[2019-06-06] MEDS: METOPROLOL TARTRATE 25 MG TABLET (FP) PO SCH (10:47)
[2019-06-06] MEDS: RANOLAZINE E.R. 500 MG TABLET (FP) PO SCH (10:47)
[2019-06-06] MEDS: traMADol HCL 50 MG TABLET PO PRN (10:47)
[2019-06-06] MEDS: POLYETHYLENE GLYCOL 3350 119 GM BTL PO SCH (10:48)
[2019-06-06] MEDS: FOLIC ACID 1 MG TABLET (FP) PO SCH (10:48)
[2019-06-06] MEDS: LISINOPRIL 5 MG TABLET (FP) PO SCH (10:48)
[2019-06-06] MEDS: MULTIVIT-MINERALS ORAL LIQUID PO SCH (10:48)
[2019-06-06] MEDS: ALLOPURINOL 100 MG TABLET (FP) PO SCH (10:48)
[2019-06-06] MEDS: APIXABAN 5 MG TABLET PO SCH (10:50)
[2019-06-06 12:47] LABS: PLATELET ESTIMATE ADEQUATE
--- NOTE | 2019-06-06 12:52 | DS ---
Physical Examination Vital Signs: Vital Signs Temperature 97.6 F 06/06/19 06:17 Pulse Rate 63 06/06/19 06:17 Respiratory Rate 18 06/06/19 06:17 Blood Pressure 121/66 06/06/19 06:17 O2 Sat by Pulse Oximetry (%) 95 06/05/19 20:20 Findings/Remarks: patient seen and examined. Chart reviewed. Comfortable. Feels much better. Denies pain. Tolerating diet. Afebrile Constitutional: Yes: No Distress, Calm Eyes: Yes: Conjunctiva Clear Neck: Yes: Supple Cardiovascular: Yes: Regular Rate and Rhythm Respiratory: Yes: CTA Bilaterally Gastrointestinal: Yes: Soft Edema: No Neurological: Yes: Alert Psychiatric: Yes: Alert Labs: CBC, BMP 06/06/19 05:55 06/05/19 05:45 Discharge Summary Problems reviewed: Yes Reason For Visit: Diarrhea, CHEST PAIN, CHEMOTHERAPY-INDUCED NAUSEA Current Active Problems Acute on chronic systolic and diastolic heart failure, NYHA class 1 (Acute) Chemotherapy induced nausea and vomiting (Acute) Chest pain (Acute) Coronary artery disease (Acute) Diarrhea (Acute) History of pancreatic surgery (Acute) Hypomagnesemia (Acute) Nausea and vomiting (Acute) Pancytopenia (Acute) Paroxysmal atrial fibrillation (Acute) Hospital Course: Alf Waddell is a 79M with H Whipple procedure (2018), CAD s/p CABG+ stenting, AFIB on Eliquis, prostate cancer s/p seeding, currently on weekly IV chemo and daily capacitabine presenting with nausea, vomiting, diarrhea, and chest pain in the setting of recent IV chemo. admitted to the floor Conservatively managed IA ruled out Fluids Anticoagulation--- was held initially----due to anemia and thrombocytopenia Likely chemotherapy related No evidence of bleeding Stool guaiac negative anticoagulation is started again Now much better Stable enough to be discharged home Patient to follow up with his specialists Medications reconciled follow-up with his specialists--- as advised and PMD in 1 week. patient is in agreement I gave him my number also--- As his primary doctor is out of town Will follow--- in my office---until his PMD comes back Condition: Stable - Instructions Referrals: Samantha Pham MD [Primary Care Provider] - Celine Goldberg MD [Staff Physician] - Disposition: HOME - Home Medications Comprehensive Discharge Medication List: Ambulatory Orders Folic Acid 1 mg PO DAILY 11/04/16 Tamsulosin HCl [Flomax] 0.4 mg PO HS 11/07/17 Allopurinol [Zyloprim -] 100 mg PO DAILY 09/04/18 Lisinopril [Zestril] 5 mg PO DAILY 09/04/18 Tramadol HCl 50 mg PO DAILY PRN 09/04/18 Isosorbide Mononitrate [Isosorbide Mononitrate ER] 60 mg PO HS 10/12/18 Apixaban [Eliquis] 5 mg PO BID 01/11/19 Atorvastatin Calcium 40 mg PO HS 01/11/19 Ranolazine [Ranexa] 500 mg PO BID 01/11/19 Capecitabine [Xeloda -] 1,500 mg PO BID 05/29/19 Esomeprazole Magnesium 40 mg PO ASDIR 05/29/19 Ondansetron [Zofran *Odt*] 8 mg SL TID PRN 05/29/19 Bisacodyl [Bisacodyl -] 5 mg PO DAILY PRN tablet. 06/06/19 Metoprolol Tartrate [Lopressor -] 12.5 mg PO BID tablet 06/06/19 Multivit-Minerals [Certavite-Antioxidant Liquid] 15 ml PO DAILY cup 06/06/19 Polyethylene Glycol 3350 [Miralax 119 gm Btl -] 17 gm PO DAILY bottle 06/06/19
[2019-06-06 15:05] VITALS: BP 127/74; PULSE 68; TEMP 98.3
== END 2019-06-06 16:12 | disposition home or self-care (01) | DRG 393 ==
LOC: JER 14:48 → JERBED 17:30 → J4S 22:11
PROVIDERS: ADMIT Internal Medicine; ATTEND Internal Medicine
PROC: 30233N1 Transfusion of Nonautologous Red Blood Cells into Peripheral Vein, Percutaneous Approach (ICD-10-PCS; principal; 2019-05-31)
DX: K52.1 Toxic gastroenteritis and colitis (principal); D61.810 Antineoplastic chemotherapy induced pancytopenia; I50.43 Acute on chronic combined systolic (congestive) and diastolic (congestive) heart failure; C25.9 Malignant neoplasm of pancreas, unspecified; I24.8 Other forms of acute ischemic heart disease; I47.2 Ventricular tachycardia; R11.2 Nausea with vomiting, unspecified; R07.9 Chest pain, unspecified; T45.1X5A Adverse effect of antineoplastic and immunosuppressive drugs, initial encounter; I11.0 Hypertensive heart disease with heart failure; I25.119 Atherosclerotic heart disease of native coronary artery with unspecified angina pectoris; I48.0 Paroxysmal atrial fibrillation; Z95.1 Presence of aortocoronary bypass graft; Z95.5 Presence of coronary angioplasty implant and graft; D69.6 Thrombocytopenia, unspecified; D64.9 Anemia, unspecified; E83.42 Hypomagnesemia; E78.5 Hyperlipidemia, unspecified; I95.9 Hypotension, unspecified
CPT/HCPCS: 36415; 36430; 36511; 71045-TC-FY; 80048; 80053; 80061; 80076; 81003; 82272; 82550; 82803; 83605; 83721; 83735; 84100; 84439; 84443; 84484; 85025; 85027; 85610; 85730; 86850; 86900; 86901; 86922; 87040; 87086; 93005; 93010; 93306-TC; 97116-GP; 97162-GP; 99284-25; J1644; J7030; P9016; P9038; P9058

== ENCOUNTER 2019-06-17 13:37 | Inpatient (IN) | payer OTHER, MEDICARE ==
[2019-06-17 13:48] VITALS: BMI 24.6
--- NOTE | 2019-06-17 14:30 | PDOC ---
History of Present Illness - History of Present Illness Initial Comments: Alf Waddell is a 79 y/o male with PMH significant for s/p Whipple (2018), CAD s/p CABG, cardiac stents x2, lower extremity stents x2, a-fib on eliquis, prostate CA (radiation), last chemo therapy May.26, presenting today with nausea , vomiting x2, diarrhea x5 that started yesterday. Reports that he has had similar episodes in the past before. Reports that he called his PCP today who was out of office but was sent to the ED by office staff. NBNB vomit/diarrhea. Reports associated lower right chest pain. Denies abdominal pain/dysuria. Denies shortness of breath. Denies headache. Denies fever/chills. Denies recent travel. PCP. Dr. Taylor Med Onc: Dr. Gomez Surg Onc: Dr. Bethanie Leon Cards: Dr. Guillen <Michael Campbell - Last Filed: 06/17/19 22:45> <Meena Stoddard - Last Filed: 06/18/19 09:23> - General Chief Complaint: Diarrhea Stated Complaint: SENT BY DOC Time Seen by Provider: 06/17/19 14:12 Past History - Past Medical History Anemia: Yes Asthma: No Cancer: Yes (PROSTATE CANCER 2011) Cardiac Disorders: Yes (coronary artery disease, cardiac bypass 10 years ago, Afib) CVA: No COPD: No CHF: Yes Dementia: No Diabetes: No GI Disorders: (hiatal hernia) Disorders: Yes (STONES, chronic UTIs) HTN: Yes Hypercholesterolemia: Yes Kidney Stones: Yes Liver Disease: No Seizures: No Thyroid Disease: No - Surgical History Abdominal Surgery: Yes (whipple) Appendectomy: No Cardiac Surgery: Yes (open heart, 2 stents) Cholecystectomy: No Lung Surgery: No Neurologic Surgery: No Orthopedic Surgery: No - Immunization History Immunization Up to Date: Yes - Psycho Social/Smoking Cessation Hx Smoking Status: Yes Smoking History: Unknown if ever smoked Have you smoked in the past 12 months: No Number of Cigarettes Smoked Daily: 0 If you are a former smoker, when did you quit?: 2003 Cigars Per Day: 0 'Breaking Loose' booklet given: 11/10/17 Hx Alcohol Use: No Drug/Substance Use Hx: No Substance Use Type: None Hx Substance Use Treatment: No <Michael Campbell - Last Filed: 06/17/19 22:45> <Ariel Stoddardie Oviluis - Last Filed: 06/18/19 09:23> - Past Medical History Allergies/Adverse Reactions: Allergies Allergy/AdvReac Type Severity Reaction Status Date / Time strawberry Allergy Severe Swelling Verified 06/17/19 13:41 pepper (genus Capsicum) Allergy Unknown Verified 06/17/19 13:41 black pepper Allergy Verified 06/17/19 13:41 iohexol [From Omnipaque] Allergy Rash Verified 06/17/19 13:41 Iodinated Contrast Media AdvReac Rash Verified 06/17/19 13:41 red pepper Allergy Uncoded 06/17/19 13:41 Home Medications: Ambulatory Orders Folic Acid 1 mg PO DAILY 11/04/16 Tamsulosin HCl [Flomax] 0.4 mg PO HS 11/07/17 Allopurinol [Zyloprim -] 100 mg PO DAILY 09/04/18 Lisinopril [Zestril] 5 mg PO DAILY 09/04/18 Tramadol HCl 50 mg PO ASDIR PRN 09/04/18 Isosorbide Mononitrate [Isosorbide Mononitrate ER] 60 mg PO HS 10/12/18 Apixaban [Eliquis] 5 mg PO BID 01/11/19 Atorvastatin Calcium 40 mg PO HS 01/11/19 Ranolazine [Ranexa] 500 mg PO BID 01/11/19 Ondansetron [Zofran *Odt*] 8 mg SL TID PRN 05/29/19 Metoprolol Tartrate [Lopressor -] 12.5 mg PO BID tablet 06/06/19 Multivit-Minerals [Certavite-Antioxidant Liquid] 15 ml PO DAILY cup 06/06/19 Pantoprazole Sodium [Protonix -] 40 mg PO DAILY 06/17/19 Abd/GI Specific PMHX - Complaint Specific PMHX Colitis: No Diverticulitis: No Gall Bladder Disease: No GERD: No Hepatitis: No Irritable Bowel Synd (IBS): No Pancreatitis: No GI Ulcer Disease: No <Michael Campbell - Last Filed: 06/17/19 22:45> Review of Systems - Review of Systems Comments:: GENERAL/CONSTITUTIONAL: No fever or chills. No weakness._ HEAD, EYES, EARS, NOSE AND THROAT: No change in vision. No change in hearing. No sore throat._ CARDIOVASCULAR: Reports chest pain. No shortness of breath_ RESPIRATORY: Denies cough, hemoptysis_ GASTROINTESTINAL: Reports nausea, vomiting, diarrhea. GENITOURINARY: No dysuria, frequency, or change in urination._ MUSCULOSKELETAL: No joint or muscle swelling or pain. No neck or back pain._ SKIN: No rash_ NEUROLOGIC: No headache, vertigo, loss of consciousness, or change in strength/ sensation._ ENDOCRINE: No increased thirst. No abnormal weight change_ HEMATOLOGIC/LYMPHATIC: No anemia, easy bleeding, or history of blood clots._ ALLERGIC/IMMUNOLOGIC: No hives or skin allergy._ <Michael Campbell - Last Filed: 06/17/19 22:45> *Physical Exam - Vital Signs Last Vital Signs Temp Pulse Resp BP Pulse Ox 97.8 F 50 L 28 H 109/62 94 L 06/17/19 13:47 06/17/19 13:47 06/17/19 13:47 06/17/19 13:47 06/17/19 13:47 - Physical Exam GENERAL: Awake, alert, and oriented to person/place/time, in no acute distress_ HEAD: No signs of trauma, normocephalic, atraumatic _ EYES: PERRLA, EOMI, sclera anicteric, conjunctiva clear_ ENT: Hearing grossly normal, nares patent, oropharynx clear without exudates. No uvular deviation. Moist mucosa_ NECK: Normal ROM, supple, no lymphadenopathy, JVD, or masses_ LUNGS: No distress, speaks in full sentences, clear to auscultation bilaterally _ HEART: Regular rate and rhythm, normal S1 and S2, no murmurs appreciated, peripheral pulses normal and equal bilaterally._ ABDOMEN: Soft, mild TTP RLQ, normoactive bowel sounds. No guarding, no rebound. No masses_ EXTREMITIES: Normal inspection, Normal range of motion, no edema. No clubbing or cyanosis_ NEUROLOGICAL: Cranial nerves II through XII grossly intact. Normal speech, normal gait, no focal sensorimotor deficits _ SKIN: Warm, Dry, normal turgor, no rashes or lesions noted_ <Michael Campbell - Last Filed: 06/17/19 22:45> - Vital Signs Last Vital Signs Temp Pulse Resp BP Pulse Ox 97.8 F 50 L 28 H 109/62 94 L 06/17/19 13:47 06/17/19 13:47 06/17/19 13:47 06/17/19 13:47 06/17/19 13:47 <Meena Stoddard Arlynmarlyluis - Last Filed: 06/18/19 09:23> ED Treatment Course - LABORATORY CBC & Chemistry Diagram: 06/17/19 15:19 06/17/19 15:19 <Michael Campbell - Last Filed: 06/17/19 22:45> - LABORATORY CBC & Chemistry Diagram: 06/17/19 15:19 06/18/19 05:45 - ADDITIONAL ORDERS Additional order review: Laboratory Results 06/17/19 06/17/19 06/17/19 15:19 15:19 15:19 PT with INR 20.80 H INR 1.75 H PTT (Actin FS) 44.2 H Sodium 137 Potassium 4.9 Chloride 104 Carbon Dioxide 27 Anion Gap 6 L BUN 26.7 H Creatinine 1.5 H Est GFR (CKD-EPI)AfAm 50.59 Est GFR (CKD-EPI)NonAf 43.65 Random Glucose 133 H Calcium 9.2 Phosphorus 2.8 Magnesium 2.5 H Total Bilirubin 0.6 AST 38 H ALT 39 Alkaline Phosphatase 430 H Creatine Kinase 29 Troponin I < 0.02 Total Protein 6.3 L Albumin 3.3 L 06/17/19 15:19 RBC 3.98 L MCV 93.1 MCHC 33.8 RDW 19.7 H MPV 8.8 Neutrophils % 50.0 D Lymphocytes % 22.6 Monocytes % 25.0 H D Eosinophils % 0.9 Basophils % 1.5 - Medications Given in the ED: ED Medications Discontinued Medications Generic Name Dose Route Start Last Admin Trade Name Freq PRN Reason Stop Dose Admin Atropine Sulfate 0.5 mg 06/17/19 15:13 06/17/19 15:17 Atropine Injection - IVPUSH 06/17/19 15:14 0.5 mg ONCE ONE Administration Calcium Gluconate 1,000 mg 06/17/19 16:00 06/17/19 16:56 Calcium Gluconate 10% - IVPUSH 06/17/19 16:01 1,000 mg ONCE ONE Administration Glucagon 5 mg 06/17/19 15:22 06/17/19 15:36 Glucagon - IVPUSH 06/17/19 15:23 5 mg ONCE ONE Administration Glucagon 5 mg 06/17/19 15:43 06/17/19 16:56 Glucagon - IVPUSH 06/17/19 15:44 5 mg ONCE ONE Administration Ondansetron HCl 4 mg 06/17/19 15:23 06/17/19 15:46 Zofran Injection IVPUSH 06/17/19 15:24 4 mg ONCE ONE Administration Sodium Chloride 1,000 ml 06/17/19 14:54 06/17/19 15:36 Normal Saline - IV 06/17/19 14:55 Not Given ONCE ONE Sodium Chloride 500 ml 06/17/19 15:10 06/17/19 15:17 Normal Saline - IV 06/17/19 15:11 500 ml ONCE ONE Administration <Meena Stoddard - Last Filed: 06/18/19 09:23> Medical Decision Making - Medical Decision Making 06/17/19 14:42 79M s/p whipple, hx of CAD s/p CABG and stents, prostate CA s/p radiation, presenting today with diarrhea x5 and vomiting x2 that started yesterday. -cbc, cmp -coags, type and screen -ekg, trop, cxr 06/17/19 15:43 EKG shows sinus bradycardia, 37 bpm, 1st degree AV block, incomplete LBBB seen on prior EKG, QTc 414. Pt reassessed. Bradycardia at 37 bpm. Asymptomatic, A&Ox3, no shortness of breath, no chest pain. Pt given 0.5 mg of atropine. HR in the low 40s. Pt given 5 mg of glucagon. HR in the high 40s. Will repeat glucacon 5 mg and calcium 1g. Started toprol 12.5 mg BID this week. Did not report any other symptoms while at home prior to nausea/vomiting/diarrhea yesterday. 06/17/19 16:29 CXR negative for acute intra thoracic pathology. 06/17/19 16:48 D/w the case with Poison control technician. Tox fellow to call back. Labs reviewed. Cr elevated. Laboratory Last Values WBC 6.1 K/mm3 (4.0-10.0) 06/17/19 15:19 RBC 3.98 M/mm3 (4.00-5.60) L 06/17/19 15:19 Hgb 12.5 GM/dL (11.7-16.9) 06/17/19 15:19 Hct 37.0 % (35.4-49) D 06/17/19 15:19 MCV 93.1 fl (80-96) 06/17/19 15:19 MCH 31.4 pg (25.7-33.7) 06/17/19 15:19 MCHC 33.8 g/dl (32.0-35.9) 06/17/19 15:19 RDW 19.7 % (11.9-15.9) H 06/17/19 15:19 Plt Count 459 K/MM3 (134-434) H D 06/17/19 15:19 MPV 8.8 fl (7.5-11.1) 06/17/19 15:19 Absolute Neuts (auto) 3.1 K/mm3 (1.5-8.0) 06/17/19 15:19 Neutrophils % 50.0 % (42.8-82.8) D 06/17/19 15:19 Lymphocytes % 22.6 % (8-40) 06/17/19 15:19 Monocytes % 25.0 % (3.8-10.2) H D 06/17/19 15:19 Eosinophils % 0.9 % (0-4.5) 06/17/19 15:19 Basophils % 1.5 % (0-2.0) 06/17/19 15:19 Nucleated RBC % 0 % (0-0) 06/17/19 15:19 PT with INR 20.80 SEC (9.7-13.0) H 06/17/19 15:19 INR 1.75 (0.83-1.09) H 06/17/19 15:19 PTT (Actin FS) 44.2 SECONDS (25.2-36.5) H 06/17/19 15:19 Sodium 137 mmol/L (136-145) 06/17/19 15:19 Potassium 4.9 mmol/L (3.5-5.1) 06/17/19 15:19 Chloride 104 mmol/L (98-107) 06/17/19 15:19 Carbon Dioxide 27 mmol/L (21-32) 06/17/19 15:19 Anion Gap 6 MMOL/L (8-16) L 06/17/19 15:19 BUN 26.7 mg/dL (7-18) H 06/17/19 15:19 Creatinine 1.5 mg/dL (0.55-1.3) H 06/17/19 15:19 Est GFR (CKD-EPI)AfAm 50.59 06/17/19 15:19 Est GFR (CKD-EPI)NonAf 43.65 06/17/19 15:19 Random Glucose 133 mg/dL (74-106) H 06/17/19 15:19 Calcium 9.2 mg/dL (8.5-10.1) 06/17/19 15:19 Phosphorus 2.8 mg/dL (2.5-4.9) 06/17/19 15:19 Magnesium 2.5 mg/dL (1.8-2.4) H 06/17/19 15:19 Total Bilirubin 0.6 mg/dL (0.2-1) 06/17/19 15:19 AST 38 U/L (15-37) H 06/17/19 15:19 ALT 39 U/L (13-61) 06/17/19 15:19 Alkaline Phosphatase 430 U/L (45-117) H 06/17/19 15:19 Creatine Kinase 29 U/L (26-308) 06/17/19 15:19 Troponin I < 0.02 ng/ml (0.00-0.05) 06/17/19 15:19 Total Protein 6.3 g/dl (6.4-8.2) L 06/17/19 15:19 Albumin 3.3 g/dl (3.4-5.0) L 06/17/19 15:19 06/17/19 17:21 D/w the case with Dr. Easley ([phone]) from [place] [facility]. Recommends holding glucagon drip unless pt becomes hypotensive or symptomatic. If symptomatic, start glucagon drip at 5 mg/hr. If continuing to be symptomatic after glucagon and/or if hypotensive, give high dose insulin. Start with 500 units inuslin in 50 cc NS and give at 1 unit/kg/ hour. Give along with dextrose 1g/kg bolus and 0.5 g/kg infusion. Q15min BMP/ fingerstick. Recommends VBG and lactic, ammonia, acetaminophen, salicylate levels. POCUS shows poor contractility. 06/17/19 18:22 Given short supply of glucagon, plan to transfer to [facility] for continued care. D/w Dr. Rogers at [facility] who accepts the patient for admission. 06/17/19 19:39 D/w Dr. Mata, the patient's cash control specialist. The pt is well known to the cash control specialist for many years and has been bradycardic before. Dr. Mata recommends admitting the pt here to the ICU for hemodynamic monitoring, as pt is asymptomatic and glucagon may not be needed tonight. Given Poison Control recommendations and Dr. Mata's recommendations, plan to admit to ICU for monitoring. Pt is agreeable to this plan and would like to stay at [facility] instead of being transferred. 06/17/19 20:52 D/w [facility] who accepts the patient for admission. <Michael Campbell - Last Filed: 06/17/19 22:45> - Critical Care Time Total Critical Care Time (minutes): 60 (beta stepan toxicity, acute renal insufficency) Critical Care Statement: The care of this patient involved high complexity decision making to prevent further life threatening deterioration of the patient 's condition and/or to evaluate & treat vital organ system(s) failure or risk of failure. <Meena Stoddard - Last Filed: 06/18/19 09:23> Discharge - Discharge Information Problems reviewed: Yes <Michael Campbell - Last Filed: 06/17/19 22:45> - Discharge Information Problems reviewed: Yes - Admission Yes <Meena Stoddard - Last Filed: 06/18/19 09:23> - Discharge Information Clinical Impression/Diagnosis: KWAME (acute kidney injury), 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 Condition: Guarded
[2019-06-17] MEDS ORDERED: SODIUM CHLORIDE 0.9% 500 ML INFUS.BAG IV ONE ×3 (14:54→17:01)
--- NOTE | 2019-06-17 15:01 | PDOC ---
Attending Attestation - Resident Resident Name: Michael Campbell - ED Attending Attestation I have performed the following: I have examined & evaluated the patient, The case was reviewed & discussed with the resident, I agree w/resident's findings & plan - HPI HPI: 06/17/19 14:59 Alf Waddell is a 79 y/o male with PMH significant for s/p Whipple (2018), CAD s/p CABG, cardiac stents x2, lower extremity stents x2, paroxysmal a-fib on eliquis, prostate CA (radiation), last chemo therapy 2019 presenting today with nausea, vomiting x2, diarrhea x5 that started yesterday. Has had poor PO intake, only ate small amounts of food today. of note he was started on Metoprolol 12.5mg BID x 1 week, most recent new medication that was started. Reports that he has had similar episodes in the past before, previously related to his chemotherapy. Reports that he called his PCP today who was out of office but was sent to the ED by office staff. per , looking more pale than usual. Reports associated lower right chest pain. Denies abdominal pain/dysuria. Denies shortness of breath. Denies headache. Denies fever/chills. Denies recent travel. Ejection fraction is 30% on prior echo from 06/01/2019 with posterior lateral wall moderate hypokinesis as well as apical wall hypokinesis, severe anterior wall hypokinesis. No valvular vegetations are noted. PCP. Dr. Taylor Med Onc: Dr. Gomez Surg Onc: Dr. Bethanie Leon 06/17/19 15:15 06/17/19 17:33 - Physicial Exam PE: 06/17/19 14:59 Agree with the resident's HPI and PE as documented in the electronic medical record. NAD, malaised appearing, alert and oriented appropriately. EOMI, PERRL, pale conjunctiva, anicteric; neck supple. lungs clear, bradycardic, abdomen soft nontender. no rebound, guarding. Back nontender. COFFEY x4, no focal neuro deficits. No peripheral edema. pale color for ethnicity 06/17/19 15:17 - Critical Care Time Total Critical Care Time: 60 (bb toxicity, bradycardia, acute renal insufficiency) Critical Care Statement: The care of this patient involved high complexity decision making to prevent further life threatening deterioration of the patient 's condition and/or to evaluate & treat vital organ system(s) failure or risk of failure. - Medical Decision Making 06/17/19 15:18 Vital Signs Temp Pulse Resp BP Pulse Ox 97.8 F 50 L 28 H 109/62 94 L 06/17/19 13:47 06/17/19 13:47 06/17/19 13:47 06/17/19 13:47 06/17/19 13:47 Differential diagnosis includes dehydration, gastroenteritis, anemia, electrolyte/metabolic derangements, hyperkalemia, infection, beta-stepan toxicity, medication side effect. Vital signs reviewed, afebrile. However patient is severely bradycardic down into the 30s, BP has been soft, increased respirations. Saturations greater than 94% on room air. given gentle fluids, prior EF 30% on echo from 06/01/19, so gently, as pt could be intravascularly deplete/hypovolemic 06/17/19 15:18 trial atropine 0.5mg, mild effect with HR up to 44, but comes back down will try glucagon for BB effect, 5mg x1 with zofran and monitor pt has been med rec'd with recent start of metoprolol 12.5mg BID x 1 week, and now with KWAME likely reduced clearance of BB contributing to BB toxicity 06/17/19 17:00 There was effect with glucagon 5 mg, repeated times second dose with improvement of his heart rate. Maintains normotension. Will start glucagon drip 2-5 mix per hour and titrating to heart rate greater than 60. Map is maintained above 65 now and stable. IV calcium 1 g, can go up to 3 g for membrane stabilization. will give Q15min for max 3g for membrane stabilization and supportive measures. additional reglan and gentle fluids for glucagon side effect/nausea [place] Poison control called - recs' as documented, which includes if becoming more symptomatic/hypotension, then start HD insulin 1 unit/kg/hr, with dextrose gtt. pt not at that point now. will monitor with glucagon for now, as maintaining perfusion and normotension while on glucagon, hr improves to 70s. ICU consultation and admission for closer monitoring 06/17/19 17:02 06/17/19 17:31 06/18/19 09:24 Heart Score/ECG Review #1 ECG reviewed & interpreted by me at: 15:00 General ECG Interpretation: Sinus Rhythm 06/17/19 15:01 EKG bradycardia at 37 bpm, prolonged PA intervals noted, normal QRS, narrow complex, low voltage waves ST and T wave segments and morphology normal. Nonspecific T wave abnormalities
[2019-06-17] MEDS ORDERED: ATROPINE SO4 0.4 MG/1 ML VIAL IVPUSH ONE (15:13)
[2019-06-17] MEDS ORDERED: ATROPINE SULFATE 1 MG/10 ML DISP.SYRIN ONE (15:18)
[2019-06-17] MEDS ORDERED: GLUCAGON 1 MG KIT IVPUSH ONE ×3 (15:22→16:21)
[2019-06-17] MEDS ORDERED: ONDANSETRON 4 MG/2 ML VIAL IVPUSH ONE (15:23)
[2019-06-17] MEDS ORDERED: GlUCAGON HUMAN RECOMBINANT 1 MG/VIAL ONE ×2 (15:23→15:25)
[2019-06-17] MEDS ORDERED: ONDANSETRON 4 MG/2 ML VIAL ONE (15:40)
[2019-06-17] MEDS ORDERED: CALCIUM GLUCONATE 10% - 1,000 MG/10 ML VIAL IVPUSH ONE (16:00)
[2019-06-17 16:02] LABS: BASO % 1.5 % (0-2.0); EOS % 0.9 % (0-4.5); HEMOGLOBIN 12.5 GM/dL (11.7-16.9); LYMPH % 22.6 % (8-40); MCH 31.4 pg (25.7-33.7); MCHC 33.8 g/dl (32.0-35.9); MEAN CELL VOLUME 93.1 fl (80-96); MEAN PLT VOLUME 8.8 fl (7.5-11.1); PLATELET COUNT 459 K/MM3 (134-434); RBC 3.98 M/mm3 (4.00-5.60); RDW 19.7 % (11.9-15.9); WHITE BLOOD COUNT 6.1 K/mm3 (4.0-10.0)
--- NOTE | 2019-06-17 16:10 | EKG ---
Test Reason : Blood Pressure : / mmHG Vent. Rate : 037 BPM Atrial Rate : 037 BPM P-R Int : 280 ms QRS Dur : 116 ms QT Int : 528 ms P-R-T Axes : 112 010 109 degrees QTc Int : 414 ms POOR DATA QUALITY, INTERPRETATION MAY BE ADVERSELY AFFECTED MARKED SINUS BRADYCARDIA WITH 1ST DEGREE A-V BLOCK LOW VOLTAGE QRS INCOMPLETE LEFT BUNDLE BRANCH BLOCK NONSPECIFIC ST AND T WAVE ABNORMALITY ABNORMAL ECG WHEN COMPARED WITH ECG OF 04-JUN-2019 13:58, PREMATURE VENTRICULAR COMPLEXES ARE NO LONGER PRESENT TN INTERVAL HAS INCREASED VENT. RATE HAS DECREASED BY 26 BPM Confirmed by DARLING ORTIZ MD ([id number]) on 06/17/2019 4:09:50 PM Referred By: Confirmed By:DARLING ORTIZ MD
[2019-06-17 16:18] LABS: INR 1.75 (0.83-1.09); PROTHROMBIN TIME (PATIENT) 20.8 SEC (9.7-13.0)
[2019-06-17 16:21] LABS: ACTIVATED PTT 44.2 SECONDS (25.2-36.5)
[2019-06-17 16:34] LABS: ALBUMIN 3.3 g/dl (3.4-5.0); BILIRUBIN,TOTAL 0.6 mg/dL (0.2-1); BLOOD UREA NITROGEN 26.7 mg/dL (7-18); CALCIUM 9.2 mg/dL (8.5-10.1); CREATININE 1.5 mg/dL (0.55-1.3); MAGNESIUM 2.5 mg/dL (1.8-2.4); PHOSPHOROUS 2.8 mg/dL (2.5-4.9); POTASSIUM 4.9 mmol/L (3.5-5.1); TOT PROT 6.3 g/dl (6.4-8.2)
[2019-06-17] MEDS ORDERED: CALCIUM CHLORIDE 1 GM/10 ML *DISP.SYRIN ONE (16:47)
[2019-06-17] MEDS ORDERED: METOCLOPRAMIDE HCL INJECTION 10 MG/2 ML VIAL IVPUSH ONE (17:01)
[2019-06-17] MEDS ORDERED: METOCLOPRAMIDE HCL INJECTION 10 MG/2 ML VIAL ONE (17:03)
[2019-06-17] MEDS ORDERED: GLUCAGON IVPUSH SCH (17:30)
[2019-06-17] MEDS ORDERED: WATER IVPUSH SCH (17:30)
[2019-06-17] MEDS ORDERED: DEXTROSE 5% IVPUSH SCH (17:30)
[2019-06-17] MEDS ORDERED: CALCIUM GLUCONATE 10% - 1,000 MG/10 ML VIAL IVPB ONE ×2 (17:30→18:00)
[2019-06-17] MEDS ORDERED: SODIUM CHLORIDE 1,000 ML IV SCH (17:45)
[2019-06-17] MEDS ORDERED: ONDANSETRON 4 MG/2 ML VIAL IVPUSH PRN (18:03)
--- NOTE | 2019-06-17 18:08 | CONSULT ---
Consultation: REQUESTING PROVIDER: Dr. Stoddard CONSULT REQUEST: We have been asked to medically evaluate this patient for (specify). HISTORY OF PRESENT ILLNESS: Patient is a 79 year old male with PMH of s/p Whipple (2018), CAD s/p CABG, cardiac stents x2, lower extremity stents x2, paroxysmal a-fib (on eliquis), prostate CA (radiation), last chemo therapy 2019 who presents with nausea, vomiting x2, diarrhea x5 since yesterday. He has had decreased appetite and poor po intake for 2 days. Pt has had similar symptoms in past, but related to his chemo. He called PCP today who was out of office and told him to come to ED. Pt denies any recent travel or sick contacts. Of note, he was recently started on metoprolol 12.5mg BID 1 week ago (only recent medication change). He endorses mild R lower chest pain. Denies SOB, headaches, lightheadedness, confusion, dizziness, fevers, chills, abd pain. No blood in vomit or diarrhea. On arrival to ED, pt was found to be bradycardic ~40. He was asymptomatic and BP stable. Pt received 1mg atropine, 5mg glucagon x2, 1gm calcium with only mild improvement of HR (remained in high 40s). Pt was then started on glucagon gtt. Dr. Mata was consulted and agreed with treatment plan. Recommend ICU for closer cardiac monitoring. REVIEW OF SYSTEMS: CONSTITUTIONAL: Absent: fever, chills, diaphoresis, generalized weakness, malaise, loss of appetite, weight change HEENT: Absent: rhinorrhea, nasal congestion, throat pain, throat swelling, difficulty swallowing, mouth swelling, ear pain, eye pain, visual changes CARDIOVASCULAR: chest pain Absent: syncope, palpitations, irregular heart rate, lightheadedness, peripheral edema RESPIRATORY: Absent: cough, shortness of breath, dyspnea with exertion, orthopnea, wheezing, stridor, hemoptysis GASTROINTESTINAL: vomiting, diarrhea Absent: abdominal pain, abdominal distension, nausea, constipation, melena, hematochezia GENITOURINARY: Absent: dysuria, frequency, urgency, hesitancy, hematuria, flank pain, genital pain MUSCULOSKELETAL: Absent: myalgia, arthralgia, joint swelling, back pain, neck pain SKIN: Absent: rash, itching, pallor HEMATOLOGIC/IMMUNOLOGIC: Absent: easy bleeding, easy bruising, lymphadenopathy, frequent infections ENDOCRINE: Absent: unexplained weight gain, unexplained weight loss, heat intolerance, cold intolerance NEUROLOGIC: Absent: headache, focal weakness or paresthesias, dizziness, unsteady gait, seizure, mental status changes, bladder or bowel incontinence PSYCHIATRIC: Absent: anxiety, depression, suicidal or homicidal ideation, hallucinations. PHYSICAL EXAMINATION Vital Signs - 24 hr 06/17/19 13:47 Temperature 97.8 F Pulse Rate 50 L Respiratory 28 H Rate Blood Pressure 109/62 O2 Sat by Pulse 94 L Oximetry (%) GENERAL: Awake, alert, and fully oriented, in no acute distress. Thin and cachectic HEAD: Normal with no signs of trauma. EYES: Pupils equal, round and reactive to light, extraocular movements intact, sclera anicteric, conjunctiva clear. No lid lag. EARS, NOSE, THROAT: Ears normal, nares patent, oropharynx clear without exudates. Moist mucous membranes. NECK: Normal range of motion, supple without lymphadenopathy, JVD, or masses. LUNGS: Breath sounds equal, clear to auscultation bilaterally. No wheezes, and no crackles. No accessory muscle use. HEART: Bradycardic, normal S1 and S2 without murmur, rub or gallop. ABDOMEN: Soft, nontender, not distended, normoactive bowel sounds, no guarding, no rebound, no masses. No hepatomegaly or splenomegaly. MUSCULOSKELETAL: Normal range of motion at all joints. No bony deformities or tenderness. No CVA tenderness. UPPER EXTREMITIES: 2+ pulses, warm, well-perfused. No cyanosis. No clubbing. Cap refill <2 seconds. No peripheral edema. LOWER EXTREMITIES: 2+ pulses, warm, well-perfused. No calf tenderness. No peripheral edema. NEUROLOGICAL: Cranial nerves II-XII intact. Normal speech. Normal gait. PSYCHIATRIC: Cooperative. Good eye contact. Appropriate mood and affect. SKIN: Warm, dry, normal turgor, no rashes or lesions noted. Laboratory Results - last 24 hr CBC, BMP 06/17/19 15:19 06/17/19 15:19 Active Medications Calcium Gluconate (Calcium Gluconate 10% -) 1,000 mg IVPB ONCE ONE Stop: 06/17/19 18:01 Chlorhexidine Gluconate (Hibiclens For Decolonization -) 1 applic TP HS JORJE Glucagon 5 mg/ Dextrose 50 mls @ 20 mls/hr IVPUSH Q2H [facility] Stop: 06/17/19 19:29 Sodium Chloride (Normal Saline -) 1,000 mls @ 50 mls/hr IV ASDIR JORJE Stop: 06/18/19 17:47 Mupirocin (Bactroban Ointment (For Decolonization) -) 1 applic NS BID [facility] Stop: 06/22/19 21:59 ASSESSMENT/PLAN: Patient is a 79 year old male with PMH of s/p Whipple (2018), CAD s/p CABG, cardiac stents x2, lower extremity stents x2, paroxysmal a-fib (on eliquis), prostate CA (radiation), last chemo therapy 2019 who presents with nausea, vomiting x2, diarrhea x5 since yesterday. Found to be bradycardic on arrival, likely 2/2 beta stepan overdose. Neuro -Alert and oriented x3 -Stable, no issues Cardiovascular -Bradycardic, likely 2/2 beta stepan overdose >>Pt's HR typically 40s-50s -Received 1mg atropine, 5mg glucagon x2, 1gm calcium and then started on glucagon gtt -EKG: sinus bradycardia, 37 bpm, 1st degree AV block, incomplete LBBB seen on prior EKG, QTc 414. -Echo (06/01/19): LVEF: 30% with posterior lateral wall and apical wall hypokinesis, severe anterior wall hypokinesis. No valvular vegetations are noted. -Cardiology consulted (Dr. Mata): >>Pt started on glucagon gtt 5mg @ 2mg/hr 20ml/hr, finished one bag. Will hold glucagon drip overnight >>If pt becomes hypotensive, give glucagon @ 5ml/hr >>If unresponsive to glucagon, give high dose insulin 500u 50cc saline 1unit/kg/hr, dextrose 1g/kg (keep on 0.5g/kg for infusion), and Q15H BGM -Holding anti-hypertensive medications until pt is hemodynamically stable -Initial trop neg, will trend -Closely monitor lytes (K>4.0, Ph>3.0, Mg>2.0) GI -Zofran 4mg prn for nausea Renal -KWAME, Cr: 1.5 -Gentle hydration with IV NS @ 50ml/hr FEN -IV NS @ 50ml/hr -Closely monitor lytes (K>4.0, Mg>3.0, Ph>2.0) -Sodium controlled diet DVT ppx -Pt is on eliquis Dispo: We will continue to follow the patient. Thank you for this consultative opportunity. Visit type - Emergency Visit Emergency Visit: No - New Patient This patient is new to me today: No - Critical Care Critical Care patient: Yes Total Critical Care Time (in minutes): 45 Critical Care Statement: The care of this patient involved high complexity decision making to prevent further life threatening deterioration of the patient's condition and/or to evaluate & treat vital organ system(s) failure or risk of failure. ATTENDING PHYSICIAN STATEMENT I saw and evaluated the patient. I reviewed the resident's note and discussed the case with the resident. I agree with the resident's findings and plan as documented. SUBJECTIVE: OBJECTIVE: ASSESSMENT AND PLAN:
--- NOTE | 2019-06-17 18:30 | PDOC ---
*Physical Exam - Vital Signs Last Vital Signs Temp Pulse Resp BP Pulse Ox 97.8 F 50 L 28 H 109/62 94 L 06/17/19 13:47 06/17/19 13:47 06/17/19 13:47 06/17/19 13:47 06/17/19 13:47 ED Treatment Course - LABORATORY CBC & Chemistry Diagram: 06/20/19 06:05 06/21/19 14:00 - ADDITIONAL ORDERS Additional order review: Laboratory Results 06/17/19 06/17/19 06/17/19 15:53 15:19 15:19 PT with INR 20.80 H INR 1.75 H PTT (Actin FS) 44.2 H Sodium 137 Potassium 4.9 Chloride 104 Carbon Dioxide 27 Anion Gap 6 L BUN 26.7 H Creatinine 1.5 H Est GFR (CKD-EPI)AfAm 50.59 Est GFR (CKD-EPI)NonAf 43.65 Random Glucose 133 H Calcium 9.2 Phosphorus 2.8 Magnesium 2.5 H Total Bilirubin 0.6 AST 38 H ALT 39 Alkaline Phosphatase 430 H Creatine Kinase Troponin I Total Protein 6.3 L Albumin 3.3 L Blood Type O NEGATIVE Antibody Screen Negative 06/17/19 15:19 PT with INR INR PTT (Actin FS) Sodium Potassium Chloride Carbon Dioxide Anion Gap BUN Creatinine Est GFR (CKD-EPI)AfAm Est GFR (CKD-EPI)NonAf Random Glucose Calcium Phosphorus Magnesium Total Bilirubin AST ALT Alkaline Phosphatase Creatine Kinase 29 Troponin I < 0.02 Total Protein Albumin Blood Type Antibody Screen 06/17/19 15:19 RBC 3.98 L MCV 93.1 MCHC 33.8 RDW 19.7 H MPV 8.8 Neutrophils % 50.0 D Lymphocytes % 22.6 Monocytes % 25.0 H D Eosinophils % 0.9 Basophils % 1.5 - Medications Given in the ED: ED Medications Discontinued Medications Generic Name Dose Route Start Last Admin Trade Name Freq PRN Reason Stop Dose Admin Atropine Sulfate 0.5 mg 06/17/19 15:13 06/17/19 15:17 Atropine Injection - IVPUSH 06/17/19 15:14 0.5 mg ONCE ONE Administration Calcium Gluconate 1,000 mg 06/17/19 16:00 06/17/19 16:56 Calcium Gluconate 10% - IVPUSH 06/17/19 16:01 1,000 mg ONCE ONE Administration Calcium Gluconate 1,000 mg 06/17/19 17:30 06/17/19 17:56 Calcium Gluconate 10% - IVPB 06/17/19 17:31 1,000 mg ONCE ONE Administration Glucagon 5 mg 06/17/19 15:22 06/17/19 15:36 Glucagon - IVPUSH 06/17/19 15:23 5 mg ONCE ONE Administration Glucagon 5 mg 06/17/19 15:43 06/17/19 16:56 Glucagon - IVPUSH 06/17/19 15:44 5 mg ONCE ONE Administration Metoclopramide HCl 10 mg 06/17/19 17:01 06/17/19 17:56 Reglan Injection - IVPUSH 06/17/19 17:02 10 mg ONCE ONE Administration Ondansetron HCl 4 mg 06/17/19 15:23 06/17/19 15:46 Zofran Injection IVPUSH 06/17/19 15:24 4 mg ONCE ONE Administration Sodium Chloride 1,000 ml 06/17/19 14:54 06/17/19 15:36 Normal Saline - IV 06/17/19 14:55 Not Given ONCE ONE Sodium Chloride 500 ml 06/17/19 15:10 06/17/19 15:17 Normal Saline - IV 06/17/19 15:11 500 ml ONCE ONE Administration Sodium Chloride 500 ml 06/17/19 17:01 06/17/19 17:56 Normal Saline - IV 06/17/19 17:02 500 ml ONCE ONE Administration Medical Decision Making - Medical Decision Making 06/17/19 18:29 ICU 79-year-old male history of pancreatic cancer status post Whipple recently receiving chemo CABG CAD hypertension hyperlipidemia and A. fib recently started on a beta-stepan signed out to me at 4:30 PM due to concerns for beta- stepan toxicity patient received glucagon and was started on glucagon drip for severe bradycardia his heart rate did respond from the low 30s up to the 70s after receiving glucagon he was given Zofran for nausea secondary to glucagon due to the fact there is no more glucagon in the hospital we depleted the supply patient will be transferred to ICU at [facility] discussed with a Dr. Paz at the ER at [facility] who accepted the transfer patient is currently stable with a heart rate in the 60s blood pressure is 117/60 Discharge - Discharge Information Problems reviewed: Yes Clinical Impression/Diagnosis: KWAME (acute kidney injury), 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 Condition: Improved - Follow up/Referral - Patient Discharge Instructions - Post Discharge Activity
[2019-06-17] MEDS ORDERED: CALCIUM GLUCONATE 10% - 1,000 MG/10 ML VIAL ONE (18:41)
--- NOTE | 2019-06-17 20:03 | PN ---
Teaching Attending Note Name of Resident: Orlando Baldwin ATTENDING PHYSICIAN STATEMENT I saw and evaluated the patient. I reviewed the resident's note and discussed the case with the resident. I agree with the resident's findings and plan as documented. SUBJECTIVE: OBJECTIVE: HEENT: No Jaundice, eye redness or discharge, PERRLA, EOMI. Normocephalic, atraumatic. External ears are normal and hearing is grossly intact. No nasal discharge. Neck: Supple, nontender. No palpable adenopathy or thyromegaly. No JVD Chest: Good effort. Clear to auscultation and percussion. Heart: Regular. No S3, rub or murmur Abdomen: Not distended, soft, nontender and no HSM. No rebound or guarding. Normal bowel sounds. Ext: Peripheral pulses intact. No leg edema. Skin: Warm and dry. No petechiae, rash or ecchymosis. Neuro: Alert. Oriented x3. CN 2-12 grossly intact. Sensation grossly intact in all four extremities and DTR are symmetric. Psych: Appropriate mood and affect. Good insight. Denies alcohol, tobacco or illicit drug use. No sick contacts or recent travels. Will continue comprehensive care for all of patients comorbid conditions. Hypoalbuminemia - Possibly due to combined effects of malnutrition and inflammation associated with comorbid chronic conditions. Will ensure adequate dietary protein intake and also consult [facility]. DM For now, we will hold the home diabetes drugs and implement sliding scale insulin regimen. Provide comprehensive diabetes care with patient teaching and counseling about the importance of adherence to prescribed diabetes regimen, euglycemia, eye care and foot care. Tobacco Use Counseled on risks associated with tobacco use. We will provide patient all the necessary assistance to facilitate smoking cessation and prescribe Nicotine patch. CKD/KWAME - Will consult nephrology and avoid nephrotoxic agents such as NSAIDS, aminoglycosides, contrast dyes and certain Alternative medicine products. Anemia -Do basic anemia work up including serial stool guaiacs, reticulocyte count and iron studies. Would benefit from Procrit therapy once iron replete. Polypharmacy - Will liaise with patient's PCP to discontinue medications that are not absolutely essential. Obesity Counseled on the risks associated with obesity. Will provide patient all the necessary assistance, counseling and positive reinforcement to facilitate weight loss. Consult [facility]. Alcohol abuse - Implement [facility] alcohol withdrawal protocol and do neurochecks. Implement seizure, fall and aspiration precautions. Treat with thiamine and folic acid and monitor electrolytes (Ca,Mg,K,P). Counseled patient about abstaining from alcohol. Will consult physical security specialist and refer to alcohol detox upon discharge. Hypertension - Restart suitable outpatient antihypertensive drugs when clinically appropriate. Revise regimen to ensure [id number] excellent BP control and direct care counselor patient on the injurious effects of uncontrolled hypertension. Nonpharmacologic measures to control hypertension like weight loss , salt restriction and exercise discussed. Importance of adherence to treatment regimen and attainment of normotension emphasized. DVT prophylaxis - Lovenox 40 mg SQ q 24 hours. Heparin 5000u sq tid. Advance directives - Full code ASSESSMENT AND PLAN:
[2019-06-17] MEDS ORDERED: GLUCAGON 1 MG KIT IVPUSH PRN (20:07)
[2019-06-17 20:51] LABS: URINE APPEARANCE Clear; URINE BILIRUBIN Negative (NEGATIVE); URINE COLOR Yellow; URINE GLUCOSE (UA) Negative (NEGATIVE); URINE KETONE Negative (NEGATIVE); URINE LEUK ESTERASE Negative (NEGATIVE); URINE NITRITE Negative (NEGATIVE); URINE PROTEIN Negative (NEGATIVE); URINE UROBILINOGEN 0.2 mg/dL (0.2-1.0)
--- NOTE | 2019-06-17 21:16 | HP ---
CHIEF COMPLAINT: nausea/vomiting and diarrhea since yesterday PCP:Dr Pham Cardiology: Dr. Mata Medical Oncologist: Dr. Gomez Surgery Oncologist: Dr. Bethanie Leon HISTORY OF PRESENT ILLNESS: Mr. Waddell is a 79 year old male with past medical history significant for s/p Whipple (2018), CAD s/p CABG, cardiac stents x2, EF 30% by echo 06/01/2019, lower extremity stents x2, paroxysmal a-fib on eliquis, prostate CA (radiation) , last chemo therapy 2019 who presented with symptoms of nausea, vomiting x2, and diarrhea x5 that started yesterday. He reported having poor PO intake, only ate small amounts of food today. He reported he was started on metoprolol 12.5mg BID x 1 week ago. He reported that he has had similar episodes in the past before, previously related to his chemotherapy. He reported associated lower right sided chest pain. He denied abdominal pain/ dysuria, shortness of breath, headache, fever/chills. ER course was notable for severe bradycardia, EKG demonstrated sinus bradycardia with heart rate in the 30's with 1st degree heart block, incomplete left bundle branch block, received atropine w/ no improvement in heart rate, ER physician spoke with Cardiology- Dr. Mata, ? beta leydi toxicity,received 3 dosage of IV calcium gluconate and 2 dosages of IV glucagon now with improved heart rates to his baseline in the 60's , poison control was called and if becomes symptomatic recommended insulin gtt. Labs notable for creatinine 1.5. He is being admitted to ICU for critical care monitoring. Recent Travel: no PAST MEDICAL HISTORY: paroxysmal a-fib on eliquis, prostate CA (radiation), last chemo therapy 2019 PAST SURGICAL HISTORY: Whipple 02/2019 CAD s/p CABG, cardiac stents x2, lower extremity stents x2 Social History: Smoking:no Alcohol:no Drugs:no Allergies strawberry Allergy (Severe, Verified 06/17/19 13:41) Swelling pepper (genus Capsicum) Allergy (Unknown, Verified 06/17/19 13:41) black pepper Allergy (Verified 06/17/19 13:41) iohexol [From Omnipaque] Allergy (Verified 06/17/19 13:41) Rash Iodinated Contrast Media Adverse Reaction (Verified 06/17/19 13:41) Rash red pepper Allergy (Uncoded 06/17/19 13:41) HOME MEDICATIONS: Home Medications Medication Instructions Recorded Folic Acid 1 mg PO DAILY 11/04/16 Tamsulosin HCl [Flomax] 0.4 mg PO HS 11/07/17 Allopurinol [Zyloprim -] 100 mg PO DAILY 09/04/18 Lisinopril [Zestril] 5 mg PO DAILY 09/04/18 Tramadol HCl 50 mg PO ASDIR PRN 09/04/18 Isosorbide Mononitrate [Isosorbide 60 mg PO HS 10/12/18 Mononitrate ER] Apixaban [Eliquis] 5 mg PO BID 01/11/19 Atorvastatin Calcium 40 mg PO HS 01/11/19 Ranolazine [Ranexa] 500 mg PO BID 01/11/19 Ondansetron [Zofran *Odt*] 8 mg SL TID PRN 05/29/19 Metoprolol Tartrate [Lopressor -] 12.5 mg PO BID tablet 06/06/19 Multivit-Minerals 15 ml PO DAILY cup 06/06/19 [Certavite-Antioxidant Liquid] Pantoprazole Sodium [Protonix -] 40 mg PO DAILY 06/17/19 REVIEW OF SYSTEMS CONSTITUTIONAL: Absent: fever, chills, diaphoresis, generalized weakness, malaise, loss of appetite, weight change, poor oral intake HEENT: Absent: rhinorrhea, nasal congestion, throat pain, throat swelling, difficulty swallowing, mouth swelling, ear pain, eye pain, visual changes CARDIOVASCULAR: Absent: right lower sided chest pain, syncope, palpitations, irregular heart rate, lightheadedness, peripheral edema, bradycardia RESPIRATORY: Absent: cough, shortness of breath, dyspnea with exertion, orthopnea, wheezing, stridor, hemoptysis GASTROINTESTINAL: Absent: abdominal pain, abdominal distension, nausea, vomiting, diarrhea, constipation, melena, hematochezia GENITOURINARY: Absent: dysuria, frequency, urgency, hesitancy, hematuria, flank pain, genital pain MUSCULOSKELETAL: Absent: myalgia, arthralgia, joint swelling, back pain, neck pain SKIN: Absent: rash, itching, pallor HEMATOLOGIC/IMMUNOLOGIC: Absent: easy bleeding, easy bruising, lymphadenopathy, frequent infections ENDOCRINE: Absent: unexplained weight gain, unexplained weight loss, heat intolerance, cold intolerance NEUROLOGIC: Absent: headache, focal weakness or paresthesias, dizziness, unsteady gait, seizure, mental status changes, bladder or bowel incontinence PSYCHIATRIC: Absent: anxiety, depression, suicidal or homicidal ideation, hallucinations. PHYSICAL EXAMINATION Vital Signs - 24 hr 06/17/19 06/17/19 13:47 17:43 Temperature 97.8 F Pulse Rate 50 L Pulse Rate [ 71 Right Brachial] Respiratory 28 H 17 Rate Blood Pressure 109/62 Blood Pressure 119/74 [Right Arm] O2 Sat by Pulse 94 L 100 Oximetry (%) GENERAL: awake, alert, and fully oriented, no acute distress HEAD: normal EYES: pupils equal, round and reactive to light EARS, NOSE, THROAT: ears normal, nares patent NECK: no JVD, normal LUNGS: breath sounds equal, clear to auscultation bilaterally no wheezes no crackles no accessory muscle use HEART: rate normal and regular pulse 60's ABDOMEN: soft nontender not distended normoactive bowel sounds MUSCULOSKELETAL: normal range of motion at all joints UPPER EXTREMITIES: 2+ pulses warm well-perfused no cyanosis no peripheral edema LOWER EXTREMITIES: 2+ pulses warm well-perfused no pitting edema NEUROLOGICAL: Cranial nerves II-XII intact no facial droop or grimace PSYCHIATRIC: cooperative good eye contact appropriate mood SKIN: warm on palpation nail beds and lips pink Laboratory Results - last 24 hr 06/17/19 06/17/19 06/17/19 15:19 15:19 15:19 WBC 6.1 RBC 3.98 L Hgb 12.5 Hct 37.0 D MCV 93.1 MCH 31.4 MCHC 33.8 RDW 19.7 H Plt Count 459 H D MPV 8.8 Absolute Neuts (auto) 3.1 Neutrophils % 50.0 D Neutrophils % (Manual) 46.4 D Band Neutrophils % 0.0 Lymphocytes % 22.6 Lymphocytes % (Manual) 13.4 Monocytes % 25.0 H D Monocytes % (Manual) 24 H D Eosinophils % 0.9 Eosinophils % (Manual) 1.0 D Basophils % 1.5 Basophils % (Manual) 2.1 H D Myelocytes % (Man) 0 Promyelocytes % (Man) 0 Blast Cells % (Manual) 0 Nucleated RBC % 0 Metamyelocytes 0 PT with INR INR PTT (Actin FS) Sodium 137 Potassium 4.9 Chloride 104 Carbon Dioxide 27 Anion Gap 6 L BUN 26.7 H Creatinine 1.5 H Est GFR (CKD-EPI)AfAm 50.59 Est GFR (CKD-EPI)NonAf 43.65 Random Glucose 133 H Calcium 9.2 Phosphorus 2.8 Magnesium 2.5 H Total Bilirubin 0.6 AST 38 H ALT 39 Alkaline Phosphatase 430 H Creatine Kinase 29 Troponin I < 0.02 Total Protein 6.3 L Albumin 3.3 L Urine Color Urine Appearance Urine pH Ur Specific Stacy Urine Protein Urine Glucose (UA) Urine Ketones Urine Blood Urine Nitrite Urine Bilirubin Urine Urobilinogen Ur Leukocyte Esterase Urine Osmolality U Random Total Protein Ur Random Sodium Blood Type Antibody Screen 06/17/19 06/17/19 06/17/19 15:19 15:53 19:57 WBC RBC Hgb Hct MCV MCH MCHC RDW Plt Count MPV Absolute Neuts (auto) Neutrophils % Neutrophils % (Manual) Band Neutrophils % Lymphocytes % Lymphocytes % (Manual) Monocytes % Monocytes % (Manual) Eosinophils % Eosinophils % (Manual) Basophils % Basophils % (Manual) Myelocytes % (Man) Promyelocytes % (Man) Blast Cells % (Manual) Nucleated RBC % Metamyelocytes PT with INR 20.80 H INR 1.75 H PTT (Actin FS) 44.2 H Sodium Potassium Chloride Carbon Dioxide Anion Gap BUN Creatinine Est GFR (CKD-EPI)AfAm Est GFR (CKD-EPI)NonAf Random Glucose Calcium Phosphorus Magnesium Total Bilirubin AST ALT Alkaline Phosphatase Creatine Kinase Troponin I < 0.02 Total Protein Albumin Urine Color Urine Appearance Urine pH Ur Specific Stacy Urine Protein Urine Glucose (UA) Urine Ketones Urine Blood Urine Nitrite Urine Bilirubin Urine Urobilinogen Ur Leukocyte Esterase Urine Osmolality U Random Total Protein Ur Random Sodium Blood Type O NEGATIVE Antibody Screen Negative 06/17/19 06/17/19 06/17/19 20:00 20:00 20:00 WBC RBC Hgb Hct MCV MCH MCHC RDW Plt Count MPV Absolute Neuts (auto) Neutrophils % Neutrophils % (Manual) Band Neutrophils % Lymphocytes % Lymphocytes % (Manual) Monocytes % Monocytes % (Manual) Eosinophils % Eosinophils % (Manual) Basophils % Basophils % (Manual) Myelocytes % (Man) Promyelocytes % (Man) Blast Cells % (Manual) Nucleated RBC % Metamyelocytes PT with INR INR PTT (Actin FS) Sodium Potassium Chloride Carbon Dioxide Anion Gap BUN Creatinine Est GFR (CKD-EPI)AfAm Est GFR (CKD-EPI)NonAf Random Glucose Calcium Phosphorus Magnesium Total Bilirubin AST ALT Alkaline Phosphatase Creatine Kinase Troponin I Total Protein Albumin Urine Color Yellow Urine Appearance Clear Urine pH 7.0 D Ur Specific Stacy 1.020 Urine Protein Negative Urine Glucose (UA) Negative Urine Ketones Negative Urine Blood Negative Urine Nitrite Negative Urine Bilirubin Negative Urine Urobilinogen 0.2 Ur Leukocyte Esterase Negative Urine Osmolality 579 U Random Total Protein Ur Random Sodium 88 Blood Type Antibody Screen 06/17/19 20:00 WBC RBC Hgb Hct MCV MCH MCHC RDW Plt Count MPV Absolute Neuts (auto) Neutrophils % Neutrophils % (Manual) Band Neutrophils % Lymphocytes % Lymphocytes % (Manual) Monocytes % Monocytes % (Manual) Eosinophils % Eosinophils % (Manual) Basophils % Basophils % (Manual) Myelocytes % (Man) Promyelocytes % (Man) Blast Cells % (Manual) Nucleated RBC % Metamyelocytes PT with INR INR PTT (Actin FS) Sodium Potassium Chloride Carbon Dioxide Anion Gap BUN Creatinine Est GFR (CKD-EPI)AfAm Est GFR (CKD-EPI)NonAf Random Glucose Calcium Phosphorus Magnesium Total Bilirubin AST ALT Alkaline Phosphatase Creatine Kinase Troponin I Total Protein Albumin Urine Color Urine Appearance Urine pH Ur Specific Stacy Urine Protein Urine Glucose (UA) Urine Ketones , maintained on continuos Urine Blood Urine Nitrite Urine Bilirubin Urine Urobilinogen Ur Leukocyte Esterase Urine Osmolality U Random Total Protein 19.6 H Ur Random Sodium Blood Type Antibody Screen ASSESSMENT/PLAN: 79 year old male with past medical history significant for s/p Whipple (2018), CAD s/p CABG, cardiac stents x2, EF 30% by echo 06/01/2019, lower extremity stents x2, paroxysmal a-fib on eliquis, prostate CA (radiation), last chemo therapy 2019 who presented with symptoms of nausea, vomiting x2, and diarrhea x5 since yesterday. He was found to have severe bradycardia on presentation and symptoms may be related to beat leydi toxicity in setting of KWAME. He is being admitted to ICU for critical care monitoring #1 Bradycardia Secondary to ? Beta Leydi Toxicity/Poor Creatinine Clearance Currently asymptomatic, heart rate in the 60's, received several dosages of IV glucagon and calcium gluconate Metoprolol discontinued, avoid AV claudine blockers Cardiology- Dr. Mata consulted Critical Care consulted- Dr. Sanchez , admitted to ICU External zoll at bedside with pacer pads on patient if needs external pacing Check TSH Repeat EKG in am #2 Paraoxysmal Atrial Fibrillation Avoid av claudine blockers due to bradycardia Continue with eliquis for anticoagulation #3 Coronary Artery Disease/Ischemic Cardiomyopathy Denies anginal symptoms, appears euvolemic on exam Troponin x 2 negative, EKG with incomplete LBBB Echo 06/01/2019 - ejection fraction is 30% with posterior lateral wall moderate hypokinesis as well as apical wall hypokinesis, severe anterior wall hypokinesis. Continue imdur, ranexa and statin therapy Not on baby asa as taking systemic anticoagulation #4 Acute Renal Insufficiency Creatinine 1.5(baseline creatine 0.7-1.2) Will hold lisinopril in this setting and BP ranging low normal Nephrology consulted- Dr. Esparza #5 BPH Continue with tamulosin FEN will avoid IV fluids w/ hx of CMP monitor BMP daily low sodium, heart healthy diet DVT Prophylaxsis Continue with Eliquis Visit type - Emergency Visit Emergency Visit: Yes ED Registration Date: 06/17/19 Care time: The patient presented to the Emergency Department on the above date and was hospitalized for further evaluation of their emergent condition. - New Patient This patient is new to me today: Yes Date on this admission: 06/18/19 - Critical Care Critical Care patient: Yes Total Critical Care Time (in minutes): 30 Critical Care Statement: The care of this patient involved high complexity decision making to prevent further life threatening deterioration of the patient 's condition and/or to evaluate & treat vital organ system(s) failure or risk of failure.
[2019-06-17] MEDS ORDERED: CHLORHEXIDINE GLUCONATE 4% CLEANSER FOR DECOLONIZATION TP SCH (22:00)
[2019-06-17] MEDS ORDERED: HEPARIN NA (PORCINE) 5,000 UNITS/ML 1ML VIAL SQ SCH (22:00)
[2019-06-17] MEDS ORDERED: MUPIROCIN 2% TOPICAL OINTMENT FOR DECOLONIZATION NS SCH (22:00)
[2019-06-17] MEDS ORDERED: APIXABAN 5 MG TABLET ONE (22:45)
[2019-06-17] MEDS ORDERED: ATORVASTATIN CA 40 MG TABLET (FP) ONE (22:45)
[2019-06-17] MEDS: APIXABAN 5 MG TABLET PO SCH (23:03)
[2019-06-17] MEDS: ATORVASTATIN CA 40 MG TABLET (FP) PO SCH (23:03)
[2019-06-17] MEDS: RANOLAZINE E.R. 500 MG TABLET (FP) PO SCH (23:03)
[2019-06-17 23:23] LABS: OSMOLALITY,SERUM 289 mosm/kg (278-305)
--- NOTE | 2019-06-18 04:15 | CON.CARD ---
Consult Consult Specialty:: cardiology Reason for Consultation:: bradycardia - History of Present Illness Chief Complaint: Pt presently A&Ox3; no abdominal or chest pain; no dizziness. History of Present Illness: Mr. Waddell is a 79 yr old man (b. [birth year]ise) with past medical history of coronary artery disease, s/p CABG and coronary stents (latest coronary angiogram, 10/2018 at [facility]: no PCI required), paroxysmal A. fib (on metoprolol and Eliquis), prostate CA, pancreatic (ampulla) CA s/p Whipple's procedure, anemia, hypertension, hyperlipidemia, GERD, hx urinary retention/UTI-->prolonged hospitalization;gout, overweight, relatively sedentary, admitted earlier this month with nausea, vomiting, diarrhea, and chest pain in the setting of recent IV chemotherapy, and now presents to ER with similar sympthms that began again yesterday. Pt was noted to be bradycardic; he has been on metoprolol 12.5 mg bid , was found to be markedly bradycardic (EKG notes sinus bradycardia, 1st degree AVB, HR 37 bpm), and was given IV atropine, then IV glucagon. HR in ER now 45- 50 bpm; BP 110-12- mmHg systolic.Pt is A&Ox3; no further N/V/D; he just ate a sandwich. Pt has had similar previous episodes of N&V and diarrhea, and says chemotherapy was postponed after the last event. 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 - History Source History Provided By: Patient, Medical Record Limitations to Obtaining History: No Limitations - Past Medical History Cardio/Vascular: Yes: AFIB, CAD, CHF, HTN, Hyperlipdemia, Other (PVD, CAD, Coronary Bypass, CAD, Stent lower left leg) Gastrointestinal: Yes: GERD Hepatobiliary: Yes: Other (dilated CBD ? etiology) Renal/: Yes: BPH (had laser TURB following the RT), Cancer (prostate cancer treated with RT seeds and ext. beam), Renal Calculi, Other (urethral stricture dilated in the past and culminating in urosepsis) Heme/Onc: Yes: Anemia, Cancer Psych: Yes: Anxiety Musculoskeletal: Yes: Osteoarthritis (Chronic Lower back pain) Rheumatology: Yes: Gout - Past Surgical History Past Surgical History: Yes: CABG, Stent (stents, both cardiac and LLE) Additional Surgical History: Whipple's - Alcohol/Substance Use Hx Alcohol Use: No History of Substance Use: reports: None - Smoking History Smoking history: Unknown if ever smoked Have you smoked in the past 12 months: No Aproximately how many cigarettes per day: 0 If you are a former smoker, when did you quit?: 2002 - Social History Usual Living Arrangement: With Spouse ADL: Independent Occupation: Retired [employer]er History of Recent Travel: No Home Medications - Allergies Allergies/Adverse Reactions: Allergies Allergy/AdvReac Type Severity Reaction Status Date / Time strawberry Allergy Severe Swelling Verified 06/17/19 13:41 pepper (genus Capsicum) Allergy Unknown Verified 06/17/19 13:41 black pepper Allergy Verified 06/17/19 13:41 iohexol [From Omnipaque] Allergy Rash Verified 06/17/19 13:41 Iodinated Contrast Media AdvReac Rash Verified 06/17/19 13:41 red pepper Allergy Uncoded 06/17/19 13:41 - Home Medications Home Medications: Ambulatory Orders RX: Folic Acid 1 mg PO DAILY 11/04/16 RX: Tamsulosin HCl [Flomax] 0.4 mg PO HS 11/07/17 RX: Allopurinol [Zyloprim -] 100 mg PO DAILY 09/04/18 RX: Lisinopril [Zestril] 5 mg PO DAILY 09/04/18 RX: Tramadol HCl 50 mg PO ASDIR PRN 09/04/18 RX: Isosorbide Mononitrate [Isosorbide Mononitrate ER] 60 mg PO HS 10/12/18 RX: Apixaban [Eliquis] 5 mg PO BID 01/11/19 RX: Atorvastatin Calcium 40 mg PO HS 01/11/19 RX: Ranolazine [Ranexa] 500 mg PO BID 01/11/19 RX: Ondansetron [Zofran *Odt*] 8 mg SL TID PRN 05/29/19 RX: Metoprolol Tartrate [Lopressor -] 12.5 mg PO BID tablet 06/06/19 RX: Multivit-Minerals [Certavite-Antioxidant Liquid] 15 ml PO DAILY cup Pantoprazole Sodium [Protonix -] 40 mg PO DAILY 06/17/19 Family Medical History Family History: Denies Review of Systems - Review of Systems Constitutional: reports: Weakness Eyes: reports: No Symptoms HENT: reports: No Symptoms Neck: reports: No Symptoms Cardiovascular: reports: Chest Pain Respiratory: reports: SOB on Exertion Gastrointestinal: reports: Diarrhea, Nausea, Vomiting Genitourinary: reports: No Symptoms Breasts: reports: No Symptoms Reported Musculoskeletal: reports: Muscle Weakness Integumentary: reports: No Symptoms Neurological: reports: Weakness Endocrine: reports: No Symptoms Hematology/Lymphatic: reports: No Symptoms Psychiatric: reports: Anxiety - Risk Factors Known Risk Factors: Yes: Age, Gender, Hypercholesterolemia, Hypertension, Physical Inactivity, Other (systolic CHF; anemia) Vital Signs: Vital Signs Temperature 97.8 F 06/17/19 13:47 Pulse Rate 71 06/18/19 01:00 Respiratory Rate 16 06/18/19 01:00 Blood Pressure 126/75 06/18/19 01:00 O2 Sat by Pulse Oximetry (%) 97 06/18/19 01:00 Constitutional: Yes: Anxious, Pallor Eyes: Yes: WNL HENT: Yes: WNL Neck: Yes: WNL Respiratory: Yes: Regular Gastrointestinal: Yes: Soft. No: Tenderness Renal/: No: Anuria Cardiovascular: Yes: Bradycardia JVD: No Carotid Bruit: No PMI: Displaced Heart Sounds: Yes: S1 (split), S2 Musculoskeletal: Yes: Muscle Weakness Extremities: Yes: Cool Edema: No Peripheral Pulses WNL: Yes Integumentary: Yes: Other (abdominal surgical scar (Whipple's) nontender; appears well-healed) Neurological: Yes: Alert, Oriented - Other Data Labs, Other Data: CBC, BMP 06/17/19 15:19 06/17/19 15:19 INR, PTT INR 1.75 (0.83-1.09) H 06/17/19 15:19 Troponin, BNP 06/17/19 06/17/19 15:19 19:57 Troponin I < 0.02 < 0.02 Troponin, BNP 06/17/19 06/17/19 15:19 19:57 Troponin I < 0.02 < 0.02 Abnormal Lab Results 06/17/19 06/17/19 06/17/19 15:19 15:19 15:19 RBC 3.98 L RDW 19.7 H Plt Count 459 H D Monocytes % 25.0 H D Monocytes % (Manual) 24 H D Basophils % (Manual) 2.1 H D PT with INR 20.80 H INR 1.75 H PTT (Actin FS) 44.2 H Anion Gap 6 L BUN 26.7 H Creatinine 1.5 H Random Glucose 133 H Magnesium 2.5 H AST 38 H Alkaline Phosphatase 430 H Total Protein 6.3 L Albumin 3.3 L U Random Total Protein 06/17/19 20:00 RBC RDW Plt Count Monocytes % Monocytes % (Manual) Basophils % (Manual) PT with INR INR PTT (Actin FS) Anion Gap BUN Creatinine Random Glucose Magnesium AST Alkaline Phosphatase Total Protein Albumin U Random Total Protein 19.6 H Echo: Report Reviewed Prior Cardiac Procedures: Cardiac Catheterization, PTCA with Stent Ejection Fraction %: LVEF < 40 % Imaging - Results Chest X-ray: Image Reviewed EKG: Image Reviewed Problem List - Problems (1) KWAME (acute kidney injury) Assessment/Plan: BUN/Cr elevated since last admission 2 weeks ago. Recommend gentle hydration (hx systolic LV dysfunction). F/u BUN/Cr, electrolytes, daily weight, Is and Os. Code(s): N17.9 - ACUTE KIDNEY FAILURE, UNSPECIFIED (2) ASHD (arteriosclerotic heart disease) Code(s): I25.10 - ATHSCL HEART DISEASE OF [place] CORONARY ARTERY W/O ANG PCTRS (3) Ampulla of Vater mass Assessment/Plan: s/p Whipple's procedure 02/2019. Code(s): K83.8 - OTHER SPECIFIED DISEASES OF BILIARY TRACT (4) Anemia Assessment/Plan: Hb WNL, but dehyrated from N/V/Diarrhea; f/u Hb as fluids are restored. Code(s): D64.9 - ANEMIA, UNSPECIFIED (5) Anxiety Code(s): F41.9 - ANXIETY DISORDER, UNSPECIFIED (6) Atypical chest pain Assessment/Plan: TNI 0.02; f/u serially. EKG: marked sinus bradycardia; nonspecific STT changes which are not significantly changed from EKG admission earlier this month. On Imdur. Beta blockers held presently. Hx CABG, coronary stents. Prior episodes of chest pain led to coronary angiograms, the latest 10/2018 (no PCI required). Code(s): R07.89 - OTHER CHEST PAIN (7) Hyperlipidemia Assessment/Plan: On atorvastatin LDL 43 mg/dL earlier this month; CK 29. Code(s): E78.5 - HYPERLIPIDEMIA, UNSPECIFIED (8) Nausea and vomiting Code(s): R11.2 - NAUSEA WITH VOMITING, UNSPECIFIED Qualifiers: Vomiting type: unspecified Vomiting Intractability: non-intractable Qualified Code(s): R11.2 - Nausea with vomiting, unspecified (9) Paroxysmal atrial fibrillation Code(s): I48.0 - PAROXYSMAL ATRIAL FIBRILLATION (10) Sinus bradycardia Assessment/Plan: EKG: marked sinus bradycardia, 1st degree AVB; nonspecific STT changes ( compared to early May EKG, ANAND increased, HR reduced 26 bpm; pt had been started on that admission on metoprolol 12.5 mg bid for PAF, systolic LV dysfunction, and HTN). In ER, HR noted in high 30s bpm; reportedly given atropine with no effect; IV glucagon resulted in HR increase. Presently A&Ox3; no chest pain, abdominal pain, dizziness, dyspnea, or palpitations. Plan: Beta blockers held; glucagon available prn. Follow with telemetry monitoring. Gentle hydration (N, V, and diarrhea; elevated BUN/Cr). Code(s): R00.1 - BRADYCARDIA, UNSPECIFIED (11) Pancreatic cancer Assessment/Plan: s/p Whipple's procedure 02/2019. Chemotherapy stopped earlier this month, per pt, after repeated bouts of N, V, and diarrhea. F/u with oncologist. Code(s): C25.9 - MALIGNANT NEOPLASM OF PANCREAS, UNSPECIFIED
[2019-06-18] MEDS: SODIUM CHLORIDE 1,000 ML IV SCH (06:33)
[2019-06-18 07:37] LABS: ALBUMIN 3.1 g/dl (3.4-5.0); BILIRUBIN,TOTAL 0.7 mg/dL (0.2-1); BLOOD UREA NITROGEN 28.2 mg/dL (7-18); CALCIUM 9.6 mg/dL (8.5-10.1); CREATININE 1.2 mg/dL (0.55-1.3); MAGNESIUM 2.2 mg/dL (1.8-2.4); PHOSPHOROUS 3.7 mg/dL (2.5-4.9); POTASSIUM 4.4 mmol/L (3.5-5.1); TOT PROT 5.7 g/dl (6.4-8.2)
--- NOTE | 2019-06-18 07:37 | CONSULT ---
Consult Consult Specialty:: Nephrology Reason for Consultation:: KWAME - History of Present Illness Chief Complaint: diarrhea History of Present Illness: Pt is a 79 year old male with pmhx of cad, cabg, whipple procedure, chf with 30 percent ef, a-fib, prostate cancer who presents to the ER with nausea, vomiting and diarrhea. He complains of decreased appetite. He has not had much to drink either. He was found to have KWAME and I was called to evaluate him. He was found to have bradycardia in the ER. He was on metoprolol as outpt. - History Source History Provided By: Patient - Past Medical History Cardio/Vascular: Yes: AFIB, CAD, CHF, HTN, Hyperlipdemia, Other (PVD, CAD, Coronary Bypass, CAD, Stent lower left leg) Gastrointestinal: Yes: GERD Hepatobiliary: Yes: Other (dilated CBD ? etiology) Renal/: Yes: BPH (had laser TURB following the RT), Cancer (prostate cancer treated with RT seeds and ext. beam), Renal Calculi, Other (urethral stricture dilated in the past and culminating in urosepsis) Psych: Yes: Anxiety Musculoskeletal: Yes: Osteoarthritis (Chronic Lower back pain) Rheumatology: Yes: Gout - Past Surgical History Past Surgical History: Yes: CABG, Stent (stents, both cardiac and LLE) Additional Surgical History: Whipple's - Alcohol/Substance Use Hx Alcohol Use: No History of Substance Use: reports: None - Smoking History Smoking history: Unknown if ever smoked Have you smoked in the past 12 months: No Aproximately how many cigarettes per day: 0 If you are a former smoker, when did you quit?: 2002 - Social History Usual Living Arrangement: With Spouse ADL: Independent Occupation: Retired [employer] History of Recent Travel: No Home Medications - Allergies Allergies/Adverse Reactions: Allergies Allergy/AdvReac Type Severity Reaction Status Date / Time strawberry Allergy Severe Swelling Verified 06/17/19 13:41 pepper (genus Capsicum) Allergy Unknown Verified 06/17/19 13:41 black pepper Allergy Verified 06/17/19 13:41 iohexol [From Omnipaque] Allergy Rash Verified 06/17/19 13:41 Iodinated Contrast Media AdvReac Rash Verified 06/17/19 13:41 red pepper Allergy Uncoded 06/17/19 13:41 - Home Medications Home Medications: Ambulatory Orders Folic Acid 1 mg PO DAILY 11/04/16 Tamsulosin HCl [Flomax] 0.4 mg PO HS 11/07/17 Allopurinol [Zyloprim -] 100 mg PO DAILY 09/04/18 Lisinopril [Zestril] 5 mg PO DAILY 09/04/18 Tramadol HCl 50 mg PO ASDIR PRN 09/04/18 Isosorbide Mononitrate [Isosorbide Mononitrate ER] 60 mg PO HS 10/12/18 Apixaban [Eliquis] 5 mg PO BID 01/11/19 Atorvastatin Calcium 40 mg PO HS 01/11/19 Ranolazine [Ranexa] 500 mg PO BID 01/11/19 Ondansetron [Zofran *Odt*] 8 mg SL TID PRN 05/29/19 Metoprolol Tartrate [Lopressor -] 12.5 mg PO BID tablet 06/06/19 Multivit-Minerals [Certavite-Antioxidant Liquid] 15 ml PO DAILY cup 06/06/19 Pantoprazole Sodium [Protonix -] 40 mg PO DAILY 06/17/19 Family Medical History Family History: Denies Review of Systems - Review of Systems Constitutional: reports: No Symptoms Eyes: reports: No Symptoms HENT: reports: No Symptoms Neck: reports: No Symptoms Cardiovascular: reports: No Symptoms Respiratory: reports: No Symptoms Gastrointestinal: reports: Diarrhea, Vomiting Genitourinary: reports: No Symptoms Musculoskeletal: reports: No Symptoms Integumentary: reports: No Symptoms Neurological: reports: No Symptoms Endocrine: reports: No Symptoms Hematology/Lymphatic: reports: No Symptoms Psychiatric: reports: No Symptoms Physical Exam Vital Signs: Vital Signs Temperature 97.8 F 06/17/19 13:47 Pulse Rate 67 06/18/19 07:01 Respiratory Rate 13 06/18/19 07:01 Blood Pressure 110/67 06/18/19 07:01 O2 Sat by Pulse Oximetry (%) 98 06/18/19 07:01 Constitutional: Yes: Calm Eyes: Yes: Conjunctiva Clear HENT: Yes: Atraumatic Neck: Yes: Supple Cardiovascular: Yes: S1, S2 Respiratory: Yes: CTA Bilaterally Gastrointestinal: Yes: Normal Bowel Sounds, Soft Renal/: Yes: WNL Edema: No Neurological: Yes: Oriented Psychiatric: Yes: Oriented Labs: CBC, BMP 06/18/19 05:45 06/18/19 05:45 Laboratory Tests 06/17/19 06/17/19 06/17/19 15:19 15:19 20:00 Creatinine 1.5 H Creatine Kinase 29 Urine Protein Negative Urine Blood Negative 06/18/19 05:45 Creatinine 1.2 Creatine Kinase Urine Protein Urine Blood Imaging - Results Chest X-ray: Report Reviewed Problem List - Problems (1) KWAME (acute kidney injury) Code(s): N17.9 - ACUTE KIDNEY FAILURE, UNSPECIFIED (2) 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 Code(s): IRL6916 - Assessment/Plan Current Medications Generic Name Dose Route Start Last Admin Trade Name Freq PRN Reason Stop Dose Admin Allopurinol 100 mg 06/18/19 10:00 Zyloprim - PO DAILY JORJE Apixaban 5 mg 06/17/19 22:00 06/17/19 23:03 Eliquis - PO 5 mg BID JORJE Administration Atorvastatin Calcium 40 mg 06/17/19 22:00 06/17/19 23:03 Lipitor - PO 40 mg HS JORJE Administration Chlorhexidine Gluconate 1 applic 06/17/19 22:00 Hibiclens For Decolonization - TP HS JORJE Folic Acid 1 mg 06/18/19 10:00 Folic Acid - PO DAILY JORJE Glucagon 5 mg 06/17/19 20:07 Glucagon - IVPUSH Q4H PRN MAP<65mm Hg OR SBP <90 Sodium Chloride 1,000 mls @ 50 mls/hr 06/17/19 17:45 06/17/19 19:35 Normal Saline - IV 06/18/19 17:47 50 mls/hr ASDIR JORJE Administration Sodium Chloride 1,000 mls @ 75 mls/hr 06/18/19 05:45 06/18/19 06:33 Normal Saline - IV 75 mls/hr ASDIR JORJE Administration Isosorbide Mononitrate 60 mg 06/18/19 22:00 Imdur - PO HS JORJE Mupirocin 1 applic 06/17/19 22:00 Bactroban Ointment (For Decolonization) - NS 06/22/19 21:59 BID JORJE Ondansetron HCl 4 mg 06/17/19 18:03 Zofran Injection IVPUSH Q4H PRN NAUSEA AND/OR VOMITING Pantoprazole Sodium 40 mg 02/28/20 10:00 Protonix - PO DAILY JORJE Ranolazine 500 mg 06/17/19 22:00 06/17/19 23:03 Ranexa - PO 500 mg BID [facility] Administration Tamsulosin HCl 0.4 mg 06/18/19 08:30 Flomax - PO DAILY@0830 [facility] Impression 1. KWAME 2. vomiting and diarrhea 3. CAD 4. chf 5. a-fib 6. prostate cancer 7. bradycardia Plan - renal function is stabilizing - repeat labs in am - monitor pulse - likely kwame from pre-renal disease - avoid nsaids - caution with fluid as he has chf, change to 1/2 and decrease rate
[2019-06-18] MEDS ORDERED: TAMSULOSIN HCL 0.4 MG CAP ONE (07:57)
[2019-06-18] MEDS: TAMSULOSIN HCL 0.4 MG CAP PO SCH (09:02)
[2019-06-18] MEDS: PANTOPRAZOLE 40 MG TABLET PO SCH (10:45)
[2019-06-18] MEDS: RANOLAZINE E.R. 500 MG TABLET (FP) PO SCH ×2 (10:45→22:34)
[2019-06-18] MEDS: ALLOPURINOL 100 MG TABLET (FP) PO SCH (10:45)
[2019-06-18] MEDS: APIXABAN 5 MG TABLET PO SCH ×2 (10:45→22:34)
[2019-06-18] MEDS: FOLIC ACID 1 MG TABLET (FP) PO SCH (10:45)
[2019-06-18 11:27] LABS: BASO % 1.4 % (0-2.0); EOS % 1.2 % (0-4.5); HEMATOCRIT 33.8 % (35.4-49); HEMOGLOBIN 11.2 GM/dL (11.7-16.9); LYMPH % 24.1 % (8-40); MCHC 33.3 g/dl (32.0-35.9); MEAN CELL VOLUME 93.1 fl (80-96); MEAN PLT VOLUME 8.3 fl (7.5-11.1); MONO % 24.2 % (3.8-10.2); NEUT % 49.1 % (42.8-82.8); PLATELET COUNT 352 K/MM3 (134-434); RBC 3.62 M/mm3 (4.00-5.60); RDW 19.3 % (11.9-15.9); WHITE BLOOD COUNT 5.5 K/mm3 (4.0-10.0)
--- NOTE | 2019-06-18 11:45 | PN ---
Progress Note, Physician History of Present Illness: Mr. Waddell is a 79 yr old man (b. [birth year]) with past medical history of coronary artery disease, s/p CABG and coronary stents (latest coronary angiogram, 10/2018 at [facility]: no PCI required), paroxysmal A. fib (on metoprolol and Eliquis), prostate CA, pancreatic (ampulla) CA s/p Whipple's procedure, anemia, hypertension, hyperlipidemia, GERD, hx urinary retention/UTI-->prolonged hospitalization;gout, overweight, relatively sedentary, admitted earlier this month with nausea, vomiting, diarrhea, and chest pain in the setting of recent IV chemotherapy, and now presents to ER with similar sympthms that began again yesterday. Pt was noted to be bradycardic; he has been on metoprolol 12.5 mg bid , was found to be markedly bradycardic (EKG notes sinus bradycardia, 1st degree AVB, HR 37 bpm), and was given IV atropine, then IV glucagon. HR in ER now 45- 50 bpm; BP 110-12- mmHg systolic.Pt is A&Ox3; no further N/V/D; he just ate a sandwich. Pt has had similar previous episodes of N&V and diarrhea, and says chemotherapy was postponed after the last event. 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 - Current Medication List Current Medications: Active Medications Allopurinol (Zyloprim -) 100 mg PO DAILY [facility] Last Admin: 06/18/19 10:45 Dose: 100 mg Apixaban (Eliquis -) 5 mg PO BID [facility] Last Admin: 06/18/19 10:45 Dose: 5 mg Atorvastatin Calcium (Lipitor -) 40 mg PO HS [facility] Last Admin: 06/17/19 23:03 Dose: 40 mg Chlorhexidine Gluconate (Hibiclens For Decolonization -) 1 applic TP HS [facility] Folic Acid (Folic Acid -) 1 mg PO DAILY [facility] Last Admin: 06/18/19 10:45 Dose: 1 mg Glucagon (Glucagon -) 5 mg IVPUSH Q4H PRN PRN Reason: MAP<65mm Hg OR SBP <90 Sodium Chloride (Normal Saline -) 1,000 mls @ 50 mls/hr IV ASDIR [facility] Stop: 06/18/19 17:47 Last Admin: 06/17/19 19:35 Dose: 50 mls/hr Sodium Chloride (Normal Saline -) 1,000 mls @ 75 mls/hr IV ASDIR [facility] Last Admin: 06/18/19 06:33 Dose: 75 mls/hr Isosorbide Mononitrate (Imdur -) 60 mg PO [facility] Mupirocin (Bactroban Ointment (For Decolonization) -) 1 applic NS BID [facility] Stop: 06/22/19 21:59 Ondansetron HCl (Zofran Injection) 4 mg IVPUSH Q4H PRN PRN Reason: NAUSEA AND/OR VOMITING Pantoprazole Sodium (Protonix -) 40 mg PO DAILY [facility] Last Admin: 06/18/19 10:45 Dose: 40 mg Ranolazine (Ranexa -) 500 mg PO BID [facility] Last Admin: 06/18/19 10:45 Dose: 500 mg Tamsulosin HCl (Flomax -) 0.4 mg PO DAILY@0830 [facility] Last Admin: 06/18/19 09:02 Dose: 0.4 mg - Objective Vital Signs: Vital Signs Temperature 97.8 F 06/17/19 13:47 Pulse Rate 65 06/18/19 10:00 Respiratory Rate 23 H 06/18/19 10:00 Blood Pressure 131/68 06/18/19 10:00 O2 Sat by Pulse Oximetry (%) 97 06/18/19 10:00 Eyes: Yes: WNL, Conjunctiva Clear, EOM Intact HENT: Yes: WNL, Atraumatic, Normocephalic Neck: Yes: WNL, Supple, Trachea Midline Cardiovascular: Yes: WNL, Regular Rate and Rhythm Respiratory: Yes: WNL, Regular, CTA Bilaterally Gastrointestinal: Yes: WNL, Normal Bowel Sounds Genitourinary: Yes: WNL Musculoskeletal: Yes: WNL Extremities: Yes: WNL Edema: No Integumentary: Yes: WNL Neurological: Yes: WNL, Alert, Oriented ...Motor Strength: WNL Psychiatric: Yes: WNL Labs: CBC, BMP 06/18/19 11:00 02/28/20 05:45 INR, PTT INR 1.75 (0.83-1.09) H 06/17/19 15:19 Assessment/Plan - Problems (1) KWAME (acute kidney injury) Assessment/Plan: BUN/Cr elevated since last admission 2 weeks ago. Recommend gentle hydration (hx systolic LV dysfunction). F/u BUN/Cr, electrolytes, daily weight, Is and Os. Code(s): N17.9 - ACUTE KIDNEY FAILURE, UNSPECIFIED (2) ASHD (arteriosclerotic heart disease) Code(s): I25.10 - ATHSCL HEART DISEASE OF [place] CORONARY ARTERY W/O ANG PCTRS (3) Ampulla of Vater mass Assessment/Plan: s/p Whipple's procedure 02/2019. Code(s): K83.8 - OTHER SPECIFIED DISEASES OF BILIARY TRACT (4) Anemia Assessment/Plan: Hb WNL, but dehyrated from N/V/Diarrhea; f/u Hb as fluids are restored. Code(s): D64.9 - ANEMIA, UNSPECIFIED (5) Anxiety Code(s): F41.9 - ANXIETY DISORDER, UNSPECIFIED (6) Atypical chest pain Assessment/Plan: TNI 0.02; f/u serially. EKG: marked sinus bradycardia; nonspecific STT changes which are not significantly changed from EKG admission earlier this month. On Imdur. Beta blockers held presently. Bradycardia resolved. Hx CABG, coronary stents. Prior episodes of chest pain led to coronary angiograms, the latest 10/2018 (no PCI required). Code(s): R07.89 - OTHER CHEST PAIN (7) Hyperlipidemia Assessment/Plan: On atorvastatin LDL 43 mg/dL earlier this month; CK 29. Code(s): E78.5 - HYPERLIPIDEMIA, UNSPECIFIED (8) Nausea and vomiting Code(s): R11.2 - NAUSEA WITH VOMITING, UNSPECIFIED Qualifiers: Vomiting type: unspecified Vomiting Intractability: non-intractable Qualified Code(s): R11.2 - Nausea with vomiting, unspecified (9) Paroxysmal atrial fibrillation Code(s): I48.0 - PAROXYSMAL ATRIAL FIBRILLATION (10) Sinus bradycardia Assessment/Plan: EKG: marked sinus bradycardia, 1st degree AVB; nonspecific STT changes ( compared to early May EKG, ANAND increased, HR reduced 26 bpm; pt had been started on that admission on metoprolol 12.5 mg bid for PAF, systolic LV dysfunction, and HTN). In ER, HR noted in high 30s bpm; reportedly given atropine with no effect; IV glucagon resulted in HR increase. Presently A&Ox3; no chest pain, abdominal pain, dizziness, dyspnea, or palpitations. Plan: Beta blockers held; glucagon available prn. Follow with telemetry monitoring. Gentle hydration (N, V, and diarrhea; elevated BUN/Cr). Code(s): R00.1 - BRADYCARDIA, UNSPECIFIED (11) Pancreatic cancer Assessment/Plan: s/p Whipple's procedure 02/2019. Chemotherapy stopped earlier this month, per pt, after repeated bouts of N, V, and diarrhea. F/u with oncologist. Code(s): C25.9 - MALIGNANT NEOPLASM OF PANCREAS, UNSPECIFIED
--- NOTE | 2019-06-18 12:01 | PN ---
Progress Note (short form) - Note Progress Note: Patient seen and examined in the ER. Awake and alert. HR improved. No dizziness. Denies CP or SOB. Intake & Output 06/15/19 06/16/19 06/17/19 06/18/19 23:59 23:59 23:59 23:59 Weight 162 lb Last Vital Signs Temp Pulse Resp BP Pulse Ox 97.8 F 65 23 H 131/68 97 06/17/19 13:47 06/18/19 10:00 06/18/19 10:00 06/18/19 10:00 06/18/19 10:00 Active Medications Allopurinol (Zyloprim -) 100 mg PO DAILY [facility] Last Admin: 06/18/19 10:45 Dose: 100 mg Apixaban (Eliquis -) 5 mg PO BID [facility] Last Admin: 06/18/19 10:45 Dose: 5 mg Atorvastatin Calcium (Lipitor -) 40 mg PO [facility] Last Admin: 06/17/19 23:03 Dose: 40 mg Chlorhexidine Gluconate (Hibiclens For Decolonization -) 1 applic TP [facility] Folic Acid (Folic Acid -) 1 mg PO DAILY [facility] Last Admin: 06/18/19 10:45 Dose: 1 mg Glucagon (Glucagon -) 5 mg IVPUSH Q4H PRN PRN Reason: MAP<65mm Hg OR SBP <90 Sodium Chloride (Normal Saline -) 1,000 mls @ 50 mls/hr IV ASDIR [facility] Stop: 06/18/19 17:47 Last Admin: 06/17/19 19:35 Dose: 50 mls/hr Sodium Chloride (Normal Saline -) 1,000 mls @ 75 mls/hr IV ASDIR [facility] Last Admin: 06/18/19 06:33 Dose: 75 mls/hr Isosorbide Mononitrate (Imdur -) 60 mg PO [facility] Mupirocin (Bactroban Ointment (For Decolonization) -) 1 applic NS BID [facility] Stop: 06/22/19 21:59 Ondansetron HCl (Zofran Injection) 4 mg IVPUSH Q4H PRN PRN Reason: NAUSEA AND/OR VOMITING Pantoprazole Sodium (Protonix -) 40 mg PO DAILY [facility] Last Admin: 06/18/19 10:45 Dose: 40 mg Ranolazine (Ranexa -) 500 mg PO BID [facility] Last Admin: 06/18/19 10:45 Dose: 500 mg Tamsulosin HCl (Flomax -) 0.4 mg PO DAILY@0830 [facility] Last Admin: 06/18/19 09:02 Dose: 0.4 mg GENERAL: Awake, alert, and fully oriented, in no acute distress. Thin and cachectic HEAD: Normal with no signs of trauma. EYES: Pupils equal, sclera anicteric. EARS, NOSE, THROAT: Ears normal, nares patent, oropharynx clear without exudates. Moist mucous membranes. NECK: Normal range of motion, supple without lymphadenopathy, JVD, or masses. LUNGS: Breath sounds equal, clear to auscultation bilaterally. No wheezes, and no crackles. No accessory muscle use. HEART: Bradycardic, normal S1 and S2 without murmur, rub or gallop. ABDOMEN: Soft, nontender, not distended, normoactive bowel sounds, no guarding, no rebound, no masses. No hepatomegaly or splenomegaly. MUSCULOSKELETAL: Normal range of motion at all joints. No bony deformities or tenderness. No CVA tenderness. UPPER EXTREMITIES: 2+ pulses, warm, well-perfused. No cyanosis. No clubbing. Cap refill <2 seconds. No peripheral edema. LOWER EXTREMITIES: 2+ pulses, warm, well-perfused. No calf tenderness. No peripheral edema. NEUROLOGICAL: Non-focal. PSYCHIATRIC: Cooperative. Good eye contact. Appropriate mood and affect. SKIN: Warm, dry, normal turgor, no rashes or lesions noted. Laboratory Results - last 24 hr 06/17/19 06/17/19 06/17/19 15:19 15:19 15:19 WBC 6.1 Corrected WBC (auto) RBC 3.98 L Hgb 12.5 Hct 37.0 D MCV 93.1 MCH 31.4 MCHC 33.8 RDW 19.7 H Plt Count 459 H D MPV 8.8 Absolute Neuts (auto) 3.1 Absolute Lymphs (auto) Absolute Monos (auto) Absolute Eos (auto) Absolute Basos (auto) Add Manual Diff Neutrophils % 50.0 D Neutrophils % (Manual) 46.4 D Band Neutrophils % 0.0 Lymphocytes % 22.6 Lymphocytes % (Manual) 13.4 Monocytes % 25.0 H D Monocytes % (Manual) 24 H D Eosinophils % 0.9 Eosinophils % (Manual) 1.0 D Basophils % 1.5 Basophils % (Manual) 2.1 H D Myelocytes % (Man) 0 Promyelocytes % (Man) 0 Blast Cells % (Manual) 0 Nucleated RBC % 0 Metamyelocytes 0 Platelet Estimate Platelet Comment Normal RBC Morphology PT with INR INR PTT (Actin FS) Sodium 137 Potassium 4.9 Chloride 104 Carbon Dioxide 27 Anion Gap 6 L BUN 26.7 H Creatinine 1.5 H Est GFR (CKD-EPI)AfAm 50.59 Est GFR (CKD-EPI)NonAf 43.65 Random Glucose 133 H Serum Osmolality Calcium 9.2 Phosphorus 2.8 Magnesium 2.5 H Total Bilirubin 0.6 AST 38 H ALT 39 Alkaline Phosphatase 430 H Creatine Kinase 29 Troponin I < 0.02 Total Protein 6.3 L Albumin 3.3 L TSH Urine Color Urine Appearance Urine pH Ur Specific [place] Urine Protein Urine Glucose (UA) Urine Ketones Urine Blood Urine Nitrite Urine Bilirubin Urine Urobilinogen Ur Leukocyte Esterase Urine Osmolality U Random Total Protein Ur Random Sodium Blood Type Antibody Screen 06/17/19 06/17/19 06/17/19 15:19 15:53 19:57 WBC Corrected WBC (auto) RBC Hgb Hct MCV MCH MCHC RDW Plt Count MPV Absolute Neuts (auto) Absolute Lymphs (auto) Absolute Monos (auto) Absolute Eos (auto) Absolute Basos (auto) Add Manual Diff Neutrophils % Neutrophils % (Manual) Band Neutrophils % Lymphocytes % Lymphocytes % (Manual) Monocytes % Monocytes % (Manual) Eosinophils % Eosinophils % (Manual) Basophils % Basophils % (Manual) Myelocytes % (Man) Promyelocytes % (Man) Blast Cells % (Manual) Nucleated RBC % Metamyelocytes Platelet Estimate Platelet Comment Normal RBC Morphology PT with INR 20.80 H INR 1.75 H PTT (Actin FS) 44.2 H Sodium Potassium Chloride Carbon Dioxide Anion Gap BUN Creatinine Est GFR (CKD-EPI)AfAm Est GFR (CKD-EPI)NonAf Random Glucose Serum Osmolality 289 Calcium Phosphorus Magnesium Total Bilirubin AST ALT Alkaline Phosphatase Creatine Kinase Troponin I < 0.02 Total Protein Albumin TSH Urine Color Urine Appearance Urine pH Ur Specific [place] Urine Protein Urine Glucose (UA) Urine Ketones Urine Blood Urine Nitrite Urine Bilirubin Urine Urobilinogen Ur Leukocyte Esterase Urine Osmolality U Random Total Protein Ur Random Sodium Blood Type O NEGATIVE Antibody Screen Negative 06/17/19 06/17/19 06/17/19 20:00 20:00 20:00 WBC Corrected WBC (auto) RBC Hgb Hct MCV MCH MCHC RDW Plt Count MPV Absolute Neuts (auto) Absolute Lymphs (auto) Absolute Monos (auto) Absolute Eos (auto) Absolute Basos (auto) Add Manual Diff Neutrophils % Neutrophils % (Manual) Band Neutrophils % Lymphocytes % Lymphocytes % (Manual) Monocytes % Monocytes % (Manual) Eosinophils % Eosinophils % (Manual) Basophils % Basophils % (Manual) Myelocytes % (Man) Promyelocytes % (Man) Blast Cells % (Manual) Nucleated RBC % Metamyelocytes Platelet Estimate Platelet Comment Normal RBC Morphology PT with INR INR PTT (Actin FS) Sodium Potassium Chloride Carbon Dioxide Anion Gap BUN Creatinine Est GFR (CKD-EPI)AfAm Est GFR (CKD-EPI)NonAf Random Glucose Serum Osmolality Calcium Phosphorus Magnesium Total Bilirubin AST ALT Alkaline Phosphatase Creatine Kinase Troponin I Total Protein Albumin TSH Urine Color Yellow Urine Appearance Clear Urine pH 7.0 D Ur Specific [place] 1.020 Urine Protein Negative Urine Glucose (UA) Negative Urine Ketones Negative Urine Blood Negative Urine Nitrite Negative Urine Bilirubin Negative Urine Urobilinogen 0.2 Ur Leukocyte Esterase Negative Urine Osmolality 579 U Random Total Protein Ur Random Sodium 88 Blood Type Antibody Screen 06/17/19 06/18/19 06/18/19 20:00 05:45 05:45 WBC Cancelled Corrected WBC (auto) Cancelled RBC Cancelled Hgb Cancelled Hct Cancelled MCV Cancelled MCH Cancelled MCHC Cancelled RDW Cancelled Plt Count Cancelled MPV Cancelled Absolute Neuts (auto) Cancelled Absolute Lymphs (auto) Cancelled Absolute Monos (auto) Cancelled Absolute Eos (auto) Cancelled Absolute Basos (auto) Cancelled Add Manual Diff Cancelled Neutrophils % Cancelled Neutrophils % (Manual) Band Neutrophils % Lymphocytes % Cancelled Lymphocytes % (Manual) Monocytes % Cancelled Monocytes % (Manual) Eosinophils % Cancelled Eosinophils % (Manual) Basophils % Cancelled Basophils % (Manual) Myelocytes % (Man) Promyelocytes % (Man) Blast Cells % (Manual) Nucleated RBC % Cancelled Metamyelocytes Platelet Estimate Cancelled Platelet Comment Cancelled Normal RBC Morphology Cancelled PT with INR INR PTT (Actin FS) Sodium 138 Potassium 4.4 Chloride 107 Carbon Dioxide 22 Anion Gap 9 BUN 28.2 H Creatinine 1.2 Est GFR (CKD-EPI)AfAm 66.26 Est GFR (CKD-EPI)NonAf 57.17 Random Glucose 74 Serum Osmolality Calcium 9.6 Phosphorus 3.7 Magnesium 2.2 Total Bilirubin 0.7 AST 50 H ALT 41 Alkaline Phosphatase 400 H Creatine Kinase Troponin I Total Protein 5.7 L Albumin 3.1 L TSH 1.48 D Urine Color Urine Appearance Urine pH Ur Specific [place] Urine Protein Urine Glucose (UA) Urine Ketones Urine Blood Urine Nitrite Urine Bilirubin Urine Urobilinogen Ur Leukocyte Esterase Urine Osmolality U Random Total Protein 19.6 H Ur Random Sodium Blood Type Antibody Screen 06/18/19 11:00 WBC 5.5 Corrected WBC (auto) RBC 3.62 L Hgb 11.2 L Hct 33.8 L MCV 93.1 MCH 31.0 MCHC 33.3 RDW 19.3 H Plt Count 352 D MPV 8.3 Absolute Neuts (auto) 2.7 Absolute Lymphs (auto) Absolute Monos (auto) Absolute Eos (auto) Absolute Basos (auto) Add Manual Diff Neutrophils % 49.1 Neutrophils % (Manual) Band Neutrophils % Lymphocytes % 24.1 Lymphocytes % (Manual) Monocytes % 24.2 H Monocytes % (Manual) Eosinophils % 1.2 Eosinophils % (Manual) Basophils % 1.4 Basophils % (Manual) Myelocytes % (Man) Promyelocytes % (Man) Blast Cells % (Manual) Nucleated RBC % 0 Metamyelocytes Platelet Estimate Platelet Comment Normal RBC Morphology PT with INR INR PTT (Actin FS) Sodium Potassium Chloride Carbon Dioxide Anion Gap BUN Creatinine Est GFR (CKD-EPI)AfAm Est GFR (CKD-EPI)NonAf Random Glucose Serum Osmolality Calcium Phosphorus Magnesium Total Bilirubin AST ALT Alkaline Phosphatase Creatine Kinase Troponin I Total Protein Albumin TSH Urine Color Urine Appearance Urine pH Ur Specific [place] Urine Protein Urine Glucose (UA) Urine Ketones Urine Blood Urine Nitrite Urine Bilirubin Urine Urobilinogen Ur Leukocyte Esterase Urine Osmolality U Random Total Protein Ur Random Sodium Blood Type Antibody Screen ASSESSMENT/PLAN: Symptomatic Bradycardia likely due to Beta Leydi: now resolved S/P Whipple (2018) CAD S/P CABG S/P Cardiac stents x 2 S/P Lower extremity stents x 2 Paroxysmal AFib (on eliquis) Prostate CA: S/P radiation seeds and chemotherapy Hold Beta Leydi Supplemental O2 as needed Cardiology evaluation noted Noted anti-hypertensive medications held Cardiac Telemetry monitoring: at this time no indication for ICU. Please call for further input or change in status. Dr Tucker
--- NOTE | 2019-06-18 12:02 | PN ---
Progress Note (short form) - Note Progress Note: ICU team Re-evaluated the patient this am. Patient A&O x3 with heart rate in the 60's and stable BP. Patient did not require any further glucagon or atropine overnight. No events on tele. No further episodes of nausea or vomiting. Patient states that he is bradycardic at baseline. He follows as an outpatient with Dr. Mata. Given stable BP, improved heart rate and no events overnight, patient is stable to be monitored on telemetry.
[2019-06-18 12:36] LABS: ANISOCYTOSIS 1+; MACROCYTOSIS 0; PLATELET ESTIMATE NORMAL
--- NOTE | 2019-06-18 12:45 | EKG ---
Test Reason : Blood Pressure : / mmHG Vent. Rate : 039 BPM Atrial Rate : 039 BPM P-R Int : 280 ms QRS Dur : 122 ms QT Int : 478 ms P-R-T Axes : 089 047 081 degrees QTc Int : 384 ms POOR DATA QUALITY, INTERPRETATION MAY BE ADVERSELY AFFECTED MARKED SINUS BRADYCARDIA WITH SINUS ARRHYTHMIA WITH 1ST DEGREE A-V BLOCK LEFT BUNDLE BRANCH BLOCK ABNORMAL ECG WHEN COMPARED WITH ECG OF 17-JUN-2019 14:58, NO SIGNIFICANT CHANGE WAS FOUND Confirmed by CARLOS LIN MD ([id number]) on 06/18/2019 12:45:26 PM Referred By: Confirmed By:CARLOS LIN MD
[2019-06-18] MEDS ORDERED: SODIUM CHLORIDE 0.45% 1,000 ML IV SCH (13:30)
[2019-06-18] MEDS: ATORVASTATIN CA 40 MG TABLET (FP) PO SCH (22:40)
[2019-06-18] MEDS: ISOSORBIDE MONONITRATE 60 MG TAB.SR.24H (FP) PO SCH (22:43)
[2019-06-18] MEDS: MUPIROCIN 2% TOPICAL OINTMENT FOR DECOLONIZATION NS SCH (22:43)
[2019-06-18] MEDS: CHLORHEXIDINE GLUCONATE 4% CLEANSER FOR DECOLONIZATION TP SCH (22:55)
[2019-06-19] MEDS: SODIUM CHLORIDE 1,000 ML IV SCH (05:48)
[2019-06-19] MEDS: PANTOPRAZOLE 40 MG TABLET PO SCH (09:53)
[2019-06-19] MEDS: ALLOPURINOL 100 MG TABLET (FP) PO SCH (09:53)
[2019-06-19] MEDS: FOLIC ACID 1 MG TABLET (FP) PO SCH (09:53)
[2019-06-19] MEDS: APIXABAN 5 MG TABLET PO SCH ×2 (09:53→22:32)
[2019-06-19] MEDS: TAMSULOSIN HCL 0.4 MG CAP PO SCH (09:54)
[2019-06-19] MEDS: RANOLAZINE E.R. 500 MG TABLET (FP) PO SCH ×2 (09:54→22:32)
[2019-06-19] MEDS: MUPIROCIN 2% TOPICAL OINTMENT FOR DECOLONIZATION NS SCH ×2 (09:54→22:32)
--- NOTE | 2019-06-19 12:25 | PN ---
Progress Note (short form) - Note Progress Note: Renal follow up for KWAME Coverage for Dr. Esparza Seen and examined at the bedside no acute complaints no diarrhea today no sob, cp, fever, chills making urine on IVF Vital Signs Temperature 98.3 F 06/19/19 05:00 Pulse Rate 71 06/19/19 09:00 Respiratory Rate 18 06/19/19 09:00 Blood Pressure 116/60 06/19/19 09:00 O2 Sat by Pulse Oximetry (%) 98 06/19/19 09:00 Intake & Output 06/16/19 06/17/19 06/18/19 06/19/19 23:59 23:59 23:59 23:59 Intake Total 50 343 Balance 50 343 Weight 73.482 kg NAD awake and alert RRR Dec BS soft NT/ND no Le edema CBC, BMP 06/18/19 11:00 06/18/19 05:45 Current Medications Allopurinol (Zyloprim -) [address] [facility] Last Admin: 06/19/19 09:53 Dose: 100 mg Apixaban (Eliquis -) [address] [facility] Last Admin: 06/19/19 09:53 Dose: 5 mg Atorvastatin Calcium (Lipitor -) 40 mg PO [facility] Last Admin: 06/18/19 22:40 Dose: 40 mg Chlorhexidine Gluconate (Hibiclens For Decolonization -) 1 applic TP [facility] Last Admin: 06/18/19 22:55 Dose: Not Given Folic Acid (Folic Acid -) [address] [facility] Last Admin: 06/19/19 09:53 Dose: 1 mg Glucagon (Glucagon -) 5 mg IVPUSH Q4H PRN PRN Reason: MAP<65mm Hg OR SBP <90 Sodium Chloride (Normal Saline -) 1,000 mls @ 75 mls/hr IV ASDIR [facility] Last Admin: 06/19/19 05:48 Dose: 75 mls/hr Sodium Chloride (1/2 Normal Saline) 1,000 mls @ 50 mls/hr IV ASDIR [facility] Stop: 06/19/19 13:26 Last Admin: 06/18/19 19:30 Dose: 50 mls/hr Isosorbide Mononitrate (Imdur -) 60 mg PO [facility] Last Admin: 06/18/19 22:43 Dose: 60 mg Mupirocin (Bactroban Ointment (For Decolonization) -) [address] [facility] Stop: 06/23/19 21:59 Last Admin: 06/19/19 09:54 Dose: 1 applic Ondansetron HCl (Zofran Injection) 4 mg IVPUSH Q4H PRN PRN Reason: NAUSEA AND/OR VOMITING Pantoprazole Sodium (Protonix -) [address] [facility] Last Admin: 06/19/19 09:53 Dose: 40 mg Ranolazine (Ranexa -) [address] [facility] Last Admin: 06/19/19 09:54 Dose: 500 mg Tamsulosin HCl (Flomax -) 0.4 mg PO DAILY@0830 [facility] Last Admin: 06/19/19 09:54 Dose: 0.4 mg Impression 1. KWAME 2. vomiting and diarrhea 3. CAD 4. chf 5. a-fib 6. prostate cancer 7. bradycardia Plan Renal function is improving UA w/o protein or sediment no further diarrhea noted can discontinue IVF given history of systolic HF Trend renal function and electrolytes Donnell Moraes DO
--- NOTE | 2019-06-19 13:18 | PN ---
Progress Note (short form) - Note Progress Note: Feels overall better. No dizziness. Denies CP or SOB. Intake & Output 06/16/19 06/17/19 06/18/19 06/19/19 23:59 23:59 23:59 23:59 Intake Total 50 343 Balance 50 343 Weight 162 lb Last Vital Signs Temp Pulse Resp BP Pulse Ox 98.3 F 71 18 116/60 98 06/19/19 05:00 06/19/19 09:00 06/19/19 09:00 06/19/19 09:00 06/19/19 09:00 Active Medications Allopurinol (Zyloprim -) 100 mg PO DAILY [facility] Last Admin: 06/19/19 09:53 Dose: 100 mg Apixaban (Eliquis -) 5 mg PO BID [facility] Last Admin: 06/19/19 09:53 Dose: 5 mg Atorvastatin Calcium (Lipitor -) 40 mg PO [facility] Last Admin: 06/18/19 22:40 Dose: 40 mg Chlorhexidine Gluconate (Hibiclens For Decolonization -) 1 applic TP [facility] Last Admin: 06/18/19 22:55 Dose: Not Given Folic Acid (Folic Acid -) 1 mg PO DAILY [facility] Last Admin: 06/19/19 09:53 Dose: 1 mg Glucagon (Glucagon -) 5 mg IVPUSH Q4H PRN PRN Reason: MAP<65mm Hg OR SBP <90 Sodium Chloride (Normal Saline -) 1,000 mls @ 75 mls/hr IV ASDIR [facility] Last Admin: 06/19/19 05:48 Dose: 75 mls/hr Sodium Chloride (1/2 Normal Saline) 1,000 mls @ 50 mls/hr IV ASDIR [facility] Stop: 06/19/19 13:26 Last Admin: 06/18/19 19:30 Dose: 50 mls/hr Isosorbide Mononitrate (Imdur -) 60 mg PO [facility] Last Admin: 06/18/19 22:43 Dose: 60 mg Mupirocin (Bactroban Ointment (For Decolonization) -) 1 applic NS BID [facility] Stop: 06/23/19 21:59 Last Admin: 06/19/19 09:54 Dose: 1 applic Ondansetron HCl (Zofran Injection) 4 mg IVPUSH Q4H PRN PRN Reason: NAUSEA AND/OR VOMITING Pantoprazole Sodium (Protonix -) 40 mg PO DAILY [facility] Last Admin: 06/19/19 09:53 Dose: 40 mg Ranolazine (Ranexa -) 500 mg PO BID [facility] Last Admin: 06/19/19 09:54 Dose: 500 mg Tamsulosin HCl (Flomax -) 0.4 mg PO DAILY@0830 [facility] Last Admin: 06/19/19 09:54 Dose: 0.4 mg GENERAL: Awake, alert, and fully oriented, in no acute distress. Thin HEAD: Normal with no signs of trauma. EYES: Pupils equal, sclera anicteric. EARS, NOSE, THROAT: Ears normal, nares patent, oropharynx clear without exudates. Moist mucous membranes. NECK: Normal range of motion, supple without lymphadenopathy, JVD, or masses. LUNGS: Breath sounds equal, clear to auscultation bilaterally. No wheezes, and no crackles. No accessory muscle use. HEART: Bradycardic, normal S1 and S2 without murmur, rub or gallop. ABDOMEN: Soft, nontender, not distended, normoactive bowel sounds, no guarding, no rebound, no masses. No hepatomegaly or splenomegaly. MUSCULOSKELETAL: Normal range of motion at all joints. No bony deformities or tenderness. No CVA tenderness. UPPER EXTREMITIES: 2+ pulses, warm, well-perfused. No cyanosis. No clubbing. Cap refill <2 seconds. No peripheral edema. LOWER EXTREMITIES: 2+ pulses, warm, well-perfused. No calf tenderness. No peripheral edema. NEUROLOGICAL: Non-focal. PSYCHIATRIC: Cooperative. Good eye contact. Appropriate mood and affect. SKIN: Warm, dry, normal turgor, no rashes or lesions noted. Laboratory Results - last 24 hr 06/18/19 13:45 Ur Random Creatinine 122.0 ASSESSMENT/PLAN: Symptomatic Bradycardia likely due to Beta Leydi: now resolved S/P Leanneipple (2018) CAD S/P CABG S/P Cardiac stents x 2 S/P Lower extremity stents x 2 Paroxysmal AFib (on eliquis) Prostate CA: S/P radiation seeds and chemotherapy Beta Leydi held Supplemental O2 as needed Dr Tucker
--- NOTE | 2019-06-19 13:24 | PN ---
Progress Note, Physician History of Present Illness: Coverage Dr. Taylor Pt seen/ Examined chart is reviewed Feels better Denies diarrhea nausea better eating better no distress all f/u noted/ appreciated - Current Medication List Current Medications: Active Medications Allopurinol (Zyloprim -) 100 mg PO DAILY [facility] Last Admin: 06/19/19 09:53 Dose: 100 mg Apixaban (Eliquis -) 5 mg PO BID [facility] Last Admin: 06/19/19 09:53 Dose: 5 mg Atorvastatin Calcium (Lipitor -) 40 mg PO [facility] Last Admin: 06/18/19 22:40 Dose: 40 mg Chlorhexidine Gluconate (Hibiclens For Decolonization -) 1 applic TP [facility] Last Admin: 06/18/19 22:55 Dose: Not Given Folic Acid (Folic Acid -) 1 mg PO DAILY [facility] Last Admin: 06/19/19 09:53 Dose: 1 mg Glucagon (Glucagon -) 5 mg IVPUSH Q4H PRN PRN Reason: MAP<65mm Hg OR SBP <90 Sodium Chloride (Normal Saline -) 1,000 mls @ 75 [facility] Last Admin: 06/19/19 05:48 Dose: 75 mls/hr Sodium Chloride (1/2 Normal Saline) 1,000 mls @ 50 mls/hr IV ASDIR [facility] Stop: 06/19/19 13:26 Last Admin: 06/18/19 19:30 Dose: 50 mls/hr Isosorbide Mononitrate (Imdur -) 60 mg PO [facility] Last Admin: 06/18/19 22:43 Dose: 60 mg Mupirocin (Bactroban Ointment (For Decolonization) -) 1 applic NS BID [facility] Stop: 06/23/19 21:59 Last Admin: 06/19/19 09:54 Dose: 1 applic Ondansetron HCl (Zofran Injection) 4 mg IVPUSH Q4H PRN PRN Reason: NAUSEA AND/OR VOMITING Pantoprazole Sodium (Protonix -) 40 mg PO DAILY [facility] Last Admin: 06/19/19 09:53 Dose: 40 mg Ranolazine (Ranexa -) 500 mg PO BID [facility] Last Admin: 06/19/19 09:54 Dose: 500 mg Tamsulosin HCl (Flomax -) 0.4 mg PO DAILY@0830 [facility] Last Admin: 06/19/19 09:54 Dose: 0.4 mg - Objective Vital Signs: Vital Signs Temperature 98.3 F 06/19/19 05:00 Pulse Rate 71 06/19/19 09:00 Respiratory Rate 18 06/19/19 09:00 Blood Pressure 116/60 06/19/19 09:00 O2 Sat by Pulse Oximetry (%) 98 06/19/19 09:00 Constitutional: Yes: No Distress, Calm Eyes: Yes: Conjunctiva Clear Neck: Yes: Supple Respiratory: Yes: CTA Bilaterally Gastrointestinal: Yes: Soft, Abdomen, Obese Edema: No Neurological: Yes: Alert Labs: CBC, BMP 06/18/19 11:00 06/18/19 05:45 INR, PTT INR 1.75 (0.83-1.09) H 06/17/19 15:19 - ....Imaging Chest X-ray: Report Reviewed Problem List - Problems (1) KWAME (acute kidney injury) Code(s): N17.9 - ACUTE KIDNEY FAILURE, UNSPECIFIED (2) Pancreatic cancer Code(s): C25.9 - MALIGNANT NEOPLASM OF PANCREAS, UNSPECIFIED (3) Sinus bradycardia Code(s): R00.1 - BRADYCARDIA, UNSPECIFIED (4) ASHD (arteriosclerotic heart disease) Code(s): I25.10 - ATHSCL HEART DISEASE OF [place] CORONARY ARTERY W/O ANG PCTRS (5) Diarrhea Code(s): R19.7 - DIARRHEA, UNSPECIFIED Qualifiers: Diarrhea type: unspecified type Qualified Code(s): R19.7 - Diarrhea, unspecified Assessment/Plan Symptomatic Bradycardia- Better Off BB CAD -S/P CABG Paroxysmal AFib (on eliquis) Prostate CA: S/P radiation seeds and chemotherapy N/V - Better Diarrhea- Resolved Overall better Monitor lytes D/c fluids d/w RN also
--- NOTE | 2019-06-19 15:13 | PN ---
Progress Note, Physician Chief Complaint: Cardiology for Dr. Andrade History of Present Illness: Raúl chest pain, dyspnea, near or true syncope. Nausea, vomiting, diarrhea resolved HR recovered off metoprolol. - Current Medication List Current Medications: Active Medications Allopurinol (Zyloprim -) 100 mg PO DAILY [facility] Last Admin: 06/19/19 09:53 Dose: 100 mg Apixaban (Eliquis -) 5 mg PO BID [facility] Last Admin: 06/19/19 09:53 Dose: 5 mg Atorvastatin Calcium (Lipitor -) 40 mg PO [facility] Last Admin: 06/18/19 22:40 Dose: 40 mg Chlorhexidine Gluconate (Hibiclens For Decolonization -) 1 applic TP [facility] Last Admin: 06/18/19 22:55 Dose: Not Given Folic Acid (Folic Acid -) 1 mg PO DAILY [facility] Last Admin: 06/19/19 09:53 Dose: 1 mg Glucagon (Glucagon -) 5 mg IVPUSH Q4H PRN PRN Reason: MAP<65mm Hg OR SBP <90 Isosorbide Mononitrate (Imdur -) 60 mg PO [facility] Last Admin: 06/18/19 22:43 Dose: 60 mg Mupirocin (Bactroban Ointment (For Decolonization) -) 1 applic NS BID [facility] Stop: 06/23/19 21:59 Last Admin: 06/19/19 09:54 Dose: 1 applic Ondansetron HCl (Zofran Injection) 4 mg IVPUSH Q4H PRN PRN Reason: NAUSEA AND/OR VOMITING Pantoprazole Sodium (Protonix -) 40 mg PO DAILY [facility] Last Admin: 06/19/19 09:53 Dose: 40 mg Ranolazine (Ranexa -) 500 mg PO BID [facility] Last Admin: 06/19/19 09:54 Dose: 500 mg Tamsulosin HCl (Flomax -) 0.4 mg PO DAILY@0830 [facility] Last Admin: 06/19/19 09:54 Dose: 0.4 mg - Objective Vital Signs: Vital Signs Temperature 98.3 F 06/19/19 05:00 Pulse Rate 71 06/19/19 09:00 Respiratory Rate 18 06/19/19 09:00 Blood Pressure 116/60 06/19/19 09:00 O2 Sat by Pulse Oximetry (%) 98 06/19/19 09:00 Constitutional: Yes: No Distress, Calm Neck: Yes: Supple Cardiovascular: Yes: Regular Rate and Rhythm Respiratory: Yes: Regular, CTA Bilaterally Gastrointestinal: Yes: Normal Bowel Sounds, Soft Edema: No Labs: CBC, BMP 06/18/19 11:00 06/18/19 05:45 INR, PTT INR 1.75 (0.83-1.09) H 06/17/19 15:19 - ....Imaging EKG: Report Reviewed (Tele: NSR) Assessment/Plan - Problems (1) KWAME (acute kidney injury) improved Assessment/Plan: BUN/Cr elevated since last admission 2 weeks ago improving Recommend gentle hydration (hx systolic LV dysfunction). F/u BUN/Cr, electrolytes, daily weight, Is and Os. 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 Code(s): K83.8 - OTHER SPECIFIED DISEASES OF BILIARY TRACT (4) Anemia Assessment/Plan: Hb WNL, but dehyrated from N/V/Diarrhea; f/u Hb as fluids are restored. Code(s): D64.9 - ANEMIA, UNSPECIFIED (5) Anxiety Code(s): F41.9 - ANXIETY DISORDER, UNSPECIFIED (6) Atypical chest pain Assessment/Plan: TNI 0.02; f/u serially. EKG: marked sinus bradycardia; nonspecific STT changes which are not significantly changed from EKG admission earlier this month. On Imdur 60 qd and Ranexa 500 bid Beta blockers held presently. Bradycardia resolved. Hx CABG, coronary stents. Prior episodes of chest pain led to coronary angiograms, the latest 10/2018 (no PCI required). Code(s): R07.89 - OTHER CHEST PAIN (7) Hyperlipidemia Assessment/Plan: On atorvastatin 40 qd LDL 43 mg/dL earlier this month; CK 29. Code(s): E78.5 - HYPERLIPIDEMIA, UNSPECIFIED (8) Nausea and vomiting Code(s): R11.2 - NAUSEA WITH VOMITING, UNSPECIFIED Qualifiers: Vomiting type: unspecified Vomiting Intractability: non-intractable Qualified Code(s): R11.2 - Nausea with vomiting, unspecified (9) Paroxysmal atrial fibrillation Code(s): I48.0 - PAROXYSMAL ATRIAL FIBRILLATION On Eliquis 5 bid (10) Sinus bradycardia in context of vasovagal reaction Assessment/Plan: EKG: marked sinus bradycardia, 1st degree AVB; nonspecific STT changes ( compared to early May EKG, ANAND increased, HR reduced 26 bpm; pt had been started on that admission on metoprolol 12.5 mg bid for PAF, systolic LV dysfunction, and HTN). In ER, HR noted in high 30s bpm; reportedly given atropine with no effect; IV glucagon resulted in HR increase. Presently A&Ox3; no chest pain, abdominal pain, dizziness, dyspnea, or palpitations. Plan: Beta blockers held; glucagon available prn. Follow with telemetry monitoring. Gentle hydration (N, V, and diarrhea; elevated BUN/Cr). Code(s): R00.1 - BRADYCARDIA, UNSPECIFIED (11) Pancreatic cancer Assessment/Plan: s/p Whipple's procedure 02/2019. Chemotherapy stopped earlier this month, per pt, after repeated bouts of N, V, and diarrhea. F/u with oncologist. Code(s): C25.9 - MALIGNANT NEOPLASM OF PANCREAS, UNSPECIFIED
[2019-06-19] MEDS: ATORVASTATIN CA 40 MG TABLET (FP) PO SCH (22:31)
[2019-06-19] MEDS: CHLORHEXIDINE GLUCONATE 4% CLEANSER FOR DECOLONIZATION TP SCH (22:33)
[2019-06-19] MEDS: ISOSORBIDE MONONITRATE 60 MG TAB.SR.24H (FP) PO SCH (23:54)
[2019-06-20] MEDS ORDERED: METOCLOPRAMIDE HCL INJECTION 10 MG/2 ML VIAL IVPB ONE (00:48)
[2019-06-20] MEDS ORDERED: ACETAMINOPHEN 1000 MG/100 ML VIAL (NON FORMULARY) IVPB ONE (00:51)
[2019-06-20] MEDS ORDERED: DOCUSATE SODIUM 100 MG CAPSULE (FP) PO ONE (00:54)
[2019-06-20 06:54] LABS: BASO % 1.2 % (0-2.0); HEMATOCRIT 34.6 % (35.4-49); HEMOGLOBIN 11.7 GM/dL (11.7-16.9); LYMPH % 16.5 % (8-40); MCH 31.2 pg (25.7-33.7); MCHC 33.9 g/dl (32.0-35.9); MEAN CELL VOLUME 91.9 fl (80-96); MEAN PLT VOLUME 9.6 fl (7.5-11.1); MONO % 22.8 % (3.8-10.2); NEUT % 58.5 % (42.8-82.8); PLATELET COUNT 208 K/MM3 (134-434); RBC 3.77 M/mm3 (4.00-5.60); RDW 18.9 % (11.9-15.9); WHITE BLOOD COUNT 6.1 K/mm3 (4.0-10.0)
[2019-06-20 07:46] LABS: ALBUMIN 2.7 g/dl (3.4-5.0); BILIRUBIN,TOTAL 0.6 mg/dL (0.2-1); CALCIUM 8.2 mg/dL (8.5-10.1); CREATININE 0.9 mg/dL (0.55-1.3); POTASSIUM 4.3 mmol/L (3.5-5.1); TOT PROT 5.4 g/dl (6.4-8.2)
[2019-06-20] MEDS ORDERED: PT OWN MED DRAWER 7, Y5N ONE ×2 (08:21→21:28)
[2019-06-20] MEDS: FOLIC ACID 1 MG TABLET (FP) PO SCH (09:19)
[2019-06-20] MEDS: APIXABAN 5 MG TABLET PO SCH ×2 (09:19→21:32)
[2019-06-20] MEDS: ALLOPURINOL 100 MG TABLET (FP) PO SCH (09:19)
[2019-06-20] MEDS: TAMSULOSIN HCL 0.4 MG CAP PO SCH (09:19)
[2019-06-20] MEDS: RANOLAZINE E.R. 500 MG TABLET (FP) PO SCH ×2 (09:19→21:32)
[2019-06-20] MEDS: PANTOPRAZOLE 40 MG TABLET PO SCH (09:19)
--- NOTE | 2019-06-20 09:50 | PN ---
Progress Note (short form) - Note Progress Note: Awake and alert. Feels overall better. No dizziness. Denies CP or SOB. Intake & Output 06/17/19 06/18/19 06/19/19 06/20/19 23:59 23:59 23:59 23:59 Intake Total 50 1363 Output Total 1050 200 Balance 50 313 -200 Weight 162 lb Last Vital Signs Temp Pulse Resp BP Pulse Ox 98.6 F 72 16 113/58 L 98 06/20/19 08:00 06/20/19 08:00 06/20/19 08:00 06/20/19 08:00 06/19/19 09:00 Active Medications Allopurinol (Zyloprim -) 100 mg PO DAILY [facility] Last Admin: 06/20/19 09:19 Dose: 100 mg Apixaban (Eliquis -) 5 mg PO BID [facility] Last Admin: 06/20/19 09:19 Dose: 5 mg Atorvastatin Calcium (Lipitor -) 40 mg PO [facility] Last Admin: 06/19/19 22:31 Dose: 40 mg Chlorhexidine Gluconate (Hibiclens For Decolonization -) 1 applic TP [facility] Last Admin: 06/19/19 22:33 Dose: Not Given Folic Acid (Folic Acid -) 1 mg PO DAILY [facility] Last Admin: 06/20/19 09:19 Dose: 1 mg Glucagon (Glucagon -) 5 mg IVPUSH Q4H PRN PRN Reason: MAP<65mm Hg OR SBP <90 Isosorbide Mononitrate (Imdur -) 60 mg PO [facility] Last Admin: 06/19/19 23:54 Dose: 60 mg Mupirocin (Bactroban Ointment (For Decolonization) -) 1 applic NS BID [facility] Stop: 06/23/19 21:59 Last Admin: 06/19/19 22:32 Dose: 1 applic Ondansetron HCl (Zofran Injection) 4 mg IVPUSH Q4H PRN PRN Reason: NAUSEA AND/OR VOMITING Last Admin: 06/19/19 22:36 Dose: 4 mg Pantoprazole Sodium (Protonix -) 40 mg PO DAILY [facility] Last Admin: 06/20/19 09:19 Dose: 40 mg Ranolazine (Ranexa -) 500 mg PO BID [facility] Last Admin: 06/20/19 09:19 Dose: 500 mg Tamsulosin HCl (Flomax -) 0.4 mg PO DAILY@0830 [facility] Last Admin: 06/20/19 09:19 Dose: 0.4 mg GENERAL: Awake, alert, and fully oriented, in no acute distress. Thin HEAD: Normal with no signs of trauma. EYES: Pupils equal, sclera anicteric. EARS, NOSE, THROAT: Ears normal, nares patent, oropharynx clear without exudates. Moist mucous membranes. NECK: Normal range of motion, supple without lymphadenopathy, JVD, or masses. LUNGS: Breath sounds equal, clear to auscultation bilaterally. No wheezes, and no crackles. No accessory muscle use. HEART: Bradycardic, normal S1 and S2 without murmur, rub or gallop. ABDOMEN: Soft, nontender, not distended, normoactive bowel sounds, no guarding, no rebound, no masses. No hepatomegaly or splenomegaly. MUSCULOSKELETAL: Normal range of motion at all joints. No bony deformities or tenderness. No CVA tenderness. UPPER EXTREMITIES: 2+ pulses, warm, well-perfused. No cyanosis. No clubbing. Cap refill <2 seconds. No peripheral edema. LOWER EXTREMITIES: 2+ pulses, warm, well-perfused. No calf tenderness. No peripheral edema. NEUROLOGICAL: Non-focal. PSYCHIATRIC: Cooperative. Good eye contact. Appropriate mood and affect. SKIN: Warm, dry, normal turgor, no rashes or lesions noted. Laboratory Results - last 24 hr 06/20/19 06/20/19 06:05 06:05 WBC 6.1 RBC 3.77 L Hgb 11.7 Hct 34.6 L MCV 91.9 MCH 31.2 MCHC 33.9 RDW 18.9 H Plt Count 208 D MPV 9.6 D Absolute Neuts (auto) 3.6 Neutrophils % 58.5 Lymphocytes % 16.5 D Monocytes % 22.8 H Eosinophils % 1.0 Basophils % 1.2 Nucleated RBC % 0 Sodium 136 Potassium 4.3 Chloride 112 H Carbon Dioxide 21 Anion Gap 3 L BUN 14.0 Creatinine 0.9 Est GFR (CKD-EPI)AfAm 93.82 Est GFR (CKD-EPI)NonAf 80.95 Random Glucose 109 H Calcium 8.2 L Total Bilirubin 0.6 AST 53 H ALT 39 Alkaline Phosphatase 389 H Total Protein 5.4 L Albumin 2.7 L ASSESSMENT/PLAN: Symptomatic Bradycardia likely due to Beta Leydi: now resolved S/P Leanneippinga (2018) CAD S/P CABG S/P Cardiac stents x 2 S/P Lower extremity stents x 2 Paroxysmal AFib (on eliquis) Prostate CA: S/P radiation seeds and chemotherapy Beta Leydi held Supplemental O2 as needed AC Dr Tucker
--- NOTE | 2019-06-20 11:08 | PN ---
Progress Note, Physician Chief Complaint: Cardiology for Dr. Andrade History of Present Illness: Raúl chest pain, dyspnea, near or true syncope. Nausea, vomiting, diarrhea resolved HR recovered off metoprolol. - Current Medication List Current Medications: Active Medications Allopurinol (Zyloprim -) 100 mg PO DAILY [facility] Last Admin: 06/20/19 09:19 Dose: 100 mg Apixaban (Eliquis -) 5 mg PO BID [facility] Last Admin: 06/20/19 09:19 Dose: 5 mg Atorvastatin Calcium (Lipitor -) 40 mg PO [facility] Last Admin: 06/19/19 22:31 Dose: 40 mg Chlorhexidine Gluconate (Hibiclens For Decolonization -) 1 applic TP [facility] Last Admin: 06/19/19 22:33 Dose: Not Given Folic Acid (Folic Acid -) 1 mg PO DAILY [facility] Last Admin: 06/20/19 09:19 Dose: 1 mg Glucagon (Glucagon -) 5 mg IVPUSH Q4H PRN PRN Reason: MAP<65mm Hg OR SBP <90 Isosorbide Mononitrate (Imdur -) 60 mg PO [facility] Last Admin: 06/19/19 23:54 Dose: 60 mg Mupirocin (Bactroban Ointment (For Decolonization) -) 1 applic NS BID [facility] Stop: 06/23/19 21:59 Last Admin: 06/19/19 22:32 Dose: 1 applic Ondansetron HCl (Zofran Injection) 4 mg IVPUSH Q4H PRN PRN Reason: NAUSEA AND/OR VOMITING Last Admin: 06/19/19 22:36 Dose: 4 mg Pantoprazole Sodium (Protonix -) 40 mg PO DAILY [facility] Last Admin: 06/20/19 09:19 Dose: 40 mg Ranolazine (Ranexa -) 500 mg PO BID [facility] Last Admin: 06/20/19 09:19 Dose: 500 mg Tamsulosin HCl (Flomax -) 0.4 mg PO DAILY@0830 [facility] Last Admin: 06/20/19 09:19 Dose: 0.4 mg - Objective Vital Signs: Vital Signs Temperature 98.6 F 06/20/19 08:00 Pulse Rate 72 06/20/19 10:00 Respiratory Rate 16 06/20/19 08:00 Blood Pressure 113/58 L 06/20/19 08:00 O2 Sat by Pulse Oximetry (%) 98 06/19/19 09:00 Constitutional: Yes: No Distress, Calm Neck: Yes: Supple Cardiovascular: Yes: Regular Rate and Rhythm Respiratory: Yes: Regular, CTA Bilaterally Gastrointestinal: Yes: Normal Bowel Sounds, Soft Edema: No Labs: CBC, BMP 06/20/19 06:05 06/20/19 06:05 INR, PTT INR 1.75 (0.83-1.09) H 06/17/19 15:19 - ....Imaging EKG: Report Reviewed (Tele: NSR) Assessment/Plan - Problems (1) KWAME (acute kidney injury) improved Assessment/Plan: BUN/Cr elevated since last admission 2 weeks ago improving Recommend gentle hydration (hx systolic LV dysfunction). F/u BUN/Cr, electrolytes, daily weight, Is and Os. 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 Code(s): K83.8 - OTHER SPECIFIED DISEASES OF BILIARY TRACT (4) Anemia Assessment/Plan: Hb WNL, but dehyrated from N/V/Diarrhea; f/u Hb as fluids are restored. Code(s): D64.9 - ANEMIA, UNSPECIFIED (5) Anxiety Code(s): F41.9 - ANXIETY DISORDER, UNSPECIFIED (6) Atypical chest pain Assessment/Plan: TNI 0.02; f/u serially. EKG: marked sinus bradycardia; nonspecific STT changes which are not significantly changed from EKG admission earlier this month. On Imdur 60 qd and Ranexa 500 bid Beta blockers held presently. Bradycardia resolved. Hx CABG, coronary stents. Prior episodes of chest pain led to coronary angiograms, the latest 10/2018 (no PCI required). Code(s): R07.89 - OTHER CHEST PAIN (7) Hyperlipidemia Assessment/Plan: On atorvastatin 40 qd LDL 43 mg/dL earlier this month; CK 29. Code(s): E78.5 - HYPERLIPIDEMIA, UNSPECIFIED (8) Nausea and vomiting Code(s): R11.2 - NAUSEA WITH VOMITING, UNSPECIFIED Qualifiers: Vomiting type: unspecified Vomiting Intractability: non-intractable Qualified Code(s): R11.2 - Nausea with vomiting, unspecified (9) Paroxysmal atrial fibrillation Code(s): I48.0 - PAROXYSMAL ATRIAL FIBRILLATION On Eliquis 5 bid (10) Sinus bradycardia in context of vasovagal reaction Assessment/Plan: EKG: marked sinus bradycardia, 1st degree AVB; nonspecific STT changes ( compared to early May EKG, ANAND increased, HR reduced 26 bpm; pt had been started on that admission on metoprolol 12.5 mg bid for PAF, systolic LV dysfunction, and HTN). In ER, HR noted in high 30s bpm; reportedly given atropine with no effect; IV glucagon resulted in HR increase. Presently A&Ox3; no chest pain, abdominal pain, dizziness, dyspnea, or palpitations. Plan: Beta blockers held; glucagon available prn. Follow with telemetry monitoring. Gentle hydration (N, V, and diarrhea; elevated BUN/Cr). Code(s): R00.1 - BRADYCARDIA, UNSPECIFIED (11) Pancreatic cancer Assessment/Plan: s/p Whipple's procedure 02/2019. Chemotherapy stopped earlier this month, per pt, after repeated bouts of N, V, and diarrhea. F/u with oncologist. Code(s): C25.9 - MALIGNANT NEOPLASM OF PANCREAS, UNSPECIFIED
[2019-06-20 12:28] LABS: ANISOCYTOSIS 1+; MACROCYTOSIS 0; OVALOCYTE 1+; PLATELET ESTIMATE NORMAL
--- NOTE | 2019-06-20 14:12 | PN ---
Progress Note, Physician History of Present Illness: Coverage Dr. Taylor Pt seen/ Examined comfortable Feels better no distress all f/u noted/ appreciated heart rate better - Current Medication List Current Medications: Active Medications Allopurinol (Zyloprim -) 100 mg PO DAILY [facility] Last Admin: 06/20/19 09:19 Dose: 100 mg Apixaban (Eliquis -) 5 mg PO BID [facility] Last Admin: 06/20/19 09:19 Dose: 5 mg Atorvastatin Calcium (Lipitor -) 40 mg PO [facility] Last Admin: 06/19/19 22:31 Dose: 40 mg Chlorhexidine Gluconate (Hibiclens For Decolonization -) 1 applic TP [facility] Last Admin: 06/19/19 22:33 Dose: Not Given Folic Acid (Folic Acid -) 1 mg PO DAILY [facility] Last Admin: 06/20/19 09:19 Dose: 1 mg Glucagon (Glucagon -) 5 mg IVPUSH Q4H PRN PRN Reason: MAP<65mm Hg OR SBP <90 Isosorbide Mononitrate (Imdur -) 60 mg PO [facility] Last Admin: 06/19/19 23:54 Dose: 60 mg Mupirocin (Bactroban Ointment (For Decolonization) -) 1 applic NS BID [facility] Stop: 06/23/19 21:59 Last Admin: 06/19/19 22:32 Dose: 1 applic Ondansetron HCl (Zofran Injection) 4 mg IVPUSH Q4H PRN PRN Reason: NAUSEA AND/OR VOMITING Last Admin: 06/19/19 22:36 Dose: 4 mg Pantoprazole Sodium (Protonix -) 40 mg PO DAILY [facility] Last Admin: 06/20/19 09:19 Dose: 40 mg Ranolazine (Ranexa -) 500 mg PO BID [facility] Last Admin: 06/20/19 09:19 Dose: 500 mg Tamsulosin HCl (Flomax -) 0.4 mg PO DAILY@0830 [facility] Last Admin: 06/20/19 09:19 Dose: 0.4 mg - Objective Vital Signs: Vital Signs Temperature 98.2 F 06/20/19 11:58 Pulse Rate 64 06/20/19 11:58 Respiratory Rate 16 06/20/19 11:58 Blood Pressure 113/60 06/20/19 11:58 O2 Sat by Pulse Oximetry (%) 98 06/19/19 09:00 Constitutional: Yes: No Distress, Calm Neck: Yes: Supple Cardiovascular: Yes: Regular Rate and Rhythm Respiratory: Yes: CTA Bilaterally Gastrointestinal: Yes: Soft Edema: No Neurological: Yes: Alert Labs: CBC, BMP 06/20/19 06:05 06/20/19 06:05 INR, PTT INR 1.75 (0.83-1.09) H 06/17/19 15:19 Problem List - Problems (1) KWAME (acute kidney injury) Code(s): N17.9 - ACUTE KIDNEY FAILURE, UNSPECIFIED (2) Pancreatic cancer Code(s): C25.9 - MALIGNANT NEOPLASM OF PANCREAS, UNSPECIFIED (3) Sinus bradycardia Code(s): R00.1 - BRADYCARDIA, UNSPECIFIED (4) ASHD (arteriosclerotic heart disease) Code(s): I25.10 - ATHSCL HEART DISEASE OF [place] CORONARY ARTERY W/O ANG PCTRS (5) Diarrhea Code(s): R19.7 - DIARRHEA, UNSPECIFIED Qualifiers: Diarrhea type: unspecified type Qualified Code(s): R19.7 - Diarrhea, unspecified Assessment/Plan Symptomatic Bradycardia- Better Off BB CAD -S/P CABG Paroxysmal AFib (on eliquis) Prostate CA: S/P radiation seeds and chemotherapy N/V - Better Diarrhea- Resolved Overall better Monitor lytes D/c fluids d/w RN also will follow
[2019-06-20] MEDS: MUPIROCIN 2% TOPICAL OINTMENT FOR DECOLONIZATION NS SCH ×2 (21:31→21:32)
[2019-06-20] MEDS: ATORVASTATIN CA 40 MG TABLET (FP) PO SCH (21:31)
[2019-06-20] MEDS: CHLORHEXIDINE GLUCONATE 4% CLEANSER FOR DECOLONIZATION TP SCH (21:32)
[2019-06-20] MEDS: ISOSORBIDE MONONITRATE 60 MG TAB.SR.24H (FP) PO SCH (21:32)
--- NOTE | 2019-06-21 08:12 | PN ---
Progress Note, Physician History of Present Illness: Mr. Waddell is a 79 yr old man (b. [birth year]) with past medical history of coronary artery disease, s/p CABG and coronary stents (latest coronary angiogram, 10/2018 at [facility]: no PCI required), paroxysmal A. fib (on metoprolol and Eliquis), prostate CA, pancreatic (ampulla) CA s/p Whipple's procedure, anemia, hypertension, hyperlipidemia, GERD, hx urinary retention/UTI-->prolonged hospitalization;gout, overweight, relatively sedentary, admitted earlier this month with nausea, vomiting, diarrhea, and chest pain in the setting of recent IV chemotherapy, and now presents to ER with similar sympthms that began again yesterday. Pt was noted to be bradycardic; he has been on metoprolol 12.5 mg bid , was found to be markedly bradycardic (EKG notes sinus bradycardia, 1st degree AVB, HR 37 bpm), and was given IV atropine, then IV glucagon. HR in ER now 45- 50 bpm; BP 110-12- mmHg systolic.Pt is A&Ox3; no further N/V/D; he just ate a sandwich. Pt has had similar previous episodes of N&V and diarrhea, and says chemotherapy was postponed after the last event. 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 - Current Medication List Current Medications: Active Medications Allopurinol (Zyloprim -) 100 mg PO DAILY [facility] Last Admin: 06/20/19 09:19 Dose: 100 mg Apixaban (Eliquis -) 5 mg PO BID [facility] Last Admin: 06/20/19 21:32 Dose: 5 mg Atorvastatin Calcium (Lipitor -) 40 mg PO [facility] Last Admin: 06/20/19 21:31 Dose: 40 mg Chlorhexidine Gluconate (Hibiclens For Decolonization -) 1 applic TP HS [facility] Last Admin: 06/20/19 21:32 Dose: 1 applic Folic Acid (Folic Acid -) 1 mg PO DAILY [facility] Last Admin: 06/20/19 09:19 Dose: 1 mg Glucagon (Glucagon -) 5 mg IVPUSH Q4H PRN PRN Reason: MAP<65mm Hg OR SBP <90 Isosorbide Mononitrate (Imdur -) 60 mg PO HS [facility] Last Admin: 06/20/19 21:32 Dose: 60 mg Mupirocin (Bactroban Ointment (For Decolonization) -) 1 applic NS BID [facility] Stop: 06/23/19 21:59 Last Admin: 06/20/19 21:32 Dose: 1 applic Ondansetron HCl (Zofran Injection) 4 mg IVPUSH Q4H PRN PRN Reason: NAUSEA AND/OR VOMITING Last Admin: 06/19/19 22:36 Dose: 4 mg Pantoprazole Sodium (Protonix -) 40 mg PO DAILY [facility] Last Admin: 06/20/19 09:19 Dose: 40 mg Ranolazine (Ranexa -) 500 mg PO BID [facility] Last Admin: 06/20/19 21:32 Dose: 500 mg Tamsulosin HCl (Flomax -) 0.4 mg PO DAILY@0830 [facility] Last Admin: 06/20/19 09:19 Dose: 0.4 mg - Objective Vital Signs: Vital Signs Temperature 98.3 F 06/21/19 04:00 Pulse Rate 77 06/21/19 04:00 Respiratory Rate 16 06/21/19 04:00 Blood Pressure 117/66 06/21/19 04:00 O2 Sat by Pulse Oximetry (%) 98 06/20/19 21:00 Eyes: Yes: WNL, Conjunctiva Clear, EOM Intact HENT: Yes: WNL, Atraumatic, Normocephalic Neck: Yes: WNL, Supple, Trachea Midline Cardiovascular: Yes: WNL, Regular Rate and Rhythm Respiratory: Yes: WNL, Regular, CTA Bilaterally Gastrointestinal: Yes: WNL, Normal Bowel Sounds Genitourinary: Yes: WNL Musculoskeletal: Yes: WNL Extremities: Yes: WNL Edema: No Integumentary: Yes: WNL Neurological: Yes: WNL, Alert, Oriented ...Motor Strength: WNL Psychiatric: Yes: WNL Labs: CBC, BMP 06/20/19 06:05 06/20/19 06:05 INR, PTT INR 1.75 (0.83-1.09) H 06/17/19 15:19 Assessment/Plan Assessment/Plan - Problems (1) KWAME (acute kidney injury) improved Assessment/Plan: BUN/Cr elevated since last admission 2 weeks ago improving Recommend gentle hydration (hx systolic LV dysfunction). F/u BUN/Cr, electrolytes, daily weight, Is and Os. Code(s): N17.9 - ACUTE KIDNEY FAILURE, UNSPECIFIED (2) ASHD (arteriosclerotic heart disease) Code(s): I25.10 - ATHSCL HEART DISEASE OF [place] CORONARY ARTERY W/O ANG PCTRS (3) Ampulla of Vater mass Assessment/Plan: s/p Whipple's procedure 02/2019. Code(s): K83.8 - OTHER SPECIFIED DISEASES OF BILIARY TRACT (4) Anemia Assessment/Plan: Hb WNL, but dehyrated from N/V/Diarrhea; f/u Hb as fluids are restored. Code(s): D64.9 - ANEMIA, UNSPECIFIED (5) Anxiety Code(s): F41.9 - ANXIETY DISORDER, UNSPECIFIED (6) Atypical chest pain Assessment/Plan: TNI 0.02; f/u serially. EKG: marked sinus bradycardia; nonspecific STT changes which are not significantly changed from EKG admission earlier this month. On Imdur 60 qd and Ranexa 500 bid Beta blockers held presently. Bradycardia resolved. Hx CABG, coronary stents. Prior episodes of chest pain led to coronary angiograms, the latest 10/2018 (no PCI required). Code(s): R07.89 - OTHER CHEST PAIN (7) Hyperlipidemia Assessment/Plan: On atorvastatin 40 qd LDL 43 mg/dL earlier this month; CK 29. Code(s): E78.5 - HYPERLIPIDEMIA, UNSPECIFIED (8) Nausea and vomiting Code(s): R11.2 - NAUSEA WITH VOMITING, UNSPECIFIED Qualifiers: Vomiting type: unspecified Vomiting Intractability: non-intractable Qualified Code(s): R11.2 - Nausea with vomiting, unspecified (9) Paroxysmal atrial fibrillation Code(s): I48.0 - PAROXYSMAL ATRIAL FIBRILLATION On Eliquis 5 bid (10) Sinus bradycardia in context of vasovagal reaction Assessment/Plan: resolved. This morning patient developed multiple runs of non sustained VT. will restart lower dose of Toprol 12.5 QD. check electrolytes. Code(s): R00.1 - BRADYCARDIA, UNSPECIFIED (11) Pancreatic cancer Assessment/Plan: s/p Whipple's procedure 02/2019. Chemotherapy stopped earlier this month, per pt, after repeated bouts of N, V, and diarrhea. F/u with oncologist. Code(s): C25.9 - MALIGNANT NEOPLASM OF PANCREAS, UNSPECIFIED cc time 36 min
[2019-06-21] MEDS: RANOLAZINE E.R. 500 MG TABLET (FP) PO SCH ×2 (09:18→21:15)
[2019-06-21] MEDS: FOLIC ACID 1 MG TABLET (FP) PO SCH (09:18)
[2019-06-21] MEDS: APIXABAN 5 MG TABLET PO SCH ×2 (09:18→21:15)
[2019-06-21] MEDS: TAMSULOSIN HCL 0.4 MG CAP PO SCH (09:18)
[2019-06-21] MEDS: ALLOPURINOL 100 MG TABLET (FP) PO SCH (09:18)
[2019-06-21] MEDS: PANTOPRAZOLE 40 MG TABLET PO SCH (09:18)
[2019-06-21] MEDS: MUPIROCIN 2% TOPICAL OINTMENT FOR DECOLONIZATION NS SCH ×2 (09:19→21:15)
--- NOTE | 2019-06-21 10:58 | DS ---
Physical Examination Vital Signs: Vital Signs Temperature 97.6 F 06/21/19 08:00 Pulse Rate 88 06/21/19 08:00 Respiratory Rate 17 06/21/19 09:00 Blood Pressure 111/72 06/21/19 08:00 O2 Sat by Pulse Oximetry (%) 98 06/21/19 09:00 Findings/Remarks: pt seen/ examined feels well denies pain Constitutional: Yes: No Distress Eyes: Yes: Conjunctiva Clear Neck: Yes: Supple Cardiovascular: Yes: Regular Rate and Rhythm Respiratory: Yes: CTA Bilaterally Edema: No Neurological: Yes: Alert Psychiatric: Yes: Alert Labs: CBC, BMP 06/20/19 06:05 06/20/19 06:05 Discharge Summary Problems reviewed: Yes Reason For Visit: TOXIC EFFECT OF BETA MAGDY Current Active Problems KWAME (acute kidney injury) (Acute) Beta magdy toxicity (Acute) Pancreatic cancer (Acute) Sinus bradycardia (Acute) Hospital Course: Mr. Waddell is a 79 year old male with past medical history significant for s/p Whipple (2018), CAD s/p CABG, cardiac stents x2, EF 30% by echo 06/01/2019, lower extremity stents x2, paroxysmal a-fib on eliquis, prostate CA (radiation) , last chemo therapy 2019 who presented with symptoms of nausea, vomiting x2, and diarrhea x5 that started yesterday. He reported having poor PO intake, only ate small amounts of food today. He reported he was started on metoprolol 12.5mg BID x 1 week ago. He reported that he has had similar episodes in the past before, previously related to his chemotherapy. He reported associated lower right sided chest pain. He denied abdominal pain/ dysuria, shortness of breath, headache, fever/chills. ER course was notable for severe bradycardia, EKG demonstrated sinus bradycardia with heart rate in the 30's with 1st degree heart block, incomplete left bundle branch block, received atropine w/ no improvement in heart rate, ER physician spoke with Cardiology- Dr. Mata, ? beta magdy toxicity,received 3 dosage of IV calcium gluconate and 2 dosages of IV glucagon now with improved heart rates to his baseline Pt feels good now no issues Cardiology recommends hold BB meds reconcilled d/c home today close f/u with his pmd- later today Pt also in agreement Condition: Improved - Instructions Referrals: Samantha Phma MD [Primary Care Provider] - - Home Medications Comprehensive Discharge Medication List: Ambulatory Orders Folic Acid 1 mg PO DAILY 11/04/16 Tamsulosin HCl [Flomax] 0.4 mg PO HS 11/07/17 Allopurinol [Zyloprim -] 100 mg PO DAILY 09/04/18 Lisinopril [Zestril] 5 mg PO DAILY 09/04/18 Tramadol HCl 50 mg PO ASDIR PRN 09/04/18 Isosorbide Mononitrate [Isosorbide Mononitrate ER] 60 mg PO HS 10/12/18 Apixaban [Eliquis] 5 mg PO BID 01/11/19 Atorvastatin Calcium 40 mg PO HS 01/11/19 Ranolazine [Ranexa] 500 mg PO BID 01/11/19 Ondansetron [Zofran *Odt*] 8 mg SL TID PRN 05/29/19 Multivit-Minerals [Certavite-Antioxidant Liquid] 15 ml PO DAILY cup 06/06/19 Pantoprazole Sodium [Protonix -] 40 mg PO DAILY 06/17/19
--- NOTE | 2019-06-21 12:31 | PN ---
Progress Note, Physician History of Present Illness: Pt seen and examined at bedside. He is awake and alert. He denies diarrhea. - Current Medication List Current Medications: Active Medications Allopurinol (Zyloprim -) 100 mg PO DAILY [facility] Last Admin: 06/21/19 09:18 Dose: 100 mg Apixaban (Eliquis -) 5 mg PO BID [facility] Last Admin: 06/21/19 09:18 Dose: 5 mg Atorvastatin Calcium (Lipitor -) 40 mg PO [facility] Last Admin: 06/20/19 21:31 Dose: 40 mg Chlorhexidine Gluconate (Hibiclens For Decolonization -) 1 applic TP [facility] Last Admin: 06/20/19 21:32 Dose: 1 applic Folic Acid (Folic Acid -) 1 mg PO DAILY [facility] Last Admin: 06/21/19 09:18 Dose: 1 mg Glucagon (Glucagon -) 5 mg IVPUSH Q4H PRN PRN Reason: MAP<65mm Hg OR SBP <90 Isosorbide Mononitrate (Imdur -) 60 mg PO [facility] Last Admin: 06/20/19 21:32 Dose: 60 mg Mupirocin (Bactroban Ointment (For Decolonization) -) 1 applic NS BID [facility] Stop: 06/23/19 21:59 Last Admin: 06/21/19 09:19 Dose: 1 applic Ondansetron HCl (Zofran Injection) 4 mg IVPUSH Q4H PRN PRN Reason: NAUSEA AND/OR VOMITING Last Admin: 06/19/19 22:36 Dose: 4 mg Pantoprazole Sodium (Protonix -) 40 mg PO DAILY [facility] Last Admin: 06/21/19 09:18 Dose: 40 mg Ranolazine (Ranexa -) 500 mg PO BID [facility] Last Admin: 06/21/19 09:18 Dose: 500 mg Tamsulosin HCl (Flomax -) 0.4 mg PO DAILY@0830 [facility] Last Admin: 06/21/19 09:18 Dose: 0.4 mg - Objective Vital Signs: Vital Signs Temperature 97.6 F 06/21/19 08:00 Pulse Rate 88 06/21/19 08:00 Respiratory Rate 17 06/21/19 09:00 Blood Pressure 111/72 06/21/19 08:00 O2 Sat by Pulse Oximetry (%) 98 06/21/19 09:00 Constitutional: Yes: Calm Eyes: Yes: Conjunctiva Clear HENT: Yes: Atraumatic Neck: Yes: Supple Cardiovascular: Yes: S1, S2 Respiratory: Yes: CTA Bilaterally Gastrointestinal: Yes: Normal Bowel Sounds, Soft Genitourinary: Yes: WNL Musculoskeletal: Yes: WNL Edema: No Neurological: Yes: Oriented Psychiatric: Yes: Oriented Labs: CBC, BMP 06/20/19 06:05 06/20/19 06:05 INR, PTT INR 1.75 (0.83-1.09) H 06/17/19 15:19 Problem List - Problems (1) KWAME (acute kidney injury) Code(s): N17.9 - ACUTE KIDNEY FAILURE, UNSPECIFIED (2) 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 Code(s): [id number] - Assessment/Plan Current Medications Generic Name Dose Route Start Last Admin Trade Name Freq PRN Reason Stop Dose Admin Allopurinol 100 mg 06/18/19 10:00 06/21/19 09:18 Zyloprim - PO 100 mg DAILY [facility] Administration Apixaban 5 mg 06/17/19 22:00 06/21/19 09:18 Eliquis - PO 5 mg BID [facility] Administration Atorvastatin Calcium 40 mg 06/17/19 22:00 06/20/19 21:31 Lipitor - PO 40 mg HS [facility] Administration Chlorhexidine Gluconate 1 applic 06/18/19 22:00 06/20/19 21:32 Hibiclens For Decolonization - TP 1 applic HS [facility] Administration Folic Acid 1 mg 06/18/19 10:00 06/21/19 09:18 Folic Acid - PO 1 mg DAILY [facility] Administration Glucagon 5 mg 06/17/19 20:07 Glucagon - IVPUSH Q4H PRN MAP<65mm Hg OR SBP <90 Isosorbide Mononitrate 60 mg 06/18/19 22:00 06/20/19 21:32 Imdur - PO 60 mg HS [facility] Administration Mupirocin 1 applic 06/18/19 22:00 06/21/19 09:19 Bactroban Ointment (For Decolonization) - NS 06/23/19 21:59 1 applic BID [facility] Administration Ondansetron HCl 4 mg 06/17/19 18:03 06/19/19 22:36 Zofran Injection IVPUSH 4 mg Q4H PRN Administration NAUSEA AND/OR VOMITING Pantoprazole Sodium 40 mg 06/18/19 10:00 06/21/19 09:18 Protonix - PO 40 mg DAILY [facility] Administration Ranolazine 500 mg 06/17/19 22:00 06/21/19 09:18 Ranexa - PO 500 mg BID [facility] Administration Tamsulosin HCl 0.4 mg 06/18/19 08:30 06/21/19 09:18 Flomax - PO 0.4 mg DAILY@0830 [facility] Administration Impression 1. KWAME 2. vomiting and diarrhea 3. CAD 4. chf 5. a-fib 6. prostate cancer 7. 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
--- NOTE | 2019-06-21 13:53 | PN ---
Progress Note (short form) - Note Progress Note: PULMONARY Runs of NSVT overnight. Denies shortness of breath, chest pain or palpitations. Vital Signs Period Temp Pulse Resp BP Sys/Gardner Pulse Ox Last 24 Hr 97.6 F-98.3 F 77-88 15-19 98-137/61-86 98-98 Gen: NAD at rest Heart: RRR Lung: decreased breath sounds at the bases Abd: soft, nontender Ext: no edema CBC, BMP 06/20/19 06:05 06/20/19 06:05 Active Medications Allopurinol (Zyloprim -) 100 mg PO DAILY [facility] Last Admin: 06/21/19 09:18 Dose: 100 mg Apixaban (Eliquis -) 5 mg PO BID [facility] Last Admin: 06/21/19 09:18 Dose: 5 mg Atorvastatin Calcium (Lipitor -) 40 mg PO [facility] Last Admin: 06/20/19 21:31 Dose: 40 mg Chlorhexidine Gluconate (Hibiclens For Decolonization -) 1 applic TP [facility] Last Admin: 06/20/19 21:32 Dose: 1 applic Folic Acid (Folic Acid -) 1 mg PO DAILY [facility] Last Admin: 06/21/19 09:18 Dose: 1 mg Glucagon (Glucagon -) 5 mg IVPUSH Q4H PRN PRN Reason: MAP<65mm Hg OR SBP <90 Isosorbide Mononitrate (Imdur -) 60 mg PO [facility] Last Admin: 06/20/19 21:32 Dose: 60 mg Metoprolol Succinate (Toprol Xl -) 12.5 mg PO DAILY [facility] Mupirocin (Bactroban Ointment (For Decolonization) -) 1 applic NS BID [facility] Stop: 06/23/19 21:59 Last Admin: 06/21/19 09:19 Dose: 1 applic Ondansetron HCl (Zofran Injection) 4 mg IVPUSH Q4H PRN PRN Reason: NAUSEA AND/OR VOMITING Last Admin: 06/19/19 22:36 Dose: 4 mg Pantoprazole Sodium (Protonix -) 40 mg PO DAILY [facility] Last Admin: 06/21/19 09:18 Dose: 40 mg Ranolazine (Ranexa -) 500 mg PO BID [facility] Last Admin: 06/21/19 09:18 Dose: 500 mg Tamsulosin HCl (Flomax -) 0.4 mg PO DAILY@0830 [facility] Last Admin: 06/21/19 09:18 Dose: 0.4 mg A/P Symptomatic Bradycardia resolved NSVT Paroxysmal Atrial Fibrillation h/o Pancreatic Cancer s/p Whipple Procedure CAD s/p CABG Hyperlipidemia h/o Prostate Ca Gout BPH - resuming low dose beta stepan per cardiology - continue anticoagulation - O2 to keep SpO2 >90% - telemetry monitoring
[2019-06-21] MEDS: metoPROLOL SUCCINATE 25 MG TAB.SR.24H (FP) PO SCH (14:02)
--- NOTE | 2019-06-21 14:11 | EKG ---
Test Reason : Blood Pressure : / mmHG Vent. Rate : 083 BPM Atrial Rate : 083 BPM P-R Int : 172 ms QRS Dur : 114 ms QT Int : 404 ms P-R-T Axes : -06 052 185 degrees QTc Int : 474 ms NORMAL SINUS RHYTHM LEFT BUNDLE BRANCH BLOCK ABNORMAL ECG WHEN COMPARED WITH ECG OF 17-JUN-2019 19:38, MD INTERVAL HAS DECREASED VENT. RATE HAS INCREASED BY 44 BPM Confirmed by Yahir Allen ([id number]) on 06/21/2019 2:11:19 PM Referred By: CALLUM HERNANDEZ Confirmed By:Yahir Allen
[2019-06-21 14:45] LABS: BLOOD UREA NITROGEN 16.4 mg/dL (7-18); CALCIUM 8.9 mg/dL (8.5-10.1); CREATININE 0.9 mg/dL (0.55-1.3); MAGNESIUM 1.8 mg/dL (1.8-2.4); POTASSIUM 3.9 mmol/L (3.5-5.1)
[2019-06-21] MEDS: ATORVASTATIN CA 40 MG TABLET (FP) PO SCH (21:15)
[2019-06-21] MEDS ORDERED: PT OWN MED DRAWER 7, Y5N ONE (21:18)
[2019-06-21] MEDS: ISOSORBIDE MONONITRATE 60 MG TAB.SR.24H (FP) PO SCH (21:19)
[2019-06-21] MEDS: CHLORHEXIDINE GLUCONATE 4% CLEANSER FOR DECOLONIZATION TP SCH (21:24)
--- NOTE | 2019-06-22 08:14 | PN ---
Progress Note, Physician Chief Complaint: Pt A&OX3; no palpitations, dyspnea, or chest pain; had "gas pain" overnight, but stopped after burping. History of Present Illness: Mr. Waddell is a 79 yr old man (b. [birth year]) with past medical history of coronary artery disease, s/p CABG and coronary stents (latest coronary angiogram, 10/2018 at [facility]: no PCI required), paroxysmal A. fib (on metoprolol and Eliquis), prostate CA, pancreatic (ampulla) CA s/p Whipple's procedure, anemia, hypertension, hyperlipidemia, GERD, hx urinary retention/UTI-->prolonged hospitalization;gout, overweight, relatively sedentary, admitted earlier this month with nausea, vomiting, diarrhea, and chest pain in the setting of recent IV chemotherapy, and now presents to ER with similar sympthms that began again yesterday. Pt was noted to be bradycardic; he has been on metoprolol 12.5 mg bid , was found to be markedly bradycardic (EKG notes sinus bradycardia, 1st degree AVB, HR 37 bpm), and was given IV atropine, then IV glucagon. HR in ER now 45- 50 bpm; BP 110-12- mmHg systolic.Pt is A&Ox3; no further N/V/D; he just ate a sandwich. Pt has had similar previous episodes of N&V and diarrhea, and says chemotherapy was postponed after the last event. 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 - Current Medication List Current Medications: Active Medications Allopurinol (Zyloprim -) 100 mg PO DAILY [facility] Last Admin: 06/21/19 09:18 Dose: 100 mg Apixaban (Eliquis -) 5 mg PO BID [facility] Last Admin: 06/21/19 21:15 Dose: 5 mg Atorvastatin Calcium (Lipitor -) 40 mg PO HS [facility] Last Admin: 06/21/19 21:15 Dose: 40 mg Chlorhexidine Gluconate (Hibiclens For Decolonization -) 1 applic TP [facility] Last Admin: 06/21/19 21:24 Dose: Not Given Folic Acid (Folic Acid -) 1 mg PO DAILY [facility] Last Admin: 06/21/19 09:18 Dose: 1 mg Glucagon (Glucagon -) 5 mg IVPUSH Q4H PRN PRN Reason: MAP<65mm Hg OR SBP <90 Isosorbide Mononitrate (Imdur -) 60 mg PO HS [facility] Last Admin: 06/21/19 21:19 Dose: 60 mg Metoprolol Succinate (Toprol Xl -) 12.5 mg PO DAILY [facility] Last Admin: 06/21/19 14:02 Dose: 12.5 mg Mupirocin (Bactroban Ointment (For Decolonization) -) 1 applic NS BID [facility] Stop: 06/23/19 21:59 Last Admin: 06/21/19 21:15 Dose: 1 applic Ondansetron HCl (Zofran Injection) 4 mg IVPUSH Q4H PRN PRN Reason: NAUSEA AND/OR VOMITING Last Admin: 06/19/19 22:36 Dose: 4 mg Pantoprazole Sodium (Protonix -) 40 mg PO DAILY [facility] Last Admin: 06/21/19 09:18 Dose: 40 mg Polyethylene Glycol (Miralax (For Daily Use) -) 17 gm PO DAILY [facility] Ranolazine (Ranexa -) 500 mg PO BID [facility] Last Admin: 06/21/19 21:15 Dose: 500 mg Tamsulosin HCl (Flomax -) 0.4 mg PO DAILY@0830 [facility] Last Admin: 06/21/19 09:18 Dose: 0.4 mg - Objective Vital Signs: Vital Signs Temperature 98 F 06/22/19 06:00 Pulse Rate 72 06/22/19 06:00 Respiratory Rate 22 H 06/22/19 06:00 Blood Pressure 136/64 06/22/19 06:00 O2 Sat by Pulse Oximetry (%) 98 06/21/19 21:00 Constitutional: Yes: No Distress Eyes: Yes: WNL HENT: Yes: WNL Cardiovascular: Yes: S1, S2 Labs: CBC, BMP 06/20/19 06:05 06/21/19 14:00 INR, PTT INR 1.75 (0.83-1.09) H 06/17/19 15:19 Problem List - Problems (1) KWAME (acute kidney injury) Assessment/Plan: BUN/Cr elevated since last admission 2 weeks ago. Recommend gentle hydration (hx systolic LV dysfunction). F/u BUN/Cr, electrolytes, daily weight, Is and Os. Code(s): N17.9 - ACUTE KIDNEY FAILURE, UNSPECIFIED (2) ASHD (arteriosclerotic heart disease) Code(s): I25.10 - ATHSCL HEART DISEASE OF [place] CORONARY ARTERY W/O ANG PCTRS (3) Ampulla of Vater mass Assessment/Plan: s/p Whipple's procedure 02/2019. Code(s): K83.8 - OTHER SPECIFIED DISEASES OF BILIARY TRACT (4) Anemia Assessment/Plan: Hb WNL, but dehyrated from N/V/Diarrhea; f/u Hb as fluids are restored. Code(s): D64.9 - ANEMIA, UNSPECIFIED (5) Anxiety Code(s): F41.9 - ANXIETY DISORDER, UNSPECIFIED (6) Atypical chest pain Assessment/Plan: TNI 0.02; f/u serially. EKG: marked sinus bradycardia; nonspecific STT changes which are not significantly changed from EKG admission earlier this month. On Imdur. Beta blockers held presently. Hx CABG, coronary stents. Prior episodes of chest pain led to coronary angiograms, the latest 10/2018 (no PCI required). Code(s): R07.89 - OTHER CHEST PAIN (7) Hyperlipidemia Assessment/Plan: On atorvastatin LDL 43 mg/dL earlier this month; CK 29. Code(s): E78.5 - HYPERLIPIDEMIA, UNSPECIFIED (8) Nausea and vomiting Code(s): R11.2 - NAUSEA WITH VOMITING, UNSPECIFIED Qualifiers: Vomiting type: unspecified Vomiting Intractability: non-intractable Qualified Code(s): R11.2 - Nausea with vomiting, unspecified (9) Paroxysmal atrial fibrillation Code(s): I48.0 - PAROXYSMAL ATRIAL FIBRILLATION (10) Sinus bradycardia Assessment/Plan: Pt had episode of NSVT yesterday morning. He has been restarted on metoprolol ER (12.5 mg daily); telemetry shows no further episodes part from ventricula couplets late evening. Pt is asymptomatic. F/u EKG. Hx severe LV dysfunction, a substarte for arrhythmia (evaluated previously, and not considered a candidate for ICD). Maintain electrolytes. Planned for discharge home today.F/u as outpatient for cardiac monitoring; clemencia plan for loop recorder. Code(s): R00.1 - BRADYCARDIA, UNSPECIFIED (11) Pancreatic cancer Code(s): C25.9 - MALIGNANT NEOPLASM OF PANCREAS, UNSPECIFIED
[2019-06-22] MEDS: FOLIC ACID 1 MG TABLET (FP) PO SCH (09:23)
[2019-06-22] MEDS: PANTOPRAZOLE 40 MG TABLET PO SCH (09:23)
[2019-06-22] MEDS: APIXABAN 5 MG TABLET PO SCH (09:23)
[2019-06-22] MEDS: metoPROLOL SUCCINATE 25 MG TAB.SR.24H (FP) PO SCH (09:23)
[2019-06-22] MEDS: ALLOPURINOL 100 MG TABLET (FP) PO SCH (09:23)
[2019-06-22] MEDS: RANOLAZINE E.R. 500 MG TABLET (FP) PO SCH (09:24)
[2019-06-22] MEDS: TAMSULOSIN HCL 0.4 MG CAP PO SCH (09:25)
[2019-06-22] MEDS: MUPIROCIN 2% TOPICAL OINTMENT FOR DECOLONIZATION NS SCH (09:25)
[2019-06-22 09:38] VITALS: BP 112/70; PULSE 77; TEMP 97.9
[2019-06-22] MEDS ORDERED: POLYETHYLENE GLYCOL 3350 119 GM BTL PO SCH (10:00)
--- NOTE | 2019-06-22 11:39 | PN ---
Progress Note (short form) - Note Progress Note: pt examined no complaints feels well Vital Signs - 24 hr 06/21/19 06/21/19 06/21/19 18:42 21:00 22:00 Temperature 98.1 F 98 F Pulse Rate 57 L 71 Respiratory 18 24 H 24 H Rate Blood Pressure 115/65 121/60 O2 Sat by Pulse 98 Oximetry (%) 06/22/19 06/22/19 06/22/19 02:00 06:00 09:00 Temperature 98.2 F 98 F Pulse Rate 75 72 Respiratory 31 H 22 H 22 H Rate Blood Pressure 102/57 L 136/64 O2 Sat by Pulse 98 Oximetry (%) 06/22/19 09:35 Temperature 97.9 F Pulse Rate 77 Respiratory 22 H Rate Blood Pressure 112/70 O2 Sat by Pulse Oximetry (%) S1S2 RRR lungs clear Abd- soft, NT,ND no edema Assessment/Plan Symptomatic Bradycardia- Better Off BB CAD -S/P CABG Paroxysmal AFib (on eliquis) Prostate CA: S/P radiation seeds and chemotherapy N/V - Better Diarrhea- Resolved Overall better dc planning continue with meds Problem List - Problems (1) KWAME (acute kidney injury) Code(s): N17.9 - ACUTE KIDNEY FAILURE, UNSPECIFIED (2) ASHD (arteriosclerotic heart disease) Code(s): I25.10 - ATHSCL HEART DISEASE OF 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
--- NOTE | 2019-06-22 13:26 | EKG ---
Test Reason : Blood Pressure : / mmHG Vent. Rate : 073 BPM Atrial Rate : 073 BPM P-R Int : 174 ms QRS Dur : 134 ms QT Int : 430 ms P-R-T Axes : -16 022 111 degrees QTc Int : 473 ms NORMAL SINUS RHYTHM NON-SPECIFIC INTRA-VENTRICULAR CONDUCTION BLOCK ABNORMAL QRS-T ANGLE, CONSIDER PRIMARY T WAVE ABNORMALITY ABNORMAL ECG Confirmed by Michael Bautista MD ([id number]) on 06/22/2019 1:26:37 PM Referred By: DAVID HARDING DR Confirmed By:Michael Bautista MD
== END 2019-06-22 11:50 | disposition home or self-care (01) | DRG 918 ==
LOC: JER 13:37 → SUPCPDRO 13:37 → JERBED 17:03 → J2W 06-18 21:36
PROVIDERS: ADMIT Internal Medicine; ATTEND Internal Medicine
DX: T44.7X1A Poisoning by beta-adrenoreceptor antagonists, accidental (unintentional), initial encounter (principal); N17.9 Acute kidney failure, unspecified; C25.9 Malignant neoplasm of pancreas, unspecified; I25.10 Atherosclerotic heart disease of native coronary artery without angina pectoris; I44.7 Left bundle-branch block, unspecified; I48.0 Paroxysmal atrial fibrillation; I44.0 Atrioventricular block, first degree; I73.9 Peripheral vascular disease, unspecified; K83.8 Other specified diseases of biliary tract; R07.89 Other chest pain; R19.7 Diarrhea, unspecified; D64.9 Anemia, unspecified; M10.9 Gout, unspecified; F41.9 Anxiety disorder, unspecified; M54.5 Low back pain; N40.0 Benign prostatic hyperplasia without lower urinary tract symptoms; E66.3 Overweight; I10 Essential (primary) hypertension; K21.9 Gastro-esophageal reflux disease without esophagitis; Z95.1 Presence of aortocoronary bypass graft; Z85.46 Personal history of malignant neoplasm of prostate; Z68.24 Body mass index [BMI] 24.0-24.9, adult
CPT/HCPCS: 36415; 71045-TC-FY; 80048; 80053; 81003; 82550; 82565; 83735; 83930; 83935; 84100; 84156; 84300; 84443; 84484; 85025; 85610; 85730; 86850; 86900; 86901; 93005; 93010; 99291; J0131; J7030

== ENCOUNTER 2019-07-09 17:11 | Inpatient (IN) | payer OTHER, MEDICARE ==
[2019-07-09 17:38] VITALS: BMI 23.6
--- NOTE | 2019-07-09 17:41 | PDOC ---
History of Present Illness - General Chief Complaint: Chest Pain Stated Complaint: CHEST PAIN Time Seen by Provider: 07/09/19 17:40 History Source: Patient Exam Limitations: No Limitations - History of Present Illness Initial Comments: 07/09/19 17:41 Alf Waddell is a 79M with H Whipple procedure (2018), CAD s/p CABG+stenting, AFIB on Eliquis, prostate cancer s/p brachytherapy, no longer on chemotherapy, presenting with nausea, vomiting, diarrhea, and chest pain. Patient reports that he has been having significant non-bloody and non-bilious diarrhea and vomiting with a left-sided chest pain which he describes as a discomfort and gas pressure that he always gets with abdominal pain, lots of belching. Has had this exact presentation before while on chemo but has since stopped. Last hospitalization one month ago. Denies any fever, chills, palpitations, SOB, dizziness, urinary sx, leg swelling. Able to ambulate without issue. Has not had any abdominal pain associated with symptoms. Says that he feels fine at this time. Past History - Past Medical History Allergies/Adverse Reactions: Allergies Allergy/AdvReac Type Severity Reaction Status Date / Time strawberry Allergy Severe Swelling Verified 07/09/19 17:30 pepper (genus Capsicum) Allergy Unknown Verified 07/09/19 17:30 black pepper Allergy Verified 07/09/19 17:30 iohexol [From Omnipaque] Allergy Rash Verified 07/09/19 17:30 Iodinated Contrast Media AdvReac Rash Verified 07/09/19 17:30 red pepper Allergy Uncoded 07/09/19 17:30 Home Medications: Ambulatory Orders Folic Acid 1 mg PO DAILY 11/04/16 Allopurinol [Zyloprim -] 100 mg PO DAILY 09/04/18 Lisinopril [Zestril] 5 mg PO DAILY 09/04/18 Tramadol HCl 50 mg PO ASDIR PRN 09/04/18 Isosorbide Mononitrate [Isosorbide Mononitrate ER] 60 mg PO HS 10/12/18 Apixaban [Eliquis] 5 mg PO BID 01/11/19 Atorvastatin Calcium 40 mg PO HS 01/11/19 Ranolazine [Ranexa] 500 mg PO BID 01/11/19 Ondansetron [Zofran *Odt*] 8 mg SL TID PRN 05/29/19 Multivit-Minerals [Certavite-Antioxidant Liquid] 15 ml PO DAILY cup 06/06/19 Pantoprazole Sodium [Protonix -] 40 mg PO DAILY 06/17/19 Anemia: No Asthma: No Cancer: Yes (PROSTATE CANCER 2011) Cardiac Disorders: Yes (coronary artery disease, cardiac bypass 10 years ago, Afib) CVA: No COPD: No CHF: Yes Dementia: No Diabetes: No GI Disorders: No Disorders: Yes (STONES) HTN: Yes Hypercholesterolemia: Yes Kidney Stones: Yes Liver Disease: No Seizures: No Thyroid Disease: No - Surgical History Abdominal Surgery: Yes (whipple) Appendectomy: No Cardiac Surgery: Yes (open heart, 2 stents) Cholecystectomy: No Lung Surgery: No Neurologic Surgery: No Orthopedic Surgery: No - Immunization History Immunization Up to Date: Yes - Psycho Social/Smoking Cessation Hx Smoking Status: Yes Smoking History: Never smoked Have you smoked in the past 12 months: No Number of Cigarettes Smoked Daily: 0 If you are a former smoker, when did you quit?: 2002 Cigars Per Day: 0 'Breaking Loose' booklet given: 11/10/17 Hx Alcohol Use: No Drug/Substance Use Hx: No Substance Use Type: None Hx Substance Use Treatment: No Review of Systems - Review of Systems Able to Perform ROS?: Yes Constitutional: No: Chills, Fever HEENTM: No: Symptoms Reported Respiratory: No: Cough, Shortness of Breath, SOB with Exertion, SOB at Rest, Wheezing Cardiac (ROS): Yes: Chest Pain. No: Edema, Lightheadedness, Syncope ABD/GI: Yes: Diarrhea, Nausea, Vomiting. No: Poor Appetite, Poor Fluid Intake : No: Symptoms Reported Musculoskeletal: No: Symptoms Reported Integumentary: No: Symptoms Reported Neurological: No: Headache, Numbness, Paresthesia, Pre-Existing Deficit, Seizure Endocrine: No: Symptoms Reported Hematologic/Lymphatic: No: Symptoms Reported All Other Systems: Reviewed and Negative *Physical Exam - Vital Signs Last Vital Signs Temp Pulse Resp BP Pulse Ox 97.8 F 51 L 18 89/55 L 96 07/09/19 17:36 07/09/19 17:36 07/09/19 17:36 07/09/19 17:36 07/09/19 17:36 - Physical Exam General Appearance: Yes: Nourished, Appropriately Dressed, Other (resting comfortably in the ED, in NAD). No: Apparent Distress HEENT: positive: EOMI, CHERRY, Normal ENT Inspection, Normal Voice, Symmetrical, Pharynx Normal. negative: Scleral Icterus (R), Scleral Icterus (L), Muffled/Hoarse voice, Pharyngeal Erythema, Tonsillar Exudate Neck: positive: Normal Thyroid, Supple. negative: Tender, Rigid, Lymphadenopathy (R), Lymphadenopathy (L) Respiratory/Chest: positive: Lungs Clear, Normal Breath Sounds. negative: Chest Tender, Respiratory Distress, Accessory Muscle Use, Crackles, Rales, Rhonchi, Stridor, Wheezing Cardiovascular: positive: Regular Rhythm, Regular Rate Gastrointestinal/Abdominal: positive: Normal Bowel Sounds, Flat, Soft. negative: Tender, Guarding, Rebound Musculoskeletal: positive: Normal Inspection. negative: CVA Tenderness, Decreased Range of Motion, Muscle Spasm Extremity: positive: Normal Capillary Refill, Normal Inspection, Normal Range of Motion, Pelvis Stable. negative: Tender Integumentary: positive: Normal Color, Dry, Warm Neurologic: positive: Fully Oriented, Alert, Normal Mood/Affect, Normal Response ED Treatment Course - LABORATORY CBC & Chemistry Diagram: 07/09/19 17:57 07/09/19 17:57 Medical Decision Making - Medical Decision Making 07/09/19 19:00 Patient presents with bradycardia and hypotension in the setting of nausea/vomiting/diarrhea with chest pain. Patient is alert and oriented and feeling very well despite having hypotension to 90s/60s with bradycardia as low as 37, completely asymptomatic. Defib pads on patient but no atropine needed given lack of symptoms. Started on 1L NS and labs drawn. Needs admission for chest pain eval and new onset hypotension/tachycardia. Concerned for C.diff given recent hospitalization and diarrhea but has not has stools in ED. - CBC/CMP for eval lytes/anemia - CP/ECG/CXR for eval cardiac pathology - lipase for eval abd pathology ECG shows sinus bradycardia with HR 42, 1st degree AV block with DC 236, wide QRS 135, and prolonged QTc 442, no concerning ischemic changes. Giving 2mg Magnesium for wide QRS. CXR shows no acute pathology. Labs notable for: - CBC WNL - AP391 - AST 51 - BUN 20.4 - Cr 1.5 - lactate 2.2, ordering 2nd liter 07/09/19 19:[address] Khanna, admit for tele. Still jackie but absolutely no sx, doing very well. Discharge - Discharge Information Problems reviewed: Yes Clinical Impression/Diagnosis: Bradycardia Chest pain Qualifiers: Chest pain type: unspecified Qualified Code(s): R07.9 - Chest pain, unspecified Hypotension Qualifiers: Hypotension type: unspecified hypotension type Qualified Code(s): I95.9 - Hypotension, unspecified - Admission Yes - Follow up/Referral - Patient Discharge Instructions - Post Discharge Activity
[2019-07-09] MEDS ORDERED: ONDANSETRON 4 MG/2 ML VIAL IVPUSH ONE (17:59)
[2019-07-09] MEDS ORDERED: SODIUM CHLORIDE 0.9% 500 ML INFUS.BAG IV ONE (17:59)
[2019-07-09] MEDS ORDERED: ONDANSETRON 4 MG/2 ML VIAL ONE (18:08)
[2019-07-09 18:23] LABS: BASO % 0.9 % (0-2.0); EOS % 3.1 % (0-4.5); HEMATOCRIT 39.5 % (35.4-49); HEMOGLOBIN 12.7 GM/dL (11.7-16.9); LYMPH % 14.3 % (8-40); MCH 30.8 pg (25.7-33.7); MCHC 32.2 g/dl (32.0-35.9); MEAN CELL VOLUME 95.7 fl (80-96); MEAN PLT VOLUME 9.3 fl (7.5-11.1); MONO % 12.9 % (3.8-10.2); NEUT % 68.8 % (42.8-82.8); PLATELET COUNT 256 K/MM3 (134-434); RBC 4.13 M/mm3 (4.00-5.60); WHITE BLOOD COUNT 7.8 K/mm3 (4.0-10.0)
[2019-07-09 18:47] LABS: INR 2.04 (0.83-1.09); PROTHROMBIN TIME (PATIENT) 24.3 SEC (9.7-13.0)
[2019-07-09 18:48] LABS: ALBUMIN 3.4 g/dl (3.4-5.0); ALK PHOS 391 U/L (45-117); ANION GAP 10 MMOL/L (8-16); BILIRUBIN,TOTAL 0.7 mg/dL (0.2-1); BLOOD UREA NITROGEN 20.4 mg/dL (7-18); CALCIUM 8.9 mg/dL (8.5-10.1); CHLORIDE 102 mmol/L (98-107); CO2 24 mmol/L (21-32); CREATININE 1.5 mg/dL (0.55-1.3); GLUCOSE,RANDOM 135 mg/dL (74-106); LIPASE 29 U/L (73-393); POTASSIUM 4.6 mmol/L (3.5-5.1); SGOT/AST 51 U/L (15-37); SGPT/ALT 51 U/L (13-61); SODIUM 136 mmol/L (136-145); TOT PROT 6.6 g/dl (6.4-8.2)
[2019-07-09] MEDS ORDERED: MAGNESIUM SULF 50% (8.12 MEQ/2 ML-1 GM VIAL) IVPB ONE (18:56)
[2019-07-09] MEDS ORDERED: SODIUM BICARBONATE 8.4% 50 MEQ/50 ML DISP.SYRIN IVPUSH ONE (18:56)
--- NOTE | 2019-07-09 19:04 | PDOC ---
History of Present Illness - General Chief Complaint: Chest Pain Stated Complaint: CHEST PAIN Time Seen by Provider: 07/09/19 17:40 History Source: Patient Exam Limitations: No Limitations - History of Present Illness Initial Comments: 07/09/19 19:00 79 M with a hx of pancreatic cancer (s/p Whipple Feb 2019), CAD s/p CABG, afib on eliquis presents to the emergency department with N/V/D for 1 day. The patient is currently no longer taking chemotherapy. At the time of sign out, the patient was awaiting admission Past History - Past Medical History Allergies/Adverse Reactions: Allergies Allergy/AdvReac Type Severity Reaction Status Date / Time strawberry Allergy Severe Swelling Verified 07/09/19 17:30 pepper (genus Capsicum) Allergy Unknown Verified 07/09/19 17:30 black pepper Allergy Verified 07/09/19 17:30 iohexol [From Omnipaque] Allergy Rash Verified 07/09/19 17:30 Iodinated Contrast Media AdvReac Rash Verified 07/09/19 17:30 red pepper Allergy Uncoded 07/09/19 17:30 Home Medications: Ambulatory Orders Folic Acid 1 mg PO DAILY 11/04/16 Allopurinol [Zyloprim -] 100 mg PO DAILY 09/04/18 Lisinopril [Zestril] 5 mg PO DAILY 09/04/18 Tramadol HCl 50 mg PO ASDIR PRN 09/04/18 Isosorbide Mononitrate [Isosorbide Mononitrate ER] 60 mg PO HS 10/12/18 Apixaban [Eliquis] 5 mg PO BID 01/11/19 Atorvastatin Calcium 40 mg PO HS 01/11/19 Ranolazine [Ranexa] 500 mg PO BID 01/11/19 Ondansetron [Zofran *Odt*] 8 mg SL TID PRN 05/29/19 Multivit-Minerals [Certavite-Antioxidant Liquid] 15 ml PO DAILY cup 06/06/19 Pantoprazole Sodium [Protonix -] 40 mg PO DAILY 06/17/19 Anemia: No Asthma: No Cancer: Yes (PROSTATE CANCER 2011) Cardiac Disorders: Yes (coronary artery disease, cardiac bypass 10 years ago, Afib) CVA: No COPD: No CHF: Yes Dementia: No Diabetes: No GI Disorders: No Disorders: Yes (STONES) HTN: Yes Hypercholesterolemia: Yes Kidney Stones: Yes Liver Disease: No Seizures: No Thyroid Disease: No - Surgical History Abdominal Surgery: Yes (whipple) Appendectomy: No Cardiac Surgery: Yes (open heart, 2 stents) Cholecystectomy: No Lung Surgery: No Neurologic Surgery: No Orthopedic Surgery: No - Immunization History Immunization Up to Date: Yes - Psycho Social/Smoking Cessation Hx Smoking Status: Yes Smoking History: Never smoked Have you smoked in the past 12 months: No Number of Cigarettes Smoked Daily: 0 If you are a former smoker, when did you quit?: 2002 Cigars Per Day: 0 Information on smoking cessation initiated: No 'Breaking Loose' booklet given: 11/10/17 Hx Alcohol Use: No Drug/Substance Use Hx: No Substance Use Type: None Hx Substance Use Treatment: No *Physical Exam - Vital Signs Last Vital Signs Temp Pulse Resp BP Pulse Ox 97.8 F 51 L 18 89/55 L 97 07/09/19 17:36 07/09/19 17:36 07/09/19 17:36 07/09/19 17:36 07/09/19 17:45 ED Treatment Course - LABORATORY CBC & Chemistry Diagram: 07/10/19 05:30 07/10/19 05:30 - ADDITIONAL ORDERS Additional order review: Laboratory Results 07/09/19 07/09/19 17:57 17:57 PT with INR 24.30 H INR 2.04 H Sodium 136 Potassium 4.6 Chloride 102 Carbon Dioxide 24 Anion Gap 10 BUN 20.4 H Creatinine 1.5 H Est GFR (CKD-EPI)AfAm 50.59 Est GFR (CKD-EPI)NonAf 43.65 Random Glucose 135 H Calcium 8.9 Total Bilirubin 0.7 AST 51 H ALT 51 Alkaline Phosphatase 391 H Creatine Kinase 32 Troponin I < 0.02 Total Protein 6.6 Albumin 3.4 Lipase 29 L 07/09/19 17:57 RBC 4.13 MCV 95.7 MCHC 32.2 RDW 20.0 H MPV 9.3 Neutrophils % 68.8 Lymphocytes % 14.3 Monocytes % 12.9 H Eosinophils % 3.1 D Basophils % 0.9 - Medications Given in the ED: ED Medications Discontinued Medications Generic Name Dose Route Start Last Admin Trade Name Freq PRN Reason Stop Dose Admin Ondansetron HCl 4 mg 07/09/19 17:59 07/09/19 18:29 Zofran Injection IVPUSH 07/09/19 18:00 4 mg NOW ONE Administration Sodium Chloride 1,000 ml 07/09/19 17:59 07/09/19 18:29 Normal Saline - IV 07/09/19 18:00 1,000 ml ONCE ONE Administration Medical Decision Making - Medical Decision Making The admission was conducted by Dr. Moran. Patient was accepted for admission by [facility]. Discharge - Discharge Information Problems reviewed: Yes Clinical Impression/Diagnosis: Bradycardia Chest pain Qualifiers: Chest pain type: unspecified Qualified Code(s): R07.9 - Chest pain, unspecified Hypotension Qualifiers: Hypotension type: unspecified hypotension type Qualified Code(s): I95.9 - Hypotension, unspecified - Follow up/Referral - Patient Discharge Instructions - Post Discharge Activity
[2019-07-09] MEDS ORDERED: SODIUM CHLORIDE 1,000 ML IV STA (19:06)
[2019-07-09 19:33] LABS: MAGNESIUM 2.3 mg/dL (1.8-2.4)
[2019-07-09] MEDS ORDERED: MAGNESIUM 1GM/D5W - 2 GM/200 ML IVPB IVPB ONE (19:35)
--- NOTE | 2019-07-09 19:50 | HP ---
Admitting History and Physical - Primary Care Physician PCP: Celine Goldberg - Admission Chief Complaint: Chest Pain, Nausea, Vomiting, Diarrhea History of Present Illness: This is a 79 year old male with a past medical history of Pancreatic CA s/p Whipple procedure 02/2019. Who presents to the ED for evaluation of diarrhea. The patient reports that he has multiple episodes of watery diarrhea with abdominal cramping which is relieved by his diarrhea. On arrival, patient was hypotensive and bradycardic. He notes that his heart rate is always low. Patient denies headache, lightheadedness. Denies fever, chills. Denies chest pain, shortness of breath. Denies nausea, vomiting. Denies travel. History Source: Patient Limitations to Obtaining History: Poor Historian - Past Medical History Cardiovascular: Yes: AFIB, CAD, CHF, HTN, Hyperlipdemia, Other (PVD, CAD, Coronary Bypass, CAD, Stent lower left leg) Gastrointestinal: Yes: GERD Hepatobiliary: Yes: Other (dilated CBD ? etiology) Renal/: Yes: BPH (had laser TURB following the RT), Cancer (prostate cancer treated with RT seeds and ext. beam), Renal Calculi, Other (urethral stricture dilated in the past and culminating in urosepsis) Heme/Onc: Yes: Anemia, Cancer Psych: Yes: Anxiety Musculoskeletal: Yes: Osteoarthritis (Chronic Lower back pain) Rheumatology: Yes: Gout - Past Surgical History Past Surgical History: Yes: CABG, Stent (stents, both cardiac and LLE) Additional Past Surgical History: Whipple 02/2019 Lithotripsy - Smoking History Smoking history: Former smoker Have you smoked in the past 12 months: No Aproximately how many cigarettes per day: 0 If you are a former smoker, when did you quit?: 2002 - Alcohol/Substance Use Hx Alcohol Use: No History of Substance Use: reports: None - Social History Usual Living Arrangement: Yes: With Spouse ADL: Independent 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 History of Recent Travel: No Home Medications - Allergies Allergies/Adverse Reactions: Allergies Allergy/AdvReac Type Severity Reaction Status Date / Time strawberry Allergy Severe Swelling Verified 07/09/19 17:30 pepper (genus Capsicum) Allergy Unknown Verified 07/09/19 17:30 black pepper Allergy Verified 07/09/19 17:30 iohexol [From Omnipaque] Allergy Rash Verified 07/09/19 17:30 Iodinated Contrast Media AdvReac Rash Verified 07/09/19 17:30 red pepper Allergy Uncoded 07/09/19 17:30 - Home Medications Home Medications: Ambulatory Orders Folic Acid 1 mg PO DAILY 11/04/16 Allopurinol [Zyloprim -] 100 mg PO DAILY 09/04/18 Lisinopril [Zestril] 5 mg PO DAILY 09/04/18 Tramadol HCl 50 mg PO ASDIR PRN 09/04/18 Isosorbide Mononitrate [Isosorbide Mononitrate ER] 60 mg PO HS 10/12/18 Apixaban [Eliquis] 5 mg PO BID 01/11/19 Atorvastatin Calcium 40 mg PO HS 01/11/19 Ranolazine [Ranexa] 500 mg PO BID 01/11/19 Ondansetron [Zofran *Odt*] 8 mg SL TID PRN 05/29/19 Multivit-Minerals [Certavite-Antioxidant Liquid] 15 ml PO DAILY cup 06/06/19 Pantoprazole Sodium [Protonix -] 40 mg PO DAILY 06/17/19 Family Medical History Family History: Unable to Obtain Review of Systems - Review of Systems Constitutional: reports: No Symptoms Eyes: reports: No Symptoms HENT: reports: No Symptoms Neck: reports: No Symptoms Cardiovascular: reports: Chest Pain Respiratory: reports: No Symptoms Gastrointestinal: reports: Diarrhea, Nausea, Vomiting Genitourinary: reports: No Symptoms Breasts: reports: No Symptoms Reported Musculoskeletal: reports: No Symptoms Integumentary: reports: No Symptoms Neurological: reports: No Symptoms Endocrine: reports: No Symptoms Hematology/Lymphatic: reports: No Symptoms Psychiatric: reports: No Symptoms Pain Intensity: 4 Physical Examination Vital Signs: Vital Signs Temperature 97.8 F 07/09/19 17:36 Pulse Rate 51 L 07/09/19 17:36 Respiratory Rate 18 07/09/19 17:36 Blood Pressure 89/55 L 07/09/19 17:36 O2 Sat by Pulse Oximetry (%) 97 07/09/19 17:45 Constitutional: Yes: No Distress, Calm Eyes: Yes: Conjunctiva Clear, EOM Intact, PERRL HENT: Yes: Atraumatic, Normocephalic, Other (dry mucous membranes) Neck: Yes: WNL, Supple, Trachea Midline Cardiovascular: Yes: Regular Rate and Rhythm, Bradycardia, S1, S2 Labs: CBC, BMP 07/09/19 17:57 07/09/19 17:57 Imaging - Results Chest X-ray: Report Reviewed, Image Reviewed EKG: Image Reviewed Problem List - Problems (1) Bradycardia Code(s): R00.1 - BRADYCARDIA, UNSPECIFIED (2) Chest pain Code(s): R07.9 - CHEST PAIN, UNSPECIFIED Qualifiers: Chest pain type: unspecified Qualified Code(s): R07.9 - Chest pain, unspecified (3) KWAME (acute kidney injury) Code(s): N17.9 - ACUTE KIDNEY FAILURE, UNSPECIFIED (4) Acute on chronic systolic and diastolic heart failure, NYHA class 1 Code(s): I50.43 - ACUTE ON CHRONIC COMBINED SYSTOLIC AND DIASTOLIC HRT FAIL (5) Anemia Code(s): D64.9 - ANEMIA, UNSPECIFIED (6) Anxiety Code(s): F41.9 - ANXIETY DISORDER, UNSPECIFIED (7) BPH (benign prostatic hyperplasia) Code(s): N40.0 - BENIGN PROSTATIC HYPERPLASIA WITHOUT LOWER URINRY TRACT SYMP (8) Coronary artery disease Code(s): I25.10 - ATHSCL HEART DISEASE OF [place] CORONARY ARTERY W/O ANG PCTRS (9) Gout Code(s): M10.9 - GOUT, UNSPECIFIED (10) HTN (hypertension) Code(s): I10 - ESSENTIAL (PRIMARY) HYPERTENSION (11) Hyperlipidemia Code(s): E78.5 - HYPERLIPIDEMIA, UNSPECIFIED (12) Paroxysmal atrial fibrillation Code(s): I48.0 - PAROXYSMAL ATRIAL FIBRILLATION Assessment/Plan This is a 79 year old male with a past medical history of Pancreatic CA s/p Whipple procedure 02/2019. Admitted to Telemetry for Chest Pain, Bradycardia for further evaluation of their emergent condition. Plan: Cardiac monitoring Serial Enzymes Appreciate Cardiology consult- defer to primary team Pacer Pads Magnesium Sulfate, Sodium bicarb given in ED Hold BB Monitor CBC, BMP in am Reviewed recent Echo Continue Eliquis Dispo: Requires Inpatient Care Visit type - Emergency Visit Emergency Visit: Yes ED Registration Date: 07/09/19 Care time: The patient presented to the Emergency Department on the above date and was hospitalized for further evaluation of their emergent condition. - New Patient This patient is new to me today: Yes Date on this admission: 07/09/19 - Critical Care Critical Care patient: No
[2019-07-10 00:38] LABS: EPI CELLS 5 /uL (0-25.1); HYALINE CASTS 1 /uL (0-3.1); PH,URINE 7.5 (5.0-8.0); URINE APPEARANCE CLEAR; URINE BACTERIA 0 /uL (0-1359); URINE BILIRUBIN NEGATIVE (NEGATIVE); URINE COLOR YELLOW; URINE GLUCOSE (UA) NEGATIVE (NEGATIVE); URINE KETONE NEGATIVE (NEGATIVE); URINE LEUK ESTERASE 1+ (NEGATIVE); URINE NITRITE NEGATIVE (NEGATIVE); URINE PROTEIN NEGATIVE (NEGATIVE); URINE RBC 12 /uL (0-23.9); URINE WBC 34 /uL (0-25.8)
--- NOTE | 2019-07-10 02:13 | PDOC ---
Documentation entered by Jef Lozano SCRIBE, acting as scribe for Manuel Ponce DO. Manuel Ponce DO: This documentation has been prepared by the Blake palmer Daniel, SCRIBE, under my direction and personally reviewed by me in its entirety. I confirm that the documentation accurately reflects all work, treatment, procedures, and medical decision making performed by me. Attending Attestation - Resident Resident Name: DeanJosue - ED Attending Attestation I have performed the following: I have examined & evaluated the patient, The case was reviewed & discussed with the resident, I agree w/resident's findings & plan, Exceptions are as noted - HPI HPI: 07/09/19 18:37 The patient is a 79 year old male with a past medical history of pancreatic CA s/p Whipple procedure 02/2019 here today for evaluation of diarrhea. The patient reports that he has multiple episodes of watery diarrhea with abdominal cramping which is relieved by his diarrhea. On arrival, patient was hypotensive and bradycardic. He notes that his heart rate is always low. Patient denies headache, lightheadedness. Denies fever, chills. Denies chest pain, shortness of breath. Denies nausea, vomiting. Denies travel. - Physicial Exam PE: 07/09/19 18:40 Hypoten jackie 44 GENERAL: Awake, alert, and fully oriented, in no acute distress HEAD: No signs of trauma EYES: PERRLA, EOMI, sclera anicteric, conjunctiva clear ENT: Auricles normal inspection, hearing grossly normal, nares patent, oropharynx clear without exudates. Moist mucosa NECK: Normal ROM, supple, no lymphadenopathy, JVD, or masses LUNGS: Breath sounds equal, clear to auscultation bilaterally. No wheezes, and no crackles HEART: +bradycaric at 44. +hypotensive. Regular rhythm, normal S1 and S2, no murmurs, rubs or gallops ABDOMEN: Soft, nontender, normoactive bowel sounds. No guarding, no rebound. No masses EXTREMITIES: Normal range of motion, no edema. No clubbing or cyanosis. No cords, erythema, or tenderness NEUROLOGICAL: Cranial nerves II through XII grossly intact. Normal speech, normal gait SKIN: Warm, Dry, normal turgor, no rashes or lesions noted. - Medical Decision Making 07/09/19 18:41 79 year old male here with diarrhea. Will evaluate hypotension, diarrhea, gastroenteritis. Will evaluate electrolytes including potassium and magnesium. Will order IV fluids and reassess blood pressure. Will consider atropine if patient becomes symptomatic. Will order CT abdomen pelvis given surgical history and abdominal pain. On reassessment patient appears well, MAP is 65, blood pressure is 92/65, heart rate is 45. Patient has no complaints at this time. Will admit to tele. 07/09/19 20:06 Patient's blood pressure is 98/65, heart rate is 60, O2 sat is 96, patient is comfortable and appears well. Patient received his 2 gram magnesium bolus with improvement. Heart Score/ECG Review - ECG Intrepretation Comment:: 07/09/19 20:08 Sinus bradycardia, 1st degree AV block, nonspecific intraventricular block, incomplete left bundle, nonspecific t wave inversions, performed at 1731 Discharge - Discharge Information Clinical Impression/Diagnosis: Chest pain, Hypotension, Bradycardia - Follow up/Referral - Patient Discharge Instructions - Post Discharge Activity
[2019-07-10 05:54] LABS: BASO % 0.5 % (0-2.0); EOS % 4.8 % (0-4.5); HEMATOCRIT 33.9 % (35.4-49); HEMOGLOBIN 11.2 GM/dL (11.7-16.9); LYMPH % 17.4 % (8-40); MCH 31.4 pg (25.7-33.7); MCHC 33.2 g/dl (32.0-35.9); MEAN CELL VOLUME 94.5 fl (80-96); MEAN PLT VOLUME 8.8 fl (7.5-11.1); MONO % 13.4 % (3.8-10.2); NEUT % 63.9 % (42.8-82.8); PLATELET COUNT 200 K/MM3 (134-434); RBC 3.58 M/mm3 (4.00-5.60); RDW 19.9 % (11.9-15.9); WHITE BLOOD COUNT 7.2 K/mm3 (4.0-10.0)
[2019-07-10] MEDS: SODIUM CHLORIDE 1,000 ML IV SCH (06:42)
[2019-07-10 07:00] LABS: ALBUMIN 2.9 g/dl (3.4-5.0); BILIRUBIN,TOTAL 0.8 mg/dL (0.2-1); BLOOD UREA NITROGEN 18.8 mg/dL (7-18); CALCIUM 8.4 mg/dL (8.5-10.1); CREATININE 1.2 mg/dL (0.55-1.3); POTASSIUM 4.8 mmol/L (3.5-5.1); TOT PROT 5.5 g/dl (6.4-8.2)
--- NOTE | 2019-07-10 09:59 | HP ---
Admitting History and Physical - Primary Care Physician PCP: Samantha Pham - Admission History of Present Illness: 79 year old male with a past medical history of Pancreatic CA s/p Whipple procedure 02/2019. Who presents to the ED for evaluation of diarrhea. The patient reports that he has multiple episodes of watery diarrhea with abdominal cramping which is relieved by his diarrhea. On arrival, patient was hypotensive and bradycardic. History Source: Patient, Family Member - Past Medical History Cardiovascular: Yes: AFIB, CAD, CHF, HTN, Hyperlipdemia, Other (PVD, CAD, Coronary Bypass, CAD, Stent lower left leg) Gastrointestinal: Yes: GERD, Other (S/p whipples procedure) Hepatobiliary: Yes: Other (dilated CBD ? etiology) Renal/: Yes: BPH (had laser TURB following the RT), Cancer (prostate cancer treated with RT seeds and ext. beam), Renal Calculi, Other (urethral stricture dilated in the past and culminating in urosepsis) Heme/Onc: Yes: Anemia, Cancer Psych: Yes: Anxiety Musculoskeletal: Yes: Osteoarthritis (Chronic Lower back pain) Rheumatology: Yes: Gout - Past Surgical History Past Surgical History: Yes: CABG, Stent (stents, both cardiac and LLE) Additional Past Surgical History: Whipple 02/2019 Lithotripsy - Smoking History Smoking history: Former smoker Have you smoked in the past 12 months: No Aproximately how many cigarettes per day: 0 If you are a former smoker, when did you quit?: 2002 - Alcohol/Substance Use Hx Alcohol Use: No History of Substance Use: reports: None - Social History ADL: Independent 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 History of Recent Travel: No Home Medications - Allergies Allergies/Adverse Reactions: Allergies Allergy/AdvReac Type Severity Reaction Status Date / Time strawberry Allergy Severe Swelling Verified 07/09/19 17:30 pepper (genus Capsicum) Allergy Unknown Verified 07/09/19 17:30 black pepper Allergy Verified 07/09/19 17:30 iohexol [From Omnipaque] Allergy Rash Verified 07/09/19 17:30 Iodinated Contrast Media AdvReac Rash Verified 07/09/19 17:30 red pepper Allergy Uncoded 07/09/19 17:30 - Home Medications Home Medications: Ambulatory Orders Folic Acid 1 mg PO DAILY 07/17/17 Allopurinol [Zyloprim -] 100 mg PO DAILY 09/04/18 Lisinopril [Zestril] 5 mg PO DAILY 09/04/18 Tramadol HCl 50 mg PO ASDIR PRN 09/04/18 Isosorbide Mononitrate [Isosorbide Mononitrate ER] 60 mg PO HS 10/12/18 Apixaban [Eliquis] 5 mg PO BID 01/11/19 Atorvastatin Calcium 40 mg PO HS 01/11/19 Ranolazine [Ranexa] 500 mg PO BID 01/11/19 Ondansetron [Zofran *Odt*] 8 mg SL TID PRN 05/29/19 Multivit-Minerals [Certavite-Antioxidant Liquid] 15 ml PO DAILY cup 06/06/19 Pantoprazole Sodium [Protonix -] 40 mg PO DAILY 06/17/19 Physical Examination Vital Signs: Vital Signs Temperature 97.7 F 07/10/19 08:00 Pulse Rate 66 07/10/19 08:00 Respiratory Rate 20 07/10/19 08:00 Blood Pressure 137/66 07/10/19 08:00 O2 Sat by Pulse Oximetry (%) 97 07/10/19 08:00 Labs: CBC, BMP 07/10/19 05:30 07/10/19 05:30 Problem List - Problems (1) Bradycardia Code(s): R00.1 - BRADYCARDIA, UNSPECIFIED (2) Hypotension Code(s): I95.9 - HYPOTENSION, UNSPECIFIED Qualifiers: Hypotension type: unspecified hypotension type Qualified Code(s): I95.9 - Hypotension, unspecified (3) Ampulla of Vater mass Code(s): K83.8 - OTHER SPECIFIED DISEASES OF BILIARY TRACT (4) Anemia Code(s): D64.9 - ANEMIA, UNSPECIFIED (5) BPH (benign prostatic hyperplasia) Code(s): N40.0 - BENIGN PROSTATIC HYPERPLASIA WITHOUT LOWER URINRY TRACT SYMP (6) Chemotherapy induced nausea and vomiting Code(s): R11.2 - NAUSEA WITH VOMITING, UNSPECIFIED; T45.1X5A - ADVERSE EFFECT OF ANTINEOPLASTIC AND IMMUNOSUP DRUGS, INIT (7) Chronic diastolic (congestive) heart failure Code(s): I50.32 - CHRONIC DIASTOLIC (CONGESTIVE) HEART FAILURE (8) Chronic lower back pain Code(s): M54.5 - LOW BACK PAIN; G89.29 - OTHER CHRONIC PAIN (9) Diarrhea Code(s): R19.7 - DIARRHEA, UNSPECIFIED Qualifiers: Diarrhea type: unspecified type Qualified Code(s): R19.7 - Diarrhea, unspecified (10) HTN (hypertension) Code(s): I10 - ESSENTIAL (PRIMARY) HYPERTENSION (11) Hematuria Code(s): R31.9 - HEMATURIA, UNSPECIFIED Qualifiers: Hematuria type: gross Qualified Code(s): R31.0 - Gross hematuria (12) Hx of CABG Code(s): Z95.1 - PRESENCE OF AORTOCORONARY BYPASS GRAFT (13) Nausea and vomiting Code(s): R11.2 - NAUSEA WITH VOMITING, UNSPECIFIED Qualifiers: Vomiting type: unspecified Vomiting Intractability: non-intractable Qualified Code(s): R11.2 - Nausea with vomiting, unspecified (14) Obesity Code(s): E66.9 - OBESITY, UNSPECIFIED (15) Pancreatic cancer Code(s): C25.9 - MALIGNANT NEOPLASM OF PANCREAS, UNSPECIFIED (16) Paroxysmal atrial fibrillation Code(s): I48.0 - PAROXYSMAL ATRIAL FIBRILLATION Assessment/Plan (1) Bradycardia Code(s): R00.1 - BRADYCARDIA, UNSPECIFIED (2) Hypotension Code(s): I95.9 - HYPOTENSION, UNSPECIFIED Qualifiers: Hypotension type: unspecified hypotension type Qualified Code(s): I95.9 - Hypotension, unspecified (3) Ampulla of Vater mass Code(s): K83.8 - OTHER SPECIFIED DISEASES OF BILIARY TRACT (4) Anemia Code(s): D64.9 - ANEMIA, UNSPECIFIED (5) BPH (benign prostatic hyperplasia) Code(s): N40.0 - BENIGN PROSTATIC HYPERPLASIA WITHOUT LOWER URINRY TRACT SYMP (6) Chemotherapy induced nausea and vomiting Code(s): R11.2 - NAUSEA WITH VOMITING, UNSPECIFIED; T45.1X5A - ADVERSE EFFECT OF ANTINEOPLASTIC AND IMMUNOSUP DRUGS, INIT (7) Chronic diastolic (congestive) heart failure Code(s): I50.32 - CHRONIC DIASTOLIC (CONGESTIVE) HEART FAILURE (8) Chronic lower back pain Code(s): M54.5 - LOW BACK PAIN; G89.29 - OTHER CHRONIC PAIN (9) Diarrhea Code(s): R19.7 - DIARRHEA, UNSPECIFIED Qualifiers: Diarrhea type: unspecified type Qualified Code(s): R19.7 - Diarrhea, unspecified (10) HTN (hypertension) Code(s): I10 - ESSENTIAL (PRIMARY) HYPERTENSION (11) Hematuria Code(s): R31.9 - HEMATURIA, UNSPECIFIED Qualifiers: Hematuria type: gross Qualified Code(s): R31.0 - Gross hematuria (12) Hx of CABG Code(s): Z95.1 - PRESENCE OF AORTOCORONARY BYPASS GRAFT (13) Nausea and vomiting Code(s): R11.2 - NAUSEA WITH VOMITING, UNSPECIFIED Qualifiers: Vomiting type: unspecified Vomiting Intractability: non-intractable Qualified Code(s): R11.2 - Nausea with vomiting, unspecified (14) Obesity Code(s): E66.9 - OBESITY, UNSPECIFIED (15) Pancreatic cancer Code(s): C25.9 - MALIGNANT NEOPLASM OF PANCREAS, UNSPECIFIED (16) Paroxysmal atrial fibrillation Code(s): I48.0 - PAROXYSMAL ATRIAL FIBRILLATION
[2019-07-10] MEDS ORDERED: ONDANSETRON 4 MG/2 ML VIAL IVPUSH PRN (10:06)
[2019-07-10] MEDS: ALLOPURINOL 100 MG TABLET (FP) PO SCH (11:10)
[2019-07-10] MEDS: APIXABAN 5 MG TABLET PO SCH ×2 (11:10→22:10)
[2019-07-10] MEDS: RANOLAZINE E.R. 500 MG TABLET (FP) PO SCH ×2 (11:10→22:10)
[2019-07-10] MEDS: PANTOPRAZOLE 40 MG TABLET PO SCH (11:10)
[2019-07-10] MEDS: FOLIC ACID 1 MG TABLET (FP) PO SCH (11:10)
[2019-07-10] MEDS: metoPROLOL SUCCINATE 25 MG TAB.SR.24H (FP) PO SCH (11:10)
[2019-07-10] MEDS: ISOSORBIDE MONONITRATE 60 MG TAB.SR.24H (FP) PO SCH (11:10)
[2019-07-10] MEDS ORDERED: PANTOPRAZOLE 40 MG TABLET ONE (11:13)
[2019-07-10] MEDS ORDERED: ISOSORBIDE MONONITRATE 60 MG TAB.SR.24H (FP) PO ONE (11:13)
[2019-07-10] MEDS ORDERED: FOLIC ACID 1 MG TABLET (FP) ONE (11:13)
[2019-07-10] MEDS ORDERED: APIXABAN 5 MG TABLET ONE ×2 (11:13→21:43)
[2019-07-10] MEDS ORDERED: ALLOPURINOL 100 MG TABLET (FP) ONE (11:13)
[2019-07-10] MEDS ORDERED: POTASSIUM CHLORIDE 10 MEQ in SODIUM CHLORIDE 0.45% 1,000 ML IVPB SCH (17:00)
[2019-07-10] MEDS ORDERED: ATORVASTATIN CA 40 MG TABLET (FP) ONE (21:43)
[2019-07-10] MEDS ORDERED: ATORVASTATIN CA 40 MG TABLET (FP) PO SCH (22:00)
[2019-07-11] MEDS: SODIUM CHLORIDE 1,000 ML IV SCH (06:39)
[2019-07-11 07:19] LABS: BASO % 0.3 % (0-2.0); EOS % 3.3 % (0-4.5); HEMATOCRIT 33.2 % (35.4-49); HEMOGLOBIN 11.3 GM/dL (11.7-16.9); LYMPH % 13.9 % (8-40); MCH 31.9 pg (25.7-33.7); MCHC 33.9 g/dl (32.0-35.9); MEAN CELL VOLUME 94.2 fl (80-96); MEAN PLT VOLUME 8.6 fl (7.5-11.1); MONO % 10.8 % (3.8-10.2); NEUT % 71.7 % (42.8-82.8); PLATELET COUNT 209 K/MM3 (134-434); RBC 3.53 M/mm3 (4.00-5.60); RDW 19.2 % (11.9-15.9); WHITE BLOOD COUNT 7.6 K/mm3 (4.0-10.0)
[2019-07-11 07:37] LABS: CALCIUM 8.7 mg/dL (8.5-10.1); CREATININE 1.1 mg/dL (0.55-1.3); POTASSIUM 4.4 mmol/L (3.5-5.1)
[2019-07-11] MEDS ORDERED: TAMSULOSIN HCL 0.4 MG CAP ONE (07:55)
[2019-07-11] MEDS ORDERED: APIXABAN 5 MG TABLET ONE ×2 (07:55→13:59)
[2019-07-11] MEDS ORDERED: ISOSORBIDE MONONITRATE 60 MG TAB.SR.24H (FP) PO ONE ×2 (07:55→13:59)
[2019-07-11] MEDS ORDERED: PANTOPRAZOLE 40 MG TABLET ONE ×2 (07:55→13:59)
[2019-07-11] MEDS ORDERED: ALLOPURINOL 100 MG TABLET (FP) ONE (07:56)
[2019-07-11] MEDS ORDERED: FOLIC ACID 1 MG TABLET (FP) ONE ×2 (07:56→14:00)
[2019-07-11] MEDS ORDERED: TAMSULOSIN HCL 0.4 MG CAP PO SCH (08:30)
[2019-07-11 09:35] VITALS: TEMP 98
--- NOTE | 2019-07-11 13:37 | PN ---
Progress Note, Physician History of Present Illness: Pt is better No Fever No SOB - Current Medication List Current Medications: Active Medications Allopurinol (Zyloprim -) 100 mg PO DAILY [facility] Last Admin: 07/10/19 11:10 Dose: 100 mg Documented by: Apixaban (Eliquis -) 5 mg PO BID [facility] Last Admin: 07/10/19 22:10 Dose: 5 mg Documented by: Atorvastatin Calcium (Lipitor -) 40 mg PO HS [facility] Last Admin: 07/10/19 22:10 Dose: 40 mg Documented by: Folic Acid (Folic Acid -) 1 mg PO DAILY [facility] Last Admin: 07/10/19 11:10 Dose: 1 mg Documented by: Sodium Chloride (Normal Saline -) 1,000 mls @ 30 mls/hr IV ASDIR [facility] Last Admin: 07/11/19 06:39 Dose: 30 mls/hr Documented by: Potassium Chloride 10 meq/ (Sodium Chloride) 1,005 mls @ 60 mls/hr IVPB Q24H [facility] Last Admin: 07/10/19 17:30 Dose: 60 mls/hr Documented by: Isosorbide Mononitrate (Imdur -) 60 mg PO DAILY [facility] Last Admin: 07/10/19 11:10 Dose: 60 mg Documented by: Metoprolol Succinate (Toprol Xl -) 12.5 mg PO DAILY [facility] Last Admin: 07/10/19 11:10 Dose: 12.5 mg Documented by: Ondansetron HCl (Zofran Injection) 4 mg IVPUSH Q8H PRN PRN Reason: NAUSEA Pantoprazole Sodium (Protonix -) 40 mg PO DAILY [facility] Last Admin: 07/10/19 11:10 Dose: 40 mg Documented by: Ranolazine (Ranexa -) 500 mg PO BID [facility] Last Admin: 07/10/19 22:10 Dose: 500 mg Documented by: Tamsulosin HCl (Flomax -) 0.4 mg PO DAILY@0830 [facility] Last Admin: 07/11/19 08:35 Dose: 0.4 mg Documented by: - Objective Vital Signs: Vital Signs Temperature 98 F 07/11/19 08:00 Pulse Rate 61 07/11/19 08:00 Respiratory Rate 18 07/11/19 08:00 Blood Pressure 140/70 07/11/19 08:00 O2 Sat by Pulse Oximetry (%) 100 07/10/19 16:26 Constitutional: Yes: No Distress, Calm Eyes: Yes: Conjunctiva Clear, EOM Intact HENT: Yes: Atraumatic, Normocephalic Neck: Yes: Supple, Trachea Midline Cardiovascular: Yes: Regular Rate and Rhythm, S1, S2 Respiratory: Yes: Regular, CTA Bilaterally Gastrointestinal: Yes: Normal Bowel Sounds, Soft Edema: No Peripheral Pulses WNL: Yes Labs: CBC, BMP 07/11/19 06:32 07/11/19 06:32 INR, PTT INR 2.04 (0.83-1.09) H 07/09/19 17:57 Problem List - Problems (1) Bradycardia Code(s): R00.1 - BRADYCARDIA, UNSPECIFIED (2) Hypotension Code(s): I95.9 - HYPOTENSION, UNSPECIFIED Qualifiers: Hypotension type: unspecified hypotension type Qualified Code(s): I95.9 - Hypotension, unspecified (3) Ampulla of Vater mass Code(s): K83.8 - OTHER SPECIFIED DISEASES OF BILIARY TRACT (4) Anemia Code(s): D64.9 - ANEMIA, UNSPECIFIED (5) BPH (benign prostatic hyperplasia) Code(s): N40.0 - BENIGN PROSTATIC HYPERPLASIA WITHOUT LOWER URINRY TRACT SYMP (6) Chemotherapy induced nausea and vomiting Code(s): R11.2 - NAUSEA WITH VOMITING, UNSPECIFIED; T45.1X5A - ADVERSE EFFECT OF ANTINEOPLASTIC AND IMMUNOSUP DRUGS, INIT (7) Chronic diastolic (congestive) heart failure Code(s): I50.32 - CHRONIC DIASTOLIC (CONGESTIVE) HEART FAILURE (8) Chronic lower back pain Code(s): M54.5 - LOW BACK PAIN; G89.29 - OTHER CHRONIC PAIN (9) Diarrhea Code(s): R19.7 - DIARRHEA, UNSPECIFIED Qualifiers: Diarrhea type: unspecified type Qualified Code(s): R19.7 - Diarrhea, unspecified (10) HTN (hypertension) Code(s): I10 - ESSENTIAL (PRIMARY) HYPERTENSION (11) Hematuria Code(s): R31.9 - HEMATURIA, UNSPECIFIED Qualifiers: Hematuria type: gross Qualified Code(s): R31.0 - Gross hematuria (12) Hx of CABG Code(s): Z95.1 - PRESENCE OF AORTOCORONARY BYPASS GRAFT (13) Nausea and vomiting Code(s): R11.2 - NAUSEA WITH VOMITING, UNSPECIFIED Qualifiers: Vomiting type: unspecified Vomiting Intractability: non-intractable Quali fied Code(s): R11.2 - Nausea with vomiting, unspecified (14) Obesity Code(s): E66.9 - OBESITY, UNSPECIFIED (15) Pancreatic cancer Code(s): C25.9 - MALIGNANT NEOPLASM OF PANCREAS, UNSPECIFIED (16) Paroxysmal atrial fibrillation Code(s): I48.0 - PAROXYSMAL ATRIAL FIBRILLATION
[2019-07-11] MEDS: ISOSORBIDE MONONITRATE 60 MG TAB.SR.24H (FP) PO SCH (14:00)
[2019-07-11] MEDS: RANOLAZINE E.R. 500 MG TABLET (FP) PO SCH (14:00)
[2019-07-11] MEDS: PANTOPRAZOLE 40 MG TABLET PO SCH (14:00)
[2019-07-11] MEDS: APIXABAN 5 MG TABLET PO SCH (14:00)
[2019-07-11] MEDS: metoPROLOL SUCCINATE 25 MG TAB.SR.24H (FP) PO SCH (14:00)
[2019-07-11] MEDS: FOLIC ACID 1 MG TABLET (FP) PO SCH (14:00)
[2019-07-11] MEDS: ALLOPURINOL 100 MG TABLET (FP) PO SCH (14:00)
--- NOTE | 2019-07-11 15:01 | DS ---
Physical Examination Vital Signs: Vital Signs Temperature 98 F 07/11/19 08:00 Pulse Rate 62 07/11/19 14:32 Respiratory Rate 18 07/11/19 14:32 Blood Pressure 135/70 07/11/19 14:32 O2 Sat by Pulse Oximetry (%) 97 07/11/19 14:32 Findings/Remarks: Pt had Low BP and Bradycardia Pt had GE with Dehydration Pt responded well with IV fluids Pt stable last 24 h spoke with patient and Pt will go home Pt has all meds at home Pt will FU with Dr Taylor in one week Pt will be DCed home today spoke with Nurse also. Constitutional: Yes: No Distress Eyes: Yes: Conjunctiva Clear, EOM Intact HENT: Yes: Atraumatic, Normocephalic Neck: Yes: Supple, Trachea Midline Cardiovascular: Yes: Regular Rate and Rhythm, S1, S2 Respiratory: Yes: Regular, CTA Bilaterally Gastrointestinal: Yes: Normal Bowel Sounds, Soft Edema: No Peripheral Pulses WNL: Yes Neurological: Yes: Alert, Oriented Labs: CBC, BMP 07/11/19 06:32 07/11/19 06:32 Discharge Summary Problems reviewed: Yes Reason For Visit: BRADYCARDIA Current Active Problems Bradycardia (Acute) Chest pain (Acute) Hypotension (Acute) - Instructions - Home Medications Comprehensive Discharge Medication List: Ambulatory Orders Folic Acid 1 mg PO DAILY 11/04/16 Allopurinol [Zyloprim -] 100 mg PO DAILY 09/04/18 Lisinopril [Zestril] 5 mg PO DAILY 09/04/18 Tramadol HCl 50 mg PO ASDIR PRN 09/04/18 Isosorbide Mononitrate [Isosorbide Mononitrate ER] 60 mg PO HS 10/12/18 Apixaban [Eliquis] 5 mg PO BID 01/11/19 Atorvastatin Calcium 40 mg PO HS 01/11/19 Ranolazine [Ranexa] 500 mg PO BID 01/11/19 Ondansetron [Zofran *Odt*] 8 mg SL TID PRN 05/29/19 Multivit-Minerals [Certavite-Antioxidant Liquid] 15 ml PO DAILY cup 06/06/19 Pantoprazole Sodium [Protonix -] 40 mg PO DAILY 06/17/19
[2019-07-11 17:20] VITALS: BP 100/72; PULSE 66
--- NOTE | 2019-07-12 09:12 | EKG ---
Test Reason : Blood Pressure : / mmHG Vent. Rate : 047 BPM Atrial Rate : 047 BPM P-R Int : 236 ms QRS Dur : 134 ms QT Int : 500 ms P-R-T Axes : 092 038 105 degrees QTc Int : 442 ms POOR DATA QUALITY, INTERPRETATION MAY BE ADVERSELY AFFECTED SINUS BRADYCARDIA WITH 1ST DEGREE A-V BLOCK NON-SPECIFIC INTRA-VENTRICULAR CONDUCTION BLOCK ABNORMAL QRS-T ANGLE, CONSIDER PRIMARY T WAVE ABNORMALITY ABNORMAL ECG WHEN COMPARED WITH ECG OF 22-JUN-2019 10:14, MD INTERVAL HAS INCREASED VENT. RATE HAS DECREASED BY 26 BPM Confirmed by Yahir Allen ([id number]) on 07/12/2019 9:11:47 AM Referred By: Confirmed By:Yahir Allen
== END 2019-07-11 17:10 | disposition home or self-care (01) | DRG 315 ==
LOC: JER 17:11 → JERBED 19:13 → OBSVTOIN 07-10 02:19
PROVIDERS: ADMIT Internal Medicine; ATTEND Internal Medicine
DX: I95.9 Hypotension, unspecified (principal); I50.32 Chronic diastolic (congestive) heart failure; C25.9 Malignant neoplasm of pancreas, unspecified; R00.1 Bradycardia, unspecified; I25.10 Atherosclerotic heart disease of native coronary artery without angina pectoris; I11.0 Hypertensive heart disease with heart failure; Z95.1 Presence of aortocoronary bypass graft; Z79.01 Long term (current) use of anticoagulants; I44.0 Atrioventricular block, first degree; F41.9 Anxiety disorder, unspecified; N40.0 Benign prostatic hyperplasia without lower urinary tract symptoms; D64.9 Anemia, unspecified; M10.9 Gout, unspecified; I48.0 Paroxysmal atrial fibrillation; E86.0 Dehydration; K52.9 Noninfective gastroenteritis and colitis, unspecified
CPT/HCPCS: 36415; 71045-TC-FY; 80048; 80053; 81003; 82550; 83605; 83690; 83735; 84484; 85025; 85610; 87086; 93005; 93010; 99285-25; G0378; J7030

== ENCOUNTER 2020-01-02 18:21 | Emergency (ER) | payer OTHER, MEDICARE ==
[2020-01-02 18:41] VITALS: BP 132/60; PULSE 51; TEMP 98; BMI 25.8
--- NOTE | 2020-01-02 19:25 | PDOC ---
History of Present Illness - General Chief Complaint: Injury Stated Complaint: FALL Time Seen by Provider: 01/02/20 19:11 - History of Present Illness Initial Comments: Alf Waddell is a 79 y/o male with PMH significant for pancreatic CA s/p whipple 02/2019, a-fib, CAD, CHF, HTN, HLD, PVD, CABG, stents x2 in BLE and cardiac stents x2, prostate CA, BPH, OA, presenting today s/p mechanical fall. Reports that he was watering his plants today when he stepped off the sidewalk, tripped, and fell forward. Landed on his face on the ground. Denies LOC. No dizziness/heart palpitations prior to fall. Complaining of mild frontal headache and pain over his nose, otherwise no other complaints. No chest pain/shortness of breath. No abdominal pain. No nausea/vomiting. No vision changes. Past History - Medical History Allergies/Adverse Reactions: Allergies Allergy/AdvReac Type Severity Reaction Status Date / Time strawberry Allergy Severe Swelling Verified 01/02/20 18:41 pepper (genus Capsicum) Allergy Unknown Verified 01/02/20 18:41 black pepper Allergy Verified 01/02/20 18:41 iohexol [From Omnipaque] Allergy Rash Verified 01/02/20 18:41 Iodinated Contrast Media AdvReac Rash Verified 01/02/20 18:41 red pepper Allergy Uncoded 01/02/20 18:41 Home Medications: Ambulatory Orders Folic Acid 1 mg PO DAILY 11/04/16 Allopurinol [Zyloprim -] 100 mg PO DAILY 09/04/18 Lisinopril [Zestril] 5 mg PO DAILY 09/04/18 Tramadol HCl 50 mg PO ASDIR PRN 09/04/18 Isosorbide Mononitrate [Isosorbide Mononitrate ER] 60 mg PO HS 10/12/18 Apixaban [Eliquis] 5 mg PO BID 01/11/19 Atorvastatin Calcium 40 mg PO HS 01/11/19 Ranolazine [Ranexa] 500 mg PO BID 01/11/19 Ondansetron [Zofran *Odt*] 8 mg SL TID PRN 05/29/19 Multivit-Minerals [Certavite-Antioxidant Liquid] 15 ml PO DAILY cup 06/06/19 Pantoprazole Sodium [Protonix -] 40 mg PO DAILY 06/17/19 Anemia: No Asthma: No Cancer: Yes (PROSTATE CANCER 2011) Cardiac Disorders: Yes (coronary artery disease, cardiac bypass 10 years ago, Afib) CVA: No COPD: No CHF: Yes Dementia: No Diabetes: No GI Disorders: No Disorders: Yes (STONES) HTN: Yes Hypercholesterolemia: Yes Kidney Stones: Yes Liver Disease: No Seizures: No Thyroid Disease: No - Surgical History Abdominal Surgery: Yes (whipple) Appendectomy: No Cardiac Surgery: Yes (open heart, 2 stents) Cholecystectomy: No Lung Surgery: No Neurologic Surgery: No Orthopedic Surgery: No - Immunization History Immunization Up to Date: Yes - Psycho-Social/Smoking History Smoking Status: Yes Smoking History: Never smoked Have you smoked in the past 12 months: No Number of Cigarettes Smoked Daily: 0 If you are a former smoker, when did you quit?: 2002 Cigars Per Day: 0 'Breaking Loose' booklet given: 11/10/17 - Substance Abuse Hx (Audit-C & DAST Scrn) How often the patient has a drink containing alcohol: Never Score: In Men: 4 or > Positive; In Women: 3 or > Positive: 0 Screen Result (Pos requires Nsg. Audit-10AR): Negative In the last yr the pt used illegal drug/Rx for NonMed reason: No Score: Yes response is considered Positive: 0 Screen Result (Positive result requires Nsg. DAST-10): Negative Review of Systems - Review of Systems Comments:: GENERAL/CONSTITUTIONAL: No fever or chills. No weakness._ HEAD, EYES, EARS, NOSE AND THROAT: No change in vision. No change in hearing. No sore throat. Reports pain over bridge of nose. CARDIOVASCULAR: No chest pain or shortness of breath_ RESPIRATORY: Denies cough, hemoptysis_ GASTROINTESTINAL: No nausea, vomiting, diarrhea or constipation._ GENITOURINARY: No dysuria, frequency, or change in urination._ MUSCULOSKELETAL: No joint or muscle swelling or pain. No neck or back pain._ SKIN: No rash_ NEUROLOGIC: Reports headache. No vertigo, loss of consciousness, or change in strength/sensation._ ENDOCRINE: No increased thirst. No abnormal weight change_ HEMATOLOGIC/LYMPHATIC: No anemia, easy bleeding, or history of blood clots._ ALLERGIC/IMMUNOLOGIC: No hives or skin allergy._ *Physical Exam - Vital Signs Last Vital Signs Temp Pulse Resp BP Pulse Ox 98 F 51 L 18 132/60 100 01/02/20 18:37 01/02/20 18:37 01/02/20 18:37 01/02/20 18:37 01/02/20 18:37 - Physical Exam GENERAL: Awake, alert, and oriented to person/place/time, in no acute distress_ HEAD: Mild ecchymosis over anterior forehead. No racoon's eyes or forde signs. No step-off. EYES: PERRLA, EOMI, sclera anicteric, conjunctiva clear_ ENT: Hearing grossly normal, nares patent, oropharynx clear without exudates. No uvular deviation. Moist mucosa. Small 0.5 cm laceration over bridge of anterior nose with bleeding. No septal hematoma. No hemotympanum. No tongue lacerations or injury to the oral cavity. NECK: Normal ROM, supple, no lymphadenopathy, JVD, or masses. No c-spine TTP. BACK: No T-spine or L-spine TTP. LUNGS: No distress, speaks in full sentences, clear to auscultation bilaterally _ HEART: Regular rate and rhythm, normal S1 and S2, no murmurs appreciated, peripheral pulses normal and equal bilaterally._ ABDOMEN: Soft, nontender, normoactive bowel sounds. No guarding, no rebound. No masses_ EXTREMITIES: Normal inspection, Normal range of motion, no edema. No clubbing or cyanosis. No obvious deformities, tenderness, bruising. Pelvis stable. NEUROLOGICAL: Cranial nerves II through XII grossly intact. Normal speech, normal gait, no focal sensorimotor deficits _ SKIN: Warm, Dry, normal turgor, no rashes or lesions noted_ Procedures - Laceration/Wound Repair Anterior Nose Wound Length: to 2.5 cm Wound Explored: clean, no foreign body present Wound's Depth, Shape: superficial, irregular, flap Irrigated w/ Saline: Yes Betadine Prep: No Anesthesia: 1% Lidocaine Amount of Anesthetic (ccs): 1 Wound Debrided: minimal Wound Repaired With: Sutures Suture Size/Type: 5:0, other (polysorb) Number of Sutures: 3 Layer Closure: No Sterile Dressing Applied: Yes Splint Applied: No Sling Applied: No Progress: Verbal consent was obtained, and patient was provided with risks and alternatives to the procedure. Wound was copiously irrigated with NS, and anesthetized with 1 mL of lidocaine 1%. Wound carefully explored and no foreign body, tendon injury, or nonviable tissue were noted. Using sterile technique 5-0 polysorb suture was used to reapproximate the wound. 3 interrupted-sutures were placed. Patient tolerated procedure well, no complications. Patient advised to look for and return for any signs of infection such as redness, swelling, discharge, or worsening pain. ED Treatment Course - LABORATORY CBC & Chemistry Diagram: 01/02/20 19:47 01/02/20 19:47 Medical Decision Making - Medical Decision Making 01/02/20 19:29 79M multiple comorbidites presenting today s/p fall from standing. On eliquis. Denies LOC. No dizziness/heart palpitations/weakness prior to fall. -cbc, cmp -ekg, trop, cxr -CT head, neck, facial bones -coags -ancef -boostrix 01/02/20 21:03 CT head negative for acute intracranial pathology. CT neck negative for acute fracture or subluxation. CT facial bones shows comminuted anterior nasal bone fracture. EKG shows 50 bpm, sinus bradycardia 1st degree AV block, normal axis, no ST elevation/depression. 01/02/20 22:12 CXR negative for acute intrathoracic pathology. Labs reviewed. Laboratory Last Values WBC 6.4 K/mm3 (4.0-10.0) 01/02/20 19:47 RBC 2.92 M/mm3 (4.00-5.60) L 01/02/20 19:47 Hgb 10.2 GM/dL (11.7-16.9) L 01/02/20 19:47 Hct 30.0 % (35.4-49) L 01/02/20 19:47 MCV 102.7 fl (80-96) H 01/02/20 19:47 MCH 35.1 pg (25.7-33.7) H 01/02/20 19:47 MCHC 34.2 g/dl (32.0-35.9) 01/02/20 19:47 RDW 13.2 % (11.9-15.9) 01/02/20 19:47 Plt Count 180 K/MM3 (134-434) 01/02/20 19:47 MPV 8.5 fl (7.5-11.1) 01/02/20 19:47 Absolute Neuts (auto) 4.7 K/mm3 (1.5-8.0) 01/02/20 19:47 Neutrophils % 73.2 % (42.8-82.8) 01/02/20 19:47 Lymphocytes % 14.0 % (8-40) 01/02/20 19:47 Monocytes % 10.4 % (3.8-10.2) H 01/02/20 19:47 Eosinophils % 1.9 % (0-4.5) 01/02/20 19:47 Basophils % 0.5 % (0-2.0) 01/02/20 19:47 Nucleated RBC % 0 % (0-0) 01/02/20 19:47 PT with INR 19.00 SEC (9.7-13.0) H 01/02/20 19:47 INR 1.60 (0.83-1.09) H 01/02/20 19:47 PTT (Actin FS) 39.1 SECONDS (25.2-36.5) H 01/02/20 19:47 Sodium 140 mmol/L (136-145) 01/02/20 19:47 Potassium 4.7 mmol/L (3.5-5.1) 01/02/20 19:47 Chloride 109 mmol/L (98-107) H 01/02/20 19:47 Carbon Dioxide 26 mmol/L (21-32) 01/02/20 19:47 Anion Gap 5 MMOL/L (8-16) L 01/02/20 19:47 BUN 27.8 mg/dL (7-18) H 01/02/20 19:47 Creatinine 1.1 mg/dL (0.55-1.3) 01/02/20 19:47 Est GFR (CKD-EPI)AfAm 73.61 01/02/20 19:47 Est GFR (CKD-EPI)NonAf 63.51 01/02/20 19:47 Random Glucose 158 mg/dL (74-106) H 01/02/20 19:47 Calcium 8.7 mg/dL (8.5-10.1) 01/02/20 19:47 Total Bilirubin 0.3 mg/dL (0.2-1) 01/02/20 19:47 AST 18 U/L (15-37) 01/02/20 19:47 ALT 21 U/L (13-61) 01/02/20 19:47 Alkaline Phosphatase 184 U/L (45-117) H 01/02/20 19:47 Creatine Kinase 38 U/L (26-308) 01/02/20 19:47 Troponin I < 0.02 ng/ml (0.00-0.05) 01/02/20 19:47 Total Protein 6.0 g/dl (6.4-8.2) L 01/02/20 19:47 Albumin 3.2 g/dl (3.4-5.0) L 01/02/20 19:47 Pt reassessed. Able to ambulate with a steady gait. Laceration repaired. Plan to d/c home with ENT f/u 1 week. Strict nose care instructions given. All questions answered. Return precautions given. Pt verbalized understanding and agreement with plan. Discharge - Discharge Information Problems reviewed: Yes Clinical Impression/Diagnosis: Fractured nasal bones Fall Qualifiers: Encounter type: initial encounter Qualified Code(s): W19.XXXA - Unspecified fall, initial encounter Condition: Stable Disposition: HOME - Admission No - Follow up/Referral Referrals: Cash Acosta MD [Non Staff, Medical] - Valentin Begum MD [Staff Physician] - Hayden Decker MD [Staff Physician] - Manuel Linton MD [Non Staff, Medical] - Deni Maravilla [Staff Physician] - Venu Hurley MD [Staff Physician] - Diego Palacios MD [Staff Physician] - Tong Mederos MD [Staff Physician] - Iatlo Murphy MD [Staff Physician] - Alexander Vasques MD [Staff Physician] - - Patient Discharge Instructions Patient Printed Discharge Instructions: DI for Nose Fracture, DI for Laceration Repair -- Simple Additional Instructions: Your CT scan showed a broken nose. Please make a follow up appointment with an ENT specialist within the next week. Multiple referrals have been provided. Please do not blow your nose. Please make a follow up appointment with your primary care doctor. If you experience any new, worsening, or concerning symptoms, including difficulty breathing, nose bleed, lethargy, difficulty concentrating, frequent falls, chest pain, shortness of breath, or any other concerns, please return to the emergency department. - Post Discharge Activity
[2020-01-02] MEDS ORDERED: ACETAMINOPHEN 1000 MG/100 ML VIAL (NON FORMULARY) IVPB ONE (19:29)
[2020-01-02] MEDS ORDERED: ACETAMINOPHEN INJECTION 100 ML IVPB ONE (19:37)
[2020-01-02] MEDS ORDERED: DIPHTH,PERTUSS(ACELL),TET 0.5 ML DISP.SYRIN IM ONE ×2 (20:12→20:13)
[2020-01-02] MEDS ORDERED: CEFAZOLIN 1 GM/D5W 1 GM/50 ML BAG ONE (20:17)
[2020-01-02 20:21] LABS: BASO % 0.5 % (0-2.0); EOS % 1.9 % (0-4.5); HEMOGLOBIN 10.2 GM/dL (11.7-16.9); MCH 35.1 pg (25.7-33.7); MCHC 34.2 g/dl (32.0-35.9); MEAN CELL VOLUME 102.7 fl (80-96); MEAN PLT VOLUME 8.5 fl (7.5-11.1); MONO % 10.4 % (3.8-10.2); NEUT % 73.2 % (42.8-82.8); PLATELET COUNT 180 K/MM3 (134-434); RBC 2.92 M/mm3 (4.00-5.60); RDW 13.2 % (11.9-15.9); WHITE BLOOD COUNT 6.4 K/mm3 (4.0-10.0)
[2020-01-02 20:28] LABS: INR 1.6 (0.83-1.09)
[2020-01-02 20:30] LABS: ACTIVATED PTT 39.1 SECONDS (25.2-36.5)
[2020-01-02] MEDS ORDERED: CEFAZOLIN 1 GM in DEXTROSE 5%-WATER - 50 ML IVPB ONE (20:48)
[2020-01-02 21:09] LABS: ALBUMIN 3.2 g/dl (3.4-5.0); ALK PHOS 184 U/L (45-117); ANION GAP 5 MMOL/L (8-16); BILIRUBIN,TOTAL 0.3 mg/dL (0.2-1); BLOOD UREA NITROGEN 27.8 mg/dL (7-18); CALCIUM 8.7 mg/dL (8.5-10.1); CHLORIDE 109 mmol/L (98-107); CO2 26 mmol/L (21-32); CREATININE 1.1 mg/dL (0.55-1.3); GLUCOSE,RANDOM 158 mg/dL (74-106); POTASSIUM 4.7 mmol/L (3.5-5.1); SGOT/AST 18 U/L (15-37); SGPT/ALT 21 U/L (13-61); SODIUM 140 mmol/L (136-145)
--- NOTE | 2020-01-02 21:51 | PDOC ---
Documentation entered by Elissa Ramachandran SCRIBE, acting as scribe for Tammy Machado MD. Tammy Machado MD: This documentation has been prepared by the cristelaibeDuarte Sydney, SCRIBE, under my direction and personally reviewed by me in its entirety. I confirm that the documentation accurately reflects all work, treatment, procedures, and medical decision making performed by me. Attending Attestation - Resident Resident Name: CampbellMichael - ED Attending Attestation I have performed the following: I have examined & evaluated the patient, The case was reviewed & discussed with the resident, I agree w/resident's findings & plan, Exceptions are as noted - HPI HPI: 01/02/20 19:43 Patient is a 79 year old male with a significant past medical history of pancreatic CA (s/p whipple 02/2019), Afib, CAD, CHF, HTN, HLD, PVD, CABG, stents x2 in BLE and cardiac stents x2, prostate CA, BPH, OA who presents to the ED s/p fall. As per patient, he was watering plants earlier today when he stepped off the sidewalk, felt weakness in his legs, and fell forward. Patient reports landing on his face on the ground. Patient denies loss of consciousness or any recent falls or traumas. Denies headache, fever, chills, shortness of breath, chest pain, abdominal pain, nausea, vomiting, diarrhea, or urinary changes. Allergies: As per Nurse notes PCP: Dr. Taylor - Physicial Exam PE: 01/02/20 20:57 GENERAL: Well-appearing, well-nourished. No apparent distress. HEENT: Normocephalic, atraumatic. PERRL, EOM intact. CARDIOVASCULAR: +bradycardic Normal S1, S2. Regular rhythm. PULMONARY: Clear to auscultation bilaterally. ABDOMEN: Soft, non-distended, non-tender. EXTREMITIES: Normal ROM in all four extremities. No gross deformities. SKIN: +2.5 in circular bruise on R wrist on the dorsal aspect; 1.5 in circular bruise on R lateral elbow; 1 cm open laceration on bridge of his nose; 3 in abrasion in center of the forehead Warm, dry. No rash NEUROLOGICAL: No focal neurological deficits. - Medical Decision Making 01/02/20 20:31 Labs are normal. 01/02/20 20:31 EKG same as old Pt fell in the garden and struck his bridge of his nose. States that he tripped in the garden. boostrix tetanus given and 1g Ancef given 01/02/20 21:50 Patient Name: LYLE ANSARI THIS IS A PRELIMINARY REPORT FROM [facility] EXAM: CT head without contrast and CT face without contrast IMAGES: 265 DATE OF EXAM: 2020-01-02 19:57:24 REASON FOR EXAM: Fall COMPARISON: None. FINDINGS: CT head: There is cerebral atrophy. Chronic microvascular ischemic changes are noted. Chronic left cerebellar CVA. No acute intracranial hemorrhage or acute infarction. CT face:*Comminuted anterior nasal bone fracture with minimally displaced fragments. Adjacent soft tissue edema and soft tissue gas. Other maxillofacial bones appear intact. No acute intraorbital injury. Small polyp or cyst in the left maxillary antrum. 01/02/20 21:51 Patient Name: LYLE ANSARI THIS IS A PRELIMINARY REPORT FROM [facility] DATE OF SERVICE:2020-01-02 19:53:26 IMAGES: 606 EXAM: CT cervical spine without contrast HISTORY:FALL COMPARISON: None. FINDINGS: Cervical spine demonstrates normal alignment. Moderate degenerative changes noted. No acute cervical spine fracture or dislocation. Small polyp or cyst in left maxillary antrum. 01/02/20 22:45 Normal exam; normal labs and pt has only nasal bone fracture. Pt will follow with PMD Stable to go home. Discharge - Discharge Information Problems reviewed: Yes Clinical Impression/Diagnosis: Fractured nasal bones Fall Qualifiers: Encounter type: initial encounter Qualified Code(s): W19.XXXA - Unspecified fall, initial encounter Condition: Stable Disposition: HOME - Follow up/Referral Referrals: Cash Acosta MD [Non Staff, Medical] - Hayden Decker MD [Staff Physician] - Manuel Linton MD [Non Staff, Medical] - Deni Maravilla [Staff Physician] - Venu Hurley MD [Staff Physician] - Diego Palacios MD [Staff Physician] - Tong Mederos MD [Staff Physician] - Valentin Begum MD [Staff Physician] - Italo Murphy MD [Staff Physician] - Alexander Vasques MD [Staff Physician] - - Patient Discharge Instructions Patient Printed Discharge Instructions: DI for Nose Fracture, DI for Laceration Repair -- Simple Additional Instructions: Your CT scan showed a broken nose. Please make a follow up appointment with an ENT specialist within the next week. Multiple referrals have been provided. Please do not blow your nose. Please make a follow up appointment with your primary care doctor. If you experience any new, worsening, or concerning symptoms, including difficulty breathing, nose bleed, lethargy, difficulty concentrating, frequent falls, chest pain, shortness of breath, or any other concerns, please return to the emergency department. - Post Discharge Activity
--- NOTE | 2020-01-03 10:39 | EKG ---
Test Reason : Blood Pressure : / mmHG Vent. Rate : 050 BPM Atrial Rate : 050 BPM P-R Int : 246 ms QRS Dur : 130 ms QT Int : 520 ms P-R-T Axes : 078 059 103 degrees QTc Int : 474 ms SINUS BRADYCARDIA WITH 1ST DEGREE A-V BLOCK WITH PREMATURE ATRIAL COMPLEXES IN A PATTERN OF BIGEMINY NON-SPECIFIC INTRA-VENTRICULAR CONDUCTION BLOCK ABNORMAL ECG WHEN COMPARED WITH ECG OF 09-JUL-2019 17:31, PREMATURE ATRIAL COMPLEXES ARE NOW PRESENT Confirmed by VIRY TRIANA MD ([id number]) on 01/03/2020 10:39:29 AM Referred By: Confirmed By:VIRY TRIANA MD
== END 2020-01-02 22:33 | disposition home or self-care (01) ==
LOC: JER 18:21
PROC: 3E03329 Introduction of Other Anti-infective into Peripheral Vein, Percutaneous Approach (ICD-10-PCS; principal; 2020-01-02)
PROC: 3E033GC Introduction of Other Therapeutic Substance into Peripheral Vein, Percutaneous Approach (ICD-10-PCS; 2020-01-02)
PROC: 3E0234Z Introduction of Serum, Toxoid and Vaccine into Muscle, Percutaneous Approach (ICD-10-PCS; 2020-01-02)
DX: S02.2XXA Fracture of nasal bones, initial encounter for closed fracture (principal); S01.21XA Laceration without foreign body of nose, initial encounter
CPT/HCPCS: 36415; 70450-TC; 70486-TC; 71045-TC-FY; 72125-TC; 80053; 82550; 84484; 85025; 85610; 85730; 90715; 93005; 93010; 99285-25; J0131

== ENCOUNTER 2020-02-13 09:32 | Inpatient (IN) | payer OTHER, MEDICARE ==
--- OUTSIDE RECORDS SUMMARY | 2020-02-13 09:47 | XMS ---
:1940 Author Organization [facility] Support Name Relationship Address Phone RE, RETIRED Unavailable Unavailable Unavailable RE Unavailable Unavailable Unavailable ANA ANSARI [id number] [place] [address] ANA ANSARI Spouse [address] [place] [address] Re-disclosure Warning The records that you are about to access may contain information from federally- assisted alcohol or drug abuse programs. If such information is present, then the following federally mandated warning applies: This information has been disclosed to you from records protected by federal confidentiality rules (42 CFR part 2). The federal rules prohibit you from making any further disclosure of this information unless further disclosure is expressly permitted by the written consent of the person to whom it pertains or as otherwise permitted by 42 CFR part 2. A general authorization for the release of medical or other information is NOT sufficient for this purpose. The Federal rules restrict any use of the information to criminally investigate or prosecute any alcohol or drug abuse patient.The records that you are about to access may contain highly sensitive health information, the redisclosure of which is protected by Article 27-F of the [facility] Public Health law. If you continue you may haveaccess to information: Regarding HIV / AIDS; Provided by facilities licensed or operated by the [facility] Office of Mental Health; or Provided by the [facility] Office for People With Developmental Disabilities. If such information is present, then the following [facility] mandated warning applies: This information has been disclosed to you from confidential records which are protected by state law. State law prohibits you from making any further disclosure of this information without the specific written consent of the person to whom it pertains, or as otherwise permitted by law. Any unauthorized further disclosure in violation of state law may result in a fine or detention sentence or both. A general authorization for the release of medical or other information is NOT sufficient authorization for further disclosure. Insurance Providers Payer name Policy type Policy ID Covered Covered alliance party's Policy P [place] / Coverage alliance party ID relationship to [place] ormation type [place] MEDICARE [id number] SP [id number] [facility] [id number] CARE [employer] MEDICARE [id number] SP [id number] MEDICARE [id number] SP [id number] A Results ID Date Data Source [id number] 12/28/2019 08:45:00 PM EDT [facility] Name Value Range Interpretation Code Description Data Seema rce(s) Supporting Document(s ) COV2 [facility] This lab was ordered by [employer] [facility] and reported by [facility]. ID Date Data Source [id number] 09/05/2019 06:00:00 PM EDT [facility] Name Value Range Interpretation Code Description Data Seema rce(s) Supporting Document(s ) COV2 [facility] This lab was ordered by [facility] and reported by [facility]. Procedure
[2020-02-13] MEDS ORDERED: ASPIRIN 81 MG CHEWABLE TABLETS PO ONE (10:38)
--- NOTE | 2020-02-13 10:46 | PDOC ---
History of Present Illness - General Chief Complaint: Chest Pain Stated Complaint: CHEST PAIN Time Seen by Provider: 02/13/20 09:56 - History of Present Illness Initial Comments: 02/13/20 10:42 79 y/o male with PMH significant for pancreatic CA s/p whipple 02/2019, a-fib, CAD, CHF, HTN, HLD, PVD, CABG, stents x2 in BLE and cardiac stents x2, prostate CA, BPH, OA, presents to the ED with 2 wks of left sided chest pain. He desc ribes the pain as dull in nature about 6/10 in severity. Pain has been constant, and has not been relieved with his nitro medication. Pain is non-radiating. He denies any shortness of breath, hx of p.embolism, cough, chills, fever, nausea, vomiting, diaphoresis, leg swelling. PMHx: as noted above ROS: as noted Allergies: contrast (erythmema) ROS: GENERAL/CONSTITUTIONAL: No fever or chills. No weakness. HEAD, EYES, EARS, NOSE AND THROAT: No change in vision. No ear pain or discharge. No sore throat. CARDIOVASCULAR: No chest pain or shortness of breath RESPIRATORY: No cough, wheezing, or hemoptysis. GASTROINTESTINAL: No nausea, vomiting, diarrhea or constipation. GENITOURINARY: No dysuria, frequency, or change in urination. MUSCULOSKELETAL: No joint or muscle swelling or pain. No neck or back pain. SKIN: No rash NEUROLOGIC: No headache, vertigo, loss of consciousness, or change in strength/sensation. ENDOCRINE: No increased thirst. No abnormal weight change HEMATOLOGIC/LYMPHATIC: No anemia, easy bleeding, or history of blood clots. ALLERGIC/IMMUNOLOGIC: No hives or skin allergy. PE: GENERAL: Awake, alert, and fully oriented, in no acute distress HEAD: No signs of trauma, normocephalic, atraumatic EYES: EOMI, sclera anicteric, conjunctiva clear ENT: Auricles normal inspection, hearing grossly normal, nares patent, oropharynx clear without exudates. Moist mucosa NECK: Normal ROM, supple, no lymphadenopathy, JVD, or masses LUNGS: No distress, speaks full sentences, clear to auscultation bilaterally HEART:bradycardia, no murmurs, rubs or gallops. ABDOMEN: Soft, nontender, normoactive bowel sounds. No guarding, no rebound. No masses EXTREMITIES : Normal inspection, Normal range of motion, no edema. No clubbing or cyanosis NEUROLOGICAL: Cranial nerves II through XII grossly intact. Normal speech, no focal sensorimotor deficits SKIN: Warm, Dry, normal turgor, no rashes or lesions noted 02/13/20 10:46 MDM ddx: acs, pneumonia, p.e, workup: cbc, cmp, cardiac profile, ekg, chest x-ray, meds: aspirin 324 EKG: sinus bradycardia with first degree av block. same as previoius EKG hr 48, pr 242, qrs 128, qtc, 446, 02/13/20 12:09 pt has a heart score of 6. covering for giuseppe agrees with admission plan was on warfarin but had it stopped due to rectal bleeding. 02/13/20 12:11 02/13/20 12:14 Dr. Jose Goldberg's service contacted for admission 02/13/20 13:12 pt persistently bradycardic in ED, dropping down into the thirties. other vital signs stable pt is NAD Dr. Mata consulted will see patient, recomends checking electrolytes and TSH pacer pads placed on the patient. 02/13/20 13:16 will admit for further managment. Past History - Medical History Allergies/Adverse Reactions: Allergies Allergy/AdvReac Type Severity Reaction Status Date / Time strawberry Allergy Severe Swelling Verified 02/13/20 09:42 pepper (genus Capsicum) Allergy Unknown Verified 02/13/20 09:42 black pepper Allergy Verified 02/13/20 09:42 iohexol [From Omnipaque] Allergy Rash Verified 02/13/20 09:42 Iodinated Contrast Media AdvReac Rash Verified 02/13/20 09:42 red pepper Allergy Uncoded 02/13/20 09:42 Home Medications: Ambulatory Orders Folic Acid 1 mg PO DAILY 11/04/16 Allopurinol [Zyloprim -] 100 mg PO DAILY 09/04/18 Lisinopril [Zestril] 5 mg PO DAILY 09/04/18 Tramadol HCl 50 mg PO ASDIR PRN 09/04/18 Isosorbide Mononitrate [Isosorbide Mononitrate ER] 60 mg PO HS 10/12/18 Apixaban [Eliquis] 5 mg PO BID 01/11/19 Atorvastatin Calcium 40 mg PO HS 01/11/19 Ranolazine [Ranexa] 500 mg PO BID 01/11/19 Pantoprazole Sodium [Protonix -] 40 mg PO DAILY 06/17/19 Aspirin 81 mg PO DAILY 02/13/20 Furosemide [Lasix] 20 mg PO DAILY 02/13/20 Nitroglycerin 0.4 mg SL PRN 02/13/20 Polyethylene Glycol 3350 [Miralax 119 gm Btl -] 17 gm PO DAILY 02/13/20 Potassium Chloride 10 meq PO DAILY 02/13/20 Sennosides [Senna -] 2 tab PO HS #30 tablet 02/15/20 Simethicone [Mylicon -] 80 mg PO Q4H PRN #30 tab.chew 02/15/20 Anemia: No Asthma: No Cancer: Yes (PROSTATE CANCER 2011) Cardiac Disorders: Yes (coronary artery disease, cardiac bypass 10 years ago, Afib) CVA: No COPD: No CHF: Yes Dementia: No Diabetes: No GI Disorders: No Disorders: Yes (STONES) HTN: Yes Hypercholesterolemia: Yes Kidney Stones: Yes Liver Disease: No Seizures: No Thyroid Disease: No - Surgical History Abdominal Surgery: Yes (whipple) Appendectomy: No Cardiac Surgery: Yes (open heart, 2 stents) Cholecystectomy: No Lung Surgery: No Neurologic Surgery: No Orthopedic Surgery: No - Immunization History Immunization Up to Date: Yes - Psycho-Social/Smoking History Smoking Status: Yes Smoking History: Former smoker Have you smoked in the past 12 months: No Number of Cigarettes Smoked Daily: 0 If you are a former smoker, when did you quit?: 2002 Cigars Per Day: 0 Information on smoking cessation initiated: No 'Breaking Loose' booklet given: 11/10/17 *Physical Exam - Vital Signs Last Vital Signs Temp Pulse Resp BP Pulse Ox 98.1 F 42 L 18 144/44 L 100 02/13/20 09:35 02/13/20 09:35 02/13/20 09:35 02/13/20 09:35 02/13/20 09:45 Heart Score/ECG Review - History History: Moderately suspicious - Electrocardiogram EKG: Non specific repolarization disturbance - Age Age: >/= 65 - Risk Factors Risk Factors Heart Score: Yes Hx Hypercholesterolemia, Yes Hx Hypertension Based on the list above the patient has:: >/=3 risk factors or Hx atherosclerotic disease - Troponin Troponin: </= normal limit - Score Heart Score - Total: 6 ED Treatment Course - LABORATORY CBC & Chemistry Diagram: 02/14/20 05:46 02/14/20 05:46 Discharge - Discharge Information Problems reviewed: Yes Clinical Impression/Diagnosis: Bradycardia, Chest pain Condition: Stable Disposition: HOME - Follow up/Referral - Patient Discharge Instructions - Post Discharge Activity
[2020-02-13 10:47] LABS: BASO % 0.8 % (0-2.0); EOS % 3.6 % (0-4.5); HEMATOCRIT 31.6 % (35.4-49); HEMOGLOBIN 10.8 GM/dL (11.7-16.9); LYMPH % 16.5 % (8-40); MCHC 34.2 g/dl (32.0-35.9); MEAN CELL VOLUME 102.3 fl (80-96); MEAN PLT VOLUME 8.4 fl (7.5-11.1); MONO % 13.1 % (3.8-10.2); PLATELET COUNT 189 K/MM3 (134-434); RBC 3.09 M/mm3 (4.00-5.60); RDW 13.3 % (11.9-15.9); WHITE BLOOD COUNT 5.5 K/mm3 (4.0-10.0)
[2020-02-13] MEDS ORDERED: ASPIRIN 81 MG CHEWABLE TABLETS ONE (10:47)
[2020-02-13 10:55] LABS: INR 1.68 (0.83-1.09)
[2020-02-13 11:04] LABS: CHLORIDE 108 mmol/L (98-107); POTASSIUM 4.5 mmol/L (3.5-5.1); SODIUM 138 mmol/L (136-145)
[2020-02-13 11:06] LABS: ALBUMIN 3.2 g/dl (3.4-5.0); CALCIUM 8.8 mg/dL (8.5-10.1)
[2020-02-13 11:07] LABS: ANION GAP 5 MMOL/L (8-16); BLOOD UREA NITROGEN 23.7 mg/dL (7-18); CO2 25 mmol/L (21-32); GLUCOSE,RANDOM 118 mg/dL (74-106)
[2020-02-13 11:09] LABS: SGPT/ALT 24 U/L (13-61)
[2020-02-13 11:10] LABS: SGOT/AST 21 U/L (15-37)
[2020-02-13 11:11] LABS: BILIRUBIN,TOTAL 0.5 mg/dL (0.2-1)
[2020-02-13 11:12] LABS: ALK PHOS 192 U/L (45-117)
--- NOTE | 2020-02-13 11:40 | PDOC ---
Documentation entered by Elissa Ramachandran SCRIBE, acting as scribe for Katerine Benítez MD. Katerine Benítez MD: This documentation has been prepared by the margreteDuarte Sydney, SCRIBE, under my direction and personally reviewed by me in its entirety. I confirm that the documentation accurately reflects all work, treatment, procedures, and medical decision making performed by me. Attending Attestation - Resident Resident Name: Thao Mccarthy - ED Attending Attestation I have performed the following: I have examined & evaluated the patient, The case was reviewed & discussed with the resident, I agree w/resident's findings & plan, Exceptions are as noted - HPI HPI: 02/13/20 10:48 Patient is a 80 year old female with a significant past medical history of pancreatic CA (s/p whipple 02/2019), Afib, CAD, CHF, HTN, HLD, PVD, CABG, stents x2 in BLE and cardiac stents x2, prostate CA, BPH, OA,who presents to the ED with two weeks of worsening left sided chest pain. As per patient, his 6/10 pain is dull, constant, and non-radiating. He notes his note is not alleviated with his nitro medication. Denies headache, fever, chills, shortness of breath, abdominal pain, nausea, vomiting, diarrhea, or urinary changes. Allergies: As per Nurse notes PCP: Dr. Pham - Physicial Exam PE: GENERAL: Awake, alert, and fully oriented, in no acute distress HEAD: No signs of trauma EYES: PERRLA, EOMI, sclera anicteric, conjunctiva clear ENT: Auricles normal inspection, hearing grossly normal, nares patent, oropharynx clear without exudates. Moist mucosa NECK: Normal ROM, supple, no lymphadenopathy, JVD, or masses LUNGS: Breath sounds equal, clear to auscultation bilaterally. No wheezes, and no crackles HEART: Bradycardic with regular rhythm, normal S1 and S2, no murmurs, rubs or gallops ABDOMEN: Soft, nontender, normoactive bowel sounds. No guarding, no rebound. No masses EXTREMITIES: Normal range of motion, no edema. No clubbing or cyanosis. No cords, erythema, or tenderness NEUROLOGICAL: Cranial nerves II through XII grossly intact. Normal speech. Motor and sensation intact SKIN: Warm, dry, normal turgor, no rashes or lesions noted. - Medical Decision Making Pt with episodes of bradycardia into the 40s, periodic sinus pauses on the monitor. In light of his significant cardiac history, will plan for admission. Discharge - Discharge Information Problems reviewed: Yes Clinical Impression/Diagnosis: Bradycardia, Chest pain - Follow up/Referral - Patient Discharge Instructions - Post Discharge Activity
--- NOTE | 2020-02-13 12:37 | HP ---
Admitting History and Physical - Primary Care Physician PCP: Samantha Pham - Admission History of Present Illness: 79 y/o male with PMH significant for pancreatic CA s/p whipple 02/2019, a-fib, CAD, CHF, HTN, HLD, PVD, CABG, stents x2 in BLE and cardiac stents x2, prostate CA, BPH, OA, presents to the ED with 2 wks of left sided chest pain. He describes the pain as dull in nature about 6/10 in severity. Pain has been constant, and has not been relieved with his nitro medication. Pain is non- radiating. He denies any shortness of breath, hx of p.embolism, cough, chills, fever, nausea, vomiting, diaphoresis, leg swelling. PMHx: as noted above ROS: as noted Allergies: contrast (erythmema) Pt seen in er Case d/w er Resident/ Physician Markus Not on BB Awake/ comfortable Limitations to Obtaining History: No Limitations - Past Medical History Cardiovascular: Yes: AFIB, CAD, CHF, HTN, Hyperlipdemia, Other (PVD, CAD, Coronary Bypass, CAD, Stent lower left leg) Gastrointestinal: Yes: GERD, Other (S/p whipples procedure) Hepatobiliary: Yes: Other (dilated CBD ? etiology) Renal/: Yes: BPH (had laser TURB following the RT), Cancer (prostate cancer treated with RT seeds and ext. beam), Renal Calculi, Other (urethral stricture dilated in the past and culminating in urosepsis) Heme/Onc: Yes: Anemia, Cancer Psych: Yes: Anxiety Musculoskeletal: Yes: Osteoarthritis (Chronic Lower back pain) Rheumatology: Yes: Gout - Past Surgical History Past Surgical History: Yes: CABG, Stent (stents, both cardiac and LLE) - Smoking History Smoking history: Former smoker Have you smoked in the past 12 months: No Aproximately how many cigarettes per day: 0 If you are a former smoker, when did you quit?: 2002 - Alcohol/Substance Use Hx Alcohol Use: No History of Substance Use: reports: None - Social History ADL: Independent 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 History of Recent Travel: No Home Medications - Allergies Allergies/Adverse Reactions: Allergies Allergy/AdvReac Type Severity Reaction Status Date / Time strawberry Allergy Severe Swelling Verified 02/13/20 09:42 pepper (genus Capsicum) Allergy Unknown Verified 02/13/20 09:42 black pepper Allergy Verified 02/13/20 09:42 iohexol [From Omnipaque] Allergy Rash Verified 02/13/20 09:42 Iodinated Contrast Media AdvReac Rash Verified 02/13/20 09:42 red pepper Allergy Uncoded 02/13/20 09:42 - Home Medications Home Medications: Ambulatory Orders Folic Acid 1 mg PO DAILY 11/04/16 Allopurinol [Zyloprim -] 100 mg PO DAILY 09/04/18 Lisinopril [Zestril] 5 mg PO DAILY 09/04/18 Tramadol HCl 50 mg PO ASDIR PRN 09/04/18 Isosorbide Mononitrate [Isosorbide Mononitrate ER] 60 mg PO HS 10/12/18 Apixaban [Eliquis] 5 mg PO BID 01/11/19 Atorvastatin Calcium 40 mg PO HS 01/11/19 Ranolazine [Ranexa] 500 mg PO BID 01/11/19 Pantoprazole Sodium [Protonix -] 40 mg PO DAILY 06/17/19 Aspirin 81 mg PO DAILY 02/13/20 Furosemide [Lasix] 20 mg PO DAILY 02/13/20 Nitroglycerin 0.4 mg SL PRN 02/13/20 Polyethylene Glycol 3350 [Miralax (For Daily Use) -] 17 gm PO DAILY 02/13/20 Potassium Chloride 10 meq PO DAILY 02/13/20 Family Medical History Family Hx Cancer: Father ( 72 Hodgkins Lymphoma), Brother ( of prostate cancer) Review of Systems - Review of Systems Constitutional: reports: No Symptoms Eyes: reports: No Symptoms Neck: reports: No Symptoms Cardiovascular: reports: Chest Pain, Shortness of Breath Respiratory: reports: SOB. denies: No Symptoms Gastrointestinal: reports: No Symptoms Genitourinary: reports: No Symptoms Neurological: reports: No Symptoms Psychiatric: reports: No Symptoms Physical Examination Vital Signs: Vital Signs Temperature 98.1 F 02/13/20 09:35 Pulse Rate 42 L 02/13/20 09:35 Respiratory Rate 18 02/13/20 09:35 Blood Pressure 144/44 L 02/13/20 09:35 O2 Sat by Pulse Oximetry (%) 100 02/13/20 09:45 Constitutional: Yes: No Distress, Calm Eyes: Yes: Conjunctiva Clear Neck: Yes: Supple Cardiovascular: Yes: Bradycardia, Pulse Irregular Respiratory: Yes: CTA Bilaterally Gastrointestinal: Yes: Soft Edema: No Neurological: Yes: Alert Psychiatric: Yes: Alert Labs: CBC, BMP 02/13/20 10:25 02/13/20 10:25 Imaging - Results Chest X-ray: Report Reviewed Problem List - Problems (1) Chest pain Code(s): R07.9 - CHEST PAIN, UNSPECIFIED (2) Bradycardia Code(s): R00.1 - BRADYCARDIA, UNSPECIFIED (3) Hx of CABG Code(s): Z95.1 - PRESENCE OF AORTOCORONARY BYPASS GRAFT (4) Pancreatic cancer Code(s): C25.9 - MALIGNANT NEOPLASM OF PANCREAS, UNSPECIFIED (5) Paroxysmal atrial fibrillation Code(s): I48.0 - PAROXYSMAL ATRIAL FIBRILLATION Assessment/Plan Monitor on tele orders written Not on BB check tfts/ lyme titres may need PPM d/w Dr. Mata also-- He will follow Condition gaurded but stable will follow d/w pt and pts also who is at bedside
--- OUTSIDE RECORDS SUMMARY | 2020-02-13 13:02 | XMS ---
:1940 Author Organization [facility] Support Name Relationship Address Phone ANTON ANSARI [id number] [place] [address] RE, RETIRED Unavailable Unavailable Unavailable RE Unavailable Unavailable Unavailable ANA ANSARI [address] [place] [address] ANA ANSARI Spouse [address] [place] [address] Re-disclosure Warning The records that you are [...] is protected by Article 27-F of the [facility] Public Health law. If you continue you may haveaccess to information: Regarding HIV / AIDS; Provided by facilities licensed or operated by the [facility] Office of Mental Health; or Provided by the [facility] Office for People With Developmental Disabilities. If such information is present, then the following [facility] mandated warning applies: This information has [...] law may result in a fine or skilled nursing sentence or both. A general authorization for the release of medical or other information is NOT sufficient authorization for further disclosure. Insurance Providers Payer name Policy type Policy ID Covered Covered green party's Policy P a[place] / Coverage green party ID relationship to [employer] [facility] type [place] MEDICARE [id number] SP [id number] [employer] [facility] [id number] SP [id number] CARE [employer] MEDICARE [id number] SP [id number] MEDICARE [id number] A Results ID Date Data Source [id number] 12/28/2019 08:45:00 PM EDT [facility] Name Value Range Interpretation Code Description Data Seema rce(s) Supporting Document(s ) COV2 [facility] This lab was ordered by [facility] and reported by [employer]. ID Date Data Source [id number] 09/05/2019 06:00:00 PM EDT [facility] Name Value Range Interpretation Code Description Data Seema rce(s) Supporting Document(s ) COV2 [facility] This lab was ordered by [facility] and reported by [facility] - basno. Procedure
[2020-02-13 15:40] VITALS: BMI 24.8
[2020-02-13] MEDS: RANOLAZINE E.R. 500 MG TABLET (FP) PO SCH (21:06)
[2020-02-13] MEDS: ISOSORBIDE MONONITRATE 60 MG TAB.SR.24H (FP) PO SCH (21:06)
[2020-02-13] MEDS: APIXABAN 5 MG TABLET PO SCH (21:06)
[2020-02-13] MEDS: ACETAMINOPHEN 325 MG TABLET (FP) PO PRN (21:07)
[2020-02-13] MEDS: ATORVASTATIN CA 40 MG TABLET (FP) PO SCH (21:07)
--- NOTE | 2020-02-13 21:10 | CON.CARD ---
Consult Consult Specialty:: cardiology Reason for Consultation:: chest pain - History of Present Illness Chief Complaint: break off worker&Ox3; anxious; chest pain intermittently for the past indra ral days History of Present Illness: Mr. Waddell is a 79 yr old white man (b. Francoise) with PMHx of CAD s/p CABG and coronary stents (latest coronary angiogram, 10/[address] [facility]: no PCI required), PAF (on metoprolol and Eliquis), prostate CA, pancreatic (ampulla) CA s/p Whipple's procedure, anemia, hypertension, hyperlipidemia, GERD, hx urinary retention/UTI-->prolonged hospitalization; gout, overweight, relatively sedentary, admitted 06/2019 with nausea, vomiting, diarrhea, and chest pain in the setting of recent IV chemotherapy, and now presents to ER with similar symptoms that began again a few days ago. On that admission, he had been on metoprolol 12.5 mg bid, and was found to be markedly bradycardic (EKG noted sinus bradycardia, 1st degree AVB, HR 37 bpm), and was given IV atropine, then IV glucagon. HR in ER increased to 45-50 bpm. He is noted again to be in bradycardia (AF with slow VR, with HR in high 30s bpm and pauses of 2-3 seconds) He denies dizziness, palpitations. Pt has had similar previous episodes of N&V and diarrhea, and says chemotherapy was postponed after the last event. 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 - History Source History Provided By: Patient, Medical Record Limitations to Obtaining History: No Limitations - Past Medical History Cardio/Vascular: Yes: AFIB, CAD, CHF (systolic/diastolic), HTN, Hyperlipdemia, Other (PVD, CAD, Coronary Bypass, CAD, Stent lower left leg) Gastrointestinal: Yes: GERD, Other (S/p whipples procedure) Hepatobiliary: Yes: Other (dilated CBD ? etiology) Renal/: Yes: BPH (had laser TURB following the RT), Cancer (prostate cancer treated with RT seeds and ext. beam), Renal Calculi, Other (urethral stricture dilated in the past and culminating in urosepsis) Psych: Yes: Anxiety Musculoskeletal: Yes: Osteoarthritis (Chronic Lower back pain) Rheumatology: Yes: Gout - Past Surgical History Past Surgical History: Yes: CABG, Stent (stents, both cardiac and LLE) Additional Surgical History: Whipple's procedure - Alcohol/Substance Use Hx Alcohol Use: No History of Substance Use: reports: None - Smoking History Smoking history: Former smoker Have you smoked in the past 12 months: No Aproximately how many cigarettes per day: 0 If you are a former smoker, when did you quit?: 2002 - Social History Usual Living Arrangement: With Spouse ADL: Independent 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 History of Recent Travel: No Home Medications - Allergies Allergies/Adverse Reactions: Allergies Allergy/AdvReac Type Severity Reaction Status Date / Time strawberry Allergy Severe Swelling Verified 02/13/20 09:42 pepper (genus Capsicum) Allergy Unknown Verified 02/13/20 09:42 black pepper Allergy Verified 02/13/20 09:42 iohexol [From Omnipaque] Allergy Rash Verified 02/13/20 09:42 Iodinated Contrast Media AdvReac Rash Verified 02/13/20 09:42 red pepper Allergy Uncoded 02/13/20 09:42 - Home Medications Home Medications: Ambulatory Orders RX: Folic Acid 1 mg PO DAILY 11/04/16 RX: Allopurinol [Zyloprim -] 100 mg PO DAILY 09/04/18 RX: Lisinopril [Zestril] 5 mg PO DAILY 09/04/18 RX: Tramadol HCl 50 mg PO ASDIR PRN 09/04/18 RX: Isosorbide Mononitrate [Isosorbide Mononitrate ER] 60 mg PO HS 10/12/18 RX: Apixaban [Eliquis] 5 mg PO BID 01/11/19 RX: Atorvastatin Calcium 40 mg PO HS 01/11/19 RX: Ranolazine [Ranexa] 500 mg PO BID 01/11/19 RX: Pantoprazole Sodium [Protonix -] 40 mg PO DAILY 06/17/19 Furosemide [Lasix] 20 mg PO DAILY 02/13/20 Polyethylene Glycol 3350 [Miralax (For Daily Use) -] 17 gm PO DAILY 10/25/20 RX: Aspirin 81 mg PO DAILY 02/13/20 RX: Nitroglycerin 0.4 mg SL PRN 02/13/20 RX: Potassium Chloride 10 meq PO DAILY 02/13/20 Family Medical History Family Hx Cancer: Father ( 72 Hodgkins Lymphoma), Brother ( of prostate cancer) Review of Systems - Review of Systems Constitutional: reports: Weakness Eyes: reports: No Symptoms HENT: reports: No Symptoms Neck: reports: No Symptoms Cardiovascular: reports: Chest Pain Respiratory: reports: Exercise Intolerance, SOB on Exertion Gastrointestinal: denies: Abdominal Pain Genitourinary: reports: No Symptoms Breasts: reports: No Symptoms Reported Musculoskeletal: reports: Muscle Weakness Neurological: reports: Weakness Endocrine: reports: No Symptoms Hematology/Lymphatic: reports: No Symptoms Psychiatric: reports: Anxiety - Risk Factors Known Risk Factors: Yes: Age, Gender, Hypercholesterolemia, Hypertension Vital Signs: Vital Signs Temperature 98.4 F 02/13/20 11:51 Pulse Rate 45 L 02/13/20 14:31 Respiratory Rate 14 02/13/20 14:31 Blood Pressure 151/67 02/13/20 14:31 O2 Sat by Pulse Oximetry (%) 100 02/13/20 16:07 Constitutional: Yes: Anxious, Obese Eyes: Yes: WNL HENT: Yes: WNL Neck: Yes: Supple Respiratory: Yes: Regular Gastrointestinal: Yes: Soft Renal/: No: Anuria Cardiovascular: Yes: Pulse Irregular JVD: No Carotid Bruit: No PMI: Displaced Heart Sounds: Yes: S1 (varies in intensity), S2 Murmur: Yes: Systolic Murmur, Grade 2 Musculoskeletal: Yes: Muscle Weakness Extremities: Yes: Cool Edema: Yes Edema: LLE: Trace, RLE: Trace Peripheral Pulses WNL: Yes Integumentary: Yes: WNL Neurological: Yes: Alert, Oriented, Weakness Psychiatric: Yes: Alert, Oriented, Other (anxiety) - Other Data Labs, Other Data: CBC, BMP 02/13/20 10:25 02/13/20 10:25 INR, PTT INR 1.68 (0.83-1.09) H 02/13/20 10:25 Troponin, BNP 02/13/20 10:25 Troponin I < 0.02 Troponin, BNP 02/13/20 10:25 Troponin I < 0.02 Abnormal Lab Results 02/13/20 02/13/2020 10:25 10:25 10:25 RBC 3.09 L Hgb 10.8 L Hct 31.6 L MCV 102.3 H MCH 35.0 H Monocytes % 13.1 H PT with INR 20.00 H INR 1.68 H Chloride 108 H Anion Gap 5 L BUN 23.7 H Random Glucose 118 H Alkaline Phosphatase 192 H Total Protein 6.0 L Albumin 3.2 L Echo: Report Reviewed Imaging - Results Chest X-ray: Image Reviewed EKG: Image Reviewed Assessment/Plan Chest pain Marked bradycardia (PAF; sinus bradycardia in context of vasovagal reaction; NSVT-->restart metoprolol); [facility] not considered candidate for PPM/ICD at that time; planned for loop recorder. renal dysfunction CAD: s/p CABG, PCI Systolic/diastolic CHF Pancreatic CA-->Whipple's procedure HTN HLD Anemia anxiety Plan: Acute/chronic chest pain F/u TNI (initial < 0.02) and EKG serially; telemetry . Hold AV conduction blockers. F/u lipid panel (on Atorvastatin) On apixaban 5 mg bid for anticoagulation (PAF) On Imdur and Ranexa F/u TSH Prior chest pain episodes led to coronary angiograms, the latest 10/2018 (no PCI required); f/u these records, as well as EP w/u regarding bradycardia. Prior chemotherapy for pancreatic CA stopped due to repeated nausea and vomiting. .
[2020-02-14 07:08] LABS: BASO % 0.6 % (0-2.0); EOS % 4.8 % (0-4.5); HEMATOCRIT 28.8 % (35.4-49); HEMOGLOBIN 9.6 GM/dL (11.7-16.9); LYMPH % 18.8 % (8-40); MCH 34.1 pg (25.7-33.7); MCHC 33.6 g/dl (32.0-35.9); MEAN CELL VOLUME 101.7 fl (80-96); MEAN PLT VOLUME 8.6 fl (7.5-11.1); MONO % 12.2 % (3.8-10.2); NEUT % 63.6 % (42.8-82.8); PLATELET COUNT 172 K/MM3 (134-434); RBC 2.83 M/mm3 (4.00-5.60); WHITE BLOOD COUNT 6.1 K/mm3 (4.0-10.0)
[2020-02-14 07:17] LABS: POTASSIUM 4.4 mmol/L (3.5-5.1)
[2020-02-14 07:18] LABS: ALBUMIN 2.9 g/dl (3.4-5.0); CALCIUM 8.4 mg/dL (8.5-10.1)
[2020-02-14 07:19] LABS: BLOOD UREA NITROGEN 25.3 mg/dL (7-18)
[2020-02-14 07:22] LABS: CREATININE 1.1 mg/dL (0.55-1.3)
[2020-02-14 07:23] LABS: BILIRUBIN,TOTAL 0.6 mg/dL (0.2-1); TOT PROT 5.4 g/dl (6.4-8.2)
--- NOTE | 2020-02-14 08:11 | PN ---
Progress Note, Physician History of Present Illness: Mr. Waddell is a 79 yr old white man (b. [place]) with PMHx of CAD s/p CABG and coronary stents (latest coronary angiogram, 10/2018 at [facility]: no PCI required), PAF (on metoprolol and Eliquis), prostate CA, pancreatic (ampulla) CA s/p Whipple's procedure, anemia, hypertension, hyperlipidemia, GERD, hx urinary retention/UTI-->prolonged hospitalization; gout, overweight, relatively sed entary, admitted 06/2019 with nausea, vomiting, diarrhea, and chest pain in the setting of recent IV chemotherapy, and now presents to ER with similar symptoms that began again a few days ago. On that admission, he had been on metoprolol 12.5 mg bid, and was found to be markedly bradycardic (EKG noted sinus bradycardia, 1st degree AVB, HR 37 bpm), and was given IV atropine, then IV glucagon. HR in ER increased to 45-50 bpm. He is noted again to be in bradycardia (AF with slow VR, with HR in high 30s bpm and pauses of 2-3 seconds) He denies dizziness, palpitations. Pt has had similar previous episodes of N&V and diarrhea, and says chemotherapy was postponed after the last event. s/p pylorus sparing Whipple for ampullary mass in Feb 2019 ([id number] moderately differentiated carcinoma of the ampulla), on adjuvant chemo with weekly gemcitabine and capecitabine since 05/19/19 (last capecitabine 05/29/19; the medication was stopped during that admission for N, V, and diarrhea). - Current Medication List Current Medications: Active Medications Acetaminophen (Tylenol -) 650 mg PO Q4H PRN PRN Reason: PAIN LEVEL 1-5 Last Admin: 02/13/20 21:07 Dose: 650 mg Documented by: Allopurinol (Zyloprim -) 100 mg PO DAILY JORJE Apixaban (Eliquis -) 5 mg PO BID [facility] Last Admin: 02/13/20 21:06 Dose: 5 mg Documented by: Aspirin (Asa -) 81 mg PO DAILY JORJE Atorvastatin Calcium (Lipitor -) 40 mg PO HS [facility] Last Admin: 02/13/20 21:07 Dose: 40 mg Documented by: Folic Acid (Folic Acid -) 1 mg PO DAILY JORJE Furosemide (Lasix -) 20 mg PO DAILY [facility] Isosorbide Mononitrate (Imdur -) 60 mg PO HS [facility] Last Admin: 02/13/20 21:06 Dose: 60 mg Documented by: Lisinopril (Prinivil) 5 mg PO DAILY [facility] Nitroglycerin (Nitrostat -) 0.4 mg SL Q5M PRN PRN Reason: PAIN LEVEL 1-5 Pantoprazole Sodium (Protonix -) 40 mg PO DAILY [facility] Polyethylene Glycol (Miralax (For Daily Use) -) 17 gm PO DAILY [facility] Potassium Chloride (K-Dur -) 10 meq PO DAILY [facility] Ranolazine (Ranexa -) 500 mg PO BID [facility] Last Admin: 02/13/20 21:06 Dose: 500 mg Documented by: - Objective Vital Signs: Vital Signs Temperature 98.2 F 02/14/20 06:00 Pulse Rate 41 L 02/14/20 06:00 Respiratory Rate 18 02/14/20 06:00 Blood Pressure 108/44 L 02/14/20 06:00 O2 Sat by Pulse Oximetry (%) 99 02/14/20 06:00 Eyes: Yes: WNL, Conjunctiva Clear, EOM Intact HENT: Yes: WNL, Atraumatic, Normocephalic Neck: Yes: WNL, Supple, Trachea Midline Cardiovascular: Yes: WNL, Regular Rate and Rhythm Respiratory: Yes: WNL, Regular, CTA Bilaterally Gastrointestinal: Yes: WNL, Normal Bowel Sounds Genitourinary: Yes: WNL Musculoskeletal: Yes: WNL Extremities: Yes: WNL Edema: No Integumentary: Yes: WNL Neurological: Yes: WNL, Alert, Oriented ...Motor Strength: WNL Psychiatric: Yes: WNL Labs: CBC, BMP 02/14/20 05:46 02/14/20 05:46 INR, PTT INR 1.68 (0.83-1.09) H 02/13/20 10:25 Assessment/Plan Assessment/Plan Chest pain Marked bradycardia (PAF; sinus bradycardia in context of vasovagal reaction; NSVT-->restart metoprolol); prior workup at [facility]: not considered candidate for PPM/ICD at that time; planned for loop recorder. renal dysfunction CAD: s/p CABG, PCI Systolic/diastolic CHF Pancreatic CA-->Whipple's procedure HTN HLD Anemia anxiety Plan: Acute/chronic chest pain F/u TNI (initial < 0.02) and EKG serially; telemetry . Hold AV conduction blockers. F/u lipid panel (on Atorvastatin) On apixaban 5 mg bid for anticoagulation (PAF) On Imdur and Ranexa F/u TSH Prior chest pain episodes led to coronary angiograms, the latest 10/2018 (no PCI required); f/u these records, as well as EP w/u regarding bradycardia. Prior chemotherapy for pancreatic CA stopped due to repeated nausea and vomiting. .
--- NOTE | 2020-02-14 10:06 | EKG ---
Test Reason : Blood Pressure : / mmHG Vent. Rate : 049 BPM Atrial Rate : 033 BPM P-R Int : 000 ms QRS Dur : 120 ms QT Int : 488 ms P-R-T Axes : 000 042 099 degrees QTc Int : 440 ms UNDETERMINED RHYTHM BASELINE ARTIFACT CANNOT RULE OUT ANTERIOR INFARCT (CITED ON OR BEFORE 13-FEB-2020) ABNORMAL ECG WHEN COMPARED WITH ECG OF 13-FEB-2020 09:47, UNDERLYING RHYTHM APPEARS UNDETERMINED WITH BASELINE ARTIFACT Confirmed by VIRY TRIANA MD ([id number]) on 02/14/2020 10:05:20 AM Referred By: Confirmed By:VIRY TRIANA MD
[2020-02-14] MEDS ORDERED: PT OWN MED DRAWER 7, Y5N ONE (10:08)
--- NOTE | 2020-02-14 10:08 | EKG ---
Test Reason : Blood Pressure : / mmHG Vent. Rate : 049 BPM Atrial Rate : 049 BPM P-R Int : 242 ms QRS Dur : 128 ms QT Int : 494 ms P-R-T Axes : 117 029 093 degrees QTc Int : 446 ms SINUS BRADYCARDIA WITH 1ST DEGREE A-V BLOCK WITH PREMATURE VENTRICULAR COMPLEX OR ABERRANT CONDUCTION NON-SPECIFIC INTRA-VENTRICULAR CONDUCTION BLOCK CANNOT RULE OUT ANTERIOR INFARCT (CITED ON OR BEFORE 13-FEB-2020) ABNORMAL ECG WHEN COMPARED WITH ECG OF 02-JAN-2020 20:12, PREMATURE VENTRICULAR COMPLEXES SEEN Confirmed by VIRY TRIANA MD ([id number]) on 02/14/2020 10:07:49 AM Referred By: Confirmed By:VIRY TRIANA MD
[2020-02-14] MEDS: PANTOPRAZOLE 40 MG TABLET PO SCH (10:19)
[2020-02-14] MEDS: FUROSEMIDE 20 MG TABLET (FP) PO SCH (10:19)
[2020-02-14] MEDS: APIXABAN 5 MG TABLET PO SCH ×2 (10:19→21:16)
[2020-02-14] MEDS: ASPIRIN 81 MG CHEWABLE TABLETS PO SCH (10:19)
[2020-02-14] MEDS: RANOLAZINE E.R. 500 MG TABLET (FP) PO SCH ×2 (10:19→21:16)
[2020-02-14] MEDS: FOLIC ACID 1 MG TABLET (FP) PO SCH (10:20)
[2020-02-14] MEDS: LISINOPRIL 5 MG TABLET PO SCH (10:20)
[2020-02-14] MEDS: POLYETHYLENE GLYCOL 3350 119 GM BTL PO SCH (10:20)
[2020-02-14] MEDS: POTASSIUM CHLORIDE TABS 10 MEQ TABLET.ER (FP) PO SCH (10:20)
[2020-02-14] MEDS: ALLOPURINOL 100 MG TABLET (FP) PO SCH (10:20)
--- NOTE | 2020-02-14 11:26 | PN ---
Progress Note, Physician History of Present Illness: Pt seen/ examined in tele chart is reviewed awake/ comfortable Remains Markus - Current Medication List Current Medications: Active Medications Acetaminophen (Tylenol -) 650 mg PO Q4H PRN PRN Reason: PAIN LEVEL 1-5 Last Admin: 02/13/20 21:07 Dose: 650 mg Documented by: Allopurinol (Zyloprim -) 100 mg PO DAILY [facility] Last Admin: 02/14/20 10:20 Dose: 100 mg Documented by: Apixaban (Eliquis -) 5 mg PO BID [facility] Last Admin: 02/14/20 10:19 Dose: 5 mg Documented by: Aspirin (Asa -) 81 mg PO DAILY [facility] Last Admin: 02/14/20 10:19 Dose: 81 mg Documented by: Atorvastatin Calcium (Lipitor -) 40 mg PO HS [facility] Last Admin: 02/13/20 21:07 Dose: 40 mg Documented by: Folic Acid (Folic Acid -) 1 mg PO DAILY [facility] Last Admin: 02/14/20 10:20 Dose: 1 mg Documented by: Furosemide (Lasix -) 20 mg PO DAILY [facility] Last Admin: 02/14/20 10:19 Dose: 20 mg Documented by: Isosorbide Mononitrate (Imdur -) 60 mg PO HS [facility] Last Admin: 02/13/20 21:06 Dose: 60 mg Documented by: Lisinopril (Prinivil) 5 mg PO DAILY [facility] Last Admin: 02/14/20 10:20 Dose: 5 mg Documented by: Nitroglycerin (Nitrostat -) 0.4 mg SL Q5M PRN PRN Reason: PAIN LEVEL 1-5 Pantoprazole Sodium (Protonix -) 40 mg PO DAILY [facility] Last Admin: 02/14/20 10:19 Dose: 40 mg Documented by: Polyethylene Glycol (Miralax (For Daily Use) -) 17 gm PO DAILY [facility] Last Admin: 02/14/20 10:20 Dose: 17 gm Documented by: Potassium Chloride (K-Dur -) 10 meq PO DAILY [facility] Last Admin: 02/14/20 10:20 Dose: 10 meq Documented by: Ranolazine (Ranexa -) 500 mg PO BID [facility] Last Admin: 02/14/20 10:19 Dose: 500 mg Documented by: - Objective Vital Signs: Vital Signs Temperature 98 F 02/14/20 10:00 Pulse Rate 65 02/14/20 10:00 Respiratory Rate 18 02/14/20 10:00 Blood Pressure 103/63 02/14/20 10:00 O2 Sat by Pulse Oximetry (%) 99 02/14/20 10:00 Constitutional: Yes: No Distress, Calm Neck: Yes: Supple Cardiovascular: Yes: Regular Rate and Rhythm, Bradycardia Respiratory: Yes: CTA Bilaterally Gastrointestinal: Yes: Soft Peripheral Pulses WNL: No Neurological: Yes: Alert Psychiatric: Yes: Alert Labs: CBC, BMP 02/14/20 05:46 02/14/20 05:46 INR, PTT INR 1.68 (0.83-1.09) H 02/13/20 10:25 - ....Imaging EKG: Report Reviewed Problem List - Problems (1) Chest pain Code(s): R07.9 - CHEST PAIN, UNSPECIFIED (2) Bradycardia Code(s): R00.1 - BRADYCARDIA, UNSPECIFIED (3) Hx of CABG Code(s): Z95.1 - PRESENCE OF AORTOCORONARY BYPASS GRAFT (4) Pancreatic cancer Code(s): C25.9 - MALIGNANT NEOPLASM OF PANCREAS, UNSPECIFIED (5) Paroxysmal atrial fibrillation Code(s): I48.0 - PAROXYSMAL ATRIAL FIBRILLATION Assessment/Plan Monitor on tele Cardiology following will follow d/w pt and RN also
[2020-02-14] MEDS ORDERED: MELATONIN 5 MG TABLETS PO PRN (19:57)
[2020-02-14] MEDS: ISOSORBIDE MONONITRATE 60 MG TAB.SR.24H (FP) PO SCH (21:16)
[2020-02-14] MEDS: ATORVASTATIN CA 40 MG TABLET (FP) PO SCH (21:16)
[2020-02-14] MEDS: ACETAMINOPHEN 325 MG TABLET (FP) PO PRN (21:19)
[2020-02-15] MEDS: PANTOPRAZOLE 40 MG TABLET PO SCH (10:08)
[2020-02-15] MEDS: APIXABAN 5 MG TABLET PO SCH (10:08)
[2020-02-15] MEDS: RANOLAZINE E.R. 500 MG TABLET (FP) PO SCH (10:08)
[2020-02-15] MEDS: ASPIRIN 81 MG CHEWABLE TABLETS PO SCH (10:08)
[2020-02-15] MEDS: POTASSIUM CHLORIDE TABS 10 MEQ TABLET.ER (FP) PO SCH (10:08)
[2020-02-15] MEDS: POLYETHYLENE GLYCOL 3350 119 GM BTL PO SCH (10:08)
[2020-02-15] MEDS: FUROSEMIDE 20 MG TABLET (FP) PO SCH (10:08)
[2020-02-15] MEDS: ALLOPURINOL 100 MG TABLET (FP) PO SCH (10:08)
[2020-02-15] MEDS: FOLIC ACID 1 MG TABLET (FP) PO SCH (10:08)
[2020-02-15] MEDS: LISINOPRIL 5 MG TABLET PO SCH (10:08)
[2020-02-15] MEDS: NITROGLYCERIN SUBLINGUAL 1/150 0.4 MG TAB SL PRN ×2 (10:23→10:48)
--- NOTE | 2020-02-15 12:51 | PN ---
Progress Note (short form) - Note Progress Note: events noted pt had chest pain this AM-- received NTG Constipated belching, feels gassy Had pain in left side of chest-- dull sharp pain no nausea Vital Signs - 24 hr 02/14/20 02/14/20 02/14/20 14:00 18:00 21:00 Temperature 98.7 F 98.4 F 97.8 F Pulse Rate 60 73 55 L Respiratory 16 18 20 Rate Blood Pressure 132/57 L 123/73 141/86 O2 Sat by Pulse 100 99 Oximetry (%) 02/15/20 02/15/20 02/15/20 02:00 06:00 10:00 Temperature 98.0 F 97.9 F 97.8 F Pulse Rate 53 L 59 L 43 L Respiratory 18 20 18 Rate Blood Pressure 140/72 142/64 O2 Sat by Pulse 96 99 99 Oximetry (%) Current Medications Generic Name Dose Route Start Last Admin Trade Name Freq PRN Reason Stop Dose Admin Acetaminophen 650 mg 02/13/20 12:35 02/14/20 21:19 Tylenol - PO 650 mg Q4H PRN Administration PAIN LEVEL 1-5 Allopurinol 100 mg 02/14/20 10:00 02/15/20 10:08 Zyloprim - PO 100 mg DAILY JORJE Administration Apixaban 5 mg 02/13/20 22:00 02/15/20 10:08 Eliquis - PO 5 mg BID [facility]ORJE Administration Aspirin 81 mg 02/14/20 10:00 02/15/20 10:08 Asa - PO 81 mg DAILY JORJE Administration Atorvastatin Calcium 40 mg 02/13/20 22:00 02/14/20 21:16 Lipitor - PO 40 mg HS JORJE Administration Folic Acid 1 mg 02/14/20 10:00 02/15/20 10:08 Folic Acid - PO 1 mg DAILY JORJE Administration Furosemide 20 mg 02/14/20 10:00 02/15/20 10:08 Lasix - PO 20 mg DAILY JORJE Administration Isosorbide Mononitrate 60 mg 02/13/20 22:00 02/14/20 21:16 Imdur - PO 60 mg HS [facility]ORJE Administration Lisinopril 5 mg 02/14/20 10:00 02/15/20 10:08 Prinivil PO 5 mg DAILY [facility]ORJE Administration Melatonin 5 mg 02/14/20 19:57 02/14/20 21:16 Melatonin PO 5 mg HR decrease HS PRN Administration INSOMNIA Nitroglycerin 0.4 mg 02/13/20 12:32 02/15/20 10:48 Nitrostat - SL 0.4 mg Q5M PRN Administration PAIN LEVEL 1-5 Pantoprazole Sodium 40 mg 02/14/20 10:00 02/15/20 10:08 Protonix - PO 40 mg DAILY JORJE Administration Polyethylene Glycol 17 gm 02/14/20 10:00 02/15/20 10:08 Miralax (For Daily Use) - PO 17 gm DAILY [facility]ORJE Administration Potassium Chloride 10 meq 02/14/20 10:00 02/15/20 10:08 K-Dur - PO 10 meq DAILY [facility]ORJE Administration Ranolazine 500 mg 02/13/20 22:00 02/15/20 10:08 Ranexa - PO 500 mg BID JORJE Administration Laboratory Results - last 24 hr 02/13/20 12:00 COVID-19 ([facility]) Not detected S1 S2 Irregular Lungs-- clear Abd-- soft, NT No edema A/P Bradycardia Pafib HTN CHF -- HR decreases to 30's at some time-- no symptoms -- NTG as needed -- troponins negative -- stool softeners as needed -- OOB -- lymes pending ' Problem List - Problems (1) Bradycardia Code(s): R00.1 - BRADYCARDIA, UNSPECIFIED (2) Chest pain Code(s): R07.9 - CHEST PAIN, UNSPECIFIED (3) ASHD (arteriosclerotic heart disease) Code(s): I25.10 - ATHSCL HEART DISEASE OF [place] CORONARY ARTERY W/O ANG PCTRS (4) Atypical chest pain Code(s): R07.89 - OTHER CHEST PAIN (5) Bradycardia Code(s): R00.1 - BRADYCARDIA, UNSPECIFIED (6) Chronic diastolic (congestive) heart failure Code(s): I50.32 - CHRONIC DIASTOLIC (CONGESTIVE) HEART FAILURE (7) Dyspepsia Code(s): R10.13 - EPIGASTRIC PAIN
[2020-02-15] MEDS ORDERED: SIMETHICONE 80 MG TAB.CHEW (FP) PO PRN (12:56)
[2020-02-15 14:17] VITALS: BP 147/63; PULSE 45; TEMP 97.9
--- NOTE | 2020-02-15 15:26 | PN ---
Progress Note, Physician Chief Complaint: Pt A&Ox3; has abdominal discomfort and chest pain that goes away when he belches. No dyspnea, dizziness, palpitations. History of Present Illness: Mr. Waddell is a 79 yr old white man (b. [place]) with PMHx of CAD s/p CABG and coronary stents (latest coronary angiogram, 10/2018 at [facility]: no PCI required), PAF (on metoprolol and Eliquis), prostate CA, pancreatic (ampulla) CA s/p Whipple's procedure, anemia, hypertension, hyperlipidemia, GERD, hx urinary retention/UTI-->prolonged hospitalization; gout, overweight, relatively sedentary, admitted 06/2019 with nausea, vomiting, diarrhea, and chest pain in the setting of recent IV chemotherapy, and now presents to ER with similar symptoms that began again a few days ago. On that admission, he had been on metoprolol 12.5 mg bid, and was found to be markedly bradycardic (EKG noted sinus bradycardia, 1st degree AVB, HR 37 bpm), and was given IV atropine, then IV glucagon. HR in ER increased to 45-50 bpm. He is noted again to be in bradycardia (AF with slow VR, with HR in high 30s bpm and pauses of 2-3 seconds) He denies dizziness, palpitations. Pt has had similar previous episodes of N&V and diarrhea, and says chemotherapy was postponed after the last event. s/p pylorus sparing Whipple for ampullary mass in Feb 2019 ([id number] moderately differentiated carcinoma of the ampulla), on adjuvant chemo with weekly gemcitabine and capecitabine since 05/19/19 (last capecitabine 05/29/19; the medication was stopped during that admission for N, V, and diarrhea). - Current Medication List Current Medications: Active Medications Acetaminophen (Tylenol -) 650 mg PO Q4H PRN PRN Reason: PAIN LEVEL 1-5 Last Admin: 02/14/20 21:19 Dose: 650 mg Documented by: Allopurinol (Zyloprim -) 100 mg PO DAILY [facility] Last Admin: 02/15/20 10:08 Dose: 100 mg Documented by: Apixaban (Eliquis -) 5 mg PO BID [facility] Last Admin: 02/15/20 10:08 Dose: 5 mg Documented by: Aspirin (Asa -) 81 mg PO DAILY [facility] Last Admin: 02/15/20 10:08 Dose: 81 mg Documented by: Atorvastatin Calcium (Lipitor -) 40 mg PO HS [facility] Last Admin: 02/14/20 21:16 Dose: 40 mg Documented by: Folic Acid (Folic Acid -) 1 mg PO DAILY [facility] Last Admin: 02/15/20 10:08 Dose: 1 mg Documented by: Furosemide (Lasix -) 20 mg PO DAILY [facility] Last Admin: 02/15/20 10:08 Dose: 20 mg Documented by: Isosorbide Mononitrate (Imdur -) 60 mg PO HS [facility] Last Admin: 02/14/20 21:16 Dose: 60 mg Documented by: Lisinopril (Prinivil) 5 mg PO DAILY [facility] Last Admin: 02/15/20 10:08 Dose: 5 mg Documented by: Melatonin (Melatonin) 5 mg PO HS PRN PRN Reason: INSOMNIA Last Admin: 02/14/20 21:16 Dose: 5 mg Documented by: Nitroglycerin (Nitrostat -) 0.4 mg SL Q5M PRN PRN Reason: PAIN LEVEL 1-5 Last Admin: 02/15/20 10:48 Dose: 0.4 mg Documented by: Pantoprazole Sodium (Protonix -) 40 mg PO DAILY [facility] Last Admin: 02/15/20 10:08 Dose: 40 mg Documented by: Polyethylene Glycol (Miralax (For Daily Use) -) 17 gm PO DAILY [facility] Last Admin: 02/15/20 10:08 Dose: 17 gm Documented by: Potassium Chloride (K-Dur -) 10 meq PO DAILY [facility] Last Admin: 02/15/20 10:08 Dose: 10 meq Documented by: Ranolazine (Ranexa -) 500 mg PO BID [facility] Last Admin: 02/15/20 10:08 Dose: 500 mg Documented by: Senna (Senna -) 2 tab PO HS [facility] Simethicone (Mylicon -) 80 mg PO Q4H PRN PRN Reason: DYSPEPSIA Last Admin: 02/15/20 13:45 Dose: 80 mg Documented by: - Objective Vital Signs: Vital Signs Temperature 97.9 F 02/15/20 14:00 Pulse Rate 45 L 02/15/20 14:00 Respiratory Rate 18 02/15/20 14:00 Blood Pressure 147/63 02/15/20 14:00 O2 Sat by Pulse Oximetry (%) 99 02/15/20 10:00 Constitutional: Yes: Calm Labs: CBC, BMP 02/14/20 05:46 02/14/20 05:46 INR, PTT INR 1.68 (0.83-1.09) H 02/13/20 10:25 Assessment/Plan Chest pain Marked bradycardia (PAF; sinus bradycardia in context of vasovagal reaction; NSVT-->restart metoprolol); prior workup at [facility]: not considered candidate for PPM/ICD at that time; planned for loop recorder). renal dysfunction CAD: s/p CABG, PCI Systolic/diastolic CHF Pancreatic CA-->Whipple's procedure HTN HLD Anemia anxiety Plan: Acute/chronic chest pain F/u TNI (initial < 0.02) and EKG serially; telemetry . Hold AV conduction blockers (pt's says he has not taken metoprolol in several weeks). F/u lipid panel (on Atorvastatin) On apixaban 5 mg bid for anticoagulation (PAF) On Imdur and Ranexa TSH WNL. Prior chest pain episodes led to coronary angiograms, the latest 10/2018 (no PCI required); f/u these records, as well as EP w/u regarding bradycardia. Prior chemotherapy for pancreatic CA stopped due to repeated nausea and vomiting. From cardiac perspective, pt may be followed as an outpatient. .
--- NOTE | 2020-02-15 15:49 | DS ---
Physical Examination Vital Signs: Vital Signs Temperature 97.9 F 02/15/20 14:00 Pulse Rate 45 L 02/15/20 14:00 Respiratory Rate 18 02/15/20 14:00 Blood Pressure 147/63 02/15/20 14:00 O2 Sat by Pulse Oximetry (%) 99 02/15/20 10:00 Labs: CBC, BMP 02/14/20 05:46 02/14/20 05:46 Discharge Summary Problems reviewed: Yes Reason For Visit: CHEST PAIN Current Active Problems Bradycardia (Acute) Chest pain (Acute) - Instructions Referrals: Samantha Pham MD [Primary Care Provider] - - Home Medications Comprehensive Discharge Medication List: Ambulatory Orders Folic Acid 1 mg PO DAILY 11/04/16 Allopurinol [Zyloprim -] 100 mg PO DAILY 09/04/18 Lisinopril [Zestril] 5 mg PO DAILY 09/04/18 Tramadol HCl 50 mg PO ASDIR PRN 09/04/18 Isosorbide Mononitrate [Isosorbide Mononitrate ER] 60 mg PO HS 10/12/18 Apixaban [Eliquis] 5 mg PO BID 01/11/19 Atorvastatin Calcium 40 mg PO HS 01/11/19 Ranolazine [Ranexa] 500 mg PO BID 01/11/19 Pantoprazole Sodium [Protonix -] 40 mg PO DAILY 06/17/19 Aspirin 81 mg PO DAILY 02/13/20 Furosemide [Lasix] 20 mg PO DAILY 02/13/20 Nitroglycerin 0.4 mg SL PRN 02/13/20 Polyethylene Glycol 3350 [Miralax 119 gm Btl -] 17 gm PO DAILY 02/13/20 Potassium Chloride 10 meq PO DAILY 02/13/20 Sennosides [Senna -] 2 tab PO HS #30 tablet 02/15/20 Simethicone [Mylicon -] 80 mg PO Q4H PRN #30 tab.chew 02/15/20
[2020-02-15] MEDS ORDERED: SENNOSIDES 8.6MG TABLET (FP) PO SCH (22:00)
== END 2020-02-15 17:11 | disposition home or self-care (01) | DRG 309 ==
LOC: JER 09:32 → JERBED 11:51 → J4S 15:32
PROVIDERS: ADMIT Internal Medicine; ATTEND Internal Medicine
DX: R00.1 Bradycardia, unspecified (principal); I50.42 Chronic combined systolic (congestive) and diastolic (congestive) heart failure; R07.9 Chest pain, unspecified; Z85.07 Personal history of malignant neoplasm of pancreas; I48.0 Paroxysmal atrial fibrillation; I25.10 Atherosclerotic heart disease of native coronary artery without angina pectoris; E78.5 Hyperlipidemia, unspecified; I73.9 Peripheral vascular disease, unspecified; N40.0 Benign prostatic hyperplasia without lower urinary tract symptoms; Z95.1 Presence of aortocoronary bypass graft; Z95.5 Presence of coronary angioplasty implant and graft; I10 Essential (primary) hypertension; K21.9 Gastro-esophageal reflux disease without esophagitis; D64.9 Anemia, unspecified; F41.9 Anxiety disorder, unspecified; K59.00 Constipation, unspecified
CPT/HCPCS: 36415; 71045-TC-FY; 80053; 82550; 83735; 84443; 84484; 85025; 85610; 86618; 93005; 93010; 99285-25; C9803; U0003

== ENCOUNTER 2020-06-22 16:01 | Inpatient (IN) | payer OTHER, MEDICARE ==
[2020-06-22 18:54] LABS: BASO % 0.5 % (0-2.0); EOS % 5.8 % (0-4.5); MCH 32.3 pg (25.7-33.7); MCHC 33.5 g/dl (32.0-35.9); MEAN CELL VOLUME 96.6 fl (80-96); MEAN PLT VOLUME 8.7 fl (7.5-11.1); MONO % 14.3 % (3.8-10.2); NEUT % 64.4 % (42.8-82.8); PLATELET COUNT 186 K/MM3 (134-434); RBC 3.11 M/mm3 (4.00-5.60); RDW 14.5 % (11.9-15.9)
[2020-06-22 19:26] LABS: CHLORIDE 99 mmol/L (98-107); POTASSIUM 4.8 mmol/L (3.5-5.1); SODIUM 131 mmol/L (136-145)
[2020-06-22 19:27] LABS: CALCIUM 8.5 mg/dL (8.5-10.1)
[2020-06-22 19:28] LABS: ANION GAP 6 MMOL/L (8-16); BLOOD UREA NITROGEN 17.5 mg/dL (7-18); CO2 26 mmol/L (21-32); GLUCOSE,RANDOM 103 mg/dL (74-106)
[2020-06-22] MEDS ORDERED: MORPHINE SULFATE 2 MG/ML VIAL ONE (23:12)
[2020-06-22] MEDS: MORPHINE SULFATE 2 MG/ML VIAL IVPUSH PRN (23:24)
[2020-06-23 04:02] VITALS: BMI 30.4
[2020-06-23] MEDS ORDERED: traMADol HCL 50 MG TABLET PO PRN (11:36)
[2020-06-23] MEDS ORDERED: MORPHINE SULFATE 2 MG/ML VIAL IVPUSH PRN (11:38)
[2020-06-23] MEDS ORDERED: PANTOPRAZOLE 40 MG TABLET PO SCH (11:45)
[2020-06-23] MEDS ORDERED: NITROGLYCERIN SUBLINGUAL 1/150 0.4 MG TAB SL PRN (12:13)
[2020-06-23] MEDS: PANTOPRAZOLE 40 MG TABLET PO SCH ×2 (12:29→21:13)
[2020-06-23] MEDS: APIXABAN 5 MG TABLET PO SCH ×2 (12:29→21:13)
[2020-06-23] MEDS: SIMETHICONE 80 MG TAB.CHEW (FP) PO PRN (19:55)
[2020-06-23] MEDS: POLYETHYLENE GLYCOL 3350 119 GM BTL PO SCH (21:13)
[2020-06-23] MEDS: ISOSORBIDE MONONITRATE 60 MG TAB.SR.24H (FP) PO SCH (21:13)
[2020-06-23] MEDS: SENNOSIDES 8.6MG TABLET (FP) PO SCH (21:13)
[2020-06-23] MEDS: RANOLAZINE E.R. 500 MG TABLET (FP) PO SCH (21:13)
[2020-06-23] MEDS: ATORVASTATIN CA 40 MG TABLET (FP) PO SCH (21:13)
[2020-06-23] MEDS: NITROGLYCERIN SUBLINGUAL 1/150 0.4 MG TAB SL SCH (21:47)
[2020-06-23] MEDS: MAG HYDROX/AL HYDROX/SIMETH 30 ML UNIT-DOSE CUP PO PRN (23:05)
[2020-06-24] MEDS: SIMETHICONE 80 MG TAB.CHEW (FP) PO PRN (03:50)
[2020-06-24] MEDS: MAG HYDROX/AL HYDROX/SIMETH 30 ML UNIT-DOSE CUP PO PRN (06:27)
[2020-06-24] MEDS: POLYETHYLENE GLYCOL 3350 119 GM BTL PO SCH ×3 (06:27→21:17)
[2020-06-24 06:43] LABS: BASO % 0.6 % (0-2.0); EOS % 4.4 % (0-4.5); HEMATOCRIT 28.5 % (35.4-49); HEMOGLOBIN 9.8 GM/dL (11.7-16.9); LYMPH % 10.7 % (8-40); MCH 32.8 pg (25.7-33.7); MCHC 34.2 g/dl (32.0-35.9); MEAN CELL VOLUME 95.8 fl (80-96); MEAN PLT VOLUME 8.3 fl (7.5-11.1); MONO % 14.2 % (3.8-10.2); NEUT % 70.1 % (42.8-82.8); PLATELET COUNT 189 K/MM3 (134-434); RBC 2.98 M/mm3 (4.00-5.60); RDW 14.2 % (11.9-15.9); WHITE BLOOD COUNT 7.6 K/mm3 (4.0-10.0)
[2020-06-24 06:55] LABS: POTASSIUM 5.2 mmol/L (3.5-5.1)
[2020-06-24 06:59] LABS: ALBUMIN 2.9 g/dl (3.4-5.0); BLOOD UREA NITROGEN 18.9 mg/dL (7-18)
[2020-06-24 07:00] LABS: CALCIUM 8.4 mg/dL (8.5-10.1)
[2020-06-24 07:05] LABS: BILIRUBIN,TOTAL 0.5 mg/dL (0.2-1); TOT PROT 5.5 g/dl (6.4-8.2)
[2020-06-24] MEDS: PANTOPRAZOLE 40 MG TABLET PO SCH ×2 (09:52→21:17)
[2020-06-24] MEDS: ASPIRIN 81 MG CHEWABLE TABLETS PO SCH (09:52)
[2020-06-24] MEDS: FUROSEMIDE 20 MG TABLET (FP) PO SCH (09:53)
[2020-06-24] MEDS: APIXABAN 5 MG TABLET PO SCH ×2 (09:53→21:17)
[2020-06-24] MEDS: POTASSIUM CHLORIDE TABS 10 MEQ TABLET.ER (FP) PO SCH (09:53)
[2020-06-24] MEDS: LISINOPRIL 5 MG TABLET PO SCH (09:53)
[2020-06-24] MEDS: ALLOPURINOL 100 MG TABLET (FP) PO SCH (09:54)
[2020-06-24] MEDS: RANOLAZINE E.R. 500 MG TABLET (FP) PO SCH ×2 (09:54→21:17)
[2020-06-24] MEDS ORDERED: POLYETHYLENE GLYCOL 3350 119 GM BTL PO SCH (10:00)
[2020-06-24] MEDS: FOLIC ACID 1 MG TABLET (FP) PO SCH (10:31)
[2020-06-24] MEDS ORDERED: MINERAL OIL ENEMA 133 ML ENEMA RC ONE (13:30)
[2020-06-24 18:49] LABS: N-TERMINAL BNP 4796.6 pg/ml (5-450)
[2020-06-24] MEDS: ISOSORBIDE MONONITRATE 60 MG TAB.SR.24H (FP) PO SCH (21:17)
[2020-06-24] MEDS: ATORVASTATIN CA 40 MG TABLET (FP) PO SCH (21:17)
[2020-06-24] MEDS: SENNOSIDES 8.6MG TABLET (FP) PO SCH (21:17)
[2020-06-25] MEDS: MORPHINE SULFATE 2 MG/ML VIAL IVPUSH PRN (03:29)
[2020-06-25] MEDS: POLYETHYLENE GLYCOL 3350 119 GM BTL PO SCH ×3 (05:08→21:27)
[2020-06-25] MEDS: APIXABAN 5 MG TABLET PO SCH ×2 (10:15→21:24)
[2020-06-25] MEDS: FUROSEMIDE 20 MG TABLET (FP) PO SCH (10:15)
[2020-06-25] MEDS: RANOLAZINE E.R. 500 MG TABLET (FP) PO SCH ×2 (10:16→21:24)
[2020-06-25] MEDS: LISINOPRIL 5 MG TABLET PO SCH (10:16)
[2020-06-25] MEDS: ALLOPURINOL 100 MG TABLET (FP) PO SCH (10:16)
[2020-06-25] MEDS: ASPIRIN 81 MG CHEWABLE TABLETS PO SCH (10:16)
[2020-06-25] MEDS: PANTOPRAZOLE 40 MG TABLET PO SCH ×2 (10:16→21:24)
[2020-06-25] MEDS: FOLIC ACID 1 MG TABLET (FP) PO SCH (10:16)
[2020-06-25] MEDS: POTASSIUM CHLORIDE TABS 10 MEQ TABLET.ER (FP) PO SCH ×2 (10:16→10:17)
[2020-06-25] MEDS: SIMETHICONE 80 MG TAB.CHEW (FP) PO PRN ×2 (14:37→21:24)
[2020-06-25] MEDS: ATORVASTATIN CA 40 MG TABLET (FP) PO SCH (21:24)
[2020-06-25] MEDS: SENNOSIDES 8.6MG TABLET (FP) PO SCH (21:24)
[2020-06-25] MEDS: ISOSORBIDE MONONITRATE 60 MG TAB.SR.24H (FP) PO SCH (21:24)
[2020-06-26] MEDS: MAG HYDROX/AL HYDROX/SIMETH 30 ML UNIT-DOSE CUP PO PRN (01:18)
[2020-06-26] MEDS: POLYETHYLENE GLYCOL 3350 119 GM BTL PO SCH ×3 (05:42→21:15)
[2020-06-26] MEDS: FOLIC ACID 1 MG TABLET (FP) PO SCH (10:09)
[2020-06-26] MEDS: ASPIRIN 81 MG CHEWABLE TABLETS PO SCH (10:10)
[2020-06-26] MEDS: LISINOPRIL 5 MG TABLET PO SCH (10:10)
[2020-06-26] MEDS: RANOLAZINE E.R. 500 MG TABLET (FP) PO SCH ×2 (10:11→21:14)
[2020-06-26] MEDS: ALLOPURINOL 100 MG TABLET (FP) PO SCH (10:11)
[2020-06-26] MEDS: APIXABAN 5 MG TABLET PO SCH ×2 (10:12→21:14)
[2020-06-26] MEDS: FUROSEMIDE 20 MG TABLET (FP) PO SCH (10:12)
[2020-06-26] MEDS: PANTOPRAZOLE 40 MG TABLET PO SCH ×2 (10:12→21:14)
[2020-06-26] MEDS: POTASSIUM CHLORIDE TABS 10 MEQ TABLET.ER (FP) PO SCH (10:13)
[2020-06-26] MEDS: SIMETHICONE 80 MG TAB.CHEW (FP) PO PRN ×2 (10:15→21:22)
[2020-06-26] MEDS ORDERED: MINERAL OIL ENEMA 133 ML ENEMA RC ONE (10:58)
[2020-06-26] MEDS ORDERED: PEG 3350/NA SULF BICARB CL/KCL 4000 ML SOLN.RECON PO ONE (12:10)
[2020-06-26 15:12] LABS: BASO % 0.4 % (0-2.0); EOS % 4.3 % (0-4.5); HEMATOCRIT 29.4 % (35.4-49); LYMPH % 13.1 % (8-40); MCH 32.6 pg (25.7-33.7); MEAN CELL VOLUME 95.7 fl (80-96); MONO % 16.3 % (3.8-10.2); NEUT % 65.9 % (42.8-82.8); PLATELET COUNT 207 K/MM3 (134-434); RBC 3.07 M/mm3 (4.00-5.60); RDW 14.8 % (11.9-15.9)
[2020-06-26 15:36] LABS: POTASSIUM 4.6 mmol/L (3.5-5.1)
[2020-06-26 15:38] LABS: BLOOD UREA NITROGEN 28.3 mg/dL (7-18)
[2020-06-26 15:39] LABS: ALBUMIN 2.9 g/dl (3.4-5.0)
[2020-06-26 15:41] LABS: CREATININE 1.1 mg/dL (0.55-1.3)
[2020-06-26 15:43] LABS: BILIRUBIN,TOTAL 0.6 mg/dL (0.2-1); TOT PROT 5.8 g/dl (6.4-8.2)
[2020-06-26 15:45] LABS: CALCIUM 8.2 mg/dL (8.5-10.1)
[2020-06-26 19:50] LABS: BASO % 0.8 % (0-2.0); EOS % 4.5 % (0-4.5); HEMATOCRIT 32.3 % (35.4-49); HEMOGLOBIN 11.1 GM/dL (11.7-16.9); LYMPH % 15.3 % (8-40); MCH 32.6 pg (25.7-33.7); MCHC 34.2 g/dl (32.0-35.9); MEAN CELL VOLUME 95.1 fl (80-96); MEAN PLT VOLUME 8.2 fl (7.5-11.1); MONO % 17.2 % (3.8-10.2); NEUT % 62.2 % (42.8-82.8); PLATELET COUNT 232 K/MM3 (134-434); RDW 14.4 % (11.9-15.9); WHITE BLOOD COUNT 8.2 K/mm3 (4.0-10.0)
[2020-06-26 20:13] LABS: POTASSIUM 4.5 mmol/L (3.5-5.1)
[2020-06-26 20:15] LABS: CALCIUM 8.8 mg/dL (8.5-10.1)
[2020-06-26 20:16] LABS: ALBUMIN 3.3 g/dl (3.4-5.0); BLOOD UREA NITROGEN 26.6 mg/dL (7-18)
[2020-06-26 20:19] LABS: CREATININE 1.1 mg/dL (0.55-1.3)
[2020-06-26 20:20] LABS: BILIRUBIN,TOTAL 0.5 mg/dL (0.2-1); TOT PROT 6.6 g/dl (6.4-8.2)
[2020-06-26] MEDS: ISOSORBIDE MONONITRATE 60 MG TAB.SR.24H (FP) PO SCH (21:14)
[2020-06-26] MEDS: SENNOSIDES 8.6MG TABLET (FP) PO SCH (21:14)
[2020-06-26] MEDS: ATORVASTATIN CA 40 MG TABLET (FP) PO SCH (21:14)
[2020-06-27] MEDS: ACETAMINOPHEN 500 MG TABLET (FP) PO PRN (02:58)
[2020-06-27] MEDS: MAG HYDROX/AL HYDROX/SIMETH 30 ML UNIT-DOSE CUP PO PRN (02:58)
[2020-06-27] MEDS: POLYETHYLENE GLYCOL 3350 119 GM BTL PO SCH ×3 (06:49→21:45)
[2020-06-27] MEDS: PANTOPRAZOLE 40 MG TABLET PO SCH ×2 (09:43→21:44)
[2020-06-27] MEDS: APIXABAN 5 MG TABLET PO SCH ×2 (09:43→21:44)
[2020-06-27] MEDS: FOLIC ACID 1 MG TABLET (FP) PO SCH (09:43)
[2020-06-27] MEDS: RANOLAZINE E.R. 500 MG TABLET (FP) PO SCH ×2 (09:43→21:44)
[2020-06-27] MEDS: FUROSEMIDE 20 MG TABLET (FP) PO SCH (09:44)
[2020-06-27] MEDS: LISINOPRIL 5 MG TABLET PO SCH (09:44)
[2020-06-27] MEDS: ASPIRIN 81 MG CHEWABLE TABLETS PO SCH (09:44)
[2020-06-27] MEDS: POTASSIUM CHLORIDE TABS 10 MEQ TABLET.ER (FP) PO SCH (09:46)
[2020-06-27] MEDS: ALLOPURINOL 100 MG TABLET (FP) PO SCH (09:47)
[2020-06-27] MEDS: SIMETHICONE 80 MG TAB.CHEW (FP) PO PRN ×3 (09:51→21:45)
[2020-06-27] MEDS: ATORVASTATIN CA 40 MG TABLET (FP) PO SCH (21:44)
[2020-06-27] MEDS: ISOSORBIDE MONONITRATE 60 MG TAB.SR.24H (FP) PO SCH (21:44)
[2020-06-27] MEDS: SENNOSIDES 8.6MG TABLET (FP) PO SCH (21:44)
[2020-06-28] MEDS: SIMETHICONE 80 MG TAB.CHEW (FP) PO PRN ×3 (03:37→21:51)
[2020-06-28] MEDS: POLYETHYLENE GLYCOL 3350 119 GM BTL PO SCH ×3 (05:50→21:50)
[2020-06-28] MEDS: PANTOPRAZOLE 40 MG TABLET PO SCH ×2 (09:26→21:51)
[2020-06-28] MEDS: ASPIRIN 81 MG CHEWABLE TABLETS PO SCH (09:27)
[2020-06-28] MEDS: ALLOPURINOL 100 MG TABLET (FP) PO SCH (09:27)
[2020-06-28] MEDS: APIXABAN 5 MG TABLET PO SCH ×2 (09:27→21:49)
[2020-06-28] MEDS: LISINOPRIL 5 MG TABLET PO SCH (09:27)
[2020-06-28] MEDS: FOLIC ACID 1 MG TABLET (FP) PO SCH (09:27)
[2020-06-28] MEDS: FUROSEMIDE 20 MG TABLET (FP) PO SCH (09:27)
[2020-06-28] MEDS: RANOLAZINE E.R. 500 MG TABLET (FP) PO SCH ×2 (09:27→21:51)
[2020-06-28] MEDS: POTASSIUM CHLORIDE TABS 10 MEQ TABLET.ER (FP) PO SCH (09:27)
[2020-06-28] MEDS: MAG HYDROX/AL HYDROX/SIMETH 30 ML UNIT-DOSE CUP PO PRN ×2 (09:43→21:52)
[2020-06-28] MEDS: ATORVASTATIN CA 40 MG TABLET (FP) PO SCH (21:49)
[2020-06-28] MEDS: ISOSORBIDE MONONITRATE 60 MG TAB.SR.24H (FP) PO SCH (21:49)
[2020-06-28] MEDS: SENNOSIDES 8.6MG TABLET (FP) PO SCH (21:51)
[2020-06-28] MEDS: ACETAMINOPHEN 500 MG TABLET (FP) PO PRN (21:54)
[2020-06-29] MEDS: POLYETHYLENE GLYCOL 3350 119 GM BTL PO SCH (05:55)
[2020-06-29] MEDS: SIMETHICONE 80 MG TAB.CHEW (FP) PO PRN (10:13)
[2020-06-29] MEDS: ASPIRIN 81 MG CHEWABLE TABLETS PO SCH (10:14)
[2020-06-29] MEDS: FOLIC ACID 1 MG TABLET (FP) PO SCH (10:14)
[2020-06-29] MEDS: LISINOPRIL 5 MG TABLET PO SCH (10:14)
[2020-06-29] MEDS: APIXABAN 5 MG TABLET PO SCH (10:14)
[2020-06-29] MEDS: ALLOPURINOL 100 MG TABLET (FP) PO SCH (10:14)
[2020-06-29] MEDS: POTASSIUM CHLORIDE TABS 10 MEQ TABLET.ER (FP) PO SCH (10:14)
[2020-06-29] MEDS: FUROSEMIDE 20 MG TABLET (FP) PO SCH (10:14)
[2020-06-29] MEDS: PANTOPRAZOLE 40 MG TABLET PO SCH (10:14)
[2020-06-29] MEDS: RANOLAZINE E.R. 500 MG TABLET (FP) PO SCH (10:14)
[2020-06-29 12:39] VITALS: BP 123/73; PULSE 48; TEMP 98
== END 2020-06-29 13:56 | disposition home or self-care (01) | DRG 436 ==
LOC: JER 16:01 → JERBED 21:08 → J4S 06-23 03:44
PROVIDERS: ADMIT Hospitalist; ATTEND Internal Medicine
DX: C24.1 Malignant neoplasm of ampulla of Vater (principal); N20.1 Calculus of ureter; I50.32 Chronic diastolic (congestive) heart failure; K56.41 Fecal impaction; I25.119 Atherosclerotic heart disease of native coronary artery with unspecified angina pectoris; R00.1 Bradycardia, unspecified; N40.0 Benign prostatic hyperplasia without lower urinary tract symptoms; I11.0 Hypertensive heart disease with heart failure; I48.0 Paroxysmal atrial fibrillation; I73.9 Peripheral vascular disease, unspecified; E66.9 Obesity, unspecified; Z68.30 Body mass index [BMI] 30.0-30.9, adult; Z95.1 Presence of aortocoronary bypass graft; Z95.5 Presence of coronary angioplasty implant and graft; R07.89 Other chest pain; E78.5 Hyperlipidemia, unspecified; R59.0 Localized enlarged lymph nodes
CPT/HCPCS: 36415; 71045-TC-FY; 74019-TC-FY; 74176-TC; 80048; 80053; 80061; 82105; 82150; 82550; 82977; 83036; 83690; 83721; 83880; 84439; 84484; 85025; 86140; 86301; 87077; 87081; 93005; 93010; 93306-TC; 99284-25; C9803; U0003

== ENCOUNTER 2020-08-13 16:27 | Inpatient (IN) | payer OTHER, MEDICARE ==
[2020-08-13 16:37] VITALS: BMI 27.0
[2020-08-13] MEDS ORDERED: ACETAMINOPHEN 1000 MG/100 ML VIAL (NON FORMULARY) IVPB ONE (17:23)
[2020-08-13] MEDS ORDERED: MAG HYDROX/AL HYDROX/SIMETH -MYLANTA- ORAL SUSPENSION PO ONE (17:23)
[2020-08-13] MEDS ORDERED: FAMOTIDINE 20 MG/50 ML IVPB 20 MG/50 ML MG IVPB ONE ×2 (17:23→17:37)
[2020-08-13] MEDS ORDERED: ACETAMINOPHEN INJECTION 100 ML IVPB ONE (17:37)
[2020-08-13] MEDS ORDERED: MAG HYDROX/AL HYDROX/SIMETH 30 ML UNIT-DOSE CUP ONE (17:37)
[2020-08-13 17:57] LABS: BASO % 0.5 % (0-2.0); EOS % 0.5 % (0-4.5); HEMATOCRIT 29.8 % (35.4-49); HEMOGLOBIN 10.1 GM/dL (11.7-16.9); LYMPH % 17.9 % (8-40); MCH 32.2 pg (25.7-33.7); MCHC 33.8 g/dl (32.0-35.9); MEAN CELL VOLUME 95.2 fl (80-96); MEAN PLT VOLUME 8.8 fl (7.5-11.1); MONO % 12.9 % (3.8-10.2); NEUT % 68.2 % (42.8-82.8); PLATELET COUNT 156 K/MM3 (134-434); RBC 3.13 M/mm3 (4.00-5.60); RDW 14.9 % (11.9-15.9); WHITE BLOOD COUNT 4.7 K/mm3 (4.0-10.0)
[2020-08-13 18:05] LABS: INR 2.19 (0.83-1.09); PROTHROMBIN TIME (PATIENT) 25.9 SEC (9.7-13.0)
[2020-08-13 18:08] LABS: ACTIVATED PTT 34.5 SECONDS (25.2-36.5)
[2020-08-13 18:15] LABS: CHLORIDE 103 mmol/L (98-107); SODIUM 134 mmol/L (136-145)
[2020-08-13 18:17] LABS: CALCIUM 8.8 mg/dL (8.5-10.1)
[2020-08-13 18:18] LABS: ALBUMIN 2.9 g/dl (3.4-5.0); ANION GAP 3 MMOL/L (8-16); CO2 28 mmol/L (21-32); GLUCOSE,RANDOM 110 mg/dL (74-106); MAGNESIUM 2.7 mg/dL (1.8-2.4)
[2020-08-13 18:21] LABS: CREATININE 1.2 mg/dL (0.55-1.3); SGOT/AST 35 U/L (15-37); SGPT/ALT 68 U/L (13-61)
[2020-08-13 18:22] LABS: BILIRUBIN,TOTAL 0.6 mg/dL (0.2-1)
[2020-08-13 18:23] LABS: TOT PROT 5.8 g/dl (6.4-8.2)
[2020-08-13 18:24] LABS: ALK PHOS 282 U/L (45-117)
[2020-08-13 20:02] LABS: ANISOCYTOSIS 1+; MACROCYTOSIS 0; OVALOCYTE 1+; PLATELET ESTIMATE NORMAL; TOXIC GRANULATION 2+
[2020-08-13 21:58] LABS: CHLORIDE 104 mmol/L (98-107); SODIUM 133 mmol/L (136-145)
[2020-08-13 22:00] LABS: ANION GAP 4 MMOL/L (8-16); CALCIUM 8.3 mg/dL (8.5-10.1); CO2 26 mmol/L (21-32); GLUCOSE,RANDOM 97 mg/dL (74-106); LIPASE 17 U/L (73-393)
[2020-08-13 22:03] LABS: CREATININE 1.1 mg/dL (0.55-1.3)
[2020-08-13 22:08] LABS: N-TERMINAL BNP 905.6 pg/ml (5-450)
[2020-08-13] MEDS ORDERED: MAG HYDROX/AL HYDROX/SIMETH 30 ML UNIT-DOSE CUP PO ONE (22:57)
[2020-08-14] MEDS ORDERED: NITROGLYCERIN SUBLINGUAL 1/150 0.4 MG TAB SL PRN (02:06)
[2020-08-14] MEDS ORDERED: MORPHINE SULFATE 2 MG/ML VIAL IVPUSH ONE (02:37)
[2020-08-14] MEDS ORDERED: MORPHINE SULFATE 2 MG/ML VIAL ONE (02:51)
[2020-08-14 03:00] LABS: EPI CELLS 10 /uL (0-25.1); HYALINE CASTS 2 /uL (0-3.1); PH,URINE 8.5 (5.0-8.0); URINE APPEARANCE CLEAR; URINE BACTERIA 10 /uL (0-1359); URINE BILIRUBIN NEGATIVE (NEGATIVE); URINE COLOR YELLOW; URINE GLUCOSE (UA) NEGATIVE (NEGATIVE); URINE KETONE NEGATIVE (NEGATIVE); URINE LEUK ESTERASE NEGATIVE (NEGATIVE); URINE NITRITE NEGATIVE (NEGATIVE); URINE PROTEIN NEGATIVE (NEGATIVE); URINE RBC 21 /uL (0-23.9); URINE UROBILINOGEN 0.2 mg/dL (0.2-1.0); URINE WBC 28 /uL (0-25.8)
[2020-08-14] MEDS ORDERED: PANTOPRAZOLE 40 MG TABLET ONE (10:34)
[2020-08-14] MEDS ORDERED: ASPIRIN 81 MG CHEWABLE TABLETS ONE (10:34)
[2020-08-14] MEDS ORDERED: APIXABAN 5 MG TABLET ONE (10:34)
[2020-08-14] MEDS ORDERED: FOLIC ACID 1 MG TABLET (FP) ONE (10:35)
[2020-08-14] MEDS ORDERED: PT OWN MED DRAWER 7, Y5N ONE (10:35)
[2020-08-14] MEDS: FOLIC ACID 1 MG TABLET (FP) PO SCH (10:48)
[2020-08-14] MEDS: ALLOPURINOL 100 MG TABLET (FP) PO SCH (10:48)
[2020-08-14] MEDS: PANTOPRAZOLE 40 MG TABLET PO SCH (10:48)
[2020-08-14] MEDS: ASPIRIN 81 MG CHEWABLE TABLETS PO SCH (10:48)
[2020-08-14] MEDS: FUROSEMIDE 20 MG TABLET (FP) PO SCH (10:48)
[2020-08-14] MEDS: APIXABAN 5 MG TABLET PO SCH ×2 (10:48→21:31)
[2020-08-14] MEDS: RANOLAZINE E.R. 500 MG TABLET (FP) PO SCH ×2 (12:30→21:31)
[2020-08-14] MEDS: SIMETHICONE 80 MG TAB.CHEW (FP) PO PRN ×2 (12:35→21:30)
[2020-08-14] MEDS: POLYETHYLENE GLYCOL 3350 119 GM BTL PO SCH ×2 (14:32→21:40)
[2020-08-14] MEDS ORDERED: SODIUM CHLORIDE NASAL SPRAY 44 ML BOTTLE NS PRN (20:51)
[2020-08-14] MEDS ORDERED: ACETAMINOPHEN 325 MG TABLET (FP) PO ONE (20:52)
[2020-08-14] MEDS: ISOSORBIDE MONONITRATE 60 MG TAB.SR.24H (FP) PO SCH (21:31)
[2020-08-14] MEDS: SENNOSIDES 8.6MG TABLET (FP) PO SCH (21:31)
[2020-08-15] MEDS: SIMETHICONE 80 MG TAB.CHEW (FP) PO PRN ×3 (02:45→20:37)
[2020-08-15] MEDS: POLYETHYLENE GLYCOL 3350 119 GM BTL PO SCH ×3 (06:08→22:19)
[2020-08-15 08:11] LABS: ALBUMIN 2.7 g/dl (3.4-5.0); BLOOD UREA NITROGEN 24.2 mg/dL (7-18); CALCIUM 8.8 mg/dL (8.5-10.1)
[2020-08-15 08:14] LABS: BILIRUBIN,DIRECT 0.3 mg/dL (0.0-0.2); BILIRUBIN,TOTAL 0.5 mg/dL (0.2-1); CREATININE 1.2 mg/dL (0.55-1.3); TOT PROT 5.4 g/dl (6.4-8.2)
[2020-08-15 08:16] LABS: BASO % 0.5 % (0-2.0); EOS % 0.3 % (0-4.5); HEMATOCRIT 29.8 % (35.4-49); HEMOGLOBIN 10.1 GM/dL (11.7-16.9); LYMPH % 7.3 % (8-40); MCH 32.2 pg (25.7-33.7); MCHC 33.9 g/dl (32.0-35.9); MEAN PLT VOLUME 9.4 fl (7.5-11.1); MONO % 3.7 % (3.8-10.2); NEUT % 88.2 % (42.8-82.8); PLATELET COUNT 118 K/MM3 (134-434); RBC 3.14 M/mm3 (4.00-5.60); RDW 14.8 % (11.9-15.9)
[2020-08-15] MEDS: ASPIRIN 81 MG CHEWABLE TABLETS PO SCH (09:24)
[2020-08-15] MEDS: FUROSEMIDE 20 MG TABLET (FP) PO SCH (09:24)
[2020-08-15] MEDS: RANOLAZINE E.R. 500 MG TABLET (FP) PO SCH ×2 (09:24→22:18)
[2020-08-15] MEDS: FOLIC ACID 1 MG TABLET (FP) PO SCH (09:24)
[2020-08-15] MEDS: APIXABAN 5 MG TABLET PO SCH ×2 (09:24→22:18)
[2020-08-15] MEDS: PANTOPRAZOLE 40 MG TABLET PO SCH (09:25)
[2020-08-15] MEDS: ALLOPURINOL 100 MG TABLET (FP) PO SCH (09:25)
[2020-08-15 09:47] LABS: ANISOCYTOSIS 0; MACROCYTOSIS 0; PLATELET ESTIMATE DECREASED
[2020-08-15 10:28] LABS: BASO % 0.4 % (0-2.0); EOS % 0.3 % (0-4.5); HEMATOCRIT 31.5 % (35.4-49); HEMOGLOBIN 10.6 GM/dL (11.7-16.9); LYMPH % 6.7 % (8-40); MCH 31.9 pg (25.7-33.7); MCHC 33.6 g/dl (32.0-35.9); MEAN CELL VOLUME 94.9 fl (80-96); MONO % 6.1 % (3.8-10.2); NEUT % 86.5 % (42.8-82.8); PLATELET COUNT 130 K/MM3 (134-434); RBC 3.32 M/mm3 (4.00-5.60); RDW 14.8 % (11.9-15.9); WHITE BLOOD COUNT 23.3 K/mm3 (4.0-10.0)
[2020-08-15] MEDS ORDERED: PIPERACILLIN/TAZOB 3.375 GM 3.375 GM in DEXTROSE 5%-WATER - 50 ML IVPB ONE (12:15)
[2020-08-15] MEDS ORDERED: DEXTROSE 5%-WATER - 50 ML IVPB ONE ×2 (12:54→16:56)
[2020-08-15] MEDS ORDERED: PIPERACILLIN/TAZOBACTAM 3.375 GM VIAL IVPB ONE ×2 (12:54→16:55)
[2020-08-15 13:22] LABS: ANISOCYTOSIS 1+; MACROCYTOSIS 1+; PLATELET ESTIMATE DECREASED
[2020-08-15] MEDS: VANCOMYCIN/WATER BAGS 1,250 MG/250 ML BAG IVPB SCH (15:21)
[2020-08-15] MEDS: NYSTATIN 500,000 UNITS/5 ML SUSPENSION PO SCH ×2 (17:56→23:30)
[2020-08-15] MEDS: PIPERACILLIN/TAZOB 3.375 GM 3.375 GM in DEXTROSE 5%-WATER - 50 ML IVPB SCH (17:56)
[2020-08-15] MEDS: ISOSORBIDE MONONITRATE 60 MG TAB.SR.24H (FP) PO SCH (22:18)
[2020-08-15] MEDS: ZOLPIDEM TARTRATE 5 MG TABLET PO PRN (22:18)
[2020-08-15] MEDS: SENNOSIDES 8.6MG TABLET (FP) PO SCH (22:19)
[2020-08-15] MEDS ORDERED: ACETAMINOPHEN 325 MG TABLET (FP) ONE (22:28)
[2020-08-15] MEDS: ACETAMINOPHEN 325 MG TABLET (FP) PO PRN (23:30)
[2020-08-16] MEDS ORDERED: DEXTROSE 5%-WATER - 50 ML IVPB ONE ×3 (02:46→16:19)
[2020-08-16] MEDS ORDERED: PIPERACILLIN/TAZOBACTAM 3.375 GM VIAL IVPB ONE ×3 (02:46→16:19)
[2020-08-16] MEDS: PIPERACILLIN/TAZOB 3.375 GM 3.375 GM in DEXTROSE 5%-WATER - 50 ML IVPB SCH ×3 (02:51→17:05)
[2020-08-16] MEDS: NYSTATIN 500,000 UNITS/5 ML SUSPENSION PO SCH ×4 (06:06→23:20)
[2020-08-16] MEDS: POLYETHYLENE GLYCOL 3350 119 GM BTL PO SCH ×3 (06:06→21:11)
[2020-08-16] MEDS: RANOLAZINE E.R. 500 MG TABLET (FP) PO SCH ×2 (09:23→21:08)
[2020-08-16] MEDS: APIXABAN 5 MG TABLET PO SCH ×2 (09:23→21:08)
[2020-08-16] MEDS: FUROSEMIDE 20 MG TABLET (FP) PO SCH (09:23)
[2020-08-16] MEDS: FOLIC ACID 1 MG TABLET (FP) PO SCH (09:23)
[2020-08-16] MEDS: ASPIRIN 81 MG CHEWABLE TABLETS PO SCH (09:23)
[2020-08-16] MEDS: ALLOPURINOL 100 MG TABLET (FP) PO SCH (09:23)
[2020-08-16] MEDS: PANTOPRAZOLE 40 MG TABLET PO SCH (09:23)
[2020-08-16 10:34] LABS: BASO % 0.5 % (0-2.0); EOS % 0.3 % (0-4.5); HEMATOCRIT 28.1 % (35.4-49); HEMOGLOBIN 9.2 GM/dL (11.7-16.9); LYMPH % 7.3 % (8-40); MCH 31.5 pg (25.7-33.7); MCHC 32.8 g/dl (32.0-35.9); MEAN PLT VOLUME 9.2 fl (7.5-11.1); MONO % 4.2 % (3.8-10.2); NEUT % 87.7 % (42.8-82.8); PLATELET COUNT 109 K/MM3 (134-434); RBC 2.92 M/mm3 (4.00-5.60); RDW 14.9 % (11.9-15.9); WHITE BLOOD COUNT 18.1 K/mm3 (4.0-10.0)
[2020-08-16 10:39] LABS: BLOOD UREA NITROGEN 23.7 mg/dL (7-18); CALCIUM 7.7 mg/dL (8.5-10.1)
[2020-08-16 10:43] LABS: CREATININE 1.2 mg/dL (0.55-1.3)
[2020-08-16 11:30] LABS: ANISOCYTOSIS 1+; MACROCYTOSIS 0; PLATELET ESTIMATE DECREASED
[2020-08-16] MEDS ORDERED: PT OWN MED DRAWER 7, Y5N ONE ×3 (13:43→14:33)
[2020-08-16] MEDS: VANCOMYCIN/WATER BAGS 1,250 MG/250 ML BAG IVPB SCH (14:34)
[2020-08-16] MEDS: SENNOSIDES 8.6MG TABLET (FP) PO SCH (21:08)
[2020-08-16] MEDS: ISOSORBIDE MONONITRATE 60 MG TAB.SR.24H (FP) PO SCH (21:08)
[2020-08-16] MEDS: SIMETHICONE 80 MG TAB.CHEW (FP) PO PRN (21:08)
[2020-08-16] MEDS: ZOLPIDEM TARTRATE 5 MG TABLET PO PRN (21:08)
[2020-08-16] MEDS: ACETAMINOPHEN 325 MG TABLET (FP) PO PRN (23:19)
[2020-08-17] MEDS ORDERED: PIPERACILLIN/TAZOBACTAM 3.375 GM VIAL IVPB ONE ×3 (00:52→18:16)
[2020-08-17] MEDS ORDERED: DEXTROSE 5%-WATER - 50 ML IVPB ONE ×3 (00:53→18:16)
[2020-08-17] MEDS: PIPERACILLIN/TAZOB 3.375 GM 3.375 GM in DEXTROSE 5%-WATER - 50 ML IVPB SCH ×3 (01:12→18:22)
[2020-08-17] MEDS: SIMETHICONE 80 MG TAB.CHEW (FP) PO PRN ×3 (03:00→21:45)
[2020-08-17] MEDS: NYSTATIN 500,000 UNITS/5 ML SUSPENSION PO SCH ×3 (05:30→18:22)
[2020-08-17] MEDS: POLYETHYLENE GLYCOL 3350 119 GM BTL PO SCH ×3 (05:30→21:53)
[2020-08-17 07:16] LABS: BASO % 0.3 % (0-2.0); EOS % 0.4 % (0-4.5); HEMATOCRIT 27.1 % (35.4-49); HEMOGLOBIN 8.9 GM/dL (11.7-16.9); LYMPH % 6.6 % (8-40); MCH 31.4 pg (25.7-33.7); MCHC 32.7 g/dl (32.0-35.9); MEAN CELL VOLUME 96.1 fl (80-96); MEAN PLT VOLUME 8.9 fl (7.5-11.1); MONO % 6.2 % (3.8-10.2); NEUT % 86.5 % (42.8-82.8); PLATELET COUNT 119 K/MM3 (134-434); RBC 2.82 M/mm3 (4.00-5.60); RDW 15.1 % (11.9-15.9); WHITE BLOOD COUNT 19.7 K/mm3 (4.0-10.0)
[2020-08-17 07:43] LABS: BLOOD UREA NITROGEN 22.9 mg/dL (7-18); CALCIUM 7.9 mg/dL (8.5-10.1)
[2020-08-17 07:47] LABS: CREATININE 1.1 mg/dL (0.55-1.3)
[2020-08-17] MEDS: FOLIC ACID 1 MG TABLET (FP) PO SCH (09:48)
[2020-08-17] MEDS: RANOLAZINE E.R. 500 MG TABLET (FP) PO SCH ×2 (09:48→21:44)
[2020-08-17] MEDS: ASPIRIN 81 MG CHEWABLE TABLETS PO SCH (09:48)
[2020-08-17] MEDS: FUROSEMIDE 20 MG TABLET (FP) PO SCH (09:48)
[2020-08-17] MEDS: PANTOPRAZOLE 40 MG TABLET PO SCH (09:48)
[2020-08-17] MEDS: ALLOPURINOL 100 MG TABLET (FP) PO SCH (09:48)
[2020-08-17] MEDS: APIXABAN 5 MG TABLET PO SCH ×2 (09:48→21:44)
[2020-08-17] MEDS: hydrALAZINE HCL 10 MG TABLET PO SCH (10:26)
[2020-08-17 10:33] LABS: ERYTHROCYTE SEDIMENTATION RATE 15 mm/hr (0-20)
[2020-08-17 11:12] LABS: ANISOCYTOSIS 1+; MACROCYTOSIS 0; OVALOCYTE 1+; PLATELET ESTIMATE DECREASED
[2020-08-17] MEDS: LACTOBACILLUS ACIDOPHILUS 1 TABLET PO SCH (11:40)
[2020-08-17] MEDS ORDERED: PT OWN MED DRAWER 7, Y5N ONE (13:57)
[2020-08-17] MEDS: VANCOMYCIN/WATER BAGS 1,250 MG/250 ML BAG IVPB SCH (14:12)
[2020-08-17] MEDS ORDERED: morphine SULFATE 4 MG/ML VIAL IVPUSH ONE (14:32)
[2020-08-17] MEDS: ISOSORBIDE MONONITRATE 60 MG TAB.SR.24H (FP) PO SCH (21:44)
[2020-08-17] MEDS: ACETAMINOPHEN 325 MG TABLET (FP) PO PRN (21:44)
[2020-08-17] MEDS: SENNOSIDES 8.6MG TABLET (FP) PO SCH (21:44)
[2020-08-17] MEDS: ZOLPIDEM TARTRATE 5 MG TABLET PO PRN (21:44)
[2020-08-18] MEDS ORDERED: PIPERACILLIN/TAZOBACTAM 3.375 GM VIAL IVPB ONE ×3 (01:05→17:57)
[2020-08-18] MEDS ORDERED: DEXTROSE 5%-WATER - 50 ML IVPB ONE ×3 (01:05→17:58)
[2020-08-18] MEDS: PIPERACILLIN/TAZOB 3.375 GM 3.375 GM in DEXTROSE 5%-WATER - 50 ML IVPB SCH ×3 (01:08→18:11)
[2020-08-18] MEDS: NYSTATIN 500,000 UNITS/5 ML SUSPENSION PO SCH ×4 (01:08→18:11)
[2020-08-18] MEDS: POLYETHYLENE GLYCOL 3350 119 GM BTL PO SCH ×3 (06:10→21:15)
[2020-08-18] MEDS: SIMETHICONE 80 MG TAB.CHEW (FP) PO PRN (06:10)
[2020-08-18 07:24] LABS: BASO % 0.4 % (0-2.0); EOS % 0.6 % (0-4.5); HEMATOCRIT 27.3 % (35.4-49); HEMOGLOBIN 8.9 GM/dL (11.7-16.9); LYMPH % 7.3 % (8-40); MCH 31.7 pg (25.7-33.7); MCHC 32.7 g/dl (32.0-35.9); MEAN CELL VOLUME 96.9 fl (80-96); MEAN PLT VOLUME 8.9 fl (7.5-11.1); MONO % 3.8 % (3.8-10.2); NEUT % 87.9 % (42.8-82.8); PLATELET COUNT 123 K/MM3 (134-434); RBC 2.82 M/mm3 (4.00-5.60); RDW 14.9 % (11.9-15.9); WHITE BLOOD COUNT 16.4 K/mm3 (4.0-10.0)
[2020-08-18 07:49] LABS: BLOOD UREA NITROGEN 20.6 mg/dL (7-18)
[2020-08-18 07:52] LABS: CREATININE 1.1 mg/dL (0.55-1.3)
[2020-08-18 09:05] LABS: ERYTHROCYTE SEDIMENTATION RATE 17 mm/hr (0-20)
[2020-08-18] MEDS: PANTOPRAZOLE 40 MG TABLET PO SCH (09:09)
[2020-08-18] MEDS: APIXABAN 5 MG TABLET PO SCH ×2 (09:09→21:14)
[2020-08-18] MEDS: LACTOBACILLUS ACIDOPHILUS 1 TABLET PO SCH (09:09)
[2020-08-18] MEDS: ASPIRIN 81 MG CHEWABLE TABLETS PO SCH (09:09)
[2020-08-18] MEDS: FUROSEMIDE 20 MG TABLET (FP) PO SCH (09:09)
[2020-08-18] MEDS: FOLIC ACID 1 MG TABLET (FP) PO SCH (09:09)
[2020-08-18] MEDS: RANOLAZINE E.R. 500 MG TABLET (FP) PO SCH ×2 (09:09→21:14)
[2020-08-18] MEDS: hydrALAZINE HCL 10 MG TABLET PO SCH (09:09)
[2020-08-18] MEDS: ALLOPURINOL 100 MG TABLET (FP) PO SCH (09:09)
[2020-08-18 09:35] LABS: ANISOCYTOSIS 0; MACROCYTOSIS 0; OVALOCYTE 1+; PLATELET ESTIMATE DECREASED
[2020-08-18] MEDS: ZOLPIDEM TARTRATE 5 MG TABLET PO PRN (20:27)
[2020-08-18] MEDS: ISOSORBIDE MONONITRATE 60 MG TAB.SR.24H (FP) PO SCH (21:14)
[2020-08-18] MEDS: SENNOSIDES 8.6MG TABLET (FP) PO SCH (21:14)
[2020-08-19] MEDS: NYSTATIN 500,000 UNITS/5 ML SUSPENSION PO SCH ×5 (00:12→23:32)
[2020-08-19] MEDS ORDERED: PIPERACILLIN/TAZOBACTAM 3.375 GM VIAL IVPB ONE ×3 (00:36→17:13)
[2020-08-19] MEDS ORDERED: DEXTROSE 5%-WATER - 50 ML IVPB ONE ×3 (00:37→17:14)
[2020-08-19] MEDS: PIPERACILLIN/TAZOB 3.375 GM 3.375 GM in DEXTROSE 5%-WATER - 50 ML IVPB SCH ×3 (02:02→17:22)
[2020-08-19] MEDS: POLYETHYLENE GLYCOL 3350 119 GM BTL PO SCH ×3 (06:12→21:10)
[2020-08-19 07:42] LABS: BASO % 0.4 % (0-2.0); EOS % 0.9 % (0-4.5); HEMATOCRIT 24.5 % (35.4-49); HEMOGLOBIN 8.4 GM/dL (11.7-16.9); LYMPH % 8.9 % (8-40); MCH 32.8 pg (25.7-33.7); MCHC 34.5 g/dl (32.0-35.9); MEAN CELL VOLUME 95.1 fl (80-96); MEAN PLT VOLUME 8.3 fl (7.5-11.1); MONO % 9.6 % (3.8-10.2); NEUT % 80.2 % (42.8-82.8); PLATELET COUNT 124 K/MM3 (134-434); RBC 2.57 M/mm3 (4.00-5.60); RDW 14.8 % (11.9-15.9); WHITE BLOOD COUNT 11.9 K/mm3 (4.0-10.0)
[2020-08-19 08:00] LABS: CALCIUM 7.7 mg/dL (8.5-10.1)
[2020-08-19 08:01] LABS: BLOOD UREA NITROGEN 21.5 mg/dL (7-18)
[2020-08-19 08:04] LABS: CREATININE 1.1 mg/dL (0.55-1.3)
[2020-08-19] MEDS ORDERED: TAMSULOSIN HCL 0.4 MG CAP PO SCH (08:30)
[2020-08-19] MEDS ORDERED: PT OWN MED DRAWER 7, Y5N ONE (09:13)
[2020-08-19] MEDS: RANOLAZINE E.R. 500 MG TABLET (FP) PO SCH ×2 (09:20→21:09)
[2020-08-19] MEDS: APIXABAN 5 MG TABLET PO SCH ×2 (09:20→21:09)
[2020-08-19] MEDS: PANTOPRAZOLE 40 MG TABLET PO SCH (09:20)
[2020-08-19] MEDS: FOLIC ACID 1 MG TABLET (FP) PO SCH (09:20)
[2020-08-19] MEDS: hydrALAZINE HCL 10 MG TABLET PO SCH (09:20)
[2020-08-19] MEDS: ASPIRIN 81 MG CHEWABLE TABLETS PO SCH (09:20)
[2020-08-19] MEDS: LACTOBACILLUS ACIDOPHILUS 1 TABLET PO SCH (09:20)
[2020-08-19] MEDS: FUROSEMIDE 20 MG TABLET (FP) PO SCH (09:21)
[2020-08-19] MEDS: ALLOPURINOL 100 MG TABLET (FP) PO SCH (09:21)
[2020-08-19 10:44] LABS: ANISOCYTOSIS 0; HELMET CELLS 0; HOWELL-JOLLY BODIES 0; MACROCYTOSIS 0; OVALOCYTE 0; PLATELET ESTIMATE DECREASED; ROULEAU 0; SICKELED CELLS 0; TARGET CELLS 0; TEAR DROP CELLS 0; TOXIC GRANULATION 0
[2020-08-19] MEDS: TAMSULOSIN HCL 0.4 MG CAP PO SCH (16:04)
[2020-08-19] MEDS: ACETAMINOPHEN 325 MG TABLET (FP) PO PRN (19:43)
[2020-08-19] MEDS: SIMETHICONE 80 MG TAB.CHEW (FP) PO PRN (19:43)
[2020-08-19] MEDS: SENNOSIDES 8.6MG TABLET (FP) PO SCH (21:09)
[2020-08-19] MEDS: ISOSORBIDE MONONITRATE 60 MG TAB.SR.24H (FP) PO SCH (21:09)
[2020-08-19] MEDS ORDERED: ZOLPIDEM TARTRATE 5 MG TABLET PO ONE (22:15)
[2020-08-20] MEDS ORDERED: PIPERACILLIN/TAZOBACTAM 3.375 GM VIAL IVPB ONE ×3 (01:11→17:53)
[2020-08-20] MEDS ORDERED: DEXTROSE 5%-WATER - 50 ML IVPB ONE ×3 (01:11→17:53)
[2020-08-20] MEDS: PIPERACILLIN/TAZOB 3.375 GM 3.375 GM in DEXTROSE 5%-WATER - 50 ML IVPB SCH ×3 (01:17→18:02)
[2020-08-20] MEDS: SIMETHICONE 80 MG TAB.CHEW (FP) PO PRN ×2 (01:27→21:24)
[2020-08-20] MEDS: ACETAMINOPHEN 325 MG TABLET (FP) PO PRN ×2 (01:55→21:24)
[2020-08-20] MEDS: NYSTATIN 500,000 UNITS/5 ML SUSPENSION PO SCH ×4 (05:55→23:09)
[2020-08-20] MEDS: POLYETHYLENE GLYCOL 3350 119 GM BTL PO SCH ×3 (05:56→21:25)
[2020-08-20 07:45] LABS: BASO % 0.3 % (0-2.0); EOS % 1.5 % (0-4.5); HEMATOCRIT 24.8 % (35.4-49); HEMOGLOBIN 8.5 GM/dL (11.7-16.9); LYMPH % 9.8 % (8-40); MCH 32.8 pg (25.7-33.7); MCHC 34.2 g/dl (32.0-35.9); MEAN CELL VOLUME 96.1 fl (80-96); MEAN PLT VOLUME 8.2 fl (7.5-11.1); MONO % 10.7 % (3.8-10.2); NEUT % 77.7 % (42.8-82.8); PLATELET COUNT 124 K/MM3 (134-434); RBC 2.58 M/mm3 (4.00-5.60); WHITE BLOOD COUNT 9.8 K/mm3 (4.0-10.0)
[2020-08-20 07:55] LABS: INR 1.51 (0.83-1.09)
[2020-08-20 08:22] LABS: BLOOD UREA NITROGEN 21.7 mg/dL (7-18); CALCIUM 7.7 mg/dL (8.5-10.1)
[2020-08-20 08:26] LABS: IRON SERUM 78 ug/dL (50-175)
[2020-08-20 08:27] LABS: TOTAL IRON BINDING CAPACITY 250 ug/dL (250-450)
[2020-08-20 09:30] LABS: ANISOCYTOSIS 1+; MACROCYTOSIS 0; PLATELET ESTIMATE DECREASED
[2020-08-20] MEDS ORDERED: PT OWN MED DRAWER 7, Y5N ONE (10:20)
[2020-08-20] MEDS: FUROSEMIDE 20 MG TABLET (FP) PO SCH (10:25)
[2020-08-20] MEDS: ASPIRIN 81 MG CHEWABLE TABLETS PO SCH (10:25)
[2020-08-20] MEDS: PANTOPRAZOLE 40 MG TABLET PO SCH (10:25)
[2020-08-20] MEDS: RANOLAZINE E.R. 500 MG TABLET (FP) PO SCH ×2 (10:26→21:23)
[2020-08-20] MEDS: LACTOBACILLUS ACIDOPHILUS 1 TABLET PO SCH (10:26)
[2020-08-20] MEDS: FOLIC ACID 1 MG TABLET (FP) PO SCH (10:26)
[2020-08-20] MEDS: APIXABAN 5 MG TABLET PO SCH ×2 (10:26→21:23)
[2020-08-20] MEDS: hydrALAZINE HCL 10 MG TABLET PO SCH (10:26)
[2020-08-20] MEDS: ALLOPURINOL 100 MG TABLET (FP) PO SCH (10:26)
[2020-08-20] MEDS: TAMSULOSIN HCL 0.4 MG CAP PO SCH (10:26)
[2020-08-20] MEDS: ISOSORBIDE MONONITRATE 60 MG TAB.SR.24H (FP) PO SCH (21:23)
[2020-08-20] MEDS: SENNOSIDES 8.6MG TABLET (FP) PO SCH (21:23)
[2020-08-20] MEDS: ZOLPIDEM TARTRATE 5 MG TABLET PO PRN (23:17)
[2020-08-21] MEDS ORDERED: PIPERACILLIN/TAZOBACTAM 3.375 GM VIAL IVPB ONE ×3 (00:51→14:44)
[2020-08-21] MEDS ORDERED: DEXTROSE 5%-WATER - 50 ML IVPB ONE ×3 (00:51→14:45)
[2020-08-21] MEDS: PIPERACILLIN/TAZOB 3.375 GM 3.375 GM in DEXTROSE 5%-WATER - 50 ML IVPB SCH ×3 (01:09→17:09)
[2020-08-21] MEDS: NYSTATIN 500,000 UNITS/5 ML SUSPENSION PO SCH ×3 (05:03→17:09)
[2020-08-21] MEDS: POLYETHYLENE GLYCOL 3350 119 GM BTL PO SCH ×3 (05:03→21:54)
[2020-08-21 08:31] LABS: BASO % 0.6 % (0-2.0); EOS % 1.9 % (0-4.5); HEMATOCRIT 24.1 % (35.4-49); HEMOGLOBIN 8.3 GM/dL (11.7-16.9); LYMPH % 9.4 % (8-40); MCH 33.1 pg (25.7-33.7); MCHC 34.5 g/dl (32.0-35.9); MEAN CELL VOLUME 95.8 fl (80-96); MEAN PLT VOLUME 8.2 fl (7.5-11.1); NEUT % 77.1 % (42.8-82.8); PLATELET COUNT 145 K/MM3 (134-434); RBC 2.52 M/mm3 (4.00-5.60); RDW 15.1 % (11.9-15.9); WHITE BLOOD COUNT 9.4 K/mm3 (4.0-10.0)
[2020-08-21] MEDS: TAMSULOSIN HCL 0.4 MG CAP PO SCH (08:35)
[2020-08-21 08:46] LABS: CALCIUM 8.3 mg/dL (8.5-10.1)
[2020-08-21 08:47] LABS: BLOOD UREA NITROGEN 23.2 mg/dL (7-18)
[2020-08-21] MEDS: PANTOPRAZOLE 40 MG TABLET PO SCH (10:05)
[2020-08-21] MEDS: LACTOBACILLUS ACIDOPHILUS 1 TABLET PO SCH (10:05)
[2020-08-21] MEDS: ALLOPURINOL 100 MG TABLET (FP) PO SCH (10:05)
[2020-08-21] MEDS: FOLIC ACID 1 MG TABLET (FP) PO SCH (10:05)
[2020-08-21] MEDS: RANOLAZINE E.R. 500 MG TABLET (FP) PO SCH ×2 (10:05→21:53)
[2020-08-21] MEDS: APIXABAN 5 MG TABLET PO SCH ×2 (10:05→21:53)
[2020-08-21] MEDS: ASPIRIN 81 MG CHEWABLE TABLETS PO SCH (10:05)
[2020-08-21] MEDS: FUROSEMIDE 20 MG TABLET (FP) PO SCH (10:06)
[2020-08-21] MEDS: hydrALAZINE HCL 10 MG TABLET PO SCH (11:00)
[2020-08-21] MEDS: ISOSORBIDE MONONITRATE 60 MG TAB.SR.24H (FP) PO SCH (21:53)
[2020-08-21] MEDS: SENNOSIDES 8.6MG TABLET (FP) PO SCH (21:53)
[2020-08-21] MEDS: ZOLPIDEM TARTRATE 5 MG TABLET PO PRN (21:53)
[2020-08-22] MEDS ORDERED: PIPERACILLIN/TAZOBACTAM 3.375 GM VIAL IVPB ONE ×3 (00:02→17:10)
[2020-08-22] MEDS ORDERED: DEXTROSE 5%-WATER - 50 ML IVPB ONE ×3 (00:02→17:10)
[2020-08-22] MEDS: SIMETHICONE 80 MG TAB.CHEW (FP) PO PRN ×4 (00:13→21:00)
[2020-08-22] MEDS: NYSTATIN 500,000 UNITS/5 ML SUSPENSION PO SCH ×4 (00:14→17:17)
[2020-08-22] MEDS: PIPERACILLIN/TAZOB 3.375 GM 3.375 GM in DEXTROSE 5%-WATER - 50 ML IVPB SCH ×3 (01:58→17:17)
[2020-08-22] MEDS: ACETAMINOPHEN 325 MG TABLET (FP) PO PRN ×3 (03:21→21:00)
[2020-08-22] MEDS: POLYETHYLENE GLYCOL 3350 119 GM BTL PO SCH ×3 (05:44→21:02)
[2020-08-22] MEDS ORDERED: PT OWN MED DRAWER 7, Y5N ONE ×2 (09:23→10:15)
[2020-08-22 09:31] LABS: BASO % 0.7 % (0-2.0); EOS % 1.6 % (0-4.5); HEMATOCRIT 26.1 % (35.4-49); HEMOGLOBIN 8.8 GM/dL (11.7-16.9); LYMPH % 9.4 % (8-40); MCH 32.8 pg (25.7-33.7); MCHC 33.6 g/dl (32.0-35.9); MEAN CELL VOLUME 97.6 fl (80-96); MEAN PLT VOLUME 8.2 fl (7.5-11.1); MONO % 10.4 % (3.8-10.2); NEUT % 77.9 % (42.8-82.8); PLATELET COUNT 197 K/MM3 (134-434); RBC 2.68 M/mm3 (4.00-5.60); RDW 15.6 % (11.9-15.9); WHITE BLOOD COUNT 8.6 K/mm3 (4.0-10.0)
[2020-08-22 09:47] LABS: CALCIUM 8.2 mg/dL (8.5-10.1)
[2020-08-22 09:51] LABS: CREATININE 1.2 mg/dL (0.55-1.3)
[2020-08-22] MEDS: ALLOPURINOL 100 MG TABLET (FP) PO SCH (10:20)
[2020-08-22] MEDS: LACTOBACILLUS ACIDOPHILUS 1 TABLET PO SCH (10:20)
[2020-08-22] MEDS: APIXABAN 5 MG TABLET PO SCH ×2 (10:20→21:01)
[2020-08-22] MEDS: TAMSULOSIN HCL 0.4 MG CAP PO SCH (10:20)
[2020-08-22] MEDS: PANTOPRAZOLE 40 MG TABLET PO SCH (10:20)
[2020-08-22] MEDS: FUROSEMIDE 20 MG TABLET (FP) PO SCH (10:20)
[2020-08-22] MEDS: RANOLAZINE E.R. 500 MG TABLET (FP) PO SCH ×2 (10:20→21:00)
[2020-08-22] MEDS: FOLIC ACID 1 MG TABLET (FP) PO SCH (10:20)
[2020-08-22] MEDS: hydrALAZINE HCL 10 MG TABLET PO SCH (10:25)
[2020-08-22] MEDS: ASPIRIN 81 MG CHEWABLE TABLETS PO SCH (10:25)
[2020-08-22 11:08] LABS: ANISOCYTOSIS 0; HELMET CELLS 0; HOWELL-JOLLY BODIES 0; MACROCYTOSIS 0; OVALOCYTE 0; PLATELET ESTIMATE NORMAL; ROULEAU 0; SICKELED CELLS 0; TARGET CELLS 0; TEAR DROP CELLS 0; TOXIC GRANULATION 0
[2020-08-22] MEDS: ISOSORBIDE MONONITRATE 60 MG TAB.SR.24H (FP) PO SCH (21:00)
[2020-08-22] MEDS: SENNOSIDES 8.6MG TABLET (FP) PO SCH (21:00)
[2020-08-22] MEDS: ZOLPIDEM TARTRATE 5 MG TABLET PO PRN (21:01)
[2020-08-23] MEDS: NYSTATIN 500,000 UNITS/5 ML SUSPENSION PO SCH ×4 (00:01→17:43)
[2020-08-23] MEDS ORDERED: PIPERACILLIN/TAZOBACTAM 3.375 GM VIAL IVPB ONE ×2 (00:57→09:44)
[2020-08-23] MEDS ORDERED: DEXTROSE 5%-WATER - 50 ML IVPB ONE ×2 (00:57→09:45)
[2020-08-23] MEDS: PIPERACILLIN/TAZOB 3.375 GM 3.375 GM in DEXTROSE 5%-WATER - 50 ML IVPB SCH ×2 (01:07→09:48)
[2020-08-23] MEDS: POLYETHYLENE GLYCOL 3350 119 GM BTL PO SCH ×3 (05:22→21:58)
[2020-08-23 08:24] LABS: EOS % 1.5 % (0-4.5); HEMATOCRIT 22.9 % (35.4-49); LYMPH % 10.6 % (8-40); MCH 33.9 pg (25.7-33.7); MEAN CELL VOLUME 96.9 fl (80-96); MEAN PLT VOLUME 7.9 fl (7.5-11.1); MONO % 14.1 % (3.8-10.2); NEUT % 72.8 % (42.8-82.8); PLATELET COUNT 227 K/MM3 (134-434); RBC 2.37 M/mm3 (4.00-5.60); RDW 15.2 % (11.9-15.9); WHITE BLOOD COUNT 8.1 K/mm3 (4.0-10.0)
[2020-08-23 08:38] LABS: CALCIUM 7.8 mg/dL (8.5-10.1)
[2020-08-23 08:39] LABS: BLOOD UREA NITROGEN 28.6 mg/dL (7-18)
[2020-08-23 08:42] LABS: CREATININE 1.3 mg/dL (0.55-1.3)
[2020-08-23] MEDS: LACTOBACILLUS ACIDOPHILUS 1 TABLET PO SCH (09:48)
[2020-08-23] MEDS: FUROSEMIDE 20 MG TABLET (FP) PO SCH (09:48)
[2020-08-23] MEDS: RANOLAZINE E.R. 500 MG TABLET (FP) PO SCH ×2 (09:48→21:58)
[2020-08-23] MEDS: FOLIC ACID 1 MG TABLET (FP) PO SCH (09:48)
[2020-08-23] MEDS: TAMSULOSIN HCL 0.4 MG CAP PO SCH (09:48)
[2020-08-23] MEDS: PANTOPRAZOLE 40 MG TABLET PO SCH (09:48)
[2020-08-23] MEDS: ALLOPURINOL 100 MG TABLET (FP) PO SCH (09:48)
[2020-08-23] MEDS: ASPIRIN 81 MG CHEWABLE TABLETS PO SCH (09:48)
[2020-08-23] MEDS: APIXABAN 5 MG TABLET PO SCH ×2 (09:48→21:58)
[2020-08-23] MEDS: hydrALAZINE HCL 10 MG TABLET PO SCH (09:49)
[2020-08-23 10:50] LABS: ANISOCYTOSIS 0; HELMET CELLS 0; HOWELL-JOLLY BODIES 0; MACROCYTOSIS 0; OVALOCYTE 0; PLATELET ESTIMATE NORMAL; ROULEAU 0; SICKELED CELLS 0; TARGET CELLS 0; TEAR DROP CELLS 0; TOXIC GRANULATION 0
[2020-08-23] MEDS: ACETAMINOPHEN 325 MG TABLET (FP) PO PRN ×2 (13:53→22:09)
[2020-08-23] MEDS: AMOX TR/POT CLAV 500MG/125MG TABLETS (FP) PO SCH (17:43)
[2020-08-23] MEDS: ISOSORBIDE MONONITRATE 60 MG TAB.SR.24H (FP) PO SCH (21:58)
[2020-08-23] MEDS: SENNOSIDES 8.6MG TABLET (FP) PO SCH (21:58)
[2020-08-23] MEDS: ZOLPIDEM TARTRATE 5 MG TABLET PO PRN (22:06)
[2020-08-23] MEDS: SIMETHICONE 80 MG TAB.CHEW (FP) PO PRN (22:06)
[2020-08-23] MEDS ORDERED: PT OWN MED DRAWER 7, Y5N ONE (23:16)
[2020-08-24] MEDS: NYSTATIN 500,000 UNITS/5 ML SUSPENSION PO SCH ×3 (00:22→12:59)
[2020-08-24] MEDS: ACETAMINOPHEN 325 MG TABLET (FP) PO PRN (03:59)
[2020-08-24] MEDS: POLYETHYLENE GLYCOL 3350 119 GM BTL PO SCH ×2 (05:53→13:12)
[2020-08-24] MEDS ORDERED: PT OWN MED DRAWER 7, Y5N ONE (09:10)
[2020-08-24] MEDS: LACTOBACILLUS ACIDOPHILUS 1 TABLET PO SCH (09:20)
[2020-08-24] MEDS: TAMSULOSIN HCL 0.4 MG CAP PO SCH (09:20)
[2020-08-24] MEDS: SIMETHICONE 80 MG TAB.CHEW (FP) PO PRN ×2 (09:20→14:45)
[2020-08-24] MEDS: ASPIRIN 81 MG CHEWABLE TABLETS PO SCH (09:20)
[2020-08-24] MEDS: AMOX TR/POT CLAV 500MG/125MG TABLETS (FP) PO SCH (09:20)
[2020-08-24] MEDS: PANTOPRAZOLE 40 MG TABLET PO SCH (09:20)
[2020-08-24] MEDS: hydrALAZINE HCL 10 MG TABLET PO SCH (09:20)
[2020-08-24] MEDS: FUROSEMIDE 20 MG TABLET (FP) PO SCH (09:20)
[2020-08-24] MEDS: APIXABAN 5 MG TABLET PO SCH (09:20)
[2020-08-24] MEDS: FOLIC ACID 1 MG TABLET (FP) PO SCH (09:20)
[2020-08-24] MEDS: RANOLAZINE E.R. 500 MG TABLET (FP) PO SCH (09:21)
[2020-08-24] MEDS: ALLOPURINOL 100 MG TABLET (FP) PO SCH (09:21)
[2020-08-24] MEDS ORDERED: ACETAMINOPHEN 325 MG TABLET (FP) PO PRN (13:14)
[2020-08-24 15:42] VITALS: BP 124/62; PULSE 62; TEMP 98.2
== END 2020-08-24 16:18 | disposition home health service (06) | DRG 436 ==
LOC: JER 16:27 → JERBED 18:45 → J4W 08-14 17:34 → OBSVTOIN 08-16 11:11 → J8W 08-18 13:29
PROVIDERS: ADMIT Student in an Organized Health Care Education/Training Program; ATTEND Internal Medicine
DX: C25.9 Malignant neoplasm of pancreas, unspecified (principal); I50.22 Chronic systolic (congestive) heart failure; R07.89 Other chest pain; I25.10 Atherosclerotic heart disease of native coronary artery without angina pectoris; I11.0 Hypertensive heart disease with heart failure; I73.9 Peripheral vascular disease, unspecified; N40.0 Benign prostatic hyperplasia without lower urinary tract symptoms; E78.5 Hyperlipidemia, unspecified; K59.09 Other constipation; K21.9 Gastro-esophageal reflux disease without esophagitis; R00.1 Bradycardia, unspecified; K44.9 Diaphragmatic hernia without obstruction or gangrene; E66.9 Obesity, unspecified; I48.0 Paroxysmal atrial fibrillation; F41.9 Anxiety disorder, unspecified; M54.5 Low back pain; M10.9 Gout, unspecified; D64.9 Anemia, unspecified; R94.5 Abnormal results of liver function studies; Z95.1 Presence of aortocoronary bypass graft; Z95.820 Peripheral vascular angioplasty status with implants and grafts; Z85.46 Personal history of malignant neoplasm of prostate; Z68.26 Body mass index [BMI] 26.0-26.9, adult
CPT/HCPCS: 36415; 71045-TC-FY; 74176-TC; 80048; 80053; 80076; 81003; 82272; 82550; 83540; 83550; 83690; 83735; 83880; 84484; 85025; 85045; 85610; 85651; 85730; 86140; 87040; 93005; 93010; 99285-25; C9803; G0378; J0131; U0003; U0005

== ENCOUNTER 2020-09-11 15:26 | Inpatient (IN) | payer OTHER, MEDICARE ==
[2020-09-11 17:45] LABS: BASO % 0.1 % (0-2.0); EOS % 0.5 % (0-4.5); HEMATOCRIT 26.1 % (35.4-49); HEMOGLOBIN 8.6 GM/dL (11.7-16.9); LYMPH % 2.6 % (8-40); MCH 32.3 pg (25.7-33.7); MEAN CELL VOLUME 98.1 fl (80-96); MEAN PLT VOLUME 8.9 fl (7.5-11.1); MONO % 3.2 % (3.8-10.2); NEUT % 93.6 % (42.8-82.8); PLATELET COUNT 138 K/MM3 (134-434); RBC 2.66 M/mm3 (4.00-5.60); WHITE BLOOD COUNT 17.7 K/mm3 (4.0-10.0)
[2020-09-11 18:04] LABS: CHLORIDE 104 mmol/L (98-107); SODIUM 135 mmol/L (136-145)
[2020-09-11 18:06] LABS: CALCIUM 8.4 mg/dL (8.5-10.1)
[2020-09-11 18:07] LABS: ANION GAP 7 MMOL/L (8-16); BLOOD UREA NITROGEN 22.4 mg/dL (7-18); CO2 23 mmol/L (21-32); GLUCOSE,RANDOM 126 mg/dL (74-106)
[2020-09-11 18:10] LABS: CREATININE 1.4 mg/dL (0.55-1.3); SGOT/AST 18 U/L (15-37); SGPT/ALT 22 U/L (13-61)
[2020-09-11 18:11] LABS: BILIRUBIN,TOTAL 0.5 mg/dL (0.2-1)
[2020-09-11 18:12] LABS: TOT PROT 6.1 g/dl (6.4-8.2)
[2020-09-11 18:13] LABS: ALK PHOS 273 U/L (45-117)
[2020-09-11 18:39] LABS: ANISOCYTOSIS 0; HELMET CELLS 0; HOWELL-JOLLY BODIES 0; MACROCYTOSIS 0; OVALOCYTE 0; ROULEAU 0; SICKELED CELLS 0; TARGET CELLS 0; TEAR DROP CELLS 0; TOXIC GRANULATION 0
[2020-09-11] MEDS ORDERED: FAMOTIDINE 20 MG TABLET PO ONE (18:39)
[2020-09-11] MEDS ORDERED: MAG HYDROX/AL HYDROX/SIMETH -MYLANTA- ORAL SUSPENSION PO ONE (18:39)
[2020-09-11] MEDS ORDERED: MAG HYDROX/AL HYDROX/SIMETH 30 ML UNIT-DOSE CUP ONE (19:35)
[2020-09-11] MEDS ORDERED: FAMOTIDINE 20 MG TABLET ONE (19:35)
[2020-09-11] MEDS ORDERED: PATIENT'S OWN MEDICATION (NON-FORMULARY) (Potassium Chloride [Potassium Chloride] 10 MEQ C PO PRN (20:48)
[2020-09-11] MEDS ORDERED: POTASSIUM CHLORIDE TABS 10 MEQ TABLET.ER (FP) PO PRN (20:51)
[2020-09-11] MEDS ORDERED: APIXABAN 5 MG TABLET ONE (21:48)
[2020-09-11] MEDS ORDERED: ISOSORBIDE MONONITRATE 60 MG TAB.SR.24H (FP) PO ONE (21:48)
[2020-09-11] MEDS ORDERED: SENNOSIDES 8.6MG TABLET (FP) PO ONE ×2 (21:49→21:54)
[2020-09-11] MEDS: ISOSORBIDE MONONITRATE 60 MG TAB.SR.24H (FP) PO SCH (21:56)
[2020-09-11] MEDS: APIXABAN 5 MG TABLET PO SCH (21:56)
[2020-09-11] MEDS: SENNOSIDES 8.6MG TABLET (FP) PO SCH (21:56)
[2020-09-11] MEDS ORDERED: POLYETHYLENE GLYCOL 3350 119 GM BTL PO SCH (22:00)
[2020-09-11] MEDS ORDERED: MAG HYDROX/AL HYDROX/SIMETH 30 ML UNIT-DOSE CUP PO PRN (22:20)
[2020-09-11 23:14] VITALS: BMI 25.4
[2020-09-11] MEDS: RANOLAZINE E.R. 500 MG TABLET (FP) PO SCH (23:41)
[2020-09-12] MEDS: ACETAMINOPHEN 325 MG TABLET (FP) PO PRN ×2 (01:52→22:05)
[2020-09-12 02:25] LABS: EPI CELLS 19 /uL (0-25.1); HYALINE CASTS 1 /uL (0-3.1); URINE APPEARANCE CLEAR; URINE BACTERIA 7 /uL (0-1359); URINE BILIRUBIN NEGATIVE (NEGATIVE); URINE COLOR YELLOW; URINE GLUCOSE (UA) NEGATIVE (NEGATIVE); URINE KETONE NEGATIVE (NEGATIVE); URINE LEUK ESTERASE TRACE (NEGATIVE); URINE NITRITE NEGATIVE (NEGATIVE); URINE PROTEIN NEGATIVE (NEGATIVE); URINE RBC 18 /uL (0-23.9); URINE WBC 117 /uL (0-25.8)
[2020-09-12 07:20] LABS: BASO % 0.3 % (0-2.0); EOS % 3.2 % (0-4.5); HEMATOCRIT 23.4 % (35.4-49); HEMOGLOBIN 7.7 GM/dL (11.7-16.9); LYMPH % 6.8 % (8-40); MCH 32.4 pg (25.7-33.7); MEAN CELL VOLUME 98.2 fl (80-96); MEAN PLT VOLUME 8.6 fl (7.5-11.1); MONO % 7.8 % (3.8-10.2); NEUT % 81.9 % (42.8-82.8); PLATELET COUNT 118 K/MM3 (134-434); RBC 2.38 M/mm3 (4.00-5.60); RDW 17.8 % (11.9-15.9); WHITE BLOOD COUNT 14.5 K/mm3 (4.0-10.0)
[2020-09-12 07:42] LABS: CHLORIDE 105 mmol/L (98-107); SODIUM 137 mmol/L (136-145)
[2020-09-12 07:55] LABS: CHOLESTEROL 89 mg/dL (50-200)
[2020-09-12 07:57] LABS: ALBUMIN 2.7 g/dl (3.4-5.0); GLUCOSE,RANDOM 91 mg/dL (74-106)
[2020-09-12 07:58] LABS: BILIRUBIN,TOTAL 0.4 mg/dL (0.2-1); TOT PROT 5.4 g/dl (6.4-8.2)
[2020-09-12 07:59] LABS: CALCIUM 8.2 mg/dL (8.5-10.1); CREATININE 1.3 mg/dL (0.55-1.3)
[2020-09-12 08:00] LABS: ANION GAP 6 MMOL/L (8-16); BLOOD UREA NITROGEN 21.5 mg/dL (7-18); CO2 25 mmol/L (21-32); SGOT/AST 17 U/L (15-37); SGPT/ALT 20 U/L (13-61)
[2020-09-12 08:11] LABS: ALK PHOS 238 U/L (45-117)
[2020-09-12] MEDS: LISINOPRIL 5 MG TABLET PO SCH (09:26)
[2020-09-12] MEDS: RANOLAZINE E.R. 500 MG TABLET (FP) PO SCH ×2 (09:26→22:02)
[2020-09-12] MEDS: ASPIRIN 81 MG CHEWABLE TABLETS PO SCH (09:26)
[2020-09-12] MEDS: MAG HYDROX/AL HYDROX/SIMETH 30 ML UNIT-DOSE CUP PO PRN ×2 (09:26→22:05)
[2020-09-12] MEDS: FOLIC ACID 1 MG TABLET (FP) PO SCH (09:27)
[2020-09-12] MEDS: PANTOPRAZOLE 40 MG TABLET PO SCH (09:27)
[2020-09-12] MEDS: ALLOPURINOL 100 MG TABLET (FP) PO SCH (09:27)
[2020-09-12] MEDS: APIXABAN 5 MG TABLET PO SCH ×2 (09:27→22:01)
[2020-09-12 11:25] LABS: ANISOCYTOSIS 1+; MACROCYTOSIS 0; OVALOCYTE 1+; PLATELET ESTIMATE DECREASED; TEAR DROP CELLS 1+
[2020-09-12] MEDS: ISOSORBIDE MONONITRATE 60 MG TAB.SR.24H (FP) PO SCH (22:01)
[2020-09-12] MEDS: SENNOSIDES 8.6MG TABLET (FP) PO SCH (22:02)
[2020-09-13] MEDS: MAG HYDROX/AL HYDROX/SIMETH 30 ML UNIT-DOSE CUP PO PRN (03:47)
[2020-09-13] MEDS: ACETAMINOPHEN 325 MG TABLET (FP) PO PRN (03:47)
[2020-09-13 07:06] LABS: CALCIUM 8.1 mg/dL (8.5-10.1)
[2020-09-13 07:07] LABS: CREATININE 1.3 mg/dL (0.55-1.3)
[2020-09-13 07:11] LABS: BASO % 0.2 % (0-2.0); EOS % 2.4 % (0-4.5); HEMATOCRIT 23.7 % (35.4-49); HEMOGLOBIN 7.9 GM/dL (11.7-16.9); LYMPH % 5.2 % (8-40); MCH 32.3 pg (25.7-33.7); MCHC 33.2 g/dl (32.0-35.9); MEAN CELL VOLUME 97.3 fl (80-96); MEAN PLT VOLUME 8.7 fl (7.5-11.1); MONO % 7.6 % (3.8-10.2); NEUT % 84.6 % (42.8-82.8); PLATELET COUNT 123 K/MM3 (134-434); RBC 2.44 M/mm3 (4.00-5.60); RDW 18.6 % (11.9-15.9)
[2020-09-13] MEDS: SIMETHICONE 80 MG TAB.CHEW (FP) PO PRN ×2 (08:10→18:42)
[2020-09-13] MEDS ORDERED: FUROSEMIDE 20 MG TABLET (FP) PO ONE (08:20)
[2020-09-13] MEDS: APIXABAN 5 MG TABLET PO SCH ×2 (09:23→21:17)
[2020-09-13] MEDS: PANTOPRAZOLE 40 MG TABLET PO SCH (09:23)
[2020-09-13] MEDS: RANOLAZINE E.R. 500 MG TABLET (FP) PO SCH ×2 (09:23→21:18)
[2020-09-13] MEDS: ALLOPURINOL 100 MG TABLET (FP) PO SCH (09:23)
[2020-09-13] MEDS: LISINOPRIL 5 MG TABLET PO SCH (09:23)
[2020-09-13] MEDS: ASPIRIN 81 MG CHEWABLE TABLETS PO SCH (09:23)
[2020-09-13] MEDS: FOLIC ACID 1 MG TABLET (FP) PO SCH (09:23)
[2020-09-13 10:18] LABS: ANISOCYTOSIS 1+; MACROCYTOSIS 0; PLATELET ESTIMATE DECREASED
[2020-09-13] MEDS: SIMETHICONE 80 MG TAB.CHEW (FP) PO SCH ×2 (13:41→21:51)
[2020-09-13] MEDS ORDERED: FUROSEMIDE 20 MG TABLET (FP) PO PRN (14:04)
[2020-09-13] MEDS: BACITRACIN 15 GM TUBE TOPICAL OINTMENT TP SCH ×2 (20:30→22:59)
[2020-09-13] MEDS: SENNOSIDES 8.6MG TABLET (FP) PO SCH (21:17)
[2020-09-13] MEDS: ISOSORBIDE MONONITRATE 60 MG TAB.SR.24H (FP) PO SCH (21:17)
[2020-09-14] MEDS: SIMETHICONE 80 MG TAB.CHEW (FP) PO SCH ×3 (05:38→21:55)
[2020-09-14 06:54] LABS: BASO % 0.2 % (0-2.0); EOS % 2.5 % (0-4.5); HEMATOCRIT 25.6 % (35.4-49); HEMOGLOBIN 8.4 GM/dL (11.7-16.9); LYMPH % 6.8 % (8-40); MCH 32.3 pg (25.7-33.7); MCHC 32.7 g/dl (32.0-35.9); MEAN CELL VOLUME 98.7 fl (80-96); MEAN PLT VOLUME 8.6 fl (7.5-11.1); MONO % 6.3 % (3.8-10.2); NEUT % 84.2 % (42.8-82.8); PLATELET COUNT 137 K/MM3 (134-434); RBC 2.59 M/mm3 (4.00-5.60); RDW 18.6 % (11.9-15.9); WHITE BLOOD COUNT 16.9 K/mm3 (4.0-10.0)
[2020-09-14 07:08] LABS: CALCIUM 8.5 mg/dL (8.5-10.1)
[2020-09-14 07:09] LABS: BLOOD UREA NITROGEN 25.5 mg/dL (7-18)
[2020-09-14 07:12] LABS: CREATININE 1.3 mg/dL (0.55-1.3)
[2020-09-14 09:37] LABS: ERYTHROCYTE SEDIMENTATION RATE 54 mm/hr (0-20)
[2020-09-14] MEDS: MAG HYDROX/AL HYDROX/SIMETH 30 ML UNIT-DOSE CUP PO PRN (09:50)
[2020-09-14] MEDS: BACITRACIN 15 GM TUBE TOPICAL OINTMENT TP SCH ×2 (09:51→21:56)
[2020-09-14] MEDS: RANOLAZINE E.R. 500 MG TABLET (FP) PO SCH ×2 (09:51→21:55)
[2020-09-14] MEDS: ASPIRIN 81 MG CHEWABLE TABLETS PO SCH (09:51)
[2020-09-14] MEDS: ALLOPURINOL 100 MG TABLET (FP) PO SCH (09:51)
[2020-09-14] MEDS: PANTOPRAZOLE 40 MG TABLET PO SCH (09:51)
[2020-09-14] MEDS: LISINOPRIL 5 MG TABLET PO SCH (09:51)
[2020-09-14] MEDS: FOLIC ACID 1 MG TABLET (FP) PO SCH (09:51)
[2020-09-14] MEDS: APIXABAN 5 MG TABLET PO SCH ×2 (09:51→21:55)
[2020-09-14 11:20] LABS: ANISOCYTOSIS 1+; MACROCYTOSIS 0; OVALOCYTE 1+; PLATELET ESTIMATE DECREASED
[2020-09-14] MEDS: ISOSORBIDE MONONITRATE 60 MG TAB.SR.24H (FP) PO SCH (21:55)
[2020-09-14] MEDS: SENNOSIDES 8.6MG TABLET (FP) PO SCH (21:55)
[2020-09-14] MEDS: ACETAMINOPHEN 325 MG TABLET (FP) PO PRN (21:56)
[2020-09-15] MEDS: MAG HYDROX/AL HYDROX/SIMETH 30 ML UNIT-DOSE CUP PO PRN ×2 (02:04→11:03)
[2020-09-15] MEDS: SIMETHICONE 80 MG TAB.CHEW (FP) PO SCH ×3 (05:59→21:47)
[2020-09-15 06:55] LABS: BASO % 0.2 % (0-2.0); EOS % 3.1 % (0-4.5); HEMATOCRIT 24.2 % (35.4-49); HEMOGLOBIN 8.1 GM/dL (11.7-16.9); LYMPH % 6.5 % (8-40); MCHC 33.4 g/dl (32.0-35.9); MEAN CELL VOLUME 98.7 fl (80-96); MEAN PLT VOLUME 8.1 fl (7.5-11.1); MONO % 6.7 % (3.8-10.2); NEUT % 83.5 % (42.8-82.8); PLATELET COUNT 148 K/MM3 (134-434); RBC 2.45 M/mm3 (4.00-5.60); RDW 18.6 % (11.9-15.9); WHITE BLOOD COUNT 14.2 K/mm3 (4.0-10.0)
[2020-09-15 07:13] LABS: BLOOD UREA NITROGEN 23.9 mg/dL (7-18); CALCIUM 8.6 mg/dL (8.5-10.1)
[2020-09-15 07:17] LABS: CREATININE 1.2 mg/dL (0.55-1.3)
[2020-09-15] MEDS ORDERED: PT OWN MED DRAWER 7, Y5N ONE (09:38)
[2020-09-15] MEDS: ASPIRIN 81 MG CHEWABLE TABLETS PO SCH (09:40)
[2020-09-15] MEDS: LISINOPRIL 5 MG TABLET PO SCH (09:40)
[2020-09-15] MEDS: ALLOPURINOL 100 MG TABLET (FP) PO SCH (09:40)
[2020-09-15] MEDS: APIXABAN 5 MG TABLET PO SCH ×2 (09:40→21:46)
[2020-09-15] MEDS: FOLIC ACID 1 MG TABLET (FP) PO SCH (09:40)
[2020-09-15] MEDS: PANTOPRAZOLE 40 MG TABLET PO SCH (09:41)
[2020-09-15] MEDS: BACITRACIN 15 GM TUBE TOPICAL OINTMENT TP SCH ×2 (09:41→22:00)
[2020-09-15] MEDS: RANOLAZINE E.R. 500 MG TABLET (FP) PO SCH ×2 (09:41→21:47)
[2020-09-15 10:27] LABS: ANISOCYTOSIS 1+; MACROCYTOSIS 0; PLATELET ESTIMATE NORMAL
[2020-09-15] MEDS: ISOSORBIDE MONONITRATE 60 MG TAB.SR.24H (FP) PO SCH (21:47)
[2020-09-15] MEDS: SENNOSIDES 8.6MG TABLET (FP) PO SCH (21:47)
[2020-09-15] MEDS: ACETAMINOPHEN 325 MG TABLET (FP) PO PRN (21:55)
[2020-09-16] MEDS: SIMETHICONE 80 MG TAB.CHEW (FP) PO SCH ×3 (06:27→21:11)
[2020-09-16] MEDS: MAG HYDROX/AL HYDROX/SIMETH 30 ML UNIT-DOSE CUP PO PRN ×3 (06:30→21:24)
[2020-09-16 07:38] LABS: BASO % 0.4 % (0-2.0); EOS % 4.2 % (0-4.5); HEMATOCRIT 24.8 % (35.4-49); HEMOGLOBIN 8.4 GM/dL (11.7-16.9); LYMPH % 6.6 % (8-40); MEAN CELL VOLUME 97.1 fl (80-96); MONO % 8.3 % (3.8-10.2); NEUT % 80.5 % (42.8-82.8); PLATELET COUNT 172 K/MM3 (134-434); RBC 2.55 M/mm3 (4.00-5.60); RDW 19.2 % (11.9-15.9); WHITE BLOOD COUNT 12.6 K/mm3 (4.0-10.0)
[2020-09-16 07:56] LABS: BLOOD UREA NITROGEN 24.1 mg/dL (7-18)
[2020-09-16 08:00] LABS: CREATININE 1.2 mg/dL (0.55-1.3)
[2020-09-16] MEDS: BACITRACIN 15 GM TUBE TOPICAL OINTMENT TP SCH ×2 (09:19→21:11)
[2020-09-16] MEDS: ASPIRIN 81 MG CHEWABLE TABLETS PO SCH (09:19)
[2020-09-16] MEDS: APIXABAN 5 MG TABLET PO SCH ×2 (09:19→21:11)
[2020-09-16] MEDS: RANOLAZINE E.R. 500 MG TABLET (FP) PO SCH ×2 (09:19→21:11)
[2020-09-16] MEDS: FOLIC ACID 1 MG TABLET (FP) PO SCH (09:19)
[2020-09-16] MEDS: ALLOPURINOL 100 MG TABLET (FP) PO SCH (09:19)
[2020-09-16] MEDS: LISINOPRIL 5 MG TABLET PO SCH (09:19)
[2020-09-16] MEDS: PANTOPRAZOLE 40 MG TABLET PO SCH (09:21)
[2020-09-16 10:49] LABS: ANISOCYTOSIS 2+; MACROCYTOSIS 0; PLATELET ESTIMATE NORMAL
[2020-09-16] MEDS: ISOSORBIDE MONONITRATE 60 MG TAB.SR.24H (FP) PO SCH (21:11)
[2020-09-16] MEDS: SENNOSIDES 8.6MG TABLET (FP) PO SCH (21:11)
[2020-09-16] MEDS: ACETAMINOPHEN 325 MG TABLET (FP) PO PRN (21:12)
[2020-09-17] MEDS: SIMETHICONE 80 MG TAB.CHEW (FP) PO SCH (05:42)
[2020-09-17] MEDS: APIXABAN 5 MG TABLET PO SCH (11:20)
[2020-09-17] MEDS: ASPIRIN 81 MG CHEWABLE TABLETS PO SCH (11:20)
[2020-09-17] MEDS: BACITRACIN 15 GM TUBE TOPICAL OINTMENT TP SCH (11:20)
[2020-09-17] MEDS: FOLIC ACID 1 MG TABLET (FP) PO SCH (11:20)
[2020-09-17] MEDS: RANOLAZINE E.R. 500 MG TABLET (FP) PO SCH (11:21)
[2020-09-17] MEDS: LISINOPRIL 5 MG TABLET PO SCH (11:21)
[2020-09-17] MEDS: PANTOPRAZOLE 40 MG TABLET PO SCH (11:22)
[2020-09-17] MEDS: ALLOPURINOL 100 MG TABLET (FP) PO SCH (11:22)
[2020-09-17 14:48] VITALS: BP 133/55; PULSE 50; TEMP 98
== END 2020-09-17 15:05 | disposition home or self-care (01) | DRG 436 ==
LOC: JER 15:26 → JERBED 16:53 → J4W 22:43 → J4S 23:10 → OBSVTOIN 09-14 13:34
PROVIDERS: ADMIT Internal Medicine; ATTEND Internal Medicine
DX: C24.1 Malignant neoplasm of ampulla of Vater (principal); I50.42 Chronic combined systolic (congestive) and diastolic (congestive) heart failure; I25.10 Atherosclerotic heart disease of native coronary artery without angina pectoris; I48.91 Unspecified atrial fibrillation; I10 Essential (primary) hypertension; E78.5 Hyperlipidemia, unspecified; I11.0 Hypertensive heart disease with heart failure; D72.829 Elevated white blood cell count, unspecified; I73.9 Peripheral vascular disease, unspecified; I44.7 Left bundle-branch block, unspecified; E66.9 Obesity, unspecified; D63.8 Anemia in other chronic diseases classified elsewhere; K59.09 Other constipation; N40.0 Benign prostatic hyperplasia without lower urinary tract symptoms; D50.0 Iron deficiency anemia secondary to blood loss (chronic); Z87.442 Personal history of urinary calculi; Z95.1 Presence of aortocoronary bypass graft; Z85.46 Personal history of malignant neoplasm of prostate; Z68.25 Body mass index [BMI] 25.0-25.9, adult
CPT/HCPCS: 36415; 71045-TC-FY; 80048; 80053; 81003; 82465; 82550; 83036; 83880; 84484; 85025; 85651; 86140; 87077; 87086; 93005; 93010; 99285-25; C9803; G0378; U0003; U0005

== ENCOUNTER 2020-10-31 04:41 | Day surgery (SDC) | payer OTHER, MEDICARE ==
[2020-10-30 11:13] VITALS: BMI 25.0
[2020-10-31 11:46] VITALS: TEMP 97.4
[2020-10-31] MEDS ORDERED: LIDOCAINE HCL 2% 100 MG/5 ML DISP.SYRIN ONE (13:09)
[2020-10-31] MEDS ORDERED: PROPOFOL 20 ML ONE (13:09)
[2020-10-31] MEDS ORDERED: SODIUM CHLORIDE 0.9% P/F 10 ML VIAL IJ ONE (13:11)
[2020-10-31] MEDS ORDERED: ceFAZolin SODIUM 1 GM VIAL ONE (13:11)
[2020-10-31 13:58] LABS: INR 1.26 (0.83-1.09); PROTHROMBIN TIME (PATIENT) 15.4 SEC (9.7-13.0)
[2020-10-31 14:01] LABS: ACTIVATED PTT 34.9 SECONDS (25.2-36.5)
[2020-10-31] MEDS ORDERED: KETOROLAC TROMETHAMINE 30 MG/1 ML VIAL ONE (14:07)
[2020-10-31] MEDS ORDERED: ceFAZolin SODIUM 1 GM VIAL IVPB ONE (14:13)
[2020-10-31 15:50] VITALS: BP 146/78; PULSE 66
== END 2020-10-31 15:55 | disposition home or self-care (01) ==
LOC: JASU-SURG 04:41
PROVIDERS: ATTEND Urology
PROC: 0TF4XZZ Fragmentation in Left Kidney Pelvis, External Approach (ICD-10-PCS; principal; 2020-10-31 13:30)
DX: N20.0 Calculus of kidney (principal)
CPT/HCPCS: 36415; 85610; 85730

== ENCOUNTER 2020-12-16 20:27 | Inpatient (IN) | payer OTHER, MEDICARE ==
[2020-12-16] MEDS ORDERED: ASPIRIN 81 MG CHEWABLE TABLETS PO ONE (21:25)
[2020-12-16] MEDS ORDERED: SODIUM CHLORIDE 1,000 ML IV STA (21:25)
[2020-12-16] MEDS ORDERED: SODIUM CHLORIDE 500 ML IV STA (21:32)
[2020-12-16] MEDS ORDERED: ASPIRIN 81 MG CHEWABLE TABLETS ONE (21:32)
[2020-12-16 22:05] LABS: HEMATOCRIT 29.6 % (35.4-49); HEMOGLOBIN 9.6 GM/dL (11.7-16.9); MCH 31.1 pg (25.7-33.7); MCHC 32.6 g/dl (32.0-35.9); MEAN CELL VOLUME 95.5 fl (80-96); MEAN PLT VOLUME 8.3 fl (7.5-11.1); PLATELET COUNT 107 10^3/uL (134-434); RDW 18.3 % (11.9-15.9)
[2020-12-16 22:08] LABS: INR 2.12 (0.83-1.09); PROTHROMBIN TIME (PATIENT) 25.1 SEC (9.7-13.0)
[2020-12-16 22:11] LABS: ACTIVATED PTT 31.9 SECONDS (25.2-36.5)
[2020-12-16 22:25] LABS: ALBUMIN 3.2 g/dl (3.4-5.0); BLOOD UREA NITROGEN 23.9 mg/dL (7-18); CALCIUM 7.9 mg/dL (8.5-10.1); MAGNESIUM 2.1 mg/dL (1.8-2.4)
[2020-12-16 22:28] LABS: CREATININE 1.5 mg/dL (0.55-1.3)
[2020-12-16 22:30] LABS: BILIRUBIN,TOTAL 0.7 mg/dL (0.2-1); TOT PROT 5.9 g/dl (6.4-8.2)
[2020-12-16 22:32] LABS: ANISOCYTOSIS 0; HELMET CELLS 0; HOWELL-JOLLY BODIES 0; MACROCYTOSIS 0; OVALOCYTE 0; PLATELET ESTIMATE DECREASED; ROULEAU 0; SICKELED CELLS 0; TARGET CELLS 0; TEAR DROP CELLS 0; TOXIC GRANULATION 0
[2020-12-16 23:33] LABS: LACTIC ACID 3.6 mmol/L (0.4-2.0)
[2020-12-17] MEDS ORDERED: ACETAMINOPHEN 1000 MG/100 ML VIAL (NON FORMULARY) IVPB ONE (00:52)
[2020-12-17] MEDS ORDERED: FAMOTIDINE 20 MG/50 ML IVPB 20 MG/50 ML MG IVPB ONE ×2 (00:52→01:04)
[2020-12-17 05:34] LABS: LACTIC ACID 2.4 mmol/L (0.4-2.0)
[2020-12-17 06:24] LABS: HEMATOCRIT 24.3 % (35.4-49); MCH 31.5 pg (25.7-33.7); MCHC 32.8 g/dl (32.0-35.9); MEAN CELL VOLUME 96.1 fl (80-96); MEAN PLT VOLUME 9.5 fl (7.5-11.1); PLATELET COUNT 90 10^3/uL (134-434); RBC 2.53 M/mm3 (4.00-5.60)
[2020-12-17 06:38] LABS: WHITE BLOOD COUNT 71.7 K/mm3 (4.0-10.0)
[2020-12-17 06:46] LABS: ALBUMIN 2.6 g/dl (3.4-5.0); BLOOD UREA NITROGEN 24.5 mg/dL (7-18); CALCIUM 7.3 mg/dL (8.5-10.1)
[2020-12-17 06:49] LABS: CREATININE 1.3 mg/dL (0.55-1.3)
[2020-12-17 06:50] LABS: BILIRUBIN,TOTAL 0.5 mg/dL (0.2-1)
[2020-12-17 06:51] LABS: TOT PROT 4.9 g/dl (6.4-8.2)
[2020-12-17 06:54] LABS: N-TERMINAL BNP 10255.7 pg/ml (5-450)
[2020-12-17 08:00] LABS: EPI CELLS 11 /uL (0-25.1); HYALINE CASTS 5 /uL (0-3.1); URINE APPEARANCE CLEAR; URINE BACTERIA 2 /uL (0-1359); URINE BILIRUBIN 1+ (NEGATIVE); URINE COLOR DK YELLOW; URINE GLUCOSE (UA) NEGATIVE (NEGATIVE); URINE KETONE TRACE (NEGATIVE); URINE LEUK ESTERASE TRACE (NEGATIVE); URINE NITRITE NEGATIVE (NEGATIVE); URINE PROTEIN 1+ (NEGATIVE); URINE RBC 24 /uL (0-23.9); URINE WBC 31 /uL (0-25.8)
[2020-12-17 08:17] LABS: ANISOCYTOSIS 0; MACROCYTOSIS 0; PLATELET ESTIMATE DECREASED
[2020-12-17] MEDS ORDERED: TAMSULOSIN HCL 0.4 MG CAP ONE (08:24)
[2020-12-17] MEDS: TAMSULOSIN HCL 0.4 MG CAP PO SCH (08:35)
[2020-12-17] MEDS ORDERED: ASPIRIN 81 MG CHEWABLE TABLETS ONE (09:52)
[2020-12-17] MEDS ORDERED: APIXABAN 5 MG TABLET ONE ×3 (09:53→23:44)
[2020-12-17] MEDS ORDERED: FOLIC ACID 1 MG TABLET (FP) ONE (09:54)
[2020-12-17] MEDS ORDERED: PANTOPRAZOLE 40 MG TABLET ONE (09:54)
[2020-12-17] MEDS ORDERED: PANTOPRAZOLE 40 MG TABLET PO SCH (10:00)
[2020-12-17] MEDS: FOLIC ACID 1 MG TABLET (FP) PO SCH (10:00)
[2020-12-17] MEDS: ASPIRIN 81 MG CHEWABLE TABLETS PO SCH (10:00)
[2020-12-17] MEDS: APIXABAN 5 MG TABLET PO SCH ×2 (10:00→23:30)
[2020-12-17] MEDS: SODIUM CHLORIDE 0.45% 1,000 ML IV SCH (10:25)
[2020-12-17 12:28] LABS: LACTIC ACID 2.6 mmol/L (0.4-2.0)
[2020-12-17] MEDS ORDERED: PIPERACILLIN/TAZOB 2.25 GM 2.25 GM in DEXTROSE 5%-WATER - 50 ML IVPB SCH (13:15)
[2020-12-17] MEDS: PANTOPRAZOLE SODIUM 40 MG VIAL IVPUSH SCH ×2 (13:20→22:14)
[2020-12-17] MEDS ORDERED: PANTOPRAZOLE SODIUM 40 MG VIAL ONE ×2 (13:23→21:38)
[2020-12-17] MEDS ORDERED: ONDANSETRON 4 MG/2 ML VIAL ONE ×2 (13:24→19:50)
[2020-12-17] MEDS: ONDANSETRON 4 MG/2 ML VIAL IVPUSH PRN ×2 (13:31→19:58)
[2020-12-17] MEDS: SUCRALFATE 1 GM TABLET (FP) PO SCH ×2 (13:50→22:15)
[2020-12-17] MEDS: RANOLAZINE E.R. 500 MG TABLET (FP) PO SCH ×2 (13:55→23:30)
[2020-12-17] MEDS ORDERED: PIPERACILLIN/TAZOB 2.25 GM 2.25 GM/50 ML BAG IVPB ONE (13:56)
[2020-12-17] MEDS ORDERED: SUCRALFATE 1 GM TABLET (FP) ONE ×2 (13:57→21:37)
[2020-12-17] MEDS: ALLOPURINOL 100 MG TABLET (FP) PO SCH ×2 (14:05→23:30)
[2020-12-17] MEDS ORDERED: PIPERACILLIN/TAZOB 3.375 GM 3.375 GM/50 ML BAG IVPB ONE (17:45)
[2020-12-17] MEDS: PIPERACILLIN/TAZOB 3.375 GM 3.375 GM in DEXTROSE 5%-WATER - 50 ML IVPB SCH (18:02)
[2020-12-18] MEDS: PIPERACILLIN/TAZOB 3.375 GM 3.375 GM in DEXTROSE 5%-WATER - 50 ML IVPB SCH ×3 (04:00→20:22)
[2020-12-18] MEDS ORDERED: PIPERACILLIN/TAZOB 3.375 GM 3.375 GM/50 ML BAG IVPB ONE ×3 (04:01→18:54)
[2020-12-18] MEDS ORDERED: ONDANSETRON 4 MG/2 ML VIAL ONE ×3 (04:15→21:56)
[2020-12-18] MEDS: ONDANSETRON 4 MG/2 ML VIAL IVPUSH PRN ×3 (04:20→22:23)
[2020-12-18 05:56] LABS: BASO % 0.1 % (0-2.0); EOS % 0.2 % (0-4.5); HEMATOCRIT 27.4 % (35.4-49); LYMPH % 0.9 % (8-40); MCH 31.9 pg (25.7-33.7); MCHC 32.8 g/dl (32.0-35.9); MEAN CELL VOLUME 97.3 fl (80-96); MEAN PLT VOLUME 10.1 fl (7.5-11.1); MONO % 0.6 % (3.8-10.2); NEUT % 98.2 % (42.8-82.8); PLATELET COUNT 85 10^3/uL (134-434); RBC 2.82 M/mm3 (4.00-5.60); RDW 18.1 % (11.9-15.9)
[2020-12-18 05:57] LABS: WHITE BLOOD COUNT 72.1 K/mm3 (4.0-10.0)
[2020-12-18 06:16] LABS: BLOOD UREA NITROGEN 20.8 mg/dL (7-18); CALCIUM 7.8 mg/dL (8.5-10.1)
[2020-12-18 06:19] LABS: CREATININE 0.9 mg/dL (0.55-1.3)
[2020-12-18] MEDS ORDERED: SUCRALFATE 1 GM TABLET (FP) ONE ×2 (09:04→21:56)
[2020-12-18] MEDS ORDERED: ASPIRIN 81 MG CHEWABLE TABLETS ONE (09:04)
[2020-12-18] MEDS ORDERED: APIXABAN 5 MG TABLET ONE ×2 (09:04→21:56)
[2020-12-18] MEDS ORDERED: FOLIC ACID 1 MG TABLET (FP) ONE (09:05)
[2020-12-18] MEDS ORDERED: TAMSULOSIN HCL 0.4 MG CAP ONE (09:05)
[2020-12-18] MEDS ORDERED: PANTOPRAZOLE SODIUM 40 MG VIAL ONE (09:07)
[2020-12-18 09:12] LABS: ANISOCYTOSIS 1+; MACROCYTOSIS 1+; PLATELET ESTIMATE DECREASED
[2020-12-18] MEDS: TAMSULOSIN HCL 0.4 MG CAP PO SCH (09:22)
[2020-12-18] MEDS: APIXABAN 5 MG TABLET PO SCH ×2 (09:37→22:23)
[2020-12-18] MEDS: ASPIRIN 81 MG CHEWABLE TABLETS PO SCH (09:37)
[2020-12-18] MEDS: SODIUM CHLORIDE 0.45% 1,000 ML IV SCH (09:38)
[2020-12-18] MEDS: FOLIC ACID 1 MG TABLET (FP) PO SCH (09:38)
[2020-12-18] MEDS: ALLOPURINOL 100 MG TABLET (FP) PO SCH ×2 (09:39→23:19)
[2020-12-18] MEDS: PANTOPRAZOLE SODIUM 40 MG VIAL IVPUSH SCH ×2 (09:39→22:23)
[2020-12-18] MEDS: RANOLAZINE E.R. 500 MG TABLET (FP) PO SCH ×2 (09:39→23:19)
[2020-12-18] MEDS: SUCRALFATE 1 GM TABLET (FP) PO SCH ×2 (09:39→22:23)
[2020-12-18 09:50] LABS: LACTIC ACID 2.5 mmol/L (0.4-2.0)
[2020-12-18] MEDS ORDERED: PANTOPRAZOLE 40 MG TABLET ONE (21:55)
[2020-12-19] MEDS ORDERED: PIPERACILLIN/TAZOB 3.375 GM 3.375 GM/50 ML BAG IVPB ONE (02:35)
[2020-12-19] MEDS: PIPERACILLIN/TAZOB 3.375 GM 3.375 GM in DEXTROSE 5%-WATER - 50 ML IVPB SCH ×3 (03:17→17:32)
[2020-12-19] MEDS: TAMSULOSIN HCL 0.4 MG CAP PO SCH (08:16)
[2020-12-19] MEDS ORDERED: DEXTROSE 5%-WATER - 50 ML IVPB ONE ×2 (08:46→16:59)
[2020-12-19] MEDS ORDERED: PIPERACILLIN/TAZOBACTAM 3.375 GM VIAL IVPB ONE ×2 (08:46→16:59)
[2020-12-19] MEDS: D5-1/2NS+10 MEQ KCL - 10 MEQ/1,000 ML INFUS.BAG IV SCH (09:00)
[2020-12-19] MEDS: APIXABAN 5 MG TABLET PO SCH ×2 (09:01→22:01)
[2020-12-19] MEDS: FOLIC ACID 1 MG TABLET (FP) PO SCH (09:01)
[2020-12-19] MEDS: SUCRALFATE 1 GM TABLET (FP) PO SCH ×2 (09:01→22:01)
[2020-12-19] MEDS: ALLOPURINOL 100 MG TABLET (FP) PO SCH ×2 (09:01→22:01)
[2020-12-19] MEDS: RANOLAZINE E.R. 500 MG TABLET (FP) PO SCH ×2 (09:01→22:01)
[2020-12-19] MEDS: ASPIRIN 81 MG CHEWABLE TABLETS PO SCH (09:01)
[2020-12-19] MEDS: PANTOPRAZOLE SODIUM 40 MG VIAL IVPUSH SCH ×2 (09:01→22:01)
[2020-12-19 09:03] LABS: HEMOGLOBIN 8.8 GM/dL (11.7-16.9); MCH 31.6 pg (25.7-33.7); MCHC 32.6 g/dl (32.0-35.9); MEAN PLT VOLUME 9.2 fl (7.5-11.1); PLATELET COUNT 75 10^3/uL (134-434); RBC 2.79 M/mm3 (4.00-5.60); RDW 18.6 % (11.9-15.9)
[2020-12-19 09:16] LABS: WHITE BLOOD COUNT 31.4 K/mm3 (4.0-10.0)
[2020-12-19 09:54] LABS: CALCIUM 7.8 mg/dL (8.5-10.1)
[2020-12-19 09:56] LABS: BLOOD UREA NITROGEN 17.9 mg/dL (7-18); CALCIUM 7.7 mg/dL (8.5-10.1)
[2020-12-19 09:57] LABS: ALBUMIN 2.6 g/dl (3.4-5.0); BLOOD UREA NITROGEN 18.1 mg/dL (7-18)
[2020-12-19 09:59] LABS: CREATININE 0.8 mg/dL (0.55-1.3)
[2020-12-19 10:00] LABS: CREATININE 0.8 mg/dL (0.55-1.3)
[2020-12-19 10:01] LABS: BILIRUBIN,TOTAL 1.2 mg/dL (0.2-1)
[2020-12-19 11:02] LABS: ANISOCYTOSIS 1+
[2020-12-19 11:04] LABS: PLATELET ESTIMATE SLT DECREASE
[2020-12-19] MEDS: ONDANSETRON 4 MG/2 ML VIAL IVPUSH PRN (16:23)
[2020-12-19] MEDS ORDERED: PT OWN MED DRAWER 7, Y5N ONE (21:43)
[2020-12-20] MEDS ORDERED: DEXTROSE 5%-WATER - 50 ML IVPB ONE ×2 (01:00→10:03)
[2020-12-20] MEDS ORDERED: PIPERACILLIN/TAZOBACTAM 3.375 GM VIAL IVPB ONE ×2 (01:00→10:02)
[2020-12-20] MEDS: ONDANSETRON 4 MG/2 ML VIAL IVPUSH PRN ×3 (01:33→17:39)
[2020-12-20] MEDS: PIPERACILLIN/TAZOB 3.375 GM 3.375 GM in DEXTROSE 5%-WATER - 50 ML IVPB SCH ×2 (01:33→10:06)
[2020-12-20] MEDS: D5-1/2NS+10 MEQ KCL - 10 MEQ/1,000 ML INFUS.BAG IV SCH (06:53)
[2020-12-20] MEDS: TAMSULOSIN HCL 0.4 MG CAP PO SCH (09:13)
[2020-12-20] MEDS: PANTOPRAZOLE SODIUM 40 MG VIAL IVPUSH SCH ×2 (10:06→21:12)
[2020-12-20] MEDS: FOLIC ACID 1 MG TABLET (FP) PO SCH (10:06)
[2020-12-20] MEDS: APIXABAN 5 MG TABLET PO SCH ×2 (10:06→23:21)
[2020-12-20] MEDS: ALLOPURINOL 100 MG TABLET (FP) PO SCH ×2 (10:06→23:21)
[2020-12-20] MEDS: RANOLAZINE E.R. 500 MG TABLET (FP) PO SCH ×2 (10:06→23:21)
[2020-12-20] MEDS: ASPIRIN 81 MG CHEWABLE TABLETS PO SCH (10:07)
[2020-12-20] MEDS: SUCRALFATE 1 GM TABLET (FP) PO SCH ×2 (10:08→23:21)
[2020-12-20] MEDS: MAG HYDROX/AL HYDROX/SIMETH 30 ML UNIT-DOSE CUP PO PRN ×2 (10:09→21:12)
[2020-12-20 16:17] LABS: HEMATOCRIT 26.1 % (35.4-49); HEMOGLOBIN 8.7 GM/dL (11.7-16.9); MCH 31.9 pg (25.7-33.7); MCHC 33.3 g/dl (32.0-35.9); MEAN CELL VOLUME 95.8 fl (80-96); MEAN PLT VOLUME 10.1 fl (7.5-11.1); PLATELET COUNT 54 10^3/uL (134-434); RBC 2.72 M/mm3 (4.00-5.60); RDW 18.1 % (11.9-15.9); WHITE BLOOD COUNT 17.5 K/mm3 (4.0-10.0)
[2020-12-20 16:29] LABS: BLOOD UREA NITROGEN 13.1 mg/dL (7-18); CALCIUM 7.3 mg/dL (8.5-10.1)
[2020-12-20 16:33] LABS: CREATININE 0.6 mg/dL (0.55-1.3)
[2020-12-20 16:55] LABS: ANISOCYTOSIS 2+; MACROCYTOSIS 2+; PLATELET ESTIMATE DECREASED; TARGET CELLS 1+
[2020-12-20] MEDS ORDERED: MELATONIN 5 MG TABLETS PO ONE (23:10)
[2020-12-20] MEDS ORDERED: METOCLOPRAMIDE HCL INJECTION 10 MG/2 ML VIAL IVPB ONE (23:10)
[2020-12-20] MEDS ORDERED: PT OWN MED DRAWER 7, Y5N ONE (23:14)
[2020-12-21] MEDS: ONDANSETRON 4 MG/2 ML VIAL IVPUSH PRN (03:27)
[2020-12-21] MEDS: MAG HYDROX/AL HYDROX/SIMETH 30 ML UNIT-DOSE CUP PO PRN (06:00)
[2020-12-21] MEDS: D5-1/2NS+10 MEQ KCL - 10 MEQ/1,000 ML INFUS.BAG IV SCH ×2 (06:01→21:43)
[2020-12-21] MEDS ORDERED: PT OWN MED DRAWER 7, Y5N ONE ×2 (08:50→20:53)
[2020-12-21] MEDS ORDERED: ONDANSETRON 4 MG/2 ML VIAL IVPUSH SCH (09:00)
[2020-12-21] MEDS: FOLIC ACID 1 MG TABLET (FP) PO SCH (09:20)
[2020-12-21] MEDS: RANOLAZINE E.R. 500 MG TABLET (FP) PO SCH ×2 (09:20→21:42)
[2020-12-21] MEDS: ASPIRIN 81 MG CHEWABLE TABLETS PO SCH (09:20)
[2020-12-21] MEDS: TAMSULOSIN HCL 0.4 MG CAP PO SCH (09:20)
[2020-12-21] MEDS: SUCRALFATE 1 GM TABLET (FP) PO SCH ×2 (09:20→21:42)
[2020-12-21] MEDS: PANTOPRAZOLE SODIUM 40 MG VIAL IVPUSH SCH (09:20)
[2020-12-21] MEDS: APIXABAN 5 MG TABLET PO SCH ×2 (09:20→21:42)
[2020-12-21] MEDS: ALLOPURINOL 100 MG TABLET (FP) PO SCH ×2 (09:21→21:42)
[2020-12-21] MEDS: METOCLOPRAMIDE HCL INJECTION 10 MG/2 ML VIAL IVPUSH SCH ×2 (10:20→17:30)
[2020-12-21] MEDS: POLYETHYLENE GLYCOL (HEALTHYLAX) 3350 17 GM PACKET PO SCH ×2 (16:11→22:00)
[2020-12-21] MEDS: MELATONIN 5 MG TABLETS PO SCH (21:42)
[2020-12-22] MEDS: METOCLOPRAMIDE HCL INJECTION 10 MG/2 ML VIAL IVPUSH SCH ×3 (02:22→17:21)
[2020-12-22] MEDS: POLYETHYLENE GLYCOL (HEALTHYLAX) 3350 17 GM PACKET PO SCH ×3 (06:07→22:01)
[2020-12-22 07:06] LABS: BASO % 0.2 % (0-2.0); EOS % 0.5 % (0-4.5); HEMATOCRIT 23.1 % (35.4-49); HEMOGLOBIN 7.8 GM/dL (11.7-16.9); MCH 32.7 pg (25.7-33.7); MCHC 33.8 g/dl (32.0-35.9); MEAN CELL VOLUME 96.8 fl (80-96); MEAN PLT VOLUME 10.9 fl (7.5-11.1); NEUT % 83.3 % (42.8-82.8); PLATELET COUNT 42 10^3/uL (134-434); RBC 2.39 M/mm3 (4.00-5.60); RDW 17.8 % (11.9-15.9); WHITE BLOOD COUNT 13.1 K/mm3 (4.0-10.0)
[2020-12-22 07:07] LABS: INR 2.54 (0.83-1.09); PROTHROMBIN TIME (PATIENT) 30.4 SEC (9.7-13.0)
[2020-12-22 07:10] LABS: ACTIVATED PTT 33.7 SECONDS (25.2-36.5)
[2020-12-22 07:11] LABS: CHLORIDE 108 mmol/L (98-107); SODIUM 136 mmol/L (136-145)
[2020-12-22 07:18] LABS: ANION GAP 4 MMOL/L (8-16); BLOOD UREA NITROGEN 10.8 mg/dL (7-18); CO2 24 mmol/L (21-32); GLUCOSE,RANDOM 165 mg/dL (74-106)
[2020-12-22 07:21] LABS: CREATININE 0.7 mg/dL (0.55-1.3); SGOT/AST 21 U/L (15-37)
[2020-12-22 07:22] LABS: SGPT/ALT 16 U/L (13-61)
[2020-12-22 07:23] LABS: BILIRUBIN,TOTAL 0.6 mg/dL (0.2-1); TOT PROT 4.1 g/dl (6.4-8.2)
[2020-12-22 07:31] LABS: ALBUMIN 1.8 g/dl (3.4-5.0); ALK PHOS 202 U/L (45-117); CALCIUM 6.9 mg/dL (8.5-10.1)
[2020-12-22] MEDS ORDERED: PT OWN MED DRAWER 7, Y5N ONE ×2 (09:27→21:06)
[2020-12-22] MEDS: D5-1/2NS+10 MEQ KCL - 10 MEQ/1,000 ML INFUS.BAG IV SCH ×2 (09:29→13:18)
[2020-12-22] MEDS: TAMSULOSIN HCL 0.4 MG CAP PO SCH (09:32)
[2020-12-22] MEDS: RANOLAZINE E.R. 500 MG TABLET (FP) PO SCH ×2 (09:32→22:01)
[2020-12-22] MEDS: ALLOPURINOL 100 MG TABLET (FP) PO SCH ×2 (09:33→22:01)
[2020-12-22] MEDS: APIXABAN 5 MG TABLET PO SCH (09:33)
[2020-12-22] MEDS: FOLIC ACID 1 MG TABLET (FP) PO SCH (09:33)
[2020-12-22] MEDS: PANTOPRAZOLE SODIUM 40 MG VIAL IVPUSH SCH (09:33)
[2020-12-22] MEDS: ASPIRIN 81 MG CHEWABLE TABLETS PO SCH (09:33)
[2020-12-22] MEDS: LISINOPRIL 5 MG TABLET PO SCH (09:33)
[2020-12-22] MEDS: SUCRALFATE 1 GM TABLET (FP) PO SCH ×2 (09:33→22:01)
[2020-12-22] MEDS: MAG HYDROX/AL HYDROX/SIMETH 30 ML UNIT-DOSE CUP PO PRN (20:44)
[2020-12-22] MEDS: NITROGLYCERIN SUBLINGUAL 1/200 0.3 MG BTL SL PRN (20:45)
[2020-12-22] MEDS: MELATONIN 5 MG TABLETS PO SCH (22:01)
[2020-12-23] MEDS: METOCLOPRAMIDE HCL INJECTION 10 MG/2 ML VIAL IVPUSH SCH ×3 (01:16→17:18)
[2020-12-23] MEDS: POLYETHYLENE GLYCOL (HEALTHYLAX) 3350 17 GM PACKET PO SCH ×3 (06:32→21:41)
[2020-12-23 06:33] LABS: HEMATOCRIT 24.4 % (35.4-49); HEMOGLOBIN 8.2 GM/dL (11.7-16.9); MCH 32.2 pg (25.7-33.7); MCHC 33.8 g/dl (32.0-35.9); MEAN CELL VOLUME 95.3 fl (80-96); PLATELET COUNT 58 10^3/uL (134-434); RBC 2.56 M/mm3 (4.00-5.60); RDW 17.2 % (11.9-15.9); WHITE BLOOD COUNT 21.7 K/mm3 (4.0-10.0)
[2020-12-23] MEDS: D5-1/2NS+10 MEQ KCL - 10 MEQ/1,000 ML INFUS.BAG IV SCH ×3 (06:39→17:18)
[2020-12-23 06:49] LABS: ALBUMIN 1.8 g/dl (3.4-5.0); BLOOD UREA NITROGEN 10.4 mg/dL (7-18)
[2020-12-23 06:53] LABS: CREATININE 0.7 mg/dL (0.55-1.3)
[2020-12-23 06:54] LABS: BILIRUBIN,TOTAL 0.5 mg/dL (0.2-1); TOT PROT 4.1 g/dl (6.4-8.2)
[2020-12-23] MEDS: MAG HYDROX/AL HYDROX/SIMETH 30 ML UNIT-DOSE CUP PO PRN ×2 (07:30→14:07)
[2020-12-23] MEDS ORDERED: PT OWN MED DRAWER 7, Y5N ONE ×3 (09:33→21:31)
[2020-12-23] MEDS: PANTOPRAZOLE SODIUM 40 MG VIAL IVPUSH SCH (09:36)
[2020-12-23] MEDS: RANOLAZINE E.R. 500 MG TABLET (FP) PO SCH ×2 (09:36→21:42)
[2020-12-23] MEDS: ACETAMINOPHEN 325 MG TABLET (FP) PO SCH ×2 (09:36→15:35)
[2020-12-23] MEDS: TAMSULOSIN HCL 0.4 MG CAP PO SCH (09:36)
[2020-12-23] MEDS: ASPIRIN 81 MG CHEWABLE TABLETS PO SCH (09:37)
[2020-12-23] MEDS: FOLIC ACID 1 MG TABLET (FP) PO SCH (09:37)
[2020-12-23] MEDS: SUCRALFATE 1 GM TABLET (FP) PO SCH ×2 (09:37→21:41)
[2020-12-23] MEDS: LISINOPRIL 5 MG TABLET PO SCH (09:37)
[2020-12-23] MEDS: ALLOPURINOL 100 MG TABLET (FP) PO SCH ×2 (09:37→21:41)
[2020-12-23 10:35] LABS: ANISOCYTOSIS 0; HELMET CELLS 0; HOWELL-JOLLY BODIES 0; MACROCYTOSIS 0; OVALOCYTE 0; PLATELET ESTIMATE DECREASED; ROULEAU 0; SICKELED CELLS 0; TARGET CELLS 0; TEAR DROP CELLS 0; TOXIC GRANULATION 0
[2020-12-23] MEDS: APIXABAN 5 MG TABLET PO SCH (21:40)
[2020-12-23] MEDS: MELATONIN 5 MG TABLETS PO SCH (21:41)
[2020-12-24] MEDS: METOCLOPRAMIDE HCL INJECTION 10 MG/2 ML VIAL IVPUSH SCH ×3 (01:34→17:00)
[2020-12-24] MEDS: ACETAMINOPHEN 325 MG TABLET (FP) PO SCH ×4 (01:35→22:30)
[2020-12-24] MEDS: POLYETHYLENE GLYCOL (HEALTHYLAX) 3350 17 GM PACKET PO SCH ×2 (05:21→13:50)
[2020-12-24] MEDS: D5-1/2NS+10 MEQ KCL - 10 MEQ/1,000 ML INFUS.BAG IV SCH ×2 (06:48→21:36)
[2020-12-24 07:29] LABS: HEMATOCRIT 23.6 % (35.4-49); HEMOGLOBIN 7.9 GM/dL (11.7-16.9); MCH 32.2 pg (25.7-33.7); MCHC 33.7 g/dl (32.0-35.9); MEAN CELL VOLUME 95.7 fl (80-96); MEAN PLT VOLUME 9.5 fl (7.5-11.1); PLATELET COUNT 79 10^3/uL (134-434); RBC 2.46 M/mm3 (4.00-5.60); RDW 17.3 % (11.9-15.9)
[2020-12-24 08:01] LABS: CALCIUM 7.3 mg/dL (8.5-10.1)
[2020-12-24 08:04] LABS: BLOOD UREA NITROGEN 10.9 mg/dL (7-18)
[2020-12-24 08:05] LABS: CREATININE 0.8 mg/dL (0.55-1.3)
[2020-12-24 08:54] LABS: ANISOCYTOSIS 0; HELMET CELLS 0; HOWELL-JOLLY BODIES 0; MACROCYTOSIS 0; OVALOCYTE 0; PLATELET ESTIMATE DECREASED; ROULEAU 0; SICKELED CELLS 0; TARGET CELLS 0; TEAR DROP CELLS 0; TOXIC GRANULATION 0
[2020-12-24] MEDS ORDERED: PT OWN MED DRAWER 7, Y5N ONE ×3 (09:08→21:31)
[2020-12-24] MEDS: SUCRALFATE 1 GM TABLET (FP) PO SCH ×2 (10:27→21:42)
[2020-12-24] MEDS: TAMSULOSIN HCL 0.4 MG CAP PO SCH (10:27)
[2020-12-24] MEDS: FOLIC ACID 1 MG TABLET (FP) PO SCH (10:27)
[2020-12-24] MEDS: ALLOPURINOL 100 MG TABLET (FP) PO SCH ×2 (10:27→21:42)
[2020-12-24] MEDS: PANTOPRAZOLE SODIUM 40 MG VIAL IVPUSH SCH (10:27)
[2020-12-24] MEDS: RANOLAZINE E.R. 500 MG TABLET (FP) PO SCH ×2 (10:27→21:42)
[2020-12-24] MEDS: APIXABAN 5 MG TABLET PO SCH ×2 (10:27→21:42)
[2020-12-24] MEDS: LISINOPRIL 5 MG TABLET PO SCH (10:27)
[2020-12-24] MEDS: ASPIRIN 81 MG CHEWABLE TABLETS PO SCH (10:27)
[2020-12-24] MEDS: MAG HYDROX/AL HYDROX/SIMETH 30 ML UNIT-DOSE CUP PO PRN ×2 (16:57→22:30)
[2020-12-24] MEDS: NITROGLYCERIN SUBLINGUAL 1/200 0.3 MG BTL SL PRN (20:10)
[2020-12-24] MEDS: MELATONIN 5 MG TABLETS PO SCH (21:42)
[2020-12-25] MEDS ORDERED: TRIMETHOBENZAMIDE HCL 200MG/2ML INJ IM ONE (00:47)
[2020-12-25] MEDS: METOCLOPRAMIDE HCL INJECTION 10 MG/2 ML VIAL IVPUSH SCH ×2 (04:06→10:48)
[2020-12-25] MEDS ORDERED: PT OWN MED DRAWER 7, Y5N ONE ×3 (06:20→21:27)
[2020-12-25 06:57] LABS: HEMATOCRIT 24.3 % (35.4-49); MCH 31.9 pg (25.7-33.7); MCHC 33.1 g/dl (32.0-35.9); MEAN CELL VOLUME 96.3 fl (80-96); MEAN PLT VOLUME 8.7 fl (7.5-11.1); PLATELET COUNT 100 10^3/uL (134-434); RBC 2.52 M/mm3 (4.00-5.60); RDW 17.9 % (11.9-15.9); WHITE BLOOD COUNT 28.8 K/mm3 (4.0-10.0)
[2020-12-25] MEDS: ACETAMINOPHEN 325 MG TABLET (FP) PO SCH ×3 (07:00→23:36)
[2020-12-25 07:06] LABS: CALCIUM 7.2 mg/dL (8.5-10.1)
[2020-12-25 07:07] LABS: BLOOD UREA NITROGEN 12.1 mg/dL (7-18)
[2020-12-25 07:10] LABS: CREATININE 0.8 mg/dL (0.55-1.3)
[2020-12-25 10:40] LABS: ANISOCYTOSIS 1+; MACROCYTOSIS 0; OVALOCYTE 1+; PLATELET ESTIMATE DECREASED; TOXIC GRANULATION 1+
[2020-12-25] MEDS: PANTOPRAZOLE SODIUM 40 MG VIAL IVPUSH SCH (10:47)
[2020-12-25] MEDS: ASPIRIN 81 MG CHEWABLE TABLETS PO SCH (10:48)
[2020-12-25] MEDS: RANOLAZINE E.R. 500 MG TABLET (FP) PO SCH ×2 (10:48→21:31)
[2020-12-25] MEDS: ALLOPURINOL 100 MG TABLET (FP) PO SCH ×2 (10:48→21:31)
[2020-12-25] MEDS: FOLIC ACID 1 MG TABLET (FP) PO SCH (10:48)
[2020-12-25] MEDS: D5-1/2NS+10 MEQ KCL - 10 MEQ/1,000 ML INFUS.BAG IV SCH (10:48)
[2020-12-25] MEDS: SUCRALFATE 1 GM TABLET (FP) PO SCH ×2 (10:48→21:31)
[2020-12-25] MEDS: LISINOPRIL 5 MG TABLET PO SCH (10:48)
[2020-12-25] MEDS: APIXABAN 5 MG TABLET PO SCH ×2 (10:48→21:31)
[2020-12-25] MEDS: TAMSULOSIN HCL 0.4 MG CAP PO SCH (10:48)
[2020-12-25] MEDS ORDERED: SIMETHICONE 80 MG TAB.CHEW (FP) PO PRN (13:01)
[2020-12-25] MEDS ORDERED: ONDANSETRON 4 MG/2 ML VIAL IVPB PRN (13:03)
[2020-12-25] MEDS: SIMETHICONE 80 MG TAB.CHEW (FP) PO SCH ×3 (13:19→21:32)
[2020-12-25] MEDS: MELATONIN 5 MG TABLETS PO SCH (21:31)
[2020-12-26] MEDS: D5-1/2NS+10 MEQ KCL - 10 MEQ/1,000 ML INFUS.BAG IV SCH (06:46)
[2020-12-26 07:26] LABS: HEMOGLOBIN 8.5 GM/dL (11.7-16.9); MCH 32.9 pg (25.7-33.7); MCHC 34.1 g/dl (32.0-35.9); MEAN CELL VOLUME 96.3 fl (80-96); MEAN PLT VOLUME 8.4 fl (7.5-11.1); PLATELET COUNT 127 10^3/uL (134-434); RDW 18.6 % (11.9-15.9); WHITE BLOOD COUNT 22.8 K/mm3 (4.0-10.0)
[2020-12-26 07:47] LABS: CALCIUM 7.6 mg/dL (8.5-10.1)
[2020-12-26 07:48] LABS: BLOOD UREA NITROGEN 9.8 mg/dL (7-18)
[2020-12-26 07:51] LABS: CREATININE 0.7 mg/dL (0.55-1.3)
[2020-12-26 09:25] LABS: ANISOCYTOSIS 1+; MACROCYTOSIS 0; PLATELET ESTIMATE DECREASED
[2020-12-26] MEDS: ACETAMINOPHEN 325 MG TABLET (FP) PO SCH ×2 (10:02→17:13)
[2020-12-26] MEDS: APIXABAN 5 MG TABLET PO SCH ×2 (10:03→21:45)
[2020-12-26] MEDS: FOLIC ACID 1 MG TABLET (FP) PO SCH (10:03)
[2020-12-26] MEDS: ASPIRIN 81 MG CHEWABLE TABLETS PO SCH (10:03)
[2020-12-26] MEDS: SIMETHICONE 80 MG TAB.CHEW (FP) PO SCH ×4 (10:03→21:46)
[2020-12-26] MEDS: ALLOPURINOL 100 MG TABLET (FP) PO SCH ×2 (10:03→21:45)
[2020-12-26] MEDS: PANTOPRAZOLE SODIUM 40 MG VIAL IVPUSH SCH (10:03)
[2020-12-26] MEDS: LISINOPRIL 5 MG TABLET PO SCH (10:03)
[2020-12-26] MEDS: SUCRALFATE 1 GM TABLET (FP) PO SCH ×2 (10:03→21:46)
[2020-12-26] MEDS: TAMSULOSIN HCL 0.4 MG CAP PO SCH (10:03)
[2020-12-26] MEDS: RANOLAZINE E.R. 500 MG TABLET (FP) PO SCH ×2 (10:03→21:45)
[2020-12-26 12:13] LABS: MAGNESIUM 1.8 mg/dL (1.8-2.4)
[2020-12-26 12:17] LABS: PHOSPHOROUS 1.8 mg/dL (2.5-4.9)
[2020-12-26] MEDS ORDERED: PT OWN MED DRAWER 7, Y5N ONE (21:44)
[2020-12-26] MEDS: MELATONIN 5 MG TABLETS PO SCH (21:45)
[2020-12-27] MEDS: ACETAMINOPHEN 325 MG TABLET (FP) PO SCH ×3 (00:33→18:05)
[2020-12-27] MEDS: D5-1/2NS+10 MEQ KCL - 10 MEQ/1,000 ML INFUS.BAG IV SCH ×2 (00:33→18:04)
[2020-12-27 07:07] LABS: HEMATOCRIT 23.2 % (35.4-49); HEMOGLOBIN 7.9 GM/dL (11.7-16.9); MCHC 33.9 g/dl (32.0-35.9); MEAN CELL VOLUME 97.3 fl (80-96); MEAN PLT VOLUME 8.7 fl (7.5-11.1); PLATELET COUNT 146 10^3/uL (134-434); RBC 2.39 M/mm3 (4.00-5.60); RDW 18.8 % (11.9-15.9)
[2020-12-27 07:48] LABS: CALCIUM 7.5 mg/dL (8.5-10.1)
[2020-12-27 07:49] LABS: BLOOD UREA NITROGEN 10.4 mg/dL (7-18)
[2020-12-27 07:52] LABS: CREATININE 0.8 mg/dL (0.55-1.3)
[2020-12-27 09:06] LABS: ANISOCYTOSIS 1+; MACROCYTOSIS 1+; PLATELET ESTIMATE DECREASED
[2020-12-27] MEDS ORDERED: PT OWN MED DRAWER 7, Y5N ONE ×2 (09:13→21:04)
[2020-12-27] MEDS: RANOLAZINE E.R. 500 MG TABLET (FP) PO SCH ×2 (09:23→21:09)
[2020-12-27] MEDS: APIXABAN 5 MG TABLET PO SCH ×2 (09:23→21:08)
[2020-12-27] MEDS: MAG HYDROX/AL HYDROX/SIMETH 30 ML UNIT-DOSE CUP PO PRN (09:23)
[2020-12-27] MEDS: TAMSULOSIN HCL 0.4 MG CAP PO SCH (09:24)
[2020-12-27] MEDS: PANTOPRAZOLE SODIUM 40 MG VIAL IVPUSH SCH (09:24)
[2020-12-27] MEDS: ASPIRIN 81 MG CHEWABLE TABLETS PO SCH (09:24)
[2020-12-27] MEDS: ALLOPURINOL 100 MG TABLET (FP) PO SCH ×2 (09:24→21:08)
[2020-12-27] MEDS: SUCRALFATE 1 GM TABLET (FP) PO SCH ×2 (09:24→21:08)
[2020-12-27] MEDS: FOLIC ACID 1 MG TABLET (FP) PO SCH (09:24)
[2020-12-27] MEDS: SIMETHICONE 80 MG TAB.CHEW (FP) PO SCH ×3 (09:24→18:07)
[2020-12-27] MEDS: LISINOPRIL 5 MG TABLET PO SCH (09:24)
[2020-12-27 11:11] VITALS: BMI 21.8
[2020-12-27] MEDS: MELATONIN 5 MG TABLETS PO SCH (21:08)
[2020-12-28] MEDS: ACETAMINOPHEN 325 MG TABLET (FP) PO SCH ×3 (00:30→16:26)
[2020-12-28] MEDS: D5-1/2NS+10 MEQ KCL - 10 MEQ/1,000 ML INFUS.BAG IV SCH (06:59)
[2020-12-28] MEDS: TAMSULOSIN HCL 0.4 MG CAP PO SCH (09:01)
[2020-12-28] MEDS: FOLIC ACID 1 MG TABLET (FP) PO SCH (09:01)
[2020-12-28] MEDS: RANOLAZINE E.R. 500 MG TABLET (FP) PO SCH ×2 (09:01→22:04)
[2020-12-28] MEDS: APIXABAN 5 MG TABLET PO SCH ×2 (09:01→22:04)
[2020-12-28] MEDS: SIMETHICONE 80 MG TAB.CHEW (FP) PO PRN ×2 (09:01→22:04)
[2020-12-28] MEDS: LISINOPRIL 5 MG TABLET PO SCH (09:01)
[2020-12-28] MEDS: ALLOPURINOL 100 MG TABLET (FP) PO SCH ×2 (09:01→22:04)
[2020-12-28] MEDS: PANTOPRAZOLE SODIUM 40 MG VIAL IVPUSH SCH (09:02)
[2020-12-28] MEDS: ASPIRIN 81 MG CHEWABLE TABLETS PO SCH (09:02)
[2020-12-28] MEDS ORDERED: PT OWN MED DRAWER 7, Y5N ONE ×2 (09:33→22:07)
[2020-12-28] MEDS: SUCRALFATE 1 GM TABLET (FP) PO SCH ×2 (10:03→22:07)
[2020-12-28 15:49] LABS: HEMOGLOBIN 9.7 GM/dL (11.7-16.9); MCH 32.2 pg (25.7-33.7); MCHC 33.5 g/dl (32.0-35.9); MEAN CELL VOLUME 95.9 fl (80-96); PLATELET COUNT 183 10^3/uL (134-434); RBC 3.03 M/mm3 (4.00-5.60); RDW 17.7 % (11.9-15.9)
[2020-12-28 16:06] LABS: CALCIUM 7.7 mg/dL (8.5-10.1)
[2020-12-28 16:07] LABS: BLOOD UREA NITROGEN 12.8 mg/dL (7-18)
[2020-12-28 16:10] LABS: CREATININE 0.7 mg/dL (0.55-1.3)
[2020-12-28 19:05] LABS: ANISOCYTOSIS 1+; MACROCYTOSIS 1+; PLATELET ESTIMATE NORMAL
[2020-12-28] MEDS: MELATONIN 5 MG TABLETS PO SCH (22:04)
[2020-12-29] MEDS: ACETAMINOPHEN 325 MG TABLET (FP) PO SCH ×3 (01:03→16:59)
[2020-12-29 07:16] LABS: HEMATOCRIT 27.9 % (35.4-49); HEMOGLOBIN 9.7 GM/dL (11.7-16.9); MCH 32.9 pg (25.7-33.7); MCHC 34.7 g/dl (32.0-35.9); MEAN CELL VOLUME 95.1 fl (80-96); MEAN PLT VOLUME 7.7 fl (7.5-11.1); PLATELET COUNT 196 10^3/uL (134-434); RBC 2.93 M/mm3 (4.00-5.60); RDW 18.6 % (11.9-15.9)
[2020-12-29 07:23] LABS: BLOOD UREA NITROGEN 15.4 mg/dL (7-18); CALCIUM 7.7 mg/dL (8.5-10.1)
[2020-12-29 07:26] LABS: CREATININE 0.8 mg/dL (0.55-1.3)
[2020-12-29] MEDS ORDERED: PT OWN MED DRAWER 7, Y5N ONE ×2 (09:09→22:09)
[2020-12-29] MEDS: LISINOPRIL 5 MG TABLET PO SCH (09:21)
[2020-12-29] MEDS: ASPIRIN 81 MG CHEWABLE TABLETS PO SCH (09:21)
[2020-12-29] MEDS: APIXABAN 5 MG TABLET PO SCH ×2 (09:21→22:18)
[2020-12-29] MEDS: PANTOPRAZOLE SODIUM 40 MG VIAL IVPUSH SCH (09:21)
[2020-12-29] MEDS: TAMSULOSIN HCL 0.4 MG CAP PO SCH (09:21)
[2020-12-29] MEDS: FOLIC ACID 1 MG TABLET (FP) PO SCH (09:21)
[2020-12-29] MEDS: ALLOPURINOL 100 MG TABLET (FP) PO SCH ×2 (09:21→22:19)
[2020-12-29] MEDS: RANOLAZINE E.R. 500 MG TABLET (FP) PO SCH ×2 (09:21→22:19)
[2020-12-29] MEDS: SUCRALFATE 1 GM TABLET (FP) PO SCH ×2 (09:22→22:18)
[2020-12-29 09:33] LABS: ANISOCYTOSIS 1+; MACROCYTOSIS 1+; PLATELET ESTIMATE NORMAL
[2020-12-29] MEDS: MELATONIN 5 MG TABLETS PO SCH (22:18)
[2020-12-30] MEDS: ACETAMINOPHEN 325 MG TABLET (FP) PO SCH ×4 (00:26→23:30)
[2020-12-30] MEDS ORDERED: PT OWN MED DRAWER 7, Y5N ONE ×2 (09:11→21:21)
[2020-12-30] MEDS: FOLIC ACID 1 MG TABLET (FP) PO SCH (09:36)
[2020-12-30] MEDS: APIXABAN 5 MG TABLET PO SCH ×2 (09:36→21:19)
[2020-12-30] MEDS: PANTOPRAZOLE SODIUM 40 MG VIAL IVPUSH SCH (09:36)
[2020-12-30] MEDS: LISINOPRIL 5 MG TABLET PO SCH (09:37)
[2020-12-30] MEDS: SUCRALFATE 1 GM TABLET (FP) PO SCH ×2 (09:37→21:23)
[2020-12-30] MEDS: TAMSULOSIN HCL 0.4 MG CAP PO SCH (09:37)
[2020-12-30] MEDS: ASPIRIN 81 MG CHEWABLE TABLETS PO SCH (09:37)
[2020-12-30] MEDS: ALLOPURINOL 100 MG TABLET (FP) PO SCH ×2 (09:37→21:19)
[2020-12-30] MEDS: RANOLAZINE E.R. 500 MG TABLET (FP) PO SCH ×2 (09:37→21:19)
[2020-12-30] MEDS: MELATONIN 5 MG TABLETS PO SCH (21:19)
[2020-12-30] MEDS: SIMETHICONE 80 MG TAB.CHEW (FP) PO PRN (21:19)
[2020-12-31 07:44] LABS: CALCIUM 7.4 mg/dL (8.5-10.1)
[2020-12-31 07:45] LABS: BLOOD UREA NITROGEN 17.8 mg/dL (7-18)
[2020-12-31 07:48] LABS: BASO % 0.7 % (0-2.0); CREATININE 0.7 mg/dL (0.55-1.3); EOS % 2.4 % (0-4.5); HEMATOCRIT 27.5 % (35.4-49); HEMOGLOBIN 9.6 GM/dL (11.7-16.9); LYMPH % 16.1 % (8-40); MEAN CELL VOLUME 97.4 fl (80-96); MONO % 12.1 % (3.8-10.2); NEUT % 68.7 % (42.8-82.8); PLATELET COUNT 273 10^3/uL (134-434); RBC 2.82 M/mm3 (4.00-5.60); RDW 19.1 % (11.9-15.9)
[2020-12-31] MEDS ORDERED: PT OWN MED DRAWER 7, Y5N ONE ×2 (08:10→20:57)
[2020-12-31] MEDS: RANOLAZINE E.R. 500 MG TABLET (FP) PO SCH ×2 (09:10→21:08)
[2020-12-31] MEDS: ACETAMINOPHEN 325 MG TABLET (FP) PO SCH ×2 (09:10→16:58)
[2020-12-31] MEDS: FOLIC ACID 1 MG TABLET (FP) PO SCH (09:10)
[2020-12-31] MEDS: LISINOPRIL 5 MG TABLET PO SCH (09:10)
[2020-12-31] MEDS: ASPIRIN 81 MG CHEWABLE TABLETS PO SCH (09:10)
[2020-12-31] MEDS: APIXABAN 5 MG TABLET PO SCH ×2 (09:10→21:08)
[2020-12-31] MEDS: SUCRALFATE 1 GM TABLET (FP) PO SCH ×2 (09:10→21:07)
[2020-12-31] MEDS: PANTOPRAZOLE SODIUM 40 MG VIAL IVPUSH SCH (09:10)
[2020-12-31] MEDS: TAMSULOSIN HCL 0.4 MG CAP PO SCH (09:10)
[2020-12-31] MEDS: ALLOPURINOL 100 MG TABLET (FP) PO SCH ×2 (09:10→21:07)
[2020-12-31] MEDS: MELATONIN 5 MG TABLETS PO SCH (21:08)
[2021-01-01] MEDS: ACETAMINOPHEN 325 MG TABLET (FP) PO SCH ×2 (00:24→09:25)
[2021-01-01] MEDS: SIMETHICONE 80 MG TAB.CHEW (FP) PO PRN (06:27)
[2021-01-01] MEDS ORDERED: PT OWN MED DRAWER 7, Y5N ONE (08:50)
[2021-01-01] MEDS: LISINOPRIL 5 MG TABLET PO SCH (09:25)
[2021-01-01] MEDS: FOLIC ACID 1 MG TABLET (FP) PO SCH (09:25)
[2021-01-01] MEDS: ALLOPURINOL 100 MG TABLET (FP) PO SCH (09:25)
[2021-01-01] MEDS: PANTOPRAZOLE SODIUM 40 MG VIAL IVPUSH SCH (09:26)
[2021-01-01] MEDS: ASPIRIN 81 MG CHEWABLE TABLETS PO SCH (09:26)
[2021-01-01] MEDS: TAMSULOSIN HCL 0.4 MG CAP PO SCH (09:26)
[2021-01-01] MEDS: APIXABAN 5 MG TABLET PO SCH (09:26)
[2021-01-01] MEDS: SUCRALFATE 1 GM TABLET (FP) PO SCH (09:26)
[2021-01-01] MEDS: RANOLAZINE E.R. 500 MG TABLET (FP) PO SCH (09:26)
[2021-01-01 15:27] VITALS: BP 114/55; PULSE 76; TEMP 97.9
== END 2021-01-01 17:31 | disposition home or self-care (01) | DRG 436 ==
LOC: JER 20:27 → JERBED 23:16 → J4S 12-19 04:34
PROVIDERS: ADMIT Internal Medicine; ATTEND Internal Medicine
PROC: 30233N1 Transfusion of Nonautologous Red Blood Cells into Peripheral Vein, Percutaneous Approach (ICD-10-PCS; principal; 2020-12-28)
DX: C25.9 Malignant neoplasm of pancreas, unspecified (principal); I24.9 Acute ischemic heart disease, unspecified; C24.0 Malignant neoplasm of extrahepatic bile duct; D61.818 Other pancytopenia; C24.1 Malignant neoplasm of ampulla of Vater; E87.2 Acidosis; I25.110 Atherosclerotic heart disease of native coronary artery with unstable angina pectoris; I50.42 Chronic combined systolic (congestive) and diastolic (congestive) heart failure; I95.9 Hypotension, unspecified; D72.829 Elevated white blood cell count, unspecified; E78.5 Hyperlipidemia, unspecified; D69.6 Thrombocytopenia, unspecified; D64.9 Anemia, unspecified; I44.7 Left bundle-branch block, unspecified; I73.9 Peripheral vascular disease, unspecified; Z79.01 Long term (current) use of anticoagulants; E83.51 Hypocalcemia; I11.0 Hypertensive heart disease with heart failure; C61 Malignant neoplasm of prostate; K21.9 Gastro-esophageal reflux disease without esophagitis; I48.0 Paroxysmal atrial fibrillation; R07.9 Chest pain, unspecified; R63.0 Anorexia; M79.641 Pain in right hand; R01.1 Cardiac murmur, unspecified; K44.9 Diaphragmatic hernia without obstruction or gangrene; Z95.1 Presence of aortocoronary bypass graft; Z98.61 Coronary angioplasty status; R19.7 Diarrhea, unspecified; N40.0 Benign prostatic hyperplasia without lower urinary tract symptoms
CPT/HCPCS: 36415; 36430; 36511; 71045-TC-FY; 73130-TC-RT-FY; 74176-TC; 80048; 80053; 80061; 81003; 82550; 82553; 82962; 83605; 83735; 83880; 84100; 84484; 85025; 85610; 85651; 85730; 86140; 86850; 86900; 86901; 86922; 87040; 87086; 87177; 87209; 87324; 87449; 93005; 93010; 97116-GP; 97161-GP; 99285-25; C9803; J0131; P9038; P9058; Q9967; U0003; U0005

== ENCOUNTER 2021-05-31 12:49 | Inpatient (IN) | payer OTHER, MEDICARE ==
[2021-05-31 13:43] VITALS: BMI 21.1
[2021-05-31] MEDS ORDERED: morphine SULFATE 4 MG/ML VIAL IVPUSH ONE (14:07)
[2021-05-31] MEDS ORDERED: morphine SULFATE 4 MG/ML VIAL ONE (14:36)
[2021-05-31 15:24] LABS: BASO % 0.2 % (0-2.0); EOS % 0.9 % (0-4.5); HEMATOCRIT 28.2 % (35.4-49); HEMOGLOBIN 9.5 GM/dL (11.7-16.9); LYMPH % 5.8 % (8-40); MCH 30.1 pg (25.7-33.7); MCHC 33.9 g/dl (32.0-35.9); MEAN PLT VOLUME 8.1 fl (7.5-11.1); MONO % 12.8 % (3.8-10.2); NEUT % 80.3 % (42.8-82.8); PLATELET COUNT 304 10^3/uL (134-434); RBC 3.17 M/mm3 (4.00-5.60); RDW 15.7 % (11.9-15.9); WHITE BLOOD COUNT 10.3 K/mm3 (4.0-10.0)
[2021-05-31 15:38] LABS: CALCIUM 8.3 mg/dL (8.5-10.1)
[2021-05-31 15:39] LABS: ALBUMIN 2.3 g/dl (3.4-5.0); BLOOD UREA NITROGEN 23.1 mg/dL (7-18)
[2021-05-31 15:42] LABS: CREATININE 0.9 mg/dL (0.55-1.3)
[2021-05-31 15:44] LABS: BILIRUBIN,TOTAL 0.5 mg/dL (0.2-1); TOT PROT 5.7 g/dl (6.4-8.2)
[2021-05-31 15:47] LABS: EPI CELLS 19 /uL (0-25.1); HYALINE CASTS 2 /uL (0-3.1); PH,URINE 6.5 (5.0-8.0); URINE APPEARANCE CLEAR; URINE BACTERIA 9 /uL (0-1359); URINE BILIRUBIN NEGATIVE (NEGATIVE); URINE COLOR DK YELLOW; URINE GLUCOSE (UA) NEGATIVE (NEGATIVE); URINE KETONE TRACE (NEGATIVE); URINE LEUK ESTERASE TRACE (NEGATIVE); URINE NITRITE NEGATIVE (NEGATIVE); URINE PROTEIN TRACE (NEGATIVE); URINE RBC 11 /uL (0-23.9); URINE WBC 7 /uL (0-25.8)
[2021-05-31] MEDS ORDERED: SODIUM CHLORIDE 0.9% 500 ML INFUS.BAG IV ONE (15:56)
[2021-05-31] MEDS ORDERED: morphine CARPU-JECT 2 MG/1 ML DISP.SYRIN IVPUSH ONE (15:58)
[2021-05-31] MEDS ORDERED: POLYETHYLENE GLYCOL 3350 119 GM BTL PO PRN (21:23)
[2021-05-31] MEDS ORDERED: FUROSEMIDE 20 MG TABLET (FP) PO PRN (21:31)
[2021-05-31] MEDS ORDERED: APIXABAN 5 MG TABLET ONE (23:13)
[2021-05-31] MEDS ORDERED: POLYETHYLENE GLYCOL (HEALTHYLAX) 3350 17 GM PACKET ONE (23:13)
[2021-05-31] MEDS ORDERED: ACETAMINOPHEN 325 MG TABLET (FP) ONE (23:13)
[2021-05-31] MEDS: RANOLAZINE E.R. 500 MG TABLET (FP) PO SCH (23:31)
[2021-05-31] MEDS: COLCHICINE 0.6 MG TAB PO SCH (23:31)
[2021-05-31] MEDS: APIXABAN 5 MG TABLET PO SCH (23:31)
[2021-05-31] MEDS: POLYETHYLENE GLYCOL (HEALTHYLAX) 3350 17 GM PACKET PO SCH (23:31)
[2021-05-31] MEDS: ACETAMINOPHEN 325 MG TABLET (FP) PO PRN (23:31)
[2021-05-31] MEDS: NITROGLYCERIN SUBLINGUAL 1/150 0.4 MG TAB SL PRN (23:40)
[2021-06-01 00:08] LABS: MAGNESIUM 2.2 mg/dL (1.8-2.4)
[2021-06-01] MEDS ORDERED: MELATONIN 5 MG TABLETS PO ONE (00:37)
[2021-06-01] MEDS ORDERED: MELATONIN 5 MG TABLETS ONE (00:58)
[2021-06-01] MEDS: NYSTATIN POWDER 100,000 UNITS/GM - 15 GM TOPICAL POWDER TP SCH ×3 (06:20→21:22)
[2021-06-01 08:26] LABS: BASO % 0.6 % (0-2.0); EOS % 2.2 % (0-4.5); HEMATOCRIT 28.6 % (35.4-49); HEMOGLOBIN 9.4 GM/dL (11.7-16.9); LYMPH % 8.6 % (8-40); MCH 29.7 pg (25.7-33.7); MCHC 33.1 g/dl (32.0-35.9); MEAN CELL VOLUME 89.9 fl (80-96); MEAN PLT VOLUME 8.2 fl (7.5-11.1); MONO % 10.3 % (3.8-10.2); NEUT % 78.3 % (42.8-82.8); PLATELET COUNT 277 10^3/uL (134-434); RBC 3.18 M/mm3 (4.00-5.60); RDW 15.6 % (11.9-15.9)
[2021-06-01 08:31] LABS: BLOOD UREA NITROGEN 21.6 mg/dL (7-18)
[2021-06-01 08:35] LABS: CREATININE 0.7 mg/dL (0.55-1.3)
[2021-06-01] MEDS ORDERED: APIXABAN 5 MG TABLET ONE ×2 (09:20→20:58)
[2021-06-01] MEDS ORDERED: ASPIRIN 81 MG CHEWABLE TABLETS ONE (09:20)
[2021-06-01] MEDS ORDERED: ISOSORBIDE MONONITRATE 60 MG TAB.SR.24H (FP) PO ONE (09:21)
[2021-06-01] MEDS ORDERED: LISINOPRIL 5 MG TABLET ONE (09:21)
[2021-06-01] MEDS ORDERED: FOLIC ACID 1 MG TABLET (FP) ONE (09:21)
[2021-06-01] MEDS: APIXABAN 5 MG TABLET PO SCH ×2 (09:36→21:22)
[2021-06-01] MEDS: ASPIRIN 81 MG CHEWABLE TABLETS PO SCH (09:36)
[2021-06-01] MEDS: FOLIC ACID 1 MG TABLET (FP) PO SCH (09:36)
[2021-06-01] MEDS: ISOSORBIDE MONONITRATE 60 MG TAB.SR.24H (FP) PO SCH (09:37)
[2021-06-01] MEDS: LISINOPRIL 5 MG TABLET PO SCH (09:37)
[2021-06-01] MEDS: RANOLAZINE E.R. 500 MG TABLET (FP) PO SCH (10:40)
[2021-06-01] MEDS: COLCHICINE 0.6 MG TAB PO SCH ×2 (10:40→21:22)
[2021-06-01] MEDS: ALLOPURINOL 100 MG TABLET (FP) PO SCH (10:40)
[2021-06-01] MEDS ORDERED: morphine CARPU-JECT 4 MG/1 ML DISP.SYRIN IVPUSH ONE (17:49)
[2021-06-01] MEDS ORDERED: morphine SULFATE 4 MG/ML VIAL ONE (18:01)
[2021-06-01] MEDS ORDERED: ONDANSETRON 4 MG/2 ML VIAL IVPUSH ONE (20:07)
[2021-06-01] MEDS ORDERED: ONDANSETRON 4 MG/2 ML VIAL ONE (20:20)
[2021-06-01] MEDS: ONDANSETRON 4 MG/2 ML VIAL IVPUSH SCH ×2 (20:48→20:49)
[2021-06-01] MEDS ORDERED: POLYETHYLENE GLYCOL (HEALTHYLAX) 3350 17 GM PACKET ONE (20:58)
[2021-06-01] MEDS ORDERED: SUCRALFATE 1 GM TABLET (FP) ONE (20:59)
[2021-06-01] MEDS ORDERED: PANTOPRAZOLE SODIUM 40 MG VIAL ONE (20:59)
[2021-06-01] MEDS: DEXTROSE 5%-0.45% SALINE 1,000 ML IV SCH (21:22)
[2021-06-01] MEDS: POLYETHYLENE GLYCOL (HEALTHYLAX) 3350 17 GM PACKET PO SCH (21:22)
[2021-06-01] MEDS: PANTOPRAZOLE SODIUM 40 MG VIAL IVPUSH SCH (21:23)
[2021-06-01] MEDS: SUCRALFATE 1 GM TABLET (FP) PO SCH (21:23)
[2021-06-01 21:53] LABS: BASO % 0.3 % (0-2.0); EOS % 0.9 % (0-4.5); HEMATOCRIT 28.5 % (35.4-49); HEMOGLOBIN 9.1 GM/dL (11.7-16.9); MCH 28.9 pg (25.7-33.7); MCHC 32.1 g/dl (32.0-35.9); MEAN CELL VOLUME 90.3 fl (80-96); MEAN PLT VOLUME 8.1 fl (7.5-11.1); MONO % 9.8 % (3.8-10.2); PLATELET COUNT 285 10^3/uL (134-434); RBC 3.15 M/mm3 (4.00-5.60); RDW 15.8 % (11.9-15.9); WHITE BLOOD COUNT 11.7 K/mm3 (4.0-10.0)
[2021-06-01 22:15] LABS: CALCIUM 8.7 mg/dL (8.5-10.1)
[2021-06-01 22:16] LABS: BLOOD UREA NITROGEN 22.1 mg/dL (7-18)
[2021-06-01 22:19] LABS: CREATININE 0.7 mg/dL (0.55-1.3)
[2021-06-02] MEDS: RANOLAZINE E.R. 500 MG TABLET (FP) PO SCH ×3 (01:32→21:20)
[2021-06-02] MEDS: ONDANSETRON 4 MG/2 ML VIAL IVPUSH SCH ×3 (06:39→21:20)
[2021-06-02] MEDS: NYSTATIN POWDER 100,000 UNITS/GM - 15 GM TOPICAL POWDER TP SCH ×3 (06:39→21:35)
[2021-06-02] MEDS: LISINOPRIL 5 MG TABLET PO SCH (09:40)
[2021-06-02] MEDS: ASPIRIN 81 MG CHEWABLE TABLETS PO SCH (09:40)
[2021-06-02] MEDS: FOLIC ACID 1 MG TABLET (FP) PO SCH (09:40)
[2021-06-02] MEDS: ISOSORBIDE MONONITRATE 60 MG TAB.SR.24H (FP) PO SCH (09:40)
[2021-06-02] MEDS: ALLOPURINOL 100 MG TABLET (FP) PO SCH (09:40)
[2021-06-02] MEDS: SUCRALFATE 1 GM TABLET (FP) PO SCH ×2 (09:40→21:20)
[2021-06-02] MEDS: PANTOPRAZOLE SODIUM 40 MG VIAL IVPUSH SCH ×2 (09:41→21:20)
[2021-06-02] MEDS: COLCHICINE 0.6 MG TAB PO SCH ×2 (09:42→21:20)
[2021-06-02] MEDS: POLYETHYLENE GLYCOL (HEALTHYLAX) 3350 17 GM PACKET PO SCH (21:27)
[2021-06-02] MEDS: DEXTROSE 5%-0.45% SALINE 1,000 ML IV SCH (21:32)
[2021-06-03] MEDS: NITROGLYCERIN SUBLINGUAL 1/150 0.4 MG TAB SL PRN ×2 (03:46→22:00)
[2021-06-03] MEDS: ACETAMINOPHEN 325 MG TABLET (FP) PO PRN (04:12)
[2021-06-03] MEDS: NYSTATIN POWDER 100,000 UNITS/GM - 15 GM TOPICAL POWDER TP SCH ×3 (05:20→22:10)
[2021-06-03] MEDS: ONDANSETRON 4 MG/2 ML VIAL IVPUSH SCH ×3 (05:20→21:58)
[2021-06-03 07:27] LABS: BASO % 0.5 % (0-2.0); EOS % 3.1 % (0-4.5); HEMATOCRIT 27.6 % (35.4-49); HEMOGLOBIN 8.9 GM/dL (11.7-16.9); MCH 29.3 pg (25.7-33.7); MCHC 32.4 g/dl (32.0-35.9); MEAN CELL VOLUME 90.4 fl (80-96); MEAN PLT VOLUME 8.5 fl (7.5-11.1); MONO % 12.3 % (3.8-10.2); NEUT % 77.1 % (42.8-82.8); PLATELET COUNT 285 10^3/uL (134-434); RBC 3.05 M/mm3 (4.00-5.60); RDW 15.5 % (11.9-15.9); WHITE BLOOD COUNT 10.9 K/mm3 (4.0-10.0)
[2021-06-03 07:37] LABS: CALCIUM 8.1 mg/dL (8.5-10.1)
[2021-06-03 07:38] LABS: BLOOD UREA NITROGEN 21.6 mg/dL (7-18)
[2021-06-03 07:41] LABS: CREATININE 0.8 mg/dL (0.55-1.3)
[2021-06-03] MEDS: COLCHICINE 0.6 MG TAB PO SCH ×2 (11:45→22:08)
[2021-06-03] MEDS: ISOSORBIDE MONONITRATE 60 MG TAB.SR.24H (FP) PO SCH (11:46)
[2021-06-03] MEDS: FOLIC ACID 1 MG TABLET (FP) PO SCH (11:46)
[2021-06-03] MEDS: ASPIRIN 81 MG CHEWABLE TABLETS PO SCH (11:46)
[2021-06-03] MEDS: SUCRALFATE 1 GM TABLET (FP) PO SCH ×2 (11:46→22:07)
[2021-06-03] MEDS: LISINOPRIL 5 MG TABLET PO SCH (11:46)
[2021-06-03] MEDS: ALLOPURINOL 100 MG TABLET (FP) PO SCH (11:47)
[2021-06-03] MEDS: RANOLAZINE E.R. 500 MG TABLET (FP) PO SCH ×2 (11:47→22:07)
[2021-06-03] MEDS: PANTOPRAZOLE SODIUM 40 MG VIAL IVPUSH SCH ×2 (11:47→22:10)
[2021-06-03] MEDS: DEXTROSE 5%-0.45% SALINE 1,000 ML IV SCH (20:45)
[2021-06-03] MEDS: POLYETHYLENE GLYCOL (HEALTHYLAX) 3350 17 GM PACKET PO SCH (22:07)
[2021-06-03] MEDS: SULFAMETHOXAZOLE/TRIMETHOPRIM 800MG/160MG D.S. TABLET PO SCH (22:07)
[2021-06-03] MEDS: MUPIROCIN CA 2% TOPICAL CREAM 15 GM TUBE TP SCH (22:07)
[2021-06-03] MEDS: ZOLPIDEM TARTRATE 5 MG TABLET PO PRN (22:14)
[2021-06-04] MEDS: DEXTROSE 5%-0.45% SALINE 1,000 ML IV SCH ×3 (01:03→21:27)
[2021-06-04] MEDS: ONDANSETRON 4 MG/2 ML VIAL IVPUSH SCH ×3 (04:36→21:27)
[2021-06-04] MEDS: MUPIROCIN CA 2% TOPICAL CREAM 15 GM TUBE TP SCH ×3 (05:17→21:34)
[2021-06-04] MEDS: NYSTATIN POWDER 100,000 UNITS/GM - 15 GM TOPICAL POWDER TP SCH ×3 (05:17→21:34)
[2021-06-04 07:27] LABS: BASO % 0.3 % (0-2.0); EOS % 4.7 % (0-4.5); HEMATOCRIT 25.8 % (35.4-49); HEMOGLOBIN 8.4 GM/dL (11.7-16.9); LYMPH % 7.8 % (8-40); MCH 29.3 pg (25.7-33.7); MCHC 32.7 g/dl (32.0-35.9); MEAN CELL VOLUME 89.8 fl (80-96); MEAN PLT VOLUME 8.1 fl (7.5-11.1); MONO % 11.8 % (3.8-10.2); NEUT % 75.4 % (42.8-82.8); PLATELET COUNT 262 10^3/uL (134-434); RBC 2.87 M/mm3 (4.00-5.60); RDW 15.5 % (11.9-15.9); WHITE BLOOD COUNT 9.9 K/mm3 (4.0-10.0)
[2021-06-04 07:43] LABS: BLOOD UREA NITROGEN 20.2 mg/dL (7-18); CALCIUM 7.8 mg/dL (8.5-10.1)
[2021-06-04 07:47] LABS: CREATININE 0.8 mg/dL (0.55-1.3)
[2021-06-04] MEDS: ISOSORBIDE MONONITRATE 60 MG TAB.SR.24H (FP) PO SCH (09:04)
[2021-06-04] MEDS: ASPIRIN 81 MG CHEWABLE TABLETS PO SCH (09:04)
[2021-06-04] MEDS: FOLIC ACID 1 MG TABLET (FP) PO SCH (09:04)
[2021-06-04] MEDS: ALLOPURINOL 100 MG TABLET (FP) PO SCH (09:04)
[2021-06-04] MEDS: LISINOPRIL 5 MG TABLET PO SCH (09:04)
[2021-06-04] MEDS: APIXABAN 5 MG TABLET PO SCH ×2 (09:04→21:27)
[2021-06-04] MEDS: PANTOPRAZOLE SODIUM 40 MG VIAL IVPUSH SCH ×2 (09:04→21:27)
[2021-06-04] MEDS: SULFAMETHOXAZOLE/TRIMETHOPRIM 800MG/160MG D.S. TABLET PO SCH ×2 (09:04→21:27)
[2021-06-04] MEDS: SUCRALFATE 1 GM TABLET (FP) PO SCH ×2 (09:05→21:27)
[2021-06-04] MEDS: COLCHICINE 0.6 MG TAB PO SCH ×2 (09:05→21:27)
[2021-06-04] MEDS: RANOLAZINE E.R. 500 MG TABLET (FP) PO SCH ×2 (09:05→21:27)
[2021-06-04] MEDS: ZOLPIDEM TARTRATE 5 MG TABLET PO PRN (21:27)
[2021-06-04] MEDS: POLYETHYLENE GLYCOL (HEALTHYLAX) 3350 17 GM PACKET PO SCH (21:28)
[2021-06-04] MEDS: NITROGLYCERIN SUBLINGUAL 1/150 0.4 MG TAB SL PRN (23:32)
[2021-06-05] MEDS: ACETAMINOPHEN 325 MG TABLET (FP) PO PRN ×3 (01:15→23:16)
[2021-06-05] MEDS: ONDANSETRON 4 MG/2 ML VIAL IVPUSH SCH ×3 (05:52→21:50)
[2021-06-05] MEDS: NYSTATIN POWDER 100,000 UNITS/GM - 15 GM TOPICAL POWDER TP SCH ×3 (05:53→21:51)
[2021-06-05] MEDS: MUPIROCIN CA 2% TOPICAL CREAM 15 GM TUBE TP SCH ×3 (05:53→21:51)
[2021-06-05] MEDS: SULFAMETHOXAZOLE/TRIMETHOPRIM 800MG/160MG D.S. TABLET PO SCH ×2 (10:10→21:50)
[2021-06-05] MEDS: LISINOPRIL 5 MG TABLET PO SCH (10:11)
[2021-06-05] MEDS: APIXABAN 5 MG TABLET PO SCH ×2 (10:11→21:50)
[2021-06-05] MEDS: FOLIC ACID 1 MG TABLET (FP) PO SCH (10:11)
[2021-06-05] MEDS: ALLOPURINOL 100 MG TABLET (FP) PO SCH (10:11)
[2021-06-05] MEDS: RANOLAZINE E.R. 500 MG TABLET (FP) PO SCH ×2 (10:11→21:51)
[2021-06-05] MEDS: COLCHICINE 0.6 MG TAB PO SCH ×2 (10:11→21:50)
[2021-06-05] MEDS: SUCRALFATE 1 GM TABLET (FP) PO SCH ×2 (10:11→21:51)
[2021-06-05] MEDS: ISOSORBIDE MONONITRATE 60 MG TAB.SR.24H (FP) PO SCH (10:11)
[2021-06-05] MEDS: ASPIRIN 81 MG CHEWABLE TABLETS PO SCH (10:11)
[2021-06-05] MEDS: PANTOPRAZOLE SODIUM 40 MG VIAL IVPUSH SCH ×2 (10:11→21:50)
[2021-06-05] MEDS ORDERED: SODIUM PHOSPHATE/NA BIPHOS 133 ML ENEMA PR ONE (18:25)
[2021-06-05] MEDS: POLYETHYLENE GLYCOL (HEALTHYLAX) 3350 17 GM PACKET PO SCH (21:50)
[2021-06-05] MEDS: MELATONIN 5 MG TABLETS PO PRN (21:50)
[2021-06-05] MEDS: ZOLPIDEM TARTRATE 5 MG TABLET PO PRN (21:51)
[2021-06-05] MEDS: DEXTROSE 5%-0.45% SALINE 1,000 ML IV SCH (21:51)
[2021-06-06] MEDS ORDERED: TAMSULOSIN HCL 0.4 MG CAP PO ONE (02:27)
[2021-06-06] MEDS: ACETAMINOPHEN 325 MG TABLET (FP) PO PRN (03:39)
[2021-06-06] MEDS: ONDANSETRON 4 MG/2 ML VIAL IVPUSH SCH ×3 (05:48→21:50)
[2021-06-06] MEDS: MUPIROCIN CA 2% TOPICAL CREAM 15 GM TUBE TP SCH ×2 (05:48→14:00)
[2021-06-06] MEDS: NYSTATIN POWDER 100,000 UNITS/GM - 15 GM TOPICAL POWDER TP SCH ×2 (05:48→14:00)
[2021-06-06 07:24] LABS: BASO % 0.4 % (0-2.0); EOS % 2.6 % (0-4.5); HEMATOCRIT 26.6 % (35.4-49); HEMOGLOBIN 8.7 GM/dL (11.7-16.9); LYMPH % 7.4 % (8-40); MCH 29.4 pg (25.7-33.7); MCHC 32.7 g/dl (32.0-35.9); MEAN CELL VOLUME 89.9 fl (80-96); MEAN PLT VOLUME 7.9 fl (7.5-11.1); MONO % 12.2 % (3.8-10.2); NEUT % 77.4 % (42.8-82.8); PLATELET COUNT 283 10^3/uL (134-434); RBC 2.96 M/mm3 (4.00-5.60); WHITE BLOOD COUNT 11.7 K/mm3 (4.0-10.0)
[2021-06-06 07:54] LABS: CALCIUM 7.8 mg/dL (8.5-10.1)
[2021-06-06 07:55] LABS: BLOOD UREA NITROGEN 21.2 mg/dL (7-18)
[2021-06-06 07:57] LABS: CREATININE 0.7 mg/dL (0.55-1.3)
[2021-06-06] MEDS: TAMSULOSIN HCL 0.4 MG CAP PO SCH (10:51)
[2021-06-06] MEDS: PANTOPRAZOLE SODIUM 40 MG VIAL IVPUSH SCH ×2 (10:51→21:51)
[2021-06-06] MEDS: LISINOPRIL 5 MG TABLET PO SCH (10:52)
[2021-06-06] MEDS: ASPIRIN 81 MG CHEWABLE TABLETS PO SCH (10:52)
[2021-06-06] MEDS: ALLOPURINOL 100 MG TABLET (FP) PO SCH (10:52)
[2021-06-06] MEDS: SULFAMETHOXAZOLE/TRIMETHOPRIM 800MG/160MG D.S. TABLET PO SCH ×2 (10:52→21:50)
[2021-06-06] MEDS: APIXABAN 5 MG TABLET PO SCH ×2 (10:52→21:51)
[2021-06-06] MEDS: COLCHICINE 0.6 MG TAB PO SCH ×2 (10:52→21:50)
[2021-06-06] MEDS: RANOLAZINE E.R. 500 MG TABLET (FP) PO SCH ×2 (10:52→21:51)
[2021-06-06] MEDS: ISOSORBIDE MONONITRATE 60 MG TAB.SR.24H (FP) PO SCH (10:52)
[2021-06-06] MEDS: FOLIC ACID 1 MG TABLET (FP) PO SCH (10:52)
[2021-06-06] MEDS: SUCRALFATE 1 GM TABLET (FP) PO SCH ×2 (10:52→22:00)
[2021-06-07] MEDS: MUPIROCIN CA 2% TOPICAL CREAM 15 GM TUBE TP SCH ×4 (01:58→21:25)
[2021-06-07] MEDS: POLYETHYLENE GLYCOL (HEALTHYLAX) 3350 17 GM PACKET PO SCH ×2 (02:01→21:25)
[2021-06-07] MEDS: NYSTATIN POWDER 100,000 UNITS/GM - 15 GM TOPICAL POWDER TP SCH ×4 (02:02→21:24)
[2021-06-07] MEDS: ONDANSETRON 4 MG/2 ML VIAL IVPUSH SCH ×3 (06:43→21:21)
[2021-06-07 08:07] LABS: BASO % 0.6 % (0-2.0); EOS % 3.6 % (0-4.5); HEMATOCRIT 24.6 % (35.4-49); HEMOGLOBIN 8.2 GM/dL (11.7-16.9); LYMPH % 5.9 % (8-40); MCH 29.3 pg (25.7-33.7); MCHC 33.3 g/dl (32.0-35.9); NEUT % 77.9 % (42.8-82.8); PLATELET COUNT 259 10^3/uL (134-434); RBC 2.79 M/mm3 (4.00-5.60); RDW 16.2 % (11.9-15.9); WHITE BLOOD COUNT 10.7 K/mm3 (4.0-10.0)
[2021-06-07 08:27] LABS: CALCIUM 7.7 mg/dL (8.5-10.1)
[2021-06-07 08:28] LABS: BLOOD UREA NITROGEN 21.9 mg/dL (7-18)
[2021-06-07] MEDS ORDERED: TAMSULOSIN HCL 0.4 MG CAP PO SCH (08:30)
[2021-06-07 08:31] LABS: CREATININE 0.7 mg/dL (0.55-1.3)
[2021-06-07] MEDS: ISOSORBIDE MONONITRATE 60 MG TAB.SR.24H (FP) PO SCH (09:59)
[2021-06-07] MEDS: COLCHICINE 0.6 MG TAB PO SCH ×2 (09:59→21:21)
[2021-06-07] MEDS: ASPIRIN 81 MG CHEWABLE TABLETS PO SCH (09:59)
[2021-06-07] MEDS: LISINOPRIL 5 MG TABLET PO SCH (10:00)
[2021-06-07] MEDS: SULFAMETHOXAZOLE/TRIMETHOPRIM 800MG/160MG D.S. TABLET PO SCH ×2 (10:00→21:21)
[2021-06-07] MEDS: PANTOPRAZOLE SODIUM 40 MG VIAL IVPUSH SCH ×2 (10:00→21:21)
[2021-06-07] MEDS: ALLOPURINOL 100 MG TABLET (FP) PO SCH (10:00)
[2021-06-07] MEDS: SUCRALFATE 1 GM TABLET (FP) PO SCH ×2 (10:00→21:22)
[2021-06-07] MEDS: RANOLAZINE E.R. 500 MG TABLET (FP) PO SCH ×2 (10:00→21:21)
[2021-06-07] MEDS: FOLIC ACID 1 MG TABLET (FP) PO SCH (10:00)
[2021-06-07] MEDS: TAMSULOSIN HCL 0.4 MG CAP PO SCH (10:01)
[2021-06-07] MEDS: APIXABAN 5 MG TABLET PO SCH ×2 (12:43→22:34)
[2021-06-07] MEDS: ACETAMINOPHEN 325 MG TABLET (FP) PO PRN ×2 (16:48→21:22)
[2021-06-07] MEDS: MELATONIN 5 MG TABLETS PO PRN (21:22)
[2021-06-08] MEDS: DEXTROSE 5%-0.45% SALINE 1,000 ML IV SCH (06:07)
[2021-06-08] MEDS: ONDANSETRON 4 MG/2 ML VIAL IVPUSH SCH ×3 (06:08→22:00)
[2021-06-08] MEDS: NYSTATIN POWDER 100,000 UNITS/GM - 15 GM TOPICAL POWDER TP SCH ×2 (06:09→13:54)
[2021-06-08] MEDS: MUPIROCIN CA 2% TOPICAL CREAM 15 GM TUBE TP SCH ×2 (06:09→13:53)
[2021-06-08 08:23] LABS: BASO % 0.6 % (0-2.0); EOS % 4.1 % (0-4.5); HEMATOCRIT 23.1 % (35.4-49); HEMOGLOBIN 7.5 GM/dL (11.7-16.9); LYMPH % 8.5 % (8-40); MCH 28.9 pg (25.7-33.7); MCHC 32.4 g/dl (32.0-35.9); MEAN CELL VOLUME 89.1 fl (80-96); MEAN PLT VOLUME 8.2 fl (7.5-11.1); MONO % 14.8 % (3.8-10.2); PLATELET COUNT 255 10^3/uL (134-434); RDW 16.1 % (11.9-15.9); WHITE BLOOD COUNT 9.4 K/mm3 (4.0-10.0)
[2021-06-08 08:40] LABS: CALCIUM 7.7 mg/dL (8.5-10.1)
[2021-06-08 08:41] LABS: BLOOD UREA NITROGEN 24.3 mg/dL (7-18)
[2021-06-08 08:44] LABS: CREATININE 0.8 mg/dL (0.55-1.3)
[2021-06-08] MEDS: SULFAMETHOXAZOLE/TRIMETHOPRIM 800MG/160MG D.S. TABLET PO SCH ×2 (09:51→21:42)
[2021-06-08] MEDS: PANTOPRAZOLE SODIUM 40 MG VIAL IVPUSH SCH ×2 (09:51→22:00)
[2021-06-08] MEDS: ASPIRIN 81 MG CHEWABLE TABLETS PO SCH (09:51)
[2021-06-08] MEDS: COLCHICINE 0.6 MG TAB PO SCH ×2 (09:51→21:42)
[2021-06-08] MEDS: ALLOPURINOL 100 MG TABLET (FP) PO SCH (09:51)
[2021-06-08] MEDS: ISOSORBIDE MONONITRATE 60 MG TAB.SR.24H (FP) PO SCH (09:51)
[2021-06-08] MEDS: RANOLAZINE E.R. 500 MG TABLET (FP) PO SCH ×2 (09:51→21:42)
[2021-06-08] MEDS: TAMSULOSIN HCL 0.4 MG CAP PO SCH (09:51)
[2021-06-08] MEDS: SUCRALFATE 1 GM TABLET (FP) PO SCH ×2 (09:51→21:42)
[2021-06-08] MEDS: FOLIC ACID 1 MG TABLET (FP) PO SCH (09:52)
[2021-06-08] MEDS: APIXABAN 5 MG TABLET PO SCH ×2 (10:48→22:00)
[2021-06-08] MEDS: ACETAMINOPHEN 325 MG TABLET (FP) PO PRN (21:41)
[2021-06-08] MEDS: MELATONIN 5 MG TABLETS PO PRN (21:42)
[2021-06-09] MEDS: MUPIROCIN CA 2% TOPICAL CREAM 15 GM TUBE TP SCH ×4 (04:15→22:02)
[2021-06-09] MEDS: POLYETHYLENE GLYCOL (HEALTHYLAX) 3350 17 GM PACKET PO SCH (04:17)
[2021-06-09] MEDS: ACETAMINOPHEN 325 MG TABLET (FP) PO PRN ×2 (04:19→21:47)
[2021-06-09] MEDS: NYSTATIN POWDER 100,000 UNITS/GM - 15 GM TOPICAL POWDER TP SCH ×3 (07:47→21:43)
[2021-06-09] MEDS: ONDANSETRON 4 MG/2 ML VIAL IVPUSH SCH ×3 (07:49→21:43)
[2021-06-09] MEDS: SULFAMETHOXAZOLE/TRIMETHOPRIM 800MG/160MG D.S. TABLET PO SCH ×2 (09:40→22:02)
[2021-06-09] MEDS: FOLIC ACID 1 MG TABLET (FP) PO SCH (09:40)
[2021-06-09] MEDS: ISOSORBIDE MONONITRATE 60 MG TAB.SR.24H (FP) PO SCH (09:40)
[2021-06-09] MEDS: PANTOPRAZOLE SODIUM 40 MG VIAL IVPUSH SCH ×2 (09:40→21:42)
[2021-06-09] MEDS: TAMSULOSIN HCL 0.4 MG CAP PO SCH (09:41)
[2021-06-09] MEDS: ASPIRIN 81 MG CHEWABLE TABLETS PO SCH (09:41)
[2021-06-09] MEDS: APIXABAN 5 MG TABLET PO SCH ×2 (09:41→21:48)
[2021-06-09] MEDS: ALLOPURINOL 100 MG TABLET (FP) PO SCH (09:41)
[2021-06-09] MEDS: COLCHICINE 0.6 MG TAB PO SCH ×2 (09:41→21:48)
[2021-06-09] MEDS: SUCRALFATE 1 GM TABLET (FP) PO SCH ×2 (09:41→22:01)
[2021-06-09] MEDS: RANOLAZINE E.R. 500 MG TABLET (FP) PO SCH ×2 (09:41→21:47)
[2021-06-09] MEDS ORDERED: LOPERAMIDE HCL 2 MG CAPSULE PO ONE (15:45)
[2021-06-09] MEDS: NITROGLYCERIN SUBLINGUAL 1/150 0.4 MG TAB SL PRN (19:18)
[2021-06-09] MEDS: diazePAM 5 MG TABLET PO SCH (21:50)
[2021-06-10] MEDS: MUPIROCIN CA 2% TOPICAL CREAM 15 GM TUBE TP SCH ×3 (06:51→21:38)
[2021-06-10] MEDS: ONDANSETRON 4 MG/2 ML VIAL IVPUSH SCH ×3 (06:52→21:33)
[2021-06-10] MEDS: NYSTATIN POWDER 100,000 UNITS/GM - 15 GM TOPICAL POWDER TP SCH ×3 (06:52→21:39)
[2021-06-10 07:14] LABS: BASO % 0.7 % (0-2.0); EOS % 5.1 % (0-4.5); HEMATOCRIT 30.5 % (35.4-49); HEMOGLOBIN 10.3 GM/dL (11.7-16.9); LYMPH % 7.7 % (8-40); MCH 28.9 pg (25.7-33.7); MCHC 33.7 g/dl (32.0-35.9); MEAN CELL VOLUME 85.9 fl (80-96); MEAN PLT VOLUME 7.7 fl (7.5-11.1); MONO % 16.8 % (3.8-10.2); NEUT % 69.7 % (42.8-82.8); PLATELET COUNT 242 10^3/uL (134-434); RBC 3.55 M/mm3 (4.00-5.60); RDW 16.7 % (11.9-15.9); WHITE BLOOD COUNT 9.1 K/mm3 (4.0-10.0)
[2021-06-10 07:32] LABS: CALCIUM 8.3 mg/dL (8.5-10.1)
[2021-06-10 07:33] LABS: BLOOD UREA NITROGEN 24.3 mg/dL (7-18)
[2021-06-10 07:36] LABS: CREATININE 0.9 mg/dL (0.55-1.3)
[2021-06-10] MEDS: SUCRALFATE 1 GM TABLET (FP) PO SCH ×2 (10:44→21:33)
[2021-06-10] MEDS: TAMSULOSIN HCL 0.4 MG CAP PO SCH (10:45)
[2021-06-10] MEDS: APIXABAN 5 MG TABLET PO SCH ×2 (10:45→21:33)
[2021-06-10] MEDS: RANOLAZINE E.R. 500 MG TABLET (FP) PO SCH ×2 (10:45→21:33)
[2021-06-10] MEDS: COLCHICINE 0.6 MG TAB PO SCH ×2 (10:45→21:33)
[2021-06-10] MEDS: ISOSORBIDE MONONITRATE 60 MG TAB.SR.24H (FP) PO SCH (10:45)
[2021-06-10] MEDS: diazePAM 5 MG TABLET PO SCH (10:45)
[2021-06-10] MEDS: SULFAMETHOXAZOLE/TRIMETHOPRIM 800MG/160MG D.S. TABLET PO SCH ×2 (10:45→21:33)
[2021-06-10] MEDS: ALLOPURINOL 100 MG TABLET (FP) PO SCH (10:45)
[2021-06-10] MEDS: ACETAMINOPHEN 325 MG TABLET (FP) PO PRN (10:45)
[2021-06-10] MEDS: PANTOPRAZOLE SODIUM 40 MG VIAL IVPUSH SCH ×2 (10:46→21:34)
[2021-06-10] MEDS: FOLIC ACID 1 MG TABLET (FP) PO SCH (10:46)
[2021-06-10] MEDS: ASPIRIN 81 MG CHEWABLE TABLETS PO SCH (10:47)
[2021-06-10] MEDS: MELATONIN 5 MG TABLETS PO PRN (21:33)
[2021-06-11] MEDS: ONDANSETRON 4 MG/2 ML VIAL IVPUSH SCH ×3 (05:15→21:21)
[2021-06-11] MEDS: NYSTATIN POWDER 100,000 UNITS/GM - 15 GM TOPICAL POWDER TP SCH ×3 (05:19→21:29)
[2021-06-11] MEDS: MUPIROCIN CA 2% TOPICAL CREAM 15 GM TUBE TP SCH ×3 (05:28→21:29)
[2021-06-11 07:48] LABS: BASO % 0.6 % (0-2.0); EOS % 6.5 % (0-4.5); HEMATOCRIT 29.9 % (35.4-49); HEMOGLOBIN 10.2 GM/dL (11.7-16.9); LYMPH % 7.1 % (8-40); MCH 29.4 pg (25.7-33.7); MCHC 34.1 g/dl (32.0-35.9); MEAN CELL VOLUME 86.2 fl (80-96); MEAN PLT VOLUME 8.2 fl (7.5-11.1); MONO % 15.3 % (3.8-10.2); NEUT % 70.5 % (42.8-82.8); PLATELET COUNT 216 10^3/uL (134-434); RBC 3.47 M/mm3 (4.00-5.60); RDW 16.8 % (11.9-15.9); WHITE BLOOD COUNT 9.7 K/mm3 (4.0-10.0)
[2021-06-11 08:04] LABS: CALCIUM 7.9 mg/dL (8.5-10.1)
[2021-06-11 08:05] LABS: BLOOD UREA NITROGEN 21.9 mg/dL (7-18)
[2021-06-11 08:08] LABS: CREATININE 0.8 mg/dL (0.55-1.3)
[2021-06-11] MEDS: ALLOPURINOL 100 MG TABLET (FP) PO SCH (10:30)
[2021-06-11] MEDS: TAMSULOSIN HCL 0.4 MG CAP PO SCH (10:32)
[2021-06-11] MEDS: ASPIRIN 81 MG CHEWABLE TABLETS PO SCH (10:32)
[2021-06-11] MEDS: RANOLAZINE E.R. 500 MG TABLET (FP) PO SCH ×2 (10:33→21:22)
[2021-06-11] MEDS: SUCRALFATE 1 GM TABLET (FP) PO SCH ×2 (10:33→21:21)
[2021-06-11] MEDS: PANTOPRAZOLE SODIUM 40 MG VIAL IVPUSH SCH ×2 (10:34→21:25)
[2021-06-11] MEDS: FOLIC ACID 1 MG TABLET (FP) PO SCH (10:34)
[2021-06-11] MEDS: APIXABAN 5 MG TABLET PO SCH ×2 (10:34→21:22)
[2021-06-11] MEDS: COLCHICINE 0.6 MG TAB PO SCH ×2 (10:35→21:21)
[2021-06-11] MEDS: SULFAMETHOXAZOLE/TRIMETHOPRIM 800MG/160MG D.S. TABLET PO SCH ×2 (10:38→21:22)
[2021-06-11] MEDS: ISOSORBIDE MONONITRATE 60 MG TAB.SR.24H (FP) PO SCH (14:11)
[2021-06-11] MEDS: diazePAM 5 MG TABLET PO SCH (14:12)
[2021-06-11] MEDS: ACETAMINOPHEN 325 MG TABLET (FP) PO PRN (17:04)
[2021-06-11] MEDS: MELATONIN 5 MG TABLETS PO PRN (21:22)
[2021-06-12] MEDS: ACETAMINOPHEN 325 MG TABLET (FP) PO PRN (04:58)
[2021-06-12] MEDS: NYSTATIN POWDER 100,000 UNITS/GM - 15 GM TOPICAL POWDER TP SCH ×3 (06:02→22:12)
[2021-06-12] MEDS: MUPIROCIN CA 2% TOPICAL CREAM 15 GM TUBE TP SCH ×3 (06:03→22:11)
[2021-06-12] MEDS: TAMSULOSIN HCL 0.4 MG CAP PO SCH (08:07)
[2021-06-12] MEDS: ASPIRIN 81 MG CHEWABLE TABLETS PO SCH (09:56)
[2021-06-12] MEDS: SUCRALFATE 1 GM TABLET (FP) PO SCH ×2 (09:57→22:11)
[2021-06-12] MEDS: FOLIC ACID 1 MG TABLET (FP) PO SCH (09:57)
[2021-06-12] MEDS: ISOSORBIDE MONONITRATE 60 MG TAB.SR.24H (FP) PO SCH (09:57)
[2021-06-12] MEDS: ALLOPURINOL 100 MG TABLET (FP) PO SCH (09:57)
[2021-06-12] MEDS: COLCHICINE 0.6 MG TAB PO SCH ×2 (09:57→22:11)
[2021-06-12] MEDS: APIXABAN 5 MG TABLET PO SCH ×2 (09:57→22:11)
[2021-06-12] MEDS: RANOLAZINE E.R. 500 MG TABLET (FP) PO SCH ×2 (09:57→22:11)
[2021-06-12] MEDS: SULFAMETHOXAZOLE/TRIMETHOPRIM 800MG/160MG D.S. TABLET PO SCH ×2 (09:57→22:11)
[2021-06-12] MEDS: PANTOPRAZOLE 40 MG TABLET PO SCH (09:57)
[2021-06-13] MEDS: ACETAMINOPHEN 325 MG TABLET (FP) PO PRN (01:19)
[2021-06-13] MEDS: NYSTATIN POWDER 100,000 UNITS/GM - 15 GM TOPICAL POWDER TP SCH ×2 (06:05→15:01)
[2021-06-13] MEDS: MUPIROCIN CA 2% TOPICAL CREAM 15 GM TUBE TP SCH ×2 (06:05→15:01)
[2021-06-13] MEDS: TAMSULOSIN HCL 0.4 MG CAP PO SCH (08:15)
[2021-06-13] MEDS: SULFAMETHOXAZOLE/TRIMETHOPRIM 800MG/160MG D.S. TABLET PO SCH (09:26)
[2021-06-13] MEDS: ALLOPURINOL 100 MG TABLET (FP) PO SCH (09:27)
[2021-06-13] MEDS: APIXABAN 5 MG TABLET PO SCH (09:27)
[2021-06-13] MEDS: RANOLAZINE E.R. 500 MG TABLET (FP) PO SCH (09:27)
[2021-06-13] MEDS: PANTOPRAZOLE 40 MG TABLET PO SCH (09:27)
[2021-06-13] MEDS: COLCHICINE 0.6 MG TAB PO SCH (09:27)
[2021-06-13] MEDS: ASPIRIN 81 MG CHEWABLE TABLETS PO SCH (09:27)
[2021-06-13] MEDS: ISOSORBIDE MONONITRATE 60 MG TAB.SR.24H (FP) PO SCH (09:27)
[2021-06-13] MEDS: SUCRALFATE 1 GM TABLET (FP) PO SCH (09:27)
[2021-06-13] MEDS: FOLIC ACID 1 MG TABLET (FP) PO SCH (09:27)
[2021-06-13 15:05] VITALS: BP 122/68; PULSE 82; TEMP 98.3
[2021-06-14 09:30] LABS: SARS-CoV-2 NAA Not Detected (Not Detected)
== END 2021-06-13 18:10 | DRG 436 ==
LOC: JER 12:49 → JERBED 18:31 → INTOOBSV 18:31 → J4W 06-01 21:59 → OBSVTOIN 06-02 09:12
PROVIDERS: ADMIT Internal Medicine; ATTEND Internal Medicine
PROC: 30233N1 Transfusion of Nonautologous Red Blood Cells into Peripheral Vein, Percutaneous Approach (ICD-10-PCS; principal; 2021-06-08)
DX: C78.7 Secondary malignant neoplasm of liver and intrahepatic bile duct (principal); R64 Cachexia; C25.9 Malignant neoplasm of pancreas, unspecified; N17.9 Acute kidney failure, unspecified; C78.00 Secondary malignant neoplasm of unspecified lung; C79.51 Secondary malignant neoplasm of bone; I50.32 Chronic diastolic (congestive) heart failure; I25.10 Atherosclerotic heart disease of native coronary artery without angina pectoris; Z95.1 Presence of aortocoronary bypass graft; I48.91 Unspecified atrial fibrillation; Z79.01 Long term (current) use of anticoagulants; I11.0 Hypertensive heart disease with heart failure; E78.5 Hyperlipidemia, unspecified; I73.9 Peripheral vascular disease, unspecified; C61 Malignant neoplasm of prostate; R07.89 Other chest pain; Z68.21 Body mass index [BMI] 21.0-21.9, adult; N40.0 Benign prostatic hyperplasia without lower urinary tract symptoms; K59.00 Constipation, unspecified; R33.8 Other retention of urine; I44.7 Left bundle-branch block, unspecified
CPT/HCPCS: 36415; 36430; 36511; 71045-TC-FY; 80048; 80053; 81003; 83735; 84484; 85025; 85651; 86140; 86850; 86900; 86901; 86922; 87086; 93005; 93010; 97116-GP; 97161-GP; 99285-25; C9803; G0378; P9038; P9058; U0003; U0005

== ENCOUNTER 2021-06-16 08:01 | Inpatient (IN) | payer OTHER, MEDICARE ==
[2021-06-16] MEDS ORDERED: methaDONE HCL 10 MG TABLET ONE (09:05)
[2021-06-16] MEDS ORDERED: PIPERACILLIN/TAZOB 3.375 GM 3.375 GM/50 ML BAG IVPB ONE (09:06)
[2021-06-16] MEDS ORDERED: SODIUM CHLORIDE 0.9% 500 ML INFUS.BAG IV ONE ×2 (09:26→10:16)
[2021-06-16] MEDS ORDERED: ONDANSETRON 4 MG/2 ML VIAL IVPUSH ONE (09:26)
[2021-06-16] MEDS ORDERED: ONDANSETRON 4 MG/2 ML VIAL ONE (09:29)
[2021-06-16 09:31] LABS: HEMOGLOBIN 10.6 GM/dL (11.7-16.9); MCH 28.8 pg (25.7-33.7); MCHC 33.2 g/dl (32.0-35.9); MEAN CELL VOLUME 86.8 fl (80-96); MEAN PLT VOLUME 8.8 fl (7.5-11.1); PLATELET COUNT 117 10^3/uL (134-434); RBC 3.69 M/mm3 (4.00-5.60); RDW 17.6 % (11.9-15.9); WHITE BLOOD COUNT 15.3 K/mm3 (4.0-10.0)
[2021-06-16 09:41] LABS: INR 3.38 (0.83-1.09); PROTHROMBIN TIME (PATIENT) 39.4 SEC (9.7-13.0)
[2021-06-16 09:44] LABS: ACTIVATED PTT 41.9 SECONDS (25.2-36.5)
[2021-06-16 09:53] LABS: CALCIUM 8.9 mg/dL (8.5-10.1); MAGNESIUM 1.8 mg/dL (1.8-2.4)
[2021-06-16 09:55] LABS: CREATININE 1.6 mg/dL (0.55-1.3)
[2021-06-16 09:57] LABS: BILIRUBIN,TOTAL 1.4 mg/dL (0.2-1); TOT PROT 5.5 g/dl (6.4-8.2)
[2021-06-16 09:59] LABS: BLOOD UREA NITROGEN 62.2 mg/dL (7-18)
[2021-06-16 10:13] LABS: LACTIC ACID 3.5 mmol/L (0.4-2.0)
[2021-06-16] MEDS ORDERED: PIPERACILLIN/TAZOB 4.5 GM 4.5 GM in DEXTROSE 5%-WATER - 100 ML IVPB ONE (10:13)
[2021-06-16] MEDS ORDERED: PIPERACILLIN/TAZOB 4.5 GM 4.5 GM/100 ML BAG IVPB ONE (10:22)
[2021-06-16 10:37] LABS: PH,URINE 5.5 (5.0-8.0); URINE APPEARANCE CLEAR; URINE BILIRUBIN 2+ (NEGATIVE); URINE COLOR DK YELLOW; URINE GLUCOSE (UA) NEGATIVE (NEGATIVE); URINE KETONE NEGATIVE (NEGATIVE); URINE LEUK ESTERASE 1+ (NEGATIVE); URINE NITRITE NEGATIVE (NEGATIVE); URINE PROTEIN 1+ (NEGATIVE)
[2021-06-16 10:48] LABS: EPI CELLS FEW /uL (0-25.1); URINE RBC 0-3 /uL (0-23.9)
[2021-06-16] MEDS ORDERED: PANTOPRAZOLE SODIUM 40 MG VIAL IVPB ONE (11:38)
[2021-06-16] MEDS ORDERED: PANTOPRAZOLE SODIUM 80 MG/200 ML BAG IVPB ONE (11:41)
[2021-06-16 12:17] LABS: LACTIC ACID 2.9 mmol/L (0.4-2.0)
[2021-06-16 12:52] LABS: ANISOCYTOSIS 1+; MACROCYTOSIS 0; OVALOCYTE 2+; TEAR DROP CELLS 1+
[2021-06-16 22:27] VITALS: BMI 20.3
[2021-06-16] MEDS ORDERED: NITROGLYCERIN SUBLINGUAL 1/150 0.4 MG TAB SL PRN (23:47)
[2021-06-17] MEDS: PANTOPRAZOLE SODIUM 40 MG VIAL IVPUSH SCH ×3 (00:44→21:32)
[2021-06-17] MEDS: SUCRALFATE 1 GM TABLET (FP) PO SCH ×3 (00:44→21:05)
[2021-06-17] MEDS: SULFAMETHOXAZOLE/TRIMETHOPRIM 800MG/160MG D.S. TABLET PO SCH ×2 (00:44→17:28)
[2021-06-17] MEDS: RANOLAZINE E.R. 500 MG TABLET (FP) PO SCH ×3 (00:44→21:05)
[2021-06-17] MEDS: ONDANSETRON 4 MG TABLET PO SCH ×6 (00:45→21:34)
[2021-06-17] MEDS: DEXTROSE 5%-0.45% SALINE 1,000 ML IV SCH (00:48)
[2021-06-17] MEDS ORDERED: PIPERACILLIN/TAZOBACTAM 3.375 GM VIAL IVPB ONE ×2 (11:18→17:30)
[2021-06-17] MEDS ORDERED: DEXTROSE 5%-WATER - 50 ML IVPB ONE ×2 (11:19→17:30)
[2021-06-17] MEDS: PIPERACILLIN/TAZOB 3.375 GM 3.375 GM in DEXTROSE 5%-WATER - 50 ML IVPB SCH ×2 (11:27→17:33)
[2021-06-17] MEDS: FOLIC ACID 1 MG TABLET (FP) PO SCH (11:28)
[2021-06-17] MEDS: ALLOPURINOL 100 MG TABLET (FP) PO SCH (11:29)
[2021-06-17] MEDS: ISOSORBIDE MONONITRATE 60 MG TAB.SR.24H (FP) PO SCH (11:29)
[2021-06-17 16:34] LABS: HEMATOCRIT 29.9 % (35.4-49); HEMOGLOBIN 9.7 GM/dL (11.7-16.9); MCH 28.1 pg (25.7-33.7); MCHC 32.4 g/dl (32.0-35.9); MEAN CELL VOLUME 86.5 fl (80-96); MEAN PLT VOLUME 10.4 fl (7.5-11.1); PLATELET COUNT 60 10^3/uL (134-434); RBC 3.46 M/mm3 (4.00-5.60); RDW 17.3 % (11.9-15.9); WHITE BLOOD COUNT 11.7 K/mm3 (4.0-10.0)
[2021-06-17 16:50] LABS: CALCIUM 8.3 mg/dL (8.5-10.1)
[2021-06-17 16:51] LABS: BLOOD UREA NITROGEN 74.1 mg/dL (7-18)
[2021-06-17 16:54] LABS: CREATININE 1.5 mg/dL (0.55-1.3)
[2021-06-17] MEDS ORDERED: ACETAMINOPHEN 1000 MG/100 ML BAG IVPB ONE (17:00)
[2021-06-17 17:38] LABS: ANISOCYTOSIS 1+; MACROCYTOSIS 1+; PLATELET ESTIMATE DECREASED
[2021-06-18] MEDS ORDERED: PIPERACILLIN/TAZOBACTAM 3.375 GM VIAL IVPB ONE ×3 (00:53→17:19)
[2021-06-18] MEDS ORDERED: DEXTROSE 5%-WATER - 50 ML IVPB ONE ×3 (00:54→17:19)
[2021-06-18] MEDS: DEXTROSE 5%-0.45% SALINE 1,000 ML IV SCH ×2 (01:06→20:42)
[2021-06-18] MEDS: ACETAMINOPHEN 325 MG TABLET (FP) PO PRN ×2 (01:06→12:10)
[2021-06-18] MEDS: PIPERACILLIN/TAZOB 3.375 GM 3.375 GM in DEXTROSE 5%-WATER - 50 ML IVPB SCH ×3 (01:54→17:36)
[2021-06-18] MEDS: ONDANSETRON 4 MG TABLET PO SCH (05:40)
[2021-06-18 10:08] LABS: BLOOD UREA NITROGEN 78.2 mg/dL (7-18)
[2021-06-18 10:10] LABS: HEMATOCRIT 28.4 % (35.4-49); HEMOGLOBIN 9.3 GM/dL (11.7-16.9); MCH 28.5 pg (25.7-33.7); MCHC 32.9 g/dl (32.0-35.9); MEAN CELL VOLUME 86.8 fl (80-96); MEAN PLT VOLUME 10.7 fl (7.5-11.1); PLATELET COUNT 42 10^3/uL (134-434); RBC 3.27 M/mm3 (4.00-5.60); RDW 17.7 % (11.9-15.9); WHITE BLOOD COUNT 12.1 K/mm3 (4.0-10.0)
[2021-06-18 10:11] LABS: CREATININE 1.5 mg/dL (0.55-1.3)
[2021-06-18 11:26] LABS: ANISOCYTOSIS 1+; MACROCYTOSIS 1+; OVALOCYTE 1+; PLATELET ESTIMATE DECREASED; TARGET CELLS 1+; TEAR DROP CELLS 1+
[2021-06-18] MEDS: PANTOPRAZOLE SODIUM 40 MG VIAL IVPUSH SCH ×2 (11:55→21:21)
[2021-06-18] MEDS: ALLOPURINOL 100 MG TABLET (FP) PO SCH (11:56)
[2021-06-18] MEDS: ISOSORBIDE MONONITRATE 60 MG TAB.SR.24H (FP) PO SCH (11:56)
[2021-06-18] MEDS: SUCRALFATE 1 GM TABLET (FP) PO SCH ×2 (11:56→21:22)
[2021-06-18] MEDS: RANOLAZINE E.R. 500 MG TABLET (FP) PO SCH ×2 (11:56→21:22)
[2021-06-18] MEDS: FOLIC ACID 1 MG TABLET (FP) PO SCH (11:56)
[2021-06-18] MEDS ORDERED: ALPRAZolam 1 MG TABLET PO PRN (15:25)
[2021-06-18] MEDS: ONDANSETRON 4 MG/2 ML VIAL IVPB SCH (17:36)
[2021-06-18] MEDS: morphine SULFATE 4 MG/ML VIAL IVPUSH PRN ×2 (18:09→21:28)
[2021-06-18] MEDS ORDERED: morphine SULFATE 4 MG/ML VIAL IVPUSH PRN (19:25)
[2021-06-19] MEDS ORDERED: PIPERACILLIN/TAZOBACTAM 3.375 GM VIAL IVPB ONE ×3 (01:35→18:10)
[2021-06-19] MEDS ORDERED: DEXTROSE 5%-WATER - 50 ML IVPB ONE ×3 (01:35→18:10)
[2021-06-19] MEDS: DEXTROSE 5%-0.45% SALINE 1,000 ML IV SCH (01:42)
[2021-06-19] MEDS: ONDANSETRON 4 MG/2 ML VIAL IVPB SCH ×3 (01:50→18:14)
[2021-06-19] MEDS: PIPERACILLIN/TAZOB 3.375 GM 3.375 GM in DEXTROSE 5%-WATER - 50 ML IVPB SCH ×3 (01:50→18:13)
[2021-06-19] MEDS: morphine SULFATE 4 MG/ML VIAL IVPUSH PRN ×4 (05:14→23:42)
[2021-06-19] MEDS: PANTOPRAZOLE SODIUM 40 MG VIAL IVPUSH SCH ×2 (11:10→23:44)
[2021-06-19] MEDS: ALLOPURINOL 100 MG TABLET (FP) PO SCH (11:11)
[2021-06-19] MEDS: SUCRALFATE 1 GM TABLET (FP) PO SCH ×2 (11:11→23:43)
[2021-06-19] MEDS: RANOLAZINE E.R. 500 MG TABLET (FP) PO SCH ×2 (11:11→23:44)
[2021-06-19] MEDS: ISOSORBIDE MONONITRATE 60 MG TAB.SR.24H (FP) PO SCH (11:11)
[2021-06-19] MEDS: FOLIC ACID 1 MG TABLET (FP) PO SCH (11:11)
[2021-06-20 00:51] VITALS: BP 77/41; PULSE 96; TEMP 97.5
== END 2021-06-20 01:25 | disposition expired | DRG 872 ==
LOC: JER 08:01 → JERBED 09:32 → J4S 22:48
PROVIDERS: ADMIT Internal Medicine; ATTEND Internal Medicine
DX: A41.51 Sepsis due to Escherichia coli [E. coli] (principal); C78.7 Secondary malignant neoplasm of liver and intrahepatic bile duct; C25.9 Malignant neoplasm of pancreas, unspecified; C78.00 Secondary malignant neoplasm of unspecified lung; C79.51 Secondary malignant neoplasm of bone; I50.32 Chronic diastolic (congestive) heart failure; N17.9 Acute kidney failure, unspecified; I13.0 Hypertensive heart and chronic kidney disease with heart failure and stage 1 through stage 4 chronic kidney disease, or unspecified chronic kidney disease; R64 Cachexia; I25.10 Atherosclerotic heart disease of native coronary artery without angina pectoris; I48.91 Unspecified atrial fibrillation; C61 Malignant neoplasm of prostate; I11.0 Hypertensive heart disease with heart failure; R11.2 Nausea with vomiting, unspecified; D69.6 Thrombocytopenia, unspecified; R33.9 Retention of urine, unspecified; K21.9 Gastro-esophageal reflux disease without esophagitis; N40.0 Benign prostatic hyperplasia without lower urinary tract symptoms; N18.9 Chronic kidney disease, unspecified; Z95.1 Presence of aortocoronary bypass graft; E78.5 Hyperlipidemia, unspecified
CPT/HCPCS: 36415; 71045-TC-FY; 71046-TC-FY; 71250-TC; 74176-TC; 80048; 80053; 81003; 82962; 83605; 83690; 83735; 84484; 85025; 85610; 85730; 86850; 86900; 86901; 87040; 87086; 87186; 93005; 93010; 99285-25; C9803; U0003; U0005